=== PATIENT | female | born 1990 | race Caucasian/White ===

== ENCOUNTER 2020-08-14 10:50 | Emergency (ER) | payer MEDICAID, SELFPAY ==
[2020-08-14 10:51] VITALS: BP 157/111; PULSE 110; RESP 22; TEMP 36.4; O2SAT 98; BMI 30.2
--- NOTE | 2020-08-14 11:26 | ED.VISSUMM ---
- ER Visit Summary Date of Service: 08/14/20 Chief Complaint: Bartholin abscess History of Present Illness: The patient is a 29 F who presents with a Bartholin abscess that has been getting worse over the past 6 days. Patient states she has a history of these. Patient states she has been trying to get it to drain at home without any improvement. Patient describes her pain as sharp and burning. Patient states it is over the right labia. Patient states it is worse with sitting and with walking. Patient denies any fevers or chills. Patient denies any discharge or drainage. Patient denies any dysuria or hematuria. Physical Examination: Vital signs are stable. Patient is afebrile. Patient is in no acute distress. Oral mucosa is pink and moist. Neck is supple. Trachea is midline. There is no JVD noted. Heart was regular rate and rhythm. Lungs are clear and equal bilaterally. Abdomen is soft. Bowel sounds are normal. There is no tenderness. There is no rebound or guarding noted. Skin is warm dry. Cranial nerves II through XII are intact. There are no focal motor or sensory deficits noted. Extremities are intact. There is no calf tenderness or edema. Emergency Department Course and Treatment: Patient was given a dose of [place] and Keflex here. The right labia was anesthetized 1% lidocaine locally. A linear incision was made using a #11 blade scalpel. Copious amounts of purulent drainage was expressed. Patient tolerated the procedure well. Patient was instructed to use warm sitz baths. Patient was instructed to follow-up with her primary care physician in 5 to 7 days. Patient was given a prescription for Keflex. Patient understood and was agreeable with the plan. All questions were answered. Disposition: Discharge home Impression: 1. Bartholin abscess This note was generated with [employer] dictation software. It may contain incorrect words, spelling, and punctuation that were not noted in review of the chart prior to signing ED Disposition - Plan for ED Patient: Disposition: Home or Assisted Living Diagnosis: Abscess of right Bartholin's gland Instructions: ED Abscess Incision And Drainage Prescriptions: Cephalexin [Keflex] 500 mg PO Q6 #40 cap Transmission Status: Received by [id number] Referrals: Douglas Maria MD [STAFF PHYSICIAN] - 5-7 Days
[2020-08-14] MEDS: HYDROcodone Bitartrate/Apap 5/325 Tablet PO (11:36)
[2020-08-14] MEDS: Cephalexin 500 MG Capsule PO (11:37)
[2020-08-14] MEDS: Lidocaine 1% (20 ml mdv) 20 ML Vial INFILT (11:37)
[2020-08-14 13:40] VITALS: BP 119/90; PULSE 100; RESP 16
== END 2020-08-14 13:43 | disposition home or self-care (01) ==
PROVIDERS: Emergency Provider Emergency Medicine
DX: N75.1 Abscess of Bartholin's gland (principal); Z72.0 Tobacco use
CPT/HCPCS: 56420; 10060; 99283

== ENCOUNTER 2020-11-13 14:00 | Emergency (ER) | payer MEDICAID, SELFPAY ==
[2020-11-13 14:01] VITALS: BP 126/84; PULSE 145; RESP 18; TEMP 35.7; O2SAT 100; BMI 30.2
--- NOTE | 2020-11-13 14:13 | EDS_ITS ---
HPI History of Present Illness Chief Complaint: Abscess Detail of Chief Complaint: Bartholin cyst abscess Informant: patient Onset/Context/Timing Worsened by: Pressure and movement Narrative Narrative: Patient presents to the emergency department complaint of pain to the left labia. Patient has history of Bartholin cyst of the right side that has required drainage. Patient has never had an issue with the left side. Patient denies any fever or chills or sweats. Patient has otherwise no medical history. Prior similar symptoms: Yes PFSH PFSH Home Medications cephalexin 500 mg PO Q6 #40 cap 08/14/20 [Rx Last Taken Unknown] clindamycin HCl 300 mg PO 4X/DAY #80 capsule 11/13/20 [Rx Last Taken Unknown] Allergy/AdvReac Type Severity Reaction Status Date / Time BEES Allergy Anaphylaxis Uncoded 11/13/20 14:01 Surgical History (Updated 11/13/20 @ 14:28 by Maribell Sarah) History of partial hysterectomy Hx of tonsillectomy Social History Smoking Status: Current every day smoker ROS ROS ED Constitutional Constitutional ED: Reports systems reviewed and no addt'l complaints, except as documented; Denies body ache(s), change in weight or chills Eyes Eyes: Denies acute decrease in peripheral vision, change in vision, double vision or loss of vision ENT ENT ED: Reports none; Denies ear pain, lip swelling, loss taste/smell, neck pain, otalgia or sore throat Cardiovascular Cardiovascular: Reports none; Denies abdominal pain, chest pain with activity, leg edema, lightheadedness, palpitations, rapid heart rate or syncope Respiratory/Chest Respiratory/Chest: Reports none; Denies change in mental status, dry cough, dys pnea, hemoptysis, shortness of breath at rest or shortness of breath with exertion Gastrointestinal Gastrointestinal: Reports none; Denies abdominal pain, change in stool character, diarrhea, hematemesis, hematochezia, melena, rectal bleeding or vomiting Genitourinary Genitourinary ED: Reports none and other Details: Patient complaining of Bartholin cyst to left labia ; Denies abdominal discomfort, anuria, dysuria, genital pain or polyuria Musculoskeletal Musculoskeletal: Reports none; Denies arthralgias, back pain, difficulty walking, extremity pain, muscle weakness or myalgias Integumentary Reports none; Denies abscess or rash Neurologic Neurologic: Reports none; Denies abnormal gait, confusion, focal weakness, frequent falls, headache(s), loss of vision, numbness, paresthesias, radicular pain, vertigo or weakness Psychiatric Psychiatric: Reports systems reviewed and no addt'l complaints, except as documented and none; Denies behavioral changes, confusion, difficulty concentrating, hallucinations, suicidal ideation, tactile hallucinations or visual hallucinations Endocrine Endocrinology: Denies none, cold intolerance, excessive sweating, fatigue or heat intolerance Hematologic/Lymphatic Hematologic/Lymphatic: Reports none; Denies anemia, easy bleeding or easy bruising Allergic/Immunologic Allergic/Immunologic ED: Denies as per HPI, none, lip swelling, mouth swelling, throat swelling, tongue swelling or hives EXAM Physical Exam Const Vital Signs: 11/13/20 14:01 Temperature 96.2 F L Temperature Source Temporal Pulse Rate 145 H Respiratory Rate 18 Blood Pressure 126/84 H Blood Pressure Mean 98 Pulse Ox 100 Oxygen Delivery Method Room Air Positive well nourished and well developed General Appearance ED: well developed and NAD HEENT Reports TM's clear and moist mucous membranes normocephalic and atraumatic; Negative for trauma or tenderness Tympanic Membrane ED: Yes TM's clear Eyes PERRL and EOMs intact bilaterally General Eye ED: Negative for pale conjunctiva or scleral icterus Neck no lymphadenopathy, supple and no JVD General: Negative for tenderness Chest Wall inspection of chest normal and palpation of chest normal Chest: Negative for tenderness Resp normal respiratory effort and clear to auscultation bilaterally Effort and Inspection: Negative for respiratory distress or pain with movement Auscultation: Negative for rhonchi, wheezes or diminished lung sounds Cardio regular rate, regular rhythm, S1 normal heart sound, S2 normal heart sound and no murmurs Peripheral Pulses: pulses 2+ throughout GI normal to inspection, nondistended, normoactive bowel sounds, soft to palpation, non-tender, non-distended and no masses Bladder / Kidney Exam: other Patient does have a Bartholin cyst that is tender to the left labia. There are some induration and minimal fluctuance noted. There is erythema noted. Back/Spine no CVA tenderness and no thoracic nor lumbar tenderness Extremity normal to inspection General Extremety ED: Negative for edema General Extremity: Negative for edema Neuro oriented x3, CN's II-XII intact bilaterally, no sensory deficits noted and gait normal Sensorium / Orientation: awake, alert, oriented to person, oriented to place and oriented to time Motor Exam: strength 5/5 throughout and strength abnormal Psych mental status grossly normal Skin no rashes or lesions noted and no wounds Procedures Other Procedures Procedure(s): Incision and drainage of suspected Bartholin abscess-area sterilely draped and cleansed with [place]. Skin was anesthetized with 1% lidocaine total of 2 cc. Using an 11 blade a small 2 cm incision made along the suspected abscess and large amount of free-flowing purulent debris was expressed. After milking the area and expressing as much debris as we could the wound was irrigated and clean dressing applied. Patient taught procedure well. Discharge Plan Triage Chief Complaint: Abscess ED Provider: Ramon Peña Dx/Rx/DC Orders Clinical Impression: Bartholin cyst, Abscess Instructions: ED Abscess Incision And Drainage Prescriptions: New clindamycin HCl 150 MG capsule 300 mg PO 4X/DAY Qty: 80 RF: 0 No Action cephalexin 500 MG capsule 500 mg PO Q6 Qty: 40 RF: 0 Primary Care Provider: Care Physician,No Primary Referrals: Diana Escobar MD [STAFF PHYSICIAN] - 3-5 Days Care Physician,No Primary [Primary Care Provider] - Disposition Disposition: Home, self care
[2020-11-13] MEDS: Lidocaine 1% (20 ml mdv) 20 ML Vial 4 ML INFILT (14:16)
[2020-11-13 14:44] VITALS: PULSE 102; RESP 12
== END 2020-11-13 14:44 | disposition home or self-care (01) ==
LOC: ED 14:33
PROVIDERS: Emergency Provider Emergency Medicine
DX: N75.0 Cyst of Bartholin's gland (principal); F17.200 Nicotine dependence, unspecified, uncomplicated
CPT/HCPCS: 56420; 10060; 99282

== ENCOUNTER 2020-11-16 10:15 | Emergency (ER) | payer MEDICAID, SELFPAY ==
[2020-11-16] VITALS (7 sets, daily range): BP systolic 110–149; BP diastolic 76–97; PULSE 86–118; RESP 15–99; TEMP 36.6; O2SAT 20–100; BMI 30.2
--- NOTE | 2020-11-16 10:31 | EX.ED.DYSGE1 ---
HPI History of Present Illness Chief Complaint: Abscess Informant: patient Onset/Context/Timing Onset: Days Context: Sudden Onset Timing: Continuous Quality: Pain Location: Left labia Current Severity: Moderate Maximum Severity: Severe Worsened by: Movement Relieved by: Nothing Associated Symptoms Associated Symptoms: Swelling Narrative Narrative: Patient is a 30-year-old woman who was seen on Sunday. She states the abscess was drained. She denies fever, chills night sweats. She states that the abscess has reoccurred. It is swollen and very painful. She denies dysuria, frequency, urgency or hematuria. She denies vaginal discharge. She is on her menses. She did contact her [employer] who recommended she come to the emergency department. She denies history of diabetes. She has no symptoms of hyperglycemia. She has no true allergies to pain medicine. She had no complication with anesthetics. Prior similar symptoms: Yes Recent Illness/Hospitalization: Yes PFSH PFSH Home Medications cephalexin 500 mg PO Q6 #40 cap 08/14/20 [Rx Last Taken Unknown] clindamycin HCl 300 mg PO 4X/DAY #80 capsule 11/13/20 [Rx Last Taken Unknown] Allergy/AdvReac Type Severity Reaction Status Date / Time BEES Allergy Anaphylaxis Uncoded 11/16/20 10:18 Surgical History History of partial hysterectomy Hx of tonsillectomy Social History (Updated 11/16/20 @ 10:[address] Chato Newberry MD) household members: none current occupational exposures/hazards: No Smoking Status: Current every day smoker alcohol intake: current alcohol intake frequency: holidays/special occasions only substance use type: does not use ROS ROS ED Constitutional Constitutional ED: Denies chills, fever(s), subjective or sweats Eyes Eyes: Denies blurry vision or change in vision ENT ENT ED: Denies rhinorrhea or sore throat Cardiovascular Cardiovascular: Denies chest pain or palpitations Respiratory/Chest Respiratory/Chest: Denies cough, dyspnea or dyspnea on exertion Gastrointestinal Gastrointestinal: Denies abdominal pain, diarrhea, nausea or vomiting Genitourinary Genitourinary ED: Reports LMP (females 10-50) Details: Comment: (Now); Denies dysuria, hematuria or urinary frequency Musculoskeletal Musculoskeletal: Denies arthralgias, back pain, myalgias or neck pain Integumentary Reports abscess and rash Neurologic Neurologic: Denies headache(s) Endocrine Endocrinology: Denies polydipsia, polyphagia or polyuria EXAM Physical Exam Const Vital Signs: 11/16/20 10:16 11/16/20 10:27 11/16/20 11:29 Temperature 97.8 F Temperature Source Temporal Pulse Rate 86 105 H 110 H Pulse Rate [1 (Initial Baseline)] 118 H Pulse Rate [3] 111 H Pulse Rate [4] 114 H Respiratory Rate 15 20 H 20 H Respiratory Rate [1 (Initial Baseline)] 20 H Respiratory Rate [3] 24 H Respiratory Rate [4] 22 H Blood Pressure 149/97 H 125/93 H 115/83 H Blood Pressure [1 (Initial Baseline)] 110/96 H Blood Pressure [2] 122/76 H Blood Pressure [3] 122/78 H Blood Pressure [4] 115/83 H Blood Pressure Mean 114 Pulse Ox 100 99 99 Oxygen Delivery Method Room Air Room Air Nasal Cannula Oxygen Delivery Method [1 (Initial Baseline)] Nasal Cannula Oxygen Delivery Method [2] Nasal Cannula Oxygen Delivery Method [4] Nasal Cannula Oxygen Flow Rate (L/min) 2 Oxygen Flow Rate (L/min) [1 (Initial Baseline)] 2 11/16/20 11:34 11/16/20 11:39 11/16/20 11:45 Temperature Temperature Source Pulse Rate 107 H 112 H 99 Pulse Rate [1 (Initial Baseline)] Pulse Rate [3] Pulse Rate [4] Respiratory Rate 20 H 99 H 16 Respiratory Rate [1 (Initial Baseline)] Respiratory Rate [3] Respiratory Rate [4] Blood Pressure 112/80 135/86 H 116/81 H Blood Pressure [1 (Initial Baseline)] Blood Pressure [2] Blood Pressure [3] Blood Pressure [4] Blood Pressure Mean Pulse Ox 99 20 99 Oxygen Delivery Method Room Air Room Air Oxygen Delivery Method [1 (Initial Baseline)] Oxygen Delivery Method [2] Oxygen Delivery Method [4] Oxygen Flow Rate (L/min) Oxygen Flow Rate (L/min) [1 (Initial Baseline)] Positive well nourished, well developed and obese General Appearance ED: well developed and other Patient appears uncomfortable. Nutritional Appearance: obese HEENT HEENT Narrative: There is no asymmetry. Nares patent. There is no drainage. Eyes PERRL and EOMs intact bilaterally General Eye ED: Negative for pale conjunctiva or scleral icterus Neck no lymphadenopathy, supple and no JVD Chest Wall inspection of chest normal and palpation of chest normal Resp normal respiratory effort and clear to auscultation bilaterally Cardio regular rate, regular rhythm, S1 normal heart sound, S2 normal heart sound and no murmurs GI normal to inspection, nondistended, normoactive bowel sounds Narrative: Patient has a large left Bartholin abscess noted. There is erythema of the area. There is shotty left inguinal nodes noted. There is no lymphangitis. Back/Spine no CVA tenderness Lumbar Spine / Lower Back: Negative for lumbar spinal tenderness Extremity normal to inspection General Extremety ED: Negative for tenderness Neuro oriented x3, CN's II-XII intact bilaterally and no sensory deficits noted Sensorium / Orientation: alert Motor Exam: strength 5/5 throughout Psych mental status grossly normal Skin General Skin Exam: other Abscess left labia MDM MDM MDM Narrative Medical decision making narrative: Patient with a large Bartholin abscess. Patient states she is not had the eat in several days because of the pain. She is presently on cephalexin and clindamycin. Patient denies allergy to soy products or egg products. Patient denies history of complications with IV anesthetics. Since she arrived with her mother plan is procedural sedation using propofol and I&D of abscess. Patient was informed of need for incision and drainage of Bartholin abscess and placement of Word catheter. She was informed that this would best be done under IV anesthetic, propofol. Patient was explained risk benefits. Patient given opportunity ask questions. None were asked. Procedures Other Procedures Procedure(s): 1. Deep sedation using propofol 2. I&D of Bartholin abscess 3. Placement of [place] catheter Patient was informed of the risk benefits of using propofol. She has no contraindication. She had no prior complication with IV anesthetic. She was given opportunity ask questions and nod were asked. Patient was informed that she does have an abscess which required drainage. She was informed why a Word catheter was placed. She required a total of 200 mg of propofol. The abscess was drained from the vagina wall proximal to the introitus. There was significant brown thick odorous drainage. The [place] catheter was placed without difficulty. There was continued drainage. Patient tolerated procedure well with no complications. Start time 1118 End time 1127 Monitor reveals a sinus tachycardia at onset. There was no desaturation or hypotension. Monitor revealed a sinus tachycardia at completion of procedure. Discharge Plan Triage Chief Complaint: Abscess ED Provider: Chato Newberry Dx/Rx/DC Orders Clinical Impression: Abscess of left Bartholin's gland Instructions: ED Bartholin's Cyst (No Infection) Prescriptions: No Action cephalexin 500 MG capsule 500 mg PO Q6 Qty: 40 RF: 0 clindamycin HCl 150 MG capsule 300 mg PO 4X/DAY Qty: 80 RF: 0 Primary Care Provider: Care Physician,No Primary Referrals: Diana Escobar MD [STAFF PHYSICIAN] - 3-5 Days (Patient seen for Bartholin abscess with drainage and placement of Word catheter. She is presently on cephalexin and clindamycin.) Care Physician,No Primary [Primary Care Provider] - Activity Restrictions/Additional Instructions: The [place] catheter will need to remain in place for 4 to 6 weeks to form a tract to prevent future recurrence. Disposition Disposition: Home, self care
[2020-11-16] MEDS: Morphine 4 MG/ML Syringe IV (10:49)
[2020-11-16] MEDS: Ondansetron 4 MG/2 ML Vial IV (10:49)
--- NOTE | 2020-11-16 12:34 | CM.ED ---
NEAL Note Referral Source: Case Find Referral Reason: No PCP (Primary Care Doctor) NEAL reviewed ED tracker. Patient is listed as not having insurance. SW met with patient and her mother. Patient confirmed she lives in [place] and has no PCP. SW provided patient with list of PCP. Patient reports no other issues or needs. [place] JOHNSON
== END 2020-11-16 12:44 | disposition home or self-care (01) ==
PROVIDERS: Emergency Provider Emergency Medicine
DX: N75.1 Abscess of Bartholin's gland (principal); F17.200 Nicotine dependence, unspecified, uncomplicated; E66.9 Obesity, unspecified
CPT/HCPCS: 10060; 96374; 96375; 99152; 99284; J7030; J2405

== ENCOUNTER 2021-06-06 08:44 | Inpatient (IN) | payer MEDICAID, SELFPAY ==
[2021-06-06] VITALS (32 sets, daily range): BP systolic 59–125; BP diastolic 44–103; PULSE 61–113; RESP 14–35; TEMP 33.5–37.2; O2SAT 20–106; BMI 31.1
--- NOTE | 2021-06-06 09:12 | CT_ITS ---
STUDY: CT BRAIN WITHOUT CONTRAST REASON FOR EXAM: Female, 30 years old. Altered mental status RADIATION DOSAGE (If Supplied By Facility): CTDIvol = ( 44.99 ) mGy, DLP = ( 796.11 ) mGycm TECHNIQUE: Transaxial CT imaging of the brain was performed without administration of intravenous contrast material. Individualized dose optimization techniques were used for this CT. COMPARISON: No relevant priors. FINDINGS: Normal soft tissue structures. Normal calvarium. Normal size ventricles and extra-axial spaces for the patient''s age. Normal white matter tracts of the cerebral hemispheres. Normal basal ganglia and thalami. Normal brainstem. Normal cerebellum. There is no intracranial hemorrhage. There are no findings of an acute ischemic infarction. Normal visualized paranasal sinuses. CT/Brain/Head without Contrast IMPRESSION: Normal unenhanced CT scan of the brain. Electronically Signed: Lorne Foster MD (Brooks) at 12:45 EST , Service support ,
--- NOTE | 2021-06-06 09:12 | EKG12_ITS ---
Test Reason : INTOX Blood Pressure : / mmHG Vent. Rate : 107 BPM Atrial Rate : 107 BPM P-R Int : 104 ms QRS Dur : 090 ms QT Int : 182 ms P-R-T Axes : 084 006 186 degrees QTc Int : 242 ms Poor data quality, interpretation may be adversely affected Sinus tachycardia with short MI Inferior infarct , age undetermined Abnormal ECG Confirmed by CAMERON JENNINGS, EMILY ([id number]), scientific publications editor SABRINA MCCLELLAN ([id number]) on 06/09/2021 8:32:15 AM Referred By: ONEIDA Confirmed By:EMILY BARNES MD
--- NOTE | 2021-06-06 09:12 | RAD_ITS ---
STUDY: X-RAY CHEST REASON FOR EXAM: Female, 30 years old. PT FOUND BY MOTHER. NOT VERY RESPONSIVE. ETOH BOTTLES FGOUND ALL OVER ROOM. ACCU CHECK 112. MOTHER STATES DAUGHTER HAS HAD SINUS DRAINAGE AND SORE THROAT RECENTLY TECHNIQUE: AP COMPARISON: None. FINDINGS: Esophagogastric tube extends the left upper abdomen/stomach. Endotracheal tube terminates at the level of carlos. The lungs are clear and expanded. There is no demonstrated pleural abnormality. Normal size heart. Normal mediastinum and jared. Normal visualized pulmonary arteries. Normal visualized aortic arch and descending thoracic aorta. Normal visualized thoracic spine. Normal visualized ribs, clavicles, and shoulders. There is no demonstrated abnormality of the visualized soft tissue structures of the upper abdomen. RAD/Chest 1 View (Portable) IMPRESSION: Endotracheal tube terminates at the carlos. Recommend retracting 3.5 cm. Electronically Signed: Lorne Foster MD (Brooks) at 11:42 EST , Service support ,
--- NOTE | 2021-06-06 09:16 | EDS_ITS ---
HPI History of Present Illness Chief Complaint: General Illness Informant: parent Limited: stupor Onset/Context/Timing Onset: Days (2) Context: Gradual Onset Timing: Continuous Quality: Unresponsive Location: Generalized Current Severity: Severe Maximum Severity: Severe Narrative Narrative: Patient presents with being unresponsive. Mother states that the patient has not been feeling well over the last couple days. Mother states patient has been feeling weak and tired. Mother denies any fevers or chills. Mother states that the patient was feeling weak and having difficulty walking yesterday. Mother states that the patient did not want to come to the emergency department yesterday. Mother went to check on her again today and found her unresponsive. EMS noted there were several bottles of alcohol around her. Mother states that the patient is a hoarder but only drinks alcohol occasionally. Mother states patient was having some shortness of breath and sinus drainage over the last couple days. PFSH PFSH Medical History Alcohol abuse Home Medications NK 06/06/21 [History Last Taken Unknown] Allergy/AdvReac Type Severity Reaction Status Date / Time BEES Allergy Anaphylaxis Uncoded 11/16/20 10:18 Surgical History History of partial hysterectomy Hx of tonsillectomy Social History household members: none current occupational exposures/hazards: No Smoking Status: Current every day smoker tobacco type: cigarettes alcohol intake: current alcohol intake frequency: holidays/special occasions only substance use type: does not use ROS ROS ED Review of Systems ROS Unobtainable: due to mental status EXAM Physical Exam Const Vital Signs: 06/06/21 08:45 06/06/21 08:46 06/06/21 08:52 Temperature 96.5 F L 96.5 F L 97 F L Temperature Source Temporal Temporal Temporal Pulse Rate 111 H 111 H 111 H Respiratory Rate 20 H 20 H 22 H Respiratory Pattern Blood Pressure 125/103 H 125/103 H 125/96 H Blood Pressure Mean 110 110 105 Pulse Ox 100 100 99 Oxygen Delivery Method Room Air Room Air Room Air Fraction of Inspired Oxygen (FIO2) 06/06/21 09:55 06/06/21 10:30 06/06/21 11:04 Temperature 95.5 F L Temperature Source Temporal Pulse Rate 111 H 103 H Respiratory Rate 21 H 16 Respiratory Pattern Normal Blood Pressure 105/91 H Blood Pressure Mean 95 Pulse Ox 99 100 Oxygen Delivery Method Room Air Room Air Fraction of Inspired Oxygen (FIO2) 35 Positive unkempt General Appearance ED: unkempt HEENT Reports dry mucous membranes Mouth ED: Yes dry mucous membranes Mouth: dry mucous membranes Neck supple and no JVD Resp normal respiratory effort and clear to auscultation bilaterally Cardio regular rate and regular rhythm GI normal to inspection, nondistended, normoactive bowel sounds and non-tender Palpation: soft Extremity Extremity Narrative: There is some ecchymosis and mottling over the anterior aspects of the knees bilaterally. Pedal pulses are equal bilaterally. Neuro Sensorium / Orientation: stuporous Motor Exam: general weakness Psych Appearance: unkempt MDM MDM MDM Narrative Medical decision making narrative: EKG was obtained. On my interpretation, there is a sinus tachycardia with rate of 107. PA interval was 104. QRS and QTc intervals were normal. [place] was normal. There are no acute ST or T wave changes. Venous blood gas showed a pH of 6.771 with a bicarb of 3.3 and a base excess of less than -30. Patient was given 2 amps of sodium bicarbonate. Patient was started on a sodium bicarbonate drip. CBC shows a leukocytosis of 22.2, hemoglobin was 16.6, hematocrit 49.1, platelets were 567. Urinalysis shows leukocyte esterase of 100. There were 5-10 white blood cells and 2+ bacteria. There is 4+ yeast. Urinary ketones were 150. Comprehensive metabolic profile showed elevated glucose of 580. Potassium was 2.4. CO2 was 5. Anion gap was 28. BUN was 24 and creatinine was 1.6. Total CK was 30. Initial high-sensitivity troponin was 4. Serum alcohol level was normal. Urine tox screen was negative. Ammonia level was elevated at 54. Serum ketones were moderate. Because of the severe acidosis, I discussed with the mother the options of intubation. She is agreeable to proceed with intubation. Risks and benefits were discussed. Mother was given opportunity ask questions. She had no further questions. Patient was given etomidate and rocuronium. Patient was intubated with a 7.5 ET tube to 24 cm at the lip. Portable chest x-ray was obtained. There is 1 view. On my interpretation, there is no acute cardiopulmonary process. The endotracheal tube is at the carlos. The orogastric tube is in the stomach. The endotracheal tube will be withdrawn 2 cm. Case was discussed with Dr. Howard from ICU. He had no further recommendations. Case was discussed with Dr. Mace, hospitalist. He will admit the patient to ICU. Family understood and was agreeable with the plan. All questions were answered. Lab Data Attestation: I reviewed the patient's lab results. Labs: Laboratory Results - last 24 hr 06/06/21 06/06/21 06/06/21 09:10 09:10 09:10 WBC 22.2 H RBC 5.55 H Hgb 16.6 H Hct 49.1 H MCV 88.5 MCH 29.9 MCHC 33.8 RDW Std Deviation 57.5 H RDW Coeff of Bret 18.0 H Plt Count 567 H MPV 11.0 Immature Gran % (Auto) 0.800 Neut % (Auto) 88.2 H Lymph % (Auto) 3.8 L [place] % (Auto) 6.3 Eos % (Auto) 0.0 Baso % (Auto) 0.9 Absolute Neuts (auto) 19.6 H Absolute Lymphs (auto) 0.84 Nucleated RBC % 0.1 PT INR APTT Sodium 136 Potassium 2.4 L* Chloride 103 Carbon Dioxide 5.0 L* Anion Gap 28 H BUN 24 H Creatinine 1.60 H Estim Creat Clear Calc 38.44 Est GFR (MDRD) Af Amer 48 L Est GFR (MDRD) Non-Af 40 L BUN/Creatinine Ratio 15.0 Glucose 580 H* Lactic Acid Calcium 9.8 Total Bilirubin 0.40 AST 9 L ALT 14 Alkaline Phosphatase 195 H Ammonia Total Creatine Kinase 30 Troponin I High Sens 4 Total Protein 8.3 H Albumin 3.1 L Globulin 5.2 H Albumin/Globulin Ratio 0.6 L TSH 0.52 Urine Color Urine Clarity Urine pH Ur Specific [place] Urine Protein Urine Glucose (UA) Urine Ketones Urine Occult Blood Urine Nitrite Urine Bilirubin Urine Urobilinogen Ur Leukocyte Esterase Urine RBC Urine WBC Ur Squamous Epith Cells Urine Bacteria Urine Mucus Urine Yeast Urine Opiates Screen Urine Methadone Screen Ur Barbiturates Screen Ur Phencyclidine Scrn Ur Amphetamines Screen U Methamphetamin-MDMA U Benzodiazepines Scrn Urine Cocaine Screen U Cannabinoids Screen Ur Drug Screen Comment Ethyl Alcohol < 3.0 Acetone Level 06/06/21 06/06/21 06/06/21 09:10 09:35 09:35 WBC RBC Hgb Hct MCV MCH MCHC RDW Std Deviation RDW Coeff of Bret Plt Count MPV Immature Gran % (Auto) Neut % (Auto) Lymph % (Auto) [place] % (Auto) Eos % (Auto) Baso % (Auto) Absolute Neuts (auto) Absolute Lymphs (auto) Nucleated RBC % PT INR APTT Sodium Potassium Chloride Carbon Dioxide Anion Gap BUN Creatinine Estim Creat Clear Calc Est GFR (MDRD) Af Amer Est GFR (MDRD) Non-Af BUN/Creatinine Ratio Glucose Lactic Acid Calcium Total Bilirubin AST ALT Alkaline Phosphatase Ammonia Total Creatine Kinase Troponin I High Sens Total Protein Albumin Globulin Albumin/Globulin Ratio TSH Urine Color Yellow Urine Clarity Cloudy Urine pH 6.0 Ur Specific [place] 1.020 Urine Protein 100 H Urine Glucose (UA) 1000 H Urine Ketones 150 A* Urine Occult Blood 25 H Urine Nitrite Negative Urine Bilirubin Negative Urine Urobilinogen Normal Ur Leukocyte Esterase 100 H Urine RBC 0-5 SEEN Urine WBC 5-10 SEEN Ur Squamous Epith Cells 0-5 SEEN Urine Bacteria 2+ Urine Mucus 0 SEEN Urine Yeast 4+ Urine Opiates Screen NEGATIVE Urine Methadone Screen NEGATIVE Ur Barbiturates Screen NEGATIVE Ur Phencyclidine Scrn NEGATIVE Ur Amphetamines Screen NEGATIVE U Methamphetamin-MDMA NEGATIVE U Benzodiazepines Scrn NEGATIVE Urine Cocaine Screen NEGATIVE U Cannabinoids Screen NEGATIVE Ur Drug Screen Comment Ethyl Alcohol Acetone Level MODERATE H 06/06/21 06/06/21 06/06/21 10:10 10:41 10:41 WBC RBC Hgb Hct MCV MCH MCHC RDW Std Deviation RDW Coeff of Bret Plt Count MPV Immature Gran % (Auto) Neut % (Auto) Lymph % (Auto) [place] % (Auto) Eos % (Auto) Baso % (Auto) Absolute Neuts (auto) Absolute Lymphs (auto) Nucleated RBC % PT Cancelled INR Cancelled APTT Cancelled Sodium Potassium Chloride Carbon Dioxide Anion Gap BUN Creatinine Estim Creat Clear Calc Est GFR (MDRD) Af Amer Est GFR (MDRD) Non-Af BUN/Creatinine Ratio Glucose Lactic Acid Cancelled Calcium Total Bilirubin AST ALT Alkaline Phosphatase Ammonia 54.0 H Total Creatine Kinase Troponin I High Sens Total Protein Albumin Globulin Albumin/Globulin Ratio TSH Urine Color Urine Clarity Urine pH Ur Specific [place] Urine Protein Urine Glucose (UA) Urine Ketones Urine Occult Blood Urine Nitrite Urine Bilirubin Urine Urobilinogen Ur Leukocyte Esterase Urine RBC Urine WBC Ur Squamous Epith Cells Urine Bacteria Urine Mucus Urine Yeast Urine Opiates Screen Urine Methadone Screen Ur Barbiturates Screen Ur Phencyclidine Scrn Ur Amphetamines Screen U Methamphetamin-MDMA U Benzodiazepines Scrn Urine Cocaine Screen U Cannabinoids Screen Ur Drug Screen Comment Ethyl Alcohol Acetone Level ABG Data ABG results: ABG 06/06/21 10:14 Specimen Type BETHANY VBG pH 6.77 L* VBG pO2 48 H VBG Total CO2 < 5 L VBG O2 Sat (Calc) 47 L VBG Base Excess < -30 L POC Mix VBG pCO2 Pt Tmp 22.9 L O2 Delivery Device Room Air Crit Call To/Read Back Yes Radiography Chest X-Ray - ED: 1 View, Read by ED Physician, Read by Radiologist, No Acute Disease and - (Endotracheal tube is at the level of the carlos. Orogastric tube is into the stomach.) EKG Initial EKG: Attestation: I personally reviewed and interpreted this EKG as follows: Interpretation: Sinus Rhythm (107) and No Acute Injury Pattern Critical Care Time Critical Care Time: Yes Critical care time (excluding procedures): 30-74 minutes (41), Including time spent:, Discussing w/Patient &/or Family/Electronic Commerce Specialist, Discussing w/Consultants, Arranging Admission or Transfer and Performing Direct Patient Care at Bedside Discharge Plan Dx/Rx/DC Orders Clinical Impression: Diabetic ketoacidosis, Hypokalemia, Acute kidney injury, Hyperammonemia, Leukocytosis Disposition Disposition: Acute Care [facility]
[2021-06-06] MEDS: 0.9% Normal Saline 1,000 ML 999 ML IV ×3 (09:57→20:20)
[2021-06-06 09:58] LABS: Mucous, Urine 0 SEEN /hpf (<or=2+)
[2021-06-06 09:59] LABS: Absolute Lymphocyte Count 0.84 X10^3/uL (0.83-4.51); Absolute Neutrophil Count 19.6 X10^3/uL (2.0-7.7); Basophil# 0.19 X10^3/uL; Basophil% 0.9 % (0-1); Hematocrit 49.1 % (37-47); Hemoglobin 16.6 g/dL (12.0-15.0); Lymphocyte # 0.84 X10^3/ul (0.83-4.51); Lymphocyte % 3.8 % (19-41); Mean Corp Hgb Conc 33.8 g/dL (32-36); Mean Corpuscular Hgb 29.9 pg (27.0-32.0); Mean Corpuscular Volume 88.5 fL (81-99); Monocyte% 6.3 % (0-10); NRBC Flagged by Analyzer 0.1 % (0-5); Neutrophil # 19.59 X10^3/uL (2.7-7.7); Neutrophil % 88.2 % (47-70); Platelet Count 567 K/mm3 (150-450); RBC Distribution Width SD 57.5 fl (35.1-43.9); Red Blood Count 5.55 M/mm3 (4.2-5.4); White Blood Count 22.2 K/mm3 (4.4-11.0)
[2021-06-06 10:11] LABS: Alcohol, Blood (Medical)-Serum < 3.0 mg/dL
--- NOTE | 2021-06-06 10:20 | CPS ---
Critical values on VBG. Dr fernandez notified
[2021-06-06 10:25] LABS: Color, Urine Yellow (Yellow); Glucose, Dipstick 1000 mg/dl (Normal); Leukocyte Esterase-Dipstick 100 /ul (Negative); Nitrite-Dipstick Negative (Negative); Occult Blood-Urine 25 /ul (Negative); Protein-Dipstick 100 mg/dl (Negative); Urine Bilirubin Dipstick Negative (Negative); Urine Clarity Cloudy (Clear); Urine Urobilinogen Normal (Normal)
[2021-06-06 10:27] LABS: Ketone-Dipstick 150 mg/dl (Negative)
[2021-06-06 10:30] LABS: Bacteria 2+ /hpf (None Seen); Red Blood Cells-Urine 0-5 SEEN /hpf (0-5); Squamous Epithelial Cells - UA 0-5 SEEN /hpf (5-10); White Blood Cells 5-10 SEEN /hpf (0-5)
[2021-06-06 10:31] LABS: Yeast-Urine 4+ /hpf (None Seen)
[2021-06-06 10:41] LABS: ALB/GLOB Ratio 0.6 RATIO (0.9-2.4); AST(SGOT) 9 U/L (15-37); Alanine Aminotransfer ALT/SGPT 14 U/L (13-56); Albumin, Serum 3.1 g/dL (3.2-5.0); Alkaline Phosphatase 195 U/L (45-117); Anion Gap 28 (5-15); BUN 24 mg/dL (7-18); CPK Total, Creatine Kinase 30 U/L (26-192); Calcium,Total 9.8 mg/dL (8.5-10.1); Chloride 103 mmol/L (98-107); EST Glomerular Filtration Rate 40 mL/min (>60); Est Glom Filt Rate - Afr Amer 48 mL/min (>60); Estimated Creatinine Clearance 38.44 ml/min; Globulin 5.2 g/dL (2.2-4.2); Glucose 580 mg/dL (74-106); Potassium 2.4 mmol/L (3.5-5.1); Protein, Total 8.3 g/dL (6.4-8.2); Sodium Level 136 mmol/L (136-145); Thyroid Stim Hormone (TSH) 0.52 uIU/mL (0.358-3.74); Troponin-I HS 4 pg/mL (3.0-54.0)
[2021-06-06] MEDS: Rocuronium Bromide 50 MG/5 ML Vial 29 MG IV (10:59)
[2021-06-06] MEDS: Etomidate 20 MG/10 ML Vial IV (11:00)
[2021-06-06 11:09] LABS: Blood Gas Specimen Type VEN; O2 Delivery Device Room Air; VBG BASE EXCESS < -30 mmol/L (-1.0-3.5); VBG PO2 48 mmHg (25-40); VBG SO2 47 % (50-70); VBG TCO2 < 5 mmol/L (23-33); VBG pCO2 22.9 mmHg (41-51); VBG pH 6.77 (7.32-7.42)
--- NOTE | 2021-06-06 11:30 | HP.PCM.HOS_ITS ---
HPI - General General Date of Admission: 06/06/21 HPI Narrative BRETT RICO, is a 30 F who who was found unresponsive on the morning of her admission by her mother. The EMS squad was called. Patient was apparently found with bottles of alcohol around her. Per patient's mother patient had recently complained of sinus drainage and sore throat. Had been diagnosed with COVID-19 in March 2021. Patient is unvaccinated. In the emergency department patient was found to be in diabetic ketoacidosis with significant acidosis with pH of 6.7., Anion gap of 27 potassium of 2.2. Patient was started on aggressive IV fluid resuscitation insulin drip and bicarb drip. With patient not protecting her airway decision was made to intubate patient prior to being transferred to the intensive care unit [facility] Medical History Alcohol abuse Home Medications NK 06/06/21 [History Last Taken Unknown] Allergy/AdvReac Type Severity Reaction Status Date / Time BEES Allergy Anaphylaxis Uncoded 11/16/20 10:18 Family History Grandmother Diabetes Surgical History History of partial hysterectomy Hx of tonsillectomy Social History household members: none current occupational exposures/hazards: No Smoking Status: Current every day smoker tobacco type: cigarettes alcohol intake: current alcohol intake frequency: holidays/special occasions only substance use type: does not use ROS Review of Systems ROS Unobtainable: due to encephalopathy, due to endotracheal tube and due to mental status Vital Signs Vital Signs Vital Signs: 06/06/21 08:45 06/06/21 08:46 06/06/21 08:52 Temperature 96.5 F L 96.5 F L 97 F L Temperature Source Temporal Temporal Temporal Pulse Rate 111 H 111 H 111 H Respiratory Rate 20 H 20 H 22 H Blood Pressure 125/103 H 125/103 H 125/96 H Blood Pressure Mean 110 110 105 Pulse Ox 100 100 99 Oxygen Delivery Method Room Air Room Air Room Air 06/06/21 09:55 06/06/21 10:30 Temperature 95.5 F L Temperature Source Temporal Pulse Rate 111 H Respiratory Rate 21 H Blood Pressure 105/91 H Blood Pressure Mean 95 Pulse Ox 99 Oxygen Delivery Method Room Air Room Air Weight Weight: 74.843 kg Body Mass Index (BMI) 31.1 Physical Exam Narrative GENERAL: Patient on the vent HEENT: Atraumatic; EYES; Anicteric, Normal Conjunctiva NECK; supple, normal thyroid, RESPIRATORY: Diminished to auscultation CARDIOVASCULAR: Regular S1 S2, tachycardic GI: soft, normoactive bowel sounds, : No Renal angle tenderness; EXTREMITIES: No edema, no clubbing, MUSCULOSKELETAL: no muscle waisting NEURO: Unable to assess due to patient being on the vent SKIN: No Rash Results Lab / Micro Data Result Diagrams: 06/06/21 09:10 06/06/21 11:48 Labs: Laboratory Results - last 24 hr 06/06/21 09:10: WBC 22.2 H, RBC 5.55 H, Hgb 16.6 H, Hct 49.1 H, MCV 88.5, MCH 29.9, MCHC 33.8, RDW Std Deviation 57.5 H, RDW Coeff of Bret 18.0 H, Plt Count 567 H, MPV 11.0, Immature Gran % (Auto) 0.800, Neut % (Auto) 88.2 H, Lymph % (Auto) 3.8 L, [place] % (Auto) 6.3, Eos % (Auto) 0.0, Baso % (Auto) 0.9, Absolute Neuts (auto) 19.6 H, Absolute Lymphs (auto) 0.84, Nucleated RBC % 0.1 06/06/21 09:10: Sodium 136, Potassium 2.4 L*, Chloride 103, Carbon Dioxide 5.0 L*, Anion Gap 28 H, BUN 24 H, Creatinine 1.60 H, Estim Creat Clear Calc 38.44, Est GFR (MDRD) Af Amer 48 L, Est GFR (MDRD) Non-Af 40 L, BUN/Creatinine Ratio 15.0, Glucose 580 H*, Calcium 9.8, Total Bilirubin 0.40, AST 9 L, ALT 14, Alkaline Phosphatase 195 H, Total Creatine Kinase 30, Troponin I High Sens 4, Total Protein 8.3 H, Albumin 3.1 L, Globulin 5.2 H, Albumin/Globulin Ratio 0.6 L , TSH 0.52 06/06/21 09:10: Ethyl Alcohol < 3.0 06/06/21 09:10: Acetone Level MODERATE H 06/06/21 09:35: Urine Color Yellow, Urine Clarity Cloudy, Urine pH 6.0, Ur Specific [place] 1.020, Urine Protein 100 H, Urine Glucose (UA) 1000 H, Urine Ketones 150 A*, Urine Occult Blood 25 H, Urine Nitrite Negative, Urine Bilirubin Negative, Urine Urobilinogen Normal, Ur Leukocyte Esterase 100 H, Urine RBC 0-5 SEEN, Urine WBC 5-10 SEEN, Ur Squamous Epith Cells 0-5 SEEN, Urine Bacteria 2+, Urine Mucus 0 SEEN, Urine Yeast 4+ 06/06/21 09:35: Ur Drug Screen Comment 06/06/21 10:10: Ammonia 54.0 H 06/06/21 10:41: PT Cancelled, INR Cancelled, APTT Cancelled 06/06/21 10:41: Lactic Acid Cancelled Micro: Microbiology 06/06/21 09:25 Nasal Secretion SARS-CoV-2 Antigen (Rapid) - Final ABG Data ABG results: ABG 06/06/21 10:14 Specimen Type BETHANY VBG pH 6.77 L* VBG pO2 48 H VBG Total CO2 < 5 L VBG O2 Sat (Calc) 47 L VBG Base Excess < -30 L POC Mix VBG pCO2 Pt Tmp 22.9 L O2 Delivery Device Room Air Crit Call To/Read Back Yes Assessment & Plan Assessment/Plan (1) Diabetic ketoacidosis: (2) Hypokalemia: (3) Acute kidney injury: (4) Hyperammonemia: (5) Leukocytosis: PLAN: Patient is a 30-year-old lady brought in with altered mental status 1. Acute metabolic encephalopathy ?Secondary to DKA admitted to the intensive care unit for subsequent management Diabetic ketoacidosis ?New onset diabetes. Patient presented with significant acidosis with pH of 6.7 and bicarb of 6. Admitted to the intensive care unit where patient has been managed with aggressive IV fluid resuscitation, correction of electrolytes, administration of IV insulin and serial monitoring of patient progress with every 4 BMPs 3. Acute respiratory failure ?Due to patient's significant encephalopathy. Patient was intubated in the ED to protect her airway admitted to the intensive care unit. Subsequent vent management deferred to pulmonary/intensive care medicine 4. Leukocytosis ?No evidence of infection at this point do suspect reactive leukocytosis from above 5. Acute kidney injury ?Secondary to severe DKA on IV fluid with subsequent monitoring of electrolyte 6. Alcohol dependence ?Per patient's mom 7. Tobacco dependence ?Per patient's mom 8. Severe hypokalemia ?Secondary to DKA aggressive repletion initiated 9. DVT prophylaxis ?Lovenox Total CC time spent evaluating patient review of lab subsequent discussion with nursing and other consulting physicians on the case and subsequent review of patient's progress since adjustment in therapy; 75 minutes Advance planning; did discuss with the patient's mother regarding advanced directives as well as CODE STATUS. Did explain the various scenarios involved ( FULL CODE, DNR CCA, DNR CCA with no intubation, and DNR CC and what each meant) patient's mother requested for patient to remain full code. Time spent on discussion 18 minutes. Charges/Coding Procedures Hospitalists Procedures: 78759 Advncd Care Plan 30 Min Multi Select Codes Hospitalists' Procedures Procedures: 63884 Critial Care 1st Hr and 97895 Critial Care Addl 30 Min
[2021-06-06 11:32] LABS: Amphetamine Urine VISTA NEGATIVE (<1000 ng/mL); Barbiturate Urine VISTA NEGATIVE (< 200 ng/mL); Benzodiazepine Urine VISTA NEGATIVE (< 200 ng/mL); Cocaine Urine VISTA NEGATIVE (< 300 ng/mL); Ecstacy Urine VISTA NEGATIVE (< 500 ng/mL); Methadone Urine VISTA NEGATIVE (< 300 ng/mL); PCP Urine VISTA NEGATIVE (< 25 ng/mL); THC Urine VISTA NEGATIVE (< 50 ng/mL)
[2021-06-06] MEDS: Sodium Bicarbonate 8.4% 50 ML Syringe 100 MEQ IV (11:38)
[2021-06-06 11:41] LABS: International Normalized Ratio 1.3; Prothrombin Time (Protime)PT. 15.6 SECONDS (11.7-14.9)
[2021-06-06 11:42] LABS: Partial Thromboplast Time 39.6 Seconds (24.1-36.2)
[2021-06-06 11:52] LABS: Troponin-I HS 3 pg/mL (3.0-54.0)
[2021-06-06] MEDS: Potassium Chloride 10mEq/100mL 10 MEQ/100 ML IV.SOLN. 100 MEQ IV BOLUS ×10 (11:56→23:07)
[2021-06-06 12:03] LABS: VBG Bicarbonate 3 mmol/L (22-26)
[2021-06-06 12:08] LABS: Vista UDS pH Range 5
[2021-06-06 12:40] LABS: Anion Gap 27 (5-15); BUN 25 mg/dL (7-18); BUN/Creat Ratio 15.3 RATIO (10-20); Calcium,Total 9.2 mg/dL (8.5-10.1); Chloride 108 mmol/L (98-107); Creatinine, Serum 1.63 mg/dL (0.55-1.02); EST Glomerular Filtration Rate 39 mL/min (>60); Est Glom Filt Rate - Afr Amer 47 mL/min (>60); Estimated Creatinine Clearance 37.74 ml/min; Glucose 574 mg/dL (74-106); Potassium 2.2 mmol/L (3.5-5.1); Sodium Level 141 mmol/L (136-145)
[2021-06-06] MEDS: Lactated Ringers 1,000 ML 999 ML IV ×2 (13:00→14:08)
[2021-06-06 13:06] LABS: Allen Test Positive; Base Excess -24 mmol/L (-2 to +2); Bicarbonate 6.8 mmol/L (22-26); Blood Gas Specimen Type ART; FI02 21; Mode AC; O2 Delivery Device Adult Vent; PEEP 5; PO2 88 mmHG (75-100); RR 16; SITE R Radial; SO2 92 % (95-99); Total Carbon Dioxide 8 mmol/L; Vt 350; pCO2 24.5 mmHg (35-45); pH 7.05 (7.35-7.45)
[2021-06-06 13:15] LABS: Bedside Glucose > 500 mg/dL (70-110)
[2021-06-06] MEDS: Potassium Chloride Oral Soln 20 MEQ/15 ML UDC 40 MEQ PO ×2 (13:57→17:48)
[2021-06-06 13:59] LABS: Internal QC Validated? YES +Cl - CLEAR BKGD; Pregnancy, Urine Negative Negative
[2021-06-06 14:15] LABS: Bedside Glucose 474 mg/dL (70-110)
[2021-06-06 15:10] LABS: Bedside Glucose 450 mg/dL (70-110)
[2021-06-06] MEDS: 0.9% Normal Saline 1,000 ML 500 ML IV (16:14)
[2021-06-06 16:16] LABS: Bedside Glucose 410 mg/dL (70-110)
--- NOTE | 2021-06-06 16:30 | EX.PCM.CONCC ---
Assessment & Plan Assessment/Plan (1) Diabetic ketoacidosis: (2) Acute kidney injury: (3) Acute respiratory failure: PLAN: RECOMMENDATIONS: 1. Discontinue bicarbonate drip. No further bicarbonate. 2. Aggressive fluid resuscitation 3. Insulin per DKA protocol 4. Continue mechanical ventilation overnight 5. Initiate sedation if necessary IMPRESSIONS: 1. Diabetic ketoacidosis with coma Patient reportedly does not carry a diagnosis of DKA. Patient with significant acidosis on presentation. We will continue with DKA protocol. Patient should not be given bicarbonate. Aggressive correction of electrolytes have been ordered. Patient will need diabetic teaching. 2. Acute respiratory failure secondary to problem #1 Concerns for protecting airway led to intubation in the ER. Patient appears to be doing okay on minimal vent settings at this time. We will continue to address problem #1. Spontaneous breathing and awakening trials per protocol. Anticipate relatively brief intubation if patient responds appropriately. 3. Acute kidney injury/pseudohyponatremia/hypokalemia Clinical suspicion for prerenal etiology. Patient appeared to be significantly volume depleted on presentation. We will continue to monitor electrolytes and replete as necessary. Telemetry is in place. Unclear if patient has an element of refeeding risk given reported history of alcohol dependence. 4. Reported alcohol and tobacco dependence Complicates care, management, recovery and prognosis. Nicotine patch can be offered following extubation. Patient did have hyperammonemia of unclear etiology. Will recheck this if patient is not responding appropriately. TIME: 37 minutes critical care time spent addressing patient's new onset diabetes, DKA, coma, acute respiratory failure, acute kidney injury, review of all data and collaboration with care team. HPI Consult Data Date of Consult: 06/06/21 HPI Narrative HPI Narrative: BRETT RICO is a 30 F, with past medical history listed below, who presents to [facility] 06/06/2021 secondary to unresponsiveness. Patient reportedly had not been feeling well over the last 2 to 3 days. Patient reportedly had complained of feeling weak and tired, but denied any fevers, chills, nausea or vomiting. Mother had recommended that she come to the ER yesterday, but patient refused. Patient's mother went to check on her today and found her unresponsive. There was reportedly several bottles of alcohol in the area per EMS, but mother had reported that she is a hoarder and does not throw away her trash. Sheath believes that she drinks only moderately. Patient reportedly had had some sinus drainage. It is unclear if patient follows with a PCP at baseline. In the ER, patient was afebrile, but tachycardic at 111 bpm. Patient was also tachypneic as high as 22 breaths/min despite saturating 100% on room air. Patient was normotensive. ER staff noted dry mucous membranes and tachycardia. Laboratory work-up showed a white blood cell count of 22.2, hemoglobin of 16.6 and a platelet count of 567. Chemistry showed a potassium of 2.4, bicarb of 5, creatinine of 1.6 and a glucose of 580. Patient's alkaline phosphatase was elevated at 195, but other liver enzymes were unremarkable. Alcohol level was undetectable. Patient did have some bacteria in her urine along with ketones. Tox screen was negative, but ammonia was elevated at 54. A VBG showed a pH of 6.77. Given patient's mental status, patient was intubated for airway protection by the ER staff without complication. Patient was given 1 L of IV fluids, insulin drip, 20 mEq of potassium, initiated on a bicarb drip and admitted to the intensive care unit. Patient was initially evaluated in the intensive care unit at approximately noon. Bicarbonate drip was discontinued. Patient was given 2 L of lactated Ringer's and then started on a DKA protocol. Sedation was initiated. Patient was noted to have some random movements without purpose. Patient did have some mottling noted of the lower extremities with questionable bruising of the knees. No other signs of trauma was appreciated. Patient reportedly does not have a history of diabetes mellitus. Unable to obtain a review of systems secondary to patient's encephalopathy. [facility] Medical History Alcohol abuse Medical History unable to obtain Home Medications NK 06/06/21 [History Last Taken Unknown] Allergy/AdvReac Type Severity Reaction Status Date / Time BEES Allergy Anaphylaxis Uncoded 11/16/20 10:18 Family History Grandmother Diabetes Family History unable to obtain Surgical History History of partial hysterectomy Hx of tonsillectomy Surgical History unable to obtain Social History household members: none current occupational exposures/hazards: No Smoking Status: Current every day smoker tobacco type: cigarettes alcohol intake: current alcohol intake frequency: holidays/special occasions only substance use type: does not use ROS Review of Systems ROS Unobtainable: due to encephalopathy and due to endotracheal tube Physical Exam Const Constitutional Narrative: Appears older than stated age. Good vent synchrony. General Appearance: patient mechanically ventilated Orientation / Consciousness: obtunded HEENT normocephalic and head/scalp atraumatic HEENT Narrative: Dry mucous membranes Mouth: endotracheal tube in place and OG tube in place Eyes Eyes Narrative: Pupils are sluggish but reactive. No scleral icterus or injection noted Neck no JVD Lymph Lymphatic: no lymphadenopathy noted Chest inspection of chest normal Chest: symmetrical chest wall rise; Negative for crepitus Resp normal respiratory effort and no use of accessory muscles Auscultation: Negative for rales, rhonchi or wheezes Percussion: Negative for dullness Cardio regular rhythm, S1 normal heart sound, S2 normal heart sound, no murmurs, no rub, no gallops and no JVD Rate: tachycardic GI normal to inspection, nondistended, normoactive bowel sounds GI Narrative: Abdominal aorta palpable, but not enlarged Extremity no clubbing, cyanosis or edema Skin General Skin Exam: mottling Neuro Sensorium / Orientation: sedated on vent Psych Mood & Affect: flat affect Lab / Micro Data Result Diagrams: 06/06/21 09:10 06/06/21 11:48 Labs: Laboratory Results - last 24 hr 06/06/21 09:10: WBC 22.2 H, RBC 5.55 H, Hgb 16.6 H, Hct 49.1 H, MCV 88.5, MCH 29.9, MCHC 33.8, RDW Std Deviation 57.5 H, RDW Coeff of Bret 18.0 H, Plt Count 567 H, MPV 11.0, Immature Gran % (Auto) 0.800, Neut % (Auto) 88.2 H, Lymph % (Auto) 3.8 L, [place] % (Auto) 6.3, Eos % (Auto) 0.0, Baso % (Auto) 0.9, Absolute Neuts (auto) 19.6 H, Absolute Lymphs (auto) 0.84, Nucleated RBC % 0.1 06/06/21 09:10: Sodium 136, Potassium 2.4 L*, Chloride 103, Carbon Dioxide 5.0 L*, Anion Gap 28 H, BUN 24 H, Creatinine 1.60 H, Estim Creat Clear Calc 38.44, Est GFR (MDRD) Af Amer 48 L, Est GFR (MDRD) Non-Af 40 L, BUN/Creatinine Ratio 15.0, Glucose 580 H*, Calcium 9.8, Total Bilirubin 0.40, AST 9 L, ALT 14, Alkaline Phosphatase 195 H, Total Creatine Kinase 30, Troponin I High Sens 4, Total Protein 8.3 H, Albumin 3.1 L, Globulin 5.2 H, Albumin/Globulin Ratio 0.6 L, TSH 0.52 06/06/21 09:10: Ethyl Alcohol < 3.0 06/06/21 09:10: Acetone Level MODERATE H 06/06/21 09:35: Urine Color Yellow, Urine Clarity Cloudy, Urine pH 6.0, Ur Specific [place] 1.020, Urine Protein 100 H, Urine Glucose (UA) 1000 H, Urine Ketones 150 A*, Urine Occult Blood 25 H, Urine Nitrite Negative, Urine Bilirubin Negative, Urine Urobilinogen Normal, Ur Leukocyte Esterase 100 H, Urine RBC 0-5 SEEN, Urine WBC 5-10 SEEN, Ur Squamous Epith Cells 0-5 SEEN, Urine Bacteria 2+, Urine Mucus 0 SEEN, Urine Yeast 4+ 06/06/21 09:35: Urine Opiates Screen NEGATIVE, Urine Methadone Screen NEGATIVE, Ur Barbiturates Screen NEGATIVE, Ur Phencyclidine Scrn NEGATIVE, Ur Amphetamines Screen NEGATIVE, U Methamphetamin-MDMA NEGATIVE, U Benzodiazepines Scrn NEGATIVE, Urine Cocaine Screen NEGATIVE, U Cannabinoids Screen NEGATIVE, Ur Drug Screen Comment 06/06/21 10:10: Ammonia 54.0 H 06/06/21 10:41: PT Cancelled, INR Cancelled, APTT Cancelled 06/06/21 10:41: Lactic Acid Cancelled 06/06/21 11:15: Troponin I High Sens 3 06/06/21 11:15: Lactic Acid 1.0 06/06/21 11:15: PT 15.6 H, INR 1.3, APTT 39.6 H 06/06/21 11:48: Sodium 141, Potassium 2.2 L*, Chloride 108 H, Carbon Dioxide 6.0 L*, Anion Gap 27 H, BUN 25 H, Creatinine 1.63 H, Estim Creat Clear Calc 37.74, Est GFR (MDRD) Af Amer 47 L, Est GFR (MDRD) Non-Af 39 L, BUN/Creatinine Ratio 15.3, Glucose 574 H*, Calcium 9.2 06/06/21 12:56: POC Glucose > 500 H* 06/06/21 13:45: Urine Test Negative 06/06/21 14:03: POC Glucose 474 H* 06/06/21 15:03: POC Glucose 450 H 06/06/21 15:58: POC Glucose 410 H Micro: Microbiology 06/06/21 12:19 Sputum, Induced/Lukens Gram Stain - Final 06/06/21 09:25 Nasal Secretion SARS-CoV-2 Antigen (Rapid) - Final ABG Data ABG results: ABG 06/06/21 06/06/21 10:14 13:01 Specimen Type BETHANY ART Sample Site R Radial pH 7.05 L* Bicarbonate Actual 6.8 L Total CO2 8 Base Excess -24 L O2 Saturation 92 L O2 % 21 ABG pCO2 24.5 L ABG pO2 88 Mahendra Test Positive VBG pH 6.77 L* VBG pO2 48 H VBG HCO3 3 L VBG Total CO2 < 5 L VBG O2 Sat (Calc) 47 L VBG Base Excess < -30 L POC Mix VBG pCO2 Pt Tmp 22.9 L Respiration Rate 16 O2 Delivery Device Room Air Adult Vent Vent Mode AC Tidal Volume 350 POC PEEP 5 Crit Call To/Read Back Yes Yes Blood Gas Notified Whom dr howard Radiology Impression Brain CT 06/06/21 09:12 IMPRESSION: Normal unenhanced CT scan of the brain. Electronically Signed: Lorne Foster MD (Brooks) at 12:45 EST , Service support , Chest X-Ray 06/06/21 09:12 IMPRESSION: Endotracheal tube terminates at the carlos. Recommend retracting 3.5 cm. Electronically Signed: Lorne Foster MD (Brooks) at 11:42 EST , Service support , Charges/Coding Procedures Hospitalists Procedures: [id number] [facility] 1[facility] Hr
[2021-06-06 16:37] LABS: Anion Gap 21 (5-15); BUN 25 mg/dL (7-18); BUN/Creat Ratio 20.3 RATIO (10-20); Chloride 117 mmol/L (98-107); Creatinine, Serum 1.23 mg/dL (0.55-1.02); EST Glomerular Filtration Rate 54 mL/min (>60); Est Glom Filt Rate - Afr Amer 65 mL/min (>60); Estimated Creatinine Clearance 60.89 ml/min; Glucose 391 mg/dL (74-106); Potassium 2.3 mmol/L (3.5-5.1); Sodium Level 145 mmol/L (136-145)
[2021-06-06 16:49] LABS: M R Staph aureus DNA By PCR Negative (Negative); Probe Check PASS; Specimen Processing Control PASS
[2021-06-06 18:05] LABS: Bedside Glucose 304 mg/dL (70-110)
[2021-06-06] MEDS: 0.9% Normal Saline 1,000 ML 250 ML IV ×2 (18:06→18:16)
[2021-06-06 19:11] LABS: Bedside Glucose 289 mg/dL (70-110)
[2021-06-06] MEDS: Chlorhexidine 15 ML PO (20:36)
[2021-06-06 21:25] LABS: Anion Gap 14 (5-15); BUN 21 mg/dL (7-18); Calcium,Total 7.5 mg/dL (8.5-10.1); Chloride 124 mmol/L (98-107); Creatinine, Serum 1.05 mg/dL (0.55-1.02); EST Glomerular Filtration Rate 65 mL/min (>60); Est Glom Filt Rate - Afr Amer 78 mL/min (>60); Estimated Creatinine Clearance 71.33 ml/min; Glucose 246 mg/dL (74-106); Potassium 1.7 mmol/L (3.5-5.1); Sodium Level 149 mmol/L (136-145)
[2021-06-06 21:40] LABS: Bedside Glucose 289 mg/dL (70-110)
[2021-06-06 21:45] LABS: Bedside Glucose 231 mg/dL (70-110)
[2021-06-06 22:35] LABS: Bedside Glucose 242 mg/dL (70-110)
[2021-06-06 22:35] LABS: Hemoglobin A1c 11.6 % (3.8-5.6)
[2021-06-06 23:30] LABS: Bedside Glucose 226 mg/dL (70-110)
[2021-06-07] VITALS (40 sets, daily range): BP systolic 98–127; BP diastolic 70–89; PULSE 79–129; RESP 5–103; TEMP 36.8–37.7; O2SAT 98–100
[2021-06-07] MEDS: Potassium Chloride 10mEq/100mL 10 MEQ/100 ML IV.SOLN. 100 MEQ IV BOLUS ×10 (00:14→18:47)
[2021-06-07] MEDS: 0.9% Saline Lock 10 ML Syringe IV ×3 (00:23→22:55)
[2021-06-07 00:30] LABS: Bedside Glucose 299 mg/dL (70-110)
[2021-06-07 00:44] LABS: Anion Gap 11 (5-15); BUN 24 mg/dL (7-18); BUN/Creat Ratio 21.1 RATIO (10-20); Calcium,Total 7.7 mg/dL (8.5-10.1); Chloride 123 mmol/L (98-107); Creatinine, Serum 1.14 mg/dL (0.55-1.02); EST Glomerular Filtration Rate 59 mL/min (>60); Est Glom Filt Rate - Afr Amer 71 mL/min (>60); Estimated Creatinine Clearance 65.69 ml/min; Glucose 277 mg/dL (74-106); Potassium 2.4 mmol/L (3.5-5.1); Sodium Level 147 mmol/L (136-145)
[2021-06-07] MEDS: TITRATION PARAMETER CHANGE 1 EACH IV (01:00)
[2021-06-07 01:56] LABS: Bedside Glucose 249 mg/dL (70-110)
--- NOTE | 2021-06-07 02:05 | NURSING ---
PANDEMIC DOCUMENTATION Date: 06/06/21 Time: 3198
[2021-06-07 02:31] LABS: Bedside Glucose 248 mg/dL (70-110)
[2021-06-07 03:51] LABS: Bedside Glucose 238 mg/dL (70-110)
[2021-06-07 04:40] LABS: Bedside Glucose 250 mg/dL (70-110)
[2021-06-07 04:48] LABS: Absolute Neutrophil Count 11.9 X10^3/uL (2.0-7.7); Basophil# 0.02 X10^3/uL; Basophil% 0.1 % (0-1); Eosinophil# 0.01 X10^3/uL; Eosinophils% 0.1 % (0-5); Hematocrit 31.3 % (37-47); Hemoglobin 11.3 g/dL (12.0-15.0); Lymphocyte % 2.9 % (19-41); Mean Corp Hgb Conc 36.1 g/dL (32-36); Mean Corpuscular Hgb 30.1 pg (27.0-32.0); Mean Corpuscular Volume 83.5 fL (81-99); Mean Platelet Vol. 10.2 fl (6.2-12.0); Monocyte# 1.35 X10^3/uL; Monocyte% 9.8 % (0-10); NRBC Flagged by Analyzer 0 % (0-5); Neutrophil # 11.89 X10^3/uL (2.7-7.7); Neutrophil % 86.5 % (47-70); POSITIVE DIFFERENTIAL YES; Platelet Count 269 K/mm3 (150-450); RBC Distribution Width CV 17.6 % (11.6-14.6); RBC Distribution Width SD 53.5 fl (35.1-43.9); Red Blood Count 3.75 M/mm3 (4.2-5.4); White Blood Count 13.8 K/mm3 (4.4-11.0)
[2021-06-07 04:50] LABS: Differential Indicated SCAN CRITERIA MET
[2021-06-07 05:36] LABS: Bedside Glucose 208 mg/dL (70-110)
[2021-06-07 05:54] LABS: ALB/GLOB Ratio 0.6 RATIO (0.9-2.4); AST(SGOT) 29 U/L (15-37); Alanine Aminotransfer ALT/SGPT 12 U/L (13-56); Albumin, Serum 1.9 g/dL (3.2-5.0); Alkaline Phosphatase 110 U/L (45-117); Anion Gap 11 (5-15); BUN 26 mg/dL (7-18); BUN/Creat Ratio 19.1 RATIO (10-20); Calcium,Total 8.7 mg/dL (8.5-10.1); Chloride 122 mmol/L (98-107); Creatinine, Serum 1.36 mg/dL (0.55-1.02); EST Glomerular Filtration Rate 48 mL/min (>60); Est Glom Filt Rate - Afr Amer 58 mL/min (>60); Estimated Creatinine Clearance 55.07 ml/min; Globulin 3.2 g/dL (2.2-4.2); Glucose 263 mg/dL (74-106); Magnesium 1.9 mg/dL (1.6-2.6); Phosphorus 0.2 mg/dL (2.5-4.9); Potassium 2.3 mmol/L (3.5-5.1); Protein, Total 5.1 g/dL (6.4-8.2); Sodium Level 147 mmol/L (136-145)
[2021-06-07 06:46] LABS: Bedside Glucose 210 mg/dL (70-110)
[2021-06-07 06:46] LABS: Allen Test Positive; Base Excess -14 mmol/L (-2 to +2); Bicarbonate 12.2 mmol/L (22-26); Blood Gas Specimen Type ART; FI02 21; Mode CPAP/PS; O2 Delivery Device Adult Vent; PEEP 5; PO2 82 mmHG (75-100); PS 5; SITE L Radial; SO2 95 % (95-99); Total Carbon Dioxide 13 mmol/L; pCO2 24.8 mmHg (35-45)
[2021-06-07] MEDS: Potassium Chloride Oral Soln 20 MEQ/15 ML UDC 40 MEQ PO (07:14)
--- NOTE | 2021-06-07 07:28 | PN.HOSP_ITS ---
Subjective Subjective Patient was extubated this a.m. DKA resolved however still has significant electrolyte abnormalities including hypokalemia and hypernatremia Objective Data Objective Data Vital Signs: Vital Signs Temp Pulse Resp BP Pulse Ox 99.3 F H 107 H 13 122/75 H 100 06/07/21 07:00 06/07/21 07:00 06/07/21 07:00 06/07/21 07:00 06/07/21 07:00 Oxygen Delivery Method Mechanical Ventilator Weight: 63.6 kg Body Mass Index (BMI) 20.0 Intake & Output: Intake and Output for Last 24 Hours 06/05/21 06/06/21 06/07/21 23:59 23:59 23:59 Intake Total 8394.97 / 8414.37 1479.36 / 1479.36 Output Total 600 / 750 650 / 650 Balance 7794.97 / 7664.37 829.36 / 829.36 Lab / Micro Data Result Diagrams: 06/07/21 04:35 06/07/21 08:45 Labs: Laboratory Results - last 24 hr 06/06/21 09:10: WBC 22.2 H, RBC 5.55 H, Hgb 16.6 H, Hct 49.1 H, MCV 88.5, MCH 29.9, MCHC 33.8, RDW Std Deviation 57.5 H, RDW Coeff of Bret 18.0 H, Plt Count 567 H, MPV 11.0, Immature Gran % (Auto) 0.800, Neut % (Auto) 88.2 H, Lymph % (Auto) 3.8 L, [place] % (Auto) 6.3, Eos % (Auto) 0.0, Baso % (Auto) 0.9, Absolute Neuts (auto) 19.6 H, Absolute Lymphs (auto) 0.84, Nucleated RBC % 0.1 06/06/21 09:10: Sodium 136, Potassium 2.4 L*, Chloride 103, Carbon Dioxide 5.0 L*, Anion Gap 28 H, BUN 24 H, Creatinine 1.60 H, Estim Creat Clear Calc 38.44, Est GFR (MDRD) Af Amer 48 L, Est GFR (MDRD) Non-Af 40 L, BUN/Creatinine Ratio 15.0, Glucose 580 H*, Calcium 9.8, Total Bilirubin 0.40, AST 9 L, ALT 14, Alkaline Phosphatase 195 H, Total Creatine Kinase 30, Troponin I High Sens 4, Total Protein 8.3 H, Albumin 3.1 L, Globulin 5.2 H, Albumin/Globulin Ratio 0.6 L , TSH 0.52 06/06/21 09:10: Ethyl Alcohol < 3.0 06/06/21 09:10: Acetone Level MODERATE H 06/06/21 09:35: Urine Color Yellow, Urine Clarity Cloudy, Urine pH 6.0, Ur Specific [place] 1.020, Urine Protein 100 H, Urine Glucose (UA) 1000 H, Urine Ketones 150 A*, Urine Occult Blood 25 H, Urine Nitrite Negative, Urine Bilirubin Negative, Urine Urobilinogen Normal, Ur Leukocyte Esterase 100 H, Urine RBC 0-5 SEEN, Urine WBC 5-10 SEEN, Ur Squamous Epith Cells 0-5 SEEN, Urine Bacteria 2+, Urine Mucus 0 SEEN, Urine Yeast 4+ 06/06/21 09:35: Urine Opiates Screen NEGATIVE, Urine Methadone Screen NEGATIVE, Ur Barbiturates Screen NEGATIVE, Ur Phencyclidine Scrn NEGATIVE, Ur Amphetamines Screen NEGATIVE, U Methamphetamin-MDMA NEGATIVE, U Benzodiazepines Scrn NEGATIVE, Urine Cocaine Screen NEGATIVE, U Cannabinoids Screen NEGATIVE, Ur Drug Screen Comment 06/06/21 10:10: Ammonia 54.0 H 06/06/21 10:41: PT Cancelled, INR Cancelled, APTT Cancelled 06/06/21 10:41: Lactic Acid Cancelled 06/06/21 11:15: Troponin I High Sens 3 06/06/21 11:15: Lactic Acid 1.0 06/06/21 11:15: PT 15.6 H, INR 1.3, APTT 39.6 H 06/06/21 11:47: Hemoglobin A1c 11.6 H 06/06/21 11:48: Sodium 141, Potassium 2.2 L*, Chloride 108 H, Carbon Dioxide 6.0 L*, Anion Gap 27 H, BUN 25 H, Creatinine 1.63 H, Estim Creat Clear Calc 37.74, Est GFR (MDRD) Af Amer 47 L, Est GFR (MDRD) Non-Af 39 L, BUN/Creatinine Ratio 15.3, Glucose 574 H*, Calcium 9.2 06/06/21 12:56: POC Glucose > 500 H* 06/06/21 13:45: Urine Test Negative 06/06/21 13:45: MRSA (PCR) Negative 06/06/21 14:03: POC Glucose 474 H* 06/06/21 15:03: POC Glucose 450 H 06/06/21 15:58: POC Glucose 410 H 06/06/21 16:11: Sodium 145, Potassium 2.3 L*, Chloride 117 H, Carbon Dioxide 7.0 L*, Anion Gap 21 H, BUN 25 H, Creatinine 1.23 H, Estim Creat Clear Calc 60.89, Est GFR (MDRD) Af Amer 65, Est GFR (MDRD) Non-Af 54 L, BUN/Creatinine Ratio 20.3 H, Glucose 391 H, Calcium 9.0 06/06/21 18:00: POC Glucose 304 H 06/06/21 19:04: POC Glucose 289 H 06/06/21 20:25: Sodium 149 H, Potassium 1.7 L*, Chloride 124 H, Carbon Dioxide 11.0 L, Anion Gap 14, BUN 21 H, Creatinine 1.05 H, Estim Creat Clear Calc 71.33, Est GFR (MDRD) Af Amer 78, Est GFR (MDRD) Non-Af 65, BUN/Creatinine Ratio 20.0, Glucose 246 H, Calcium 7.5 L 06/06/21 20:31: POC Glucose 231 H 06/06/21 21:34: POC Glucose 289 H 06/06/21 22:24: POC Glucose 242 H 06/06/21 23:22: POC Glucose 226 H 06/07/21 00:03: POC Glucose 299 H 06/07/21 00:20: Sodium 147 H, Potassium 2.4 L*, Chloride 123 H, Carbon Dioxide 13.0 L, Anion Gap 11, BUN 24 H, Creatinine 1.14 H, Estim Creat Clear Calc 65.69, Est GFR (MDRD) Af Amer 71, Est GFR (MDRD) Non-Af 59 L, BUN/Creatinine Ratio 21.1 H, Glucose 277 H, Calcium 7.7 L 06/07/21 01:20: POC Glucose 249 H 06/07/21 02:22: POC Glucose 248 H 06/07/21 03:43: POC Glucose 238 H 06/07/21 04:34: POC Glucose 250 H 06/07/21 04:35: WBC 13.8 H, RBC 3.75 L, Hgb 11.3 L, Hct 31.3 L, MCV 83.5 D, MCH 30.1, MCHC 36.1 H D, RDW Std Deviation 53.5 H, RDW Coeff of Bret 17.6 H, Plt Count 269, MPV 10.2, Immature Gran % (Auto) 0.600, Neut % (Auto) 86.5 H, Lymph % (Auto) 2.9 L, [place] % (Auto) 9.8, Eos % (Auto) 0.1, Baso % (Auto) 0.1, Absolute Neuts (auto) 11.9 H, Absolute Lymphs (auto) 0.40 L, Nucleated RBC % 0 06/07/21 04:35: Sodium 147 H, Potassium 2.3 L*, Chloride 122 H, Carbon Dioxide 14.0 L, Anion Gap 11, BUN 26 H, Creatinine 1.36 H, Estim Creat Clear Calc 55.07, Est GFR (MDRD) Af Amer 58 L, Est GFR (MDRD) Non-Af 48 L, BUN/Creatinine Ratio 19.1, Glucose 263 H, Calcium 8.7, Phosphorus 0.2 L*, Magnesium 1.9, Total Bilirubin 0.30, AST 29, ALT 12 L, Alkaline Phosphatase 110, Total Protein 5.1 L, Albumin 1.9 L, Globulin 3.2, Albumin/Globulin Ratio 0.6 L 06/07/21 05:30: POC Glucose 208 H 06/07/21 06:36: POC Glucose 210 H Micro: Microbiology 06/06/21 12:19 Sputum, Induced/Lukens Gram Stain - Final 06/06/21 09:25 Nasal Secretion SARS-CoV-2 Antigen (Rapid) - Final ABG Data ABG results: ABG 06/06/21 06/06/21 06/07/21 10:14 13:01 06:37 Specimen Type BETHANY ART ART Sample Site R Radial L Radial pH 7.05 L* 7.30 L Bicarbonate Actual 6.8 L 12.2 L Total CO2 8 13 Base Excess -24 L -14 L O2 Saturation 92 L 95 O2 % 21 21 ABG pCO2 24.5 L 24.8 L ABG pO2 88 82 Mahendra Test Positive Positive VBG pH 6.77 L* VBG pO2 48 H VBG HCO3 3 L VBG Total CO2 < 5 L VBG O2 Sat (Calc) 47 L VBG Base Excess < -30 L POC Mix VBG pCO2 Pt Tmp 22.9 L Respiration Rate 16 O2 Delivery Device Room Air Adult Vent Adult Vent Vent Mode AC CPAP/PS Tidal Volume 350 POC PEEP 5 5 POC Pressure Suppt 5 Crit Call To/Read Back Yes Yes Blood Gas Notified Whom dr diggs Radiography Diagnostic Testing: Radiology Impression Brain CT 06/06/21 09:12 IMPRESSION: Normal unenhanced CT scan of the brain. Electronically Signed: Lorne Foster MD (Brooks) at 12:45 EST , Service support , Chest X-Ray 06/06/21 09:12 IMPRESSION: Endotracheal tube terminates at the carlos. Recommend retracting 3.5 cm. Electronically Signed: Lorne Foster MD (Brooks) at 11:42 EST , Service support , Physical Exam Narrative GENERAL: Somewhat lethargic following extubation HEENT: Atraumatic; EYES; Anicteric, Normal Conjunctiva NECK; supple, normal thyroid, RESPIRATORY: Diminished to auscultation CARDIOVASCULAR: Regular S1 S2, tachycardic GI: soft, normoactive bowel sounds, : No Renal angle tenderness; EXTREMITIES: No edema, no clubbing, MUSCULOSKELETAL: no muscle waisting NEURO: Grossly intact no lateralizing signs SKIN: No Rash Assessment & Plan Assessment/Plan (1) Diabetic ketoacidosis: (2) Hypokalemia: (3) Acute kidney injury: (4) Hyperammonemia: (5) Leukocytosis: PLAN: Patient is a 30-year-old lady brought in with altered mental status 1. Acute metabolic encephalopathy ?Secondary to DKA admitted to the intensive care unit for subsequent management 2. Diabetic ketoacidosis ?New onset diabetes. Patient presented with significant acidosis with pH of 6.7 and bicarb of 6. Admitted to the intensive care unit where patient has been managed with aggressive IV fluid resuscitation, correction of electrolytes, administration of IV insulin and serial monitoring of patient progress with every 4 BMPs -06/07/2021 DKA resolved 3. Acute respiratory failure ?Due to patient's significant encephalopathy. Patient was intubated in the ED to protect her airway admitted to the intensive care unit. Subsequent vent management deferred to pulmonary/intensive care medicine 4. Leukocytosis ?No evidence of infection at this point do suspect reactive leukocytosis from above 5. Acute kidney injury ?Secondary to severe DKA on IV fluid with subsequent monitoring of electrolyte 6. Alcohol dependence ?Counseled on cessation 7. Tobacco dependence - Counseled on cessation, offered nicotine patch for tobacco cravings 8. Severe hypokalemia ?Secondary to DKA aggressive repletion initiated -06/07/2021 patient still hypokalemic repletion underway 9. DVT prophylaxis ?Lovenox Charges/Coding Visit Charges Inpatient E&M: 06990 Subs Hosp L3
--- NOTE | 2021-06-07 08:16 | PN.CC_ITS ---
Assessment & Plan Assessment/Plan (1) Diabetic ketoacidosis: (2) Acute kidney injury: (3) Acute respiratory failure: PLAN: RECOMMENDATIONS: 1. Continue aggressive potassium replacement. Check magnesium 2. Aggressive fluid resuscitation 3. Insulin per DKA protocol 4. Wean oxygen as tolerated 5. Potential transfer later today from the ICU. Will sign off following transition from insulin gtt IMPRESSIONS: 1. Diabetic ketoacidosis with coma Patient reportedly does not carry a diagnosis of DKA. Patient with significant acidosis on presentation. We will continue with DKA protocol. Await improvement in bicarb. Aggressive correction of electrolytes have been ordered. Patient will need diabetic teaching. 2. Acute respiratory failure secondary to problem #1 Concerns for protecting airway led to intubation in the ER. Patient extubated without incident. Given intubation for airway protection, no need to monitor in ICU for 24 hours after extubation. 3. Acute kidney injury/pseudohyponatremia/hypokalemia Clinical suspicion for prerenal etiology. Patient appeared to be significantly volume depleted on presentation. We will continue to monitor electrolytes and replete as necessary. Telemetry is in place. Patient likely has an element of ATN. May start polyuric phase in 1-2 days. 4. Reported alcohol and tobacco dependence Complicates care, management, recovery and prognosis. Nicotine patch can be offered following extubation. Patient did have hyperammonemia of unclear etiology. Will recheck this if patient is not responding appropriately. TIME: 34 minutes critical care time spent addressing patient's new onset diabetes, DKA, coma, acute respiratory failure, acute kidney injury, review of all data and collaboration with care team. Subjective Subjective Patient did okay overnight. Patient was on levophed for a brief period, but it was taken off without incident. Patient passed SBT this morning and was extubated. Patient continues on insulin gtt and aggressive potassium replacement. Objective Data Objective Data Vital Signs: Vital Signs Temp Pulse Resp BP Pulse Ox 37.4 C H 107 H 13 122/75 H 100 06/07/21 07:00 06/07/21 07:00 06/07/21 07:00 06/07/21 07:00 06/07/21 07:00 Oxygen Delivery Method Mechanical Ventilator Weight: 63.6 kg Body Mass Index (BMI) 20.0 Intake & Output: Intake and Output for Last 24 Hours 06/05/21 06/06/21 06/07/21 23:59 23:59 23:59 Intake Total 8394.97 / 8414.37 1485.75 / 1485.75 Output Total 600 / 750 650 / 650 Balance 7794.97 / 7664.37 835.75 / 835.75 Lab / Micro Data Result Diagrams: 06/07/21 04:35 06/07/21 04:35 Labs: Laboratory Results - last 24 hr 06/06/21 09:10: WBC 22.2 H, RBC 5.55 H, Hgb 16.6 H, Hct 49.1 H, MCV 88.5, MCH 29.9, MCHC 33.8, RDW Std Deviation 57.5 H, RDW Coeff of Bret 18.0 H, Plt Count 567 H, MPV 11.0, Immature Gran % (Auto) 0.800, Neut % (Auto) 88.2 H, Lymph % (Auto) 3.8 L, Roberts % (Auto) 6.3, Eos % (Auto) 0.0, Baso % (Auto) 0.9, Absolute Neuts (auto) 19.6 H, Absolute Lymphs (auto) 0.84, Nucleated RBC % 0.1 06/06/21 09:10: Sodium 136, Potassium 2.4 L*, Chloride 103, Carbon Dioxide 5.0 L*, Anion Gap 28 H, BUN 24 H, Creatinine 1.60 H, Estim Creat Clear Calc 38.44, Est GFR (MDRD) Af Amer 48 L, Est GFR (MDRD) Non-Af 40 L, BUN/Creatinine Ratio 15.0, Glucose 580 H*, Calcium 9.8, Total Bilirubin 0.40, AST 9 L, ALT 14, Alkaline Phosphatase 195 H, Total Creatine Kinase 30, Troponin I High Sens 4, Total Protein 8.3 H, Albumin 3.1 L, Globulin 5.2 H, Albumin/Globulin Ratio 0.6 L , TSH 0.52 06/06/21 09:10: Ethyl Alcohol < 3.0 06/06/21 09:10: Acetone Level MODERATE H 06/06/21 09:35: Urine Color Yellow, Urine Clarity Cloudy, Urine pH 6.0, Ur Specific [place] 1.020, Urine Protein 100 H, Urine Glucose (UA) 1000 H, Urine Ketones 150 A*, Urine Occult Blood 25 H, Urine Nitrite Negative, Urine Bilirubin Negative, Urine Urobilinogen Normal, Ur Leukocyte Esterase 100 H, Urine RBC 0-5 SEEN, Urine WBC 5-10 SEEN, Ur Squamous Epith Cells 0-5 SEEN, Urine Bacteria 2+, Urine Mucus 0 SEEN, Urine Yeast 4+ 06/06/21 09:35: Urine Opiates Screen NEGATIVE, Urine Methadone Screen NEGATIVE, Ur Barbiturates Screen NEGATIVE, Ur Phencyclidine Scrn NEGATIVE, Ur Amphetamines Screen NEGATIVE, U Methamphetamin-MDMA NEGATIVE, U Benzodiazepines Scrn NEGATIV E, Urine Cocaine Screen NEGATIVE, U Cannabinoids Screen NEGATIVE, Ur Drug Screen Comment 06/06/21 10:10: Ammonia 54.0 H 06/06/21 10:41: PT Cancelled, INR Cancelled, APTT Cancelled 06/06/21 10:41: Lactic Acid Cancelled 06/06/21 11:15: Troponin I High Sens 3 06/06/21 11:15: Lactic Acid 1.0 06/06/21 11:15: PT 15.6 H, INR 1.3, APTT 39.6 H 06/06/21 11:47: Hemoglobin A1c 11.6 H 06/06/21 11:48: Sodium 141, Potassium 2.2 L*, Chloride 108 H, Carbon Dioxide 6.0 L*, Anion Gap 27 H, BUN 25 H, Creatinine 1.63 H, Estim Creat Clear Calc 37.74, Est GFR (MDRD) Af Amer 47 L, Est GFR (MDRD) Non-Af 39 L, BUN/Creatinine Ratio 15.3, Glucose 574 H*, Calcium 9.2 06/06/21 12:56: POC Glucose > 500 H* 06/06/21 13:45: Urine Test Negative 06/06/21 13:45: MRSA (PCR) Negative 06/06/21 14:03: POC Glucose 474 H* 06/06/21 15:03: POC Glucose 450 H 06/06/21 15:58: POC Glucose 410 H 06/06/21 16:11: Sodium 145, Potassium 2.3 L*, Chloride 117 H, Carbon Dioxide 7.0 L*, Anion Gap 21 H, BUN 25 H, Creatinine 1.23 H, Estim Creat Clear Calc 60.89, Est GFR (MDRD) Af Amer 65, Est GFR (MDRD) Non-Af 54 L, BUN/Creatinine Ratio 20.3 H, Glucose 391 H, Calcium 9.0 06/06/21 18:00: POC Glucose 304 H 06/06/21 19:04: POC Glucose 289 H 06/06/21 20:25: Sodium 149 H, Potassium 1.7 L*, Chloride 124 H, Carbon Dioxide 11.0 L, Anion Gap 14, BUN 21 H, Creatinine 1.05 H, Estim Creat Clear Calc 71.33, Est GFR (MDRD) Af Amer 78, Est GFR (MDRD) Non-Af 65, BUN/Creatinine Ratio 20.0, Glucose 246 H, Calcium 7.5 L 06/06/21 20:31: POC Glucose 231 H 06/06/21 21:34: POC Glucose 289 H 06/06/21 22:24: POC Glucose 242 H 06/06/21 23:22: POC Glucose 226 H 06/07/21 00:03: POC Glucose 299 H 06/07/21 00:20: Sodium 147 H, Potassium 2.4 L*, Chloride 123 H, Carbon Dioxide 13.0 L, Anion Gap 11, BUN 24 H, Creatinine 1.14 H, Estim Creat Clear Calc 65.69, Est GFR (MDRD) Af Amer 71, Est GFR (MDRD) Non-Af 59 L, BUN/Creatinine Ratio 21.1 H, Glucose 277 H, Calcium 7.7 L 06/07/21 01:20: POC Glucose 249 H 06/07/21 02:22: POC Glucose 248 H 06/07/21 03:43: POC Glucose 238 H 06/07/21 04:34: POC Glucose 250 H 06/07/21 04:35: WBC 13.8 H, RBC 3.75 L, Hgb 11.3 L, Hct 31.3 L, MCV 83.5 D, MCH 30.1, MCHC 36.1 H D, RDW Std Deviation 53.5 H, RDW Coeff of Bret 17.6 H, Plt Count 269, MPV 10.2, Immature Gran % (Auto) 0.600, Neut % (Auto) 86.5 H, Lymph % (Auto) 2.9 L, Roberts % (Auto) 9.8, Eos % (Auto) 0.1, Baso % (Auto) 0.1, Absolute Neuts (auto) 11.9 H, Absolute Lymphs (auto) 0.40 L, Nucleated RBC % 0 06/07/21 04:35: Sodium 147 H, Potassium 2.3 L*, Chloride 122 H, Carbon Dioxide 14.0 L, Anion Gap 11, BUN 26 H, Creatinine 1.36 H, Estim Creat Clear Calc 55.07, Est GFR (MDRD) Af Amer 58 L, Est GFR (MDRD) Non-Af 48 L, BUN/Creatinine Ratio 1 9.1, Glucose 263 H, Calcium 8.7, Phosphorus 0.2 L*, Magnesium 1.9, Total Bilirubin 0.30, AST 29, ALT 12 L, Alkaline Phosphatase 110, Total Protein 5.1 L, Albumin 1.9 L, Globulin 3.2, Albumin/Globulin Ratio 0.6 L 06/07/21 05:30: POC Glucose 208 H 06/07/21 06:36: POC Glucose 210 H Micro: Microbiology 06/06/21 12:19 Sputum, Induced/Lukens Gram Stain - Final 06/06/21 09:25 Nasal Secretion SARS-CoV-2 Antigen (Rapid) - Final ABG Data ABG results: ABG 06/06/21 06/06/21 06/07/21 10:14 13:01 06:37 Specimen Type BETHANY ART ART Sample Site R Radial L Radial pH 7.05 L* 7.30 L Bicarbonate Actual 6.8 L 12.2 L Total CO2 8 13 Base Excess -24 L -14 L O2 Saturation 92 L 95 O2 % 21 21 ABG pCO2 24.5 L 24.8 L ABG pO2 88 82 Mahendra Test Positive Positive VBG pH 6.77 L* VBG pO2 48 H VBG HCO3 3 L VBG Total CO2 < 5 L VBG O2 Sat (Calc) 47 L VBG Base Excess < -30 L POC Mix VBG pCO2 Pt Tmp 22.9 L Respiration Rate 16 O2 Delivery Device Room Air Adult Vent Adult Vent Vent Mode AC CPAP/PS Tidal Volume 350 POC PEEP 5 5 POC Pressure Suppt 5 Crit Call To/Read Back Yes Yes Blood Gas Notified Whom dr diggs Radiography Diagnostic Testing: Radiology Impression Brain CT 06/06/21 09:12 IMPRESSION: Normal unenhanced CT scan of the brain. Electronically Signed: Lorne Foster MD ([place]) at 12:45 EST , Service support , Chest X-Ray 06/06/21 09:12 IMPRESSION: Endotracheal tube terminates at the carlos. Recommend retracting 3.5 cm. Electronically Signed: Lorne Foster MD ([place]) at 11:42 EST , Service support , Physical Exam Const alert Constitutional Narrative: Appears older than stated age. Good vent synchrony. General Appearance: cooperative, comfortable and patient mechanically ventilated HEENT normocephalic and head/scalp atraumatic HEENT Narrative: Fair dentition Mouth: endotracheal tube in place and OG tube in place Neck no JVD Lymph Lymphatic: no lymphadenopathy noted Chest inspection of chest normal Chest: symmetrical chest wall rise; Negative for crepitus Resp normal respiratory effort and no use of accessory muscles Auscultation: Negative for rales, rhonchi or wheezes Percussion: Negative for dullness Cardio regular rhythm, S1 normal heart sound, S2 normal heart sound, no murmurs, no rub, no gallops and no JVD Rate: tachycardic GI normal to inspection, nondistended, normoactive bowel sounds GI Narrative: Abdominal aorta palpable, but not enlarged Extremity no clubbing, cyanosis or edema Skin General Skin Exam: mottling Neuro Sensorium / Orientation: sedated on vent Psych Mood & Affect: flat affect Charges/Coding Procedures Hospitalists Procedures: 21507 Critial Care 1st Hr
[2021-06-07 08:20] LABS: Magnesium 1.9 mg/dL (1.6-2.6)
[2021-06-07 08:55] LABS: Bedside Glucose 162 mg/dL (70-110)
[2021-06-07 08:55] LABS: Bedside Glucose 194 mg/dL (70-110)
[2021-06-07 09:13] LABS: Anion Gap 9 (5-15); BUN 26 mg/dL (7-18); Calcium,Total 9.6 mg/dL (8.5-10.1); Chloride 123 mmol/L (98-107); Creatinine, Serum 1.37 mg/dL (0.55-1.02); EST Glomerular Filtration Rate 48 mL/min (>60); Est Glom Filt Rate - Afr Amer 58 mL/min (>60); Estimated Creatinine Clearance 57.86 ml/min; Glucose 200 mg/dL (74-106); Potassium 2.7 mmol/L (3.5-5.1); Sodium Level 148 mmol/L (136-145)
[2021-06-07] MEDS: Enoxaparin 40 MG/0.4 ML Syringe SC (09:51)
--- NOTE | 2021-06-07 12:40 | CASEMGMT ---
Social Work SW participated in ICU rounds this morning. Pt has been extubated, but very sleepy. Pt's mother is at the bedside, SW spoke w/her. Pt did give permission by nodding was okay for SW to speak w/pt's mother, pt then closed her eyes, occasionally looked up during our conversation but did not participate. PCP: None, pt's mother is going to try to get her an appointment w/Dr. Flowers Specialists: None Insurance: [employer] [facility]acy: [facility] [place] L[place]K: Mother Genesis and Father Dilip Living arrangements/Level of function: Pt lives alone, fully independent with all ADLs. Pt works at [employer] and [employer] LW/POA: None DME/HHC/SNF: No history Substance Abuse: Pt's mother states pt drinks occasionally Plan: It is anticipated pt will be able to go home at discharge. SW spoke w/pt's mother at the bedside, pt not able to participate. Diabetes is a new diagnosis for pt, as per pt's mother. SW explained SW will speak w/pt when she is able to participate, and pt will have scripts for all needed meds when she is discharged. SW will continue to follow. VIDA Fatima
[2021-06-07 12:46] LABS: Bedside Glucose 173 mg/dL (70-110)
[2021-06-07 12:46] LABS: Bedside Glucose 140 mg/dL (70-110)
[2021-06-07 12:46] LABS: Bedside Glucose 171 mg/dL (70-110)
[2021-06-07 13:23] LABS: Anion Gap 11 (5-15); BUN 24 mg/dL (7-18); BUN/Creat Ratio 16.8 RATIO (10-20); Calcium,Total 9.3 mg/dL (8.5-10.1); Chloride 124 mmol/L (98-107); Creatinine, Serum 1.43 mg/dL (0.55-1.02); EST Glomerular Filtration Rate 45 mL/min (>60); Est Glom Filt Rate - Afr Amer 55 mL/min (>60); Estimated Creatinine Clearance 55.43 ml/min; Glucose 134 mg/dL (74-106); Potassium 2.6 mmol/L (3.5-5.1); Sodium Level 148 mmol/L (136-145)
[2021-06-07 15:01] LABS: Bedside Glucose 129 mg/dL (70-110)
[2021-06-07 15:01] LABS: Bedside Glucose 111 mg/dL (70-110)
[2021-06-07 15:01] LABS: Bedside Glucose 87 mg/dL (70-110)
[2021-06-07] MEDS: Dextrose 50%-Water 25 GM/50 ML DISP.SYRIN IV (16:31)
[2021-06-07 16:57] LABS: Anion Gap 7 (5-15); BUN 22 mg/dL (7-18); BUN/Creat Ratio 16.8 RATIO (10-20); Calcium,Total 9.7 mg/dL (8.5-10.1); Chloride 125 mmol/L (98-107); Creatinine, Serum 1.31 mg/dL (0.55-1.02); EST Glomerular Filtration Rate 50 mL/min (>60); Est Glom Filt Rate - Afr Amer 61 mL/min (>60); Estimated Creatinine Clearance 60.51 ml/min; Glucose 70 mg/dL (74-106); Sodium Level 147 mmol/L (136-145)
[2021-06-07 17:51] LABS: Bedside Glucose 83 mg/dL (70-110)
[2021-06-07 17:51] LABS: Bedside Glucose 78 mg/dL (70-110)
[2021-06-07 17:51] LABS: Bedside Glucose 53 mg/dL (70-110)
[2021-06-07 17:51] LABS: Bedside Glucose 174 mg/dL (70-110)
[2021-06-07 19:06] LABS: Bedside Glucose 223 mg/dL (70-110)
[2021-06-07 19:06] LABS: Bedside Glucose 184 mg/dL (70-110)
[2021-06-07 21:12] LABS: Anion Gap 9 (5-15); BUN 19 mg/dL (7-18); Calcium,Total 8.9 mg/dL (8.5-10.1); Chloride 124 mmol/L (98-107); Creatinine, Serum 1.36 mg/dL (0.55-1.02); EST Glomerular Filtration Rate 48 mL/min (>60); Est Glom Filt Rate - Afr Amer 58 mL/min (>60); Estimated Creatinine Clearance 58.28 ml/min; Glucose 327 mg/dL (74-106); Potassium 3.8 mmol/L (3.5-5.1); Sodium Level 146 mmol/L (136-145)
[2021-06-07 22:25] LABS: Bedside Glucose 311 mg/dL (70-110)
[2021-06-07 23:00] LABS: Bedside Glucose 233 mg/dL (70-110)
--- NOTE | 2021-06-07 23:29 | NURSING ---
In regards to 2039 glucometer, not addressed d/t multiple emergencies on the unit.
[2021-06-08] VITALS (23 sets, daily range): BP systolic 103–123; BP diastolic 74–88; PULSE 108–136; RESP 16–24; TEMP 37.6–38.1; O2SAT 98–100
[2021-06-08 00:16] LABS: Bedside Glucose 203 mg/dL (70-110)
[2021-06-08 00:45] LABS: Anion Gap 9 (5-15); BUN 17 mg/dL (7-18); BUN/Creat Ratio 13.2 RATIO (10-20); Calcium,Total 9.1 mg/dL (8.5-10.1); Chloride 125 mmol/L (98-107); Creatinine, Serum 1.29 mg/dL (0.55-1.02); EST Glomerular Filtration Rate 51 mL/min (>60); Est Glom Filt Rate - Afr Amer 62 mL/min (>60); Estimated Creatinine Clearance 61.45 ml/min; Glucose 218 mg/dL (74-106); Potassium 3.4 mmol/L (3.5-5.1); Sodium Level 147 mmol/L (136-145)
[2021-06-08] MEDS: 0.9% Saline Lock 10 ML Syringe IV (01:17)
[2021-06-08] MEDS: Acetaminophen 650 MG Suppository RC (01:17)
[2021-06-08 01:26] LABS: Bedside Glucose 234 mg/dL (70-110)
[2021-06-08 03:26] LABS: Bedside Glucose 239 mg/dL (70-110)
[2021-06-08 04:31] LABS: Bedside Glucose 198 mg/dL (70-110)
[2021-06-08 04:35] LABS: Absolute Lymphocyte Count 0.82 X10^3/uL (0.83-4.51); Absolute Neutrophil Count 13.6 X10^3/uL (2.0-7.7); Basophil# 0.04 X10^3/uL; Basophil% 0.3 % (0-1); Eosinophil# 0.01 X10^3/uL; Eosinophils% 0.1 % (0-5); Hematocrit 28.2 % (37-47); Hemoglobin 10.4 g/dL (12.0-15.0); Lymphocyte # 0.82 X10^3/ul (0.83-4.51); Lymphocyte % 5.2 % (19-41); Mean Corp Hgb Conc 36.9 g/dL (32-36); Mean Corpuscular Volume 81.3 fL (81-99); Mean Platelet Vol. 10.1 fl (6.2-12.0); Monocyte# 1.23 X10^3/uL; Monocyte% 7.7 % (0-10); NRBC Flagged by Analyzer 0 % (0-5); Neutrophil # 13.64 X10^3/uL (2.7-7.7); Neutrophil % 85.7 % (47-70); Platelet Count 242 K/mm3 (150-450); RBC Distribution Width CV 18.1 % (11.6-14.6); RBC Distribution Width SD 52.8 fl (35.1-43.9); Red Blood Count 3.47 M/mm3 (4.2-5.4); White Blood Count 15.9 K/mm3 (4.4-11.0)
[2021-06-08 04:57] LABS: ALB/GLOB Ratio 0.5 RATIO (0.9-2.4); AST(SGOT) 44 U/L (15-37); Alanine Aminotransfer ALT/SGPT 18 U/L (13-56); Albumin, Serum 1.8 g/dL (3.2-5.0); Alkaline Phosphatase 99 U/L (45-117); Anion Gap 8 (5-15); BUN 16 mg/dL (7-18); BUN/Creat Ratio 12.3 RATIO (10-20); Calcium,Total 8.9 mg/dL (8.5-10.1); Chloride 125 mmol/L (98-107); EST Glomerular Filtration Rate 51 mL/min (>60); Est Glom Filt Rate - Afr Amer 61 mL/min (>60); Estimated Creatinine Clearance 60.97 ml/min; Globulin 3.3 g/dL (2.2-4.2); Glucose 222 mg/dL (74-106); Potassium 2.8 mmol/L (3.5-5.1); Protein, Total 5.1 g/dL (6.4-8.2); Sodium Level 148 mmol/L (136-145)
[2021-06-08] MEDS: Potassium Chloride 10mEq/100mL 10 MEQ/100 ML IV.SOLN. 100 MEQ IV BOLUS ×12 (05:46→22:25)
[2021-06-08 05:50] LABS: Bedside Glucose 173 mg/dL (70-110)
[2021-06-08 06:35] LABS: Bedside Glucose 158 mg/dL (70-110)
--- NOTE | 2021-06-08 07:10 | PCM.PN.INT ---
Assessment & Plan Assessment/Plan (1) Diabetic ketoacidosis: (2) Acute kidney injury: (3) Acute respiratory failure: PLAN: RECOMMENDATIONS: 1. Speech therapy to reevaluate patient prior to advancing diet. 2. Once cleared from speech therapy and diet advanced, continuous insulin will be discontinued and basal insulin started. 3. Once able to be transitioned to basal insulin, discontinue IV fluids. 4. Continue aggressive electrolyte repletion. 5. Continue empiric antimicrobials. 6. RUBBER PRODUCTION MACHINE OPERATOR consultation, re: labial abscess IMPRESSIONS: 1. Diabetic ketoacidosis with coma Improved. Given that the patient was still too encephalopathic yesterday, she was unable to be cleared for a diet. Therefore, she has remained on a continuous insulin infusion, pending reevaluation by speech therapy and subsequent dietary advancement. Once her diet is able to be advanced, the continuous insulin will be discontinued and she will be placed on basal and sliding scale coverage. Additionally, fluids will be discontinued. 2. Acute respiratory failure secondary to #1 Resolved. The patient was initially intubated in the emergency department over concerns for airway protection in the setting of #1. She has done well from a respiratory perspective following extubation. Continue to encourage incentive spirometer use while in bed. 3. Acute kidney injury/hypokalemia Clinical suspicion for prerenal etiology. Continue to monitor urine output. No current indication for renal replacement therapy. Continue aggressive electrolyte repletion as indicated. 4. Labial abscess Consultation to be placed to RUBBER PRODUCTION MACHINE OPERATOR. 5. Reported alcohol and tobacco dependence Complicates care, management, recovery and prognosis. Nicotine replacement therapy can be offered to the patient while admitted to the hospital. This note was generated with [employer] dictation software. It may contain incorrect words, spelling, and punctuation that were not noted in checking the note before signing. Subjective Subjective The patient was seen and examined at the bedside this morning. Events from the last 24 hours have been reviewed. The patient did have some low-grade fevers noted overnight. She remains tachycardic, but is otherwise hemodynamically stable. She has done well from a respiratory perspective following extubation yesterday. She is currently maintaining appropriate oxygen saturations on room air. The patient remains on a continuous insulin infusion. Nursing staff did report several labial abscesses. The patient is currently documented to be overall net +10.8 L for the hospitalization. White count is elevated at 16,000. Sodium is elevated at 148 with a potassium of 2.8, chloride of 125 and bicarbonate of 15. Creatinine is stable at 1.3. Objective Data Objective Data The patient's most recent lab work, culture data and imaging studies have all been personally reviewed. Vital Signs: Vital Signs Temp Pulse Resp BP Pulse Ox 99.9 F H 121 H 17 121/76 H 100 06/08/21 06:00 06/08/21 06:00 06/08/21 06:00 06/08/21 06:00 06/08/21 06:00 Oxygen Delivery Method Room Air Weight: 64 kg Body Mass Index (BMI) 20.0 Intake & Output: Intake and Output for Last 24 Hours 06/06/21 06/07/21 06/08/21 23:59 23:59 23:59 Intake Total 8394.97 / 8414.37 5015.10 / 5015.10 1185.15 / 1185.15 Output Total 600 / 750 1675 / 1675 1450 / 1450 Balance 7794.97 / 7664.37 3340.10 / 3340.10 -264.85 / -264.85 Lab / Micro Data Attestation: I reviewed the patient's lab results. Result Diagrams: 06/08/21 04:25 06/08/21 08:30 Labs: Laboratory Results - last 24 hr 06/07/21 00:20: Magnesium 1.9 06/07/21 07:37: POC Glucose 162 H 06/07/21 08:34: POC Glucose 194 H 06/07/21 08:45: Sodium 148 H, Potassium 2.7 L*, Chloride 123 H, Carbon Dioxide 16.0 L, Anion Gap 9, BUN 26 H, Creatinine 1.37 H, Estim Creat Clear Calc 57.86, Est GFR (MDRD) Af Amer 58 L, Est GFR (MDRD) Non-Af 48 L, BUN/Creatinine Ratio 19.0, Glucose 200 H, Calcium 9.6 06/07/21 09:36: POC Glucose 171 H 06/07/21 10:36: POC Glucose 173 H 06/07/21 11:28: POC Glucose 140 H 06/07/21 12:42: POC Glucose 129 H 06/07/21 12:45: Sodium 148 H, Potassium 2.6 L*, Chloride 124 H, Carbon Dioxide 13.0 L, Anion Gap 11, BUN 24 H, Creatinine 1.43 H, Estim Creat Clear Calc 55.43, Est GFR (MDRD) Af Amer 55 L, Est GFR (MDRD) Non-Af 45 L, BUN/Creatinine Ratio 16.8, Glucose 134 H, Calcium 9.3 06/07/21 13:31: POC Glucose 111 H 06/07/21 14:37: POC Glucose 87 06/07/21 15:08: POC Glucose 83 06/07/21 15:29: POC Glucose 78 06/07/21 16:30: Sodium 147 H, Potassium 3.0 L, Chloride 125 H, Carbon Dioxide 15.0 L, Anion Gap 7, BUN 22 H, Creatinine 1.31 H, Estim Creat Clear Calc 60.51, Est GFR (MDRD) Af Amer 61, Est GFR (MDRD) Non-Af 50 L, BUN/Creatinine Ratio 16.8, Glucose 70 L, Calcium 9.7 06/07/21 16:30: POC Glucose 53 L 06/07/21 16:49: POC Glucose 174 H 06/07/21 17:48: POC Glucose 184 H 06/07/21 18:46: POC Glucose 223 H 06/07/21 20:40: Sodium 146 H, Potassium 3.8, Chloride 124 H, Carbon Dioxide 13.0 L, Anion Gap 9, BUN 19 H, Creatinine 1.36 H, Estim Creat Clear Calc 58.28, Est GFR (MDRD) Af Amer 58 L, Est GFR (MDRD) Non-Af 48 L, BUN/Creatinine Ratio 14.0, Glucose 327 H, Calcium 8.9 06/07/21 20:40: POC Glucose 311 H 06/07/21 22:52: POC Glucose 233 H 06/08/21 00:07: POC Glucose 203 H 06/08/21 00:10: Sodium 147 H, Potassium 3.4 L, Chloride 125 H, Carbon Dioxide 13.0 L, Anion Gap 9, BUN 17, Creatinine 1.29 H, Estim Creat Clear Calc 61.45, Est GFR (MDRD) Af Amer 62, Est GFR (MDRD) Non-Af 51 L, BUN/Creatinine Ratio 13.2, Glucose 218 H, Calcium 9.1 06/08/21 01:16: POC Glucose 234 H 06/08/21 03:20: POC Glucose 239 H 06/08/21 04:25: WBC 15.9 H, RBC 3.47 L, Hgb 10.4 L, Hct 28.2 L, MCV 81.3, MCH 30.0, MCHC 36.9 H, RDW Std Deviation 52.8 H, RDW Coeff of Bret 18.1 H, Plt Count 242, MPV 10.1, Immature Gran % (Auto) 1.000 H, Neut % (Auto) 85.7 H, Lymph % (Auto) 5.2 L, Green % (Auto) 7.7, Eos % (Auto) 0.1, Baso % (Auto) 0.3, Absolute Neuts (auto) 13.6 H, Absolute Lymphs (auto) 0.82 L, Nucleated RBC % 0 06/08/21 04:25: Sodium 148 H, Potassium 2.8 L, Chloride 125 H, Carbon Dioxide 15.0 L, Anion Gap 8, BUN 16, Creatinine 1.30 H, Estim Creat Clear Calc 60.97, Est GFR (MDRD) Af Amer 61, Est GFR (MDRD) Non-Af 51 L, BUN/Creatinine Ratio 12.3, Glucose 222 H, Calcium 8.9, Total Bilirubin 0.40, AST 44 H, ALT 18, Alkaline Phosphatase 99, Total Protein 5.1 L, Albumin 1.8 L, Globulin 3.3, Albumin/Globulin Ratio 0.5 L 06/08/21 04:26: POC Glucose 198 H 06/08/21 05:39: POC Glucose 173 H 06/08/21 06:29: POC Glucose 158 H Micro: Microbiology 06/06/21 12:19 Sputum, Induced/Lukens Gram Stain - Final 06/06/21 12:19 Sputum, Induced/Lukens Respiratory Culture - Preliminary Beta streptococcus 06/06/21 09:25 Nasal Secretion SARS-CoV-2 Antigen (Rapid) - Final 06/06/21 09:35 Urine, Catheterized Urine Culture - Preliminary Beta hemolytic organism Gram positive organism Physical Exam Const alert and no apparent distress General Appearance: cooperative HEENT normocephalic and head/scalp atraumatic Eyes PERRL, EOMs intact bilaterally and conjunctivae normal Neck supple General: trachea midline Chest inspection of chest normal Resp normal respiratory effort Auscultation: Negative for rales, rhonchi or wheezes Cardio S1 normal heart sound, S2 normal heart sound and no murmurs Rate: tachycardic GI normal to inspection, nondistended, normoactive bowel sounds Extremity no clubbing, cyanosis or edema Skin Wound Narrative: Labial abscesses Neuro CN's II-XII intact bilaterally, moves all extremities and no focal motor deficits Psych Mood & Affect: flat affect Charges/Coding Visit Charges Inpatient E&M: 02552 Subs Hosp L3
--- NOTE | 2021-06-08 07:23 | PCM.PN.HOSP ---
Subjective Subjective Patient seen much more awake. Did examine her labia abscess. Patient has been started on Rocephin and doxycycline the day prior. Patient scheduled to undergo speech and swallow eval prior to initiation of oral diet Objective Data Objective Data Vital Signs: Vital Signs Temp Pulse Resp BP Pulse Ox 99.9 F H 121 H 17 121/76 H 98 06/08/21 06:00 06/08/21 06:00 06/08/21 06:00 06/08/21 06:00 06/08/21 07:17 Oxygen Delivery Method Room Air Weight: 64 kg Body Mass Index (BMI) 20.0 Intake & Output: Intake and Output for Last 24 Hours 06/06/21 06/07/21 06/08/21 23:59 23:59 23:59 Intake Total 8394.97 / 8414.37 5015.10 / 5015.10 1185.15 / 1185.15 Output Total 600 / 750 1675 / 1675 1450 / 1450 Balance 7794.97 / 7664.37 3340.10 / 3340.10 -264.85 / -264.85 Lab / Micro Data Result Diagrams: 06/08/21 04:25 06/08/21 08:30 Labs: Laboratory Results - last 24 hr 06/07/21 00:20: Magnesium 1.9 06/07/21 07:37: POC Glucose 162 H 06/07/21 08:34: POC Glucose 194 H 06/07/21 08:45: Sodium 148 H, Potassium 2.7 L*, Chloride 123 H, Carbon Dioxide 16.0 L, Anion Gap 9, BUN 26 H, Creatinine 1.37 H, Estim Creat Clear Calc 57.86, Est GFR (MDRD) Af Amer 58 L, Est GFR (MDRD) Non-Af 48 L, BUN/Creatinine Ratio 19.0, Glucose 200 H, Calcium 9.6 06/07/21 09:36: POC Glucose 171 H 06/07/21 10:36: POC Glucose 173 H 06/07/21 11:28: POC Glucose 140 H 06/07/21 12:42: POC Glucose 129 H 06/07/21 12:45: Sodium 148 H, Potassium 2.6 L*, Chloride 124 H, Carbon Dioxide 13.0 L, Anion Gap 11, BUN 24 H, Creatinine 1.43 H, Estim Creat Clear Calc 55.43, Est GFR (MDRD) Af Amer 55 L, Est GFR (MDRD) Non-Af 45 L, BUN/Creatinine Ratio 16.8, Glucose 134 H, Calcium 9.3 06/07/21 13:31: POC Glucose 111 H 06/07/21 14:37: POC Glucose 87 06/07/21 15:08: POC Glucose 83 06/07/21 15:29: POC Glucose 78 06/07/21 16:30: Sodium 147 H, Potassium 3.0 L, Chloride 125 H, Carbon Dioxide 15.0 L, Anion Gap 7, BUN 22 H, Creatinine 1.31 H, Estim Creat Clear Calc 60.51, Est GFR (MDRD) Af Amer 61, Est GFR (MDRD) Non-Af 50 L, BUN/Creatinine Ratio 16.8, Glucose 70 L, Calcium 9.7 06/07/21 16:30: POC Glucose 53 L 06/07/21 16:49: POC Glucose 174 H 06/07/21 17:48: POC Glucose 184 H 06/07/21 18:46: POC Glucose 223 H 06/07/21 20:40: Sodium 146 H, Potassium 3.8, Chloride 124 H, Carbon Dioxide 13.0 L, Anion Gap 9, BUN 19 H, Creatinine 1.36 H, Estim Creat Clear Calc 58.28, Est GFR (MDRD) Af Amer 58 L, Est GFR (MDRD) Non-Af 48 L, BUN/Creatinine Ratio 14.0, Glucose 327 H, Calcium 8.9 06/07/21 20:40: POC Glucose 311 H 06/07/21 22:52: POC Glucose 233 H 06/08/21 00:07: POC Glucose 203 H 06/08/21 00:10: Sodium 147 H, Potassium 3.4 L, Chloride 125 H, Carbon Dioxide 13.0 L, Anion Gap 9, BUN 17, Creatinine 1.29 H, Estim Creat Clear Calc 61.45, Est GFR (MDRD) Af Amer 62, Est GFR (MDRD) Non-Af 51 L, BUN/Creatinine Ratio 13.2, Glucose 218 H, Calcium 9.1 06/08/21 01:16: POC Glucose 234 H 06/08/21 03:20: POC Glucose 239 H 06/08/21 04:25: WBC 15.9 H, RBC 3.47 L, Hgb 10.4 L, Hct 28.2 L, MCV 81.3, MCH 30.0, MCHC 36.9 H, RDW Std Deviation 52.8 H, RDW Coeff of Bret 18.1 H, Plt Count 242, MPV 10.1, Immature Gran % (Auto) 1.000 H, Neut % (Auto) 85.7 H, Lymph % (Auto) 5.2 L, [place] % (Auto) 7.7, Eos % (Auto) 0.1, Baso % (Auto) 0.3, Absolute Neuts (auto) 13.6 H, Absolute Lymphs (auto) 0.82 L, Nucleated RBC % 0 06/08/21 04:25: Sodium 148 H, Potassium 2.8 L, Chloride 125 H, Carbon Dioxide 15.0 L, Anion Gap 8, BUN 16, Creatinine 1.30 H, Estim Creat Clear Calc 60.97, Est GFR (MDRD) Af Amer 61, Est GFR (MDRD) Non-Af 51 L, BUN/Creatinine Ratio 12.3, Glucose 222 H, Calcium 8.9, Total Bilirubin 0.40, AST 44 H, ALT 18, Alkaline Phosphatase 99, Total Protein 5.1 L, Albumin 1.8 L, Globulin 3.3, Albumin/Globulin Ratio 0.5 L 06/08/21 04:26: POC Glucose 198 H 06/08/21 05:39: POC Glucose 173 H 06/08/21 06:29: POC Glucose 158 H Micro: Microbiology 06/06/21 12:19 Sputum, Induced/Lukens Gram Stain - Final 06/06/21 12:19 Sputum, Induced/Lukens Respiratory Culture - Preliminary Beta streptococcus 06/06/21 09:25 Nasal Secretion SARS-CoV-2 Antigen (Rapid) - Final 06/06/21 09:35 Urine, Catheterized Urine Culture - Preliminary Beta hemolytic organism Gram positive organism Physical Exam Narrative GENERAL: Awake HEENT: Atraumatic; EYES; Anicteric, Normal Conjunctiva NECK; supple, normal thyroid, RESPIRATORY: Diminished to auscultation CARDIOVASCULAR: Regular S1 S2, tachycardic GI: soft, normoactive bowel sounds, : Significant swelling involving the left labia EXTREMITIES: No edema, no clubbing, MUSCULOSKELETAL: no muscle waisting NEURO: Grossly intact no lateralizing signs SKIN: No Rash Assessment & Plan Assessment/Plan (1) Diabetic ketoacidosis: (2) Hypokalemia: (3) Acute kidney injury: (4) Hyperammonemia: (5) Leukocytosis: PLAN: Patient is a 30-year-old lady brought in with altered mental status 1. Acute metabolic encephalopathy ?Secondary to DKA admitted to the intensive care unit for subsequent management 2. Diabetic ketoacidosis ?New onset diabetes. Patient presented with significant acidosis with pH of 6.7 and bicarb of 6. Admitted to the intensive care unit where patient has been managed with aggressive IV fluid resuscitation, correction of electrolytes, administration of IV insulin and serial monitoring of patient progress with every 4 BMPs -06/07/2021 DKA resolved -06/08/2021. Plan is to initiate oral diet once patient passes her speech and swallow eval with initiation of long-acting insulin 3. Acute respiratory failure ?Due to patient's significant encephalopathy. Patient was intubated in the ED to protect her airway admitted to the intensive care unit. Subsequent vent management deferred to pulmonary/intensive care medicine -06/08/2021; patient was weaned off the vent the day prior 4. Left labial abscess ?06/08/2021 may explain for patient's leukocytosis on admission started on broad-spectrum antibiotic therapy and consult placed to WATCH TRAIN ASSEMBLER for possible I&D 5. Acute kidney injury ?Secondary to severe DKA on IV fluid with subsequent monitoring of electrolyte ?06/08/2021 patient kidney function remains impaired currently on IV fluids with serial monitoring of electrolytes 6. Alcohol dependence ?Counseled on cessation 7. Tobacco dependence - Counseled on cessation, offered nicotine patch for tobacco cravings 8. Severe hypokalemia ?Secondary to DKA aggressive repletion initiated -06/07/2021 patient still hypokalemic repletion underway -06/08/2021. Patient still remains hypokalemic despite aggressive resuscitation 9. DVT prophylaxis ?Lovenox Charges/Coding Visit Charges Inpatient E&M: 22248 Subs Hosp L3
[2021-06-08 09:08] LABS: Anion Gap 11 (5-15); BUN 16 mg/dL (7-18); BUN/Creat Ratio 12.1 RATIO (10-20); Calcium,Total 9.1 mg/dL (8.5-10.1); Chloride 123 mmol/L (98-107); Creatinine, Serum 1.32 mg/dL (0.55-1.02); EST Glomerular Filtration Rate 50 mL/min (>60); Est Glom Filt Rate - Afr Amer 60 mL/min (>60); Estimated Creatinine Clearance 60.05 ml/min; Glucose 112 mg/dL (74-106); Potassium 2.6 mmol/L (3.5-5.1); Sodium Level 151 mmol/L (136-145)
[2021-06-08] MEDS: Enoxaparin 40 MG/0.4 ML Syringe SC (09:51)
[2021-06-08 10:00] LABS: Bedside Glucose 110 mg/dL (70-110)
[2021-06-08 10:00] LABS: Bedside Glucose 117 mg/dL (70-110)
[2021-06-08 10:00] LABS: Bedside Glucose 86 mg/dL (70-110)
[2021-06-08 10:00] LABS: Bedside Glucose 88 mg/dL (70-110)
[2021-06-08] MEDS: Doxycycline 100 MG CAPSULE PO ×2 (13:34→22:36)
--- NOTE | 2021-06-08 13:39 | CASEMGMT ---
Social Work SW met w/pt in room. Pt's mother present but on the phone. SW explained to pt would like to speak w/pt, will ask pt's mother to leave. Pt okay w/pt's mother not leaving the room. Pt still drowsy, though able to have a brief conversation w/pt and answer some questions. SW inquired first about the new diagnosis of diabetes, pt's mother confirmed that pt has indeed been diagnosed w/diabetes. SW let pt know that the camelid fiber sorter will be in to provide education about this. SW then asked pt about alcohol consumption. Pt states she stopped drinking on her own two months ago. Pt has never been in any counseling for alcohol consumption. Pt declined any resources for support around her alcohol use history. SW also asked pt about mental health. Pt states she probably has anxiety, never formally diagnosed however. Pt has not been in counseling for this, and declines any information on mental health resources. SW let pt know that SW remains available for any resources or support. VIDA Fatima
[2021-06-08 13:43] LABS: Anion Gap 11 (5-15); BUN 14 mg/dL (7-18); BUN/Creat Ratio 9.7 RATIO (10-20); Calcium,Total 9.5 mg/dL (8.5-10.1); Chloride 122 mmol/L (98-107); Creatinine, Serum 1.45 mg/dL (0.55-1.02); EST Glomerular Filtration Rate 45 mL/min (>60); Est Glom Filt Rate - Afr Amer 54 mL/min (>60); Estimated Creatinine Clearance 54.67 ml/min; Glucose 166 mg/dL (74-106); Sodium Level 149 mmol/L (136-145)
[2021-06-08 13:51] LABS: Bedside Glucose 164 mg/dL (70-110)
[2021-06-08 13:51] LABS: Bedside Glucose 173 mg/dL (70-110)
[2021-06-08 13:51] LABS: Bedside Glucose 149 mg/dL (70-110)
[2021-06-08 17:00] LABS: Bedside Glucose 166 mg/dL (70-110)
[2021-06-08 17:00] LABS: Bedside Glucose 161 mg/dL (70-110)
[2021-06-08] MEDS: Insulin Lispro 100 UNIT/ML INSULN.PEN SC ×2 (17:05→22:40)
[2021-06-08 17:31] LABS: Bedside Glucose 127 mg/dL (70-110)
[2021-06-08 17:34] LABS: Anion Gap 9 (5-15); BUN 14 mg/dL (7-18); BUN/Creat Ratio 9.5 RATIO (10-20); Calcium,Total 9.3 mg/dL (8.5-10.1); Chloride 122 mmol/L (98-107); Creatinine, Serum 1.48 mg/dL (0.55-1.02); EST Glomerular Filtration Rate 44 mL/min (>60); Est Glom Filt Rate - Afr Amer 53 mL/min (>60); Estimated Creatinine Clearance 53.56 ml/min; Glucose 149 mg/dL (74-106); Sodium Level 148 mmol/L (136-145)
--- NOTE | 2021-06-08 20:40 | PCM.CONS.B ---
Consult Date of Consult: 06/08/21 HISTORY OF PRESENT ILLNESS: On 06/08/2021, Tamika Cruz, a 30 year old female 0 0 0 0 0, presented for: -- ICU Consult --Left vulvar Swelling --Patient found by mother in a comatose state. Subsequently found to have DKA. White count was elevated (now 15.9) and examination revealed a left area of vulvar swelling suggestive of a possible abscess. Patient was initially in a coma and is now awake and appropriately responsive. She is sexually active with a single partner at present after getting about a year and a half ago. She denies any history of STDs. She is known to have had a bicornate uterus and had surgery by director traffic and planning but this along with endometriosis has rendered her infertile to date. She denies any other surgeries other than for her endometriosis and bicornate uterus. She indicates that she does not know when the swelling started in her left vulvar area but that it feels quite a bit better today than yesterday since IV antibiotics have been started. -- Right vulva swelling and tenderness which began 3 days ago. It occurs all the time. It is located in the right vulva. Severity is moderate and improving. It is relieved by IV doxycycline and rocephin. Additional comment: in ICU for DKA then comatose, now recovering. ALLERGIES: No Known Allergies MEDICATIONS HISTORY: Current medications prescribed by our practice are: 1. ferrous sulfate 325 mg (65 mg iron) tablet, One pill by mouth three times a day REVIEW OF SYSTEMS: GENERAL - Denies fever, or chills SKIN - Denies skin changes EYES - Denies visual changes EARS - Denies difficulty hearing NOSE - Denies nasal congestion or bleeding MOUTH - Denies sore throat or difficulty swallowing although mouth is dry from being previously intubated NECK - Denies pain or swelling RESPIRATORY - Denies shortness of breath or wheezing CARDIOVASCULAR - Denies palpitations or chest pain GASTROINTESTINAL - Denies nausea, vomiting, diarrhea, constipation GENITOURINARY - Denies dysuria, frequency of urination, incontinence of urine MUSCULOSKELETAL - Denies joint or muscle pain NEUROLOGICAL - Denies localized numbness or weakness PSYCHIATRIC - Denies depression or anxiety ENDOCRINE - Denies heat or cold intolerance, weight loss or gain HEMATO-IMMUNOLOGIC - Denies excessive bleeding with cuts PAST HISTORY: Breast/Ovarian/Colon Cancers - Denies Infections - Chicken pox Illnesses - none Accidents - None History of Abnormal PAPS - Denies, has had at least 2 Pap smears in the last 5 years Hospitalizations - see surgery Subclinical hypothyroidism, endometriosis; SURGICAL HISTORY: 1. 11/19/2014 LAPAROSCOPIC FULGURATION OF ENDOMETRIOSIS Kellee Perez MD 2. [facility] 3. [place] Teeth Removal 4, Surgery by director traffic and planning for removal of portion of bicornate uterus PAST PREGNANCIES: Total Pregnancies - 0; Full Term Pregnancies - 0; Premature - 0; Abortions, Induced - 0; Abortions, Spontaneous - 0; Ectopics - 0; Multiple Births - 0; Living Children - 0 FAMILY HISTORY: Maternal Grandparent - Type 2 Diabetes; SOCIAL HISTORY: Alcohol Use - denies drinking Smoking - 4-5 cigs/day Diet - balanced Diet Lifestyle - Exercise - none Seat Belt Use - always Employer - unemployed Illicit Drug Use - denies use of street drugs Sexual Activity - Residence - rents an apartment Control - None-attempting PHYSICAL EXAM AF, VSS CONSTITUTIONAL - NAD, well nourished, and well developed SKIN - No rash, lesions, or ulcers ABDOMEN - Without hepatosplenomegaly, distention, masses, rebound, or guarding; normal bowel sounds; no hernias NEUROLOGICAL - Cranial nerves II-XII grossly intact PSYCHIATRIC - A and O to time, place, person, mood and affect DETAILED PELVIC EXAM External Genital Vagina - left vulvar swelling and redness over 7 cm x 3 cm area; erythematous; no fluid collection appreciated on exam Urethra/Urethral Meatus - non-tender Bladder - non-tender Vagina - vaginal guthrie are pink and moist without loss of rugae and no evidence of atrophy Cervix - without cervical motion tenderness and has normal size and features without evident lesions Uterus - 5-6 cm in size, mobile and nontender Adnexa - clear without masses or tenderness ASSESSMENT: 1. Vulva/vaginal Candidiasis 2. Abscess Of Vulva PLAN BY DIAGNOSIS: 1. Abscess Of Vulva and Vulva/vaginal Candidiasis Uncertain etiology of inflammation/infection but resolving with IV Doxycycline and Rocephin. For now, continuing IV antibiotics should help with resolution; recommend home on po doxycycline for 7-10 days. Will continue to monitor with you. No need for I and D at this time as swelling and pain should resolve with the antibiotics. Recommend antifungal cream.
[2021-06-08 23:01] LABS: Bedside Glucose 205 mg/dL (70-110)
[2021-06-09] VITALS (11 sets, daily range): BP systolic 100–124; BP diastolic 70–90; PULSE 85–107; RESP 14–18; TEMP 36.1–37.9; O2SAT 99–100
[2021-06-09 04:42] LABS: Absolute Lymphocyte Count 1.38 X10^3/uL (0.83-4.51); Absolute Neutrophil Count 7.5 X10^3/uL (2.0-7.7); Basophil# 0.03 X10^3/uL; Basophil% 0.3 % (0-1); Eosinophil# 0.03 X10^3/uL; Eosinophils% 0.3 % (0-5); Hematocrit 28.1 % (37-47); Hemoglobin 10.1 g/dL (12.0-15.0); Lymphocyte # 1.38 X10^3/ul (0.83-4.51); Lymphocyte % 13.8 % (19-41); Mean Corp Hgb Conc 35.9 g/dL (32-36); Mean Corpuscular Hgb 29.4 pg (27.0-32.0); Mean Corpuscular Volume 81.7 fL (81-99); Mean Platelet Vol. 10.8 fl (6.2-12.0); Monocyte# 0.93 X10^3/uL; Monocyte% 9.3 % (0-10); NRBC Flagged by Analyzer 0 % (0-5); Neutrophil # 7.53 X10^3/uL (2.7-7.7); Neutrophil % 75.5 % (47-70); Platelet Count 217 K/mm3 (150-450); RBC Distribution Width CV 18.9 % (11.6-14.6); RBC Distribution Width SD 56.5 fl (35.1-43.9); Red Blood Count 3.44 M/mm3 (4.2-5.4)
[2021-06-09 04:55] LABS: ALB/GLOB Ratio 0.5 RATIO (0.9-2.4); AST(SGOT) 29 U/L (15-37); Alanine Aminotransfer ALT/SGPT 21 U/L (13-56); Albumin, Serum 1.6 g/dL (3.2-5.0); Alkaline Phosphatase 94 U/L (45-117); Anion Gap 6 (5-15); BUN 13 mg/dL (7-18); Calcium,Total 8.6 mg/dL (8.5-10.1); Chloride 120 mmol/L (98-107); EST Glomerular Filtration Rate 51 mL/min (>60); Est Glom Filt Rate - Afr Amer 61 mL/min (>60); Estimated Creatinine Clearance 60.97 ml/min; Globulin 3.1 g/dL (2.2-4.2); Glucose 244 mg/dL (74-106); Potassium 2.8 mmol/L (3.5-5.1); Protein, Total 4.7 g/dL (6.4-8.2); Sodium Level 146 mmol/L (136-145)
--- NOTE | 2021-06-09 06:19 | PN.CC_ITS ---
Assessment & Plan Assessment/Plan (1) Diabetic ketoacidosis: (2) Acute kidney injury: (3) Acute respiratory failure: PLAN: RECOMMENDATIONS: 1. Continue Lantus and sliding scale insulin coverage. 2. Continue antimicrobials with home-going instructions per CHEMISTRY RESEARCH ASSISTANT recommendations. 3. Additional potassium repletion. 4. Encourage incentive spirometer use and mobilize patient as tolerated. 5. Will sign off from a critical care perspective. Please call with any additional questions. IMPRESSIONS: 1. Diabetic ketoacidosis with coma Resolved. Continue current supportive measures with basal insulin and sliding scale coverage. 2. Acute respiratory failure secondary to #1 Resolved. The patient was initially intubated in the emergency department over concerns for airway protection in the setting of #1. She has done well from a respiratory perspective following extubation. Continue to encourage incentive spirometer use while in bed. 3. Acute kidney injury/hypokalemia Clinical suspicion for prerenal etiology. Continue to monitor urine output. No current indication for renal replacement therapy. Continue aggressive electrolyte repletion as indicated. 4. Labial abscess No indication for I&D per CHEMISTRY RESEARCH ASSISTANT. Continue antimicrobials per recommendations. 5. Reported alcohol and tobacco dependence Complicates care, management, recovery and prognosis. Nicotine replacement therapy can be offered to the patient while admitted to the hospital. This note was generated with [employer] dictation software. It may contain incorrect words, spelling, and punctuation that were not noted in checking the note before signing. Subjective Subjective The patient was seen and examined at the bedside this morning. Events from the last 24 hours have been reviewed. The patient is afebrile and hemodynamically stable. She is maintaining appropriate oxygen saturations on room air. The patient was able to be transition from a continuous insulin infusion to Lantus and sliding scale coverage yesterday. She is currently documented to be overall net +10.9 L for the hospitalization. Potassium is again low this morning at 2.8. Creatinine is stable at 1.3. The patient was evaluated by CHEMISTRY RESEARCH ASSISTANT yesterday who did not feel that an I&D of her vulvar abscess was indicated. Objective Data Objective Data The patient's most recent lab work, culture data and imaging studies have all been personally reviewed. Vital Signs: Vital Signs Temp Pulse Resp BP Pulse Ox 100.3 F H 99 18 115/78 99 06/09/21 02:00 06/09/21 04:00 06/09/21 02:00 06/09/21 02:00 06/09/21 02:00 Oxygen Delivery Method Room Air Weight: 65.3 kg Body Mass Index (BMI) 20.0 Intake & Output: Intake and Output for Last 24 Hours 06/07/21 06/08/21 06/09/21 23:59 23:59 23:59 Intake Total 5015.10 / 5015.10 4280.17 / 4280.17 Output Total 1675 / 1675 3650 / 3650 800 / 800 Balance 3340.10 / 3340.10 630.17 / 630.17 -800 / -800 Lab / Micro Data Result Diagrams: 06/09/21 04:25 06/09/21 04:25 Labs: Laboratory Results - last 24 hr 06/08/21 06:29: POC Glucose 158 H 06/08/21 07:38: POC Glucose 117 H 06/08/21 08:29: POC Glucose 110 06/08/21 08:30: Sodium 151 H, Potassium 2.6 L*, Chloride 123 H, Carbon Dioxide 17.0 L, Anion Gap 11, BUN 16, Creatinine 1.32 H, Estim Creat Clear Calc 60.05, Est GFR (MDRD) Af Amer 60, Est GFR (MDRD) Non-Af 50 L, BUN/Creatinine Ratio 12.1, Glucose 112 H, Calcium 9.1 06/08/21 09:27: POC Glucose 88 06/08/21 09:57: POC Glucose 86 06/08/21 10:52: POC Glucose 149 H 06/08/21 11:58: POC Glucose 173 H 06/08/21 12:57: POC Glucose 164 H 06/08/21 13:00: Sodium 149 H, Potassium 3.0 L, Chloride 122 H, Carbon Dioxide 16.0 L, Anion Gap 11, BUN 14, Creatinine 1.45 H, Estim Creat Clear Calc 54.67, Est GFR (MDRD) Af Amer 54 L, Est GFR (MDRD) Non-Af 45 L, BUN/Creatinine Ratio 9.7 L, Glucose 166 H, Calcium 9.5 06/08/21 13:48: POC Glucose 166 H 06/08/21 14:58: POC Glucose 161 H 06/08/21 16:59: POC Glucose 127 H 06/08/21 17:00: Sodium 148 H, Potassium 3.0 L, Chloride 122 H, Carbon Dioxide 17.0 L, Anion Gap 9, BUN 14, Creatinine 1.48 H, Estim Creat Clear Calc 53.56, Est GFR (MDRD) Af Amer 53 L, Est GFR (MDRD) Non-Af 44 L, BUN/Creatinine Ratio 9.5 L, Glucose 149 H, Calcium 9.3 06/08/21 22:40: POC Glucose 205 H 06/09/21 04:25: WBC 10.0, RBC 3.44 L, Hgb 10.1 L, Hct 28.1 L, MCV 81.7, MCH 29.4, MCHC 35.9, RDW Std Deviation 56.5 H, RDW Coeff of Bret 18.9 H, Plt Count 217, MPV 10.8, Immature Gran % (Auto) 0.800, Neut % (Auto) 75.5 H, Lymph % (Auto) 13.8 L, [place] % (Auto) 9.3, Eos % (Auto) 0.3, Baso % (Auto) 0.3, Absolute Neuts (auto) 7.5, Absolute Lymphs (auto) 1.38, Nucleated RBC % 0 06/09/21 04:25: Sodium 146 H, Potassium 2.8 L, Chloride 120 H, Carbon Dioxide 20.0 L, Anion Gap 6, BUN 13, Creatinine 1.30 H, Estim Creat Clear Calc 60.97, Est GFR (MDRD) Af Amer 61, Est GFR (MDRD) Non-Af 51 L, BUN/Creatinine Ratio 10.0, Glucose 244 H, Calcium 8.6, Total Bilirubin 0.50, AST 29, ALT 21, Alkaline Phosphatase 94, Total Protein 4.7 L, Albumin 1.6 L, Globulin 3.1, Albumin/Globulin Ratio 0.5 L Micro: Microbiology 06/06/21 09:35 Urine, Catheterized Urine Culture - Preliminary Streptococcus group B Heide albicans 06/06/21 12:19 Sputum, Induced/Lukens Gram Stain - Final 06/06/21 12:19 Sputum, Induced/Lukens Respiratory Culture - Preliminary Streptococcus group B 06/06/21 10:10 Blood Culture (Wb) - Anticubital Right Blood Culture - Preliminary No growth in 48 hours. 06/06/21 09:40 Blood Culture (Wb) - Anticubital Left Blood Culture - Preliminary No growth in 48 hours. 06/06/21 09:25 Nasal Secretion SARS-CoV-2 Antigen (Rapid) - Final Physical Exam Const alert and no apparent distress General Appearance: cooperative HEENT normocephalic and head/scalp atraumatic Eyes PERRL, EOMs intact bilaterally and conjunctivae normal Neck supple General: trachea midline Chest inspection of chest normal Resp normal respiratory effort Auscultation: Negative for rales, rhonchi or wheezes Cardio S1 normal heart sound, S2 normal heart sound and no murmurs Rate: tachycardic GI normal to inspection, nondistended, normoactive bowel sounds Extremity no clubbing, cyanosis or edema Skin Wound Narrative: Labial abscesses Neuro CN's II-XII intact bilaterally, moves all extremities and no focal motor defic its Psych Mood & Affect: flat affect Charges/Coding Visit Charges Inpatient E&M: 90660 Subs Hosp L2
[2021-06-09] MEDS: Potassium Chloride 10mEq/100mL 10 MEQ/100 ML IV.SOLN. 100 MEQ IV BOLUS ×4 (06:46→11:52)
--- NOTE | 2021-06-09 07:15 | PN.HOSP_ITS ---
Subjective Subjective Patient seen much more awake compared to previous day. Sputum cultures came back positive for strep species. Patient potassium still remains low. Was also seen in consultation by FUEL RETROFITTING TECHNICIAN regarding her labial swelling Objective Data Objective Data Vital Signs: Vital Signs Temp Pulse Resp BP Pulse Ox 100.3 F H 99 18 115/78 99 06/09/21 02:00 06/09/21 04:00 06/09/21 02:00 06/09/21 02:00 06/09/21 02:00 Oxygen Delivery Method Room Air Weight: 65.3 kg Body Mass Index (BMI) 20.0 Intake & Output: Intake and Output for Last 24 Hours 06/07/21 06/08/21 06/09/21 23:59 23:59 23:59 Intake Total 5015.10 / 5015.10 4280.17 / 4280.17 260 / 260 Output Total 1675 / 1675 3650 / 3650 800 / 800 Balance 3340.10 / 3340.10 630.17 / 630.17 -540 / -540 Lab / Micro Data Result Diagrams: 06/09/21 04:25 06/09/21 04:25 Labs: Laboratory Results - last 24 hr 06/08/21 07:38: POC Glucose 117 H 06/08/21 08:29: POC Glucose 110 06/08/21 08:30: Sodium 151 H, Potassium 2.6 L*, Chloride 123 H, Carbon Dioxide 17.0 L, Anion Gap 11, BUN 16, Creatinine 1.32 H, Estim Creat Clear Calc 60.05, Est GFR (MDRD) Af Amer 60, Est GFR (MDRD) Non-Af 50 L, BUN/Creatinine Ratio 12.1, Glucose 112 H, Calcium 9.1 06/08/21 09:27: POC Glucose 88 06/08/21 09:57: POC Glucose 86 06/08/21 10:52: POC Glucose 149 H 06/08/21 11:58: POC Glucose 173 H 06/08/21 12:57: POC Glucose 164 H 06/08/21 13:00: Sodium 149 H, Potassium 3.0 L, Chloride 122 H, Carbon Dioxide 16.0 L, Anion Gap 11, BUN 14, Creatinine 1.45 H, Estim Creat Clear Calc 54.67, Est GFR (MDRD) Af Amer 54 L, Est GFR (MDRD) Non-Af 45 L, BUN/Creatinine Ratio 9.7 L, Glucose 166 H, Calcium 9.5 06/08/21 13:48: POC Glucose 166 H 06/08/21 14:58: POC Glucose 161 H 06/08/21 16:59: POC Glucose 127 H 06/08/21 17:00: Sodium 148 H, Potassium 3.0 L, Chloride 122 H, Carbon Dioxide 17.0 L, Anion Gap 9, BUN 14, Creatinine 1.48 H, Estim Creat Clear Calc 53.56, Est GFR (MDRD) Af Amer 53 L, Est GFR (MDRD) Non-Af 44 L, BUN/Creatinine Ratio 9.5 L, Glucose 149 H, Calcium 9.3 06/08/21 22:40: POC Glucose 205 H 06/09/21 04:25: WBC 10.0, RBC 3.44 L, Hgb 10.1 L, Hct 28.1 L, MCV 81.7, MCH 29.4, MCHC 35.9, RDW Std Deviation 56.5 H, RDW Coeff of Bret 18.9 H, Plt Count 217, MPV 10.8, Immature Gran % (Auto) 0.800, Neut % (Auto) 75.5 H, Lymph % (Auto) 13.8 L, [place] % (Auto) 9.3, Eos % (Auto) 0.3, Baso % (Auto) 0.3, Absolute Neuts (auto) 7.5, Absolute Lymphs (auto) 1.38, Nucleated RBC % 0 06/09/21 04:25: Sodium 146 H, Potassium 2.8 L, Chloride 120 H, Carbon Dioxide 20.0 L, Anion Gap 6, BUN 13, Creatinine 1.30 H, Estim Creat Clear Calc 60.97, Est GFR (MDRD) Af Amer 61, Est GFR (MDRD) Non-Af 51 L, BUN/Creatinine Ratio 10.0, Glucose 244 H, Calcium 8.6, Total Bilirubin 0.50, AST 29, ALT 21, Alkaline Phosphatase 94, Total Protein 4.7 L, Albumin 1.6 L, Globulin 3.1, Albumin/Globulin Ratio 0.5 L Micro: Microbiology 06/06/21 09:35 Urine, Catheterized Urine Culture - Preliminary Streptococcus group B Heide albicans 06/06/21 12:19 Sputum, Induced/Lukens Gram Stain - Final 06/06/21 12:19 Sputum, Induced/Lukens Respiratory Culture - Preliminary Streptococcus group B 06/06/21 10:10 Blood Culture (Wb) - Anticubital Right Blood Culture - Preliminary No growth in 48 hours. 06/06/21 09:40 Blood Culture (Wb) - Anticubital Left Blood Culture - Preliminary No growth in 48 hours. 06/06/21 09:25 Nasal Secretion SARS-CoV-2 Antigen (Rapid) - Final Physical Exam Narrative GENERAL: Awake HEENT: Atraumatic; EYES; Anicteric, Normal Conjunctiva NECK; supple, normal thyroid, RESPIRATORY: Diminished to auscultation CARDIOVASCULAR: Regular S1 S2, tachycardic GI: soft, normoactive bowel sounds, : Significant swelling involving the left labia EXTREMITIES: No edema, no clubbing, MUSCULOSKELETAL: no muscle waisting NEURO: Grossly intact no lateralizing signs SKIN: No Rash Assessment & Plan Assessment/Plan (1) Diabetic ketoacidosis: (2) Hypokalemia: (3) Acute kidney injury: (4) Hyperammonemia: (5) Leukocytosis: PLAN: Patient is a 30-year-old lady brought in with altered mental status 1. Acute metabolic encephalopathy ?Secondary to DKA admitted to the intensive care unit for subsequent management -06/09/2021; DKA resolved patient started on scheduled insulin in addition to Accu-Cheks before meals and at bedtime and correction factor sliding scale 2. Diabetic ketoacidosis ?New onset diabetes. Patient presented with significant acidosis with pH of 6.7 and bicarb of 6. Admitted to the intensive care unit where patient has been managed with aggressive IV fluid resuscitation, correction of electrolytes, admi nistration of IV insulin and serial monitoring of patient progress with every 4 BMPs -06/07/2021 DKA resolved -06/08/2021. Plan is to initiate oral diet once patient passes her speech and swallow eval with initiation of long-acting insulin - 06/09/2021; DKA resolved patient started on scheduled insulin in addition to Accu-Cheks before meals and at bedtime and correction factor sliding scale 3. Acute respiratory failure ?Due to patient's significant encephalopathy. Patient was intubated in the ED to protect her airway admitted to the intensive care unit. Subsequent vent management deferred to pulmonary/intensive care medicine -06/08/2021; patient was weaned off the vent the day prior -06/09/2021; sputum cultures came back positive for strep agalactiae. Patient is on Rocephin 4. Left labial abscess ?06/08/2021 may explain for patient's leukocytosis on admission started on broad-spectrum antibiotic therapy and consult placed to FUEL RETROFITTING TECHNICIAN for possible I&D 06/09/2021; patient responded to antibiotic therapy. Was seen in consultation by FUEL RETROFITTING TECHNICIAN note and recommendations reviewed 5. Acute kidney injury ?Secondary to severe DKA on IV fluid with subsequent monitoring of electrolyte ?06/08/2021 patient kidney function remains impaired currently on IV fluids with serial monitoring of electrolytes ?06/09/2021; patient creatinine still remains elevated at 1.30 6. Alcohol dependence ?Counseled on cessation 7. Tobacco dependence - Counseled on cessation, offered nicotine patch for tobacco cravings 8. Severe hypokalemia ?Secondary to DKA aggressive repletion initiated -06/07/2021 patient still hypokalemic repletion underway -06/08/2021. Patient still remains hypokalemic despite aggressive resuscitation ?06/09/2021; no change patient potassium level additional replacement given 9. DVT prophylaxis ?Lovenox Charges/Coding Visit Charges Inpatient E&M: 47143 Subs Hosp L3
[2021-06-09] MEDS: Insulin Lispro 100 UNIT/ML INSULN.PEN SC ×7 (08:12→22:26)
[2021-06-09 08:20] LABS: Bedside Glucose 248 mg/dL (70-110)
[2021-06-09] MEDS: Potassium Chloride Oral Tablet 20 MEQ 40 MEQ PO ×2 (09:30→16:42)
[2021-06-09] MEDS: Enoxaparin 40 MG/0.4 ML Syringe SC (09:31)
[2021-06-09] MEDS: Doxycycline 100 MG CAPSULE PO ×2 (09:31→22:26)
[2021-06-09] MEDS: Nystatin/Triamcin Cream Tube 1 APPLIC TOPICAL ×2 (09:31→22:27)
--- NOTE | 2021-06-09 11:14 | CASEMGMT ---
Addendum entered by Ever Molina 06/09/21 11:27: Pt's mother states she has not called Dr Flowers's office yet to inquire about an appt, but she plans to do so soon. KWASI RUIZ also provided them w/Dr KaiserIyfq-yqcdgelcephznss-[facility] card/contact information. Original Note: KWASI RUIZ NOTE: KWASI RUIZ to room to talk w/pt and her mother, who is at bedside. Mother states she just purchased a Reli-[employer] glucometer and testing supplies at [facility] a day or 2 prior to pt's admission to the hospital and knows how to use it. Pt and mother made aware gas worker and nursing staff will be doing Diabetic teaching and nursing will teach on insulin administration. Pt states she feels she will be comfortable w/using the glucometer and administering her own insulin, stating, I used to give it to my grandma. Pt and mother made aware of CCN for on-going diabetic teaching after discharge and pt is agreeable to referral. Order placed for referral and TC to Vaibhav to inform her of referral. Noted pt was assist of 2 w/use of walker yesterday w/ambulation. Per Tracey VILLALPANDO, pt was SBA today w/out use of walker, once she was out of bed. Pt and mother both do not feel pt will need a walker at discharge. They deny further discharge planning needs at this time. Instructed to ask for CM if anything further arises. Wilfrido VILLALPANDO CM
[2021-06-09] MEDS: Menthol/Lanolin/Calamine/Znox 113 GM Tube 1 APPLIC TOPICAL ×2 (12:06→22:25)
[2021-06-09 12:15] LABS: Bedside Glucose 201 mg/dL (70-110)
[2021-06-09 16:56] LABS: Bedside Glucose 269 mg/dL (70-110)
--- NOTE | 2021-06-09 17:01 | PN.OBGYN_ITS ---
Subjective Subjective Overall feels like vulva and swelling is improving. Asymptomatic at this time. Objective Data Objective Data Vital Signs: Vital Signs Temp Pulse Resp BP Pulse Ox 97 F L 98 14 104/70 100 06/09/21 14:41 06/09/21 15:10 06/09/21 14:41 06/09/21 14:41 06/09/21 14:41 Oxygen Delivery Method Room Air Weight: 143 lb 15.39 oz Body Mass Index (BMI) 20.0 Intake & Output: Intake and Output for Last 24 Hours 06/07/21 06/08/21 06/09/21 23:59 23:59 23:59 Intake Total 5015.10 / 5015.10 4280.17 / 4280.17 1050 / 1050 Output Total 1675 / 1675 3650 / 3650 1200 / 1200 Balance 3340.10 / 3340.10 630.17 / 630.17 -150 / -150 Lab / Micro Data Result Diagrams: 06/09/21 04:25 06/09/21 04:25 Labs: Laboratory Results - last 24 hr 06/08/21 16:59: POC Glucose 127 H 06/08/21 17:00: Sodium 148 H, Potassium 3.0 L, Chloride 122 H, Carbon Dioxide 17.0 L, Anion Gap 9, BUN 14, Creatinine 1.48 H, Estim Creat Clear Calc 53.56, Est GFR (MDRD) Af Amer 53 L, Est GFR (MDRD) Non-Af 44 L, BUN/Creatinine Ratio 9.5 L, Glucose 149 H, Calcium 9.3 06/08/21 22:40: POC Glucose 205 H 06/09/21 04:25: WBC 10.0, RBC 3.44 L, Hgb 10.1 L, Hct 28.1 L, MCV 81.7, MCH 29.4, MCHC 35.9, RDW Std Deviation 56.5 H, RDW Coeff of Bret 18.9 H, Plt Count 217, MPV 10.8, Immature Gran % (Auto) 0.800, Neut % (Auto) 75.5 H, Lymph % (Auto) 13.8 L, [place] % (Auto) 9.3, Eos % (Auto) 0.3, Baso % (Auto) 0.3, Absolute Neuts (auto) 7.5, Absolute Lymphs (auto) 1.38, Nucleated RBC % 0 06/09/21 04:25: Sodium 146 H, Potassium 2.8 L, Chloride 120 H, Carbon Dioxide 20.0 L, Anion Gap 6, BUN 13, Creatinine 1.30 H, Estim Creat Clear Calc 60.97, Est GFR (MDRD) Af Amer 61, Est GFR (MDRD) Non-Af 51 L, BUN/Creatinine Ratio 10.0, Glucose 244 H, Calcium 8.6, Total Bilirubin 0.50, AST 29, ALT 21, Alkaline Phosphatase 94, Total Protein 4.7 L, Albumin 1.6 L, Globulin 3.1, Al bumin/Globulin Ratio 0.5 L 06/09/21 08:11: POC Glucose 248 H 06/09/21 11:57: POC Glucose 201 H 06/09/21 16:40: POC Glucose 269 H Micro: Microbiology 06/06/21 12:19 Sputum, Induced/Lukens Gram Stain - Final 06/06/21 12:19 Sputum, Induced/Lukens Respiratory Culture - Final Streptococcus agalactiae (B) 06/06/21 09:35 Urine, Catheterized Urine Culture - Final Streptococcus agalactiae (B) Heide albicans 06/06/21 10:10 Blood Culture (Wb) - Anticubital Right Blood Culture - Preliminary No growth in 48 hours. 06/06/21 09:40 Blood Culture (Wb) - Anticubital Left Blood Culture - Preliminary No growth in 48 hours. 06/06/21 09:25 Nasal Secretion SARS-CoV-2 Antigen (Rapid) - Final Physical Exam Const alert, oriented x3, no apparent distress, average body habitus, healthy appearing and well nourished HEENT normocephalic and moist oral mucous membranes Head and Scalp: atraumatic Face and Sinus: normal facial exam Neck full ROM Resp normal respiratory effort, no retractions and no use of accessory muscles Psych mental status grossly normal, affect normal, speech normal and activity/motor behavior normal Assessment & Plan (1) Vulval edema: PLAN: Consultation placed for ORE DRESSING ENGINEER for vulvar swelling. Seen by Dr. Waller, noted to have erythema and mild swelling but no fluid collection. Patient seen, patient declined repeat pelvic exam at this time. Feels that she does not need it with improved swelling and symptoms improving of the vulva. Overall will refer to Dr. Women's assessment, for antibiotics inpatient and discharged home on doxycycline for 7 to 10 days. Outpatient follow-up in our office. Based on inability to evaluate patient based on her preference, will sign off but we are always available if needed
[2021-06-09 19:21] LABS: Anion Gap 7 (5-15); BUN 15 mg/dL (7-18); BUN/Creat Ratio 11.2 RATIO (10-20); Calcium,Total 8.6 mg/dL (8.5-10.1); Chloride 115 mmol/L (98-107); Creatinine, Serum 1.34 mg/dL (0.55-1.02); EST Glomerular Filtration Rate 49 mL/min (>60); Est Glom Filt Rate - Afr Amer 59 mL/min (>60); Estimated Creatinine Clearance 59.15 ml/min; Glucose 348 mg/dL (74-106); Potassium 3.6 mmol/L (3.5-5.1); Sodium Level 140 mmol/L (136-145)
--- NOTE | 2021-06-09 20:11 | NURSING ---
Called report to SUPERVISOR CONTACT [employer]. Pt will travel to floor with belongings, medications, IV infusing, and on school bus monitor.
--- NOTE | 2021-06-09 20:46 | NURSING ---
Admitted to room 108 from ICU. A&O x4. Pleasant affect. VSS. NSR on telemetry. Lungs CTA. Resp effort easy, PIV #22 to right forearm with NS infusing at 15ml/hr. PIV #22 to right hand saline lock. Skin to buttocks red with scattered open areas, worst area between her buttocks. Cream applied. Encouraged pt to not scratch or pick at areas. Denies pain. All current needs met. Call light and belongings in reach.
[2021-06-09 22:40] LABS: Bedside Glucose 343 mg/dL (70-110)
[2021-06-10] VITALS (8 sets, daily range): BP systolic 96–115; BP diastolic 68–86; PULSE 74–105; RESP 15–16; TEMP 36.6–37; O2SAT 99–100
[2021-06-10 06:53] LABS: Absolute Neutrophil Count 4.7 X10^3/uL (2.0-7.7); Basophil# 0.04 X10^3/uL; Basophil% 0.6 % (0-1); Eosinophil# 0.07 X10^3/uL; Hematocrit 25.9 % (37-47); Hemoglobin 9.2 g/dL (12.0-15.0); Lymphocyte % 22.2 % (19-41); Mean Corp Hgb Conc 35.5 g/dL (32-36); Mean Corpuscular Hgb 29.6 pg (27.0-32.0); Mean Corpuscular Volume 83.3 fL (81-99); Mean Platelet Vol. 10.7 fl (6.2-12.0); Monocyte# 0.76 X10^3/uL; Monocyte% 10.6 % (0-10); NRBC Flagged by Analyzer 0 % (0-5); Neutrophil % 65.2 % (47-70); Platelet Count 209 K/mm3 (150-450); RBC Distribution Width CV 19.7 % (11.6-14.6); RBC Distribution Width SD 59.6 fl (35.1-43.9); Red Blood Count 3.11 M/mm3 (4.2-5.4); White Blood Count 7.2 K/mm3 (4.4-11.0)
[2021-06-10 07:22] LABS: ALB/GLOB Ratio 0.5 RATIO (0.9-2.4); AST(SGOT) 15 U/L (15-37); Alanine Aminotransfer ALT/SGPT 18 U/L (13-56); Albumin, Serum 1.5 g/dL (3.2-5.0); Alkaline Phosphatase 92 U/L (45-117); Anion Gap 8 (5-15); BUN 13 mg/dL (7-18); BUN/Creat Ratio 12.7 RATIO (10-20); Calcium,Total 8.6 mg/dL (8.5-10.1); Chloride 115 mmol/L (98-107); Creatinine, Serum 1.02 mg/dL (0.55-1.02); EST Glomerular Filtration Rate 67 mL/min (>60); Est Glom Filt Rate - Afr Amer 81 mL/min (>60); Estimated Creatinine Clearance 77.71 ml/min; Globulin 3.1 g/dL (2.2-4.2); Glucose 294 mg/dL (74-106); Potassium 3.1 mmol/L (3.5-5.1); Protein, Total 4.6 g/dL (6.4-8.2); Sodium Level 144 mmol/L (136-145)
[2021-06-10 07:56] LABS: Bedside Glucose 304 mg/dL (70-110)
[2021-06-10] MEDS: Potassium Chloride Oral Tablet 20 MEQ 40 MEQ PO (08:06)
[2021-06-10] MEDS: Insulin Lispro 100 UNIT/ML INSULN.PEN SC ×4 (08:07→11:26)
[2021-06-10] MEDS: Potassium Chloride 10mEq/100mL 10 MEQ/100 ML IV.SOLN. 100 MEQ IV BOLUS ×4 (09:50→13:50)
[2021-06-10] MEDS: 0.9% Saline Lock 10 ML Syringe IV (09:50)
[2021-06-10] MEDS: Doxycycline 100 MG CAPSULE PO (10:45)
[2021-06-10] MEDS: Enoxaparin 40 MG/0.4 ML Syringe SC (10:47)
[2021-06-10] MEDS: Nystatin/Triamcin Cream Tube 1 APPLIC TOPICAL (10:48)
[2021-06-10] MEDS: Pantoprazole Sodium 40 MG Tablet PO (10:50)
[2021-06-10 11:31] LABS: Bedside Glucose 240 mg/dL (70-110)
--- NOTE | 2021-06-10 11:32 | PCM.DC.SUM ---
Providers Date of Admission: 06/06/21 Primary Care Physician: Maritza Primary Care Phys Consultations 06/06/21 11:48 Consult: Electrical Test Engineer / Pulmonary Medicine Routine Consulting Provider: Pulmonary Medicine brunilda Ware Reason for Consult: Vent management EMERGENT Consult: Yes MD Notified: Yes Date Notified: 06/06/21 Time Notified: 11:48 Method of Notification: BY ED 06/08/21 09:48 Consult: CRIMINALIST TECHNICIAN Routine Consulting Provider: Camilo Waller Reason for Consult: Labial Abscesses EMERGENT Consult: No MD Notified: Yes Date Notified: 06/08/21 Time Notified: 09:59 Method of Notification: Answering Service Reason For Visit: DKA Diagnosis Discharge Diagnosis (1) Vulval edema: Status: Acute Code(s): N90.89 - Other specified noninflammatory disorders of vulva and perineum Medications at Discharge Home Medications cefdinir 300 mg PO BID #10 cap 06/10/21 doxycycline monohydrate 100 mg PO BID #14 cap 06/10/21 insulin glargine [Basaglar KwikPen U-100 Insulin] 15 unit SUBCUT BID #15 ml 06/10/21 potassium chloride [Klor-Con M20] 40 meq PO BIDCM #28 tab 06/10/21 Hospital Course Summary of Care Provided Minutes Spent on Discharge: 45 Hospital Course: Patient is a 30-year-old lady brought in with altered mental status 1. Acute metabolic encephalopathy ?Secondary to DKA admitted to the intensive care unit for subsequent management -06/09/2021; DKA resolved patient started on scheduled insulin in addition to Accu-Cheks before meals and at bedtime and correction factor sliding scale 2. Diabetic ketoacidosis ?New onset diabetes. Patient presented with significant acidosis with pH of 6.7 and bicarb of 6. Admitted to the intensive care unit where patient has been managed with aggressive IV fluid resuscitation, correction of electrolytes, administration of IV insulin and serial monitoring of patient progress with every 4 BMPs -06/07/2021 DKA resolved -06/08/2021. Plan is to initiate oral diet once patient passes her speech and swallow eval with initiation of long-acting insulin - 06/09/2021; DKA resolved patient started on scheduled insulin in addition to Accu-Cheks before meals and at bedtime and correction factor sliding scale 3. Acute respiratory failure ?Due to patient's significant encephalopathy. Patient was intubated in the ED to protect her airway admitted to the intensive care unit. Subsequent vent management deferred to pulmonary/intensive care medicine -06/08/2021; patient was weaned off the vent the day prior -06/09/2021; sputum cultures came back positive for strep agalactiae. Patient is on Rocephin 4. Left labial abscess ?06/08/2021 may explain for patient's leukocytosis on admission started on broad-spectrum antibiotic therapy and consult placed to CRIMINALIST TECHNICIAN for possible I&D 06/09/2021; patient responded to antibiotic therapy. Was seen in consultation by CRIMINALIST TECHNICIAN note and recommendations reviewed 5. Acute kidney injury ?Secondary to severe DKA on IV fluid with subsequent monitoring of electrolyte ?06/08/2021 patient kidney function remains impaired currently on IV fluids with serial monitoring of electrolytes ?06/09/2021; patient creatinine still remains elevated at 1.30 -06/10/2021; Resolved 6. Alcohol dependence ?Counseled on cessation 7. Tobacco dependence - Counseled on cessation, offered nicotine patch for tobacco cravings 8. Severe hypokalemia ?Secondary to DKA aggressive repletion initiated -06/07/2021 patient still hypokalemic repletion underway -06/08/2021. Patient still remains hypokalemic despite aggressive resuscitation ?06/09/2021; no change patient potassium level additional replacement given 9. DVT prophylaxis ?Lovenox Physical Exam Narrative GENERAL: Awake HEENT: Atraumatic; EYES; Anicteric, Normal Conjunctiva NECK; supple, normal thyroid, RESPIRATORY: Diminished to auscultation CARDIOVASCULAR: Regular S1 S2, GI: soft, normoactive bowel sounds, MUSCULOSKELETAL: no muscle waisting NEURO: Grossly intact no lateralizing signs SKIN: No Rash Weight / BMI Weight Weight: 65.8 kg Body Mass Index (BMI) 20.0 ABG / Lab / Microbiology Data Result Diagrams: 06/10/21 06:25 06/10/21 06:25 Laboratory: Laboratory Results - last 24 hr 06/09/21 11:57: POC Glucose 201 H 06/09/21 16:40: POC Glucose 269 H 06/09/21 18:30: Sodium 140, Potassium 3.6, Chloride 115 H, Carbon Dioxide 18.0 L, Anion Gap 7, BUN 15, Creatinine 1.34 H, Estim Creat Clear Calc 59.15, Est GFR (MDRD) Af Amer 59 L, Est GFR (MDRD) Non-Af 49 L, BUN/Creatinine Ratio 11.2, Glucose 348 H, Calcium 8.6 06/09/21 22:23: POC Glucose 343 H 06/10/21 06:25: WBC 7.2, RBC 3.11 L, Hgb 9.2 L, Hct 25.9 L, MCV 83.3, MCH 29.6, MCHC 35.5, RDW Std Deviation 59.6 H, RDW Coeff of Bret 19.7 H, Plt Count 209, MPV 10.7, Immature Gran % (Auto) 0.400, Neut % (Auto) 65.2, Lymph % (Auto) 22.2, [place] % (Auto) 10.6 H, Eos % (Auto) 1.0, Baso % (Auto) 0.6, Absolute Neuts (auto) 4.7, Absolute Lymphs (auto) 1.60, Nucleated RBC % 0 06/10/21 06:25: Sodium 144, Potassium 3.1 L, Chloride 115 H, Carbon Dioxide 21.0, Anion Gap 8, BUN 13, Creatinine 1.02, Estim Creat Clear Calc 77.71, Est GFR (MDRD) Af Amer 81, Est GFR (MDRD) Non-Af 67, BUN/Creatinine Ratio 12.7, Glucose 294 H, Calcium 8.6, Total Bilirubin 0.30, AST 15, ALT 18, Alkaline Phosphatase 92, Total Protein 4.6 L, Albumin 1.5 L, Globulin 3.1, Albumin/Globulin Ratio 0.5 L 06/10/21 07:47: POC Glucose 304 H 06/10/21 11:25: POC Glucose 240 H Microbiology: Microbiology 06/06/21 12:19 Sputum, Induced/Lukens Gram Stain - Final 06/06/21 12:19 Sputum, Induced/Lukens Respiratory Culture - Final Streptococcus agalactiae (B) 06/06/21 09:35 Urine, Catheterized Urine Culture - Final Streptococcus agalactiae (B) Heide albicans 06/06/21 10:10 Blood Culture (Wb) - Anticubital Right Blood Culture - Preliminary No growth in 48 hours. 06/06/21 09:40 Blood Culture (Wb) - Anticubital Left Blood Culture - Preliminary No growth in 48 hours. 06/06/21 09:25 Nasal Secretion SARS-CoV-2 Antigen (Rapid) - Final D/C Instructions Discharge Diet: 1800 Calorie Control Diet Meaningful Use Info Meaningful Use Diagnoses (Choose all that apply): None applicable Discharge Plan Admission Admit Date/Time: 06/06/21 11:19 Attending Provider: Andrew Mace Primary Care Provider: Care Physician,No Primary Consulting Providers: Mike Howard ; Len Coyne ; Lary Lundberg POCKET SETTER ; Camilo Waller Discharge Orders/Prescriptions Prescriptions: New potassium chloride [Klor-Con M20] 20 mEq Tablet,Er Particles/Crystals 40 meq PO BIDCM Qty: 28 RF: 0 doxycycline monohydrate 100 mg Capsule 100 mg PO BID Qty: 14 RF: 0 cefdinir 300 mg capsule 300 mg PO BID Qty: 10 RF: 0 Basaglar KwikPen U-100 Insulin 100 unit/mL (3 mL) insulin pen 15 unit subcut BID Qty: 15 RF: 0 Referrals / Follow Up: Camilo Waller MD [STAFF PHYSICIAN] - Within 2 Weeks Meena Flowers DO [STAFF PHYSICIAN] - In 1 Week Care Physician,No Primary [Primary Care Provider] - In 1 Week Disposition Disposition (needs filled in before D/C Order can be placed): Home, Self Care Charges/Coding Visit Charges Inpatient E&M: 59812 Disch Hosp
--- NOTE | 2021-06-10 12:24 | CASEMGMT ---
This RN CM to room to discuss d/c plan with pt/mother. Pt/mother states no further concerns/needs with going home at this time. Mother states she already purchased glucometer/supplies and pt states no concerns with doing insulin injections. Pt/mother voice no further questions/concerns/needs. [place]en KWASI RUIZ
--- NOTE | 2021-06-10 13:25 | NURSING ---
Read and reviewed SN documentation
--- NOTE | 2021-07-06 14:01 | CCN.REFER ---
VOICEMAILS LEFT ON 06/21, 06/23, AND 07/05 TO PATIENT AND MOTHER LEWIS W/ NO RETURNED CALLS.
== END 2021-06-10 16:33 | disposition home or self-care (01) | DRG 420 ==
LOC: ED 09:23 → ICU 11:42 → PCU 06-09 20:26
PROVIDERS: Internal Medicine Critical Care Medicine; Admitting Provider Internal Medicine; Emergency Provider Emergency Medicine; Visit Provider Internal Medicine
DX: E11.11 Type 2 diabetes mellitus with ketoacidosis with coma (principal); J96.01 Acute respiratory failure with hypoxia; E72.20 Disorder of urea cycle metabolism, unspecified; N17.9 Acute kidney failure, unspecified; E87.0 Hyperosmolality and hypernatremia; B37.3 Candidiasis of vulva and vagina; F10.20 Alcohol dependence, uncomplicated; E87.6 Hypokalemia; J96.02 Acute respiratory failure with hypercapnia; Z79.4 Long term (current) use of insulin; F17.210 Nicotine dependence, cigarettes, uncomplicated; N76.4 Abscess of vulva; Q51.3 Bicornate uterus; N80.9 Endometriosis, unspecified
CPT/HCPCS: 31500; 36415; 36600; 51702; 70450; 71045; 80048; 80053; 80307; 81001; 81025; 82009; 82077; 82140; 82550; 82803; 82962; 83036; 83605; 83735; 84100; 84443; 84484; 85025; 85610; 85730; 87040; 87070; 87077; 87086; 87088; 87186; 87205; 87426; 87641; 92526; 92610; 93005; 94002; 94003; 94660; 94762; 97110; 97162; 97530; 97802; 97803; 99251; 99285; J7030; J7050; J7120; P9612; A4216; G0463; J0696; J3010

== ENCOUNTER 2021-08-30 19:35 | Inpatient (IN) | payer MEDICAID, SELFPAY ==
[2021-08-30] VITALS (9 sets, daily range): BP systolic 132–178; BP diastolic 78–118; PULSE 118–155; RESP 23–34; TEMP 36.2–37.2; O2SAT 100; BMI 24.0
[2021-08-30 20:16] LABS: Bedside Glucose 482 mg/dL (70-110)
--- NOTE | 2021-08-30 20:16 | EKG12_ITS ---
Test Reason : DYSRHYTHMIA Blood Pressure : / mmHG Vent. Rate : 128 BPM Atrial Rate : 128 BPM P-R Int : 150 ms QRS Dur : 080 ms QT Int : 302 ms P-R-T Axes : 077 026 070 degrees QTc Int : 440 ms Sinus tachycardia Low voltage QRS Confirmed by LILIBETH JENNINGS, BEHZAD ([id number]), editorial director SABRINA MCCLELLAN ([id number]) on 09/01/2021 8:18:38 AM Referred By: NIYA Confirmed By:BEHZAD MCELROY MD
[2021-08-30] MEDS: 0.9% Normal Saline 1,000 ML 999 ML IV ×2 (20:31→21:56)
[2021-08-30 20:38] LABS: Absolute Lymphocyte Count 1.83 X10^3/uL (0.83-4.51); Absolute Neutrophil Count 9.5 X10^3/uL (2.0-7.7); Basophil# 0.09 X10^3/uL; Basophil% 0.7 % (0-1); Hematocrit 48.8 % (37-47); Hemoglobin 15.6 g/dL (12.0-15.0); Lymphocyte # 1.83 X10^3/ul (0.83-4.51); Lymphocyte % 14.5 % (19-41); Mean Corpuscular Hgb 31.3 pg (27.0-32.0); Mean Corpuscular Volume 97.8 fL (81-99); Monocyte% 7.9 % (0-10); NRBC Flagged by Analyzer 0 % (0-5); Neutrophil # 9.53 X10^3/uL (2.7-7.7); Neutrophil % 75.5 % (47-70); Platelet Count 506 K/mm3 (150-450); Red Blood Count 4.99 M/mm3 (4.2-5.4); White Blood Count 12.6 K/mm3 (4.4-11.0)
[2021-08-30] MEDS: Sodium Bicarbonate 8.4% 50 ML Syringe 50 MEQ IV (20:41)
[2021-08-30 20:49] LABS: Internal QC Validated? YES +Cl - CLEAR BKGD; Pregnancy, Serum, hCG Quali. NEGATIVE Negative
[2021-08-30 21:06] LABS: Anion Gap 25 (5-15); BUN 9 mg/dL (7-18); BUN/Creat Ratio 7.2 RATIO (10-20); Calcium,Total 8.5 mg/dL (8.5-10.1); Chloride 101 mmol/L (98-107); Creatinine, Serum 1.25 mg/dL (0.55-1.02); EST Glomerular Filtration Rate 53 mL/min (>60); Est Glom Filt Rate - Afr Amer 64 mL/min (>60); Estimated Creatinine Clearance 49.21 ml/min; Glucose 485 mg/dL (74-106); Sodium Level 130 mmol/L (136-145)
[2021-08-30 21:10] LABS: Bacteria 0 SEEN /hpf (None Seen); Mucous, Urine 0 SEEN /hpf (<or=2+); Red Blood Cells-Urine 0 SEEN /hpf (0-5)
[2021-08-30 21:25] LABS: Bedside Glucose 442 mg/dL (70-110)
[2021-08-30 21:40] LABS: Blood Gas Specimen Type VEN; O2 Delivery Device Room Air; VBG BASE EXCESS -30 mmol/L (-1.0-3.5); VBG PO2 61 mmHg (25-40); VBG SO2 70 % (50-70); VBG TCO2 < 5 mmol/L (23-33); VBG pCO2 16.5 mmHg (41-51); VBG pH 6.89 (7.32-7.42)
[2021-08-30 21:46] LABS: Color, Urine Yellow (Yellow); Glucose, Dipstick 1000 mg/dl (Normal); Leukocyte Esterase-Dipstick Negative /ul (Negative); Nitrite-Dipstick Negative (Negative); Occult Blood-Urine 25 /ul (Negative); Protein-Dipstick 100 mg/dl (Negative); Urine Bilirubin Dipstick Negative (Negative); Urine Clarity Sl. Cloudy (Clear); Urine Urobilinogen Normal (Normal)
[2021-08-30 22:06] LABS: Bedside Glucose 406 mg/dL (70-110)
--- NOTE | 2021-08-30 22:13 | EX.ED.DYSGE1 ---
HPI History of Present Illness Chief Complaint: Hyperglycemia Detail of Chief Complaint: Hyperglycemia Informant: patient and family Onset/Context/Timing Onset: - (Uncertain uncertainUncertain uncertain) Quality: Apnea, tachycardia, dry mouth Location: Endocrine Current Severity: Moderate Maximum Severity: Moderate Worsened by: Noncompliance with insulin and diet Relieved by: Not applicable Associated Symptoms Associated Symptoms: Polydipsia, Narrative Narrative: Patient is a 30-year-old woman who was diagnosed with type 1 diabetes the end of 2020. Patient admits that she has not been compliant with insulin or diet. Patient complains of polydipsia, polyuria, thirst and dry mouth. She has not checked her blood sugar recently. She denies fever, chills night sweats. She does report blurred vision. She denies double vision or loss of vision. [place] ringing in ears decreased hearing. Denies rhinorrhea, congestion, postnasal drainage and sore throat. She denies cough or sputum production. She denies chest discomfort. She does report nausea with mild vomiting. She denies diarrhea. She denies dysuria, urgency or hematuria. She denies skin lesion or rash. She denies paresthesia, anesthesia or motor weakness. Prior similar symptoms: Yes Recent Illness/Hospitalization: No PFSH PFSH Medical History Alcohol abuse Diabetes Home Medications insulin glargine [Basaglar KwikPen U-100 Insulin] 15 unit SUBCUT BID #15 ml 06/10/21 [Rx Last Taken Unknown] potassium chloride [Klor-Con M20] 40 meq PO BIDCM #28 tab 06/10/21 [Rx Last Taken Unknown] Allergy/AdvReac Type Severity Reaction Status Date / Time BEES Allergy Anaphylaxis Uncoded 11/16/20 10:18 Family History Grandmother Diabetes Surgical History History of partial hysterectomy Hx of tonsillectomy Social History household members: none current occupational exposures/hazards: No Smoking Status: Current every day smoker tobacco type: cigarettes alcohol intake: current alcohol intake frequency: holidays/special occasions only substance use type: does not use ROS ROS ED Constitutional Constitutional ED: Denies chills, fever(s), subjective, sweats or weight loss Eyes Eyes: Reports blurry vision; Denies change in vision or diplopia ENT ENT ED: Denies ear pain, rhinorrhea or sore throat Cardiovascular Cardiovascular: Reports palpitations; Denies chest pain, orthopnea, paroxysmal nocturnal dyspnea or racing heartbeat Respiratory/Chest Respiratory/Chest: Reports dyspnea; Denies cough, dyspnea on exertion, orthopnea, paroxysmal nocturnal dyspnea or sputum Gastrointestinal Gastrointestinal: Reports abdominal pain, nausea and vomiting; Denies constipation or diarrhea Genitourinary Genitourinary ED: Denies dysuria, hematuria or urinary frequency Musculoskeletal Musculoskeletal: Denies arthralgias, back pain, myalgias or neck pain Integumentary Denies rash Neurologic Neurologic: Reports weakness; Denies headache(s) or paresthesias Endocrine Endocrinology: Reports polydipsia and polyuria; Denies cold intolerance, heat intolerance or polyphagia EXAM Physical Exam Const Vital Signs: 08/30/21 19:36 08/30/21 19:54 08/30/21 20:45 Temperature 97.1 F L Temperature Source Temporal Pulse Rate 155 H 133 H 120 H Respiratory Rate 34 H 23 H 28 H Blood Pressure 155/106 H 178/118 H 154/96 H Blood Pressure Mean 122 138 115 Pulse Ox 100 100 100 Oxygen Delivery Method Room Air Room Air Room Air 08/30/21 21:08 Temperature Temperature Source Pulse Rate 128 H Respiratory Rate 32 H Blood Pressure 150/102 H Blood Pressure Mean 118 Pulse Ox 100 Oxygen Delivery Method Room Air Positive well nourished and well developed General Appearance ED: well developed and other Patient appears ill. She is tachycardic, she tachypneic and has odor of ketones to her breath. ; Negative for cyanotic, diaphoretic, NAD or pallor HEENT Reports TM's clear and dry mucous membranes HEENT Narrative: Uvula midline. No erythema or exudate posterior pharynx. Conjunctive is pink. Sclerae anicteric. Negative for trauma or tenderness Tympanic Membrane ED: Yes TM's clear Mouth ED: Yes dry mucous membranes Mouth: dry mucous membranes Eyes PERRL and EOMs intact bilaterally General Eye ED: Negative for pale conjunctiva or scleral icterus Neck no lymphadenopathy, supple and no JVD Chest Wall inspection of chest normal and palpation of chest normal Resp No normal respiratory effort and clear to auscultation bilaterally Effort and Inspection: Negative for pain with movement Cardio regular rhythm, S1 normal heart sound, S2 normal heart sound and no murmurs Rate: tachycardic GI normal to inspection, nondistended, normoactive bowel sounds and non-distended Inspection: Negative for abdominal distention Auscultation: hypoactive bowel sounds Palpation: soft and tender other (Mild diffuse discomfort) Back/Spine no CVA tenderness Cervical Spine: Negative for cervical spine tenderness Thoracic Spine / Upper Back: Negative for thoracic spinal tenderness or paraspinal muscle tenderness Extremity Negative for normal to inspection General Extremety ED: Negative for tenderness Neuro oriented x3, CN's II-XII intact bilaterally and no sensory deficits noted Sensorium / Orientation: alert Motor Exam: strength 5/5 throughout Psych mental status grossly normal Skin no rashes or lesions noted, no wounds and No skin turgor normal General Skin Exam: Negative for jaundice or pallor MDM MDM MDM Narrative Medical decision making narrative: Clinical presentation consistent with DKA. DKA order set was initiated. Patient's VBG reveals a pH of 6.88. 269.5.vth015.6. bicarb 3.2 with a base excess of -29.9. Since patient has a pH less than 691 amp of bicarb was ordered. Patient has a normal potassium in the setting of metabolic acidosis and DKA. One half normal with 20 mg of potassium chloride was added at 250 cc/h. Patient was started on insulin drip after she received 2 L of fluids that she is profoundly dehydrated. Lab Data Attestation: I reviewed the patient's lab results. Lab results narrative: White count is elevated which is nonsignificant. There is slight increase in neutrophils with no been ketones positive. BG T4 182. CO2 is is 4 with an anion gap of 25. Blood sugar 185. Labs: Laboratory Results - last 24 hr 08/30/21 08/30/21 08/30/21 20:09 20:20 20:20 WBC 12.6 H RBC 4.99 Hgb 15.6 H Hct 48.8 H MCV 97.8 MCH 31.3 MCHC 32.0 RDW Std Deviation 51.0 H RDW Coeff of Bret 14.0 Plt Count 506 H MPV 10.0 Immature Gran % (Auto) 1.400 H Neut % (Auto) 75.5 H Lymph % (Auto) 14.5 L [place] % (Auto) 7.9 Eos % (Auto) 0.0 Baso % (Auto) 0.7 Absolute Neuts (auto) 9.5 H Absolute Lymphs (auto) 1.83 Nucleated RBC % 0 Sodium Potassium Chloride Carbon Dioxide Anion Gap BUN Creatinine Estim Creat Clear Calc Est GFR (MDRD) Af Amer Est GFR (MDRD) Non-Af BUN/Creatinine Ratio Glucose Calcium Serum , Qual Acetone Level MODERATE H POC Glucose 482 H* 08/30/21 08/30/21 08/30/21 20:20 20:20 21:18 WBC RBC Hgb Hct MCV MCH MCHC RDW Std Deviation RDW Coeff of Bret Plt Count MPV Immature Gran % (Auto) Neut % (Auto) Lymph % (Auto) [place] % (Auto) Eos % (Auto) Baso % (Auto) Absolute Neuts (auto) Absolute Lymphs (auto) Nucleated RBC % Sodium 130 L Potassium 5.0 Chloride 101 Carbon Dioxide 4.0 L* Anion Gap 25 H BUN 9 Creatinine 1.25 H Estim Creat Clear Calc 49.21 Est GFR (MDRD) Af Amer 64 Est GFR (MDRD) Non-Af 53 L BUN/Creatinine Ratio 7.2 L Glucose 485 H* Calcium 8.5 Serum , Qual NEGATIVE Acetone Level POC Glucose 442 H 08/30/21 21:55 WBC RBC Hgb Hct MCV MCH MCHC RDW Std Deviation RDW Coeff of Bret Plt Count MPV Immature Gran % (Auto) Neut % (Auto) Lymph % (Auto) [place] % (Auto) Eos % (Auto) Baso % (Auto) Absolute Neuts (auto) Absolute Lymphs (auto) Nucleated RBC % Sodium Potassium Chloride Carbon Dioxide Anion Gap BUN Creatinine Estim Creat Clear Calc Est GFR (MDRD) Af Amer Est GFR (MDRD) Non-Af BUN/Creatinine Ratio Glucose Calcium Serum , Qual Acetone Level POC Glucose 406 H ABG Data ABG results: ABG 08/30/21 20:28 Specimen Type BETHANY VBG pH 6.89 L* VBG pO2 61 H VBG Total CO2 < 5 L VBG O2 Sat (Calc) 70 VBG Base Excess -30 L POC Mix VBG pCO2 Pt Tmp 16.5 L* O2 Delivery Device Room Air Crit Call To/Read Back Yes Blood Gas Notified Whom Rohith Blood Gas Notified Time 20:29:48 EKG Initial EKG: Attestation: I personally reviewed and interpreted this EKG as follows: Interpretation: Sinus Tachycardia (Ventricular rate is 107. [place] interval is 140 ms. QRS duration 98 ms. QT duration 332 ms. [place] is normal.) Critical Care Time Critical Care Time: Yes Critical care time (excluding procedures): 30-74 minutes (33 minutes), Including time spent: (History, physical, documentation, review of prior records interpretation laboratory results initiation of therapy), Discussing w/Patient &/or Family/[employer]iler [employer]er, Discussing w/Consultants and Arranging Admission or Transfer Discharge Plan Triage Chief Complaint: Hyperglycemia ED Provider: Chato Newberry Dx/Rx/DC Orders Clinical Impression: Diabetic ketoacidosis associated with type 1 diabetes mellitus Prescriptions: No Action potassium chloride [Klor-Con M20] 20 mEq Tablet,Er Particles/Crystals 40 meq PO BIDCM Qty: 28 RF: 0 Basaglar KwikPen U-100 Insulin 100 unit/mL (3 mL) insulin pen 15 unit subcut BID Qty: 15 RF: 0 Primary Care Provider: Meena Flowers Referrals: Meena Flowers [Primary Care Provider] - Disposition Disposition: Acute Care Hospital [facility]
--- NOTE | 2021-08-30 22:29 | HP.PCM.HOS_ITS ---
[facility] - General General Date of Admission: 08/30/21 HPI Narrative BRETT BOBBY, is a 30 F with a significant history of tobacco abuse and diabetic mellitus who presents to the emergency department with a 2-day history of progressively worsening shortness of breath. Associated with her symptoms is palpitations and syncope. Reportedly she had a syncopal episode and fell landing on her tailbone. She denies polydipsia but she has been forcing herself to drink. She reports anorexia. [facility] Medical History Alcohol abuse Diabetes Home Medications insulin glargine [Basaglar KwikPen U-100 Insulin] 15 unit SUBCUT BID #15 ml 06/10/21 [Rx Last Taken Unknown] potassium chloride [Klor-Con M20] 40 meq PO BIDCM #28 tab 06/10/21 [Rx Last Taken Unknown] Allergy/AdvReac Type Severity Reaction Status Date / Time BEES Allergy Anaphylaxis Uncoded 11/16/20 10:18 Family History Grandmother Diabetes Surgical History History of partial hysterectomy Hx of tonsillectomy Social History household members: none current occupational exposures/hazards: No Smoking Status: Current every day smoker tobacco type: cigarettes alcohol intake: current alcohol intake frequency: holidays/special occasions only substance use type: does not use ROS ROS Narrative Constitutional: Denies fever, chills, anorexia and change in weight Eyes: Denies blurry vision, change in eye color, change in vision, discharge from eye(s), double vision, erythema, eye pain, loss of vision or other HEENT: Denies abnormal hearing, dysphagia, ear pain, epistaxis, headache(s), hearing loss, nasal congestion, nasal discharge, post nasal drip, sinus pressure, sore throat or other Cardiovascular: Reports palpitations. Denies chest pain. Respiratory/Chest: Reports shortness of breath. Denies wheezes. Gastrointestinal: Reports abdominal pain. Reports nausea and vomiting. Denies hematemesis or hematochezia. Genitourinary: Denies burning urination, difficulty urinating, dysuria, hematuria, urinary hesitancy, urinary incontinence, urinary urgency or other Musculoskeletal: Reports pain at the coccyx. Denies neck pain or other Neurologic: Denies abnormal gait, abnormal speech, confusion, disequilibrium, dizziness, focal weakness, headache(s), numbness, paresthesias, seizure-like activity, seizures, syncope, tingling, tremor(s) or other Psychiatric: Denies anxiety, depression, homicidal ideation, suicidal ideation or other Endocrinology: Denies change in body appearance, cold intolerance, excessive sweating, heat intolerance, polydipsia, polyuria or other Hematologic/Lymphatic: Denies anemia, easy bleeding, easy bruising, lymphadenopathy or other Integumentary: Denies rashes Allergic/Immunologic: Denies rhinitis, hives, eczema, asthma or other Vital Signs Vital Signs Vital Signs: 08/30/21 19:36 08/30/21 19:54 08/30/21 20:45 Temperature 97.1 F L Temperature Source Temporal Pulse Rate 155 H 133 H 120 H Respiratory Rate 34 H 23 H 28 H Blood Pressure 155/106 H 178/118 H 154/96 H Blood Pressure Mean 122 138 115 Pulse Ox 100 100 100 Oxygen Delivery Method Room Air Room Air Room Air 08/30/21 21:08 08/30/21 22:24 Temperature 98.9 F Temperature Source Temporal Pulse Rate 128 H 118 H Respiratory Rate 32 H 26 H Blood Pressure 150/102 H 144/78 H Blood Pressure Mean 118 100 Pulse Ox 100 100 Oxygen Delivery Method Room Air Room Air Weight Weight: 57.606 kg Body Mass Index (BMI) 24.0 Physical Exam Narrative Physical exam: General: Well-nourished, well-developed. Head: Normocephalic, atraumatic, no tenderness Eyes: PERRLA, EOMI ENT, no trauma, dry mucous membranes, no rhinorrhea Neck: Nontender, full range of motion, no spinal tenderness, deformities, step-o ff CVS: Tachycardia.. S1-S2 present. No murmur, gallop or rub. Respiratory : Tachypnea. Clear to auscultation bilaterally, chest wall nontender, no wheezing Abdomen: Soft, nontender, nondistended, normal bowel sounds, no masses : Declined genital urinary exams to check her coccyx and stated that she is in her period. Back: Nontender, no CVA tenderness, no midline spinal tenderness, deformities, step-offs Extremities: Nontender full range of motion, no trauma Skin: Normal color, no trauma, abrasions Neuro: Alert, oriented, cranial nerves II through XII grossly intact. Psychiatry: Normal mood. Normal affect. Not depressed. Not anxious. Results Lab / Micro Data Result Diagrams: 08/30/21 20:20 08/30/21 22:13 Labs: Laboratory Results - last 24 hr 08/30/21 20:09: POC Glucose 482 H* 08/30/21 20:20: WBC 12.6 H, RBC 4.99, Hgb 15.6 H, Hct 48.8 H, MCV 97.8, MCH 31.3, MCHC 32.0, RDW Std Deviation 51.0 H, RDW Coeff of Bret 14.0, Plt Count 506 H, MPV 10.0, Immature Gran % (Auto) 1.400 H, Neut % (Auto) 75.5 H, Lymph % (Auto) 14.5 L, [place] % (Auto) 7.9, Eos % (Auto) 0.0, Baso % (Auto) 0.7, Absolute Neuts (auto) 9.5 H, Absolute Lymphs (auto) 1.83, Nucleated RBC % 0 08/30/21 20:20: Acetone Level MODERATE H 08/30/21 20:20: Serum , Qual NEGATIVE 08/30/21 20:20: Sodium 130 L, Potassium 5.0, Chloride 101, Carbon Dioxide 4.0 L* , Anion Gap 25 H, BUN 9, Creatinine 1.25 H, Estim Creat Clear Calc 49.21, Est GFR (MDRD) Af Amer 64, Est GFR (MDRD) Non-Af 53 L, BUN/Creatinine Ratio 7.2 L, Glucose 485 H*, Calcium 8.5 08/30/21 21:18: POC Glucose 442 H 08/30/21 21:55: POC Glucose 406 H ABG Data ABG results: ABG 08/30/21 20:28 Specimen Type BETHANY VBG pH 6.89 L* VBG pO2 61 H VBG Total CO2 < 5 L VBG O2 Sat (Calc) 70 VBG Base Excess -30 L POC Mix VBG pCO2 Pt Tmp 16.5 L* O2 Delivery Device Room Air Crit Call To/Read Back Yes Blood Gas Notified Whom [facility]berry Blood Gas Notified Time 20:29:48 Assessment & Plan Assessment/Plan (1) DKA (diabetic ketoacidoses): QUALIFIERS: Diabetes mellitus type: other specified (including PAKO) Diabetes mellitus complication detail: without coma Qualified Code(s): E13.10 - Other specified diabetes mellitus with ketoacidosis without coma PLAN: DKA Diabetes unclear whether type I or type II The patient reports non-compliance with home insulin therapy citing incidents of hypoglycemia On presentation Serum glucose: 485 on presentation Serum acetone level: moderate. Elevated urine ketones Anion gap of 25 [id number]. Corrected sodium: 136 Bicarb of 4. VBG showed a pH of 6.89. Received an amp of sodium bicarbonate at the ED. Insulin drip started from emergency department; continue Completed IV bolus of normal saline and was started on half-normal saline with 20 of potassium at the emergency department; continued BMP every 4 hours to calculate anion gap. N.p.o. for now Review of record showed an A1c on 06/06/2021 was 11.6 Admitted to ICU Zofran IV prn ordered. Leukocytosis and thrombocytosis White counts on presentation was 12.6. Platelets on presentation was 506. Likely reactive. Trend. CKD stage IIIa Likely secondary to diabetic mellitus Stable. Tobacco abuse Counseled. Declined nicotine patch DVT prophylaxis Subcutaneous Lovenox ordered Charges/Coding Visit Charges Inpatient E&M: 32727 Init Hosp L3
[2021-08-30 22:34] LABS: Ketone-Dipstick 150 mg/dl (Negative)
[2021-08-30 22:35] LABS: Fine Granular Cast- Urine 5-10 SEEN /lpf (0-5); Squamous Epithelial Cells - UA 0-5 SEEN /hpf (5-10); Trichomonas 0-5 SEEN /hpf (None Seen); White Blood Cells 0-5 SEEN /hpf (0-5)
[2021-08-30 22:35] LABS: BUN 7 mg/dL (7-18); Creatinine, Serum 1.05 mg/dL (0.55-1.02); EST Glomerular Filtration Rate 65 mL/min (>60); Estimated Creatinine Clearance 58.58 ml/min; Glucose 432 mg/dL (74-106)
[2021-08-30 22:36] LABS: Anion Gap 21 (5-15); BUN/Creat Ratio 6.7 RATIO (10-20); Calcium,Total 7.3 mg/dL (8.5-10.1); Chloride 108 mmol/L (98-107); Est Glom Filt Rate - Afr Amer 78 mL/min (>60); Potassium 4.9 mmol/L (3.5-5.1); Sodium Level 133 mmol/L (136-145)
[2021-08-30] MEDS: Ondansetron 4 MG/2 ML Vial IV (23:56)
[2021-08-31] VITALS (16 sets, daily range): BP systolic 89–129; BP diastolic 65–90; PULSE 91–126; RESP 18–98; TEMP 36.3–36.9; O2SAT 22–100
[2021-08-31 02:12] LABS: Anion Gap 20 (5-15); BUN 6 mg/dL (7-18); BUN/Creat Ratio 6.8 RATIO (10-20); Calcium,Total 7.3 mg/dL (8.5-10.1); Chloride 111 mmol/L (98-107); Creatinine, Serum 0.88 mg/dL (0.55-1.02); EST Glomerular Filtration Rate 80 mL/min (>60); Est Glom Filt Rate - Afr Amer 96 mL/min (>60); Glucose 318 mg/dL (74-106); Potassium 4.4 mmol/L (3.5-5.1); Sodium Level 136 mmol/L (136-145)
[2021-08-31] MEDS: Sodium Bicarbonate 8.4% 50 ML Syringe 50 MEQ IV (02:17)
[2021-08-31] MEDS: 0.9% Saline Lock 10 ML Syringe IV (02:20)
[2021-08-31 02:23] LABS: Bedside Glucose 399 mg/dL (70-110)
[2021-08-31 02:23] LABS: Bedside Glucose 387 mg/dL (70-110)
[2021-08-31 03:36] LABS: Bedside Glucose 344 mg/dL (70-110)
[2021-08-31 03:36] LABS: Bedside Glucose 293 mg/dL (70-110)
[2021-08-31 06:56] LABS: Bedside Glucose 224 mg/dL (70-110)
[2021-08-31 06:56] LABS: Bedside Glucose 301 mg/dL (70-110)
[2021-08-31 06:56] LABS: Bedside Glucose 232 mg/dL (70-110)
[2021-08-31 07:01] LABS: Bedside Glucose 301 mg/dL (70-110)
[2021-08-31 07:04] LABS: Absolute Lymphocyte Count 1.47 X10^3/uL (0.83-4.51); Absolute Neutrophil Count 7.7 X10^3/uL (2.0-7.7); Basophil# 0.04 X10^3/uL; Basophil% 0.4 % (0-1); Eosinophil# 0.01 X10^3/uL; Eosinophils% 0.1 % (0-5); Hematocrit 33.4 % (37-47); Hemoglobin 10.9 g/dL (12.0-15.0); Lymphocyte # 1.47 X10^3/ul (0.83-4.51); Lymphocyte % 14.1 % (19-41); Mean Corp Hgb Conc 32.6 g/dL (32-36); Mean Corpuscular Hgb 30.7 pg (27.0-32.0); Mean Corpuscular Volume 94.1 fL (81-99); Mean Platelet Vol. 9.7 fl (6.2-12.0); Monocyte# 1.15 X10^3/uL; NRBC Flagged by Analyzer 0 % (0-5); Neutrophil # 7.72 X10^3/uL (2.7-7.7); Neutrophil % 73.9 % (47-70); Platelet Count 285 K/mm3 (150-450); RBC Distribution Width SD 48.2 fl (35.1-43.9); Red Blood Count 3.55 M/mm3 (4.2-5.4); White Blood Count 10.4 K/mm3 (4.4-11.0)
[2021-08-31 07:25] LABS: Anion Gap 11 (5-15); BUN 5 mg/dL (7-18); BUN/Creat Ratio 5.6 RATIO (10-20); Chloride 113 mmol/L (98-107); EST Glomerular Filtration Rate 78 mL/min (>60); Est Glom Filt Rate - Afr Amer 94 mL/min (>60); Estimated Creatinine Clearance 68.34 ml/min; Glucose 297 mg/dL (74-106); Potassium 3.5 mmol/L (3.5-5.1); Sodium Level 135 mmol/L (136-145)
[2021-08-31 07:44] LABS: VBG Bicarbonate 3 mmol/L (22-26)
[2021-08-31 08:51] LABS: Bedside Glucose 345 mg/dL (70-110)
[2021-08-31] MEDS: Enoxaparin 40 MG/0.4 ML Syringe SC (09:55)
[2021-08-31 09:56] LABS: Bedside Glucose 304 mg/dL (70-110)
[2021-08-31 09:56] LABS: Bedside Glucose 303 mg/dL (70-110)
--- NOTE | 2021-08-31 10:00 | CASEMGMT ---
KWASI RUIZ Face to Face with patient for initial transition planning/care coordination assessment. KWASI RUIZ introduced self and role at [facility]. Patient lying in bed, alert and oriented. Patient willing to participate in assessment and is able to answer all questions appropriately. Care providers, pharmacy, and demographics verified. Patient wishes to discharge home, denies need for home health at this time. Patient states she has no further needs or concerns at this time. CM to follow for discharge planning needs that may arise. PCP: Lionel Specialists: Patient requesting to follow with Dr. Job CM called and left message to make appt. [facility]erred [facility]acy: [facility] Insurance: [employer] Prescription Benefit: yes Living Will/HPOA: none LNOK: mother Living Arrangements: Patient lives alone in a 2 story home. Patient states she is independent and able to ambulate stairs. Transportation: self, mother DME/HHC: Patient states she has glucometer, testing supplies, insulin, and needles at home. Patient to follow up with diabetic clinic per [employer] tube bender. KWASI RUIZ inquired if patient had preferences for appts and patient stated no. Loli, [employer] tube bender, updated regarding no preferences for appts. Loli to schedule appt. Disposition Plan: Patient to discharge home with family support and follow-up plans in place. Sarah ORELLANA, RN, CM
[2021-08-31 10:09] LABS: Anion Gap 8 (5-15); BUN 5 mg/dL (7-18); BUN/Creat Ratio 5.4 RATIO (10-20); Calcium,Total 8.2 mg/dL (8.5-10.1); Chloride 114 mmol/L (98-107); Creatinine, Serum 0.93 mg/dL (0.55-1.02); EST Glomerular Filtration Rate 74 mL/min (>60); Est Glom Filt Rate - Afr Amer 90 mL/min (>60); Estimated Creatinine Clearance 66.14 ml/min; Glucose 326 mg/dL (74-106); Potassium 3.4 mmol/L (3.5-5.1); Sodium Level 136 mmol/L (136-145)
--- NOTE | 2021-08-31 10:24 | PN.HOSP_ITS ---
Subjective Subjective Patient seen and examined. She had no active complaints. She says she passed out whilst at her boyfriend's place. She denies any nausea, vomiting, fever or chills. Review of systems is otherwise negative. Her gap has closed x 2. Potassium is 3.4 nad bicarb is up to 14. Anion gap is down to 8. Objective Data Objective Data Vital Signs: Vital Signs Temp Pulse Resp BP Pulse Ox 97.4 F L 98 98 H 109/75 22 08/31/21 08:00 08/31/21 10:00 08/31/21 09:00 08/31/21 10:00 08/31/21 09:00 Oxygen Delivery Method Room Air Weight: 132 lb 7.965 oz Body Mass Index (BMI) 24.0 Intake & Output: Intake and Output for Last 24 Hours 08/29/21 08/30/21 08/31/21 23:59 23:59 23:59 Intake Total 1725.91 / 1725.91 2391.65 / 2391.65 Output Total 1500 / 1500 Balance 1725.91 / 1725.91 891.65 / 891.65 Lab / Micro Data Result Diagrams: 08/31/21 06:35 08/31/21 09:47 Labs: Laboratory Results - last 24 hr 08/30/21 20:09: POC Glucose 482 H* 08/30/21 20:20: WBC 12.6 H, RBC 4.99, Hgb 15.6 H, Hct 48.8 H, MCV 97.8, MCH 31.3, MCHC 32.0, RDW Std Deviation 51.0 H, RDW Coeff of Bret 14.0, Plt Count 506 H, MPV 10.0, Immature Gran % (Auto) 1.400 H, Neut % (Auto) 75.5 H, Lymph % (Auto) 14.5 L, [place] % (Auto) 7.9, Eos % (Auto) 0.0, Baso % (Auto) 0.7, Absolute Neuts (auto) 9.5 H, Absolute Lymphs (auto) 1.83, Nucleated RBC % 0 08/30/21 20:20: Acetone Level MODERATE H 08/30/21 20:20: Serum , Qual NEGATIVE 08/30/21 20:20: Sodium 130 L, Potassium 5.0, Chloride 101, Carbon Dioxide 4.0 L* , Anion Gap 25 H, BUN 9, Creatinine 1.25 H, Estim Creat Clear Calc 49.21, Est GFR (MDRD) Af Amer 64, Est GFR (MDRD) Non-Af 53 L, BUN/Creatinine Ratio 7.2 L, Glucose 485 H*, Calcium 8.5 08/30/21 20:52: Urine Color Yellow, Urine Clarity Sl. Cloudy, Urine pH 5.0, Ur Specific [place] 1.030, Urine Protein 100 H, Urine Glucose (UA) 1000 H, Urine Ketones 150 A*, Urine Occult Blood 25 H, Urine Nitrite Negative, Urine Bilirubin Negative, Urine Urobilinogen Normal, Ur Leukocyte Esterase Negative, Urine RBC 0 SEEN, Urine WBC 0-5 SEEN, Ur Squamous Epith Cells 0-5 SEEN, Urine Bacteria 0 SEEN, Fine Granular Casts 5-10 SEEN, Urine Mucus 0 SEEN, Urine Trichomonas 0-5 SEEN 08/30/21 21:18: POC Glucose 442 H 08/30/21 21:55: POC Glucose 406 H 08/30/21 22:13: Sodium 133 L, Potassium 4.9, Chloride 108 H, Carbon Dioxide 4.0 L*, Anion Gap 21 H, BUN 7, Creatinine 1.05 H, Estim Creat Clear Calc 58.58, Est GFR (MDRD) Af Amer 78, Est GFR (MDRD) Non-Af 65, BUN/Creatinine Ratio 6.7 L, Glucose 432 H, Calcium 7.3 L 08/30/21 23:42: POC Glucose 387 H 08/31/21 00:30: POC Glucose 399 H 08/31/21 01:31: POC Glucose 344 H 08/31/21 01:35: Sodium 136, Potassium 4.4, Chloride 111 H, Carbon Dioxide 5.0 L* , Anion Gap 20 H, BUN 6 L, Creatinine 0.88, Estim Creat Clear Calc 69.90, Est GFR (MDRD) Af Amer 96, Est GFR (MDRD) Non-Af 80, BUN/Creatinine Ratio 6.8 L, Glucose 318 H, Calcium 7.3 L 08/31/21 02:27: POC Glucose 293 H 08/31/21 03:36: POC Glucose 224 H 08/31/21 04:41: POC Glucose 232 H 08/31/21 05:27: POC Glucose 301 H 08/31/21 06:35: WBC 10.4, RBC 3.55 L, Hgb 10.9 L, Hct 33.4 L, MCV 94.1, MCH 30.7, MCHC 32.6, RDW Std Deviation 48.2 H, RDW Coeff of Bret 14.0, Plt Count 285, MPV 9.7, Immature Gran % (Auto) 0.500, Neut % (Auto) 73.9 H, Lymph % (Auto) 14.1 L, [place] % (Auto) 11.0 H, Eos % (Auto) 0.1, Baso % (Auto) 0.4, Absolute Neuts (auto) 7.7, Absolute Lymphs (auto) 1.47, Nucleated RBC % 0 08/31/21 06:35: Sodium 135 L, Potassium 3.5, Chloride 113 H, Carbon Dioxide 11.0 L, Anion Gap 11, BUN 5 L, Creatinine 0.90, Estim Creat Clear Calc 68.34, Est GFR (MDRD) Af Amer 94, Est GFR (MDRD) Non-Af 78, BUN/Creatinine Ratio 5.6 L, Glucose 297 H, Calcium 8.0 L 08/31/21 06:37: POC Glucose 301 H 08/31/21 07:39: POC Glucose 303 H 08/31/21 08:42: POC Glucose 345 H 08/31/21 09:47: Sodium 136, Potassium 3.4 L, Chloride 114 H, Carbon Dioxide 14.0 L, Anion Gap 8, BUN 5 L, Creatinine 0.93, Estim Creat Clear Calc 66.14, Est GFR (MDRD) Af Amer 90, Est GFR (MDRD) Non-Af 74, BUN/Creatinine Ratio 5.4 L, Glucose 326 H, Calcium 8.2 L 08/31/21 09:47: POC Glucose 304 H ABG Data ABG results: ABG 08/30/21 20:28 Specimen Type BETHANY VBG pH 6.89 L* VBG pO2 61 H VBG HCO3 3 L VBG Total CO2 < 5 L VBG O2 Sat (Calc) 70 VBG Base Excess -30 L POC Mix VBG pCO2 Pt Tmp 16.5 L* O2 Delivery Device Room Air Crit Call To/Read Back Yes Blood Gas Notified Whom [place] Blood Gas Notified Time 20:29:48 Physical Exam Const alert, oriented x3 and no apparent distress Exam Limitations: no limitations HEENT head/scalp atraumatic Head and Scalp: normocephalic Mouth: dry mucous membranes Eyes PERRL, EOMs intact bilaterally and conjunctivae normal Neck no lymphadenopathy and supple Resp normal respiratory effort, no retractions, no use of accessory muscles and clear to auscultation bilaterally Cardio regular rate, regular rhythm, S1 normal heart sound, S2 normal heart sound and no murmurs GI normal to inspection, nondistended, normoactive bowel sounds, soft to palpation, non-tender and non-distended Extremity normal to inspection, full ROM and no clubbing, cyanosis or edema Peripheral Pulses: Yes pulses 2+ throughout Skin no rashes or lesions noted Neuro oriented x3, CN's II-XII intact bilaterally and moves all extremities Sensorium / Orientation: awake and alert Psych affect normal Assessment & Plan Assessment/Plan (1) DKA (diabetic ketoacidoses): QUALIFIERS: Diabetes mellitus type: other specified (including PAKO) Diabetes mellitus complication detail: without coma Qualified Code(s): E13.10 - Other specified diabetes mellitus with ketoacidosis without coma (2) Hypokalemia: PLAN: #DKA in a recently diagnosed diabetic * unclear whether its type 1 or 2 diabetes * anion gap has closed x 2; bicarb is up to 14 and anion gap is down to 8. * says she doesnt take her insulin like she should because she has had hypoglycemia with her current regimen often * will transition to SQ insulin at her home dose of 15 units bid. * ISS. Accuchecks ACHS * will need follow up with [employer] consultant on outpatient basis * #CKD stage IIIa #Hypokalemia: K is 3,.4. Will replace and trend #Nicotine dependence: counseled to quit. Declined nicotine patch on admission #DVT prophylaxis: lovenox DVT prophylaxis: lovenox Charges/Coding Visit Charges Inpatient E&M: 74986 Subs Hosp L2
[2021-08-31] MEDS: Potassium Chloride Oral Tablet 20 MEQ 40 MEQ PO ×2 (11:15→20:16)
[2021-08-31 11:56] LABS: Bedside Glucose 308 mg/dL (70-110)
[2021-08-31 11:56] LABS: Bedside Glucose 289 mg/dL (70-110)
--- NOTE | 2021-08-31 13:36 | CASEMGMT ---
KWASI RUIZ received call back from Nayan at Dr. Shelley office. Nayan states that Dr. Kaiser will take referral and review. Once approved by Dr. Kaiser, Nayan will call patient to schedule appt. KWASI RUIZ faxed referral to Dr. Kaiser's office. JOSEPH will continue to follow this patient and plan for a safe discharge.
[2021-08-31 14:31] LABS: Bedside Glucose 474 mg/dL (70-110)
[2021-08-31] MEDS: Insulin Lispro 100 UNIT/ML INSULN.PEN SC ×2 (16:25→21:12)
[2021-08-31 19:06] LABS: Bedside Glucose 239 mg/dL (70-110)
[2021-08-31 20:31] LABS: Bedside Glucose 492 mg/dL (70-110)
[2021-08-31] MEDS: Insulin Lispro 100 UNIT/ML INSULN.PEN 15 UNIT SC (21:11)
[2021-09-01 02:05] LABS: Bedside Glucose 486 mg/dL (70-110)
[2021-09-01 02:28] VITALS: BP 96/78; PULSE 76; RESP 18; TEMP 36.6; O2SAT 99
[2021-09-01 02:36] LABS: Bedside Glucose 354 mg/dL (70-110)
[2021-09-01] MEDS: Insulin Lispro 100 UNIT/ML INSULN.PEN SC ×2 (06:09→12:02)
[2021-09-01 06:16] LABS: Bedside Glucose 339 mg/dL (70-110)
[2021-09-01 06:30] LABS: Absolute Lymphocyte Count 1.35 X10^3/uL (0.83-4.51); Absolute Neutrophil Count 2.1 X10^3/uL (2.0-7.7); Basophil# 0.02 X10^3/uL; Basophil% 0.5 % (0-1); Eosinophil# 0.04 X10^3/uL; Hematocrit 34.4 % (37-47); Hemoglobin 12.1 g/dL (12.0-15.0); Lymphocyte # 1.35 X10^3/ul (0.83-4.51); Lymphocyte % 33.2 % (19-41); Mean Corp Hgb Conc 35.2 g/dL (32-36); Mean Corpuscular Hgb 31.1 pg (27.0-32.0); Mean Corpuscular Volume 88.4 fL (81-99); Mean Platelet Vol. 9.9 fl (6.2-12.0); Monocyte# 0.51 X10^3/uL; Monocyte% 12.5 % (0-10); NRBC Flagged by Analyzer 0 % (0-5); Neutrophil # 2.14 X10^3/uL (2.7-7.7); Neutrophil % 52.6 % (47-70); Platelet Count 254 K/mm3 (150-450); RBC Distribution Width CV 14.2 % (11.6-14.6); RBC Distribution Width SD 45.8 fl (35.1-43.9); Red Blood Count 3.89 M/mm3 (4.2-5.4); White Blood Count 4.1 K/mm3 (4.4-11.0)
[2021-09-01 06:57] LABS: Anion Gap 7 (5-15); BUN 5 mg/dL (7-18); BUN/Creat Ratio 8.4 RATIO (10-20); Calcium,Total 8.7 mg/dL (8.5-10.1); Chloride 109 mmol/L (98-107); Creatinine, Serum 0.59 mg/dL (0.55-1.02); EST Glomerular Filtration Rate 125 mL/min (>60); Est Glom Filt Rate - Afr Amer 151 mL/min (>60); Estimated Creatinine Clearance 104.25 ml/min; Glucose 297 mg/dL (74-106); Potassium 3.1 mmol/L (3.5-5.1); Sodium Level 137 mmol/L (136-145)
[2021-09-01 07:17] VITALS: O2SAT 97
[2021-09-01 08:06] LABS: Hemoglobin A1c 8.9 % (3.8-5.6)
[2021-09-01 08:10] VITALS: BP 110/80; PULSE 87; RESP 16; TEMP 36.8; O2SAT 100
[2021-09-01] MEDS: Potassium Chloride Oral Tablet 20 MEQ 40 MEQ PO (08:24)
[2021-09-01 09:21] LABS: Bedside Glucose 92 mg/dL (70-110)
--- NOTE | 2021-09-01 11:10 | PCM.DC ---
Discharge Instructions Diet Discharge Diet: 1800 Calorie Control Diet Activity Discharge Activity: Return to Normal Activity Weight Bearing Status: Weight bearing as tolerated Dressing / Incision Call your doctor if you observe: Fever of 101 or Higher, Shortness of breath, Dizziness, Swelling in the ankles, Chest pain and Increased palpitations (irregular heartbeat) Follow Up Care Test Results: Test results from this visit will be discussed in further detail at your follow-up appointment, if applicable. Discharge Plan Admission Admit Date/Time: 08/30/21 22:21 Primary Reason for Your Visit: DKA Attending Provider: Maggie Reed Primary Care Provider: Meena Flowers Instructions Patient Instructions: Ketoacidosis Ch, Diabetes and Sensitive Topics Discharge Orders/Prescriptions Prescriptions: Continued potassium chloride [Klor-Con M20] 20 mEq Tablet,Er Particles/Crystals 40 meq PO BIDCM Qty: 28 RF: 0 Basaglar KwikPen U-100 Insulin 100 unit/mL (3 mL) insulin pen 15 unit subcut BID Qty: 15 RF: 0 insulin aspart U-100 100 unit/mL (3 mL) insulin pen SUBCUT RF: 0 Referrals / Follow Up: Kathryn Herbert [DIETITIAN] - 09/07/21 10:30 am ([facility] [address] [place], [place] [id number] Office is near central registration on first floor. ) Altaf Kaiser MD [STAFF PHYSICIAN] - Within 2 Weeks Meena Flowers [Primary Care Provider] - Within 2 Weeks Disposition Disposition (needs filled in before D/C Order can be placed): Home, Self Care
--- NOTE | 2021-09-01 11:11 | DS.PCM_ITS ---
Providers Date of Admission: 08/30/21 Primary Care Physician: Meena Flowers Reason For Visit: DKA Diagnosis Discharge Diagnosis (1) DKA (diabetic ketoacidoses): Status: Acute Code(s): E11.10 - Type 2 diabetes mellitus with ketoacidosis without coma Qualifiers: Diabetes mellitus complication detail: without coma Diabetes mellitus type: other specified (including PAKO) Qualified Code(s): E13.10 - Other specified diabetes mellitus with ketoacidosis without coma (2) Hypokalemia: Status: Acute Code(s): E87.6 - Hypokalemia Medications at Discharge Home Medications Basaglar KwikPen U-100 Insulin 15 unit SUBCUT BID #15 ml 06/10/21 potassium chloride [Klor-Con M20] 40 meq PO BIDCM #28 tab 06/10/21 insulin aspart U-100 SUBCUT 08/31/21 Hospital Course Operations None Procedures None Summary of Care Provided Minutes Spent on Discharge: 45 Hospital Course: Patient is a 1-year-old female with a past medical history of nicotine dependence and diabetes mellitus was admitted through the ED on 08/30/2021 with a 2-day history of progressively worsening shortness of breath with associated palpitations and syncope. She had associated weakness and tiredness. She was subsequently found unresponsive. On admission she was found to have markedly elevated blood sugar of 485 and anion gap was 25 with bicarb of 4. He was given an amp of sodium bicarb in the ED and started on insulin drip. She was hydrated with IV fluids. She was admitted to the ICU and managed for DKA in a known diabetic. Patient states she had not been taking her insulin like she showed because she had had some hypoglycemic episodes. DKA was therefore thought to be due to noncompliance. Patient's anion gap subsequently closed and she was transitioned to her home insulin dose of basaglar insulin 15 units bid. She remained stable and was discharged home on 09/01/2021. She is to follow up with her PCP and an appointment was also made for her with endo crinology to establish care. Patient seen and examined prior to discharge. She had no active complaints and felt well. Review of systems is otherwise negative. Labs and vitals reviewed. Home meds reviewed and reconciled. Physical Exam Const alert, oriented x3 and no apparent distress General Appearance: cooperative, comfortable and well kempt Exam Limitations: no limitations HEENT normocephalic, head/scalp atraumatic, hearing grossly normal bilaterally and mo ist oral mucous membranes Eyes PERRL, EOMs intact bilaterally and conjunctivae normal Neck no lymphadenopathy and supple Resp normal respiratory effort, no retractions, no use of accessory muscles and clear to auscultation bilaterally Cardio regular rate, regular rhythm, S1 normal heart sound, S2 normal heart sound and no murmurs GI normal to inspection, nondistended, normoactive bowel sounds, soft to palpation, non-tender and non-distended Extremity normal to inspection, full ROM and no clubbing, cyanosis or edema Skin no rashes or lesions noted Neuro oriented x3, CN's II-XII intact bilaterally and moves all extremities Sensorium / Orientation: awake and alert Psych affect normal Weight / BMI Weight Weight: 132 lb Body Mass Index (BMI) 24.0 ABG / Lab / Microbiology Data Result Diagrams: 09/01/21 06:05 09/01/21 06:05 Laboratory: Laboratory Results - last 24 hr 08/30/21 19:35: POC Glucose 474 H* 08/31/21 10:43: POC Glucose 289 H 08/31/21 11:48: POC Glucose 308 H 08/31/21 16:23: POC Glucose 239 H 08/31/21 20:24: POC Glucose 492 H* 08/31/21 22:20: POC Glucose 486 H* 09/01/21 02:32: POC Glucose 354 H 09/01/21 06:05: WBC 4.1 L, RBC 3.89 L, Hgb 12.1, Hct 34.4 L, MCV 88.4 D, MCH 31.1, MCHC 35.2 D, RDW Std Deviation 45.8 H, RDW Coeff of Bret 14.2, Plt Count 254, MPV 9.9, Immature Gran % (Auto) 0.200, Neut % (Auto) 52.6, Lymph % (Auto) 33.2, [place] % (Auto) 12.5 H, Eos % (Auto) 1.0, Baso % (Auto) 0.5, Absolute Neuts (auto) 2.1, Absolute Lymphs (auto) 1.35, Nucleated RBC % 0 09/01/21 06:05: Sodium 137, Potassium 3.1 L, Chloride 109 H, Carbon Dioxide 21.0, Anion Gap 7, BUN 5 L, Creatinine 0.59, Estim Creat Clear Calc 104.25, Est GFR (MDRD) Af Amer 151, Est GFR (MDRD) Non-Af 125, BUN/Creatinine Ratio 8.4 L, Glucose 297 H, Calcium 8.7 09/01/21 06:05: Hemoglobin A1c 8.9 H 09/01/21 06:08: POC Glucose 339 H 09/01/21 08:22: POC Glucose 92 D/C Instructions Discharge Diet: 1800 Calorie Control Diet Weight Bearing Status: Weight bearing as tolerated Call your doctor if you observe: Fever of 101 or Higher, Shortness of breath, Dizziness, Swelling in the ankles, Chest pain and Increased palpitations (irregular heartbeat) Meaningful Use Info Meaningful Use Diagnoses (Choose all that apply): None applicable Discharge Plan Admission Admit Date/Time: 08/30/21 22:21 Primary Reason for Your Visit: DKA Attending Provider: Maggie Reed Primary Care Provider: Meena Flowers Instructions Patient Instructions: Ketoacidosis Ch, Diabetes and Sensitive Topics Discharge Orders/Prescriptions Prescriptions: Continued potassium chloride [Klor-Con M20] 20 mEq Tablet,Er Particles/Crystals 40 meq PO BIDCM Qty: 28 RF: 0 Basaglar KwikPen U-100 Insulin 100 unit/mL (3 mL) insulin pen 15 unit subcut BID Qty: 15 RF: 0 insulin aspart U-100 100 unit/mL (3 mL) insulin pen SUBCUT RF: 0 Referrals / Follow Up: Kathryn Herbert [DIETITIAN] - 09/07/21 10:30 am ([facility] [address] [place] [address] Office is near central registration on first floor. ) Altaf Kaiser MD [STAFF PHYSICIAN] - Within 2 Weeks Meena Flowers [Primary Care Provider] - Within 2 Weeks Disposition Disposition (needs filled in before D/C Order can be placed): Home, Self Care Charges/Coding Visit Charges Inpatient E&M: 16088 Disch Hosp
[2021-09-01 12:00] VITALS: BP 113/81; PULSE 93; RESP 16; TEMP 36.8; O2SAT 100
[2021-09-01 12:31] LABS: Bedside Glucose 355 mg/dL (70-110)
== END 2021-09-01 12:40 | disposition home or self-care (01) | DRG 420 ==
LOC: ED 22:21 → ICU 22:32 → MS3 08-31 18:14
PROVIDERS: Admitting Provider Hospitalist; Emergency Provider Emergency Medicine; PCP Family Medicine; Visit Provider Student in an Organized Health Care Education/Training Program
DX: E13.10 Other specified diabetes mellitus with ketoacidosis without coma (principal); E87.6 Hypokalemia; Z79.4 Long term (current) use of insulin; E13.22 Other specified diabetes mellitus with diabetic chronic kidney disease; N18.31 Chronic kidney disease, stage 3a; F17.210 Nicotine dependence, cigarettes, uncomplicated; Z91.14 Patient's other noncompliance with medication regimen
CPT/HCPCS: 80048; 81001; 82009; 82803; 82962; 83036; 84703; 85025; 93005; 97802; 99285; J7030; J7040; A4216; J2405

== ENCOUNTER 2022-02-02 19:10 | Inpatient (IN) | payer MEDICAID, SELFPAY ==
[2022-02-02] VITALS (9 sets, daily range): BP systolic 111–148; BP diastolic 70–87; PULSE 111–141; RESP 20–29; TEMP 35.8–36.8; O2SAT 98–100; BMI 28.3; BMI 29.5
--- NOTE | 2022-02-02 19:22 | EKG12_ITS ---
Test Reason : DYSRHYTHMIA Blood Pressure : / mmHG Vent. Rate : 134 BPM Atrial Rate : 136 BPM P-R Int : 140 ms QRS Dur : 076 ms QT Int : 290 ms P-R-T Axes : 069 009 067 degrees QTc Int : 433 ms Sinus tachycardia Otherwise normal ECG Confirmed by ZAID JENNINGS, LAMONT ([id number]), fashion editor SABRINA MCCLELLAN ([id number]) on 02/06/2022 11:26:22 AM Referred By: WAYNE Confirmed By:ELVA MAR MD
--- NOTE | 2022-02-02 19:23 | EDS_ITS ---
HPI History of Present Illness Chief Complaint: Hyperglycemia Narrative Narrative: Patient with past medical history of diabetes, presents with nausea and vomiting, and elevated blood sugars. She states her blood sugars have been running above 300. She was last in DKA in August. She has been in DKA twice as an insulin dependent diabetic. She states that she has been taking her KwikPen as directed. She vomited once today, but then began having more vomiting here in the emergency department upon arrival. She denies any fevers or chills. No dysuria or hematuria. No recent illnesses. Her history and physical is mildly limited secondary to her active vomiting. No hematemesis. [facility] Medical History Alcohol abuse Diabetes Hypokalemia Home Medications insulin glargine 100 unit/mL (3 mL) subcutaneous pen (Basaglar KwikPen U-100 Insulin) 15 unit (0.15 mL) subcut BID #15 mL 06/10/21 [Rx Last Taken Unknown] insulin aspart U-100 100 unit/mL (3 mL) subcutaneous pen (Novolog Flexpen U-100 Insulin aspart) See Protocol subcut TID PRN Hyperglycemia 02/02/22 [History Last Taken Unknown] potassium chloride 20 mEq tablet,extended release(part/cryst) (Klor-Con M) 30 meq PO BIDCM 02/02/22 [History Last Taken Unknown] Allergy/AdvReac Type Severity Reaction Status Date / Time BEES Allergy Anaphylaxis Uncoded 02/02/22 19:13 Family History Grandmother Diabetes Surgical History History of partial hysterectomy Hx of tonsillectomy Social History household members: none current occupational exposures/hazards: No Smoking Status: Current every day smoker tobacco type: cigarettes alcohol intake: current alcohol intake frequency: holidays/special occasions only substance use type: does not use ROS ROS ED ROS Narrative Constitutional: No fever, no chills. Elevated blood sugars above 300. HEENT: No sore throat. No neck pain. No loss of vision. No rhinorrhea. Cardiovascular: No chest pain. No palpitations. No pedal edema. Respiratory: No cough, no shortness of breath. Abdominal: No abdominal pain. Positive nausea. Positive vomiting. Genitourinary: No dysuria. No hematuria. Musculoskeletal: No myalgias. No arthralgias. Neurologic: No headaches. No dizziness. No lightheadedness. Skin: No rash. No change in color. Psychiatric: No depression. No anxiety. EXAM Physical Exam Narrative Exam Narrative: Afebrile. Vital signs noted. HEENT: Normocephalic. Atraumatic. PERRL, EOMI. Neck soft and supple. No point tenderness or step off. Cardiovascular: Positive tachycardia.. No murmurs, rubs, or gallops appreciated. Respiratory: No tachypnea. Lungs clear to auscultation bilaterally. Gastrointestinal: Abdomen soft, nontender, with normoactive bowel sounds. No rebound or guarding. Neurological: Awake. Alert. Nonfocal, nonlateralizing. Skin: No rash. Normal color. No pallor. Musculoskeletal: No pedal edema. Full range of motion extremities. Const Vital Signs: 02/02/22 19:11 02/02/22 19:32 Temperature 97.6 F L Temperature Source Temporal Pulse Rate 141 H Respiratory Rate 20 H Respiratory Effort Short of Breath Respiratory Pattern Tachypnea Blood Pressure 148/85 H Blood Pressure Mean 106 Pulse Ox 100 Oxygen Delivery Method Room Air MDM MDM MDM Narrative Medical decision making narrative: Patient was bolused IV fluids. She was administered Zofran 4 mg intravenously while awaiting fingerstick glucose. EKG interpreted by myself demonstrates sinus tachycardia at [address] changes, no STEMI. No peaked T waves. This improved her nausea and vomiting. She has an elevated white count of 17.6 with hemoglobin normal at 14.9, hematocrit 48.0. Platelet count normal at 441. CMP is consistent with diabetic ketoacidosis with sodium of 129, potassium of 5.2, carbon dioxide of 7.0 with an anion gap of 27, and glucose elevated at 430. She has a normal creatinine of 1.07, if not slightly elevated. There are 150 ketones in her urine but no evidence of infection. There are many moderate acetone levels in her blood. Her venous blood gas does show a pH of 7.0. She was started on an insulin drip and will be bolused another liter of IV fluids. We discussion with the patient, she states that she could feel this coming on over the last few days. It usually happens whenever she is stressed out about things, and admittedly had conflict with her neighbor. At this point in time, patient was discussed with Dr. Galan who will admit her to the ICU. Lab Data Attestation: I reviewed the patient's lab results. Labs: Laboratory Results - last 24 hr 02/02/22 02/02/22 02/02/22 19:17 19:20 19:20 WBC 17.6 H RBC 5.04 Hgb 14.9 Hct 48.0 H MCV 95.2 MCH 29.6 MCHC 31.0 L RDW Std Deviation 49.6 H RDW Coeff of Bret 14.1 Plt Count 441 MPV 10.0 Immature Gran % (Auto) 1.100 H Neut % (Auto) 84.1 H Lymph % (Auto) 8.5 L [place] % (Auto) 5.7 Eos % (Auto) 0.0 Baso % (Auto) 0.6 Absolute Neuts (auto) 14.8 H Absolute Lymphs (auto) 1.50 Nucleated RBC % 0 Sodium 129 L Potassium 5.2 H Chloride 95 L Carbon Dioxide 7.0 L* Anion Gap 27 H BUN 12 Creatinine 1.07 H Estim Creat Clear Calc 56.96 Est GFR (MDRD) Af Amer 76 Est GFR (MDRD) Non-Af 63 BUN/Creatinine Ratio 11.2 Glucose 430 H Calcium 9.4 Total Bilirubin 0.60 AST 37 ALT 54 Alkaline Phosphatase 122 H Total Protein 8.9 H Albumin 4.2 Globulin 4.7 H Albumin/Globulin Ratio 0.9 Urine Color Yellow Urine Clarity Clear Urine pH 5.0 Ur Specific [place] 1.030 Urine Protein 100 H Urine Glucose (UA) 1000 H Urine Ketones 150 A* Urine Occult Blood 10 H Urine Nitrite Negative Urine Bilirubin Negative Urine Urobilinogen Normal Ur Leukocyte Esterase Negative Urine RBC 0-5 SEEN Urine WBC 0-5 SEEN Ur Squamous Epith Cells 0-5 SEEN Urine Bacteria 1+ Urine Mucus 0 SEEN Acetone Level 02/02/22 19:20 WBC RBC Hgb Hct MCV MCH MCHC RDW Std Deviation RDW Coeff of Bret Plt Count MPV Immature Gran % (Auto) Neut % (Auto) Lymph % (Auto) [place] % (Auto) Eos % (Auto) Baso % (Auto) Absolute Neuts (auto) Absolute Lymphs (auto) Nucleated RBC % Sodium Potassium Chloride Carbon Dioxide Anion Gap BUN Creatinine Estim Creat Clear Calc Est GFR (MDRD) Af Amer Est GFR (MDRD) Non-Af BUN/Creatinine Ratio Glucose Calcium Total Bilirubin AST ALT Alkaline Phosphatase Total Protein Albumin Globulin Albumin/Globulin Ratio Urine Color Urine Clarity Urine pH Ur Specific [place] Urine Protein Urine Glucose (UA) Urine Ketones Urine Occult Blood Urine Nitrite Urine Bilirubin Urine Urobilinogen Ur Leukocyte Esterase Urine RBC Urine WBC Ur Squamous Epith Cells Urine Bacteria Urine Mucus Acetone Level MODERATE H ABG Data ABG results: ABG 02/02/22 19:39 Specimen Type BETHANY VBG pH 7.01 L* VBG pO2 69 H VBG HCO3 5 L VBG Total CO2 5 L VBG O2 Sat (Calc) 83 H VBG Base Excess -26 L POC Mix VBG pCO2 Pt Tmp 18.7 L* O2 Delivery Device Room Air Crit Call To/Read Back Yes Blood Gas Notified Whom [place] Blood Gas Notified Time 19:40:39 Critical Care Time Critical care time (excluding procedures): 30-74 minutes (31), Including time spent:, Discussing w/Patient &/or Family/Biology Research Assistant, Discussing w/Consultants, Arranging Admission or Transfer and Performing Direct Patient Care at Bedside Discharge Plan Dx/Rx/DC Orders Clinical Impression: Diabetic ketoacidosis, Nausea and vomiting, Hyperkalemia Disposition Disposition: Acute Care [facility]
[2022-02-02] MEDS: 0.9% Normal Saline 1,000 ML 999 ML IV ×4 (19:26→22:25)
[2022-02-02] MEDS: Ondansetron 4 MG/2 ML Vial IV (19:26)
--- NOTE | 2022-02-02 19:30 | ED.RN ---
INITIAL BGT RESULT IS [id number].
[2022-02-02 19:39] LABS: Mucous, Urine 0 SEEN /hpf (<or=2+)
[2022-02-02 19:41] LABS: Absolute Neutrophil Count 14.8 X10^3/uL (2.0-7.7); Basophil% 0.6 % (0-1); Hemoglobin 14.9 g/dL (12.0-15.0); Lymphocyte % 8.5 % (19-41); Mean Corpuscular Hgb 29.6 pg (27.0-32.0); Mean Corpuscular Volume 95.2 fL (81-99); Monocyte# 1.01 X10^3/uL; Monocyte% 5.7 % (0-10); NRBC Flagged by Analyzer 0 % (0-5); Neutrophil # 14.84 X10^3/uL (2.7-7.7); Neutrophil % 84.1 % (47-70); Platelet Count 441 K/mm3 (150-450); RBC Distribution Width CV 14.1 % (11.6-14.6); RBC Distribution Width SD 49.6 fl (35.1-43.9); Red Blood Count 5.04 M/mm3 (4.2-5.4); White Blood Count 17.6 K/mm3 (4.4-11.0)
[2022-02-02 19:45] LABS: Blood Gas Specimen Type VEN; O2 Delivery Device Room Air; VBG BASE EXCESS -26 mmol/L (-1.0-3.5); VBG Bicarbonate 5 mmol/L (22-26); VBG PO2 69 mmHg (25-40); VBG SO2 83 % (50-70); VBG TCO2 5 mmol/L (23-33); VBG pCO2 18.7 mmHg (41-51); VBG pH 7.01 (7.32-7.42)
[2022-02-02 19:45] LABS: Color, Urine Yellow (Yellow); Glucose, Dipstick 1000 mg/dl (Normal); Leukocyte Esterase-Dipstick Negative /ul (Negative); Nitrite-Dipstick Negative (Negative); Occult Blood-Urine 10 /ul (Negative); Protein-Dipstick 100 mg/dl (Negative); Urine Bilirubin Dipstick Negative (Negative); Urine Clarity Clear (Clear); Urine Urobilinogen Normal (Normal)
[2022-02-02 20:05] LABS: Ketone-Dipstick 150 mg/dl (Negative)
[2022-02-02 20:06] LABS: Bacteria 1+ /hpf (None Seen); Red Blood Cells-Urine 0-5 SEEN /hpf (0-5); Squamous Epithelial Cells - UA 0-5 SEEN /hpf (5-10); White Blood Cells 0-5 SEEN /hpf (0-5)
[2022-02-02 20:09] LABS: ALB/GLOB Ratio 0.9 RATIO (0.9-2.4); AST(SGOT) 37 U/L (15-37); Alanine Aminotransfer ALT/SGPT 54 U/L (13-56); Albumin, Serum 4.2 g/dL (3.2-5.0); Alkaline Phosphatase 122 U/L (45-117); Anion Gap 27 (5-15); BUN 12 mg/dL (7-18); BUN/Creat Ratio 11.2 RATIO (10-20); Calcium,Total 9.4 mg/dL (8.5-10.1); Chloride 95 mmol/L (98-107); Creatinine, Serum 1.07 mg/dL (0.55-1.02); EST Glomerular Filtration Rate 63 mL/min (>60); Est Glom Filt Rate - Afr Amer 76 mL/min (>60); Estimated Creatinine Clearance 56.96 ml/min; Globulin 4.7 g/dL (2.2-4.2); Glucose 430 mg/dL (74-106); Potassium 5.2 mmol/L (3.5-5.1); Protein, Total 8.9 g/dL (6.4-8.2); Sodium Level 129 mmol/L (136-145)
--- NOTE | 2022-02-02 20:20 | PCM.HP.STD ---
HPI - General General Date of Admission: 02/02/22 Date of Service: 02/02/22 Chief Complaint: Elevated BS, N/V. HPI Narrative The patient is a 31 y/o F w/ PMHx: CKD stage IIIa, Diabetes mellitus type I, Tobacco use who presents to the [facility] ED on 02/02/22 with history of persistently elevated blood sugars above 300 with nausea, emesis, fatigue and malaise reporting that she is been taking her insulin as directed but despite this has ongoing hyperglycemia and current symptoms with no recent fevers or chills however given her ongoing symptoms noted to be similar to her prior DKA episodes prompted ED evaluation. Work-up in the ED included T97.6, heart rate 141, BP 148/85, respiratory rate 20, 100% on room air, CBC with WBC 17.6, hemoglobin 14.9, platelet 441 with left shift, VBG with pH 7.01, PO2 69, bicarb 5, CO2 5, 83% oxygenation, CMP with sodium 129, potassium 5.2, chloride 95, carbon oxide 7, anion gap 27, BUN/creatinine 12/1.07, glucose 430, alk phos 122 otherwise hepatic profile unremarkable, urinalysis with specific gravity elevation 1.030, protein 100, glucose 1000, ketones 150 with no obvious evidence of UTI, acetone level moderate. [facility] Medical History Diabetes mellitus type 1, uncontrolled, insulin dependent Hypokalemia Stage 3a chronic kidney disease (CKD) Tobacco use Home Medications insulin glargine 100 unit/mL (3 mL) subcutaneous pen (Basaglar KwikPen U-100 Insulin) 15 unit (0.15 mL) subcut BID #15 mL 06/10/21 [Rx Last Taken Unknown] insulin aspart U-100 100 unit/mL (3 mL) subcutaneous pen (Novolog Flexpen U-100 Insulin aspart) See Protocol subcut TID PRN Hyperglycemia 02/02/22 [History Last Taken Unknown] potassium chloride 20 mEq tablet,extended release(part/cryst) (Klor-Con M) 30 meq PO BIDCM 02/02/22 [History Last Taken Unknown] Allergy/AdvReac Type Severity Reaction Status Date / Time BEES Allergy Anaphylaxis Uncoded 02/02/22 19:13 Family History (Updated 02/02/22 @ 20:[address] Dian Galan MD) Grandmother Diabetes Hypertension Heart disease Grandfather Diabetes Colon cancer Surgical History History of partial hysterectomy Hx of tonsillectomy Social History (Updated 02/02/22 @ 20:[address] Dian Galan MD) household members: children current occupational exposures/hazards: No Smoking Status: Current every day smoker tobacco type: cigarettes Smoking packs per day: 0.5 Smoking cigarettes per day: 10.0 Years smoked: 15 Smoking pack-years: 7.50 alcohol intake: current alcohol intake frequency: holidays/special occasions only substance use type: does not use ROS ROS Narrative Admission Review of Systems: CONSTITUTIONAL: No weight loss, fever, chills, + weakness or fatigue. HEENT: + Fruity taste in her mouth. Eyes: No visual loss, blurred vision, double vision or yellow sclerae. Ears, Nose, Throat: No hearing loss, sneezing, congestion, runny nose or sore throat. SKIN: No rash or itching, lesions, wounds. CARDIOVASCULAR: No chest pain, chest pressure or chest discomfort, palpitations, edema, orthopnea, syncopal events. RESPIRATORY: No shortness of breath, cough or sputum, wheezing, hemoptysis. GASTROINTESTINAL: + anorexia, nausea, vomiting, abdominal cramping, No diarrhea, melena, BRBPR. GENITOURINARY: No dysuria, frequency, urgency or retention. NEUROLOGICAL: No headache, dizziness, syncope, paralysis, ataxia, numbness or tingling in the extremities, focal weakness, change in bowel or bladder control, seizure. MUSCULOSKELETAL: + muscle, back pain, joint pain or stiffness. HEMATOLOGIC: No anemia, bleeding or bruising. LYMPHATICS: No enlarged nodes. No history of splenectomy. PSYCHIATRIC: No history of depression or anxiety. ENDOCRINOLOGIC: + reports of sweating, cold or heat intolerance. + polyuria or polydipsia. ALLERGIES: No history of asthma, hives, eczema or rhinitis. Vital Signs Vital Signs Vital Signs: 02/02/22 19:11 02/02/22 19:32 Temperature 97.6 F L Temperature Source Temporal Pulse Rate 141 H Respiratory Rate 20 H Respiratory Effort Short of Breath Respiratory Pattern Tachypnea Blood Pressure 148/85 H Blood Pressure Mean 106 Pulse Ox 100 Oxygen Delivery Method Room Air Weight Weight: 150 lb Body Mass Index (BMI) 28.3 Physical Exam Narrative Physical Examination: General: Awake, alert, oriented x 3 and cooperative, seated upright in the ED bed, fatigued, diaphoretic, tachycardic Skin: Flushed color, normal turgor, no icterus, no cyanosis. HEENT: AT/NC, EOMI, PERRLA, dry MM, no carotid bruits or JVD noted. Lungs: Mildly diminished, greater bases, mild increased respiratory rate, no rales, ronchi or wheezing. Heart: Tachycardic with regular rhythm; no gallop, rub audible. Abdomen: Soft, mild generalized discomfort but no rebound or guarding, ND, hyperactive BS, no HSM. Extremities: No cyanosis, clubbing, or edema. Neurological: Patient awake, alert, oriented as noted,, cognitive function intact; pupils equally reactive to light and accommodation, cranial nerves II-XII grossly normal, moving all 4 extremities, no focal deficits, strength moderately globally decreased secondary to acute presentation. Psychiatric: Affect appears fatigued, no acute evidence of depressive or anxiety feelings. Results Lab / Micro Data Result Diagrams: 02/02/22 19:20 02/02/22 19:20 Labs: Laboratory Results - last 24 hr 02/02/22 19:17: Urine Color Yellow, Urine Clarity Clear, Urine pH 5.0, Ur Specific [place] 1.030, Urine Protein 100 H, Urine Glucose (UA) 1000 H, Urine Ketones 150 A*, Urine Occult Blood 10 H, Urine Nitrite Negative, Urine Bilirubin Negative, Urine Urobilinogen Normal, Ur Leukocyte Esterase Negative, Urine RBC 0-5 SEEN, Urine WBC 0-5 SEEN, Ur Squamous Epith Cells 0-5 SEEN, Urine Bacteria 1+, Urine Mucus 0 SEEN 02/02/22 19:20: WBC 17.6 H, RBC 5.04, Hgb 14.9, Hct 48.0 H, MCV 95.2, MCH 29.6, MCHC 31.0 L, RDW Std Deviation 49.6 H, RDW Coeff of Bret 14.1, Plt Count 441, MPV 10.0, Immature Gran % (Auto) 1.100 H, Neut % (Auto) 84.1 H, Lymph % (Auto) 8.5 L, [place] % (Auto) 5.7, Eos % (Auto) 0.0, Baso % (Auto) 0.6, Absolute Neuts (auto) 14.8 H, Absolute Lymphs (auto) 1.50, Nucleated RBC % 0 02/02/22 19:20: Sodium 129 L, Potassium 5.2 H, Chloride 95 L, Carbon Dioxide 7.0 L*, Anion Gap 27 H, BUN 12, Creatinine 1.07 H, Estim Creat Clear Calc 56.96, Est GFR (MDRD) Af Amer 76, Est GFR (MDRD) Non-Af 63, BUN/Creatinine Ratio 11.2, Glucose 430 H, Calcium 9.4, Total Bilirubin 0.60, AST 37, ALT 54, Alkaline Phosphatase 122 H, Total Protein 8.9 H, Albumin 4.2, Globulin 4.7 H, Albumin/Globulin Ratio 0.9 02/02/22 19:20: Acetone Level MODERATE H ABG Data ABG results: ABG 02/02/22 19:39 Specimen Type BETHANY VBG pH 7.01 L* VBG pO2 69 H VBG HCO3 5 L VBG Total CO2 5 L VBG O2 Sat (Calc) 83 H VBG Base Excess -26 L POC Mix VBG pCO2 Pt Tmp 18.7 L* O2 Delivery Device Room Air Crit Call To/Read Back Yes Blood Gas Notified Whom Reodica Blood Gas Notified Time 19:40:39 Assessment & Plan Assessment/Plan (1) Diabetic ketoacidosis: PLAN: Plan The patient is a 31 y/o F w/ PMHx: CKD stage IIIa, Diabetes mellitus type I, Tobacco use who presents to the [facility] ED on 02/02/22 with history of persistently elevated blood sugars above 300 with nausea, emesis, fatigue and malaise reporting that she is been taking her insulin as directed but despite this has ongoing hyperglycemia. #1. DKA w/ Diabetes mellitus type I with nausea, emesis related, potentially viral syndrome: Patient administered aggressive IV fluids in the ED and started on an insulin drip. Will admit to the ICU, continue on insulin drip, check serial K+, glucose w/ IVF changes pending these levels, serial chemistry, obtain mag, phos daily w/ repletion as needed, transition to home SC regimen when gap closed w/ overlap on drip, nutrition consultation. Encouraged diet and insulin regimen compliance. Bicarb administered with plan for repeat ABG. Hemoglobin A1c requested. #2. Chronic Kidney Disease Stage IIIa with mild renal insufficiency secondary to #1: Admission BUN/Cr 06/08.07, baseline renal function 0.8-0.9 however has fluctuated during acute presentations previously, repeat BMP in AM. #3. Tobacco Abuse: Encouraged cessation, inpatient consultation per RT, NR if desired. #4. DVT prophylaxis: SCDs, Lovenox. Charges/Coding Visit Charges Inpatient E&M: 00642 Init Hosp L3
[2022-02-02 21:36] LABS: Bedside Glucose 369 mg/dL (74-106)
--- NOTE | 2022-02-02 21:41 | NURSING ---
02/02/22@ 2128 ICU cardiac tele admit strip.
[2022-02-02] MEDS: 0.9% Saline Lock 10 ML Syringe IV (21:47)
[2022-02-02] MEDS: Sodium Bicarbonate 8.4% 50 ML Syringe 50 MEQ IV ×2 (21:48→23:46)
[2022-02-02 21:58] LABS: Anion Gap 25 (5-15); BUN 12 mg/dL (7-18); BUN/Creat Ratio 11.2 RATIO (10-20); Calcium,Total 9.3 mg/dL (8.5-10.1); Chloride 97 mmol/L (98-107); Creatinine, Serum 1.07 mg/dL (0.55-1.02); EST Glomerular Filtration Rate 63 mL/min (>60); Est Glom Filt Rate - Afr Amer 76 mL/min (>60); Estimated Creatinine Clearance 56.96 ml/min; Glucose 434 mg/dL (74-106); Magnesium 2.3 mg/dL (1.6-2.6); Phosphorus 5.4 mg/dL (2.5-4.9); Potassium 5.3 mmol/L (3.5-5.1); Sodium Level 129 mmol/L (136-145)
[2022-02-02 22:25] LABS: Bedside Glucose 307 mg/dL (74-106)
[2022-02-02 22:55] LABS: Allen Test Positive; Base Excess -23 mmol/L (-2 to +2); Bicarbonate 6.1 mmol/L (22-26); Blood Gas Specimen Type ART; PO2 48 mmHG (75-100); SITE L Radial; SO2 72 % (95-99); Total Carbon Dioxide 7 mmol/L; pCO2 18.4 mmHg (35-45); pH 7.13 (7.35-7.45)
[2022-02-02] MEDS: Famotidine 200 MG/20 ML MDV 20 MG in 0.9% Normal Saline (Pres. free 8 ML 300 MG IV (23:18)
[2022-02-02] MEDS: Dext 5%-0.45% NS 1,000 ML 150 ML IV (23:35)
[2022-02-02 23:40] LABS: Bedside Glucose 208 mg/dL (74-106)
[2022-02-03] VITALS (15 sets, daily range): BP systolic 95–133; BP diastolic 68–86; PULSE 88–112; RESP 16–26; TEMP 35.7–37; O2SAT 97–100
[2022-02-03 00:46] LABS: Anion Gap 20 (5-15); BUN 8 mg/dL (7-18); BUN/Creat Ratio 11.9 RATIO (10-20); Chloride 112 mmol/L (98-107); Creatinine, Serum 0.67 mg/dL (0.55-1.02); EST Glomerular Filtration Rate 108 mL/min (>60); Est Glom Filt Rate - Afr Amer 131 mL/min (>60); Estimated Creatinine Clearance 90.96 ml/min; Glucose 196 mg/dL (74-106); Potassium 4.4 mmol/L (3.5-5.1); Sodium Level 140 mmol/L (136-145)
[2022-02-03] MEDS: Acetaminophen 325 MG Tablet 650 MG PO (01:15)
[2022-02-03 01:16] LABS: Bedside Glucose 201 mg/dL (74-106)
[2022-02-03 01:31] LABS: Bedside Glucose 246 mg/dL (74-106)
[2022-02-03] MEDS: Sodium Bicarbonate 8.4% 50 ML Syringe 50 MEQ IV (02:10)
[2022-02-03 04:05] LABS: Absolute Lymphocyte Count 2.05 X10^3/uL (0.83-4.51); Absolute Neutrophil Count 6.1 X10^3/uL (2.0-7.7); Basophil# 0.05 X10^3/uL; Basophil% 0.6 % (0-1); Eosinophil# 0.01 X10^3/uL; Eosinophils% 0.1 % (0-5); Hemoglobin 11.8 g/dL (12.0-15.0); Lymphocyte # 2.05 X10^3/ul (0.83-4.51); Lymphocyte % 22.7 % (19-41); Mean Corp Hgb Conc 32.8 g/dL (32-36); Mean Corpuscular Hgb 30.8 pg (27.0-32.0); Mean Platelet Vol. 9.5 fl (6.2-12.0); Monocyte# 0.81 X10^3/uL; NRBC Flagged by Analyzer 0 % (0-5); Neutrophil # 6.08 X10^3/uL (2.7-7.7); Neutrophil % 67.2 % (47-70); Platelet Count 278 K/mm3 (150-450); RBC Distribution Width CV 14.2 % (11.6-14.6); RBC Distribution Width SD 49.1 fl (35.1-43.9); Red Blood Count 3.83 M/mm3 (4.2-5.4)
[2022-02-03 04:17] LABS: Anion Gap 13 (5-15); BUN 8 mg/dL (7-18); BUN/Creat Ratio 10.4 RATIO (10-20); Calcium,Total 7.1 mg/dL (8.5-10.1); Chloride 111 mmol/L (98-107); Creatinine, Serum 0.77 mg/dL (0.55-1.02); EST Glomerular Filtration Rate 92 mL/min (>60); Est Glom Filt Rate - Afr Amer 112 mL/min (>60); Estimated Creatinine Clearance 79.15 ml/min; Glucose 219 mg/dL (74-106); Potassium 4.1 mmol/L (3.5-5.1); Sodium Level 138 mmol/L (136-145)
[2022-02-03 04:31] LABS: Bedside Glucose 237 mg/dL (74-106)
[2022-02-03 04:31] LABS: Bedside Glucose 220 mg/dL (74-106)
[2022-02-03 04:31] LABS: Bedside Glucose 207 mg/dL (74-106)
--- NOTE | 2022-02-03 05:59 | CON.PCM.CC_ITS ---
Assessment & Plan Assessment/Plan (1) Diabetic ketoacidosis: PLAN: Plan RECOMMENDATIONS: 1. Continue supplemental IV fluid hydration. 2. Continue insulin infusion until anion gap has been closed x2. 3. Once anion gap is closed, resume basal and sliding scale insulin coverage. 4. Aggressive electrolyte repletion. 5. Encourage incentive spirometer use while in bed and mobilize patient as tolerated. IMPRESSIONS: 1. Diabetic ketoacidosis Unclear precipitating etiology. Plan to manage DKA per protocol with supplemental IV fluid hydration and continuous insulin infusion until anion gap has been closed x2. Following this, the patient can be transition to basal and sliding scale insulin coverage with dietary advancement. Continue aggressive electrolyte repletion as needed. Nutrition consultation for diabetic education will be provided. 2. Obesity/tobacco dependency Complicates care, management, recovery and prognosis. This note was generated with [employer] dictation software. It may contain incorrect words, spelling, and punctuation that were not noted in checking the note before signing. HPI Consult Data Date of Consult: 02/03/22 HPI Narrative Reason for Consultation: Diabetic ketoacidosis HPI Narrative: The patient is a 31-year-old female, with a history as outlined below, who presented to the emergency department on February 02 with nausea, vomiting and fatigue. The patient has a known history of insulin-dependent diabetes mellitus, which is currently managed by her primary care provider. She has noted over the last several days that her blood sugars have been out of control. On presentation to the emergency department, the patient was noted to be afebrile and was tachycardic and tachypneic. However, she was otherwise hemodynamically stable on room air. Laboratory evaluation revealed a white bl ood cell count of 17,000. Chemistry profile was notable for a sodium of 129, chloride of 97, bicarbonate of 7 and creatinine of 1.07. Moderate serum acetone was noted. The patient received supplemental IV fluid hydration and was placed on a continuous insulin infusion. She was subsequently admitted to the medical intensive care unit for management of diabetic ketoacidosis. [facility] Medical History Diabetes mellitus type 1, uncontrolled, insulin dependent Hypokalemia Stage 3a chronic kidney disease (CKD) Tobacco use Home Medications insulin glargine 100 unit/mL (3 mL) subcutaneous pen (Basaglar KwikPen U-100 Insulin) 15 unit (0.15 mL) subcut BID #15 mL 06/10/21 [Rx Last Taken Unknown] insulin aspart U-100 100 unit/mL (3 mL) subcutaneous pen (Novolog Flexpen U-100 Insulin aspart) See Protocol subcut TID PRN Hyperglycemia 02/02/22 [History Last Taken Unknown] potassium chloride 20 mEq tablet,extended release(part/cryst) (Klor-Con M) 30 meq PO BIDCM 02/02/22 [History Last Taken Unknown] Allergy/AdvReac Type Severity Reaction Status Date / Time bee venom protein (honey bee) Allergy Anaphylaxis Verified 02/03/22 07:17 Family History Grandmother Diabetes Hypertension Heart disease Grandfather Diabetes Colon cancer Surgical History History of partial hysterectomy Hx of tonsillectomy Social History household members: children current occupational exposures/hazards: No Smoking Status: Current every day smoker tobacco type: cigarettes Smoking packs per day: 0.5 Smoking cigarettes per day: 10.0 Years smoked: 15 Smoking pack- years: 7.50 alcohol intake: current alcohol intake frequency: holidays/special occasions only substance use type: does not use ROS Constitutional Constitutional: Reports fatigue; Denies chills or fever(s) Eyes Eyes: Denies blurry vision or change in vision ENT HEENT: Denies dizziness, dysphagia, epistaxis or headache(s) Cardiovascular Cardiovascular: Denies dizziness, dyspnea or edema Respiratory/Chest Respiratory/Chest: Denies cough or dyspnea Gastrointestinal Gastrointestinal: Reports nausea and vomiting; Denies abdominal pain Genitourinary Genitourinary: Reports polyuria; Denies difficulty urinating Musculoskeletal Musculoskeletal: Denies arthralgias, back pain or joint pain Integumentary Integumentary: Denies lesions, rash or skin ulcer Neurologic Neurologic: Denies abnormal gait or abnormal speech Psychiatric Psychiatric: Denies anxiety or depression Endocrine Endocrinology: Reports fatigue Hematologic/Lymphatic Hematologic/Lymphatic: Denies easy bleeding or easy bruising Physical Exam Const alert General Appearance: cooperative Nutritional Appearance: obese HEENT normocephalic and head/scalp atraumatic Eyes PERRL, EOMs intact bilaterally and conjunctivae normal Neck supple General: trachea midline Chest inspection of chest normal Resp normal respiratory effort Auscultation: Negative for rales, rhonchi or wheezes Cardio regular rate and regular rhythm GI normal to inspection, nondistended, normoactive bowel sounds Extremity no clubbing, cyanosis or edema Skin no rashes or lesions noted Neuro CN's II-XII intact bilaterally, moves all extremities and no focal motor deficits Psych cooperative and affect normal Lab / Micro Data Result Diagrams: 02/03/22 03:45 02/03/22 07:20 Labs: Laboratory Results - last 24 hr 02/02/22 19:17: Urine Color Yellow, Urine Clarity Clear, Urine pH 5.0, Ur Specific [place] 1.030, Urine Protein 100 H, Urine Glucose (UA) 1000 H, Urine Ketones 150 A*, Urine Occult Blood 10 H, Urine Nitrite Negative, Urine Bilirubin Negative, Urine Urobilinogen Normal, Ur Leukocyte Esterase Negative, Urine RBC 0-5 SEEN, Urine WBC 0-5 SEEN, Ur Squamous Epith Cells 0-5 SEEN, Urine Bacteria 1+, Urine Mucus 0 SEEN 02/02/22 19:20: WBC 17.6 H, RBC 5.04, Hgb 14.9, Hct 48.0 H, MCV 95.2, MCH 29.6, MCHC 31.0 L, RDW Std Deviation 49.6 H, RDW Coeff of Bret 14.1, Plt Count 441, MPV 10.0, Immature Gran % (Auto) 1.100 H, Neut % (Auto) 84.1 H, Lymph % (Auto) 8.5 L , [place] % (Auto) 5.7, Eos % (Auto) 0.0, Baso % (Auto) 0.6, Absolute Neuts (auto) 14.8 H, Absolute Lymphs (auto) 1.50, Nucleated RBC % 0 02/02/22 19:20: Sodium 129 L, Potassium 5.2 H, Chloride 95 L, Carbon Dioxide 7.0 L*, Anion Gap 27 H, BUN 12, Creatinine 1.07 H, Estim Creat Clear Calc 56.96, Est GFR (MDRD) Af Amer 76, Est GFR (MDRD) Non-Af 63, BUN/Creatinine Ratio 11.2, Glucose 430 H, Calcium 9.4, Total Bilirubin 0.60, AST 37, ALT 54, Alkaline Phosphatase 122 H, Total Protein 8.9 H, Albumin 4.2, Globulin 4.7 H, Albumin/Globulin Ratio 0.9 02/02/22 19:20: Acetone Level MODERATE H 02/02/22 19:20: Sodium 129 L, Potassium 5.3 H, Chloride 97 L, Carbon Dioxide 7.0 L*, Anion Gap 25 H, BUN 12, Creatinine 1.07 H, Estim Creat Clear Calc 56.96, Est GFR (MDRD) Af Amer 76, Est GFR (MDRD) Non-Af 63, BUN/Creatinine Ratio 11.2, Glucose 434 H, Calcium 9.3, Phosphorus 5.4 H, Magnesium 2.3 02/02/22 20:54: POC Glucose 369 H 02/02/22 22:01: POC Glucose 307 H 02/02/22 23:15: POC Glucose 208 H 02/03/22 00:00: Sodium 140, Potassium 4.4, Chloride 112 H, Carbon Dioxide 8.0 L* , Anion Gap 20 H, BUN 8, Creatinine 0.67, Estim Creat Clear Calc 90.96, Est GFR (MDRD) Af Amer 131, Est GFR (MDRD) Non-Af 108, BUN/Creatinine Ratio 11.9, Glucose 196 H, Calcium 7.0 L 02/03/22 00:25: POC Glucose 201 H 02/03/22 01:05: POC Glucose 246 H 02/03/22 02:05: POC Glucose 237 H 02/03/22 03:21: POC Glucose 220 H 02/03/22 03:45: Sodium 138, Potassium 4.1, Chloride 111 H, Carbon Dioxide 14.0 L , Anion Gap 13, BUN 8, Creatinine 0.77, Estim Creat Clear Calc 79.15, Est GFR (MDRD) Af Amer 112, Est GFR (MDRD) Non-Af 92, BUN/Creatinine Ratio 10.4, Glucose 219 H, Calcium 7.1 L 02/03/22 03:45: WBC 9.0, RBC 3.83 L, Hgb 11.8 L, Hct 36.0 L, MCV 94.0, MCH 30.8, MCHC 32.8 D, RDW Std Deviation 49.1 H, RDW Coeff of Bret 14.2, Plt Count 278, MPV 9.5, Immature Gran % (Auto) 0.400, Neut % (Auto) 67.2, Lymph % (Auto) 22.7, [place] % (Auto) 9.0, Eos % (Auto) 0.1, Baso % (Auto) 0.6, Absolute Neuts (auto) 6.1, Absolute Lymphs (auto) 2.05, Nucleated RBC % 0 02/03/22 04:04: POC Glucose 207 H ABG Data ABG results: ABG 02/02/22 02/02/22 19:39 22:51 Specimen Type BETHANY ART Sample Site L Radial pH 7.13 L* Bicarbonate Actual 6.1 L Total CO2 7 Base Excess -23 L O2 Saturation 72 L ABG pCO2 18.4 L* ABG pO2 48 L Mahendra Test Positive VBG pH 7.01 L* VBG pO2 69 H VBG HCO3 5 L VBG Total CO2 5 L VBG O2 Sat (Calc) 83 H VBG Base Excess -26 L POC Mix VBG pCO2 Pt Tmp 18.7 L* O2 Delivery Device Room Air Crit Call To/Read Back Yes Yes Blood Gas Notified Whom Reodica Blood Gas Notified Time 19:40:39 Charges/Coding Visit Charges Inpatient E&M: 40074 Init Hosp L3
[2022-02-03] MEDS: Dext 5%-0.45% NS 1,000 ML 150 ML IV (06:07)
[2022-02-03 06:25] LABS: Bedside Glucose 198 mg/dL (74-106)
[2022-02-03 07:10] LABS: Bedside Glucose 426 mg/dL (74-106)
[2022-02-03 07:19] LABS: Hemoglobin A1c 10.7 % (3.8-5.6)
[2022-02-03 08:05] LABS: Anion Gap 9 (5-15); BUN 8 mg/dL (7-18); Chloride 110 mmol/L (98-107); EST Glomerular Filtration Rate 88 mL/min (>60); Est Glom Filt Rate - Afr Amer 106 mL/min (>60); Estimated Creatinine Clearance 76.18 ml/min; Glucose 290 mg/dL (74-106); Potassium 3.7 mmol/L (3.5-5.1); Sodium Level 137 mmol/L (136-145)
[2022-02-03] MEDS: Insulin Glargine-YFGN 100 UNIT/ML Pen 20 UNIT SC (09:28)
[2022-02-03 09:50] LABS: Bedside Glucose 157 mg/dL (74-106)
--- NOTE | 2022-02-03 10:00 | CASEMGMT ---
KWASI RUIZ Face to Face with patient for initial transition planning/care coordination assessment. KWASI RUIZ introduced self and role at [facility]. Patient lying in bed, alert and oriented. Patient willing to participate in assessment and is able to answer all questions appropriately. Care providers, pharmacy, and demographics verified. Patient wishes to discharge home, denies need for home health at this time. Patient states he has no further needs or concerns at this time. CM to follow for discharge planning needs that may arise. PCP: Lionel Specialists: None, Patient never got established with Dr. Kaiser when referral was made previous admission. KWASI RUIZ advised patient that her PCP would need to make a new referral if she would like to be setup with pan washer hand Preferred Pharmacy: [facility] Insurance: [employer] Prescription Benefit: yes Living Will/HPOA: none LNOK: parents, 4 minor children Living Arrangements: Patient states she lives with her 4 children (pyo, 7yo, 6,yo, and 4yo) in a 2 story home. Patient's parents are currently caring for children. Patient states she is independent and able to ambulate stairs at home. Transportation: self, parents DME/HHC: Patient states she has glucometer with supplies and insulin with supplies at home. Patient denied previous HHC. Disposition Plan: Patient to discharge home with family support and follow-up plans in place. Sarah ORELLANA, RN, CM
[2022-02-03] MEDS: Insulin Lispro 100 UNIT/ML INSULN.PEN 10 UNIT SC (11:19)
[2022-02-03 11:31] LABS: Bedside Glucose 279 mg/dL (74-106)
[2022-02-03 13:47] LABS: Anion Gap 7 (5-15); BUN 12 mg/dL (7-18); BUN/Creat Ratio 12.9 RATIO (10-20); Calcium,Total 7.7 mg/dL (8.5-10.1); Chloride 107 mmol/L (98-107); Creatinine, Serum 0.93 mg/dL (0.55-1.02); EST Glomerular Filtration Rate 74 mL/min (>60); Est Glom Filt Rate - Afr Amer 90 mL/min (>60); Estimated Creatinine Clearance 65.53 ml/min; Glucose 350 mg/dL (74-106); Potassium 4.2 mmol/L (3.5-5.1); Sodium Level 135 mmol/L (136-145)
--- NOTE | 2022-02-03 14:47 | DCINST_ITS ---
Discharge Instructions Diet Discharge Diet: 1800 Calorie Control Diet Activity Discharge Activity: Return to Normal Activity Weight Bearing Status: Full weight bearing Follow Up Care Test Results: Test results from this visit will be discussed in further detail at your follow- up appointment, if applicable. Discharge Plan Admission Admit Date/Time: 02/02/22 20:13 Primary Reason for Your Visit: DKA Attending Provider: Michael Acosta Primary Care Provider: Meena Flowers Consulting Providers: Len Coyne ; Dian Galan Discharge Orders/Prescriptions Prescriptions: New insulin glargine-yfgn 100 unit/mL (3 mL) Insulin Pen 25 unit subcut BID Qty: 0 0RF insulin aspart U-100 [Novolog Flexpen U-100 Insulin] 100 unit/mL (3 mL) insulin pen 10 unit subcut TID Qty: 15 0RF Continued insulin aspart U-100 [Novolog Flexpen U-100 Insulin] 100 unit/mL (3 mL) insulin pen See Protocol SUBCUT TID PRN (Reason: Hyperglycemia) Protocol: 5. Sliding Scale Insulin High Dosing Condition: 150-209 mg/dl = 3 units Condition: 210-259 mg/dl = 6 units Condition: 260-324 mg/dl = 9 units Condition: 325-374 mg/dl = 12 units Condition: 375-409 mg/dl = 14 units Condition: 410-449 mg/dl = 16 units Condition: Greater than 449 call physician Protocol Text: - Use for Total Daily Dose of Insulin 81-120 units - Very insulin resistant or septic patients HIGH DOSING ALGORITHM Label Comments: INJECT SUBCUTANEOUSLY PER SLIDING SCALE, MAX 40 UNITS PER DAY potassium chloride [Klor-Con M20] 20 mEq tablet,ER particles/crystals 30 meq PO BIDCM Discontinued insulin glargine [Basaglar KwikPen U-100 Insulin] 100 unit/mL (3 mL) insulin pen 15 unit subcut BID Qty: 15 0RF Referrals / Follow Up: Meena Flowers [Primary Care Provider] - In 1 Week Disposition Disposition (needs filled in before D/C Order can be placed): Home, Self Care
--- NOTE | 2022-02-03 14:57 | DS.PCM_ITS ---
Providers Date of Admission: 02/02/22 Date of Discharge: 02/03/22 Primary Care Physician: Meena Flowers Consultations 02/02/22 21:06 Consult: Network Support / Pulmonary Medicine Routine Consulting Provider: Len Coyne Reason for Consult: DKA EMERGENT Consult: No MD Notified: Yes Date Notified: 02/02/22 Time Notified: 20:15 Method of Notification: Text Reason For Visit: DKA Diagnosis Discharge Diagnosis (1) Diabetic ketoacidosis: Status: Acute Code(s): E11.10 - Type 2 diabetes mellitus with ketoacidosis without coma Plan 1. Diabetic ketoacidosis secondary to uncontrolled type 1 diabetes #2 type 1 diabetes-uncontrolled #3 chronic kidney disease stage III AA secondary to type 1 diabetes Medications at Discharge Home Medications insulin aspart U-100 100 unit/mL (3 mL) subcutaneous pen (Novolog Flexpen U-100 Insulin aspart) See Protocol subcut TID PRN Hyperglycemia 02/02/22 potassium chloride 20 mEq tablet,extended release(part/cryst) (Klor-Con M) 30 meq PO BIDCM 02/02/22 insulin aspart U-100 100 unit/mL (3 mL) subcutaneous pen (Novolog Flexpen U-100 Insulin aspart) 10 unit (0.1 mL) subcut TID #15 mL 02/03/22 insulin glargine-yfgn 100 unit/mL (3 mL) subcutaneous pen 25 unit (0.25 mL) subcut BID #0 mL 02/03/22 Hospital Course Operations None Procedures None Summary of Care Provided Minutes Spent on Discharge: 32 Hospital Course: This 31-year-old white female was seen in the emergency room at [facility] with complaints of nausea and vomiting and elevated blood sugars at home. Patient has a history of type 1 diabetes, her last admission for diabetic ketoacidosis was August 2019. Work-up in the emergency room showed an elevated white blood cell count at 17.6, EKG showed a sinus tachycardia, CMP was drawn and the results were consistent with diabetic ketoacidosis with an anion gap of 27. Glucose was elevated at 430, venous blood gas was obtained and showed a pH of 7. Patient was started on an insulin drip, admitted to the ICU, and received vigorous fluid resuscitation. Patient's condition stabilized quickly, she was placed on a diet and placed back on basal insulin and short acting insulin with each meal. On 02/03/2022, patient was seen and examined: On examination she appeared in good health and spirits, she does not appear to be in any distress. Vital signs as documented. Skin warm and dry and without overt rashes. Neck without JVD, thyroid appears normal, trachea is midline, neck is supple. Lungs clear, normal air movement was noted. Heart exam notable for regular rhythm, normal sounds and absence of murmurs, rubs or gallops. Abdomen unremarkable and without evidence of organomegaly, masses, or abdominal aortic enlargement, bowel sounds are present in all 4 quadrants, no abdominal tenderness was noted. Extremities nonedematous, no cyanosis was noted, no clubbing was noted. Neuro: Cranial nerves II through XII are grossly intact, no focal motor deficits were noted, sensation to light touch and pinprick is intact, motor exam 5/5 throughout. Psych: Patient is alert and oriented x3, she does not appear anxious or depressed, she does not appear agitated. Patient appears to be stable for discharge home on 02/03/2022. Weight / BMI Weight Weight: 72.7 kg Body Mass Index (BMI) 29.5 ABG / Lab / Microbiology Data Result Diagrams: 02/03/22 03:45 02/03/22 13:10 Laboratory: Laboratory Results - last 24 hr 02/02/22 19:17: Urine Color Yellow, Urine Clarity Clear, Urine pH 5.0, Ur Specific [place] 1.030, Urine Protein 100 H, Urine Glucose (UA) 1000 H, Urine Ketones 150 A*, Urine Occult Blood 10 H, Urine Nitrite Negative, Urine Bilirubin Negative, Urine Urobilinogen Normal, Ur Leukocyte Esterase Negative, Urine RBC 0-5 SEEN, Urine WBC 0-5 SEEN, Ur Squamous Epith Cells 0-5 SEEN, Urine Bacteria 1+, Urine Mucus 0 SEEN 02/02/22 19:20: WBC 17.6 H, RBC 5.04, Hgb 14.9, Hct 48.0 H, MCV 95.2, MCH 29.6, MCHC 31.0 L, RDW Std Deviation 49.6 H, RDW Coeff of Bret 14.1, Plt Count 441, MPV 10.0, Immature Gran % (Auto) 1.100 H, Neut % (Auto) 84.1 H, Lymph % (Auto) 8.5 L , [place] % (Auto) 5.7, Eos % (Auto) 0.0, Baso % (Auto) 0.6, Absolute Neuts (auto) 14.8 H, Absolute Lymphs (auto) 1.50, Nucleated RBC % 0 02/02/22 19:20: Sodium 129 L, Potassium 5.2 H, Chloride 95 L, Carbon Dioxide 7.0 L*, Anion Gap 27 H, BUN 12, Creatinine 1.07 H, Estim Creat Clear Calc 56.96, Est GFR (MDRD) Af Amer 76, Est GFR (MDRD) Non-Af 63, BUN/Creatinine Ratio 11.2, Glucose 430 H, Calcium 9.4, Total Bilirubin 0.60, AST 37, ALT 54, Alkaline Phosphatase 122 H, Total Protein 8.9 H, Albumin 4.2, Globulin 4.7 H, Albumin/Globulin Ratio 0.9 02/02/22 19:20: Acetone Level MODERATE H 02/02/22 19:20: Sodium 129 L, Potassium 5.3 H, Chloride 97 L, Carbon Dioxide 7.0 L*, Anion Gap 25 H, BUN 12, Creatinine 1.07 H, Estim Creat Clear Calc 56.96, Est GFR (MDRD) Af Amer 76, Est GFR (MDRD) Non-Af 63, BUN/Creatinine Ratio 11.2, G lucose 434 H, Calcium 9.3, Phosphorus 5.4 H, Magnesium 2.3 02/02/22 19:23: POC Glucose 426 H 02/02/22 20:54: POC Glucose 369 H 02/02/22 22:01: POC Glucose 307 H 02/02/22 23:15: POC Glucose 208 H 02/03/22 00:00: Sodium 140, Potassium 4.4, Chloride 112 H, Carbon Dioxide 8.0 L* , Anion Gap 20 H, BUN 8, Creatinine 0.67, Estim Creat Clear Calc 90.96, Est GFR (MDRD) Af Amer 131, Est GFR (MDRD) Non-Af 108, BUN/Creatinine Ratio 11.9, Glucose 196 H, Calcium 7.0 L 02/03/22 00:25: POC Glucose 201 H 02/03/22 01:05: POC Glucose 246 H 02/03/22 02:05: POC Glucose 237 H 02/03/22 03:21: POC Glucose 220 H 02/03/22 03:45: Sodium 138, Potassium 4.1, Chloride 111 H, Carbon Dioxide 14.0 L , Anion Gap 13, BUN 8, Creatinine 0.77, Estim Creat Clear Calc 79.15, Est GFR (MDRD) Af Amer 112, Est GFR (MDRD) Non-Af 92, BUN/Creatinine Ratio 10.4, Glucose 219 H, Calcium 7.1 L 02/03/22 03:45: WBC 9.0, RBC 3.83 L, Hgb 11.8 L, Hct 36.0 L, MCV 94.0, MCH 30.8, MCHC 32.8 D, RDW Std Deviation 49.1 H, RDW Coeff of Bret 14.2, Plt Count 278, MPV 9.5, Immature Gran % (Auto) 0.400, Neut % (Auto) 67.2, Lymph % (Auto) 22.7, [place] % (Auto) 9.0, Eos % (Auto) 0.1, Baso % (Auto) 0.6, Absolute Neuts (auto) 6.1, Absolute Lymphs (auto) 2.05, Nucleated RBC % 0 02/03/22 03:45: Hemoglobin A1c 10.7 H 02/03/22 04:04: POC Glucose 207 H 02/03/22 06:03: POC Glucose 198 H 02/03/22 07:20: Sodium 137, Potassium 3.7, Chloride 110 H, Carbon Dioxide 18.0 L , Anion Gap 9, BUN 8, Creatinine 0.80, Estim Creat Clear Calc 76.18, Est GFR (MDRD) Af Amer 106, Est GFR (MDRD) Non-Af 88, BUN/Creatinine Ratio 10.0, Glucose 290 H, Calcium 7.0 L 02/03/22 09:27: POC Glucose 157 H 02/03/22 11:06: POC Glucose 279 H 02/03/22 13:10: Sodium 135 L, Potassium 4.2, Chloride 107, Carbon Dioxide 21.0, Anion Gap 7, BUN 12, Creatinine 0.93, Estim Creat Clear Calc 65.53, Est GFR (MDR D) Af Amer 90, Est GFR (MDRD) Non-Af 74, BUN/Creatinine Ratio 12.9, Glucose 350 H, Calcium 7.7 L ABG: ABG 02/02/22 02/02/22 19:39 22:51 Specimen Type BETHANY ART Sample Site L Radial pH 7.13 L* Bicarbonate Actual 6.1 L Total CO2 7 Base Excess -23 L O2 Saturation 72 L ABG pCO2 18.4 L* ABG pO2 48 L Mahendra Test Positive VBG pH 7.01 L* VBG pO2 69 H VBG HCO3 5 L VBG Total CO2 5 L VBG O2 Sat (Calc) 83 H VBG Base Excess -26 L POC Mix VBG pCO2 Pt Tmp 18.7 L* O2 Delivery Device Room Air Crit Call To/Read Back Yes Yes Blood Gas Notified Whom Lexie Blood Gas Notified Time 19:40:39 D/C Instructions Discharge Diet: 1800 Calorie Control Diet Weight Bearing Status: Full weight bearing Meaningful Use Info Meaningful Use Diagnoses (Choose all that apply): None applicable Discharge Plan Admission Admit Date/Time: 02/02/22 20:13 Primary Reason for Your Visit: DKA Attending Provider: Michael Acosta Primary Care Provider: Meena Flowers Consulting Providers: Len Coyne ; Dian Galan Discharge Orders/Prescriptions Prescriptions: New insulin glargine-yfgn 100 unit/mL (3 mL) Insulin Pen 25 unit subcut BID Qty: 0 0RF insulin aspart U-100 [Novolog Flexpen U-100 Insulin] 100 unit/mL (3 mL) insuli n pen 10 unit subcut TID Qty: 15 0RF Continued insulin aspart U-100 [Novolog Flexpen U-100 Insulin] 100 unit/mL (3 mL) insulin pen See Protocol SUBCUT TID PRN (Reason: Hyperglycemia) Protocol: 5. Sliding Scale Insulin High Dosing Condition: 150-209 mg/dl = 3 units Condition: 210-259 mg/dl = 6 units Condition: 260-324 mg/dl = 9 units Condition: 325-374 mg/dl = 12 units Condition: 375-409 mg/dl = 14 units Condition: 410-449 mg/dl = 16 units Condition: Greater than 449 call physician Protocol Text: - Use for Total Daily Dose of Insulin 81-120 units - Very insulin resistant or septic patients HIGH DOSING ALGORITHM Label Comments: INJECT SUBCUTANEOUSLY PER SLIDING SCALE, MAX 40 UNITS PER DAY potassium chloride [Klor-Con M20] 20 mEq tablet,ER particles/crystals 30 meq PO BIDCM Discontinued insulin glargine [Basaglar KwikPen U-100 Insulin] 100 unit/mL (3 mL) insulin pen 15 unit subcut BID Qty: 15 0RF Referrals / Follow Up: Meena Flowers [Primary Care Provider] - In 1 Week Disposition Disposition (needs filled in before D/C Order can be placed): Home, Self Care Charges/Coding Visit Charges Inpatient E&M: 30283 Disch Hosp
--- NOTE | 2022-02-03 18:05 | CPS ---
Attempted to get ABG, venous sample obtained on 02/02/22 at 22:51. Critical Ph and CO2 values, Dr. Galan notified.
== END 2022-02-03 15:32 | disposition home or self-care (01) | DRG 420 ==
LOC: ED 20:26 → ICU 20:29
PROVIDERS: Admitting Provider Family Medicine; Emergency Provider Emergency Medicine; PCP Family Medicine; Visit Provider Internal Medicine
DX: E10.10 Type 1 diabetes mellitus with ketoacidosis without coma (principal); E10.22 Type 1 diabetes mellitus with diabetic chronic kidney disease; N18.31 Chronic kidney disease, stage 3a; Z79.4 Long term (current) use of insulin; F17.210 Nicotine dependence, cigarettes, uncomplicated; E87.5 Hyperkalemia; E66.9 Obesity, unspecified; Z68.29 Body mass index [BMI] 29.0-29.9, adult; Z79.899 Other long term (current) drug therapy
CPT/HCPCS: 36600; 80048; 80053; 81001; 82009; 82803; 82962; 83036; 83735; 84100; 85025; 93005; 97802; 99251; 99285; J7030; A4216; G0463; J2405; J3490; J7799

== ENCOUNTER 2023-05-23 00:52 | Emergency (ER) | payer MEDICAID, SELFPAY ==
[2023-05-23 00:53] VITALS: BP 145/111; PULSE 128; RESP 16; TEMP 36.2; O2SAT 98; BMI 31.9
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
--- NOTE | 2023-05-23 01:06 | EKG12_ITS ---
Test Reason : DYSRHYTHMIA Blood Pressure : / mmHG Vent. Rate : 107 BPM Atrial Rate : 107 BPM P-R Int : 144 ms QRS Dur : 080 ms QT Int : 360 ms P-R-T Axes : 067 010 042 degrees QTc Int : 480 ms Sinus tachycardia Nonspecific T wave abnormality Abnormal ECG Confirmed by CAMERON JENNINGS, EMILY ([id number]), web editor SABRINA MCCLELLAN ([id number]) on 05/30/2023 10:44:57 AM Referred By: Confirmed By:EMILY BARNES MD
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
[2023-05-23 01:09] VITALS: O2SAT 100
[2023-05-23 01:21] LABS: Bedside Glucose 451 mg/dL (74-106)
[2023-05-23 01:51] LABS: Absolute Lymphocyte Count 1.42 X10^3/uL (0.83-4.51); Absolute Neutrophil Count 9.9 X10^3/uL (2.0-7.7); Basophil# 0.08 X10^3/uL; Basophil% 0.7 % (0-1); Eosinophil# 0.01 X10^3/uL; Eosinophils% 0.1 % (0-5); Hematocrit 47.3 % (37-47); Hemoglobin 15.5 g/dL (12.0-15.0); Lymphocyte # 1.42 X10^3/ul (0.83-4.51); Lymphocyte % 11.8 % (19-41); Mean Corp Hgb Conc 32.8 g/dL (32-36); Mean Corpuscular Hgb 31.8 pg (27.0-32.0); Mean Corpuscular Volume 96.9 fL (81-99); Mean Platelet Vol. 9.5 fl (6.2-12.0); Monocyte# 0.66 X10^3/uL; Monocyte% 5.5 % (0-10); NRBC Flagged by Analyzer 0 % (0-5); Neutrophil # 9.85 X10^3/uL (2.7-7.7); Neutrophil % 81.5 % (47-70); Platelet Count 317 K/mm3 (150-450); RBC Distribution Width CV 12.9 % (11.6-14.6); RBC Distribution Width SD 45.6 fl (35.1-43.9); Red Blood Count 4.88 M/mm3 (4.2-5.4); White Blood Count 12.1 K/mm3 (4.4-11.0)
[2023-05-23 02:02] LABS: Blood Gas Specimen Type VEN; O2 Delivery Device Room Air; SITE Not entered; VBG BASE EXCESS -7 mmol/L (-1.0-3.5); VBG Bicarbonate 19 mmol/L (22-26); VBG PO2 58 mmHg (25-40); VBG SO2 88 % (50-70); VBG TCO2 20 mmol/L (23-33); VBG pCO2 36.8 mmHg (41-51); VBG pH 7.33 (7.32-7.42)
[2023-05-23 02:26] LABS: Anion Gap 14 (5-15); BUN 8 mg/dL (7-18); BUN/Creat Ratio 9.1 RATIO (10-20); Calcium,Total 9.5 mg/dL (8.5-10.1); Chloride 103 mmol/L (98-107); Creatinine, Serum 0.88 mg/dL (0.55-1.02); EST Glomerular Filtration Rate 79 mL/min (>60); Est Glom Filt Rate - Afr Amer 95 mL/min (>60); Estimated Creatinine Clearance 68.61 ml/min; Glucose 432 mg/dL (74-106); Potassium 4.6 mmol/L (3.5-5.1); Sodium Level 137 mmol/L (136-145); Troponin-I HS (w/2H Reflex) 5 pg/mL (3.0-54.0)
[2023-05-23] MEDS: 0.9% Normal Saline (1000mL) 1,000 ML 999 ML IV (03:11)
[2023-05-23 03:27] VITALS: BP 139/88; PULSE 72; RESP 16; O2SAT 98
[2023-05-23 03:49] LABS: Reflex Troponin-HS? (from REC) Y
== END 2023-05-23 03:29 ==
PROVIDERS: Emergency Provider Emergency Medicine; PCP Family Medicine; Visit Provider Emergency Medicine
DX: F10.129 Alcohol abuse with intoxication, unspecified (principal); E10.22 Type 1 diabetes mellitus with diabetic chronic kidney disease; N18.31 Chronic kidney disease, stage 3a; S09.90XA Unspecified injury of head, initial encounter; S80.01XA Contusion of right knee, initial encounter; F17.210 Nicotine dependence, cigarettes, uncomplicated; V49.40XA Driver injured in collision with unspecified motor vehicles in traffic accident, initial encounter
CPT/HCPCS: 70450; 71045; 72125; 73560; 80048; 82009; 82077; 82803; 82962; 84484; 85025; 93005; 99285

== ENCOUNTER 2023-05-25 16:40 | Observation (INO) | payer MEDICAID, SELFPAY ==
[2023-05-25] VITALS (8 sets, daily range): BP systolic 107–145; BP diastolic 80–109; PULSE 82–114; RESP 14–25; TEMP 36.3–36.8; O2SAT 97–100; BMI 31.6; BMI 31.4
--- NOTE | 2023-05-25 17:25 | EKG12_ITS ---
Test Reason : HYERGLYCEMIA Blood Pressure : / mmHG Vent. Rate : 099 BPM Atrial Rate : 099 BPM P-R Int : 104 ms QRS Dur : 070 ms QT Int : 326 ms P-R-T Axes : 001 009 000 degrees QTc Int : 418 ms Sinus rhythm with sinus arrhythmia with short MT Otherwise normal ECG Confirmed by CAMERON JENNINGS, EMILY ([id number]), editor book SABRINA MCCLELLAN ([id number]) on 05/30/2023 12:29:15 PM Referred By: MIRNA Confirmed By:EMILY BARNES MD
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
--- NOTE | 2023-05-25 17:40 | RAD_ITS ---
INDICATION: sob EXAMINATION/TECHNIQUE: X-RAY - portable upright AP chest x-ray COMPARISON: 05/23/2023 FINDINGS: LINES/DEVICES: None. LUNGS: No consolidation, edema or effusion. No pneumothorax. MEDIASTINUM AND CARDIOVASCULAR STRUCTURES: Cardiac silhouette not enlarged. Central airways and mediastinal contour are unremarkable. BONES AND SOFT TISSUES: Unremarkable. RAD/Chest 1 View (Portable) IMPRESSION: No radiographic evidence of acute cardiopulmonary disease. Electronically Signed: Eder Jacobo MD at 18:22 EST ,
[2023-05-25] MEDS: 0.9% Normal Saline (1000mL) 1,000 ML 1000 ML IV (17:52)
[2023-05-25 18:01] LABS: Mucous, Urine 0 SEEN /hpf (<or=2+)
[2023-05-25 18:05] LABS: Absolute Lymphocyte Count 1.15 X10^3/uL (0.83-4.51); Absolute Neutrophil Count 7.3 X10^3/uL (2.0-7.7); Basophil# 0.11 X10^3/uL; Basophil% 1.2 % (0-1); Eosinophil# 0.01 X10^3/uL; Eosinophils% 0.1 % (0-5); Hematocrit 47.2 % (37-47); Hemoglobin 14.9 g/dL (12.0-15.0); Lymphocyte # 1.15 X10^3/ul (0.83-4.51); Lymphocyte % 12.4 % (19-41); Mean Corp Hgb Conc 31.6 g/dL (32-36); Mean Corpuscular Hgb 31.6 pg (27.0-32.0); Mean Corpuscular Volume 100.2 fL (81-99); Mean Platelet Vol. 9.8 fl (6.2-12.0); Monocyte# 0.66 X10^3/uL; Monocyte% 7.1 % (0-10); NRBC Flagged by Analyzer 0 % (0-5); Neutrophil # 7.29 X10^3/uL (2.7-7.7); Neutrophil % 78.8 % (47-70); Platelet Count 335 K/mm3 (150-450); RBC Distribution Width CV 12.6 % (11.6-14.6); RBC Distribution Width SD 46.5 fl (35.1-43.9); Red Blood Count 4.71 M/mm3 (4.2-5.4); White Blood Count 9.3 K/mm3 (4.4-11.0)
[2023-05-25 18:20] LABS: Color, Urine Yellow (Yellow); Glucose, Dipstick 1000 mg/dl (Normal); Leukocyte Esterase-Dipstick Negative /ul (Negative); Nitrite-Dipstick Negative (Negative); Occult Blood-Urine 10 /ul (Negative); Protein-Dipstick 30 mg/dl (Negative); Specific Gravity, Urine 1.025 (1.002-1.030); Urine Bilirubin Dipstick Negative (Negative); Urine Clarity Clear (Clear); Urine Urobilinogen Normal (Normal)
[2023-05-25 18:21] LABS: AST(SGOT) 64 U/L (15-37); Alanine Aminotransfer ALT/SGPT 75 U/L (13-56); Albumin, Serum 3.7 g/dL (3.2-5.0); Alkaline Phosphatase 116 U/L (45-117); Anion Gap 18 (5-15); BUN 3 mg/dL (7-18); BUN/Creat Ratio 3.9 RATIO (10-20); Bilirubin, Direct 0.28 mg/dL (0.00-0.30); Calcium,Total 9.2 mg/dL (8.5-10.1); Chloride 103 mmol/L (98-107); Creatinine, Serum 0.78 mg/dL (0.55-1.02); EST Glomerular Filtration Rate 91 mL/min (>60); Est Glom Filt Rate - Afr Amer 110 mL/min (>60); Estimated Creatinine Clearance 77.41 ml/min; Globulin 4.8 g/dL (2.2-4.2); Glucose 228 mg/dL (74-106); Potassium 4.1 mmol/L (3.5-5.1); Protein, Total 8.5 g/dL (6.4-8.2); Sodium Level 132 mmol/L (136-145)
[2023-05-25 18:24] LABS: Ketone-Dipstick 150 mg/dl (Negative)
[2023-05-25 18:25] LABS: Red Blood Cells-Urine 0-5 SEEN /hpf (0-5); Squamous Epithelial Cells - UA 0-5 SEEN /hpf (5-10); White Blood Cells 0-5 SEEN /hpf (0-5)
[2023-05-25 18:26] LABS: Bacteria RARE /hpf (None Seen)
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
[2023-05-25 20:46] LABS: Bedside Glucose 191 mg/dL (74-106)
[2023-05-25] MEDS: Dextrose 5%/0.9% NaCl 1,000 ML 150 ML IV (21:03)
[2023-05-25] MEDS: Insulin Lispro 100 UNIT in 0.9% Normal Saline (100mL Bag) 99 ML CONT INF (21:04)
[2023-05-25 21:08] LABS: Anion Gap 16 (5-15); BUN 3 mg/dL (7-18); BUN/Creat Ratio 5.1 RATIO (10-20); Chloride 110 mmol/L (98-107); Creatinine, Serum 0.59 mg/dL (0.55-1.02); EST Glomerular Filtration Rate 124 mL/min (>60); Est Glom Filt Rate - Afr Amer 150 mL/min (>60); Estimated Creatinine Clearance 102.34 ml/min; Glucose 175 mg/dL (74-106); Potassium 4.1 mmol/L (3.5-5.1); Sodium Level 136 mmol/L (136-145)
[2023-05-25] MEDS: KCl 20MEQ in D5NS 20 MEQ/1,000 ML IV.SOLN. 150 MEQ IV (22:26)
[2023-05-25 22:47] LABS: Bedside Glucose 200 mg/dL (74-106)
[2023-05-25 23:37] LABS: Bedside Glucose 166 mg/dL (74-106)
[2023-05-26] VITALS (14 sets, daily range): BP systolic 108–125; BP diastolic 75–96; PULSE 75–110; RESP 16–26; TEMP 36.7–36.9; O2SAT 98–99; BMI 31.5
[2023-05-26 00:36] LABS: Bedside Glucose 108 mg/dL (74-106)
--- NOTE | 2023-05-26 01:29 | NURSING ---
Insulin gtt placed on hold d/t personal CGM alarming, bedside glucose monitor reads 81, pt states that's too low for me, I don't want anymore insulin. Pt made aware that this RN would notify the MD on tonight, D5NS allowed to run at 150ml/hr for now to help pt w/sick feeling until further directed by MD.
[2023-05-26 01:34] LABS: Absolute Neutrophil Count 5.2 X10^3/uL (2.0-7.7); Basophil# 0.08 X10^3/uL; Eosinophil# 0.11 X10^3/uL; Eosinophils% 1.4 % (0-5); Hematocrit 39.5 % (37-47); Hemoglobin 12.7 g/dL (12.0-15.0); Lymphocyte % 19.4 % (19-41); Mean Corp Hgb Conc 32.2 g/dL (32-36); Mean Corpuscular Hgb 31.8 pg (27.0-32.0); Mean Corpuscular Volume 98.8 fL (81-99); Mean Platelet Vol. 9.8 fl (6.2-12.0); Monocyte# 0.82 X10^3/uL; Monocyte% 10.6 % (0-10); NRBC Flagged by Analyzer 0 % (0-5); Neutrophil % 67.2 % (47-70); Platelet Count 284 K/mm3 (150-450); RBC Distribution Width CV 12.5 % (11.6-14.6); RBC Distribution Width SD 45.2 fl (35.1-43.9); White Blood Count 7.7 K/mm3 (4.4-11.0)
[2023-05-26 01:46] LABS: Bedside Glucose 81 mg/dL (74-106)
[2023-05-26 01:48] LABS: Anion Gap 11 (5-15); BUN 3 mg/dL (7-18); BUN/Creat Ratio 5.1 RATIO (10-20); Calcium,Total 8.2 mg/dL (8.5-10.1); Chloride 114 mmol/L (98-107); Creatinine, Serum 0.59 mg/dL (0.55-1.02); EST Glomerular Filtration Rate 124 mL/min (>60); Est Glom Filt Rate - Afr Amer 150 mL/min (>60); Estimated Creatinine Clearance 102.34 ml/min; Glucose 96 mg/dL (74-106); Potassium 3.7 mmol/L (3.5-5.1); Sodium Level 139 mmol/L (136-145)
[2023-05-26 01:51] LABS: Phosphorus 1.6 mg/dL (2.5-4.9)
[2023-05-26 01:57] LABS: Hemoglobin A1c 8.3 % (3.8-5.6)
[2023-05-26 02:29] LABS: Bedside Glucose 52 mg/dL (74-106)
[2023-05-26 05:19] LABS: Bedside Glucose 112 mg/dL (74-106)
[2023-05-26 05:19] LABS: Bedside Glucose 160 mg/dL (74-106)
[2023-05-26 05:19] LABS: Bedside Glucose 186 mg/dL (74-106)
[2023-05-26] MEDS: 0.9% Saline Lock 10 ML Syringe IV (05:23)
[2023-05-26 05:41] LABS: Bedside Glucose 243 mg/dL (74-106)
[2023-05-26 05:42] LABS: Bedside Glucose 251 mg/dL (74-106)
[2023-05-26 06:08] LABS: Anion Gap 15 (5-15); BUN 3 mg/dL (7-18); BUN/Creat Ratio 5.6 RATIO (10-20); Calcium,Total 7.5 mg/dL (8.5-10.1); Chloride 112 mmol/L (98-107); Creatinine, Serum 0.54 mg/dL (0.55-1.02); EST Glomerular Filtration Rate 138 mL/min (>60); Est Glom Filt Rate - Afr Amer 167 mL/min (>60); Estimated Creatinine Clearance 111.82 ml/min; Glucose 260 mg/dL (74-106); Magnesium 1.7 mg/dL (1.6-2.6); Potassium 4.3 mmol/L (3.5-5.1); Sodium Level 138 mmol/L (136-145)
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
[2023-05-26 08:14] LABS: Bedside Glucose 308 mg/dL (74-106)
[2023-05-26] MEDS: KCl 20MEQ in D5NS 20 MEQ/1,000 ML IV.SOLN. 150 MEQ IV (09:01)
[2023-05-26 09:27] LABS: Bedside Glucose 283 mg/dL (74-106)
[2023-05-26 09:31] LABS: Anion Gap 11 (5-15); BUN 2 mg/dL (7-18); BUN/Creat Ratio 2.9 RATIO (10-20); Calcium,Total 8.2 mg/dL (8.5-10.1); Chloride 112 mmol/L (98-107); Creatinine, Serum 0.69 mg/dL (0.55-1.02); EST Glomerular Filtration Rate 104 mL/min (>60); Est Glom Filt Rate - Afr Amer 126 mL/min (>60); Estimated Creatinine Clearance 87.51 ml/min; Glucose 297 mg/dL (74-106); Potassium 4.1 mmol/L (3.5-5.1); Sodium Level 137 mmol/L (136-145)
[2023-05-26 10:34] LABS: Bedside Glucose 235 mg/dL (74-106)
[2023-05-26] MEDS: Insulin Glargine-YFGN 100 UNIT/ML Pen 24 UNIT SC (11:24)
[2023-05-26 11:28] LABS: Bedside Glucose 177 mg/dL (74-106)
[2023-05-26 12:23] LABS: Bedside Glucose 153 mg/dL (74-106)
--- NOTE | 2023-05-26 12:45 | CASEMGMT ---
Social Work SW met w/pt as pt does not have insurance. She states she had Medicaid and they just cut her off. SW gave her a Medicaid application w/the phone number, encouraged her to call and follow up. SW also gave pt information on [employer], [employer], [employer], [facility] assist, and prescription assist programs. Pt states she does have her diabetic supplies. No further social work needs at this time, SW remains available should any needs arise. VIDA Fatima
--- NOTE | 2023-05-26 13:10 | CASEMGMT ---
RN JOSEPH Face to Face with patient for initial transition planning/care coordination assessment. RN CM introduced self and role at [facility]. Patient lying in bed, alert and oriented. Patient willing to participate in assessment and is able to answer all questions appropriately. Care providers, pharmacy, and demographics verified. Patient wishes to discharge home, denies need for home health at this time. Patient states she has no further needs or concerns at this time. CM to follow for discharge planning needs that may arise. PCP: Lionel Specialists: none Preferred Pharmacy: [facility] Insurance: none, patient has information for Medicaid application Prescription Benefit: none Living Will/HPOA: none LNOK: parents Living Arrangements: Patient lives with parents in a 2 story home. Patient is independent and able to ambulate stairs. Transportation: parents DME/HHC: Patient has glucometer, insulin, and all supplies. No previous HHC or SNF Disposition Plan: Patient to discharge home with family support and follow-up plans in place. Sarah ORELLANA, RN, CM
--- NOTE | 2023-05-26 13:42 | PCM.DC.SUM ---
Providers Date of Admission: 05/25/23 Primary Care Physician: Dr. Meena Flowers DO Reason For Visit: DKA Diagnosis Discharge Diagnosis (1) DKA (diabetic ketoacidosis): Status: Acute Code(s): E11.10 - Type 2 diabetes mellitus with ketoacidosis without coma Qualifiers: Diabetes mellitus type: type 1 Diabetes mellitus complication detail: without coma Qualified Code(s): E10.10 - Type 1 diabetes mellitus with ketoacidosis without coma Plan: Serum glucose: On BMP on presentation was 228. Urine ketones: Elevated at 150. Urine glucose of 1000. Serum acetone level moderate. Anion gap of 18 on presentation Sodium 132, . Corrected sodium 134 Insulin drip started from emergency department at 0.1 kg/h. Will de-escalate to 0.05 kg/h because of risk of hypoglycemia. Completed IV bolus of normal saline and started on dextrose infusion. We will change IV fluids to D5 half-normal saline with 20 of potassium chloride running at 150 ml/hr BMP every 4 hours to calculate anion gap. N.p.o. for now Check A1c. As needed Zofran ordered. Resolved. Resume medications, advance diet, if tolerated--discharge home. Plan Tobacco abuse Counseled DVT prophylaxis Subcutaneous Lovenox ordered. CODE STATUS: Full code. Patient's make medical decision for herself and has no surrogate. Medications at Discharge Home Medications insulin aspart U-100 100 unit/mL (3 mL) subcutaneous pen (Novolog FlexPen U-100 Insulin aspart) See Protocol subcut TID PRN Hyperglycemia 02/02/22 insulin aspart U-100 100 unit/mL (3 mL) subcutaneous pen (Novolog FlexPen U-100 Insulin aspart) 15 unit subcut QHS HYPERGLYCEMIA 05/25/23 insulin glargine-yfgn 100 unit/mL (3 mL) subcutaneous pen 24 unit subcut BREAKFAST HYPERGLYCEMIA 05/25/23 potassium chloride 10 mEq tablet,extended release 20 meq PO BID HYPOKALEMIA 05/25/23 Weight / BMI Weight Weight: 75.7 kg Body Mass Index (BMI) 31.5 ABG / Lab / Microbiology Data 05/26/23 01:25 05/26/23 09:10 Laboratory: Laboratory Results - last 24 hr 05/25/23 01:25: Hemoglobin A1c 8.3 H 05/25/23 17:53: WBC 9.3, RBC 4.71, Hgb 14.9, Hct 47.2 H, MCV 100.2 H, MCH 31.6, MCHC 31.6 L, RDW Std Deviation 46.5 H, RDW Coeff of Bret 12.6, Plt Count 335, MPV 9.8, Immature Gran % (Auto) 0.400, Neut % (Auto) 78.8 H, Lymph % (Auto) 12.4 L, [place] % (Auto) 7.1, Eos % (Auto) 0.1, Baso % (Auto) 1.2 H, Absolute Neuts (auto) 7.3, Absolute Lymphs (auto) 1.15, Nucleated RBC % 0, Sodium 132 L, Potassium 4.1, Chloride 103, Carbon Dioxide 11.0 L, Anion Gap 18 H, BUN 3 L, Creatinine 0.78, Estim Creat Clear Calc 77.41, Est GFR (MDRD) Af Amer 110, Est GFR (MDRD) Non-Af 91, BUN/Creatinine Ratio 3.9 L, Glucose 228 H, Calcium 9.2, Total Bilirubin 0.70, Direct Bilirubin 0.28, AST 64 H, ALT 75 H, Alkaline Phosphatase 116, Total Protein 8.5 H, Albumin 3.7, Globulin 4.8 H, Acetone Level MODERATE H 05/25/23 18:00: Urine Color Yellow, Urine Clarity Clear, Urine pH 5.0, Ur Specific [place] 1.025, Urine Protein 30 H, Urine Glucose (UA) 1000 H, Urine Ketones 150 A*, Urine Occult Blood 10 H, Urine Nitrite Negative, Urine Bilirubin Negative, Urine Urobilinogen Normal, Ur Leukocyte Esterase Negative, Urine RBC 0-5 SEEN, Urine WBC 0-5 SEEN, Ur Squamous Epith Cells 0-5 SEEN, Urine Bacteria RARE, Urine Mucus 0 SEEN 05/25/23 20:18: POC Glucose 191 H 05/25/23 20:32: Sodium 136, Potassium 4.1, Chloride 110 H, Carbon Dioxide 10.0 L, Anion Gap 16 H, BUN 3 L, Creatinine 0.59, Estim Creat Clear Calc 102.34, Est GFR (MDRD) Af Amer 150, Est GFR (MDRD) Non-Af 124, BUN/Creatinine Ratio 5.1 L, Glucose 175 H, Calcium 8.0 L 05/25/23 22:19: POC Glucose 200 H 05/25/23 23:17: POC Glucose 166 H 05/26/23 00:14: POC Glucose 108 H 05/26/23 01:20: POC Glucose 81 05/26/23 01:25: WBC 7.7, RBC 4.00 L, Hgb 12.7, Hct 39.5, MCV 98.8, MCH 31.8, MCHC 32.2, RDW Std Deviation 45.2 H, RDW Coeff of Bret 12.5, Plt Count 284, MPV 9.8, Immature Gran % (Auto) 0.400, Neut % (Auto) 67.2, Lymph % (Auto) 19.4, [place] % (Auto) 10.6 H, Eos % (Auto) 1.4, Baso % (Auto) 1.0, Absolute Neuts (auto) 5.2, Absolute Lymphs (auto) 1.50, Nucleated RBC % 0, Sodium 139, Potassium 3.7, Chloride 114 H, Carbon Dioxide 14.0 L, Anion Gap 11, BUN 3 L, Creatinine 0.59, Estim Creat Clear Calc 102.34, Est GFR (MDRD) Af Amer 150, Est GFR (MDRD) Non-Af 124, BUN/Creatinine Ratio 5.1 L, Glucose 96, Calcium 8.2 L, Phosphorus 1.6 L 05/26/23 02:11: POC Glucose 52 L 05/26/23 02:37: POC Glucose 112 H 05/26/23 02:56: POC Glucose 160 H 05/26/23 03:24: POC Glucose 186 H 05/26/23 04:52: POC Glucose 251 H 05/26/23 05:20: Sodium 138, Potassium 4.3, Chloride 112 H, Carbon Dioxide 11.0 L, Anion Gap 15, BUN 3 L, Creatinine 0.54 L, Estim Creat Clear Calc 111.82, Est GFR (MDRD) Af Amer 167, Est GFR (MDRD) Non-Af 138, BUN/Creatinine Ratio 5.6 L, Glucose 260 H, Calcium 7.5 L, Magnesium 1.7, POC Glucose 243 H 05/26/23 07:48: POC Glucose 308 H 05/26/23 09:00: POC Glucose 283 H 05/26/23 09:10: Sodium 137, Potassium 4.1, Chloride 112 H, Carbon Dioxide 14.0 L, Anion Gap 11, BUN 2 L, Creatinine 0.69, Estim Creat Clear Calc 87.51, Est GFR (MDRD) Af Amer 126, Est GFR (MDRD) Non-Af 104, BUN/Creatinine Ratio 2.9 L, Glucose 297 H, Calcium 8.2 L 05/26/23 10:11: POC Glucose 235 H 05/26/23 11:06: POC Glucose 177 H 05/26/23 12:01: POC Glucose 153 H Radiography Diagnostic Testing: Radiology Impression Chest X-Ray 05/25/23 17:40 IMPRESSION: No radiographic evidence of acute cardiopulmonary disease. Electronically Signed: Eder Jacobo MD at 18:22 EST Reading Location ID and State: [facility] / [place] Tel , Service support , D/C Instructions Discharge Diet: 2000 Calorie Control Diet Meaningful Use Info Meaningful Use Diagnoses (Choose all that apply): None applicable Discharge Plan Admission Admit Date/Time: 05/25/23 19:16 Primary Reason for Your Visit: Ketoacidosis Attending Provider: Douglas Serrano Primary Care Provider: Meena Flowers Consulting Providers: David Miramontes Instructions Additional Instructions / Restrictions: You diabetic ketoacidosis. Continue with your insulin as as previously scheduled. Discharge Orders/Prescriptions Prescriptions: Continued insulin aspart U-100 [Novolog FlexPen U-100 Insulin] 100 unit/mL (3 mL) insulin pen See Protocol SUBCUT TID PRN (Reason: Hyperglycemia) Protocol: 5. Sliding Scale Insulin High Dosing Condition: 150-209 mg/dl = 3 units Condition: 210-259 mg/dl = 6 units Condition: 260-324 mg/dl = 9 units Condition: 325-374 mg/dl = 12 units Condition: 375-409 mg/dl = 14 units Condition: 410-449 mg/dl = 16 units Condition: Greater than 449 call physician Protocol Text: - Use for Total Daily Dose of Insulin 81-120 units - Very insulin resistant or septic patients HIGH DOSING ALGORITHM Patient Comments: INJECT SUBCUTANEOUSLY PER SLIDING SCALE, MAX 40 UNITS PER DAY potassium chloride 10 mEq tablet extended release 20 meq PO BID Patient Comments: TAKE 2 TABLETS BY MOUTH IN THE MORNING AND 2 IN THE EVENING insulin aspart U-100 [Novolog FlexPen U-100 Insulin] 100 unit/mL (3 mL) insulin pen 15 unit subcut QHS insulin glargine-yfgn 100 unit/mL (3 mL) Insulin Pen 24 unit subcut BREAKFAST Referrals / Follow Up: Meena Flowers DO [Primary Care Provider] - Within 2 Weeks Disposition Disposition (needs filled in before D/C Order can be placed): Home, Self Care Charges/Coding Visit Charges Inpatient E&M: 00372 Disch Hosp
== END 2023-05-26 14:34 | disposition home or self-care (01) | DRG 639 ==
LOC: ED 19:14 → ICU 05-26 06:59
PROVIDERS: Admitting Provider Hospitalist; Emergency Provider Emergency Medicine; PCP Family Medicine
DX: E10.10 Type 1 diabetes mellitus with ketoacidosis without coma (principal); F10.129 Alcohol abuse with intoxication, unspecified; E10.22 Type 1 diabetes mellitus with diabetic chronic kidney disease; Z79.4 Long term (current) use of insulin; N18.31 Chronic kidney disease, stage 3a; S09.90XA Unspecified injury of head, initial encounter; S80.01XA Contusion of right knee, initial encounter; F17.210 Nicotine dependence, cigarettes, uncomplicated; Y90.8 Blood alcohol level of 240 mg/100 ml or more; V49.40XA Driver injured in collision with unspecified motor vehicles in traffic accident, initial encounter
CPT/HCPCS: 70450; 71045; 72125; 73560; 80048; 80076; 80320; 81001; 82009; 82803; 82962; 83036; 83735; 84100; 84484; 85025; 93005; 96361; 96365; 96366; 96367; 97802; 99221; 99285; J7030; A4216; G0378; G0480

== ENCOUNTER 2023-06-05 12:34 | Emergency (ER) | payer MEDICAID, SELFPAY ==
[2023-06-05 12:35] VITALS: BP 139/96; PULSE 115; RESP 16; TEMP 36.4; O2SAT 100
[2023-06-05 12:53] VITALS: BMI 31.9
--- NOTE | 2023-06-05 13:03 | EDS_ITS ---
HPI <MARTINEZ Sánchez - Last Filed: 06/05/23 14:03> History of Present Illness Chief Complaint: Abscess Narrative Narrative: 32-year-old female has had a left labial abscess for the last 3 days. She states she has had one before on the right side a few years ago that required I&D. She denies fever or chills. No urinary symptoms or vaginal discharge. She is diabetic on insulin. Sugars today are around 240. PFSH <MARTINEZ Sánchez - Last Filed: 06/05/23 14:03> PFSH Medical History Diabetes mellitus type 1, uncontrolled, insulin dependent Hypokalemia Stage 3a chronic kidney disease (CKD) Tobacco use Home Medications insulin aspart U-100 100 unit/mL (3 mL) subcutaneous pen (Novolog FlexPen U-100 Insulin aspart) See Protocol subcut TID PRN Hyperglycemia 02/02/22 [History Last Taken Unknown] insulin aspart U-100 100 unit/mL (3 mL) subcutaneous pen (Novolog FlexPen U-100 Insulin aspart) 15 unit subcut QHS HYPERGLYCEMIA 05/25/23 [History Last Taken Unknown] insulin glargine-yfgn 100 unit/mL (3 mL) subcutaneous pen 24 unit subcut BREAKFAST HYPERGLYCEMIA 05/25/23 [History Last Taken Unknown] potassium chloride 10 mEq tablet,extended release 20 meq PO BID HYPOKALEMIA 05/25/23 [History Last Taken Unknown] Allergy/AdvReac Type Severity Reaction Status Date / Time bee venom protein (honey bee) Allergy Anaphylaxis Verified 06/05/23 12:37 Family History Grandmother Diabetes Hypertension Heart disease Grandfather Diabetes Colon cancer Surgical History History of partial hysterectomy Hx of tonsillectomy Social History household members: children current occupational exposures/hazards: No Smoking Status: Light Smoker (<10/day) alcohol intake: current alcohol intake frequency: holidays/special occasions only substance use type: does not use ROS <MARTINEZ Sánchez - Last Filed: 06/05/23 14:03> ROS ED ROS Narrative Constitutional: Negative for fever, chills, malaise. GI: Negative for abdominal pain, nausea, vomiting. : Negative for dysuria. Skin: Positive for abscess. EXAM <MARTINEZ Sánchez - Last Filed: 06/05/23 14:03> Physical Exam Narrative Exam Narrative: CONST: Patient sitting in no acute distress. EYES: Normal inspection. NECK: Normal inspection. RESP: No respiratory distress, CTAB. CVS: Regular rate and rhythm, no murmur, no gallop. : Left Bartholin's duct enlarged and fluctuant. Normal vaginal introitus, normal surrounding skin with no cellulitis. SKIN: Color normal, no rash, warm, dry, intact. EXTREMITIES: Normal appearance, no pedal edema. NEURO: Oriented x4. PSYCH: Normal affect. Const Vital Signs: 06/05/23 12:35 06/05/23 14:18 Temperature 97.5 F L 98.2 F Temperature Source Temporal Pulse Rate 115 H 72 Respiratory Rate 16 14 Blood Pressure 139/96 H Blood Pressure Mean 110 Pulse Ox 100 Oxygen Delivery Method Room Air <Dr. Douglas Alvarez, - Last Filed: 06/05/23 15:51> Physical Exam Const Vital Signs: 06/05/23 12:35 06/05/23 14:18 Temperature 97.5 F L 98.2 F Temperature Source Temporal Pulse Rate 115 H 72 Respiratory Rate 16 14 Blood Pressure 139/96 H Blood Pressure Mean 110 Pulse Ox 100 Oxygen Delivery Method Room Air MDM <MARTINEZ Sánchez - Last Filed: 06/05/23 14:03> [facility] Narrative Medical decision making narrative: History gathered from: Patient and mom Patient has a left Bartholin's duct abscess. She appears well and nontoxic. Heart rate 115 with otherwise normal vital signs but she does not look septic or toxic. I successfully performed I&D. No Word catheter was available but I recommended sitz bath's and follow-up with [employer]. There is no sign of cellulitis or foreign years gangrene and no indication for antibiotics. She was given return precautions and discharged in stable condition. Procedure note: I cleansed the left Bartholin area with iodine. It was anesthetized with 1% lidocaine. I used a 11 blade scalpel to make a 1 cm incision explored with curved hemostats. Moderate amount of bloody purulent material was expressed. No word catheter is available. Patient tolerated procedure well without complication. <Dr. Douglas Alvarez, DO - Last Filed: 06/05/23 15:51> [facility] Treatment and Re-Evaluation :: I have personally performed a face to face assessment of the patient and have reviewed the TARYN Note. I performed a substantive portion of the visit including all aspects of the following. My sheppard findings include: History: Patient presents with a Bartholin abscess that became worse today. Patient states she has had similar episodes in the past. Patient denies any discharge or drainage. Patient denies any fevers or chills. Patient states her pain is worse with sitting. Patient denies any dysuria or hematuria. Exam: Vital signs are stable. Patient is afebrile. Patient is in no acute distress. Oral mucosa is pink and moist. Neck is supple. Trachea is midline. There is no JVD. Heart was regular rate and rhythm. Lungs are clear and equal bilaterally. Abdomen is soft. Bowel sounds are normal. There is no tenderness. There is no rebound or guarding noted. Cranial nerves II through XII are intact. There are no focal motor or sensory deficits noted. Medical Decision Making: Patient was given a dose of Toradol here. Incision and drainage was performed by TARYN under my supervision. Patient tolerated procedure well. Patient was instructed to use warm compresses and sitz bath's. Patient was instructed to follow-up with her primary care physician in 5 to 7 days. Patient understood and was agreeable with the plan. All questions were answered. Discharge Plan Triage Chief Complaint: Abscess ED Midlevel Provider: Meena Lyon ED Provider: Douglas Alvarez Dx/Rx/DC Orders Clinical Impression: Abscess of left Bartholin's gland Instructions: Bartholin Cyst and Abscess Prescriptions: No Action insulin aspart U-100 [Novolog FlexPen U-100 Insulin] 100 unit/mL (3 mL) insulin pen See Protocol SUBCUT TID PRN (Reason: Hyperglycemia) Protocol: 5. Sliding Scale Insulin High Dosing Condition: 150-209 mg/dl = 3 units Condition: 210-259 mg/dl = 6 units Condition: 260-324 mg/dl = 9 units Condition: 325-374 mg/dl = 12 units Condition: 375-409 mg/dl = 14 units Condition: 410-449 mg/dl = 16 units Condition: Greater than 449 call physician Protocol Text: - Use for Total Daily Dose of Insulin 81-120 units - Very insulin resistant or septic patients HIGH DOSING ALGORITHM Patient Comments: INJECT SUBCUTANEOUSLY PER SLIDING SCALE, MAX 40 UNITS PER DAY potassium chloride 10 mEq tablet extended release 20 meq PO BID Patient Comments: TAKE 2 TABLETS BY MOUTH IN THE MORNING AND 2 IN THE EVENING insulin aspart U-100 [Novolog FlexPen U-100 Insulin] 100 unit/mL (3 mL) insulin pen 15 unit subcut QHS insulin glargine-yfgn 100 unit/mL (3 mL) Insulin Pen 24 unit subcut BREAKFAST Primary Care Provider: Meena Flowers Referrals: Meena Flowers DO [Primary Care Provider] - Activity Restrictions/Additional Instructions: Do sitz baths three times a day. Follow up with OBGYN Disposition Disposition: Home, Self Care Discharge Date/Time: 06/05/23 14:21
[2023-06-05] MEDS: Ketorolac 15 MG/ML Vial IM (13:48)
[2023-06-05 14:18] VITALS: PULSE 72; RESP 14; TEMP 36.8
== END 2023-06-05 14:21 | disposition home or self-care (01) ==
LOC: ED 13:36
PROVIDERS: Emergency Provider Emergency Medicine; PCP Family Medicine; Visit Provider Emergency Medicine
DX: N75.1 Abscess of Bartholin's gland (principal); E10.22 Type 1 diabetes mellitus with diabetic chronic kidney disease; Z79.4 Long term (current) use of insulin; N18.31 Chronic kidney disease, stage 3a; F17.200 Nicotine dependence, unspecified, uncomplicated
CPT/HCPCS: 12001; 96372; 99283

== ENCOUNTER 2023-09-24 12:26 | Emergency (ER) | payer MEDICAID, SELFPAY ==
[2023-09-24 12:26] VITALS: BP 169/89; PULSE 79; RESP 16; TEMP 35.7; O2SAT 100; BMI 29.9
--- NOTE | 2023-09-24 12:34 | EKG12_ITS ---
Test Reason : HYPERGYCEMIA Blood Pressure : / mmHG Vent. Rate : 075 BPM Atrial Rate : 075 BPM P-R Int : 132 ms QRS Dur : 076 ms QT Int : 388 ms P-R-T Axes : 015 -01 -02 degrees QTc Int : 433 ms Normal sinus rhythm with sinus arrhythmia Low voltage QRS Borderline ECG Confirmed by CAMERON JENNINGS, EMILY ([id number]), publishing editor JUANJO COVARRUBIAS ([id number]) on 09/25/2023 7:58:51 AM Referred By: Confirmed By:EMILY BARNES MD
--- NOTE | 2023-09-24 12:35 | EDS_ITS ---
HPI History of Present Illness Chief Complaint: Hyperglycemia Informant: patient Onset/Context/Timing Onset: Days Narrative Narrative: Patient presents secondary to concerns for DKA. She has a history of type 1 svitlana betes on insulin. She states she has had increased stress last several days and she was struggling to keep her blood sugars in the high 300s. Today her meter read high and her urine ketone strip was high. She does report some slight palpitations. She states she had been having urinary frequency but today is not urinating as much and it is cloudy. She has no dysuria. [facility] Medical History (Updated 09/24/23 @ 14:[address] Risa Gatica MD) Diabetes mellitus type 1, uncontrolled, insulin dependent Stage 3a chronic kidney disease (CKD) Tobacco abuse Home Medications insulin aspart U-100 100 unit/mL (3 mL) subcutaneous pen (Novolog FlexPen U-100 Insulin aspart) See Protocol subcut TID PRN Hyperglycemia 02/02/22 [History Last Taken Unknown] insulin aspart U-100 100 unit/mL (3 mL) subcutaneous pen (Novolog FlexPen U-100 Insulin aspart) 15 unit subcut QHS HYPERGLYCEMIA 05/25/23 [History Last Taken Unknown] insulin glargine-yfgn 100 unit/mL (3 mL) subcutaneous pen 24 unit subcut BREAKFAST HYPERGLYCEMIA 05/25/23 [History Last Taken Unknown] potassium chloride 10 mEq tablet,extended release 20 meq PO BID HYPOKALEMIA 05/25/23 [History Last Taken Unknown] sulfamethoxazole 800 mg-trimethoprim 160 mg tablet (Bactrim DS) 1 tab PO BID #6 tabs 09/24/23 [Rx Last Taken Unknown] Allergy/AdvReac Type Severity Reaction Status Date / Time bee venom protein (honey bee) Allergy Anaphylaxis Verified 09/24/23 12:28 Family History Grandmother Diabetes Hypertension Heart disease Grandfather Diabetes Colon cancer Surgical History History of partial hysterectomy Hx of tonsillectomy Social History household members: children current occupational exposures/hazards: No Smoking Status: Light Smoker (<10/day) alcohol intake: current alcohol intake frequency: holidays/special occasions only substance use type: does not use ROS ROS ED Constitutional Constitutional ED: Denies chills or fever(s) Eyes Eyes: Denies discharge from eye(s) ENT ENT ED: Denies discharge from eye(s), rhinorrhea or sore throat Cardiovascular Cardiovascular: Reports palpitations; Denies chest pain Respiratory/Chest Respiratory/Chest: Denies cough or dyspnea Gastrointestinal Gastrointestinal: Denies abdominal pain, nausea or vomiting Genitourinary Genitourinary ED: Denies dysuria Musculoskeletal Musculoskeletal: Denies back pain or extremity pain Integumentary Denies Abrasions or rash Neurologic Neurologic: Denies headache(s) or weakness Psychiatric Psychiatric: Denies anxiety or depression Allergic/Immunologic Allergic/Immunologic ED: Denies lip swelling or urticaria EXAM Physical Exam Const Vital Signs: 09/24/23 12:26 09/24/23 12:57 09/24/23 13:39 Temperature 96.2 F L Temperature Source Temporal Pulse Rate 79 71 Respiratory Rate 16 23 H Respiratory Effort Normal Non-Labored Respiratory Pattern Normal Blood Pressure 169/89 H 129/83 H Blood Pressure Mean 115 98 Pulse Ox 100 97 Oxygen Delivery Method Room Air 09/24/23 14:00 Temperature Temperature Source Pulse Rate 71 Respiratory Rate 16 Respiratory Effort Respiratory Pattern Blood Pressure 123/85 H Blood Pressure Mean 97 Pulse Ox 97 Oxygen Delivery Method Room Air Positive well nourished and well developed General Appearance ED: well developed HEENT Reports dry mucous membranes Mouth ED: Yes dry mucous membranes Mouth: dry mucous membranes Eyes EOMs intact bilaterally Chest Wall inspection of chest normal and palpation of chest normal Resp normal respiratory effort and clear to auscultation bilaterally Cardio regular rate and regular rhythm GI non-tender Auscultation: hypoactive bowel sounds Palpation: soft Extremity normal to inspection Neuro oriented x3 and no sensory deficits noted Motor Exam: strength 5/5 throughout Psych mental status grossly normal Skin no rashes or lesions noted MDM MDM MDM Narrative Medical decision making narrative: IV line established. Patient placed on cardiac cath technician. Patient given IV fluids. Labwork obtained to evaluate for leukocytosis, anemia, and electrolyte derangement. EKG obtained to evaluate for cardiac arrhythmia/ischemia. Urinalysis obtained to evaluate for infection/hematuria. History & Record Review Discussion w/independent historian: Patient Lab Data Attestation: I reviewed the patient's lab results. Labs: Laboratory Results - last 24 hr 09/24/23 09/24/23 12:45 12:55 WBC 9.1 RBC 4.55 Hgb 13.3 Hct 40.5 MCV 89.0 MCH 29.2 MCHC 32.8 RDW Std Deviation 43.1 RDW Coeff of Bret 13.2 Plt Count 369 MPV 9.8 Immature Gran % (Auto) 0.400 Neut % (Auto) 78.6 H Lymph % (Auto) 14.7 L [place] % (Auto) 5.7 Eos % (Auto) 0.0 Baso % (Auto) 0.6 Absolute Neuts (auto) 7.1 Absolute Lymphs (auto) 1.34 Nucleated RBC % 0 Sodium 132 L Potassium 3.9 Chloride 100 Carbon Dioxide 21.0 Anion Gap 11 BUN 10 Creatinine 0.68 Estim Creat Clear Calc 106.73 Est GFR (MDRD) Af Amer 127 Est GFR (MDRD) Non-Af 105 BUN/Creatinine Ratio 14.6 Glucose 280 H Calcium 9.3 Troponin I High Sens 3 Urine Color Yellow Urine Clarity Sl. Cloudy Urine pH 6.0 Ur Specific [place] 1.010 Urine Protein 30 H Urine Glucose (UA) 1000 H Urine Ketones 150 A* Urine Occult Blood 10 H Urine Nitrite Positive H Urine Bilirubin Negative Urine Urobilinogen Normal Ur Leukocyte Esterase 100 H Urine RBC 0-5 SEEN Urine WBC 10-25 SEEN Ur Squamous Epith Cells 0-5 SEEN Urine Bacteria 1+ Urine Mucus 0 SEEN Acetone Level NEGATIVE POC Glucose 265 H EKG Initial EKG: Attestation: I personally reviewed and interpreted this EKG as follows: Interpretation: Sinus Rhythm (Sinus at 75 with no acute ischemia.) Treatment and Re-Evaluation :: CBC was a white count of 9.1 with a hemoglobin of 13.3. 78% neutrophils noted. Chemistry studies reveal a sodium of 132 with a glucose of 280. Corrected sodium is 135. Potassium is normal at 3.9. Renal function is unremarkable. Anion gap is normal at 11 and bicarb is normal at 21. Serum acetone is negative. Urinalysis reveals 150 ketones with 1000 glucose. He has 1+ bacteria in his urine with 10-25 white cells. Positive nitrites are noted. On repeat evaluation patient resting comfortably. She has had a liter of IV fluid. Patient be treated with 3 days of Bactrim DS for her UTI. She will increase fluids and watch her blood sugars closely. She is comfortable with the plan. Discharge Plan Triage Chief Complaint: Hyperglycemia ED Provider: Risa Gatica Dx/Rx/DC Orders Clinical Impression: UTI (urinary tract infection), Hyperglycemia Instructions: ED Diabetic Hyperglycemia, ED Cystitis Female Adult Prescriptions: New sulfamethoxazole-trimethoprim [Bactrim DS] 800-160 mg tablet 1 tab PO BID Qty: 6 0RF No Action insulin aspart U-100 [Novolog FlexPen U-100 Insulin] 100 unit/mL (3 mL) insulin pen See Protocol SUBCUT TID PRN (Reason: Hyperglycemia) Protocol: 5. Sliding Scale Insulin High Dosing Condition: 150-209 mg/dl = 3 units Condition: 210-259 mg/dl = 6 units Condition: 260-324 mg/dl = 9 units Condition: 325-374 mg/dl = 12 units Condition: 375-409 mg/dl = 14 units Condition: 410-449 mg/dl = 16 units Condition: Greater than 449 call physician Protocol Text: - Use for Total Daily Dose of Insulin 81-120 units - Very insulin resistant or septic patients HIGH DOSING ALGORITHM Patient Comments: INJECT SUBCUTANEOUSLY PER SLIDING SCALE, MAX 40 UNITS PER DAY potassium chloride 10 mEq tablet extended release 20 meq PO BID Patient Comments: TAKE 2 TABLETS BY MOUTH IN THE MORNING AND 2 IN THE EVENING insulin aspart U-100 [Novolog FlexPen U-100 Insulin] 100 unit/mL (3 mL) insulin pen 15 unit subcut QHS insulin glargine-yfgn 100 unit/mL (3 mL) Insulin Pen 24 unit subcut BREAKFAST Primary Care Provider: Meena Flowers Referrals: Meena Flowers DO [Primary Care Provider] - 1 Week if not improving Disposition Disposition: Home, Self Care
[2023-09-24] MEDS: 0.9% Normal Saline (1000mL) 1,000 ML 999 ML IV (12:45)
[2023-09-24 13:01] LABS: Mucous, Urine 0 SEEN /hpf (<or=2+)
[2023-09-24 13:02] LABS: Absolute Lymphocyte Count 1.34 X10^3/uL (0.83-4.51); Absolute Neutrophil Count 7.1 X10^3/uL (2.0-7.7); Basophil# 0.05 X10^3/uL; Basophil% 0.6 % (0-1); Hematocrit 40.5 % (37-47); Hemoglobin 13.3 g/dL (12.0-15.0); Lymphocyte # 1.34 X10^3/ul (0.83-4.51); Lymphocyte % 14.7 % (19-41); Mean Corp Hgb Conc 32.8 g/dL (32-36); Mean Corpuscular Hgb 29.2 pg (27.0-32.0); Mean Platelet Vol. 9.8 fl (6.2-12.0); Monocyte# 0.52 X10^3/uL; Monocyte% 5.7 % (0-10); NRBC Flagged by Analyzer 0 % (0-5); Neutrophil # 7.14 X10^3/uL (2.7-7.7); Neutrophil % 78.6 % (47-70); Platelet Count 369 K/mm3 (150-450); RBC Distribution Width CV 13.2 % (11.6-14.6); RBC Distribution Width SD 43.1 fl (35.1-43.9); Red Blood Count 4.55 M/mm3 (4.2-5.4); White Blood Count 9.1 K/mm3 (4.4-11.0)
[2023-09-24 13:03] LABS: Bedside Glucose 265 mg/dL (74-106)
[2023-09-24 13:17] LABS: Anion Gap 11 (5-15); BUN 10 mg/dL (7-18); BUN/Creat Ratio 14.6 RATIO (10-20); Calcium,Total 9.3 mg/dL (8.5-10.1); Chloride 100 mmol/L (98-107); Creatinine, Serum 0.68 mg/dL (0.55-1.02); EST Glomerular Filtration Rate 105 mL/min (>60); Est Glom Filt Rate - Afr Amer 127 mL/min (>60); Estimated Creatinine Clearance 106.73 ml/min; Glucose 280 mg/dL (74-106); Potassium 3.9 mmol/L (3.5-5.1); Sodium Level 132 mmol/L (136-145); Troponin-I HS 3 pg/mL (3.0-54.0)
[2023-09-24 13:23] LABS: Color, Urine Yellow (Yellow); Glucose, Dipstick 1000 mg/dl (Normal); Leukocyte Esterase-Dipstick 100 /ul (Negative); Nitrite-Dipstick Positive (Negative); Occult Blood-Urine 10 /ul (Negative); Protein-Dipstick 30 mg/dl (Negative); Urine Bilirubin Dipstick Negative (Negative); Urine Clarity Sl. Cloudy (Clear); Urine Urobilinogen Normal (Normal)
[2023-09-24 13:30] LABS: Ketone-Dipstick 150 mg/dl (Negative)
[2023-09-24 13:31] LABS: Bacteria 1+ /hpf (None Seen); Red Blood Cells-Urine 0-5 SEEN /hpf (0-5); Squamous Epithelial Cells - UA 0-5 SEEN /hpf (5-10); White Blood Cells 10-25 SEEN /hpf (0-5)
[2023-09-24 13:39] VITALS: BP 129/83; PULSE 71; RESP 23; O2SAT 97
[2023-09-24 14:00] VITALS: BP 123/85; PULSE 71; RESP 16; O2SAT 97
[2023-09-24] MEDS: Smz/Tmp Ds Tablet 1 TABLET PO (14:24)
[2023-09-24 14:26] VITALS: BP 123/85; PULSE 79; RESP 16; TEMP 36.1; O2SAT 99
== END 2023-09-24 14:28 | disposition home or self-care (01) ==
PROVIDERS: Emergency Provider Emergency Medicine; PCP Family Medicine; Visit Provider Emergency Medicine
DX: N39.0 Urinary tract infection, site not specified (principal); E10.22 Type 1 diabetes mellitus with diabetic chronic kidney disease; E10.65 Type 1 diabetes mellitus with hyperglycemia; Z79.4 Long term (current) use of insulin; N18.31 Chronic kidney disease, stage 3a; F17.200 Nicotine dependence, unspecified, uncomplicated
CPT/HCPCS: 80048; 81001; 82009; 82962; 84484; 85025; 93005; 96360; 96361; 99284; A4216

== ENCOUNTER 2024-04-04 08:30 | Inpatient (IN) | payer MEDICAID, SELFPAY ==
[2024-04-04] VITALS (17 sets, daily range): BP systolic 106–141; BP diastolic 72–109; PULSE 77–134; RESP 16–28; TEMP 36.2–37.2; O2SAT 98–100; BMI 26.8; BMI 27.4
--- NOTE | 2024-04-04 08:40 | EKG12_ITS ---
Test Reason : COUGH Blood Pressure : / mmHG Vent. Rate : 112 BPM Atrial Rate : 112 BPM P-R Int : 134 ms QRS Dur : 072 ms QT Int : 300 ms P-R-T Axes : 072 012 040 degrees QTc Int : 409 ms Sinus tachycardia Low voltage QRS Borderline ECG Confirmed by EMILY BARNES MD ([id number]), book editor JUANJO COVARRUBIAS ([id number]) on 04/07/2024 7:30:04 AM Referred By: Confirmed By:EMILY BARNES MD
--- NOTE | 2024-04-04 08:42 | EX.ED.DYSGE1 ---
HPI History of Present Illness Chief Complaint: Nausea/Vomiting Informant: patient Narrative Narrative: Patient woke up this morning couple hours ago nausea, vomiting, dyspnea, malaise, feels like she is in DKA. No cough. No chest discomfort. No abdominal pain. Urinating a lot this morning and yesterday, has been taking her insulins as usual, including her short and long-acting insulins which she last took this morning before coming here. Yesterday her blood sugars were in the 200s. No recent illness before symptoms started this morning that she knows of. [facility] Medical History Tobacco abuse Stage 3a chronic kidney disease (CKD) Diabetes mellitus type 1, uncontrolled, insulin dependent Home Medications ?Medication ?Instructions ?Recorded ?Last Taken ?Type insulin aspart U-100 100 unit/mL See Protocol subcut TID PRN 02/02/22 Unknown History (3 mL) subcutaneous pen (Novolog Hyperglycemia FlexPen U-100 Insulin aspart) potassium chloride 10 mEq 20 meq PO BID HYPOKALEMIA 05/25/23 Unknown History tablet,extended release insulin glargine 100 unit/mL (3 24 unit subcut BID 04/04/24 Unknown History mL) subcutaneous pen (Lantus Solostar U-100 Insulin) Allergy/AdvReac Type Severity Reaction Status Date / Time bee venom protein (honey bee) Allergy Anaphylaxis Verified 04/04/24 08:31 Family History Grandmother Diabetes Hypertension Heart disease Grandfather Diabetes Colon cancer Surgical History History of partial hysterectomy Hx of tonsillectomy Social History household members: children current occupational exposures/hazards: No Smoking Status: Light Smoker (<10/day) alcohol intake: current alcohol intake frequency: holidays/special occasions only substance use type: does not use ROS ROS ED Constitutional Constitutional ED: Reports fatigue; Denies chills or fever(s) Eyes Eyes: Denies change in vision or diplopia ENT ENT ED: Denies rhinorrhea or sore throat Cardiovascular Cardiovascular: Denies chest pain or palpitations Respiratory/Chest Respiratory/Chest: Reports dyspnea; Denies cough Gastrointestinal Gastrointestinal: Reports nausea and vomiting; Denies abdominal pain, diarrhea or hematemesis Genitourinary Genitourinary ED: Reports urinary frequency; Denies dysuria or hematuria Musculoskeletal Musculoskeletal: Denies back pain or neck pain Integumentary Denies abscess or rash Neurologic Neurologic: Denies headache(s), paresthesias or weakness Psychiatric Psychiatric: Denies suicidal thoughts Endocrine Endocrinology: Reports polydipsia and polyuria EXAM Physical Exam Const Vital Signs: 04/04/24 08:31 04/04/24 08:31 04/04/24 08:52 Temperature 99 F Temperature Source Temporal Pulse Rate 134 H 128 H Respiratory Rate 22 H 20 H Respiratory Effort Short of Breath Respiratory Depth Respiratory Pattern Normal Blood Pressure 138/104 H 139/109 H Blood Pressure Mean 115 119 Pulse Ox 99 99 Oxygen Delivery Method Room Air Room Air 04/04/24 08:52 Temperature Temperature Source Pulse Rate Respiratory Rate Respiratory Effort Short of Breath Respiratory Depth Normal Respiratory Pattern Normal Blood Pressure Blood Pressure Mean Pulse Ox Oxygen Delivery Method Room Air Positive well nourished and well developed General Appearance ED: well developed and NAD HEENT Reports moist mucous membranes normocephalic and atraumatic Eyes PERRL and EOMs intact bilaterally Neck full ROM and supple Resp normal respiratory effort and clear to auscultation bilaterally Resp Narrative: Tachypnea, no distress Cardio regular rate, regular rhythm and no murmurs Rate: tachycardic GI non-tender and non-distended Auscultation: normoactive bowel sounds Palpation: soft Back/Spine no CVA tenderness General Back: other FROM Extremity normal to inspection General Extremety ED: Negative for edema, pulses abnormal or tenderness General Extremity: Negative for edema or pulses abnormal Neuro oriented x3, CN's II-XII intact bilaterally and no sensory deficits noted Sensorium / Orientation: awake and alert Motor Exam: strength 5/5 throughout Psych mental status grossly normal Skin no rashes or lesions noted and no wounds MDM MDM MDM Narrative Medical decision making narrative: Blood sugar is 420 on quick check prior to getting blood. IV fluids and Zofran ordered along with a DKA workup. The Zofran helped. Initially her venous pH returns at 6.99 along with positive ketones in the urine, positive serum acetone, all consistent with DKA. Her labs returned later showing potassium is high at 6.4, she does not have any significant dangerous EKG changes of this, and at this point reasonable to start insulin drip which is ordered along with the other usual DKA orders. Her bicarb is 7, some going to give her some sodium bicarb - after discussing w/ hospitalist, we will just change her NS to LR for now. Urine does not appear to be infected. 1 view chest x-ray on my interpretation shows no acute pneumonia. Lab Data Attestation: I reviewed the patient's lab results. Labs: Laboratory Results - last 24 hr 04/04/24 04/04/24 04/04/24 08:37 09:40 09:50 WBC 28.0 H RBC 5.40 Hgb 15.3 H Hct 50.3 H MCV 93.1 MCH 28.3 MCHC 30.4 L RDW Std Deviation 45.0 H RDW Coeff of Bret 13.2 Plt Count 518 H MPV 10.3 Neut % (Auto) Not Reportable Sodium 127 L Potassium 6.4 H* Chloride 95 L Carbon Dioxide 7.0 L* Anion Gap 25 H BUN 11 Creatinine 1.13 H Estim Creat Clear Calc 60.29 Est GFR (MDRD) Af Amer 71 Est GFR (MDRD) Non-Af 58 L BUN/Creatinine Ratio 9.7 L Glucose 452 H* Calcium 9.8 Total Bilirubin 0.60 AST 15 ALT 17 Alkaline Phosphatase 122 H Total Protein 9.9 H Albumin 4.4 Globulin 5.5 H Albumin/Globulin Ratio 0.8 L Urine Color Yellow Urine Clarity Sl. Cloudy Urine pH 5.0 Ur Specific [place] 1.030 Urine Protein 30 H Urine Glucose (UA) 1000 H Urine Ketones 150 A* Urine Occult Blood 25 H Urine Nitrite Negative Urine Bilirubin Negative Urine Urobilinogen Normal Ur Leukocyte Esterase Negative Urine RBC 0 SEEN Urine WBC 0 SEEN Ur Squamous Epith Cells 0-5 SEEN Urine Bacteria 0 SEEN Urine Mucus 0 SEEN Urine Test Negative Acetone Level MODERATE H POC Glucose 420 H ABG Data ABG results: ABG 04/04/24 09:44 Specimen Type BETHANY Sample Site Not entered VBG pH 6.99 L* VBG pO2 45 H VBG HCO3 6 L VBG Total CO2 7 L VBG O2 Sat (Calc) 57 VBG Base Excess -26 L POC Mix VBG pCO2 Pt Tmp 24.1 L O2 Delivery Device Room Air Crit Call To/Read Back Yes Blood Gas Notified Whom everardo Blood Gas Notified Time 09:46:03 Radiography Diagnostic Testing: Clinical Impression(s) from Imaging Studies Chest X-Ray 04/04/24 09:50 IMPRESSION: Normal x-ray examination of the chest. Electronically Signed: Danny Cardoza MD at 10:15 EDT , Rhythm Strip Rhythm Strip: Sinus Tach Rate: 115 Ectopy: None EKG Initial EKG: Attestation: I personally reviewed and interpreted this EKG as follows: Interpretation: No Acute Injury Pattern and Sinus Tachycardia (otherwise nml EKG. nml intervals) Management Discussion w/another healthcare provider: Hospitalist Critical Care Time Critical Care Time: Yes Critical care time (excluding procedures): 30-74 minutes (36 min), Including time spent:, Discussing w/Patient &/or Family/Purse Seining Hand, Discussing w/Consultants, Arranging Admission or Transfer and Performing Direct Patient Care at Bedside Discharge Plan Dx/Rx/DC Orders Clinical Impression: DKA (diabetic ketoacidosis) Disposition Disposition: Acute Care [facility]
[2024-04-04 08:56] LABS: Bedside Glucose 420 mg/dL (74-106)
[2024-04-04] MEDS: Ondansetron 4 MG/2 ML Vial IV (09:47)
[2024-04-04] MEDS: 0.9% Normal Saline (1000mL) 1,000 ML 999 ML IV ×2 (09:47→10:44)
[2024-04-04 09:48] LABS: Blood Gas Specimen Type VEN; O2 Delivery Device Room Air; SITE Not entered; VBG BASE EXCESS -26 mmol/L (-1.0-3.5); VBG Bicarbonate 6 mmol/L (22-26); VBG PO2 45 mmHg (25-40); VBG SO2 57 % (50-70); VBG TCO2 7 mmol/L (23-33); VBG pCO2 24.1 mmHg (41-51); VBG pH 6.99 (7.32-7.42)
[2024-04-04 09:49] LABS: Hematocrit 50.3 % (37-47); Hemoglobin 15.3 g/dL (12.0-15.0); Mean Corp Hgb Conc 30.4 g/dL (32-36); Mean Corpuscular Hgb 28.3 pg (27.0-32.0); Mean Corpuscular Volume 93.1 fL (81-99); Mean Platelet Vol. 10.3 fl (6.2-12.0); POSITIVE DIFFERENTIAL YES; POSITIVE MORPHOLOGY YES; Platelet Count 518 K/mm3 (150-450); RBC Distribution Width CV 13.2 % (11.6-14.6)
--- NOTE | 2024-04-04 09:50 | RAD_ITS ---
STUDY: X-RAY CHEST REASON FOR EXAM: Female, 33 years old. Sob TECHNIQUE: Single AP portable view of the chest. COMPARISON: Comparison is made with prior study May 25, 2023. FINDINGS: EKG electrodes are seen. The lungs are clear and expanded. There is no demonstrated pleural abnormality. Normal size heart. Normal mediastinum and jared. Normal visualized pulmonary arteries. Normal visualized aortic arch and descending thoracic aorta. Normal visualized thoracic spine. Normal visualized ribs, clavicles, and shoulders. There is no demonstrated abnormality of the visualized soft tissue structures of the upper abdomen. RAD/Chest 1 View (Portable) IMPRESSION: Normal x-ray examination of the chest. Electronically Signed: Danny Cardoza MD at 10:15 EDT ,
[2024-04-04 09:55] LABS: Bacteria 0 SEEN /hpf (None Seen); Mucous, Urine 0 SEEN /hpf (<or=2+); Red Blood Cells-Urine 0 SEEN /hpf (0-5); White Blood Cells 0 SEEN /hpf (0-5)
[2024-04-04 10:00] LABS: Color, Urine Yellow (Yellow); Glucose, Dipstick 1000 mg/dl (Normal); Leukocyte Esterase-Dipstick Negative /ul (Negative); Nitrite-Dipstick Negative (Negative); Occult Blood-Urine 25 /ul (Negative); Protein-Dipstick 30 mg/dl (Negative); Urine Bilirubin Dipstick Negative (Negative); Urine Clarity Sl. Cloudy (Clear); Urine Urobilinogen Normal (Normal)
[2024-04-04 10:01] LABS: Ketone-Dipstick 150 mg/dl (Negative)
[2024-04-04 10:05] LABS: Squamous Epithelial Cells - UA 0-5 SEEN /hpf (5-10)
[2024-04-04 10:06] LABS: Internal QC Validated? YES +Cl - CLEAR BKGD; Pregnancy, Urine Negative Negative; Record Kit Lot#,Urine Preg HCG0000772476
[2024-04-04 10:20] LABS: ALB/GLOB Ratio 0.8 RATIO (0.9-2.4); AST(SGOT) 15 U/L (15-37); Alanine Aminotransfer ALT/SGPT 17 U/L (13-56); Albumin, Serum 4.4 g/dL (3.2-5.0); Alkaline Phosphatase 122 U/L (45-117); Anion Gap 25 (5-15); BUN 11 mg/dL (7-18); BUN/Creat Ratio 9.7 RATIO (10-20); Calcium,Total 9.8 mg/dL (8.5-10.1); Chloride 95 mmol/L (98-107); Creatinine, Serum 1.13 mg/dL (0.55-1.02); EST Glomerular Filtration Rate 58 mL/min (>60); Est Glom Filt Rate - Afr Amer 71 mL/min (>60); Estimated Creatinine Clearance 60.29 ml/min; Globulin 5.5 g/dL (2.2-4.2); Glucose 452 mg/dL (74-106); Potassium 6.4 mmol/L (3.5-5.1); Protein, Total 9.9 g/dL (6.4-8.2); Sodium Level 127 mmol/L (136-145)
[2024-04-04 10:43] LABS: Differential Indicated MANUAL DIFF
[2024-04-04] MEDS: Insulin Lispro 100 UNIT in 0.9% Normal Saline (100mL Bag) 99 ML 6.4 UNIT CONT INF (10:43)
[2024-04-04 11:45] LABS: Lymphocyte 3 % (19-41); Metamyelocyte 1 % (0-1); Monocyte 3 % (0-10); Neutrophil-Band 5 % (0-5); Neutrophil-Segmented 88 % (47-70); Total Cells Counted 100 (MANUAL DIFF)
[2024-04-04 11:46] LABS: Platelet Morphology LARGE; Toxic Granulation RARE
[2024-04-04 11:48] LABS: Platelet Estimate MOD INC (ADEQ)
[2024-04-04 11:50] LABS: Polychromasia RARE
[2024-04-04 11:52] LABS: Absolute Lymphocyte Count 0.84 X10^3/uL (0.83-4.51)
[2024-04-04] MEDS: Lactated Ringers 1,000 ML 999 ML IV ×2 (11:59→13:20)
[2024-04-04 12:21] LABS: Bedside Glucose 484 mg/dL (74-106)
[2024-04-04 12:21] LABS: Bedside Glucose 339 mg/dL (74-106)
[2024-04-04 13:33] LABS: Bedside Glucose 271 mg/dL (74-106)
[2024-04-04] MEDS: Dext 5%-0.45% NS 1,000 ML 150 ML IV (14:36)
[2024-04-04 14:56] LABS: Bedside Glucose 231 mg/dL (74-106)
[2024-04-04 15:07] LABS: Anion Gap 16 (5-15); BUN 7 mg/dL (7-18); BUN/Creat Ratio 8.8 RATIO (10-20); Calcium,Total 8.4 mg/dL (8.5-10.1); Chloride 109 mmol/L (98-107); EST Glomerular Filtration Rate 87 mL/min (>60); Est Glom Filt Rate - Afr Amer 106 mL/min (>60); Estimated Creatinine Clearance 86.07 ml/min; Glucose 248 mg/dL (74-106); Potassium 4.8 mmol/L (3.5-5.1); Sodium Level 133 mmol/L (136-145)
--- NOTE | 2024-04-04 15:26 | CASEMGMT ---
RN CM Assessment Face to Face with patient for initial transition planning/care coordination assessment. RN CM introduced self and role at [facility], pt voices understanding. Pt is A&Ox4 and is resting comfortably in bed and is calm. Care providers, pharmacy, and demographics verified. Admitting dx: DKA PCP: Meena Flowers Specialists: Denies. Pt states that she is aware of Dr. Kaiser (Endo) and plans to set up an appt Preferred Pharmacy: [facility] Insurance: [employer] Prescription Benefit: Yes LNOK: Genesis Cruz (Mom) Living Arrangements: Pt lives with her mom, dad, grandmother, and the pt 4 children (Ages 12, 9, 8, & 7) in a 2 story home with 3 steps to enter ADLs/IADLs: Ind Transportation: Self, parents DME: Glucometer. Continuous Blood glucose monitor. Insulin and sufficient supplies. Denies needs HHC/SNF: Denies history or needs Pt?s goal: Home Plan: Home no needs. Pt denies the need for any diabetic supplies. Pt denies the need for CCN/pt Link. Pt denies further needs from this RN CM and states that she feels safe returning home with her family once she is medically ready. Steff Overton RN, CM
[2024-04-04] MEDS: Sodium Bicarbonate 50 MEQ in Dextrose 5%-Water (1000mL Bag) 1,000 ML 100 MEQ IV (15:38)
[2024-04-04 15:59] LABS: Bedside Glucose 240 mg/dL (74-106)
[2024-04-04] MEDS: Mag Hydrox/Al Hydrox/Simeth 30 ML UDC 15 ML PO (16:13)
[2024-04-04 16:35] LABS: Bedside Glucose 243 mg/dL (74-106)
[2024-04-04 17:28] LABS: Bedside Glucose 235 mg/dL (74-106)
--- NOTE | 2024-04-04 17:53 | PCM.HP.STD ---
HPI - General General Date of Admission: 04/04/24 HPI Narrative BRETT BOBBY, is a 33 F who presents to the hospital with nausea vomiting and signs of DKA. She says that she has been in DKA before and this is what it felt like. She states that everything started this morning, she did not notice feeling unwell yesterday, she has not missed any insulin dosages and does not describe any dysuria or any other signs of infection that could possibly precipitate DKA. She was found to be significantly acidotic with a serum bicarb of 7 and a gap of 25 on admission. She was started on insulin drip and given several liters of fluid and transferred to the ICU. We did discover that her glucose monitor was about 200 off our glucose monitor so hers would say 200 and ours was a 406 so it is possible that she has been underdosing her insulin at home and that is what has precipitated this episode of DKA. [facility] Medical History Tobacco abuse Stage 3a chronic kidney disease (CKD) Diabetes mellitus type 1, uncontrolled, insulin dependent Home Medications ?Medication ?Instructions ?Recorded ?Last Taken ?Type insulin aspart U-100 100 unit/mL See Protocol subcut TID PRN 02/02/22 Unknown History (3 mL) subcutaneous pen (Novolog Hyperglycemia FlexPen U-100 Insulin aspart) potassium chloride 10 mEq 20 meq PO BID HYPOKALEMIA 05/25/23 Unknown History tablet,extended release insulin glargine 100 unit/mL (3 24 unit subcut BID 04/04/24 Unknown History mL) subcutaneous pen (Lantus Solostar U-100 Insulin) Allergy/AdvReac Type Severity Reaction Status Date / Time bee venom protein (honey bee) Allergy Anaphylaxis Verified 04/04/24 08:31 Family History Grandmother Diabetes Hypertension Heart disease Grandfather Diabetes Colon cancer Surgical History History of partial hysterectomy Hx of tonsillectomy Social History household members: children current occupational exposures/hazards: No Smoking Status: Light Smoker (<10/day) alcohol intake: current alcohol intake frequency: holidays/special occasions only substance use type: does not use ROS Constitutional Constitutional: Reports fatigue; Denies chills, fever(s) or malaise Eyes Eyes: Denies blurry vision ENT HEENT: Denies headache(s) or nasal discharge Cardiovascular Cardiovascular: Denies chest pain, dyspnea on exertion or syncope Respiratory/Chest Respiratory/Chest: Denies cough, shortness of breath at rest or shortness of breath with exertion Gastrointestinal Gastrointestinal: Reports nausea and vomiting; Denies constipation or diarrhea Genitourinary Genitourinary: Denies dysuria Neurologic Neurologic: Denies focal weakness, numbness or tremor(s) Psychiatric Psychiatric: Denies anxiety or depression Vital Signs Vital Signs Vital Signs: 04/04/24 08:31 04/04/24 08:31 04/04/24 08:52 Temperature 99 F Temperature Source Temporal Pulse Rate 134 H 128 H Respiratory Rate 22 H 20 H Respiratory Effort Short of Breath Respiratory Depth Respiratory Pattern Normal Blood Pressure 138/104 H 139/109 H Blood Pressure Mean 115 119 Blood Pressure Source Blood Pressure Position Blood Pressure Location Pulse Ox 99 99 Oxygen Delivery Method Room Air Room Air 04/04/24 08:52 04/04/24 10:51 04/04/24 12:01 Temperature Temperature Source Pulse Rate 114 H 119 H Respiratory Rate 22 H 26 H Respiratory Effort Short of Breath Respiratory Depth Normal Respiratory Pattern Normal Blood Pressure 128/75 H 137/82 H Blood Pressure Mean 92 100 Blood Pressure Source Blood Pressure Position Blood Pressure Location Pulse Ox 100 100 Oxygen Delivery Method Room Air Room Air 04/04/24 12:01 04/04/24 12:30 04/04/24 12:45 Temperature 98.8 F Temperature Source Pulse Rate 119 H 121 H 115 H Respiratory Rate 26 H 24 H 22 H Respiratory Effort Respiratory Depth Respiratory Pattern Blood Pressure 137/82 H 141/97 H 129/88 H Blood Pressure Mean 100 111 101 Blood Pressure Source Monitor Monitor Blood Pressure Position Semi-Fowlers Semi-Fowlers Blood Pressure Location Left Arm Left Arm Pulse Ox 100 100 100 Oxygen Delivery Method Room Air Room Air 04/04/24 13:00 04/04/24 13:30 04/04/24 13:31 Temperature Temperature Source Pulse Rate 110 H 96 Respiratory Rate 24 H 24 H Respiratory Effort Normal Non-Labored Respiratory Depth Normal Respiratory Pattern Normal Blood Pressure 123/88 H 132/87 H Blood Pressure Mean 99 102 Blood Pressure Source Monitor Monitor Blood Pressure Position Semi-Fowlers Semi-Fowlers Blood Pressure Location Left Arm Left Arm Pulse Ox 100 100 Oxygen Delivery Method Room Air Room Air Room Air 04/04/24 14:00 04/04/24 15:00 04/04/24 16:00 Temperature 97.1 F L 98.4 F Temperature Source Temporal Temporal Pulse Rate 120 H 104 H 115 H Respiratory Rate 25 H 28 H 20 H Respiratory Effort Respiratory Depth Respiratory Pattern Blood Pressure 137/101 H 123/80 H 124/81 H Blood Pressure Mean 113 94 95 Blood Pressure Source Monitor Monitor Monitor Blood Pressure Position Supine Semi-Fowlers Semi-Fowlers Blood Pressure Location Left Arm Left Arm Left Arm Pulse Ox 100 100 99 Oxygen Delivery Method Room Air Room Air Room Air 04/04/24 16:00 04/04/24 17:00 Temperature Temperature Source Pulse Rate 105 H Respiratory Rate 24 H Respiratory Effort Normal Non-Labored Respiratory Depth Respiratory Pattern Blood Pressure 118/75 Blood Pressure Mean 89 Blood Pressure Source Monitor Blood Pressure Position Semi-Fowlers Blood Pressure Location Left Arm Pulse Ox 99 Oxygen Delivery Method Room Air Room Air Weight Weight: 145 lb 3 oz Body Mass Index (BMI) 27.4 Physical Exam Narrative General: Alert, Oriented x3, Cooperative, No apparent distress HEENT: Atraumatic, PERRLA, EOMI, Normocephalic Oral: Dry mucosa Neck: Supple, No JVD Lungs: Clear to auscultation, Normal air movement, No rhonchi, No wheeze, No rales Cardiovascular: Tachycardic, Regular Rhythm, Normal S1, Normal S2, No murmurs Abdomen: Soft, Non Tender, Non-Distended, No Hepato-splenomegaly Extremities: No edema, Capillary Refill Less than 3 Seconds Skin: No rashes, No breakdown Musculoskeletal: No Tenderness to Palpation of Joints or Extremities Neurological: No focal neurological deficits, Motor Exam 5/5 strength throughout, Sensory exam intact to light touch and pain Psych/Mental Status: Normal Affect, Appropriate Results Lab / Micro Data 04/04/24 09:40 04/04/24 14:34 Labs: Laboratory Results - last 24 hr 04/04/24 08:37: POC Glucose 420 H 04/04/24 09:40: WBC 28.0 H, RBC 5.40, Hgb 15.3 H, Hct 50.3 H, MCV 93.1, MCH 28.3, MCHC 30.4 L, RDW Std Deviation 45.0 H, RDW Coeff of Bret 13.2, Plt Count 518 H, MPV 10.3, Neut % (Auto) Not Reportable, Absolute Neuts (auto) 26.0 H, Absolute Lymphs (auto) 0.84, Total Counted 100, Neutrophils % (Manual) 88 H, Band Neutrophils % 5, Lymphocytes % (Manual) 3 L, Monocytes % (Manual) 3, Metamyelocytes % 1, Diff Path Review May foll, Toxic Granulation RARE, Platelet Estimate MOD INC, Plt Morphology Comment LARGE, Polychromasia RARE, Sodium 127 L, Potassium 6.4 H*, Chloride 95 L, Carbon Dioxide 7.0 L*, Anion Gap 25 H, BUN 11, Creatinine 1.13 H, Estim Creat Clear Calc 60.29, Est GFR (MDRD) Af Amer 71, Est GFR (MDRD) Non-Af 58 L, BUN/Creatinine Ratio 9.7 L, Glucose 452 H*, Calcium 9.8, Total Bilirubin 0.60, AST 15, ALT 17, Alkaline Phosphatase 122 H, Total Protein 9.9 H, Albumin 4.4, Globulin 5.5 H, Albumin/Globulin Ratio 0.8 L, Acetone Level MODERATE H 04/04/24 09:50: Urine Color Yellow, Urine Clarity Sl. Cloudy, Urine pH 5.0, Ur Specific [place] 1.030, Urine Protein 30 H, Urine Glucose (UA) 1000 H, Urine Ketones 150 A*, Urine Occult Blood 25 H, Urine Nitrite Negative, Urine Bilirubin Negative, Urine Urobilinogen Normal, Ur Leukocyte Esterase Negative, Urine RBC 0 SEEN, Urine WBC 0 SEEN, Ur Squamous Epith Cells 0-5 SEEN, Urine Bacteria 0 SEEN, Urine Mucus 0 SEEN, Urine Test Negative 04/04/24 10:42: POC Glucose 484 H* 04/04/24 11:56: POC Glucose 339 H 04/04/24 13:03: POC Glucose 271 H 04/04/24 14:09: POC Glucose 231 H 04/04/24 14:34: Sodium 133 L, Potassium 4.8, Chloride 109 H, Carbon Dioxide 8.0 L*, Anion Gap 16 H, BUN 7, Creatinine 0.80, Estim Creat Clear Calc 86.07, Est GFR (MDRD) Af Amer 106, Est GFR (MDRD) Non-Af 87, BUN/Creatinine Ratio 8.8 L, Glucose 248 H, Calcium 8.4 L 04/04/24 15:07: POC Glucose 240 H 04/04/24 16:11: POC Glucose 243 H 04/04/24 17:08: POC Glucose 235 H ABG Data ABG results: ABG 04/04/24 09:44 Specimen Type BETHANY Sample Site Not entered VBG pH 6.99 L* VBG pO2 45 H VBG HCO3 6 L VBG Total CO2 7 L VBG O2 Sat (Calc) 57 VBG Base Excess -26 L POC Mix VBG pCO2 Pt Tmp 24.1 L O2 Delivery Device Room Air Crit Call To/Read Back Yes Blood Gas Notified Whom everardo Blood Gas Notified Time 09:46:03 Rhythm Strip Rhythm Strip: Sinus Tach Rate: 115 Ectopy: None Imaging Radiology Impression Chest X-Ray 04/04/24 09:50 IMPRESSION: Normal x-ray examination of the chest. Electronically Signed: Danny Cardoza MD at 10:15 EDT , Assessment & Plan Assessment/Plan (1) DKA (diabetic ketoacidosis): PLAN: Plan 1. DKA in the setting of type 1 diabetes ? Continue with the DKA protocol, VBG pH this morning is 6.99 ? She is on a bicarb drip at 100 because of her acidosis ? Continue with n.p.o. ? Continue with the insulin drip ? Continue to monitor potassium and have RN replace per protocol ? We discussed her faulty monitor and the need to follow-up and verify that any new monitor she uses is more accurate ? No signs of infection at this time we will continue to monitor I do believe that her leukocytosis is reactive to her DKA DVT: Lovenox 75 minutes was spent on direct patient care, including documentation as well as chart review and collaboration with colleagues Charges/Coding Visit Charges Inpatient E&M: 79495 Init Hosp L3
[2024-04-04 18:34] LABS: Bedside Glucose 230 mg/dL (74-106)
[2024-04-04 19:04] LABS: Anion Gap 11 (5-15); BUN 6 mg/dL (7-18); BUN/Creat Ratio 7.3 RATIO (10-20); Calcium,Total 8.6 mg/dL (8.5-10.1); Chloride 109 mmol/L (98-107); Creatinine, Serum 0.83 mg/dL (0.55-1.02); EST Glomerular Filtration Rate 84 mL/min (>60); Est Glom Filt Rate - Afr Amer 101 mL/min (>60); Estimated Creatinine Clearance 82.96 ml/min; Glucose 237 mg/dL (74-106); Potassium 4.1 mmol/L (3.5-5.1); Sodium Level 132 mmol/L (136-145)
[2024-04-04 20:13] LABS: Bedside Glucose 194 mg/dL (74-106)
[2024-04-04 22:43] LABS: Bedside Glucose 162 mg/dL (74-106)
[2024-04-04 22:46] LABS: Anion Gap 8 (5-15); BUN 6 mg/dL (7-18); BUN/Creat Ratio 8.5 RATIO (10-20); Calcium,Total 8.5 mg/dL (8.5-10.1); Chloride 110 mmol/L (98-107); EST Glomerular Filtration Rate 101 mL/min (>60); Est Glom Filt Rate - Afr Amer 122 mL/min (>60); Estimated Creatinine Clearance 98.36 ml/min; Glucose 163 mg/dL (74-106); Potassium 3.6 mmol/L (3.5-5.1); Sodium Level 134 mmol/L (136-145)
[2024-04-04] MEDS: 0.9% Normal Saline (250mL Bag) 250 ML 15 ML IV (23:30)
[2024-04-04] MEDS: Potassium Chloride 10mEq/100mL 10 MEQ/100 ML IV.SOLN. 100 MEQ IV BOLUS (23:30)
[2024-04-05] VITALS (14 sets, daily range): BP systolic 105–124; BP diastolic 71–90; PULSE 66–109; RESP 12–26; TEMP 35.9–36.8; O2SAT 97–100; BMI 27.6
[2024-04-05] MEDS: Insulin Glargine-YFGN 100 UNIT/ML Pen 24 UNIT SC ×2 (00:14→09:07)
[2024-04-05 00:35] LABS: Bedside Glucose 97 mg/dL (74-106)
[2024-04-05] MEDS: Sodium Bicarbonate 50 MEQ in Dextrose 5%-Water (1000mL Bag) 1,000 ML 100 MEQ IV (01:38)
[2024-04-05] MEDS: Potassium Chloride Oral Tablet 20 MEQ 40 MEQ PO (01:38)
[2024-04-05 06:12] LABS: Absolute Lymphocyte Count 1.84 X10^3/uL (0.83-4.51); Absolute Neutrophil Count 11.1 X10^3/uL (2.0-7.7); Basophil# 0.06 X10^3/uL; Basophil% 0.4 % (0-1); Eosinophil# 0.08 X10^3/uL; Eosinophils% 0.6 % (0-5); Hematocrit 38.9 % (37-47); Hemoglobin 12.6 g/dL (12.0-15.0); Lymphocyte # 1.84 X10^3/ul (0.83-4.51); Mean Corp Hgb Conc 32.4 g/dL (32-36); Mean Corpuscular Hgb 28.5 pg (27.0-32.0); Mean Platelet Vol. 9.4 fl (6.2-12.0); Monocyte# 0.86 X10^3/uL; Monocyte% 6.1 % (0-10); NRBC Flagged by Analyzer 0 % (0-5); Neutrophil # 11.08 X10^3/uL (2.7-7.7); Platelet Count 379 K/mm3 (150-450); RBC Distribution Width CV 13.2 % (11.6-14.6); RBC Distribution Width SD 42.5 fl (35.1-43.9); Red Blood Count 4.42 M/mm3 (4.2-5.4)
[2024-04-05 06:24] LABS: Lymphocyte % 13.1 % (19-41); Neutrophil % 79.2 % (47-70)
[2024-04-05 06:26] LABS: Anion Gap 11 (5-15); BUN 5 mg/dL (7-18); BUN/Creat Ratio 8.4 RATIO (10-20); Calcium,Total 8.7 mg/dL (8.5-10.1); Chloride 109 mmol/L (98-107); EST Glomerular Filtration Rate 122 mL/min (>60); Est Glom Filt Rate - Afr Amer 147 mL/min (>60); Estimated Creatinine Clearance 115.29 ml/min; Glucose 200 mg/dL (74-106); Potassium 4.2 mmol/L (3.5-5.1); Sodium Level 135 mmol/L (136-145)
[2024-04-05] MEDS: Enoxaparin 40 MG/0.4 ML Syringe SC (09:08)
[2024-04-05] MEDS: Insulin Lispro 100 UNIT/ML INSULN.PEN SC ×2 (09:08→11:27)
[2024-04-05 09:13] LABS: Bedside Glucose 202 mg/dL (74-106)
[2024-04-05 11:26] LABS: Anion Gap 12 (5-15); BUN 7 mg/dL (7-18); BUN/Creat Ratio 10.1 RATIO (10-20); Calcium,Total 8.5 mg/dL (8.5-10.1); Chloride 106 mmol/L (98-107); Creatinine, Serum 0.69 mg/dL (0.55-1.02); EST Glomerular Filtration Rate 103 mL/min (>60); Est Glom Filt Rate - Afr Amer 125 mL/min (>60); Estimated Creatinine Clearance 100.26 ml/min; Glucose 341 mg/dL (74-106); Potassium 4.8 mmol/L (3.5-5.1); Sodium Level 132 mmol/L (136-145)
[2024-04-05 12:31] LABS: Bedside Glucose 324 mg/dL (74-106)
--- NOTE | 2024-04-05 13:33 | DCINST_ITS ---
Discharge Instructions Diet Discharge Diet: - (Resume previous home diet) Activity Discharge Activity: Return to Normal Activity Weight Bearing Status: Full weight bearing Follow Up Care Test Results: Test results from this visit will be discussed in further detail at your follow- up appointment, if applicable. Discharge Plan Admission Admit Date/Time: 04/04/24 11:03 Primary Reason for Your Visit: DKA Attending Provider: Michael Acosta Primary Care Provider: Meena Flowers Consulting Providers: Bryce Julien Discharge Orders/Prescriptions Prescriptions: New insulin glargine-yfgn 100 unit/mL (3 mL) Insulin Pen 30 unit subcut BID Qty: 0 0RF Continued insulin aspart U-100 [Novolog FlexPen U-100 Insulin] 100 unit/mL (3 mL) insulin pen See Protocol SUBCUT TID PRN (Reason: Hyperglycemia) Protocol: 6. Sliding Scale Insulin Custom Condition: mg/dl range Dose/Route: Number of Units Condition: 150-199 Dose/Route: 2 Condition: 200-250 Dose/Route: 4 Condition: 251-300 Dose/Route: 6 Condition: 301-349 Dose/Route: 8 Condition: 350-399 Dose/Route: 10 Condition: 400+ Dose/Route: 12 Protocol Text: Custom Sliding Scale potassium chloride 10 mEq tablet extended release 20 meq PO BID Discontinued insulin glargine [Lantus Solostar U-100 Insulin] 100 unit/mL (3 mL) insulin pen 24 unit subcut BID Referrals / Follow Up: Meena Flowers DO [Primary Care Provider] - Within 2 Weeks Disposition Disposition (needs filled in before D/C Order can be placed): Home, Self Care
--- NOTE | 2024-04-05 13:39 | DS.PCM_ITS ---
Providers Date of Admission: 04/04/24 Date of Discharge: 04/05/24 Primary Care Physician: Dr. Meena Flowers DO Reason For Visit: DKA Diagnosis Discharge Diagnosis (1) DKA (diabetic ketoacidosis): Status: Acute Code(s): E11.10 - Type 2 diabetes mellitus with ketoacidosis without coma Plan 1. Diabetic ketoacidosis secondary to uncontrolled type 1 diabetes #2 hyponatremia secondary to nausea and vomiting #3 hyperkalemia secondary to diabetic ketoacidosis #4 dehydration #5 type 1 diabetes Medications at Discharge Home Medications insulin aspart U-100 100 unit/mL (3 mL) subcutaneous pen (Novolog FlexPen U-100 Insulin aspart) See Protocol subcut TID PRN Hyperglycemia 02/02/22 potassium chloride 10 mEq tablet,extended release 20 meq PO BID HYPOKALEMIA 05/25/23 insulin glargine-yfgn 100 unit/mL (3 mL) subcutaneous pen 30 unit (0.3 mL) subcut BID #0 mL 04/05/24 Hospital Course Operations None Procedures None Summary of Care Provided Minutes Spent on Discharge: 31 Hospital Course: This 33-year-old white female was seen in the emergency room at [facility] with a chief complaint of nausea, vomiting, malaise, and possible diabetic ketoacidosis. Patient has been in diabetic ketoacidosis before. Workup in the emergency room revealed an elevated white blood cell count of 28,000, sodium was 127, potassium was 6.4, bicarb was 7, creatinine was slightly elevated at 1.13. Glucose was 452. It was noted that the patient's home monitor was inaccurate by approximately 200 points so her blood sugar had been elevated for quite some time in all probability. Patient was admitted to ICU, she was placed on insulin drip and given IV fluids as well as a bicarb drip. The following day, insulin drip was able to be stopped, the bicarb drip was also stopped and the patient was transitioned over to her home insulin dose. Bicarb remains slightly low but the patient was asymptomatic and I felt that the patient was stable for discharge. On 04/05/2024, patient was seen and examined: On examination she appeared in good health and spirits, she does not appear to be in any distress. Vital signs as documented. Skin warm and dry and without overt rashes. Neck without JVD, thyroid appears normal, trachea is midline, neck is supple. Lungs clear, normal air movement was noted. Heart exam notable for regular rhythm, normal sounds and absence of murmurs, rubs or gallops. Abdomen unremarkable and without evidence of organomegaly, masses, or abdominal aortic enlargement, bowel sounds are present in all 4 quadrants, no abdominal tenderness was noted. Extremities nonedematous, no cyanosis was noted, no clubbing was noted. Neuro: Cranial nerves II through XII are grossly intact, no focal motor deficits were noted, sensation to light touch and pinprick is intact, motor exam 5/5 throughout. Psych: Patient is alert and oriented x3, she does not appear anxious or depressed, she does not appear agitated. Patient was discharged home in stable condition on 04/05/2024, adjustments in her basal insulin was made, patient had a different monitoring device at home that she was able to use and her monitor device that was inaccurate was discarded. Weight / BMI Weight Weight: 66.5 kg Body Mass Index (BMI) 27.6 ABG / Lab / Microbiology Data 04/05/24 06:03 04/05/24 11:00 Laboratory: Laboratory Results - last 24 hr 04/04/24 14:09: POC Glucose 231 H 04/04/24 14:34: Sodium 133 L, Potassium 4.8, Chloride 109 H, Carbon Dioxide 8.0 L*, Anion Gap 16 H, BUN 7, Creatinine 0.80, Estim Creat Clear Calc 86.07, Est GFR (MDRD) Af Amer 106, Est GFR (MDRD) Non-Af 87, BUN/Creatinine Ratio 8.8 L, G lucose 248 H, Calcium 8.4 L 04/04/24 15:07: POC Glucose 240 H 04/04/24 16:11: POC Glucose 243 H 04/04/24 17:08: POC Glucose 235 H 04/04/24 18:17: POC Glucose 230 H 04/04/24 18:31: Sodium 132 L, Potassium 4.1, Chloride 109 H, Carbon Dioxide 13.0 L, Anion Gap 11, BUN 6 L, Creatinine 0.83, Estim Creat Clear Calc 82.96, Est GFR (MDRD) Af Amer 101, Est GFR (MDRD) Non-Af 84, BUN/Creatinine Ratio 7.3 L, G lucose 237 H, Calcium 8.6 04/04/24 19:53: POC Glucose 194 H 04/04/24 22:14: POC Glucose 162 H 04/04/24 22:30: Sodium 134 L, Potassium 3.6, Chloride 110 H, Carbon Dioxide 16.0 L, Anion Gap 8, BUN 6 L, Creatinine 0.70, Estim Creat Clear Calc 98.36, Est GFR (MDRD) Af Amer 122, Est GFR (MDRD) Non-Af 101, BUN/Creatinine Ratio 8.5 L, G lucose 163 H, Calcium 8.5 04/04/24 23:15: Acetone Level NEGATIVE 04/05/24 00:11: POC Glucose 97 04/05/24 06:03: WBC 14.0 H, RBC 4.42, Hgb 12.6, Hct 38.9, MCV 88.0 D, MCH 28.5, MCHC 32.4 D, RDW Std Deviation 42.5, RDW Coeff of Bret 13.2, Plt Count 379, MPV 9.4, Immature Gran % (Auto) 0.600, Neut % (Auto) 79.2 H, Lymph % (Auto) 13.1 L, Nash % (Auto) 6.1, Eos % (Auto) 0.6, Baso % (Auto) 0.4, Absolute Neuts (auto) 11.1 H, Absolute Lymphs (auto) 1.84, Nucleated RBC % 0, Sodium 135 L, Potassium 4.2, Chloride 109 H, Carbon Dioxide 15.0 L, Anion Gap 11, BUN 5 L, Creatinine 0.60, Estim Creat Clear Calc 115.29, Est GFR (MDRD) Af Amer 147, Est GFR (MDRD) Non-Af 122, BUN/Creatinine Ratio 8.4 L, Glucose 200 H, Calcium 8.7 04/05/24 08:54: POC Glucose 202 H 04/05/24 11:00: Sodium 132 L, Potassium 4.8, Chloride 106, Carbon Dioxide 14.0 L , Anion Gap 12, BUN 7, Creatinine 0.69, Estim Creat Clear Calc 100.26, Est GFR (MDRD) Af Amer 125, Est GFR (MDRD) Non-Af 103, BUN/Creatinine Ratio 10.1, G lucose 341 H, Calcium 8.5 04/05/24 11:26: POC Glucose 324 H D/C Instructions Discharge Diet: - (Resume previous home diet) Weight Bearing Status: Full weight bearing Meaningful Use Info Meaningful Use Meaningful Use Diagnoses (Choose all that apply): None applicable Ischemic Stroke Statin Dosing Therapy Reference: STATIN DOSE THERAPY REFERENCE: * Patients > 75 years receive moderate or high dose statin therapy. * Patients 75 years or YOUNGER should receive HIGH intensity statin dose unless contraindicated. You will be required to document reason for non-treatment if statin daily dose does not meet guidelines. HIGH DOSE STATIN THERAPY DAILY Atorvastatin > than or = to 40 mg Rosuvastatin > than or = to 20 mg Amlodipine + Atorvastatin > than or = to 2.5/40 mg Ezetimibe + Simvastatin 10/80 mg Simvastatin 80mg Discharge Plan Admission Admit Date/Time: 04/04/24 11:03 Primary Reason for Your Visit: DKA Attending Provider: Michael Acosta Primary Care Provider: Meena Flowers Consulting Providers: Bryce Julien Discharge Orders/Prescriptions Prescriptions: New insulin glargine-yfgn 100 unit/mL (3 mL) Insulin Pen 30 unit subcut BID Qty: 0 0RF Continued insulin aspart U-100 [Novolog FlexPen U-100 Insulin] 100 unit/mL (3 mL) insulin pen See Protocol SUBCUT TID PRN (Reason: Hyperglycemia) Protocol: 6. Sliding Scale Insulin Custom Condition: mg/dl range Dose/Route: Number of Units Condition: 150-199 Dose/Route: 2 Condition: 200-250 Dose/Route: 4 Condition: 251-300 Dose/Route: 6 Condition: 301-349 Dose/Route: 8 Condition: 350-399 Dose/Route: 10 Condition: 400+ Dose/Route: 12 Protocol Text: Custom Sliding Scale potassium chloride 10 mEq tablet extended release 20 meq PO BID Discontinued insulin glargine [Lantus Solostar U-100 Insulin] 100 unit/mL (3 mL) insulin pen 24 unit subcut BID Referrals / Follow Up: Meena Flowers DO [Primary Care Provider] - Within 2 Weeks Disposition Disposition (needs filled in before D/C Order can be placed): Home, Self Care Charges/Coding Visit Charges Inpatient E&M: 30988 Disch Hosp >30min
[2024-04-07 12:57] LABS: Pathologist Review Reviewed
== END 2024-04-05 14:15 | disposition home or self-care (01) | DRG 420 ==
LOC: ED 10:24 → ICU 11:13
PROVIDERS: Internal Medicine; Admitting Provider Family Medicine; Emergency Provider Emergency Medicine; PCP Family Medicine; Visit Provider Internal Medicine
DX: E10.10 Type 1 diabetes mellitus with ketoacidosis without coma (principal); E87.1 Hypo-osmolality and hyponatremia; E10.22 Type 1 diabetes mellitus with diabetic chronic kidney disease; N18.31 Chronic kidney disease, stage 3a; E87.5 Hyperkalemia; F17.200 Nicotine dependence, unspecified, uncomplicated; Z79.4 Long term (current) use of insulin
CPT/HCPCS: 36415; 71045; 80048; 80053; 81001; 81025; 82009; 82803; 82962; 85025; 93005; 99285; J7030; J7050; J7120; A4216; J2405; J7799

== ENCOUNTER 2024-09-26 09:27 | Inpatient (IN) | payer MEDICAID, SELFPAY ==
[2024-09-26] VITALS (13 sets, daily range): BP systolic 116–152; BP diastolic 70–91; PULSE 96–130; RESP 16–26; TEMP 35.6–36.7; O2SAT 98–100; BMI 28.5; BMI 28.6
--- NOTE | 2024-09-26 09:36 | EKG12_ITS ---
Test Reason : Blood Pressure : */* mmHG Vent. Rate : 112 BPM Atrial Rate : 112 BPM P-R Int : 136 ms QRS Dur : 74 ms QT Int : 292 ms P-R-T Axes : 66 9 -12 degrees QTcB Int : 398 ms Sinus tachycardia Low voltage QRS Nonspecific T wave abnormality Abnormal ECG When compared with ECG of 04-Apr-2024 08:54, Nonspecific T wave abnormality now evident in Inferior leads Nonspecific T wave abnormality, worse in Anterolateral leads Confirmed by CAMERON JENNINGS, EMILY ([id number]), managing editor SABRINA MCCLELLAN ([id number]) on 09/29/2024 9:48:24 AM Referred By: Confirmed By: EMILY BARNES MD
--- NOTE | 2024-09-26 09:38 | EX.ED.DYSGE1 ---
HPI History of Present Illness Chief Complaint: Hyperglycemia Informant: patient Narrative Narrative: 33-year-old type I diabetic who injects around insulin and woke up at about 3:30 AM vomiting then feeling short of breath and feels like she may be in DKA. Has not used insulin this morning since she has not been able to eat anything. She states she seemed to be fine last night when she went to bed and has been using her insulin like normal. She states several days ago she had a recurrent Bartholin cyst/abscess that she was able to get to drain on her own and now she states it is completely resolved, but she has had no other symptoms of an illness recently. She states her Bartholin cyst/abscess is not sore anymore and is back to normal and feels fine. PFSH PFS Medical History Tobacco abuse Stage 3a chronic kidney disease (CKD) Diabetes mellitus type 1, uncontrolled, insulin dependent Home Medications ?Medication ?Instructions ?Recorded ?Last Taken ?Type insulin aspart U-100 100 unit/mL See Protocol subcut TID PRN 02/02/22 Unknown History (3 mL) subcutaneous pen (Novolog Hyperglycemia FlexPen U-100 Insulin aspart) insulin glargine-yfgn 100 unit/mL 30 unit (0.3 mL) subcut BID 04/05/24 Unknown Rx (3 mL) subcutaneous pen diabete #0 mL Allergy/AdvReac Type Severity Reaction Status Date / Time bee venom protein (honey bee) Allergy Anaphylaxis Verified 09/26/24 10:07 Family History Grandmother Diabetes Hypertension Heart disease Grandfather Diabetes Colon cancer Surgical History Hx of tonsillectomy History of partial hysterectomy Social History household members: children current occupational exposures/hazards: No Smoking Status: Light Smoker (<10/day) alcohol intake: current alcohol intake frequency: holidays/special occasions only substance use type: does not use ROS ROS ED Constitutional Constitutional ED: Reports fatigue; Denies chills or fever(s) Eyes Eyes: Denies change in vision or diplopia ENT ENT ED: Denies rhinorrhea or sore throat Cardiovascular Cardiovascular: Reports racing heartbeat; Denies chest pain Respiratory/Chest Respiratory/Chest: Reports dyspnea; Denies cough Gastrointestinal Gastrointestinal: Reports nausea and vomiting; Denies abdominal pain or diarrhea Genitourinary Genitourinary ED: Denies dysuria or hematuria Musculoskeletal Musculoskeletal: Denies back pain or neck pain Integumentary Denies abscess or rash Neurologic Neurologic: Denies headache(s), paresthesias or weakness Psychiatric Psychiatric: Denies anxiety or suicidal thoughts EXAM Physical Exam Const Vital Signs: 09/26/24 09:28 09/26/24 09:29 09/26/24 10:07 Temperature 96.1 F L 98.0 F Temperature Source Temporal Oral Pulse Rate 130 H 121 H Respiratory Rate 20 H 16 Respiratory Effort Normal Respiratory Pattern Normal Blood Pressure 132/91 H 116/78 Blood Pressure Mean 104 90 Pulse Ox 98 98 Oxygen Delivery Method Room Air Room Air Positive well nourished and well developed General Appearance ED: well developed and NAD HEENT Reports moist mucous membranes normocephalic and atraumatic Eyes PERRL and EOMs intact bilaterally Neck full ROM and supple Resp normal respiratory effort and clear to auscultation bilaterally Resp Narrative: Tachypneic without distress Cardio regular rate, regular rhythm and no murmurs Rate: tachycardic GI non-tender and non-distended Auscultation: normoactive bowel sounds Palpation: soft Back/Spine no CVA tenderness General Back: other FROM Extremity normal to inspection General Extremety ED: Negative for edema, pulses abnormal or tenderness General Extremity: Negative for edema or pulses abnormal Neuro oriented x3, CN's II-XII intact bilaterally and no sensory deficits noted Sensorium / Orientation: awake and alert Motor Exam: strength 5/5 throughout Psych mental status grossly normal Skin no rashes or lesions noted and no wounds MDM MDM MDM Narrative Medical decision making narrative: Started with given the patient liter of IV fluids along with Zofran until we were able to see her potassium level. Her EKG shows sinus tachycardia, I do not see any obvious U waves, nor sign of an injury. Initial blood sugar 341. VBG shows a pH of 7.055, and a pCO2 of 19, all consistent with acute metabolic acidosis, which in his case likely is DKA. The next test is her urine which shows ketones but otherwise negative for infection, her 1 view chest x-ray is normal showing no pneumonia on my interpretation. I took a while for her chemistries trickled back for unknown reasons, but eventually will start her on an insulin drip and handed her over to hospitalist service for ICU admission. Lab Data Attestation: I reviewed the patient's lab results. Labs: Laboratory Results - last 24 hr 09/26/24 09/26/24 09/26/24 09:56 09:56 09:56 WBC 14.5 H RBC 4.81 Hgb 14.2 Hct 45.9 MCV 95.4 MCH 29.5 MCHC 30.9 L RDW Std Deviation 57.2 H RDW Coeff of Bret 16.1 H Plt Count 464 H MPV 9.5 Immature Gran % (Auto) 0.500 Neut % (Auto) 68.9 Lymph % (Auto) 13.3 L [place] % (Auto) 4.4 Eos % (Auto) 12.0 H Baso % (Auto) 0.9 Absolute Neuts (auto) 10.0 H Absolute Lymphs (auto) 1.92 Nucleated RBC % 0 Platelet Estimate SLT INC Sodium 134 Cancelled Potassium 4.7 Cancelled Chloride 94 L Carbon Dioxide Anion Gap BUN Creatinine Estim Creat Clear Calc Est GFR (MDRD) Non-Af BUN/Creatinine Ratio Glucose Calcium b-Hydroxybutyric mmol/L Urine Color Urine Clarity Urine pH Ur Specific [place] Urine Protein Urine Glucose (UA) Urine Ketones Urine Occult Blood Urine Nitrite Urine Bilirubin Urine Urobilinogen Ur Leukocyte Esterase Urine RBC Urine WBC Ur Squamous Epith Cells Urine Bacteria Fine Granular Casts Urine Mucus POC Glucose 09/26/24 09/26/24 09/26/24 09:56 09:56 09:56 WBC RBC Hgb Hct MCV MCH MCHC RDW Std Deviation RDW Coeff of Bret Plt Count MPV Immature Gran % (Auto) Neut % (Auto) Lymph % (Auto) [place] % (Auto) Eos % (Auto) Baso % (Auto) Absolute Neuts (auto) Absolute Lymphs (auto) Nucleated RBC % Platelet Estimate Sodium Potassium Chloride Cancelled Carbon Dioxide 5.7 L* Cancelled Anion Gap 35 H Cancelled BUN 10 Creatinine Estim Creat Clear Calc Est GFR (MDRD) Non-Af BUN/Creatinine Ratio Glucose Calcium b-Hydroxybutyric mmol/L Urine Color Urine Clarity Urine pH Ur Specific [place] Urine Protein Urine Glucose (UA) Urine Ketones Urine Occult Blood Urine Nitrite Urine Bilirubin Urine Urobilinogen Ur Leukocyte Esterase Urine RBC Urine WBC Ur Squamous Epith Cells Urine Bacteria Fine Granular Casts Urine Mucus POC Glucose 09/26/24 09/26/24 09/26/24 09:56 09:56 09:56 WBC RBC Hgb Hct MCV MCH MCHC RDW Std Deviation RDW Coeff of Bret Plt Count MPV Immature Gran % (Auto) Neut % (Auto) Lymph % (Auto) [place] % (Auto) Eos % (Auto) Baso % (Auto) Absolute Neuts (auto) Absolute Lymphs (auto) Nucleated RBC % Platelet Estimate Sodium Potassium Chloride Carbon Dioxide Anion Gap BUN Cancelled Creatinine 0.84 Cancelled Estim Creat Clear Calc 83.54 Cancelled Est GFR (MDRD) Non-Af 93 BUN/Creatinine Ratio Glucose Calcium b-Hydroxybutyric mmol/L Urine Color Urine Clarity Urine pH Ur Specific [place] Urine Protein Urine Glucose (UA) Urine Ketones Urine Occult Blood Urine Nitrite Urine Bilirubin Urine Urobilinogen Ur Leukocyte Esterase Urine RBC Urine WBC Ur Squamous Epith Cells Urine Bacteria Fine Granular Casts Urine Mucus POC Glucose 09/26/24 09/26/24 09/26/24 09:56 09:56 09:56 WBC RBC Hgb Hct MCV MCH MCHC RDW Std Deviation RDW Coeff of Bret Plt Count MPV Immature Gran % (Auto) Neut % (Auto) Lymph % (Auto) [place] % (Auto) Eos % (Auto) Baso % (Auto) Absolute Neuts (auto) Absolute Lymphs (auto) Nucleated RBC % Platelet Estimate Sodium Potassium Chloride Carbon Dioxide Anion Gap BUN Creatinine Estim Creat Clear Calc Est GFR (MDRD) Non-Af Cancelled BUN/Creatinine Ratio 12.0 Cancelled Glucose 339 H Cancelled Calcium 9.3 b-Hydroxybutyric mmol/L Urine Color Urine Clarity Urine pH Ur Specific [place] Urine Protein Urine Glucose (UA) Urine Ketones Urine Occult Blood Urine Nitrite Urine Bilirubin Urine Urobilinogen Ur Leukocyte Esterase Urine RBC Urine WBC Ur Squamous Epith Cells Urine Bacteria Fine Granular Casts Urine Mucus POC Glucose 09/26/24 09/26/24 09/26/24 09:56 09:57 10:15 WBC RBC Hgb Hct MCV MCH MCHC RDW Std Deviation RDW Coeff of Bret Plt Count MPV Immature Gran % (Auto) Neut % (Auto) Lymph % (Auto) [place] % (Auto) Eos % (Auto) Baso % (Auto) Absolute Neuts (auto) Absolute Lymphs (auto) Nucleated RBC % Platelet Estimate Sodium Potassium Chloride Carbon Dioxide Anion Gap BUN Creatinine Estim Creat Clear Calc Est GFR (MDRD) Non-Af BUN/Creatinine Ratio Glucose Calcium Cancelled b-Hydroxybutyric mmol/L 9.5 Urine Color Yellow Urine Clarity Clear Urine pH 5.0 Ur Specific [place] 1.030 Urine Protein 100 H Urine Glucose (UA) 1000 H Urine Ketones 150 A* Urine Occult Blood 150 H Urine Nitrite Negative Urine Bilirubin Negative Urine Urobilinogen Normal Ur Leukocyte Esterase Negative Urine RBC 0-5 SEEN Urine WBC 0 SEEN Ur Squamous Epith Cells 5-10 SEEN Urine Bacteria 1+ Fine Granular Casts 0-5 SEEN Urine Mucus 0 SEEN POC Glucose 341 H ABG Data ABG results: ABG 09/26/24 09:57 Specimen Type BETHANY Sample Site Not entered VBG pH 7.06 L* VBG pO2 157 H VBG HCO3 5 L VBG Total CO2 6 L VBG O2 Sat (Calc) 99 H VBG Base Excess -25 L POC Mix VBG pCO2 Pt Tmp 19.2 L O2 Delivery Device Room Air Crit Call To/Read Back Yes Blood Gas Notified Whom everardo Blood Gas Notified Time 09:59:55 Radiography Diagnostic Testing: Clinical Impression(s) from Imaging Studies Chest X-Ray 09/26/24 10:20 IMPRESSION: No visible acute cardiopulmonary findings Reading Location: [facility] Rhythm Strip Rhythm Strip: Sinus Tach Rate: 112 Ectopy: None EKG Initial EKG: Attestation: I personally reviewed and interpreted this EKG as follows: Interpretation: No Acute Injury Pattern, Sinus Tachycardia and Non-Specific ST Changes Management Discussion w/another healthcare provider: Hospitalist Critical Care Time Critical Care Time: Yes Critical care time (excluding procedures): 30-74 minutes (32 min), Including time spent:, Discussing w/Patient &/or Family/Valet Runner, Discussing w/Consultants, Arranging Admission or Transfer and Performing Direct Patient Care at Bedside Discharge Plan Dx/Rx/DC Orders Clinical Impression: DKA (diabetic ketoacidosis) Disposition Disposition: [facility] Discharge Date/Time: 09/26/24 12:19
[2024-09-26] MEDS: 0.9% Normal Saline (1000mL) 1,000 ML 999 ML IV (09:55)
[2024-09-26] MEDS: Ondansetron 4 MG/2 ML Vial IV (09:58)
[2024-09-26 10:03] LABS: Blood Gas Specimen Type VEN; O2 Delivery Device Room Air; SITE Not entered; VBG BASE EXCESS -25 mmol/L (-1.0-3.5); VBG Bicarbonate 5 mmol/L (22-26); VBG PO2 157 mmHg (25-40); VBG SO2 99 % (50-70); VBG TCO2 6 mmol/L (23-33); VBG pCO2 19.2 mmHg (41-51); VBG pH 7.06 (7.32-7.42)
[2024-09-26 10:04] LABS: Absolute Lymphocyte Count 1.92 X10^3/uL (0.83-4.51); Basophil# 0.13 X10^3/uL; Basophil% 0.9 % (0-1); Eosinophil# 1.73 X10^3/uL; Hematocrit 45.9 % (37-47); Hemoglobin 14.2 g/dL (12.0-15.0); Lymphocyte # 1.92 X10^3/ul (0.83-4.51); Lymphocyte % 13.3 % (19-41); Mean Corp Hgb Conc 30.9 g/dL (32-36); Mean Corpuscular Hgb 29.5 pg (27.0-32.0); Mean Corpuscular Volume 95.4 fL (81-99); Mean Platelet Vol. 9.5 fl (6.2-12.0); Monocyte# 0.63 X10^3/uL; Monocyte% 4.4 % (0-10); NRBC Flagged by Analyzer 0 % (0-5); Neutrophil # 9.98 X10^3/uL (2.7-7.7); Neutrophil % 68.9 % (47-70); POSITIVE MORPHOLOGY YES; Platelet Count 464 K/mm3 (150-450); RBC Distribution Width CV 16.1 % (11.6-14.6); RBC Distribution Width SD 57.2 fl (35.1-43.9); Red Blood Count 4.81 M/mm3 (4.2-5.4); White Blood Count 14.5 K/mm3 (4.4-11.0)
[2024-09-26 10:17] LABS: Bedside Glucose 341 mg/dL (74-106)
[2024-09-26 10:19] LABS: Mucous, Urine 0 SEEN /hpf (<or=2+); White Blood Cells 0 SEEN /hpf (0-5)
--- NOTE | 2024-09-26 10:20 | RAD_ITS ---
PROCEDURE: CHEST 1 VIEW (PORTABLE) (RADCXPA_P), 09/26/2024 REASON FOR EXAM: DYSPNEA TECHNIQUE: A single portable AP view of the chest was obtained. COMPARISON: 04/04/2024 FINDINGS: Heart: Unremarkable. Mediastinum: Unremarkable. Lungs/pleura: No focal consolidation. No sizeable pleural effusion or visible pneumothorax. Bones: Trace thoracic scoliosis. Lines and support devices: None. Other: None. RAD/Chest 1 View (Portable) IMPRESSION: No visible acute cardiopulmonary findings Reading Location: [id number]
[2024-09-26 10:24] LABS: Color, Urine Yellow (Yellow); Glucose, Dipstick 1000 mg/dl (Normal); Leukocyte Esterase-Dipstick Negative /ul (Negative); Nitrite-Dipstick Negative (Negative); Occult Blood-Urine 150 /ul (Negative); Protein-Dipstick 100 mg/dl (Negative); Urine Bilirubin Dipstick Negative (Negative); Urine Clarity Clear (Clear); Urine Urobilinogen Normal (Normal)
[2024-09-26 10:29] LABS: Ketone-Dipstick 150 mg/dl (Negative)
[2024-09-26 10:42] LABS: Squamous Epithelial Cells - UA 5-10 SEEN /hpf (5-10)
[2024-09-26 10:43] LABS: Bacteria 1+ /hpf (None Seen); Fine Granular Cast- Urine 0-5 SEEN /lpf (0-5); Red Blood Cells-Urine 0-5 SEEN /hpf (0-5)
--- NOTE | 2024-09-26 10:49 | PCM.HP.STD ---
HPI - General General Date of Admission: 09/26/24 Date of Service: 09/26/24 HPI Narrative BRETT BOBBY, is a 33 F with a PMH of type 1 diabetes mellitus who presents via the ED on 09/26/2024 with a complaint of elevated blood sugars. She woke up at ~ 3:30am on the day of admission with vomiting; she then fell short of breath and had not been able to keep anything down orally. She felt like she was in DKA. She denied any fever, chills, cough, chest pain, palpitations, dizziness or any urinary symptoms. She said she had a recurrent Bartholin cyst recently which drained spontaneously. She also denies any urinary symptoms. Vitals in the ED were BP of 116/78, VA of 121, RR of 16 and temp of 98F. She was saturating at 98% on room air. CBC was pending as well as CMP. VBG showed pH ob 7.06, pO2 of 157 and bicarb of 5. Urine tox showed glucosa of 1000mg/dl and negative nitrites. she had 1+ bactereia in her urine. POC glucose was 341. She is being admitted to be managed for DKA and probable UTI [facility] Medical History Tobacco abuse Stage 3a chronic kidney disease (CKD) Diabetes mellitus type 1, uncontrolled, insulin dependent Home Medications ?Medication ?Instructions ?Recorded ?Last Taken ?Type insulin aspart U-100 100 unit/mL See Protocol subcut TID PRN 02/02/22 Unknown History (3 mL) subcutaneous pen (Novolog Hyperglycemia FlexPen U-100 Insulin aspart) insulin glargine-yfgn 100 unit/mL 30 unit (0.3 mL) subcut BID 04/05/24 Unknown Rx (3 mL) subcutaneous pen diabete #0 mL Allergy/AdvReac Type Severity Reaction Status Date / Time bee venom protein (honey bee) Allergy Anaphylaxis Verified 09/26/24 10:07 Family History Grandmother Diabetes Hypertension Heart disease Grandfather Diabetes Colon cancer Surgical History Hx of tonsillectomy History of partial hysterectomy Social History household members: children current occupational exposures/hazards: No Smoking Status: Light Smoker (<10/day) alcohol intake: current alcohol intake frequency: holidays/special occasions only substance use type: does not use ROS Constitutional Constitutional: Reports anorexia, fatigue and malaise; Denies chills, fever(s) or weakness Eyes Eyes: Denies change in vision ENT HEENT: Denies dysphagia, headache(s), hearing loss or sore throat Cardiovascular Cardiovascular: Denies chest pain, edema, orthopnea, palpitations, paroxysmal nocturnal dyspnea or syncope Respiratory/Chest Respiratory/Chest: Denies cough, hemoptysis, shortness of breath at rest or shortness of breath with exertion Gastrointestinal Gastrointestinal: Denies constipation Genitourinary Genitourinary: Denies dysuria or nocturia Musculoskeletal Musculoskeletal: Denies back pain, joint pain or muscle weakness Neurologic Neurologic: Denies confusion, dizziness, focal weakness or headache(s) Psychiatric Psychiatric: Denies anxiety or depression Vital Signs Vital Signs Vital Signs: 09/26/24 09:28 09/26/24 09:29 09/26/24 10:07 Temperature 96.1 F L 98.0 F Temperature Source Temporal Oral Pulse Rate 130 H 121 H Respiratory Rate 20 H 16 Respiratory Effort Normal Respiratory Pattern Normal Blood Pressure 132/91 H 116/78 Blood Pressure Mean 104 90 Pulse Ox 98 98 Oxygen Delivery Method Room Air Room Air Weight Weight: 151 lb Body Mass Index (BMI) 28.5 Physical Exam Const alert, oriented x3 and no apparent distress General Appearance: cooperative HEENT normocephalic, head/scalp atraumatic and moist oral mucous membranes Mouth: dry mucous membranes Eyes PERRL and EOMs intact bilaterally Neck no lymphadenopathy and supple Lymph Lymphatic: no lymphadenopathy noted and no lymphedema noted Resp normal respiratory effort, normal air movement and clear to auscultation bilaterally Cardio regular rhythm, S1 normal heart sound, S2 normal heart sound and no murmurs Cardio Narrative: tachycardic GI normal to inspection, nondistended, normoactive bowel sounds, soft to palpation, non-tender and non-distended Extremity normal capillary refill, no clubbing, cyanosis or edema and no calf tenderness General Extremity: no tenderness to palpation of joints or extremities Skin General Skin Exam: no breakdown Neuro CN's II-XII intact bilaterally, no focal motor deficits and no sensory deficits noted Coordination / Balance: [id number] test normal Motor Exam: general weakness Psych thought process normal and cooperative Appearance: appropriate Results Lab / Micro Data 09/26/24 09:56 09/26/24 09:56 Labs: Laboratory Results - last 24 hr 09/26/24 09:56: Sodium Cancelled, Potassium Cancelled, Chloride Cancelled, Carbon Dioxide Cancelled, Anion Gap Cancelled, BUN Cancelled, Creatinine Cancelled, Estim Creat Clear Calc Cancelled, Est GFR (MDRD) Non-Af Cancelled, BUN/Creatinine Ratio Cancelled, Glucose Cancelled, Calcium Cancelled 09/26/24 09:57: POC Glucose 341 H 09/26/24 10:15: Urine Color Yellow, Urine Clarity Clear, Urine pH 5.0, Ur Specific [place] 1.030, Urine Protein 100 H, Urine Glucose (UA) 1000 H, Urine Ketones 150 A*, Urine Occult Blood 150 H, Urine Nitrite Negative, Urine Bilirubin Negative, Urine Urobilinogen Normal, Ur Leukocyte Esterase Negative, Urine RBC 0-5 SEEN, Urine WBC 0 SEEN, Ur Squamous Epith Cells 5-10 SEEN, Urine Bacteria 1+, Fine Granular Casts 0-5 SEEN, Urine Mucus 0 SEEN ABG Data ABG results: ABG 09/26/24 09:57 Specimen Type BETHANY Sample Site Not entered VBG pH 7.06 L* VBG pO2 157 H VBG HCO3 5 L VBG Total CO2 6 L VBG O2 Sat (Calc) 99 H VBG Base Excess -25 L POC Mix VBG pCO2 Pt Tmp 19.2 L O2 Delivery Device Room Air Crit Call To/Read Back Yes Blood Gas Notified Whom everardo Blood Gas Notified Time 09:59:55 Rhythm Strip Rhythm Strip: Sinus Tach Rate: 112 Ectopy: None Assessment & Plan Assessment/Plan (1) DKA (diabetic ketoacidosis): PLAN: Plan #Acute DKA admit to ICU admitted with a complaint of nausea and vomiting an feeling like she was going into DKA CBC and BMP pending VBG showed bicarb of 5 and pH of 7.06. start on insulin drip per DKA protocol BMP every 4 hourly. Consult critical care. Hold home dose of Lantus. hydrate aggressively with IVF also once blood sugar is <250 and anion gap has closed x 2, will place back on her home dose of Lantus and placed on a diet. Keep n.p.o. for now. #Recent Bartholin cyst: Abscess this is drained spontaneously. stable. #Probable UTI Urinalysis shows 1+ bacteria. In light of her DKA with no clear precipitant, we will go ahead and treat her for UTI with IV ceftriaxone. Urine cultures ordered. DVT prophylaxis: lovenox Charges/Coding Visit Charges Inpatient E&M: 99660 Init Hosp L3
[2024-09-26 10:50] LABS: BETA-HYDROXYBUTYRATE 9.5 mmol/L (0.0-0.3)
[2024-09-26 10:57] LABS: Anion Gap 35 (5-15); BUN 10 mg/dL (4-19); Calcium,Total 9.3 mg/dL (7.6-11.0); Carbon Dioxide 5.7 mmol/L (21.0-32.0); Chloride 94 mmol/L (98-108); Creatinine, Serum 0.84 mg/dL (0.70-1.20); EST Glomerular Filtration Rate 93 (>60); Estimated Creatinine Clearance 83.54 ml/min (50-250); Glucose 339 mg/dL (70-99); Potassium 4.7 mmol/L (3.3-5.1); Sodium Level 134 mmol/L (133-145)
[2024-09-26 11:02] LABS: Differential Indicated SCAN CRITERIA MET
[2024-09-26 11:04] LABS: Platelet Estimate SLT INC (ADEQ)
[2024-09-26] MEDS: 0.9% Normal Saline (1000mL) 1,000 ML 500 ML IV (12:06)
[2024-09-26] MEDS: Insulin Lispro 100 UNIT in 0.9% Normal Saline (100mL Bag) 99 ML 6.8 UNIT CONT INF (12:07)
[2024-09-26 12:38] LABS: Bedside Glucose 420 mg/dL (74-106)
[2024-09-26 13:38] LABS: Bedside Glucose 361 mg/dL (74-106)
--- NOTE | 2024-09-26 13:40 | CASEMGMT ---
KWASI RUIZ Assessment: Face to Face with pt for initial transition planning/care coordination assessment. KWASI RUIZ introduced self and role at [facility], pt voices understanding and consents to assessment. Pt is A&O x4 and answers all questions appropriately at this time. Pt lying in bed in no distress. Care providers, pharmacy, and demographics verified/updated. Admitting Dx: DKA PCP:Lionel Specialists:Denies Preferred Pharmacy:[facility] Insurance: [employer] Prescription Benefit: yes LNOK: Genesis Cruz, mother Living Arrangements: Pt lives with parents, 4 children and grandparent in a two story home with 3 steps to enter. Pt reports she is I in ADL/IADLs. Pt denies concerns at home. Transportation: Pt mother transports pt. DME:BGM, CGM with sufficient supplies as well as insulin with sufficient supply and needles HHC/SNF: Denies hx of Pt states no concerns with going home at time of dc. Pt states no further concerns/needs. CM to follow. Advised pt to ask CM if any further questions/concerns/needs arise, voices understanding. Pt Goal: Home Plan: Home Payam VILLALPANDO CM
[2024-09-26 14:25] LABS: Bedside Glucose 267 mg/dL (74-106)
[2024-09-26] MEDS: Dext 5%-0.45% NS 1,000 ML 150 ML IV ×2 (15:19→23:16)
--- NOTE | 2024-09-26 16:02 | PCMCONS.TICU ---
HPI Consult Data Date of Consult: 09/26/24 HPI Narrative HPI Narrative: BRETT BOBBY, is a 33yo DM2 with last A1C estimated to be 9 per patient on 24u BID long acting and 10u premeal insulin last in hospital for DKA in 2023. Here with DKA again. Denies change in use of insulin or dietary habits. Denies UTI, URI, GI symtptoms. NO recent steroid rx. No documented SLG2i rx. [facility] Medical History Tobacco abuse Stage 3a chronic kidney disease (CKD) Diabetes mellitus type 1, uncontrolled, insulin dependent Home Medications ?Medication ?Instructions ?Recorded ?Last Taken ?Type insulin aspart U-100 100 unit/mL See Protocol subcut TID PRN 02/02/22 Unknown History (3 mL) subcutaneous pen (Novolog Hyperglycemia FlexPen U-100 Insulin aspart) insulin glargine-yfgn 100 unit/mL 30 unit (0.3 mL) subcut BID 04/05/24 Unknown Rx (3 mL) subcutaneous pen diabete #0 mL Allergy/AdvReac Type Severity Reaction Status Date / Time bee venom protein (honey bee) Allergy Anaphylaxis Verified 09/26/24 10:07 Family History Grandmother Diabetes Hypertension Heart disease Grandfather Diabetes Colon cancer Surgical History Hx of tonsillectomy History of partial hysterectomy Social History household members: children current occupational exposures/hazards: No Smoking Status: Light Smoker (<10/day) alcohol intake: current alcohol intake frequency: holidays/special occasions only substance use type: does not use Objective Data Objective Data Vital Signs: Vital Signs Last response Temperature 36.7 C 09/26/24 12:19 Temperature Source Oral 09/26/24 12:00 Pulse Rate 124 H 09/26/24 12:50 Respiratory Rate 22 H 09/26/24 12:50 Respiratory Effort Normal 09/26/24 10:07 Respiratory Pattern Normal 09/26/24 10:07 Blood Pressure 152/90 H 09/26/24 12:50 Blood Pressure Mean 110 09/26/24 12:50 Blood Pressure Source Monitor 09/26/24 12:50 Blood Pressure Position Semi-Fowlers 09/26/24 12:50 Blood Pressure Location Right Arm 09/26/24 12:50 Pulse Ox 99 09/26/24 12:50 Oxygen Delivery Method Room Air 09/26/24 12:50 I&O: I&O Last 24 Hours 09/25/24 09/26/24 09/26/24 23:59 11:59 23:59 Intake Total Balance I&O: Total Stay 09/26/24 09:27 thru 09/26/24 15:05 Intake Total Balance Current Meds Ordered / Administered: Current meds ordered / Administered Generic Name Dose Route Start Last Admin Trade Name Freq PRN Reason Stop Dose Admin Acetaminophen 650 mg 09/26/24 12:38 Acetaminophen 325 Mg Tablet PO Q6H PRN PRN Pain 1-10 Or Fever >100.7 Enoxaparin Sodium 40 mg 09/27/24 10:00 Enoxaparin 40 Mg/0.4 Ml Syringe SC DAILY [facility] Dextrose 250 mls @ 999 mls/hr 09/26/24 12:38 Dextrose 10%-Water IV .Q16M PRN Hypoglycemic Protocol Protocol Insulin Human Lispro 100 unit/ 100 mls @ 6.849 mls/hr 09/26/24 12:38 Sodium Chloride CONT INF .[id number] JAC Protocol Dextrose/Sodium Chloride 1,000 mls @ 150 mls/hr 09/26/24 15:15 09/26/24 15:19 IV 150 mls/hr .Q6H40M JAC Administration Ceftriaxone Sodium 1 gm in 50 mls @ 100 mls/hr 09/26/24 15:55 Rocephin IV Q24 [facility] Insulin Glargine 24 unit 09/26/24 15:27 Insulin Glargine-Yfgn 100 Unit/Ml Pen SC DAILY [facility] Ondansetron HCl 4 mg 09/26/24 12:38 Ondansetron 4 Mg/2 Ml Vial IV Q8H PRN PRN NAUSEA/VOMITING Oxycodone HCl 2.5 - 5 mg 09/26/24 12:38 Oxycodone 5 Mg Tablet PO Q4H PRN PRN Pain Score 4-10 Sodium Chloride 10 - 40 ml 09/26/24 12:44 0.9% Saline Lock 10 Ml Syringe IV UD PRN SALINE FLUSH Physical Exam Const alert, oriented x3 and no apparent distress General Appearance: cooperative, well developed and ill appearing HEENT normocephalic and head/scalp atraumatic HEENT Narrative: dry membranes Eyes PERRL, EOMs intact bilaterally, conjunctivae normal and no scleral icterus Neck full ROM, no lymphadenopathy, supple and no JVD Chest inspection of chest normal Resp Resp Narrative: no kussmaul breathing Effort and Inspection: able to speak in complete sentences Auscultation: clear to auscultation bilaterally Cardio regular rate and regular rhythm GI normal to inspection, nondistended, normoactive bowel sounds, soft to palpation and non-tender Auscultation: normoactive bowel sounds no CVA tenderness Extremity no clubbing, cyanosis or edema Neuro oriented x3, CN's II-XII intact bilaterally, moves all extremities and no focal motor deficits Psych cooperative and affect normal Lab / Micro Data Attestation: I reviewed the patient's lab results. 09/26/24 09:56 09/26/24 09:56 Labs: Laboratory Results - last 24 hr 09/26/24 09:56: WBC 14.5 H, RBC 4.81, Hgb 14.2, Hct 45.9, MCV 95.4, MCH 29.5, MCHC 30.9 L, RDW Std Deviation 57.2 H, RDW Coeff of Bret 16.1 H, Plt Count 464 H, MPV 9.5, Immature Gran % (Auto) 0.500, Neut % (Auto) 68.9, Lymph % (Auto) 13.3 L, Gray % (Auto) 4.4, Eos % (Auto) 12.0 H, Baso % (Auto) 0.9, Absolute Neuts (auto) 10.0 H, Absolute Lymphs (auto) 1.92, Nucleated RBC % 0, Platelet Estimate SLT INC, Sodium 134 09/26/24 09:56: Sodium Cancelled, Potassium 4.7 09/26/24 09:56: Potassium Cancelled, Chloride 94 L 09/26/24 09:56: Chloride Cancelled, Carbon Dioxide 5.7 L* 09/26/24 09:56: Carbon Dioxide Cancelled, Anion Gap 35 H 09/26/24 09:56: Anion Gap Cancelled, BUN 10 09/26/24 09:56: BUN Cancelled, Creatinine 0.84 09/26/24 09:56: Creatinine Cancelled, Estim Creat Clear Calc 83.54 09/26/24 09:56: Estim Creat Clear Calc Cancelled, Est GFR (MDRD) Non-Af 93 09/26/24 09:56: Est GFR (MDRD) Non-Af Cancelled, BUN/Creatinine Ratio 12.0 09/26/24 09:56: BUN/Creatinine Ratio Cancelled, Glucose 339 H 09/26/24 09:56: Glucose Cancelled, Calcium 9.3 09/26/24 09:56: Calcium Cancelled, b-Hydroxybutyric mmol/L 9.5 09/26/24 09:57: POC Glucose 341 H 09/26/24 10:15: Urine Color Yellow, Urine Clarity Clear, Urine pH 5.0, Ur Specific [place] 1.030, Urine Protein 100 H, Urine Glucose (UA) 1000 H, Urine Ketones 150 A*, Urine Occult Blood 150 H, Urine Nitrite Negative, Urine Bilirubin Negative, Urine Urobilinogen Normal, Ur Leukocyte Esterase Negative, Urine RBC 0-5 SEEN, Urine WBC 0 SEEN, Ur Squamous Epith Cells 5-10 SEEN, Urine Bacteria 1+, Fine Granular Casts 0-5 SEEN, Urine Mucus 0 SEEN 09/26/24 12:18: POC Glucose 420 H 09/26/24 13:18: POC Glucose 361 H 09/26/24 13:31: Sodium Cancelled, Potassium Cancelled, Chloride Cancelled, Carbon Dioxide Cancelled, Anion Gap Cancelled, BUN Cancelled, Creatinine Cancelled, Estim Creat Clear Calc Cancelled, Est GFR (MDRD) Non-Af Cancelled, BUN/Creatinine Ratio Cancelled, Glucose Cancelled, Calcium Cancelled 09/26/24 14:06: POC Glucose 267 H ABG Data ABG results: ABG 09/26/24 09:57 Specimen Type BETHANY Sample Site Not entered VBG pH 7.06 L* VBG pO2 157 H VBG HCO3 5 L VBG Total CO2 6 L VBG O2 Sat (Calc) 99 H VBG Base Excess -25 L POC Mix VBG pCO2 Pt Tmp 19.2 L O2 Delivery Device Room Air Crit Call To/Read Back Yes Blood Gas Notified Whom everardo Blood Gas Notified Time 09:59:55 Rhythm Strip Rhythm Strip: Sinus Tach Rate: 112 Ectopy: None Imaging Radiology Impression Chest X-Ray 09/26/24 10:20 IMPRESSION: No visible acute cardiopulmonary findings Reading Location: [facility] Assessment and Plan . Assessment and plan: ICU Problem List: DKA Hyperglycemia and diabetes Anion gap metabolic acidosis Non adherence to medical therapy Plan: load 24u glargine now simultaneous to insulin drip titrate up D5 to 250cc/hr if fingerstick drops below 200 while on insulin drip q4h BMP elyte replacement blood cx and UA c reflex to Cx given WBC elevation and SIRS, but may be leukamoid in repsonse to hyperglycemia Dino Hernandez MD PCCM Access [facility] Critical Care Time: 60 min The entirety of this encounter was done via Telemedicine
[2024-09-26] MEDS: Ceftriaxone 1 GM/50 ML BAG IV (16:34)
[2024-09-26 16:58] LABS: Bedside Glucose 232 mg/dL (74-106)
[2024-09-26 16:59] LABS: Bedside Glucose 246 mg/dL (74-106)
[2024-09-26 17:16] LABS: Anion Gap 28 (5-15); BUN 11 mg/dL (4-19); BUN/Creat Ratio 11.9 RATIO (10-20); Calcium,Total 8.3 mg/dL (7.6-11.0); Chloride 101 mmol/L (98-108); Creatinine, Serum 0.95 mg/dL (0.70-1.20); EST Glomerular Filtration Rate 81 (>60); Estimated Creatinine Clearance 74.06 ml/min (50-250); Glucose 245 mg/dL (70-99); Potassium 5.2 mmol/L (3.3-5.1); Sodium Level 134 mmol/L (133-145)
[2024-09-26 17:38] LABS: Bedside Glucose 251 mg/dL (74-106)
[2024-09-26 18:20] LABS: Hemoglobin A1c 10.2 % (<=5.6)
[2024-09-26 18:38] LABS: Bedside Glucose 240 mg/dL (74-106)
[2024-09-26 19:20] LABS: Bedside Glucose 257 mg/dL (74-106)
[2024-09-26 20:50] LABS: Bedside Glucose 223 mg/dL (74-106)
[2024-09-26 21:10] LABS: Anion Gap 21 (5-15); BUN 9 mg/dL (4-19); BUN/Creat Ratio 10.7 RATIO (10-20); Calcium,Total 8.3 mg/dL (7.6-11.0); Chloride 103 mmol/L (98-108); Creatinine, Serum 0.85 mg/dL (0.70-1.20); EST Glomerular Filtration Rate 92 (>60); Estimated Creatinine Clearance 82.77 ml/min (50-250); Glucose 255 mg/dL (70-99); Potassium 4.6 mmol/L (3.3-5.1); Sodium Level 132 mmol/L (133-145)
[2024-09-26 21:34] LABS: Carbon Dioxide 7.6 mmol/L (21.0-32.0)
[2024-09-26 21:48] LABS: Bedside Glucose 235 mg/dL (74-106)
[2024-09-26 22:34] LABS: Bedside Glucose 227 mg/dL (74-106)
[2024-09-26 23:32] LABS: Bedside Glucose 201 mg/dL (74-106)
[2024-09-27] VITALS (24 sets, daily range): BP systolic 114–147; BP diastolic 61–99; PULSE 73–107; RESP 18–25; TEMP 36.6–37.2; O2SAT 99–100; BMI 29.3
[2024-09-27 00:39] LABS: Bedside Glucose 177 mg/dL (74-106)
[2024-09-27 01:06] LABS: BUN 9 mg/dL (4-19); BUN/Creat Ratio 10.7 RATIO (10-20); Calcium,Total 8.2 mg/dL (7.6-11.0); Carbon Dioxide 9.6 mmol/L (21.0-32.0); Chloride 105 mmol/L (98-108); Creatinine, Serum 0.83 mg/dL (0.70-1.20); EST Glomerular Filtration Rate 95 (>60); Estimated Creatinine Clearance 84.77 ml/min (50-250); Glucose 192 mg/dL (70-99); Potassium 4.2 mmol/L (3.3-5.1); Sodium Level 132 mmol/L (133-145)
[2024-09-27 01:35] LABS: Bedside Glucose 166 mg/dL (74-106)
[2024-09-27 02:35] LABS: Bedside Glucose 157 mg/dL (74-106)
[2024-09-27 04:36] LABS: Bedside Glucose 118 mg/dL (74-106)
[2024-09-27 05:31] LABS: Anion Gap 16 (5-15); BUN 10 mg/dL (4-19); BUN/Creat Ratio 13.1 RATIO (10-20); Calcium,Total 8.3 mg/dL (7.6-11.0); Carbon Dioxide 10.4 mmol/L (21.0-32.0); Chloride 107 mmol/L (98-108); Creatinine, Serum 0.73 mg/dL (0.70-1.20); EST Glomerular Filtration Rate 110 (>60); Estimated Creatinine Clearance 96.38 ml/min (50-250); Glucose 119 mg/dL (70-99); Potassium 3.7 mmol/L (3.3-5.1); Sodium Level 133 mmol/L (133-145)
[2024-09-27 06:13] LABS: Absolute Lymphocyte Count 1.97 X10^3/uL (0.83-4.51); Absolute Neutrophil Count 8.2 X10^3/uL (2.0-7.7); Basophil# 0.06 X10^3/uL; Basophil% 0.5 % (0-1); Eosinophil# 0.05 X10^3/uL; Eosinophils% 0.4 % (0-5); Hematocrit 41.4 % (37-47); Lymphocyte # 1.97 X10^3/ul (0.83-4.51); Lymphocyte % 17.3 % (19-41); Mean Corp Hgb Conc 31.4 g/dL (32-36); Mean Corpuscular Hgb 29.6 pg (27.0-32.0); Mean Corpuscular Volume 94.3 fL (81-99); Mean Platelet Vol. 9.3 fl (6.2-12.0); Monocyte% 9.7 % (0-10); NRBC Flagged by Analyzer 0 % (0-5); Neutrophil # 8.16 X10^3/uL (2.7-7.7); Neutrophil % 71.7 % (47-70); POSITIVE COUNT YES; RBC Distribution Width CV 16.1 % (11.6-14.6); RBC Distribution Width SD 55.9 fl (35.1-43.9); Red Blood Count 4.39 M/mm3 (4.2-5.4); White Blood Count 11.4 K/mm3 (4.4-11.0)
[2024-09-27 06:18] LABS: Differential Indicated SCAN CRITERIA MET
[2024-09-27] MEDS: Dext 5%-0.45% NS 1,000 ML 150 ML IV (06:29)
[2024-09-27] MEDS: 0.9% Saline Lock 10 ML Syringe IV ×3 (06:33→16:13)
[2024-09-27 07:17] LABS: Bedside Glucose 81 mg/dL (74-106)
[2024-09-27 07:18] LABS: Platelet Count 324 K/mm3 (150-450)
[2024-09-27 07:18] LABS: Bedside Glucose 79 mg/dL (74-106)
[2024-09-27 08:43] LABS: Bedside Glucose 172 mg/dL (74-106)
[2024-09-27] MEDS: Enoxaparin 40 MG/0.4 ML Syringe SC (10:11)
[2024-09-27] MEDS: Ceftriaxone 1 GM/50 ML BAG IV (10:12)
[2024-09-27] MEDS: Insulin Glargine-YFGN 100 UNIT/ML Pen 24 UNIT SC (10:16)
[2024-09-27 10:18] LABS: Bedside Glucose 267 mg/dL (74-106)
[2024-09-27 11:22] LABS: Bedside Glucose 306 mg/dL (74-106)
--- NOTE | 2024-09-27 11:43 | PN.HOSP_ITS ---
Subjective Subjective Feels much better than when she came into the hospital, and her numbers are improving though 9 AM labs are still pending Objective Data Objective Data Vital Signs: Vital Signs Temp Pulse Resp BP Pulse Ox O2 Del Method 98.9 F 101 H 20 H 121/61 H 100 Room Air 09/27/24 08:00 09/27/24 10:00 09/27/24 10:00 09/27/24 10:00 09/27/24 10:00 09/27/24 10:00 Oxygen Delivery Method Room Air Weight: 155 lb 6.814 oz Body Mass Index (BMI) 29.3 Intake & Output: Intake and Output for Last 24 Hours 09/26/24 09/27/24 09/28/24 03:59 03:59 03:59 Intake Total 3103.12 / 3103.12 1388.68 / 1388.68 Balance 3103.12 / 3103.12 1388.68 / 1388.68 Lab / Micro Data 09/27/24 05:55 09/27/24 04:18 Labs: Laboratory Results - last 24 hr 09/26/24 09:56: Hemoglobin A1c 10.2 09/26/24 12:18: POC Glucose 420 H 09/26/24 13:18: POC Glucose 361 H 09/26/24 13:31: Sodium Cancelled, Potassium Cancelled, Chloride Cancelled, Carbon Dioxide Cancelled, Anion Gap Cancelled, BUN Cancelled, Creatinine Cancelled, Estim Creat Clear Calc Cancelled, Est GFR (MDRD) Non-Af Cancelled, BUN/Creatinine Ratio Cancelled, Glucose Cancelled, Calcium Cancelled 09/26/24 14:06: POC Glucose 267 H 09/26/24 14:59: POC Glucose 232 H 09/26/24 15:52: Sodium 134, Potassium 5.2 H, Chloride 101, Carbon Dioxide 5.0 L* , Anion Gap 28 H, BUN 11, Creatinine 0.95, Estim Creat Clear Calc 74.06, Est GFR (MDRD) Non-Af 81, BUN/Creatinine Ratio 11.9, Glucose 245 H, Calcium 8.3 09/26/24 16:33: POC Glucose 246 H 09/26/24 17:17: POC Glucose 251 H 09/26/24 18:15: POC Glucose 240 H 09/26/24 19:01: POC Glucose 257 H 09/26/24 20:09: POC Glucose 223 H 09/26/24 20:30: Sodium 132 L, Potassium 4.6, Chloride 103, Carbon Dioxide 7.6 L* , Anion Gap 21 H, BUN 9, Creatinine 0.85, Estim Creat Clear Calc 82.77, Est GFR (MDRD) Non-Af 92, BUN/Creatinine Ratio 10.7, Glucose 255 H, Calcium 8.3 09/26/24 21:30: POC Glucose 235 H 09/26/24 22:14: POC Glucose 227 H 09/26/24 23:15: POC Glucose 201 H 09/27/24 00:16: POC Glucose 177 H 09/27/24 00:20: Sodium 132 L, Potassium 4.2, Chloride 105, Carbon Dioxide 9.6 L* , Anion Gap 18 H, BUN 9, Creatinine 0.83, Estim Creat Clear Calc 84.77, Est GFR (MDRD) Non-Af 95, BUN/Creatinine Ratio 10.7, Glucose 192 H, Calcium 8.2 09/27/24 01:14: POC Glucose 166 H 09/27/24 02:17: POC Glucose 157 H 09/27/24 04:09: POC Glucose 118 H 09/27/24 04:18: WBC Cancelled, Corrected WBC Cancelled, RBC Cancelled, Hgb Cancelled, Hct Cancelled, MCV Cancelled, MCH Cancelled, MCHC Cancelled, RDW Std Deviation Cancelled, RDW Coeff of Bret Cancelled, Plt Count Cancelled, MPV Cancelled, Immature Gran % (Auto) Cancelled, Neut % (Auto) Cancelled, Lymph % (Auto) Cancelled, [place] % (Auto) Cancelled, Eos % (Auto) Cancelled, Baso % (Auto) Cancelled, Absolute Neuts (auto) Cancelled, Absolute Lymphs (auto) Cancelled, Total Counted Cancelled, Neutrophils % (Manual) Cancelled, Band Neutrophils % Cancelled, Lymphocytes % (Manual) Cancelled, Monocytes % (Manual) Cancelled, Eosinophils % (Manual) Cancelled, Basophils % (Manual) Cancelled, Metamyelocytes % Cancelled, Myelocytes % Cancelled, Promyelocytes % Cancelled, Blast Cells % Cancelled, Plasma Cell % (Manual) Cancelled, Other Cells % Cancelled, Nucleated RBC % Cancelled, Nucleated RBCs/100 WBC Cancelled, Differential Comment Cancelled, Diff Path Review Cancelled, Hypersegmented Neuts Cancelled, Atypical Lymphocytes Cancelled, Reactive Lymphocytes Cancelled, Smudge Cells Cancelled, Toxic Granulation Cancelled, Toxic Vacuolation Cancelled, Dohle Bodies Cancelled, Myrtle Rods Cancelled, Platelet Estimate Cancelled, Plt Morphology Comment Cancelled, RBC Morphology Cancelled 09/27/24 04:18: RBC Morphology Cancelled, Polychromasia Cancelled, Hypochromasia Cancelled, Basophilic Stippling Cancelled, Anisocytosis Cancelled, Microcytosis Cancelled, Macrocytosis Cancelled, Spherocytes Cancelled, Sickle Cells Cancelled, Target Cells Cancelled, Tear Drop Cells Cancelled, Ovalocytes Cancelled, Stomatocytes Cancelled, Palomo-Aurelia Bodies Cancelled, [place] Cells Cancelled, Bite Cells Cancelled, Crenated Cell Cancelled, Acanthocytes (Spur) Cancelled, Rouleaux Cancelled, Schistocytes Cancelled, Sodium 133, Potassium 3.7, Chloride 107, Carbon Dioxide 10.4 L, Anion Gap 16 H, BUN 10, Creatinine 0.73, Estim Creat Clear Calc 96.38, Est GFR (MDRD) Non-Af 110, BUN/Creatinine Ratio 13.1, Glucose 119 H, Calcium 8.3 09/27/24 05:55: WBC 11.4 H, RBC 4.39, Hgb 13.0, Hct 41.4, MCV 94.3, MCH 29.6, M CHC 31.4 L, RDW Std Deviation 55.9 H, RDW Coeff of Bret 16.1 H, Plt Count 324, MPV 9.3, Immature Gran % (Auto) 0.400, Neut % (Auto) 71.7 H, Lymph % (Auto) 17.3 L, [place] % (Auto) 9.7, Eos % (Auto) 0.4, Baso % (Auto) 0.5, Absolute Neuts (auto) 8.2 H, Absolute Lymphs (auto) 1.97, Nucleated RBC % 0 09/27/24 06:22: POC Glucose 81 09/27/24 06:57: POC Glucose 79 09/27/24 08:25: POC Glucose 172 H 09/27/24 09:54: POC Glucose 267 H 09/27/24 11:02: POC Glucose 306 H Rhythm Strip Rhythm Strip: Sinus Tach Rate: 112 Ectopy: None Physical Exam Narrative General: Alert, Oriented x3, Cooperative, No apparent distress HEENT: Atraumatic, PERRLA, EOMI, Normocephalic Oral: Moist Mucosa Neck: Supple, No JVD Lungs: Diminished, Normal air movement, No rhonchi, No wheeze, No rales Cardiovascular: Tachycardic, Regular Rhythm, Normal S1, Normal S2, No murmurs Abdomen: Soft, Non Tender, Non-Distended, No Hepato-splenomegaly Extremities: No edema, Capillary Refill Less than 3 Seconds Skin: No rashes, No breakdown Musculoskeletal: No Tenderness to Palpation of Joints or Extremities Neurological: No focal neurological deficits, Motor Exam 5/5 strength throughout, Sensory exam intact to light touch and pain Psych/Mental Status: Normal Affect, Appropriate Assessment & Plan Assessment/Plan (1) DKA (diabetic ketoacidosis): PLAN: Plan 1. DKA ? Continue with DKA protocol ? Will monitor her bicarb, it was below 10 on admission if her 9 AM labs result with a still very low bicarb may need to add a bicarb drip ? Can advance diet once anion gap is closed x 2 ? She is not sure as to why she went into DKA on this admission, the last time in March it was because her monitor was malfunctioning ? She was started on antibiotics for a UTI, UA with no leukocyte esterase or nitrates, no urine WBCs but there was 1+ bacteria and she did have a recent Bartholin cyst that started to drain spontaneously DVT: [email or web address] Charges/Coding Visit Charges Inpatient E&M: 96423 Subs Hosp L2
[2024-09-27 12:29] LABS: Bedside Glucose 254 mg/dL (74-106)
[2024-09-27 12:54] LABS: Anion Gap 21 (5-15); BUN 9 mg/dL (4-19); BUN/Creat Ratio 12.8 RATIO (10-20); Calcium,Total 8.2 mg/dL (7.6-11.0); Carbon Dioxide 8.4 mmol/L (21.0-32.0); Chloride 103 mmol/L (98-108); Creatinine, Serum 0.74 mg/dL (0.70-1.20); EST Glomerular Filtration Rate 108 (>60); Estimated Creatinine Clearance 96.19 ml/min (50-250); Glucose 179 mg/dL (70-99); Potassium 4.2 mmol/L (3.3-5.1); Sodium Level 132 mmol/L (133-145)
[2024-09-27 12:54] LABS: Anion Gap 20 (5-15); BUN 8 mg/dL (4-19); BUN/Creat Ratio 9.8 RATIO (10-20); Calcium,Total 8.2 mg/dL (7.6-11.0); Chloride 102 mmol/L (98-108); Creatinine, Serum 0.81 mg/dL (0.70-1.20); EST Glomerular Filtration Rate 98 (>60); Estimated Creatinine Clearance 87.88 ml/min (50-250); Glucose 276 mg/dL (70-99); Potassium 3.7 mmol/L (3.3-5.1); Sodium Level 132 mmol/L (133-145)
[2024-09-27 13:07] LABS: Carbon Dioxide 9.8 mmol/L (21.0-32.0)
[2024-09-27 13:16] LABS: Anion Gap 18 (5-15)
[2024-09-27 13:30] LABS: Bedside Glucose 190 mg/dL (74-106)
[2024-09-27] MEDS: Dext 5%-0.45% NS 1,000 ML 250 ML IV ×3 (14:20→23:02)
[2024-09-27 14:21] LABS: Bedside Glucose 172 mg/dL (74-106)
[2024-09-27 15:31] LABS: Bedside Glucose 216 mg/dL (74-106)
[2024-09-27 16:31] LABS: Bedside Glucose 229 mg/dL (74-106)
[2024-09-27 16:37] LABS: Anion Gap 16 (5-15); BUN 7 mg/dL (4-19); Carbon Dioxide 12.3 mmol/L (21.0-32.0); Chloride 104 mmol/L (98-108); Creatinine, Serum 0.76 mg/dL (0.70-1.20); EST Glomerular Filtration Rate 106 (>60); Estimated Creatinine Clearance 93.66 ml/min (50-250); Glucose 245 mg/dL (70-99); Potassium 3.5 mmol/L (3.3-5.1); Sodium Level 132 mmol/L (133-145)
[2024-09-27] MEDS: Insulin Lispro 100 UNIT in 0.9% Normal Saline (100mL Bag) 99 ML CONT INF (17:25)
[2024-09-27 17:44] LABS: Bedside Glucose 207 mg/dL (74-106)
[2024-09-27 18:32] LABS: Bedside Glucose 171 mg/dL (74-106)
[2024-09-27 19:19] LABS: Bedside Glucose 111 mg/dL (74-106)
[2024-09-27 20:07] LABS: Bedside Glucose 140 mg/dL (74-106)
[2024-09-27 20:21] LABS: Anion Gap 11 (5-15); BUN 5 mg/dL (4-19); BUN/Creat Ratio 6.8 RATIO (10-20); Calcium,Total 7.8 mg/dL (7.6-11.0); Carbon Dioxide 15.2 mmol/L (21.0-32.0); Chloride 105 mmol/L (98-108); EST Glomerular Filtration Rate 99 (>60); Estimated Creatinine Clearance 88.97 ml/min (50-250); Glucose 127 mg/dL (70-99); Sodium Level 131 mmol/L (133-145)
--- NOTE | 2024-09-27 20:33 | NURSING ---
2000 Anion Gap 11, first of 2 closed Gap required for drip to be discontinued. Next BMP 0000. Support and education provided no additional needs or concerns verbalized or identified
[2024-09-27 21:18] LABS: Bedside Glucose 115 mg/dL (74-106)
[2024-09-27 22:21] LABS: Bedside Glucose 117 mg/dL (74-106)
[2024-09-28] VITALS (11 sets, daily range): BP systolic 115–150; BP diastolic 75–96; PULSE 63–107; RESP 14–26; TEMP 36.6–36.7; O2SAT 94–100; BMI 29.3
[2024-09-28 00:04] LABS: Bedside Glucose 123 mg/dL (74-106)
[2024-09-28 00:05] LABS: Potassium 6.1 mmol/L (3.3-5.1)
[2024-09-28 00:17] LABS: Bedside Glucose 106 mg/dL (74-106)
--- NOTE | 2024-09-28 00:30 | NURSING ---
Pt called out, feeling light headed and dizzy. concern her BG is too low Blood Glucose obtained 85: Pt requesting orange Juice. Insulin drip stopped. D5 1/2NS continues at 250ml/hr. Awaiting BMP results. Support and education provided no additional needs or concerns verbalized or identified.
[2024-09-28 00:45] LABS: Bedside Glucose 85 mg/dL (74-106)
[2024-09-28 00:52] LABS: Anion Gap 11 (5-15); BUN 4 mg/dL (4-19); Carbon Dioxide 15.8 mmol/L (21.0-32.0); Chloride 108 mmol/L (98-108); Creatinine, Serum 0.61 mg/dL (0.70-1.20); EST Glomerular Filtration Rate 120 (>60); Estimated Creatinine Clearance 116.69 ml/min (50-250); Glucose 114 mg/dL (70-99); Potassium 3.2 mmol/L (3.3-5.1); Sodium Level 135 mmol/L (133-145)
--- NOTE | 2024-09-28 01:05 | PCM.HOSP.N ---
Hospitalist Note Patient with AG closed x 2, episodes of symptomatic hypoglycemia now, will d/c drip, allow ADA diet, change to accu checks w/ ISS, restart longacting in AM since hypoglycemia present if appropriate.
[2024-09-28 05:49] LABS: Absolute Lymphocyte Count 1.97 X10^3/uL (0.83-4.51); Absolute Neutrophil Count 3.8 X10^3/uL (2.0-7.7); Basophil# 0.04 X10^3/uL; Basophil% 0.6 % (0-1); Eosinophil# 0.07 X10^3/uL; Eosinophils% 1.1 % (0-5); Hematocrit 35.9 % (37-47); Hemoglobin 11.8 g/dL (12.0-15.0); Lymphocyte # 1.97 X10^3/ul (0.83-4.51); Lymphocyte % 30.8 % (19-41); Mean Corp Hgb Conc 32.9 g/dL (32-36); Mean Corpuscular Hgb 29.2 pg (27.0-32.0); Mean Corpuscular Volume 88.9 fL (81-99); Mean Platelet Vol. 9.1 fl (6.2-12.0); Monocyte# 0.48 X10^3/uL; Monocyte% 7.5 % (0-10); NRBC Flagged by Analyzer 0 % (0-5); Neutrophil # 3.82 X10^3/uL (2.7-7.7); Neutrophil % 59.7 % (47-70); Platelet Count 312 K/mm3 (150-450); RBC Distribution Width CV 16.2 % (11.6-14.6); RBC Distribution Width SD 53.1 fl (35.1-43.9); Red Blood Count 4.04 M/mm3 (4.2-5.4); White Blood Count 6.4 K/mm3 (4.4-11.0)
[2024-09-28 06:23] LABS: Anion Gap 15 (5-15); BUN 4 mg/dL (4-19); BUN/Creat Ratio 5.5 RATIO (10-20); Carbon Dioxide 14.7 mmol/L (21.0-32.0); Chloride 104 mmol/L (98-108); Creatinine, Serum 0.65 mg/dL (0.70-1.20); EST Glomerular Filtration Rate 119 (>60); Estimated Creatinine Clearance 109.51 ml/min (50-250); Glucose 272 mg/dL (70-99); Potassium 3.6 mmol/L (3.3-5.1); Sodium Level 133 mmol/L (133-145)
[2024-09-28 08:10] LABS: Bedside Glucose 250 mg/dL (74-106)
[2024-09-28] MEDS: Insulin Lispro 100 UNIT/ML INSULN.PEN SC (08:32)
--- NOTE | 2024-09-28 09:00 | DCINST_ITS ---
Discharge Instructions Diet Discharge Diet: Carb Control Diet DC O2, CPAP, BIPAP needs Home O2 Discharge instructions: No Dressing / Incision Discharge Activity: Return to Normal Activity Dressing / Incision Call your doctor if you observe: Fever of 101 or Higher, Shortness of breath, Dizziness, Fainting spells, Swelling in the ankles, Chest pain and Increased palpitations (irregular heartbeat) Follow Up Care Test Results: Test results from this visit will be discussed in further detail at your follow- up appointment, if applicable. Discharge Plan Admission Admit Date/Time: 09/26/24 11:04 Attending Provider: Bryce Julien Primary Care Provider: Meena Flowers Consulting Providers: Maggie Reed Instructions Additional Instructions / Restrictions: Follow-up with your PCP in 3 to 5 days. Check your blood sugars 2-3 times daily over the next couple of days to make sure normalization of your readings. Discharge Orders/Prescriptions Prescriptions: Continued insulin aspart U-100 [Novolog FlexPen U-100 Insulin] 100 unit/mL (3 mL) insulin pen See Protocol SUBCUT TID PRN (Reason: Hyperglycemia) Protocol: 6. Sliding Scale Insulin Custom Condition: mg/dl range Dose/Route: Number of Units Condition: 150-199 Dose/Route: 2 Condition: 200-250 Dose/Route: 4 Condition: 251-300 Dose/Route: 6 Condition: 301-349 Dose/Route: 8 Condition: 350-399 Dose/Route: 10 Condition: 400+ Dose/Route: 12 Protocol Text: Custom Sliding Scale insulin glargine-yfgn 100 unit/mL (3 mL) Insulin Pen 30 unit subcut BID Qty: 0 0RF Referrals / Follow Up: Meena Flowers DO [Primary Care Provider] - Within 1 Week Disposition Disposition (needs filled in before D/C Order can be placed): Home, Self Care
[2024-09-28] MEDS: Enoxaparin 40 MG/0.4 ML Syringe SC (09:06)
[2024-09-28] MEDS: Ceftriaxone 1 GM/50 ML BAG IV (09:07)
[2024-09-28] MEDS: 0.9% Saline Lock 10 ML Syringe IV ×2 (09:07→10:00)
[2024-09-28] MEDS: Insulin Glargine-YFGN 100 UNIT/ML Pen 30 UNIT SC (09:21)
--- NOTE | 2024-09-28 13:10 | DS.PCM_ITS ---
Providers Date of Admission: 09/26/24 Primary Care Physician: Dr. Meena Flowers DO Reason For Visit: DKA Diagnosis Discharge Diagnosis (1) DKA (diabetic ketoacidosis): Status: Acute Code(s): E11.10 - Type 2 diabetes mellitus with ketoacidosis without coma Medications at Discharge Home Medications insulin aspart U-100 100 unit/mL (3 mL) subcutaneous pen (Novolog FlexPen U-100 Insulin aspart) See Protocol subcut TID PRN Hyperglycemia 02/02/22 insulin glargine-yfgn 100 unit/mL (3 mL) subcutaneous pen 30 unit (0.3 mL) subcut BID diabete #0 mL 04/05/24 Hospital Course Operations None Procedures None Summary of Care Provided Minutes Spent on Discharge: 35 Hospital Course: Per HPI: BRETT BOBBY, is a 33 F with a PMH of type 1 diabetes mellitus who presents via the ED on 09/26/2024 with a complaint of elevated blood sugars. She woke up at ~ 3:30am on the day of admission with vomiting; she then fell short of breath and had not been able to keep anything down orally. She felt like she was in DKA. She denied any fever, chills, cough, chest pain, palpitations, dizziness or any urinary symptoms. She said she had a recurrent Bartholin cyst recently which drained spontaneously. She also denies any urinary symptoms. Vitals in the ED were BP of 116/78, OH of 121, RR of 16 and temp of 98F. She was saturating at 98% on room air. CBC was pending as well as CMP. VBG showed pH ob 7.06, pO2 of 157 and bicarb of 5. Urine tox showed glucosa of 1000mg/dl and negative nitrites. she had 1+ bactereia in her urine. POC glucose was 341. She is being admitted to be managed for DKA and probable UTI. Hospital Course: 1. DKA?33-year-old female presented to the hospital with recurrent episode of DKA. She had been hospitalized in March for DKA secondary to a faulty blood sugar monitor and now she double checks some of her readings on fingerstick. She feels much better today and her lab work has improved. Her bicarb is still low however we have been having issues specifically with anion gap and bicarb evaluations in the hospital so given that clinically she is feeling much better and her sugars are controlled and she is tolerating a diet I discussed with her the possibility of discharge today and she expressed understanding of the risks and benefits of going home and would like to go home today. No changes were made to her insulin, she was given IV Rocephin for possible UTI, she completed 3 days of IV Rocephin though urine culture shows no growth. I did give her the option to stay 1 more day to make sure that labs continue to improve however given how well she was feeling she would prefer to go home. I do recommend she follow-up with her PCP in 3 to 5 days for outpatient monitoring and evaluation of her blood sugar and BMP. Physical Exam Narrative General: Alert, Oriented x3, Cooperative, No apparent distress HEENT: Atraumatic, PERRLA, EOMI, Normocephalic Oral: Moist Mucosa Neck: Supple, No JVD Lungs: Diminished, Normal air movement, No rhonchi, No wheeze, No rales Cardiovascular: Tachycardic, Regular Rhythm, Normal S1, Normal S2, No murmurs Abdomen: Soft, Non Tender, Non-Distended, No Hepato-splenomegaly Extremities: No edema, Capillary Refill Less than 3 Seconds Skin: No rashes, No breakdown Musculoskeletal: No Tenderness to Palpation of Joints or Extremities Neurological: No focal neurological deficits, Motor Exam 5/5 strength throughout, Sensory exam intact to light touch and pain Psych/Mental Status: Normal Affect, Appropriate Weight / BMI Weight Weight: 155 lb 6.814 oz Body Mass Index (BMI) 29.3 ABG / Lab / Microbiology Data 09/28/24 05:35 09/28/24 05:35 Laboratory: Laboratory Results - last 24 hr 09/27/24 00:20: Anion Gap 18 H 09/27/24 13:10: POC Glucose 190 H 09/27/24 14:00: POC Glucose 172 H 09/27/24 15:04: POC Glucose 216 H 09/27/24 16:10: Sodium 132 L, Potassium 3.5, Chloride 104, Carbon Dioxide 12.3 L , Anion Gap 16 H, BUN 7, Creatinine 0.76, Estim Creat Clear Calc 93.66, Est GFR (MDRD) Non-Af 106, BUN/Creatinine Ratio 9.0 L, Glucose 245 H, Calcium 8.0 09/27/24 16:11: POC Glucose 229 H 09/27/24 17:23: POC Glucose 207 H 09/27/24 18:09: POC Glucose 171 H 09/27/24 18:58: POC Glucose 111 H 09/27/24 19:44: POC Glucose 140 H 09/27/24 19:50: Sodium 131 L, Potassium 6.1 H*, Chloride 105, Carbon Dioxide 15.2 L, Anion Gap 11, BUN 5, Creatinine 0.80, Estim Creat Clear Calc 88.97, Est GFR (MDRD) Non-Af 99, BUN/Creatinine Ratio 6.8 L, Glucose 127 H, Calcium 7.8 09/27/24 20:59: POC Glucose 115 H 09/27/24 22:01: POC Glucose 117 H 09/27/24 22:58: POC Glucose 123 H 09/27/24 23:57: POC Glucose 106 09/28/24 00:00: Sodium 135, Potassium 3.2 L, Chloride 108, Carbon Dioxide 15.8 L , Anion Gap 11, BUN 4, Creatinine 0.61 L, Estim Creat Clear Calc 116.69, Est GFR (MDRD) Non-Af 120, BUN/Creatinine Ratio 7.0 L, Glucose 114 H, Calcium 8.0 09/28/24 00:27: POC Glucose 85 09/28/24 05:35: WBC 6.4, RBC 4.04 L, Hgb 11.8 L, Hct 35.9 L, MCV 88.9 D, MCH 29.2, MCHC 32.9, RDW Std Deviation 53.1 H, RDW Coeff of Bret 16.2 H, Plt Count 312, MPV 9.1, Immature Gran % (Auto) 0.300, Neut % (Auto) 59.7, Lymph % (Auto) 30.8, [place] % (Auto) 7.5, Eos % (Auto) 1.1, Baso % (Auto) 0.6, Absolute Neuts (auto) 3.8, Absolute Lymphs (auto) 1.97, Nucleated RBC % 0, Sodium 133, Potassium 3.6, Chloride 104, Carbon Dioxide 14.7 L, Anion Gap 15, BUN 4, C reatinine 0.65 L, Estim Creat Clear Calc 109.51, Est GFR (MDRD) Non-Af 119, B UN/Creatinine Ratio 5.5 L, Glucose 272 H, Calcium 8.0 09/28/24 07:49: POC Glucose 250 H Microbiology: Microbiology 09/27/24 10:15 Urine, Clean Catch Urine Culture - Preliminary Culture exhibits no growth. D/C Instructions Discharge Diet: Carb Control Diet Call your doctor if you observe: Fever of 101 or Higher, Shortness of breath, Dizziness, Fainting spells, Swelling in the ankles, Chest pain and Increased palpitations (irregular heartbeat) DC O2, CPAP, BIPAP Needs Home O2 Discharge instructions: No Meaningful Use Info Meaningful Use Meaningful Use Diagnoses (Choose all that apply): None applicable Ischemic Stroke Statin Dosing Therapy Reference: STATIN DOSE THERAPY REFERENCE: * Patients > 75 years receive moderate or high dose statin therapy. * Patients 75 years or YOUNGER should receive HIGH intensity statin dose unless contraindicated. You will be required to document reason for non-treatment if statin daily dose does not meet guidelines. HIGH DOSE STATIN THERAPY DAILY Atorvastatin > than or = to 40 mg Rosuvastatin > than or = to 20 mg Amlodipine + Atorvastatin > than or = to 2.5/40 mg Ezetimibe + Simvastatin 10/80 mg Simvastatin 80mg Discharge Plan Admission Admit Date/Time: 09/26/24 11:04 Attending Provider: Bryce Julien Primary Care Provider: Meena Flowers Consulting Providers: Maggie Reed Instructions Additional Instructions / Restrictions: Follow-up with your PCP in 3 to 5 days. Check your blood sugars 2-3 times daily over the next couple of days to make sure normalization of your readings. Discharge Orders/Prescriptions Prescriptions: Continued insulin aspart U-100 [Novolog FlexPen U-100 Insulin] 100 unit/mL (3 mL) insulin pen See Protocol SUBCUT TID PRN (Reason: Hyperglycemia) Protocol: 6. Sliding Scale Insulin Custom Condition: mg/dl range Dose/Route: Number of Units Condition: 150-199 Dose/Route: 2 Condition: 200-250 Dose/Route: 4 Condition: 251-300 Dose/Route: 6 Condition: 301-349 Dose/Route: 8 Condition: 350-399 Dose/Route: 10 Condition: 400+ Dose/Route: 12 Protocol Text: Custom Sliding Scale insulin glargine-yfgn 100 unit/mL (3 mL) Insulin Pen 30 unit subcut BID Qty: 0 0RF Referrals / Follow Up: Meena Flowers DO [Primary Care Provider] - Within 1 Week Disposition Disposition (needs filled in before D/C Order can be placed): Home, Self Care Charges/Coding Visit Charges Inpatient E&M: 91358 Disch Hosp >30min
== END 2024-09-28 10:45 | disposition home or self-care (01) | DRG 420 ==
LOC: ED 10:42 → ICU 11:33
PROVIDERS: Family Medicine; Admitting Provider Student in an Organized Health Care Education/Training Program; Emergency Provider Emergency Medicine; PCP Family Medicine; Visit Provider Family Medicine
DX: E10.10 Type 1 diabetes mellitus with ketoacidosis without coma (principal); E10.22 Type 1 diabetes mellitus with diabetic chronic kidney disease; N18.31 Chronic kidney disease, stage 3a; F17.200 Nicotine dependence, unspecified, uncomplicated; Z79.4 Long term (current) use of insulin; N39.0 Urinary tract infection, site not specified
CPT/HCPCS: 36415; 71045; 80048; 81001; 82010; 82803; 82962; 83036; 85025; 87086; 87088; 93005; 97802; 99285; 99406; A4216; J2405

== ENCOUNTER 2025-01-11 19:58 | Inpatient (IN) | payer MEDICAID, SELFPAY ==
[2025-01-11 19:59] VITALS: BP 134/96; PULSE 129; RESP 18; TEMP 36.7; O2SAT 98; BMI 28.1
--- NOTE | 2025-01-11 20:07 | EKG12_ITS ---
Test Reason : N/V Blood Pressure : */* mmHG Vent. Rate : 101 BPM Atrial Rate : 101 BPM P-R Int : 142 ms QRS Dur : 74 ms QT Int : 314 ms P-R-T Axes : 58 2 31 degrees QTcB Int : 407 ms Sinus tachycardia Nonspecific T wave abnormality Abnormal ECG Confirmed by CAMERON JENNINGS, EMILY ([id number]), purchasing expeditor JUANJO COVARRUBIAS ([id number]) on 01/13/2025 8:19:55 AM Referred By: Confirmed By: EMILY BARNES MD
--- NOTE | 2025-01-11 20:13 | EX.ED.DYSGE1 ---
HPI <MARTINEZ Sánchez - Last Filed: 01/11/25 21:47> History of Present Illness Chief Complaint: Nausea/Vomiting Narrative Narrative: 34-year-old female with type 1 diabetes presents with nausea, heart racing, and shortness of breath that started this morning. These are the typical symptoms she gets with DKA. She states her blood sugar this morning was good but before coming in it was 244. She takes Lantus 20 units twice a day and took it this morning. She did not eat so she did not take any NovoLog. She normally takes 10 units before each meal. She was admitted for DKA in September 2024. [facility] <MARTINEZ Sánchez - Last Filed: 01/11/25 21:47> [facility] Medical History (Updated 01/11/25 @ 22:[address] Andrew Cruz DO) Tobacco abuse Diabetes mellitus type 1, uncontrolled, insulin dependent Stage 3a chronic kidney disease (CKD) Home Medications ?Medication ?Instructions ?Recorded ?Last Taken ?Type insulin aspart U-100 100 unit/mL See Protocol subcut TID PRN 02/02/22 01/11/25 History (3 mL) subcutaneous pen (Novolog Hyperglycemia FlexPen U-100 Insulin aspart) insulin glargine-yfgn 100 unit/mL 24 unit subcut BID diabete 01/11/25 01/11/25 History (3 mL) subcutaneous pen potassium chloride 10 mEq 10 meq PO BID 01/11/25 01/11/25 History capsule,extended release Allergy/AdvReac Type Severity Reaction Status Date / Time bee venom protein (honey bee) Allergy Anaphylaxis Verified 01/11/25 19:59 Family History Grandmother Diabetes Hypertension Heart disease Grandfather Diabetes Colon cancer Surgical History Hx of tonsillectomy History of partial hysterectomy Social History household members: children current occupational exposures/hazards: No Smoking Status: Light Smoker (<10/day) alcohol intake: current alcohol intake frequency: holidays/special occasions only substance use type: does not use ROS <MARTINEZ Sánchez - Last Filed: 01/11/25 21:47> ROS ED ROS Narrative Constitutional: Negative for fever, chills, malaise. CVS: Positive for palpitations. No chest pain. Respiratory: Negative for cough. GI: Positive for nausea. No abdominal pain or vomiting. : Negative for dysuria. EXAM <MARTINEZ Sánchez - Last Filed: 01/11/25 21:47> Physical Exam Narrative Exam Narrative: CONST: Patient sitting in no acute distress. EYES: Normal inspection. NECK: Normal inspection. RESP: No respiratory distress, CTAB. CVS: Tachycardic with regular rhythm, no murmur, no gallop. ABD: Soft and nontender, no guarding or rebound, nondistended. SKIN: Color normal, no rash, warm, dry, intact. EXTREMITIES: Normal appearance, no pedal edema. NEURO: Alert and answering questions appropriately. PSYCH: Normal affect. Const Vital Signs: 01/11/25 19:59 01/11/25 20:33 01/11/25 22:00 Temperature 98.0 F Temperature Source Temporal Pulse Rate 129 H 96 118 H Respiratory Rate 18 Blood Pressure 134/96 H 120/69 143/82 H Blood Pressure Mean 108 86 102 Pulse Ox 98 Oxygen Delivery Method Room Air Room Air 01/11/25 22:07 Temperature 98 F Temperature Source Pulse Rate 112 H Respiratory Rate 22 H Blood Pressure 143/82 H Blood Pressure Mean 102 Pulse Ox 98 Oxygen Delivery Method <Dr. Chato Newberry MD - Last Filed: 01/11/25 22:31> Physical Exam Const Vital Signs: 01/11/25 19:59 01/11/25 20:33 01/11/25 22:00 Temperature 98.0 F Temperature Source Temporal Pulse Rate 129 H 96 118 H Respiratory Rate 18 Blood Pressure 134/96 H 120/69 143/82 H Blood Pressure Mean 108 86 102 Pulse Ox 98 Oxygen Delivery Method Room Air Room Air 01/11/25 22:07 Temperature 98 F Temperature Source Pulse Rate 112 H Respiratory Rate 22 H Blood Pressure 143/82 H Blood Pressure Mean 102 Pulse Ox 98 Oxygen Delivery Method MDM <MARTINEZ Sánchez - Last Filed: 01/11/25 21:47> MDM MDM Narrative Medical decision making narrative: Differential: Diabetic hyperglycemia versus DKA 34-year-old female with type 1 diabetes presents with concern she is in DKA due to nausea, palpitations, shortness of breath. She appears well and nontoxic. She is tachycardic at 129 with otherwise normal vital signs. Lungs are clear. Abdomen soft and nontender. She was ordered IV fluids and labs. Glucose 324. Bicarb is 12.3, anion gap 34. Ketones are positive. Sodium and potassium are normal. EKG is sinus tachycardia without hyperkalemic changes. I will order a venous blood gas, second liter of IV fluids, and an insulin drip. I paged the hospitalist for admission to the ICU for DKA. I have personally performed a face to face assessment of the patient and have reviewed the TARYN Note. I performed a substantive portion of the visit including all aspects of the following. My sheppard findings include: History is remarkable for vague central abdominal pain, nausea and vomiting, shortness of breath, slight increase in your patient and fruity taste to her breath. Patient denies dysuria hematuria. Patient denies diarrhea. Patient denies respiratory symptoms. She denies fever or chills. Exam is remarkable for tachycardia and elevated blood pressure. HEENT exam is remarkable for dry mucosa. Heart is regular without murmur, gallop or rub. Lungs are clear to auscultation. Abdomen is soft nontender. Bowel sounds are slightly diminished. She has no dermatologic lesions noted. Has a nonfocal neurologic exam. Medical Decision Making there is a fruity smell to the room. This may be due to DKA or her perfume. ED D DKA order set was initiated. She will receive a liter of normal saline wide open. Her heart rate did improve with IV fluids. Other additions or changes: [None] History & Record Review Discussion w/independent historian: Patient Additional record(s) reviewed:: Prior ED visit and Prior labs Lab Data Attestation: I reviewed the patient's lab results. Labs: Laboratory Results - last 24 hr 01/11/25 01/11/25 01/11/25 20:20 20:37 21:05 WBC 12.2 H RBC 4.45 Hgb 13.0 Hct 43.1 MCV 96.9 MCH 29.2 MCHC 30.2 L RDW Std Deviation 52.6 H RDW Coeff of Bret 14.6 Plt Count 365 MPV 10.2 Immature Gran % (Auto) 0.500 Neut % (Auto) 85.3 H Lymph % (Auto) 9.4 L [place] % (Auto) 4.1 Eos % (Auto) 0.0 Baso % (Auto) 0.7 Absolute Neuts (auto) 10.4 H Absolute Lymphs (auto) 1.14 Nucleated RBC % 0 Sodium 134 Potassium 5.1 Chloride 96 L Carbon Dioxide 4.3 L* Anion Gap 34 H BUN 7 Creatinine 0.85 Estim Creat Clear Calc 81.25 Est GFR (MDRD) Non-Af 91 BUN/Creatinine Ratio 8.1 L Glucose 324 H Calcium 9.7 b-Hydroxybutyric mmol/L 10.5 H POC Glucose 286 H ABG Data ABG results: ABG 01/11/25 22:17 Specimen Type BETHANY Sample Site Not entered VBG pH 7.02 L* VBG pO2 60 H VBG HCO3 6 L VBG Total CO2 6 L VBG O2 Sat (Calc) 77 H VBG Base Excess -25 L POC Mix VBG pCO2 Pt Tmp 22.4 L O2 Delivery Device Not entered Crit Call To/Read Back Yes Blood Gas Notified Whom Blood Gas Notified Time 22:19:19 EKG Initial EKG: Comments: Sinus tachycardia at 101 bpm Nonspecific T wave changes, no STEMI Prior EKG tracings: available for review Prior: Unchanged <Dr. Chato Newberry MD - Last Filed: 01/11/25 22:31> MDM MDM Narrative Medical decision making narrative: I have personally performed a face to face assessment of the patient and have reviewed the TARYN Note. I performed a substantive portion of the visit including all aspects of the following. My sheppard findings include: History is remarkable for vague central abdominal pain, nausea and vomiting, shortness of breath, slight increase in your patient and fruity taste to her breath. Patient denies dysuria hematuria. Patient denies diarrhea. Patient denies respiratory symptoms. She denies fever or chills. Exam is remarkable for tachycardia and elevated blood pressure. HEENT exam is remarkable for dry mucosa. Heart is regular without murmur, gallop or rub. Lungs are clear to auscultation. Abdomen is soft nontender. Bowel sounds are slightly diminished. She has no dermatologic lesions noted. Has a nonfocal neurologic exam. Medical Decision Making there is a fruity smell to the room. This may be due to DKA or her perfume. ED D DKA order set was initiated. She will receive a liter of normal saline wide open. Her heart rate did improve with IV fluids. Other additions or changes: [None] Lab Data Lab results narrative: Basic metabolic panel reveals a CO2 of 43 with an anion gap of 34. Blood sugar is 286 since patient's blood sugars less than 300 will review order set to determine if she needs to be placed on D5 normal saline as well as the insulin drip. Labs: Laboratory Results - last 24 hr 01/11/25 01/11/25 01/11/25 20:20 20:37 21:05 WBC 12.2 H RBC 4.45 Hgb 13.0 Hct 43.1 MCV 96.9 MCH 29.2 MCHC 30.2 L RDW Std Deviation 52.6 H RDW Coeff of Bret 14.6 Plt Count 365 MPV 10.2 Immature Gran % (Auto) 0.500 Neut % (Auto) 85.3 H Lymph % (Auto) 9.4 L [place] % (Auto) 4.1 Eos % (Auto) 0.0 Baso % (Auto) 0.7 Absolute Neuts (auto) 10.4 H Absolute Lymphs (auto) 1.14 Nucleated RBC % 0 Sodium 134 Potassium 5.1 Chloride 96 L Carbon Dioxide 4.3 L* Anion Gap 34 H BUN 7 Creatinine 0.85 Estim Creat Clear Calc 81.25 Est GFR (MDRD) Non-Af 91 BUN/Creatinine Ratio 8.1 L Glucose 324 H Calcium 9.7 b-Hydroxybutyric mmol/L 10.5 H POC Glucose 286 H ABG Data Attestation: I personally reviewed and interpreted this ABG as follows: Interpretation: VBG reveals a metabolic acidosis. pH is 7.02, pO2 60, bicarb 6, CO2 6, base excess -25. This is a venous blood gas. ABG results: ABG 01/11/25 22:17 Specimen Type BETHNAY Sample Site Not entered VBG pH 7.02 L* VBG pO2 60 H VBG HCO3 6 L VBG Total CO2 6 L VBG O2 Sat (Calc) 77 H VBG Base Excess -25 L POC Mix VBG pCO2 Pt Tmp 22.4 L O2 Delivery Device Not entered Crit Call To/Read Back Yes Blood Gas Notified Whom Blood Gas Notified Time 22:19:19 EKG Initial EKG: Attestation: I personally reviewed and interpreted this EKG as follows: Interpretation: Sinus Tachycardia (Rate is 101. There are some nonseptic ST-T wave changes noted. [place] interval is 142 ms. QRS duration 74 ms. QT is 314 ms. [place] is normal.) Management Discussion w/another healthcare provider: Hospitalist (Hospitalist was paged for admission to ICU on insulin drip for DKA) <Dr. Chato Newberry MD - Last Filed: 01/11/25 22:31> Critical Care Time Critical Care Time: Yes Critical care time (excluding procedures): 30-74 minutes (37), Including time spent: (History, physical, documentation, independent rotation laboratory results and treatment for DKA.), Discussing w/Patient &/or Family/Manager Cosmetics, Discussing w/Consultants and Arranging Admission or Transfer Discharge Plan Dx/Rx/DC Orders Clinical Impression: Diabetic keto-acidosis, Nausea & vomiting, Sinus tachycardia seen on cardiac rehabilitation specialist Disposition Disposition: Acute Care Hospital [facility]
[2025-01-11] MEDS: 0.9% Normal Saline (1000mL) 1,000 ML 999 ML IV ×2 (20:30→22:03)
--- OUTSIDE RECORDS SUMMARY | 2025-01-11 20:32 | XMS RPT_ITS | CCD ---
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 Dian Galan Admit Provider Dr. Dian Galan Attending Provider Dr. Dian Galan Other Provider Dr. Len Coyne Attending Provider Dr. Len Coyne Other Provider Dr. Michael Acosta Other Provider Dr. Meena Flowers Primary Care Provider [phone] Risa Gatica Emergency Provider [phone] David Miramontes Admit Provider Dr. David Miramontes Attending Provider Dr. David Miramontes Other Provider Dr. Douglas Serrano Attending Provider Dr. Douglas Serrano Other Provider Dr. Meena Flowers DO Primary Care Provider Everardo JENNINGS, Dr. Troncoso Emergency Provider Derek JENNINGS, Dr. Maggie Castro Admit Provider Derek JENNINGS, Dr. Maggie Castro Attending Provider Derek JENNINGS, Dr. Maggie Castro Other Provider [phone] Anaya JENNINGS, Dr. Bryce Henson Attending Provider Anaya JENNINGS, Dr. Bryce Henson Other Provider [phone] Adama JENNINGS, Dr. Dian Johns Attending Provider Bryce Julien Consulting Unavailable Tereletsanmol, Michael Attending Unavailable Bryce Julien F Admitting Unavailable Malys, Meena Primary Care Unavailable Tereletsky, Michael Consulting Unavailable Malys, Meena Primary Care Unavailable Koram, Maggie Gloria Admitting Unavailable Koram, Maggie Gloria Consulting Unavailable Koram, Maggie Gloria Attending Unavailable Malys, Meena Primary Care Unavailable Tereletsky, Michael Attending Unavailable Bryce Julien F Consulting Unavailable Bryce Julien F Admitting Unavailable KoBryce bean Attending Unavailable Malys, Meena Primary Care Unavailable Koram, Maggie Gloria Admitting Unavailable Koram, Maggie Gloria Consulting Unavailable Bryce Julien F Attending Unavailable Bryce Julien Consulting Unavailable Dian Galan Attending Unavailable Bryce Julien Attending Unavailable Allergies Allergy Classification Reported Allergen(s) Allergy Type Date of Onset Reaction(s) Facility (8 sources) bee venom protein (honey bee) Allergy to substance 02-03-2022 Anaphylaxis [facility] (1 source) bee venom protein (honey bee) Drug allergy (disorder) 09-26-2024 [facility] Repository Medications Current Medications Medication Drug Class(es) Dates Sig (Normalized) Sig (Original) Insulin Glargine-Yfgn (12 sources) Start: 05-25-2023 Insulin Glargine-Yfgn Active 24 UNIT SC WITH BREAKFAST May 25, 2023 1:00am Start: 05-25-2023 Insulin Glargi ne-Yfgn Active 24 UNIT SC WITH BREAKFAST May 25, 2023 12:00am Start: 02-03-2022 End: 05-25-2023 Insulin Glargine-Yfgn 100 un it/mL (3 mL) Insulin Pen Discontinued 25 U SC TWICE A DAY 0 February 03, 2022 12:00am May 25, 2023 9:22pm Start: 02-03-2022 End: 05-25-2023 Insulin Glargine-Yfgn Discon tinued 25 UNIT SC TWICE A DAY 0 February 03, 2022 12:00am May 25, 2023 9:22pm Start: 02-03-2022 End: 05-25-2023 Insulin Glargine-Yfgn Discon tinued 25 UNIT SC TWICE A DAY 0 February 02, 2022 11:00pm May 25, 2023 8:22pm Start: 02-03-2022 Insulin Glargi ne-Yfgn Active 25 UNIT SC TWICE A DAY 0 February 02, 2022 11:00pm Start: 02-03-2022 Insulin Glargi ne-Yfgn Active 25 UNIT SC TWICE A DAY 0 February 03, 2022 12:00am Insulin Glargine-Yfgn 100 unit/mL (3 mL) Insulin Pen (4 sources) Start: 04-05-2024 Insulin Glargi ne-Yfgn 100 unit/mL (3 mL) Insulin Pen Active 30 U SC TWICE A DAY 0 April 05, 2024 12:00am Start: 05-25-2023 End: 04-04-2024 Insulin Glargine-Yfgn 100 un it/mL (3 mL) Insulin Pen Discontinued 24 U SC WITH BREAKFAST May 25, 2023 1:00am April 04, 2024 10:36am Completed/Discontinued Medications Medication Drug Class(es) Dates Sig (Normalized) Sig (Original) 3 ml insulin aspart, human 100 unt/ml pen injector (20 sources) Insulin Analog Start: 05-25-2023 End: 04-04-2024 Insulin Aspart U-100 (Novolog Flexpen U-100 Insulin) 100 unit/mL (3 mL) insulin pen Discontinued 15 U SC AT BEDTIME May 25, 2023 1:00am April 04, 2024 10:35am Start: 02-03-2022 End: 05-25-2023 Insulin Aspart U-100 (Novolo g Flexpen U-100 Insulin) 100 unit/mL (3 mL) insulin pen Discontinued 10 U SC THREE TIMES A DAY 15 February 03, 2022 12:00am May 25, 2023 9:22pm Start: 02-02-2022 Insulin Aspart U-100 (Novolog Flexpen U-100 Insulin) 100 unit/mL (3 mL) insulin pen Active 0 sliding scale dose SC THREE TIMES A DAY as needed for Hyperglycemia February 02, 2022 12:00am Please contact the information source for Protocol details. Start: 02-02-2022 Insulin Aspart U-100 (Novolog Flexpen U-100 Insulin) 100 unit/mL (3 mL) insulin pen Active 0 sliding scale dose SC THREE TIMES A DAY February 02, 2022 12:00am 3 ml insulin glargine 100 unt/ml pen injector (10 sources) Insulin Analog Start: 04-04-2024 End: 04-05-2024 Insulin Glargine (Lantus Solostar U-100 Insulin) 100 unit/mL (3 mL) insulin pen Discontinued 24 U SC TWICE A DAY April 04, 2024 12:00am April 05, 2024 1:36pm Start: 06-10-2021 End: 02-03-2022 Insulin Glargine (Basaglar K wikpen U-100 Insulin) 100 unit/mL (3 mL) insulin pen Discontinued 15 U SC TWICE A DAY June 10, 2021 1:00am February 03, 2022 2:52pm potassium chloride 10 meq extended release oral tablet (16 sources) Start: 05-25-2023 End: 09-26-2024 take 2 tablets by mouth twice daily Potassium Chloride 10 mEq tablet extended release Discontinued 20 meq PO TWICE A DAY May 25, 2023 1:00am September 26, 2024 12:14pm Start: 05-25-2023 take 20 mEq by mouth twice daily Potassium Chloride Active 20 MEQ PO TWICE A DAY May 25, 2023 1:00am Start: 02-02-2022 Potassium Chlo ride (Klor-Con M20) 20 mEq tablet,ER particles/crystals Active 30 MEQ PO TWICE DAILY WITH MEALS February 02, 2022 6:39pm Start: 06-10-2021 End: 02-02-2022 Potassium Chloride (Klor-Con M20) 20 mEq Tablet,Er Particles/Crystals Discontinued 40 meq PO TWICE DAILY WITH MEALS June 10, 2021 1:00am February 02, 2022 7:39pm sulfamethoxazole 800 mg / trimethoprim 160 mg oral tablet (3 sources) Dihydrofolate Reductase Inhibitor Antibacterial, Sulfonamide Antimicrobial Start: 09-24-2023 End: 04-04-2024 Sulfamethoxazole-Trimethopri m (Bactrim Ds) 800-160 mg tablet Discontinued 1 {tbl} PO TWICE A DAY September 24, 2023 12:00am April 04, 2024 10:36am Problems Problem Classification Problem Date Documented Date Episodic/Chronic Acute and unspecified renal failure (8 sources) Injury of kidney; Translations: [Acute kidney failure, unspecified] 06-18-2021 Episodic Diabetes mellitus with complications (20 sources) Type 1 diabetes mellitus uncontrolled; Translations: [Uncontrolled insulin dependent type 1 diabetes mellitus] Onset: 09-30-2024 Chronic Diabetes mellitus without complication (3 sources) Hyperglycemia; Translations: [Hyperglycemia, unspecified] 09-24-2023 Episodic Diseases of white blood cells (8 sources) Leukocytosis; Translations: [Elevated white blood cell count, unspecified] 06-18-2021 Chronic Fluid and electrolyte disorders (9 sources) Hyperkalemia; Translations: [Hyperkalemia] Episodic Inflammatory diseases of female pelvic organs (20 sources) Abscess of left Bartholin's gland; Translations: [Abscess of Bartholin's gland] 11-16-2020 Episodic Nausea and vomiting (9 sources) Nausea and vomiting; Translations: [Nausea with vomiting, unspecified] Episodic Other female genital disorders (8 sources) Edema of vulva; Translations: [Other specified noninflammatory disorders of vulva and perineum] 06-18-2021 Episodic Other nutritional; endocrine; and metabolic disorders (8 sources) Hyperammonemia; Translations: [Disorder of urea cycle metabolism, unspecified] 06-18-2021 Chronic Residual codes; unclassified (5 sources) Tobacco user; Translations: [Tobacco use] 05-25-2023 Episodic Residual codes; unclassified (1 source) Tobacco use; Translations: [Tobacco use disorder] 05-26-2023 Episodic Respiratory failure; insufficiency; arrest (adult) (8 sources) Acute respiratory failure; Translations: [Acute respiratory failure, unspecified whether with hypoxia or hypercapnia] 06-18-2021 Episodic Sexually transmitted infections (not HIV or hepatitis) (8 sources) Gonococcal Bartholin's gland abscess; Translations: [Gonococcal infection of lower genitourinary tract with periurethral and accessory gland abscess] 11-16-2020 Episodic Skin and subcutaneous tissue infections (8 sources) Abscess; Translations: [Cutaneous abscess, unspecified] 11-14-2020 Episodic Urinary tract infections (3 sources) Urinary tract infectious disease; Translations: [Urinary tract infection, site not specified] 09-24-2023 Episodic Results Test Name Value Interpretation Reference Range Facility CBC W/Diff, Automatedon 03- Absolute Neut Normal 2.0-7.7 [facility] Comment on above: Result Comment: Canc elled via OM: Order cancelled - Patient discharged Performed By: #### [id number] #### [facility] [address] [place], [address] HCT Normal 37-47 [facility] Comment on above: Result Comment: Canc elled via OM: Order cancelled - Patient discharged Performed By: #### [id number] #### [facility] [address] [place], [address] HGB Normal 12.0-15.0 [facility] Comment on above: Result Comment: Canc elled via OM: Order cancelled - Patient discharged Performed By: #### [id number] #### [facility] [address] [place], [address] MCH Normal 27.0-32.0 [facility] Comment on above: Result Comment: Canc elled via OM: Order cancelled - Patient discharged Performed By: #### [id number] #### [facility] [address] [place], [address] MCHC Normal 32-36 [facility] Comment on above: Result Comment: Canc elled via OM: Order cancelled - Patient discharged Performed By: #### [id number] #### [facility] [address] [place], [address] MCV Normal 81-99 [facility] Comment on above: Result Comment: Canc elled via OM: Order cancelled - Patient discharged Performed By: #### [id number] #### [facility] [address] [place], [address] NEUT% Normal 47-70 [facility] Comment on above: Result Comment: Canc elled via OM: Order cancelled - Patient discharged Performed By: #### [id number] #### [facility] [address] [place], [address] PLT Normal 150-450 [facility] Comment on above: Result Comment: Canc elled via OM: Order cancelled - Patient discharged Performed By: #### [id number] #### [facility] [address] [place], [address] RBC Normal 4.2-5.4 [facility] Comment on above: Result Comment: Canc elled via OM: Order cancelled - Patient discharged Performed By: #### [id number] #### [facility] [address] [place], [address] RDW CV Normal 11.6-14.6 [facility] Comment on above: Result Comment: Canc elled via OM: Order cancelled - Patient discharged Performed By: #### [id number] #### [facility] [address] [place], [address] RDW SD Normal 35.1-43.9 [facility] Comment on above: Result Comment: Canc elled via OM: Order cancelled - Patient discharged Performed By: #### [id number] #### [facility] [address] [place], [address] WBC Normal 4.4-11.0 [facility] Comment on above: Result Comment: Canc elled via OM: Order cancelled - Patient discharged Performed By: #### [id number] #### [facility] [address] [place], [address] CBC W/Diff, Automatedon - Absolute Neut Normal 2.0-7.7 [facility] Comment on above: Result Comment: Canc elled via OM: Order cancelled - Patient discharged Performed By: #### [id number] #### [facility] [address] [place], [address] HCT Normal 37-47 [facility] Comment on above: Result Comment: Canc elled via OM: Order cancelled - Patient discharged Performed By: #### [id number] #### [facility] [address] [place], [address] HGB Normal 12.0-15.0 [facility] Comment on above: Result Comment: Canc elled via OM: Order cancelled - Patient discharged Performed By: #### [id number] #### [facility] [address] [place], [address] MCH Normal 27.0-32.0 [facility] Comment on above: Result Comment: Canc elled via OM: Order cancelled - Patient discharged Performed By: #### [id number] #### [facility] [address] [place], [address] MCHC Normal 32-36 [facility] Comment on above: Result Comment: Canc elled via OM: Order cancelled - Patient discharged Performed By: #### [id number] #### [facility] [address] [place], [address] MCV Normal 81-99 [facility] Comment on above: Result Comment: Canc elled via OM: Order cancelled - Patient discharged Performed By: #### [id number] #### [facility] [address] [place], [address] NEUT% Normal 47-70 [facility] Comment on above: Result Comment: Canc elled via OM: Order cancelled - Patient discharged Performed By: #### [id number] #### [facility] [address] [place], [address] PLT Normal 150-450 [facility] Comment on above: Result Comment: Canc elled via OM: Order cancelled - Patient discharged Performed By: #### L [id number] #### [facility] [address] [place], [address] RBC Normal 4.2-5.4 [facility] Comment on above: Result Comment: Canc elled via OM: Order cancelled - Patient discharged Performed By: #### L [id number] #### [facility] [address] [place], [address] RDW CV Normal 11.6-14.6 [facility] Comment on above: Result Comment: Canc elled via OM: Order cancelled - Patient discharged Performed By: #### L [id number] #### [facility] [address] [place], [address] RDW SD Normal 35.1-43.9 [facility] Comment on above: Result Comment: Canc elled via OM: Order cancelled - Patient discharged Performed By: #### L [id number] #### [facility] [address] [place], [address] WBC Normal 4.4-11.0 [facility] Comment on above: Result Comment: Canc elled via OM: Order cancelled - Patient discharged Performed By: #### L [id number] #### [facility] [address] [place], [address] CBC W/Diff, Automatedon 03-2 Absolute Neut Normal 2.0-7.7 [facility] Comment on above: Result Comment: Canc elled via OM: Order cancelled - Patient discharged Performed By: #### L [id number] #### [facility] [address] [place], [address] HCT Normal 37-47 [facility] Comment on above: Result Comment: Canc elled via OM: Order cancelled - Patient discharged Performed By: #### L [id number] #### [facility] [address] [place], [address] HGB Normal 12.0-15.0 [facility] Comment on above: Result Comment: Canc elled via OM: Order cancelled - Patient discharged Performed By: #### L [id number] #### [facility] [address] [place], [address] MCH Normal 27.0-32.0 [facility] Comment on above: Result Comment: Canc elled via OM: Order cancelled - Patient discharged Performed By: #### L [id number] #### [facility] [address] [place], [address] MCHC Normal 32-36 [facility] Comment on above: Result Comment: Canc elled via OM: Order cancelled - Patient discharged Performed By: #### L [id number] #### [facility] [address] [place], [address] MCV Normal 81-99 [facility] Comment on above: Result Comment: Canc elled via OM: Order cancelled - Patient discharged Performed By: #### L [id number] #### [facility] [address] [place], [address] NEUT% Normal 47-70 [facility] Comment on above: Result Comment: Canc elled via OM: Order cancelled - Patient discharged Performed By: #### L [id number] #### [facility] [address] [place], [address] PLT Normal 150-450 [facility] Comment on above: Result Comment: Canc elled via OM: Order cancelled - Patient discharged Performed By: #### L [id number] #### [facility] [address] [place], [address] RBC Normal 4.2-5.4 [facility] Comment on above: Result Comment: Canc elled via OM: Order cancelled - Patient discharged Performed By: #### L [id number] #### [facility] [address] [place], [address] RDW CV Normal 11.6-14.6 [facility] Comment on above: Result Comment: Canc elled via OM: Order cancelled - Patient discharged Performed By: #### L [id number] #### [facility] [address] [place], [address] RDW SD Normal 35.1-43.9 [facility] Comment on above: Result Comment: Canc elled via OM: Order cancelled - Patient discharged Performed By: #### L [id number] #### [facility] [address] [place], [address] WBC Normal 4.4-11.0 [facility] Comment on above: Result Comment: Canc elled via OM: Order cancelled - Patient discharged Performed By: #### L [id number] #### [facility] [address] [place], [address] CBC W/Diff, Automatedon 03-2 -2024 Absolute Neut Normal 2.0-7.7 [facility] Comment on above: Result Comment: Canc elled via OM: Order cancelled - Patient discharged Performed By: #### L [id number] #### [facility] [address] [place], [address] HCT Normal 37-47 [facility] Comment on above: Result Comment: Canc elled via OM: Order cancelled - Patient discharged Performed By: #### L [id number] #### [facility] [address] [place], [address] HGB Normal 12.0-15.0 [facility] Comment on above: Result Comment: Canc elled via OM: Order cancelled - Patient discharged Performed By: #### L [id number] #### [facility] [address] [place], [address] MCH Normal 27.0-32.0 [facility] Comment on above: Result Comment: Canc elled via OM: Order cancelled - Patient discharged Performed By: #### L [id number] #### [facility] [address] [place], [address] MCHC Normal 32-36 [facility] Comment on above: Result Comment: Canc elled via OM: Order cancelled - Patient discharged Performed By: #### L [id number] #### [facility] [address] [place], [address] MCV Normal 81-99 [facility] Comment on above: Result Comment: Canc elled via OM: Order cancelled - Patient discharged Performed By: #### L [id number] #### [facility] [address] [place], [address] NEUT% Normal 47-70 [facility] Comment on above: Result Comment: Canc elled via OM: Order cancelled - Patient discharged Performed By: #### L [id number] #### [facility] [address] [place], [address] PLT Normal 150-450 [facility] Comment on above: Result Comment: Canc elled via OM: Order cancelled - Patient discharged Performed By: #### L [id number] #### [facility] [address] [place], [address] RBC Normal 4.2-5.4 [facility] Comment on above: Result Comment: Canc elled via OM: Order cancelled - Patient discharged Performed By: #### L [id number] #### [facility] [address] [place], [address] RDW CV Normal 11.6-14.6 [facility] Comment on above: Result Comment: Canc elled via OM: Order cancelled - Patient discharged Performed By: #### L [id number] #### [facility] [address] [place], [address] RDW SD Normal 35.1-43.9 [facility] Comment on above: Result Comment: Canc elled via OM: Order cancelled - Patient discharged Performed By: #### L [id number] #### [facility] [address] [place], [address] WBC Normal 4.4-11.0 [facility] Comment on above: Result Comment: Canc elled via OM: Order cancelled - Patient discharged Performed By: #### L [id number] #### [facility] [address] [place], [address] CBC W/Diff, Automatedon 03-2 Absolute Neut Normal 2.0-7.7 [facility] Comment on above: Result Comment: Canc elled via OM: Order cancelled - Patient discharged Performed By: #### L 501.080 #### [facility] [address] [place], [address] HCT Normal 37-47 [facility] Comment on above: Result Comment: Canc elled via OM: Order cancelled - Patient discharged Performed By: #### L [id number] #### [facility] [address] [place], [address] HGB Normal 12.0-15.0 [facility] Comment on above: Result Comment: Canc elled via OM: Order cancelled - Patient discharged Performed By: #### L [id number] #### [facility] [address] [place], [address] MCH Normal 27.0-32.0 [facility] Comment on above: Result Comment: Canc elled via OM: Order cancelled - Patient discharged Performed By: #### L 501.080 #### [facility] [address] [place], [address] MCHC Normal 32-36 [facility] Comment on above: Result Comment: Canc elled via OM: Order cancelled - Patient discharged Performed By: #### L 501.080 #### [facility] [address] [place], [address] MCV Normal 81-99 [facility] Comment on above: Result Comment: Canc elled via OM: Order cancelled - Patient discharged Performed By: #### L 501.080 #### [facility] [address] [place], [address] NEUT% Normal 47-70 [facility] Comment on above: Result Comment: Canc elled via OM: Order cancelled - Patient discharged Performed By: #### L 501.080 #### [facility] [address] [place], [address] PLT Normal 150-450 [facility] Comment on above: Result Comment: Canc elled via OM: Order cancelled - Patient discharged Performed By: #### L 501.080 #### [facility] [address] [place], [address] RBC Normal 4.2-5.4 [facility] Comment on above: Result Comment: Canc elled via OM: Order cancelled - Patient discharged Performed By: #### L 501.080 #### [facility] [address] [place], [address] RDW CV Normal 11.6-14.6 [facility] Comment on above: Result Comment: Canc elled via OM: Order cancelled - Patient discharged Performed By: #### L 501.080 #### [facility] [address] [place], [address] RDW SD Normal 35.1-43.9 [facility] Comment on above: Result Comment: Canc elled via OM: Order cancelled - Patient discharged Performed By: #### L 501.080 #### [facility] [address] [place], [address] WBC Normal 4.4-11.0 [facility] Comment on above: Result Comment: Canc elled via OM: Order cancelled - Patient discharged Performed By: #### L [id number] #### [facility] [address] [place], [address] Urine Cultureon 09-30-2024 URC Below infection level. Mixed Gram Pos Gram Neg Org [place] Count 1000-10,000 MIXC Mixed contaminants. Submit a new specimen if indicated. Normal [facility] Comment on above: Performed By: #### L 501.080 #### [facility] [address] [place], [address] Basic Metabolic Profile (BMP )on 09-29-2024 BUN Normal 4-19 [facility] Comment on above: Result Comment: Canc elled via OM: Order cancelled - Patient discharged Performed By: #### L [id number] #### [facility] [address] [place], [address] BUN/CRE Normal 10-20 [facility] Comment on above: Result Comment: Canc elled via OM: Order cancelled - Patient discharged Performed By: #### L [id number] #### [facility] [address] [place], [address] Calcium Normal 7.6-11.0 [facility] Comment on above: Result Comment: Canc elled via OM: Order cancelled - Patient discharged Performed By: #### L [id number] #### [facility] [address] [place], [address] CL Normal 98-108 [facility] Comment on above: Result Comment: Canc elled via OM: Order cancelled - Patient discharged Performed By: #### L [id number] #### [facility] [address] [place], [address] CO2 Normal 21.0-32.0 [facility] Comment on above: Result Comment: Canc elled via OM: Order cancelled - Patient discharged Performed By: #### L [id number] #### [facility] [address] [place], [address] CREAT,SERUM Normal 0.70-1.20 [facility] Comment on above: Result Comment: Canc elled via OM: Order cancelled - Patient discharged Performed By: #### L [id number] #### [facility] [address] [place], [address] eGFR Normal >60 [facility] Comment on above: Result Comment: Canc elled via OM: Order cancelled - Patient discharged Performed By: #### L 500.2500 #### [facility] [address] [place], [address] GAP Normal 5-15 [facility] Comment on above: Result Comment: Canc elled via OM: Order cancelled - Patient discharged Performed By: #### L 500.2500 #### [facility] [address] [place], [address] GLU Normal 70-99 [facility] Comment on above: Result Comment: Canc elled via OM: Order cancelled - Patient discharged Performed By: #### L 500.2500 #### [facility] [address] [place], [address] Potassium Normal 3.3-5.1 [facility] Comment on above: Result Comment: Canc elled via OM: Order cancelled - Patient discharged Performed By: #### L 500.2500 #### [facility] [address] [place], [address] Basic Metabolic Profile (BMP) Normal 133-145 [facility] Comment on above: Result Comment: Canc elled via OM: Order cancelled - Patient discharged Performed By: #### L 500.2500 #### [facility] [address] [place], [address] CBC W/Diff, Automatedon 03-2 4-2025 Absolute Neut Normal 2.0-7.7 [facility] Comment on above: Result Comment: Canc elled via OM: Order cancelled - Patient discharged Performed By: #### L 501.080 #### [facility] [address] [place], [address] HCT Normal 37-47 [facility] Comment on above: Result Comment: Canc elled via OM: Order cancelled - Patient discharged Performed By: #### L 501.080 #### [facility] [address] [place], [address] HGB Normal 12.0-15.0 [facility] Comment on above: Result Comment: Canc elled via OM: Order cancelled - Patient discharged Performed By: #### L 501.080 #### [facility] [address] [place], [address] MCH Normal 27.0-32.0 [facility] Comment on above: Result Comment: Canc elled via OM: Order cancelled - Patient discharged Performed By: #### L 501.080 #### [facility] [address] [place], [address] MCHC Normal 32-36 [facility] Comment on above: Result Comment: Canc elled via OM: Order cancelled - Patient discharged Performed By: #### L 501.080 #### [facility] [address] [place], [address] MCV Normal 81-99 [facility] Comment on above: Result Comment: Canc elled via OM: Order cancelled - Patient discharged Performed By: #### L 501.080 #### [facility] [address] [place], [address] NEUT% Normal 47-70 [facility] Comment on above: Result Comment: Canc elled via OM: Order cancelled - Patient discharged Performed By: #### L 501.080 #### [facility] [address] [place], [address] PLT Normal 150-450 [facility] Comment on above: Result Comment: Canc elled via OM: Order cancelled - Patient discharged Performed By: #### L 501.080 #### [facility] [address] [place], [address] RBC Normal 4.2-5.4 [facility] Comment on above: Result Comment: Canc elled via OM: Order cancelled - Patient discharged Performed By: #### L 501.080 #### [facility] [address] [place], [address] RDW CV Normal 11.6-14.6 [facility] Comment on above: Result Comment: Canc elled via OM: Order cancelled - Patient discharged Performed By: #### L 501.080 #### [facility] [address] [place], [address] RDW SD Normal 35.1-43.9 [facility] Comment on above: Result Comment: Canc elled via OM: Order cancelled - Patient discharged Performed By: #### L 501.080 #### [facility] [address] [place], [address] WBC Normal 4.4-11.0 [facility] Comment on above: Result Comment: Canc elled via OM: Order cancelled - Patient discharged Performed By: #### L 501.080 #### [facility] [address] [place], [address] Absolute neutrophil countOrd ered By: Maggie Reed on 09-28-2024 Neutrophils (Bld) [#/Vol] 3.8 10*3/uL 2.0-7.7 [facility] Anion gap in Serum or Plasma Ordered By: Dian Galan on 09-28-2024 Anion gap [Moles/Vol] 15 mmol/L 5-15 [facility] BUN/creatinine ratioOrdered By: Dian Galan on 09-28-2024 Urea nitrogen/Creatinine [Mass ratio] 5.5 mg/mg Low 10-20 [facility] Basic Metabolic Profile (BMP )on 09-28-2024 BUN Normal 4-19 [facility] Comment on above: Result Comment: Canc elled via OM: MD Ordered Performed By: #### L 500.2500 #### [facility] [address] [place], [address] Performed By: #### L 501.080 #### [facility] [address] [place], [address] BUN/CRE Normal 10-20 [facility] Comment on above: Result Comment: Canc elled via OM: MD Ordered Performed By: #### L 500.2500 #### [facility] [address] [place], [address] Performed By: #### L 501.080 #### [facility] [address] [place], [address] Calcium Normal 7.6-11.0 [facility] Comment on above: Result Comment: Canc elled via OM: MD Ordered Performed By: #### L [id number] #### [facility] [address] [place], [address] Performed By: #### L 501.080 #### [facility] [address] [place], [address] CL Normal 98-108 [facility] Comment on above: Result Comment: Canc elled via OM: MD Ordered Performed By: #### L 500.2500 #### [facility] [address] [place], [address] Performed By: #### L 501.080 #### [facility] [address] [place], [address] CO2 Normal 21.0-32.0 [facility] Comment on above: Result Comment: Canc elled via OM: MD Ordered Performed By: #### L [id number] #### [facility] [address] [place], [address] Performed By: #### L 501.080 #### [facility] [address] [place], [address] CREAT,SERUM Normal 0.70-1.20 [facility] Comment on above: Result Comment: Canc elled via OM: MD Ordered Performed By: #### L 500.2500 #### [facility] [address] [place], [address] Performed By: #### L 501.080 #### [facility] [address] [place], [address] eGFR Normal >60 [facility] Comment on above: Result Comment: Canc elled via OM: MD Ordered Performed By: #### L [id number] #### [facility] [address] [place], [address] Performed By: #### L 501.080 #### [facility] [address] [place], [address] GAP Normal 5-15 [facility] Comment on above: Result Comment: Canc elled via OM: MD Ordered Performed By: #### L [id number] #### [facility] [address] [place], [address] Performed By: #### L 501.080 #### [facility] [address] [place], [address] GLU Normal 70-99 [facility] Comment on above: Result Comment: Canc elled via OM: MD Ordered Performed By: #### L [id number] #### [facility] [address] [place], [address] Performed By: #### L 501.080 #### [facility] [address] [place], [address] Potassium Normal 3.3-5.1 [facility] Comment on above: Result Comment: Can elled via OM: MD Ordered Performed By: #### L [id number] #### [facility] [address] [place], [address] Performed By: #### L 501.080 #### [facility] [address] [place], [address] Basic Metabolic Profile (BMP) Normal 133-145 [facility] Comment on above: Result Comment: Can elled via OM: MD Ordered Performed By: #### L [id number] #### [facility] [address] [place], [address] Performed By: #### L 501.080 #### [facility] [address] [place], [address] BUN/CRE 5.5 RATIO Low 10-20 [facility] Comment on above: Performed By: #### L [id number] #### [facility] [address] [place], [address] Calcium [Mass/Vol] 8.0 mg/dL Normal 7.6-11.0 [facility] Comment on above: Performed By: #### L [id number] #### [facility] [address] [place], [address] Chloride [Moles/Vol] 104 mmol/L Normal 98-108 [facility] Comment on above: Performed By: #### L [id number] #### [facility] [address] [place], [address] CO2 [Moles/Vol] 14.7 mmol/L Low 21.0-32.0 [facility] Comment on above: Performed By: #### L [id number] #### [facility] [address] [place], [address] Creatinine [Mass/Vol] 0.65 mg/dL Low 0.70-1.20 [facility] Comment on above: Performed By: #### L [id number] #### [facility] [address] [place], [address] ECRCL 109.51 ml/min Normal 50-250 [facility] Comment on above: Performed By: #### L [id number] #### [facility] [address] [place], [address] GAP 15 Normal 5-15 [facility] Comment on above: Performed By: #### L [id number] #### [facility] [address] [place], [address] GFR/1.73 sq M.predicted among non-blacks MDRD (S/P/Bld) [Vol rate/Area] 119 mL/min/{1.73_m2} Normal >60 [facility] Comment on above: Result Comment: mL/m in/1.73m2 CKD-EPI Creatinine Equation (2020) Performed By: #### L [id number] #### [facility] [address] [place], [address] Glucose [Mass/Vol] 272 mg/dL High 70-99 [facility] Comment on above: Performed By: #### L [id number] #### [facility] [address] [place], [address] Potassium [Moles/Vol] 3.6 mmol/L Normal 3.3-5.1 [facility] Comment on above: Performed By: #### [id number] #### [facility] [address] [place], [address] Sodium [Moles/Vol] 133 mmol/L Normal 133-145 [facility] Comment on above: Performed By: #### [id number] #### [facility] [address] [place], [address] Urea nitrogen [Mass/Vol] 4 mg/dL Normal 4-19 [facility] Comment on above: Performed By: #### L [id number] #### [facility] [address] [place], [address] BUN/CRE 7.0 RATIO Low 10-20 [facility] Comment on above: Performed By: #### L 501.080 #### [facility] [address] [place], [address] Calcium [Mass/Vol] 8.0 mg/dL Normal 7.6-11.0 [facility] Comment on above: Performed By: #### L 501.080 #### [facility] [address] [place], [address] Chloride [Moles/Vol] 108 mmol/L Normal 98-108 [facility] Comment on above: Performed By: #### L 501.080 #### [facility] [address] [place], [address] CO2 [Moles/Vol] 15.8 mmol/L Low 21.0-32.0 [facility] Comment on above: Performed By: #### L 501.080 #### [facility] [address] [place], [address] Creatinine [Mass/Vol] 0.61 mg/dL Low 0.70-1.20 [facility] Comment on above: Performed By: #### L 501.080 #### [facility] [address] [place], [address] ECRCL 116.69 ml/min Normal 50-250 [facility] Comment on above: Performed By: #### L 501.080 #### [facility] [address] [place], [address] GAP 11 Normal 5-15 [facility] Comment on above: Performed By: #### L 501.080 #### [facility] [address] [place], [address] GFR/1.73 sq M.predicted among non-blacks MDRD (S/P/Bld) [Vol rate/Area] 120 mL/min/{1.73_m2} Normal >60 [facility] Comment on above: Result Comment: mL/m in/1.73m2 CKD-EPI Creatinine Equation (2020) Performed By: #### L 501.080 #### [facility] [address] [place], [address] Glucose [Mass/Vol] 114 mg/dL High 70-99 [facility] Comment on above: Performed By: #### L 501.080 #### [facility] [address] [place], [address] Potassium [Moles/Vol] 3.2 mmol/L Low 3.3-5.1 [facility] Comment on above: Result Comment: Hemo lysis present, Results??could be affected. ?? Performed By: #### L 501.080 #### [facility] [address] [place], [address] Sodium [Moles/Vol] 135 mmol/L Normal 133-145 [facility] Comment on above: Performed By: #### L 501.080 #### [facility] [address] [place], [address] Urea nitrogen [Mass/Vol] 4 mg/dL Normal 4-19 [facility] Comment on above: Performed By: #### L 501.080 #### [facility] [address] [place], [address] Potassium [Moles/Vol] 6.1 mmol/L Invalid Interpretation Code 3.3-5.1 [facility] Comment on above: Result Comment: Hemo lysis present, Results??could be affected. ?? HEMOLYSIS PRESENT Hemolysis present, Results??could be affected. ?? HEMOLYSIS PRESENT RESULT TNP IN CIRQY AMENDED REPORT 09/28/24 0005 K previously reported as: Test not performed mmol/L Hemolysis present, Results??could be affected. ?? HEMOLYSIS PRESENT Performed By: #### L 501.080 #### [facility] [address] [place], [address] Basophil percentageOrdered B y: Maggie Reed on 09-28-2024 Basophils/100 WBC (Bld) 0.6 % 0-1 [facility] Bedside Glucoseon 09-28-2024 FINGERSTICK GLU 250 mg/dL High 74-106 [facility] Comment on above: Result Comment: KAZ GEMENT OF PATIENT CARE PER NURSING PROTOCOL Performed By: #### L 501.080 #### [facility] [address] [place], [address] FINGERSTICK GLU 85 mg/dL Normal 74-106 [facility] Comment on above: Result Comment: KAZ GEMENT OF PATIENT CARE PER NURSING PROTOCOL Performed By: #### L 400.0001 #### [facility] [address] [place], [address] FINGERSTICK GLU 106 mg/dL Normal 74-106 [facility] Comment on above: Result Comment: KAZ GEMENT OF PATIENT CARE PER NURSING PROTOCOL Performed By: #### L 501.080 #### [facility] [address] [place], [address] FINGERSTICK GLU 123 mg/dL High 74-106 [facility] Comment on above: Result Comment: KAZ GEMENT OF PATIENT CARE PER NURSING PROTOCOL Performed By: #### L 501.080 #### [facility] [address] [place], [address] CBC W/Diff, Automatedon 03-2 -2024 Absolute Lymph 1.97 X10 3/uL Normal 0.83-4.51 [facility] Comment on above: Performed By: #### L 501.080 #### [facility] [address] [place], [address] Absolute Neut 3.8 X10 3/uL Normal 2.0-7.7 [facility] Comment on above: Performed By: #### L 501.080 #### [facility] [address] [place], [address] Basophils/100 WBC (Bld) 0.6 % Normal 0-1 [facility] Comment on above: Performed By: #### L 501.080 #### [facility] [address] [place], [address] Eosinophils/100 WBC (Bld) 1.1 % Normal 0-5 [facility] Comment on above: Performed By: #### L 501.080 #### [facility] [address] [place], [address] Erythrocyte distribution width (RBC) [Ratio] 16.2 % High 11.6-14.6 [facility] Comment on above: Performed By: #### L 501.080 #### [facility] [address] [place], [address] Hematocrit (Bld) [Volume fraction] 35.9 % Low 37-47 [facility] Comment on above: Performed By: #### L 501.080 #### [facility] [address] [place], [address] Hemoglobin (Bld) [Mass/Vol] 11.8 g/dL Low 12.0-15.0 [facility] Comment on above: Performed By: #### L 501.080 #### [facility] [address] [place], [address] IG% 0.300 Normal 0.0-0.9 [facility] Comment on above: Result Comment: IG% - Immature Granulocytes (promyelocytes, myelocytes and metamyelocytes) > 1% indicates that a LEFT SHIFT is Present. Performed By: #### L 501.080 #### [facility] [address] [place], [address] Lymphocytes/100 WBC (Bld) 30.8 % Normal 19-41 [facility] Comment on above: Performed By: #### L 501.080 #### [facility] [address] [place], [address] MCH (RBC) [Entitic mass] 29.2 pg Normal 27.0-32.0 [facility] Comment on above: Performed By: #### L 501.080 #### [facility] [address] [place], [address] MCHC (RBC) [Mass/Vol] 32.9 g/dL Normal 32-36 [facility] Comment on above: Performed By: #### L 501.080 #### [facility] [address] [place], [address] MCV (RBC) [Entitic vol] 88.9 fL Normal 81-99 [facility] Comment on above: Performed By: #### L 501.080 #### [facility] [address] [place], [address] Monocytes/100 WBC (Bld) 7.5 % Normal 0-10 [facility] Comment on above: Performed By: #### L 501.080 #### [facility] [address] [place], [address] Neutrophils/100 WBC (Bld) 59.7 % Normal 47-70 [facility] Comment on above: Performed By: #### L 501.080 #### [facility] [address] [place], [address] Nucleated RBC (Bld) [#/Vol] 0 10*3/uL Normal 0-5 [facility] Comment on above: Performed By: #### L 501.080 #### [facility] [address] [place], [address] Platelet mean volume (Bld) [Entitic vol] 9.1 fL Normal 6.2-12.0 [facility] Comment on above: Performed By: #### L 501.080 #### [facility] [address] [place], [address] Platelets (Bld) [#/Vol] 312 10*3/uL Normal 150-450 [facility] Comment on above: Performed By: #### L 501.080 #### [facility] [address] [place], [address] RBC (Bld) [#/Vol] 4.04 10*6/uL Low 4.2-5.4 [facility] Comment on above: Performed By: #### L 501.080 #### [facility] [address] [place], [address] RDW SD 53.1 fl High 35.1-43.9 [facility] Comment on above: Performed By: #### L 501.080 #### [facility] [address] [place], [address] WBC (Bld) [#/Vol] 6.4 10*3/uL Normal 4.4-11.0 [facility] Comment on above: Performed By: #### L 501.080 #### [facility] [address] [place], [address] Carbon dioxide, total [Moles /volume] in Central venous bloodOrdered By: Dian Galan on 09-28-2024 CO2 [Moles/Vol] 14.7 mmol/L Low 21.0-32.0 [facility] Chloride assayOrdered By: Nia anam Galan on 09-28-2024 Chloride [Moles/Vol] 104 mmol/L 98-108 [facility] Discharge Instructionon 09-07 Discharge Instruction [facility] Medical Records Department [address] [place] [address] Instructions for Home/Discharge Instructions 09/28/24 0900 MR#: [id number] Acct: [id number] Name: BRETT BOBBY Rep #: [id number] : 1990 33 From: Bryce Julien MD PCP: Dr. Meena Flowers, DO Status:ADM IN Discharge Instructions Diet Discharge Diet: Carb Control Diet DC O2, CPAP, BIPAP needs Home O2 Discharge instructions: No Dressing / Incision Discharge Activity: Return to Normal Activity Dressing / Incision Call your doctor if you observe: Fever of 101 or Higher, Shortness of breath, Dizziness, Fainting spells, Swelling in the ankles, Chest pain and Increased palpitations (irregular heartbeat) Follow Up Care Test Results: Test results from this visit will be discussed in further detail at your follow-up appointment, if applicable. Discharge Plan Admission Admit Date/Time: 09/26/24 11:04 Attending Provider: Bryce Julien Primary Care Provider: Meena Flowers Consulting Providers: Maggie Reed Instructions Additional Instructions / Restrictions: Follow-up with your PCP in 3 to 5 days. Check your blood sugars 2-3 times daily over the next couple of days to make sure normalization of your readings. Discharge Orders/Prescriptions Prescriptions: Continued insulin aspart U-100 [Novolog FlexPen U-100 Insulin] 100 unit/mL (3 mL) insulin pen See Protocol SUBCUT TID PRN (Reason: Hyperglycemia) Protocol: 6. Sliding Scale Insulin Custom Condition: mg/dl range Dose/Route: Number of Units Condition: 150-199 Dose/Route: 2 Condition: 200-250 Dose/Route: 4 Condition: 251-300 Dose/Route: 6 Condition: 301-349 Dose/Route: 8 Condition: 350-399 Dose/Route: 10 Condition: 400+ Dose/Route: 12 Protocol Text: Custom Sliding Scale insulin glargine-yfgn 100 unit/mL (3 mL) Insulin Pen 30 unit subcut BID Qty: 0 0RF Referrals / Follow Up: Meena Flowers DO [Primary Care Provider] - Within 1 Week Disposition Disposition (needs filled in before D/C Order can be placed): Home, Self Care 09/28/24 09 Bryce Julien MD CC: Dr. Meean Flowers DO; Dr. Maggie Reed MD Signed Normal [facility] Eosinophil percentageOrdered By: Maggie Reed on 09-28-2024 Eosinophils/100 WBC (Bld) 1.1 % 0-5 [facility] Erythrocyte distribution wid th ratioOrdered By: Maggie Reed on 09-28-2024 Erythrocyte distribution width (RBC) [Ratio] 16.2 % High 11.6-14.6 [facility] Erythrocyte distribution wid th standard deviationOrdered By: Maggie Reed on 09-28-2024 Erythrocyte distribution width (RBC) [Entitic vol] 53.1 fL High 35.1-43.9 [facility] Estimation of creatinine patito aranceOrdered By: Dian Galan on 09-28-2024 Estimated Creatinine Clearance Calc 109.51 ml/min 50-250 [facility] GFR/1.73 sq M.predicted rey g non-blacks MDRD (S/P/Bld) [Vol rate/Area]Ordered By: Dian Galan on 09-28-2024 Estimated GFR (MDRD) Non-Af Amer 119 >60 [facility] Comment on above: mL/min/1.73m2 CKD-EP I Creatinine Equation (2020) Glucose measurement at bedsi deOrdered By: Bryce Julien on 09-28-2024 Bedside Glucose (Misc Panel) 250 mg/dL High 74-106 [facility] Comment on above: MANAGEMENT OF PATIEN T CARE PER NURSING PROTOCOL Hematocrit Auto (Bld) [Volum e fraction]Ordered By: Maggie Reed on 09-28-2024 Hematocrit (Bld) [Volume fraction] 35.9 % Low 37-47 [facility] Hemoglobin measurementOrdere d By: Maggie Reed on 09-28-2024 Hemoglobin (Bld) [Mass/Vol] 11.8 g/dL Low 12.0-15.0 [facility] Immature granulocytes/100 WB C Auto (Bld)Ordered By: Maggie Reed on 09-28-2024 Immature granulocytes/100 WBC (Bld) 0.300 % 0.0-0.9 [facility] Comment on above: IG% - Immature Granu locytes (promyelocytes, myelocytes and metamyelocytes) > 1% indicates that a LEFT SHIFT is Present. Lymphocytes Auto (Unsp spec) [#/Vol]Ordered By: Mgagie Reed on 09-28-2024 Lymphocytes (Bld) [#/Vol] 1.97 10*3/uL 0.83-4.51 [facility] Lymphocytes/100 WBC Auto (Un sp spec)Ordered By: Maggie Reed on 09-28-2024 Lymphocytes/100 WBC (Bld) 30.8 % 19-41 [facility] MCV (mean corpuscular volume ) determinationOrdered By: Maggie Reed on 09-28-2024 MCV (RBC) [Entitic vol] 88.9 fL 81-99 [facility] Comment on above: Delta: 94.3 on 09/27-0555 Mean corpuscular hemoglobin (MCH) determinationOrdered By: Maggie Rede on 09-28-2024 MCH (RBC) [Entitic mass] 29.2 pg 27.0-32.0 [facility] Mean corpuscular hemoglobin concentration (MCHC) determinationOrdered By: Maggie Reed on 09-28-2024 MCHC (RBC) [Mass/Vol] 32.9 g/dL 32-36 [facility] Mean platelet volume determi nationOrdered By: Maggie Reed on 09-28-2024 Platelet mean volume (Bld) [Entitic vol] 9.1 fL 6.2-12.0 [facility] Monocyte percentageOrdered B y: Maggie Reed on 09-28-2024 Monocytes/100 WBC (Bld) 7.5 % 0-10 [facility] Neutrophil percentageOrdered By: Maggie Reed on 09-28-2024 Neutrophils/100 WBC (Bld) 59.7 % 47-70 [facility] Nucleated red blood cell per centageOrdered By: Maggie Reed on 09-28-2024 Nucleated RBC/100 WBC (Bld) [Ratio] 0 % 0-5 [facility] Platelet countOrdered By: Na hunter Reed on 09-28-2024 Platelets (Bld) [#/Vol] 312 10*3/uL 150-450 [facility] Potassium (Unsp spec) [Mass/ Vol]Ordered By: Dian Galan on 09-28-2024 Potassium [Moles/Vol] 3.6 mmol/L 3.3-5.1 [facility] RBC Auto (Bld) [#/Vol]Ordere d By: Maggie Reed on 09-28-2024 RBC (Bld) [#/Vol] 4.04 10*6/uL Low 4.2-5.4 [facility] Serum creatinine measurement (mass/volume)Ordered By: Dian Galan on 09-28-2024 Creatinine [Mass/Vol] 0.65 mg/dL Low 0.70-1.20 [facility] Serum glucose measurement (m ass/volume)Ordered By: Dian Galan on 09-28-2024 Glucose [Mass/Vol] 272 mg/dL High 70-99 [facility] Serum or plasma calcium xin urement (mass/volume)Ordered By: Dian Galan on 09-28-2024 Calcium [Mass/Vol] 8.0 mg/dL 7.6-11.0 [facility] Serum or plasma urea nitroge n measurement (mass/volume)Ordered By: Dian Galan on 09-28-2024 Urea nitrogen [Mass/Vol] 4 mg/dL 4-19 [facility] Sodium levelOrdered By: Auteleonora Galan on 09-28-2024 Sodium [Moles/Vol] 133 mmol/L 133-145 [facility] White blood cell (WBC) count Ordered By: Maggie Reed on 09-28-2024 WBC (Bld) [#/Vol] 6.4 10*3/uL 4.4-11.0 [facility] Basic Metabolic Profile (BMP )on 09-27-2024 BUN/CRE 9.0 RATIO Low 10-20 [facility] Comment on above: Performed By: #### L 400.0001 #### [facility] [address] [place], [place] [address]john Kuhn [place], [place], [id number] Calcium [Mass/Vol] 8.0 mg/dL Normal 7.6-11.0 [facility] Comment on above: Performed By: #### L 400.0001 #### [facility] [address] [place], [address] Chloride [Moles/Vol] 104 mmol/L Normal 98-108 [facility] Comment on above: Performed By: #### L 400.0001 #### [facility] [address] [place], [address] CO2 [Moles/Vol] 12.3 mmol/L Low 21.0-32.0 [facility] Comment on above: Performed By: #### L 400.0001 #### [facility] [address] [place], [address] Creatinine [Mass/Vol] 0.76 mg/dL Normal 0.70-1.20 [facility] Comment on above: Performed By: #### L 400.0001 #### [facility] [address] [place], [address] ECRCL 93.66 ml/min Normal 50-250 [facility] Comment on above: Performed By: #### L 400.0001 #### [facility] [address] [place], [address] GAP 16 High 5-15 [facility] Comment on above: Performed By: #### L 400.0001 #### [facility] [address] [place], [address] GFR/1.73 sq M.predicted among non-blacks MDRD (S/P/Bld) [Vol rate/Area] 106 mL/min/{1.73_m2} Normal >60 [facility] Comment on above: Result Comment: mL/m in/1.73m2 CKD-EPI Creatinine Equation (2020) Performed By: #### L 400.0001 #### [facility] [address] [place], [address] Glucose [Mass/Vol] 245 mg/dL High 70-99 [facility] Comment on above: Performed By: #### L [id number] #### [facility] [address] [place], [address] Potassium [Moles/Vol] 3.5 mmol/L Normal 3.3-5.1 [facility] Comment on above: Performed By: #### L 400.0001 #### [facility] [address] [place], [address] Sodium [Moles/Vol] 132 mmol/L Low 133-145 [facility] Comment on above: Performed By: #### L 400.0001 #### [facility] [address] [place], [address] Urea nitrogen [Mass/Vol] 7 mg/dL Normal 4-19 [facility] Comment on above: Performed By: #### L 400.0001 #### [facility] [address] [place], [address] GAP 18 High 5-15 [facility] Comment on above: Order Comment: Call MD with results STAT Performed By: #### L 501.080 #### [facility] [address] [place], [address] CO2 [Moles/Vol] 9.8 mmol/L Invalid Interpretation Code 21.0-32.0 [facility] Comment on above: Order Comment: CLEAN CATCH Result Comment: Crit ical Result(s) Called at 09/27/2024-12:54 by Adriano Whatley??Results read back by same. Critical Result(s) Called at 09/27/2024-12:54 by Adriano Whatley??Results read back by same. Critical Result(s) Called at: by:??Results read back by same. AMENDED REPORT 09/27/24 1307 CO2 previously reported as: 9.8 *L mmol/L Critical Result(s) Called at 09/27/2024-12:54 by Adriano Whtaley??Results read back by same. Performed By: #### L 400.0001 #### [facility] [address] [place], [address] BUN/CRE 12.8 RATIO Normal 10-20 [facility] Comment on above: Order Comment: Call MD with results STAT Performed By: #### L 501.080 #### [facility] [address] [place], [address] Calcium [Mass/Vol] 8.2 mg/dL Normal 7.6-11.0 [facility] Comment on above: Order Comment: Call MD with results STAT Performed By: #### L 501.080 #### [facility] [address] [place], [address] Chloride [Moles/Vol] 103 mmol/L Normal 98-108 [facility] Comment on above: Order Comment: Call MD with results STAT Performed By: #### L 501.080 #### [facility] [address] [place], [address] CO2 [Moles/Vol] 8.4 mmol/L Invalid Interpretation Code 21.0-32.0 [facility] Comment on above: Order Comment: Call MD with results STAT Result Comment: Crit ical Result(s) Called at 09/27/2024-12:54 by Adriano Whatley??Results read back by same. Performed By: #### L 501.080 #### [facility] [address] [place], [address] Creatinine [Mass/Vol] 0.74 mg/dL Normal 0.70-1.20 [facility] Comment on above: Order Comment: Call MD with results STAT Performed By: #### L 501.080 #### [facility] [address] [place], [address] ECRCL 96.19 ml/min Normal 50-250 [facility] Comment on above: Order Comment: Call MD with results STAT Performed By: #### L 501.080 #### [facility] [address] [place], [address] GAP 21 High 5-15 [facility] Comment on above: Order Comment: Call MD with results STAT Performed By: #### L 501.080 #### [facility] [address] [place], [address] GFR/1.73 sq M.predicted among non-blacks MDRD (S/P/Bld) [Vol rate/Area] 108 mL/min/{1.73_m2} Normal >60 [facility] Comment on above: Order Comment: Call MD with results STAT Result Comment: mL/m in/1.73m2 CKD-EPI Creatinine Equation (2020) Performed By: #### L 501.080 #### [facility] [address] [place], [address] Glucose [Mass/Vol] 179 mg/dL High 70-99 [facility] Comment on above: Order Comment: Call MD with results STAT Performed By: #### L 501.080 #### [facility] [address] [place], [address] Potassium [Moles/Vol] 4.2 mmol/L Normal 3.3-5.1 [facility] Comment on above: Order Comment: Call MD with results STAT Performed By: #### L 501.080 #### [facility] [address] [place], [address] Sodium [Moles/Vol] 132 mmol/L Low 133-145 [facility] Comment on above: Order Comment: Call MD with results STAT Performed By: #### L 501.080 #### [facility] [address] [place], [address] Urea nitrogen [Mass/Vol] 9 mg/dL Normal 4-19 [facility] Comment on above: Order Comment: Call MD with results STAT Performed By: #### L 501.080 #### [facility] [address] [place], [address] BUN/CRE 13.1 RATIO Normal 10-20 [facility] Comment on above: Order Comment: CLEAN CATCH Performed By: #### L [id number] #### [facility] [address] [place], [address] Calcium [Mass/Vol] 8.3 mg/dL Normal 7.6-11.0 [facility] Comment on above: Order Comment: CLEAN CATCH Performed By: #### L [id number] #### [facility] [address] [place], [address] Chloride [Moles/Vol] 107 mmol/L Normal 98-108 [facility] Comment on above: Order Comment: CLEAN CATCH Performed By: #### L [id number] #### [facility] [address] [place], [address] CO2 [Moles/Vol] 10.4 mmol/L Low 21.0-32.0 [facility] Comment on above: Order Comment: CLEAN CATCH Performed By: #### L 400.0001 #### [facility] [address] [place], [address] Creatinine [Mass/Vol] 0.73 mg/dL Normal 0.70-1.20 [facility] Comment on above: Order Comment: CLEAN CATCH Performed By: #### L 400.0001 #### [facility] [address] [place], [address] ECRCL 96.38 ml/min Normal 50-250 [facility] Comment on above: Order Comment: CLEAN CATCH Performed By: #### L [id number] #### [facility] [address] [place], [address] GAP 16 High 5-15 [facility] Comment on above: Order Comment: CLEAN CATCH Performed By: #### L [id number] #### [facility] [address] [place], [address] GFR/1.73 sq M.predicted among non-blacks MDRD (S/P/Bld) [Vol rate/Area] 110 mL/min/{1.73_m2} Normal >60 [facility] Comment on above: Order Comment: CLEAN CATCH Result Comment: mL/m in/1.73m2 CKD-EPI Creatinine Equation (2020) Performed By: #### L [id number] #### [facility] [address] [place], [address] Glucose [Mass/Vol] 119 mg/dL High 70-99 [facility] Comment on above: Order Comment: CLEAN CATCH Performed By: #### L [id number] #### [facility] [address] [place], [address] Potassium [Moles/Vol] 3.7 mmol/L Normal 3.3-5.1 [facility] Comment on above: Order Comment: CLEAN CATCH Performed By: #### L [id number] #### [facility] [address] [place], [address] Sodium [Moles/Vol] 133 mmol/L Normal 133-145 [facility] Comment on above: Order Comment: CLEAN CATCH Performed By: #### L 400.0001 #### [facility] [address] [place], [address] Urea nitrogen [Mass/Vol] 10 mg/dL Normal 4-19 [facility] Comment on above: Order Comment: CLEAN CATCH Performed By: #### L [id number] #### [facility] [address] [place], [address] Bedside Glucoseon 09-27-2024 FINGERSTICK GLU 117 mg/dL High 74-106 [facility] Comment on above: Result Comment: KAZ GEMENT OF PATIENT CARE PER NURSING PROTOCOL Performed By: #### L [id number] #### [facility] [address] [place], [address] FINGERSTICK GLU 115 mg/dL High 74-106 [facility] Comment on above: Result Comment: KAZ GEMENT OF PATIENT CARE PER NURSING PROTOCOL Performed By: #### L 501.080 #### [facility] [address] [place], [address] FINGERSTICK GLU 140 mg/dL High 74-106 [facility] Comment on above: Result Comment: KAZ GEMENT OF PATIENT CARE PER NURSING PROTOCOL Performed By: #### L [id number] #### [facility] [address] [place], [address] FINGERSTICK GLU 111 mg/dL High -106 [facility] Comment on above: Result Comment: KAZ GEMENT OF PATIENT CARE PER NURSING PROTOCOL Performed By: #### L 501.080 #### [facility] [address] [place], [address] FINGERSTICK GLU 171 mg/dL High -106 [facility] Comment on above: Result Comment: KAZ GEMENT OF PATIENT CARE PER NURSING PROTOCOL Performed By: #### L 501.080 #### [facility] [address] [place], [address] FINGERSTICK GLU 207 mg/dL High 74-106 [facility] Comment on above: Result Comment: KAZ GEMENT OF PATIENT CARE PER NURSING PROTOCOL Performed By: #### L 501.080 #### [facility] [address] [place], [address] FINGERSTICK GLU 229 mg/dL High 74-106 [facility] Comment on above: Result Comment: KAZ GEMENT OF PATIENT CARE PER NURSING PROTOCOL Performed By: #### L 501.080 #### [facility] [address] [place], [address] FINGERSTICK GLU 216 mg/dL High 74-106 [facility] Comment on above: Result Comment: KAZ GEMENT OF PATIENT CARE PER NURSING PROTOCOL Performed By: #### L [id number] #### [facility] [address] [place], [address] FINGERSTICK GLU 172 mg/dL High [address] [place] [address] Comment on above: Result Comment: KAZ GEMENT OF PATIENT CARE PER NURSING PROTOCOL Performed By: #### L 501.080 #### [facility] [address] [place], [address] FINGERSTICK GLU 190 mg/dL High [address] [place] [address] Comment on above: Result Comment: KAZ GEMENT OF PATIENT CARE PER NURSING PROTOCOL Performed By: #### L 501.080 #### [facility] [address] [place], [address] FINGERSTICK GLU 254 mg/dL High -[address] [address] Comment on above: Result Comment: KAZ GEMENT OF PATIENT CARE PER NURSING PROTOCOL Performed By: #### L 501.080 #### [facility] [address] [place], [address] FINGERSTICK GLU 306 mg/dL High [address] [place] [address] Comment on above: Result Comment: KAZ GEMENT OF PATIENT CARE PER NURSING PROTOCOL Performed By: #### L [id number] #### [facility] [address] [place], [address] FINGERSTICK GLU 267 mg/dL High 74-[address] [address] Comment on above: Result Comment: KAZ GEMENT OF PATIENT CARE PER NURSING PROTOCOL Performed By: #### L 501.080 #### [facility] [address] [place], [address] FINGERSTICK GLU 172 mg/dL High [address] [place] [address] Comment on above: Result Comment: KAZ GEMENT OF PATIENT CARE PER NURSING PROTOCOL Performed By: #### L 100.0100 #### [facility] [address] [place], [address] FINGERSTICK GLU 79 mg/dL Normal 74-106 [facility] Comment on above: Result Comment: KAZ GEMENT OF PATIENT CARE PER NURSING PROTOCOL Performed By: #### L 501.080 #### [facility] [address] [place], [address] FINGERSTICK GLU 81 mg/dL Normal 74-106 [facility] Comment on above: Result Comment: KAZ GEMENT OF PATIENT CARE PER NURSING PROTOCOL Performed By: #### L 501.080 #### [facility] [address] [place], [address] FINGERSTICK GLU 118 mg/dL High 74-106 [facility] Comment on above: Result Comment: KAZ GEMENT OF PATIENT CARE PER NURSING PROTOCOL Performed By: #### L 400.0001 #### [facility] [address] [place], [address] FINGERSTICK GLU 157 mg/dL High 74-106 [facility] Comment on above: Result Comment: KAZ GEMENT OF PATIENT CARE PER NURSING PROTOCOL Performed By: #### L 100.0100 #### [facility] [address] [place], [address] FINGERSTICK GLU 166 mg/dL High 74-106 [facility] Comment on above: Result Comment: KAZ GEMENT OF PATIENT CARE PER NURSING PROTOCOL Performed By: #### L 501.080 #### [facility] [address] [place], [address] FINGERSTICK GLU 177 mg/dL High 74-106 [facility] Comment on above: Result Comment: KAZ GEMENT OF PATIENT CARE PER NURSING PROTOCOL Performed By: #### L 501.080 #### [facility] [address] [place], [address] CBC W/Diff, Automatedon 09-07 Platelets (Bld) [#/Vol] 324 10*3/uL Normal 150-450 [facility] Comment on above: Order Comment: EMMETT W. PREVIOUS SPECIMEN REJECTED DUE TOCLOTTED. 09/27/24526 Karthik R Nugent. Performed By: #### L 100.0100 #### [facility] [address] [place], [address] Absolute Neut Normal 2.0-7.7 [facility] Comment on above: Result Comment: This specimen has been REJECTED due to Laboratory criteria: Clotted. CARSON has been notified of need of recollection. 09/27/24523 Karthik R Nugent Performed By: #### L 100.0100 #### [facility] [address] [place], [address] HCT Normal 37-47 [facility] Comment on above: Result Comment: This specimen has been REJECTED due to Laboratory criteria: Clotted. CARSON has been notified of need of recollection. 09/27/24523 Karthik R Nugent Performed By: #### L 100.0100 #### [facility] [address] [place], [address] HGB Normal 12.0-15.0 [facility] Comment on above: Result Comment: This specimen has been REJECTED due to Laboratory criteria: Clotted. CARSON has been notified of need of recollection. 09/27/24523 Karthik R Nugent Performed By: #### L 100.0100 #### [facility] [address] [place], [address] MCH Normal 27.0-32.0 [facility] Comment on above: Result Comment: This specimen has been REJECTED due to Laboratory criteria: Clotted. CARSON has been notified of need of recollection. 09/27/24523 Karthik R Nugent Performed By: #### L 100.0100 #### [facility] [address] [place], [address] MCHC Normal 32-36 [facility] Comment on above: Result Comment: This specimen has been REJECTED due to Laboratory criteria: Clotted. CARSON has been notified of need of recollection. 09/27/24523 Karthik R Nugent Performed By: #### L 100.0100 #### [facility] [address] [place], [address] MCV Normal 81-99 [facility] Comment on above: Result Comment: This specimen has been REJECTED due to Laboratory criteria: Clotted. CARSON has been notified of need of recollection. 09/27/24523 Karthik R Nugent Performed By: #### L 100.0100 #### [facility] [address] [place], [address] NEUT% Normal 47-70 [facility] Comment on above: Result Comment: This specimen has been REJECTED due to Laboratory criteria: Clotted. CARSON has been notified of need of recollection. 09/27/24523 Karthik R Nugent Performed By: #### L 100.0100 #### [facility] [address] [place], [address] PLT Normal 150-450 [facility] Comment on above: Result Comment: This specimen has been REJECTED due to Laboratory criteria: Clotted. CARSON has been notified of need of recollection. 09/27/24523 Karthik R Nugent Performed By: #### L 100.0100 #### [facility] [address] [place], [address] RBC Normal 4.2-5.4 [facility] Comment on above: Result Comment: This specimen has been REJECTED due to Laboratory criteria: Clotted. CARSON has been notified of need of recollection. 09/27/24523 Karthik R Nugent Performed By: #### L 100.0100 #### [facility] [address] [place], [address] RDW CV Normal 11.6-14.6 [facility] Comment on above: Result Comment: This specimen has been REJECTED due to Laboratory criteria: Clotted. CARSON has been notified of need of recollection. 09/27/24523 Karthik R Nugent Performed By: #### L 100.0100 #### [facility] [address] [place], [address] RDW SD Normal 35.1-43.9 [facility] Comment on above: Result Comment: This specimen has been REJECTED due to Laboratory criteria: Clotted. CARSON has been notified of need of recollection. 09/27/24523 Karthik R Nugent Performed By: #### L 100.0100 #### [facility] [address] [place], [address] WBC Normal 4.4-11.0 [facility] Comment on above: Result Comment: This specimen has been REJECTED due to Laboratory criteria: Clotted. CARSON has been notified of need of recollection. 09/27/24523 Karthik R Nugent Performed By: #### L 100.0100 #### [facility] [address] [place], [address] 12 Lead EKGon 09-26-2024 12 Lead EKG [facility] [address] [place] [address] 12 Lead EKG 09/26/24 0952 MR#: [id number] Acct: [id number] Name: BRETT BOBYB Rep #: [id number] : 1990 33 From: Bob Henriquez MD Attending Dr: Dr. Bryce Julien MD Status : DIS IN Ordering Dr: Aba Murguia MD Date: 09/26/24 Location: ICU Sex: F C Admitted: 09/26/24 Test Reason : Blood Pressure : */* mmHG Vent. Rate : 112 BPM Atrial Rate : 112 BPM P-R Int : 136 ms QRS Dur : 74 ms QT Int : 292 ms P-R-T Axes : 66 9 -12 degrees QTcB Int : 398 ms Sinus tachycardia Low voltage QRS Nonspecific T wave abnormality Abnormal ECG When compared with ECG of 04-Apr-2024 08:54, Nonspecific T wave abnormality now evident in Inferior leads Nonspecific T wave abnormality, worse in Anterolateral leads Confirmed by CAMERON JENNINGS, BOB ([id number]), web content editor SABRINA MCCLELLAN ([id number]) on 09/29/2024 9:48:24 AM Referred By: Confirmed By: BOB HENRIQUEZ MD 09/29/2448 Date Bob Henriquez MD CC: Dr. Aba Murguia MD; Dr. Meena Flowers DO; Dr. Bryce Julien MD Signed Normal [facility] Absolute neutrophil countOrd ered By: Aba Murguia on 09-26-2024 Neutrophils (Bld) [#/Vol] 10.0 10*3/uL High 2.0-7.7 [facility] Anion gap in Serum or Plasma Ordered By: Aba Murguia on 09-26-2024 Anion gap [Moles/Vol] 35 mmol/L High 5-15 [facility] BUN/creatinine ratioOrdered By: Aba Murguia on 09-26-2024 Urea nitrogen/Creatinine [Mass ratio] 12.0 mg/mg 10-20 [facility] Base excess Calc (BldV) [Mol es/Vol]Ordered By: Aba Murguia on 09-26-2024 Venous Blood Base Excess -25 mmol/L Low -1.0-3.5 [facility] Basic Metabolic Profile (BMP )on 09-26-2024 CO2 [Moles/Vol] 7.6 mmol/L Invalid Interpretation Code 21.0-32.0 [facility] Comment on above: Order Comment: Call MD with results STAT Result Comment: Crit ical Result(s) Called CARSON at: 2109 by: EFRA.??Results read back by same. Critical Result(s) Called at: by:??Results read back by same. Critical Result(s) Called at: by:??Results read back by same. AMENDED REPORT 09/26/242133 CO2 previously reported as: 7.6 *L mmol/L Critical Result(s) Called CARSON at: 2109 by: EFRA.??Results read back by same. Performed By: #### L 501.080 #### [facility] [address] [place], [address] CO2 [Moles/Vol] 5.0 mmol/L Invalid Interpretation Code 21.0-32.0 [facility] Comment on above: Order Comment: Call with results STAT Result Comment: CRIT ICAL RESULTS CALLED TO MARTIN BY SHERLEY MANCILLA AT 1716. READ BACK BY SAME. AMENDED REPORT 09/26/241716 CO2 previously reported as: 5.0 *L mmol/L Critical Result(s) Called at: by:??Results read back by same. CRITICAL RESULTS CALLED TO MARTIN BY SHERLEY MANCILLA AT 1716. READ BACK BY SAME. Critical Result(s) Called at: by:??Results read back by same. Performed By: #### L 501.080 #### [facility] [address] [place], [address] BUN Normal 4-19 [facility] Comment on above: Order Comment: Call with results STAT Result Comment: This specimen has been REJECTED due to Laboratory criteria: Quanity Not Sufficient. MARTIN has been notified of need of recollection. 09/26/24 1440 Hanane Clapper Performed By: #### L 501.080 #### [facility] [address] [place], [address] BUN/CRE Normal 10-20 [facility] Comment on above: Order Comment: Call with results STAT Result Comment: This specimen has been REJECTED due to Laboratory criteria: Quanity Not Sufficient. MARTIN has been notified of need of recollection. 09/26/24 1440 Hanane Clapper Performed By: #### L 501.080 #### [facility] [address] [place], [address] Calcium Normal 7.6-11.0 [facility] Comment on above: Order Comment: Call MD with results STAT Result Comment: This specimen has been REJECTED due to Laboratory criteria: Quanity Not Sufficient. MARTIN has been notified of need of recollection. 09/26/24 1440 Hanane Clapper Performed By: #### L 501.080 #### [facility] [address] [place], [address] CL Normal 98-108 [facility] Comment on above: Order Comment: Call MD with results STAT Result Comment: This specimen has been REJECTED due to Laboratory criteria: Quanity Not Sufficient. MARTIN has been notified of need of recollection. 09/26/24 1440 Hanane Clapper Performed By: #### L 501.080 #### [facility] [address] [place], [address] CO2 Normal 21.0-32.0 [facility] Comment on above: Order Comment: Call MD with results STAT Result Comment: This specimen has been REJECTED due to Laboratory criteria: Quanity Not Sufficient. MARTIN has been notified of need of recollection. 09/26/24 1440 Hanane Clapper Performed By: #### L 501.080 #### [facility] [address] [place], [address] CREAT,SERUM Normal 0.70-1.20 [facility] Comment on above: Order Comment: Call with results STAT Result Comment: This specimen has been REJECTED due to Laboratory criteria: Quanity Not Sufficient. MARTIN has been notified of need of recollection. 09/26/24 1440 Hanane Clapper Performed By: #### L 501.080 #### [facility] [address] [place], [address] eGFR Normal >60 [facility] Comment on above: Order Comment: Call with results STAT Result Comment: This specimen has been REJECTED due to Laboratory criteria: Quanity Not Sufficient. MARTIN has been notified of need of recollection. 09/26/24 1440 Hanane Clapper Performed By: #### L 501.080 #### [facility] [address] [place], [address] GAP Normal 5-15 [facility] Comment on above: Order Comment: Call MD with results STAT Result Comment: This specimen has been REJECTED due to Laboratory criteria: Quanity Not Sufficient. MARTIN has been notified of need of recollection. 09/26/24 1440 Hanane Clapper Performed By: #### L 501.080 #### [facility] [address] [place], [address] GLU Normal 70-99 [facility] Comment on above: Order Comment: Call MD with results STAT Result Comment: This specimen has been REJECTED due to Laboratory criteria: Quanity Not Sufficient. MARTIN has been notified of need of recollection. 09/26/24 1440 Hanane Clapper Performed By: #### L 501.080 #### [facility] [address] [place], [address] Potassium Normal 3.3-5.1 [facility] Comment on above: Order Comment: Call MD with results STAT Result Comment: This specimen has been REJECTED due to Laboratory criteria: Quanity Not Sufficient. MARTIN has been notified of need of recollection. 09/26/24 1440 Hanane Clapper Performed By: #### L 501.080 #### [facility] [address] [place], [address] Basic Metabolic Profile (BMP) Normal 133-145 [facility] Comment on above: Order Comment: Call MD with results STAT Result Comment: This specimen has been REJECTED due to Laboratory criteria: Quanity Not Sufficient. MARTIN has been notified of need of recollection. 09/26/24 1440 Hanane Clapper Performed By: #### L 501.080 #### [facility] [address] [place], [address] BUN/CRE 12.0 RATIO Normal 10-20 [facility] Comment on above: Performed By: #### L 501.080 #### [facility] [address] [place], [address] Calcium [Mass/Vol] 9.3 mg/dL Normal 7.6-11.0 [facility] Comment on above: Performed By: #### L 501.080 #### [facility] [address] [place], [address] Chloride [Moles/Vol] 94 mmol/L Low 98-108 [facility] Comment on above: Performed By: #### L 501.080 #### [facility] [address] [place], [address] CO2 [Moles/Vol] 5.7 mmol/L Invalid Interpretation Code 21.0-32.0 [facility] Comment on above: Result Comment: Crit ical Result(s) Called at 1056 TO: AVANI by: KCLAPPER??Results read back by same. Performed By: #### L 501.080 #### [facility] [address] [place], [address] Creatinine [Mass/Vol] 0.84 mg/dL Normal 0.70-1.20 [facility] Comment on above: Performed By: #### L 501.080 #### [facility] [address] [place], [address] ECRCL 83.54 ml/min Normal 50-250 [facility] Comment on above: Performed By: #### L 501.080 #### [facility] [address] [place], [address] GAP 35 High 5-15 [facility] Comment on above: Performed By: #### L 501.080 #### [facility] [address] [place], [address] GFR/1.73 sq M.predicted among non-blacks MDRD (S/P/Bld) [Vol rate/Area] 93 mL/min/{1.73_m2} Normal >60 [facility] Comment on above: Result Comment: mL/m in/1.73m2 CKD-EPI Creatinine Equation (2020) Performed By: #### L 501.080 #### [facility] [address] [place], [address] Glucose [Mass/Vol] 339 mg/dL High 70-99 [facility] Comment on above: Performed By: #### L 501.080 #### [facility] [address] [place], [address] Potassium [Moles/Vol] 4.7 mmol/L Normal 3.3-5.1 [facility] Comment on above: Performed By: #### L 501.080 #### [facility] [address] [place], [address] Sodium [Moles/Vol] 134 mmol/L Normal 133-145 [facility] Comment on above: Performed By: #### L 501.080 #### [facility] [address] [place], [address] Urea nitrogen [Mass/Vol] 10 mg/dL Normal 4-19 [facility] Comment on above: Performed By: #### L 501.080 #### [facility] [address] [place], [address] BUN Normal 4-19 [facility] Comment on above: Result Comment: DIMAS CRONIN SAID THEY DID NOT NEED FAR SHE KNOWS. Performed By: #### L 501.080 #### [facility] [address] [place], [address] BUN/CRE Normal 10-20 [facility] Comment on above: Result Comment: DIMAS CRONIN SAID THEY DID NOT NEED FAR SHE KNOWS. Performed By: #### L 501.080 #### [facility] [address] [place], [address] Calcium Normal 7.6-11.0 [facility] Comment on above: Result Comment: DIMAS CRONIN SAID THEY DID NOT NEED FAR SHE KNOWS. Performed By: #### L 501.080 #### [facility] [address] [place], [address] CL Normal 98-108 [facility] Comment on above: Result Comment: DIMAS CRONIN SAID THEY DID NOT NEED FAR SHE KNOWS. Performed By: #### L 501.080 #### [facility] [address] [place], [address] CO2 Normal 21.0-32.0 [facility] Comment on above: Result Comment: DIMAS CRONIN SAID THEY DID NOT NEED FAR SHE KNOWS. Performed By: #### L 501.080 #### [facility] [address] [place], [address] CREAT,SERUM Normal 0.70-1.20 [facility] Comment on above: Result Comment: DIMAS CRONIN SAID THEY DID NOT NEED FAR SHE KNOWS. Performed By: #### L 501.080 #### [facility] [address] [place], [address] eGFR Normal >60 [facility] Comment on above: Result Comment: DIMAS CRONIN SAID THEY DID NOT NEED FAR SHE KNOWS. Performed By: #### L 501.080 #### [facility] [address] [place], [address] GAP Normal 5-15 [facility] Comment on above: Result Comment: DIMAS CRONIN SAID THEY DID NOT NEED FAR SHE KNOWS. Performed By: #### L 501.080 #### [facility] [address] [place], [address] GLU Normal 70-99 [facility] Comment on above: Result Comment: DIMAS CRONIN SAID THEY DID NOT NEED FAR SHE KNOWS. Performed By: #### L 501.080 #### [facility] [address] [place], [address] Potassium Normal 3.3-5.1 [facility] Comment on above: Result Comment: DIMAS CRONIN SAID THEY DID NOT NEED FAR SHE KNOWS. Performed By: #### L 501.080 #### [facility] [address] [place], [address] Basic Metabolic Profile (BMP) Normal 133-145 [facility] Comment on above: Result Comment: DIMAS CRONIN SAID THEY DID NOT NEED FAR SHE KNOWS. Performed By: #### L 501.080 #### [facility] [address] [place], [address] BUN Normal 4-19 [facility] Comment on above: Order Comment: REDRA W. PREVIOUS SPECIMEN REJECTED DUE TOQNS. 09/26/241441 Result Comment: ORDE R NOT NEEDED. ORDERS ALREADY PLACED FOR TIMED DRAWS Performed By: #### L 100.0100 #### [facility] [address] [place], [address] BUN/CRE Normal 10-20 [facility] Comment on above: Order Comment: REDRA W. PREVIOUS SPECIMEN REJECTED DUE TOQNS. 09/26/24 144 Result Comment: ORDE R NOT NEEDED. ORDERS ALREADY PLACED FOR TIMED DRAWS Performed By: #### L 100.0100 #### [facility] [address] [place], [address] Calcium Normal 7.6-11.0 [facility] Comment on above: Order Comment: REDRA W. PREVIOUS SPECIMEN REJECTED DUE TOQNS. 09/26/241441 Result Comment: ORDE R NOT NEEDED. ORDERS ALREADY PLACED FOR TIMED DRAWS Performed By: #### L 100.0100 #### [facility] [address] [place], [address] CL Normal 98-108 [facility] Comment on above: Order Comment: REDRA W. PREVIOUS SPECIMEN REJECTED DUE TOQNS. 09/26/241441 Result Comment: ORDE R NOT NEEDED. ORDERS ALREADY PLACED FOR TIMED DRAWS Performed By: #### L 100.0100 #### [facility] [address] [place], [address] CO2 Normal 21.0-32.0 [facility] Comment on above: Order Comment: REDRA W. PREVIOUS SPECIMEN REJECTED DUE TOQNS. 09/26/241441 Result Comment: ORDE R NOT NEEDED. ORDERS ALREADY PLACED FOR TIMED DRAWS Performed By: #### L 100.0100 #### [facility] [address] [place], [address] CREAT,SERUM Normal 0.70-1.20 [facility] Comment on above: Order Comment: REDRA W. PREVIOUS SPECIMEN REJECTED DUE TOQNS. 09/26/241441 Result Comment: ORDE R NOT NEEDED. ORDERS ALREADY PLACED FOR TIMED DRAWS Performed By: #### L 100.0100 #### [facility] [address] [place], [address] eGFR Normal >60 [facility] Comment on above: Order Comment: REDRA W. PREVIOUS SPECIMEN REJECTED DUE TOQNS. 09/26/241441 Result Comment: ORDE R NOT NEEDED. ORDERS ALREADY PLACED FOR TIMED DRAWS Performed By: #### L 100.0100 #### [facility] [address] [place], [address] GAP Normal 5-15 [facility] Comment on above: Order Comment: REDRA W. PREVIOUS SPECIMEN REJECTED DUE TOQNS. 09/26/241441 Result Comment: ORDE R NOT NEEDED. ORDERS ALREADY PLACED FOR TIMED DRAWS Performed By: #### L 100.0100 #### [facility] [address] [place], [address] GLU Normal 70-99 [facility] Comment on above: Order Comment: REDRA W. PREVIOUS SPECIMEN REJECTED DUE TOQNS. 09/26/24 1442 Result Comment: ORDE R NOT NEEDED. ORDERS ALREADY PLACED FOR TIMED DRAWS Performed By: #### L 100.0100 #### [facility] [address] [place], [address] Potassium Normal 3.3-5.1 [facility] Comment on above: Order Comment: REDRA W. PREVIOUS SPECIMEN REJECTED DUE TOQNS. 09/26/24 144 Result Comment: ORDE R NOT NEEDED. ORDERS ALREADY PLACED FOR TIMED DRAWS Performed By: #### L 100.0100 #### [facility] [address] [place], [address] Basic Metabolic Profile (BMP) Normal 133-145 [facility] Comment on above: Order Comment: REDRA W. PREVIOUS SPECIMEN REJECTED DUE TOQNS. 09/26/24 1442 Result Comment: ORDE R NOT NEEDED. ORDERS ALREADY PLACED FOR TIMED DRAWS Performed By: #### L 100.0100 #### [facility] [address] [place], [address] Basophil percentageOrdered B y: Aba Caione on 09-26-2024 Basophils/100 WBC (Bld) 0.9 % 0-1 [facility] Bedside Glucoseon 09-26-2024 [place] GLU 201 mg/dL High 74-106 [facility] Comment on above: Result Comment: KAZ GEMENT OF PATIENT CARE PER NURSING PROTOCOL Performed By: #### L 501.080 #### [facility] [address] [place], [address] [place] GLU 227 mg/dL High 74-106 [facility] Comment on above: Result Comment: KAZ GEMENT OF PATIENT CARE PER NURSING PROTOCOL Performed By: #### L 100.0100 #### [facility] [address] [place], [address] [place] GLU 235 mg/dL High 74-106 [facility] Comment on above: Result Comment: KAZ GEMENT OF PATIENT CARE PER NURSING PROTOCOL Performed By: #### L 501.080 #### [facility] [address] [place], [address] [place] GLU 223 mg/dL High 74-106 [facility] Comment on above: Result Comment: KAZ GEMENT OF PATIENT CARE PER NURSING PROTOCOL Performed By: #### L 100.0100 #### [facility] [address] [place], [address] [place] GLU 257 mg/dL High 74-106 [facility] Comment on above: Result Comment: KAZ GEMENT OF PATIENT CARE PER NURSING PROTOCOL Performed By: #### L 100.0100 #### [facility] [address] [place], [address] FING[place]ICK GLU 240 mg/dL High 74-106 [facility] Comment on above: Result Comment: KAZ GEMENT OF PATIENT CARE PER NURSING PROTOCOL Performed By: #### L 400.0001 #### [facility] [address] [place], [address] [place] GLU 251 mg/dL High 74-106 [facility] Comment on above: Result Comment: Dr Lima aguilera Followed MANAGEMENT OF PATIENT CARE PER NURSING PROTOCOL Performed By: #### L 501.080 #### [facility] [address] [place], [address] [place] GLU 246 mg/dL High 74-106 [facility] Comment on above: Result Comment: KAZ GEMENT OF PATIENT CARE PER NURSING PROTOCOL Performed By: #### L 501.080 #### [facility] [address] [place], [address] FING[place]ICK GLU 232 mg/dL High 74-106 [place] [facility] Comment on above: Result Comment: KAZ GEMENT OF PATIENT CARE PER NURSING PROTOCOL Performed By: #### L 501.080 #### [facility] [address] [place], [address] FING[place]ICK GLU 267 mg/dL High [address] [place] [address] Comment on above: Result Comment: KAZ GEMENT OF PATIENT CARE PER NURSING PROTOCOL Performed By: #### L 501.080 #### [facility] [address] [place], [address] [place] GLU 361 mg/dL High [address] [place] [address] Comment on above: Result Comment: KAZ GEMENT OF PATIENT CARE PER NURSING PROTOCOL Performed By: #### L 501.080 #### [facility] [address] [place], [address] [place] GLU 420 mg/dL High [address] [place] [address] Comment on above: Result Comment: KAZ GEMENT OF PATIENT CARE PER NURSING PROTOCOL Performed By: #### L 501.080 #### [facility] [address] [place], [address] [place] GLU 341 mg/dL [address] Comment on above: Result Comment: KAZ GEMENT OF PATIENT CARE PER NURSING PROTOCOL Performed By: #### L 501.080 #### [facility] [address] [place], [address] Bilirubin Test strip Ql (U)O rdered By: Aba Murguia on 09-26-2024 Bilirubin Ql (U) Negative Negative [facility] CBC W/Diff, Automatedon -2 PLT EST SLT INC Normal ADEQ [facility] Comment on above: Performed By: #### L 501.080 #### [facility] [address] [place], [address] CO2 (BldV) [Moles/Vol]Ordere d By: Aba Murguia on 09-26-2024 CO2 [Moles/Vol] 6 mmol/L Low 23-33 [facility] CO2 (BldV) [Partial pressure ]Ordered By: Aba Murguia on 09-26-2024 Bed Mix Venous Bld PCO2 at Pat Temp 19.2 mmHg Low 41-51 [facility] Carbon dioxide, total [Moles /volume] in Central venous bloodOrdered By: Aba Murguia on 09-26-2024 CO2 [Moles/Vol] 5.7 mmol/L Low 21.0-32.0 [facility] Comment on above: Critical Result(s) C alled at 1056 TO: AHAGGCLARALior by: KCLAPPER Results read back by same. Chest 1 View (Portable)on Chest 1 View (Portable) [facility] Services [address] [place] [address] Chest 1 View (Portable) MR#: [id number] Acct: [id number] Name: BRETT BOBBY Rep #: [id number] : 1990 F 33 From: Michael Honeycutt MD PCP: Dr. Meena Flowers DO Status: REG ER Study: Chest 1 View (Portable) Date of Exam: 09/26/24 Exam# [id number] Ordering Dr: Aba Murguia MD PROCEDURE: CHEST 1 VIEW (PORTABLE) (RADCXPA_P), 09/26/2024 REASON FOR EXAM: DYSPNEA TECHNIQUE: A single portable AP view of the chest was obtained. COMPARISON: 04/04/2024 FINDINGS: Heart: Unremarkable. Mediastinum: Unremarkable. Lungs/pleura: No focal consolidation. No sizeable pleural effusion or visible pneumothorax. Bones: Trace thoracic scoliosis. Lines and support devices: None. Other: None. RAD/Chest 1 View (Portable) IMPRESSION: No visible acute cardiopulmonary findings Reading Location: [facility] CC: Dr. Aba Murguia MD; Dr. Meena Flowers DO Watch Crystal Grinder: Signed Normal [facility] Chloride assayOrdered By: Sabas Murguia on 09-26-2024 Chloride [Moles/Vol] 94 mmol/L Low 98-108 [facility] Consultation - Intensiviston 09-26-2024 Consultation - Tsa Screener [facility] Medical Records Department [address] [place] [address] Consultation - Tsa Screener 09/26/24 1602 MR#: [id number] Acct: [id number] Name: BRETT BOBBY Rep #: [id number] : 1990 33 From: Dino Hernandez MD PCP: Dr. Meena Flowers, DO Status:ADM IN Location: ICU [id number] HPI Consult Data Date of Consult: 09/26/24 HPI Narrative HPI Narrative: BRETT BOBBY, is a 33yo DM2 with last A1C estimated to be 9 per patient on 24u BID long acting and 10u premeal insulin last in hospital for DKA in 2023. Here with DKA again. Denies change in use of insulin or dietary habits. Denies UTI, URI, GI symtptoms. NO recent steroid rx. No documented SLG2i rx. PFSH Medical History Tobacco abuse Stage 3a chronic kidney disease (CKD) Diabetes mellitus type 1, uncontrolled, insulin dependent Home Medications ???Medication ???Instructions ???Recorded ???Last Taken ???Type insulin aspart U-100 100 unit/mL See Protocol subcut TID PRN Unknown History (3 mL) subcutaneous pen (Novolog Hyperglycemia FlexPen U-100 Insulin aspart) insulin glargine-yfgn 100 unit/mL 30 unit (0.3 mL) subcut BID 04/05 Unknown Rx (3 mL) subcutaneous pen diabete #0 mL Allergy/AdvReac Type Severity Reaction Status Date / Time bee venom protein (honey bee) Allergy Anaphylaxis Verified 09/26/24 10:07 Family History Grandmother Diabetes Hypertension Heart disease Grandfather Diabetes Colon cancer Surgical History Hx of tonsillectomy History of partial hysterectomy Social History household members: children current occupational exposures/hazards: No Smoking Status: Light Smoker (<10/day) alcohol intake: current alcohol intake frequency: holidays/special occasions only substance use type: does not use Objective Data Objective Data Vital Signs: Vital Signs Last response 3 Temperature 36.7 C 09/26/24 12:19 Temperature Source Oral 09/26/24 12:00 Pulse Rate 124 H 09/26/24 12:50 Respiratory Rate 22 H 09/26/24 12:50 Respiratory Effort Normal 09/26/24 10:07 Respiratory Pattern Normal 09/26/24 10:07 Blood Pressure 152/90 H 09/26/24 12:50 Blood Pressure Mean 110 09/26/24 12:50 Blood Pressure Source Monitor 09/26/24 12:50 Blood Pressure Position Semi-Fowlers 09/26/24 12:50 Blood Pressure Location Right Arm 09/26/24 12:50 Pulse Ox 99 09/26/24 12:50 Oxygen Delivery Method Room Air 09/26/24 12:50 I O: I O Last 24 Hours 3 09/25/24 09/26/24 09/26/24 23:59 11:59 23:59 Intake Total / Balance / I O: Total Stay 3 09/26/24 09:27 thru 09/26/24 15:05 Intake Total Balance Current Meds Ordered / Administered: Current meds ordered / Administered 3 Generic Name Dose Route Start Last Admin Trade Name Freq PRN Reason Stop Dose Admin Acetaminophen 650 mg 09/26/24 12:38 Acetaminophen 325 Mg Tablet PO Q6H PRN PRN Pain 1-10 Or Fever >100.7 Enoxaparin Sodium 40 mg 09/27/24 10:00 Enoxaparin 40 Mg/0.4 Ml Syringe SC DAILY JAC Dextrose 250 mls @ 999 mls/hr 09/26/24 12:38 Dextrose 10%-Water IV .Q16M PRN Hypoglycemic Protocol Protocol Insulin Human Lispro 100 unit/ 100 mls @ 6.849 mls/hr 09/26/24 12:38 Sodium Chloride CONT INF .[id number] JAC Protocol Dextrose/Sodium Chloride 1,000 mls @ 150 mls/hr 09/26/24 15:15 09/26/24 15:19 IV 150 mls/hr .Q6H40M JAC Administration Ceftriaxone Sodium 1 gm in 50 mls @ 100 mls/hr 09/26/24 15:55 Rocephin IV Q24 JAC Insulin Glargine 24 unit 09/26/24 15:27 Insulin Glargine-Yfgn 100 Unit/Ml Pen SC DAILY JAC Ondansetron HCl 4 mg 09/26/24 12:38 Ondansetron 4 Mg/2 Ml Vial IV Q8H PRN PRN NAUSEA/VOMITING Oxycodone HCl 2.5 - 5 mg 09/26/24 12:38 Oxycodone 5 Mg Tablet PO Q4H PRN PRN Pain Score 4-10 Sodium Chloride 10 - 40 ml 09/26/24 12:44 0.9% Saline Lock 10 Ml Syringe IV UD PRN SALINE FLUSH Physical Exam Const alert, oriented x3 and no apparent distress General Appearance: cooperative, well developed and ill appearing HEENT normocephalic and head/scalp atraumatic HEENT Narrative: dry membranes Eyes PERRL, EOMs intact bilaterally, conjunctivae normal and no scleral icterus Neck full ROM, no lymphadenopathy, supple and no JVD Chest inspection of chest normal Resp Resp Narrative: no kussmaul breathing Effort and Inspection: able to speak in complete sentences Auscultation: clear to auscultation bilaterally Cardio regular rate and regular rhythm GI no (more content not included)... Normal [facility] Emergency Department Summary on 09-26-2024 Emergency Department Summary [facility] Medical Records Department [address] [place] [id number] Emergency Department Summary 09/26/24 MR#: [id number] Acct: [id number] Name: BRETT BOBBY Rep #: [id number] : 1990 33 From: Aba Murgiua MD PCP: Dr. Meena Flowers, DO Status:ADM IN Location: ICU [id number] HPI History of Present Illness Chief Complaint: Hyperglycemia Informant: patient Narrative Narrative: 33-year-old type I diabetic who injects around insulin and woke up at about 3:30 AM vomiting then feeling short of breath and feels like she may be in DKA. Has not used insulin this morning since she has not been able to eat anything. She states she seemed to be fine last night when she went to bed and has been using her insulin like normal. She states several days ago she had a recurrent Bartholin cyst/abscess that she was able to get to drain on her own and now she states it is completely resolved, but she has had no other symptoms of an illness recently. She states her Bartholin cyst/abscess is not sore anymore and is back to normal and feels fine. [facility] Medical History Tobacco abuse Stage 3a chronic kidney disease (CKD) Diabetes mellitus type 1, uncontrolled, insulin dependent Home Medications ???Medication ???Instructions ???Recorded ???Last Taken ???Type insulin aspart U-100 100 unit/mL See Protocol subcut TID PRN Unknown History (3 mL) subcutaneous pen (Novolog Hyperglycemia FlexPen U-100 Insulin aspart) insulin glargine-yfgn 100 unit/mL 30 unit (0.3 mL) subcut BID 04/05 Unknown Rx (3 mL) subcutaneous pen diabete #0 mL Allergy/AdvReac Type Severity Reaction Status Date / Time bee venom protein (honey bee) Allergy Anaphylaxis Verified 09/26/24 10:07 Family History Grandmother Diabetes Hypertension Heart disease Grandfather Diabetes Colon cancer Surgical History Hx of tonsillectomy History of partial hysterectomy Social History household members: children current occupational exposures/hazards: No Smoking Status: Light Smoker (<10/day) alcohol intake: current alcohol intake frequency: holidays/special occasions only substance use type: does not use ROS ROS ED Constitutional Constitutional ED: Reports fatigue; Denies chills or fever(s) Eyes Eyes: Denies change in vision or diplopia ENT ENT ED: Denies rhinorrhea or sore throat Cardiovascular Cardiovascular: Reports racing heartbeat; Denies chest pain Respiratory/Chest Respiratory/Chest: Reports dyspnea; Denies cough Gastrointestinal Gastrointestinal: Reports nausea and vomiting; Denies abdominal pain or diarrhea Genitourinary Genitourinary ED: Denies dysuria or hematuria Musculoskeletal Musculoskeletal: Denies back pain or neck pain Integumentary Denies abscess or rash Neurologic Neurologic: Denies headache(s), paresthesias or weakness Psychiatric Psychiatric: Denies anxiety or suicidal thoughts EXAM Physical Exam Const Vital Signs: 09/26/24 09:28 09/26/24 09:29 09/26/24 10:07 Temperature 96.1 F L 98.0 F Temperature Source Temporal Oral Pulse Rate 130 H 121 H Respiratory Rate 20 H 16 Respiratory Effort Normal Respiratory Pattern Normal Blood Pressure 132/91 H 116/78 Blood Pressure Mean 104 90 Pulse Ox 98 98 Oxygen Delivery Method Room Air Room Air Positive well nourished and well developed General Appearance ED: well developed and NAD HEENT Reports moist mucous membranes normocephalic and atraumatic Eyes PERRL and EOMs intact bilaterally Neck full ROM and supple Resp normal respiratory effort and clear to auscultation bilaterally Resp Narrative: Tachypneic without distress Cardio regular rate, regular rhythm and no murmurs Rate: tachycardic GI non-tender and non-distended Auscultation: normoactive bowel sounds Palpation: soft Back/Spine no CVA tenderness General Back: other FROM Extremity normal to inspection General Extremety ED: Negative for edema, pulses abnormal or tenderness General Extremity: Negative for edema or pulses abnormal Neuro oriented x3, CN's II-XII intact bilaterally and no sensory deficits noted Sensorium / Orientation: awake and alert Motor Exam: strength 5/5 throughout Psych mental status grossly normal Skin no rashes or lesions noted and no wounds MDM MDM MDM Narrative Medical decision making narrative: Started with given the patient liter of IV fluids along with Zofran until we were able to see her potassium level. Her EKG shows sinus tachycardia, I do not see any obvious U waves, nor sign of an injury. Init (more content not included)... Normal [facility] Eosinophil percentageOrdered By: Aba Murguia on 09-26-2024 Eosinophils/100 WBC (Bld) 12.0 % High 0-5 [facility] Epithelial cells.squamous LM Ql (Urine sed)Ordered By: Aba Murguia on 09-26-2024 Epithelial cells.squamous LM.HPF (Urine sed) [#/Area] 5 /[HPF] 5-10 [facility] Erythrocyte distribution wid th ratioOrdered By: Aba Murguia on 09-26-2024 Erythrocyte distribution width (RBC) [Ratio] 16.1 % High 11.6-14.6 [facility] Erythrocyte distribution wid th standard deviationOrdered By: Aba Murguia on 09-26-2024 Erythrocyte distribution width (RBC) [Entitic vol] 57.2 fL High 35.1-43.9 [facility] Estimation of creatinine patito aranceOrdered By: Aba Murguia on 09-26-2024 Estimated Creatinine Clearance Calc 83.54 ml/min 50-250 [facility] Fine Granular Casts LM.LPF ( Urine sed) [#/Area]Ordered By: Aba Murguia on 09-26-2024 Urine Fine Granular Casts 0-5 SEEN /lpf 0-5 [facility] GFR/1.73 sq M.predicted rey g non-blacks MDRD (S/P/Bld) [Vol rate/Area]Ordered By: Aba Murguia on 09-26-2024 Estimated GFR (MDRD) Non-Af Amer 93 >60 [facility] Comment on above: mL/min/1.73m2 CKD-EP I Creatinine Equation (2020) Glucose Ql (U)Ordered By: Sabas Murguia on 09-26-2024 Glucose (U) [Mass/Vol] 1000 mg/dL High Normal [facility]dered By: Aba Murguia on 09-26-2024 Bedside Glucose (Misc Panel) 341 mg/dL High 74-106 [facility] Comment on above: MANAGEMENT OF PATIEN T CARE PER NURSING PROTOCOL Hematocrit Auto (Bld) [Volum e fraction]Ordered By: Aba Murguia on 09-26-2024 Hematocrit (Bld) [Volume fraction] 45.9 % 37-47 [facility] Hemoglobin A1con 09-26-2024 HbA1c (Bld) [Mass fraction] 10.2 % Normal <=5.6 [facility] Comment on above: Performed By: #### L [id number] #### [facility] [address] [place], [place] [address]all sonia. [place], [place], [id number] Hemoglobin A1c percentageOrd ered By: Maggie Reed on 09-26-2024 HbA1c (Bld) [Mass fraction] 10.2 % >5.7 [facility] Hemoglobin measurementOrdere d By: Aba Murguia on 09-26-2024 Hemoglobin (Bld) [Mass/Vol] 14.2 g/dL 12.0-15.0 [facility] Immature granulocytes/100 WB C Auto (Bld)Ordered By: Aba Murguia on 09-26-2024 Immature granulocytes/100 WBC (Bld) 0.500 % 0.0-0.9 [facility] Comment on above: IG% - Immature Granu locytes (promyelocytes, myelocytes and metamyelocytes) > 1% indicates that a LEFT SHIFT is Present. Ketones Test strip Ql (U)Ord ered By: Aba Murguia on 09-26-2024 Ketones Ql (U) 150 mg/dl Abnormal Negative [facility] Comment on above: CRITICAL VALUE *HCRI TICAL VALUE CALLED TO CRISTIAN VILLALPANDO (ER)09/26/24 1029 Harjit Whitley.RESULTS READ BACK BY SAME. [id number] 09-26-2024 BETA-HYDROXYBUT 9.5 mmol/L Normal 0.0-0.3 [facility] Comment on above: Performed By: #### L [id number] #### [facility] [address] [place], [address] Lymphocytes Auto (Unsp spec) [#/Vol]Ordered By: Aba Murguia on 09-26-2024 Lymphocytes (Bld) [#/Vol] 1.92 10*3/uL 0.83-4.51 [facility] Lymphocytes/100 WBC Auto (Un sp spec)Ordered By: Aba Murguia on 09-26-2024 Lymphocytes/100 WBC (Bld) 13.3 % Low 19-41 [facility] MCV (mean corpuscular volume ) determinationOrdered By: Aba Murguia on 09-26-2024 MCV (RBC) [Entitic vol] 95.4 fL 81-99 [facility] Mean corpuscular hemoglobin (MCH) determinationOrdered By: Aba Murguia on 09-26-2024 MCH (RBC) [Entitic mass] 29.5 pg 27.0-32.0 [facility] Mean corpuscular hemoglobin concentration (MCHC) determinationOrdered By: Aba Murguia on 09-26-2024 MCHC (RBC) [Mass/Vol] 30.9 g/dL Low 32-36 [facility] Mean platelet volume determi nationOrdered By: Aba Murguia on 09-26-2024 Platelet mean volume (Bld) [Entitic vol] 9.5 fL 6.2-12.0 [facility] Microscopic analysis of urin e for red blood cells (RBC)Ordered By: Aba Murguia on 09-26-2024 Urine RBC 0-5 SEEN /hpf 0-5 [facility] Monocyte percentageOrdered B y: Aba Murguia on 09-26-2024 Monocytes/100 WBC (Bld) 4.4 % 0-10 [facility] Mucus LM Ql (Urine sed)Order ed By: Aba Murguia on 09-26-2024 Mucus Ql (Urine sed) 0 SEEN /hpf [facility] Neutrophil percentageOrdered By: Aba Murguia on 09-26-2024 Neutrophils/100 WBC (Bld) 68.9 % 47-70 [facility] Nitrite Test strip Ql (U)Ord ered By: Aba Murguia on 09-26-2024 Nitrite Ql (U) Negative Negative [facility] No Panel InformationOrdered By: Aba Murguia on 09-26-2024 Bld Gas Crit Called To/Read Back By Yes [facility] Blood Gas Notified Time 09:59:55 [facility] Blood Gas Notified Whom everardo [facility] Blood Gas Sample Site Not entered [facility] Blood Gas Specimen Type BETHANY [facility] Oxygen Delivery Device Room Air [facility] Beta-Hydroxybutyric Acid mmol/L 9.5 mmol/L 0.0-0.3 [facility] Nucleated red blood cell per centageOrdered By: Aba Murguia on 09-26-2024 Nucleated RBC/100 WBC (Bld) [Ratio] 0 % 0-5 [facility] Oxygen (BldV) [Partial press ure]Ordered By: Aba Murguia on 09-26-2024 Venous Blood Partial Pressure O2 157 mmHg High 25-40 [facility] Platelet countOrdered By: Sabas Murguia on 09-26-2024 Platelets (Bld) [#/Vol] 464 10*3/uL High 150-450 [facility] Platelets LM Ql (Bld)Ordered By: Aba Murguia on 09-26-2024 Platelet Estimate SLT INC ADEQ [facility] Potassium (Unsp spec) [Mass/ Vol]Ordered By: Aba Murguia on 09-26-2024 Potassium [Moles/Vol] 4.7 mmol/L 3.3-5.1 [facility] Protein Test strip Ql (U)Ord ered By: Aba Murguia on 09-26-2024 Protein Ql (U) 100 mg/dl High Negative [facility] RBC Auto (Bld) [#/Vol]Ordere d By: Aba Murguia on 09-26-2024 RBC (Bld) [#/Vol] 4.81 10*6/uL 4.2-5.4 [facility] Serum creatinine measurement (mass/volume)Ordered By: Aba Murguia on 09-26-2024 Creatinine [Mass/Vol] 0.84 mg/dL 0.70-1.20 [facility] Serum glucose measurement (m ass/volume)Ordered By: Aba Murguia on 09-26-2024 Glucose [Mass/Vol] 339 mg/dL High 70-99 [facility] Serum or plasma calcium xin urement (mass/volume)Ordered By: Aba Mruguia on 09-26-2024 Calcium [Mass/Vol] 9.3 mg/dL 7.6-11.0 [facility] Serum or plasma urea nitroge n measurement (mass/volume)Ordered By: Aba Murguia on 09-26-2024 Urea nitrogen [Mass/Vol] 10 mg/dL 4-19 [facility] Sodium levelOrdered By: Andrzej Murguia on 09-26-2024 Sodium [Moles/Vol] 134 mmol/L 133-145 [facility] Urinalysis, Completeon 09-26 BACTERIA 1+ /hpf Normal None Seen [facility] Comment on above: Order Comment: CLEAN CATCH Performed By: #### L [id number] #### [facility] [address] [place], [address] CAST,FINE GRAN 0-5 SEEN Normal 0-5 [facility] Comment on above: Order Comment: CLEAN CATCH Performed By: #### L [id number] #### [facility] [address] [place], [address] RBC 0-5 SEEN Normal 0-5 [facility] Comment on above: Order Comment: CLEAN CATCH Performed By: #### L [id number] #### [facility] [address] [place], [address] EPI,SQUAMOUS 5-10 SEEN Normal 5-10 [facility] Comment on above: Order Comment: CLEAN CATCH Performed By: #### L [id number] #### [facility] [address] [place], [address] Mucus Ql (Urine sed) 0 SEEN Normal [facility] Comment on above: Order Comment: CLEAN CATCH Performed By: #### L [id number] #### [facility] [address] [place], [address] WBC 0 SEEN Normal 0-5 [facility] Comment on above: Order Comment: CLEAN CATCH Performed By: #### L [id number] #### [facility] [address] [place], [address] Urine blood detectionOrdered By: Aba Murguia on 09-26-2024 Urine Occult Blood 150 /ul High Negative [facility] Urine clarityOrdered By: Selin Murguia on 09-26-2024 Clarity (U) Clear Clear [facility] Urine color determinationOrd ered By: Aba Murguia on 09-26-2024 Color (U) Yellow Yellow [facility] Urine leukocyte esterase det ection by dipstickOrdered By: Aba Murguia on 09-26-2024 Leukocyte esterase Test strip Ql (U) Negative Negative [facility] Urine pHOrdered By: Aba Murguia on 09-26-2024 pH (U) 5.0 [pH] 5.0 - 8.0 [facility] Urine sediment bacteria coun t by microscopy (number/high power field)Ordered By: Aba Murguia on 09-26-2024 Bacteria LM.HPF (Urine sed) [#/Area] 1 /[HPF] None Seen [facility] Urine specific gravity measu rementOrdered By: Aba Everardo on 09-26-2024 Specific gravity (U) [Rel density] 1.030 1.002-1.030 [facility] Urobilinogen Ql (U)Ordered B y: Aba Everardo on 09-26-2024 Urine Urobilinogen Normal mg/dl Normal [facility] Venous Blood Gason Blood Gas Type BETHANY Normal [facility] Comment on above: Performed By: #### L 501.080 #### [facility] [address] [place], [address] CO2 [Moles/Vol] 6 mmol/L Low 23-33 [facility] Comment on above: Performed By: #### L [id number] #### [facility] [address] [place], [address] HCO3 (Bld) [Moles/Vol] 5 mmol/L Low 22-26 [facility] Comment on above: Performed By: #### L [id number] #### [facility] [address] [place], [address] O2 Delivery Dev Room Air [facility] Comment on above: Performed By: #### L [id number] #### [facility] [address] [place], [address] Read Back By Yes [facility] Comment on above: Performed By: #### L [id number] #### [facility] [address] [place], [address] Results To [facility] Comment on above: Performed By: #### L [id number] #### [facility] [address] [place], [address] SITE Not entered Normal [facility] Comment on above: Performed By: #### L [id number] #### [facility] [address] [place], [id number] Time Given 09:59:55 Normal [facility] Comment on above: Performed By: #### L [id number] #### [facility] [address] [place], [place], [id number] VBG BE -25 mmol/L Low -1.0-3.5 [facility] Comment on above: Performed By: #### L [id number] #### [facility] [address] [place], [place], [id number] VBG pCO2 19.2 mmHg Low 41-51 [facility] Comment on above: Performed By: #### L [id number] #### [facility] [address] [place], [address] VBG pH 7.06 Invalid Interpretation Code 7.32-7.42 [facility] Comment on above: Performed By: #### L [id number] #### [facility] [address] [place], [address] VBG PO2 157 mmHg High 25-40 [facility] Comment on above: Performed By: #### L [id number] #### [facility] [address] [place], [address] VBG SO2 99 High 50-70 [facility] Comment on above: Performed By: #### L [id number] #### [facility] [address] [place], [place], [address] Venous blood bicarbonate reji surementOrdered By: Aba Murguia on 09-26-2024 HCO3 (Bld) [Moles/Vol] 5 mmol/L Low 22-26 [facility] Venous blood oxygen saturati on measurementOrdered By: Aba Murguia on 09-26-2024 Oxygen saturation in Blood 99 % High 50-70 [facility] White blood cell (WBC) count Ordered By: Aba Murguia on 09-26-2024 WBC (Bld) [#/Vol] 14.5 10*3/uL High 4.4-11.0 [facility] White blood cell countOrdere d By: Aba Murguia on 09-26-2024 Urine WBC 0 SEEN /hpf 0-5 [facility] pH (BldV)Ordered By: Aba Murgiua on 09-26-2024 Venous Blood pH 7.06 Low 7.32-7.42 [facility] CBC W/Diff, Automatedon 03-11 PATH REV Reviewed Normal [facility] Comment on above: Result Comment: Neut rophilic leukocytosis. Clinical correlation necessary. Rob Petit M.D. 04/07/24 AMENDED REPORT 04/07/24 1257 PATH REV previously reported as: November mey Performed By: #### L 500.2500 #### [facility] [address] [place], [address] Basic Metabolic Profile (BMP )on 04-05-2024 BUN Normal 7-18 [facility] Comment on above: Order Comment: Call MD with results STAT Result Comment: Dimas elled via OM: Ordered Performed By: #### L 501.080 #### [facility] [address] [place], [address] BUN/CRE Normal 10-20 [facility] Comment on above: Order Comment: Call MD with results STAT Result Comment: Caneric elled via OM: MD Ordered Performed By: #### L [id number] #### [facility] [address] [place], [address] CA,Total Normal 8.5-10.1 [facility] Comment on above: Order Comment: Call MD with results STAT Result Comment: Dimas elled via OM: Ordered Performed By: #### L [id number] #### [facility] [address] [place], [address] CL Normal 98-107 [facility] Comment on above: Order Comment: Call MD with results STAT Result Comment: Canc elled via OM: MD Ordered Performed By: #### L [id number] #### [facility] [address] [place], [address] CO2 Normal 21.0-32.0 [facility] Comment on above: Order Comment: Call MD with results STAT Result Comment: Canc elled via OM: MD Ordered Performed By: #### L [id number] #### [facility] [address] [place], [address] CREAT,SERUM Normal 0.55-1.02 [facility] Comment on above: Order Comment: Call MD with results STAT Result Comment: Canc elled via OM: MD Ordered Performed By: #### L [id number] #### [facility] [address] [place], [address] EST GFR Normal >60 [facility] Comment on above: Order Comment: Call MD with results STAT Result Comment: Canc elled via OM: MD Ordered Performed By: #### L [id number] #### [facility] [address] [place], [address] EST GFR - AA Normal >60 [facility] Comment on above: Order Comment: Call MD with results STAT Result Comment: Canc elled via OM: MD Ordered Performed By: #### L [id number] #### [facility] [address] [place], [address] GAP Normal 5-15 [facility] Comment on above: Order Comment: Call MD with results STAT Result Comment: Canc elled via OM: MD Ordered Performed By: #### L [id number] #### [facility] [address] [place], [address] GLU Normal 74-106 [facility] Comment on above: Order Comment: Call MD with results STAT Result Comment: Canc elled via OM: MD Ordered Performed By: #### L [id number] #### [facility] [address] [place], [address] Potassium Normal 3.5-5.1 [facility] Comment on above: Order Comment: Call MD with results STAT Result Comment: Canc elled via OM: MD Ordered Performed By: #### L [id number] #### [facility] [address] [place], [address] Basic Metabolic Profile (BMP) Normal 136-145 [facility] Comment on above: Order Comment: Call MD with results STAT Result Comment: Canc elled via OM: MD Ordered Performed By: #### L [id number] #### [facility] [address] [place], [address] BUN/CRE 10.1 RATIO Normal 10-20 [facility] Comment on above: Performed By: #### L [id number] #### [facility] [address] [place], [address] CA,Total 8.5 mg/dL Normal 8.5-10.1 [facility] Comment on above: Performed By: #### L [id number] #### [facility] [address] [place], [address] Chloride [Moles/Vol] 106 mmol/L Normal 98-107 [facility] Comment on above: Performed By: #### L [id number] #### [facility] [address] [place], [address] CO2 [Moles/Vol] 14.0 mmol/L Low 21.0-32.0 [facility] Comment on above: Performed By: #### L [id number] #### [facility] [address] [place], [address] Creatinine [Mass/Vol] 0.69 mg/dL Normal 0.55-1.02 [facility] Comment on above: Result Comment: The validity of the calculated GFR GFRAA in patients over 70 years has not been determined. Clinical correlation is essential. Performed By: #### L [id number] #### [facility] [address] [place], [address] ECRCL 100.26 ml/min Normal [facility] Comment on above: Performed By: #### L 501.080 #### [facility] [address] [place], [address] EST GFR - AA 125 mL/min Normal >60 [facility] Comment on above: Result Comment: Afri can [place] GFR Calc Performed By: #### L [id number] #### [facility] [address] [place], [address] GAP 12 Normal 5-15 [facility] Comment on above: Performed By: #### L [id number] #### [facility] [address] [place], [address] GFR/1.73 sq M.predicted among non-blacks MDRD (S/P/Bld) [Vol rate/Area] 103 mL/min/{1.73_m2} Normal >60 [facility] Comment on above: Result Comment: Non- GFR Calc Performed By: #### L [id number] #### [facility] [address] [place], [address] Glucose [Mass/Vol] 341 mg/dL High 74-106 [facility] Comment on above: Result Comment: Gluc ose result greater than or equal to 200 mg/dL suggests DIABETES MELLITUS per A.D.A. criteria. Performed By: #### L [id number] #### [facility] [address] [place], [address] Potassium [Moles/Vol] 4.8 mmol/L Normal 3.5-5.1 [facility] Comment on above: Performed By: #### L [id number] #### [facility] [address] [place], [address] Sodium [Moles/Vol] 132 mmol/L Low 136-145 [facility] Comment on above: Performed By: #### L [id number] #### [facility] [address] [place], [address] Urea nitrogen [Mass/Vol] 7 mg/dL Normal 7-18 [facility] Comment on above: Performed By: #### L 501.080 #### [facility] [address] [place], [address] BUN Normal 7-18 [facility] Comment on above: Order Comment: Call MD with results STAT Result Comment: Dimas chavezed via OM: MD Ordered Performed By: #### L [id number] #### [facility] [address] [place], [address] BUN/CRE Normal 10-20 [facility] Comment on above: Order Comment: Call MD with results STAT Result Comment: Dimas roblero via OM: MD Ordered Performed By: #### L [id number] #### [facility] [address] [place], [address] CA,Total Normal 8.5-10.1 [facility] Comment on above: Order Comment: Call with results STAT Result Comment: Dimas roblero via OM: MD Ordered Performed By: #### L [id number] #### [facility] [address] [place], [address] CL Normal 98-107 [facility] Comment on above: Order Comment: Call with results STAT Result Comment: Dimas roblero via OM: Ordered Performed By: #### L [id number] #### [facility] [address] [place], [address] CO2 Normal 21.0-32.0 [facility] Comment on above: Order Comment: Call MD with results STAT Result Comment: Canc elled via OM: MD Ordered Performed By: #### L [id number] #### [facility] [address] [place], [address] CREAT,SERUM Normal 0.55-1.02 [facility] Comment on above: Order Comment: Call MD with results STAT Result Comment: Canc elled via OM: MD Ordered Performed By: #### L [id number] #### [facility] [address] [place], [address] EST GFR Normal >60 [facility] Comment on above: Order Comment: Call MD with results STAT Result Comment: Canc elled via OM: MD Ordered Performed By: #### L [id number] #### [facility] [address] [place], [address] EST GFR - AA Normal >60 [facility] Comment on above: Order Comment: Call MD with results STAT Result Comment: Canc elled via OM: MD Ordered Performed By: #### L [id number] #### [facility] [address] [place], [address] GAP Normal 5-15 [facility] Comment on above: Order Comment: Call MD with results STAT Result Comment: Canc elled via OM: MD Ordered Performed By: #### L [id number] #### [facility] [address] [place], [address] GLU Normal 74-106 [facility] Comment on above: Order Comment: Call MD with results STAT Result Comment: Canc elled via OM: MD Ordered Performed By: #### L [id number] #### [facility] [address] [place], [address] Potassium Normal 3.5-5.1 [facility] Comment on above: Order Comment: Call MD with results STAT Result Comment: Canc elled via OM: MD Ordered Performed By: #### L [id number] #### [facility] [address] [place], [address] Basic Metabolic Profile (BMP) Normal 136-145 [facility] Comment on above: Order Comment: Call MD with results STAT Result Comment: Dimas roblero via OM: MD Ordered Performed By: #### L [id number] #### [facility] [address] [place], [address] BUN/CRE 8.4 RATIO Low 10-20 [facility] Comment on above: Performed By: #### L [id number] #### [facility] [address] [place], [address] CA,Total 8.7 mg/dL Normal 8.5-10.1 [facility] Comment on above: Performed By: #### L [id number] #### [facility] [address] [place], [address] Chloride [Moles/Vol] 109 mmol/L High 98-107 [facility] Comment on above: Performed By: #### L [id number] #### [facility] [address] [place], [address] CO2 [Moles/Vol] 15.0 mmol/L Low 21.0-32.0 [facility] Comment on above: Performed By: #### L 501.080 #### [facility] [address] [place], [address] Creatinine [Mass/Vol] 0.60 mg/dL Normal 0.55-1.02 [facility] Comment on above: Result Comment: The validity of the calculated GFR GFRAA in patients over 70 years has not been determined. Clinical correlation is essential. Performed By: #### L 501.080 #### [facility] [address] [place], [address] ECRCL 115.29 ml/min Normal [facility] Comment on above: Performed By: #### L 501.080 #### [facility] [address] [place], [address] EST GFR - AA 147 mL/min Normal >60 [facility] Comment on above: Result Comment: Afri can [place] GFR Calc Performed By: #### L 501.080 #### [facility] [address] [place], [address] GAP 11 Normal 5-15 [facility] Comment on above: Performed By: #### L 501.080 #### [facility] [address] [place], [address] GFR/1.73 sq M.predicted among non-blacks MDRD (S/P/Bld) [Vol rate/Area] 122 mL/min/{1.73_m2} Normal >60 [facility] Comment on above: Result Comment: Non- GFR Calc Performed By: #### L 501.080 #### [facility] [address] [place], [address] Glucose [Mass/Vol] 200 mg/dL High 74-106 [facility] Comment on above: Result Comment: Gluc ose result greater than or equal to 200 mg/dL suggests DIABETES MELLITUS per A.D.A. criteria. Performed By: #### L [id number] #### [facility] [address] [place], [address] Potassium [Moles/Vol] 4.2 mmol/L Normal 3.5-5.1 [facility] Comment on above: Performed By: #### L [id number] #### [facility] [address] [place], [address] Sodium [Moles/Vol] 135 mmol/L Low 136-145 [facility] Comment on above: Performed By: #### L 501.080 #### [facility] [address] [place], [address] Urea nitrogen [Mass/Vol] 5 mg/dL Low 7-18 [facility] Comment on above: Performed By: #### L 501.080 #### [facility] [address] [place], [address] BUN Normal 7-18 [facility] Comment on above: Order Comment: Call MD with results STAT Result Comment: Canc elled via OM: MD Ordered Performed By: #### L [id number] #### [facility] [address] [place], [address] BUN/CRE Normal 10-20 [facility] Comment on above: Order Comment: Call MD with results STAT Result Comment: Caneric elled via OM: MD Ordered Performed By: #### L [id number] #### [facility] [address] [place], [address] CA,Total Normal 8.5-10.1 [facility] Comment on above: Order Comment: Call MD with results STAT Result Comment: Caneric elled via OM: MD Ordered Performed By: #### L [id number] #### [facility] [address] [place], [address] CL Normal 98-107 [facility] Comment on above: Order Comment: Call MD with results STAT Result Comment: Dimas elled via OM: MD Ordered Performed By: #### L 100.0100 #### [facility] [address] [place], [address] CO2 Normal 21.0-32.0 [facility] Comment on above: Order Comment: Call MD with results STAT Result Comment: Dimas elled via OM: MD Ordered Performed By: #### L 100.0100 #### [facility] [address] [place], [address] CREAT,SERUM Normal 0.55-1.02 [facility] Comment on above: Order Comment: Call MD with results STAT Result Comment: Canc elled via OM: MD Ordered Performed By: #### L 100.0100 #### [facility] [address] [place], [address] EST GFR Normal >60 [facility] Comment on above: Order Comment: Call MD with results STAT Result Comment: Canc elled via OM: MD Ordered Performed By: #### L 100.0100 #### [facility] [address] [place], [address] EST GFR - AA Normal >60 [facility] Comment on above: Order Comment: Call MD with results STAT Result Comment: Canc elled via OM: MD Ordered Performed By: #### L 100.0100 #### [facility] [address] [place], [address] GAP Normal 5-15 [facility] Comment on above: Order Comment: Call MD with results STAT Result Comment: Canc elled via OM: MD Ordered Performed By: #### L 100.0100 #### [facility] [address] [place], [address] GLU Normal 74-106 [facility] Comment on above: Order Comment: Call MD with results STAT Result Comment: Canc elled via OM: MD Ordered Performed By: #### L 100.0100 #### [facility] [address] [place], [address] Potassium Normal 3.5-5.1 [facility] Comment on above: Order Comment: Call MD with results STAT Result Comment: Canc elled via OM: MD Ordered Performed By: #### L 100.0100 #### [facility] [address] [place], [address] Basic Metabolic Profile (BMP) Normal 136-145 [facility] Comment on above: Order Comment: Call MD with results STAT Result Comment: Canc elled via OM: MD Ordered Performed By: #### L 100.0100 #### [facility] [address] [place], [address] BUN Normal 7-18 [facility] Comment on above: Order Comment: Call MD with results STAT Result Comment: CANC ELLATION ORDER Performed By: #### L 501.080 #### [facility] [address] [place], [address] BUN/CRE Normal 10-20 [facility] Comment on above: Order Comment: Call MD with results STAT Result Comment: CANC ELLATION ORDER Performed By: #### L 501.080 #### [facility] [address] [place], [address] CA,Total Normal 8.5-10.1 [facility] Comment on above: Order Comment: Call MD with results STAT Result Comment: CANC ELLATION ORDER Performed By: #### L 501.080 #### [facility] [address] [place], [address] CL Normal 98-107 [facility] Comment on above: Order Comment: Call MD with results STAT Result Comment: CANC ELLATION ORDER Performed By: #### L 501.080 #### [facility] [address] [place], [address] CO2 Normal 21.0-32.0 [facility] Comment on above: Order Comment: Call MD with results STAT Result Comment: CANC ELLATION ORDER Performed By: #### L 501.080 #### [facility] [address] [place], [address] CREAT,SERUM Normal 0.55-1.02 [facility] Comment on above: Order Comment: Call MD with results STAT Result Comment: CANC ELLATION ORDER Performed By: #### L 501.080 #### [facility] [address] [place], [address] EST GFR Normal >60 [facility] Comment on above: Order Comment: Call MD with results STAT Result Comment: CANC ELLATION ORDER Performed By: #### L 501.080 #### [facility] [address] [place], [address] EST GFR - AA Normal >60 [facility] Comment on above: Order Comment: Call MD with results STAT Result Comment: CANC ELLATION ORDER Performed By: #### L 501.080 #### [facility] [address] [place], [address] GAP Normal 5-15 [facility] Comment on above: Order Comment: Call MD with results STAT Result Comment: CANC ELLATION ORDER Performed By: #### L 501.080 #### [facility] [address] [place], [address] GLU Normal 74-106 [facility] Comment on above: Order Comment: Call MD with results STAT Result Comment: CANC ELLATION ORDER Performed By: #### L 501.080 #### [facility] [address] [place], [address] Potassium Normal 3.5-5.1 [facility] Comment on above: Order Comment: Call MD with results STAT Result Comment: CANC ELLATION ORDER Performed By: #### L 501.080 #### [facility] [address] [place], [address] Basic Metabolic Profile (BMP) Normal 136-145 [facility] Comment on above: Order Comment: Call MD with results STAT Result Comment: CANC ELLATION ORDER Performed By: #### L 501.080 #### [facility] [address] [place], [address] Bedside Glucoseon 04-05-2024 FINGERSTICK GLU 324 mg/dL High 74-106 [facility] Comment on above: Result Comment: KAZ YUN OF PATIENT CARE PER NURSING PROTOCOL Performed By: #### L 501.080 #### [facility] [address] [place], [address] FINGERSTICK GLU 202 mg/dL High 74-106 [facility] Comment on above: Result Comment: KAZ GEMENT OF PATIENT CARE PER NURSING PROTOCOL Performed By: #### L 501.080 #### [facility] [address] [place], [address] FINGERSTICK GLU 97 mg/dL Normal 74-106 [facility] Comment on above: Result Comment: KAZ GEMENT OF PATIENT CARE PER NURSING PROTOCOL Performed By: #### L 501.080 #### [facility] [address] [place], [address] CBC W/Diff, Automatedon 03-10 Lymphocytes/100 WBC (Bld) 13.1 % Low 19-41 [facility] Comment on above: Performed By: #### L 501.080 #### [facility] [address] [place], [address] Neutrophils/100 WBC (Bld) 79.2 % High 47-70 [facility] Comment on above: Performed By: #### L 501.080 #### [facility] [address] [place], [address] Discharge Instructionon 03-10 Discharge Instruction [facility] Medical Records Department [address] [place] [address] Instructions for Home/Discharge Instructions 04/05/24 1333 MR#: [id number] Acct: [id number] Name: BRETT BOBBY Rep #: [id number] : 1990 33 From: Michael Acosta DO PCP: Dr. Meena Flowers DO Status:ADM IN Discharge Instructions Diet Discharge Diet: - (Resume previous home diet) Activity Discharge Activity: Return to Normal Activity Weight Bearing Status: Full weight bearing Follow Up Care Test Results: Test results from this visit will be discussed in further detail at your follow-up appointment, if applicable. Discharge Plan Admission Admit Date/Time: 04/04/24 11:03 Primary Reason for Your Visit: DKA Attending Provider: Michael Acosta Primary Care Provider: Meena Flowers Consulting Providers: Bryce Julien Discharge Orders/Prescriptions Prescriptions: New insulin glargine-yfgn 100 unit/mL (3 mL) Insulin Pen 30 unit subcut BID Qty: 0 0RF Continued insulin aspart U-100 [Novolog FlexPen U-100 Insulin] 100 unit/mL (3 mL) insulin pen See Protocol SUBCUT TID PRN (Reason: Hyperglycemia) Protocol: 6. Sliding Scale Insulin Custom Condition: mg/dl range Dose/Route: Number of Units Condition: 150-199 Dose/Route: 2 Condition: 200-250 Dose/Route: 4 Condition: 251-300 Dose/Route: 6 Condition: 301-349 Dose/Route: 8 Condition: 350-399 Dose/Route: 10 Condition: 400+ Dose/Route: 12 Protocol Text: Custom Sliding Scale potassium chloride 10 mEq tablet extended release 20 meq PO BID Discontinued insulin glargine [Lantus Solostar U-100 Insulin] 100 unit/mL (3 mL) insulin pen 24 unit subcut BID Referrals / Follow Up: Meena Flowers DO [Primary Care Provider] - Within 2 Weeks Disposition Disposition (needs filled in before D/C Order can be placed): Home, Self Care 04/05/24 1339 Michael Acosta DO CC: Dr. Meena Flowers DO; Dr. Bryce Julien MD Signed Normal [facility] 12 Lead EKGon 04-04-2024 12 Lead EKG [facility] [address] [place] [address] 12 Lead EKG 04/04/24 0854 MR#: [id number] Acct: [id number] Name: BRETT BOBBY Rep #: [id number] : 1990 33 From: Bob Henriquez MD Attending Dr: Dr. Michael Acosta DO Status: D IS IN Ordering Dr: Aba Murguia MD Date: 04/04/24 Location: ICU Sex: F C Admitted: 04/04/24 Test Reason : COUGH Blood Pressure : / mmHG Vent. Rate : 112 BPM Atrial Rate : 112 BPM P-R Int : 134 ms QRS Dur : 072 ms QT Int : 300 ms P-R-T Axes : 072 012 040 degrees QTc Int : 409 ms Sinus tachycardia Low voltage QRS Borderline ECG Confirmed by CAMERON JENNINGS, BOB ([id number]), web content editor JUANJO COVARRUBIAS ([id number]) on 04/07/2024 7:30:04 AM Referred By: Confirmed By:BOB HENRIQUEZ MD 04/07/2430 Date Bob Henriquez MD CC: Dr. Aba Murguia MD; Dr. Meena Flowers DO; Dr. Michael Acosta DO Signed Normal [facility] Acetone Serumon 04-04-2024 ACETONE SERUM Negative Normal NEG [facility] Comment on above: Performed By: #### L 501.080 #### [facility] [address] [place], [address] ACETONE SERUM MODERATE Abnormal NEG [facility] Comment on above: Performed By: #### L 500.2500 #### [facility] [address] [place], [address] Basic Metabolic Profile (BMP )on 04-04-2024 BUN/CRE 8.5 RATIO Low 10-20 [facility] Comment on above: Order Comment: Call with results STAT Performed By: #### L 501.080 #### [facility] [address] [place], [address] CA,Total 8.5 mg/dL Normal 8.5-10.1 [facility] Comment on above: Order Comment: Call with results STAT Performed By: #### L 501.080 #### [facility] [address] [place], [address] Chloride [Moles/Vol] 110 mmol/L High 98-107 [facility] Comment on above: Order Comment: Call with results STAT Performed By: #### L 501.080 #### [facility] [address] [place], [address] CO2 [Moles/Vol] 16.0 mmol/L Low 21.0-32.0 [facility] Comment on above: Order Comment: Call MD with results STAT Performed By: #### L 501.080 #### [facility] [address] [place], [address] Creatinine [Mass/Vol] 0.70 mg/dL Normal 0.55-1.02 [facility] Comment on above: Order Comment: Call MD with results STAT Result Comment: The validity of the calculated GFR GFRAA in patients over 70 years has not been determined. Clinical correlation is essential. Performed By: #### L 501.080 #### [facility] [address] [place], [address] ECRCL 98.36 ml/min Normal [facility] Comment on above: Order Comment: Call MD with results STAT Performed By: #### L 501.080 #### [facility] [address] [place], [address] EST GFR - AA 122 mL/min Normal >60 [facility] Comment on above: Order Comment: Call MD with results STAT Result Comment: Afri can [place] GFR Calc Performed By: #### L 501.080 #### [facility] [address] [place], [address] GAP 8 Normal 5-15 [facility] Comment on above: Order Comment: Call MD with results STAT Performed By: #### L 501.080 #### [facility] [address] [place], [address] GFR/1.73 sq M.predicted among non-blacks MDRD (S/P/Bld) [Vol rate/Area] 101 mL/min/{1.73_m2} Normal >60 [facility] Comment on above: Order Comment: Call MD with results STAT Result Comment: Non- GFR Calc Performed By: #### L 501.080 #### [facility] [address] [place], [address] Glucose [Mass/Vol] 163 mg/dL High 74-106 [facility] Comment on above: Order Comment: Call MD with results STAT Result Comment: Fast ing Glucose result greater than or equal to 126 mg/dL suggests DIABETES MELLITUS per A.D.A. criteria. Performed By: #### L 501.080 #### [facility] [address] [place], [address] Potassium [Moles/Vol] 3.6 mmol/L Normal 3.5-5.1 [facility] Comment on above: Order Comment: Call MD with results STAT Performed By: #### L 501.080 #### [facility] [address] [place], [address] Sodium [Moles/Vol] 134 mmol/L Low 136-145 [facility] Comment on above: Order Comment: Call MD with results STAT Performed By: #### L 501.080 #### [facility] [address] [place], [address] Urea nitrogen [Mass/Vol] 6 mg/dL Low 7-18 [facility] Comment on above: Order Comment: Call MD with results STAT Performed By: #### L 501.080 #### [facility] [address] [place], [address] BUN/CRE 7.3 RATIO Low 10-20 [facility] Comment on above: Order Comment: Call MD with results STAT Performed By: #### L 501.080 #### [facility] [address] [place], [address] CA,Total 8.6 mg/dL Normal 8.5-10.1 [facility] Comment on above: Order Comment: Call MD with results STAT Performed By: #### L 501.080 #### [facility] [address] [place], [address] Chloride [Moles/Vol] 109 mmol/L High 98-107 [facility] Comment on above: Order Comment: Call MD with results STAT Performed By: #### L 501.080 #### [facility] [address] [place], [address] CO2 [Moles/Vol] 13.0 mmol/L Low 21.0-32.0 [facility] Comment on above: Order Comment: Call MD with results STAT Performed By: #### L 501.080 #### [facility] [address] [place], [address] Creatinine [Mass/Vol] 0.83 mg/dL Normal 0.55-1.02 [facility] Comment on above: Order Comment: Call MD with results STAT Result Comment: The validity of the calculated GFR GFRAA in patients over 70 years has not been determined. Clinical correlation is essential. Performed By: #### L 501.080 #### [facility] [address] [place], [address] ECRCL 82.96 ml/min Normal [facility] Comment on above: Order Comment: Call MD with results STAT Performed By: #### L 501.080 #### [facility] [address] [place], [address] EST GFR - AA 101 mL/min Normal >60 [facility] Comment on above: Order Comment: Call MD with results STAT Result Comment: Afri can [place] GFR Calc Performed By: #### L 501.080 #### [facility] [address] [place], [address] GAP 11 Normal 5-15 [facility] Comment on above: Order Comment: Call MD with results STAT Performed By: #### L 501.080 #### [facility] [address] [place], [address] GFR/1.73 sq M.predicted among non-blacks MDRD (S/P/Bld) [Vol rate/Area] 84 mL/min/{1.73_m2} Normal >60 [facility] Comment on above: Order Comment: Call MD with results STAT Result Comment: Non- GFR Calc Performed By: #### L 501.080 #### [facility] [address] [place], [address] Glucose [Mass/Vol] 237 mg/dL High 74-106 [facility] Comment on above: Order Comment: Call MD with results STAT Result Comment: Gluc ose result greater than or equal to 200 mg/dL suggests DIABETES MELLITUS per A.D.A. criteria. Performed By: #### L 501.080 #### [facility] [address] [place], [address] Potassium [Moles/Vol] 4.1 mmol/L Normal 3.5-5.1 [facility] Comment on above: Order Comment: Call MD with results STAT Performed By: #### L 501.080 #### [facility] [address] [place], [address] Sodium [Moles/Vol] 132 mmol/L Low 136-145 [facility] Comment on above: Order Comment: Call MD with results STAT Performed By: #### L 501.080 #### [facility] [address] [place], [address] Urea nitrogen [Mass/Vol] 6 mg/dL Low 7-18 [facility] Comment on above: Order Comment: Call MD with results STAT Performed By: #### L 501.080 #### [facility] [address] [place], [address] BUN/CRE 8.8 RATIO Low 10-20 [facility] Comment on above: Performed By: #### L [id number] #### [facility] [address] [place], [address] CA,Total 8.4 mg/dL Low 8.5-10.1 [facility] Comment on above: Performed By: #### L [id number] #### [facility] [address] [place], [address] Chloride [Moles/Vol] 109 mmol/L High 98-107 [facility] Comment on above: Performed By: #### L [id number] #### [facility] [address] [place], [address] CO2 [Moles/Vol] 8.0 mmol/L Invalid Interpretation Code 21.0-32.0 [facility] Comment on above: Result Comment: Crit ical Result(s) Called at: 15:05:58 04/04/2024 by: Emily Cortez to Renee Sosa. Results read back by same. Performed By: #### L 501.9985 #### [facility] [address] [place], [address] Creatinine [Mass/Vol] 0.80 mg/dL Normal 0.55-1.02 [facility] Comment on above: Result Comment: The validity of the calculated GFR GFRAA in patients over 70 years has not been determined. Clinical correlation is essential. Performed By: #### L 501.9985 #### [facility] [address] [place], [address] ECRCL 86.07 ml/min Normal [facility] Comment on above: Performed By: #### L 501.9985 #### [facility] [address] [place], [address] EST GFR - AA 106 mL/min Normal >60 [facility] Comment on above: Result Comment: Afri can [place] GFR Calc Performed By: #### L 501.9985 #### [facility] [address] [place], [address] GAP 16 High 5-15 [facility] Comment on above: Performed By: #### L [id number] #### [facility] [address] [place], [address] GFR/1.73 sq M.predicted among non-blacks MDRD (S/P/Bld) [Vol rate/Area] 87 mL/min/{1.73_m2} Normal >60 [facility] Comment on above: Result Comment: Non- GFR Calc Performed By: #### L [id number] #### [facility] [address] [place], [address] Glucose [Mass/Vol] 248 mg/dL High 74-106 [facility] Comment on above: Result Comment: Gluc ose result greater than or equal to 200 mg/dL suggests DIABETES MELLITUS per A.D.A. criteria. Performed By: #### L 501.9985 #### [facility] [address] [place], [address] Potassium [Moles/Vol] 4.8 mmol/L Normal 3.5-5.1 [facility] Comment on above: Performed By: #### L 501.9985 #### [facility] [address] [place], [address] Sodium [Moles/Vol] 133 mmol/L Low 136-145 [facility] Comment on above: Performed By: #### L 501.9985 #### [facility] [address] [place], [address] Urea nitrogen [Mass/Vol] 7 mg/dL Normal 7-18 [facility] Comment on above: Performed By: #### L 501.9985 #### [facility] [address] [place], [address] BUN Normal 7-18 [facility] Comment on above: Order Comment: Call MD with results STAT Result Comment: Dimas roblero via OM: Ordered Performed By: #### L 501.080 #### [facility] [address] [place], [address] BUN/CRE Normal 10-20 [facility] Comment on above: Order Comment: Call MD with results STAT Result Comment: Canc elled via OM: MD Ordered Performed By: #### L 501.080 #### [facility] [address] [place], [address] CA,Total Normal 8.5-10.1 [facility] Comment on above: Order Comment: Call MD with results STAT Result Comment: Canc elled via OM: MD Ordered Performed By: #### L 501.080 #### [facility] [address] [place], [address] CL Normal 98-107 [facility] Comment on above: Order Comment: Call with results STAT Result Comment: Canc elled via OM: MD Ordered Performed By: #### L 501.080 #### [facility] [address] [place], [address] CO2 Normal 21.0-32.0 [facility] Comment on above: Order Comment: Call MD with results STAT Result Comment: Canc elled via OM: MD Ordered Performed By: #### L 501.080 #### [facility] [address] [place], [address] CREAT,SERUM Normal 0.55-1.02 [facility] Comment on above: Order Comment: Call with results STAT Result Comment: Canc elled via OM: MD Ordered Performed By: #### L 501.080 #### [facility] [address] [place], [address] EST GFR Normal >60 [facility] Comment on above: Order Comment: Call with results STAT Result Comment: Canc elled via OM: MD Ordered Performed By: #### L 501.080 #### [facility] [address] [place], [address] EST GFR - AA Normal >60 [facility] Comment on above: Order Comment: Call with results STAT Result Comment: Canc elled via OM: MD Ordered Performed By: #### L 501.080 #### [facility] [address] [place], [address] GAP Normal 5-15 [facility] Comment on above: Order Comment: Call MD with results STAT Result Comment: Canc elled via OM: MD Ordered Performed By: #### L 501.080 #### [facility] [address] [place], [address] GLU Normal 74-106 [facility] Comment on above: Order Comment: Call MD with results STAT Result Comment: Canc elled via OM: MD Ordered Performed By: #### L 501.080 #### [facility] [address] [place], [address] Potassium Normal 3.5-5.1 [facility] Comment on above: Order Comment: Call MD with results STAT Result Comment: Canc elled via OM: MD Ordered Performed By: #### L 501.080 #### [facility] [address] [place], [address] Basic Metabolic Profile (BMP) Normal 136-145 [facility] Comment on above: Order Comment: Call MD with results STAT Result Comment: Canc elled via OM: MD Ordered Performed By: #### L 501.080 #### [facility] [address] [place], [address] Bedside Glucoseon 04-04-2024 FINGERSTICK GLU 162 mg/dL High 74-106 [facility] Comment on above: Result Comment: KAZ GEMENT OF PATIENT CARE PER NURSING PROTOCOL Performed By: #### L 501.080 #### [facility] [address] [place], [address] FINGERSTICK GLU 194 mg/dL High 74-106 [facility] Comment on above: Result Comment: KAZ GEMENT OF PATIENT CARE PER NURSING PROTOCOL Performed By: #### L 501.080 #### [facility] [address] [place], [address] FINGERSTICK GLU 230 mg/dL High 74-106 [facility] Comment on above: Result Comment: KAZ GEMENT OF PATIENT CARE PER NURSING PROTOCOL Performed By: #### L 100.0100 #### [facility] [address] [place], [address] FINGERSTICK GLU 235 mg/dL High 74-106 [facility] Comment on above: Result Comment: KAZ GEMENT OF PATIENT CARE PER NURSING PROTOCOL Performed By: #### L 501.080 #### [facility] [address] [place], [address] FINGERSTICK GLU 243 mg/dL High -106 [facility] Comment on above: Result Comment: KAZ GEMENT OF PATIENT CARE PER NURSING PROTOCOL Performed By: #### L 501.080 #### [facility] [address] [place], [address] FINGERSTICK GLU 240 mg/dL High 74-106 [facility] Comment on above: Result Comment: KAZ GEMENT OF PATIENT CARE PER NURSING PROTOCOL Performed By: #### L [id number] #### [facility] [address] [place], [address] FINGERSTICK GLU 231 mg/dL High 74-106 [facility] Comment on above: Result Comment: KAZ GEMENT OF PATIENT CARE PER NURSING PROTOCOL Performed By: #### L [id number] #### [facility] [address] [place], [address] FINGERSTICK GLU 271 mg/dL High 74-106 [facility] Comment on above: Result Comment: KAZ GEMENT OF PATIENT CARE PER NURSING PROTOCOL Performed By: #### L 500.2500 #### [facility] [address] [place], [address] FINGERSTICK GLU 339 mg/dL High 74-106 [facility] Comment on above: Result Comment: KAZ GEMENT OF PATIENT CARE PER NURSING PROTOCOL Performed By: #### L 500.2500 #### [facility] [address] [place], [address] FINGERSTICK GLU 484 mg/dL Invalid Interpretation Code 74-106 [facility] Comment on above: Result Comment: Dr Lima aguilera Followed MANAGEMENT OF PATIENT CARE PER NURSING PROTOCOL Performed By: #### L 500.2500 #### [facility] [address] [place], [address] FINGERSTICK GLU 420 mg/dL High 74-106 [facility] Comment on above: Result Comment: KAZ GEMENT OF PATIENT CARE PER NURSING PROTOCOL Performed By: #### L 501.9985 #### [facility] [address] [place], [address] Chest 1 View (Portable)on Chest 1 View (Portable) [facility] Imaging Services [address] [place] [address] Chest 1 View (Portable) MR#: [id number] Acct: [id number] Name: BRETT BOBBY Rep #: [id number] : 1990 F 33 From: Danny diaz MD PCP: Dr. Meena Flowers, DO Status: REG ER Study: Chest 1 View (Portable) Date of Exam: 04/04/24 Exam# [id number] Ordering Dr: Aba Murguia MD [id number] STUDY: X-RAY CHEST REASON FOR EXAM: Female, 33 years old. Sob TECHNIQUE: Single AP portable view of the chest. COMPARISON: Comparison is made with prior study May 25, 2023. FINDINGS: EKG electrodes are seen. The lungs are clear and expanded. There is no demonstrated pleural abnormality. Normal size heart. Normal mediastinum and jared. Normal visualized pulmonary arteries. Normal visualized aortic arch and descending thoracic aorta. Normal visualized thoracic spine. Normal visualized ribs, clavicles, and shoulders. There is no demonstrated abnormality of the visualized soft tissue structures of the upper abdomen. RAD/Chest 1 View (Portable) IMPRESSION: Normal x-ray examination of the chest. Electronically Signed: Danny Cardoza MD at 10:15 EDT , CC: Dr. Aba Murguia MD; Dr. Meena Flowres DO Watch Crystal Grinder: Signed Normal [facility] Comprehensive Metabolic Prof ilon 04-04-2024 Albumin [Mass/Vol] 4.4 g/dL Normal 3.2-5.0 [facility] Comment on above: Performed By: #### L 500.2500 #### [facility] [address] [place], [address] Albumin/Globulin [Mass ratio] 0.8 {ratio} Low 0.9-2.4 [facility] Comment on above: Performed By: #### L 500.2500 #### [facility] [address] [place], [address] ALK P 122 U/L High 45-117 [facility] Comment on above: Performed By: #### L 500.2500 #### [facility] [address] [place], [address] ALT [Catalytic activity/Vol] 17 U/L Normal 13-56 [facility] Comment on above: Performed By: #### L 500.2500 #### [facility] [address] [place], [address] AST [Catalytic activity/Vol] 15 U/L Normal 15-37 [facility] Comment on above: Performed By: #### L 500.2500 #### [facility] [address] [place], [address] Bilirubin [Mass/Vol] 0.60 mg/dL Normal 0.20-1.00 [facility] Comment on above: Result Comment: For patients on eltrombopag therapy, use of Dimension [place] TBIL is not recommended. Performed By: #### L 500.2500 #### [facility] [address] [place], [address] BUN/CRE 9.7 RATIO Low 10-20 [facility] Comment on above: Performed By: #### L 500.2500 #### [facility] [address] [place], [address] CA,Total 9.8 mg/dL Normal 8.5-10.1 [facility] Comment on above: Performed By: #### L [id number] #### [facility] [address] [place], [address] Chloride [Moles/Vol] 95 mmol/L Low 98-107 [facility] Comment on above: Performed By: #### L 500.2500 #### [facility] [address] [place], [address] CO2 [Moles/Vol] 7.0 mmol/L Invalid Interpretation Code 21.0-32.0 [facility] Comment on above: Result Comment: Crit ical Result(s) Called at: 10:19:24 04/04/2024 by: Emily Cortez to Porsche Blackburn. Results read back by same. Performed By: #### L 500.2500 #### [facility] [address] [place], [address] Creatinine [Mass/Vol] 1.13 mg/dL High 0.55-1.02 [facility] Comment on above: Result Comment: The validity of the calculated GFR GFRAA in patients over 70 years has not been determined. Clinical correlation is essential. Performed By: #### L 500.2500 #### [facility] [address] [place], [address] ECRCL 60.29 ml/min Normal [facility] Comment on above: Performed By: #### L 500.2500 #### [facility] [address] [place], [address] EST GFR - AA 71 mL/min Normal >60 [facility] Comment on above: Result Comment: Afri can [place] GFR Calc Performed By: #### L 500.2500 #### [facility] [address] [place], [address] GAP 25 High 5-15 [facility] Comment on above: Performed By: #### L 500.2500 #### [facility] [address] [place], [address] GFR/1.73 sq M.predicted among non-blacks MDRD (S/P/Bld) [Vol rate/Area] 58 mL/min/{1.73_m2} Low >60 [facility] Comment on above: Result Comment: Non- GFR Calc Performed By: #### L 500.2500 #### [facility] [address] [place], [address] Globulin (S) [Mass/Vol] 5.5 g/dL High 2.2-4.2 [facility] Comment on above: Performed By: #### L 500.2500 #### [facility] [address] [place], [address] Glucose [Mass/Vol] 452 mg/dL Invalid Interpretation Code 74-106 [facility] Comment on above: Result Comment: Crit ical Result(s) Called at: 10:19:24 04/04/2024 by: Emily Cortez to Porsche Blackburn. Results read back by same. Glucose result greater than or equal to 200 mg/dL suggests DIABETES MELLITUS per A.D.A. criteria. Performed By: #### L [id number] #### [facility] [address] [place], [address] Potassium [Moles/Vol] 6.4 mmol/L Invalid Interpretation Code 3.5-5.1 [facility] Comment on above: Result Comment: Paul ical Result(s) Called at: 10:19:24 04/04/2024 by: Emily Cortez to Porsche Blackburn. Results read back by same. Performed By: #### L 500.2500 #### [facility] [address] [place], [address] Sodium [Moles/Vol] 127 mmol/L Low 136-145 [facility] Comment on above: Performed By: #### L 500.2500 #### [facility] [address] [place], [address] T PROT 9.9 g/dL High 6.4-8.2 [facility] Comment on above: Performed By: #### L 500.2500 #### [facility] [address] [place], [address] Urea nitrogen [Mass/Vol] 11 mg/dL Normal 7-18 [facility] Comment on above: Performed By: #### L 500.2500 #### [facility] [address] [place], [address] Emergency Department Summary on 04-04-2024 Emergency Department Summary [facility] Medical Records Department [address] [place] [address] Emergency Department Summary 04/04/24 MR#: [id number] Acct: [id number] Name: BRETT BOBBY Rep #: [id number] : 1990 33 From: Aba Murguia MD PCP: Dr. Meena Flowers, DO Status:REG ER Location: ED HPI History of Present Illness Chief Complaint: Nausea/Vomiting Informant: patient Narrative Narrative: Patient woke up this morning couple hours ago nausea, vomiting, dyspnea, malaise, feels like she is in DKA. No cough. No chest discomfort. No abdominal pain. Urinating a lot this morning and yesterday, has been taking her insulins as usual, including her short and long-acting insulins which she last took this morning before coming here. Yesterday her blood sugars were in the 200s. No recent illness before symptoms started this morning that she knows of. [facility] Medical History Tobacco abuse Stage 3a chronic kidney disease (CKD) Diabetes mellitus type 1, uncontrolled, insulin dependent Home Medications ???Medication ???Instructions ???Recorded ???Last Taken ???Type insulin aspart U-100 100 unit/mL See Protocol subcut TID PRN 02/02/22 Unknown History (3 mL) subcutaneous pen (Novolog Hyperglycemia FlexPen U-100 Insulin aspart) potassium chloride 10 mEq 20 meq PO BID HYPOKALEMIA 05/25/23 Unknown History tablet,extended release insulin glargine 100 unit/mL (3 24 unit subcut BID 04/04/24 Unknown History mL) subcutaneous pen (Lantus Solostar U-100 Insulin) Allergy/AdvReac Type Severity Reaction Status Date / Time bee venom protein (honey bee) Allergy Anaphylaxis Verified 04/04/24 08:31 Family History Grandmother Diabetes Hypertension Heart disease Grandfather Diabetes Colon cancer Surgical History History of partial hysterectomy Hx of tonsillectomy Social History household members: children current occupational exposures/hazards: No Smoking Status: Light Smoker (<10/day) alcohol intake: current alcohol intake frequency: holidays/special occasions only substance use type: does not use ROS ROS ED Constitutional Constitutional ED: Reports fatigue; Denies chills or fever(s) Eyes Eyes: Denies change in vision or diplopia ENT ENT ED: Denies rhinorrhea or sore throat Cardiovascular Cardiovascular: Denies chest pain or palpitations Respiratory/Chest Respiratory/Chest: Reports dyspnea; Denies cough Gastrointestinal Gastrointestinal: Reports nausea and vomiting; Denies abdominal pain, diarrhea or hematemesis Genitourinary Genitourinary ED: Reports urinary frequency; Denies dysuria or hematuria Musculoskeletal Musculoskeletal: Denies back pain or neck pain Integumentary Denies abscess or rash Neurologic Neurologic: Denies headache(s), paresthesias or weakness Psychiatric Psychiatric: Denies suicidal thoughts Endocrine Endocrinology: Reports polydipsia and polyuria EXAM Physical Exam Const Vital Signs: 04/04/24 08:31 04/04/24 08:31 04/04/24 08:52 Temperature 99 F Temperature Source Temporal Pulse Rate 134 H 128 H Respiratory Rate 22 H 20 H Respiratory Effort Short of Breath Respiratory Depth Respiratory Pattern Normal Blood Pressure 138/104 H 139/109 H Blood Pressure Mean 115 119 Pulse Ox 99 99 Oxygen Delivery Method Room Air Room Air 04/04/24 08:52 Temperature Temperature Source Pulse Rate Respiratory Rate Respiratory Effort Short of Breath Respiratory Depth Normal Respiratory Pattern Normal Blood Pressure Blood Pressure Mean Pulse Ox Oxygen Delivery Method Room Air Positive well nourished and well developed General Appearance ED: well developed and NAD HEENT Reports moist mucous membranes normocephalic and atraumatic Eyes PERRL and EOMs intact bilaterally Neck full ROM and supple Resp normal respiratory effort and clear to auscultation bilaterally Resp Narrative: Tachypnea, no distress Cardio regular rate, regular rhythm and no murmurs Rate: tachycardic GI non-tender and non-distended Auscultation: normoactive bowel sounds Palpation: soft Back/Spine no CVA tenderness General Back: other FROM Extremity normal to inspection General Extremety ED: Negative for edema, pulses abnormal or tenderness General Extremity: Negative for edema or pulses abnormal Neuro oriented x3, CN's II-XII intact bilaterally and no sensory deficits noted Sensorium / Orientation: awake and alert Motor Exam: strength 5/5 throughout Psych mental status grossly normal Skin no rashes or lesions (more content not included)... Normal [facility] H AND P Exam - Hospitaliston 04-04-2024 H&P Exam - Hospitalist [facility] Medical Records Department [address] [place] [address] H P Exam - Hospitalist 04/04/24 1753 MR#: [id number] Acct: [id number] Name: BRETT BOBBY Rep #: [id number] : 1990 33 From: Bryce Julien MD PCP: Dr. Meena Flowers, DO Status:ADM IN Location: ICU [id number] HPI - General General Date of Admission: 04/04/24 HPI Narrative BRETT BOBBY, is a 33 F who presents to the hospital with nausea vomiting and signs of DKA. She says that she has been in DKA before and this is what it felt like. She states that everything started this morning, she did not notice feeling unwell yesterday, she has not missed any insulin dosages and does not describe any dysuria or any other signs of infection that could possibly precipitate DKA. She was found to be significantly acidotic with a serum bicarb of 7 and a gap of 25 on admission. She was started on insulin drip and given several liters of fluid and transferred to the ICU. We did discover that her glucose monitor was about 200 off our glucose monitor so hers would say 200 and ours was a 406 so it is possible that she has been underdosing her insulin at home and that is what has precipitated this episode of DKA. [facility] Medical History Tobacco abuse Stage 3a chronic kidney disease (CKD) Diabetes mellitus type 1, uncontrolled, insulin dependent Home Medications ???Medication ???Instructions ???Recorded ???Last Taken ???Type insulin aspart U-100 100 unit/mL See Protocol subcut TID PRN 02/02/22 Unknown History (3 mL) subcutaneous pen (Novolog Hyperglycemia FlexPen U-100 Insulin aspart) potassium chloride 10 mEq 20 meq PO BID HYPOKALEMIA 05/25/23 Unknown History tablet,extended release insulin glargine 100 unit/mL (3 24 unit subcut BID 04/04/24 Unknown History mL) subcutaneous pen (Lantus Solostar U-100 Insulin) Allergy/AdvReac Type Severity Reaction Status Date / Time bee venom protein (honey bee) Allergy Anaphylaxis Verified 04/04/24 08:31 Family History Grandmother Diabetes Hypertension Heart disease Grandfather Diabetes Colon cancer Surgical History History of partial hysterectomy Hx of tonsillectomy Social History household members: children current occupational exposures/hazards: No Smoking Status: Light Smoker (<10/day) alcohol intake: current alcohol intake frequency: holidays/special occasions only substance use type: does not use ROS Constitutional Constitutional: Reports fatigue; Denies chills, fever(s) or malaise Eyes Eyes: Denies blurry vision ENT HEENT: Denies headache(s) or nasal discharge Cardiovascular Cardiovascular: Denies chest pain, dyspnea on exertion or syncope Respiratory/Chest Respiratory/Chest: Denies cough, shortness of breath at rest or shortness of breath with exertion Gastrointestinal Gastrointestinal: Reports nausea and vomiting; Denies constipation or diarrhea Genitourinary Genitourinary: Denies dysuria Neurologic Neurologic: Denies focal weakness, numbness or tremor(s) Psychiatric Psychiatric: Denies anxiety or depression Vital Signs Vital Signs Vital Signs: 04/04/24 08:31 04/04/24 08:31 04/04/24 08:52 Temperature 99 F Temperature Source Temporal Pulse Rate 134 H 128 H Respiratory Rate 22 H 20 H Respiratory Effort Short of Breath Respiratory Depth Respiratory Pattern Normal Blood Pressure 138/104 H 139/109 H Blood Pressure Mean 115 119 Blood Pressure Source Blood Pressure Position Blood Pressure Location Pulse Ox 99 99 Oxygen Delivery Method Room Air Room Air 04/04/24 08:52 04/04/24 10:51 04/04/24 12:01 Temperature Temperature Source Pulse Rate 114 H 119 H Respiratory Rate 22 H 26 H Respiratory Effort Short of Breath Respiratory Depth Normal Respiratory Pattern Normal Blood Pressure 128/75 H 137/82 H Blood Pressure Mean 92 100 Blood Pressure Source Blood Pressure Position Blood Pressure Location Pulse Ox 100 100 Oxygen Delivery Method Room Air Room Air 04/04/24 12:01 04/04/24 12:30 04/04/24 12:45 Temperature 98.8 F Temperature Source Pulse Rate 119 H 121 H 115 H Respiratory Rate 26 H 24 H 22 H Respiratory Effort Respiratory Depth Respiratory Pattern Blood Pressure 137/82 H 141/97 H 129/88 H Blood Pressure Mean 100 111 101 Blood Pressure Source Monitor Monitor Blood Pressure Position Semi-Fowlers Semi-Fowlers Blood Pressure Location Left Arm Left Arm Pulse Ox 100 100 100 Oxygen Delivery Method Room Air Room Air 03/10 (more content not included)... Normal [facility] ,Urineon 04-04-2024 Beta HCG ( test) Ql (U) Negative Normal [facility] Comment on above: Order Comment: CLEAN CATCH Result Comment: Very dilute urine specimens, as indicated by a low specific gravity, may not contain asset protection representative levels of hCG. If is still suspected, a first morning urine specimen should be collected 48 hours later and tested. Performed By: #### L 501.9985 #### [facility] [address] [place], [address] Urinalysis, Completeon 04-04 EPI,SQUAMOUS 0-5 SEEN Normal 5-10 [facility] Comment on above: Order Comment: CLEAN CATCH Performed By: #### L 501.9985 #### [facility] [address] [place], [address] BACTERIA 0 SEEN Normal None Seen [facility] Comment on above: Order Comment: CLEAN CATCH Performed By: #### L 501.9985 #### [facility] [address] [place], [address] Mucus Ql (Urine sed) 0 SEEN Normal [facility] Comment on above: Order Comment: CLEAN CATCH Performed By: #### L 501.9985 #### [facility] [address] [place], [address] RBC 0 SEEN Normal 0-5 [facility] Comment on above: Order Comment: CLEAN CATCH Performed By: #### L 501.9985 #### [facility] [address] [place], [address] WBC 0 SEEN Normal 0-5 [facility] Comment on above: Order Comment: CLEAN CATCH Performed By: #### L 501.9985 #### [facility] [address] [place], [address] Venous Blood Gason 4 Blood Gas Type BETHANY Normal [facility] Comment on above: Performed By: #### L 500.2500 #### [facility] [address] [place], [address] CO2 [Moles/Vol] 7 mmol/L Low 23-33 [facility] Comment on above: Performed By: #### L 500.2500 #### [facility] [address] [place], [address] HCO3 (Bld) [Moles/Vol] 6 mmol/L Low 22-26 [facility] Comment on above: Performed By: #### L 500.2500 #### [facility] [address] [place], [address] O2 Delivery Dev Room Air [facility] Comment on above: Performed By: #### L 500.2500 #### [facility] [address] [place], [address] Read Back By Yes [facility] Comment on above: Performed By: #### L 500.2500 #### [facility] [address] [place], [address] Results To everardo [facility] Comment on above: Performed By: #### L 500.2500 #### [facility] [address] [place], [address] SITE Not entered [facility] Comment on above: Performed By: #### L 500.2500 #### [facility] [address] [place], [address] Time Given 09:46:03 [facility] Comment on above: Performed By: #### L 500.2500 #### [facility] [address] [place], [address] VBG BE -26 mmol/L Low -1.0-3.5 [facility] Comment on above: Performed By: #### L 500.2500 #### [facility] [address] [place], [address] VBG pCO2 24.1 mmHg Low 41-51 [facility] Comment on above: Performed By: #### L 500.2500 #### [facility] [address] [place], [address] VBG pH 6.99 Invalid Interpretation Code 7.32-7.42 [facility] Comment on above: Performed By: #### L 500.2500 #### [facility] [address] [place], [place], [address] VBG PO2 45 mmHg High 25-40 [facility] Comment on above: Performed By: #### L 500.2500 #### [facility] [address] [place], [place], [address] VBG SO2 57 Normal 50-70 [facility] Comment on above: Performed By: #### L 500.2500 #### [facility] [address] [place], [place], [address] Absolute lymphocyte countOrd ered By: Risa Gatica on 09-24-2023 Lymphocytes Auto (Unsp spec) [#/Vol] 1.34 10*3/uL 0.83-4.51 [facility] Automated lymphocyte count a s percentage of total leukocytesOrdered By: Risa Gatica on 09-24-2023 Lymphocytes/100 WBC Auto (Unsp spec) 14.7 % 19-41 [facility] Basophil percentageOrdered B y: Risa Gatica on 09-24-2023 Basophil percentage 10-25 SEEN /hpf 0-5 [facility] Basophils/100 WBC (Bld) 0.6 % 0-1 [facility] Chloride [Moles/Vol] 100 mmol/L 98-107 [facility] Eosinophils/100 WBC (Bld) 0.0 % 0-5 [facility] Glucose [Mass/Vol] 280 mg/dL 74-106 [facility] Comment on above: Glucose result great er than or equal to 200 mg/dLsuggests DIABETES MELLITUS per A.D.A. criteria. Hemoglobin (Bld) [Mass/Vol] 13.3 g/dL 12.0-15.0 [facility] Monocytes/100 WBC (Bld) 5.7 % 0-10 [facility] Neutrophils (Bld) [#/Vol] 7.1 10*3/uL 2.0-7.7 [facility] Neutrophils/100 WBC (Bld) 78.6 % 47-70 [facility] Potassium [Moles/Vol] 3.9 mmol/L 3.5-5.1 [facility] Sodium [Moles/Vol] 132 mmol/L 136-145 [facility] WBC (Bld) [#/Vol] 9.1 10*3/uL 4.4-11.0 [facility] Bilirubin Test strip Ql (U)O rdered By: Risa Gatica on 09-24-2023 Bilirubin Ql (U) Negative Negative [facility] Determination of erythrocyte mean corpuscular volume (MCV)Ordered By: Risa Gatica on 09-24-2023 MCV (RBC) [Entitic vol] 89.0 fL 81-99 [facility] Erythrocyte distribution wid th ratioOrdered By: Risa Gatica on 09-24-2023 Erythrocyte distribution width (RBC) [Ratio] 13.2 % 11.6-14.6 [facility] Erythrocyte distribution wid th standard deviationOrdered By: Risa Gatica on 09-24-2023 Erythrocyte distribution width (RBC) [Entitic vol] 43.1 fL 35.1-43.9 [facility] Hematocrit Auto (Bld) [Volum e fraction]Ordered By: Risa Gatica on 09-24-2023 Hematocrit (Bld) [Volume fraction] 40.5 % 37-47 [facility] Immature granulocytes/100 WB C Auto (Bld)Ordered By: Risa Gatica on 09-24-2023 Immature granulocytes/100 WBC (Bld) 0.400 % 0.0-0.9 [facility] Comment on above: IG% - Immature Granu locytes (promyelocytes, myelocytes and metamyelocytes) > 1% indicates that a LEFT SHIFT is Present. Ketones Test strip Ql (U)Ord ered By: Risa Gatica on 09-24-2023 Ketones Ql (U) 150 mg/dl Negative [facility] Comment on above: CRITICAL VALUE *HCRI TICAL VALUE VERIFIED. CALLED TO MIRELLA VILLALPANDO (ER)09/24/23 1330 Harjit Whitley.RESULTS READ BACK BY SAME. Laboratory - Chemistry and C hemistry - challengeOrdered By: Risa Gatica on 09-24-2023 CO2 [Moles/Vol] 21.0 mmol/L 21.0-32.0 [facility] Urea nitrogen/Creatinine [Mass ratio] 14.6 mg/mg 10-20 [facility] - Hematology and Cell countsOrdered By: Risa Gatica on 09-24-2023 MCH (RBC) [Entitic mass] 29.2 pg 27.0-32.0 [facility] MCHC (RBC) [Mass/Vol] 32.8 g/dL 32-36 [facility] Nucleated RBC/100 WBC (Bld) [Ratio] 0 % 0-5 [facility] Platelet mean volume (Bld) [Entitic vol] 9.8 fL 6.2-12.0 [facility] Platelets (Bld) [#/Vol] 369 10*3/uL 150-450 [facility] Mucus LM Ql (Urine sed)Order ed By: Risa Gatica on 09-24-2023 Mucus Ql (Urine sed) 0 SEEN /hpf [facility] Nitrite Test strip Ql (U)Ord ered By: Risa Gatica on 09-24-2023 Nitrite Ql (U) Positive Negative [facility] No Panel InformationOrdered By: Risa Gatica on 09-24-2023 Urine RBC 0-5 SEEN /hpf 0-5 [facility] Estimated Creatinine Clearance Calc 106.73 ml/min [facility] Estimated GFR (MDRD) Amer 127 mL/min >60 [facility] Comment on above: GFR Calc Estimated GFR (MDRD) Non-Af Amer 105 mL/min >60 [facility] Comment on above: Non- GFR Calc Troponin I High Sensitivity 3 pg/mL 3.0-54.0 [facility] Comment on above: Please Note: [place] t Units and Gender Specific Reference Ranges. For more information see Policy Stat Procedure [place] High Sensitivity Troponin (TNIH) and attachments. Protein Test strip Ql (U)Ord ered By: Risa Gatica on 09-24-2023 Protein Ql (U) 30 mg/dl Negative [facility] RBC Auto (Bld) [#/Vol]Ordere d By: Risa Gatica on 09-24-2023 RBC (Bld) [#/Vol] 4.55 10*6/uL 4.2-5.4 [facility] Serum or plasma acetone xin urement (mass/volume)Ordered By: Risa Gatica on 09-24-2023 Acetone [Mass/Vol] Negative NEG [facility] Serum or plasma calcium xin urement (mass/volume)Ordered By: Risa Gatica on 09-24-2023 Calcium [Mass/Vol] 9.3 mg/dL 8.5-10.1 [facility] Serum or plasma creatinine m easurement (mass/volume)Ordered By: Risa Gatica on 09-24-2023 Creatinine [Mass/Vol] 0.68 mg/dL 0.55-1.02 [facility] Comment on above: The validity of the calculated GFR & GFRAA in patients over 70 years has not been determined. Clinical correlation is essential. Serum or plasma urea nitroge n measurement (mass/volume)Ordered By: Risa Gatica on 09-24-2023 Urea nitrogen [Mass/Vol] 10 mg/dL 7-18 [facility] [place] epithelial cells de tection in urine sediment by light microscopyOrdered By: Risa Gatica on 09-24-2023 Epithelial cells.squamous LM Ql (Urine sed) 0-5 SEEN /hpf 5-10 [facility] Thin prep Papanicolaou smear with manual screeningOrdered By: Risa Gatica on 09-24-2023 Thin prep Papanicolaou smear with manual screening 265 mg/dL 74-106 [facility] Comment on above: MANAGEMENT OF PATIEN T CARE PER NURSING PROTOCOL Thin prep Papanicolaou smear with manual screening 11 5-15 [facility] Urine blood detectionOrdered By: Risa Gatica on 09-24-2023 RBC Ql (U) 10 /ul Negative [facility] Urine clarityOrdered By: Giselle Gatica on 09-24-2023 Clarity (U) Sl. Cloudy Clear [facility] Urine color determinationOrd ered By: Risa Gatica on 09-24-2023 Color (U) Yellow Yellow [facility] Urine glucose detectionOrder ed By: Risa Gatica on 09-24-2023 Glucose Ql (U) 1000 mg/dl Normal [facility] Urine leukocyte esterase det ection by dipstickOrdered By: Risa Gatica on 09-24-2023 Leukocyte esterase Test strip Ql (U) 100 /ul Negative [facility] Urine pHOrdered By: Risa Gatica on 09-24-2023 pH (U) 6.0 [pH] 5.0 - 8.0 [facility] Urine sediment bacteria coun t by microscopy (number/high power field)Ordered By: Risa Gatica on 09-24-2023 Bacteria LM.HPF (Urine sed) [#/Area] 1 /[HPF] None Seen [facility] Urine specific gravity measu rementOrdered By: Risa Gatica on 09-24-2023 Specific gravity (U) [Rel density] 1.010 1.002-1.030 [facility] Urine urobilinogen measureme ntOrdered By: Risa Gatica on 09-24-2023 Urobilinogen Ql (U) Normal mg/dl Normal [facility] Absolute lymphocyte countOrd ered By: David Miramontes on 05-26-2023 Lymphocytes Auto (Unsp spec) [#/Vol] 1.50 10*3/uL 0.83-4.51 [facility] Basophil percentageOrdered B y: David Miramontes on 05-26-2023 Chloride [Moles/Vol] 112 mmol/L 98-107 [facility] Glucose [Mass/Vol] 297 mg/dL 74-106 [facility] Comment on above: Glucose result great er than or equal to 200 mg/dLsuggests DIABETES MELLITUS per A.D.A. criteria. Potassium [Moles/Vol] 4.1 mmol/L 3.5-5.1 [facility] Sodium [Moles/Vol] 137 mmol/L 136-145 [facility] Basophil percentage 1.6 mg/dL 2.5-4.9 [facility] Basophils/100 WBC (Bld) 1.0 % 0-1 [facility] Eosinophils/100 WBC (Bld) 1.4 % 0-5 [facility] Neutrophils (Bld) [#/Vol] 5.2 10*3/uL 2.0-7.7 [facility] Neutrophils/100 WBC (Bld) 67.2 % 47-70 [facility] WBC (Bld) [#/Vol] 7.7 10*3/uL 4.4-11.0 [facility] Blood erythrocytes count (nu mber/volume)Ordered By: David Miramontes on 05-26-2023 RBC (Bld) [#/Vol] 4.00 10*6/uL 4.2-5.4 [facility] Blood hemoglobin measurement (mass/volume)Ordered By: David Miramontes on 05-26-2023 Hemoglobin (Bld) [Mass/Vol] 12.7 g/dL 12.0-15.0 [facility] Blood lymphocytes/100 leukoc ytesOrdered By: David Miramontes on 05-26-2023 Lymphocytes/100 WBC (Bld) 19.4 % 19-41 [facility] Blood monocytes/100 leukocyt esOrdered By: David Miramontes on 05-26-2023 Monocytes/100 WBC (Bld) 10.6 % 0-10 [facility] Blood platelet mean volumeOr dered By: David Miramontes on 05-26-2023 Platelet mean volume (Bld) [Entitic vol] 9.8 fL 6.2-12.0 [facility] Determination of erythrocyte mean corpuscular volume (MCV)Ordered By: David Miramontes on 05-26-2023 MCV (RBC) [Entitic vol] 98.8 fL 81-99 [facility] Glucose Glucometer (dC) [M ass/Vol]Ordered By: Douglas Serrano on 05-26-2023 Glucose [Mass/Vol] 153 mg/dL 74-106 [facility] Comment on above: MANAGEMENT OF PATIEN T CARE PER NURSING PROTOCOL Hematocrit Auto (Bld) [Volum e fraction]Ordered By: David Miramontes on 05-26-2023 Hematocrit (Bld) [Volume fraction] 39.5 % 37-47 [facility] Laboratory - Chemistry and C hemistry - challengeOrdered By: David Miramontes on 05-26-2023 CO2 [Moles/Vol] 14.0 mmol/L 21.0-32.0 [facility] Urea nitrogen/Creatinine [Mass ratio] 2.9 mg/mg 10-20 [facility] Magnesium [Mass/Vol] 1.7 mg/dL 1.6-2.6 [facility] Laboratory - Hematology and Cell countsOrdered By: David Miramontes on 05-26-2023 Erythrocyte distribution width (RBC) [Entitic vol] 45.2 fL 35.1-43.9 [facility] Erythrocyte distribution width (RBC) [Ratio] 12.5 % 11.6-14.6 [facility] Immature granulocytes/100 WBC (Bld) 0.400 % 0.0-0.9 [facility] Comment on above: IG% - Immature Granu locytes (promyelocytes, myelocytes and metamyelocytes) > 1% indicates that a LEFT SHIFT is Present. MCH (RBC) [Entitic mass] 31.8 pg 27.0-32.0 [facility] Nucleated RBC/100 WBC (Bld) [Ratio] 0 % 0-5 [facility] MCHC Auto (RBC) [Mass/Vol]Or dered By: David Miramonets on 05-26-2023 MCHC (RBC) [Mass/Vol] 32.2 g/dL 32-36 [facility] No Panel InformationOrdered By: David Miramontes on 05-26-2023 Estimated Creatinine Clearance Calc 87.51 ml/min [facility] Estimated GFR (MDRD) Amer 126 mL/min >60 [facility] Comment on above: GFR Calc Estimated GFR (MDRD) Non-Af Amer 104 mL/min >60 [facility] Comment on above: Non- GFR Calc Platelets bldOrdered By: Tom Miramontes on 05-26-2023 Platelets (Bld) [#/Vol] 284 10*3/uL 150-450 [facility] Serum or plasma calcium xin urement (mass/volume)Ordered By: David Miramontes on 05-26-2023 Calcium [Mass/Vol] 8.2 mg/dL 8.5-10.1 [facility] Serum or plasma creatinine m easurement (mass/volume)Ordered By: David Miramontes on 05-26-2023 Creatinine [Mass/Vol] 0.69 mg/dL 0.55-1.02 [facility] Comment on above: The validity of the calculated GFR & GFRAA in patients over 70 years has not been determined. Clinical correlation is essential. Serum or plasma urea nitroge n measurement (mass/volume)Ordered By: David Miramontes on 05-26-2023 Urea nitrogen [Mass/Vol] 2 mg/dL - [facility] Thin prep Papanicolaou smear with manual screeningOrdered By: David Miramontes on 05-26-2023 Thin prep Papanicolaou smear with manual screening 11 11-20 [facility] Absolute lymphocyte countOrd ered By: Risa Gatica on 05-25-2023 Lymphocytes Auto (Unsp spec) [#/Vol] 1.15 10*3/uL 0.83-4.51 [facility] Basophil percentageOrdered B y: Risa Gatica on 05-25-2023 Chloride [Moles/Vol] 110 mmol/L 98-107 [facility] Glucose [Mass/Vol] 175 mg/dL 74-106 [facility] Comment on above: Fasting Glucose resu lt greater than or equal to 126 mg/dL suggests DIABETES MELLITUS per A.D.A. criteria. Potassium [Moles/Vol] 4.1 mmol/L 3.5-5.1 [facility] Sodium [Moles/Vol] 136 mmol/L 136-145 [facility] Basophil percentage 0-5 SEEN /hpf 0-5 [facility] Basophils/100 WBC (Bld) 1.2 % 0-1 [facility] Bilirubin [Mass/Vol] 0.70 mg/dL 0.20-1.00 [facility] Comment on above: For patients on eltr ombopag therapy, use of Dimension [place] TBIL is not recommended. Eosinophils/100 WBC (Bld) 0.1 % 0-5 [facility] Neutrophils (Bld) [#/Vol] 7.3 10*3/uL 2.0-7.7 [facility] Neutrophils/100 WBC (Bld) 78.8 % 47-70 [facility] Protein [Mass/Vol] 8.5 g/dL 6.4-8.2 [facility] WBC (Bld) [#/Vol] 9.3 10*3/uL 4.4-11.0 [facility] Bilirubin Test strip Ql (U)O rdered By: Risa Gatica on 05-25-2023 Bilirubin Ql (U) Negative Negative [facility] Blood erythrocytes count (nu mber/volume)Ordered By: Risa Gatica on 05-25-2023 RBC (Bld) [#/Vol] 4.71 10*6/uL 4.2-5.4 [facility] Blood hemoglobin measurement (mass/volume)Ordered By: Risa Gatica on 05-25-2023 Hemoglobin (Bld) [Mass/Vol] 14.9 g/dL 12.0-15.0 [facility] Blood lymphocytes/100 leukoc ytesOrdered By: Risa Gatica on 05-25-2023 Lymphocytes/100 WBC (Bld) 12.4 % 19-41 [facility] Blood monocytes/100 leukocyt esOrdered By: Risa Gatica on 05-25-2023 Monocytes/100 WBC (Bld) 7.1 % 0-10 [facility] Blood platelet mean volumeOr dered By: Risa Gatica on 05-25-2023 Platelet mean volume (Bld) [Entitic vol] 9.8 fL 6.2-12.0 [facility] Determination of erythrocyte mean corpuscular volume (MCV)Ordered By: Risa Gatica on 05-25-2023 MCV (RBC) [Entitic vol] 100.2 fL 81-99 [facility] Direct bilirubinOrdered By: Risa Gatica on 05-25-2023 Bilirubin.direct [Mass/Vol] 0.28 mg/dL 0.00-0.30 [facility] Glucose Glucometer (dC) [M ass/Vol]Ordered By: David Miramontes on 05-25-2023 Glucose [Mass/Vol] 191 mg/dL 74-106 [facility] Comment on above: MANAGEMENT OF PATIEN T CARE PER NURSING PROTOCOL Hematocrit Auto (Bld) [Volum e fraction]Ordered By: Risa Gatica on 05-25-2023 Hematocrit (Bld) [Volume fraction] 47.2 % 37-47 [facility] Ketones Test strip Ql (U)Ord ered By: Risa Gatica on 05-25-2023 Ketones Ql (U) 150 mg/dl Negative [facility] Comment on above: CRITICAL VALUE *HCRI TICAL VALUE VERIFIED. CALLED TO [id number] Angely Paiz.RESULTS READ BACK BY SAME . Laboratory - Chemistry and C hemistry - challengeOrdered By: Risa Gatica on 05-25-2023 CO2 [Moles/Vol] 10.0 mmol/L 21.0-32.0 [facility] Urea nitrogen/Creatinine [Mass ratio] 5.1 mg/mg 10-20 [facility] ALP [Catalytic activity/Vol] 116 U/L 45-117 [facility] ALT [Catalytic activity/Vol] 75 U/L 13-56 [facility] Globulin (S) [Mass/Vol] 4.8 g/dL 2.2-4.2 [facility] Laboratory - Hematology and Cell countsOrdered By: Risa Gatica on 05-25-2023 Erythrocyte distribution width (RBC) [Entitic vol] 46.5 fL 35.1-43.9 [facility] Erythrocyte distribution width (RBC) [Ratio] 12.6 % 11.6-14.6 [facility] Immature granulocytes/100 WBC (Bld) 0.400 % 0.0-0.9 [facility] Comment on above: IG% - Immature Granu locytes (promyelocytes, myelocytes and metamyelocytes) > 1% indicates that a LEFT SHIFT is Present. MCH (RBC) [Entitic mass] 31.6 pg 27.0-32.0 [facility] Nucleated RBC/100 WBC (Bld) [Ratio] 0 % 0-5 [facility] MCHC Auto (RBC) [Mass/Vol]Or dered By: Risa Gatica on 05-25-2023 MCHC (RBC) [Mass/Vol] 31.6 g/dL 32-36 [facility] Mucus LM Ql (Urine sed)Order ed By: Risa Gatica on 05-25-2023 Mucus Ql (Urine sed) 0 SEEN /hpf [facility] Nitrite Test strip Ql (U)Ord ered By: Risa Gatica on 05-25-2023 Nitrite Ql (U) Negative Negative [facility] No Panel InformationOrdered By: Risa Gatica on 05-25-2023 Estimated Creatinine Clearance Calc 102.34 ml/min [facility] Estimated GFR (MDRD) Amer 150 mL/min >60 [facility] Comment on above: GFR Calc Estimated GFR (MDRD) Non-Af Amer 124 mL/min >60 [facility] Comment on above: Non- GFR Calc Platelets bldOrdered By: Giselle Gatica on 05-25-2023 Platelets (Bld) [#/Vol] 335 10*3/uL 150-450 [facility] Protein Test strip Ql (U)Ord ered By: Risa Gatica on 05-25-2023 Protein Ql (U) 30 mg/dl Negative [facility] Serum or plasma acetone xin urement (mass/volume)Ordered By: Risa Gatica on 05-25-2023 Acetone [Mass/Vol] MODERATE NEG [facility] Serum or plasma albumin xin urement (mass/volume)Ordered By: Risa Gatica on 05-25-2023 Albumin [Mass/Vol] 3.7 g/dL 3.2-5.0 [facility] Serum or plasma calcium xin urement (mass/volume)Ordered By: Risa Gatica on 05-25-2023 Calcium [Mass/Vol] 8.0 mg/dL 8.5-10.1 [facility] Serum or plasma creatinine m easurement (mass/volume)Ordered By: Risa Gatica on 05-25-2023 Creatinine [Mass/Vol] 0.59 mg/dL 0.55-1.02 [facility] Comment on above: The validity of the calculated GFR & GFRAA in patients over 70 years has not been determined. Clinical correlation is essential. Serum or plasma urea nitroge n measurement (mass/volume)Ordered By: Risa Gatica on 05-25-2023 Urea nitrogen [Mass/Vol] 3 mg/dL 7-18 [facility] Squamous epithelial cells de tection in urine sediment by light microscopyOrdered By: Risa Gatica on 05-25-2023 Epithelial cells.squamous LM Ql (Urine sed) 0-5 SEEN /hpf 5-10 [facility] Thin prep Papanicolaou smear with manual screeningOrdered By: Risa Gatica on 05-25-2023 Thin prep Papanicolaou smear with manual screening 16 5-15 [facility] Thin prep Papanicolaou smear with manual screening 64 U/L 15-37 [facility] Urine blood detectionOrdered By: Risa Gatica on 05-25-2023 RBC Ql (U) 10 /ul Negative [facility] RBC Ql (U) 0-5 SEEN /hpf 0-5 [facility] Urine clarityOrdered By: Giselle Gatica on 05-25-2023 Clarity (U) Clear Clear [facility] Urine color determinationOrd ered By: Risa Gatica on 05-25-2023 Color (U) Yellow Yellow [facility] Urine glucose detectionOrder ed By: Risa Gatica on 05-25-2023 Glucose Ql (U) 1000 mg/dl Normal [facility] Urine leukocyte esterase det ection by dipstickOrdered By: Risa Gatica on 05-25-2023 Leukocyte esterase Test strip Ql (U) Negative Negative [facility] Urine pHOrdered By: Risa Gatica on 05-25-2023 pH (U) 5.0 [pH] 5.0 - 8.0 [facility] Urine sediment bacteria coun t by microscopy (number/high power field)Ordered By: Risa Gatica on 05-25-2023 Bacteria LM.HPF (Urine sed) [#/Area] RARE /hpf None Seen [facility] Urine specific gravity measu rementOrdered By: Risa Gatica on 05-25-2023 Specific gravity (U) [Rel density] 1.025 1.002-1.030 [facility] Urobilinogen Auto test strip Ql (U)Ordered By: Risa Gatica on 05-25-2023 Urobilinogen Ql (U) Normal mg/dl Normal [facility] Whole blood hemoglobin A1c/t otal hemoglobin ratio (mass fraction)Ordered By: David Miramontes on 05-25-2023 HbA1c (Bld) [Mass fraction] 8.3 % 3.8-5.6 [facility] Comment on above: Normal < 5.7 % Predi abetic 5.7 - 6.4 % Diabetic >or= 6.5 % Please note range changes. Absolute lymphocyte countOrd ered By: Efrem Lock on 05-23-2023 Lymphocytes Auto (Unsp spec) [#/Vol] 1.42 10*3/uL 0.83-4.51 [facility] Basophil percentageOrdered B y: Efrem Lock on 05-23-2023 Basophils/100 WBC (Bld) 0.7 % 0-1 [facility] Chloride [Moles/Vol] 103 mmol/L 98-107 [facility] Eosinophils/100 WBC (Bld) 0.1 % 0-5 [facility] Glucose [Mass/Vol] 432 mg/dL 74-106 [facility] Comment on above: Glucose result great er than or equal to 200 mg/dLsuggests DIABETES MELLITUS per A.D.A. criteria. Neutrophils (Bld) [#/Vol] 9.9 10*3/uL 2.0-7.7 [facility] Neutrophils/100 WBC (Bld) 81.5 % 47-70 [facility] Potassium [Moles/Vol] 4.6 mmol/L 3.5-5.1 [facility] Comment on above: Moderate Hemolysis, Result may be falsely increased. Sodium [Moles/Vol] 137 mmol/L 136-145 [facility] WBC (Bld) [#/Vol] 12.1 10*3/uL 4.4-11.0 [facility] Blood erythrocytes count (nu mber/volume)Ordered By: Efrem Lock on 05-23-2023 RBC (Bld) [#/Vol] 4.88 10*6/uL 4.2-5.4 [facility] Blood hemoglobin measurement (mass/volume)Ordered By: Efrem Lock on 05-23-2023 Hemoglobin (Bld) [Mass/Vol] 15.5 g/dL 12.0-15.0 [facility] Blood lymphocytes/100 leukoc ytesOrdered By: Efrem Lock on 05-23-2023 Lymphocytes/100 WBC (Bld) 11.8 % 19-41 [facility] Blood monocytes/100 leukocyt esOrdered By: Efrem Lock on 05-23-2023 Monocytes/100 WBC (Bld) 5.5 % 0-10 [facility] Blood platelet mean volumeOr dered By: Efrem Lock on 05-23-2023 Platelet mean volume (Bld) [Entitic vol] 9.5 fL 6.2-12.0 [facility] Determination of erythrocyte mean corpuscular volume (MCV)Ordered By: Efrem Lock on 05-23-2023 MCV (RBC) [Entitic vol] 96.9 fL 81-99 [facility] Glucose Glucometer (BldC) [M ass/Vol]Ordered By: Efrem Lock on 05-23-2023 Glucose [Mass/Vol] 451 mg/dL 74-106 [facility] Comment on above: Dr Amanda CramerMA NAGEMENT OF PATIENT CARE PER NURSING PROTOCOL HCO3 (BldA) [Moles/Vol]Order ed By: Efrem Lock on 05-23-2023 HCO3 (Bld) [Moles/Vol] 19 mmol/L 22-26 [facility] Hematocrit Auto (Bld) [Volum e fraction]Ordered By: Efrem Lock on 05-23-2023 Hematocrit (Bld) [Volume fraction] 47.3 % 37-47 [facility] Laboratory - Chemistry and C hemistry - challengeOrdered By: Efrem Lock on 05-23-2023 CO2 [Moles/Vol] 20 mmol/L 23-33 [facility] CO2 [Moles/Vol] 20.0 mmol/L 21.0-32.0 [facility] Urea nitrogen/Creatinine [Mass ratio] 9.1 mg/mg 10-20 [facility] Laboratory - Hematology and Cell countsOrdered By: Efrem Lock on 05-23-2023 Erythrocyte distribution width (RBC) [Entitic vol] 45.6 fL 35.1-43.9 [facility] Erythrocyte distribution width (RBC) [Ratio] 12.9 % 11.6-14.6 [facility] Immature granulocytes/100 WBC (Bld) 0.400 % 0.0-0.9 [facility] Comment on above: IG% - Immature Granu locytes (promyelocytes, myelocytes and metamyelocytes) > 1% indicates that a LEFT SHIFT is Present. MCH (RBC) [Entitic mass] 31.8 pg 27.0-32.0 [facility] Nucleated RBC/100 WBC (Bld) [Ratio] 0 % 0-5 [facility] MCHC Auto (RBC) [Mass/Vol]Or dered By: Efrem Lock on 05-23-2023 MCHC (RBC) [Mass/Vol] 32.8 g/dL 32-36 [facility] No Panel InformationOrdered By: Efrem Lock on 05-23-2023 Bed Mix Venous Bld PCO2 at [facility] Temp 36.8 mmHg 41-51 [facility] Blood Gas Sample Site Not entered [facility] Blood Gas Specimen Type BETHANY [facility] Oxygen Delivery Device Room Air [facility] Venous Blood Base Excess -7 mmol/L -1.0-3.5 [facility] Estimated Creatinine Clearance Calc 68.61 ml/min [facility] Estimated GFR (MDRD) Amer 95 mL/min >60 [facility] Comment on above: GFR Calc Estimated GFR (MDRD) Non-Af Amer 79 mL/min >60 [facility] Comment on above: Non- GFR Calc Ethyl Alcohol Level 376.0 mg/dL [facility] Comment on above: Critical Result(s) C alled at: 02:34:01 05/23/2023 by: CHRISTINE Dominguez SMOKE JUMPER. Results read back by same.The serum:whole blood ethanol ratio is approximately 1.14and varies slightly with hematocrit. Medical Alcohol reference interval and critical value innon-tolerant individuals; 50 - 100 Impairment 100 Intoxication 100 - 250 Severe Poisoning 250 - 400 Deep/possible fatal coma Troponin I High Sensitivity 5 pg/mL 3.0-54.0 [facility] Comment on above: Please Note: [place] t Units and Gender Specific Reference Ranges. For more information see Policy Stat Procedure [place] High Sensitivity Troponin (TNIH) and attachments. PO2 venousOrdered By: Efrem Lock on 05-23-2023 Oxygen (BldV) [Partial pressure] 58 mm[Hg] 25-40 [facility] Platelets bldOrdered By: David Lock on 05-23-2023 Platelets (Bld) [#/Vol] 317 10*3/uL 150-450 [facility] Serum or plasma acetone xin urement (mass/volume)Ordered By: Efrem Lock on 05-23-2023 Acetone [Mass/Vol] SMALL NEG [facility] Serum or plasma calcium xin urement (mass/volume)Ordered By: Efrem Lock on 05-23-2023 Calcium [Mass/Vol] 9.5 mg/dL 8.5-10.1 [facility] Serum or plasma creatinine m easurement (mass/volume)Ordered By: Efrem Lock on 05-23-2023 Creatinine [Mass/Vol] 0.88 mg/dL 0.55-1.02 [facility] Comment on above: The validity of the calculated GFR & GFRAA in patients over 70 years has not been determined. Clinical correlation is essential. Serum or plasma urea nitroge n measurement (mass/volume)Ordered By: Efrem Lock on 05-23-2023 Urea nitrogen [Mass/Vol] 8 mg/dL 7-18 [facility] Thin prep Papanicolaou smear with manual screeningOrdered By: Efrem Lock on 05-23-2023 Thin prep Papanicolaou smear with manual screening 14 5-15 [facility] Vital signsOrdered By: Alphonso Lock on 05-23-2023 Oxygen saturation in Blood 88 % 50-70 [facility] pH measurementOrdered By: Fifi Lock on 05-23-2023 pH (Unsp spec) 7.33 [pH] 7.32-7.42 [facility] Absolute lymphocyte counton 02-03-2022 Lymphocytes Auto (Unsp spec) [#/Vol] 2.05 10*3/uL 0.83-4.51 [facility] Work Phone: Basophil percentageon 2021 Chloride [Moles/Vol] 107 mmol/L 98-107 [facility] Work Phone: Glucose [Mass/Vol] 350 mg/dL 74-106 [facility] Work Phone: Comment on above: Glucose result great er than or equal to 200 mg/dLsuggests DIABETES MELLITUS per A.D.A. criteria. Potassium [Moles/Vol] 4.2 mmol/L 3.5-5.1 [facility] Work Phone: Sodium [Moles/Vol] 135 mmol/L 136-145 [facility] Work Phone: [phone] Basophils/100 WBC (Bld) 0.6 % 0-1 [facility] Work Phone: [phone] Eosinophils/100 WBC (Bld) 0.1 % 0-5 [facility] Work Phone: [phone] Neutrophils (Bld) [#/Vol] 6.1 10*3/uL 2.0-7.7 [facility] Work Phone: [phone] Neutrophils/100 WBC (Bld) 67.2 % 47-70 [facility] Work Phone: [phone] WBC (Bld) [#/Vol] 9.0 10*3/uL 4.4-11.0 [facility] Work Phone: [phone] Blood erythrocytes count (nu mber/volume)on 02-03-2022 RBC (Bld) [#/Vol] 3.83 10*6/uL 4.2-5.4 [facility] Work Phone: [phone] Blood hemoglobin measurement (mass/volume)on 02-03-2022 Hemoglobin (Bld) [Mass/Vol] 11.8 g/dL 12.0-15.0 [facility] Work Phone: [phone] Blood lymphocytes/100 leukoc yteson 02-03-2022 Lymphocytes/100 WBC (Bld) 22.7 % 19-41 [facility] Work Phone: Blood monocytes/100 leukocyt eson 02-03-2022 Monocytes/100 WBC (Bld) 9.0 % 0-10 [facility] Work Phone: Blood platelet mean volumeon 02-03-2022 Platelet mean volume (Bld) [Entitic vol] 9.5 fL 6.2-12.0 [facility] Work Phone: Determination of erythrocyte mean corpuscular volume (MCV)on 02-03-2022 MCV (RBC) [Entitic vol] 94.0 fL 81-99 [facility] Work Phone: Glucose Glucometer (BldC) [M ass/Vol]on 02-03-2022 Glucose [Mass/Vol] 279 mg/dL 74-106 [facility] Work Phone: Comment on above: MANAGEMENT OF PATIEN T CARE PER NURSING PROTOCOL Hematocrit Auto (Bld) [Volum e fraction]on 02-03-2022 Hematocrit (Bld) [Volume fraction] 36.0 % 37-47 [facility] Work Phone: Laboratory - Chemistry and C hemistry - challengeon 02-03-2022 CO2 [Moles/Vol] 21.0 mmol/L 21.0-32.0 [facility] Work Phone: Urea nitrogen/Creatinine [Mass ratio] 12.9 mg/mg 10-20 [facility] Work Phone: Laboratory - Hematology and Cell countson 02-03-2022 Erythrocyte distribution width (RBC) [Entitic vol] 49.1 fL 35.1-43.9 [facility] Work Phone: [phone] Erythrocyte distribution width (RBC) [Ratio] 14.2 % 11.6-14.6 [facility] Work Phone: [phone] Immature granulocytes/100 WBC (Bld) 0.400 % 0.0-0.9 [facility] Work Phone: [phone] Comment on above: IG% - Immature Granu locytes (promyelocytes, myelocytes and metamyelocytes) > 1% indicates that a LEFT SHIFT is Present. MCH (RBC) [Entitic mass] 30.8 pg 27.0-32.0 [facility] Work Phone: Nucleated RBC/100 WBC (Bld) [Ratio] 0 % 0-5 [facility] Work Phone: MCHC Auto (RBC) [Mass/Vol]on 02-03-2022 MCHC (RBC) [Mass/Vol] 32.8 g/dL 32-36 [facility] Work Phone: Comment on above: Delta: 31.0 on 02/02-0 No Panel Informationon 02-03 Estimated Creatinine Clearance Calc 65.53 ml/min [facility] Work Phone: Estimated GFR (MDRD) Amer 90 mL/min >60 [facility] Work Phone: Comment on above: GFR Calc Estimated GFR (MDRD) Non-Af Amer 74 mL/min >60 [facility] Work Phone: Comment on above: Non- GFR Calc Platelets bldon 02-03-2022 Platelets (Bld) [#/Vol] 278 10*3/uL 150-450 [facility] Work Phone: Serum or plasma calcium xin urement (mass/volume)on 02-03-2022 Calcium [Mass/Vol] 7.7 mg/dL 8.5-10.1 [facility] Work Phone: Serum or plasma creatinine m easurement (mass/volume)on 02-03-2022 Creatinine [Mass/Vol] 0.93 mg/dL 0.55-1.02 [facility] Work Phone: Comment on above: The validity of the calculated GFR & GFRAA in patients over 70 years has not been determined. Clinical correlation is essential. Serum or plasma urea nitroge n measurement (mass/volume)on 02-03-2022 Urea nitrogen [Mass/Vol] 12 mg/dL 7-18 [facility] Work Phone: Thin prep Papanicolaou smear with manual screeningon 02-03-2022 Thin prep Papanicolaou smear with manual screening 7 5-15 [facility] Work Phone: Whole blood hemoglobin A1c/t otal hemoglobin ratio (mass fraction)on 02-03-2022 HbA1c (Bld) [Mass fraction] 10.7 % 3.8-5.6 [facility] Work Phone: Comment on above: Normal < 5.7 % Predi abetic 5.7 - 6.4 % Diabetic >or= 6.5 % Please note range changes. Assessment of wrist artery p atency prior to arterial punctureon 02-02-2022 Arterial patency Wrist artery --pre arterial puncture Positive [facility] Work Phone: Base excesson 02-02-2022 Base excess Calc (BldV) [Moles/Vol] -23 mmol/L -2-2 [facility] Work Phone: Basophil percentageon 2021 Basophil percentage 6.1 mmol/L [facility] Work Phone: Basophils/100 WBC (Bld) 72 % 95-99 [facility] Work Phone: Basophil percentage 5.4 mg/dL 2.5-4.9 [facility] Work Phone: [phone] Bilirubin [Mass/Vol] 0.60 mg/dL 0.20-1.00 [facility] Work Phone: Comment on above: For patients on eltr ombopag therapy, use of Dimension [place] TBIL is not recommended. Protein [Mass/Vol] 8.9 g/dL 6.4-8.2 [facility] Work Phone: Basophil percentage 0-5 SEEN /hpf 0-5 [facility] Work Phone: Bilirubin Test strip Ql (U)o n 02-02-2022 Bilirubin Ql (U) Negative Negative [facility] Work Phone: CO2 (BldA) [Partial pressure ]on 02-02-2022 CO2 (Bld) [Partial pressure] 18.4 mm[Hg] 35-45 [facility] Work Phone: HCO3 (BldA) [Moles/Vol]on HCO3 (Bld) [Moles/Vol] 5 mmol/L [facility] Work Phone: Ketones Test strip Ql (U)on 02-02-2022 Ketones Ql (U) 150 mg/dl Negative [facility] Work Phone: Comment on above: CRITICAL VALUE *HCRI TICAL VALUE VERIFIED. CALLED TO DENZEL COUGHLIN02/02/222003 Adriano Galan.RESULTS READ BACK BY SAME . Laboratory - Chemistry and C hemistry - challengeon 02-02-2022 CO2 [Moles/Vol] 5 mmol/L 23-33 [facility] Work Phone: [phone] ALP [Catalytic activity/Vol] 122 U/L 45-117 [facility] Work Phone: [phone] ALT [Catalytic activity/Vol] 54 U/L 13-56 [facility] Work Phone: [phone] Globulin (S) [Mass/Vol] 4.7 g/dL 2.2-4.2 [facility] Work Phone: [phone] Magnesium [Mass/Vol] 2.3 mg/dL 1.6-2.6 [facility] Work Phone: [phone] Mucus LM Ql (Urine sed)on Mucus Ql (Urine sed) 0 SEEN /hpf [facility] Work Phone: [phone] Nitrite Test strip Ql (U)on 02-02-2022 Nitrite Ql (U) Negative Negative [facility] Work Phone: [phone] No Panel Informationon 02-02 Bld Gas Crit Called To/Read Back By Yes [facility] Work Phone: [phone] Blood Gas Sample Site L Radial [facility] Work Phone: [phone] Blood Gas Specimen Type ART [facility] Work Phone: [phone] Blood Gas Total CO2 7 mmol/L [facility] Work Phone: [phone] Bed Mix Venous Bld PCO2 at Pat Temp 18.7 mmHg 41-51 [facility] Work Phone: [phone] Blood Gas Notified Time 19:40:39 [facility] Work Phone: [phone] Blood Gas Notified Whom Reodica [facility] Work Phone: [phone] Oxygen Delivery Device Room Air [facility] Work Phone: [phone] Venous Blood Base Excess -26 mmol/L -1.0-3.5 [facility] Work Phone: Oxygen (BldA) [Partial press ure]on 02-02-2022 Oxygen (Bld) [Partial pressure] 48 mmHG 75-100 [facility] Work Phone: PO2 venouson 02-02-2022 Oxygen (BldV) [Partial pressure] 69 mm[Hg] 25-40 [facility] Work Phone: Protein Test strip Ql (U)on 02-02-2022 Protein Ql (U) 100 mg/dl Negative [facility] Work Phone: Serum or plasma acetone xin urement (mass/volume)on 02-02-2022 Acetone [Mass/Vol] MODERATE NEG [facility] Work Phone: Serum or plasma albumin xin urement (mass/volume)on 02-02-2022 Albumin [Mass/Vol] 4.2 g/dL 3.2-5.0 [facility] Work Phone: Serum or plasma albumin/glob ulin mass ratioon 02-02-2022 Albumin/Globulin [Mass ratio] 0.9 {ratio} 0.9-2.4 [facility] Work Phone: Squamous epithelial cells de tection in urine sediment by light microscopyon 02-02-2022 Epithelial cells.squamous LM Ql (Urine sed) 0-5 SEEN /hpf 5-10 [facility] Work Phone: Thin prep Papanicolaou smear with manual screeningon 02-02-2022 Thin prep Papanicolaou smear with manual screening 37 U/L 15-37 [facility] Work Phone: Urine blood detectionon 01-07 RBC Ql (U) 10 /ul Negative [facility] Work Phone: RBC Ql (U) 0-5 SEEN /hpf 0-5 [facility] Work Phone: Urine clarityon 02-02-2022 Clarity (U) Clear Clear [facility] Work Phone: Urine color determinationon 02-02-2022 Color (U) Yellow Yellow [facility] Work Phone: Urine glucose detectionon Glucose Ql (U) 1000 mg/dl Normal [facility] Work Phone: Urine leukocyte esterase det ection by dipstickon 02-02-2022 Leukocyte esterase Test strip Ql (U) Negative Negative [facility] Work Phone: Urine pHon 02-02-2022 pH (U) 5.0 [pH] 5.0 - 8.0 [facility] Work Phone: Urine sediment bacteria coun t by microscopy (number/high power field)on 02-02-2022 Bacteria LM.HPF (Urine sed) [#/Area] 1 /[HPF] None Seen [facility] Work Phone: Urine specific gravity measu rementon 02-02-2022 Specific gravity (U) [Rel density] 1.030 1.002-1.030 [facility] Work Phone: Urobilinogen Auto test strip Ql (U)on 02-02-2022 Urobilinogen Ql (U) Normal mg/dl Normal [facility] Work Phone: Vital signson 02-02-2022 Oxygen saturation in Blood 83 % 50-70 [facility] Work Phone: pH measurementon 02-02-2022 pH (Unsp spec) 7.13 [pH] 7.35-7.45 [facility] Work Phone: pH (Unsp spec) 7.01 [pH] 7.32-7.42 [facility] Work Phone: Vital Signs Date Time Vital Sign Value Performing Clinician Dallini stephanie 09-28-2024 10:00-0400 Diastolic blood pressure 96 mm[Hg] Dr. Meena Flowers DO Work Phone: [facility] 09-28-2024 10:00-0400 Heart rate 98 /min Dr. Meena Flowers DO Work Phone: [facility] 09-28-2024 10:00-0400 Respiratory rate 18 /min Dr. Meena Flowers DO Work Phone: [facility] 09-28-2024 10:00-0400 SaO2% (BldA) [Mass fraction] 100 % Dr. Meena Flowers DO Work Phone: [facility] 09-28-2024 10:00-0400 Systolic blood pressure 150 mm[Hg] Dr. Meena Flowers DO Work Phone: [facility] 09-28-2024 08:00-0400 Body temperature 97.8 [degF] Dr. Meena Flowers DO Work Phone: [facility] 09-28-2024 05:44-0400 Body mass index (BMI) [Ratio] 29.3 kg/m2 Dr. Meena Flowers DO Work Phone: [facility] 09-28-2024 05:44-0400 Body weight 70.[address] Meena Flowers DO Work Phone: [facility] 09-26-2024 13:32-0400 Body height 154.[address] Meena Flowers DO Work Phone: [facility] 09-26-2024 12:19-0400 Body temperature 98.1 [degF] Dr. Meena Flowers DO Work Phone: [facility] 09-26-2024 12:19-0400 Diastolic blood pressure 78 mm[Hg] Dr. Meena Flowers DO Work Phone: [facility] 09-26-2024 12:19-0400 Heart rate 122 /min Dr. Meena Flowers DO Work Phone: [facility] 09-26-2024 12:19-0400 Respiratory rate 23 /min Dr. Meena Flowers DO Work Phone: [facility] 09-26-2024 12:19-0400 SaO2% (BldA) [Mass fraction] 98 % Dr. Meena Flowers DO Work Phone: [facility] 09-26-2024 12:19-0400 Systolic blood pressure 131 mm[Hg] Dr. Meena Flowers DO Work Phone: [facility] 09-26-2024 09:28-0400 Body height 154.[address] Meena Flowers DO Work Phone: [facility] 09-26-2024 09:28-0400 Body mass index (BMI) [Ratio] 28.5 kg/m2 Dr. Meena Flowers DO Work Phone: [facility] 09-26-2024 09:28-0400 Body weight 68.[address] Meena Flowers DO Work Phone: [facility] 09-24-2023 14:26-0400 Body temperature 97 [degF] [facility] 09-24-2023 14:26-0400 Diastolic blood pressure 85 mm[Hg] [facility] 09-24-2023 14:26-0400 Heart rate 79 /min [facility] 09-24-2023 14:26-0400 Respiratory rate 16 /min [facility] 09-24-2023 14:26-0400 SaO2% (BldA) [Mass fraction] 99 % [facility] 09-24-2023 14:26-0400 Systolic blood pressure 123 mm[Hg] [facility] 09-24-2023 12:26-0400 Body height 154.94 cm [facility] 09-24-2023 12:26-0400 Body mass index (BMI) [Ratio] 29.9 kg/m2 [facility] 09-24-2023 12:26-0400 Body weight 71.93 kg [facility] 06-05-2023 14:18-0500 Body temperature 98.2 [degF] Dr. Meena Flowers Work Phone: [facility] 06-05-2023 14:18-0500 Heart rate 72 /min Dr. Meena Flowers Work Phone: [facility] 06-05-2023 14:18-0500 Respiratory rate 14 /min Dr. Meena Flowers Work Phone: [facility] 06-05-2023 12:53-0500 Body mass index (BMI) [Ratio] 31.9 kg/m2 Dr. Meena Flowers Work Phone: [facility] 06-05-2023 12:53-0500 Body weight 76.[address] Meena Flowers Work Phone: [facility] 06-05-2023 12:35-0500 Body height 154.[address] Meena Flowers Work Phone: [facility] 06-05-2023 12:35-0500 Diastolic blood pressure 96 mm[Hg] Dr. Meena Flowers Work Phone: [facility] 06-05-2023 12:35-0500 SaO2% (BldA) [Mass fraction] 100 % Dr. Meena Flowers Work Phone: [facility] 06-05-2023 12:35-0500 Systolic blood pressure 139 mm[Hg] Dr. Meena Flowers Work Phone: [facility] 05-26-2023 12:00-0500 Body temperature 98 [degF] Dr. Meena Flowers Work Phone: [facility] 05-26-2023 12:00-0500 Diastolic blood pressure 96 mm[Hg] Dr. Meena Flowers Work Phone: [facility] 05-26-2023 12:00-0500 Heart rate 110 /min Dr. Meena Flowers Work Phone: [facility] 05-26-2023 12:00-0500 Respiratory rate 20 /min Dr. Meena Flowers Work Phone: [facility] 05-26-2023 12:00-0500 SaO2% (BldA) [Mass fraction] 98 % Dr. Meena Flowers Work Phone: [facility] 05-26-2023 12:00-0500 Systolic blood pressure 125 mm[Hg] Dr. Meena Flowers Work Phone: [facility] 05-26-2023 09:35-0500 Body height 154.[address] Meena Flowers Work Phone: [facility] 05-26-2023 09:35-0500 Body weight 75.[address] Meena Flowers Work Phone: [facility] 05-26-2023 05:20-0500 Body mass index (BMI) [Ratio] 31.5 kg/m2 Dr. Meena Flowers Work Phone: [facility] 05-25-2023 20:23-0500 Diastolic blood pressure 81 mm[Hg] [facility] 05-25-2023 20:23-0500 Heart rate 92 /min [facility] 05-25-2023 20:23-0500 Respiratory rate 14 /min [facility] 05-25-2023 20:23-0500 SaO2% (BldA) [Mass fraction] 98 % [facility] 05-25-2023 20:23-0500 Systolic blood pressure 124 mm[Hg] [facility] 05-25-2023 16:43-0500 Body height 154.94 cm [facility] 05-25-2023 16:43-0500 Body mass index (BMI) [Ratio] 31.6 kg/m2 [facility] 05-25-2023 16:43-0500 Body temperature 97.3 [degF] [facility] 05-25-2023 16:43-0500 Body weight 75.97 kg [facility] 05-23-2023 03:27-0500 Diastolic blood pressure 88 mm[Hg] [facility] 05-23-2023 03:27-0500 Heart rate 72 /min [facility] 05-23-2023 03:27-0500 Respiratory rate 16 /min [facility] 05-23-2023 03:27-0500 SaO2% (BldA) [Mass fraction] 98 % [facility] 05-23-2023 03:27-0500 Systolic blood pressure 139 mm[Hg] [facility] 05-23-2023 00:53-0500 Body height 154.94 cm [facility] 05-23-2023 00:53-0500 Body mass index (BMI) [Ratio] 31.9 kg/m2 [facility] 05-23-2023 00:53-0500 Body temperature 97.1 [degF] [facility] 05-23-2023 00:53-0500 Body weight 76.7 kg [facility] 02-03-2022 15:32-0400 Body temperature 96.3 [degF] [facility] Work Phone: 02-03-2022 15:32-0400 Diastolic blood pressure 77 mm[Hg] [facility] Work Phone: 02-03-2022 15:32-0400 Heart rate 95 /min [facility] Work Phone: 02-03-2022 15:32-0400 Respiratory rate 17 /min [facility] Work Phone: 02-03-2022 15:32-0400 SaO2% (BldA) [Mass fraction] 99 % [facility] Work Phone: 02-03-2022 15:32-0400 Systolic blood pressure 115 mm[Hg] [facility] Work Phone: 02-03-2022 09:13-0400 Body height 154.[address] [facility] Work Phone: 02-03-2022 09:13-0400 Body weight 72.[address] [facility] Work Phone: 02-02-2022 21:05-0400 Body mass index (BMI) [Ratio] 29.5 kg/m2 [facility] Work Phone: Encounters Encounter Date Encounter Type Care Provider Facility Start: 09-28-2024 Non-patient / Non-visit Dr. Dian Galan MD -[facility] Work Phone: Start: 09-27-2024 Non-patient / Non-visit Dr. Reny Julien MD -[facility] Work Phone: Start: 09-26-2024 ambulatory Meenairina Flowers Facility:[facility] Start: 09-26-2024 End: 09-28-2024 Evaluation and management of inpatient Dr. Maggie Reed MD -Intensive Care Unit Work Phone: Start: 04-04-2024 ambulatory Bryce Julien Fac ility:[facility] Start: 04-04-2024 End: 04-05-2024 Evaluation and management of inpatient Meenairina Flowers Facility:[facility] Start: 09-24-2023 End: 09-24-2023 Emergency department patient visit [facility] Work Phone: Start: 06-05-2023 End: 06-05-2023 Emergency department patient visit Dr. Meean Flowers Work Phone: [facility] Work Phone: Start: 05-26-2023 Non-patient / Non-visit Dr. Letitia Flowers Work Phone: [facility] Work Phone: Start: 05-25-2023 Non-patient / Non-visit Dr. Letitia Flowers Work Phone: [facility] Work Phone: Start: 05-25-2023 End: 05-26-2023 Evaluation and management of inpatient [facility] Work Phone: Start: 05-23-2023 Registered Referred [facility] Work Phone: Start: 05-23-2023 End: 05-23-2023 Emergency department patient visit [facility] Work Phone: Start: 02-03-2022 [facility] Start: 02-02-2022 Non-patient / [facility] Start: 02-02-2022 End: 02-03-2022 Evaluation and management of inpatient [facility]Int[facility] Procedures Date Procedure Procedure Detail Performing Clinician Start: 09-26-2024 Plain chest X-ray Dr. Andreas Flowers DO Work Phone: Start: 05-25-2023 Plain chest X-ray Start: 05-23-2023 CT cervical spine wi thout contrast Start: 05-23-2023 CT of head without contrast Start: 05-23-2023 Plain chest X-ray Start: 05-23-2023 Radiologic examinati on of knee Plan of Treatment Date Care Activity Detail Author Start: 09-29-2024 [facility] Start: 09-28-2024 Patient discharge [facility] Start: 09-28-2024 End: 09-29-2024 [facility] Start: 09-28-2024 Care regimes management [facility] Start: 09-28-2024 Notification of physician [facility] Start: 09-28-2024 End: 09-28-2024 [facility] Start: 09-28-2024 Care regimes management [facility] Start: 09-28-2024 Notification of physician [facility] Start: 09-27-2024 Urine culture Urine Culture [facility] Start: 09-27-2024 [facility] Start: 09-27-2024 End: 09-27-2024 [facility] Start: 09-26-2024 [facility] Start: 09-26-2024 Assessment of risk o f venous thromboembolism [facility] Start: 09-26-2024 Continuous pulse oximetry [facility] Start: 09-26-2024 End: 09-26-2024 Following clinical pathway protocol [facility] Start: 09-26-2024 Insertion of cathete r into peripheral vein [facility] Start: 09-26-2024 Lab findings surveillance [facility] Start: 09-26-2024 Measuring intake and output [facility] Start: 09-26-2024 Notification of physician [facility] Start: 09-26-2024 Patient education [facility] Start: 09-26-2024 Patient referral to dietitian [facility] Start: 09-26-2024 Providing care accor ding to standard [facility] Start: 09-26-2024 Referral to occupati onal therapist [facility] Start: 09-26-2024 Referral to service [facility] Start: 09-26-2024 Vital signs measurements [facility] Start: 09-26-2024 [facility] Start: 09-26-2024 Hospital admission, emergency, from emergency room, medical nature [facility] Start: 09-26-2024 Verification routine [facility] Start: 09-26-2024 Admission procedure [facility] Start: 09-26-2024 End: 09-27-2024 [facility] Start: 09-24-2023 Blood chemistry [facility] Start: 09-24-2023 [facility] Start: 06-05-2023 [facility] Start: 06-05-2023 Simple repair scalp/neck/ax/genit/trunk 2.5cm/< RPR S/N/AX/GEN/TRNK 2.5CM/< [facility] Start: 05-26-2023 Blood chemistry [facility] Start: 05-26-2023 Blood chemistry [facility] Start: 05-26-2023 Patient discharge [facility] Start: 05-26-2023 Blood chemistry [facility] Start: 05-26-2023 Care regimes management [facility] Start: 05-26-2023 Notification of physician [facility] Start: 05-26-2023 [facility] Start: 05-26-2023 Blood chemistry [facility] Start: 05-26-2023 [facility] Start: 05-26-2023 Blood chemistry [facility] Start: 05-26-2023 [facility] Start: 05-26-2023 Blood chemistry [facility] Start: 05-25-2023 Assessment of risk o f venous thromboembolism [facility] Start: 05-25-2023 Continuous pulse oximetry [facility] Start: 05-25-2023 End: 05-25-2023 Following clinical pathway protocol [facility] Start: 05-25-2023 Insertion of cathete r into peripheral vein [facility] Start: 05-25-2023 Lab findings surveillance [facility] Start: 05-25-2023 Measuring intake and output [facility] Start: 05-25-2023 Notification of physician [facility] Start: 05-25-2023 Oxygen therapy [facility] Start: 05-25-2023 Patient education [facility] Start: 05-25-2023 Patient referral to dietitian [facility] Start: 05-25-2023 Providing care accor ding to standard [facility] Start: 05-25-2023 Vital signs measurements [facility] Start: 05-25-2023 [facility] Start: 05-25-2023 Blood chemistry [facility] Start: 05-25-2023 Verification routine [facility] Start: 05-25-2023 Admission procedure [facility] Start: 05-23-2023 [facility] Start: 05-23-2023 Blood chemistry [facility] Start: 05-23-2023 End: 05-23-2023 [facility] Start: 02-03-2022 Patient discharge [facility] Work Phone: Start: 02-02-2022 Application of inter mittent pneumatic compression device [facility] Work Phone: Start: 02-02-2022 Assessment of risk o f venous thromboembolism [facility] Work Phone: Start: 02-02-2022 Consultation [facility] Work Phone: Start: 02-02-2022 Continuous pulse oximetry [facility] Work Phone: Start: 02-02-2022 End: 02-02-2022 Following clinical pathway protocol [facility] Work Phone: Start: 02-02-2022 Incentive spirometry [facility] Work Phone: Start: 02-02-2022 Inhalation therapy procedure [facility] Work Phone: Start: 02-02-2022 Insertion of cathete r into peripheral vein [facility] Work Phone: Start: 02-02-2022 Introduction of urin mar catheter [facility] Work Phone: Start: 02-02-2022 Lab findings surveillance [facility] Work Phone: Start: 02-02-2022 Measuring intake and output [facility] Work Phone: Start: 02-02-2022 Notification of physician [facility] Work Phone: Start: 02-02-2022 Oxygen therapy [facility] Work Phone: Start: 02-02-2022 Patient education [facility] Work Phone: Start: 02-02-2022 Patient referral to dietitian [facility] Work Phone: Start: 02-02-2022 Providing care accor ding to standard [facility] Work Phone: Start: 02-02-2022 Provision of activit y privileges [facility] Work Phone: Start: 02-02-2022 Referral to service [facility] Work Phone: Start: 02-02-2022 Tobacco use cessatio n education [facility] Work Phone: Start: 02-02-2022 Vital signs measurements [facility] Work Phone: Start: 02-02-2022 [facility] Work Phone: Start: 02-02-2022 Admission procedure [facility] Work Phone: Start: 02-02-2022 Patient referral to dietitian [facility] Work Phone: Anion gap measurement [facility] Anion gap measurement [facility] Anion gap measurement [facility] An[facility] gap measurement [facility] Anion gap measurement [facility] Anion gap measurement [facility] Anion gap measurement [facility] Anion gap measurement [facility] BUN/Creatinine [facility] BUN/Creatinine [facility] BUN/Creatinine [facility] Calcium [Mass/volume ] in Serum or Plasma [facility] Calcium [Mass/volume ] in Serum or Plasma [facility] Calcium [Mass/volume ] in Serum or Plasma [facility] Calcium [Mass/volume ] in Serum or Plasma [facility] Calcium [Mass/volume ] in Serum or Plasma [facility] Calcium [Mass/volume ] in Serum or Plasma [facility] Calcium [Mass/volume ] in Serum or Plasma [facility] Calcium [Mass/volume ] in Serum or Plasma [facility] Carbon dioxide, tota l [Moles/volume] in Serum or Plasma [facility] Carbon dioxide, tota l [Moles/volume] in Serum or Plasma [facility] Carbon dioxide, tota l [Moles/volume] in Serum or Plasma [facility] Carbon dioxide, tota l [Moles/volume] in Serum or Plasma [facility] Carbon dioxide, tota l [Moles/volume] in Serum or Plasma [facility] Carbon dioxide, tota l [Moles/volume] in Serum or Plasma [facility] Carbon dioxide, tota l [Moles/volume] in Serum or Plasma [facility] Carbon dioxide, tota l [Moles/volume] in Serum or Plasma [facility] Chloride [Moles/volu me] in Serum or Plasma [facility] Chloride [Moles/volu me] in Serum or Plasma [facility] Chloride [Moles/volu me] in Serum or Plasma [facility] Chloride [Moles/volu me] in Serum or Plasma [facility] Chloride [Moles/volu me] in Serum or Plasma [facility] Chloride [Moles/volu me] in Serum or Plasma [facility] Chloride [Moles/volu me] in Serum or Plasma [facility] Chloride [Moles/volu me] in Serum or Plasma [facility] Creatinine [Moles/vo lume] in Serum or Plasma [facility] Creatinine [Moles/vo lume] in Serum or Plasma [facility] Creatinine [Moles/vo lume] in Serum or Plasma [facility] Creatinine [Moles/vo lume] in Serum or Plasma [facility] Creatinine [Moles/vo lume] in Serum or Plasma [facility] Creatinine [Moles/vo lume] in Serum or Plasma [facility] Creatinine [Moles/vo lume] in Serum or Plasma [facility] Creatinine [Moles/vo lume] in Serum or Plasma [facility] Glucose [Mass/volume ] in Serum or Plasma [facility] Glucose [Mass/volume ] in Serum or Plasma [facility] Glucose [Mass/volume ] in Serum or Plasma [facility] Glucose [Mass/volume ] in Serum or Plasma [facility] Glucose [Mass/volume ] in Serum or Plasma [facility] Glucose [Mass/volume ] in Serum or Plasma [facility] Glucose [Mass/volume ] in Serum or Plasma [facility] Glucose [Mass/volume ] in Serum or Plasma [facility] Hematocrit [Volume F raction] of Blood [facility] Hemoglobin [Mass/vol ume] in Blood [facility] Hemoglobin A1c/Hemoglobin.total in Blood [facility] Leukocytes [#/volume ] in Blood [facility] Magnesium [Mass/volu me] in Serum or Plasma [facility] Mean corpuscular hem oglobin concentration determination [facility] Mean corpuscular hem oglobin determination [facility] Measurement of renal function [facility] Measurement of renal function [facility] Measurement of renal function [facility] Measurement of renal function [facility] Measurement of renal function [facility] Measurement of renal function [facility] Measurement of renal function [facility] Measurement of renal function [facility] Neutrophil count [facility] Neutrophil percent differential count [facility] Patient Education [facility] Work Phone: Patient referral [facility] Work Phone: Platelets [#/volume] in Blood [facility] Potassium [Moles/vol ume] in Serum or Plasma [facility] Potassium [Moles/vol ume] in Serum or Plasma [facility] Potassium [Moles/vol ume] in Serum or Plasma [facility] Potassium [Moles/vol ume] in Serum or Plasma [facility] Potassium [Moles/vol ume] in Serum or Plasma [facility] Potassium [Moles/vol ume] in Serum or Plasma [facility] Potassium [Moles/vol ume] in Serum or Plasma [facility] Potassium [Moles/vol ume] in Serum or Plasma [facility] Red blood cell count [facility] Red cell distributio n width determination [facility] Sodium [Moles/volume ] in Serum or Plasma [facility] Sodium [Moles/volume ] in Serum or Plasma [facility] Sodium [Moles/volume ] in Serum or Plasma [facility] Sodium [Moles/volume ] in Serum or Plasma [facility] Sodium [Moles/volume ] in Serum or Plasma [facility] Sodium [Moles/volume ] in Serum or Plasma [facility] Sodium [Moles/volume ] in Serum or Plasma [facility] Sodium [Moles/volume ] in Serum or Plasma [facility] Urea nitrogen [Mass/ volume] in Serum or Plasma [facility] Urea nitrogen [Mass/ volume] in Serum or Plasma [facility] Urea nitrogen [Mass/ volume] in Serum or Plasma [facility] Urea nitrogen [Mass/ volume] in Serum or Plasma [facility] Urea nitrogen [Mass/ volume] in Serum or Plasma [facility] Urea nitrogen [Mass/ volume] in Serum or Plasma [facility] Urea nitrogen [Mass/ volume] in Serum or Plasma [facility] Urea nitrogen [Mass/ volume] in Serum or Plasma [facility] Payers Date Payer Category Payer Self-pay [id number] 2014 Unknown [id number] Private Health Insurance [id number] Unknown [id number] [id number] Unknown [id number] [id number] Unknown [id number] [id number] Unknown [id number] 2.16.8 [id number] Unknown [id number] 2.16.8 [id number] Unknown [id number] 2.16.8 [id number] Unknown [id number] [id number] [id number] Social History Date Type Detail Facility [facility] Work Phone: Start: 02-02-2022 End: 09-24-2023 Tobacco smoking status PRIS Unknown if ever smoked [facility] Start: 11-16-2020 Cigarettes [facility] Start: 1990 Sex Assigned At Female [facility] Start: 09-26-2024 End: 09-28-2024 Tobacco smoking status [facility] Current Light tobacco smoker [facility] Start: 09-26-2024 End: 09-28-2024 Sex Female (finding) [facility] NEGATED: Highlighted row [facility] NEGATED: Highlighted row Not [facility] Goals Date Patient Goal Desired Activity /State Functional Status Date Assessment Result Facility 09-28-2024 Functional status Bathroom Privilege [facility] Work Phone: 05-26-2023 Functional status Ambulates [facility] Work Phone: 02-03-2022 Functional status Dangle Feet;Chair [facility] Work Phone: Mental Status Date Assessment Result Facility 09-28-2024 Cognitive function Voice/Name [facility] Work Phone: 09-26-2024 Cognitive function Level Of Cons ciousness Awake;Alert;Appropriate;Follow s Commands [facility] Work Phone: 09-24-2023 Cognitive function Level Of Cons ciousness Awake;Alert;Appropriate;Follow s Commands [facility] Work Phone: 05-25-2023 Cognitive function Level Of Cons ciousness Awake;Alert;Appropriate;Follow s Commands [facility] Work Phone: 02-03-2022 Cognitive function Appropriate [facility] Work Phone: Clinical Notes 05-26-2023 to 09-28-2024 Note Date & Type Note Facility 09-28-2024 Note [facility] Medical Records Department [address] [place] [address] Discharge Summary 09/28/24 1310 MR#: [id number] Acct: [id number] Name: BRETT BOBBY Rep #: [id number] : 1990 33 From: Bryce Julien MD PCP: Dr. Meena Flowers DO Status:DIS IN Location: ICU [id number] Providers Date of Admission: 09/26/24 Primary Care Physician: Dr. Meena Flowers DO Reason For Visit: DKA Diagnosis Discharge Diagnosis (1) DKA (diabetic ketoacidosis): Status: Acute Code(s): E11.10 - Type 2 diabetes mellitus with ketoacidosis without coma Medications at Discharge Home Medications insulin aspart U-100 100 unit/mL (3 mL) subcutaneous pen (Novolog FlexPen U-100 Insulin aspart) See Protocol subcut TID PRN Hyperglycemia 02/02/22 insulin glargine-yfgn 100 unit/mL (3 mL) subcutaneous pen 30 unit (0.3 mL) subcut BID diabete #0 mL 04/05/24 Hospital Course Operations None Procedures None Summary of Care Provided Minutes Spent on Discharge: 35 Hospital Course: Per HPI: BRETT BOBBY, is a 33 F with a PMH of type 1 diabetes mellitus who presents via the ED on 09/26/2024 with a complaint of elevated blood sugars. She woke up at 3:30am on the day of admission with vomiting; she then fell short of breath and had not been able to keep anything down orally. She felt like she was in DKA. She denied any fever, chills, cough, chest pain, palpitations, dizziness or any urinary symptoms. She said she had a recurrent Bartholin cyst recently which drained spontaneously. She also denies any urinary symptoms. Vitals in the ED were BP of 116/78, WA of 121, RR of 16 and temp of 98F. She was saturating at 98% on room air. CBC was pending as well as CMP. VBG showed pH ob 7.06, pO2 of 157 and bicarb of 5. Urine tox showed glucosa of 1000mg/dl and negative nitrites. she had 1+ bactereia in her urine. POC glucose was 341. She is being admitted to be managed for DKA and probable UTI. Hospital Course: 1. DKA???33-year-old female presented to the hospital with recurrent episode of DKA. She had been hospitalized in March for DKA secondary to a faulty blood sugar monitor and now she double checks some of her readings on fingerstick. She feels much better today and her lab work has improved. Her bicarb is still low however we have been having issues specifically with anion gap and bicarb evaluations in the hospital so given that clinically she is feeling much better and her sugars are controlled and she is tolerating a diet I discussed with her the possibility of discharge today and she expressed understanding of the risks and benefits of going home and would like to go home today. No changes were made to her insulin, she was given IV Rocephin for possible UTI, she completed 3 days of IV Rocephin though urine culture shows no growth. I did give her the option to stay 1 more day to make sure that labs continue to improve however given how well she was feeling she would prefer to go home. I do recommend she follow-up with her PCP in 3 to 5 days for outpatient monitoring and evaluation of her blood sugar and BMP. Physical Exam Narrative General: Alert, Oriented x3, Cooperative, No apparent distress HEENT: Atraumatic, PERRLA, EOMI, Normocephalic Oral: Moist Mucosa Neck: Supple, No JVD Lungs: Diminished, Normal air movement, No rhonchi, No wheeze, No rales Cardiovascular: Tachycardic, Regular Rhythm, Normal S1, Normal S2, No murmurs Abdomen: Soft, Non Tender, Non-Distended, No Hepato-splenomegaly Extremities: No edema, Capillary Refill Less than 3 Seconds Skin: No rashes, No breakdown Musculoskeletal: No Tenderness to Palpation of Joints or Extremities Neurological: No focal neurological deficits, Motor Exam 5/5 strength throughout, Sensory exam intact to light touch and pain Psych/Mental Status: Normal Affect, Appropriate Weight / BMI Weight Weight: 155 lb 6.814 oz Body Mass Index (BMI) 29.3 ABG / Lab / Microbiology Data 09/28/24 05:35 09/28/24 05:35 Laboratory: Laboratory Results - last 24 hr 09/27/24 00:20: Anion Gap 18 H 09/27/24 13:10: POC Glucose 190 H 09/27/24 14:00: POC Glucose 172 H 09/27/24 15:04: POC Glucose 216 H 09/27/24 16:10: Sodium 132 L, Potassium 3.5, Chloride 104, Carbon Dioxide 12.3 L, Anion Gap 16 H, BUN 7, Creatinine 0.76, Estim Creat Clear Calc 93.66, Est GFR (MDRD) Non-Af 106, BUN/Creatinine Ratio 9.0 L, Glucose 245 H, Calcium 8.0 09/27/24 16:11: POC Glucose 229 H 09/27/24 17:23: POC Glucose 207 H 09/27/24 18:09: POC Glucose 171 H 09/27/24 18:58: POC Glucose 111 H 09/27/24 19:44: POC Glucose 140 H 09/27/24 19:50: Sodium 131 L, Potassium 6.1 H*, Chloride 105, Carbon Dioxide 15.2 L, Anion Gap 11, BUN 5, Creatinine 0.80, Estim Creat Clear Calc 88.97, Est GFR (MDRD) Non-Af 99, BUN/Creatinine Ratio 6.8 L, Glucose 127 H, Calcium 7.8 09/07 (more content not included)... [facility] 09-28-2024 Discharge summary Note Date/Time September 28, 2024 9:19am [facility] Medical Records Department [address] [place] [address] Instructions for Home/Discharge Instructions 09/28/24 0900 MR#: [id number] Acct: [id number] Name: BRETT BOBBY Rep #:[id number] : 1990 33 From: Bryce vega MD PCP: Dr. Meena Flowers DO Status:ADM IN Discharge Instructions Diet Discharge Diet: Carb Control Diet DC O2, CPAP, BIPAP needs Home O2 Discharge instructions: No Dressing / Incision Discharge Activity: Return to Normal Activity Dressing / Incision Call your doctor if you observe: Fever of 101 or Higher, Shortness of breath, Dizziness, Fainting spells, Swelling in the ankles, Chest pain and Increased palpitations (irregular heartbeat) Follow Up Care Test Results: Test results from this visit will be discussed in further detail at your follow-up appointment, if applicable. Discharge Plan Admission Admit Date/Time: 09/26/24 11:04 Attending Provider: Bryce Julien Primary Care Provider: Meena Flowers Consulting Providers: Maggie Reed Instructions Additional Instructions / Restrictions: Follow-up with your PCP in 3 to 5 days. Check your blood sugars 2-3 times dailyover the next couple of days to make sure normalization of your readings. Discharge Orders/Prescriptions Prescriptions: Continued insulin aspart U-100 [Novolog FlexPen U-100 Insulin] 100 unit/mL (3 mL) insulin pen See Protocol SUBCUT TID PRN (Reason: Hyperglycemia) Protocol: 6. Sliding Scale Insulin Custom Condition: mg/dl range Dose/Route: Number of Units Condition: 150-199 Dose/Route: 2 Condition: 200-250 Dose/Route: 4 Condition: 251-300 Dose/Route: 6 Condition: 301-349 Dose/Route: 8 Condition: 350-399 Dose/Route: 10 Condition: 400+ Dose/Route: 12 Protocol Text: Custom Sliding Scale insulin glargine-yfgn 100 unit/mL (3 mL) Insulin Pen 30 unit subcut BID Qty: 0 0RF Referrals / Follow Up: Meena Flowers DO [Primary Care Provider] - Within 1 Week Disposition Disposition (needs filled in before D/C Order can be placed): Home, Self Care 09/28/24 0919<Electronically signed by Bryce Julien MD>Bryce Julien MD CC: Dr. Meena Flowers DO; Dr. Maggie Reed MD ~ Signed [facility] Work Phone: 1(226) 348-180603-23-2025 Discharge summary [facility] Medical Records Department [address] [place] [address] Instructions for Home/Discharge Instructions 09/28/24 0900 MR#: [id number] Acct: [id number] Name: BRETT BOBBY Rep #:[id number] : 1990 33 From: Bryce vega MD PCP: Dr. Meena Flowers DO Status:ADM IN Discharge Instructions Diet Discharge Diet: Carb Control Diet DC O2, CPAP, BIPAP needs Home O2 Discharge instructions: No Dressing / Incision Discharge Activity: Return to Normal Activity Dressing / Incision Call your doctor if you observe: Fever of 101 or Higher, Shortness of breath, Dizziness, Fainting spells, Swelling in the ankles, Chest pain and Increased palpitations (irregular heartbeat) Follow Up Care Test Results: Test results from this visit will be discussed in further detail at your follow- up appointment, if applicable. Discharge Plan Admission Admit Date/Time: 09/26/24 11:04 Attending Provider: Bryce Julien Primary Care Provider: Meena Flowers Consulting Providers: Maggie Reed Instructions Additional Instructions / Restrictions: Follow-up with your PCP in 3 to 5 days. Check your blood sugars 2-3 times dailyover the next coupleof days to make sure normalization of your readings. Discharge Orders/Prescriptions Prescriptions: Continued insulin aspart U-100 [Novolog FlexPen U-100 Insulin] 100 unit/mL (3 mL) insulin pen See Protocol SUBCUT TID PRN (Reason: Hyperglycemia) Protocol: 6. Sliding Scale Insulin Custom Condition: mg/dl range Dose/Route: Number of Units Condition: 150-199 Dose/Route: 2 Condition: 200-250 Dose/Route: 4 Condition: 251-300 Dose/Route: 6 Condition: 301-349 Dose/Route: 8 Condition: 350-399 Dose/Route: 10 Condition: 400+ Dose/Route: 12 Protocol Text: Custom Sliding Scale insulin glargine-yfgn 100 unit/mL (3 mL) Insulin Pen 30 unit subcut BID Qty: 0 0RF Referrals / Follow Up: Meena Flowers DO [Primary Care Provider] - Within 1 Week Disposition Disposition (needs filled in before D/C Order can be placed): Home, Self Care 09/28/24 0919Bryce Julien MD CC: Dr. Meena Flowers DO; Dr. Maggie Reed MD ~ Signed [facility]03-23-2025 Progress note Author [facility] Note Date/Time September 28, 2024 1:0 6am [facility] Medical Records Department [address] [place] [address] Progress Note - Hospitalist 09/28/24104 MR#: [id number] Acct: [id number] Name: BRETT BOBBY Rep #:[id number] : 1990 33 From: Dian Galan MD PCP: Dr. Meena Flowers, DO Status:ADM IN Location: ICU CVICU20 2-1 Hospitalist Note Patient with AG closed x 2, episodes of symptomatic hypoglycemia now, will d/c drip, allow ADA diet, change to accu checks w/ ISS, restart longacting in AM since hypoglycemia present if appropriate. 09/28/24105 <Electronically signed by Dian Galan MD> Cosigner Signature (if applicable): CC: ~ Signed [facility] Work Phone: 1(794) 347-459303-23-2025 Progress note [facility] Medical Records Department [address] [place] [address] Progress Note - Hospitalist 09/28/24104 MR#: [id number] Acct: [id number] Name: BRETT BOBBY Rep #:[id number] : 1990 33 From: Dian Galan MD PCP: Dr. Meena Flowers, DO Status:ADM IN Location: ICU CVICU20 2-1 Hospitalist Note Patient with AG closed x 2, episodes of symptomatic hypoglycemia now, will d/c drip, allow ADA diet, change to accu checks w/ ISS, restart longacting in AM since hypoglycemia present if appropriate. 09/28/24105 Cosigner Signature (if applicable): CC: ~ Signed [facility]03-22-2025 Progress note Author Bryce Julien [facility] Note Date/Time September 27, 2024 11: 47am [facility] Medical Records Department [address] [place] [address] Progress Note - Hospitalist 09/27/24 1143 MR#: [id number] Acct: [id number] Name: BRETT BOBBY Rep #:[id number] : 1990 33 From: Bryce vega MD PCP: Dr. Meena Flowers, DO Status:ADM IN Location: ICU CVICU20 2-1 Subjective Subjective Feels much better than when she came into the hospital, and her numbers are improving though 9 AM labs are still pending Objective Data Objective Data Vital Signs: Vital Signs Temp Pulse Resp BP Pulse Ox O2 Del Method 98.9 F 101 H 20 H 121/61 H 100 Room Air 09/27/24 08:00 09/27/24 10:00 09/27/24 10:00 09/27/24 10:00 09/27/24 10:00 09/27/24 10:00 Oxygen Delivery Method Room Air Weight: 155 lb 6.814 oz Body Mass Index (BMI) 29.3 Intake & Output: Intake and Output for Last 24 Hours 09/26/24 09/27/24 09/28/24 03:59 03:59 03:59 Intake Total 3103.12 / 3103.12 1388.68 / 1388.68 Balance 3103.12 / 3103.12 1388.68 / 1388.68 Lab / Micro Data 09/27/24 05:55 09/27/24 04:18 Labs: Laboratory Results - last 24 hr 09/26/24 09:56: Hemoglobin A1c 10.2 09/26/24 12:18: POC Glucose 420 H 09/26/24 13:18: POC Glucose 361 H 09/26/24 13:31: Sodium Cancelled, Potassium Cancelled, Chloride Cancelled, Carbon Dioxide Cancelled, Anion Gap Cancelled, BUN Cancelled, Creatinine Cancelled, Estim Creat Clear Calc Cancelled, Est GFR (MDRD) Non-Af Cancelled, BUN/Creatinine Ratio Cancelled, Glucose Cancelled, Calcium Cancelled 09/26/24 14:06: POC Glucose 267 H 09/26/24 14:59: POC Glucose 232 H 09/26/24 15:52: Sodium 134, Potassium 5.2 H, Chloride 101, Carbon Dioxide 5.0 L*, Anion Gap 28 H, BUN 11, Creatinine 0.95, Estim Creat Clear Calc 74.06, Est GFR(MDRD) Non-Af 81, BUN/Creatinine Ratio 11.9, Glucose 245 H, Calcium 8.3 09/26/24 16:33: POC Glucose 246 H 09/26/24 17:17: POC Glucose 251 H 09/26/24 18:15: POC Glucose 240 H 09/26/24 19:01: POC Glucose 257 H 09/26/24 20:09: POC Glucose 223 H 09/26/24 20:30: Sodium 132 L, Potassium 4.6, Chloride 103, Carbon Dioxide 7.6 L*, Anion Gap 21 H, BUN 9, Creatinine 0.85, Estim Creat Clear Calc 82.77, Est GFR (MDRD) Non-Af 92, BUN/Creatinine Ratio 10.7, Glucose 255 H, Calcium 8.3 09/26/24 21:30: POC Glucose 235 H 09/26/24 22:14: POC Glucose 227 H 09/26/24 23:15: POC Glucose 201 H 09/27/24 00:16: POC Glucose 177 H 09/27/24 00:20: Sodium 132 L, Potassium 4.2, Chloride 105, Carbon Dioxide 9.6 L*, Anion Gap 18 H, BUN 9, Creatinine 0.83, Estim Creat Clear Calc 84.77, Est GFR (MDRD) Non-Af 95, BUN/Creatinine Ratio 10.7, Glucose 192 H, Calcium 8.2 09/27/24 01:14: POC Glucose 166 H 09/27/24 02:17: POC Glucose 157 H 09/27/24 04:09: POC Glucose 118 H 09/27/24 04:18: WBC Cancelled, Corrected WBC Cancelled, RBC Cancelled, Hgb Cancelled, Hct Cancelled, MCV Cancelled, MCH Cancelled, MCHC Cancelled, RDW Std Deviation Cancelled, RDW Coeff of Bret Cancelled, Plt Count Cancelled, MPV Cancelled, Immature Gran % (Auto) Cancelled, Neut % (Auto) Cancelled, Lymph % (Auto) Cancelled, [place] % (Auto) Cancelled, Eos % (Auto) Cancelled, Baso % (Auto)Cancelled, Absolute Neuts (auto) Cancelled, Absolute Lymphs (auto) Cancelled, Total Counted Cancelled, Neutrophils % (Manual) Cancelled, Band Neutrophils % Cancelled, Lymphocytes % (Manual) Cancelled, Monocytes % (Manual) Cancelled, Eosinophils % (Manual) Cancelled, Basophils % (Manual) Cancelled, Metamyelocytes% Cancelled, Myelocytes % Cancelled, Promyelocytes % Cancelled, Blast Cells % Cancelled, Plasma Cell % (Manual) Cancelled, Other Cells % Cancelled, Nucleated RBC % Cancelled, Nucleated RBCs/100 WBC Cancelled, Differential Comment Cancelled, Diff Path Review Cancelled, Hypersegmented Neuts Cancelled, Atypical Lymphocytes Cancelled, Reactive Lymphocytes Cancelled, Smudge Cells Cancelled, Toxic Granulation Cancelled, Toxic Vacuolation Cancelled, Dohle Bodies Cancelled, Myrtle Rods Cancelled, Platelet Estimate Cancelled, Plt Morphology Comment Cancelled, RBC Morphology Cancelled 09/27/24 04:18: RBC Morphology Cancelled, Polychromasia Cancelled, HypochromasiaCancelled, Basophilic Stippling Cancelled, Anisocytosis Cancelled, Microcytosis Cancelled, Macrocytosis Cancelled, Spherocytes Cancelled, Sickle Cells Cancelled, Target Cells Cancelled, Tear Drop Cells Cancelled, Ovalocytes Cancelled, Stomatocytes Cancelled, [place] Bodies Cancelled, Rdaha Cells Cancelled, Bite Cells Cancelled, Crenated Cell Cancelled, Acanthocytes (Spur) Cancelled, Rouleaux Cancelled, Schistocytes Cancelled, Sodium 133, Potassium 3.7, Chloride 107, Carbon Dioxide 10.4 L, Anion Gap 16 H, BUN 10, Creatinine 0.73, Estim Creat Clear Calc 96.38, Est GFR (MDRD) Non-Af 110, BUN/Creatinine Ratio 13.1, Glucose 119 H, Calcium 8.3 09/27/24 05:55: WBC 11.4 H, RBC 4.39, Hgb 13.0, Hct 41.4, MCV 94.3, MCH 29.6, MCHC 31.4 L, RDW Std Deviation 55.9 H, RDW Coeff of Bret 16.1 H, Plt Count 324, MPV 9.3, Immature Gran % (Auto) 0.400, Neut % (Auto) 71.7 H, Lymph % (Auto) 17.3L, Cidra % (Auto) 9.7, Eos % (Auto) 0.4, Baso % (Auto) 0.5, Absolute Neuts (auto)8.2 H, Absolute Lymphs (auto) 1.97, Nucleated RBC % 0 09/27/24 06:22: POC Glucose 81 09/27/24 06:57: POC Glucose 79 09/27/24 08:25: POC Glucose 172 H 09/27/24 09:54: POC Glucose 267 H 09/27/24 11:02: POC Glucose 306 H Rhythm Strip Rhythm Strip: Sinus Tach Rate: 112 Ectopy: None Physical Exam Narrative General: Alert, Oriented x3, Cooperative, No apparent distress HEENT: Atraumatic, PERRLA, EOMI, Normocephalic Oral: Moist Mucosa Neck: Supple, No JVD Lungs: Diminished, Normal air movement, No rhonchi, No wheeze, No rales Cardiovascular: Tachycardic, Regular Rhythm, Normal S1, Normal S2, No murmurs Abdomen: Soft, Non Tender, Non-Distended, No Hepato-splenomegaly Extremities: No edema, Capillary Refill Less than 3 Seconds Skin: No rashes, No breakdown Musculoskeletal: No Tenderness to Palpation of Joints or Extremities Neurological: No focal neurological deficits, Motor Exam 5/5 strength throughout, Sensory exam intact to light touch and pain Psych/Mental Status: Normal Affect, Appropriate Assessment & Plan Assessment/Plan (1) DKA (diabetic ketoacidosis): PLAN: Plan 1. DKA ? Continue with DKA protocol ? Will monitor her bicarb, it was below 10 on admission if her 9 AM labs result with a still very low bicarb may need to add a bicarb drip ? Can advance diet once anion gap is closed x 2 ? She is not sure as to why she went into DKA on this admission, the last time in March it was because her monitor was malfunctioning ? She was started on antibiotics for a UTI, UA with no leukocyte esterase or nitrates, no urine WBCs but there was 1+ bacteria and she did have a recent Bartholin cyst that started to drain spontaneously DVT: lovenox Charges/Coding Visit Charges Inpatient E&M: 69826 Subs Hosp L2 09/27/24 1149 <Electronically signed by Bryce Julien MD> Cosigner Signature (if applicable): CC: ~ Signed [facility] Work Phone: 1(924) 378-664103-22-2025 Progress note [facility] Medical Records Department [address] [place] [address] Progress Note - Hospitalist 09/27/24 1143 MR#: [id number] Acct: [id number] Name: BRETT BOBBY Rep #:[id number] : 1990 33 From: Bryce vega MD PCP: Dr. Meena Flowers, DO Status:ADM IN Location: ICU CVICU20 2-1 Subjective Subjective Feels much better than when she came into the hospital, and her numbers are improving though 9 AM labs are still pending Objective Data Objective Data Vital Signs: Vital Signs Temp Pulse Resp BP Pulse Ox O2 Del Method 98.9 F 101 H 20 H 121/61 H 100 Room Air 09/27/24 08:00 09/27/24 10:00 09/27/24 10:00 09/27/24 10:00 09/27/24 10:00 09/27/24 10:00 Oxygen Delivery Method Room Air Weight: 155 lb 6.814 oz Body Mass Index (BMI) 29.3 Intake & Output: Intake and Output for Last 24 Hours 09/26/24 09/27/24 09/28/24 03:59 03:59 03:59 Intake Total 3103.12 / 3103.12 1388.68 / 1388.68 Balance 3103.12 / 3103.12 1388.68 / 1388.68 Lab / Micro Data 09/27/24 05:55 09/27/24 04:18 Labs: Laboratory Results - last 24 hr 09/26/24 09:56: Hemoglobin A1c 10.2 09/26/24 12:18: POC Glucose 420 H 09/26/24 13:18: POC Glucose 361 H 09/26/24 13:31: Sodium Cancelled, Potassium Cancelled, Chloride Cancelled, Carbon Dioxide Cancelled, Anion Gap Cancelled, BUN Cancelled, Creatinine Cancelled, Estim Creat Clear Calc Cancelled, Est GFR (MDRD) Non-Af Cancelled, BUN/Creatinine Ratio Cancelled, Glucose Cancelled, Calcium Cancelled 09/26/24 14:06: POC Glucose 267 H 09/26/24 14:59: POC Glucose 232 H 09/26/24 15:52: Sodium 134, Potassium 5.2 H, Chloride 101, Carbon Dioxide 5.0 L*, Anion Gap 28 H, BUN 11, Creatinine 0.95, Estim Creat Clear Calc 74.06, Est GFR(MDRD) Non-Af 81, BUN/Creatinine Ratio 11.9, Glucose 245 H, Calcium 8.3 09/26/24 16:33: POC Glucose 246 H 09/26/24 17:17: POC Glucose 251 H 09/26/24 18:15: POC Glucose 240 H 09/26/24 19:01: POC Glucose 257 H 09/26/24 20:09: POC Glucose 223 H 09/26/24 20:30: Sodium 132 L, Potassium 4.6, Chloride 103, Carbon Dioxide 7.6 L*, Anion Gap 21 H, BUN 9, Creatinine 0.85, Estim Creat Clear Calc 82.77, Est GFR (MDRD) Non-Af 92, BUN/Creatinine Ratio 10.7, Glucose 255 H, Calcium 8.3 09/26/24 21:30: POC Glucose 235 H 09/26/24 22:14: POC Glucose 227 H 09/26/24 23:15: POC Glucose 201 H 09/27/24 00:16: POC Glucose 177 H 09/27/24 00:20: Sodium 132 L, Potassium 4.2, Chloride 105, Carbon Dioxide 9.6 L*, Anion Gap 18 H, BUN 9, Creatinine 0.83, Estim Creat Clear Calc 84.77, Est GFR (MDRD) Non-Af 95, BUN/Creatinine Ratio 10.7, Glucose 192 H, Calcium 8.2 09/27/24 01:14: POC Glucose 166 H 09/27/24 02:17: POC Glucose 157 H 09/27/24 04:09: POC Glucose 118 H 09/27/24 04:18: WBC Cancelled, Corrected WBC Cancelled, RBC Cancelled, Hgb Cancelled, Hct Cancelled, MCV Cancelled, MCH Cancelled, MCHC Cancelled, RDW Std Deviation Cancelled, RDW Coeff of Bret Cancelled, Plt Count Cancelled, MPV Cancelled, Immature Gran % (Auto) Cancelled, Neut % (Auto) Cancelled, Lymph % (Auto) Cancelled, Cidra % (Auto) Cancelled, Eos % (Auto) Cancelled, Baso % (Auto)Cancelled, Absolute Neuts (auto) Cancelled, Absolute Lymphs (auto) Cancelled, Total Counted Cancelled, Neutrophils % (Manual) Cancelled, Band Neutrophils % Cancelled, Lymphocytes % (Manual) Cancelled, Monocytes %(Manual) Cancelled, Eosinophils % (Manual) Cancelled, Basophils % (Manual) Cancelled, Metamyelocytes% Cancelled, Myelocytes % Cancelled, Promyelocytes % Cancelled, Blast Cells % Cancelled, Plasma Cell % (Manual) Cancelled, Other Cells % Cancelled, Nucleated RBC % Cancelled, Nucleated RBCs/100 WBC Cancelled, Differential Comment Cancelled, Diff Path Review Cancelled, Hypersegmented Neuts Cancelled, Atypical Lymphocytes Cancelled, Reactive Lymphocytes Cancelled, Smudge Cells Cancelled, Toxic Granulation Cancelled, Toxic Vacuolation Cancelled, Dohle Bodies Cancelled, Myrtle Rods Cancelled, Platelet Estimate Cancelled, Plt Morphology Comment Cancelled, RBC Morphology Cancelled 09/27/24 04:18: RBC Morphology Cancelled, Polychromasia Cancelled, HypochromasiaCancelled, Basophilic Stippling Cancelled, Anisocytosis Cancelled, Microcytosis Cancelled, Macrocytosis Cancelled, Spherocytes Cancelled, Sickle Cells Cancelled, Target Cells Cancelled, Tear Drop Cells Cancelled, Ovalocytes Cancelled, Stomatocytes Cancelled, [place] Bodies Cancelled, Radha Cells Cancelled, Bite Cells Cancelled, Crenated Cell Cancelled, Acanthocytes (Spur) Cancelled, Rouleaux Cancelled, Schistocytes Cancelled, Sodium 133, Potassium 3.7, Chloride 107, Carbon Dioxide 10.4 L, Anion Gap 16 H, BUN 10, Creatinine 0.73, Estim Creat Clear Calc 96.38, Est GFR (MDRD) Non-Af 110, BUN/Creatinine Ratio 13.1, Glucose 119 H, Calcium 8.3 09/27/24 05:55: WBC 11.4 H, RBC 4.39, Hgb 13.0, Hct 41.4, MCV 94.3, MCH 29.6, MCHC 31.4 L, RDW Std Deviation 55.9 H, RDW Coeff of Bret 16.1 H, Plt Count 324, MPV 9.3, Immature Gran % (Auto) 0.400, Neut % (Auto) 71.7 H, Lymph % (Auto) 17.3L, Cidra % (Auto) 9.7, Eos % (Auto) 0.4, Baso % (Auto) 0.5, Absolute Neuts (auto)8.2 H, Absolute Lymphs (auto) 1.97, Nucleated RBC % 0 09/27/24 06:22: POC Glucose 81 09/27/24 06:57: POC Glucose 79 09/27/24 08:25: POC Glucose 172 H 09/27/24 09:54: POC Glucose 267 H 09/27/24 11:02: POC Glucose 306 H Rhythm Strip Rhythm Strip: Sinus Tach Rate: 112 Ectopy: None Physical Exam Narrative General: Alert, Oriented x3, Cooperative, No apparent distress HEENT: Atraumatic, PERRLA, EOMI, Normocephalic Oral: Moist Mucosa Neck: Supple, No JVD Lungs: Diminished, Normal air movement, No rhonchi, No wheeze, No rales Cardiovascular: Tachycardic, Regular Rhythm, Normal S1, Normal S2, No murmurs Abdomen: Soft, Non Tender, Non-Distended, No Hepato-splenomegaly Extremities: No edema, Capillary Refill Less than 3 Seconds Skin: No rashes, No breakdown Musculoskeletal: No Tenderness to Palpation of Joints or Extremities Neurological: No focal neurological deficits, Motor Exam 5/5 strength throughout, Sensory exam intact to light touch and pain Psych/Mental Status: Normal Affect, Appropriate Assessment & Plan Assessment/Plan (1) DKA (diabetic ketoacidosis): PLAN: Plan 1. DKA ? Continue with DKA protocol ? Will monitor her bicarb, it was below 10 on admission if her 9 AM labs result with a still very low bicarb may need to add a bicarb drip ? Can advance diet once anion gap is closed x 2 ? She is not sure as to why she went into DKA on this admission, the last time in March it was because her monitor was malfunctioning ? She was started on antibiotics for a UTI, UA with no leukocyte esterase or nitrates, no urine WBCs but there was 1+ bacteria and she did have a recent Bartholin cyst that started to drain spontaneously DVT: lovenox Charges/Coding Visit Charges Inpatient E&M: 74778 Subs Hosp L2 09/27/24 1147 Cosigner Signature (if applicable): CC: ~ Signed [facility]03-21-2025 Discharge summary Author Aba Murguia [facility] Note Date/Time September 26, 2024 4:3 4pm [facility] Medical Records Department [address] [place] [address] Emergency Department Summary 09/26/24 MR#: [id number] Acct: [id number] Name: BRETT BOBBY Rep #:[id number] : 1990 33 From: Aba Murguia MD PCP: Dr. Meena Flowers, DO Status:ADM IN Location: ICU CVICU20 2-1 HPI History of Present Illness Chief Complaint: Hyperglycemia Informant: patient Narrative Narrative: 33-year-old type I diabetic who injects around insulin and woke up at about 3:30AM vomiting then feeling short of breath and feels like she may be in DKA. Has not used insulin this morning since she has not been able to eat anything. She states she seemed to be fine last night when she went to bed and has been using her insulin like normal. She states several days ago she had a recurrent Bartholin cyst/abscess that she was able to get to drain on her own and now she states it is completely resolved, but she has had no other symptoms of an illness recently. She states her Bartholin cyst/abscess is not sore anymore andis back to normal and feels fine. [facility] Medical History Tobacco abuse Stage 3a chronic kidney disease (CKD) Diabetes mellitus type 1, uncontrolled, insulin dependent Home Medications ?Medication ?Instructions ?Recorded ?Last Taken ?Type insulin aspart U-100 100 unit/mL See Protocol subcut T ID PRN 02/02/22 Unknown History (3 mL) subcutaneous pen (Novolog Hyperglycemia FlexPen U-100 Insulin aspart) insulin glargine-yfgn 100 unit/mL 30 unit (0.3 mL) sub cut BID 04/05/24 Unknown Rx (3 mL) subcutaneous pen diabete #0 mL Allergy/AdvReac Type Severity Reaction Status Date / Time bee venom protein (honey bee) Allergy Anaphylaxis Verified 09/26/24 10:07 Family History Grandmother Diabetes Hypertension Heart disease Grandfather Diabetes Colon cancer Surgical History Hx of tonsillectomy History of partial hysterectomy Social History household members: children current occupational exposures/hazards: No Smoking Status: Light Smoker (<10/day) alcohol intake: current alcohol intake frequency: holidays/special occasions only substance use type: does not use ROS ROS ED Constitutional Constitutional ED: Reports fatigue; Denies chills or fever(s) Eyes Eyes: Denies change in vision or diplopia ENT ENT ED: Denies rhinorrhea or sore throat Cardiovascular Cardiovascular: Reports racing heartbeat; Denies chest pain Respiratory/Chest Respiratory/Chest: Reports dyspnea; Denies cough Gastrointestinal Gastrointestinal: Reports nausea and vomiting; Denies abdominal pain or diarrhea Genitourinary Genitourinary ED: Denies dysuria or hematuria Musculoskeletal Musculoskeletal: Denies back pain or neck pain Integumentary Denies abscess or rash Neurologic Neurologic: Denies headache(s), paresthesias or weakness Psychiatric Psychiatric: Denies anxiety or suicidal thoughts EXAM Physical Exam Const Vital Signs: 09/26/24 09:28 09/26/24 09:29 09/26/24 10:07 Temperature 96.1 F L 98.0 F Temperature Source Temporal Oral Pulse Rate 130 H 121 H Respiratory Rate 20 H 16 Respiratory Effort Normal Respiratory Pattern Normal Blood Pressure 132/91 H 116/78 Blood Pressure Mean 104 90 Pulse Ox 98 98 Oxygen Delivery Method Room Air Room Air Positive well nourished and well developed General Appearance ED: well developed and NAD HEENT Reports moist mucous membranes normocephalic and atraumatic Eyes PERRL and EOMs intact bilaterally Neck full ROM and supple Resp normal respiratory effort and clear to auscultation bilaterally Resp Narrative: Tachypneic without distress Cardio regular rate, regular rhythm and no murmurs Rate: tachycardic GI non-tender and non-distended Auscultation: normoactive bowel sounds Palpation: soft Back/Spine no CVA tenderness General Back: other FROM Extremity normal to inspection General Extremety ED: Negative for edema, pulses abnormal or tenderness General Extremity: Negative for edema or pulses abnormal Neuro oriented x3, CN's II-XII intact bilaterally and no sensory deficits noted Sensorium / Orientation: awake and alert Motor Exam: strength 5/5 throughout Psych mental status grossly normal Skin no rashes or lesions noted and no wounds MDM MDM MDM Narrative Medical decision making narrative: Started with given the patient liter of IV fluids along with Zofran until we were able to see her potassium level. Her EKG shows sinus tachycardia, I do notsee any obvious U waves, nor sign of an injury. Initial blood sugar 341. VBG shows a pH of 7.055, and a pCO2 of 19, all consistent with acute metabolic acidosis, which in his case likely is DKA. The next test is her urine which shows ketones but otherwise negative for infection, her 1 view chest x-ray is normal showing no pneumonia on my interpretation. I took a while for her chemistries trickled back for unknown reasons, but eventually will start her on an insulin drip and handed her over to hospitalist service for ICU admission. Lab Data Attestation: I reviewed the patient's lab results. Labs: Laboratory Results - last 24 hr 09/26/24 09/26/24 09/26/24 09:56 09:56 09:56 WBC 14.5 H RBC 4.81 Hgb 14.2 Hct 45.9 MCV 95.4 MCH 29.5 MCHC 30.9 L RDW Std Deviation 57.2 H RDW Coeff of Bret 16.1 H Plt Count 464 H MPV 9.5 Immature Gran % (Auto) 0.500 Neut % (Auto) 68.9 Lymph % (Auto) 13.3 L Cidra % (Auto) 4.4 Eos % (Auto) 12.0 H Baso % (Auto) 0.9 Absolute Neuts (auto) 10.0 H Absolute Lymphs (auto) 1.92 Nucleated RBC % 0 Platelet Estimate SLT INC Sodium 134 Cancelled Potassium 4.7 Cancelled Chloride 94 L Carbon Dioxide Anion Gap BUN Creatinine Estim Creat Clear Calc Est GFR (MDRD) Non-Af BUN/Creatinine Ratio Glucose Calcium b-Hydroxybutyric mmol/L Urine Color Urine Clarity Urine pH Ur Specific Conway Urine Protein Urine Glucose (UA) Urine Ketones Urine Occult Blood Urine Nitrite Urine Bilirubin Urine Urobilinogen Ur Leukocyte Esterase Urine RBC Urine WBC Ur Squamous Epith Cells Urine Bacteria Fine Granular Casts Urine Mucus POC Glucose 09/26/24 09/26/24 09/26/24 09:56 09:56 09:56 WBC RBC Hgb Hct MCV MCH MCHC RDW Std Deviation RDW Coeff of Bret Plt Count MPV Immature Gran % (Auto) Neut % (Auto) Lymph % (Auto) Cidra % (Auto) Eos % (Auto) Baso % (Auto) Absolute Neuts (auto) Absolute Lymphs (auto) Nucleated RBC % Platelet Estimate Sodium Potassium Chloride Cancelled Carbon Dioxide 5.7 L* Cancelled Anion Gap 35 H Cancelled BUN 10 Creatinine Estim Creat Clear Calc Est GFR (MDRD) Non-Af BUN/Creatinine Ratio Glucose Calcium b-Hydroxybutyric mmol/L Urine Color Urine Clarity Urine pH Ur Specific Conway Urine Protein Urine Glucose (UA) Urine Ketones Urine Occult Blood Urine Nitrite Urine Bilirubin Urine Urobilinogen Ur Leukocyte Esterase Urine RBC Urine WBC Ur Squamous Epith Cells Urine Bacteria Fine Granular Casts Urine Mucus POC Glucose 09/26/24 09/26/24 09/26/24 09:56 09:56 09:56 WBC RBC Hgb Hct MCV MCH MCHC RDW Std Deviation RDW Coeff of Bret Plt Count MPV Immature Gran % (Auto) Neut % (Auto) Lymph % (Auto) Cidra % (Auto) Eos % (Auto) Baso % (Auto) Absolute Neuts (auto) Absolute Lymphs (auto) Nucleated RBC % Platelet Estimate Sodium Potassium Chloride Carbon Dioxide Anion Gap BUN Cancelled Creatinine 0.84 Cancelled Estim Creat Clear Calc 83.54 Cancelled Est GFR (MDRD) Non-Af 93 BUN/Creatinine Ratio Glucose Calcium b-Hydroxybutyric mmol/L Urine Color Urine Clarity Urine pH Ur Specific Conway Urine Protein Urine Glucose (UA) Urine Ketones Urine Occult Blood Urine Nitrite Urine Bilirubin Urine Urobilinogen Ur Leukocyte Esterase Urine RBC Urine WBC Ur Squamous Epith Cells Urine Bacteria Fine Granular Casts Urine Mucus POC Glucose 09/26/24 09/26/24 09/26/24 09:56 09:56 09:56 WBC RBC Hgb Hct MCV MCH MCHC RDW Std Deviation RDW Coeff of Bret Plt Count MPV Immature Gran % (Auto) Neut % (Auto) Lymph % (Auto) Cidra % (Auto) Eos % (Auto) Baso % (Auto) Absolute Neuts (auto) Absolute Lymphs (auto) Nucleated RBC % Platelet Estimate Sodium Potassium Chloride Carbon Dioxide Anion Gap BUN Creatinine Estim Creat Clear Calc Est GFR (MDRD) Non-Af Cancelled BUN/Creatinine Ratio 12.0 Cancelled Glucose 339 H Cancelled Calcium 9.3 b-Hydroxybutyric mmol/L Urine Color Urine Clarity Urine pH Ur Specific Conway Urine Protein Urine Glucose (UA) Urine Ketones Urine Occult Blood Urine Nitrite Urine Bilirubin Urine Urobilinogen Ur Leukocyte Esterase Urine RBC Urine WBC Ur Squamous Epith Cells Urine Bacteria Fine Granular Casts Urine Mucus POC Glucose 09/26/24 09/26/24 09/26/24 09:56 09:57 10:15 WBC RBC Hgb Hct MCV MCH MCHC RDW Std Deviation RDW Coeff of Bret Plt Count MPV Immature Gran % (Auto) Neut % (Auto) Lymph % (Auto) Cidra % (Auto) Eos % (Auto) Baso % (Auto) Absolute Neuts (auto) Absolute Lymphs (auto) Nucleated RBC % Platelet Estimate Sodium Potassium Chloride Carbon Dioxide Anion Gap BUN Creatinine Estim Creat Clear Calc Est GFR (MDRD) Non-Af BUN/Creatinine Ratio Glucose Calcium Cancelled b-Hydroxybutyric mmol/L 9.5 Urine Color Yellow Urine Clarity Clear Urine pH 5.0 Ur Specific Conway 1.030 Urine Protein 100 H Urine Glucose (UA) 1000 H Urine Ketones 150 A* Urine Occult Blood 150 H Urine Nitrite Negative Urine Bilirubin Negative Urine Urobilinogen Normal Ur Leukocyte Esterase Negative Urine RBC 0-5 SEEN Urine WBC 0 SEEN Ur Squamous Epith Cells 5-10 SEEN Urine Bacteria 1+ Fine Granular Casts 0-5 SEEN Urine Mucus 0 SEEN POC Glucose 341 H ABG Data ABG results: ABG 09/26/24 09:57 Specimen Type BETHANY Sample Site Not entered VBG pH 7.06 L* VBG pO2 157 H VBG HCO3 5 L VBG Total CO2 6 L VBG O2 Sat (Calc) 99 H VBG Base Excess -25 L POC Mix VBG pCO2 Pt Tmp 19.2 L O2 Delivery Device Room Air Crit Call To/Read Back Yes Blood Gas Notified Whom everardo Blood Gas Notified Time 09:59:55 Radiography Diagnostic Testing: Clinical Impression(s) from Imaging Studies Chest X-Ray 09/26/24 10:20 IMPRESSION: No visible acute cardiopulmonary findings Reading Location: [id number] Rhythm Strip Rhythm Strip: Sinus Tach Rate: 112 Ectopy: None EKG Initial EKG: Attestation: I personally reviewed and interpreted this EKG as follows: Interpretation: No Acute Injury Pattern, Sinus Tachycardia and Non-Specific ST Changes Management Discussion w/another healthcare provider: Hospitalist Critical Care Time Critical Care Time: Yes Critical care time (excluding procedures): 30-74 minutes (32 min), Including time spent:, Discussing w/Patient &/or Family/Behavioral Health Counselor, Discussing w/Consultants, Arranging Admission or Transfer and Performing Direct Patient Care at Bedside Discharge Plan Dx/Rx/DC Orders Clinical Impression: DKA (diabetic ketoacidosis) Disposition Disposition: Acute Care Hospital [facility] Discharge Date/Time: 09/26/24 12:19 What to do if you have Problems For any increased pain, shortness of breath, bleeding, nausea or vomiting, chestpain, or any unexpected problems, contact your Primary Care Provider. Call [facility] ([phone]) or report to the closest Emergency Room. Call 911 if necessary. 09/26/24 1634 <Electronically signed by Aba Murguia MD> Cosigner Signature (if applicable): CC: Dr. Meena Flowers, DO ~ Signed [facility] Work Phone: [phone] 905-573403-21-2025 Consult note Author Dino Hernandez [facility] Note Date/Time September 26, 2024 4:0 8pm [facility] Medical Records Department [address] [place] [address] Consultation - Tsa Screener 09/26/24 1602 MR#: [id number] Acct: [id number] Name: BRETT BOBBY Rep #:[id number] : 1990 33 From: Dino Hernandez MD PCP: Dr. Meena Flowers, Status:ADM IN Location: ICU CVICU20 2-1 HPI Consult Data Date of Consult: 09/26/24 HPI Narrative HPI Narrative: BRETT BOBBY, is a 33yo DM2 with last A1C estimated to be 9 per patient on 24u BID long acting and 10u premeal insulin last in hospital for DKA in 2023. Here with DKA again. Denies change in use of insulin or dietary habits. Denies UTI, URI, GI symtptoms. NO recent steroid rx. No documented SLG2i rx. [facility] Medical History Tobacco abuse Stage 3a chronic kidney disease (CKD) Diabetes mellitus type 1, uncontrolled, insulin dependent Home Medications ?Medication ?Instructions ?Recorded ?Last Taken ?Type insulin aspart U-100 100 unit/mL See Protocol subcut T ID PRN 02/02/22 Unknown History (3 mL) subcutaneous pen (Novolog Hyperglycemia FlexPen U-100 Insulin aspart) insulin glargine-yfgn 100 unit/mL 30 unit (0.3 mL) sub cut BID 04/05/24 Unknown Rx (3 mL) subcutaneous pen diabete #0 mL Allergy/AdvReac Type Severity Reaction Status Date / Time bee venom protein (honey bee) Allergy Anaphylaxis Verified 09/26/24 10:07 Family History Grandmother Diabetes Hypertension Heart disease Grandfather Diabetes Colon cancer Surgical History Hx of tonsillectomy History of partial hysterectomy Social History household members: children current occupational exposures/hazards: No Smoking Status: Light Smoker (<10/day) alcohol intake: current alcohol intake frequency: holidays/special occasions only substance use type: does not use Objective Data Objective Data Vital Signs: Vital Signs Last response 3 Temperature 36.7 C 09/26/24 12:19 Temperature Source Oral 09/26/24 12:00 Pulse Rate 124 H 09/26/24 12:50 Respiratory Rate 22 H 09/26/24 12:50 Respiratory Effort Normal 09/26/24 10:07 Respiratory Pattern Normal 09/26/24 10:07 Blood Pressure 152/90 H 09/26/24 12:50 Blood Pressure Mean 110 09/26/24 12:50 Blood Pressure Source Monitor 09/26/24 12:50 Blood Pressure Position Semi-Fowlers 09/26/24 12:50 Blood Pressure Location Right Arm 09/26/24 12:50 Pulse Ox 99 09/26/24 12:50 Oxygen Delivery Method Room Air 09/26/24 12:50 I&O: I&O Last 24 Hours 3 09/25/24 09/26/24 09/26/24 23:59 11:59 23:59 Intake Total Balance I&O: Total Stay 3 09/26/24 09:27 thru 09/26/24 15:05 Intake Total Balance Current Meds Ordered / Administered: Current meds ordered / Administered 3 Generic Name Dose Route Start Last Admin Trade Name Donald PRN Reason Stop Dose Admin Acetaminophen 650 mg 09/26/24 12:38 Acetaminophen 325 Mg Tablet PO Q6H PRN PRN Pain 1-10 Or Fever >100.7 Enoxaparin Sodium 40 mg 09/27/24 10:00 Enoxaparin 40 Mg/0.4 Ml Syringe SC DAILY [facility] Dextrose 250 mls @ 999 mls/hr 09/26/24 12:38 Dextrose 10%-Water IV .Q16M PRN Hypoglycemic Protocol Protocol Insulin Human Lispro 100 unit/ 100 mls @ 6.849 mls/hr 09/26/24 12:38 Sodium Chloride CONT INF .[id number] [facility] Protocol Dextrose/Sodium Chloride 1,000 mls @ 150 mls/hr 09/26/24 15:15 09/26/24 15:19 IV 150 mls/hr .Q6H40M [facility] Administration Ceftriaxone Sodium 1 gm in 50 mls @ 100 mls/hr 09/26/24 15:55 Rocephin IV Q24 [facility] Insulin Glargine 24 unit 09/26/24 15:27 Insulin Glargine-Yfgn 100 Unit/Ml Pen SC DAILY [facility] Ondansetron HCl 4 mg 09/26/24 12:38 Ondansetron 4 Mg/2 Ml Vial IV Q8H PRN PRN NAUSEA/VOMITING Oxycodone HCl 2.5 - 5 mg 09/26/24 12:38 Oxycodone 5 Mg Tablet PO Q4H PRN PRN Pain Score 4-10 Sodium Chloride 10 - 40 ml 09/26/24 12:44 0.9% Saline Lock 10 Ml Syringe IV UD PRN SALINE FLUSH Physical Exam Const alert, oriented x3 and no apparent distress General Appearance: cooperative, well developed and ill appearing HEENT normocephalic and head/scalp atraumatic HEENT Narrative: dry membranes Eyes PERRL, EOMs intact bilaterally, conjunctivae normal and no scleral icterus Neck full ROM, no lymphadenopathy, supple and no JVD Chest inspection of chest normal Resp Resp Narrative: no kussmaul breathing Effort and Inspection: able to speak in complete sentences Auscultation: clear to auscultation bilaterally Cardio regular rate and regular rhythm GI normal to inspection, nondistended, normoactive bowel sounds, soft to palpation and non-tender Auscultation: normoactive bowel sounds no CVA tenderness Extremity no clubbing, cyanosis or edema Neuro oriented x3, CN's II-XII intact bilaterally, moves all extremities and no focal motor deficits Psych cooperative and affect normal Lab / Micro Data Attestation: I reviewed the patient's lab results. 09/26/24 09:56 09/26/24 09:56 Labs: Laboratory Results - last 24 hr 09/26/24 09:56: WBC 14.5 H, RBC 4.81, Hgb 14.2, Hct 45.9, MCV 95.4, MCH 29.5, MCHC 30.9 L, RDW Std Deviation 57.2 H, RDW Coeff of Bret 16.1 H, Plt Count 464 H, MPV 9.5, Immature Gran % (Auto) 0.500, Neut % (Auto) 68.9, Lymph % (Auto) 13.3 L, Cidra % (Auto) 4.4, Eos % (Auto) 12.0 H, Baso % (Auto) 0.9, Absolute Neuts (auto) 10.0 H, Absolute Lymphs (auto) 1.92, Nucleated RBC % 0, Platelet EstimateSLT INC, Sodium 134 09/26/24 09:56: Sodium Cancelled, Potassium 4.7 09/26/24 09:56: Potassium Cancelled, Chloride 94 L 09/26/24 09:56: Chloride Cancelled, Carbon Dioxide 5.7 L* 09/26/24 09:56: Carbon Dioxide Cancelled, Anion Gap 35 H 09/26/24 09:56: Anion Gap Cancelled, BUN 10 09/26/24 09:56: BUN Cancelled, Creatinine 0.84 09/26/24 09:56: Creatinine Cancelled, Estim Creat Clear Calc 83.54 09/26/24 09:56: Estim Creat Clear Calc Cancelled, Est GFR (MDRD) Non-Af 93 09/26/24 09:56: Est GFR (MDRD) Non-Af Cancelled, BUN/Creatinine Ratio 12.0 09/26/24 09:56: BUN/Creatinine Ratio Cancelled, Glucose 339 H 09/26/24 09:56: Glucose Cancelled, Calcium 9.3 09/26/24 09:56: Calcium Cancelled, b-Hydroxybutyric mmol/L 9.5 09/26/24 09:57: POC Glucose 341 H 09/26/24 10:15: Urine Color Yellow, Urine Clarity Clear, Urine pH 5.0, Ur Specific Conway 1.030, Urine Protein 100 H, Urine Glucose (UA) 1000 H, Urine Ketones 150 A*, Urine Occult Blood 150 H, Urine Nitrite Negative, Urine Bilirubin Negative, Urine Urobilinogen Normal, Ur Leukocyte Esterase Negative, Urine RBC 0-5 SEEN, Urine WBC 0 SEEN, Ur Squamous Epith Cells 5-10 SEEN, Urine Bacteria 1+, Fine Granular Casts 0-5 SEEN, Urine Mucus 0 SEEN 09/26/24 12:18: POC Glucose 420 H 09/26/24 13:18: POC Glucose 361 H 09/26/24 13:31: Sodium Cancelled, Potassium Cancelled, Chloride Cancelled, Carbon Dioxide Cancelled, Anion Gap Cancelled, BUN Cancelled, Creatinine Cancelled, Estim Creat Clear Calc Cancelled, Est GFR (MDRD) Non-Af Cancelled, BUN/Creatinine Ratio Cancelled, Glucose Cancelled, Calcium Cancelled 09/26/24 14:06: POC Glucose 267 H ABG Data ABG results: ABG 09/26/24 09:57 Specimen Type BETHANY Sample Site Not entered VBG pH 7.06 L* VBG pO2 157 H VBG HCO3 5 L VBG Total CO2 6 L VBG O2 Sat (Calc) 99 H VBG Base Excess -25 L POC Mix VBG pCO2 Pt Tmp 19.2 L O2 Delivery Device Room Air Crit Call To/Read Back Yes Blood Gas Notified Whom everardo Blood Gas Notified Time 09:59:55 Rhythm Strip Rhythm Strip: Sinus Tach Rate: 112 Ectopy: None Imaging Radiology Impression Chest X-Ray 09/26/24 10:20 IMPRESSION: No visible acute cardiopulmonary findings Reading Location: [facility] Assessment and Plan . Assessment and plan: ICU Problem List: DKA Hyperglycemia and diabetes Anion gap metabolic acidosis Non adherence to medical therapy Plan: load 24u glargine now simultaneous to insulin drip titrate up D5 to 250cc/hr if fingerstick drops below 200 while on insulin drip q4h BMP elyte replacement blood cx and UA c reflex to Cx given WBC elevation and SIRS, but may be leukamoid in repsonse to hyperglycemia Dino Hernandez MD [facility] Critical Care Time: 60 min The entirety of this encounter was done via Telemedicine 09/26/24 6533 <Electronically signed by Dino Hernandez MD> Cosigner Signature (if applicable): CC: Dr. Meena Flowers DO~ Signed [facility] Work Phone: 1(483) 157-195703-21-2025 History and physical note Author [facility] Note Date/Time September 26, 2024 3:5 7pm [facility] Medical Records Department [address] [place] [id number] History & Physical Exam 09/26/24 1049 MR#: [id number] Acct: [id number] Name: BRETT BOBBY Rep #:[id number] : 1990 33 From: Maggie Reed MD PCP: Dr. Meena Flowers DO Status:ADM IN Location: ICU CVICU20 2-1 HPI - General General Date of Admission: 09/26/24 Date of Service: 09/26/24 HPI Narrative BRETT BOBBY, is a 33 F with a PMH of type 1 diabetes mellitus who presents viathe ED on 09/26/2024 with a complaint of elevated blood sugars. She woke up at ~ 3:30am on the day of admission with vomiting; she then fell short of breath and had not been able to keep anything down orally. She felt like she was in DKA. She denied any fever, chills, cough, chest pain, palpitations, dizziness or any urinary symptoms. She said she had a recurrent Bartholin cyst recently which drained spontaneously. She also denies any urinary symptoms. Vitals in the ED were BP of 116/78, WA of 121, RR of 16 and temp of 98F. She wassaturating at 98% on room air. CBC was pending as well as CMP. VBG showed pH ob 7.06, pO2 of 157 and bicarb of 5. Urine tox showed glucosa of 1000mg/dl and negative nitrites. she had 1+ bactereia in her urine. POC glucose was 341. She is being admitted to be managed for DKA and probable UTI [facility] Medical History Tobacco abuse Stage 3a chronic kidney disease (CKD) Diabetes mellitus type 1, uncontrolled, insulin dependent Home Medications ?Medication ?Instructions ?Recorded ?Last Taken ?Type insulin aspart U-100 100 unit/mL See Protocol subcut T ID PRN 02/02/22 Unknown History (3 mL) subcutaneous pen (Novolog Hyperglycemia FlexPen U-100 Insulin aspart) insulin glargine-yfgn 100 unit/mL 30 unit (0.3 mL) sub cut BID 04/05/24 Unknown Rx (3 mL) subcutaneous pen diabete #0 mL Allergy/AdvReac Type Severity Reaction Status Date / Time bee venom protein (honey bee) Allergy Anaphylaxis Verified 09/26/24 10:07 Family History Grandmother Diabetes Hypertension Heart disease Grandfather Diabetes Colon cancer Surgical History Hx of tonsillectomy History of partial hysterectomy Social History household members: children current occupational exposures/hazards: No Smoking Status: Light Smoker (<10/day) alcohol intake: current alcohol intake frequency: holidays/special occasions only substance use type: does not use ROS Constitutional Constitutional: Reports anorexia, fatigue and malaise; Denies chills, fever(s) or weakness Eyes Eyes: Denies change in vision ENT HEENT: Denies dysphagia, headache(s), hearing loss or sore throat Cardiovascular Cardiovascular: Denies chest pain, edema, orthopnea, palpitations, paroxysmal nocturnal dyspnea or syncope Respiratory/Chest Respiratory/Chest: Denies cough, hemoptysis, shortness of breath at rest or shortness of breath with exertion Gastrointestinal Gastrointestinal: Denies constipation Genitourinary Genitourinary: Denies dysuria or nocturia Musculoskeletal Musculoskeletal: Denies back pain, joint pain or muscle weakness Neurologic Neurologic: Denies confusion, dizziness, focal weakness or headache(s) Psychiatric Psychiatric: Denies anxiety or depression Vital Signs Vital Signs Vital Signs: 09/26/24 09:28 09/26/24 09:29 09/26/24 10:07 Temperature 96.1 F L 98.0 F Temperature Source Temporal Oral Pulse Rate 130 H 121 H Respiratory Rate 20 H 16 Respiratory Effort Normal Respiratory Pattern Normal Blood Pressure 132/91 H 116/78 Blood Pressure Mean 104 90 Pulse Ox 98 98 Oxygen Delivery Method Room Air Room Air Weight Weight: 151 lb Body Mass Index (BMI) 28.5 Physical Exam Const alert, oriented x3 and no apparent distress General Appearance: cooperative HEENT normocephalic, head/scalp atraumatic and moist oral mucous membranes Mouth: dry mucous membranes Eyes PERRL and EOMs intact bilaterally Neck no lymphadenopathy and supple Lymph Lymphatic: no lymphadenopathy noted and no lymphedema noted Resp normal respiratory effort, normal air movement and clear to auscultation bilaterally Cardio regular rhythm, S1 normal heart sound, S2 normal heart sound and no murmurs Cardio Narrative: tachycardic GI normal to inspection, nondistended, normoactive bowel sounds, soft to palpation,non-tender and non-distended Extremity normal capillary refill, no clubbing, cyanosis or edema and no calf tenderness General Extremity: no tenderness to palpation of joints or extremities Skin General Skin Exam: no breakdown Neuro CN's II-XII intact bilaterally, no focal motor deficits and no sensory deficits noted Coordination / Balance: tlplai-[id number] test normal Motor Exam: general weakness Psych thought process normal and cooperative Appearance: appropriate Results Lab / Micro Data 09/26/24 09:56 09/26/24 09:56 Labs: Laboratory Results - last 24 hr 09/26/24 09:56: Sodium Cancelled, Potassium Cancelled, Chloride Cancelled, Carbon Dioxide Cancelled, Anion Gap Cancelled, BUN Cancelled, Creatinine Cancelled, Estim Creat Clear Calc Cancelled, Est GFR (MDRD) Non-Af Cancelled, BUN/Creatinine Ratio Cancelled, Glucose Cancelled, Calcium Cancelled 09/26/24 09:57: POC Glucose 341 H 09/26/24 10:15: Urine Color Yellow, Urine Clarity Clear, Urine pH 5.0, Ur Specific Conway 1.030, Urine Protein 100 H, Urine Glucose (UA) 1000 H, Urine Ketones 150 A*, Urine Occult Blood 150 H, Urine Nitrite Negative, Urine Bilirubin Negative, Urine Urobilinogen Normal, Ur Leukocyte Esterase Negative, Urine RBC 0-5 SEEN, Urine WBC 0 SEEN, Ur Squamous Epith Cells 5-10 SEEN, Urine Bacteria 1+, Fine Granular Casts 0-5 SEEN, Urine Mucus 0 SEEN ABG Data ABG results: ABG 09/26/24 09:57 Specimen Type BETHANY Sample Site Not entered VBG pH 7.06 L* VBG pO2 157 H VBG HCO3 5 L VBG Total CO2 6 L VBG O2 Sat (Calc) 99 H VBG Base Excess -25 L POC Mix VBG pCO2 Pt Tmp 19.2 L O2 Delivery Device Room Air Crit Call To/Read Back Yes Blood Gas Notified Whom everardo Blood Gas Notified Time 09:59:55 Rhythm Strip Rhythm Strip: Sinus Tach Rate: 112 Ectopy: None Assessment & Plan Assessment/Plan (1) DKA (diabetic ketoacidosis): PLAN: Plan #Acute DKA * admit to ICU * admitted with a complaint of nausea and vomiting an feeling like she was going into DKA * CBC and BMP pending * VBG showed bicarb of 5 and pH of 7.06. * start on insulin drip per DKA protocol * BMP every 4 hourly. Consult critical care. * Hold home dose of Lantus. * hydrate aggressively with IVF also * once blood sugar is <250 and anion gap has closed x 2, will place back on her home dose of Lantus and placed on a diet. * Keep n.p.o. for now. * #Recent Bartholin cyst: * Abscess this is drained spontaneously. * stable. #Probable UTI * Urinalysis shows 1+ bacteria. In light of her DKA with no clear precipitant, we will go ahead and treat her for UTI with IV ceftriaxone. Urine cultures ordered. * DVT prophylaxis: lovenox Charges/Coding Visit Charges Inpatient E&M: 68132 Init Hosp L3 09/26/24 6810 <Electronically signed by Maggie Reed MD> Cosigner Signature (if applicable): CC: Dr. Meena Flowers DO; Dr. Maggie Reed MD~ Signed [facility] Work Phone: 1(729) 863-512103-21-2025 Discharge summary [facility] Medical Records Department [address] [place] [address] Emergency Department Summary 09/26/24 MR#: [id number] Acct: [id number] Name: BRETT BOBBY Rep #:[id number] : 1990 33 From: Aba Murguia MD PCP: Dr. Meena Flowers, DO Status:ADM IN Location: ICU CVICU20 2-1 HPI History of Present Illness Chief Complaint: Hyperglycemia Informant: patient Narrative Narrative: 33-year-old type I diabetic who injects around insulin and woke up at about 3:30AM vomiting then feeling short of breath and feels like she may be in DKA. Has not used insulin this morning since she has not been able to eat anything. She states she seemed to be fine last night when she went to bed and has been using her insulin like normal. She states several days ago she had a recurrent Bartholin cyst/abscess that she was able to get to drain on her own and now she states it is completely resolved, but she has had no other symptoms of an illness recently. She states her Bartholin cyst/abscess is not sore anymore andis back to normal and feels fine. [facility] Medical History Tobacco abuse Stage 3a chronic kidney disease (CKD) Diabetes mellitus type 1, uncontrolled, insulin dependent Home Medications ?Medication ?Instructions ?Recorded ?Last Taken ?Type insulin aspart U-100 100 unit/mL See Protocol subcut T ID PRN 02/02/22 Unknown History (3 mL) subcutaneous pen (Novolog Hyperglycemia FlexPen U-100 Insulin aspart) insulin glargine-yfgn 100 unit/mL 30 unit (0.3 mL) sub cut BID 04/05/24 Unknown Rx (3 mL) subcutaneous pen diabete #0 mL Allergy/AdvReac Type Severity Reaction Status Date / Time bee venom protein (honey bee) Allergy Anaphylaxis Verified 09/26/24 10:07 Family History Grandmother Diabetes Hypertension Heart disease Grandfather Diabetes Colon cancer Surgical History Hx of tonsillectomy History of partial hysterectomy Social History household members: children current occupational exposures/hazards: No Smoking Status: Light Smoker (<10/day) alcohol intake: current alcohol intake frequency: holidays/special occasions only substance use type: does not use ROS ROS ED Constitutional Constitutional ED: Reports fatigue; Denies chills or fever(s) Eyes Eyes: Denies change in vision or diplopia ENT ENT ED: Denies rhinorrhea or sore throat Cardiovascular Cardiovascular: Reports racing heartbeat; Denies chest pain Respiratory/Chest Respiratory/Chest: Reports dyspnea; Denies cough Gastrointestinal Gastrointestinal: Reports nausea and vomiting; Denies abdominal pain or diarrhea Genitourinary Genitourinary ED: Denies dysuria or hematuria Musculoskeletal Musculoskeletal: Denies back pain or neck pain Integumentary Denies abscess or rash Neurologic Neurologic: Denies headache(s), paresthesias or weakness Psychiatric Psychiatric: Denies anxiety or suicidal thoughts EXAM Physical Exam Const Vital Signs: 09/26/24 09:28 09/26/24 09:29 09/26/24 10:07 Temperature 96.1 F L 98.0 F Temperature Source Temporal Oral Pulse Rate 130 H 121 H Respiratory Rate 20 H 16 Respiratory Effort Normal Respiratory Pattern Normal Blood Pressure 132/91 H 116/78 Blood Pressure Mean 104 90 Pulse Ox 98 98 Oxygen Delivery Method Room Air Room Air Positive well nourished and well developed General Appearance ED: well developed and NAD HEENT Reports moist mucous membranes normocephalic and atraumatic Eyes PERRL and EOMs intact bilaterally Neck full ROM and supple Resp normal respiratory effort and clear to auscultation bilaterally Resp Narrative: Tachypneic without distress Cardio regular rate, regular rhythm and no murmurs Rate: tachycardic GI non-tender and non-distended Auscultation: normoactive bowel sounds Palpation: soft Back/Spine no CVA tenderness General Back: other FROM Extremity normal to inspection General Extremety ED: Negative for edema, pulses abnormal or tenderness General Extremity: Negative for edema or pulses abnormal Neuro oriented x3, CN's II-XII intact bilaterally and no sensory deficits noted Sensorium / Orientation: awake and alert Motor Exam: strength 5/5 throughout Psych mental status grossly normal Skin no rashes or lesions noted and no wounds MDM MDM MDM Narrative Medical decision making narrative: Started with given the patient liter of IV fluids along with Zofran until we were able to see her potassium level. Her EKG shows sinus tachycardia, I do notsee any obvious U waves, nor sign of an injury. Initial blood sugar 341. VBG shows a pH of 7.055, and a pCO2 of 19, all consistent with acute metabolic acidosis, which in his case likely is DKA. The next test is her urine which shows ketones but otherwise negative for infection, her 1 view chest x-ray is normal showing no pneumonia on my interpretation. I took a while for her chemistries trickled back for unknown reasons, but eventually will start her on an insulin drip and handed her over to hospitalist service for ICU admission. Lab Data Attestation: I reviewed the patient's lab results. Labs: Laboratory Results - last 24 hr 09/26/24 09/26/24 09/26/24 09:56 09:56 09:56 WBC 14.5 H RBC 4.81 Hgb 14.2 Hct 45.9 MCV 95.4 MCH 29.5 MCHC 30.9 L RDW Std Deviation 57.2 H RDW Coeff of Bret 16.1 H Plt Count 464 H MPV 9.5 Immature Gran % (Auto) 0.500 Neut % (Auto) 68.9 Lymph % (Auto) 13.3 L Cidra % (Auto) 4.4 Eos % (Auto) 12.0 H Baso % (Auto) 0.9 Absolute Neuts (auto) 10.0 H Absolute Lymphs (auto) 1.92 Nucleated RBC % 0 Platelet Estimate SLT INC Sodium 134 Cancelled Potassium 4.7 Cancelled Chloride 94 L Carbon Dioxide Anion Gap BUN Creatinine Estim Creat Clear Calc Est GFR (MDRD) Non-Af BUN/Creatinine Ratio Glucose Calcium b-Hydroxybutyric mmol/L Urine Color Urine Clarity Urine pH Ur Specific Conway Urine Protein Urine Glucose (UA) Urine Ketones Urine Occult Blood Urine Nitrite Urine Bilirubin Urine Urobilinogen Ur Leukocyte Esterase Urine RBC Urine WBC Ur Squamous Epith Cells Urine Bacteria Fine Granular Casts Urine Mucus POC Glucose 09/26/24 09/26/24 09/26/24 09:56 09:56 09:56 WBC RBC Hgb Hct MCV MCH MCHC RDW Std Deviation RDW Coeff of Bret Plt Count MPV Immature Gran % (Auto) Neut % (Auto) Lymph % (Auto) Cidra % (Auto) Eos % (Auto) Baso % (Auto) Absolute Neuts (auto) Absolute Lymphs (auto) Nucleated RBC % Platelet Estimate Sodium Potassium Chloride Cancelled Carbon Dioxide 5.7 L* Cancelled Anion Gap 35 H Cancelled BUN 10 Creatinine Estim Creat Clear Calc Est GFR (MDRD) Non-Af BUN/Creatinine Ratio Glucose Calcium b-Hydroxybutyric mmol/L Urine Color Urine Clarity Urine pH Ur Specific Conway Urine Protein Urine Glucose (UA) Urine Ketones Urine Occult Blood Urine Nitrite Urine Bilirubin Urine Urobilinogen Ur Leukocyte Esterase Urine RBC Urine WBC Ur Squamous Epith Cells Urine Bacteria Fine Granular Casts Urine Mucus POC Glucose 09/26/24 09/26/24 09/26/24 09:56 09:56 09:56 WBC RBC Hgb Hct MCV MCH MCHC RDW Std Deviation RDW Coeff of Bret Plt Count MPV Immature Gran % (Auto) Neut % (Auto) Lymph % (Auto) Cidra % (Auto) Eos % (Auto) Baso % (Auto) Absolute Neuts (auto) Absolute Lymphs (auto) Nucleated RBC % Platelet Estimate Sodium Potassium Chloride Carbon Dioxide Anion Gap BUN Cancelled Creatinine 0.84 Cancelled Estim Creat Clear Calc 83.54 Cancelled Est GFR (MDRD) Non-Af 93 BUN/Creatinine Ratio Glucose Calcium b-Hydroxybutyric mmol/L Urine Color Urine Clarity Urine pH Ur Specific Conway Urine Protein Urine Glucose (UA) Urine Ketones Urine Occult Blood Urine Nitrite Urine Bilirubin Urine Urobilinogen Ur Leukocyte Esterase Urine RBC Urine WBC Ur Squamous Epith Cells Urine Bacteria Fine Granular Casts Urine Mucus POC Glucose 09/26/24 09/26/24 09/26/24 09:56 09:56 09:56 WBC RBC Hgb Hct MCV MCH MCHC RDW Std Deviation RDW Coeff of Bret Plt Count MPV Immature Gran % (Auto) Neut % (Auto) Lymph % (Auto) Cidra % (Auto) Eos % (Auto) Baso % (Auto) Absolute Neuts (auto) Absolute Lymphs (auto) Nucleated RBC % Platelet Estimate Sodium Potassium Chloride Carbon Dioxide Anion Gap BUN Creatinine Estim Creat Clear Calc Est GFR (MDRD) Non-Af Cancelled BUN/Creatinine Ratio 12.0 Cancelled Glucose 339 H Cancelled Calcium 9.3 b-Hydroxybutyric mmol/L Urine Color Urine Clarity Urine pH Ur Specific Conway Urine Protein Urine Glucose (UA) Urine Ketones Urine Occult Blood Urine Nitrite Urine Bilirubin Urine Urobilinogen Ur Leukocyte Esterase Urine RBC Urine WBC Ur Squamous Epith Cells Urine Bacteria Fine Granular Casts Urine Mucus POC Glucose 09/26/24 09/26/24 09/26/24 09:56 09:57 10:15 WBC RBC Hgb Hct MCV MCH MCHC RDW Std Deviation RDW Coeff of Bret Plt Count MPV Immature Gran % (Auto) Neut % (Auto) Lymph % (Auto) Cidra % (Auto) Eos % (Auto) Baso % (Auto) Absolute Neuts (auto) Absolute Lymphs (auto) Nucleated RBC % Platelet Estimate Sodium Potassium Chloride Carbon Dioxide Anion Gap BUN Creatinine Estim Creat Clear Calc Est GFR (MDRD) Non-Af BUN/Creatinine Ratio Glucose Calcium Cancelled b-Hydroxybutyric mmol/L 9.5 Urine Color Yellow Urine Clarity Clear Urine pH 5.0 Ur Specific Conway 1.030 Urine Protein 100 H Urine Glucose (UA) 1000 H Urine Ketones 150 A* Urine Occult Blood 150 H Urine Nitrite Negative Urine Bilirubin Negative Urine Urobilinogen Normal Ur Leukocyte Esterase Negative Urine RBC 0-5 SEEN Urine WBC 0 SEEN Ur Squamous Epith Cells 5-10 SEEN Urine Bacteria 1+ Fine Granular Casts 0-5 SEEN Urine Mucus 0 SEEN POC Glucose 341 H ABG Data ABG results: ABG 09/26/24 09:57 Specimen Type BETHANY Sample Site Not entered VBG pH 7.06 L* VBG pO2 157 H VBG HCO3 5 L VBG Total CO2 6 L VBG O2 Sat (Calc) 99 H VBG Base Excess -25 L POC Mix VBG pCO2 Pt Tmp 19.2 L O2 Delivery Device Room Air Crit Call To/Read Back Yes Blood Gas Notified Whom everardo Blood Gas Notified Time 09:59:55 Radiography Diagnostic Testing: Clinical Impression(s) from Imaging Studies Chest X-Ray 09/26/24 10:20 IMPRESSION: No visible acute cardiopulmonary findings Reading Location: [facility] Rhythm Strip Rhythm Strip: Sinus Tach Rate: 112 Ectopy: None EKG Initial EKG: Attestation: I personally reviewed and interpreted this EKG as follows: Interpretation: No Acute Injury Pattern, Sinus Tachycardia and Non-Specific ST Changes Management Discussion w/another healthcare provider: Hospitalist Critical Care Time Critical Care Time: Yes Critical care time (excluding procedures): 30-74 minutes (32 min), Including time spent:, Discussing w/Patient &/or Family/Behavioral Health Counselor, Discussing w/Consultants, Arranging Admission or Transfer and Performing Direct Patient Care at Bedside Discharge Plan Dx/Rx/DC Orders Clinical Impression: DKA (diabetic ketoacidosis) Disposition Disposition: Acute Care Hospital [facility] Discharge Date/Time: 09/26/24 12:19 What to do if you have Problems For any increased pain, shortness of breath, bleeding, nausea or vomiting, chestpain, or any unexpected problems, contact your Primary Care Provider. Call [facility] ([phone]) or report tothe closest Emergency Room. Call 911 if necessary. 09/26/24 1634 Cosigner Signature (if applicable): CC: Dr. Meena Flowers, DO ~ Signed [facility]03-21-2025 Consult note [facility] Medical Records Department [address] [place] [address] Consultation - Tsa Screener 09/26/24 1602 MR#: [id number] Acct: [id number] Name: BRETT BOBBY Rep #:[id number] : 1990 33 From: Dino Hernandez MD PCP: Dr. Meena Flowers, Status:ADM IN Location: ICU CVICU20 2-1 HPI Consult Data Date of Consult: 09/26/24 HPI Narrative HPI Narrative: BRETT BOBBY, is a 33yo DM2 with last A1C estimated to be 9 per patient on 24u BID long acting and10u premeal insulin last in hospital for DKA in 2023. Here with DKA again. Denies changein use of insulin or dietary habits. Denies UTI, URI, GI symtptoms. NO recent steroid rx. No documented SLG2i rx. [facility] Medical History Tobacco abuse Stage 3a chronic kidney disease (CKD) Diabetes mellitus type 1, uncontrolled, insulin dependent Home Medications ?Medication ?Instructions ?Recorded ?Last Taken ?Type insulin aspart U-100 100 unit/mL See Protocol subcut T ID PRN 02/02/22 Unknown History (3 mL) subcutaneous pen (Novolog Hyperglycemia FlexPen U-100 Insulin aspart) insulin glargine-yfgn 100 unit/mL 30 unit (0.3 mL) sub cut BID 04/05/24 Unknown Rx (3 mL) subcutaneous pen diabete #0 mL Allergy/AdvReac Type Severity Reaction Status Date / Time bee venom protein (honey bee) Allergy Anaphylaxis Verified 09/26/24 10:07 Family History Grandmother Diabetes Hypertension Heart disease Grandfather Diabetes Colon cancer Surgical History Hx of tonsillectomy History of partial hysterectomy Social History household members: children current occupational exposures/hazards: No Smoking Status: Light Smoker (<10/day) alcohol intake: current alcohol intake frequency: holidays/special occasions only substance use type: does not use Objective Data Objective Data Vital Signs: Vital Signs Last response 3 Temperature 36.7 C 09/26/24 12:19 Temperature Source Oral 09/26/24 12:00 Pulse Rate 124 H 09/26/24 12:50 Respiratory Rate 22 H 09/26/24 12:50 Respiratory Effort Normal 09/26/24 10:07 Respiratory Pattern Normal 09/26/24 10:07 Blood Pressure 152/90 H 09/26/24 12:50 Blood Pressure Mean 110 09/26/24 12:50 Blood Pressure Source Monitor 09/26/24 12:50 Blood Pressure Position Semi-Fowlers 09/26/24 12:50 Blood Pressure Location Right Arm 09/26/24 12:50 Pulse Ox 99 09/26/24 12:50 Oxygen Delivery Method Room Air 09/26/24 12:50 I&O: I&O Last 24 Hours 3 09/25/24 09/26/24 09/26/24 23:59 11:59 23:59 Intake Total Balance I&O: Total Stay 3 09/26/24 09:27 thru 09/26/24 15:05 Intake Total 2012.35 Balance 2012.35 Current Meds Ordered / Administered: Current meds ordered / Administered 3 Generic Name Dose Route Start Last Admin Trade Name Donald PRN Reason Stop Dose Admin Acetaminophen 650 mg 09/26/24 12:38 Acetaminophen 325 Mg Tablet PO Q6H PRN PRN Pain 1-10 Or Fever >100.7 Enoxaparin Sodium 40 mg 09/27/24 10:00 Enoxaparin 40 Mg/0.4 Ml Syringe SC DAILY JAC Dextrose 250 mls @ 999 mls/hr 09/26/24 12:38 Dextrose 10%-Water IV .Q16M PRN Hypoglycemic Protocol Protocol Insulin Human Lispro 100 unit/ 100 mls @ 6.849 mls/hr 09/26/24 12:38 Sodium Chloride CONT INF .[id number] JAC Protocol Dextrose/Sodium Chloride 1,000 mls @ 150 mls/hr 09/26/24 15:15 09/26/24 15:19 IV 150 mls/hr .Q6H40M JAC Administration Ceftriaxone Sodium 1 gm in 50 mls @ 100 mls/hr 09/26/24 15:55 Rocephin IV Q24 [facility] Insulin Glargine 24 unit 09/26/24 15:27 Insulin Glargine-Yfgn 100 Unit/Ml Pen SC DAILY JAC Ondansetron HCl 4 mg 09/26/24 12:38 Ondansetron 4 Mg/2 Ml Vial IV Q8H PRN PRN NAUSEA/VOMITING Oxycodone HCl 2.5 - 5 mg 09/26/24 12:38 Oxycodone 5 Mg Tablet PO Q4H PRN PRN Pain Score 4-10 Sodium Chloride 10 - 40 ml 09/26/24 12:44 0.9% Saline Lock 10 Ml Syringe IV UD PRN SALINE FLUSH Physical Exam Const alert, oriented x3 and no apparent distress General Appearance: cooperative, well developed and ill appearing HEENT normocephalic and head/scalp atraumatic HEENT Narrative: dry membranes Eyes PERRL, EOMs intact bilaterally, conjunctivae normal and no scleral icterus Neck full ROM, no lymphadenopathy, supple and no JVD Chest inspection of chest normal Resp Resp Narrative: no kussmaul breathing Effort and Inspection: able to speak in complete sentences Auscultation: clear to auscultation bilaterally Cardio regular rate and regular rhythm GI normal to inspection, nondistended, normoactive bowel sounds, soft to palpation and non-tender Auscultation: normoactive bowel sounds no CVA tenderness Extremity no clubbing, cyanosis or edema Neuro oriented x3, CN's II-XII intact bilaterally, moves all extremities and no focal motor deficits Psych cooperative and affect normal Lab / Micro Data Attestation: I reviewed the patient's lab results. 09/26/24 09:56 09/26/24 09:56 Labs: Laboratory Results - last 24 hr 09/26/24 09:56: WBC 14.5 H, RBC 4.81, Hgb 14.2, Hct 45.9, MCV 95.4, MCH 29.5, MCHC 30.9 L, RDW Std Deviation 57.2 H, RDW Coeff of Bret 16.1 H, Plt Count 464 H, MPV 9.5, Immature Gran % (Auto) 0.500, Neut % (Auto) 68.9, Lymph % (Auto) 13.3 L, Cidra % (Auto) 4.4, Eos % (Auto) 12.0 H, Baso % (Auto) 0.9,Absolute Neuts (auto) 10.0 H, Absolute Lymphs (auto) 1.92, Nucleated RBC % 0, Platelet [employer]SLT INC, Sodium 134 09/26/24 09:56: Sodium Cancelled, Potassium 4.7 09/26/24 09:56: Potassium Cancelled, Chloride 94 L 09/26/24 09:56: Chloride Cancelled, Carbon Dioxide 5.7 L* 09/26/24 09:56: Carbon Dioxide Cancelled, Anion Gap 35 H 09/26/24 09:56: Anion Gap Cancelled, BUN 10 09/26/24 09:56: BUN Cancelled, Creatinine 0.84 09/26/24 09:56: Creatinine Cancelled, Estim Creat Clear Calc 83.54 09/26/24 09:56: Estim Creat Clear Calc Cancelled, Est GFR (MDRD) Non-Af 93 09/26/24 09:56: Est GFR (MDRD) Non-Af Cancelled, BUN/Creatinine Ratio 12.0 09/26/24 09:56: BUN/Creatinine Ratio Cancelled, Glucose 339 H 09/26/24 09:56: Glucose Cancelled, Calcium 9.3 09/26/24 09:56: Calcium Cancelled, b-Hydroxybutyric mmol/L 9.5 09/26/24 09:57: POC Glucose 341 H 09/26/24 10:15: Urine Color Yellow, Urine Clarity Clear, Urine pH 5.0, Ur Specific Conway 1.030, Urine Protein 100 H, Urine Glucose (UA) 1000 H, Urine Ketones 150 A*, Urine Occult Blood 150 H, UrineNitrite Negative, Urine Bilirubin Negative, Urine Urobilinogen Normal, Ur Leukocyte Esterase Negative, Urine RBC 0-5 SEEN, Urine WBC 0 SEEN, Ur Squamous Epith Cells 5-10 SEEN, Urine Bacteria 1+, FineGranular Casts 0-5 SEEN, Urine Mucus 0 SEEN 09/26/24 12:18: POC Glucose 420 H 09/26/24 13:18: POC Glucose 361 H 09/26/24 13:31: Sodium Cancelled, Potassium Cancelled, Chloride Cancelled, Carbon Dioxide Cancelled, Anion Gap Cancelled, BUN Cancelled, Creatinine Cancelled, Estim Creat Clear Calc Cancelled, Est GFR (MDRD) Non-Af Cancelled, BUN/Creatinine Ratio Cancelled, Glucose Cancelled, Calcium Cancelled 09/26/24 14:06: POC Glucose 267 H ABG Data ABG results: ABG 09/26/24 09:57 Specimen Type BETHANY Sample Site Not entered VBG pH 7.06 L* VBG pO2 157 H VBG HCO3 5 L VBG Total CO2 6 L VBG O2 Sat (Calc) 99 H VBG Base Excess -25 L POC Mix VBG pCO2 Pt Tmp 19.2 L O2 Delivery Device Room Air Crit Call To/Read Back Yes Blood Gas Notified Whom everardo Blood Gas Notified Time 09:59:55 Rhythm Strip Rhythm Strip: Sinus Tach Rate: 112 Ectopy: None Imaging Radiology Impression Chest X-Ray 09/26/24 10:20 IMPRESSION: No visible acute cardiopulmonary findings Reading Location: [id number] Assessment and Plan . Assessment and plan: ICU Problem List: DKA Hyperglycemia and diabetes Anion gap metabolic acidosis Non adherence to medical therapy Plan: load 24u glargine now simultaneous to insulin drip titrate up D5 to 250cc/hr if fingerstick drops below 200 while on insulin drip q4h BMP elyte replacement blood cx and UA c reflex to Cx given WBC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 Living Will No May 25, 2 023 5:41pm Power of Manager Document Control No May 25, 2023 5:41pm Advance Directive Response Recorded Date/ Time Advance Directives No November 19 5 5:00pm Living Will No May 25, 2 023 9:32pm Power of Manager Document Control No May 25, 2023 9:32pm Advance Directive Response Recorded Date/ Time Advance Directives No November 19 5 5:00pm Living Will No June 05, 2 023 12:53pm Power of Manager Document Control No June 05, 2023 12:53pm Advance Directive Response Recorded Date/ Time Advance Directives No November 19 5 6:00pm Living Will No September 24, 2023 12:57pm Power of Manager Document Control No September 23 12:57pm Advance Directive Response Recorded Date/ Time Living Will No September 26, 2024 10:07am Do you have a Healthcare Power of Manager Document Control? No September 26, 2024 10:07am Advance Directives No November 19 5 6:00pm Advance Directive Response Recorded Date/ Time Living Will No September 26, 2024 12:20pm Do you have a Healthcare Power of Manager Document Control? No September 26, 2024 12:20pm Advance Directives No November 19 6:00pm Summary Purpose Additional Source Comments Care Teams (unrecognized sec tion and content) Team Status: Active Member Role Status Dates Dr. Meena Flowers DO Primary Care Provider Active Team Status: Inactive Member Role Status Dates Dr. Meena Flowers DO Primary Care Provider Active Start: September 26, 2024 End: September 28, 2024 Dr. Aba Murguia MD Emergency Provider Active Start: September 26, 2024 End: September 28, 2024 Dr. Maggie Reed MD Admit Provider Active St art: September 26, 2024 End: September 28, 2024 Dr. Maggie Reed MD Other Provider Active St art: September 26, 2024 End: September 28, 2024 Dr. Bryce Julien MD Attending Provider Active Start: September 26, 2024 End: September 28, 2024 Team Status: Active Member Role Status Dates Dr. Meena Flowers DO Primary Care Provider Active Start: September 27, 2024 Dr. Aba Murguia MD Emergency Provider Active Start: September 27, 2024 Dr. Maggie Reed MD Admit Provider Active St art: September 27, 2024 Dr. Maggie Reed MD Other Provider Active St art: September 27, 2024 Dr. Bryce Julien MD Attending Provider Active Start: September 27, 2024 Dr. Bryce Julien MD Other Provider Active Start: September 27, 2024 Team Status: Active Member Role Status Dates Dr. Meena Flowers DO Primary Care Provider Active Start: September 28, 2024 Dr. Aba Murguia MD Emergency Provider Active Start: September 28, 2024 Dr. Maggie Reed MD Admit Provider Active St art: September 28, 2024 Dr. Maggie Reed MD Other Provider Active St art: September 28, 2024 Dr. Bryce Julien MD Other Provider Active Start: September 28, 2024 Dr. Dian Galan MD Attending Provider Active Start: September 28, 2024 Team Status: Active Member Role Status Dates No Primary Care Physician Family Provider Active Dr. Meena Flowers DO Primary Care Provider Active Team Status: Inactive Member Role Status Dates Dr. Efrem Lock DO Emergency Provider Active Dr. Meena Flowers DO Primary Care Provider Active Team Status: Active Member Role Status Dates Dr. Meena Flowers DO Primary Care Provider Active Ed Physician Provider Attending Provider Active Team Status: Active Member Role Status Dates Dr. Meena Flowers DO Primary Care Provider Active Dr. Risa Gatica MD Emergency Provider Active Dr. David Miramontes MD Admit Provider, Attending Pro vider Active Team Status: Active Member Role Status Dates Dr. Meena Flowers DO Primary Care Provider Active Dr. Risa Gatica MD Emergency Provider Active Dr. David Miramontes MD Admit Provider, Attending Provider, Other Provider Active Team Status: Active Member Role Status Dates Dr. Meena Flowers DO Primary Care Provider Active Dr. Risa Gatica MD Emergency Provider Active Dr. David Miramontes MD Admit Provider, Other Provide r Active Dr. Douglas Serrano DO Attending Provider, Other Provid er Active Team Status: Inactive Member Role Status Dates Dr. Meena Flowers DO Primary Care Provider Active Dr. Risa Gatica MD Emergency Provider Active Dr. David Miramontes MD Admit Provider, Other Provide r Active Dr. Douglas Serrano DO Attending Provider Active Team Status: Inactive Member Role Status Dates Dr. Efrem Lock DO Attending Provider, Emergency P rovider Active Dr. Meena Flowers DO Primary Care Provider Active Team Status: Inactive Member Role Status Dates Dr. Meena Flowers DO Primary Care Provider Active Dr. Douglas Alvarez DO Emergency Provider Active Team Status: Inactive Member Role Status Dates Dr. Meena Flowers DO Primary Care Provider Active Dr. Douglas Alvarez DO Attending Provider, Emergency P rovider Active Team Status: Inactive Member Role Status Dates Dr. Meena Flowers DO Primary Care Provider Active Dr. Risa Gatica MD Emergency Provider Active Team Status: Active Member Role Status Dates Dr. Meena Flowers DO Primary Care Provider Active Start: September 26, 2024 Dr. Aba Murguia MD Emergency Provider Active Start: September 26, 2024 Dr. Maggie Reed MD Admit Provider Active St art: September 26, 2024 Dr. Maggie Reed MD Attending Provider Active Start: September 26, 2024 Goals (unrecognized section and content) Goals may be documented in a n alternate sectionGoals may be documented in an alternate sectionGoals may be documented in an alternate sectionGoals may be documented in an alternate section INFORMATION SOURCE (unrecogn ized section and content) DATE CREATED AUTHOR 10/08/2024 [facility] FOR RECORDS PERTAINING TO PATIENTS WHO ARE OR HAVE BEEN ENROLLED IN A CHEMICAL DEPENDENCY/SUBSTANCEABUSE PROGRAM, SOME INFORMATION MAY BE OMITTED. This clinical summary was aggregated from multiple sources. Caution should be exercised in using it in the provision of clinical care. This summary normalizes information from multiple sources, and as a consequence, information in this document may materially change the coding, format and clinical context of patient data. In addition, data may be omitted in some cases. CLINICAL DECISIONS SHOULD BE BASED ON THE PRIMARY CLINICAL RECORDS. [facility] [employer] [facility]. provides no warranty or guarantee of the accuracy or completeness of information in this document.
[2025-01-11 20:33] VITALS: BP 120/69; PULSE 96
[2025-01-11 21:28] LABS: Anion Gap 34 (5-15); BUN 7 mg/dL (4-19); BUN/Creat Ratio 8.1 RATIO (10-20); Calcium,Total 9.7 mg/dL (7.6-11.0); Carbon Dioxide 4.3 mmol/L (21.0-32.0); Chloride 96 mmol/L (98-108); Estimated Creatinine Clearance 81.25 ml/min (50-250); Glucose 324 mg/dL (70-99); Potassium 5.1 mmol/L (3.3-5.1)
[2025-01-11 21:40] LABS: BETA-HYDROXYBUTYRATE 10.5 mmol/L (0.0-0.3)
[2025-01-11 21:46] LABS: Mucous, Urine 0 SEEN /hpf (<or=2+); Red Blood Cells-Urine 0 SEEN /hpf (0-5)
[2025-01-11 21:48] LABS: Hematocrit 43.1 % (37-47); Hemoglobin 13.0 g/dL (12.0-15.0); Immature Granulocytes Count 0.060 X10^3/uL (0.0-0.0); Mean Corp Hgb Conc 30.2 g/dL (32-36); Mean Corpuscular Volume 96.9 fL (81-99); Mean Platelet Vol. 10.2 fl (6.2-12.0); NRBC Flagged by Analyzer 0 % (0-5); Platelet Count 365 K/mm3 (150-450); RBC Distribution Width CV 14.6 % (11.6-14.6); RBC Distribution Width SD 52.6 fl (35.1-43.9); Red Blood Count 4.45 M/mm3 (4.2-5.4); White Blood Count 12.2 K/mm3 (4.4-11.0)
--- NOTE | 2025-01-11 21:58 | PCM.HP.STD ---
[facility] - General General Date of Admission: 01/11/25 Date of Service: 01/11/25 Chief Complaint: Nausea and Vomiting with Hyperglycemia. HPI Narrative BRETT CRUZ, is a 34 F with a past medical history of being overweight; with BMI of 28.2 this admission, tobacco abuse, CKD; stage IIIa and DM-1; uncontrolled with Hyperglycemia on insulin glargine 30U sq BID plus insulin aspart 10U TID AC with recent admission here from September 26, 2024 to September 28, 2024 for treatment of DKA who re-presents to [facility] ER complaining of nausea and vomiting with hyperglycemia. Ms. Cruz reports her symptoms began this morning with nausea and heart racing with SOB. She states her symptoms are consistent with her previous bouts of DKA with patient admitting to recent severe increase in life stress after the of her grandmother which she suspects has triggered her DKA. Her blood glucose was reportedly 244 mg/dL before coming in and she states she has been taking her insulin glargine as prescribed but she did not take insulin lispro. She denies associated vomiting, abdominal pain, fever, chills, chest pain, SOB, cough, dysuria, hematuria, headache or rash. In the ER she was noted to have evidence of DKA with Hyperglycemia of 324 mg/dL, elevated beta-hydroxybutyrate of 10.5 mmol/L and an anion gap of 34 in addition to Leukocytosis of 12.2K present on admission suspected to be due to acute stress response with no obvious evidence of infection. She was then admitted to the ICU for ongoing care for a stay that is expected to extend beyond 2 midnights. [facility] Medical History (Updated 01/12/25 @ 02:[address] Andrew Cruz, ) Tobacco abuse Diabetes mellitus type 1, uncontrolled, insulin dependent Stage 3a chronic kidney disease (CKD) Home Medications ?Medication ?Instructions ?Recorded ?Last Taken ?Type insulin aspart U-100 100 unit/mL See Protocol subcut TID PRN 02/02/22 01/11/25 History (3 mL) subcutaneous pen (Novolog Hyperglycemia FlexPen U-100 Insulin aspart) insulin glargine-yfgn 100 unit/mL 24 unit subcut BID diabete 01/11/25 01/11/25 History (3 mL) subcutaneous pen potassium chloride 10 mEq 10 meq PO BID 01/11/25 01/11/25 History capsule,extended release Allergy/AdvReac Type Severity Reaction Status Date / Time bee venom protein (honey bee) Allergy Anaphylaxis Verified 01/11/25 19:59 Family History Grandmother Diabetes Hypertension Heart disease Grandfather Diabetes Colon cancer Surgical History Hx of tonsillectomy History of partial hysterectomy Social History household members: children current occupational exposures/hazards: No Smoking Status: Light Smoker (<10/day) alcohol intake: current alcohol intake frequency: holidays/special occasions only substance use type: does not use ROS ROS Narrative Review of Systems: Constitutional: Patient denies fever or chills. Eyes: Patient denies changes in vision or discharge from eyes. ENT: Patient denies runny nose, sore throat or ear pain. Resp: Patient admits to SOB but she denies cough. CV: Patient admits to palpitations but she denies chest pain or LE edema. GI: Patient admits to nausea but she denies vomiting or abdominal pain as per HPI. : Patient denies dysuria or hematuria. MSK: Patient denies arthralgia or myalgias. Skin: Patient denies rash, abscess, wounds or jaundice. Psych: Patient denies symptoms of uncontrolled depression or anxiety. Neuro: Patient denies headache, paresthesias or focal neurologic deficits. Allergy: Patient denies lip swelling, tongue swelling or urticaria. Hematology: Patient denies easy bleeding or easy bruisability. Endocrinology: Patient admits to polyuria and polydipsia but she denies polyphagia or heat/cold intolerance. 14 point ROS otherwise negative except for positives noted above in HPI. Vital Signs Vital Signs Vital Signs: 01/11/25 19:59 01/11/25 20:33 Temperature 98.0 F Temperature Source Temporal Pulse Rate 129 H 96 Respiratory Rate 18 Blood Pressure 134/96 H 120/69 Blood Pressure Mean 108 86 Pulse Ox 98 Oxygen Delivery Method Room Air Room Air Weight Weight: 149 lb Body Mass Index (BMI) 28.1 Results Medical Records Data Attestation: I reviewed the patient's medical records Lab / Micro Data Attestation: I reviewed the patient's lab results. 01/11/25 21:05 01/11/25 23:00 Labs: Laboratory Results - last 24 hr 01/11/25 20:20: Sodium 134, Potassium 5.1, Chloride 96 L, Carbon Dioxide 4.3 L*, Anion Gap 34 H, BUN 7, Creatinine 0.85, Estim Creat Clear Calc 81.25, Est GFR (MDRD) Non-Af 91, BUN/Creatinine Ratio 8.1 L, Glucose 324 H, Calcium 9.7, b-Hydroxybutyric mmol/L 10.5 H 01/11/25 20:37: POC Glucose 286 H 01/11/25 21:05: WBC 12.2 H, RBC 4.45, Hgb 13.0, Hct 43.1, MCV 96.9, MCH 29.2, MCHC 30.2 L, RDW Std Deviation 52.6 H, RDW Coeff of Bret 14.6, Plt Count 365, MPV 10.2, Immature Gran % (Auto) 0.500, Neut % (Auto) 85.3 H, Lymph % (Auto) 9.4 L, [place] % (Auto) 4.1, Eos % (Auto) 0.0, Baso % (Auto) 0.7, Absolute Neuts (auto) 10.4 H, Absolute Lymphs (auto) 1.14, Nucleated RBC % 0 Imaging [facility] Imaging Services [address], [place] [address] Chest 1 View (Portable) MR#: [id number] Acct: [id number] Name: BRETT CRUZ Rep #: [id number] : 1990 F 34 From: Keith Huff DO PCP: Dr. Meena Flowers DO Status: ADM IN Study: Chest 1 View (Portable) Date of Exam: 01/11/25 Exam# [id number] Ordering Dr: Andrew Cruz DO PROCEDURE: CHEST 1 VIEW (PORTABLE) 01/11/2025 REASON FOR EXAM: Leukocytosis with diabetic ketoacidosis TECHNIQUE: Frontal view of the chest. COMPARISON: Chest radiograph September 26, 2024 FINDINGS: Hardware: EKG lead wires. Heart: Normal size. Lungs: Clear. Bones: No aggressive bone process. Other: RAD/Chest 1 View (Portable) IMPRESSION: No acute process detected. No significant change from prior exam. Reading [facility] CC: Dr. Andrew Cruz, DO; Dr. Meena Flowers DO ~ Process Design Engineer: Signed Assessment & Plan Assessment/Plan (1) Diabetic keto-acidosis: QUALIFIERS: Diabetes mellitus complication detail: without coma Diabetes mellitus type: type 1 Qualified Code(s): E10.10 - Type 1 diabetes mellitus with ketoacidosis without coma (2) Nausea: (3) Shortness of breath: (4) Stress: (5) Palpitations: (6) Diabetes mellitus type 1, uncontrolled, insulin dependent: (7) Overweight (BMI 25.0-29.9): (8) Tobacco abuse: (9) Leukocytosis: QUALIFIERS: Leukocytosis type: unspecified Qualified Code(s): D72.829 - Elevated white blood cell count, unspecified PLAN: Plan 1. DKA with Hyperglycemia of 324 mg/dL, elevated beta-hydroxybutyrate of 10.5 mmol/L and an anion gap of 34 present on admission - Admit to ICU for treatment under the DKA protocol. Check BMP every 4 hours. Replace electrolytes per ICU protocol. Check ABG to establish baseline. Give acetaminophen as needed for [id number] (level 1-5/10) pain or fever. Give morphine IV as needed for severe (level 6-10/10) pain. 2. Nausea, SOB and Palpitations due to #1 - CXR read as nonacute. Give ondansetron IV prn nausea and vomiting. 3. Severely increased life-stress after the recent of her grandmother precipitating #1 & #2 - Give prn low-dose benzodiazepines for breakthrough symptoms. 4. DM-1; uncontrolled with Hyperglycemia on insulin glargine 30U sq BID plus insulin aspart 10U TID AC with recent admission here from September 26, 2024 to September 28, 2024 for treatment of DKA complicating #1 - #3 - Noted with patient to be restarted on her previous home regimen once her DKA resolves. 5. Overweight; with BMI of 28.2 this admission adding to the burden of disease outlined from #1 - #4 - Weight loss will be recommended. Check TSH. 6. Tobacco Abuse adding to the burden of disease outlined from #1 - #5 - Tobacco Cessation will be strongly encouraged with Nicotine patch offered to control cravings. 7. Leukocytosis of 12.2K present on admission suspected to be due to acute stress response attributable to #1 - Check CBC daily to follow trend with negative UA, CXR and no overt signs of infection at this time. 8. CKD; stage IIIa - Stable with serum creatinine of 0.85 mg/dL and eGFR of 91 mL/min this admission. 9. DVT/GI prophylaxis - Enoxaparin 40 mg sq daily plus SCD's. Pantoprazole 40 mg IV daily. Total time: Approximately (but not less than) 75 minutes. Charges/Coding Visit Charges Inpatient E&M: 14878 Init Hosp L3
[2025-01-11 22:00] VITALS: BP 143/82; PULSE 118
[2025-01-11] MEDS: Insulin Lispro 100 UNIT in 0.9% Normal Saline (100mL Bag) 99 ML 6.8 UNIT CONT INF (22:01)
[2025-01-11 22:06] LABS: Color, Urine Yellow (Yellow); Glucose, Dipstick 1000 mg/dl (Normal); Leukocyte Esterase-Dipstick Negative /ul (Negative); Nitrite-Dipstick Negative (Negative); Occult Blood-Urine 250 /ul (Negative); Protein-Dipstick 30 mg/dl (Negative); Specific Gravity, Urine 1.030 (1.002-1.030); Urine Bilirubin Dipstick Negative (Negative)
[2025-01-11 22:07] VITALS: BP 143/82; PULSE 112; RESP 22; TEMP 36.6; O2SAT 98
--- OUTSIDE RECORDS SUMMARY | 2025-01-11 22:16 | XMS RPT_ITS | CCD ---
Author Organization [facility] Care Team Providers Care Program Management Intern Name Role Phone Meena Flowers Primary Care Provider MD Doug Montes Emergency Provider Dr. Dian Galan Admit Provider Dr. Dian Galan Attending Provider Dr. Dian Galan Other Provider Dr. Len Coyne Attending Provider Dr. Len Coyne Other Provider Dr. Michael Acosta Other Provider Dr. Meena Flowers Primary Care Provider [phone] Risa Gatica Emergency Provider [phone] [...] JENNINGS, Dr. Maggie Castro Other Provider [phone] Anaya JENNINGS, Dr. Bryce Henson Attending Provider Anaya JENNINGS, Dr. Bryce Henson Other Provider Adama JENNINGS, Dr. Dian Johns Attending Provider [...] (honey bee) Allergy to substance 02-03-2022 Anaphylaxis [facility] (1 source) bee venom protein (honey bee) Drug allergy (disorder) 09-26-2024 [facility] Repository Medications Current Medications Medication Drug [...] W/Diff, Automatedon 03- Absolute Neut Normal 2.0-7.7 [facility] Comment on above: Result Comment: Canc elled via OM: Order cancelled - Patient discharged Performed By: #### L 501.9985 #### [facility] [address] [place], [address] HCT Normal 37-47 [facility] Comment on above: Result Comment: Canc elled via OM: Order cancelled - Patient discharged Performed By: #### L 501.9985 #### [facility] [address] [place], [address] HGB Normal 12.0-15.0 [facility] Comment on above: Result Comment: Canc elled via OM: Order cancelled - Patient discharged Performed By: #### L 501.9985 #### [facility] [address] [place], [address] MCH Normal 27.0-32.0 [facility] Comment on above: Result Comment: Canc elled via OM: Order cancelled - Patient discharged Performed By: #### L 501.9985 #### [facility] [address] [place], [address] MCHC Normal 32-36 [facility] Comment on above: Result Comment: Canc elled via OM: Order cancelled - Patient discharged Performed By: #### L 501.9985 #### [facility] [address] [place], [address] MCV Normal 81-99 [facility] Comment on above: Result Comment: Canc elled via OM: Order cancelled - Patient discharged Performed By: #### L 501.9985 #### [facility] [address] [place], [address] NEUT% Normal 47-70 [facility] Comment on above: Result Comment: Canc elled via OM: Order cancelled - Patient discharged Performed By: #### L 501.9985 #### [facility] [address] [place], [address] PLT Normal 150-450 [facility] Comment on above: Result Comment: Canc elled via OM: Order cancelled - Patient discharged Performed By: #### L 501.9985 #### [facility] [address] [place], [address] RBC Normal 4.2-5.4 [facility] Comment on above: Result Comment: Canc elled via OM: Order cancelled - Patient discharged Performed By: #### L 501.9985 #### [facility] [address] [place], [address] RDW CV Normal 11.6-14.6 [facility] Comment on above: Result Comment: Canc elled via OM: Order cancelled - Patient discharged Performed By: #### L 501.9985 #### [facility] [address] [place], [address] RDW SD Normal 35.1-43.9 [facility] Comment on above: Result Comment: Canc elled via OM: Order cancelled - Patient discharged Performed By: #### L 501.9985 #### [facility] [address] [place], [address] WBC Normal 4.4-11.0 [facility] Comment on above: Result Comment: Canc elled via OM: Order cancelled - Patient discharged Performed By: #### L 501.9985 #### [facility] [address] [place], [address] CBC W/Diff, Automatedon - Absolute Neut Normal 2.0-7.7 [facility] Comment on above: Result Comment: Canc elled via OM: Order cancelled - Patient discharged Performed By: #### L 501.9985 #### [facility] [address] [place], [address] HCT Normal 37-47 [facility] Comment on above: Result Comment: Canc elled via OM: Order cancelled - Patient discharged Performed By: #### L 501.9985 #### [facility] [address] [place], [address] HGB Normal 12.0-15.0 [facility] Comment on above: Result Comment: Canc elled via OM: Order cancelled - Patient discharged Performed By: #### L 501.9985 #### [facility] [address] [place], [address] MCH Normal 27.0-32.0 [facility] Comment on above: Result Comment: Canc elled via OM: Order cancelled - Patient discharged Performed By: #### L 501.9985 #### [facility] [address] [place], [address] MCHC Normal 32-36 [facility] Comment on above: Result Comment: Canc elled via OM: Order cancelled - Patient discharged Performed By: #### L 501.9985 #### [facility] [address] [place], [address] MCV Normal 81-99 [facility] Comment on above: Result Comment: Canc elled via OM: Order cancelled - Patient discharged Performed By: #### L 501.9985 #### [facility] [address] [place], [address] NEUT% Normal 47-70 [facility] Comment on above: Result Comment: Canc elled via OM: Order cancelled - Patient discharged Performed By: #### L 501.9985 #### [facility] [address] [place], [address] PLT Normal 150-450 [facility] Comment on above: Result Comment: Canc elled via OM: Order cancelled - Patient discharged Performed By: #### L 501.9985 #### [facility] [address] [place], [address] RBC Normal 4.2-5.4 [facility] Comment on above: Result Comment: Canc elled via OM: Order cancelled - Patient discharged Performed By: #### L 501.9985 #### [facility] [address] [place], [address] RDW CV Normal 11.6-14.6 [facility] Comment on above: Result Comment: Canc elled via OM: Order cancelled - Patient discharged Performed By: #### L 501.9985 #### [facility] [address] [place], [address] RDW SD Normal 35.1-43.9 [facility] Comment on above: Result Comment: Canc elled via OM: Order cancelled - Patient discharged Performed By: #### L 501.9985 #### [facility] [address] [place], [address] WBC Normal 4.4-11.0 [facility] Comment on above: Result Comment: Canc elled via OM: Order cancelled - Patient discharged Performed By: #### L 501.9985 #### [facility] [address] [place], [address] CBC W/Diff, Automatedon 03-2 Absolute Neut Normal 2.0-7.7 [facility] Comment on above: Result Comment: Canc elled via OM: Order cancelled - Patient discharged Performed By: #### L 100.0100 #### [facility] [address] [place], [address] HCT Normal 37-47 [facility] Comment on above: Result Comment: Canc elled via OM: Order cancelled - Patient discharged Performed By: #### L 100.0100 #### [facility] [address] [place], [address] HGB Normal 12.0-15.0 [facility] Comment on above: Result Comment: Canc elled via OM: Order cancelled - Patient discharged Performed By: #### L 100.0100 #### [facility] [address] [place], [address] MCH Normal 27.0-32.0 [facility] Comment on above: Result Comment: Canc elled via OM: Order cancelled - Patient discharged Performed By: #### L 100.0100 #### [facility] [address] [place], [address] MCHC Normal 32-36 [facility] Comment on above: Result Comment: Canc elled via OM: Order cancelled - Patient discharged Performed By: #### L 100.0100 #### [facility] [address] [place], [address] MCV Normal 81-99 [facility] Comment on above: Result Comment: Canc elled via OM: Order cancelled - Patient discharged Performed By: #### L 100.0100 #### [facility] [address] [place], [address] NEUT% Normal 47-70 [facility] Comment on above: Result Comment: Canc elled via OM: Order cancelled - Patient discharged Performed By: #### L 100.0100 #### [facility] [address] [place], [address] PLT Normal 150-450 [facility] Comment on above: Result Comment: Canc elled via OM: Order cancelled - Patient discharged Performed By: #### L 100.0100 #### [facility] [address] [place], [address] RBC Normal 4.2-5.4 [facility] Comment on above: Result Comment: Canc elled via OM: Order cancelled - Patient discharged Performed By: #### L 100.0100 #### [facility] [address] [place], [address] RDW CV Normal 11.6-14.6 [facility] Comment on above: Result Comment: Canc elled via OM: Order cancelled - Patient discharged Performed By: #### L 100.0100 #### [facility] [address] [place], [address] RDW SD Normal 35.1-43.9 [facility] Comment on above: Result Comment: Canc elled via OM: Order cancelled - Patient discharged Performed By: #### L 100.0100 #### [facility] [address] [place], [address] WBC Normal 4.4-11.0 [facility] Comment on above: Result Comment: Canc elled via OM: Order cancelled - Patient discharged Performed By: #### L 100.0100 #### [facility] [address] [place], [address] CBC W/Diff, Automatedon 03-2 -2024 Absolute Neut Normal 2.0-7.7 [facility] Comment on above: Result Comment: Canc elled via OM: Order cancelled - Patient discharged Performed By: #### L 500.2500 #### [facility] [address] [place], [address] HCT Normal 37-47 [facility] Comment on above: Result Comment: Canc elled via OM: Order cancelled - Patient discharged Performed By: #### L 500.2500 #### [facility] [address] [place], [address] HGB Normal 12.0-15.0 [facility] Comment on above: Result Comment: Canc elled via OM: Order cancelled - Patient discharged Performed By: #### L 500.2500 #### [facility] [address] [place], [address] MCH Normal 27.0-32.0 [facility] Comment on above: Result Comment: Canc elled via OM: Order cancelled - Patient discharged Performed By: #### L 500.2500 #### [facility] [address] [place], [address] MCHC Normal 32-36 [facility] Comment on above: Result Comment: Canc elled via OM: Order cancelled - Patient discharged Performed By: #### L 500.2500 #### [facility] [address] [place], [address] MCV Normal 81-99 [facility] Comment on above: Result Comment: Canc elled via OM: Order cancelled - Patient discharged Performed By: #### L 500.2500 #### [facility] [address] [place], [address] NEUT% Normal 47-70 [facility] Comment on above: Result Comment: Canc elled via OM: Order cancelled - Patient discharged Performed By: #### L 500.2500 #### [facility] [address] [place], [address] PLT Normal 150-450 [facility] Comment on above: Result Comment: Canc elled via OM: Order cancelled - Patient discharged Performed By: #### L 500.2500 #### [facility] [address] [place], [address] RBC Normal 4.2-5.4 [facility] Comment on above: Result Comment: Canc elled via OM: Order cancelled - Patient discharged Performed By: #### L 500.2500 #### [facility] [address] [place], [address] RDW CV Normal 11.6-14.6 [facility] Comment on above: Result Comment: Canc elled via OM: Order cancelled - Patient discharged Performed By: #### L 500.2500 #### [facility] [address] [place], [address] RDW SD Normal 35.1-43.9 [facility] Comment on above: Result Comment: Canc elled via OM: Order cancelled - Patient discharged Performed By: #### L 500.2500 #### [facility] [address] [place], [address] WBC Normal 4.4-11.0 [facility] Comment on above: Result Comment: Canc elled via OM: Order cancelled - Patient discharged Performed By: #### L 500.2500 #### [facility] [address] [place], [address] CBC W/Diff, Automatedon 03-2 Absolute Neut Normal 2.0-7.7 [facility] Comment on above: Result Comment: Canc elled via OM: Order cancelled - Patient discharged Performed By: #### L 501.080 #### [facility] [address] [place], [address] HCT Normal 37-47 [facility] Comment on above: Result Comment: Canc elled via OM: Order cancelled - Patient discharged Performed By: #### L 501.080 #### [facility] [address] [place], [address] HGB Normal 12.0-15.0 [facility] Comment on above: Result Comment: Canc elled via OM: Order cancelled - Patient discharged Performed By: #### L 501.080 #### [facility] [address] [place], [address] MCH Normal 27.0-32.0 [facility] Comment on above: Result Comment: Canc elled via OM: Order cancelled - Patient discharged Performed By: #### L 501.080 #### [facility] [address] [place], [address] MCHC Normal 32-36 [facility] Comment on above: Result Comment: Canc elled via OM: Order cancelled - Patient discharged Performed By: #### L 501.080 #### [facility] [address] [place], [address] MCV Normal 81-99 [facility] Comment on above: Result Comment: Canc elled via OM: Order cancelled - Patient discharged Performed By: #### L 501.080 #### [facility] [address] [place], [address] NEUT% Normal 47-70 [facility] Comment on above: Result Comment: Canc elled via OM: Order cancelled - Patient discharged Performed By: #### L 501.080 #### [facility] [address] [place], [address] PLT Normal 150-450 [facility] Comment on above: Result Comment: Canc elled via OM: Order cancelled - Patient discharged Performed By: #### L 501.080 #### [facility] [address] [place], [address] RBC Normal 4.2-5.4 [facility] Comment on above: Result Comment: Canc elled via OM: Order cancelled - Patient discharged Performed By: #### L 501.080 #### [facility] [address] [place], [address] RDW CV Normal 11.6-14.6 [facility] Comment on above: Result Comment: Canc elled via OM: Order cancelled - Patient discharged Performed By: #### L 501.080 #### [facility] [address] [place], [address] RDW SD Normal 35.1-43.9 [facility] Comment on above: Result Comment: Canc elled via OM: Order cancelled - Patient discharged Performed By: #### L 501.080 #### [facility] [address] [place], [address] WBC Normal 4.4-11.0 [facility] Comment on above: Result Comment: Canc elled via OM: Order cancelled - Patient discharged Performed By: #### L 501.080 #### [facility] [address] [place], [address] Urine Cultureon 09-30-2024 URC Below infection level. Mixed Gram Pos Gram Neg Org Raymond Count 1000-10,000 MIXC Mixed contaminants. Submit a new specimen if indicated. Normal [facility] Comment on above: Performed By: #### L 501.080 #### [facility] [address] [place], [address] Basic Metabolic Profile (BMP )on 09-29-2024 BUN Normal 4-19 [facility] Comment on above: Result Comment: Canc elled via OM: Order cancelled - Patient discharged Performed By: #### L 500.2500 #### [facility] [address] [place], [address] BUN/CRE Normal 10-20 [facility] Comment on above: Result Comment: Canc elled via OM: Order cancelled - Patient discharged Performed By: #### L 500.2500 #### [facility] [address] [place], [address] Calcium Normal 7.6-11.0 [facility] Comment on above: Result Comment: Canc elled via OM: Order cancelled - Patient discharged Performed By: #### L 500.2500 #### [facility] [address] [place], [address] CL Normal 98-108 [facility] Comment on above: Result Comment: Canc elled via OM: Order cancelled - Patient discharged Performed By: #### L 500.2500 #### [facility] [address] [place], [address] CO2 Normal 21.0-32.0 [facility] Comment on above: Result Comment: Canc elled via OM: Order cancelled - Patient discharged Performed By: #### L 500.2500 #### [facility] [address] [place], [address] CREAT,SERUM Normal 0.70-1.20 [facility] Comment on above: Result Comment: Canc elled via OM: Order cancelled - Patient discharged Performed By: #### L 500.2500 #### [facility] [address] [place], [address] eGFR Normal >60 [facility] Comment on above: Result Comment: Canc elled via OM: Order cancelled - Patient discharged Performed By: #### L 500.2500 #### [facility] [address] [place], [address] GAP Normal 5-15 [facility] Comment on above: Result Comment: Canc elled via OM: Order cancelled - Patient discharged Performed By: #### L 500.2500 #### [facility] [address] [place], [address] GLU Normal 70-99 [facility] Comment on above: Result Comment: Canc elled via OM: Order cancelled - Patient discharged Performed By: #### L 500.2500 #### [facility] [address] [place], [address] Potassium Normal 3.3-5.1 [facility] Comment on above: Result Comment: Canc elled via OM: Order cancelled - Patient discharged Performed By: #### L 500.2500 #### [facility] [address] [place], [address] Basic Metabolic Profile (BMP) Normal 133-145 [facility] Comment on above: Result Comment: Canc elled via OM: Order cancelled - Patient discharged Performed By: #### L 500.2500 #### [facility] [address] [place], [address] CBC W/Diff, Automatedon 03-2 4-2025 Absolute Neut Normal 2.0-7.7 [facility] Comment on above: Result Comment: Canc elled via OM: Order cancelled - Patient discharged Performed By: #### L 501.080 #### [facility] [address] [place], [address] HCT Normal 37-47 [facility] Comment on above: Result Comment: Canc elled via OM: Order cancelled - Patient discharged Performed By: #### L 501.080 #### [facility] [address] [place], [address] HGB Normal 12.0-15.0 [facility] Comment on above: Result Comment: Canc elled via OM: Order cancelled - Patient discharged Performed By: #### L 501.080 #### [facility] [address] [place], [address] MCH Normal 27.0-32.0 [facility] Comment on above: Result Comment: Canc elled via OM: Order cancelled - Patient discharged Performed By: #### L 501.080 #### [facility] [address] [place], [address] MCHC Normal 32-36 [facility] Comment on above: Result Comment: Canc elled via OM: Order cancelled - Patient discharged Performed By: #### L 501.080 #### [facility] [address] [place], [address] MCV Normal 81-99 [facility] Comment on above: Result Comment: Canc elled via OM: Order cancelled - Patient discharged Performed By: #### L 501.080 #### [facility] [address] [place], [address] NEUT% Normal 47-70 [facility] Comment on above: Result Comment: Canc elled via OM: Order cancelled - Patient discharged Performed By: #### L 501.080 #### [facility] [address] [place], [address] PLT Normal 150-450 [facility] Comment on above: Result Comment: Canc elled via OM: Order cancelled - Patient discharged Performed By: #### L 501.080 #### [facility] [address] [place], [address] RBC Normal 4.2-5.4 [facility] Comment on above: Result Comment: Canc elled via OM: Order cancelled - Patient discharged Performed By: #### L 501.080 #### [facility] [address] [place], [address] RDW CV Normal 11.6-14.6 [facility] Comment on above: Result Comment: Canc elled via OM: Order cancelled - Patient discharged Performed By: #### L 501.080 #### [facility] [address] [place], [address] RDW SD Normal 35.1-43.9 [facility] Comment on above: Result Comment: Canc elled via OM: Order cancelled - Patient discharged Performed By: #### L 501.080 #### [facility] [address] [place], [address] WBC Normal 4.4-11.0 [facility] Comment on above: Result Comment: Canc elled via OM: Order cancelled - Patient discharged Performed By: #### L 501.080 #### [facility] [address] [place], [address] Absolute neutrophil countOrd ered By: Maggie Reed on 09-28-2024 Neutrophils (Bld) [#/Vol] 3.8 10*3/uL 2.0-7.7 [facility] Anion gap in Serum or Plasma Ordered By: Dian Galan on 09-28-2024 Anion gap [Moles/Vol] 15 mmol/L 5-15 [facility] BUN/creatinine ratioOrdered By: Dian Galan on 09-28-2024 Urea nitrogen/Creatinine [Mass ratio] 5.5 mg/mg Low 10-20 [facility] Basic Metabolic Profile (BMP )on 09-28-2024 BUN Normal 4-19 [facility] Comment on above: Result Comment: Canc elled via OM: MD Ordered Performed By: #### L 500.2500 #### [facility] [address] [place], [address] Performed By: #### L 501.080 #### [facility] [address] [place], [address] BUN/CRE Normal 10-20 [facility] Comment on above: Result Comment: Canc elled via OM: MD Ordered Performed By: #### L 500.2500 #### [facility] Laboratory [address] [place], [address] Performed By: #### L 501.080 #### [facility] Laboratory [address] [place], [address] Calcium Normal 7.6-11.0 [facility] Comment on above: Result Comment: Canc elled via OM: MD Ordered Performed By: #### L 500.2500 #### [facility] [address] [place], [address] Performed By: #### L 501.080 #### [facility] [address] [place], [address] CL Normal 98-108 [facility] Comment on above: Result Comment: Canc elled via OM: MD Ordered Performed By: #### L 500.2500 #### [facility] [address] [place], [address] Performed By: #### L 501.080 #### [facility] [address] [place], [address] CO2 Normal 21.0-32.0 [facility] Comment on above: Result Comment: Canc elled via OM: MD Ordered Performed By: #### L 500.2500 #### [facility] [address] [place], [address] Performed By: #### L 501.080 #### [facility] [address] [place], [address] CREAT,SERUM Normal 0.70-1.20 [facility] Comment on above: Result Comment: Canc elled via OM: MD Ordered Performed By: #### L 500.2500 #### [facility] [address] [place], [address] Performed By: #### L 501.080 #### [facility] [address] [place], [address] eGFR Normal >60 [facility] Comment on above: Result Comment: Canc elled via OM: MD Ordered Performed By: #### L 500.2500 #### [facility] [address] [place], [address] Performed By: #### L 501.080 #### [facility] [address] [place], [address] GAP Normal 5-15 [facility] Comment on above: Result Comment: Canc elled via OM: MD Ordered Performed By: #### L 500.2500 #### [facility] [address] [place], [address] Performed By: #### L 501.080 #### [facility] [address] [place], [address] GLU Normal 70-99 [facility] Comment on above: Result Comment: Canc elled via OM: MD Ordered Performed By: #### L 500.2500 #### [facility] [address] [place], [address] Performed By: #### L 501.080 #### [facility] [address] [place], [address] Potassium Normal 3.3-5.1 [facility] Comment on above: Result Comment: Can elled via OM: MD Ordered Performed By: #### L 500.2500 #### [facility] [address] [place], [address] Performed By: #### L 501.080 #### [facility] [address] [place], [address] Basic Metabolic Profile (BMP) Normal 133-145 [facility] Comment on above: Result Comment: Can elled via OM: MD Ordered Performed By: #### L 500.2500 #### [facility] [address] [place], [address] Performed By: #### L 501.080 #### [facility] [address] [place], [address] BUN/CRE 5.5 RATIO Low 10-20 [facility] Comment on above: Performed By: #### L [id number] #### [facility] [address] [place], [address] Calcium [Mass/Vol] 8.0 mg/dL Normal 7.6-11.[address] [facility] Comment on above: Performed By: #### L [id number] #### [facility] [address] [place], [address] Chloride [Moles/Vol] 104 mmol/L Normal 98-108 [facility] Comment on above: Performed By: #### L [id number] #### [facility] [address] [place], [address] CO2 [Moles/Vol] 14.7 mmol/L Low 21.0-32.0 [facility] Comment on above: Performed By: #### L [id number] #### [facility] [address] [place], [address] Creatinine [Mass/Vol] 0.65 mg/dL Low 0.70-1.20 [facility] Comment on above: Performed By: #### L [id number] #### [facility] [address] [place], [address] ECRCL 109.51 ml/min Normal 50-250 [facility] Comment on above: Performed By: #### L [id number] #### [facility] [address] [place], [address] GAP 15 Normal 5-15 [facility] Comment on above: Performed By: #### L [id number] #### [facility] [address] [place], [address] GFR/1.73 sq M.predicted among non-blacks MDRD (S/P/Bld) [Vol rate/Area] 119 mL/min/{1.73_m2} Normal >60 [facility] Comment on above: Result Comment: mL/m in/1.73m2 CKD-EPI Creatinine Equation (2020) Performed By: #### L [id number] #### [facility] [address] [place], [address] Glucose [Mass/Vol] 272 mg/dL High 70-[address] [facility] Comment on above: Performed By: #### L [id number] #### [facility] [address] [place], [address] Potassium [Moles/Vol] 3.6 mmol/L Normal 3.3-5.1 [facility] Comment on above: Performed By: #### L [id number] #### [facility] [address] [place], [address] Sodium [Moles/Vol] 133 mmol/L Normal 133-[address] [facility] Comment on above: Performed By: #### L [id number] #### [facility] [address] [place], [address] Urea nitrogen [Mass/Vol] 4 mg/dL Normal 4-19 [facility] Comment on above: Performed By: #### L [id number] #### [facility] [address] [place], [address] BUN/CRE 7.0 RATIO Low 10-20 [facility] Comment on above: Performed By: #### L 501.080 #### [facility] [address] [place], [address] Calcium [Mass/Vol] 8.0 mg/dL Normal 7.6-11.[address] [facility] Comment on above: Performed By: #### L 501.080 #### [facility] [address] [place], [address] Chloride [Moles/Vol] 108 mmol/L Normal 98-108 [facility] Comment on above: Performed By: #### L 501.080 #### [facility] [address] [place], [address] CO2 [Moles/Vol] 15.8 mmol/L Low 21.0-32.0 [facility] Comment on above: Performed By: #### L 501.080 #### [facility] [address] [place], [address] Creatinine [Mass/Vol] 0.61 mg/dL Low 0.70-1.20 [facility] Comment on above: Performed By: #### L 501.080 #### [facility] [address] [place], [address] ECRCL 116.69 ml/min Normal 50-250 [facility] Comment on above: Performed By: #### L 501.080 #### [facility] [address] [place], [address] GAP 11 Normal 5-15 [facility] Comment on above: Performed By: #### L 501.080 #### [facility] [address] [place], [address] GFR/1.73 sq M.predicted among non-blacks MDRD (S/P/Bld) [Vol rate/Area] 120 mL/min/{1.73_m2} Normal >60 [facility] Comment on above: Result Comment: mL/m in/1.73m2 CKD-EPI Creatinine Equation (2020) Performed By: #### L 501.080 #### [facility] [address] [place], [address] Glucose [Mass/Vol] 114 mg/dL High 70-[address] [facility] Comment on above: Performed By: #### L 501.080 #### [facility] [address] [place], [address] Potassium [Moles/Vol] 3.2 mmol/L Low 3.3-5.1 [facility] Comment on above: Result Comment: Hemo lysis present, Results??could be affected. ?? Performed By: #### L 501.080 #### [facility] [address] [place], [address] Sodium [Moles/Vol] 135 mmol/L Normal 133-[address] [facility] Comment on above: Performed By: #### L 501.080 #### [facility] [address] [place], [address] Urea nitrogen [Mass/Vol] 4 mg/dL Normal 4-19 [facility] Comment on above: Performed By: #### L 501.080 #### [facility] [address] [place], [address] Potassium [Moles/Vol] 6.1 mmol/L Invalid Interpretation Code 3.3-5.1 [facility] Comment on above: Result Comment: Hemo lysis present, Results??could be affected. ?? HEMOLYSIS PRESENT Hemolysis present, Results??could be affected. ?? HEMOLYSIS PRESENT RESULT TNP IN [employer] AMENDED REPORT 09/28/24 0005 K previously reported as: Test not performed mmol/L Hemolysis present, Results??could be affected. ?? HEMOLYSIS PRESENT Performed By: #### L 501.080 #### [facility] [address] [place], [address] Basophil percentageOrdered B y: Maggie Reed on 09-28-2024 Basophils/100 WBC (Bld) 0.6 % 0-1 [facility] Bedside Glucoseon 09-28-2024 FINGERSTICK GLU 250 mg/dL High 74-106 [facility] Comment on above: Result Comment: KAZ GEMENT OF PATIENT CARE PER NURSING PROTOCOL Performed By: #### L 501.080 #### [facility] [address] [place], [address] FINGERSTICK GLU 85 mg/dL Normal 74-106 [facility] Comment on above: Result Comment: KAZ GEMENT OF PATIENT CARE PER NURSING PROTOCOL Performed By: #### L 400.0001 #### [facility] [address] [place], [address] FINGERSTICK GLU 106 mg/dL Normal 74-106 [facility] Comment on above: Result Comment: KAZ GEMENT OF PATIENT CARE PER NURSING PROTOCOL Performed By: #### L 501.080 #### [facility] [address] [place], [address] FINGERSTICK GLU 123 mg/dL High 74-106 [facility] Comment on above: Result Comment: KAZ GEMENT OF PATIENT CARE PER NURSING PROTOCOL Performed By: #### L 501.080 #### [facility] [address] [place], [address] CBC W/Diff, Automatedon 03-2 -2024 Absolute Lymph 1.97 X10 3/uL Normal 0.83-4.51 [facility] Comment on above: Performed By: #### L 501.080 #### [facility] [address] [place], [address] Absolute Neut 3.8 X10 3/uL Normal 2.0-7.7 [facility] Comment on above: Performed By: #### L 501.080 #### [facility] [address] [place], [address] Basophils/100 WBC (Bld) 0.6 % Normal 0-1 [facility] Comment on above: Performed By: #### L 501.080 #### [facility] [address] [place], [address] Eosinophils/100 WBC (Bld) 1.1 % Normal 0-5 [facility] Comment on above: Performed By: #### L 501.080 #### [facility] [address] [place], [address] Erythrocyte distribution width (RBC) [Ratio] 16.2 % High 11.6-14.6 [facility] Comment on above: Performed By: #### L 501.080 #### [facility] [address] [place], [address] Hematocrit (Bld) [Volume fraction] 35.9 % Low 37-47 [facility] Comment on above: Performed By: #### L 501.080 #### [facility] [address] [place], [address] Hemoglobin (Bld) [Mass/Vol] 11.8 g/dL Low 12.0-15.0 [facility] Comment on above: Performed By: #### L 501.080 #### [facility] [address] [place], [address] IG% 0.300 Normal 0.0-0.9 [facility] Comment on above: Result Comment: IG% - Immature Granulocytes (promyelocytes, myelocytes and metamyelocytes) > 1% indicates that a LEFT SHIFT is Present. Performed By: #### L 501.080 #### [facility] [address] [place], [address] Lymphocytes/100 WBC (Bld) 30.8 % Normal 19-41 [facility] Comment on above: Performed By: #### L 501.080 #### [facility] [address] [place], [address] MCH (RBC) [Entitic mass] 29.2 pg Normal 27.0-32.0 [facility] Comment on above: Performed By: #### L 501.080 #### [facility] [address] [place], [address] MCHC (RBC) [Mass/Vol] 32.9 g/dL Normal 32-36 [facility] Comment on above: Performed By: #### L 501.080 #### [facility] [address] [place], [address] MCV (RBC) [Entitic vol] 88.9 fL Normal 81-99 [facility] Comment on above: Performed By: #### L 501.080 #### [facility] [address] [place], [address] Monocytes/100 WBC (Bld) 7.5 % Normal 0-10 [facility] Comment on above: Performed By: #### L 501.080 #### [facility] [address] [place], [address] Neutrophils/100 WBC (Bld) 59.7 % Normal 47-70 [facility] Comment on above: Performed By: #### L 501.080 #### [facility] [address] [place], [address] Nucleated RBC (Bld) [#/Vol] 0 10*3/uL Normal 0-5 [facility] Comment on above: Performed By: #### L 501.080 #### [facility] Laboratory [address] [place], [address] Platelet mean volume (Bld) [Entitic vol] 9.1 fL Normal 6.2-12.0 [facility] Comment on above: Performed By: #### L 501.080 #### [facility] Laboratory [address] [place], [address] Platelets (Bld) [#/Vol] 312 10*3/uL Normal 150-450 [facility] Comment on above: Performed By: #### L 501.080 #### [facility] [address] [place], [address] RBC (Bld) [#/Vol] 4.04 10*6/uL Low 4.2-5.4 [facility] Comment on above: Performed By: #### L 501.080 #### [facility] [address] [place], [address] RDW SD 53.1 fl High 35.1-43.9 [facility] Comment on above: Performed By: #### L 501.080 #### [facility] [address] [place], [address] WBC (Bld) [#/Vol] 6.4 10*3/uL Normal 4.4-11.[address] [facility] Comment on above: Performed By: #### L 501.080 #### [facility] [address] [place], [address] Carbon dioxide, total [Moles /volume] in Central venous bloodOrdered By: Dian Galan on 09-28-2024 CO2 [Moles/Vol] 14.7 mmol/L Low 21.0-32.0 [facility] Chloride assayOrdered By: Nia anam Galan on 09-28-2024 Chloride [Moles/Vol] 104 mmol/L 98-108 [facility] Discharge Instructionon 09-07 Discharge Instruction [facility] Medical Records Department [address] [place] [address] Instructions for Home/Discharge Instructions 09/28/24 0900 MR#: [id number] Acct: [id number] Name: BRETT BOBBY Rep #: [id number] : 1990 33 From: Bryce Julien MD [...] 09/28/24 09 Bryce Julien MD CC: Dr. Meena Flowers DO; Dr. Maggie Reed MD Signed Normal [facility] Eosinophil percentageOrdered By: Maggie Reed on 09-28-2024 Eosinophils/100 WBC (Bld) 1.1 % 0-5 [facility] Erythrocyte distribution wid th ratioOrdered By: Maggie Reed on 09-28-2024 Erythrocyte distribution width (RBC) [Ratio] 16.2 % High 11.6-14.6 [facility] Erythrocyte distribution wid th standard deviationOrdered By: Maggie Reed on 09-28-2024 Erythrocyte distribution width (RBC) [Entitic vol] 53.1 fL High 35.1-43.9 [facility] Estimation of creatinine patito aranceOrdered By: Dian Galan on 09-28-2024 Estimated Creatinine Clearance Calc 109.51 ml/min 50-250 [facility] GFR/1.73 sq M.predicted rey g non-blacks MDRD (S/P/Bld) [Vol rate/Area]Ordered By: Dian Galan on 09-28-2024 Estimated GFR (MDRD) Non-Af Amer 119 >60 [facility] Comment on above: mL/min/1.73m2 CKD-EP I Creatinine Equation (2020) Glucose measurement at bedsi deOrdered By: Bryce Julien on 09-28-2024 Bedside Glucose (Misc Panel) 250 mg/dL High 74-106 [facility] Comment on above: MANAGEMENT OF PATIEN T CARE PER NURSING PROTOCOL Hematocrit Auto (Bld) [Volum e fraction]Ordered By: Maggie Reed on 09-28-2024 Hematocrit (Bld) [Volume fraction] 35.9 % Low 37-47 [facility] Hemoglobin measurementOrdere d By: Maggie Reed on 09-28-2024 Hemoglobin (Bld) [Mass/Vol] 11.8 g/dL Low 12.0-15.0 [facility] Immature granulocytes/100 WB C Auto (Bld)Ordered By: Maggie Reed on 09-28-2024 Immature granulocytes/100 WBC (Bld) 0.300 % 0.0-0.9 [facility] Comment on above: IG% - Immature Granu locytes (promyelocytes, myelocytes and metamyelocytes) > 1% indicates that a LEFT SHIFT is Present. Lymphocytes Auto (Unsp spec) [#/Vol]Ordered By: Maggie Reed on 09-28-2024 Lymphocytes (Bld) [#/Vol] 1.97 10*3/uL 0.83-4.51 [facility] Lymphocytes/100 WBC Auto (Un sp spec)Ordered By: Maggie Reed on 09-28-2024 Lymphocytes/100 WBC (Bld) 30.8 % 19-41 [facility] MCV (mean corpuscular volume ) determinationOrdered By: Maggie Reed on 09-28-2024 MCV (RBC) [Entitic vol] 88.9 fL 81-99 [facility] Comment on above: Delta: 94.3 on 09/27-0555 Mean corpuscular hemoglobin (MCH) determinationOrdered By: Maggie Reed on 09-28-2024 MCH (RBC) [Entitic mass] 29.2 pg 27.0-32.0 [facility] Mean corpuscular hemoglobin concentration (MCHC) determinationOrdered By: Maggie Reed on 09-28-2024 MCHC (RBC) [Mass/Vol] 32.9 g/dL 32-36 [facility] Mean platelet volume determi nationOrdered By: Maggie Reed on 09-28-2024 Platelet mean volume (Bld) [Entitic vol] 9.1 fL 6.2-12.0 [facility] Monocyte percentageOrdered B y: Maggie Reed on 09-28-2024 Monocytes/100 WBC (Bld) 7.5 % 0-10 [facility] Neutrophil percentageOrdered By: Maggie Reed on 09-28-2024 Neutrophils/100 WBC (Bld) 59.7 % 47-70 [facility] Nucleated red blood cell per centageOrdered By: Maggie Reed on 09-28-2024 Nucleated RBC/100 WBC (Bld) [Ratio] 0 % 0-5 [facility] Platelet countOrdered By: Na hunter Reed on 09-28-2024 Platelets (Bld) [#/Vol] 312 10*3/uL 150-450 [facility] Potassium (Unsp spec) [Mass/ Vol]Ordered By: Dian Galan on 09-28-2024 Potassium [Moles/Vol] 3.6 mmol/L 3.3-5.1 [facility] RBC Auto (Bld) [#/Vol]Ordere d By: Maggie Reed on 09-28-2024 RBC (Bld) [#/Vol] 4.04 10*6/uL Low 4.2-5.4 [facility] Serum creatinine measurement (mass/volume)Ordered By: Dian Galan on 09-28-2024 Creatinine [Mass/Vol] 0.65 mg/dL Low 0.70-1.20 [facility] Serum glucose measurement (m ass/volume)Ordered By: Dain Galan on 09-28-2024 Glucose [Mass/Vol] 272 mg/dL High 70-[address] [facility] Serum or plasma calcium xin urement (mass/volume)Ordered By: Dian Galan on 09-28-2024 Calcium [Mass/Vol] 8.0 mg/dL 7.6-11.[address] [facility] Serum or plasma urea nitroge n measurement (mass/volume)Ordered By: Dian Galan on 09-28-2024 Urea nitrogen [Mass/Vol] 4 mg/dL 4-19 [facility] Sodium levelOrdered By: Auteleonora Galan on 09-28-2024 Sodium [Moles/Vol] 133 mmol/L 133-[address] [facility] White blood cell (WBC) count Ordered By: Maggie Reed on 09-28-2024 WBC (Bld) [#/Vol] 6.4 10*3/uL 4.4-11.[address] [facility] Basic Metabolic Profile (BMP )on 09-27-2024 BUN/CRE 9.0 RATIO Low 10-20 [facility] Comment on above: Performed By: #### L 400.0001 #### [facility] [address] [place], [place] [address] [place], [place], [id number] Calcium [Mass/Vol] 8.0 mg/dL Normal 7.6-11.[address] [facility] Comment on above: Performed By: #### L 400.0001 #### [facility] [address] [place], [address] Chloride [Moles/Vol] 104 mmol/L Normal 98-108 [facility] Comment on above: Performed By: #### L 400.0001 #### [facility] [address] [place], [address] CO2 [Moles/Vol] 12.3 mmol/L Low 21.0-32.0 [facility] Comment on above: Performed By: #### L 400.0001 #### [facility] [address] [place], [address] Creatinine [Mass/Vol] 0.76 mg/dL Normal 0.70-1.20 [facility] Comment on above: Performed By: #### L 400.0001 #### [facility] [address] [place], [address] ECRCL 93.66 ml/min Normal 50-250 [facility] Comment on above: Performed By: #### L 400.0001 #### [facility] [address] [place], [address] GAP 16 High 5-15 [facility] Comment on above: Performed By: #### L 400.0001 #### [facility] [address] [place], [address] GFR/1.73 sq M.predicted among non-blacks MDRD (S/P/Bld) [Vol rate/Area] 106 mL/min/{1.73_m2} Normal >60 [facility] Comment on above: Result Comment: mL/m in/1.73m2 CKD-EPI Creatinine Equation (2020) Performed By: #### L 400.0001 #### [facility] [address] [place], [address] Glucose [Mass/Vol] 245 mg/dL High 70-[address] [facility] Comment on above: Performed By: #### L 400.0001 #### [facility] [address] [place], [address] Potassium [Moles/Vol] 3.5 mmol/L Normal 3.3-5.1 [facility] Comment on above: Performed By: #### L 400.0001 #### [facility] [address] [place], [address] Sodium [Moles/Vol] 132 mmol/L Low 133-[address] [facility] Comment on above: Performed By: #### L 400.0001 #### [facility] [address] [place], [address] Urea nitrogen [Mass/Vol] 7 mg/dL Normal 4-19 [facility] Comment on above: Performed By: #### L 400.0001 #### [facility] [address] [place], [address] GAP 18 High 5-15 [facility] Comment on above: Order Comment: Call MD with results STAT Performed By: #### L 501.080 #### [facility] [address] [place], [address] CO2 [Moles/Vol] 9.8 mmol/L Invalid Interpretation Code 21.0-32.0 [facility] Comment on above: Order Comment: CLEAN [...] same. Performed By: #### L 400.0001 #### [facility] [address] [place], [address] BUN/CRE 12.8 RATIO Normal 10-20 [facility] Comment on above: Order Comment: Call MD with results STAT Performed By: #### L 501.080 #### [facility] [address] [place], [address] Calcium [Mass/Vol] 8.2 mg/dL Normal 7.6-11.[address] [facility] Comment on above: Order Comment: Call MD with results STAT Performed By: #### L 501.080 #### [facility] [address] [place], [address] Chloride [Moles/Vol] 103 mmol/L Normal 98-108 [facility] Comment on above: Order Comment: Call MD with results STAT Performed By: #### L 501.080 #### [facility] [address] [place], [address] CO2 [Moles/Vol] 8.4 mmol/L Invalid Interpretation Code 21.0-32.0 [facility] Comment on above: Order Comment: Call MD with results STAT Result Comment: Crit ical Result(s) Called at 09/27/2024-12:54 by Adriano Whatley??Results read back by same. Performed By: #### L 501.080 #### [facility] [address] [place], [address] Creatinine [Mass/Vol] 0.74 mg/dL Normal 0.70-1.20 [facility] Comment on above: Order Comment: Call MD with results STAT Performed By: #### L 501.080 #### [facility] [address] [place], [address] ECRCL 96.19 ml/min Normal 50-250 [facility] Comment on above: Order Comment: Call MD with results STAT Performed By: #### L 501.080 #### [facility] [address] [place], [address] GAP 21 High 5-15 [facility] Comment on above: Order Comment: Call MD with results STAT Performed By: #### L 501.080 #### [facility] [address] [place], [address] GFR/1.73 sq M.predicted among non-blacks MDRD (S/P/Bld) [Vol rate/Area] 108 mL/min/{1.73_m2} Normal >60 [facility] Comment on above: Order Comment: Call MD with results STAT Result Comment: mL/m in/1.73m2 CKD-EPI Creatinine Equation (2020) Performed By: #### L 501.080 #### [facility] [address] [place], [address] Glucose [Mass/Vol] 179 mg/dL High 70-[address] [facility] Comment on above: Order Comment: Call MD with results STAT Performed By: #### L 501.080 #### [facility] [address] [place], [address] Potassium [Moles/Vol] 4.2 mmol/L Normal 3.3-5.1 [facility] Comment on above: Order Comment: Call MD with results STAT Performed By: #### L 501.080 #### [facility] [address] [place], [address] Sodium [Moles/Vol] 132 mmol/L Low 133-[address] [facility] Comment on above: Order Comment: Call MD with results STAT Performed By: #### L 501.080 #### [facility] [address] [place], [address] Urea nitrogen [Mass/Vol] 9 mg/dL Normal 4-19 [facility] Comment on above: Order Comment: Call MD with results STAT Performed By: #### L 501.080 #### [facility] [address] [place], [address] BUN/CRE 13.1 RATIO Normal 10-20 [facility] Comment on above: Order Comment: CLEAN CATCH Performed By: #### L 400.0001 #### [facility] [address] [place], [address] Calcium [Mass/Vol] 8.3 mg/dL Normal 7.6-11.[address] [facility] Comment on above: Order Comment: CLEAN CATCH Performed By: #### L 400.0001 #### [facility] [address] [place], [address] Chloride [Moles/Vol] 107 mmol/L Normal 98-108 [facility] Comment on above: Order Comment: CLEAN CATCH Performed By: #### L 400.0001 #### [facility] [address] [place], [address] CO2 [Moles/Vol] 10.4 mmol/L Low 21.0-32.0 [facility] Comment on above: Order Comment: CLEAN CATCH Performed By: #### L 400.0001 #### [facility] [address] [place], [address] Creatinine [Mass/Vol] 0.73 mg/dL Normal 0.70-1.20 [facility] Comment on above: Order Comment: CLEAN CATCH Performed By: #### L 400.0001 #### [facility] [address] [place], [address] ECRCL 96.38 ml/min Normal 50-250 [facility] Comment on above: Order Comment: CLEAN CATCH Performed By: #### L 400.0001 #### [facility] [address] [place], [address] GAP 16 High 5-15 [facility] Comment on above: Order Comment: CLEAN CATCH Performed By: #### L 400.0001 #### [facility] [address] [place], [address] GFR/1.73 sq M.predicted among non-blacks MDRD (S/P/Bld) [Vol rate/Area] 110 mL/min/{1.73_m2} Normal >60 [facility] Comment on above: Order Comment: CLEAN CATCH Result Comment: mL/m in/1.73m2 CKD-EPI Creatinine Equation (2020) Performed By: #### L 400.0001 #### [facility] [address] [place], [address] Glucose [Mass/Vol] 119 mg/dL High 70-[address] [facility] Comment on above: Order Comment: CLEAN CATCH Performed By: #### L 400.0001 #### [facility] [address] [place], [address] Potassium [Moles/Vol] 3.7 mmol/L Normal 3.3-5.1 [facility] Comment on above: Order Comment: CLEAN CATCH Performed By: #### L 400.0001 #### [facility] [address] [place], [address] Sodium [Moles/Vol] 133 mmol/L Normal 133-[address] [facility] Comment on above: Order Comment: CLEAN CATCH Performed By: #### L 400.0001 #### [facility] [address] [place], [address] Urea nitrogen [Mass/Vol] 10 mg/dL Normal 4-19 [facility] Comment on above: Order Comment: CLEAN CATCH Performed By: #### L 400.0001 #### [facility] [address] [place], [address] Bedside Glucoseon 09-27-2024 FINGERSTICK GLU 117 mg/dL High 74-106 [facility] Comment on above: Result Comment: KAZ GEMENT OF PATIENT CARE PER NURSING PROTOCOL Performed By: #### L 400.0001 #### [facility] [address] [place], [address] FINGERSTICK GLU 115 mg/dL High 74-106 [facility] Comment on above: Result Comment: KAZ GEMENT OF PATIENT CARE PER NURSING PROTOCOL Performed By: #### L 501.080 #### [facility] [address] [place], [address] FINGERSTICK GLU 140 mg/dL High 74-106 [facility] Comment on above: Result Comment: KAZ GEMENT OF PATIENT CARE PER NURSING PROTOCOL Performed By: #### L 400.0001 #### [facility] [address] [place], [address] FINGERSTICK GLU 111 mg/dL High -106 [facility] Comment on above: Result Comment: KAZ GEMENT OF PATIENT CARE PER NURSING PROTOCOL Performed By: #### L 501.080 #### [facility] [address] [place], [address] FINGERSTICK GLU 171 mg/dL High -106 [facility] Comment on above: Result Comment: KAZ GEMENT OF PATIENT CARE PER NURSING PROTOCOL Performed By: #### L 501.080 #### [facility] [address] [place], [address] FINGERSTICK GLU 207 mg/dL High 74-106 [facility] Comment on above: Result Comment: KAZ GEMENT OF PATIENT CARE PER NURSING PROTOCOL Performed By: #### L 501.080 #### [facility] [address] [place], [address] FINGERSTICK GLU 229 mg/dL High 74-106 [facility] Comment on above: Result Comment: KAZ GEMENT OF PATIENT CARE PER NURSING PROTOCOL Performed By: #### L 501.080 #### [facility] [address] [place], [address] FINGERSTICK GLU 216 mg/dL High 74-106 [facility] Comment on above: Result Comment: KAZ GEMENT OF PATIENT CARE PER NURSING PROTOCOL Performed By: #### L 400.0001 #### [facility] [address] [place], [address] FINGERSTICK GLU 172 mg/dL High [address] [place] [address] Comment on above: Result Comment: KAZ GEMENT OF PATIENT CARE PER NURSING PROTOCOL Performed By: #### L 501.080 #### [facility] [address] [place], [address] FINGERSTICK GLU 190 mg/dL High [address] [place] [address] Comment on above: Result Comment: KAZ GEMENT OF PATIENT CARE PER NURSING PROTOCOL Performed By: #### L 501.080 #### [facility] [address] [place], [address] FINGERSTICK GLU 254 mg/dL High -[address] [place] [address] Comment on above: Result Comment: KAZ GEMENT OF PATIENT CARE PER NURSING PROTOCOL Performed By: #### L 501.080 #### [facility] [address] [place], [address] FINGERSTICK GLU 306 mg/dL High [address] [place] [address] Comment on above: Result Comment: KAZ GEMENT OF PATIENT CARE PER NURSING PROTOCOL Performed By: #### L 400.0001 #### [facility] [address] [place], [address] FINGERSTICK GLU 267 mg/dL High 74-[address] [place] [address] Comment on above: Result Comment: KAZ GEMENT OF PATIENT CARE PER NURSING PROTOCOL Performed By: #### L 501.080 #### [facility] [address] [place], [address] FINGERSTICK GLU 172 mg/dL High [address] [place] [address] Comment on above: Result Comment: KAZ GEMENT OF PATIENT CARE PER NURSING PROTOCOL Performed By: #### L 100.0100 #### [facility] [address] [place], [address] FINGERSTICK GLU 79 mg/dL Normal 74-106 [facility] Comment on above: Result Comment: KAZ GEMENT OF PATIENT CARE PER NURSING PROTOCOL Performed By: #### L 501.080 #### [facility] [address] [place], [address] FINGERSTICK GLU 81 mg/dL Normal 74-106 [facility] Comment on above: Result Comment: KAZ GEMENT OF PATIENT CARE PER NURSING PROTOCOL Performed By: #### L 501.080 #### [facility] [address] [place], [address] FINGERSTICK GLU 118 mg/dL High 74-106 [facility] Comment on above: Result Comment: KAZ GEMENT OF PATIENT CARE PER NURSING PROTOCOL Performed By: #### L 400.0001 #### [facility] [address] [place], [address] FINGERSTICK GLU 157 mg/dL High 74-106 [facility] Comment on above: Result Comment: KAZ GEMENT OF PATIENT CARE PER NURSING PROTOCOL Performed By: #### L 100.0100 #### [facility] [address] [place], [address] FINGERSTICK GLU 166 mg/dL High 74-106 [facility] Comment on above: Result Comment: KAZ GEMENT OF PATIENT CARE PER NURSING PROTOCOL Performed By: #### L 501.080 #### [facility] [address] [place], [address] FINGERSTICK GLU 177 mg/dL High 74-106 [facility] Comment on above: Result Comment: KAZ GEMENT OF PATIENT CARE PER NURSING PROTOCOL Performed By: #### L 501.080 #### [facility] [address] [place], [address] CBC W/Diff, Automatedon 09-07 Platelets (Bld) [#/Vol] 324 10*3/uL Normal 150-450 [facility] Comment on above: Order Comment: EMMETT W. PREVIOUS SPECIMEN REJECTED DUE TOCLOTTED. 09/27/24526 Karthik R Nugent. Performed By: #### L 100.0100 #### [facility] [address] [place], [address] Absolute Neut Normal 2.0-7.7 [facility] Comment on above: Result Comment: This specimen has been REJECTED due to Laboratory criteria: Clotted. CARSON has been notified of need of recollection. 09/27/24523 Karthik R Ungent Performed By: #### L 100.0100 #### [facility] [address] [place], [address] HCT Normal 37-47 [facility] Comment on above: Result Comment: This specimen has been REJECTED due to Laboratory criteria: Clotted. CARSON has been notified of need of recollection. 09/27/24523 Karthik R Nugent Performed By: #### L 100.0100 #### [facility] [address] [place], [address] HGB Normal 12.0-15.0 [facility] Comment on above: Result Comment: This specimen has been REJECTED due to Laboratory criteria: Clotted. CARSON has been notified of need of recollection. 09/27/24523 Karthik R Nugent Performed By: #### L 100.0100 #### [facility] [address] [place], [address] MCH Normal 27.0-32.0 [facility] Comment on above: Result Comment: This specimen has been REJECTED due to Laboratory criteria: Clotted. CARSON has been notified of need of recollection. 09/27/24523 Karthik R Nugent Performed By: #### L 100.0100 #### [facility] [address] [place], [address] MCHC Normal 32-36 [facility] Comment on above: Result Comment: This specimen has been REJECTED due to Laboratory criteria: Clotted. CARSON has been notified of need of recollection. 09/27/24523 Karthik R Nugent Performed By: #### L 100.0100 #### [facility] [address] [place], [address] MCV Normal 81-99 [facility] Comment on above: Result Comment: This specimen has been REJECTED due to Laboratory criteria: Clotted. CARSON has been notified of need of recollection. 09/27/24523 Karthik R Nugent Performed By: #### L 100.0100 #### [facility] [address] [place], [address] NEUT% Normal 47-70 [facility] Comment on above: Result Comment: This specimen has been REJECTED due to Laboratory criteria: Clotted. CARSON has been notified of need of recollection. 09/27/24523 Karthik R Nugent Performed By: #### L 100.0100 #### [facility] [address] [place], [address] PLT Normal 150-450 [facility] Comment on above: Result Comment: This specimen has been REJECTED due to Laboratory criteria: Clotted. CARSON has been notified of need of recollection. 09/27/24523 Karthik R Nugent Performed By: #### L 100.0100 #### [facility] [address] [place], [address] RBC Normal 4.2-5.4 [facility] Comment on above: Result Comment: This specimen has been REJECTED due to Laboratory criteria: Clotted. CARSON has been notified of need of recollection. 09/27/24523 Karthik R Nugent Performed By: #### L 100.0100 #### [facility] [address] [place], [address] RDW CV Normal 11.6-14.6 [facility] Comment on above: Result Comment: This specimen has been REJECTED due to Laboratory criteria: Clotted. CARSON has been notified of need of recollection. 09/27/24523 Karthik R Nugent Performed By: #### L 100.0100 #### [facility] [address] [place], [address] RDW SD Normal 35.1-43.9 [facility] Comment on above: Result Comment: This specimen has been REJECTED due to Laboratory criteria: Clotted. CARSON has been notified of need of recollection. 09/27/24523 Karthik R Nugent Performed By: #### L 100.0100 #### [facility] [address] [place], [address] WBC Normal 4.4-11.0 [facility] Comment on above: Result Comment: This specimen has been REJECTED due to Laboratory criteria: Clotted. CARSON has been notified of need of recollection. 09/27/24523 Karthik R Nugent Performed By: #### L 100.0100 #### [facility] [address] [place], [address] 12 Lead EKGon 09-26-2024 12 Lead EKG [facility] [address] [place] [address] 12 Lead EKG 09/26/24 0952 MR#: [id number] Acct: [id number] Name: BRETT BOBBY Rep #: [id number] : 1990 33 From: Bob Henriquez MD [...] leads Confirmed by CAMERON JENNINGS, BOB ([id number]), multimedia editor SABRINA MCCLELLAN ([id number]) on 09/29/2024 9:48:24 AM Referred By: Confirmed By: BOB HENRIQUEZ MD 09/29/2448 Date Bob Henriquez MD CC: Dr. Aba Murguia MD; Dr. Meena Flowers DO; Dr. Bryce Julien MD Signed Normal [facility] Absolute neutrophil countOrd ered By: Aba Murguia on 09-26-2024 Neutrophils (Bld) [#/Vol] 10.0 10*3/uL High 2.0-7.7 [facility] Anion gap in Serum or Plasma Ordered By: Aba Murguia on 09-26-2024 Anion gap [Moles/Vol] 35 mmol/L High 5-15 [facility] BUN/creatinine ratioOrdered By: Aba Murguia on 09-26-2024 Urea nitrogen/Creatinine [Mass ratio] 12.0 mg/mg 10-20 [facility] Base excess Calc (BldV) [Mol es/Vol]Ordered By: Aba Murguia on 09-26-2024 Venous Blood Base Excess -25 mmol/L Low -1.0-3.5 [facility] Basic Metabolic Profile (BMP )on 09-26-2024 CO2 [Moles/Vol] 7.6 mmol/L Invalid Interpretation Code 21.0-32.0 [facility] Comment on above: Order Comment: Call [...] same. Performed By: #### L 501.080 #### [facility] [address] [place], [address] CO2 [Moles/Vol] 5.0 mmol/L Invalid Interpretation Code 21.0-32.0 [facility] Comment on above: Order Comment: Call [...] same. Performed By: #### L 501.080 #### [facility] [address] [place], [address] BUN Normal 4-19 [facility] Comment on above: Order Comment: Call with results STAT Result Comment: This specimen has been REJECTED due to Laboratory criteria: Quanity Not Sufficient. MARTIN has been notified of need of recollection. 09/26/24 1440 Hanane Clapper Performed By: #### L 501.080 #### [facility] [address] [place], [address] BUN/CRE Normal 10-20 [facility] Comment on above: Order Comment: Call with results STAT Result Comment: This specimen has been REJECTED due to Laboratory criteria: Quanity Not Sufficient. MARTIN has been notified of need of recollection. 09/26/24 1440 Hanane Clapper Performed By: #### L 501.080 #### [facility] [address] [place], [address] Calcium Normal 7.6-11.0 [facility] Comment on above: Order Comment: Call MD with results STAT Result Comment: This specimen has been REJECTED due to Laboratory criteria: Quanity Not Sufficient. MARTIN has been notified of need of recollection. 09/26/24 1440 Hanane Clapper Performed By: #### L 501.080 #### [facility] [address] [place], [address] CL Normal 98-108 [facility] Comment on above: Order Comment: Call MD with results STAT Result Comment: This specimen has been REJECTED due to Laboratory criteria: Quanity Not Sufficient. MARTIN has been notified of need of recollection. 09/26/24 1440 Hanane Clapper Performed By: #### L 501.080 #### [facility] [address] [place], [address] CO2 Normal 21.0-32.0 [facility] Comment on above: Order Comment: Call MD with results STAT Result Comment: This specimen has been REJECTED due to Laboratory criteria: Quanity Not Sufficient. MARTIN has been notified of need of recollection. 09/26/24 1440 Hanane Clapper Performed By: #### L 501.080 #### [facility] [address] [place], [address] CREAT,SERUM Normal 0.70-1.20 [facility] Comment on above: Order Comment: Call with results STAT Result Comment: This specimen has been REJECTED due to Laboratory criteria: Quanity Not Sufficient. MARTIN has been notified of need of recollection. 09/26/24 1440 Hanane Clapper Performed By: #### L 501.080 #### [facility] [address] [place], [address] eGFR Normal >60 [facility] Comment on above: Order Comment: Call with results STAT Result Comment: This specimen has been REJECTED due to Laboratory criteria: Quanity Not Sufficient. MARTIN has been notified of need of recollection. 09/26/24 1440 Hanane Clapper Performed By: #### L 501.080 #### [facility] [address] [place], [address] GAP Normal 5-15 [facility] Comment on above: Order Comment: Call MD with results STAT Result Comment: This specimen has been REJECTED due to Laboratory criteria: Quanity Not Sufficient. MARTIN has been notified of need of recollection. 09/26/24 1440 Hanaen Clapper Performed By: #### L 501.080 #### [facility] [address] [place], [address] GLU Normal 70-99 [facility] Comment on above: Order Comment: Call MD with results STAT Result Comment: This specimen has been REJECTED due to Laboratory criteria: Quanity Not Sufficient. MARTIN has been notified of need of recollection. 09/26/24 1440 Hanane Clapper Performed By: #### L 501.080 #### [facility] [address] [place], [address] Potassium Normal 3.3-5.1 [facility] Comment on above: Order Comment: Call MD with results STAT Result Comment: This specimen has been REJECTED due to Laboratory criteria: Quanity Not Sufficient. MARTIN has been notified of need of recollection. 09/26/24 1440 Hanane Clapper Performed By: #### L 501.080 #### [facility] [address] [place], [address] Basic Metabolic Profile (BMP) Normal 133-145 [facility] Comment on above: Order Comment: Call MD with results STAT Result Comment: This specimen has been REJECTED due to Laboratory criteria: Quanity Not Sufficient. MARTIN has been notified of need of recollection. 09/26/24 1440 Hanane Clapper Performed By: #### L 501.080 #### [facility] [address] [place], [address] BUN/CRE 12.0 RATIO Normal 10-20 [facility] Comment on above: Performed By: #### L 501.080 #### [facility] [address] [place], [address] Calcium [Mass/Vol] 9.3 mg/dL Normal 7.6-11.[address] [facility] Comment on above: Performed By: #### L 501.080 #### [facility] [address] [place], [address] Chloride [Moles/Vol] 94 mmol/L Low 98-108 [facility] Comment on above: Performed By: #### L 501.080 #### [facility] [address] [place], [address] CO2 [Moles/Vol] 5.7 mmol/L Invalid Interpretation Code 21.0-32.0 [facility] Comment on above: Result Comment: Crit ical Result(s) Called at 1056 TO: AVANI by: KCLAPPER??Results read back by same. Performed By: #### L 501.080 #### [facility] [address] [place], [address] Creatinine [Mass/Vol] 0.84 mg/dL Normal 0.70-1.20 [facility] Comment on above: Performed By: #### L 501.080 #### [facility] [address] [place], [address] ECRCL 83.54 ml/min Normal 50-250 [facility] Comment on above: Performed By: #### L 501.080 #### [facility] [address] [place], [address] GAP 35 High 5-15 [facility] Comment on above: Performed By: #### L 501.080 #### [facility] [address] [place], [address] GFR/1.73 sq M.predicted among non-blacks MDRD (S/P/Bld) [Vol rate/Area] 93 mL/min/{1.73_m2} Normal >60 [facility] Comment on above: Result Comment: mL/m in/1.73m2 CKD-EPI Creatinine Equation (2020) Performed By: #### L 501.080 #### [facility] [address] [place], [address] Glucose [Mass/Vol] 339 mg/dL High 70-[address] [facility] Comment on above: Performed By: #### L 501.080 #### [facility] [address] [place], [address] Potassium [Moles/Vol] 4.7 mmol/L Normal 3.3-5.1 [facility] Comment on above: Performed By: #### L 501.080 #### [facility] [address] [place], [address] Sodium [Moles/Vol] 134 mmol/L Normal 133-[address] [facility] Comment on above: Performed By: #### L 501.080 #### [facility] [address] [place], [address] Urea nitrogen [Mass/Vol] 10 mg/dL Normal 4-19 [facility] [facility] Comment on above: Performed By: #### L 501.080 #### [facility] [address] [place], [address] BUN Normal 4-19 [facility] Comment on above: Result Comment: DIMAS CRONIN SAID THEY DID NOT NEED FAR SHE KNOWS. Performed By: #### L 501.080 #### [facility] [address] [place], [address] BUN/CRE Normal 10-20 [facility] Comment on above: Result Comment: DIMAS CRONIN SAID THEY DID NOT NEED FAR SHE KNOWS. Performed By: #### L 501.080 #### [facility] [address] [place], [address] Calcium Normal 7.6-11.0 [facility] Comment on above: Result Comment: DIMAS CRONIN SAID THEY DID NOT NEED FAR SHE KNOWS. Performed By: #### L 501.080 #### [facility] [address] [place], [address] CL Normal 98-108 [facility] Comment on above: Result Comment: DIMAS CRONIN SAID THEY DID NOT NEED FAR SHE KNOWS. Performed By: #### L 501.080 #### [facility] [address] [place], [address] CO2 Normal 21.0-32.0 [facility] Comment on above: Result Comment: DIMAS CRONIN SAID THEY DID NOT NEED FAR SHE KNOWS. Performed By: #### L 501.080 #### [facility] [address] [place], [address] CREAT,SERUM Normal 0.70-1.20 [facility] Comment on above: Result Comment: DIMAS CRONIN SAID THEY DID NOT NEED FAR SHE KNOWS. Performed By: #### L 501.080 #### [facility] [address] [place], [address] eGFR Normal >60 [facility] Comment on above: Result Comment: DIMAS CRONIN SAID THEY DID NOT NEED FAR SHE KNOWS. Performed By: #### L 501.080 #### [facility] [address] [place], [address] GAP Normal 5-15 [facility] Comment on above: Result Comment: DIMAS CRONIN SAID THEY DID NOT NEED FAR SHE KNOWS. Performed By: #### L 501.080 #### [facility] [address] [place], [address] GLU Normal 70-99 [facility] Comment on above: Result Comment: DIMAS CRONIN SAID THEY DID NOT NEED FAR SHE KNOWS. Performed By: #### L 501.080 #### [facility] [address] [place], [address] Potassium Normal 3.3-5.1 [facility] Comment on above: Result Comment: DIMAS CRONIN SAID THEY DID NOT NEED FAR SHE KNOWS. Performed By: #### L 501.080 #### [facility] [address] [place], [address] Basic Metabolic Profile (BMP) Normal 133-145 [facility] Comment on above: Result Comment: DIMAS CRONIN SAID THEY DID NOT NEED FAR SHE KNOWS. Performed By: #### L 501.080 #### [facility] [address] [place], [address] BUN Normal 4-19 [facility] Comment on above: Order Comment: REDRA W. PREVIOUS SPECIMEN REJECTED DUE TOQNS. 09/26/241441 Result Comment: ORDE R NOT NEEDED. ORDERS ALREADY PLACED FOR TIMED DRAWS Performed By: #### L 100.0100 #### [facility] [address] [place], [address] BUN/CRE Normal 10-20 [facility] Comment on above: Order Comment: REDRA W. PREVIOUS SPECIMEN REJECTED DUE TOQNS. 09/26/24 144 Result Comment: ORDE R NOT NEEDED. ORDERS ALREADY PLACED FOR TIMED DRAWS Performed By: #### L 100.0100 #### [facility] [address] [place], [address] Calcium Normal 7.6-11.0 [facility] Comment on above: Order Comment: REDRA W. PREVIOUS SPECIMEN REJECTED DUE TOQNS. 09/26/241441 Result Comment: ORDE R NOT NEEDED. ORDERS ALREADY PLACED FOR TIMED DRAWS Performed By: #### L 100.0100 #### [facility] [address] [place], [address] CL Normal 98-108 [facility] Comment on above: Order Comment: REDRA W. PREVIOUS SPECIMEN REJECTED DUE TOQNS. 09/26/241441 Result Comment: ORDE R NOT NEEDED. ORDERS ALREADY PLACED FOR TIMED DRAWS Performed By: #### L 100.0100 #### [facility] [address] [place], [address] CO2 Normal 21.0-32.0 [facility] Comment on above: Order Comment: REDRA W. PREVIOUS SPECIMEN REJECTED DUE TOQNS. 09/26/241441 Result Comment: ORDE R NOT NEEDED. ORDERS ALREADY PLACED FOR TIMED DRAWS Performed By: #### L 100.0100 #### [facility] [address] [place], [address] CREAT,SERUM Normal 0.70-1.20 [facility] Comment on above: Order Comment: REDRA W. PREVIOUS SPECIMEN REJECTED DUE TOQNS. 09/26/241441 Result Comment: ORDE R NOT NEEDED. ORDERS ALREADY PLACED FOR TIMED DRAWS Performed By: #### L 100.0100 #### [facility] [address] [place], [address] eGFR Normal >60 [facility] Comment on above: Order Comment: REDRA W. PREVIOUS SPECIMEN REJECTED DUE TOQNS. 09/26/241441 Result Comment: ORDE R NOT NEEDED. ORDERS ALREADY PLACED FOR TIMED DRAWS Performed By: #### L 100.0100 #### [facility] [address] [place], [address] GAP Normal 5-15 [facility] Comment on above: Order Comment: REDRA W. PREVIOUS SPECIMEN REJECTED DUE TOQNS. 09/26/241441 Result Comment: ORDE R NOT NEEDED. ORDERS ALREADY PLACED FOR TIMED DRAWS Performed By: #### L 100.0100 #### [facility] [address] [place], [address] GLU Normal 70-99 [facility] Comment on above: Order Comment: REDRA W. PREVIOUS SPECIMEN REJECTED DUE TOQNS. 09/26/24 1442 Result Comment: ORDE R NOT NEEDED. ORDERS ALREADY PLACED FOR TIMED DRAWS Performed By: #### L 100.0100 #### [facility] [address] [place], [address] Potassium Normal 3.3-5.1 [facility] Comment on above: Order Comment: REDRA W. PREVIOUS SPECIMEN REJECTED DUE TOQNS. 09/26/24 144 Result Comment: ORDE R NOT NEEDED. ORDERS ALREADY PLACED FOR TIMED DRAWS Performed By: #### L 100.0100 #### [facility] [address] [place], [address] Basic Metabolic Profile (BMP) Normal 133-145 [facility] Comment on above: Order Comment: REDRA W. PREVIOUS SPECIMEN REJECTED DUE TOQNS. 09/26/24 1442 Result Comment: ORDE R NOT NEEDED. ORDERS ALREADY PLACED FOR TIMED DRAWS Performed By: #### L 100.0100 #### [facility] [address] [place], [address] Basophil percentageOrdered B y: Aba Caione on 09-26-2024 Basophils/100 WBC (Bld) 0.9 % 0-1 [facility] Bedside Glucoseon 09-26-2024 FINGERSTICK GLU 201 mg/dL High 74-106 [facility] Comment on above: Result Comment: KAZ GEMENT OF PATIENT CARE PER NURSING PROTOCOL Performed By: #### L 501.080 #### [facility] [address] [place], [address] FINGERSTICK GLU 227 mg/dL High 74-106 [facility] Comment on above: Result Comment: KAZ GEMENT OF PATIENT CARE PER NURSING PROTOCOL Performed By: #### L 100.0100 #### [facility] [address] [place], [address] FINGERSTICK GLU 235 mg/dL High 74-106 [facility] Comment on above: Result Comment: KAZ GEMENT OF PATIENT CARE PER NURSING PROTOCOL Performed By: #### L 501.080 #### [facility] [address] [place], [address] FINGERSTICK GLU 223 mg/dL High 74-106 [facility] Comment on above: Result Comment: KAZ GEMENT OF PATIENT CARE PER NURSING PROTOCOL Performed By: #### L 100.0100 #### [facility] [address] [place], [address] FINGERSTICK GLU 257 mg/dL High 74-106 [facility] Comment on above: Result Comment: KAZ GEMENT OF PATIENT CARE PER NURSING PROTOCOL Performed By: #### L 100.0100 #### [facility] [address] [place], [address] FINGERSTICK GLU 240 mg/dL High 74-106 [facility] Comment on above: Result Comment: KAZ GEMENT OF PATIENT CARE PER NURSING PROTOCOL Performed By: #### L 400.0001 #### [facility] [address] [place], [address] FINGERSTICK GLU 251 mg/dL High 74-106 [facility] Comment on above: Result Comment: Dr Lima aguilera Followed MANAGEMENT OF PATIENT CARE PER NURSING PROTOCOL Performed By: #### L 501.080 #### [facility] [address] [place], [address] FINGERSTICK GLU 246 mg/dL High 74-106 [facility] Comment on above: Result Comment: KAZ GEMENT OF PATIENT CARE PER NURSING PROTOCOL Performed By: #### L 501.080 #### [facility] [address] [place], [address] FINGERSTICK GLU 232 mg/dL High 74-106 [facility] [facility] Comment on above: Result Comment: KAZ GEMENT OF PATIENT CARE PER NURSING PROTOCOL Performed By: #### L 501.080 #### [facility] [address] [place], [address] FINGERSTICK GLU 267 mg/dL High [address] [place] [address] Comment on above: Result Comment: KAZ GEMENT OF PATIENT CARE PER NURSING PROTOCOL Performed By: #### L 501.080 #### [facility] [address] [place], [address] FINGERSTICK GLU 361 mg/dL High [address] [place] [address] Comment on above: Result Comment: KAZ GEMENT OF PATIENT CARE PER NURSING PROTOCOL Performed By: #### L 501.080 #### [facility] [address] [place], [address] FINGERSTICK GLU 420 mg/dL High [address] [place] [address] Comment on above: Result Comment: KAZ GEMENT OF PATIENT CARE PER NURSING PROTOCOL Performed By: #### L 501.080 #### [facility] [address] [place], [address] FINGERSTICK GLU 341 mg/dL [address] Comment on above: Result Comment: KAZ GEMENT OF PATIENT CARE PER NURSING PROTOCOL Performed By: #### L 501.080 #### [facility] [address] [place], [address] Bilirubin Test strip Ql (U)O rdered By: Aba Murguia on 09-26-2024 Bilirubin Ql (U) Negative Negative [facility] CBC W/Diff, Automatedon -2 PLT EST SLT INC Normal ADEQ [facility] Comment on above: Performed By: #### L 501.080 #### [facility] [address] [place], [address] CO2 (BldV) [Moles/Vol]Ordere d By: Aba Murguia on 09-26-2024 CO2 [Moles/Vol] 6 mmol/L Low 23-33 [facility] CO2 (BldV) [Partial pressure ]Ordered By: Aba Murguia on 09-26-2024 Bed Mix Venous Bld PCO2 at Pat Temp 19.2 mmHg Low 41-51 [facility] Carbon dioxide, total [Moles /volume] in Central venous bloodOrdered By: Aba Murguia on 09-26-2024 CO2 [Moles/Vol] 5.7 mmol/L Low 21.0-32.0 [facility] Comment on above: Critical Result(s) C alled at 1056 TO: AHAGGCLARALior by: KCLAPPER Results read back by same. Chest 1 View (Portable)on Chest 1 View (Portable) [facility] Imaging Services [address] [place] [address] Chest 1 View (Portable) MR#: [id number] Acct: [id number] Name: BRETT BOBBY Rep #: [id number] : 1990 F 33 From: Michael Honeycutt MD PCP: Dr. Meena Flowers DO Status: REG ER Study: Chest 1 View (Portable) Date of Exam: 09/26/24 Exam# [id number] Ordering Dr: Aba Murguia MD PROCEDURE: CHEST [...] No visible acute cardiopulmonary findings Reading Location: [facility] CC: Dr. Aba Murguia MD; Dr. Meena Flowers DO Vehicle Return Associate: Signed Normal [facility] Chloride assayOrdered By: Sabas Murguia on 09-26-2024 Chloride [Moles/Vol] 94 mmol/L Low 98-108 [facility] Consultation - Intensiviston 09-26-2024 Consultation - Cold Type Composing Machine Operator [facility] Medical Records Department [address] [place] [address] Consultation - Cold Type Composing Machine Operator 09/26/24 1602 MR#: [id number] Acct: [id number] Name: BRETT BOBBY Rep #: [id number] : 1990 33 From: Dino Hernandez MD PCP: Dr. Meena Flowers, DO Status:ADM IN Location: ICU [id number] HPI Consult Data Date of Consult: 09/26/24 [...] mls/hr 09/26/24 12:38 Sodium Chloride CONT INF .[id number] JAC Protocol Dextrose/Sodium Chloride 1,000 mls @ [...] GI no (more content not included)... Normal [facility] Emergency Department Summary on 09-26-2024 Emergency Department Summary [facility] Medical Records Department [address] [place] [id number] Emergency Department Summary 09/26/24 MR#: [id number] Acct: [id number] Name: BRETT BOBBY Rep #: [id number] : 1990 33 From: Aba Murguia MD PCP: Dr. Meena Flowers, DO Status:ADM IN Location: ICU [id number] HPI History of Present Illness Chief Complaint: [...] is back to normal and feels fine. [facility] Medical History Tobacco abuse Stage 3a chronic [...] injury. Init (more content not included)... Normal [facility] Eosinophil percentageOrdered By: Aba Murguia on 09-26-2024 Eosinophils/100 WBC (Bld) 12.0 % High 0-5 [facility] Epithelial cells.squamous LM Ql (Urine sed)Ordered By: Aba Murguia on 09-26-2024 Epithelial cells.squamous LM.HPF (Urine sed) [#/Area] 5 /[HPF] 5-10 [facility] Erythrocyte distribution wid th ratioOrdered By: Aba Murguia on 09-26-2024 Erythrocyte distribution width (RBC) [Ratio] 16.1 % High 11.6-14.6 [facility] Erythrocyte distribution wid th standard deviationOrdered By: Aba Murguia on 09-26-2024 Erythrocyte distribution width (RBC) [Entitic vol] 57.2 fL High 35.1-43.9 [facility] Estimation of creatinine patito aranceOrdered By: Aba Murguia on 09-26-2024 Estimated Creatinine Clearance Calc 83.54 ml/min 50-250 [facility] Fine Granular Casts LM.LPF ( Urine sed) [#/Area]Ordered By: Aba Murguia on 09-26-2024 Urine Fine Granular Casts 0-5 SEEN /lpf 0-5 [facility] GFR/1.73 sq M.predicted rey g non-blacks MDRD (S/P/Bld) [Vol rate/Area]Ordered By: Aba Murguia on 09-26-2024 Estimated GFR (MDRD) Non-Af Amer 93 >60 [facility] Comment on above: mL/min/1.73m2 CKD-EP I Creatinine Equation (2020) Glucose Ql (U)Ordered By: Sabas Murguia on 09-26-2024 Glucose (U) [Mass/Vol] 1000 mg/dL High Normal [facility] deOrdered By: Aba Murguia on 09-26-2024 Bedside Glucose (Misc Panel) 341 mg/dL High 74-106 [facility] Comment on above: MANAGEMENT OF PATIEN T CARE PER NURSING PROTOCOL Hematocrit Auto (Bld) [Volum e fraction]Ordered By: Aba Murguia on 09-26-2024 Hematocrit (Bld) [Volume fraction] 45.9 % 37-47 [facility] Hemoglobin A1con 09-26-2024 HbA1c (Bld) [Mass fraction] 10.2 % Normal <=5.6 [facility] Comment on above: Performed By: #### L 501.9985 #### [facility] [address] [place], [place] [address]all [address]. [place], [place], [id number] Hemoglobin A1c percentageOrd ered By: Maggie Reed on 09-26-2024 HbA1c (Bld) [Mass fraction] 10.2 % >5.7 [facility] Hemoglobin measurementOrdere d By: Aba Murguia on 09-26-2024 Hemoglobin (Bld) [Mass/Vol] 14.2 g/dL 12.0-15.0 [facility] Immature granulocytes/100 WB C Auto (Bld)Ordered By: Aba Murguia on 09-26-2024 Immature granulocytes/100 WBC (Bld) 0.500 % 0.0-0.9 [facility] Comment on above: IG% - Immature Granu locytes (promyelocytes, myelocytes and metamyelocytes) > 1% indicates that a LEFT SHIFT is Present. Ketones Test strip Ql (U)Ord ered By: Aba Murguia on 09-26-2024 Ketones Ql (U) 150 mg/dl Abnormal Negative [facility] Comment on above: CRITICAL VALUE *HCRI TICAL VALUE CALLED TO CRISTIAN VILLALPANDO (ER)09/26/24 1029 Harjit Whitley.RESULTS READ BACK BY SAME. [id number] 09-26-2024 BETA-HYDROXYBUT 9.5 mmol/L Normal 0.0-0.3 [facility] Comment on above: Performed By: #### L 501.080 #### [facility] [address] [place], [address] Lymphocytes Auto (Unsp spec) [#/Vol]Ordered By: Aba Murguia on 09-26-2024 Lymphocytes (Bld) [#/Vol] 1.92 10*3/uL 0.83-4.51 [facility] Lymphocytes/100 WBC Auto (Un sp spec)Ordered By: Aba Murguia on 09-26-2024 Lymphocytes/100 WBC (Bld) 13.3 % Low 19-41 [facility] MCV (mean corpuscular volume ) determinationOrdered By: Aba Murguia on 09-26-2024 MCV (RBC) [Entitic vol] 95.4 fL 81-99 [facility] Mean corpuscular hemoglobin (MCH) determinationOrdered By: Aba Murguia on 09-26-2024 MCH (RBC) [Entitic mass] 29.5 pg 27.0-32.0 [facility] Mean corpuscular hemoglobin concentration (MCHC) determinationOrdered By: Aba Murguia on 09-26-2024 MCHC (RBC) [Mass/Vol] 30.9 g/dL Low 32-36 [facility] Mean platelet volume determi nationOrdered By: Aba Murguia on 09-26-2024 Platelet mean volume (Bld) [Entitic vol] 9.5 fL 6.2-12.0 [facility] Microscopic analysis of urin e for red blood cells (RBC)Ordered By: Aba Murguia on 09-26-2024 Urine RBC 0-5 SEEN /hpf 0-5 [facility] Monocyte percentageOrdered B y: Aba Murguia on 09-26-2024 Monocytes/100 WBC (Bld) 4.4 % 0-10 [facility] Mucus LM Ql (Urine sed)Order ed By: Aba Murguia on 09-26-2024 Mucus Ql (Urine sed) 0 SEEN /hpf [facility] Neutrophil percentageOrdered By: Aba Murguia on 09-26-2024 Neutrophils/100 WBC (Bld) 68.9 % 47-70 [facility] Nitrite Test strip Ql (U)Ord ered By: Aba Murguia on 09-26-2024 Nitrite Ql (U) Negative Negative [facility] No Panel InformationOrdered By: Aba Murguia on 09-26-2024 Bld Gas Crit Called To/Read Back By Yes [facility] Blood Gas Notified Time 09:59:55 [facility] Blood Gas Notified Whom everardo [facility] Blood Gas Sample Site Not entered [facility] Blood Gas Specimen Type BETHANY [facility] Oxygen Delivery Device Room Air [facility] Beta-Hydroxybutyric Acid mmol/L 9.5 mmol/L 0.0-0.3 [facility] Nucleated red blood cell per centageOrdered By: Aba Murguia on 09-26-2024 Nucleated RBC/100 WBC (Bld) [Ratio] 0 % 0-5 [facility] Oxygen (BldV) [Partial press ure]Ordered By: Aba Murguia on 09-26-2024 Venous Blood Partial Pressure O2 157 mmHg High 25-40 [facility] Platelet countOrdered By: Sabas Murguia on 09-26-2024 Platelets (Bld) [#/Vol] 464 10*3/uL High 150-450 [facility] Platelets LM Ql (Bld)Ordered By: Aba Murguia on 09-26-2024 Platelet Estimate SLT INC ADEQ [facility] Potassium (Unsp spec) [Mass/ Vol]Ordered By: Aba Murguia on 09-26-2024 Potassium [Moles/Vol] 4.7 mmol/L 3.3-5.1 [facility] Protein Test strip Ql (U)Ord ered By: Aba Murguia on 09-26-2024 Protein Ql (U) 100 mg/dl High Negative [facility] RBC Auto (Bld) [#/Vol]Ordere d By: Aba Murguia on 09-26-2024 RBC (Bld) [#/Vol] 4.81 10*6/uL 4.2-5.4 [facility] Serum creatinine measurement (mass/volume)Ordered By: Aba Murguia on 09-26-2024 Creatinine [Mass/Vol] 0.84 mg/dL 0.70-1.20 [facility] Serum glucose measurement (m ass/volume)Ordered By: Aba Murguia on 09-26-2024 Glucose [Mass/Vol] 339 mg/dL High 70-[address] [facility] Serum or plasma calcium xin urement (mass/volume)Ordered By: Aba Murguia on 09-26-2024 Calcium [Mass/Vol] 9.3 mg/dL 7.6-11.[address] [facility] Serum or plasma urea nitroge n measurement (mass/volume)Ordered By: Aba Murguia on 09-26-2024 Urea nitrogen [Mass/Vol] 10 mg/dL 4-19 [facility] Sodium levelOrdered By: Andrzej Murguia on 09-26-2024 Sodium [Moles/Vol] 134 mmol/L 133-[address] [facility] Urinalysis, Completeon 09-26 BACTERIA 1+ /hpf Normal None Seen [facility] Comment on above: Order Comment: CLEAN CATCH Performed By: #### L 400.0001 #### [facility] [address] [place], [address] CAST,FINE GRAN 0-5 SEEN Normal 0-5 [facility] Comment on above: Order Comment: CLEAN CATCH Performed By: #### L 400.0001 #### [facility] [address] [place], [address] RBC 0-5 SEEN Normal 0-5 [facility] Comment on above: Order Comment: CLEAN CATCH Performed By: #### L 400.0001 #### [facility] [address] [place], [address] EPI,SQUAMOUS 5-10 SEEN Normal 5-10 [facility] Comment on above: Order Comment: CLEAN CATCH Performed By: #### L 400.0001 #### [facility] [address] [place], [address] Mucus Ql (Urine sed) 0 SEEN Normal [facility] Comment on above: Order Comment: CLEAN CATCH Performed By: #### L 400.0001 #### [facility] [address] [place], [address] WBC 0 SEEN Normal 0-5 [facility] Comment on above: Order Comment: CLEAN CATCH Performed By: #### L 400.0001 #### [facility] [address] [place], [address] Urine blood detectionOrdered By: Aba Murguia on 09-26-2024 Urine Occult Blood 150 /ul High Negative [facility] Urine clarityOrdered By: Selin Murguia on 09-26-2024 Clarity (U) Clear Clear [facility] Urine color determinationOrd ered By: Aba Murguia on 09-26-2024 Color (U) Yellow Yellow [facility] Urine leukocyte esterase det ection by dipstickOrdered By: Aba Murguia on 09-26-2024 Leukocyte esterase Test strip Ql (U) Negative Negative [facility] Urine pHOrdered By: Aba Murguia on 09-26-2024 pH (U) 5.0 [pH] 5.0 - 8.0 [facility] Urine sediment bacteria coun t by microscopy (number/high power field)Ordered By: Aba Murguia on 09-26-2024 Bacteria LM.HPF (Urine sed) [#/Area] 1 /[HPF] None Seen [facility] Urine specific gravity measu rementOrdered By: Aba Everardo on 09-26-2024 Specific gravity (U) [Rel density] 1.030 1.002-1.030 [facility] Urobilinogen Ql (U)Ordered B y: Aba Everardo on 09-26-2024 Urine Urobilinogen Normal mg/dl Normal [facility] Venous Blood Gason Blood Gas Type BETHANY Normal [facility] Comment on above: Performed By: #### L 501.080 #### [facility] [address] [place], [address] CO2 [Moles/Vol] 6 mmol/L Low 23-33 [facility] Comment on above: Performed By: #### L 501.080 #### [facility] [address] [place], [address] HCO3 (Bld) [Moles/Vol] 5 mmol/L Low 22-26 [facility] Comment on above: Performed By: #### L 501.080 #### [facility] [address] [place], [address] O2 Delivery Dev Room Air [facility] Comment on above: Performed By: #### L 501.080 #### [facility] [address] [place], [address] Read Back By Yes [facility] Comment on above: Performed By: #### L 501.080 #### [facility] [address] [place], [address] Results To [facility] Comment on above: Performed By: #### L 501.080 #### [facility] [address] [place], [address] SITE Not entered Normal [facility] Comment on above: Performed By: #### L 501.080 #### [facility] [address] [place], [id number] Time Given 09:59:55 Normal [facility] Comment on above: Performed By: #### L 501.080 #### [facility] [address] [place], [place], [id number] VBG BE -25 mmol/L Low -1.0-3.5 [facility] Comment on above: Performed By: #### L 501.080 #### [facility] [address] [place], [place], [id number] VBG pCO2 19.2 mmHg Low 41-51 [facility] Comment on above: Performed By: #### L 501.080 #### [facility] [address] [place], [address] VBG pH 7.06 Invalid Interpretation Code 7.32-7.42 [facility] Comment on above: Performed By: #### L 501.080 #### [facility] [address] [place], [address] VBG PO2 157 mmHg High 25-40 [facility] Comment on above: Performed By: #### L 501.080 #### [facility] [address] [place], [address] VBG SO2 99 High 50-70 [facility] Comment on above: Performed By: #### L 501.080 #### [facility] [address] [place], [place], [id number] Venous blood bicarbonate reji surementOrdered By: Aba Murguia on 09-26-2024 HCO3 (Bld) [Moles/Vol] 5 mmol/L Low 22-26 [facility] Venous blood oxygen saturati on measurementOrdered By: Aba Murguia on 09-26-2024 Oxygen saturation in Blood 99 % High 50-70 [facility] White blood cell (WBC) count Ordered By: Aba Murguia on 09-26-2024 WBC (Bld) [#/Vol] 14.5 10*3/uL High 4.4-11.0 [facility] White blood cell countOrdere d By: Aba Murguia on 09-26-2024 Urine WBC 0 SEEN /hpf 0-5 [facility] pH (BldV)Ordered By: Aba Murguia on 09-26-2024 Venous Blood pH 7.06 Low 7.32-7.42 [facility] CBC W/Diff, Automatedon 03-11 PATH REV Reviewed Normal [facility] Comment on above: Result Comment: Neut rophilic leukocytosis. Clinical correlation necessary. Rob Petit M.D. 04/07/24 AMENDED REPORT 04/07/24 1257 PATH REV previously reported as: November mey Performed By: #### L 500.2500 #### [facility] [address] [place], [address] Basic Metabolic Profile (BMP )on 04-05-2024 BUN Normal 7-18 [facility] Comment on above: Order Comment: Call MD with results STAT Result Comment: Dimas elled via OM: Ordered Performed By: #### L 501.080 #### [facility] [address] [place], [address] BUN/CRE Normal 10-20 [facility] Comment on above: Order Comment: Call MD with results STAT Result Comment: Caneric elled via OM: MD Ordered Performed By: #### L 501.080 #### [facility] [address] [place], [address] CA,Total Normal 8.5-10.1 [facility] Comment on above: Order Comment: Call MD with results STAT Result Comment: Dimas elled via OM: Ordered Performed By: #### L 501.080 #### [facility] [address] [place], [address] CL Normal 98-107 [facility] Comment on above: Order Comment: Call MD with results STAT Result Comment: Canc elled via OM: MD Ordered Performed By: #### L 501.080 #### [facility] [address] [place], [address] CO2 Normal 21.0-32.0 [facility] Comment on above: Order Comment: Call MD with results STAT Result Comment: Canc elled via OM: MD Ordered Performed By: #### L 501.080 #### [facility] [address] [place], [address] CREAT,SERUM Normal 0.55-1.02 [facility] Comment on above: Order Comment: Call MD with results STAT Result Comment: Canc elled via OM: MD Ordered Performed By: #### L 501.080 #### [facility] [address] [place], [address] EST GFR Normal >60 [facility] Comment on above: Order Comment: Call MD with results STAT Result Comment: Canc elled via OM: MD Ordered Performed By: #### L 501.080 #### [facility] [address] [place], [address] EST GFR - AA Normal >60 [facility] Comment on above: Order Comment: Call MD with results STAT Result Comment: Canc elled via OM: MD Ordered Performed By: #### L 501.080 #### [facility] [address] [place], [address] GAP Normal 5-15 [facility] Comment on above: Order Comment: Call MD with results STAT Result Comment: Canc elled via OM: MD Ordered Performed By: #### L 501.080 #### [facility] [address] [place], [address] GLU Normal 74-106 [facility] Comment on above: Order Comment: Call MD with results STAT Result Comment: Canc elled via OM: MD Ordered Performed By: #### L 501.080 #### [facility] [address] [place], [address] Potassium Normal 3.5-5.1 [facility] Comment on above: Order Comment: Call MD with results STAT Result Comment: Canc elled via OM: MD Ordered Performed By: #### L 501.080 #### [facility] [address] [place], [address] Basic Metabolic Profile (BMP) Normal 136-145 [facility] Comment on above: Order Comment: Call MD with results STAT Result Comment: Canc elled via OM: MD Ordered Performed By: #### L 501.080 #### [facility] [address] [place], [address] BUN/CRE 10.1 RATIO Normal 10-20 [facility] Comment on above: Performed By: #### L 501.080 #### [facility] [address] [place], [address] CA,Total 8.5 mg/dL Normal 8.5-10.1 [facility] Comment on above: Performed By: #### L 501.080 #### [facility] [address] [place], [address] Chloride [Moles/Vol] 106 mmol/L Normal 98-107 [facility] Comment on above: Performed By: #### L 501.080 #### [facility] [address] [place], [address] CO2 [Moles/Vol] 14.0 mmol/L Low 21.0-32.0 [facility] Comment on above: Performed By: #### L 501.080 #### [facility] [address] [place], [address] Creatinine [Mass/Vol] 0.69 mg/dL Normal 0.55-1.02 [facility] Comment on above: Result Comment: The validity of the calculated GFR GFRAA in patients over 70 years has not been determined. Clinical correlation is essential. Performed By: #### L 501.080 #### [facility] [address] [place], [address] ECRCL 100.26 ml/min Normal [facility] Comment on above: Performed By: #### L 501.080 #### [facility] [address] [place], [address] EST GFR - AA 125 mL/min Normal >60 [facility] Comment on above: Result Comment: Afri can Beninese GFR Calc Performed By: #### L 501.080 #### [facility] [address] [place], [address] GAP 12 Normal 5-15 [facility] Comment on above: Performed By: #### L 501.080 #### [facility] [address] [place], [address] GFR/1.73 sq M.predicted among non-blacks MDRD (S/P/Bld) [Vol rate/Area] 103 mL/min/{1.73_m2} Normal >60 [facility] Comment on above: Result Comment: Non- GFR Calc Performed By: #### L 501.080 #### [facility] [address] [place], [address] Glucose [Mass/Vol] 341 mg/dL High 74-[address] [facility] Comment on above: Result Comment: Gluc ose result greater than or equal to 200 mg/dL suggests DIABETES MELLITUS per A.D.A. criteria. Performed By: #### L 501.080 #### [facility] [address] [place], [address] Potassium [Moles/Vol] 4.8 mmol/L Normal 3.5-5.1 [facility] Comment on above: Performed By: #### L 501.080 #### [facility] [address] [place], [address] Sodium [Moles/Vol] 132 mmol/L Low 136-[address] [facility] Comment on above: Performed By: #### L 501.080 #### [facility] [address] [place], [address] Urea nitrogen [Mass/Vol] 7 mg/dL Normal 7-18 [facility] Comment on above: Performed By: #### L 501.080 #### [facility] [address] [place], [address] BUN Normal 7-18 [facility] Comment on above: Order Comment: Call MD with results STAT Result Comment: Dimas chavezed via OM: MD Ordered Performed By: #### L 501.080 #### [facility] [address] [place], [address] BUN/CRE Normal 10-20 [facility] Comment on above: Order Comment: Call MD with results STAT Result Comment: Dimas roblero via OM: MD Ordered Performed By: #### L 501.080 #### [facility] [address] [place], [address] CA,Total Normal 8.5-10.1 [facility] Comment on above: Order Comment: Call with results STAT Result Comment: Dimas roblero via OM: MD Ordered Performed By: #### L 501.080 #### [facility] [address] [place], [address] CL Normal 98-107 [facility] Comment on above: Order Comment: Call with results STAT Result Comment: Dimas roblero via OM: Ordered Performed By: #### L 501.080 #### [facility] [address] [place], [address] CO2 Normal 21.0-32.0 [facility] Comment on above: Order Comment: Call MD with results STAT Result Comment: Canc elled via OM: MD Ordered Performed By: #### L 501.080 #### [facility] [address] [place], [address] CREAT,SERUM Normal 0.55-1.02 [facility] Comment on above: Order Comment: Call MD with results STAT Result Comment: Canc elled via OM: MD Ordered Performed By: #### L 501.080 #### [facility] [address] [place], [address] EST GFR Normal >60 [facility] Comment on above: Order Comment: Call MD with results STAT Result Comment: Canc elled via OM: MD Ordered Performed By: #### L 501.080 #### [facility] [address] [place], [address] EST GFR - AA Normal >60 [facility] Comment on above: Order Comment: Call MD with results STAT Result Comment: Canc elled via OM: MD Ordered Performed By: #### L 501.080 #### [facility] [address] [place], [address] GAP Normal 5-15 [facility] Comment on above: Order Comment: Call MD with results STAT Result Comment: Canc elled via OM: MD Ordered Performed By: #### L 501.080 #### [facility] [address] [place], [address] GLU Normal 74-106 [facility] Comment on above: Order Comment: Call MD with results STAT Result Comment: Canc elled via OM: MD Ordered Performed By: #### L 501.080 #### [facility] [address] [place], [address] Potassium Normal 3.5-5.1 [facility] Comment on above: Order Comment: Call MD with results STAT Result Comment: Canc elled via OM: MD Ordered Performed By: #### L 501.080 #### [facility] [address] [place], [address] Basic Metabolic Profile (BMP) Normal 136-145 [facility] Comment on above: Order Comment: Call MD with results STAT Result Comment: Dimas roblero via OM: MD Ordered Performed By: #### L 501.080 #### [facility] [address] [place], [address] BUN/CRE 8.4 RATIO Low 10-20 [facility] Comment on above: Performed By: #### L 501.080 #### [facility] [address] [place], [address] CA,Total 8.7 mg/dL Normal 8.5-10.1 [facility] Comment on above: Performed By: #### L 501.080 #### [facility] [address] [place], [address] Chloride [Moles/Vol] 109 mmol/L High 98-107 [facility] Comment on above: Performed By: #### L 501.080 #### [facility] [address] [place], [address] CO2 [Moles/Vol] 15.0 mmol/L Low 21.0-32.0 [facility] Comment on above: Performed By: #### L 501.080 #### [facility] [address] [place], [address] Creatinine [Mass/Vol] 0.60 mg/dL Normal 0.55-1.02 [facility] Comment on above: Result Comment: The validity of the calculated GFR GFRAA in patients over 70 years has not been determined. Clinical correlation is essential. Performed By: #### L 501.080 #### [facility] [address] [place], [address] ECRCL 115.29 ml/min Normal [facility] Comment on above: Performed By: #### L 501.080 #### [facility] [address] [place], [address] EST GFR - AA 147 mL/min Normal >60 [facility] Comment on above: Result Comment: Afri can Beninese GFR Calc Performed By: #### L 501.080 #### [facility] [address] [place], [address] GAP 11 Normal 5-15 [facility] Comment on above: Performed By: #### L 501.080 #### [facility] [address] [place], [address] GFR/1.73 sq M.predicted among non-blacks MDRD (S/P/Bld) [Vol rate/Area] 122 mL/min/{1.73_m2} Normal >60 [facility] Comment on above: Result Comment: Non- GFR Calc Performed By: #### L 501.080 #### [facility] [address] [place], [address] Glucose [Mass/Vol] 200 mg/dL High 74-[address] [facility] Comment on above: Result Comment: Gluc ose result greater than or equal to 200 mg/dL suggests DIABETES MELLITUS per A.D.A. criteria. Performed By: #### L 501.080 #### [facility] [address] [place], [address] Potassium [Moles/Vol] 4.2 mmol/L Normal 3.5-5.1 [facility] Comment on above: Performed By: #### L 501.080 #### [facility] [address] [place], [address] Sodium [Moles/Vol] 135 mmol/L Low 136-[address] [facility] Comment on above: Performed By: #### L 501.080 #### [facility] [address] [place], [address] Urea nitrogen [Mass/Vol] 5 mg/dL Low 7-18 [facility] Comment on above: Performed By: #### L 501.080 #### [facility] [address] [place], [address] BUN Normal 7-18 [facility] Comment on above: Order Comment: Call MD with results STAT Result Comment: Canc elled via OM: MD Ordered Performed By: #### L 100.0100 #### [facility] [address] [place], [address] BUN/CRE Normal 10-20 [facility] Comment on above: Order Comment: Call MD with results STAT Result Comment: Caneric elled via OM: MD Ordered Performed By: #### L 100.0100 #### [facility] [address] [place], [address] CA,Total Normal 8.5-10.1 [facility] Comment on above: Order Comment: Call MD with results STAT Result Comment: Caneric elled via OM: MD Ordered Performed By: #### L 100.0100 #### [facility] [address] [place], [address] CL Normal 98-107 [facility] Comment on above: Order Comment: Call MD with results STAT Result Comment: Dimas elled via OM: MD Ordered Performed By: #### L 100.0100 #### [facility] [address] [place], [address] CO2 Normal 21.0-32.0 [facility] Comment on above: Order Comment: Call MD with results STAT Result Comment: Dimas elled via OM: MD Ordered Performed By: #### L 100.0100 #### [facility] [address] [place], [address] CREAT,SERUM Normal 0.55-1.02 [facility] Comment on above: Order Comment: Call MD with results STAT Result Comment: Canc elled via OM: MD Ordered Performed By: #### L 100.0100 #### [facility] [address] [place], [address] EST GFR Normal >60 [facility] Comment on above: Order Comment: Call MD with results STAT Result Comment: Canc elled via OM: MD Ordered Performed By: #### L 100.0100 #### [facility] [address] [place], [address] EST GFR - AA Normal >60 [facility] Comment on above: Order Comment: Call MD with results STAT Result Comment: Canc elled via OM: MD Ordered Performed By: #### L 100.0100 #### [facility] [address] [place], [address] GAP Normal 5-15 [facility] Comment on above: Order Comment: Call MD with results STAT Result Comment: Canc elled via OM: MD Ordered Performed By: #### L 100.0100 #### [facility] [address] [place], [address] GLU Normal 74-106 [facility] Comment on above: Order Comment: Call MD with results STAT Result Comment: Canc elled via OM: MD Ordered Performed By: #### L 100.0100 #### [facility] [address] [place], [address] Potassium Normal 3.5-5.1 [facility] Comment on above: Order Comment: Call MD with results STAT Result Comment: Canc elled via OM: MD Ordered Performed By: #### L 100.0100 #### [facility] [address] [place], [address] Basic Metabolic Profile (BMP) Normal 136-145 [facility] Comment on above: Order Comment: Call MD with results STAT Result Comment: Canc elled via OM: MD Ordered Performed By: #### L 100.0100 #### [facility] [address] [place], [address] BUN Normal 7-18 [facility] Comment on above: Order Comment: Call MD with results STAT Result Comment: CANC ELLATION ORDER Performed By: #### L 501.080 #### [facility] [address] [place], [address] BUN/CRE Normal 10-20 [facility] Comment on above: Order Comment: Call MD with results STAT Result Comment: CANC ELLATION ORDER Performed By: #### L 501.080 #### [facility] [address] [place], [address] CA,Total Normal 8.5-10.1 [facility] Comment on above: Order Comment: Call MD with results STAT Result Comment: CANC ELLATION ORDER Performed By: #### L 501.080 #### [facility] [address] [place], [address] CL Normal 98-107 [facility] Comment on above: Order Comment: Call MD with results STAT Result Comment: CANC ELLATION ORDER Performed By: #### L 501.080 #### [facility] [address] [place], [address] CO2 Normal 21.0-32.0 [facility] Comment on above: Order Comment: Call MD with results STAT Result Comment: CANC ELLATION ORDER Performed By: #### L 501.080 #### [facility] [address] [place], [address] CREAT,SERUM Normal 0.55-1.02 [facility] Comment on above: Order Comment: Call MD with results STAT Result Comment: CANC ELLATION ORDER Performed By: #### L 501.080 #### [facility] [address] [place], [address] EST GFR Normal >60 [facility] Comment on above: Order Comment: Call MD with results STAT Result Comment: CANC ELLATION ORDER Performed By: #### L 501.080 #### [facility] [address] [place], [address] EST GFR - AA Normal >60 [facility] Comment on above: Order Comment: Call MD with results STAT Result Comment: CANC ELLATION ORDER Performed By: #### L 501.080 #### [facility] [address] [place], [address] GAP Normal 5-15 [facility] Comment on above: Order Comment: Call MD with results STAT Result Comment: CANC ELLATION ORDER Performed By: #### L 501.080 #### [facility] [address] [place], [address] GLU Normal 74-106 [facility] Comment on above: Order Comment: Call MD with results STAT Result Comment: CANC ELLATION ORDER Performed By: #### L 501.080 #### [facility] [address] [place], [address] Potassium Normal 3.5-5.1 [facility] Comment on above: Order Comment: Call MD with results STAT Result Comment: CANC ELLATION ORDER Performed By: #### L 501.080 #### [facility] [address] [place], [address] Basic Metabolic Profile (BMP) Normal 136-145 [facility] Comment on above: Order Comment: Call MD with results STAT Result Comment: CANC ELLATION ORDER Performed By: #### L 501.080 #### [facility] [address] [place], [address] Bedside Glucoseon 04-05-2024 FINGERSTICK GLU 324 mg/dL High 74-106 [facility] Comment on above: Result Comment: KAZ YUN OF PATIENT CARE PER NURSING PROTOCOL Performed By: #### L 501.080 #### [facility] [address] [place], [address] FINGERSTICK GLU 202 mg/dL High 74-106 [facility] Comment on above: Result Comment: KAZ GEMENT OF PATIENT CARE PER NURSING PROTOCOL Performed By: #### L 501.080 #### [facility] [address] [place], [address] FINGERSTICK GLU 97 mg/dL Normal 74-106 [facility] Comment on above: Result Comment: KAZ GEMENT OF PATIENT CARE PER NURSING PROTOCOL Performed By: #### L 501.080 #### [facility] [address] [place], [address] CBC W/Diff, Automatedon 03-10 Lymphocytes/100 WBC (Bld) 13.1 % Low 19-41 [facility] Comment on above: Performed By: #### L 501.080 #### [facility] [address] [place], [address] Neutrophils/100 WBC (Bld) 79.2 % High 47-70 [facility] Comment on above: Performed By: #### L 501.080 #### [facility] [address] [place], [address] Discharge Instructionon 03-10 Discharge Instruction [facility] Medical Records Department [address] [place] [address] Instructions for Home/Discharge Instructions 04/05/24 1333 MR#: [id number] Acct: [id number] Name: BRETT BOBBY Rep #: [id number] : 1990 33 From: Michael Acosta DO [...] DO; Dr. Bryce Julien MD Signed Normal [facility] 12 Lead EKGon 04-04-2024 12 Lead EKG [facility] [address] [place] [address] 12 Lead EKG 04/04/24 0854 MR#: [id number] Acct: [id number] Name: BRETT BOBBY Rep #: [id number] : 1990 33 From: Bob Henriquez MD [...] Borderline ECG Confirmed by CAMERON JENNINGS, BOB ([id number]), multimedia editor JUANJO COVARRUBIAS ([id number]) on 04/07/2024 7:30:04 AM Referred By: Confirmed By:BOB HENRIQUEZ MD 04/07/2430 Date Bob Henriquez MD CC: Dr. Aba Murguia MD; Dr. Meena Flowers DO; Dr. Michael Acosta DO Signed Normal [facility] Acetone Serumon 04-04-2024 ACETONE SERUM Negative Normal [facility]G [facility] [facility] Comment on above: Performed By: #### L 501.080 #### [facility] [address] [place], [address] ACETONE SERUM MODERATE Abnormal NEG [facility] Comment on above: Performed By: #### L 500.2500 #### [facility] [address] [place], [address] Basic Metabolic Profile (BMP )on 04-04-2024 BUN/CRE 8.5 RATIO Low 10-20 [facility] Comment on above: Order Comment: Call with results STAT Performed By: #### L 501.080 #### [facility] [address] [place], [address] CA,Total 8.5 mg/dL Normal 8.5-10.1 [facility] Comment on above: Order Comment: Call with results STAT Performed By: #### L 501.080 #### [facility] [address] [place], [address] Chloride [Moles/Vol] 110 mmol/L High 98-107 [facility] Comment on above: Order Comment: Call with results STAT Performed By: #### L 501.080 #### [facility] [address] [place], [address] CO2 [Moles/Vol] 16.0 mmol/L Low 21.0-32.0 [facility] Comment on above: Order Comment: Call MD with results STAT Performed By: #### L 501.080 #### [facility] [address] [place], [address] Creatinine [Mass/Vol] 0.70 mg/dL Normal 0.55-1.02 [facility] Comment on above: Order Comment: Call MD with results STAT Result Comment: The validity of the calculated GFR GFRAA in patients over 70 years has not been determined. Clinical correlation is essential. Performed By: #### L 501.080 #### [facility] [address] [place], [address] ECRCL 98.36 ml/min Normal [facility] Comment on above: Order Comment: Call MD with results STAT Performed By: #### L 501.080 #### [facility] [address] [place], [address] EST GFR - AA 122 mL/min Normal >60 [facility] Comment on above: Order Comment: Call MD with results STAT Result Comment: Afri can Beninese GFR Calc Performed By: #### L 501.080 #### [facility] [address] [place], [address] GAP 8 Normal 5-15 [facility] Comment on above: Order Comment: Call MD with results STAT Performed By: #### L 501.080 #### [facility] [address] [place], [address] GFR/1.73 sq M.predicted among non-blacks MDRD (S/P/Bld) [Vol rate/Area] 101 mL/min/{1.73_m2} Normal >60 [facility] Comment on above: Order Comment: Call MD with results STAT Result Comment: Non- GFR Calc Performed By: #### L 501.080 #### [facility] [address] [place], [address] Glucose [Mass/Vol] 163 mg/dL High 74-[address] [facility] Comment on above: Order Comment: Call MD with results STAT Result Comment: Fast ing Glucose result greater than or equal to 126 mg/dL suggests DIABETES MELLITUS per A.D.A. criteria. Performed By: #### L 501.080 #### [facility] [address] [place], [address] Potassium [Moles/Vol] 3.6 mmol/L Normal 3.5-5.1 [facility] Comment on above: Order Comment: Call MD with results STAT Performed By: #### L 501.080 #### [facility] [address] [place], [address] Sodium [Moles/Vol] 134 mmol/L Low 136-[address] [facility] Comment on above: Order Comment: Call MD with results STAT Performed By: #### L 501.080 #### [facility] [address] [place], [address] Urea nitrogen [Mass/Vol] 6 mg/dL Low 7-18 [facility] Comment on above: Order Comment: Call MD with results STAT Performed By: #### L 501.080 #### [facility] [address] [place], [address] BUN/CRE 7.3 RATIO Low 10-20 [facility] Comment on above: Order Comment: Call MD with results STAT Performed By: #### L 501.080 #### [facility] [address] [place], [address] CA,Total 8.6 mg/dL Normal 8.5-10.1 [facility] Comment on above: Order Comment: Call MD with results STAT Performed By: #### L 501.080 #### [facility] [address] [place], [address] Chloride [Moles/Vol] 109 mmol/L High 98-107 [facility] Comment on above: Order Comment: Call MD with results STAT Performed By: #### L 501.080 #### [facility] [address] [place], [address] CO2 [Moles/Vol] 13.0 mmol/L Low 21.0-32.0 [facility] Comment on above: Order Comment: Call MD with results STAT Performed By: #### L 501.080 #### [facility] [address] [place], [address] Creatinine [Mass/Vol] 0.83 mg/dL Normal 0.55-1.02 [facility] Comment on above: Order Comment: Call MD with results STAT Result Comment: The validity of the calculated GFR GFRAA in patients over 70 years has not been determined. Clinical correlation is essential. Performed By: #### L 501.080 #### [facility] [address] [place], [address] ECRCL 82.96 ml/min Normal [facility] Comment on above: Order Comment: Call MD with results STAT Performed By: #### L 501.080 #### [facility] [address] [place], [address] EST GFR - AA 101 mL/min Normal >60 [facility] Comment on above: Order Comment: Call MD with results STAT Result Comment: Afri can Beninese GFR Calc Performed By: #### L 501.080 #### [facility] [address] [place], [address] GAP 11 Normal 5-15 [facility] Comment on above: Order Comment: Call MD with results STAT Performed By: #### L 501.080 #### [facility] [address] [place], [address] GFR/1.73 sq M.predicted among non-blacks MDRD (S/P/Bld) [Vol rate/Area] 84 mL/min/{1.73_m2} Normal >60 [facility] Comment on above: Order Comment: Call MD with results STAT Result Comment: Non- GFR Calc Performed By: #### L 501.080 #### [facility] [address] [place], [address] Glucose [Mass/Vol] 237 mg/dL High 74-[address] [facility] Comment on above: Order Comment: Call MD with results STAT Result Comment: Gluc ose result greater than or equal to 200 mg/dL suggests DIABETES MELLITUS per A.D.A. criteria. Performed By: #### L 501.080 #### [facility] [address] [place], [address] Potassium [Moles/Vol] 4.1 mmol/L Normal 3.5-5.1 [facility] Comment on above: Order Comment: Call MD with results STAT Performed By: #### L 501.080 #### [facility] [address] [place], [address] Sodium [Moles/Vol] 132 mmol/L Low 136-[address] [facility] Comment on above: Order Comment: Call MD with results STAT Performed By: #### L 501.080 #### [facility] [address] [place], [address] Urea nitrogen [Mass/Vol] 6 mg/dL Low 7-18 [facility] Comment on above: Order Comment: Call MD with results STAT Performed By: #### L 501.080 #### [facility] [address] [place], [address] BUN/CRE 8.8 RATIO Low 10-20 [facility] Comment on above: Performed By: #### L 501.9985 #### [facility] [address] [place], [address] CA,Total 8.4 mg/dL Low 8.5-10.1 [facility] Comment on above: Performed By: #### L 501.9985 #### [facility] [address] [place], [address] Chloride [Moles/Vol] 109 mmol/L High 98-107 [facility] Comment on above: Performed By: #### L 501.9985 #### [facility] [address] [place], [address] CO2 [Moles/Vol] 8.0 mmol/L Invalid Interpretation Code 21.0-32.0 [facility] Comment on above: Result Comment: Crit ical Result(s) Called at: 15:05:58 04/04/2024 by: Emily Cortez to Renee Sosa. Results read back by same. Performed By: #### L 501.9985 #### [facility] [address] [place], [address] Creatinine [Mass/Vol] 0.80 mg/dL Normal 0.55-1.02 [facility] Comment on above: Result Comment: The validity of the calculated GFR GFRAA in patients over 70 years has not been determined. Clinical correlation is essential. Performed By: #### L 501.9985 #### [facility] [address] [place], [address] ECRCL 86.07 ml/min Normal [facility] Comment on above: Performed By: #### L 501.9985 #### [facility] [address] [place], [address] EST GFR - AA 106 mL/min Normal >60 [facility] Comment on above: Result Comment: Afri can Beninese GFR Calc Performed By: #### L 501.9985 #### [facility] [address] [place], [address] GAP 16 High 5-15 [facility] Comment on above: Performed By: #### L 501.9985 #### [facility] [address] [place], [address] GFR/1.73 sq M.predicted among non-blacks MDRD (S/P/Bld) [Vol rate/Area] 87 mL/min/{1.73_m2} Normal >60 [facility] Comment on above: Result Comment: Non- GFR Calc Performed By: #### L 501.9985 #### [facility] [address] [place], [address] Glucose [Mass/Vol] 248 mg/dL High 74-[address] [facility] Comment on above: Result Comment: Gluc ose result greater than or equal to 200 mg/dL suggests DIABETES MELLITUS per A.D.A. criteria. Performed By: #### L 501.9985 #### [facility] [address] [place], [address] Potassium [Moles/Vol] 4.8 mmol/L Normal 3.5-5.1 [facility] Comment on above: Performed By: #### L 501.9985 #### [facility] [address] [place], [address] Sodium [Moles/Vol] 133 mmol/L Low 136-[address] [facility] Comment on above: Performed By: #### L 501.9985 #### [facility] [address] [place], [address] Urea nitrogen [Mass/Vol] 7 mg/dL Normal 7-18 [facility] Comment on above: Performed By: #### L 501.9985 #### [facility] [address] [place], [address] BUN Normal 7-18 [facility] Comment on above: Order Comment: Call MD with results STAT Result Comment: Dimas roblero via OM: Ordered Performed By: #### L 501.080 #### [facility] [address] [place], [address] BUN/CRE Normal 10-20 [facility] Comment on above: Order Comment: Call MD with results STAT Result Comment: Canc elled via OM: MD Ordered Performed By: #### L 501.080 #### [facility] [address] [place], [address] CA,Total Normal 8.5-10.1 [facility] Comment on above: Order Comment: Call MD with results STAT Result Comment: Canc elled via OM: MD Ordered Performed By: #### L 501.080 #### [facility] [address] [place], [address] CL Normal 98-107 [facility] Comment on above: Order Comment: Call with results STAT Result Comment: Canc elled via OM: MD Ordered Performed By: #### L 501.080 #### [facility] [address] [place], [address] CO2 Normal 21.0-32.0 [facility] Comment on above: Order Comment: Call MD with results STAT Result Comment: Canc elled via OM: MD Ordered Performed By: #### L 501.080 #### [facility] [address] [place], [address] CREAT,SERUM Normal 0.55-1.02 [facility] Comment on above: Order Comment: Call with results STAT Result Comment: Canc elled via OM: MD Ordered Performed By: #### L 501.080 #### [facility] [address] [place], [address] EST GFR Normal >60 [facility] Comment on above: Order Comment: Call with results STAT Result Comment: Canc elled via OM: MD Ordered Performed By: #### L 501.080 #### [facility] [address] [place], [address] EST GFR - AA Normal >60 [facility] Comment on above: Order Comment: Call with results STAT Result Comment: Canc elled via OM: MD Ordered Performed By: #### L 501.080 #### [facility] [address] [place], [address] GAP Normal 5-15 [facility] Comment on above: Order Comment: Call MD with results STAT Result Comment: Canc elled via OM: MD Ordered Performed By: #### L 501.080 #### [facility] [address] [place], [address] GLU Normal 74-106 [facility] Comment on above: Order Comment: Call MD with results STAT Result Comment: Canc elled via OM: MD Ordered Performed By: #### L 501.080 #### [facility] [address] [place], [address] Potassium Normal 3.5-5.1 [facility] Comment on above: Order Comment: Call MD with results STAT Result Comment: Canc elled via OM: MD Ordered Performed By: #### L 501.080 #### [facility] [address] [place], [address] Basic Metabolic Profile (BMP) Normal 136-145 [facility] Comment on above: Order Comment: Call MD with results STAT Result Comment: Canc elled via OM: MD Ordered Performed By: #### L 501.080 #### [facility] [address] [place], [address] Bedside Glucoseon 04-04-2024 FINGERSTICK GLU 162 mg/dL High 74-106 [facility] Comment on above: Result Comment: KAZ GEMENT OF PATIENT CARE PER NURSING PROTOCOL Performed By: #### L 501.080 #### [facility] [address] [place], [address] FINGERSTICK GLU 194 mg/dL High 74-106 [facility] Comment on above: Result Comment: KAZ GEMENT OF PATIENT CARE PER NURSING PROTOCOL Performed By: #### L 501.080 #### [facility] [address] [place], [address] FINGERSTICK GLU 230 mg/dL High 74-106 [facility] Comment on above: Result Comment: KAZ GEMENT OF PATIENT CARE PER NURSING PROTOCOL Performed By: #### L 100.0100 #### [facility] [address] [place], [address] FINGERSTICK GLU 235 mg/dL High 74-106 [facility] Comment on above: Result Comment: KAZ GEMENT OF PATIENT CARE PER NURSING PROTOCOL Performed By: #### L 501.080 #### [facility] [address] [place], [address] FINGERSTICK GLU 243 mg/dL High -106 [facility] Comment on above: Result Comment: KAZ GEMENT OF PATIENT CARE PER NURSING PROTOCOL Performed By: #### L 501.080 #### [facility] [address] [place], [address] FINGERSTICK GLU 240 mg/dL High 74-106 [facility] Comment on above: Result Comment: KAZ GEMENT OF PATIENT CARE PER NURSING PROTOCOL Performed By: #### L 501.9985 #### [facility] [address] [place], [address] FINGERSTICK GLU 231 mg/dL High 74-106 [facility] Comment on above: Result Comment: KAZ GEMENT OF PATIENT CARE PER NURSING PROTOCOL Performed By: #### L 501.9985 #### [facility] [address] [place], [address] FINGERSTICK GLU 271 mg/dL High 74-106 [facility] Comment on above: Result Comment: KAZ GEMENT OF PATIENT CARE PER NURSING PROTOCOL Performed By: #### L 500.2500 #### [facility] [address] [place], [address] FINGERSTICK GLU 339 mg/dL High 74-106 [facility] Comment on above: Result Comment: KAZ GEMENT OF PATIENT CARE PER NURSING PROTOCOL Performed By: #### L 500.2500 #### [facility] [address] [place], [address] FINGERSTICK GLU 484 mg/dL Invalid Interpretation Code 74-106 [facility] Comment on above: Result Comment: Dr Lima aguilera Followed MANAGEMENT OF PATIENT CARE PER NURSING PROTOCOL Performed By: #### L 500.2500 #### [facility] [address] [place], [address] FINGERSTICK GLU 420 mg/dL High 74-106 [facility] Comment on above: Result Comment: KAZ GEMENT OF PATIENT CARE PER NURSING PROTOCOL Performed By: #### L 501.9985 #### [facility] [address] [place], [address] Chest 1 View (Portable)on Chest 1 View (Portable) [facility] Services [address] [place] [address] Chest 1 View (Portable) MR#: [id number] Acct: [id number] Name: BRETT BOBBY Rep #: [id number] : 1990 F 33 From: Danny diaz MD PCP: Dr. Meena Flowers, DO Status: REG ER Study: Chest 1 View (Portable) Date of Exam: 04/04/24 Exam# [id number] Ordering Dr: Aba Murguia MD [id number] STUDY: X-RAY CHEST REASON FOR EXAM: Female, [...] Aba Murguia MD; Dr. Meena Flowers DO Vehicle Return Associate: Signed Normal [facility] Comprehensive Metabolic Prof ilon 04-04-2024 Albumin [Mass/Vol] 4.4 g/dL Normal 3.2-5.[address] [facility] Comment on above: Performed By: #### L 500.2500 #### [facility] [address] [place], [address] Albumin/Globulin [Mass ratio] 0.8 {ratio} Low 0.9-2.4 [facility] Comment on above: Performed By: #### L 500.2500 #### [facility] [address] [place], [address] ALK P 122 U/L High 45-117 [facility] Comment on above: Performed By: #### L 500.2500 #### [facility] [address] [place], [address] ALT [Catalytic activity/Vol] 17 U/L Normal 13-56 [facility] Comment on above: Performed By: #### L 500.2500 #### [facility] [address] [place], [address] AST [Catalytic activity/Vol] 15 U/L Normal 15-37 [facility] Comment on above: Performed By: #### L 500.2500 #### [facility] [address] [place], [address] Bilirubin [Mass/Vol] 0.60 mg/dL Normal 0.20-1.00 [facility] Comment on above: Result Comment: For patients on eltrombopag therapy, use of Dimension [place] TBIL is not recommended. Performed By: #### L 500.2500 #### [facility] [address] [place], [address] BUN/CRE 9.7 RATIO Low 10-20 [facility] Comment on above: Performed By: #### L 500.2500 #### [facility] [address] [place], [address] CA,Total 9.8 mg/dL Normal 8.5-10.1 [facility] Comment on above: Performed By: #### L 500.2500 #### [facility] [address] [place], [address] Chloride [Moles/Vol] 95 mmol/L Low 98-107 [facility] Comment on above: Performed By: #### L 500.2500 #### [facility] [address] [place], [address] CO2 [Moles/Vol] 7.0 mmol/L Invalid Interpretation Code 21.0-32.0 [facility] Comment on above: Result Comment: Crit ical Result(s) Called at: 10:19:24 04/04/2024 by: Emily Cortez to Porsche Blackburn. Results read back by same. Performed By: #### L 500.2500 #### [facility] [address] [place], [address] Creatinine [Mass/Vol] 1.13 mg/dL High 0.55-1.02 [facility] Comment on above: Result Comment: The validity of the calculated GFR GFRAA in patients over 70 years has not been determined. Clinical correlation is essential. Performed By: #### L 500.2500 #### [facility] [address] [place], [address] ECRCL 60.29 ml/min Normal [facility] Comment on above: Performed By: #### L 500.2500 #### [facility] [address] [place], [address] EST GFR - AA 71 mL/min Normal >60 [facility] Comment on above: Result Comment: Afri can Beninese GFR Calc Performed By: #### L 500.2500 #### [facility] [address] [place], [address] GAP 25 High 5-15 [facility] Comment on above: Performed By: #### L 500.2500 #### [facility] [address] [place], [address] GFR/1.73 sq M.predicted among non-blacks MDRD (S/P/Bld) [Vol rate/Area] 58 mL/min/{1.73_m2} Low >60 [facility] Comment on above: Result Comment: Non- GFR Calc Performed By: #### L 500.2500 #### [facility] [address] [place], [address] Globulin (S) [Mass/Vol] 5.5 g/dL High 2.2-4.2 [facility] Comment on above: Performed By: #### L 500.2500 #### [facility] [address] [place], [address] Glucose [Mass/Vol] 452 mg/dL Invalid Interpretation Code 74-106 [facility] Comment on above: Result Comment: Crit ical Result(s) Called at: 10:19:24 04/04/2024 by: Emily Cortez to Porsche Blackburn. Results read back by same. Glucose result greater than or equal to 200 mg/dL suggests DIABETES MELLITUS per A.D.A. criteria. Performed By: #### L 500.2500 #### [facility] [address] [place], [address] Potassium [Moles/Vol] 6.4 mmol/L Invalid Interpretation Code 3.5-5.1 [facility] Comment on above: Result Comment: Paul ical Result(s) Called at: 10:19:24 04/04/2024 by: Emily Cortez to Porsche Blackburn. Results read back by same. Performed By: #### L 500.2500 #### [facility] [address] [place], [address] Sodium [Moles/Vol] 127 mmol/L Low 136-[address] [facility] Comment on above: Performed By: #### L 500.2500 #### [facility] [address] [place], [address] T PROT 9.9 g/dL High 6.4-8.2 [facility] Comment on above: Performed By: #### L 500.2500 #### [facility] [address] [place], [address] Urea nitrogen [Mass/Vol] 11 mg/dL Normal 7-18 [facility] Comment on above: Performed By: #### L 500.2500 #### [facility] [address] [place], [address] Emergency Department Summary on 04-04-2024 Emergency Department Summary [facility] Medical Records Department [address] [place] [address] Emergency Department Summary 04/04/24 MR#: [id number] Acct: [id number] Name: BRETT BOBBY Rep #: [id number] : 1990 33 From: Aba Murguia MD [...] or lesions (more content not included)... Normal [facility] H AND P Exam - Hospitaliston 04-04-2024 H&P Exam - Hospitalist [facility] Medical Records Department [address] [place] [address] H P Exam - Hospitalist 04/04/24 1753 MR#: [id number] Acct: [id number] Name: BRETT BOBBY Rep #: [id number] : 1990 33 From: Bryce Julien MD PCP: Dr. Meena Flowers, DO Status:ADM IN Location: ICU [id number] HPI - General General Date of Admission: 04/04/24 HPI Narrative BRETT BBOBY, is a 33 F who presents to [...] what has precipitated this episode of DKA. [facility] Medical History Tobacco abuse Stage 3a chronic [...] Air 03/10 (more content not included)... Normal [facility] ,Urineon 04-04-2024 Beta HCG ( test) Ql (U) Negative Normal [facility] Comment on above: Order Comment: CLEAN CATCH Result Comment: Very dilute urine specimens, as indicated by a low specific gravity, may not contain insurance healthcare representative levels of hCG. If is still suspected, a first morning urine specimen should be collected 48 hours later and tested. Performed By: #### L [id number] #### [facility] [address] [place], [address] Urinalysis, Completeon 04-04 EPI,SQUAMOUS 0-5 SEEN Normal 5-10 [facility] Comment on above: Order Comment: CLEAN CATCH Performed By: #### L [id number] #### [facility] [address] [place], [address] BACTERIA 0 SEEN Normal None Seen [facility] Comment on above: Order Comment: CLEAN CATCH Performed By: #### L [id number] #### [facility] [address] [place], [address] Mucus Ql (Urine sed) 0 SEEN Normal [facility] Comment on above: Order Comment: CLEAN CATCH Performed By: #### L [id number] #### [facility] [address] [place], [address] RBC 0 SEEN Normal 0-5 [facility] Comment on above: Order Comment: CLEAN CATCH Performed By: #### L [id number] #### [facility] [address] [place], [address] WBC 0 SEEN Normal 0-5 [facility] Comment on above: Order Comment: CLEAN CATCH Performed By: #### L [id number] #### [facility] [address] [place], [address] Venous Blood Gason 4 Blood Gas Type BETHANY Normal [facility] Comment on above: Performed By: #### L [id number] #### [facility] [address] [place], [address] CO2 [Moles/Vol] 7 mmol/L Low 23-33 [facility] Comment on above: Performed By: #### L [id number] #### [facility] [address] [place], [address] HCO3 (Bld) [Moles/Vol] 6 mmol/L Low 22-26 [facility] Comment on above: Performed By: #### L [id number] #### [facility] [address] [place], [address] O2 Delivery Dev Room Air [facility] Comment on above: Performed By: #### L [id number] #### [facility] [address] [place], [address] Read Back By Yes [facility] Comment on above: Performed By: #### L [id number] #### [facility] [address] [place], [address] Results To everardo [facility] Comment on above: Performed By: #### L [id number] #### [facility] [address] [place], [address] SITE Not entered [facility] Comment on above: Performed By: #### L [id number] #### [facility] [address] [place], [address] Time Given 09:46:03 [facility] Comment on above: Performed By: #### L [id number] #### [facility] [address] [place], [address] VBG BE -26 mmol/L Low -1.0-3.5 [facility] Comment on above: Performed By: #### L [id number] #### [facility] [address] [place], [address] VBG pCO2 24.1 mmHg Low 41-51 [facility] Comment on above: Performed By: #### L [id number] #### [facility] [address] [place], [address] VBG pH 6.99 Invalid Interpretation Code 7.32-7.42 [facility] Comment on above: Performed By: #### L [id number] #### [facility] [address] [place], [place], [id number] VBG PO2 45 mmHg High 25-40 [facility] Comment on above: Performed By: #### L [id number] #### [facility] [address] [place], [place], [id number] VBG SO2 57 Normal 50-70 [facility] Comment on above: Performed By: #### L [id number] #### [facility] [address] [place], [place], [id number] Absolute lymphocyte countOrd ered By: Risa Gatica on 09-24-2023 Lymphocytes Auto (Unsp spec) [#/Vol] 1.34 10*3/uL 0.83-4.51 [facility] Automated lymphocyte count a s percentage of total leukocytesOrdered By: Risa Gatica on 09-24-2023 Lymphocytes/100 WBC Auto (Unsp spec) 14.7 % 19-41 [facility] Basophil percentageOrdered B y: Risa Gatica on 09-24-2023 Basophil percentage 10-25 SEEN /hpf 0-5 [facility] Basophils/100 WBC (Bld) 0.6 % 0-1 [facility] Chloride [Moles/Vol] 100 mmol/L 98-107 [facility] Eosinophils/100 WBC (Bld) 0.0 % 0-5 [facility] Glucose [Mass/Vol] 280 mg/dL 74-[address] [facility] Comment on above: Glucose result great er than or equal to 200 mg/dLsuggests DIABETES MELLITUS per A.D.A. criteria. Hemoglobin (Bld) [Mass/Vol] 13.3 g/dL 12.0-15.0 [facility] Monocytes/100 WBC (Bld) 5.7 % 0-10 [facility] Neutrophils (Bld) [#/Vol] 7.1 10*3/uL 2.0-7.7 [facility] Neutrophils/100 WBC (Bld) 78.6 % 47-70 [facility] Potassium [Moles/Vol] 3.9 mmol/L 3.5-5.1 [facility] Sodium [Moles/Vol] 132 mmol/L 136-[address] [facility] WBC (Bld) [#/Vol] 9.1 10*3/uL 4.4-11.[address] [facility] Bilirubin Test strip Ql (U)O rdered By: Risa Gatica on 09-24-2023 Bilirubin Ql (U) Negative Negative [facility] Determination of erythrocyte mean corpuscular volume (MCV)Ordered By: Risa Gatica on 09-24-2023 MCV (RBC) [Entitic vol] 89.0 fL 81-99 [facility] Erythrocyte distribution wid th ratioOrdered By: Risa Gatica on 09-24-2023 Erythrocyte distribution width (RBC) [Ratio] 13.2 % 11.6-14.6 [facility] Erythrocyte distribution wid th standard deviationOrdered By: Risa Gatica on 09-24-2023 Erythrocyte distribution width (RBC) [Entitic vol] 43.1 fL 35.1-43.9 [facility] Hematocrit Auto (Bld) [Volum e fraction]Ordered By: Risa Gatica on 09-24-2023 Hematocrit (Bld) [Volume fraction] 40.5 % 37-47 [facility] Immature granulocytes/100 WB C Auto (Bld)Ordered By: Risa Gatica on 09-24-2023 Immature granulocytes/100 WBC (Bld) 0.400 % 0.0-0.9 [facility] Comment on above: IG% - Immature Granu locytes (promyelocytes, myelocytes and metamyelocytes) > 1% indicates that a LEFT SHIFT is Present. Ketones Test strip Ql (U)Ord ered By: Risa Gatica on 09-24-2023 Ketones Ql (U) 150 mg/dl Negative [facility] Comment on above: CRITICAL VALUE *HCRI TICAL VALUE VERIFIED. CALLED TO MIRELLA VILLALPANDO (ER)09/24/23 1330 Harjit Whitley.RESULTS READ BACK BY SAME. Laboratory - Chemistry and C hemistry - challengeOrdered By: Risa Gatica on 09-24-2023 CO2 [Moles/Vol] 21.0 mmol/L 21.0-32.0 [facility] Urea nitrogen/Creatinine [Mass ratio] 14.6 mg/mg 10-20 [facility] - Hematology and Cell countsOrdered By: Risa Gatica on 09-24-2023 MCH (RBC) [Entitic mass] 29.2 pg 27.0-32.0 [facility] MCHC (RBC) [Mass/Vol] 32.8 g/dL 32-36 [facility] Nucleated RBC/100 WBC (Bld) [Ratio] 0 % 0-5 [facility] Platelet mean volume (Bld) [Entitic vol] 9.8 fL 6.2-12.0 [facility] Platelets (Bld) [#/Vol] 369 10*3/uL 150-450 [facility] Mucus LM Ql (Urine sed)Order ed By: Risa Gatica on 09-24-2023 Mucus Ql (Urine sed) 0 SEEN /hpf [facility] Nitrite Test strip Ql (U)Ord ered By: Risa Gatica on 09-24-2023 Nitrite Ql (U) Positive Negative [facility] No Panel InformationOrdered By: Risa Gatica on 09-24-2023 Urine RBC 0-5 SEEN /hpf 0-5 [facility] Estimated Creatinine Clearance Calc 106.73 ml/min [facility] Estimated GFR (MDRD) Amer 127 mL/min >60 [facility] Comment on above: GFR Calc Estimated GFR (MDRD) Non-Af Amer 105 mL/min >60 [facility] Comment on above: Non- GFR Calc Troponin I High Sensitivity 3 pg/mL 3.0-54.0 [facility] Comment on above: Please Note: New [place] t Units and Gender Specific Reference Ranges. For more information see Policy Stat Procedure [place] High Sensitivity Troponin (TNIH) and attachments. Protein Test strip Ql (U)Ord ered By: Risa Gatica on 09-24-2023 Protein Ql (U) 30 mg/dl Negative [facility] RBC Auto (Bld) [#/Vol]Ordere d By: Risa Gatica on 09-24-2023 RBC (Bld) [#/Vol] 4.55 10*6/uL 4.2-5.4 [facility] Serum or plasma acetone xin urement (mass/volume)Ordered By: Risa Gatica on 09-24-2023 Acetone [Mass/Vol] Negative NEG [facility] Serum or plasma calcium xin urement (mass/volume)Ordered By: Risa Gatica on 09-24-2023 Calcium [Mass/Vol] 9.3 mg/dL 8.5-10.[address] [facility] Serum or plasma creatinine m easurement (mass/volume)Ordered By: Risa Gatica on 09-24-2023 Creatinine [Mass/Vol] 0.68 mg/dL 0.55-1.02 [facility] Comment on above: The validity of the calculated GFR & GFRAA in patients over 70 years has not been determined. Clinical correlation is essential. Serum or plasma urea nitroge n measurement (mass/volume)Ordered By: Risa Gatiac on 09-24-2023 Urea nitrogen [Mass/Vol] 10 mg/dL 7-18 [facility] Squamous epithelial cells de tection in urine sediment by light microscopyOrdered By: Risa Gatica on 09-24-2023 Epithelial cells.squamous LM Ql (Urine sed) 0-5 SEEN /hpf 5-10 [facility] Thin prep Papanicolaou smear with manual screeningOrdered By: Risa Gatica on 09-24-2023 Thin prep Papanicolaou smear with manual screening 265 mg/dL 74-106 [facility] Comment on above: MANAGEMENT OF PATIEN T CARE PER NURSING PROTOCOL Thin prep Papanicolaou smear with manual screening 11 5-15 [facility] Urine blood detectionOrdered By: Risa Gatica on 09-24-2023 RBC Ql (U) 10 /ul Negative [facility] Urine clarityOrdered By: Giselle Gatica on 09-24-2023 Clarity (U) Sl. Cloudy Clear [facility] Urine color determinationOrd ered By: Risa Gatica on 09-24-2023 Color (U) Yellow Yellow [facility] Urine glucose detectionOrder ed By: Risa Gatica on 09-24-2023 Glucose Ql (U) 1000 mg/dl Normal [facility] Urine leukocyte esterase det ection by dipstickOrdered By: Risa Gatica on 09-24-2023 Leukocyte esterase Test strip Ql (U) 100 /ul Negative [facility] Urine pHOrdered By: Risa Gatica on 09-24-2023 pH (U) 6.0 [pH] 5.0 - 8.0 [facility] Urine sediment bacteria coun t by microscopy (number/high power field)Ordered By: Risa Gatica on 09-24-2023 Bacteria LM.HPF (Urine sed) [#/Area] 1 /[HPF] None Seen [facility] Urine specific gravity measu rementOrdered By: Risa Gatica on 09-24-2023 Specific gravity (U) [Rel density] 1.010 1.002-1.030 [facility] Urine urobilinogen measureme ntOrdered By: Risa Gatica on 09-24-2023 Urobilinogen Ql (U) Normal mg/dl Normal [facility] Absolute lymphocyte countOrd ered By: David Miramontes on 05-26-2023 Lymphocytes Auto (Unsp spec) [#/Vol] 1.50 10*3/uL 0.83-4.51 [facility] Basophil percentageOrdered B y: David Miramontes on 05-26-2023 Chloride [Moles/Vol] 112 mmol/L 98-107 [facility] Glucose [Mass/Vol] 297 mg/dL 74-[address] [facility] Comment on above: Glucose result great er than or equal to 200 mg/dLsuggests DIABETES MELLITUS per A.D.A. criteria. Potassium [Moles/Vol] 4.1 mmol/L 3.5-5.1 [facility] Sodium [Moles/Vol] 137 mmol/L 136-[address] [facility] Basophil percentage 1.6 mg/dL 2.5-4.9 [facility] Basophils/100 WBC (Bld) 1.0 % 0-1 [facility] Eosinophils/100 WBC (Bld) 1.4 % 0-5 [facility] Neutrophils (Bld) [#/Vol] 5.2 10*3/uL 2.0-7.7 [facility] Neutrophils/100 WBC (Bld) 67.2 % 47-70 [facility] WBC (Bld) [#/Vol] 7.7 10*3/uL 4.4-11.[address] [facility] Blood erythrocytes count (nu mber/volume)Ordered By: David Miramontes on 05-26-2023 RBC (Bld) [#/Vol] 4.00 10*6/uL 4.2-5.4 [facility] Blood hemoglobin measurement (mass/volume)Ordered By: David Miramontes on 05-26-2023 Hemoglobin (Bld) [Mass/Vol] 12.7 g/dL 12.0-15.0 [facility] Blood lymphocytes/100 leukoc ytesOrdered By: David Miramontes on 05-26-2023 Lymphocytes/100 WBC (Bld) 19.4 % 19-41 [facility] Blood monocytes/100 leukocyt esOrdered By: David Miramontes on 05-26-2023 Monocytes/100 WBC (Bld) 10.6 % 0-10 [facility] Blood platelet mean volumeOr dered By: David Miramontes on 05-26-2023 Platelet mean volume (Bld) [Entitic vol] 9.8 fL 6.2-12.0 [facility] Determination of erythrocyte mean corpuscular volume (MCV)Ordered By: David Miramontes on 05-26-2023 MCV (RBC) [Entitic vol] 98.8 fL 81-99 [facility] Glucose Glucometer (dC) [M ass/Vol]Ordered By: Douglas Serrano on 05-26-2023 Glucose [Mass/Vol] 153 mg/dL 74-[address] [facility] Comment on above: MANAGEMENT OF PATIEN T CARE PER NURSING PROTOCOL Hematocrit Auto (Bld) [Volum e fraction]Ordered By: David Miramontes on 05-26-2023 Hematocrit (Bld) [Volume fraction] 39.5 % 37-47 [facility] - Chemistry and C hemistry - challengeOrdered By: David Miramontes on 05-26-2023 CO2 [Moles/Vol] 14.0 mmol/L 21.0-32.0 [facility] Urea nitrogen/Creatinine [Mass ratio] 2.9 mg/mg 10-20 [facility] Magnesium [Mass/Vol] 1.7 mg/dL 1.6-2.6 [facility] - Hematology and Cell countsOrdered By: David Miramontes on 05-26-2023 Erythrocyte distribution width (RBC) [Entitic vol] 45.2 fL 35.1-43.9 [facility] Erythrocyte distribution width (RBC) [Ratio] 12.5 % 11.6-14.6 [facility] Immature granulocytes/100 WBC (Bld) 0.400 % 0.0-0.9 [facility] Comment on above: IG% - Immature Granu locytes (promyelocytes, myelocytes and metamyelocytes) > 1% indicates that a LEFT SHIFT is Present. MCH (RBC) [Entitic mass] 31.8 pg 27.0-32.0 [facility] Nucleated RBC/100 WBC (Bld) [Ratio] 0 % 0-5 [facility] MCHC Auto (RBC) [Mass/Vol]Or dered By: David Miramontes on 05-26-2023 MCHC (RBC) [Mass/Vol] 32.2 g/dL 32-36 [facility] No Panel InformationOrdered By: David Miramontes on 05-26-2023 Estimated Creatinine Clearance Calc 87.51 ml/min [facility] Estimated GFR (MDRD) Amer 126 mL/min >60 [facility] Comment on above: GFR Calc Estimated GFR (MDRD) Non-Af Amer 104 mL/min >60 [facility] Comment on above: Non- GFR Calc Platelets bldOrdered By: Tom Miramontes on 05-26-2023 Platelets (Bld) [#/Vol] 284 10*3/uL 150-450 [facility] Serum or plasma calcium xin urement (mass/volume)Ordered By: David Miramontes on 05-26-2023 Calcium [Mass/Vol] 8.2 mg/dL 8.5-10.[address] [facility] Serum or plasma creatinine m easurement (mass/volume)Ordered By: David Miramontes on 05-26-2023 Creatinine [Mass/Vol] 0.69 mg/dL 0.55-1.02 [facility] Comment on above: The validity of the calculated GFR & GFRAA in patients over 70 years has not been determined. Clinical correlation is essential. Serum or plasma urea nitroge n measurement (mass/volume)Ordered By: David Miramontes on 05-26-2023 Urea nitrogen [Mass/Vol] 2 mg/dL - [facility] Thin prep Papanicolaou smear with manual screeningOrdered By: David Miramontes on 05-26-2023 Thin prep Papanicolaou smear with manual screening 11 11-20 [facility] Absolute lymphocyte countOrd ered By: Risa Gatica on 05-25-2023 Lymphocytes Auto (Unsp spec) [#/Vol] 1.15 10*3/uL 0.83-4.51 [facility] Basophil percentageOrdered B y: Risa Gatica on 05-25-2023 Chloride [Moles/Vol] 110 mmol/L 98-107 [facility] Glucose [Mass/Vol] 175 mg/dL 74-[address] [facility] Comment on above: Fasting Glucose resu lt greater than or equal to 126 mg/dL suggests DIABETES MELLITUS per A.D.A. criteria. Potassium [Moles/Vol] 4.1 mmol/L 3.5-5.1 [facility] Sodium [Moles/Vol] 136 mmol/L 136-[address] [facility] Basophil percentage 0-5 SEEN /hpf 0-5 [facility] Basophils/100 WBC (Bld) 1.2 % 0-1 [facility] Bilirubin [Mass/Vol] 0.70 mg/dL 0.20-1.00 [facility] Comment on above: For patients on eltr ombopag therapy, use of Dimension [place] TBIL is not recommended. Eosinophils/100 WBC (Bld) 0.1 % 0-5 [facility] Neutrophils (Bld) [#/Vol] 7.3 10*3/uL 2.0-7.7 [facility] Neutrophils/100 WBC (Bld) 78.8 % 47-70 [facility] Protein [Mass/Vol] 8.5 g/dL 6.4-8.[address] [facility] WBC (Bld) [#/Vol] 9.3 10*3/uL 4.4-11.[address] [facility] Bilirubin Test strip Ql (U)O rdered By: Risa Gatica on 05-25-2023 Bilirubin Ql (U) Negative Negative [facility] Blood erythrocytes count (nu mber/volume)Ordered By: Risa Gatica on 05-25-2023 RBC (Bld) [#/Vol] 4.71 10*6/uL 4.2-5.4 [facility] Blood hemoglobin measurement (mass/volume)Ordered By: Risa Gatica on 05-25-2023 Hemoglobin (Bld) [Mass/Vol] 14.9 g/dL 12.0-15.0 [facility] Blood lymphocytes/100 leukoc ytesOrdered By: Risa Gatica on 05-25-2023 Lymphocytes/100 WBC (Bld) 12.4 % 19-41 [facility] Blood monocytes/100 leukocyt esOrdered By: Risa Gatica on 05-25-2023 Monocytes/100 WBC (Bld) 7.1 % 0-10 [facility] Blood platelet mean volumeOr dered By: Risa Gatica on 05-25-2023 Platelet mean volume (Bld) [Entitic vol] 9.8 fL 6.2-12.0 [facility] Determination of erythrocyte mean corpuscular volume (MCV)Ordered By: Risa Gatica on 05-25-2023 MCV (RBC) [Entitic vol] 100.2 fL 81-99 [facility] Direct bilirubinOrdered By: Rias Gatica on 05-25-2023 Bilirubin.direct [Mass/Vol] 0.28 mg/dL 0.00-0.30 [facility] Glucose Glucometer (dC) [M ass/Vol]Ordered By: David Miramontes on 05-25-2023 Glucose [Mass/Vol] 191 mg/dL 74-[address] [facility] Comment on above: MANAGEMENT OF PATIEN T CARE PER NURSING PROTOCOL Hematocrit Auto (Bld) [Volum e fraction]Ordered By: Risa Gatica on 05-25-2023 Hematocrit (Bld) [Volume fraction] 47.2 % 37-47 [facility] Ketones Test strip Ql (U)Ord ered By: Risa Gatica on 05-25-2023 Ketones Ql (U) 150 mg/dl Negative [facility] Comment on above: CRITICAL VALUE *HCRI TICAL VALUE VERIFIED. CALLED TO [id number] Angely Paiz.RESULTS READ BACK BY SAME . Laboratory - Chemistry and C hemistry - challengeOrdered By: Risa Gatica on 05-25-2023 CO2 [Moles/Vol] 10.0 mmol/L 21.0-32.0 [facility] Urea nitrogen/Creatinine [Mass ratio] 5.1 mg/mg 10-20 [facility] ALP [Catalytic activity/Vol] 116 U/L 45-117 [facility] ALT [Catalytic activity/Vol] 75 U/L 13-56 [facility] Globulin (S) [Mass/Vol] 4.8 g/dL 2.2-4.2 [facility] - Hematology and Cell countsOrdered By: Risa Gatica on 05-25-2023 Erythrocyte distribution width (RBC) [Entitic vol] 46.5 fL 35.1-43.9 [facility] Erythrocyte distribution width (RBC) [Ratio] 12.6 % 11.6-14.6 [facility] Immature granulocytes/100 WBC (Bld) 0.400 % 0.0-0.9 [facility] Comment on above: IG% - Immature Granu locytes (promyelocytes, myelocytes and metamyelocytes) > 1% indicates that a LEFT SHIFT is Present. MCH (RBC) [Entitic mass] 31.6 pg 27.0-32.0 [facility] Nucleated RBC/100 WBC (Bld) [Ratio] 0 % 0-5 [facility] MCHC Auto (RBC) [Mass/Vol]Or dered By: Risa Gatica on 05-25-2023 MCHC (RBC) [Mass/Vol] 31.6 g/dL 32-36 [facility] Mucus LM Ql (Urine sed)Order ed By: Risa Gatica on 05-25-2023 Mucus Ql (Urine sed) 0 SEEN /hpf [facility] Nitrite Test strip Ql (U)Ord ered By: Risa Gatica on 05-25-2023 Nitrite Ql (U) Negative Negative [facility] No Panel InformationOrdered By: Risa Gatica on 05-25-2023 Estimated Creatinine Clearance Calc 102.34 ml/min [facility] Estimated GFR (MDRD) Amer 150 mL/min >60 [facility] Comment on above: GFR Calc Estimated GFR (MDRD) Non-Af Amer 124 mL/min >60 [facility] Comment on above: Non- GFR Calc Platelets bldOrdered By: Giselle Gatica on 05-25-2023 Platelets (Bld) [#/Vol] 335 10*3/uL 150-450 [facility] Protein Test strip Ql (U)Ord ered By: Risa Gatica on 05-25-2023 Protein Ql (U) 30 mg/dl Negative [facility] Serum or plasma acetone xin urement (mass/volume)Ordered By: Risa Gatica on 05-25-2023 Acetone [Mass/Vol] MODERATE NEG [facility] Serum or plasma albumin xin urement (mass/volume)Ordered By: Risa Gatica on 05-25-2023 Albumin [Mass/Vol] 3.7 g/dL 3.2-5.[address] [facility] Serum or plasma calcium xin urement (mass/volume)Ordered By: Risa Gatica on 05-25-2023 Calcium [Mass/Vol] 8.0 mg/dL 8.5-10.[address] [facility] Serum or plasma creatinine m easurement (mass/volume)Ordered By: Risa Gatica on 05-25-2023 Creatinine [Mass/Vol] 0.59 mg/dL 0.55-1.02 [facility] Comment on above: The validity of the calculated GFR & GFRAA in patients over 70 years has not been determined. Clinical correlation is essential. Serum or plasma urea nitroge n measurement (mass/volume)Ordered By: Risa Gatica on 05-25-2023 Urea nitrogen [Mass/Vol] 3 mg/dL 7-18 [facility] Squamous epithelial cells de tection in urine sediment by light microscopyOrdered By: Risa Gatica on 05-25-2023 Epithelial cells.squamous LM Ql (Urine sed) 0-5 SEEN /hpf 5-10 [facility] Thin prep Papanicolaou smear with manual screeningOrdered By: Risa Gatica on 05-25-2023 Thin prep Papanicolaou smear with manual screening 16 5-15 [facility] Thin prep Papanicolaou smear with manual screening 64 U/L 15-37 [facility] Urine blood detectionOrdered By: Risa Gatica on 05-25-2023 RBC Ql (U) 10 /ul Negative [facility] RBC Ql (U) 0-5 SEEN /hpf 0-5 [facility] Urine clarityOrdered By: Giselle Gatica on 05-25-2023 Clarity (U) Clear Clear [facility] Urine color determinationOrd ered By: Risa Gatica on 05-25-2023 Color (U) Yellow Yellow [facility] Urine glucose detectionOrder ed By: Risa Gatica on 05-25-2023 Glucose Ql (U) 1000 mg/dl Normal [facility] Urine leukocyte esterase det ection by dipstickOrdered By: Risa Gatica on 05-25-2023 Leukocyte esterase Test strip Ql (U) Negative Negative [facility] Urine pHOrdered By: Risa Gatica on 05-25-2023 pH (U) 5.0 [pH] 5.0 - 8.0 [facility] Urine sediment bacteria coun t by microscopy (number/high power field)Ordered By: Risa Gatica on 05-25-2023 Bacteria LM.HPF (Urine sed) [#/Area] RARE /hpf None Seen [facility] Urine specific gravity measu rementOrdered By: Risa Gatica on 05-25-2023 Specific gravity (U) [Rel density] 1.025 1.002-1.030 [facility] Urobilinogen Auto test strip Ql (U)Ordered By: Risa Gatica on 05-25-2023 Urobilinogen Ql (U) Normal mg/dl Normal [facility] Whole blood hemoglobin A1c/t otal hemoglobin ratio (mass fraction)Ordered By: David Miramontes on 05-25-2023 HbA1c (Bld) [Mass fraction] 8.3 % 3.8-5.6 [facility] Comment on above: Normal < 5.7 % Predi abetic 5.7 - 6.4 % Diabetic >or= 6.5 % Please note range changes. Absolute lymphocyte countOrd ered By: Efrem Lock on 05-23-2023 Lymphocytes Auto (Unsp spec) [#/Vol] 1.42 10*3/uL 0.83-4.51 [facility] Basophil percentageOrdered B y: Efrem Lock on 05-23-2023 Basophils/100 WBC (Bld) 0.7 % 0-1 [facility] Chloride [Moles/Vol] 103 mmol/L 98-107 [facility] Eosinophils/100 WBC (Bld) 0.1 % 0-5 [facility] Glucose [Mass/Vol] 432 mg/dL 74-[address] [facility] Comment on above: Glucose result great er than or equal to 200 mg/dLsuggests DIABETES MELLITUS per A.D.A. criteria. Neutrophils (Bld) [#/Vol] 9.9 10*3/uL 2.0-7.7 [facility] Neutrophils/100 WBC (Bld) 81.5 % 47-70 [facility] Potassium [Moles/Vol] 4.6 mmol/L 3.5-5.1 [facility] Comment on above: Moderate Hemolysis, Result may be falsely increased. Sodium [Moles/Vol] 137 mmol/L 136-[address] [facility] WBC (Bld) [#/Vol] 12.1 10*3/uL 4.4-11.0 [facility] Blood erythrocytes count (nu mber/volume)Ordered By: Efrem Lock on 05-23-2023 RBC (Bld) [#/Vol] 4.88 10*6/uL 4.2-5.4 [facility] Blood hemoglobin measurement (mass/volume)Ordered By: Efrem Lock on 05-23-2023 Hemoglobin (Bld) [Mass/Vol] 15.5 g/dL 12.0-15.0 [facility] Blood lymphocytes/100 leukoc ytesOrdered By: Efrem Lock on 05-23-2023 Lymphocytes/100 WBC (Bld) 11.8 % 19-41 [facility] Blood monocytes/100 leukocyt esOrdered By: Efrem Lock on 05-23-2023 Monocytes/100 WBC (Bld) 5.5 % 0-10 [facility] Blood platelet mean volumeOr dered By: Efrem Lock on 05-23-2023 Platelet mean volume (Bld) [Entitic vol] 9.5 fL 6.2-12.0 [facility] Determination of erythrocyte mean corpuscular volume (MCV)Ordered By: Efrem Lock on 05-23-2023 MCV (RBC) [Entitic vol] 96.9 fL 81-99 [facility] Glucose Glucometer (BldC) [M ass/Vol]Ordered By: Efrem Lock on 05-23-2023 Glucose [Mass/Vol] 451 mg/dL 74-[address] [facility] Comment on above: Dr Amanda CramerMA NAGEMENT OF PATIENT CARE PER NURSING PROTOCOL HCO3 (BldA) [Moles/Vol]Order ed By: Efrem Lock on 05-23-2023 HCO3 (Bld) [Moles/Vol] 19 mmol/L 22-26 [facility] Hematocrit Auto (Bld) [Volum e fraction]Ordered By: Efrem Lock on 05-23-2023 Hematocrit (Bld) [Volume fraction] 47.3 % 37-47 [facility] Laboratory - Chemistry and C hemistry - challengeOrdered By: Efrem Lock on 05-23-2023 CO2 [Moles/Vol] 20 mmol/L 23-33 [facility] CO2 [Moles/Vol] 20.0 mmol/L 21.0-32.0 [facility] Urea nitrogen/Creatinine [Mass ratio] 9.1 mg/mg 10-20 [facility] Laboratory - Hematology and Cell countsOrdered By: Efrem Lock on 05-23-2023 Erythrocyte distribution width (RBC) [Entitic vol] 45.6 fL 35.1-43.9 [facility] Erythrocyte distribution width (RBC) [Ratio] 12.9 % 11.6-14.6 [facility] Immature granulocytes/100 WBC (Bld) 0.400 % 0.0-0.9 [facility] Comment on above: IG% - Immature Granu locytes (promyelocytes, myelocytes and metamyelocytes) > 1% indicates that a LEFT SHIFT is Present. MCH (RBC) [Entitic mass] 31.8 pg 27.0-32.0 [facility] Nucleated RBC/100 WBC (Bld) [Ratio] 0 % 0-5 [facility] MCHC Auto (RBC) [Mass/Vol]Or dered By: Efrem Lock on 05-23-2023 MCHC (RBC) [Mass/Vol] 32.8 g/dL 32-36 [facility] No Panel InformationOrdered By: Efrem Lock on 05-23-2023 Bed Mix Venous Bld PCO2 at [facility] Temp 36.8 mmHg 41-51 [facility] Blood Gas Sample Site Not entered [facility] Blood Gas Specimen Type BETHANY [facility] Oxygen Delivery Device Room Air [facility] Venous Blood Base Excess -7 mmol/L -1.0-3.5 [facility] Estimated Creatinine Clearance Calc 68.61 ml/min [facility] Estimated GFR (MDRD) Amer 95 mL/min >60 [facility] Comment on above: GFR Calc Estimated GFR (MDRD) Non-Af Amer 79 mL/min >60 [facility] Comment on above: Non- GFR Calc Ethyl Alcohol Level 376.0 mg/dL [facility] Comment on above: Critical Result(s) C alled at: 02:34:01 05/23/2023 by: CHRISTINE Dominguez [employer]. Results read back by same.The serum:whole blood ethanol ratio is approximately 1.14and varies slightly with hematocrit. Medical Alcohol reference interval and critical value innon-tolerant individuals; 50 - 100 Impairment 100 Intoxication 100 - 250 Severe Poisoning 250 - 400 Deep/possible fatal coma Troponin I High Sensitivity 5 pg/mL 3.0-54.0 [facility] Comment on above: Please Note: New [place] t Units and Gender Specific Reference Ranges. For more information see Policy Stat Procedure [place] High Sensitivity Troponin (TNIH) and attachments. PO2 venousOrdered By: Efrem Lock on 05-23-2023 Oxygen (BldV) [Partial pressure] 58 mm[Hg] 25-40 [facility] Platelets bldOrdered By: David Lock on 05-23-2023 Platelets (Bld) [#/Vol] 317 10*3/uL 150-450 [facility] Serum or plasma acetone xin urement (mass/volume)Ordered By: Efrem Lock on 05-23-2023 Acetone [Mass/Vol] SMALL NEG [facility] Serum or plasma calcium xin urement (mass/volume)Ordered By: Efrem Lock on 05-23-2023 Calcium [Mass/Vol] 9.5 mg/dL 8.5-10.[address] [facility] Serum or plasma creatinine m easurement (mass/volume)Ordered By: Efrem Lock on 05-23-2023 Creatinine [Mass/Vol] 0.88 mg/dL 0.55-1.02 [facility] Comment on above: The validity of the calculated GFR & GFRAA in patients over 70 years has not been determined. Clinical correlation is essential. Serum or plasma urea nitroge n measurement (mass/volume)Ordered By: Efrem Lock on 05-23-2023 Urea nitrogen [Mass/Vol] 8 mg/dL 7-18 [facility] Thin prep Papanicolaou smear with manual screeningOrdered By: Efrem Lock on 05-23-2023 Thin prep Papanicolaou smear with manual screening 14 5-15 [facility] Vital signsOrdered By: Alphonso Lock on 05-23-2023 Oxygen saturation in Blood 88 % 50-70 [facility] pH measurementOrdered By: Fifi Lock on 05-23-2023 pH (Unsp spec) 7.33 [pH] 7.32-7.42 [facility] Absolute lymphocyte counton 02-03-2022 Lymphocytes Auto (Unsp spec) [#/Vol] 2.05 10*3/uL 0.83-4.51 [facility] Work Phone: Basophil percentageon 2021 Chloride [Moles/Vol] 107 mmol/L 98-107 [facility] Work Phone: Glucose [Mass/Vol] 350 mg/dL 74-[address] [facility] Work Phone: Comment on above: Glucose result great er than or equal to 200 mg/dLsuggests DIABETES MELLITUS per A.D.A. criteria. Potassium [Moles/Vol] 4.2 mmol/L 3.5-5.1 [facility]: Sodium [Moles/Vol] 135 mmol/L 136-[address] [facility] Work Phone: [phone] Basophils/100 WBC (Bld) 0.6 % 0-1 [facility] Work Phone: [phone] Eosinophils/100 WBC (Bld) 0.1 % 0-5 [facility] Work Phone: [phone] Neutrophils (Bld) [#/Vol] 6.1 10*3/uL 2.0-7.7 [facility] Work Phone: [phone] Neutrophils/100 WBC (Bld) 67.2 % 47-70 [facility] Work Phone: [phone] WBC (Bld) [#/Vol] 9.0 10*3/uL 4.4-11.[address] [facility] Work Phone: [phone] Blood erythrocytes count (nu mber/volume)on 02-03-2022 RBC (Bld) [#/Vol] 3.83 10*6/uL 4.2-5.4 [facility] Work Phone: [phone] Blood hemoglobin measurement (mass/volume)on 02-03-2022 Hemoglobin (Bld) [Mass/Vol] 11.8 g/dL 12.0-15.0 [facility] Work Phone: [phone] Blood lymphocytes/100 leukoc yteson 02-03-2022 Lymphocytes/100 WBC (Bld) 22.7 % 19-41 [facility] Work Phone: Blood monocytes/100 leukocyt eson 02-03-2022 Monocytes/100 WBC (Bld) 9.0 % 0-10 [facility] Work Phone: Blood platelet mean volumeon 02-03-2022 Platelet mean volume (Bld) [Entitic vol] 9.5 fL 6.2-12.0 [facility] Work Phone: Determination of erythrocyte mean corpuscular volume (MCV)on 02-03-2022 MCV (RBC) [Entitic vol] 94.0 fL 81-99 [facility] Work Phone: Glucose Glucometer (BldC) [M ass/Vol]on 02-03-2022 Glucose [Mass/Vol] 279 mg/dL 74-[address] [facility] Work Phone: Comment on above: MANAGEMENT OF PATIEN T CARE PER NURSING PROTOCOL Hematocrit Auto (Bld) [Volum e fraction]on 02-03-2022 Hematocrit (Bld) [Volume fraction] 36.0 % 37-47 [facility] Work Phone: Laboratory - Chemistry and C hemistry - challengeon 02-03-2022 CO2 [Moles/Vol] 21.0 mmol/L 21.0-32.0 [facility] Work Phone: Urea nitrogen/Creatinine [Mass ratio] 12.9 mg/mg 10-20 [facility] Work Phone: Laboratory - Hematology and Cell countson 02-03-2022 Erythrocyte distribution width (RBC) [Entitic vol] 49.1 fL 35.1-43.9 [facility] Work Phone: [phone] Erythrocyte distribution width (RBC) [Ratio] 14.2 % 11.6-14.6 [facility] Work Phone: [phone] Immature granulocytes/100 WBC (Bld) 0.400 % 0.0-0.9 [facility] Work Phone: [phone] Comment on above: IG% - Immature Granu locytes (promyelocytes, myelocytes and metamyelocytes) > 1% indicates that a LEFT SHIFT is Present. MCH (RBC) [Entitic mass] 30.8 pg 27.0-32.0 [facility] Work Phone: Nucleated RBC/100 WBC (Bld) [Ratio] 0 % 0-5 [facility] Work Phone: MCHC Auto (RBC) [Mass/Vol]on 02-03-2022 MCHC (RBC) [Mass/Vol] 32.8 g/dL 32-36 [facility] Work Phone: Comment on above: Delta: 31.0 on 02/02-0 No Panel Informationon 02-03 Estimated Creatinine Clearance Calc 65.53 ml/min [facility] Work Phone: Estimated GFR (MDRD) Amer 90 mL/min >60 [facility] Work Phone: Comment on above: GFR Calc Estimated GFR (MDRD) Non-Af Amer 74 mL/min >60 [facility] Work Phone: Comment on above: Non- GFR Calc Platelets bldon 02-03-2022 Platelets (Bld) [#/Vol] 278 10*3/uL 150-450 [facility] Work Phone: Serum or plasma calcium xin urement (mass/volume)on 02-03-2022 Calcium [Mass/Vol] 7.7 mg/dL 8.5-10.[address] [facility] Work Phone: Serum or plasma creatinine m easurement (mass/volume)on 02-03-2022 Creatinine [Mass/Vol] 0.93 mg/dL 0.55-1.02 [facility] Work Phone: Comment on above: The validity of the calculated GFR & GFRAA in patients over 70 years has not been determined. Clinical correlation is essential. Serum or plasma urea nitroge n measurement (mass/volume)on 02-03-2022 Urea nitrogen [Mass/Vol] 12 mg/dL 7-18 [facility] Work Phone: Thin prep Papanicolaou smear with manual screeningon 02-03-2022 Thin prep Papanicolaou smear with manual screening 7 5-15 [facility] Work Phone: Whole blood hemoglobin A1c/t otal hemoglobin ratio (mass fraction)on 02-03-2022 HbA1c (Bld) [Mass fraction] 10.7 % 3.8-5.6 [facility] Work Phone: Comment on above: Normal < 5.7 % Predi abetic 5.7 - 6.4 % Diabetic >or= 6.5 % Please note range changes. Assessment of wrist artery p atency prior to arterial punctureon 02-02-2022 Arterial patency Wrist artery --pre arterial puncture Positive [facility] Work Phone: Base excesson 02-02-2022 Base excess Calc (BldV) [Moles/Vol] -23 mmol/L -2-2 [facility] Work Phone: Basophil percentageon 2021 Basophil percentage 6.1 mmol/L [facility] Work Phone: Basophils/100 WBC (Bld) 72 % 95-99 [facility] Work Phone: Basophil percentage 5.4 mg/dL 2.5-4.9 [facility] Work Phone: [phone] Bilirubin [Mass/Vol] 0.60 mg/dL 0.20-1.00 [facility] Work Phone: Comment on above: For patients on eltr ombopag therapy, use of Dimension [place] TBIL is not recommended. Protein [Mass/Vol] 8.9 g/dL 6.4-8.[address] [facility] Work Phone: Basophil percentage 0-5 SEEN /hpf 0-5 [facility] Work Phone: Bilirubin Test strip Ql (U)o n 02-02-2022 Bilirubin Ql (U) Negative Negative [facility] Work Phone: CO2 (BldA) [Partial pressure ]on 02-02-2022 CO2 (Bld) [Partial pressure] 18.4 mm[Hg] 35-45 [facility] Work Phone: HCO3 (BldA) [Moles/Vol]on HCO3 (Bld) [Moles/Vol] 5 mmol/L [facility] Work Phone: Ketones Test strip Ql (U)on 02-02-2022 Ketones Ql (U) 150 mg/dl Negative [facility] Work Phone: Comment on above: CRITICAL VALUE *HCRI TICAL VALUE VERIFIED. CALLED TO DENZEL COUGHLIN02/02/222003 Adriano Galan.RESULTS READ BACK BY SAME . Laboratory - Chemistry and C hemistry - challengeon 02-02-2022 CO2 [Moles/Vol] 5 mmol/L 23-33 [facility] Work Phone: [phone] ALP [Catalytic activity/Vol] 122 U/L 45-117 [facility] Work Phone: [phone] ALT [Catalytic activity/Vol] 54 U/L 13-56 [facility] Work Phone: [phone] Globulin (S) [Mass/Vol] 4.7 g/dL 2.2-4.2 [facility] Work Phone: [phone] Magnesium [Mass/Vol] 2.3 mg/dL 1.6-2.6 [facility] Work Phone: [phone] Mucus LM Ql (Urine sed)on Mucus Ql (Urine sed) 0 SEEN /hpf [facility] Work Phone: [phone] Nitrite Test strip Ql (U)on 02-02-2022 Nitrite Ql (U) Negative Negative [facility] Work Phone: [phone] No Panel Informationon 02-02 Bld Gas Crit Called To/Read Back By Yes [facility] Work Phone: [phone] Blood Gas Sample Site L Radial [facility] Work Phone: [phone] Blood Gas Specimen Type ART [facility] Work Phone: [phone] Blood Gas Total CO2 7 mmol/L [facility] Work Phone: [phone] Bed Mix Venous Bld PCO2 at Pat Temp 18.7 mmHg 41-51 [facility] Work Phone: [phone] Blood Gas Notified Time 19:40:39 [facility] Work Phone: [phone] Blood Gas Notified Whom Reodica [facility] Work Phone: [phone] Oxygen Delivery Device Room Air [facility] Work Phone: [phone] Venous Blood Base Excess -26 mmol/L -1.0-3.5 [facility] Work Phone: Oxygen (BldA) [Partial press ure]on 02-02-2022 Oxygen (Bld) [Partial pressure] 48 mmHG 75-100 [facility] Work Phone: PO2 venouson 02-02-2022 Oxygen (BldV) [Partial pressure] 69 mm[Hg] 25-40 [facility] Work Phone: Protein Test strip Ql (U)on 02-02-2022 Protein Ql (U) 100 mg/dl Negative [facility] Work Phone: Serum or plasma acetone xin urement (mass/volume)on 02-02-2022 Acetone [Mass/Vol] MODERATE NEG [facility] Work Phone: Serum or plasma albumin xin urement (mass/volume)on 02-02-2022 Albumin [Mass/Vol] 4.2 g/dL 3.2-5.[address] [facility] Work Phone: Serum or plasma albumin/glob ulin mass ratioon 02-02-2022 Albumin/Globulin [Mass ratio] 0.9 {ratio} 0.9-2.4 [facility] Work Phone: Squamous epithelial cells de tection in urine sediment by light microscopyon 02-02-2022 Epithelial cells.squamous LM Ql (Urine sed) 0-5 SEEN /hpf 5-10 [facility] Work Phone: Thin prep Papanicolaou smear with manual screeningon 02-02-2022 Thin prep Papanicolaou smear with manual screening 37 U/L 15-37 [facility] Work Phone: Urine blood detectionon 01-07 RBC Ql (U) 10 /ul Negative [facility] Work Phone: RBC Ql (U) 0-5 SEEN /hpf 0-5 [facility] Work Phone: Urine clarityon 02-02-2022 Clarity (U) Clear Clear [facility] Work Phone: Urine color determinationon 02-02-2022 Color (U) Yellow Yellow [facility] Work Phone: Urine glucose detectionon Glucose Ql (U) 1000 mg/dl Normal [facility] Work Phone: Urine leukocyte esterase det ection by dipstickon 02-02-2022 Leukocyte esterase Test strip Ql (U) Negative Negative [facility] Work Phone: Urine pHon 02-02-2022 pH (U) 5.0 [pH] 5.0 - 8.0 [facility] Work Phone: Urine sediment bacteria coun t by microscopy (number/high power field)on 02-02-2022 Bacteria LM.HPF (Urine sed) [#/Area] 1 /[HPF] None Seen [facility] Work Phone: Urine specific gravity measu rementon 02-02-2022 Specific gravity (U) [Rel density] 1.030 1.002-1.030 [facility] Work Phone: Urobilinogen Auto test strip Ql (U)on 02-02-2022 Urobilinogen Ql (U) Normal mg/dl Normal [facility] Work Phone: Vital signson 02-02-2022 Oxygen saturation in Blood 83 % 50-70 [facility] Work Phone: pH measurementon 02-02-2022 pH (Unsp spec) 7.13 [pH] 7.35-7.45 [facility] Work Phone: pH (Unsp spec) 7.01 [pH] 7.32-7.42 [facility] Work Phone: Vital Signs Date Time Vital Sign Value Performing Clinician Dallini stephanie 09-28-2024 10:00-0400 Diastolic blood pressure 96 mm[Hg] Dr. Meena Flowers DO Work Phone: [facility] 09-28-2024 10:00-0400 Heart rate 98 /min Dr. Meena Flowers DO Work Phone: [facility] 09-28-2024 10:00-0400 Respiratory rate 18 /min Dr. Meena Flowers DO Work Phone: [facility] 09-28-2024 10:00-0400 SaO2% (BldA) [Mass fraction] 100 % Dr. Meena Flowers DO Work Phone: [facility] 09-28-2024 10:00-0400 Systolic blood pressure 150 mm[Hg] Dr. Meena Flowers DO Work Phone: [facility] 09-28-2024 08:00-0400 Body temperature 97.8 [degF] Dr. Meena Flowers DO Work Phone: [facility] 09-28-2024 05:44-0400 Body mass index (BMI) [Ratio] 29.3 kg/m2 Dr. Meena Flowers DO Work Phone: [facility] 09-28-2024 05:44-0400 Body weight 70.[address] Meena Flowers DO Work Phone: [facility] 09-26-2024 13:32-0400 Body height 154.[address] Meena Flowers DO Work Phone: [facility] 09-26-2024 12:19-0400 Body temperature 98.1 [degF] Dr. Meena Flowers DO Work Phone: [facility] 09-26-2024 12:19-0400 Diastolic blood pressure 78 mm[Hg] Dr. Meena Flowers DO Work Phone: [facility] 09-26-2024 12:19-0400 Heart rate 122 /min Dr. Meena Flowers DO Work Phone: [facility] 09-26-2024 12:19-0400 Respiratory rate 23 /min Dr. Meena Flowers DO Work Phone: [facility] 09-26-2024 12:19-0400 SaO2% (BldA) [Mass fraction] 98 % Dr. Meena Flowers DO Work Phone: [facility] 09-26-2024 12:19-0400 Systolic blood pressure 131 mm[Hg] Dr. Meena Flowers DO Work Phone: [facility] 09-26-2024 09:28-0400 Body height 154.[address] Meena Flowers DO Work Phone: [facility] 09-26-2024 09:28-0400 Body mass index (BMI) [Ratio] 28.5 kg/m2 Dr. Meena Flowers DO Work Phone: [facility] 09-26-2024 09:28-0400 Body weight 68.[address] Meena Flowers DO Work Phone: [facility] 09-24-2023 14:26-0400 Body temperature 97 [degF] [facility] 09-24-2023 14:26-0400 Diastolic blood pressure 85 mm[Hg] [facility] 09-24-2023 14:26-0400 Heart rate 79 /min [facility] 09-24-2023 14:26-0400 Respiratory rate 16 /min [facility] 09-24-2023 14:26-0400 SaO2% (BldA) [Mass fraction] 99 % [facility] 09-24-2023 14:26-0400 Systolic blood pressure 123 mm[Hg] [facility] 09-24-2023 12:26-0400 Body height 154.94 cm [facility] 09-24-2023 12:26-0400 Body mass index (BMI) [Ratio] 29.9 kg/m2 [facility] 09-24-2023 12:26-0400 Body weight 71.93 kg [facility] 06-05-2023 14:18-0500 Body temperature 98.2 [degF] Dr. Meena Flowers Work Phone: [facility] 06-05-2023 14:18-0500 Heart rate 72 /min Dr. Meena Flowers Work Phone: [facility] 06-05-2023 14:18-0500 Respiratory rate 14 /min Dr. Meena Flowers Work Phone: [facility] 06-05-2023 12:53-0500 Body mass index (BMI) [Ratio] 31.9 kg/m2 Dr. Meena Flowers Work Phone: [facility] 06-05-2023 12:53-0500 Body weight 76.[address] Meena Flowers Work Phone: [facility] 06-05-2023 12:35-0500 Body height 154.[address] Meena Flowers Work Phone: [facility] 06-05-2023 12:35-0500 Diastolic blood pressure 96 mm[Hg] Dr. Meena Flowers Work Phone: [facility] 06-05-2023 12:35-0500 SaO2% (BldA) [Mass fraction] 100 % Dr. Meena Flowers Work Phone: [facility] 06-05-2023 12:35-0500 Systolic blood pressure 139 mm[Hg] Dr. Meena Flowers Work Phone: [facility] 05-26-2023 12:00-0500 Body temperature 98 [degF] Dr. Meena Flowers Work Phone: [facility] 05-26-2023 12:00-0500 Diastolic blood pressure 96 mm[Hg] Dr. Meena Flowers Work Phone: [facility] 05-26-2023 12:00-0500 Heart rate 110 /min Dr. Meena Flowers Work Phone: [facility] 05-26-2023 12:00-0500 Respiratory rate 20 /min Dr. Meena Flowers Work Phone: [facility] 05-26-2023 12:00-0500 SaO2% (BldA) [Mass fraction] 98 % Dr. Meena Flowers Work Phone: [facility] 05-26-2023 12:00-0500 Systolic blood pressure 125 mm[Hg] Dr. Meena Folwers Work Phone: [facility] 05-26-2023 09:35-0500 Body height 154.[address] Meena Flowers Work Phone: [facility] 05-26-2023 09:35-0500 Body weight 75.[address] Meena Flowers Work Phone: [facility] 05-26-2023 05:20-0500 Body mass index (BMI) [Ratio] 31.5 kg/m2 Dr. Meena Flowers Work Phone: [facility] 05-25-2023 20:23-0500 Diastolic blood pressure 81 mm[Hg] [facility] 05-25-2023 20:23-0500 Heart rate 92 /min [facility] 05-25-2023 20:23-0500 Respiratory rate 14 /min [facility] 05-25-2023 20:23-0500 SaO2% (BldA) [Mass fraction] 98 % [facility] 05-25-2023 20:23-0500 Systolic blood pressure 124 mm[Hg] [facility] 05-25-2023 16:43-0500 Body height 154.94 cm [facility] 05-25-2023 16:43-0500 Body mass index (BMI) [Ratio] 31.6 kg/m2 [facility] 05-25-2023 16:43-0500 Body temperature 97.3 [degF] [facility] 05-25-2023 16:43-0500 Body weight 75.97 kg [facility] 05-23-2023 03:27-0500 Diastolic blood pressure 88 mm[Hg] [facility] 05-23-2023 03:27-0500 Heart rate 72 /min [facility] 05-23-2023 03:27-0500 Respiratory rate 16 /min [facility] 05-23-2023 03:27-0500 SaO2% (BldA) [Mass fraction] 98 % [facility] 05-23-2023 03:27-0500 Systolic blood pressure 139 mm[Hg] [facility] 05-23-2023 00:53-0500 Body height 154.94 cm [facility] 05-23-2023 00:53-0500 Body mass index (BMI) [Ratio] 31.9 kg/m2 [facility] 05-23-2023 00:53-0500 Body temperature 97.1 [degF] [facility] 05-23-2023 00:53-0500 Body weight 76.7 kg [facility] 02-03-2022 15:32-0400 Body temperature 96.3 [degF] [facility] Work Phone: 02-03-2022 15:32-0400 Diastolic blood pressure 77 mm[Hg] [facility] Work Phone: 02-03-2022 15:32-0400 Heart rate 95 /min [facility] Work Phone: 02-03-2022 15:32-0400 Respiratory rate 17 /min [facility] Work Phone: 02-03-2022 15:32-0400 SaO2% (BldA) [Mass fraction] 99 % [facility] Work Phone: 02-03-2022 15:32-0400 Systolic blood pressure 115 mm[Hg] [facility] Work Phone: 02-03-2022 09:13-0400 Body height 154.94 cm [facility] Work Phone: 02-03-2022 09:13-0400 Body weight 72.7 kg [facility] Work Phone: 02-02-2022 21:05-0400 Body mass index (BMI) [Ratio] 29.5 kg/m2 [facility] Work Phone: Encounters Encounter Date Encounter Type Care Provider Facility Start: 09-28-2024 Non-patient / Non-visit Dr. Dian Galan MD [facility] Work Phone: Start: 09-27-2024 Non-patient / Non-visit Dr. Reny Julien MD -[facility] Work Phone: Start: 09-26-2024 ambulatory Meenairina Flowers Facility:[facility] Start: 09-26-2024 End: 09-28-2024 Evaluation and management of inpatient Dr. Maggie Reed MD -Intensive Care Unit Work Phone: Start: 04-04-2024 ambulatory Bryce Julien Fac ility:[facility] Start: 04-04-2024 End: 04-05-2024 Evaluation and management of inpatient Meenairina Flowers Facility:[facility] Start: 09-24-2023 End: 09-24-2023 Emergency department patient visit [facility] Work Phone: Start: 06-05-2023 End: 06-05-2023 Emergency department patient visit Dr. Meena Flowers Work Phone: [facility] Work Phone: Start: 05-26-2023 Non-patient / Non-visit Dr. Letitia Flowers Work Phone: [facility] Work Phone: Start: 05-25-2023 Non-patient / Non-visit Dr. Letitia Flowers Work Phone: [facility] Work Phone: Start: 05-25-2023 End: 05-26-2023 Evaluation and management of inpatient [facility]Intensive Care Unit Work Phone: Start: 05-23-2023 Registered Referred [facility] Work Phone: Start: 05-23-2023 End: 05-23-2023 Emergency department patient visit [facility] Work Phone: Start: 02-03-2022 [facility] Start: 02-02-2022 Non-patient [facility] Start: 02-02-2022 End: 02-03-2022 Evaluation and management of inpatient [facility] Procedures Date Procedure Procedure Detail Performing Clinician Start: 09-26-2024 Plain chest X-ray Dr. Andreas Flowers DO Work Phone: Start: 05-25-2023 Plain chest X-ray Start: 05-23-2023 CT cervical spine wi thout contrast Start: 05-23-2023 CT of head without contrast Start: 05-23-2023 Plain chest X-ray Start: 05-23-2023 Radiologic examinati on of knee Plan of Treatment Date Care Activity Detail Author Start: 09-29-2024 [facility] Start: 09-28-2024 Patient discharge [facility] Start: 09-28-2024 End: 09-29-2024 [facility] Start: 09-28-2024 Care regimes management [facility] Start: 09-28-2024 Notification of physician [facility] Start: 09-28-2024 End: 09-28-2024 [facility] Start: 09-28-2024 Care regimes management [facility] Start: 09-28-2024 Notification of physician [facility] Start: 09-27-2024 Urine culture Urine Culture [facility] Start: 09-27-2024 [facility] Start: 09-27-2024 End: 09-27-2024 [facility] Start: 09-26-2024 [facility] Start: 09-26-2024 Assessment of risk o f venous thromboembolism [facility] Start: 09-26-2024 Continuous pulse oximetry [facility] Start: 09-26-2024 End: 09-26-2024 Following clinical pathway protocol [facility] Start: 09-26-2024 Insertion of cathete r into peripheral vein [facility] Start: 09-26-2024 Lab findings surveillance [facility] Start: 09-26-2024 Measuring intake and output [facility] Start: 09-26-2024 Notification of physician [facility] Start: 09-26-2024 Patient education [facility] Start: 09-26-2024 Patient referral to dietitian [facility] Start: 09-26-2024 Providing care accor ding to standard [facility] Start: 09-26-2024 Referral to occupati onal therapist [facility] Start: 09-26-2024 Referral to service [facility] Start: 09-26-2024 Vital signs measurements [facility] Start: 09-26-2024 [facility] Start: 09-26-2024 Hospital admission, emergency, from emergency room, medical nature [facility] Start: 09-26-2024 Verification routine [facility] Start: 09-26-2024 Admission procedure [facility] Start: 09-26-2024 End: 09-27-2024 [facility] Start: 09-24-2023 Blood chemistry [facility] Start: 09-24-2023 [facility] Start: 06-05-2023 [facility] Start: 06-05-2023 Simple repair scalp/neck/ax/genit/trunk 2.5cm/< RPR S/N/AX/GEN/TRNK 2.5CM/< [facility] Start: 05-26-2023 Blood chemistry [facility] Start: 05-26-2023 Blood chemistry [facility] Start: 05-26-2023 Patient discharge [facility] Start: 05-26-2023 Blood chemistry [facility] Start: 05-26-2023 Care regimes management [facility] Start: 05-26-2023 Notification of physician [facility] Start: 05-26-2023 [facility] Start: 05-26-2023 Blood chemistry [facility] Start: 05-26-2023 [facility] Start: 05-26-2023 Blood chemistry [facility] Start: 05-26-2023 [facility] Start: 05-26-2023 Blood chemistry [facility] Start: 05-25-2023 Assessment of risk o f venous thromboembolism [facility] Start: 05-25-2023 Continuous pulse oximetry [facility] Start: 05-25-2023 End: 05-25-2023 Following clinical pathway protocol [facility] Start: 05-25-2023 Insertion of cathete r into peripheral vein [facility] Start: 05-25-2023 Lab findings surveillance [facility] Start: 05-25-2023 Measuring intake and output [facility] Start: 05-25-2023 Notification of physician [facility] Start: 05-25-2023 Oxygen therapy [facility] Start: 05-25-2023 Patient education [facility] Start: 05-25-2023 Patient referral to dietitian [facility] Start: 05-25-2023 Providing care accor ding to standard [facility] Start: 05-25-2023 Vital signs measurements [facility] Start: 05-25-2023 [facility] Start: 05-25-2023 Blood chemistry [facility] Start: 05-25-2023 Verification routine [facility] Start: 05-25-2023 Admission procedure [facility] Start: 05-23-2023 [facility] Start: 05-23-2023 Blood chemistry [facility] Start: 05-23-2023 End: 05-23-2023 [facility] Start: 02-03-2022 Patient discharge [facility] Work Phone: Start: 02-02-2022 Application of inter mittent pneumatic compression device [facility] Work Phone: Start: 02-02-2022 Assessment of risk o f venous thromboembolism [facility] Work Phone: Start: 02-02-2022 Consultation [facility] Work Phone: Start: 02-02-2022 Continuous pulse oximetry [facility] Work Phone: Start: 02-02-2022 End: 02-02-2022 Following clinical pathway protocol [facility] Work Phone: Start: 02-02-2022 Incentive spirometry [facility] Work Phone: Start: 02-02-2022 Inhalation therapy procedure [facility] Work Phone: Start: 02-02-2022 Insertion of cathete r into peripheral vein [facility] Work Phone: Start: 02-02-2022 Introduction of urin mar catheter [facility] Work Phone: Start: 02-02-2022 Lab findings surveillance [facility] Work Phone: Start: 02-02-2022 Measuring intake and output [facility] Work Phone: Start: 02-02-2022 Notification of physician [facility] Work Phone: Start: 02-02-2022 Oxygen therapy [facility] Work Phone: Start: 02-02-2022 Patient education [facility] Work Phone: Start: 02-02-2022 Patient referral to dietitian [facility] Work Phone: Start: 02-02-2022 Providing care accor ding to standard [facility] Work Phone: Start: 02-02-2022 Provision of activit y privileges [facility] Work Phone: Start: 02-02-2022 Referral to service [facility] Work Phone: Start: 02-02-2022 Tobacco use cessatio n education [facility] Work Phone: Start: 02-02-2022 Vital signs measurements [facility] Work Phone: Start: 02-02-2022 [facility] Work Phone: Start: 02-02-2022 Admission procedure [facility] Work Phone: Start: 02-02-2022 Patient referral to dietitian [facility] Work Phone: Anion gap measurement [facility] Anion gap measurement [facility] Anion gap measurement [facility] Anion gap measurement [facility] Anion gap measurement [facility] Anion gap measurement [facility] Anion gap measurement [facility] Anion gap measurement [facility] Calcium [Mass/volume ] in Serum or Plasma [facility] Calcium [Mass/volume ] in Serum or Plasma [facility] Calcium [Mass/volume ] in Serum or Plasma [facility] Calcium [Mass/volume ] in Serum or Plasma [facility] Calcium [Mass/volume ] in Serum or Plasma [facility] Calcium [Mass/volume ] in Serum or Plasma [facility] Calcium [Mass/volume ] in Serum or Plasma [facility] Calcium [Mass/volume ] in Serum or Plasma [facility] Carbon dioxide, tota l [Moles/volume] in Serum or Plasma [facility] Carbon dioxide, tota l [Moles/volume] in Serum or Plasma [facility] Carbon dioxide, tota l [Moles/volume] in Serum or Plasma [facility] Carbon dioxide, tota l [Moles/volume] in Serum or Plasma [facility] Carbon dioxide, tota l [Moles/volume] in Serum or Plasma [facility] Carbon dioxide, tota l [Moles/volume] in Serum or Plasma [facility] Carbon dioxide, tota l [Moles/volume] in Serum or Plasma [facility] Carbon dioxide, tota l [Moles/volume] in Serum or Plasma [facility] Chloride [Moles/volu me] in Serum or Plasma [facility] Chloride [Moles/volu me] in Serum or Plasma [facility] Chloride [Moles/volu me] in Serum or Plasma [facility] Chloride [Moles/volu me] in Serum or Plasma [facility] Chloride [Moles/volu me] in Serum or Plasma [facility] Chloride [Moles/volu me] in Serum or Plasma [facility] Chloride [Moles/volu me] in Serum or Plasma [facility] Chloride [Moles/volu me] in Serum or Plasma [facility] Creatinine [Moles/vo lume] in Serum or Plasma [facility] Creatinine [Moles/vo lume] in Serum or Plasma [facility] Creatinine [Moles/vo lume] in Serum or Plasma [facility] Creatinine [Moles/vo lume] in Serum or Plasma [facility] Creatinine [Moles/vo lume] in Serum or Plasma [facility] Creatinine [Moles/vo lume] in Serum or Plasma [facility] Creatinine [Moles/vo lume] in Serum or Plasma [facility] Creatinine [Moles/vo lume] in Serum or Plasma [facility] Glucose [Mass/volume ] in Serum or Plasma [facility] Glucose [Mass/volume ] in Serum or Plasma [facility] Glucose [Mass/volume ] in Serum or Plasma [facility] Glucose [Mass/volume ] in Serum or Plasma [facility] Glucose [Mass/volume ] in Serum or Plasma [facility] Glucose [Mass/volume ] in Serum or Plasma [facility] Glucose [Mass/volume ] in Serum or Plasma [facility] Glucose [Mass/volume ] in Serum or Plasma [facility] Hematocrit [Volume F raction] of Blood [facility] Hemoglobin [Mass/vol ume] in Blood [facility] Hemoglobin A1c/Hemoglobin.total in Blood [facility] Leukocytes [#/volume ] in Blood [facility] Magnesium [Mass/volu me] in Serum or Plasma [facility] Mean corpuscular hem oglobin concentration determination [facility] Mean corpuscular hem oglobin determination [facility] Measurement of renal function [facility] Measurement of renal function [facility] Measurement of renal function [facility] Measurement of renal function [facility] Measurement of renal function [facility] Measurement of renal function [facility] Measurement of renal function [facility] Measurement of renal function [facility] Neutrophil count [facility] Neutrophil percent differential count [facility] Patient Education [facility] Work Phone: Patient referral [facility] Work Phone: Platelets [#/volume] in Blood [facility] Potassium [Moles/vol ume] in Serum or Plasma [facility] Potassium [Moles/vol ume] in Serum or Plasma [facility] Potassium [Moles/vol ume] in Serum or Plasma [facility] Potassium [Moles/vol ume] in Serum or Plasma [facility] Potassium [Moles/vol ume] in Serum or Plasma [facility] Potassium [Moles/vol ume] in Serum or Plasma [facility] Potassium [Moles/vol ume] in Serum or Plasma [facility] Potassium [Moles/vol ume] in Serum or Plasma [facility] Red blood cell count [facility] Red cell distributio n width determination [facility] Sodium [Moles/volume ] in Serum or Plasma [facility] Sodium [Moles/volume ] in Serum or Plasma [facility] Sodium [Moles/volume ] in Serum or Plasma [facility] Sodium [Moles/volume ] in Serum or Plasma [facility] Sodium [Moles/volume ] in Serum or Plasma [facility] Sodium [Moles/volume ] in Serum or Plasma [facility] Sodium [Moles/volume ] in Serum or Plasma [facility] Sodium [Moles/volume ] in Serum or Plasma [facility] Urea nitrogen [Mass/ volume] in Serum or Plasma [facility] Urea nitrogen [Mass/ volume] in Serum or Plasma [facility] Urea nitrogen [Mass/ volume] in Serum or Plasma [facility] Urea nitrogen [Mass/ volume] in Serum or Plasma [facility] Urea nitrogen [Mass/ volume] in Serum or Plasma [facility] Urea nitrogen [Mass/ volume] in Serum or Plasma [facility] Urea nitrogen [Mass/ volume] in Serum or Plasma [facility] Urea nitrogen [Mass/ volume] in Serum or Plasma [facility] Payers Date Payer Category Payer Self-pay [id number] 2014 Unknown [id number] Private Health Insurance [id number] Unknown [id number] [id number] Unknown [id number] [id number] Unknown [id number] 2.16.8 [id number] Unknown [id number] 2.16.8 [id number] Unknown [id number] 2.16.8 [id number] Unknown [id number] [id number] [id number] Unknown [id number] 2.16.8 [id number] Social History Date Type Detail Facility [facility] Work Phone: Start: 02-02-2022 End: 09-24-2023 Tobacco smoking status AKIS Unknown if ever smoked [facility] Start: 11-16-2020 Cigarettes [facility] Start: 1990 Sex Assigned At Female [facility] Start: 09-26-2024 End: 09-28-2024 Tobacco smoking status [facility] Current Light tobacco smoker [facility] Start: 09-26-2024 End: 09-28-2024 Sex Female (finding) [facility] NEGATED: Highlighted row [facility] NEGATED: Highlighted row Not [facility] Goals Date Patient Goal Desired Activity /State Functional Status Date Assessment Result Facility 09-28-2024 Functional status Bathroom Privilege [facility] Work Phone: 05-26-2023 Functional status Ambulates [facility] Work Phone: 02-03-2022 Functional status Dangle Feet;Chair [facility] Work Phone: Mental Status Date Assessment Result Facility 09-28-2024 Cognitive function Voice/Name [facility] Work Phone: 09-26-2024 Cognitive function Level Of Cons ciousness Awake;Alert;Appropriate;Follow s Commands [facility] Work Phone: 09-24-2023 Cognitive function Level Of Cons ciousness Awake;Alert;Appropriate;Follow s Commands [facility] Work Phone: 05-25-2023 Cognitive function Level Of Cons ciousness Awake;Alert;Appropriate;Follow s Commands [facility] Work Phone: 02-03-2022 Cognitive function Appropriate [facility] Work Phone: Clinical Notes 05-26-2023 to 09-28-2024 Note Date & Type Note Facility 09-28-2024 Note [facility] Medical Records Department [address] [place] [address] Discharge Summary 09/28/24 1310 MR#: [id number] Acct: [id number] Name: BRETT BOBBY Rep #: [id number] : 1990 33 From: Bryce Julien MD PCP: Dr. Meena Flowers DO Status:DIS IN Location: ICU [id number] Providers Date of Admission: 09/26/24 Primary Care [...] in the ED were BP of 116/78, WI of 121, RR of 16 and temp [...] Calcium 7.8 09/07 (more content not included)... [facility] 09-28-2024 Discharge summary Note Date/Time September 28, 2024 9:19am [facility] Medical Records Department [address] [place] [address] Instructions for Home/Discharge Instructions 09/28/24 0900 MR#: [id number] Acct: [id number] Name: BRETT BOBBY Rep #:[id number] : 1990 33 From: Bryce vega MD [...] DO; Dr. Maggie Reed MD ~ Signed [facility] Work Phone: 1(590) 755-455803-23-2025 Discharge summary [facility] Medical Records Department [address] [place] [address] Instructions for Home/Discharge Instructions 09/28/24 0900 MR#: [id number] Acct: [id number] Name: BRETT BOBBY Rep #:[id number] : 1990 33 From: Bryce vega MD [...] DO; Dr. Maggie Reed MD ~ Signed [facility]03-23-2025 Progress note Author [facility] Note Date/Time September 28, 2024 1:0 6am [facility] Medical Records Department [address] [place] [address] Progress Note - Hospitalist 09/28/24104 MR#: [id number] Acct: [id number] Name: BRETT BOBBY Rep #:[id number] : 1990 33 From: Dian Galan MD [...] Cosigner Signature (if applicable): CC: ~ Signed [facility] Work Phone: 1(617) 214-634403-23-2025 Progress note [facility] Medical Records Department [address] [place] [address] Progress Note - Hospitalist 09/28/24104 MR#: [id number] Acct: [id number] Name: BRETT BOBBY Rep #:[id number] : 1990 33 From: Dian Galan MD PCP: Dr. Meena Flowers, DO Status:ADM IN Location: ICU CVICU20 2-1 Hospitalist Note Patient with AG closed x 2, episodes of symptomatic hypoglycemia now, will d/c drip, allow ADA diet, change to accu checks w/ ISS, restart longacting in AM since hypoglycemia present if appropriate. 09/28/24105 Cosigner Signature (if applicable): CC: ~ Signed [facility]03-22-2025 Progress note Author Bryce Julien [facility] Note Date/Time September 27, 2024 11: 47am [facility] Medical Records Department [address] [place] [address] Progress Note - Hospitalist 09/27/24 1143 MR#: [id number] Acct: [id number] Name: BRETT BOBBY Rep #:[id number] : 1990 33 From: Bryce vega MD [...] % (Auto) Cancelled, Lymph % (Auto) Cancelled, [place] % (Auto) Cancelled, Eos % (Auto) Cancelled, [...] Drop Cells Cancelled, Ovalocytes Cancelled, Stomatocytes Cancelled, Palomo-Biehle Bodies Cancelled, Radha Cells Cancelled, Bite Cells [...] (Auto) 71.7 H, Lymph % (Auto) 17.3L, [place] % (Auto) 9.7, Eos % (Auto) 0.4, [...] DVT: lovenox Charges/Coding Visit Charges Inpatient E&M: 62394 Subs Hosp L2 09/27/24 1142 <Electronically signed by Bryce Julien MD> Cosigner Signature (if applicable): CC: ~ Signed [facility] Work Phone: 1(339) 249-202103-22-2025 Progress note [facility] Medical Records Department [address] [place] [address] Progress Note - Hospitalist 09/27/24 1143 MR#: [id number] Acct: [id number] Name: BRETT BOBBY Rep #:[id number] : 1990 33 From: Bryce vega MD [...] % (Auto) Cancelled, Lymph % (Auto) Cancelled, [place] % (Auto) Cancelled, Eos % (Auto) Cancelled, [...] Drop Cells Cancelled, Ovalocytes Cancelled, Stomatocytes Cancelled, Palomo-Biehle Bodies Cancelled, Radha Cells Cancelled, Bite Cells [...] (Auto) 71.7 H, Lymph % (Auto) 17.3L, [place] % (Auto) 9.7, Eos % (Auto) 0.4, [...] DVT: lovenox Charges/Coding Visit Charges Inpatient E&M: 36643 Subs Hosp L2 09/27/24 1147 Cosigner Signature (if applicable): CC: ~ Signed [facility]03-21-2025 Discharge summary Author Aba Murguia [facility] Note Date/Time September 26, 2024 4:3 4pm [facility] Medical Records Department [address] [place] [address] Emergency Department Summary 09/26/24 MR#: [id number] Acct: [id number] Name: BRETT BOBBY Rep #:[id number] : 1990 33 From: Aba Murguia MD [...] (Auto) 68.9 Lymph % (Auto) 13.3 L [place] % (Auto) 4.4 Eos % (Auto) 12.0 [...] Color Urine Clarity Urine pH Ur Specific Dearing Urine Protein Urine Glucose (UA) Urine Ketones [...] (Auto) Neut % (Auto) Lymph % (Auto) [place] % (Auto) Eos % (Auto) Baso % (Auto) Absolute Neuts (auto) Absolute Lymphs (auto) Nucleated RBC % Platelet Estimate Sodium Potassium Chloride Cancelled Carbon Dioxide 5.7 L* Cancelled Anion Gap 35 H Cancelled BUN 10 Creatinine Estim Creat Clear Calc Est GFR (MDRD) Non-Af BUN/Creatinine Ratio Glucose Calcium b-Hydroxybutyric mmol/L Urine Color Urine Clarity Urine pH Ur Specific Dearing Urine Protein Urine Glucose (UA) Urine Ketones [...] (Auto) Neut % (Auto) Lymph % (Auto) [place] % (Auto) Eos % (Auto) Baso % (Auto) Absolute Neuts (auto) Absolute Lymphs (auto) Nucleated RBC % Platelet Estimate Sodium Potassium Chloride Carbon Dioxide Anion Gap BUN Cancelled Creatinine 0.84 Cancelled Estim Creat Clear Calc 83.54 Cancelled Est GFR (MDRD) Non-Af 93 BUN/Creatinine Ratio Glucose Calcium b-Hydroxybutyric mmol/L Urine Color Urine Clarity Urine pH Ur Specific Dearing Urine Protein Urine Glucose (UA) Urine Ketones [...] (Auto) Neut % (Auto) Lymph % (Auto) [place] % (Auto) Eos % (Auto) Baso % (Auto) Absolute Neuts (auto) Absolute Lymphs (auto) Nucleated RBC % Platelet Estimate Sodium Potassium Chloride Carbon Dioxide Anion Gap BUN Creatinine Estim Creat Clear Calc Est GFR (MDRD) Non-Af Cancelled BUN/Creatinine Ratio 12.0 Cancelled Glucose 339 H Cancelled Calcium 9.3 b-Hydroxybutyric mmol/L Urine Color Urine Clarity Urine pH Ur Specific Dearing Urine Protein Urine Glucose (UA) Urine Ketones [...] (Auto) Neut % (Auto) Lymph % (Auto) [place] % (Auto) Eos % (Auto) Baso % (Auto) Absolute Neuts (auto) Absolute Lymphs (auto) Nucleated RBC % Platelet Estimate Sodium Potassium Chloride Carbon Dioxide Anion Gap BUN Creatinine Estim Creat Clear Calc Est GFR (MDRD) Non-Af BUN/Creatinine Ratio Glucose Calcium Cancelled b-Hydroxybutyric mmol/L 9.5 Urine Color Yellow Urine Clarity Clear Urine pH 5.0 Ur Specific Dearing 1.030 Urine Protein 100 H Urine Glucose [...] No visible acute cardiopulmonary findings Reading Location: [id number] Rhythm Strip Rhythm Strip: Sinus Tach Rate: 112 Ectopy: None EKG Initial EKG: Attestation: I personally reviewed and interpreted this EKG as follows: Interpretation: No Acute Injury Pattern, Sinus Tachycardia and Non-Specific ST Changes Management Discussion w/another healthcare provider: Hospitalist Critical Care Time Critical Care Time: Yes Critical care time (excluding procedures): 30-74 minutes (32 min), Including time spent:, Discussing w/Patient &/or Family/Can Dragger, Discussing w/Consultants, Arranging Admission or Transfer and Performing Direct Patient Care at Bedside Discharge Plan Dx/Rx/DC Orders Clinical Impression: DKA (diabetic ketoacidosis) Disposition Disposition: Acute Care Hospital [facility] Discharge Date/Time: 09/26/24 12:19 What to do if you have Problems For any increased pain, shortness of breath, bleeding, nausea or vomiting, chestpain, or any unexpected problems, contact your Primary Care Provider. Call [facility] ([phone]) or report to the closest Emergency Room. Call 911 if necessary. 09/26/24 1634 <Electronically signed by Aba Murguia MD> Cosigner Signature (if applicable): CC: Dr. Meena Flowers, DO ~ Signed [facility] Work Phone: 1(401) 516-239603-21-2025 Consult note Author Dino Hernandez [facility] Note Date/Time September 26, 2024 4:0 8pm [facility] Medical Records Department [address] [place] [address] Consultation - Cold Type Composing Machine Operator 09/26/24 1602 MR#: [id number] Acct: [id number] Name: BRETT BOBBY Rep #:[id number] : 1990 33 From: Dino Hernandez MD [...] recent steroid rx. No documented SLG2i rx. [facility] Medical History Tobacco abuse Stage 3a chronic [...] Enoxaparin 40 Mg/0.4 Ml Syringe SC DAILY [facility] Dextrose 250 mls @ 999 mls/hr 09/26/24 12:38 Dextrose 10%-Water IV .Q16M PRN Hypoglycemic Protocol Protocol Insulin Human Lispro 100 unit/ 100 mls @ 6.849 mls/hr 09/26/24 12:38 Sodium Chloride CONT INF .[id number] [facility] Protocol Dextrose/Sodium Chloride 1,000 mls @ 150 mls/hr 09/26/24 15:15 09/26/24 15:19 IV 150 mls/hr .Q6H40M [facility] Administration Ceftriaxone Sodium 1 gm in 50 mls @ 100 mls/hr 09/26/24 15:55 Rocephin IV Q24 [facility] Insulin Glargine 24 unit 09/26/24 15:27 Insulin Glargine-Yfgn 100 Unit/Ml Pen SC DAILY [facility] Ondansetron HCl 4 mg 09/26/24 12:38 [...] (Auto) 68.9, Lymph % (Auto) 13.3 L, [place] % (Auto) 4.4, Eos % (Auto) 12.0 [...] Clarity Clear, Urine pH 5.0, Ur Specific Dearing 1.030, Urine Protein 100 H, Urine Glucose [...] No visible acute cardiopulmonary findings Reading Location: [facility] Assessment and Plan . Assessment and plan: [...] be leukamoid in repsonse to hyperglycemia Dino Hernadnez MD [facility] Tele[facility] Critical Care Time: 60 min The entirety of this encounter was done via Telemedicine 09/26/24 2677 <Electronically signed by Dino Hernandez MD> Cosigner Signature (if applicable): CC: Dr. Meena Flowers DO~ Signed [facility] Work Phone: 1(308) 342-654803-21-2025 History and physical note [facility] Note Date/Time September 26, 2024 3:5 7pm [facility] Medical Records Department [address] [address] History & Physical Exam 09/26/24 1049 MR#: [id number] Acct: [id number] Name: BRETT BOBBY Rep #:[id number] : 1990 33 From: Maggie Reed MD [...] in the ED were BP of 116/78, WI of 121, RR of 16 and temp [...] be managed for DKA and probable UTI [facility] Medical History Tobacco abuse Stage 3a chronic [...] no sensory deficits noted Coordination / Balance: [id number] test normal Motor Exam: general weakness Psych [...] Clarity Clear, Urine pH 5.0, Ur Specific Dearing 1.030, Urine Protein 100 H, Urine Glucose [...] prophylaxis: lovenox Charges/Coding Visit Charges Inpatient E&M: 91266 Init Hosp L3 09/26/24 2063 <Electronically signed by Maggie Reed MD> Cosigner Signature (if applicable): CC: Dr. Meena Flowers DO; Dr. Maggie Reed MD~ Signed [facility] Work Phone: 1(888) 488-831803-21-2025 Discharge summary [facility] Medical Records Department [address] [place] [address] Emergency Department Summary 09/26/24 MR#: [id number] Acct: [id number] Name: BRETT BOBBY Rep #:[id number] : 1990 33 From: Aba Murguia MD [...] (Auto) 68.9 Lymph % (Auto) 13.3 L [place] % (Auto) 4.4 Eos % (Auto) 12.0 [...] Color Urine Clarity Urine pH Ur Specific Dearing Urine Protein Urine Glucose (UA) Urine Ketones [...] (Auto) Neut % (Auto) Lymph % (Auto) [place] % (Auto) Eos % (Auto) Baso % (Auto) Absolute Neuts (auto) Absolute Lymphs (auto) Nucleated RBC % Platelet Estimate Sodium Potassium Chloride Cancelled Carbon Dioxide 5.7 L* Cancelled Anion Gap 35 H Cancelled BUN 10 Creatinine Estim Creat Clear Calc Est GFR (MDRD) Non-Af BUN/Creatinine Ratio Glucose Calcium b-Hydroxybutyric mmol/L Urine Color Urine Clarity Urine pH Ur Specific Dearing Urine Protein Urine Glucose (UA) Urine Ketones [...] (Auto) Neut % (Auto) Lymph % (Auto) [place] % (Auto) Eos % (Auto) Baso % (Auto) Absolute Neuts (auto) Absolute Lymphs (auto) Nucleated RBC % Platelet Estimate Sodium Potassium Chloride Carbon Dioxide Anion Gap BUN Cancelled Creatinine 0.84 Cancelled Estim Creat Clear Calc 83.54 Cancelled Est GFR (MDRD) Non-Af 93 BUN/Creatinine Ratio Glucose Calcium b-Hydroxybutyric mmol/L Urine Color Urine Clarity Urine pH Ur Specific Dearing Urine Protein Urine Glucose (UA) Urine Ketones [...] (Auto) Neut % (Auto) Lymph % (Auto) [place] % (Auto) Eos % (Auto) Baso % (Auto) Absolute Neuts (auto) Absolute Lymphs (auto) Nucleated RBC % Platelet Estimate Sodium Potassium Chloride Carbon Dioxide Anion Gap BUN Creatinine Estim Creat Clear Calc Est GFR (MDRD) Non-Af Cancelled BUN/Creatinine Ratio 12.0 Cancelled Glucose 339 H Cancelled Calcium 9.3 b-Hydroxybutyric mmol/L Urine Color Urine Clarity Urine pH Ur Specific Dearing Urine Protein Urine Glucose (UA) Urine Ketones [...] (Auto) Neut % (Auto) Lymph % (Auto) [place] % (Auto) Eos % (Auto) Baso % (Auto) Absolute Neuts (auto) Absolute Lymphs (auto) Nucleated RBC % Platelet Estimate Sodium Potassium Chloride Carbon Dioxide Anion Gap BUN Creatinine Estim Creat Clear Calc Est GFR (MDRD) Non-Af BUN/Creatinine Ratio Glucose Calcium Cancelled b-Hydroxybutyric mmol/L 9.5 Urine Color Yellow Urine Clarity Clear Urine pH 5.0 Ur Specific Dearing 1.030 Urine Protein 100 H Urine Glucose [...] No visible acute cardiopulmonary findings Reading Location: [facility] Rhythm Strip Rhythm Strip: Sinus Tach Rate: 112 Ectopy: None EKG Initial EKG: Attestation: I personally reviewed and interpreted this EKG as follows: Interpretation: No Acute Injury Pattern, Sinus Tachycardia and Non-Specific ST Changes Management Discussion w/another healthcare provider: Hospitalist Critical Care Time Critical Care Time: Yes Critical care time (excluding procedures): 30-74 minutes (32 min), Including time spent:, Discussing w/Patient &/or Family/Can Dragger, Discussing w/Consultants, Arranging Admission or Transfer and Performing Direct Patient Care at Bedside Discharge Plan Dx/Rx/DC Orders Clinical Impression: DKA (diabetic ketoacidosis) Disposition Disposition: Acute Care Hospital [facility] Discharge Date/Time: 09/26/24 12:19 What to do if you have Problems For any increased pain, shortness of breath, bleeding, nausea or vomiting, chestpain, or any unexpected problems, contact your Primary Care Provider. Call [facility] ([phone]) or report tothe closest Emergency Room. Call 911 if necessary. 09/26/24 1634 Cosigner Signature (if applicable): CC: Dr. Meena Flowers, DO ~ Signed [facility]03-21-2025 Consult note [facility] Medical Records Department [address] [place] [address] Consultation - Cold Type Composing Machine Operator 09/26/24 1602 MR#: [id number] Acct: [id number] Name: BRETT BOBBY Rep #:[id number] : 1990 33 From: Dino Hernandez MD [...] recent steroid rx. No documented SLG2i rx. [facility] Medical History Tobacco abuse Stage 3a chronic [...] mls/hr 09/26/24 12:38 Sodium Chloride CONT INF .[id number] [facility] Protocol Dextrose/Sodium Chloride 1,000 mls @ 150 mls/hr 09/26/24 15:15 09/26/24 15:19 IV 150 mls/hr .Q6H40M [facility] Administration Ceftriaxone Sodium 1 gm in 50 mls @ 100 mls/hr 09/26/24 15:55 Rocephin IV Q24 [facility] Insulin Glargine 24 unit 09/26/24 15:27 [...] (Auto) 68.9, Lymph % (Auto) 13.3 L, [place] % (Auto) 4.4, Eos % (Auto) 12.0 [...] Clarity Clear, Urine pH 5.0, Ur Specific Dearing 1.030, Urine Protein 100 H, Urine Glucose [...] No visible acute cardiopulmonary findings Reading Location: [id number] Assessment and Plan . Assessment and plan: [...] applicable): CC: Dr. Meena Flowers, DO~ Signed [facility]03-21-2025 History and physical note [facility] Medical Records Department [address] [place] [address] History & Physical Exam 09/26/24 1049 MR#: [id number] Acct: [id number] Name: BRETT BOBBY Rep #:[id number] : 1990 33 From: Maggie Reed MD [...] in the ED were BP of 116/78, WI of 121, RR of 16 and temp [...] be managed for DKA and probable UTI [facility] Medical History Tobacco abuse Stage 3a chronic [...] no sensory deficits noted Coordination / Balance: jczgzj-bk-fvco test normal Motor Exam: general weakness Psych [...] Clarity Clear, Urine pH 5.0, Ur Specific Dearing 1.030, Urine Protein 100 H, Urine Glucose [...] prophylaxis: lovenox Charges/Coding Visit Charges Inpatient E&M: 06721 Init Hosp L3 09/26/24 1557 Cosigner Signature (if applicable): CC: Dr. Meena Flowers DO; Dr. Maggie Reed MD~ Signed [facility]03-21-2025 Evaluation note* Diagnosis Onset Date Resolution Status Admit Date DKA (diabetic ketoacidosis) acute September 26, 2024 11:04am [facility] Work Phone: 1(214) 367-829603-21-2025 Radiology Diagnostic study note [facility] Imaging Services [address] [place], [place] [id number] Chest 1 View (Portable) MR#: [id number] Acct: [id number] Name: BRETT BOBBY Rep #: [id number] : 1990 F 33 From: Simin Honeycutt MD PCP: Dr. Meena Flowers DO Status: REG ER Study:Chest 1 View (Portable) Date of Exam: 09/26/24 Exam# [id number] Ordering Dr: Steff Murguia MD PROCEDURE: CHEST [...] No visible acute cardiopulmonary findings Reading Location: [id number] CC: Dr. Aba Murguia MD; Dr. Meena Flowers DO ~ Vehicle Return Associate: Signed [facility]03-21-2025 [facility] Medical Records Department [address] [place] [address] History Physical Exam 09/26/24 1049 MR#: [id number] Acct: [id number] Name: BRETT BOBBY Rep #: [id number] : 1990 33 From: Maggie Reed MD PCP: Dr. Meena Flowers DO Status:ADM IN Location: ICU [id number] HPI - General General Date of Admission: [...] in the ED were BP of 116/78, WI of 121, RR of 16 and temp [...] be managed for DKA and probable UTI [facility] Medical History Tobacco abuse Stage 3a chronic [...] Skin Exam: no br (more content not included)...[facility]09-28-2024 [facility] Medical Records Department [address] [place] [address] Discharge Summary 04/05/24 1339 MR#: [id number] Acct: [id number] Name: BRETT BOBBY Rep #: [id number] : 1990 33 From: Michael Acosta DO PCP: Dr. Meena Flowers DO Status:DIS IN Location: ICU [id number] Providers Date of Admission: 04/04/24 Date of [...] was seen in the emergency room at [facility] with a chief complaint of nausea, [...] Glucose 97 04/05/24 06 (more content not included)...[facility]11-18-2023 Progress note Author Douglas Serrano [facility] May 26, 2023 12:43pm Note Date/Time May 26, 2023 7:07am [facility] Medical Records Department [address] [place] [address] Progress Note - Hospitalist 05/26/2304 MR#: [id number] Acct: [id number] Name: BRETT BOBBY Rep #:[id number] : 1990 32 From: Douglas Serrano DO [...] 78.8 H, Lymph % (Auto) 12.4 L, [place] % (Auto) 7.1, Eos % (Auto) 0.1, [...] Clarity Clear, Urine pH 5.0, Ur Specific Dearing 1.025, Urine Protein 30 H, Urine Glucose [...] % (Auto) 67.2, Lymph % (Auto) 19.4, [place]% (Auto) 10.6 H, Eos % (Auto) 1.4, [...] no surrogate. Charges/Coding Visit Charges Inpatient E&M: 37522 Subs Hosp L2 05/26/23 1243 <Electronically signed by Douglas Serrano DO> Cosigner Signature (if applicable): CC: ~ Signed [facility] Work Phone: 1(440) 260-694611-18-2023 Discharge summary Author Risa Gatica [facility] May 25, 2023 11:39pm Note Date/Time May 25, 2023 5:29pm [facility] Medical Records Department [address] [place] [address] Emergency Department Summary 05/25/23 MR#: [id number] Acct: [id number] Name: BRETT BOBBY Rep #:[id number] : 1990 32 From: Risa Gatica MD [...] Medical decision making narrative: Patient placed on monitor worker. EKG obtained to evaluate for cardiac arrhythmia/ischemia. [...] 78.8 H Lymph % (Auto) 12.4 L [place] % (Auto) 7.1 Eos % (Auto) 0.1 [...] Clarity Clear Urine pH 5.0 Ur Specific Dearing 1.025 Urine Protein 30 H Urine Glucose [...] 18:22 EST Reading Location ID and State: [facility] [place] Tel , Service support , EKG Initial [...] (30 minutes), Includingtime spent:, Discussing w/Patient &/or Family/Can Dragger, Discussing w/Consultants and Arranging Admission or Transfer Discharge Plan Dx/Rx/DC Orders Clinical Impression: DKA (diabetic ketoacidosis) Disposition Disposition: Acute Care Hospital [facility] Discharge Date/Time: 05/25/23 21:36 What to do if you have Problems For any increased pain, shortness of breath, bleeding, nausea or vomiting, chestpain, or any unexpected problems, contact your Primary Care Provider. Call [facility] ([phone]) or report to the closest Emergency Room. Call 911 if necessary. 05/25/23 8532 <Electronically signed by Risa Gatica MD> Cosigner Signature (if applicable): CC: Dr. Meena Flowers DO ~ Signed [facility] Work Phone: 1(411) 450-810611-18-2023 History and physical note Author David Miramontes [facility] May 25, 2023 10:55pm Note Date/Time May 25, 2023 7:38pm [facility] Medical Records Department [address] [facility] [place] [address] H&P Exam - Hospitalist 05/25/231936 MR#: [id number] Acct: [id number] Name: BRETT BOBBY Rep #:[id number] : 1990 32 From: David Miramontes MD [...] 78.8 H, Lymph % (Auto) 12.4 L, [place] % (Auto) 7.1, Eos % (Auto) 0.1, [...] Clarity Clear, Urine pH 5.0, Ur Specific Dearing 1.025, Urine Protein 30 H, Urine Glucose [...] no surrogate. Charges/Coding Visit Charges Inpatient E&M: 82189 Init Hosp L3 05/25/23 8660 <Electronically signed by David Miramontes MD> Cosigner Signature (if applicable): CC: Dr. David Miramontes MD; Dr. Meena Flowers DO~ Signed [facility] Work Phone: Discharge summary Author Douglas Serrano [facility] May 26, 2023 1:45pm Note Date/Time May 26, 2023 1:44pm [facility] Medical Records Department [address] [place] [address] Discharge Summary 05/26/23 1342 MR#: [id number] Acct: [id number] Name: BRETT BOBBY Rep #:[id number] : 1990 32 From: Douglas Serrano DO [...] 78.8 H, Lymph % (Auto) 12.4 L, [place] % (Auto) 7.1, Eos % (Auto) 0.1, [...] Clarity Clear, Urine pH 5.0, Ur Specific Dearing 1.025, Urine Protein 30 H, Urine Glucose [...] % (Auto) 67.2, Lymph % (Auto) 19.4, [place]% (Auto) 10.6 H, Eos % (Auto) 1.4, [...] 18:22 EST Reading Location ID and State: [address] [place] [address] Tel , Service support , D/C Instructions [...] Self Care Charges/Coding Visit Charges Inpatient E&M: 69477 Disch Hosp 05/26/23 1345 <Electronically signed by Douglas Serrano DO> Cosigner Signature (if applicable): CC: Dr. Douglas Serrano, DO; Dr. Meena Flowers, DO~ Signed [facility] Work Phone: evaluation note* Diagnosis Onset Date Resolution Status Diabetic ketoacidosis acute Hyperkalemia acute Nausea and vomiting acute [facility] Work Phone: Evaluation noteNo assessment information available [facility] Work Phone: evaluation note* Diagnosis Onset Date Resolution Status DKA (diabetic ketoacidosis) acute [facility] Work Phone: evaluation note* Diagnosis Onset Date Resolution Status DKA (diabetic ketoacidosis) acute Tobacco abuse acute [facility] Work Phone: evaluation note* Diagnosis Onset Date Resolution Status DKA (diabetic ketoacidosis) resolved [facility] Work Phone: evaluation note* Diagnosis Onset Date Resolution Status Admit Date DKA (diabetic ketoacidosis) acute September 26, 2024 11:04am [facility] Work Phone: [facility] Work Phone: Hospital Discharge instructions Additional Instructions Do sitz baths three times a day. [facility] Work Phone: Reason for referral (narrative)No reason for referral information availableTrihealth [facility] Work Phone: Chief Complaint and Reason [...] No February 02, 2022 9:05pm Power of Laundry Machine Mechanic No February 02 9:05pm Advance Directive Response Recorded Date/ Time Advance Directives No November 19 5 5:00pm Living Will No May 23, 023 12:55am Power of Laundry Machine Mechanic No May 23, 2023 12:55am Advance Directive Response Recorded Date/ Time Advance Directives No November 19 5 5:00pm Living Will No May 25, 2 023 5:41pm Power of Laundry Machine Mechanic No May 25, 2023 5:41pm Advance Directive Response Recorded Date/ Time Advance Directives No November 19 5 5:00pm Living Will No May 25, 2 023 9:32pm Power of Laundry Machine Mechanic No May 25, 2023 9:32pm Advance Directive Response Recorded Date/ Time Advance Directives No November 19 5 5:00pm Living Will No June 05, 2 023 12:53pm Power of Laundry Machine Mechanic No June 05, 2023 12:53pm Advance Directive Response Recorded Date/ Time Advance Directives No November 19 5 6:00pm Living Will No September 24, 2023 12:57pm Power of Laundry Machine Mechanic No September 23 12:57pm Advance Directive Response Recorded Date/ Time Living Will No September 26, 2024 10:07am Do you have a Healthcare Power of Laundry Machine Mechanic? No September 26, 2024 10:07am Advance Directives No November 19 5 6:00pm Advance Directive Response Recorded Date/ Time Living Will No September 26, 2024 12:20pm Do you have a Healthcare Power of Laundry Machine Mechanic? No September 26, 2024 12:20pm Advance Directives [...] section and content) DATE CREATED AUTHOR 10/08/2024 [facility] FOR RECORDS PERTAINING TO PATIENTS WHO [...] BE BASED ON THE PRIMARY CLINICAL RECORDS. [facility]. provides no warranty or guarantee of the accuracy or completeness of information in this document.
[2025-01-11 22:21] LABS: SITE Not entered; Time Given 22:19:19; VBG BASE EXCESS -25 mmol/L (-1.0-3.5); VBG PO2 60 mmHg (25-40); VBG SO2 77 % (50-70); VBG TCO2 6 mmol/L (23-33)
--- OUTSIDE RECORDS SUMMARY | 2025-01-11 22:30 | XMS RPT_ITS | CCD ---
Author Organization [facility] Care Team Providers Care Wire Tester Name Role Phone Meena Flowers Primary Care Provider MD Doug Montes Emergency Provider Dr. Dian Galan Admit Provider Dr. Dian Galan Attending Provider Dr. Dian Galan Other Provider Dr. Len Coyne Attending Provider Dr. Len Coyne Other Provider Dr. Michael Acosta Other Provider Dr. Meena Flowers Primary Care Provider [phone] Risa Gatica Emergency Provider [phone] [...] JENNINGS, Dr. Maggie Castro Other Provider [phone] Anaya JENNINGS, Dr. 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, [address] HCT Normal 37-47 [facility] Comment on above: Result Comment: Canc elled via OM: Order cancelled - Patient discharged Performed By: #### L 501.9985 #### [facility] [address] [place], [address] HGB Normal 12.0-15.0 [facility] Comment on above: Result Comment: Canc elled via OM: Order cancelled - Patient discharged Performed By: #### L 501.9985 #### [facility] [address] [place], [address] MCH Normal 27.0-32.0 [facility] Comment on above: Result Comment: Canc elled via OM: Order cancelled - Patient discharged Performed By: #### L 501.9985 #### [facility] [address] [place], [address] MCHC Normal 32-36 [facility] Comment on above: Result Comment: Canc elled via OM: Order cancelled - Patient discharged Performed By: #### L 501.9985 #### [facility] [address] [place], [address] MCV Normal 81-99 [facility] Comment on above: Result Comment: Canc elled via OM: Order cancelled - Patient discharged Performed By: #### L 501.9985 #### [facility] [address] [place], [address] NEUT% Normal 47-70 [facility] Comment on above: Result Comment: Canc elled via OM: Order cancelled - Patient discharged Performed By: #### L 501.9985 #### [facility] [address] [place], [address] PLT Normal 150-450 [facility] Comment on above: Result Comment: Canc elled via OM: Order cancelled - Patient discharged Performed By: #### L 501.9985 #### [facility] [address] [place], [address] RBC Normal 4.2-5.4 [facility] Comment on above: Result Comment: Canc elled via OM: Order cancelled - Patient discharged Performed By: #### L 501.9985 #### [facility] [address] [place], [address] RDW CV Normal 11.6-14.6 [facility] Comment on above: Result Comment: Canc elled via OM: Order cancelled - Patient discharged Performed By: #### L 501.9985 #### [facility] [address] [place], [address] RDW SD Normal 35.1-43.9 [facility] Comment on above: Result Comment: Canc elled via OM: Order cancelled - Patient discharged Performed By: #### L 501.9985 #### [facility] [address] [place], [address] WBC Normal 4.4-11.0 [facility] Comment on above: Result Comment: Canc elled via OM: Order cancelled - Patient discharged Performed By: #### L 501.9985 #### [facility] [address] [place], [address] CBC W/Diff, Automatedon - Absolute Neut Normal 2.0-7.7 [facility] Comment on above: Result Comment: Canc elled via OM: Order cancelled - Patient discharged Performed By: #### L 501.9985 #### [facility] [address] [place], [address] HCT Normal 37-47 [facility] Comment on above: Result Comment: Canc elled via OM: Order cancelled - Patient discharged Performed By: #### L 501.9985 #### [facility] [address] [place], [address] HGB Normal 12.0-15.0 [facility] Comment on above: Result Comment: Canc elled via OM: Order cancelled - Patient discharged Performed By: #### L 501.9985 #### [facility] [address] [place], [address] MCH Normal 27.0-32.0 [facility] Comment on above: Result Comment: Canc elled via OM: Order cancelled - Patient discharged Performed By: #### L 501.9985 #### [facility] [address] [place], [address] MCHC Normal 32-36 [facility] Comment on above: Result Comment: Canc elled via OM: Order cancelled - Patient discharged Performed By: #### L 501.9985 #### [facility] [address] [place], [address] MCV Normal 81-99 [facility] Comment on above: Result Comment: Canc elled via OM: Order cancelled - Patient discharged Performed By: #### L 501.9985 #### [facility] [address] [place], [address] NEUT% Normal 47-70 [facility] Comment on above: Result Comment: Canc elled via OM: Order cancelled - Patient discharged Performed By: #### L 501.9985 #### [facility] [address] [place], [address] PLT Normal 150-450 [facility] Comment on above: Result Comment: Canc elled via OM: Order cancelled - Patient discharged Performed By: #### L 501.9985 #### [facility] [address] [place], [address] RBC Normal 4.2-5.4 [facility] Comment on above: Result Comment: Canc elled via OM: Order cancelled - Patient discharged Performed By: #### L 501.9985 #### [facility] [address] [place], [address] RDW CV Normal 11.6-14.6 [facility] Comment on above: Result Comment: Canc elled via OM: Order cancelled - Patient discharged Performed By: #### L 501.9985 #### [facility] [address] [place], [address] RDW SD Normal 35.1-43.9 [facility] Comment on above: Result Comment: Canc elled via OM: Order cancelled - Patient discharged Performed By: #### L 501.9985 #### [facility] [address] [place], [address] WBC Normal 4.4-11.0 [facility] Comment on above: Result Comment: Canc elled via OM: Order cancelled - Patient discharged Performed By: #### L 501.9985 #### [facility] [address] [place], [address] CBC W/Diff, Automatedon 03-2 Absolute Neut Normal 2.0-7.7 [facility] Comment on above: Result Comment: Canc elled via OM: Order cancelled - Patient discharged Performed By: #### L 100.0100 #### [facility] [address] [place], [address] HCT Normal 37-47 [facility] Comment on above: Result Comment: Canc elled via OM: Order cancelled - Patient discharged Performed By: #### L 100.0100 #### [facility] [address] [place], [address] HGB Normal 12.0-15.0 [facility] Comment on above: Result Comment: Canc elled via OM: Order cancelled - Patient discharged Performed By: #### L 100.0100 #### [facility] [address] [place], [address] MCH Normal 27.0-32.0 [facility] Comment on above: Result Comment: Canc elled via OM: Order cancelled - Patient discharged Performed By: #### L 100.0100 #### [facility] [address] [place], [address] MCHC Normal 32-36 [facility] Comment on above: Result Comment: Canc elled via OM: Order cancelled - Patient discharged Performed By: #### L 100.0100 #### [facility] [address] [place], [address] MCV Normal 81-99 [facility] Comment on above: Result Comment: Canc elled via OM: Order cancelled - Patient discharged Performed By: #### L 100.0100 #### [facility] [address] [place], [address] NEUT% Normal 47-70 [facility] Comment on above: Result Comment: Canc elled via OM: Order cancelled - Patient discharged Performed By: #### L 100.0100 #### [facility] [address] [place], [address] PLT Normal 150-450 [facility] Comment on above: Result Comment: Canc elled via OM: Order cancelled - Patient discharged Performed By: #### L 100.0100 #### [facility] [address] [place], [address] RBC Normal 4.2-5.4 [facility] Comment on above: Result Comment: Canc elled via OM: Order cancelled - Patient discharged Performed By: #### L 100.0100 #### [facility] [address] [place], [address] RDW CV Normal 11.6-14.6 [facility] Comment on above: Result Comment: Canc elled via OM: Order cancelled - Patient discharged Performed By: #### L 100.0100 #### [facility] [address] [place], [address] RDW SD Normal 35.1-43.9 [facility] Comment on above: Result Comment: Canc elled via OM: Order cancelled - Patient discharged Performed By: #### L 100.0100 #### [facility] [address] [place], [address] WBC Normal 4.4-11.0 [facility] Comment on above: Result Comment: Canc elled via OM: Order cancelled - Patient discharged Performed By: #### L 100.0100 #### [facility] [address] [place], [address] CBC W/Diff, Automatedon 03-2 -2024 Absolute Neut Normal 2.0-7.7 [facility] Comment on above: Result Comment: Canc elled via OM: Order cancelled - Patient discharged Performed By: #### L 500.2500 #### [facility] [address] [place], [address] HCT Normal 37-47 [facility] Comment on above: Result Comment: Canc elled via OM: Order cancelled - Patient discharged Performed By: #### L 500.2500 #### [facility] [address] [place], [address] HGB Normal 12.0-15.0 [facility] Comment on above: Result Comment: Canc elled via OM: Order cancelled - Patient discharged Performed By: #### L 500.2500 #### [facility] [address] [place], [address] MCH Normal 27.0-32.0 [facility] Comment on above: Result Comment: Canc elled via OM: Order cancelled - Patient discharged Performed By: #### L 500.2500 #### [facility] [address] [place], [address] MCHC Normal 32-36 [facility] Comment on above: Result Comment: Canc elled via OM: Order cancelled - Patient discharged Performed By: #### L 500.2500 #### [facility] [address] [place], [address] MCV Normal 81-99 [facility] Comment on above: Result Comment: Canc elled via OM: Order cancelled - Patient discharged Performed By: #### L 500.2500 #### [facility] [address] [place], [address] NEUT% Normal 47-70 [facility] Comment on above: Result Comment: Canc elled via OM: Order cancelled - Patient discharged Performed By: #### L 500.2500 #### [facility] [address] [place], [address] PLT Normal 150-450 [facility] Comment on above: Result Comment: Canc elled via OM: Order cancelled - Patient discharged Performed By: #### L 500.2500 #### [facility] [address] [place], [address] RBC Normal 4.2-5.4 [facility] Comment on above: Result Comment: Canc elled via OM: Order cancelled - Patient discharged Performed By: #### L 500.2500 #### [facility] [address] [place], [address] RDW CV Normal 11.6-14.6 [facility] Comment on above: Result Comment: Canc elled via OM: Order cancelled - Patient discharged Performed By: #### L 500.2500 #### [facility] [address] [place], [address] RDW SD Normal 35.1-43.9 [facility] Comment on above: Result Comment: Canc elled via OM: Order cancelled - Patient discharged Performed By: #### L 500.2500 #### [facility] [address] [place], [address] WBC Normal 4.4-11.0 [facility] Comment on above: Result Comment: Canc elled via OM: Order cancelled - Patient discharged Performed By: #### L 500.2500 #### [facility] [address] [place], [address] CBC W/Diff, Automatedon 03-2 Absolute Neut Normal 2.0-7.7 [facility] Comment on above: Result Comment: Canc elled via OM: Order cancelled - Patient discharged Performed By: #### L 501.080 #### [facility] [address] [place], [address] HCT Normal 37-47 [facility] Comment on above: Result Comment: Canc elled via OM: Order cancelled - Patient discharged Performed By: #### L 501.080 #### [facility] [address] [place], [address] HGB Normal 12.0-15.0 [facility] Comment on above: Result Comment: Canc elled via OM: Order cancelled - Patient discharged Performed By: #### L 501.080 #### [facility] [address] [place], [address] MCH Normal 27.0-32.0 [facility] Comment on above: Result Comment: Canc elled via OM: Order cancelled - Patient discharged Performed By: #### L 501.080 #### [facility] [address] [place], [address] MCHC Normal 32-36 [facility] Comment on above: Result Comment: Canc elled via OM: Order cancelled - Patient discharged Performed By: #### L 501.080 #### [facility] [address] [place], [address] MCV Normal 81-99 [facility] Comment on above: Result Comment: Canc elled via OM: Order cancelled - Patient discharged Performed By: #### L 501.080 #### [facility] [address] [place], [address] NEUT% Normal 47-70 [facility] Comment on above: Result Comment: Canc elled via OM: Order cancelled - Patient discharged Performed By: #### L 501.080 #### [facility] [address] [place], [address] PLT Normal 150-450 [facility] Comment on above: Result Comment: Canc elled via OM: Order cancelled - Patient discharged Performed By: #### L 501.080 #### [facility] [address] [place], [address] RBC Normal 4.2-5.4 [facility] Comment on above: Result Comment: Canc elled via OM: Order cancelled - Patient discharged Performed By: #### L 501.080 #### [facility] [address] [place], [address] RDW CV Normal 11.6-14.6 [facility] Comment on above: Result Comment: Canc elled via OM: Order cancelled - Patient discharged Performed By: #### L 501.080 #### [facility] [address] [place], [address] RDW SD Normal 35.1-43.9 [facility] Comment on above: Result Comment: Canc elled via OM: Order cancelled - Patient discharged Performed By: #### L 501.080 #### [facility] [address] [place], [address] WBC Normal 4.4-11.0 [facility] Comment on above: Result Comment: Canc elled via OM: Order cancelled - Patient discharged Performed By: #### L 501.080 #### [facility] [address] [place], [address] Urine Cultureon 09-30-2024 URC Below infection level. Mixed Gram Pos Gram Neg Org Scobey Count 1000-10,000 MIXC Mixed contaminants. Submit a new specimen if indicated. Normal [facility] Comment on above: Performed By: #### L 501.080 #### [facility] [address] [place], [address] Basic Metabolic Profile (BMP )on 09-29-2024 BUN Normal 4-19 [facility] Comment on above: Result Comment: Canc elled via OM: Order cancelled - Patient discharged Performed By: #### L 500.2500 #### [facility] [address] [place], [address] BUN/CRE Normal 10-20 [facility] Comment on above: Result Comment: Canc elled via OM: Order cancelled - Patient discharged Performed By: #### L 500.2500 #### [facility] [address] [place], [address] Calcium Normal 7.6-11.0 [facility] Comment on above: Result Comment: Canc elled via OM: Order cancelled - Patient discharged Performed By: #### L 500.2500 #### [facility] [address] [place], [address] CL Normal 98-108 [facility] Comment on above: Result Comment: Canc elled via OM: Order cancelled - Patient discharged Performed By: #### L 500.2500 #### [facility] [address] [place], [address] CO2 Normal 21.0-32.0 [facility] Comment on above: Result Comment: Canc elled via OM: Order cancelled - Patient discharged Performed By: #### L 500.2500 #### [facility] [address] [place], [address] CREAT,SERUM Normal 0.70-1.20 [facility] Comment on above: Result Comment: Canc elled via OM: Order cancelled - Patient discharged Performed By: #### L 500.2500 #### [facility] [address] [place], [address] eGFR Normal >60 [facility] Comment on above: Result Comment: Canc elled via OM: Order cancelled - Patient discharged Performed By: #### L 500.2500 #### [facility] [address] [place], [address] GAP Normal 5-15 [facility] Comment on above: Result Comment: Canc elled via OM: Order cancelled - Patient discharged Performed By: #### L 500.2500 #### [facility] [address] [place], [address] GLU Normal 70-99 [facility] Comment on above: Result Comment: Canc elled via OM: Order cancelled - Patient discharged Performed By: #### L 500.2500 #### [facility] [address] [place], [address] Potassium Normal 3.3-5.1 [facility] Comment on above: Result Comment: Canc elled via OM: Order cancelled - Patient discharged Performed By: #### L 500.2500 #### [facility] [address] [place], [address] Basic Metabolic Profile (BMP) Normal 133-145 [facility] Comment on above: Result Comment: Canc elled via OM: Order cancelled - Patient discharged Performed By: #### L 500.2500 #### [facility] [address] [place], [address] CBC W/Diff, Automatedon 03-2 4-2025 Absolute Neut Normal 2.0-7.7 [facility] Comment on above: Result Comment: Canc elled via OM: Order cancelled - Patient discharged Performed By: #### L 501.080 #### [facility] [address] [place], [address] HCT Normal 37-47 [facility] Comment on above: Result Comment: Canc elled via OM: Order cancelled - Patient discharged Performed By: #### L 501.080 #### [facility] [address] [place], [address] HGB Normal 12.0-15.0 [facility] Comment on above: Result Comment: Canc elled via OM: Order cancelled - Patient discharged Performed By: #### L 501.080 #### [facility] [address] [place], [address] MCH Normal 27.0-32.0 [facility] Comment on above: Result Comment: Canc elled via OM: Order cancelled - Patient discharged Performed By: #### L 501.080 #### [facility] [address] [place], [address] MCHC Normal 32-36 [facility] Comment on above: Result Comment: Canc elled via OM: Order cancelled - Patient discharged Performed By: #### L 501.080 #### [facility] [address] [place], [address] MCV Normal 81-99 [facility] Comment on above: Result Comment: Canc elled via OM: Order cancelled - Patient discharged Performed By: #### L 501.080 #### [facility] [address] [place], [address] NEUT% Normal 47-70 [facility] Comment on above: Result Comment: Canc elled via OM: Order cancelled - Patient discharged Performed By: #### L 501.080 #### [facility] [address] [place], [address] PLT Normal 150-450 [facility] Comment on above: Result Comment: Canc elled via OM: Order cancelled - Patient discharged Performed By: #### L 501.080 #### [facility] [address] [place], [address] RBC Normal 4.2-5.4 [facility] Comment on above: Result Comment: Canc elled via OM: Order cancelled - Patient discharged Performed By: #### L 501.080 #### [facility] [address] [place], [address] RDW CV Normal 11.6-14.6 [facility] Comment on above: Result Comment: Canc elled via OM: Order cancelled - Patient discharged Performed By: #### L 501.080 #### [facility] [address] [place], [address] RDW SD Normal 35.1-43.9 [facility] Comment on above: Result Comment: Canc elled via OM: Order cancelled - Patient discharged Performed By: #### L 501.080 #### [facility] [address] [place], [address] WBC Normal 4.4-11.0 [facility] Comment on above: Result Comment: Canc elled via OM: Order cancelled - Patient discharged Performed By: #### L 501.080 #### [facility] [address] [place], [address] Absolute neutrophil countOrd ered By: Maggie Reed on 09-28-2024 Neutrophils (Bld) [#/Vol] 3.8 10*3/uL 2.0-7.7 [facility] Anion gap in Serum or Plasma Ordered By: Dian Galan on 09-28-2024 Anion gap [Moles/Vol] 15 mmol/L 5-15 [facility] BUN/creatinine ratioOrdered By: Dian Galan on 09-28-2024 Urea nitrogen/Creatinine [Mass ratio] 5.5 mg/mg Low 10-20 [facility] Basic Metabolic Profile (BMP )on 09-28-2024 BUN Normal 4-19 [facility] Comment on above: Result Comment: Canc elled via OM: MD Ordered Performed By: #### L 500.2500 #### [facility] [address] [place], [address] Performed By: #### L 501.080 #### [facility] [address] [place], [address] BUN/CRE Normal 10-20 [facility] Comment on above: Result Comment: Canc elled via OM: MD Ordered Performed By: #### L 500.2500 #### [facility] [address] [place], [address] Performed By: #### L 501.080 #### [facility] [address] [place], [address] Calcium Normal 7.6-11.0 [facility] Comment on above: Result Comment: Canc elled via OM: MD Ordered Performed By: #### L 500.2500 #### [facility] [address] [place], [address] Performed By: #### L 501.080 #### [facility] [address] [place], [address] CL Normal 98-108 [facility] Comment on above: Result Comment: Canc elled via OM: MD Ordered Performed By: #### L 500.2500 #### [facility] [address] [place], [address] Performed By: #### L 501.080 #### [facility] [address] [place], [address] CO2 Normal 21.0-32.0 [facility] Comment on above: Result Comment: Canc elled via OM: MD Ordered Performed By: #### L 500.2500 #### [facility] [address] [place], [address] Performed By: #### L 501.080 #### [facility] [address] [place], [address] CREAT,SERUM Normal 0.70-1.20 [facility] Comment on above: Result Comment: Canc elled via OM: MD Ordered Performed By: #### L 500.2500 #### [facility] [address] [place], [address] Performed By: #### L 501.080 #### [facility] [address] [place], [address] eGFR Normal >60 [facility] Comment on above: Result Comment: Canc elled via OM: MD Ordered Performed By: #### L 500.2500 #### [facility] [address] [place], [address] Performed By: #### L 501.080 #### [facility] [address] [place], [address] GAP Normal 5-15 [facility] Comment on above: Result Comment: Canc elled via OM: MD Ordered Performed By: #### L 500.2500 #### [facility] [address] [place], [address] Performed By: #### L 501.080 #### [facility] [address] [place], [address] GLU Normal 70-99 [facility] Comment on above: Result Comment: Canc elled via OM: MD Ordered Performed By: #### L 500.2500 #### [facility] [address] [place], [address] Performed By: #### L 501.080 #### [facility] [address] [place], [address] Potassium Normal 3.3-5.1 [facility] Comment on above: Result Comment: Can elled via OM: MD Ordered Performed By: #### L 500.2500 #### [facility] [address] [place], [address] Performed By: #### L 501.080 #### [facility] [address] [place], [address] Basic Metabolic Profile (BMP) Normal 133-145 [facility] Comment on above: Result Comment: Can elled via OM: MD Ordered Performed By: #### L 500.2500 #### [facility] [address] [place], [address] Performed By: #### L 501.080 #### [facility] [address] [place], [address] BUN/CRE 5.5 RATIO Low 10-20 [facility] Comment on above: Performed By: #### L 501.9985 #### [facility] [address] [place], [address] Calcium [Mass/Vol] 8.0 mg/dL Normal 7.6-11.0 [facility] Comment on above: Performed By: #### L 501.9985 #### [facility] [address] [place], [address] Chloride [Moles/Vol] 104 mmol/L Normal 98-108 [facility] Comment on above: Performed By: #### L 501.9985 #### [facility] [address] [place], [address] CO2 [Moles/Vol] 14.7 mmol/L Low 21.0-32.0 [facility] Comment on above: Performed By: #### L 501.9985 #### [facility] [address] [place], [address] Creatinine [Mass/Vol] 0.65 mg/dL Low 0.70-1.20 [facility] [facility] Comment on above: Performed By: #### L 501.9985 #### [facility] [address] [place], [address] ECRCL 109.51 ml/min Normal 50-250 [facility] Comment on above: Performed By: #### L [id number] #### [facility] [address] [place], [address] GAP 15 Normal 5-15 [facility] Comment on above: Performed By: #### L [id number] #### [facility] [address] [place], [address] GFR/1.73 sq M.predicted among non-blacks MDRD (S/P/Bld) [Vol rate/Area] 119 mL/min/{1.73_m2} Normal >60 [facility] Comment on above: Result Comment: mL/m in/1.73m2 CKD-EPI Creatinine Equation (2020) Performed By: #### L [id number] #### [facility] [address] [place], [address] Glucose [Mass/Vol] 272 mg/dL High 70-99 [facility] Comment on above: Performed By: #### L [id number] #### [facility] [address] [place], [address] Potassium [Moles/Vol] 3.6 mmol/L Normal 3.3-5.1 [facility] Comment on above: Performed By: #### L 501.9985 #### [facility] [address] [place], [address] Sodium [Moles/Vol] 133 mmol/L Normal 133-145 [facility] Comment on above: Performed By: #### L [id number] #### [facility] [address] [place], [address] Urea nitrogen [Mass/Vol] 4 mg/dL Normal 4-19 [facility] Comment on above: Performed By: #### L [id number] #### [facility] [address] [place], [address] BUN/CRE 7.0 RATIO Low 10-20 [facility] Comment on above: Performed By: #### L 501.080 #### [facility] [address] [place], [address] Calcium [Mass/Vol] 8.0 mg/dL Normal 7.6-11.0 [facility] Comment on above: Performed By: #### L 501.080 #### [facility] [address] [place], [address] Chloride [Moles/Vol] 108 mmol/L Normal 98-108 [facility] Comment on above: Performed By: #### L 501.080 #### [facility] [address] [place], [address] CO2 [Moles/Vol] 15.8 mmol/L Low 21.0-32.0 [facility] Comment on above: Performed By: #### L 501.080 #### [facility] [address] [place], [address] Creatinine [Mass/Vol] 0.61 mg/dL Low 0.70-1.20 [facility] Comment on above: Performed By: #### L 501.080 #### [facility] [address] [place], [address] ECRCL 116.69 ml/min Normal 50-250 [facility] Comment on above: Performed By: #### L 501.080 #### [facility] [address] [place], [address] GAP 11 Normal 5-15 [facility] Comment on above: Performed By: #### L 501.080 #### [facility] [address] [place], [address] GFR/1.73 sq M.predicted among non-blacks MDRD (S/P/Bld) [Vol rate/Area] 120 mL/min/{1.73_m2} Normal >60 [facility] Comment on above: Result Comment: mL/m in/1.73m2 CKD-EPI Creatinine Equation (2020) Performed By: #### L 501.080 #### [facility] [address] [place], [address] Glucose [Mass/Vol] 114 mg/dL High 70-99 [facility] Comment on above: Performed By: #### L 501.080 #### [facility] [address] [place], [address] Potassium [Moles/Vol] 3.2 mmol/L Low 3.3-5.1 [facility] Comment on above: Result Comment: Hemo lysis present, Results??could be affected. ?? Performed By: #### L 501.080 #### [facility] [address] [place], [address] Sodium [Moles/Vol] 135 mmol/L Normal 133-145 [facility] Comment on above: Performed By: #### L 501.080 #### [facility] [address] [place], [address] Urea nitrogen [Mass/Vol] 4 mg/dL Normal 4-19 [facility] Comment on above: Performed By: #### L 501.080 #### [facility] [address] [place], [address] Potassium [Moles/Vol] 6.1 mmol/L Invalid Interpretation Code 3.3-5.1 [facility] Comment on above: Result Comment: Hemo lysis present, Results??could be affected. ?? HEMOLYSIS PRESENT Hemolysis present, Results??could be affected. ?? HEMOLYSIS PRESENT RESULT TNP IN [facility] AMENDED REPORT 09/28/24 0005 K previously reported as: Test not performed mmol/L Hemolysis present, Results??could be affected. ?? HEMOLYSIS PRESENT Performed By: #### L 501.080 #### [facility] [address] [place], [address] Basophil percentageOrdered B y: Maggie Reed on 09-28-2024 Basophils/100 WBC (Bld) 0.6 % 0-1 [facility] Bedside Glucoseon 09-28-2024 FINGERSTICK GLU 250 mg/dL High 74-106 [facility] Comment on above: Result Comment: KAZ GEMENT OF PATIENT CARE PER NURSING PROTOCOL Performed By: #### L 501.080 #### [facility] [address] [place], [address] FINGERSTICK GLU 85 mg/dL Normal 74-106 [facility] Comment on above: Result Comment: KAZ GEMENT OF PATIENT CARE PER NURSING PROTOCOL Performed By: #### L [id number] #### [facility] [address] [place], [address] FINGERSTICK GLU 106 mg/dL Normal 74-106 [facility] Comment on above: Result Comment: KAZ GEMENT OF PATIENT CARE PER NURSING PROTOCOL Performed By: #### L 501.080 #### [facility] [address] [place], [address] FINGERSTICK GLU 123 mg/dL High 74-106 [facility] Comment on above: Result Comment: KAZ GEMENT OF PATIENT CARE PER NURSING PROTOCOL Performed By: #### L 501.080 #### [facility] [address] [place], [address] CBC W/Diff, Automatedon 03-2 -2024 Absolute Lymph 1.97 X10 3/uL Normal 0.83-4.51 [facility] Comment on above: Performed By: #### L 501.080 #### [facility] [address] [place], [address] Absolute Neut 3.8 X10 3/uL Normal 2.0-7.7 [facility] Comment on above: Performed By: #### L 501.080 #### [facility] [address] [place], [address] Basophils/100 WBC (Bld) 0.6 % Normal 0-1 [facility] Comment on above: Performed By: #### L 501.080 #### [facility] [address] [place], [address] Eosinophils/100 WBC (Bld) 1.1 % Normal 0-5 [facility] Comment on above: Performed By: #### L 501.080 #### [facility] [address] [place], [address] Erythrocyte distribution width (RBC) [Ratio] 16.2 % High 11.6-14.6 [facility] Comment on above: Performed By: #### L 501.080 #### [facility] [address] [place], [address] Hematocrit (Bld) [Volume fraction] 35.9 % Low 37-47 [facility] Comment on above: Performed By: #### L 501.080 #### [facility] [address] [place], [address] Hemoglobin (Bld) [Mass/Vol] 11.8 g/dL Low 12.0-15.0 [facility] Comment on above: Performed By: #### L 501.080 #### [facility] [address] [place], [address] IG% 0.300 Normal 0.0-0.9 [facility] Comment on above: Result Comment: IG% - Immature Granulocytes (promyelocytes, myelocytes and metamyelocytes) > 1% indicates that a LEFT SHIFT is Present. Performed By: #### L 501.080 #### [facility] [address] [place], [address] Lymphocytes/100 WBC (Bld) 30.8 % Normal 19-41 [facility] Comment on above: Performed By: #### L 501.080 #### [facility] [address] [place], [address] MCH (RBC) [Entitic mass] 29.2 pg Normal 27.0-32.0 [facility] Comment on above: Performed By: #### L 501.080 #### [facility] [address] [place], [address] MCHC (RBC) [Mass/Vol] 32.9 g/dL Normal 32-36 [facility] Comment on above: Performed By: #### L 501.080 #### [facility] [address] [place], [address] MCV (RBC) [Entitic vol] 88.9 fL Normal 81-99 [facility] Comment on above: Performed By: #### L 501.080 #### [facility] [address] [place], [address] Monocytes/100 WBC (Bld) 7.5 % Normal 0-10 [facility] Comment on above: Performed By: #### L 501.080 #### [facility] [address] [place], [address] Neutrophils/100 WBC (Bld) 59.7 % Normal 47-70 [facility] Comment on above: Performed By: #### L 501.080 #### [facility] [address] [place], [address] Nucleated RBC (Bld) [#/Vol] 0 10*3/uL Normal 0-5 [facility] Comment on above: Performed By: #### L 501.080 #### [facility] [address] [place], [address] Platelet mean volume (Bld) [Entitic vol] 9.1 fL Normal 6.2-12.0 [facility] Comment on above: Performed By: #### L 501.080 #### [facility] [address] [place], [address] Platelets (Bld) [#/Vol] 312 10*3/uL Normal 150-450 [facility] Comment on above: Performed By: #### L 501.080 #### [facility] [address] [place], [address] RBC (Bld) [#/Vol] 4.04 10*6/uL Low 4.2-5.4 [facility] Comment on above: Performed By: #### L 501.080 #### [facility] [address] [place], [address] RDW SD 53.1 fl High 35.1-43.9 [facility] Comment on above: Performed By: #### L 501.080 #### [facility] [address] [place], [address] WBC (Bld) [#/Vol] 6.4 10*3/uL Normal 4.4-11.0 [facility] Comment on above: Performed By: #### L 501.080 #### [facility] [address] [place], [address] Carbon dioxide, total [Moles /volume] in Central venous bloodOrdered By: Dian Galan on 09-28-2024 CO2 [Moles/Vol] 14.7 mmol/L Low 21.0-32.0 [facility] Chloride assayOrdered By: Nia anam Galan on 09-28-2024 Chloride [Moles/Vol] 104 mmol/L 98-108 [facility] Discharge Instructionon 09-07 Discharge Instruction [facility] Medical Records Department [address] [place] [address] Instructions for Home/Discharge Instructions 09/28/24 0900 MR#: [id number] Acct: [id number] Name: BRETT BOBBY Rep #: [id number] : 1990 33 From: Bryce Julien MD [...] DO; Dr. Maggie Reed MD Signed Normal [facility] Eosinophil percentageOrdered By: Maggie Reed on 09-28-2024 Eosinophils/100 WBC (Bld) 1.1 % 0-5 [facility] Erythrocyte distribution wid th ratioOrdered By: Maggie Reed on 09-28-2024 Erythrocyte distribution width (RBC) [Ratio] 16.2 % High 11.6-14.6 [facility] Erythrocyte distribution wid th standard deviationOrdered By: Maggie Reed on 09-28-2024 Erythrocyte distribution width (RBC) [Entitic vol] 53.1 fL High 35.1-43.9 [facility] Estimation of creatinine patito aranceOrdered By: Dian Galan on 09-28-2024 Estimated Creatinine Clearance Calc 109.51 ml/min 50-250 [facility] GFR/1.73 sq M.predicted rey g non-blacks MDRD (S/P/Bld) [Vol rate/Area]Ordered By: Dian Galan on 09-28-2024 Estimated GFR (MDRD) Non-Af Amer 119 >60 [facility] Comment on above: mL/min/1.73m2 CKD-EP I Creatinine Equation (2020) Glucose measurement at bedsi deOrdered By: Bryce Julien on 09-28-2024 Bedside Glucose (Misc Panel) 250 mg/dL High 74-106 [facility] Comment on above: MANAGEMENT OF PATIEN T CARE PER NURSING PROTOCOL Hematocrit Auto (Bld) [Volum e fraction]Ordered By: Maggie Reed on 09-28-2024 Hematocrit (Bld) [Volume fraction] 35.9 % Low 37-47 [facility] Hemoglobin measurementOrdere d By: Maggie Reed on 09-28-2024 Hemoglobin (Bld) [Mass/Vol] 11.8 g/dL Low 12.0-15.0 [facility] Immature granulocytes/100 WB C Auto (Bld)Ordered By: Maggie Reed on 09-28-2024 Immature granulocytes/100 WBC (Bld) 0.300 % 0.0-0.9 [facility] Comment on above: IG% - Immature Granu locytes (promyelocytes, myelocytes and metamyelocytes) > 1% indicates that a LEFT SHIFT is Present. Lymphocytes Auto (Unsp spec) [#/Vol]Ordered By: Maggie Reed on 09-28-2024 Lymphocytes (Bld) [#/Vol] 1.97 10*3/uL 0.83-4.51 [facility] Lymphocytes/100 WBC Auto (Un sp spec)Ordered By: Maggie Reed on 09-28-2024 Lymphocytes/100 WBC (Bld) 30.8 % 19-41 [facility] MCV (mean corpuscular volume ) determinationOrdered By: Maggie Reed on 09-28-2024 MCV (RBC) [Entitic vol] 88.9 fL 81-99 [facility] Comment on above: Delta: 94.3 on 09/27-0555 Mean corpuscular hemoglobin (MCH) determinationOrdered By: Maggie Reed on 09-28-2024 MCH (RBC) [Entitic mass] 29.2 pg 27.0-32.0 [facility] Mean corpuscular hemoglobin concentration (MCHC) determinationOrdered By: Maggie Reed on 09-28-2024 MCHC (RBC) [Mass/Vol] 32.9 g/dL 32-36 [facility] Mean platelet volume determi nationOrdered By: Maggie Reed on 09-28-2024 Platelet mean volume (Bld) [Entitic vol] 9.1 fL 6.2-12.0 [facility] Monocyte percentageOrdered B y: Maggie Reed on 09-28-2024 Monocytes/100 WBC (Bld) 7.5 % 0-10 [facility] Neutrophil percentageOrdered By: Maggie Reed on 09-28-2024 Neutrophils/100 WBC (Bld) 59.7 % 47-70 [facility] Nucleated red blood cell per centageOrdered By: Maggie Reed on 09-28-2024 Nucleated RBC/100 WBC (Bld) [Ratio] 0 % 0-5 [facility] Platelet countOrdered By: Na hunter Reed on 09-28-2024 Platelets (Bld) [#/Vol] 312 10*3/uL 150-450 [facility] Potassium (Unsp spec) [Mass/ Vol]Ordered By: Dian Galan on 09-28-2024 Potassium [Moles/Vol] 3.6 mmol/L 3.3-5.1 [facility] RBC Auto (Bld) [#/Vol]Ordere d By: Maggie Reed on 09-28-2024 RBC (Bld) [#/Vol] 4.04 10*6/uL Low 4.2-5.4 [facility] Serum creatinine measurement (mass/volume)Ordered By: Dian Galan on 09-28-2024 Creatinine [Mass/Vol] 0.65 mg/dL Low 0.70-1.20 [facility] Serum glucose measurement (m ass/volume)Ordered By: Dian Galan on 09-28-2024 Glucose [Mass/Vol] 272 mg/dL High 70-99 [facility] Serum or plasma calcium xin urement (mass/volume)Ordered By: Dian Galan on 09-28-2024 Calcium [Mass/Vol] 8.0 mg/dL 7.6-11.0 [facility] Serum or plasma urea nitroge n measurement (mass/volume)Ordered By: Dian Galan on 09-28-2024 Urea nitrogen [Mass/Vol] 4 mg/dL 4-19 [facility] Sodium levelOrdered By: Auteleonora Galan on 09-28-2024 Sodium [Moles/Vol] 133 mmol/L 133-145 [facility] White blood cell (WBC) count Ordered By: Maggie Reed on 09-28-2024 WBC (Bld) [#/Vol] 6.4 10*3/uL 4.4-11.0 [facility] Basic Metabolic Profile (BMP )on 09-27-2024 BUN/CRE 9.0 RATIO Low 10-20 [facility] Comment on above: Performed By: #### L 400.0001 #### [facility] [address] [place], [place] [address]john [place] [place], [place], [id number] Calcium [Mass/Vol] 8.0 mg/dL Normal 7.6-11.0 [facility] Comment on above: Performed By: #### L [id number] #### [facility] [address] [place], [address] Chloride [Moles/Vol] 104 mmol/L Normal 98-108 [facility] Comment on above: Performed By: #### L [id number] #### [facility] [address] [place], [address] CO2 [Moles/Vol] 12.3 mmol/L Low 21.0-32.0 [facility] Comment on above: Performed By: #### L 400.0001 #### [facility] [address] [place], [address] Creatinine [Mass/Vol] 0.76 mg/dL Normal 0.70-1.20 [facility] Comment on above: Performed By: #### L 400.0001 #### [facility] [address] [place], [address] ECRCL 93.66 ml/min Normal 50-250 [facility] Comment on above: Performed By: #### L 400.0001 #### [facility] [address] [place], [address] GAP 16 High 5-15 [facility] Comment on above: Performed By: #### L 400.0001 #### [facility] [address] [place], [address] GFR/1.73 sq M.predicted among non-blacks MDRD (S/P/Bld) [Vol rate/Area] 106 mL/min/{1.73_m2} Normal >60 [facility] Comment on above: Result Comment: mL/m in/1.73m2 CKD-EPI Creatinine Equation (2020) Performed By: #### L 400.0001 #### [facility] [address] [place], [address] Glucose [Mass/Vol] 245 mg/dL High 70-99 [facility] Comment on above: Performed By: #### L 400.0001 #### [facility] [address] [place], [address] Potassium [Moles/Vol] 3.5 mmol/L Normal 3.3-5.1 [facility] Comment on above: Performed By: #### L 400.0001 #### [facility] [address] [place], [address] Sodium [Moles/Vol] 132 mmol/L Low 133-145 [facility] Comment on above: Performed By: #### L 400.0001 #### [facility] [address] [place], [address] Urea nitrogen [Mass/Vol] 7 mg/dL Normal 4-19 [facility] Comment on above: Performed By: #### L 400.0001 #### [facility] [address] [place], [address] GAP 18 High 5-15 [facility] Comment on above: Order Comment: Call MD with results STAT Performed By: #### L 501.080 #### [facility] [address] [place], [address] CO2 [Moles/Vol] 9.8 mmol/L Invalid Interpretation Code 21.0-32.0 [facility] Comment on above: Order Comment: CLEAN CATCH [...] same. Performed By: #### L [id number] #### [facility] [address] [place], [address] BUN/CRE 12.8 RATIO Normal 10-20 [facility] Comment on above: Order Comment: Call MD with results STAT Performed By: #### L 501.080 #### [facility] [address] [place], [address] Calcium [Mass/Vol] 8.2 mg/dL Normal 7.6-11.0 [facility] Comment on above: Order Comment: Call MD with results STAT Performed By: #### L 501.080 #### [facility] [address] [place], [address] Chloride [Moles/Vol] 103 mmol/L Normal 98-108 [facility] Comment on above: Order Comment: Call MD with results STAT Performed By: #### L 501.080 #### [facility] [address] [place], [address] CO2 [Moles/Vol] 8.4 mmol/L Invalid Interpretation Code 21.0-32.0 [facility] Comment on above: Order Comment: Call MD with results STAT Result Comment: Crit ical Result(s) Called at 09/27/2024-12:54 by Adriano Whatley??Results read back by same. Performed By: #### L 501.080 #### [facility] [address] [place], [address] Creatinine [Mass/Vol] 0.74 mg/dL Normal 0.70-1.20 [facility] Comment on above: Order Comment: Call MD with results STAT Performed By: #### L 501.080 #### [facility] [address] [place], [address] ECRCL 96.19 ml/min Normal 50-250 [facility] Comment on above: Order Comment: Call MD with results STAT Performed By: #### L 501.080 #### [facility] [address] [place], [address] GAP 21 High 5-15 [facility] Comment on above: Order Comment: Call MD with results STAT Performed By: #### L 501.080 #### [facility] [address] [place], [address] GFR/1.73 sq M.predicted among non-blacks MDRD (S/P/Bld) [Vol rate/Area] 108 mL/min/{1.73_m2} Normal >60 [facility] Comment on above: Order Comment: Call MD with results STAT Result Comment: mL/m in/1.73m2 CKD-EPI Creatinine Equation (2020) Performed By: #### L 501.080 #### [facility] [address] [place], [address] Glucose [Mass/Vol] 179 mg/dL High 70-99 [facility] Comment on above: Order Comment: Call MD with results STAT Performed By: #### L 501.080 #### [facility] [address] [place], [address] Potassium [Moles/Vol] 4.2 mmol/L Normal 3.3-5.1 [facility] Comment on above: Order Comment: Call MD with results STAT Performed By: #### L [id number] #### [facility] [address] [place], [address] Sodium [Moles/Vol] 132 mmol/L Low 133-145 [facility] Comment on above: Order Comment: Call MD with results STAT Performed By: #### L 501.080 #### [facility] [address] [place], [address] Urea nitrogen [Mass/Vol] 9 mg/dL Normal 4-19 [facility] Comment on above: Order Comment: Call MD with results STAT Performed By: #### L 501.080 #### [facility] [address] [place], [address] BUN/CRE 13.1 RATIO Normal 10-20 [facility] Comment on above: Order Comment: CLEAN CATCH Performed By: #### L [id number] #### [facility] [address] [place], [address] Calcium [Mass/Vol] 8.3 mg/dL Normal 7.6-11.0 [facility] Comment on above: Order Comment: CLEAN CATCH Performed By: #### L 400.0001 #### [facility] [address] [place], [address] Chloride [Moles/Vol] 107 mmol/L Normal 98-108 [facility] Comment on above: Order Comment: CLEAN CATCH Performed By: #### L [id number] #### [facility] [address] [place], [address] CO2 [Moles/Vol] 10.4 mmol/L Low 21.0-32.0 [facility] Comment on above: Order Comment: CLEAN CATCH Performed By: #### L 400.0001 #### [facility] [address] [place], [address] Creatinine [Mass/Vol] 0.73 mg/dL Normal 0.70-1.20 [facility] Comment on above: Order Comment: CLEAN CATCH Performed By: #### L [id number] #### [facility] [address] [place], [address] ECRCL 96.38 ml/min Normal 50-250 [facility] Comment on above: Order Comment: CLEAN CATCH Performed By: #### L 400.0001 #### [facility] [address] [place], [address] GAP 16 High 5-15 [facility] Comment on above: Order Comment: CLEAN CATCH Performed By: #### L [id number] #### [facility] [address] [place], [address] GFR/1.73 sq M.predicted among non-blacks MDRD (S/P/Bld) [Vol rate/Area] 110 mL/min/{1.73_m2} Normal >60 [facility] Comment on above: Order Comment: CLEAN CATCH Result Comment: mL/m in/1.73m2 CKD-EPI Creatinine Equation (2020) Performed By: #### L [id number] #### [facility] [address] [place], [address] Glucose [Mass/Vol] 119 mg/dL High 70-99 [facility] Comment on above: Order Comment: CLEAN CATCH Performed By: #### L [id number] #### [facility] [address] [place], [address] Potassium [Moles/Vol] 3.7 mmol/L Normal 3.3-5.1 [facility] Comment on above: Order Comment: CLEAN CATCH Performed By: #### L [id number] #### [facility] [address] [place], [address] Sodium [Moles/Vol] 133 mmol/L Normal 133-145 [facility] Comment on above: Order Comment: CLEAN CATCH Performed By: #### L [id number] #### [facility] [address] [place], [address] Urea nitrogen [Mass/Vol] 10 mg/dL Normal 4-19 [facility] Comment on above: Order Comment: CLEAN CATCH Performed By: #### L [id number] #### [facility] [address] [place], [address] Bedside Glucoseon 09-27-2024 FINGERSTICK GLU 117 mg/dL High 74-106 [facility] Comment on above: Result Comment: KAZ GEMENT OF PATIENT CARE PER NURSING PROTOCOL Performed By: #### L [id number] #### [facility] [address] [place], [address] FINGERSTICK GLU 115 mg/dL High 74-106 [facility] Comment on above: Result Comment: KAZ GEMENT OF PATIENT CARE PER NURSING PROTOCOL Performed By: #### L 501.080 #### [facility] [address] [place], [address] FINGERSTICK GLU 140 mg/dL High 74-106 [facility] Comment on above: Result Comment: KAZ GEMENT OF PATIENT CARE PER NURSING PROTOCOL Performed By: #### L [id number] #### [facility] [address] [place], [address] FINGERSTICK GLU 111 mg/dL High -106 [facility] Comment on above: Result Comment: KAZ GEMENT OF PATIENT CARE PER NURSING PROTOCOL Performed By: #### L [id number] #### [facility] [address] [place], [address] FINGERSTICK GLU 171 mg/dL High -106 [facility] Comment on above: Result Comment: KAZ GEMENT OF PATIENT CARE PER NURSING PROTOCOL Performed By: #### L [id number] #### [facility] [address] [place], [address] FINGERSTICK GLU 207 mg/dL High 74-106 [facility] Comment on above: Result Comment: KAZ GEMENT OF PATIENT CARE PER NURSING PROTOCOL Performed By: #### L [id number] #### [facility] [address] [place], [address] FINGERSTICK GLU 229 mg/dL High 74-106 [facility] Comment on above: Result Comment: KAZ GEMENT OF PATIENT CARE PER NURSING PROTOCOL Performed By: #### L [id number] #### [facility] [address] [place], [address] FINGERSTICK GLU 216 mg/dL High 74-106 [facility] Comment on above: Result Comment: KAZ GEMENT OF PATIENT CARE PER NURSING PROTOCOL Performed By: #### L [id number] #### [facility] [address] [place], [address] FINGERSTICK GLU 172 mg/dL High [address] [place] [address] Comment on above: Result Comment: KAZ GEMENT OF PATIENT CARE PER NURSING PROTOCOL Performed By: #### L [id number] #### [facility] [address] [place], [address] FINGERSTICK GLU 190 mg/dL High [address] [place] [address] Comment on above: Result Comment: KAZ GEMENT OF PATIENT CARE PER NURSING PROTOCOL Performed By: #### L 501.080 #### [facility] [address] [place], [address] FINGERSTICK GLU 254 mg/dL High -[address] [place] [address] Comment on above: Result Comment: KAZ GEMENT OF PATIENT CARE PER NURSING PROTOCOL Performed By: #### L 501.080 #### [facility] [address] [place], [address] FINGERSTICK GLU 306 mg/dL High [address] [place] [address] Comment on above: Result Comment: KAZ GEMENT OF PATIENT CARE PER NURSING PROTOCOL Performed By: #### L 400.0001 #### [facility] [address] [place], [address] FINGERSTICK GLU 267 mg/dL High 74-[address] [place] [address] Comment on above: Result Comment: KAZ GEMENT OF PATIENT CARE PER NURSING PROTOCOL Performed By: #### L 501.080 #### [facility] [address] [place], [address] FINGERSTICK GLU 172 mg/dL High [address] [place] [address] Comment on above: Result Comment: KAZ GEMENT OF PATIENT CARE PER NURSING PROTOCOL Performed By: #### L 100.0100 #### [facility] [address] [place], [address] FINGERSTICK GLU 79 mg/dL Normal 74-106 [facility] Comment on above: Result Comment: KAZ GEMENT OF PATIENT CARE PER NURSING PROTOCOL Performed By: #### L 501.080 #### [facility] [address] [place], [address] FINGERSTICK GLU 81 mg/dL Normal 74-106 [facility] Comment on above: Result Comment: KAZ GEMENT OF PATIENT CARE PER NURSING PROTOCOL Performed By: #### L 501.080 #### [facility] [address] [place], [address] FINGERSTICK GLU 118 mg/dL High 74-106 [facility] Comment on above: Result Comment: KAZ GEMENT OF PATIENT CARE PER NURSING PROTOCOL Performed By: #### L 400.0001 #### [facility] [address] [place], [address] FINGERSTICK GLU 157 mg/dL High 74-106 [facility] Comment on above: Result Comment: KAZ GEMENT OF PATIENT CARE PER NURSING PROTOCOL Performed By: #### L 100.0100 #### [facility] [address] [place], [address] FINGERSTICK GLU 166 mg/dL High 74-106 [facility] Comment on above: Result Comment: KAZ GEMENT OF PATIENT CARE PER NURSING PROTOCOL Performed By: #### L 501.080 #### [facility] [address] [place], [address] FINGERSTICK GLU 177 mg/dL High 74-106 [facility] Comment on above: Result Comment: KAZ GEMENT OF PATIENT CARE PER NURSING PROTOCOL Performed By: #### L 501.080 #### [facility] [address] [place], [address] CBC W/Diff, Automatedon 09-07 Platelets (Bld) [#/Vol] 324 10*3/uL Normal 150-450 [facility] Comment on above: Order Comment: EMMETT W. PREVIOUS SPECIMEN REJECTED DUE TOCLOTTED. 09/27/24526 Karthik R Nugent. Performed By: #### L 100.0100 #### [facility] [address] [place], [address] Absolute Neut Normal 2.0-7.7 [facility] Comment on above: Result Comment: This specimen has been REJECTED due to Laboratory criteria: Clotted. CARSON has been notified of need of recollection. 09/27/24523 Karthik R Nugent Performed By: #### L 100.0100 #### [facility] [address] [place], [address] HCT Normal 37-47 [facility] Comment on above: Result Comment: This specimen has been REJECTED due to Laboratory criteria: Clotted. CARSON has been notified of need of recollection. 09/27/24523 Karthik R Nugent Performed By: #### L 100.0100 #### [facility] [address] [place], [address] HGB Normal 12.0-15.0 [facility] Comment on above: Result Comment: This specimen has been REJECTED due to Laboratory criteria: Clotted. CARSON has been notified of need of recollection. 09/27/24523 Karthik R Nugent Performed By: #### L 100.0100 #### [facility] [address] [place], [address] MCH Normal 27.0-32.0 [facility] Comment on above: Result Comment: This specimen has been REJECTED due to Laboratory criteria: Clotted. CARSON has been notified of need of recollection. 09/27/24523 Karthik R Nugent Performed By: #### L 100.0100 #### [facility] [address] [place], [address] MCHC Normal 32-36 [facility] Comment on above: Result Comment: This specimen has been REJECTED due to Laboratory criteria: Clotted. CARSON has been notified of need of recollection. 09/27/24523 Karthik R Nugent Performed By: #### L 100.0100 #### [facility] [address] [place], [address] MCV Normal 81-99 [facility] Comment on above: Result Comment: This specimen has been REJECTED due to Laboratory criteria: Clotted. CARSON has been notified of need of recollection. 09/27/24523 Karthik R Nugent Performed By: #### L 100.0100 #### [facility] [address] [place], [address] NEUT% Normal 47-70 [facility] Comment on above: Result Comment: This specimen has been REJECTED due to Laboratory criteria: Clotted. CARSON has been notified of need of recollection. 09/27/24523 Karthik R Nugent Performed By: #### L 100.0100 #### [facility] [address] [place], [address] PLT Normal 150-450 [facility] Comment on above: Result Comment: This specimen has been REJECTED due to Laboratory criteria: Clotted. CARSON has been notified of need of recollection. 09/27/24523 Karthik R Nugent Performed By: #### L 100.0100 #### [facility] [address] [place], [address] RBC Normal 4.2-5.4 [facility] Comment on above: Result Comment: This specimen has been REJECTED due to Laboratory criteria: Clotted. CARSON has been notified of need of recollection. 09/27/24523 Karthik R Nugent Performed By: #### L 100.0100 #### [facility] [address] [place], [address] RDW CV Normal 11.6-14.6 [facility] Comment on above: Result Comment: This specimen has been REJECTED due to Laboratory criteria: Clotted. CARSON has been notified of need of recollection. 09/27/24523 Karthik R Nugent Performed By: #### L 100.0100 #### [facility] [address] [place], [address] RDW SD Normal 35.1-43.9 [facility] Comment on above: Result Comment: This specimen has been REJECTED due to Laboratory criteria: Clotted. CARSON has been notified of need of recollection. 09/27/24523 Karthik R Nugent Performed By: #### L 100.0100 #### [facility] [address] [place], [address] WBC Normal 4.4-11.0 [facility] Comment on above: Result Comment: This specimen has been REJECTED due to Laboratory criteria: Clotted. CARSON has been notified of need of recollection. 09/27/24523 Karthik R Nugent Performed By: #### L 100.0100 #### [facility] [address] [place], [address] 12 Lead EKGon 09-26-2024 12 Lead EKG [facility] [address] [place] [address] 12 Lead EKG 09/26/24 0952 MR#: [id number] Acct: [id number] Name: BRETT BOBBY Rep #: [id number] : 1990 33 From: Bob Henriquez MD [...] leads Confirmed by CAMERON JENNINGS, BOB ([id number]), newspaper or periodical editor SABRINA MCCLELLAN ([id number]) on 09/29/2024 9:48:24 AM Referred By: Confirmed By: BOB HENRIQUEZ MD 09/29/2448 Date Bob Henriquez MD CC: Dr. Aba Murguia MD; Dr. Meena Flowers DO; Dr. Bryce Julien MD Signed Normal [facility] Absolute neutrophil countOrd ered By: Aba Murguia on 09-26-2024 Neutrophils (Bld) [#/Vol] 10.0 10*3/uL High 2.0-7.7 [facility] Anion gap in Serum or Plasma Ordered By: Aba Murguia on 09-26-2024 Anion gap [Moles/Vol] 35 mmol/L High 5-15 [facility] BUN/creatinine ratioOrdered By: Aba Murguia on 09-26-2024 Urea nitrogen/Creatinine [Mass ratio] 12.0 mg/mg 10-20 [facility] Base excess Calc (BldV) [Mol es/Vol]Ordered By: Aba Murguia on 09-26-2024 Venous Blood Base Excess -25 mmol/L Low -1.0-3.5 [facility] Basic Metabolic Profile (BMP )on 09-26-2024 CO2 [Moles/Vol] 7.6 mmol/L Invalid Interpretation Code 21.0-32.0 [facility] Comment on above: Order Comment: Call MD [...] same. Performed By: #### L 501.080 #### [facility] [address] [place], [address] CO2 [Moles/Vol] 5.0 mmol/L Invalid Interpretation Code 21.0-32.0 [facility] Comment on above: Order Comment: Call with [...] same. Performed By: #### L 501.080 #### [facility] [address] [place], [address] BUN Normal 4-19 [facility] Comment on above: Order Comment: Call with results STAT Result Comment: This specimen has been REJECTED due to Laboratory criteria: Quanity Not Sufficient. MARTIN has been notified of need of recollection. 09/26/24 1440 Hanane Clapper Performed By: #### L 501.080 #### [facility] [address] [place], [address] BUN/CRE Normal 10-20 [facility] Comment on above: Order Comment: Call with results STAT Result Comment: This specimen has been REJECTED due to Laboratory criteria: Quanity Not Sufficient. MARTIN has been notified of need of recollection. 09/26/24 1440 Hanane Clapper Performed By: #### L 501.080 #### [facility] [address] [place], [address] Calcium Normal 7.6-11.0 [facility] Comment on above: Order Comment: Call MD with results STAT Result Comment: This specimen has been REJECTED due to Laboratory criteria: Quanity Not Sufficient. MARTIN has been notified of need of recollection. 09/26/24 1440 Hanane Clapper Performed By: #### L 501.080 #### [facility] [address] [place], [address] CL Normal 98-108 [facility] Comment on above: Order Comment: Call MD with results STAT Result Comment: This specimen has been REJECTED due to Laboratory criteria: Quanity Not Sufficient. MARTIN has been notified of need of recollection. 09/26/24 1440 Hanane Clapper Performed By: #### L 501.080 #### [facility] [address] [place], [address] CO2 Normal 21.0-32.0 [facility] Comment on above: Order Comment: Call MD with results STAT Result Comment: This specimen has been REJECTED due to Laboratory criteria: Quanity Not Sufficient. MARTIN has been notified of need of recollection. 09/26/24 1440 Hanane Clapper Performed By: #### L 501.080 #### [facility] [address] [place], [address] CREAT,SERUM Normal 0.70-1.20 [facility] Comment on above: Order Comment: Call with results STAT Result Comment: This specimen has been REJECTED due to Laboratory criteria: Quanity Not Sufficient. MARTIN has been notified of need of recollection. 09/26/24 1440 Hanane Clapper Performed By: #### L 501.080 #### [facility] [address] [place], [address] eGFR Normal >60 [facility] Comment on above: Order Comment: Call with results STAT Result Comment: This specimen has been REJECTED due to Laboratory criteria: Quanity Not Sufficient. MARTIN has been notified of need of recollection. 09/26/24 1440 Hanane Clapper Performed By: #### L 501.080 #### [facility] [address] [place], [address] GAP Normal 5-15 [facility] Comment on above: Order Comment: Call MD with results STAT Result Comment: This specimen has been REJECTED due to Laboratory criteria: Quanity Not Sufficient. MARTIN has been notified of need of recollection. 09/26/24 1440 Hanane Clapper Performed By: #### L 501.080 #### [facility] [address] [place], [address] GLU Normal 70-99 [facility] Comment on above: Order Comment: Call MD with results STAT Result Comment: This specimen has been REJECTED due to Laboratory criteria: Quanity Not Sufficient. MARTIN has been notified of need of recollection. 09/26/24 1440 Hanane Clapper Performed By: #### L 501.080 #### [facility] [address] [place], [address] Potassium Normal 3.3-5.1 [facility] Comment on above: Order Comment: Call MD with results STAT Result Comment: This specimen has been REJECTED due to Laboratory criteria: Quanity Not Sufficient. MARTIN has been notified of need of recollection. 09/26/24 1440 Hanane Clapper Performed By: #### L 501.080 #### [facility] [address] [place], [address] Basic Metabolic Profile (BMP) Normal 133-145 [facility] Comment on above: Order Comment: Call MD with results STAT Result Comment: This specimen has been REJECTED due to Laboratory criteria: Quanity Not Sufficient. MARTIN has been notified of need of recollection. 09/26/24 1440 Hanane Clapper Performed By: #### L 501.080 #### [facility] [address] [place], [address] BUN/CRE 12.0 RATIO Normal 10-20 [facility] Comment on above: Performed By: #### L 501.080 #### [facility] [address] [place], [address] Calcium [Mass/Vol] 9.3 mg/dL Normal 7.6-11.0 [facility] Comment on above: Performed By: #### L 501.080 #### [facility] [address] [place], [address] Chloride [Moles/Vol] 94 mmol/L Low 98-108 [facility] Comment on above: Performed By: #### L 501.080 #### [facility] [address] [place], [address] CO2 [Moles/Vol] 5.7 mmol/L Invalid Interpretation Code 21.0-32.0 [facility] Comment on above: Result Comment: Crit ical Result(s) Called at 1056 TO: AVANI by: KCLAPPER??Results read back by same. Performed By: #### L 501.080 #### [facility] [address] [place], [address] Creatinine [Mass/Vol] 0.84 mg/dL Normal 0.70-1.20 [facility] Comment on above: Performed By: #### L 501.080 #### [facility] [address] [place], [address] ECRCL 83.54 ml/min Normal 50-250 [facility] Comment on above: Performed By: #### L 501.080 #### [facility] [address] [place], [address] GAP 35 High 5-15 [facility] Comment on above: Performed By: #### L 501.080 #### [facility] [address] [place], [address] GFR/1.73 sq M.predicted among non-blacks MDRD (S/P/Bld) [Vol rate/Area] 93 mL/min/{1.73_m2} Normal >60 [facility] Comment on above: Result Comment: mL/m in/1.73m2 CKD-EPI Creatinine Equation (2020) Performed By: #### L 501.080 #### [facility] [address] [place], [address] Glucose [Mass/Vol] 339 mg/dL High 70-99 [facility] Comment on above: Performed By: #### L 501.080 #### [facility] [address] [place], [address] Potassium [Moles/Vol] 4.7 mmol/L Normal 3.3-5.1 [facility] Comment on above: Performed By: #### L 501.080 #### [facility] [address] [place], [address] Sodium [Moles/Vol] 134 mmol/L Normal 133-145 [facility] Comment on above: Performed By: #### L 501.080 #### [facility] [address] [place], [address] Urea nitrogen [Mass/Vol] 10 mg/dL Normal 4-19 [facility] Comment on above: Performed By: #### L 501.080 #### [facility] [address] [place], [address] BUN Normal 4-19 [facility] Comment on above: Result Comment: DIMAS CRONIN SAID THEY DID NOT NEED FAR SHE KNOWS. Performed By: #### L 501.080 #### [facility] [address] [place], [address] BUN/CRE Normal 10-20 [facility] Comment on above: Result Comment: DIMAS CRONIN SAID THEY DID NOT NEED FAR SHE KNOWS. Performed By: #### L 501.080 #### [facility] [address] [place], [address] Calcium Normal 7.6-11.0 [facility] Comment on above: Result Comment: DIMAS CRONIN SAID THEY DID NOT NEED FAR SHE KNOWS. Performed By: #### L 501.080 #### [facility] [address] [place], [address] CL Normal 98-108 [facility] Comment on above: Result Comment: DIMAS CRONIN SAID THEY DID NOT NEED FAR SHE KNOWS. Performed By: #### L 501.080 #### [facility] [address] [place], [address] CO2 Normal 21.0-32.0 [facility] Comment on above: Result Comment: DIMAS CRONIN SAID THEY DID NOT NEED FAR SHE KNOWS. Performed By: #### L 501.080 #### [facility] [address] [place], [address] CREAT,SERUM Normal 0.70-1.20 [facility] Comment on above: Result Comment: DIMAS CRONIN SAID THEY DID NOT NEED FAR SHE KNOWS. Performed By: #### L 501.080 #### [facility] [address] [place], [address] eGFR Normal >60 [facility] Comment on above: Result Comment: DIMAS CRONIN SAID THEY DID NOT NEED FAR SHE KNOWS. Performed By: #### L 501.080 #### [facility] [address] [place], [address] GAP Normal 5-15 [facility] Comment on above: Result Comment: DIMAS CRONIN SAID THEY DID NOT NEED FAR SHE KNOWS. Performed By: #### L 501.080 #### [facility] [address] [place], [address] GLU Normal 70-99 [facility] Comment on above: Result Comment: DIMAS CRONIN SAID THEY DID NOT NEED FAR SHE KNOWS. Performed By: #### L 501.080 #### [facility] [address] [place], [address] Potassium Normal 3.3-5.1 [facility] Comment on above: Result Comment: DIMAS CRONIN SAID THEY DID NOT NEED FAR SHE KNOWS. Performed By: #### L 501.080 #### [facility] [address] [place], [address] Basic Metabolic Profile (BMP) Normal 133-145 [facility] Comment on above: Result Comment: DIMAS CRONIN SAID THEY DID NOT NEED FAR SHE KNOWS. Performed By: #### L 501.080 #### [facility] [address] [place], [address] BUN Normal 4-19 [facility] Comment on above: Order Comment: REDRA W. PREVIOUS SPECIMEN REJECTED DUE TOQNS. 09/26/241441 Result Comment: ORDE R NOT NEEDED. ORDERS ALREADY PLACED FOR TIMED DRAWS Performed By: #### L 100.0100 #### [facility] [address] [place], [address] BUN/CRE Normal 10-20 [facility] Comment on above: Order Comment: REDRA W. PREVIOUS SPECIMEN REJECTED DUE TOQNS. 09/26/24 144 Result Comment: ORDE R NOT NEEDED. ORDERS ALREADY PLACED FOR TIMED DRAWS Performed By: #### L 100.0100 #### [facility] [address] [place], [address] Calcium Normal 7.6-11.0 [facility] Comment on above: Order Comment: REDRA W. PREVIOUS SPECIMEN REJECTED DUE TOQNS. 09/26/241441 Result Comment: ORDE R NOT NEEDED. ORDERS ALREADY PLACED FOR TIMED DRAWS Performed By: #### L 100.0100 #### [facility] [address] [place], [address] CL Normal 98-108 [facility] Comment on above: Order Comment: REDRA W. PREVIOUS SPECIMEN REJECTED DUE TOQNS. 09/26/241441 Result Comment: ORDE R NOT NEEDED. ORDERS ALREADY PLACED FOR TIMED DRAWS Performed By: #### L 100.0100 #### [facility] [address] [place], [address] CO2 Normal 21.0-32.0 [facility] Comment on above: Order Comment: REDRA W. PREVIOUS SPECIMEN REJECTED DUE TOQNS. 09/26/241441 Result Comment: ORDE R NOT NEEDED. ORDERS ALREADY PLACED FOR TIMED DRAWS Performed By: #### L 100.0100 #### [facility] [address] [place], [address] CREAT,SERUM Normal 0.70-1.20 [facility] Comment on above: Order Comment: REDRA W. PREVIOUS SPECIMEN REJECTED DUE TOQNS. 09/26/241441 Result Comment: ORDE R NOT NEEDED. ORDERS ALREADY PLACED FOR TIMED DRAWS Performed By: #### L 100.0100 #### [facility] [address] [place], [address] eGFR Normal >60 [facility] Comment on above: Order Comment: REDRA W. PREVIOUS SPECIMEN REJECTED DUE TOQNS. 09/26/241441 Result Comment: ORDE R NOT NEEDED. ORDERS ALREADY PLACED FOR TIMED DRAWS Performed By: #### L 100.0100 #### [facility] [address] [place], [address] GAP Normal 5-15 [facility] Comment on above: Order Comment: REDRA W. PREVIOUS SPECIMEN REJECTED DUE TOQNS. 09/26/241441 Result Comment: ORDE R NOT NEEDED. ORDERS ALREADY PLACED FOR TIMED DRAWS Performed By: #### L 100.0100 #### [facility] [address] [place], [address] GLU Normal 70-99 [facility] Comment on above: Order Comment: REDRA W. PREVIOUS SPECIMEN REJECTED DUE TOQNS. 09/26/24 1442 Result Comment: ORDE R NOT NEEDED. ORDERS ALREADY PLACED FOR TIMED DRAWS Performed By: #### L 100.0100 #### [facility] [address] [place], [address] Potassium Normal 3.3-5.1 [facility] Comment on above: Order Comment: REDRA W. PREVIOUS SPECIMEN REJECTED DUE TOQNS. 09/26/24 144 Result Comment: ORDE R NOT NEEDED. ORDERS ALREADY PLACED FOR TIMED DRAWS Performed By: #### L 100.0100 #### [facility] [address] [place], [address] Basic Metabolic Profile (BMP) Normal 133-145 [facility] Comment on above: Order Comment: REDRA W. PREVIOUS SPECIMEN REJECTED DUE TOQNS. 09/26/24 1442 Result Comment: ORDE R NOT NEEDED. ORDERS ALREADY PLACED FOR TIMED DRAWS Performed By: #### L 100.0100 #### [facility] [address] [place], [address] Basophil percentageOrdered B y: Aba Caione on 09-26-2024 Basophils/100 WBC (Bld) 0.9 % 0-1 [facility] Bedside Glucoseon 09-26-2024 FINGERSTICK GLU 201 mg/dL High 74-106 [facility] Comment on above: Result Comment: KAZ GEMENT OF PATIENT CARE PER NURSING PROTOCOL Performed By: #### L 501.080 #### [facility] [address] [place], [address] FINGERSTICK GLU 227 mg/dL High 74-106 [facility] Comment on above: Result Comment: KAZ GEMENT OF PATIENT CARE PER NURSING PROTOCOL Performed By: #### L 100.0100 #### [facility] [address] [place], [address] FINGERSTICK GLU 235 mg/dL High 74-106 [facility] Comment on above: Result Comment: KAZ GEMENT OF PATIENT CARE PER NURSING PROTOCOL Performed By: #### L 501.080 #### [facility] [address] [place], [address] FINGERSTICK GLU 223 mg/dL High 74-106 [facility] Comment on above: Result Comment: KAZ GEMENT OF PATIENT CARE PER NURSING PROTOCOL Performed By: #### L 100.0100 #### [facility] [address] [place], [address] FINGERSTICK GLU 257 mg/dL High 74-106 [facility] Comment on above: Result Comment: KAZ GEMENT OF PATIENT CARE PER NURSING PROTOCOL Performed By: #### L 100.0100 #### [facility] [address] [place], [address] FINGERSTICK GLU 240 mg/dL High 74-106 [facility] Comment on above: Result Comment: KAZ GEMENT OF PATIENT CARE PER NURSING PROTOCOL Performed By: #### L 400.0001 #### [facility] [address] [place], [address] FINGERSTICK GLU 251 mg/dL High 74-106 [facility] Comment on above: Result Comment: Dr Lima aguilera Followed MANAGEMENT OF PATIENT CARE PER NURSING PROTOCOL Performed By: #### L 501.080 #### [facility] [address] [place], [address] FINGERSTICK GLU 246 mg/dL High 74-106 [facility] Comment on above: Result Comment: KAZ GEMENT OF PATIENT CARE PER NURSING PROTOCOL Performed By: #### L 501.080 #### [facility] [address] [place], [address] FINGERSTICK GLU 232 mg/dL High 74-106 [place] [facility] Comment on above: Result Comment: KAZ GEMENT OF PATIENT CARE PER NURSING PROTOCOL Performed By: #### L 501.080 #### [facility] [address] [place], [address] FINGERSTICK GLU 267 mg/dL High [address] [place] [address] Comment on above: Result Comment: KAZ GEMENT OF PATIENT CARE PER NURSING PROTOCOL Performed By: #### L 501.080 #### [facility] [address] [place], [address] FINGERSTICK GLU 361 mg/dL High [address] [place] [address] Comment on above: Result Comment: KAZ GEMENT OF PATIENT CARE PER NURSING PROTOCOL Performed By: #### L 501.080 #### [facility] [address] [place], [address] FINGERSTICK GLU 420 mg/dL High [address] [place] [address] Comment on above: Result Comment: KAZ GEMENT OF PATIENT CARE PER NURSING PROTOCOL Performed By: #### L 501.080 #### [facility] [address] [place], [address] FINGERSTICK GLU 341 mg/dL [address] Comment on above: Result Comment: KAZ GEMENT OF PATIENT CARE PER NURSING PROTOCOL Performed By: #### L 501.080 #### [facility] [address] [place], [address] Bilirubin Test strip Ql (U)O rdered By: Aba Murguia on 09-26-2024 Bilirubin Ql (U) Negative Negative [facility] CBC W/Diff, Automatedon -2 PLT EST SLT INC Normal ADEQ [facility] Comment on above: Performed By: #### L 501.080 #### [facility] [address] [place], [address] CO2 (BldV) [Moles/Vol]Ordere d By: Aba Murguia on 09-26-2024 CO2 [Moles/Vol] 6 mmol/L Low 23-33 [facility] CO2 (BldV) [Partial pressure ]Ordered By: Aba Murguia on 09-26-2024 Bed Mix Venous Bld PCO2 at Pat Temp 19.2 mmHg Low 41-51 [facility] Carbon dioxide, total [Moles /volume] in Central venous bloodOrdered By: Aba Murguia on 09-26-2024 CO2 [Moles/Vol] 5.7 mmol/L Low 21.0-32.0 [facility] Comment on above: Critical Result(s) C alled at 1056 TO: AHAGGCLARALior by: KCLAPPER Results read back by same. Chest 1 View (Portable)on Chest 1 View (Portable) [facility] Imaging Services [address] [place] [address] Chest 1 View (Portable) MR#: [id number] Acct: [id number] Name: BRETT BOBBY Rep #: [id number] : 1990 F 33 From: Michael Honeycutt MD PCP: Dr. Meena Flowers DO Status: REG ER Study: Chest 1 View (Portable) Date of Exam: 09/26/24 Exam# [id number] Ordering Dr: Aba Murguia MD PROCEDURE: CHEST [...] No visible acute cardiopulmonary findings Reading Location: [facility] CC: Dr. Aba Murguia MD; Dr. Meena Flowers DO Wheel Presser: Signed Normal [facility] Chloride assayOrdered By: Sabas Murguia on 09-26-2024 Chloride [Moles/Vol] 94 mmol/L Low 98-108 [facility] Consultation - Intensiviston 09-26-2024 Consultation - Perinatology Physician [facility] Medical Records Department [address] [place] [address] Consultation - Perinatology Physician 09/26/24 1602 MR#: [id number] Acct: [id number] Name: BRETT BOBBY Rep #: [id number] : 1990 33 From: Dino Hernandez MD PCP: Dr. Meena Flowers, DO Status:ADM IN Location: ICU [id number] HPI Consult Data Date of Consult: 09/26/24 [...] mls/hr 09/26/24 12:38 Sodium Chloride CONT INF .[id number] JAC Protocol Dextrose/Sodium Chloride 1,000 mls @ [...] GI no (more content not included)... Normal [facility] Emergency Department Summary on 09-26-2024 Emergency Department Summary [facility] Medical Records Department [address] [place] [address] Emergency Department Summary 09/26/24 MR#: [id number] Acct: [id number] Name: BRETT BOBBY Rep #: [id number] : 1990 33 From: Aba Murguia MD PCP: Dr. Meena Flowers, DO Status:ADM IN Location: ICU [id number] HPI History of Present Illness Chief Complaint: [...] is back to normal and feels fine. [facility] Medical History Tobacco abuse Stage 3a chronic [...] injury. Init (more content not included)... Normal [facility] Eosinophil percentageOrdered By: Aba Murguia on 09-26-2024 Eosinophils/100 WBC (Bld) 12.0 % High 0-5 [facility] Epithelial cells.squamous LM Ql (Urine sed)Ordered By: Aba Murguia on 09-26-2024 Epithelial cells.squamous LM.HPF (Urine sed) [#/Area] 5 /[HPF] 5-10 [facility] Erythrocyte distribution wid th ratioOrdered By: Aba Murguia on 09-26-2024 Erythrocyte distribution width (RBC) [Ratio] 16.1 % High 11.6-14.6 [facility] Erythrocyte distribution wid th standard deviationOrdered By: Aba Murguia on 09-26-2024 Erythrocyte distribution width (RBC) [Entitic vol] 57.2 fL High 35.1-43.9 [facility] Estimation of creatinine patito aranceOrdered By: Aba Murguia on 09-26-2024 Estimated Creatinine Clearance Calc 83.54 ml/min 50-250 [facility] Fine Granular Casts LM.LPF ( Urine sed) [#/Area]Ordered By: Aba Murguia on 09-26-2024 Urine Fine Granular Casts 0-5 SEEN /lpf 0-5 [facility] GFR/1.73 sq M.predicted rey g non-blacks MDRD (S/P/Bld) [Vol rate/Area]Ordered By: Aba Murguia on 09-26-2024 Estimated GFR (MDRD) Non-Af Amer 93 >60 [facility] Comment on above: mL/min/1.73m2 CKD-EP I Creatinine Equation (2020) Glucose Ql (U)Ordered By: Sabas Murguia on 09-26-2024 Glucose (U) [Mass/Vol] 1000 mg/dL High Normal [facility] By: Aba Murguia on 09-26-2024 Bedside Glucose (Misc Panel) 341 mg/dL High 74-106 [facility] Comment on above: MANAGEMENT OF PATIEN T CARE PER NURSING PROTOCOL Hematocrit Auto (Bld) [Volum e fraction]Ordered By: Aba Murguia on 09-26-2024 Hematocrit (Bld) [Volume fraction] 45.9 % 37-47 [facility] Hemoglobin A1con 09-26-2024 HbA1c (Bld) [Mass fraction] 10.2 % Normal <=5.6 [facility] Comment on above: Performed By: #### L 501.9985 #### [facility] [address] [place], [place] [address]all [address]. [place], [place], [id number] Hemoglobin A1c percentageOrd ered By: Maggie Reed on 09-26-2024 HbA1c (Bld) [Mass fraction] 10.2 % >5.7 [facility] Hemoglobin measurementOrdere d By: Aba Murguia on 09-26-2024 Hemoglobin (Bld) [Mass/Vol] 14.2 g/dL 12.0-15.0 [facility] Immature granulocytes/100 WB C Auto (Bld)Ordered By: Aba Murguia on 09-26-2024 Immature granulocytes/100 WBC (Bld) 0.500 % 0.0-0.9 [facility] Comment on above: IG% - Immature Granu locytes (promyelocytes, myelocytes and metamyelocytes) > 1% indicates that a LEFT SHIFT is Present. Ketones Test strip Ql (U)Ord ered By: Aba Murguia on 09-26-2024 Ketones Ql (U) 150 mg/dl Abnormal Negative [facility] Comment on above: CRITICAL VALUE *HCRI TICAL VALUE CALLED TO CRISTIAN VILLALPANDO (ER)09/26/24 1029 Harjit Whitley.RESULTS READ BACK BY SAME. [id number] 09-26-2024 BETA-HYDROXYBUT 9.5 mmol/L Normal 0.0-0.3 [facility] Comment on above: Performed By: #### L 501.080 #### [facility] [address] [place], [address] Lymphocytes Auto (Unsp spec) [#/Vol]Ordered By: Aba Murguia on 09-26-2024 Lymphocytes (Bld) [#/Vol] 1.92 10*3/uL 0.83-4.51 [facility] Lymphocytes/100 WBC Auto (Un sp spec)Ordered By: Aba Murguia on 09-26-2024 Lymphocytes/100 WBC (Bld) 13.3 % Low 19-41 [facility] MCV (mean corpuscular volume ) determinationOrdered By: Aba Murguia on 09-26-2024 MCV (RBC) [Entitic vol] 95.4 fL 81-99 [facility] Mean corpuscular hemoglobin (MCH) determinationOrdered By: Aba Murguia on 09-26-2024 MCH (RBC) [Entitic mass] 29.5 pg 27.0-32.0 [facility] Mean corpuscular hemoglobin concentration (MCHC) determinationOrdered By: Aba Murguia on 09-26-2024 MCHC (RBC) [Mass/Vol] 30.9 g/dL Low 32-36 [facility] Mean platelet volume determi nationOrdered By: Aba Murguia on 09-26-2024 Platelet mean volume (Bld) [Entitic vol] 9.5 fL 6.2-12.0 [facility] Microscopic analysis of urin e for red blood cells (RBC)Ordered By: Aba Murguia on 09-26-2024 Urine RBC 0-5 SEEN /hpf 0-5 [facility] Monocyte percentageOrdered B y: Aba Murguia on 09-26-2024 Monocytes/100 WBC (Bld) 4.4 % 0-10 [facility] Mucus LM Ql (Urine sed)Order ed By: Aba Murguia on 09-26-2024 Mucus Ql (Urine sed) 0 SEEN /hpf [facility] Neutrophil percentageOrdered By: Aba Murguia on 09-26-2024 Neutrophils/100 WBC (Bld) 68.9 % 47-70 [facility] Nitrite Test strip Ql (U)Ord ered By: Aba Murguia on 09-26-2024 Nitrite Ql (U) Negative Negative [facility] No Panel InformationOrdered By: Aba Murguia on 09-26-2024 Bld Gas Crit Called To/Read Back By Yes [facility] Blood Gas Notified Time 09:59:55 [facility] Blood Gas Notified Whom everardo [facility] Blood Gas Sample Site Not entered [facility] Blood Gas Specimen Type BETHANY [facility] Oxygen Delivery Device Room Air [facility] Beta-Hydroxybutyric Acid mmol/L 9.5 mmol/L 0.0-0.3 [facility] Nucleated red blood cell per centageOrdered By: Aba Murguia on 09-26-2024 Nucleated RBC/100 WBC (Bld) [Ratio] 0 % 0-5 [facility] Oxygen (BldV) [Partial press ure]Ordered By: Aba Murguia on 09-26-2024 Venous Blood Partial Pressure O2 157 mmHg High 25-40 [facility] Platelet countOrdered By: Sabas Murguia on 09-26-2024 Platelets (Bld) [#/Vol] 464 10*3/uL High 150-450 [facility] Platelets LM Ql (Bld)Ordered By: Aba Murguia on 09-26-2024 Platelet Estimate SLT INC ADEQ [facility] Potassium (Unsp spec) [Mass/ Vol]Ordered By: Aba Murguia on 09-26-2024 Potassium [Moles/Vol] 4.7 mmol/L 3.3-5.1 [facility] Protein Test strip Ql (U)Ord ered By: Aba Murguia on 09-26-2024 Protein Ql (U) 100 mg/dl High Negative [facility] RBC Auto (Bld) [#/Vol]Ordere d By: Aba Murguia on 09-26-2024 RBC (Bld) [#/Vol] 4.81 10*6/uL 4.2-5.4 [facility] Serum creatinine measurement (mass/volume)Ordered By: Aba Murguia on 09-26-2024 Creatinine [Mass/Vol] 0.84 mg/dL 0.70-1.20 [facility] Serum glucose measurement (m ass/volume)Ordered By: Aba Murguia on 09-26-2024 Glucose [Mass/Vol] 339 mg/dL High 70-99 [facility] Serum or plasma calcium xin urement (mass/volume)Ordered By: Aba Murguia on 09-26-2024 Calcium [Mass/Vol] 9.3 mg/dL 7.6-11.0 [facility] Serum or plasma urea nitroge n measurement (mass/volume)Ordered By: Aba Murguia on 09-26-2024 Urea nitrogen [Mass/Vol] 10 mg/dL 4-19 [facility] Sodium levelOrdered By: Andrzej Murguia on 09-26-2024 Sodium [Moles/Vol] 134 mmol/L 133-145 [facility] Urinalysis, Completeon 09-26 BACTERIA 1+ /hpf Normal None Seen [facility] Comment on above: Order Comment: CLEAN CATCH Performed By: #### L 400.0001 #### [facility] [address] [place], [address] CAST,FINE GRAN 0-5 SEEN Normal 0-5 [facility] Comment on above: Order Comment: CLEAN CATCH Performed By: #### L 400.0001 #### [facility] [address] [place], [address] RBC 0-5 SEEN Normal 0-5 [facility] Comment on above: Order Comment: CLEAN CATCH Performed By: #### L 400.0001 #### [facility] [address] [place], [address] EPI,SQUAMOUS 5-10 SEEN Normal 5-10 [facility] Comment on above: Order Comment: CLEAN CATCH Performed By: #### L 400.0001 #### [facility] [address] [place], [address] Mucus Ql (Urine sed) 0 SEEN Normal [facility] Comment on above: Order Comment: CLEAN CATCH Performed By: #### L [id number] #### [facility] [address] [place], [address] WBC 0 SEEN Normal 0-5 [facility] Comment on above: Order Comment: CLEAN CATCH Performed By: #### L 400.0001 #### [facility] [address] [place], [address] Urine blood detectionOrdered By: Aba Murguia on 09-26-2024 Urine Occult Blood 150 /ul High Negative [facility] Urine clarityOrdered By: Selin Murguia on 09-26-2024 Clarity (U) Clear Clear [facility] Urine color determinationOrd ered By: Aba Murguia on 09-26-2024 Color (U) Yellow Yellow [facility] Urine leukocyte esterase det ection by dipstickOrdered By: Aba Murguia on 09-26-2024 Leukocyte esterase Test strip Ql (U) Negative Negative [facility] Urine pHOrdered By: Aba Murguia on 09-26-2024 pH (U) 5.0 [pH] 5.0 - 8.0 [facility] Urine sediment bacteria coun t by microscopy (number/high power field)Ordered By: Aba Murguia on 09-26-2024 Bacteria LM.HPF (Urine sed) [#/Area] 1 /[HPF] None Seen [facility] Urine specific gravity measu rementOrdered By: Aba Everardo on 09-26-2024 Specific gravity (U) [Rel density] 1.030 1.002-1.030 [facility] Urobilinogen Ql (U)Ordered B y: Aba Everardo on 09-26-2024 Urine Urobilinogen Normal mg/dl Normal [facility] Venous Blood Gason Blood Gas Type BETHANY Normal [facility] Comment on above: Performed By: #### L 501.080 #### [facility] [address] [place], [address] CO2 [Moles/Vol] 6 mmol/L Low 23-33 [facility] Comment on above: Performed By: #### L 501.080 #### [facility] [address] [place], [address] HCO3 (Bld) [Moles/Vol] 5 mmol/L Low 22-26 [facility] Comment on above: Performed By: #### L 501.080 #### [facility] [address] [place], [address] O2 Delivery Dev Room Air [facility] Comment on above: Performed By: #### L 501.080 #### [facility] [address] [place], [address] Read Back By Yes [facility] Comment on above: Performed By: #### L 501.080 #### [facility] [address] [place], [address] Results To [facility] Comment on above: Performed By: #### L 501.080 #### [facility] [address] [place], [address] SITE Not entered Normal [facility] Comment on above: Performed By: #### L 501.080 #### [facility] [address] [place], [id number] Time Given 09:59:55 Normal [facility] Comment on above: Performed By: #### L 501.080 #### [facility] [address] [place], [place], [id number] VBG BE -25 mmol/L Low -1.0-3.5 [facility] Comment on above: Performed By: #### L 501.080 #### [facility] [address] [place], [place], [id number] VBG pCO2 19.2 mmHg Low 41-51 [facility] Comment on above: Performed By: #### L 501.080 #### [facility] [address] [place], [address] VBG pH 7.06 Invalid Interpretation Code 7.32-7.42 [facility] Comment on above: Performed By: #### L 501.080 #### [facility] [address] [place], [address] VBG PO2 157 mmHg High 25-40 [facility] Comment on above: Performed By: #### L 501.080 #### [facility] [address] [place], [address] VBG SO2 99 High 50-70 [facility] Comment on above: Performed By: #### L 501.080 #### [facility] [address] [place], [place], [id number] Venous blood bicarbonate reji surementOrdered By: Aba Murguia on 09-26-2024 HCO3 (Bld) [Moles/Vol] 5 mmol/L Low 22-26 [facility] Venous blood oxygen saturati on measurementOrdered By: Aba Murguia on 09-26-2024 Oxygen saturation in Blood 99 % High 50-70 [facility] White blood cell (WBC) count Ordered By: Aba Murguia on 09-26-2024 WBC (Bld) [#/Vol] 14.5 10*3/uL High 4.4-11.0 [facility] White blood cell countOrdere d By: Aba Murguia on 09-26-2024 Urine WBC 0 SEEN /hpf 0-5 [facility] pH (BldV)Ordered By: Aba Murguia on 09-26-2024 Venous Blood pH 7.06 Low 7.32-7.42 [facility] CBC W/Diff, Automatedon 03-11 PATH REV Reviewed Normal [facility] Comment on above: Result Comment: Neut rophilic leukocytosis. Clinical correlation necessary. Rob Petit M.D. 04/07/24 AMENDED REPORT 04/07/24 1257 PATH REV previously reported as: November mey Performed By: #### L 500.2500 #### [facility] [address] [place], [address] Basic Metabolic Profile (BMP )on 04-05-2024 BUN Normal 7-18 [facility] Comment on above: Order Comment: Call MD with results STAT Result Comment: Dimas elled via OM: Ordered Performed By: #### L 501.080 #### [facility] [address] [place], [address] BUN/CRE Normal 10-20 [facility] Comment on above: Order Comment: Call MD with results STAT Result Comment: Caneric elled via OM: MD Ordered Performed By: #### L 501.080 #### [facility] [address] [place], [address] CA,Total Normal 8.5-10.1 [facility] Comment on above: Order Comment: Call MD with results STAT Result Comment: Dimas elled via OM: Ordered Performed By: #### L 501.080 #### [facility] [address] [place], [address] CL Normal 98-107 [facility] Comment on above: Order Comment: Call MD with results STAT Result Comment: Canc elled via OM: MD Ordered Performed By: #### L 501.080 #### [facility] [address] [place], [address] CO2 Normal 21.0-32.0 [facility] Comment on above: Order Comment: Call MD with results STAT Result Comment: Canc elled via OM: MD Ordered Performed By: #### L 501.080 #### [facility] [address] [place], [address] CREAT,SERUM Normal 0.55-1.02 [facility] Comment on above: Order Comment: Call MD with results STAT Result Comment: Canc elled via OM: MD Ordered Performed By: #### L 501.080 #### [facility] [address] [place], [address] EST GFR Normal >60 [facility] Comment on above: Order Comment: Call MD with results STAT Result Comment: Canc elled via OM: MD Ordered Performed By: #### L 501.080 #### [facility] [address] [place], [address] EST GFR - AA Normal >60 [facility] Comment on above: Order Comment: Call MD with results STAT Result Comment: Canc elled via OM: MD Ordered Performed By: #### L 501.080 #### [facility] [address] [place], [address] GAP Normal 5-15 [facility] Comment on above: Order Comment: Call MD with results STAT Result Comment: Canc elled via OM: MD Ordered Performed By: #### L 501.080 #### [facility] [address] [place], [address] GLU Normal 74-106 [facility] Comment on above: Order Comment: Call MD with results STAT Result Comment: Canc elled via OM: MD Ordered Performed By: #### L 501.080 #### [facility] [address] [place], [address] Potassium Normal 3.5-5.1 [facility] Comment on above: Order Comment: Call MD with results STAT Result Comment: Canc elled via OM: MD Ordered Performed By: #### L 501.080 #### [facility] [address] [place], [address] Basic Metabolic Profile (BMP) Normal 136-145 [facility] Comment on above: Order Comment: Call MD with results STAT Result Comment: Canc elled via OM: MD Ordered Performed By: #### L 501.080 #### [facility] [address] [place], [address] BUN/CRE 10.1 RATIO Normal 10-20 [facility] Comment on above: Performed By: #### L 501.080 #### [facility] [address] [place], [address] CA,Total 8.5 mg/dL Normal 8.5-10.1 [facility] Comment on above: Performed By: #### L 501.080 #### [facility] [address] [place], [address] Chloride [Moles/Vol] 106 mmol/L Normal 98-107 [facility] Comment on above: Performed By: #### L 501.080 #### [facility] [address] [place], [address] CO2 [Moles/Vol] 14.0 mmol/L Low 21.0-32.0 [facility] Comment on above: Performed By: #### L 501.080 #### [facility] [address] [place], [address] Creatinine [Mass/Vol] 0.69 mg/dL Normal 0.55-1.02 [facility] Comment on above: Result Comment: The validity of the calculated GFR GFRAA in patients over 70 years has not been determined. Clinical correlation is essential. Performed By: #### L 501.080 #### [facility] [address] [place], [address] ECRCL 100.26 ml/min Normal [facility] Comment on above: Performed By: #### L 501.080 #### [facility] [address] [place], [address] EST GFR - AA 125 mL/min Normal >60 [facility] Comment on above: Result Comment: Afri can Venezuelan GFR Calc Performed By: #### L 501.080 #### [facility] [address] [place], [address] GAP 12 Normal 5-15 [facility] Comment on above: Performed By: #### L 501.080 #### [facility] [address] [place], [address] GFR/1.73 sq M.predicted among non-blacks MDRD (S/P/Bld) [Vol rate/Area] 103 mL/min/{1.73_m2} Normal >60 [facility] Comment on above: Result Comment: Non- GFR Calc Performed By: #### L 501.080 #### [facility] [address] [place], [address] Glucose [Mass/Vol] 341 mg/dL High 74-106 [facility] Comment on above: Result Comment: Gluc ose result greater than or equal to 200 mg/dL suggests DIABETES MELLITUS per A.D.A. criteria. Performed By: #### L 501.080 #### [facility] [address] [place], [address] Potassium [Moles/Vol] 4.8 mmol/L Normal 3.5-5.1 [facility] Comment on above: Performed By: #### L 501.080 #### [facility] [address] [place], [address] Sodium [Moles/Vol] 132 mmol/L Low 136-145 [facility] Comment on above: Performed By: #### L 501.080 #### [facility] [address] [place], [address] Urea nitrogen [Mass/Vol] 7 mg/dL Normal 7-18 [facility] Comment on above: Performed By: #### L 501.080 #### [facility] [address] [place], [address] BUN Normal 7-18 [facility] Comment on above: Order Comment: Call MD with results STAT Result Comment: Dimas chavezed via OM: MD Ordered Performed By: #### L 501.080 #### [facility] [address] [place], [address] BUN/CRE Normal 10-20 [facility] Comment on above: Order Comment: Call MD with results STAT Result Comment: Dimas roblero via OM: MD Ordered Performed By: #### L 501.080 #### [facility] [address] [place], [address] CA,Total Normal 8.5-10.1 [facility] Comment on above: Order Comment: Call with results STAT Result Comment: Dimas roblero via OM: MD Ordered Performed By: #### L 501.080 #### [facility] [address] [place], [address] CL Normal 98-107 [facility] Comment on above: Order Comment: Call with results STAT Result Comment: Dimas roblero via OM: Ordered Performed By: #### L 501.080 #### [facility] [address] [place], [address] CO2 Normal 21.0-32.0 [facility] Comment on above: Order Comment: Call MD with results STAT Result Comment: Canc elled via OM: MD Ordered Performed By: #### L 501.080 #### [facility] [address] [place], [address] CREAT,SERUM Normal 0.55-1.02 [facility] Comment on above: Order Comment: Call MD with results STAT Result Comment: Canc elled via OM: MD Ordered Performed By: #### L 501.080 #### [facility] [address] [place], [address] EST GFR Normal >60 [facility] Comment on above: Order Comment: Call MD with results STAT Result Comment: Canc elled via OM: MD Ordered Performed By: #### L 501.080 #### [facility] [address] [place], [address] EST GFR - AA Normal >60 [facility] Comment on above: Order Comment: Call MD with results STAT Result Comment: Canc elled via OM: MD Ordered Performed By: #### L 501.080 #### [facility] [address] [place], [address] GAP Normal 5-15 [facility] Comment on above: Order Comment: Call MD with results STAT Result Comment: Canc elled via OM: MD Ordered Performed By: #### L 501.080 #### [facility] [address] [place], [address] GLU Normal 74-106 [facility] Comment on above: Order Comment: Call MD with results STAT Result Comment: Canc elled via OM: MD Ordered Performed By: #### L 501.080 #### [facility] [address] [place], [address] Potassium Normal 3.5-5.1 [facility] Comment on above: Order Comment: Call MD with results STAT Result Comment: Canc elled via OM: MD Ordered Performed By: #### L 501.080 #### [facility] [address] [place], [address] Basic Metabolic Profile (BMP) Normal 136-145 [facility] Comment on above: Order Comment: Call MD with results STAT Result Comment: Dimas roblero via OM: MD Ordered Performed By: #### L 501.080 #### [facility] [address] [place], [address] BUN/CRE 8.4 RATIO Low 10-20 [facility] Comment on above: Performed By: #### L 501.080 #### [facility] [address] [place], [address] CA,Total 8.7 mg/dL Normal 8.5-10.1 [facility] Comment on above: Performed By: #### L 501.080 #### [facility] [address] [place], [address] Chloride [Moles/Vol] 109 mmol/L High 98-107 [facility] Comment on above: Performed By: #### L 501.080 #### [facility] [address] [place], [address] CO2 [Moles/Vol] 15.0 mmol/L Low 21.0-32.0 [facility] Comment on above: Performed By: #### L 501.080 #### [facility] [address] [place], [address] Creatinine [Mass/Vol] 0.60 mg/dL Normal 0.55-1.02 [facility] Comment on above: Result Comment: The validity of the calculated GFR GFRAA in patients over 70 years has not been determined. Clinical correlation is essential. Performed By: #### L 501.080 #### [facility] [address] [place], [address] ECRCL 115.29 ml/min Normal [facility] Comment on above: Performed By: #### L 501.080 #### [facility] [address] [place], [address] EST GFR - AA 147 mL/min Normal >60 [facility] Comment on above: Result Comment: Afri can Venezuelan GFR Calc Performed By: #### L 501.080 #### [facility] [address] [place], [address] GAP 11 Normal 5-15 [facility] Comment on above: Performed By: #### L 501.080 #### [facility] [address] [place], [address] GFR/1.73 sq M.predicted among non-blacks MDRD (S/P/Bld) [Vol rate/Area] 122 mL/min/{1.73_m2} Normal >60 [facility] Comment on above: Result Comment: Non- GFR Calc Performed By: #### L 501.080 #### [facility] [address] [place], [address] Glucose [Mass/Vol] 200 mg/dL High 74-106 [facility] Comment on above: Result Comment: Gluc ose result greater than or equal to 200 mg/dL suggests DIABETES MELLITUS per A.D.A. criteria. Performed By: #### L 501.080 #### [facility] [address] [place], [address] Potassium [Moles/Vol] 4.2 mmol/L Normal 3.5-5.1 [facility] Comment on above: Performed By: #### L 501.080 #### [facility] [address] [place], [address] Sodium [Moles/Vol] 135 mmol/L Low 136-145 [facility] Comment on above: Performed By: #### L 501.080 #### [facility] [address] [place], [address] Urea nitrogen [Mass/Vol] 5 mg/dL Low 7-18 [facility] Comment on above: Performed By: #### L 501.080 #### [facility] [address] [place], [address] BUN Normal 7-18 [facility] Comment on above: Order Comment: Call MD with results STAT Result Comment: Canc elled via OM: MD Ordered Performed By: #### L 100.0100 #### [facility] [address] [place], [address] BUN/CRE Normal 10-20 [facility] Comment on above: Order Comment: Call MD with results STAT Result Comment: Caneric elled via OM: MD Ordered Performed By: #### L 100.0100 #### [facility] [address] [place], [address] CA,Total Normal 8.5-10.1 [facility] Comment on above: Order Comment: Call MD with results STAT Result Comment: Caneric elled via OM: MD Ordered Performed By: #### L 100.0100 #### [facility] [address] [place], [address] CL Normal 98-107 [facility] Comment on above: Order Comment: Call MD with results STAT Result Comment: Dimas elled via OM: MD Ordered Performed By: #### L 100.0100 #### [facility] [address] [place], [address] CO2 Normal 21.0-32.0 [facility] Comment on above: Order Comment: Call MD with results STAT Result Comment: Dimas elled via OM: MD Ordered Performed By: #### L 100.0100 #### [facility] [address] [place], [address] CREAT,SERUM Normal 0.55-1.02 [facility] Comment on above: Order Comment: Call MD with results STAT Result Comment: Canc elled via OM: MD Ordered Performed By: #### L 100.0100 #### [facility] [address] [place], [address] EST GFR Normal >60 [facility] Comment on above: Order Comment: Call MD with results STAT Result Comment: Canc elled via OM: MD Ordered Performed By: #### L 100.0100 #### [facility] [address] [place], [address] EST GFR - AA Normal >60 [facility] Comment on above: Order Comment: Call MD with results STAT Result Comment: Canc elled via OM: MD Ordered Performed By: #### L 100.0100 #### [facility] [address] [place], [address] GAP Normal 5-15 [facility] Comment on above: Order Comment: Call MD with results STAT Result Comment: Canc elled via OM: MD Ordered Performed By: #### L 100.0100 #### [facility] [address] [place], [address] GLU Normal 74-106 [facility] Comment on above: Order Comment: Call MD with results STAT Result Comment: Canc elled via OM: MD Ordered Performed By: #### L 100.0100 #### [facility] [address] [place], [address] Potassium Normal 3.5-5.1 [facility] Comment on above: Order Comment: Call MD with results STAT Result Comment: Canc elled via OM: MD Ordered Performed By: #### L 100.0100 #### [facility] [address] [place], [address] Basic Metabolic Profile (BMP) Normal 136-145 [facility] Comment on above: Order Comment: Call MD with results STAT Result Comment: Canc elled via OM: MD Ordered Performed By: #### L 100.0100 #### [facility] [address] [place], [address] BUN Normal 7-18 [facility] Comment on above: Order Comment: Call MD with results STAT Result Comment: CANC ELLATION ORDER Performed By: #### L 501.080 #### [facility] [address] [place], [address] BUN/CRE Normal 10-20 [facility] Comment on above: Order Comment: Call MD with results STAT Result Comment: CANC ELLATION ORDER Performed By: #### L 501.080 #### [facility] [address] [place], [address] CA,Total Normal 8.5-10.1 [facility] Comment on above: Order Comment: Call MD with results STAT Result Comment: CANC ELLATION ORDER Performed By: #### L 501.080 #### [facility] [address] [place], [address] CL Normal 98-107 [facility] Comment on above: Order Comment: Call MD with results STAT Result Comment: CANC ELLATION ORDER Performed By: #### L 501.080 #### [facility] [address] [place], [address] CO2 Normal 21.0-32.0 [facility] Comment on above: Order Comment: Call MD with results STAT Result Comment: CANC ELLATION ORDER Performed By: #### L 501.080 #### [facility] [address] [place], [address] CREAT,SERUM Normal 0.55-1.02 [facility] Comment on above: Order Comment: Call MD with results STAT Result Comment: CANC ELLATION ORDER Performed By: #### L 501.080 #### [facility] [address] [place], [address] EST GFR Normal >60 [facility] Comment on above: Order Comment: Call MD with results STAT Result Comment: CANC ELLATION ORDER Performed By: #### L 501.080 #### [facility] [address] [place], [address] EST GFR - AA Normal >60 [facility] Comment on above: Order Comment: Call MD with results STAT Result Comment: CANC ELLATION ORDER Performed By: #### L 501.080 #### [facility] [address] [place], [address] GAP Normal 5-15 [facility] Comment on above: Order Comment: Call MD with results STAT Result Comment: CANC ELLATION ORDER Performed By: #### L 501.080 #### [facility] [address] [place], [address] GLU Normal 74-106 [facility] Comment on above: Order Comment: Call MD with results STAT Result Comment: CANC ELLATION ORDER Performed By: #### L 501.080 #### [facility] [address] [place], [address] Potassium Normal 3.5-5.1 [facility] Comment on above: Order Comment: Call MD with results STAT Result Comment: CANC ELLATION ORDER Performed By: #### L 501.080 #### [facility] [address] [place], [address] Basic Metabolic Profile (BMP) Normal 136-145 [facility] Comment on above: Order Comment: Call MD with results STAT Result Comment: CANC ELLATION ORDER Performed By: #### L 501.080 #### [facility] [address] [place], [address] Bedside Glucoseon 04-05-2024 FINGERSTICK GLU 324 mg/dL High 74-106 [facility] Comment on above: Result Comment: KAZ YUN OF PATIENT CARE PER NURSING PROTOCOL Performed By: #### L 501.080 #### [facility] [address] [place], [address] FINGERSTICK GLU 202 mg/dL High 74-106 [facility] Comment on above: Result Comment: KAZ GEMENT OF PATIENT CARE PER NURSING PROTOCOL Performed By: #### L 501.080 #### [facility] [address] [place], [address] FINGERSTICK GLU 97 mg/dL Normal 74-106 [facility] Comment on above: Result Comment: KAZ GEMENT OF PATIENT CARE PER NURSING PROTOCOL Performed By: #### L 501.080 #### [facility] [address] [place], [address] CBC W/Diff, Automatedon 03-10 Lymphocytes/100 WBC (Bld) 13.1 % Low 19-41 [facility] Comment on above: Performed By: #### L 501.080 #### [facility] [address] [place], [address] Neutrophils/100 WBC (Bld) 79.2 % High 47-70 [facility] Comment on above: Performed By: #### L 501.080 #### [facility] [address] [place], [address] Discharge Instructionon 03-10 Discharge Instruction [facility] Medical Records Department [address] [place] [address] Instructions for Home/Discharge Instructions 04/05/24 1333 MR#: [id number] Acct: [id number] Name: BRETT BOBBY Rep #: [id number] : 1990 33 From: Michael Acosta DO [...] DO; Dr. Bryce Julien MD Signed Normal [facility] 12 Lead EKGon 04-04-2024 12 Lead EKG [facility] Cardiovascular Services [address] [place] [address] 12 Lead EKG 04/04/24 0854 MR#: [id number] Acct: [id number] Name: BRETT BOBBY Rep #: [id number] : 1990 33 From: Bob Henriquez MD [...] Borderline ECG Confirmed by CAMERON JENNINGS, BOB ([id number]), newspaper or periodical editor JUANJO COVARRUBIAS ([id number]) on 04/07/2024 7:30:04 AM Referred By: Confirmed By:BOB HENRIQUEZ MD 04/07/2430 Date Bob Henriquez MD CC: Dr. Aba Murguia MD; Dr. Meena Flowers DO; Dr. Michael Acosta DO Signed Normal [facility] Acetone Serumon 04-04-2024 ACETONE SERUM Negative Normal NEG [facility] Comment on above: Performed By: #### L 501.080 #### [facility] [address] [place], [address] ACETONE SERUM MODERATE Abnormal NEG [facility] Comment on above: Performed By: #### L 500.2500 #### [facility] [address] [place], [address] Basic Metabolic Profile (BMP )on 04-04-2024 BUN/CRE 8.5 RATIO Low 10-20 [facility] Comment on above: Order Comment: Call with results STAT Performed By: #### L 501.080 #### [facility] [address] [place], [address] CA,Total 8.5 mg/dL Normal 8.5-10.1 [facility] Comment on above: Order Comment: Call with results STAT Performed By: #### L 501.080 #### [facility] [address] [place], [address] Chloride [Moles/Vol] 110 mmol/L High 98-107 [facility] Comment on above: Order Comment: Call with results STAT Performed By: #### L 501.080 #### [facility] [address] [place], [address] CO2 [Moles/Vol] 16.0 mmol/L Low 21.0-32.0 [facility] Comment on above: Order Comment: Call MD with results STAT Performed By: #### L 501.080 #### [facility] [address] [place], [address] Creatinine [Mass/Vol] 0.70 mg/dL Normal 0.55-1.02 [facility] Comment on above: Order Comment: Call MD with results STAT Result Comment: The validity of the calculated GFR GFRAA in patients over 70 years has not been determined. Clinical correlation is essential. Performed By: #### L 501.080 #### [facility] [address] [place], [address] ECRCL 98.36 ml/min Normal [facility] Comment on above: Order Comment: Call MD with results STAT Performed By: #### L 501.080 #### [facility] [address] [place], [address] EST GFR - AA 122 mL/min Normal >60 [facility] Comment on above: Order Comment: Call MD with results STAT Result Comment: Afri can Venezuelan GFR Calc Performed By: #### L 501.080 #### [facility] [address] [place], [address] GAP 8 Normal 5-15 [facility] Comment on above: Order Comment: Call MD with results STAT Performed By: #### L 501.080 #### [facility] [address] [place], [address] GFR/1.73 sq M.predicted among non-blacks MDRD (S/P/Bld) [Vol rate/Area] 101 mL/min/{1.73_m2} Normal >60 [facility] Comment on above: Order Comment: Call MD with results STAT Result Comment: Non- GFR Calc Performed By: #### L 501.080 #### [facility] [address] [place], [address] Glucose [Mass/Vol] 163 mg/dL High 74-106 [facility] Comment on above: Order Comment: Call MD with results STAT Result Comment: Fast ing Glucose result greater than or equal to 126 mg/dL suggests DIABETES MELLITUS per A.D.A. criteria. Performed By: #### L 501.080 #### [facility] [address] [place], [address] Potassium [Moles/Vol] 3.6 mmol/L Normal 3.5-5.1 [facility] Comment on above: Order Comment: Call MD with results STAT Performed By: #### L 501.080 #### [facility] [address] [place], [address] Sodium [Moles/Vol] 134 mmol/L Low 136-145 [facility] Comment on above: Order Comment: Call MD with results STAT Performed By: #### L 501.080 #### [facility] [address] [place], [address] Urea nitrogen [Mass/Vol] 6 mg/dL Low 7-18 [facility] Comment on above: Order Comment: Call MD with results STAT Performed By: #### L 501.080 #### [facility] [address] [place], [address] BUN/CRE 7.3 RATIO Low 10-20 [facility] Comment on above: Order Comment: Call MD with results STAT Performed By: #### L 501.080 #### [facility] [address] [place], [address] CA,Total 8.6 mg/dL Normal 8.5-10.1 [facility] Comment on above: Order Comment: Call MD with results STAT Performed By: #### L 501.080 #### [facility] [address] [place], [address] Chloride [Moles/Vol] 109 mmol/L High 98-107 [facility] Comment on above: Order Comment: Call MD with results STAT Performed By: #### L 501.080 #### [facility] [address] [place], [address] CO2 [Moles/Vol] 13.0 mmol/L Low 21.0-32.0 [facility] Comment on above: Order Comment: Call MD with results STAT Performed By: #### L 501.080 #### [facility] [address] [place], [address] Creatinine [Mass/Vol] 0.83 mg/dL Normal 0.55-1.02 [facility] Comment on above: Order Comment: Call MD with results STAT Result Comment: The validity of the calculated GFR GFRAA in patients over 70 years has not been determined. Clinical correlation is essential. Performed By: #### L 501.080 #### [facility] [address] [place], [address] ECRCL 82.96 ml/min Normal [facility] Comment on above: Order Comment: Call MD with results STAT Performed By: #### L 501.080 #### [facility] [address] [place], [address] EST GFR - AA 101 mL/min Normal >60 [facility] Comment on above: Order Comment: Call MD with results STAT Result Comment: Afri can Venezuelan GFR Calc Performed By: #### L 501.080 #### [facility] [address] [place], [address] GAP 11 Normal 5-15 [facility] Comment on above: Order Comment: Call MD with results STAT Performed By: #### L 501.080 #### [facility] [address] [place], [address] GFR/1.73 sq M.predicted among non-blacks MDRD (S/P/Bld) [Vol rate/Area] 84 mL/min/{1.73_m2} Normal >60 [facility] Comment on above: Order Comment: Call MD with results STAT Result Comment: Non- GFR Calc Performed By: #### L 501.080 #### [facility] [address] [place], [address] Glucose [Mass/Vol] 237 mg/dL High 74-106 [facility] Comment on above: Order Comment: Call MD with results STAT Result Comment: Gluc ose result greater than or equal to 200 mg/dL suggests DIABETES MELLITUS per A.D.A. criteria. Performed By: #### L 501.080 #### [facility] [address] [place], [address] Potassium [Moles/Vol] 4.1 mmol/L Normal 3.5-5.1 [facility] Comment on above: Order Comment: Call MD with results STAT Performed By: #### L 501.080 #### [facility] [address] [place], [address] Sodium [Moles/Vol] 132 mmol/L Low 136-145 [facility] Comment on above: Order Comment: Call MD with results STAT Performed By: #### L 501.080 #### [facility] [address] [place], [address] Urea nitrogen [Mass/Vol] 6 mg/dL Low 7-18 [facility] Comment on above: Order Comment: Call MD with results STAT Performed By: #### L 501.080 #### [facility] [address] [place], [address] BUN/CRE 8.8 RATIO Low 10-20 [facility] Comment on above: Performed By: #### L 501.9985 #### [facility] [address] [place], [address] CA,Total 8.4 mg/dL Low 8.5-10.1 [facility] Comment on above: Performed By: #### L 501.9985 #### [facility] [address] [place], [address] Chloride [Moles/Vol] 109 mmol/L High 98-107 [facility] Comment on above: Performed By: #### L 501.9985 #### [facility] [address] [place], [address] CO2 [Moles/Vol] 8.0 mmol/L Invalid Interpretation Code 21.0-32.0 [facility] Comment on above: Result Comment: Crit ical Result(s) Called at: 15:05:58 04/04/2024 by: Emily Cortez to Renee Sosa. Results read back by same. Performed By: #### L 501.9985 #### [facility] [address] [place], [address] Creatinine [Mass/Vol] 0.80 mg/dL Normal 0.55-1.02 [facility] Comment on above: Result Comment: The validity of the calculated GFR GFRAA in patients over 70 years has not been determined. Clinical correlation is essential. Performed By: #### L 501.9985 #### [facility] [address] [place], [address] ECRCL 86.07 ml/min Normal [facility] Comment on above: Performed By: #### L 501.9985 #### [facility] [address] [place], [address] EST GFR - AA 106 mL/min Normal >60 [facility] Comment on above: Result Comment: Afri can [place]an GFR Calc Performed By: #### L 501.9985 #### [facility] [address] [place], [address] GAP 16 High 5-15 [facility] Comment on above: Performed By: #### L 501.9985 #### [facility] [address] [place], [address] GFR/1.73 sq M.predicted among non-blacks MDRD (S/P/Bld) [Vol rate/Area] 87 mL/min/{1.73_m2} Normal >60 [facility] Comment on above: Result Comment: Non- GFR Calc Performed By: #### L 501.9985 #### [facility] [address] [place], [address] Glucose [Mass/Vol] 248 mg/dL High 74-106 [facility] Comment on above: Result Comment: Gluc ose result greater than or equal to 200 mg/dL suggests DIABETES MELLITUS per A.D.A. criteria. Performed By: #### L 501.9985 #### [facility] [address] [place], [address] Potassium [Moles/Vol] 4.8 mmol/L Normal 3.5-5.1 [facility] Comment on above: Performed By: #### L 501.9985 #### [facility] [address] [place], [address] Sodium [Moles/Vol] 133 mmol/L Low 136-145 [facility] Comment on above: Performed By: #### L 501.9985 #### [facility] [address] [place], [address] Urea nitrogen [Mass/Vol] 7 mg/dL Normal 7-18 [facility] Comment on above: Performed By: #### L 501.9985 #### [facility] [address] [place], [address] BUN Normal 7-18 [facility] Comment on above: Order Comment: Call MD with results STAT Result Comment: Dimas roblero via OM: Ordered Performed By: #### L 501.080 #### [facility] [address] [place], [address] BUN/CRE Normal 10-20 [facility] Comment on above: Order Comment: Call MD with results STAT Result Comment: Canc elled via OM: MD Ordered Performed By: #### L 501.080 #### [facility] [address] [place], [address] CA,Total Normal 8.5-10.1 [facility] Comment on above: Order Comment: Call MD with results STAT Result Comment: Canc elled via OM: MD Ordered Performed By: #### L 501.080 #### [facility] [address] [place], [address] CL Normal 98-107 [facility] Comment on above: Order Comment: Call with results STAT Result Comment: Canc elled via OM: MD Ordered Performed By: #### L 501.080 #### [facility] [address] [place], [address] CO2 Normal 21.0-32.0 [facility] Comment on above: Order Comment: Call MD with results STAT Result Comment: Canc elled via OM: MD Ordered Performed By: #### L 501.080 #### [facility] [address] [place], [address] CREAT,SERUM Normal 0.55-1.02 [facility] Comment on above: Order Comment: Call with results STAT Result Comment: Canc elled via OM: MD Ordered Performed By: #### L 501.080 #### [facility] [address] [place], [address] EST GFR Normal >60 [facility] Comment on above: Order Comment: Call with results STAT Result Comment: Canc elled via OM: MD Ordered Performed By: #### L 501.080 #### [facility] [address] [place], [address] EST GFR - AA Normal >60 [facility] Comment on above: Order Comment: Call with results STAT Result Comment: Canc elled via OM: MD Ordered Performed By: #### L 501.080 #### [facility] [address] [place], [address] GAP Normal 5-15 [facility] Comment on above: Order Comment: Call MD with results STAT Result Comment: Canc elled via OM: MD Ordered Performed By: #### L 501.080 #### [facility] [address] [place], [address] GLU Normal 74-106 [facility] Comment on above: Order Comment: Call MD with results STAT Result Comment: Canc elled via OM: MD Ordered Performed By: #### L 501.080 #### [facility] [address] [place], [address] Potassium Normal 3.5-5.1 [facility] Comment on above: Order Comment: Call MD with results STAT Result Comment: Canc elled via OM: MD Ordered Performed By: #### L 501.080 #### [facility] [address] [place], [address] Basic Metabolic Profile (BMP) Normal 136-145 [facility] Comment on above: Order Comment: Call MD with results STAT Result Comment: Canc elled via OM: MD Ordered Performed By: #### L 501.080 #### [facility] [address] [place], [address] Bedside Glucoseon 04-04-2024 FINGERSTICK GLU 162 mg/dL High 74-106 [facility] Comment on above: Result Comment: KAZ GEMENT OF PATIENT CARE PER NURSING PROTOCOL Performed By: #### L 501.080 #### [facility] [address] [place], [address] FINGERSTICK GLU 194 mg/dL High 74-106 [facility] Comment on above: Result Comment: KAZ GEMENT OF PATIENT CARE PER NURSING PROTOCOL Performed By: #### L 501.080 #### [facility] [address] [place], [address] FINGERSTICK GLU 230 mg/dL High 74-106 [facility] Comment on above: Result Comment: KAZ GEMENT OF PATIENT CARE PER NURSING PROTOCOL Performed By: #### L 100.0100 #### [facility] [address] [place], [address] FINGERSTICK GLU 235 mg/dL High 74-106 [facility] Comment on above: Result Comment: KAZ GEMENT OF PATIENT CARE PER NURSING PROTOCOL Performed By: #### L 501.080 #### [facility] [address] [place], [address] FINGERSTICK GLU 243 mg/dL High -106 [facility] Comment on above: Result Comment: KAZ GEMENT OF PATIENT CARE PER NURSING PROTOCOL Performed By: #### L 501.080 #### [facility] [address] [place], [address] FINGERSTICK GLU 240 mg/dL High 74-106 [facility] Comment on above: Result Comment: KAZ GEMENT OF PATIENT CARE PER NURSING PROTOCOL Performed By: #### L 501.9985 #### [facility] [address] [place], [address] FINGERSTICK GLU 231 mg/dL High 74-106 [facility] Comment on above: Result Comment: KAZ GEMENT OF PATIENT CARE PER NURSING PROTOCOL Performed By: #### L 501.9985 #### [facility] [address] [place], [address] FINGERSTICK GLU 271 mg/dL High 74-106 [facility] Comment on above: Result Comment: KAZ GEMENT OF PATIENT CARE PER NURSING PROTOCOL Performed By: #### L 500.2500 #### [facility] [address] [place], [address] FINGERSTICK GLU 339 mg/dL High 74-106 [facility] Comment on above: Result Comment: KAZ GEMENT OF PATIENT CARE PER NURSING PROTOCOL Performed By: #### L 500.2500 #### [facility] [address] [place], [address] FINGERSTICK GLU 484 mg/dL Invalid Interpretation Code 74-106 [facility] Comment on above: Result Comment: Dr Lima aguilera Followed MANAGEMENT OF PATIENT CARE PER NURSING PROTOCOL Performed By: #### L 500.2500 #### [facility] [address] [place], [address] FINGERSTICK GLU 420 mg/dL High 74-106 [facility] Comment on above: Result Comment: KAZ GEMENT OF PATIENT CARE PER NURSING PROTOCOL Performed By: #### L 501.9985 #### [facility] [address] [place], [address] Chest 1 View (Portable)on Chest 1 View (Portable) [facility] Imaging Services [address] [place] [address] Chest 1 View (Portable) MR#: [id number] Acct: [id number] Name: BRETT BOBBY Rep #: [id number] : 1990 F 33 From: Danny diaz MD PCP: Dr. Meena Flowers, DO Status: REG ER Study: Chest 1 View (Portable) Date of Exam: 04/04/24 Exam# [id number] Ordering Dr: Aba Murguia MD [id number] STUDY: X-RAY CHEST REASON FOR EXAM: Female, [...] Aba Murguia MD; Dr. Meena Flowers DO Wheel Presser: Signed Normal [facility] Comprehensive Metabolic Prof ilon 04-04-2024 Albumin [Mass/Vol] 4.4 g/dL Normal 3.2-5.0 [facility] Comment on above: Performed By: #### L 500.2500 #### [facility] [address] [place], [address] Albumin/Globulin [Mass ratio] 0.8 {ratio} Low 0.9-2.4 [facility] Health Comment on above: Performed By: #### L 500.2500 #### [facility] [address] [place], [address] ALK P 122 U/L High 45-117 [facility] Comment on above: Performed By: #### L 500.2500 #### [facility] [address] [place], [address] ALT [Catalytic activity/Vol] 17 U/L Normal 13-56 [facility] Comment on above: Performed By: #### L [id number] #### [facility] [address] [place], [address] AST [Catalytic activity/Vol] 15 U/L Normal 15-37 [facility] Comment on above: Performed By: #### L 500.2500 #### [facility] [address] [place], [address] Bilirubin [Mass/Vol] 0.60 mg/dL Normal 0.20-1.00 [facility] Comment on above: Result Comment: For patients on eltrombopag therapy, use of Dimension [place] TBIL is not recommended. Performed By: #### L 500.2500 #### [facility] [address] [place], [address] BUN/CRE 9.7 RATIO Low 10-20 [facility] Comment on above: Performed By: #### L 500.2500 #### [facility] [address] [place], [address] CA,Total 9.8 mg/dL Normal 8.5-10.1 [facility] Comment on above: Performed By: #### L 500.2500 #### [facility] [address] [place], [address] Chloride [Moles/Vol] 95 mmol/L Low 98-107 [facility] Comment on above: Performed By: #### L 500.2500 #### [facility] [address] [place], [address] CO2 [Moles/Vol] 7.0 mmol/L Invalid Interpretation Code 21.0-32.0 [facility] Comment on above: Result Comment: Crit ical Result(s) Called at: 10:19:24 04/04/2024 by: Emily Cortez to [employer] Blackburn. Results read back by same. Performed By: #### L 500.2500 #### [facility] [address] [place], [address] Creatinine [Mass/Vol] 1.13 mg/dL High 0.55-1.02 [facility] Comment on above: Result Comment: The validity of the calculated GFR GFRAA in patients over 70 years has not been determined. Clinical correlation is essential. Performed By: #### L 500.2500 #### [facility] [address] [place], [address] ECRCL 60.29 ml/min Normal [facility] Comment on above: Performed By: #### L 500.2500 #### [facility] [address] [place], [address] EST GFR - AA 71 mL/min Normal >60 [facility] Comment on above: Result Comment: Afri can [place] GFR Calc Performed By: #### L 500.2500 #### [facility] [address] [place], [address] GAP 25 High 5-15 [facility] Comment on above: Performed By: #### L 500.2500 #### [facility] [address] [place], [address] GFR/1.73 sq M.predicted among non-blacks MDRD (S/P/Bld) [Vol rate/Area] 58 mL/min/{1.73_m2} Low >60 [facility] Comment on above: Result Comment: Non- GFR Calc Performed By: #### L 500.2500 #### [facility] [address] [place], [address] Globulin (S) [Mass/Vol] 5.5 g/dL High 2.2-4.2 [facility] Comment on above: Performed By: #### L 500.2500 #### [facility] [address] [place], [address] Glucose [Mass/Vol] 452 mg/dL Invalid Interpretation Code 74-106 [facility] Comment on above: Result Comment: Crit ical Result(s) Called at: 10:19:24 04/04/2024 by: Emily Cortez to [employer] Blackburn. Results read back by same. Glucose result greater than or equal to 200 mg/dL suggests DIABETES MELLITUS per A.D.A. criteria. Performed By: #### L 500.2500 #### [facility] [address] [place], [address] Potassium [Moles/Vol] 6.4 mmol/L Invalid Interpretation Code 3.5-5.1 [facility] Comment on above: Result Comment: Paul ical Result(s) Called at: 10:19:24 04/04/2024 by: Emily Cortez to [employer] Blackburn. Results read back by same. Performed By: #### L 500.2500 #### [facility] [address] [place], [address] Sodium [Moles/Vol] 127 mmol/L Low 136-145 [facility] Comment on above: Performed By: #### L 500.2500 #### [facility] [address] [place], [address] T PROT 9.9 g/dL High 6.4-8.2 [facility] Comment on above: Performed By: #### L 500.2500 #### [facility] [address] [place], [address] Urea nitrogen [Mass/Vol] 11 mg/dL Normal 7-18 [facility] Comment on above: Performed By: #### L 500.2500 #### [facility] [address] [place], [address] Emergency Department Summary on 04-04-2024 Emergency Department Summary [facility] Medical Records Department [address] [place] [address] Emergency Department Summary 04/04/24 MR#: [id number] Acct: [id number] Name: BRETT BOBBY Rep #: [id number] : 1990 33 From: Aba Murguia MD [...] started this morning that she knows of. [facility] Medical History Tobacco abuse Stage 3a chronic [...] or lesions (more content not included)... Normal [facility] H AND P Exam - Hospitaliston 04-04-2024 H&P Exam - Hospitalist [facility] Medical Records Department [address] [place] [address] H P Exam - Hospitalist 04/04/24 1753 MR#: [id number] Acct: [id number] Name: BRETT BOBBY Rep #: [id number] : 1990 33 From: Bryce Julien MD PCP: Dr. Meena Flowers, DO Status:ADM IN Location: ICU [id number] HPI - General General Date of Admission: [...] precipitated this episode of DKA. [facility] Medical History Tobacco abuse Stage 3a chronic [...] Air 03/10 (more content not included)... Normal [facility] ,Urineon 04-04-2024 Beta HCG ( test) Ql (U) Negative Normal [facility] Comment on above: Order Comment: CLEAN CATCH Result Comment: Very dilute urine specimens, as indicated by a low specific gravity, may not contain entry level account representative levels of hCG. If is still suspected, a first morning urine specimen should be collected 48 hours later and tested. Performed By: #### L 501.9985 #### [facility] [address] [place], [address] Urinalysis, Completeon 04-04 EPI,SQUAMOUS 0-5 SEEN Normal 5-10 [facility] Comment on above: Order Comment: CLEAN CATCH Performed By: #### L 501.9985 #### [facility] [address] [place], [address] BACTERIA 0 SEEN Normal None Seen [facility] Comment on above: Order Comment: CLEAN CATCH Performed By: #### L 501.9985 #### [facility] [address] [place], [address] Mucus Ql (Urine sed) 0 SEEN Normal [facility] Comment on above: Order Comment: CLEAN CATCH Performed By: #### L 501.9985 #### [facility] [address] [place], [address] RBC 0 SEEN Normal 0-5 [facility] Comment on above: Order Comment: CLEAN CATCH Performed By: #### L 501.9985 #### [facility] [address] [place], [address] WBC 0 SEEN Normal 0-5 [facility] Comment on above: Order Comment: CLEAN CATCH Performed By: #### L 501.9985 #### [facility] [address] [place], [address] Venous Blood Gason 4 Blood Gas Type BETHANY Normal [facility] Comment on above: Performed By: #### L 500.2500 #### [facility] [address] [place], [address] CO2 [Moles/Vol] 7 mmol/L Low 23-33 [facility] Comment on above: Performed By: #### L 500.2500 #### [facility] [address] [place], [address] HCO3 (Bld) [Moles/Vol] 6 mmol/L Low 22-26 [facility] Comment on above: Performed By: #### L 500.2500 #### [facility] [address] [place], [address] O2 Delivery Dev Room Air [facility] Comment on above: Performed By: #### L 500.2500 #### [facility] [address] [place], [address] Read Back By Yes [facility] Comment on above: Performed By: #### L 500.2500 #### [facility] [address] [place], [address] Results To everardo [facility] Comment on above: Performed By: #### L 500.2500 #### [facility] [address] [place], [address] SITE Not entered [facility] Comment on above: Performed By: #### L 500.2500 #### [facility] [address] [place], [address] Time Given 09:46:03 [facility] Comment on above: Performed By: #### L 500.2500 #### [facility] [address] [place], [address] VBG BE -26 mmol/L Low -1.0-3.5 [facility] Comment on above: Performed By: #### L 500.2500 #### [facility] [address] [place], [address] VBG pCO2 24.1 mmHg Low 41-51 [facility] Comment on above: Performed By: #### L 500.2500 #### [facility] [address] [place], [address] VBG pH 6.99 Invalid Interpretation Code 7.32-7.42 [facility] Comment on above: Performed By: #### L 500.2500 #### [facility] [address] [place], [place], [id number] VBG PO2 45 mmHg High 25-40 [facility] Comment on above: Performed By: #### L 500.2500 #### [facility] [address] [place], [place], [address] VBG SO2 57 Normal 50-70 [facility] Comment on above: Performed By: #### L 500.2500 #### [facility] [address] [place], [place], [address] Absolute lymphocyte countOrd ered By: Risa Gatica on 09-24-2023 Lymphocytes Auto (Unsp spec) [#/Vol] 1.34 10*3/uL 0.83-4.51 [facility] Automated lymphocyte count a s percentage of total leukocytesOrdered By: Risa Gatica on 09-24-2023 Lymphocytes/100 WBC Auto (Unsp spec) 14.7 % 19-41 [facility] Basophil percentageOrdered B y: Risa Gatica on 09-24-2023 Basophil percentage 10-25 SEEN /hpf 0-5 [facility] Basophils/100 WBC (Bld) 0.6 % 0-1 [facility] Chloride [Moles/Vol] 100 mmol/L 98-107 [facility] Eosinophils/100 WBC (Bld) 0.0 % 0-5 [facility] Glucose [Mass/Vol] 280 mg/dL 74-106 [facility] Comment on above: Glucose result great er than or equal to 200 mg/dLsuggests DIABETES MELLITUS per A.D.A. criteria. Hemoglobin (Bld) [Mass/Vol] 13.3 g/dL 12.0-15.0 [facility] Monocytes/100 WBC (Bld) 5.7 % 0-10 [facility] Neutrophils (Bld) [#/Vol] 7.1 10*3/uL 2.0-7.7 [facility] Neutrophils/100 WBC (Bld) 78.6 % 47-70 [facility] Potassium [Moles/Vol] 3.9 mmol/L 3.5-5.1 [facility] Sodium [Moles/Vol] 132 mmol/L 136-145 [facility] WBC (Bld) [#/Vol] 9.1 10*3/uL 4.4-11.0 [facility] Bilirubin Test strip Ql (U)O rdered By: Risa Gatica on 09-24-2023 Bilirubin Ql (U) Negative Negative [facility] Determination of erythrocyte mean corpuscular volume (MCV)Ordered By: Risa Gatica on 09-24-2023 MCV (RBC) [Entitic vol] 89.0 fL 81-99 [facility] Erythrocyte distribution wid th ratioOrdered By: Risa Gatica on 09-24-2023 Erythrocyte distribution width (RBC) [Ratio] 13.2 % 11.6-14.6 [facility] Erythrocyte distribution wid th standard deviationOrdered By: Risa Gatica on 09-24-2023 Erythrocyte distribution width (RBC) [Entitic vol] 43.1 fL 35.1-43.9 [facility] Hematocrit Auto (Bld) [Volum e fraction]Ordered By: Risa Gatica on 09-24-2023 Hematocrit (Bld) [Volume fraction] 40.5 % 37-47 [facility] Immature granulocytes/100 WB C Auto (Bld)Ordered By: Risa Gatica on 09-24-2023 Immature granulocytes/100 WBC (Bld) 0.400 % 0.0-0.9 [facility] Comment on above: IG% - Immature Granu locytes (promyelocytes, myelocytes and metamyelocytes) > 1% indicates that a LEFT SHIFT is Present. Ketones Test strip Ql (U)Ord ered By: Risa Gatica on 09-24-2023 Ketones Ql (U) 150 mg/dl Negative [facility] Comment on above: CRITICAL VALUE *HCRI TICAL VALUE VERIFIED. CALLED TO MIRELLA VILLALPANDO (ER)09/24/23 1330 Harjit Whitley.RESULTS READ BACK BY SAME. Laboratory - Chemistry and C hemistry - challengeOrdered By: Risa Gatica on 09-24-2023 CO2 [Moles/Vol] 21.0 mmol/L 21.0-32.0 [facility] Urea nitrogen/Creatinine [Mass ratio] 14.6 mg/mg 10-20 [facility] - Hematology and Cell countsOrdered By: Risa Gatica on 09-24-2023 MCH (RBC) [Entitic mass] 29.2 pg 27.0-32.0 [facility] MCHC (RBC) [Mass/Vol] 32.8 g/dL 32-36 [facility] Nucleated RBC/100 WBC (Bld) [Ratio] 0 % 0-5 [facility] Platelet mean volume (Bld) [Entitic vol] 9.8 fL 6.2-12.0 [facility] Platelets (Bld) [#/Vol] 369 10*3/uL 150-450 [facility] Mucus LM Ql (Urine sed)Order ed By: Risa Gatica on 09-24-2023 Mucus Ql (Urine sed) 0 SEEN /hpf [facility] Nitrite Test strip Ql (U)Ord ered By: Risa Gatica on 09-24-2023 Nitrite Ql (U) Positive Negative [facility] No Panel InformationOrdered By: Risa Gatica on 09-24-2023 Urine RBC 0-5 SEEN /hpf 0-5 [facility] Estimated Creatinine Clearance Calc 106.73 ml/min [facility] Estimated GFR (MDRD) Amer 127 mL/min >60 [facility] Comment on above: GFR Calc Estimated GFR (MDRD) Non-Af Amer 105 mL/min >60 [facility] Comment on above: Non- GFR Calc Troponin I High Sensitivity 3 pg/mL 3.0-54.0 [facility] Comment on above: Please Note: [place] t Units and Gender Specific Reference Ranges. For more information see Policy Stat Procedure [place] High Sensitivity Troponin (TNIH) and attachments. Protein Test strip Ql (U)Ord ered By: Risa aGtica on 09-24-2023 Protein Ql (U) 30 mg/dl Negative [facility] RBC Auto (Bld) [#/Vol]Ordere d By: Risa Gatica on 09-24-2023 RBC (Bld) [#/Vol] 4.55 10*6/uL 4.2-5.4 [facility] Serum or plasma acetone xin urement (mass/volume)Ordered By: Risa Gaitca on 09-24-2023 Acetone [Mass/Vol] Negative NEG [facility] Serum or plasma calcium xin urement (mass/volume)Ordered By: Risa Gatica on 09-24-2023 Calcium [Mass/Vol] 9.3 mg/dL 8.5-10.1 [facility] Serum or plasma creatinine m easurement (mass/volume)Ordered By: Risa Gatica on 09-24-2023 Creatinine [Mass/Vol] 0.68 mg/dL 0.55-1.02 [facility] Comment on above: The validity of the calculated GFR & GFRAA in patients over 70 years has not been determined. Clinical correlation is essential. Serum or plasma urea nitroge n measurement (mass/volume)Ordered By: Risa Gatica on 09-24-2023 Urea nitrogen [Mass/Vol] 10 mg/dL 7-18 [facility] Squamous epithelial cells de tection in urine sediment by light microscopyOrdered By: Risa aGtica on 09-24-2023 Epithelial cells.squamous LM Ql (Urine sed) 0-5 SEEN /hpf 5-10 [facility] Thin prep Papanicolaou smear with manual screeningOrdered By: Risa Gatica on 09-24-2023 Thin prep Papanicolaou smear with manual screening 265 mg/dL 74-106 [facility] Comment on above: MANAGEMENT OF PATIEN T CARE PER NURSING PROTOCOL Thin prep Papanicolaou smear with manual screening 11 5-15 [facility] Urine blood detectionOrdered By: Risa Gatica on 09-24-2023 RBC Ql (U) 10 /ul Negative [facility] Urine clarityOrdered By: Giselle Gatica on 09-24-2023 Clarity (U) Sl. Cloudy Clear [facility] Urine color determinationOrd ered By: Risa Gatica on 09-24-2023 Color (U) Yellow Yellow [facility] Urine glucose detectionOrder ed By: Risa Gatica on 09-24-2023 Glucose Ql (U) 1000 mg/dl Normal [facility] Urine leukocyte esterase det ection by dipstickOrdered By: Risa Gatica on 09-24-2023 Leukocyte esterase Test strip Ql (U) 100 /ul Negative [facility] Urine pHOrdered By: Risa Gatica on 09-24-2023 pH (U) 6.0 [pH] 5.0 - 8.0 [facility] Urine sediment bacteria coun t by microscopy (number/high power field)Ordered By: Risa Gatica on 09-24-2023 Bacteria LM.HPF (Urine sed) [#/Area] 1 /[HPF] None Seen [facility] Urine specific gravity measu rementOrdered By: Risa Gatica on 09-24-2023 Specific gravity (U) [Rel density] 1.010 1.002-1.030 [facility] Urine urobilinogen measureme ntOrdered By: Risa Gatica on 09-24-2023 Urobilinogen Ql (U) Normal mg/dl Normal [facility] Absolute lymphocyte countOrd ered By: David Miramontes on 05-26-2023 Lymphocytes Auto (Unsp spec) [#/Vol] 1.50 10*3/uL 0.83-4.51 [facility] Basophil percentageOrdered B y: David Miramontes on 05-26-2023 Chloride [Moles/Vol] 112 mmol/L 98-107 [facility] Glucose [Mass/Vol] 297 mg/dL 74-106 [facility] Comment on above: Glucose result great er than or equal to 200 mg/dLsuggests DIABETES MELLITUS per A.D.A. criteria. Potassium [Moles/Vol] 4.1 mmol/L 3.5-5.1 [facility] Sodium [Moles/Vol] 137 mmol/L 136-145 [facility] Basophil percentage 1.6 mg/dL 2.5-4.9 [facility] Basophils/100 WBC (Bld) 1.0 % 0-1 [facility] Eosinophils/100 WBC (Bld) 1.4 % 0-5 [facility] Neutrophils (Bld) [#/Vol] 5.2 10*3/uL 2.0-7.7 [facility] Neutrophils/100 WBC (Bld) 67.2 % 47-70 [facility] WBC (Bld) [#/Vol] 7.7 10*3/uL 4.4-11.0 [facility] Blood erythrocytes count (nu mber/volume)Ordered By: David Miramontes on 05-26-2023 RBC (Bld) [#/Vol] 4.00 10*6/uL 4.2-5.4 [facility] Blood hemoglobin measurement (mass/volume)Ordered By: David Miramontes on 05-26-2023 Hemoglobin (Bld) [Mass/Vol] 12.7 g/dL 12.0-15.0 [facility] Blood lymphocytes/100 leukoc ytesOrdered By: David Miramontes on 05-26-2023 Lymphocytes/100 WBC (Bld) 19.4 % 19-41 [facility] Blood monocytes/100 leukocyt esOrdered By: David Miramontes on 05-26-2023 Monocytes/100 WBC (Bld) 10.6 % 0-10 [facility] Blood platelet mean volumeOr dered By: David Miramontes on 05-26-2023 Platelet mean volume (Bld) [Entitic vol] 9.8 fL 6.2-12.0 [facility] Determination of erythrocyte mean corpuscular volume (MCV)Ordered By: David Miramontes on 05-26-2023 MCV (RBC) [Entitic vol] 98.8 fL 81-99 [facility] Glucose Glucometer (dC) [M ass/Vol]Ordered By: Douglas Serrano on 05-26-2023 Glucose [Mass/Vol] 153 mg/dL 74-106 [facility] Comment on above: MANAGEMENT OF PATIEN T CARE PER NURSING PROTOCOL Hematocrit Auto (Bld) [Volum e fraction]Ordered By: David Miramontes on 05-26-2023 Hematocrit (Bld) [Volume fraction] 39.5 % 37-47 [facility] - Chemistry and C hemistry - challengeOrdered By: David Miramontes on 05-26-2023 CO2 [Moles/Vol] 14.0 mmol/L 21.0-32.0 [facility] Urea nitrogen/Creatinine [Mass ratio] 2.9 mg/mg 10-20 [facility] Magnesium [Mass/Vol] 1.7 mg/dL 1.6-2.6 [facility] - Hematology and Cell countsOrdered By: David Miramontes on 05-26-2023 Erythrocyte distribution width (RBC) [Entitic vol] 45.2 fL 35.1-43.9 [facility] Erythrocyte distribution width (RBC) [Ratio] 12.5 % 11.6-14.6 [facility] Immature granulocytes/100 WBC (Bld) 0.400 % 0.0-0.9 [facility] Comment on above: IG% - Immature Granu locytes (promyelocytes, myelocytes and metamyelocytes) > 1% indicates that a LEFT SHIFT is Present. MCH (RBC) [Entitic mass] 31.8 pg 27.0-32.0 [facility] Nucleated RBC/100 WBC (Bld) [Ratio] 0 % 0-5 [facility] MCHC Auto (RBC) [Mass/Vol]Or dered By: David Miramontes on 05-26-2023 MCHC (RBC) [Mass/Vol] 32.2 g/dL 32-36 [facility] No Panel InformationOrdered By: David Miramontes on 05-26-2023 Estimated Creatinine Clearance Calc 87.51 ml/min [facility] Estimated GFR (MDRD) Amer 126 mL/min >60 [facility] Comment on above: GFR Calc Estimated GFR (MDRD) Non-Af Amer 104 mL/min >60 [facility] Comment on above: Non- GFR Calc Platelets bldOrdered By: Tom Miramontes on 05-26-2023 Platelets (Bld) [#/Vol] 284 10*3/uL 150-450 [facility] Serum or plasma calcium xin urement (mass/volume)Ordered By: David Miramontes on 05-26-2023 Calcium [Mass/Vol] 8.2 mg/dL 8.5-10.1 [facility] Serum or plasma creatinine m easurement (mass/volume)Ordered By: David Miramontes on 05-26-2023 Creatinine [Mass/Vol] 0.69 mg/dL 0.55-1.02 [facility] Comment on above: The validity of the calculated GFR & GFRAA in patients over 70 years has not been determined. Clinical correlation is essential. Serum or plasma urea nitroge n measurement (mass/volume)Ordered By: David Miramontes on 05-26-2023 Urea nitrogen [Mass/Vol] 2 mg/dL - [facility] Thin prep Papanicolaou smear with manual screeningOrdered By: David Miramontes on 05-26-2023 Thin prep Papanicolaou smear with manual screening 11 11-20 [facility] Absolute lymphocyte countOrd ered By: Risa Gatica on 05-25-2023 Lymphocytes Auto (Unsp spec) [#/Vol] 1.15 10*3/uL 0.83-4.51 [facility] Basophil percentageOrdered B y: Risa Gatica on 05-25-2023 Chloride [Moles/Vol] 110 mmol/L 98-107 [facility] Glucose [Mass/Vol] 175 mg/dL 74-106 [facility] Comment on above: Fasting Glucose resu lt greater than or equal to 126 mg/dL suggests DIABETES MELLITUS per A.D.A. criteria. Potassium [Moles/Vol] 4.1 mmol/L 3.5-5.1 [facility] Sodium [Moles/Vol] 136 mmol/L 136-145 [facility] Basophil percentage 0-5 SEEN /hpf 0-5 [facility] Basophils/100 WBC (Bld) 1.2 % 0-1 [facility] Bilirubin [Mass/Vol] 0.70 mg/dL 0.20-1.00 [facility] Comment on above: For patients on eltr ombopag therapy, use of Dimension [place] TBIL is not recommended. Eosinophils/100 WBC (Bld) 0.1 % 0-5 [facility] Neutrophils (Bld) [#/Vol] 7.3 10*3/uL 2.0-7.7 [facility] Neutrophils/100 WBC (Bld) 78.8 % 47-70 [facility] Protein [Mass/Vol] 8.5 g/dL 6.4-8.2 [facility] WBC (Bld) [#/Vol] 9.3 10*3/uL 4.4-11.0 [facility] Bilirubin Test strip Ql (U)O rdered By: Risa Gatica on 05-25-2023 Bilirubin Ql (U) Negative Negative [facility] Blood erythrocytes count (nu mber/volume)Ordered By: Risa Gatica on 05-25-2023 RBC (Bld) [#/Vol] 4.71 10*6/uL 4.2-5.4 [facility] Blood hemoglobin measurement (mass/volume)Ordered By: Risa Gatica on 05-25-2023 Hemoglobin (Bld) [Mass/Vol] 14.9 g/dL 12.0-15.0 [facility] Blood lymphocytes/100 leukoc ytesOrdered By: Risa Gatica on 05-25-2023 Lymphocytes/100 WBC (Bld) 12.4 % 19-41 [facility] Blood monocytes/100 leukocyt esOrdered By: Risa Gatica on 05-25-2023 Monocytes/100 WBC (Bld) 7.1 % 0-10 [facility] Blood platelet mean volumeOr dered By: Risa Gatica on 05-25-2023 Platelet mean volume (Bld) [Entitic vol] 9.8 fL 6.2-12.0 [facility] Determination of erythrocyte mean corpuscular volume (MCV)Ordered By: Risa Gatica on 05-25-2023 MCV (RBC) [Entitic vol] 100.2 fL 81-99 [facility] Direct bilirubinOrdered By: Risa Gatica on 05-25-2023 Bilirubin.direct [Mass/Vol] 0.28 mg/dL 0.00-0.30 [facility] Glucose Glucometer (dC) [M ass/Vol]Ordered By: David Miramontes on 05-25-2023 Glucose [Mass/Vol] 191 mg/dL 74-106 [facility] Comment on above: MANAGEMENT OF PATIEN T CARE PER NURSING PROTOCOL Hematocrit Auto (Bld) [Volum e fraction]Ordered By: Risa Gatica on 05-25-2023 Hematocrit (Bld) [Volume fraction] 47.2 % 37-47 [facility] Ketones Test strip Ql (U)Ord ered By: Risa Gatica on 05-25-2023 Ketones Ql (U) 150 mg/dl Negative [facility] Comment on above: CRITICAL VALUE *HCRI TICAL VALUE VERIFIED. CALLED TO [id number] Angely Paiz.RESULTS READ BACK BY SAME . Laboratory - Chemistry and C hemistry - challengeOrdered By: Risa Gatica on 05-25-2023 CO2 [Moles/Vol] 10.0 mmol/L 21.0-32.0 [facility] Urea nitrogen/Creatinine [Mass ratio] 5.1 mg/mg 10-20 [facility] ALP [Catalytic activity/Vol] 116 U/L 45-117 [facility] ALT [Catalytic activity/Vol] 75 U/L 13-56 [facility] Globulin (S) [Mass/Vol] 4.8 g/dL 2.2-4.2 [facility] - Hematology and Cell countsOrdered By: Risa Gatica on 05-25-2023 Erythrocyte distribution width (RBC) [Entitic vol] 46.5 fL 35.1-43.9 [facility] Erythrocyte distribution width (RBC) [Ratio] 12.6 % 11.6-14.6 [facility] Immature granulocytes/100 WBC (Bld) 0.400 % 0.0-0.9 [facility] Comment on above: IG% - Immature Granu locytes (promyelocytes, myelocytes and metamyelocytes) > 1% indicates that a LEFT SHIFT is Present. MCH (RBC) [Entitic mass] 31.6 pg 27.0-32.0 [facility] Nucleated RBC/100 WBC (Bld) [Ratio] 0 % 0-5 [facility] MCHC Auto (RBC) [Mass/Vol]Or dered By: Risa Gatica on 05-25-2023 MCHC (RBC) [Mass/Vol] 31.6 g/dL 32-36 [facility] Mucus LM Ql (Urine sed)Order ed By: Risa Gatica on 05-25-2023 Mucus Ql (Urine sed) 0 SEEN /hpf [facility] Nitrite Test strip Ql (U)Ord ered By: Risa Gatica on 05-25-2023 Nitrite Ql (U) Negative Negative [facility] No Panel InformationOrdered By: Risa Gatica on 05-25-2023 Estimated Creatinine Clearance Calc 102.34 ml/min [facility] Estimated GFR (MDRD) Amer 150 mL/min >60 [facility] Comment on above: GFR Calc Estimated GFR (MDRD) Non-Af Amer 124 mL/min >60 [facility] Comment on above: Non- GFR Calc Platelets bldOrdered By: Giselle Gatica on 05-25-2023 Platelets (Bld) [#/Vol] 335 10*3/uL 150-450 [facility] Protein Test strip Ql (U)Ord ered By: Risa Gatica on 05-25-2023 Protein Ql (U) 30 mg/dl Negative [facility] Serum or plasma acetone xin urement (mass/volume)Ordered By: Risa Gatica on 05-25-2023 Acetone [Mass/Vol] MODERATE NEG [facility] Serum or plasma albumin xin urement (mass/volume)Ordered By: Risa Gatica on 05-25-2023 Albumin [Mass/Vol] 3.7 g/dL 3.2-5.0 [facility] Serum or plasma calcium xin urement (mass/volume)Ordered By: Risa Gatica on 05-25-2023 Calcium [Mass/Vol] 8.0 mg/dL 8.5-10.1 [facility] Serum or plasma creatinine m easurement (mass/volume)Ordered By: Risa Gatica on 05-25-2023 Creatinine [Mass/Vol] 0.59 mg/dL 0.55-1.02 [facility] Comment on above: The validity of the calculated GFR & GFRAA in patients over 70 years has not been determined. Clinical correlation is essential. Serum or plasma urea nitroge n measurement (mass/volume)Ordered By: Risa Gatica on 05-25-2023 Urea nitrogen [Mass/Vol] 3 mg/dL 7-18 [facility] Squamous epithelial cells de tection in urine sediment by light microscopyOrdered By: Risa Gatica on 05-25-2023 Epithelial cells.squamous LM Ql (Urine sed) 0-5 SEEN /hpf 5-10 [facility] Thin prep Papanicolaou smear with manual screeningOrdered By: Risa Gatica on 05-25-2023 Thin prep Papanicolaou smear with manual screening 16 5-15 [facility] Thin prep Papanicolaou smear with manual screening 64 U/L 15-37 [facility] Urine blood detectionOrdered By: Risa Gatica on 05-25-2023 RBC Ql (U) 10 /ul Negative [facility] RBC Ql (U) 0-5 SEEN /hpf 0-5 [facility] Urine clarityOrdered By: Giselle Gatica on 05-25-2023 Clarity (U) Clear Clear [facility] Urine color determinationOrd ered By: Risa Gatica on 05-25-2023 Color (U) Yellow Yellow [facility] Urine glucose detectionOrder ed By: Risa Gatica on 05-25-2023 Glucose Ql (U) 1000 mg/dl Normal [facility] Urine leukocyte esterase det ection by dipstickOrdered By: Risa Gatica on 05-25-2023 Leukocyte esterase Test strip Ql (U) Negative Negative [facility] Urine pHOrdered By: Risa Gatica on 05-25-2023 pH (U) 5.0 [pH] 5.0 - 8.0 [facility] Urine sediment bacteria coun t by microscopy (number/high power field)Ordered By: Risa Gatica on 05-25-2023 Bacteria LM.HPF (Urine sed) [#/Area] RARE /hpf None Seen [facility] Urine specific gravity measu rementOrdered By: Risa Gatica on 05-25-2023 Specific gravity (U) [Rel density] 1.025 1.002-1.030 [facility] Urobilinogen Auto test strip Ql (U)Ordered By: Risa Gatica on 05-25-2023 Urobilinogen Ql (U) Normal mg/dl Normal [facility] Whole blood hemoglobin A1c/t otal hemoglobin ratio (mass fraction)Ordered By: David Miramontes on 05-25-2023 HbA1c (Bld) [Mass fraction] 8.3 % 3.8-5.6 [facility] Comment on above: Normal < 5.7 % Predi abetic 5.7 - 6.4 % Diabetic >or= 6.5 % Please note range changes. Absolute lymphocyte countOrd ered By: Efrem Lock on 05-23-2023 Lymphocytes Auto (Unsp spec) [#/Vol] 1.42 10*3/uL 0.83-4.51 [facility] Basophil percentageOrdered B y: Efrem Lock on 05-23-2023 Basophils/100 WBC (Bld) 0.7 % 0-1 [facility] Chloride [Moles/Vol] 103 mmol/L 98-107 [facility] Eosinophils/100 WBC (Bld) 0.1 % 0-5 [facility] Glucose [Mass/Vol] 432 mg/dL 74-106 [facility] Comment on above: Glucose result great er than or equal to 200 mg/dLsuggests DIABETES MELLITUS per A.D.A. criteria. Neutrophils (Bld) [#/Vol] 9.9 10*3/uL 2.0-7.7 [facility] Neutrophils/100 WBC (Bld) 81.5 % 47-70 [facility] Potassium [Moles/Vol] 4.6 mmol/L 3.5-5.1 [facility] Comment on above: Moderate Hemolysis, Result may be falsely increased. Sodium [Moles/Vol] 137 mmol/L 136-145 [facility] WBC (Bld) [#/Vol] 12.1 10*3/uL 4.4-11.0 [facility] Blood erythrocytes count (nu mber/volume)Ordered By: Efrem Lock on 05-23-2023 RBC (Bld) [#/Vol] 4.88 10*6/uL 4.2-5.4 [facility] Blood hemoglobin measurement (mass/volume)Ordered By: Efrem Lock on 05-23-2023 Hemoglobin (Bld) [Mass/Vol] 15.5 g/dL 12.0-15.0 [facility] Blood lymphocytes/100 leukoc ytesOrdered By: Efrem Lock on 05-23-2023 Lymphocytes/100 WBC (Bld) 11.8 % 19-41 [facility] Blood monocytes/100 leukocyt esOrdered By: Efrem Lock on 05-23-2023 Monocytes/100 WBC (Bld) 5.5 % 0-10 [facility] Blood platelet mean volumeOr dered By: Efrem Lock on 05-23-2023 Platelet mean volume (Bld) [Entitic vol] 9.5 fL 6.2-12.0 [facility] Determination of erythrocyte mean corpuscular volume (MCV)Ordered By: Efrem Lock on 05-23-2023 MCV (RBC) [Entitic vol] 96.9 fL 81-99 [facility] Glucose Glucometer (BldC) [M ass/Vol]Ordered By: Efrem Lock on 05-23-2023 Glucose [Mass/Vol] 451 mg/dL 74-106 [facility] Comment on above: Dr Amanda CramerMA NAGEMENT OF PATIENT CARE PER NURSING PROTOCOL HCO3 (BldA) [Moles/Vol]Order ed By: Efrem Lock on 05-23-2023 HCO3 (Bld) [Moles/Vol] 19 mmol/L 22-26 [facility] Hematocrit Auto (Bld) [Volum e fraction]Ordered By: Efrem Lock on 05-23-2023 Hematocrit (Bld) [Volume fraction] 47.3 % 37-47 [facility] Laboratory - Chemistry and C hemistry - challengeOrdered By: Efrem Lock on 05-23-2023 CO2 [Moles/Vol] 20 mmol/L 23-33 [facility] CO2 [Moles/Vol] 20.0 mmol/L 21.0-32.0 [facility] Urea nitrogen/Creatinine [Mass ratio] 9.1 mg/mg 10-20 [facility] Laboratory - Hematology and Cell countsOrdered By: Efrem Lock on 05-23-2023 Erythrocyte distribution width (RBC) [Entitic vol] 45.6 fL 35.1-43.9 [facility] Erythrocyte distribution width (RBC) [Ratio] 12.9 % 11.6-14.6 [facility] Immature granulocytes/100 WBC (Bld) 0.400 % 0.0-0.9 [facility] Comment on above: IG% - Immature Granu locytes (promyelocytes, myelocytes and metamyelocytes) > 1% indicates that a LEFT SHIFT is Present. MCH (RBC) [Entitic mass] 31.8 pg 27.0-32.0 [facility] Nucleated RBC/100 WBC (Bld) [Ratio] 0 % 0-5 [facility] MCHC Auto (RBC) [Mass/Vol]Or dered By: Efrem Lock on 05-23-2023 MCHC (RBC) [Mass/Vol] 32.8 g/dL 32-36 [facility] No Panel InformationOrdered By: Efrem Lock on 05-23-2023 Bed Mix Venous Bld PCO2 at [facility] Temp 36.8 mmHg 41-51 [facility] Blood Gas Sample Site Not entered [facility] Blood Gas Specimen Type BETHANY [facility] Oxygen Delivery Device Room Air [facility] Venous Blood Base Excess -7 mmol/L -1.0-3.5 [facility] Estimated Creatinine Clearance Calc 68.61 ml/min [facility] Estimated GFR (MDRD) Amer 95 mL/min >60 [facility] Comment on above: GFR Calc Estimated GFR (MDRD) Non-Af Amer 79 mL/min >60 [facility] Comment on above: Non- GFR Calc Ethyl Alcohol Level 376.0 mg/dL [facility] Comment on above: Critical Result(s) C alled at: 02:34:01 05/23/2023 by: CHRISTINE Dominguez [employer]ODUCTION MACHINE OPERATOR. Results read back by same.The serum:whole blood ethanol ratio is approximately 1.14and varies slightly with hematocrit. Medical Alcohol reference interval and critical value innon-tolerant individuals; 50 - 100 Impairment 100 Intoxication 100 - 250 Severe Poisoning 250 - 400 Deep/possible fatal coma Troponin I High Sensitivity 5 pg/mL 3.0-54.0 [facility] Comment on above: Please Note: [place] t Units and Gender Specific Reference Ranges. For more information see Policy Stat Procedure [place] High Sensitivity Troponin (TNIH) and attachments. PO2 venousOrdered By: Efrem Lock on 05-23-2023 Oxygen (BldV) [Partial pressure] 58 mm[Hg] 25-40 [facility] Platelets bldOrdered By: David Lock on 05-23-2023 Platelets (Bld) [#/Vol] 317 10*3/uL 150-450 [facility] Serum or plasma acetone xin urement (mass/volume)Ordered By: Efrem Lock on 05-23-2023 Acetone [Mass/Vol] SMALL NEG [facility] Serum or plasma calcium xin urement (mass/volume)Ordered By: Efrem Lock on 05-23-2023 Calcium [Mass/Vol] 9.5 mg/dL 8.5-10.1 [facility] Serum or plasma creatinine m easurement (mass/volume)Ordered By: Efrem Lock on 05-23-2023 Creatinine [Mass/Vol] 0.88 mg/dL 0.55-1.02 [facility] Comment on above: The validity of the calculated GFR & GFRAA in patients over 70 years has not been determined. Clinical correlation is essential. Serum or plasma urea nitroge n measurement (mass/volume)Ordered By: Efrem Lock on 05-23-2023 Urea nitrogen [Mass/Vol] 8 mg/dL 7-18 [facility] Thin prep Papanicolaou smear with manual screeningOrdered By: Efrem Lock on 05-23-2023 Thin prep Papanicolaou smear with manual screening 14 5-15 [facility] Vital signsOrdered By: Alphonso Lock on 05-23-2023 Oxygen saturation in Blood 88 % 50-70 [facility] pH measurementOrdered By: Fifi Lock on 05-23-2023 pH (Unsp spec) 7.33 [pH] 7.32-7.42 [facility] Absolute lymphocyte counton 02-03-2022 Lymphocytes Auto (Unsp spec) [#/Vol] 2.05 10*3/uL 0.83-4.51 [facility] Work Phone: Basophil percentageon 2021 Chloride [Moles/Vol] 107 mmol/L 98-107 [facility] Work Phone: Glucose [Mass/Vol] 350 mg/dL 74-106 [facility] Work Phone: Comment on above: Glucose result great er than or equal to 200 mg/dLsuggests DIABETES MELLITUS per A.D.A. criteria. Potassium [Moles/Vol] 4.2 mmol/L 3.5-5.1 [facility] Work Phone: Sodium [Moles/Vol] 135 mmol/L 136-145 [facility] Work Phone: [phone] Basophils/100 WBC (Bld) 0.6 % 0-1 [facility] Work Phone: [phone] Eosinophils/100 WBC (Bld) 0.1 % 0-5 [facility] Work Phone: [phone] Neutrophils (Bld) [#/Vol] 6.1 10*3/uL 2.0-7.7 [facility] Work Phone: [phone] Neutrophils/100 WBC (Bld) 67.2 % 47-70 [facility] Work Phone: [phone] WBC (Bld) [#/Vol] 9.0 10*3/uL 4.4-11.0 [facility] Work Phone: [phone] Blood erythrocytes count (nu mber/volume)on 02-03-2022 RBC (Bld) [#/Vol] 3.83 10*6/uL 4.2-5.4 [facility] Work Phone: [phone] Blood hemoglobin measurement (mass/volume)on 02-03-2022 Hemoglobin (Bld) [Mass/Vol] 11.8 g/dL 12.0-15.0 [facility] Work Phone: [phone] Blood lymphocytes/100 leukoc yteson 02-03-2022 Lymphocytes/100 WBC (Bld) 22.7 % 19-41 [facility] Work Phone: Blood monocytes/100 leukocyt eson 02-03-2022 Monocytes/100 WBC (Bld) 9.0 % 0-10 [facility] Work Phone: Blood platelet mean volumeon 02-03-2022 Platelet mean volume (Bld) [Entitic vol] 9.5 fL 6.2-12.0 [facility] Work Phone: Determination of erythrocyte mean corpuscular volume (MCV)on 02-03-2022 MCV (RBC) [Entitic vol] 94.0 fL 81-99 [facility] Work Phone: Glucose Glucometer (BldC) [M ass/Vol]on 02-03-2022 Glucose [Mass/Vol] 279 mg/dL 74-106 [facility] Work Phone: Comment on above: MANAGEMENT OF PATIEN T CARE PER NURSING PROTOCOL Hematocrit Auto (Bld) [Volum e fraction]on 02-03-2022 Hematocrit (Bld) [Volume fraction] 36.0 % 37-47 [facility] Work Phone: Laboratory - Chemistry and C hemistry - challengeon 02-03-2022 CO2 [Moles/Vol] 21.0 mmol/L 21.0-32.0 [facility] Work Phone: Urea nitrogen/Creatinine [Mass ratio] 12.9 mg/mg 10-20 [facility] Work Phone: Laboratory - Hematology and Cell countson 02-03-2022 Erythrocyte distribution width (RBC) [Entitic vol] 49.1 fL 35.1-43.9 [facility] Work Phone: [phone] Erythrocyte distribution width (RBC) [Ratio] 14.2 % 11.6-14.6 [facility] Work Phone: [phone] Immature granulocytes/100 WBC (Bld) 0.400 % 0.0-0.9 [facility] Work Phone: [phone] Comment on above: IG% - Immature Granu locytes (promyelocytes, myelocytes and metamyelocytes) > 1% indicates that a LEFT SHIFT is Present. MCH (RBC) [Entitic mass] 30.8 pg 27.0-32.0 [facility] Work Phone: Nucleated RBC/100 WBC (Bld) [Ratio] 0 % 0-5 [facility] Work Phone: MCHC Auto (RBC) [Mass/Vol]on 02-03-2022 MCHC (RBC) [Mass/Vol] 32.8 g/dL 32-36 [facility] Work Phone: Comment on above: Delta: 31.0 on 02/02-0 No Panel Informationon 02-03 Estimated Creatinine Clearance Calc 65.53 ml/min [facility] Work Phone: Estimated GFR (MDRD) Amer 90 mL/min >60 [facility] Work Phone: Comment on above: GFR Calc Estimated GFR (MDRD) Non-Af Amer 74 mL/min >60 [facility] Work Phone: Comment on above: Non- GFR Calc Platelets bldon 02-03-2022 Platelets (Bld) [#/Vol] 278 10*3/uL 150-450 [facility] Work Phone: Serum or plasma calcium xin urement (mass/volume)on 02-03-2022 Calcium [Mass/Vol] 7.7 mg/dL 8.5-10.1 [facility] Work Phone: Serum or plasma creatinine m easurement (mass/volume)on 02-03-2022 Creatinine [Mass/Vol] 0.93 mg/dL 0.55-1.02 [facility] Work Phone: Comment on above: The validity of the calculated GFR & GFRAA in patients over 70 years has not been determined. Clinical correlation is essential. Serum or plasma urea nitroge n measurement (mass/volume)on 02-03-2022 Urea nitrogen [Mass/Vol] 12 mg/dL 7-18 [facility] Work Phone: Thin prep Papanicolaou smear with manual screeningon 02-03-2022 Thin prep Papanicolaou smear with manual screening 7 5-15 [facility] Work Phone: Whole blood hemoglobin A1c/t otal hemoglobin ratio (mass fraction)on 02-03-2022 HbA1c (Bld) [Mass fraction] 10.7 % 3.8-5.6 [facility] Work Phone: Comment on above: Normal < 5.7 % Predi abetic 5.7 - 6.4 % Diabetic >or= 6.5 % Please note range changes. Assessment of wrist artery p atency prior to arterial punctureon 02-02-2022 Arterial patency Wrist artery --pre arterial puncture Positive [facility] Work Phone: Base excesson 02-02-2022 Base excess Calc (BldV) [Moles/Vol] -23 mmol/L -2-2 [facility] Work Phone: Basophil percentageon 2021 Basophil percentage 6.1 mmol/L [facility] Work Phone: Basophils/100 WBC (Bld) 72 % 95-99 [facility] Work Phone: Basophil percentage 5.4 mg/dL 2.5-4.9 [facility] Work Phone: [phone] Bilirubin [Mass/Vol] 0.60 mg/dL 0.20-1.00 [facility] Work Phone: Comment on above: For patients on eltr ombopag therapy, use of Dimension [place] TBIL is not recommended. Protein [Mass/Vol] 8.9 g/dL 6.4-8.2 [facility] Work Phone: Basophil percentage 0-5 SEEN /hpf 0-5 [facility] Work Phone: Bilirubin Test strip Ql (U)o n 02-02-2022 Bilirubin Ql (U) Negative Negative [facility] Work Phone: CO2 (BldA) [Partial pressure ]on 02-02-2022 CO2 (Bld) [Partial pressure] 18.4 mm[Hg] 35-45 [facility] Work Phone: HCO3 (BldA) [Moles/Vol]on HCO3 (Bld) [Moles/Vol] 5 mmol/L [facility] Work Phone: Ketones Test strip Ql (U)on 02-02-2022 Ketones Ql (U) 150 mg/dl Negative [facility] Work Phone: Comment on above: CRITICAL VALUE *HCRI TICAL VALUE VERIFIED. CALLED TO DENZEL COUGHLIN02/02/222003 Adriano Galan.RESULTS READ BACK BY SAME . Laboratory - Chemistry and C hemistry - challengeon 02-02-2022 CO2 [Moles/Vol] 5 mmol/L 23-33 [facility] Work Phone: [phone] ALP [Catalytic activity/Vol] 122 U/L 45-117 [facility] Work Phone: [phone] ALT [Catalytic activity/Vol] 54 U/L 13-56 [facility] Work Phone: [phone] Globulin (S) [Mass/Vol] 4.7 g/dL 2.2-4.2 [facility] Work Phone: [phone] Magnesium [Mass/Vol] 2.3 mg/dL 1.6-2.6 [facility] Work Phone: [phone] Mucus LM Ql (Urine sed)on Mucus Ql (Urine sed) 0 SEEN /hpf [facility] Work Phone: [phone] Nitrite Test strip Ql (U)on 02-02-2022 Nitrite Ql (U) Negative Negative [facility] Work Phone: [phone] No Panel Informationon 02-02 Bld Gas Crit Called To/Read Back By Yes [facility] Work Phone: [phone] Blood Gas Sample Site L Radial [facility] Work Phone: [phone] Blood Gas Specimen Type ART [facility] Work Phone: [phone] Blood Gas Total CO2 7 mmol/L [facility] Work Phone: [phone] Bed Mix Venous Bld PCO2 at Pat Temp 18.7 mmHg 41-51 [facility] Work Phone: [phone] Blood Gas Notified Time 19:40:39 [facility] Work Phone: [phone] Blood Gas Notified Whom Reodica [facility] Work Phone: [phone] Oxygen Delivery Device Room Air [facility] Work Phone: [phone] Venous Blood Base Excess -26 mmol/L -1.0-3.5 [facility] Work Phone: Oxygen (BldA) [Partial press ure]on 02-02-2022 Oxygen (Bld) [Partial pressure] 48 mmHG 75-100 [facility] Work Phone: PO2 venouson 02-02-2022 Oxygen (BldV) [Partial pressure] 69 mm[Hg] 25-40 [facility] Work Phone: Protein Test strip Ql (U)on 02-02-2022 Protein Ql (U) 100 mg/dl Negative [facility] Work Phone: Serum or plasma acetone xin urement (mass/volume)on 02-02-2022 Acetone [Mass/Vol] MODERATE NEG [facility] Work Phone: Serum or plasma albumin xin urement (mass/volume)on 02-02-2022 Albumin [Mass/Vol] 4.2 g/dL 3.2-5.0 [facility] Work Phone: Serum or plasma albumin/glob ulin mass ratioon 02-02-2022 Albumin/Globulin [Mass ratio] 0.9 {ratio} 0.9-2.4 [facility] Work Phone: Squamous epithelial cells de tection in urine sediment by light microscopyon 02-02-2022 Epithelial cells.squamous LM Ql (Urine sed) 0-5 SEEN /hpf 5-10 [facility] Work Phone: Thin prep Papanicolaou smear with manual screeningon 02-02-2022 Thin prep Papanicolaou smear with manual screening 37 U/L 15-37 [facility] Work Phone: Urine blood detectionon 01-07 RBC Ql (U) 10 /ul Negative [facility] Work Phone: RBC Ql (U) 0-5 SEEN /hpf 0-5 [facility] Work Phone: Urine clarityon 02-02-2022 Clarity (U) Clear Clear [facility] Work Phone: Urine color determinationon 02-02-2022 Color (U) Yellow Yellow [facility] Work Phone: Urine glucose detectionon Glucose Ql (U) 1000 mg/dl Normal [facility] Work Phone: Urine leukocyte esterase det ection by dipstickon 02-02-2022 Leukocyte esterase Test strip Ql (U) Negative Negative [facility] Work Phone: Urine pHon 02-02-2022 pH (U) 5.0 [pH] 5.0 - 8.0 [facility] Work Phone: Urine sediment bacteria coun t by microscopy (number/high power field)on 02-02-2022 Bacteria LM.HPF (Urine sed) [#/Area] 1 /[HPF] None Seen [facility] Work Phone: Urine specific gravity measu rementon 02-02-2022 Specific gravity (U) [Rel density] 1.030 1.002-1.030 [facility] Work Phone: Urobilinogen Auto test strip Ql (U)on 02-02-2022 Urobilinogen Ql (U) Normal mg/dl Normal [facility] Work Phone: Vital signson 02-02-2022 Oxygen saturation in Blood 83 % 50-70 [facility] Work Phone: pH measurementon 02-02-2022 pH (Unsp spec) 7.13 [pH] 7.35-7.45 [facility] Work Phone: pH (Unsp spec) 7.01 [pH] 7.32-7.42 [facility] Work Phone: Vital Signs Date Time Vital Sign Value Performing Clinician Dallini stephanie 09-28-2024 10:00-0400 Diastolic blood pressure 96 mm[Hg] Dr. Meena Flowers DO Work Phone: [facility] 09-28-2024 10:00-0400 Heart rate 98 /min Dr. Meena Flowers DO Work Phone: [facility] 09-28-2024 10:00-0400 Respiratory rate 18 /min Dr. Meena Flowers DO Work Phone: [facility] 09-28-2024 10:00-0400 SaO2% (BldA) [Mass fraction] 100 % Dr. Meena Flowers DO Work Phone: [facility] 09-28-2024 10:00-0400 Systolic blood pressure 150 mm[Hg] Dr. Meena Flowers DO Work Phone: [facility] 09-28-2024 08:00-0400 Body temperature 97.8 [degF] Dr. Meena Flowers DO Work Phone: [facility] 09-28-2024 05:44-0400 Body mass index (BMI) [Ratio] 29.3 kg/m2 Dr. Meena Flowers DO Work Phone: [facility] 09-28-2024 05:44-0400 Body weight 70.[address] Meena Flowers DO Work Phone: [facility] 09-26-2024 13:32-0400 Body height 154.[address] Meena Flowers DO Work Phone: [facility] 09-26-2024 12:19-0400 Body temperature 98.1 [degF] Dr. Meena Flowers DO Work Phone: [facility] 09-26-2024 12:19-0400 Diastolic blood pressure 78 mm[Hg] Dr. Meena Flowers DO Work Phone: [facility] 09-26-2024 12:19-0400 Heart rate 122 /min Dr. Meena Flowers DO Work Phone: [facility] 09-26-2024 12:19-0400 Respiratory rate 23 /min Dr. Meena Flowers DO Work Phone: [facility] 09-26-2024 12:19-0400 SaO2% (BldA) [Mass fraction] 98 % Dr. Meena Flowers DO Work Phone: [facility] 09-26-2024 12:19-0400 Systolic blood pressure 131 mm[Hg] Dr. Meena Folwers DO Work Phone: [facility] 09-26-2024 09:28-0400 Body height 154.[address] Meena Flowers DO Work Phone: [facility] 09-26-2024 09:28-0400 Body mass index (BMI) [Ratio] 28.5 kg/m2 Dr. Meena Flowers DO Work Phone: [facility] 09-26-2024 09:28-0400 Body weight 68.[address] Meena Flowers DO Work Phone: [facility] 09-24-2023 14:26-0400 Body temperature 97 [degF] [facility] 09-24-2023 14:26-0400 Diastolic blood pressure 85 mm[Hg] [facility] 09-24-2023 14:26-0400 Heart rate 79 /min [facility] 09-24-2023 14:26-0400 Respiratory rate 16 /min [facility] 09-24-2023 14:26-0400 SaO2% (BldA) [Mass fraction] 99 % [facility] 09-24-2023 14:26-0400 Systolic blood pressure 123 mm[Hg] [facility] 09-24-2023 12:26-0400 Body height 154.94 cm [facility] 09-24-2023 12:26-0400 Body mass index (BMI) [Ratio] 29.9 kg/m2 [facility] 09-24-2023 12:26-0400 Body weight 71.93 kg [facility] 06-05-2023 14:18-0500 Body temperature 98.2 [degF] Dr. Meena Flowers Work Phone: [facility] 06-05-2023 14:18-0500 Heart rate 72 /min Dr. Meena Flowers Work Phone: [facility] 06-05-2023 14:18-0500 Respiratory rate 14 /min Dr. Meena Flowers Work Phone: [facility] 06-05-2023 12:53-0500 Body mass index (BMI) [Ratio] 31.9 kg/m2 Dr. Meena Flowers Work Phone: [facility] 06-05-2023 12:53-0500 Body weight 76.[address] Meena Flowers Work Phone: [facility] 06-05-2023 12:35-0500 Body height 154.[address] Meena Flowers Work Phone: [facility] 06-05-2023 12:35-0500 Diastolic blood pressure 96 mm[Hg] Dr. Meena Flowers Work Phone: [facility] 06-05-2023 12:35-0500 SaO2% (BldA) [Mass fraction] 100 % Dr. Meena Flowers Work Phone: [facility] 06-05-2023 12:35-0500 Systolic blood pressure 139 mm[Hg] Dr. Meena Flowers Work Phone: [facility] 05-26-2023 12:00-0500 Body temperature 98 [degF] Dr. Meena Flowers Work Phone: [facility] 05-26-2023 12:00-0500 Diastolic blood pressure 96 mm[Hg] Dr. Meena Flowers Work Phone: [facility] 05-26-2023 12:00-0500 Heart rate 110 /min Dr. Meena Flowers Work Phone: [facility] 05-26-2023 12:00-0500 Respiratory rate 20 /min Dr. Meena Flowers Work Phone: [facility] 05-26-2023 12:00-0500 SaO2% (BldA) [Mass fraction] 98 % Dr. Meena Flowers Work Phone: [facility] 05-26-2023 12:00-0500 Systolic blood pressure 125 mm[Hg] Dr. Meena Flowers Work Phone: [facility] 05-26-2023 09:35-0500 Body height 154.[address] Meena Flowers Work Phone: [facility] 05-26-2023 09:35-0500 Body weight 75.[address] Meena Flowers Work Phone: [facility] 05-26-2023 05:20-0500 Body mass index (BMI) [Ratio] 31.5 kg/m2 Dr. Meena Flowers Work Phone: [facility] 05-25-2023 20:23-0500 Diastolic blood pressure 81 mm[Hg] [facility] 05-25-2023 20:23-0500 Heart rate 92 /min [facility] 05-25-2023 20:23-0500 Respiratory rate 14 /min [facility] 05-25-2023 20:23-0500 SaO2% (BldA) [Mass fraction] 98 % [facility] 05-25-2023 20:23-0500 Systolic blood pressure 124 mm[Hg] [facility] 05-25-2023 16:43-0500 Body height 154.94 cm [facility] 05-25-2023 16:43-0500 Body mass index (BMI) [Ratio] 31.6 kg/m2 [facility] 05-25-2023 16:43-0500 Body temperature 97.3 [degF] [facility] 05-25-2023 16:43-0500 Body weight 75.97 kg [facility] 05-23-2023 03:27-0500 Diastolic blood pressure 88 mm[Hg] [facility] 05-23-2023 03:27-0500 Heart rate 72 /min [facility] 05-23-2023 03:27-0500 Respiratory rate 16 /min [facility] 05-23-2023 03:27-0500 SaO2% (BldA) [Mass fraction] 98 % [facility] 05-23-2023 03:27-0500 Systolic blood pressure 139 mm[Hg] [facility] 05-23-2023 00:53-0500 Body height 154.94 cm [facility] 05-23-2023 00:53-0500 Body mass index (BMI) [Ratio] 31.9 kg/m2 [facility] 05-23-2023 00:53-0500 Body temperature 97.1 [degF] [facility] 05-23-2023 00:53-0500 Body weight 76.7 kg [facility] 02-03-2022 15:32-0400 Body temperature 96.3 [degF] [facility] Work Phone: 02-03-2022 15:32-0400 Diastolic blood pressure 77 mm[Hg] [facility] Work Phone: 02-03-2022 15:32-0400 Heart rate 95 /min [facility] Work Phone: 02-03-2022 15:32-0400 Respiratory rate 17 /min [facility] Work Phone: 02-03-2022 15:32-0400 SaO2% (BldA) [Mass fraction] 99 % [facility] Work Phone: 02-03-2022 15:32-0400 Systolic blood pressure 115 mm[Hg] [facility] Work Phone: 02-03-2022 09:13-0400 Body height 154.94 cm [facility] Work Phone: 02-03-2022 09:13-0400 Body weight 72.7 kg [facility] Work Phone: 02-02-2022 21:05-0400 Body mass index (BMI) [Ratio] 29.5 kg/m2 [facility] Work Phone: Encounters Encounter Date Encounter Type Care Provider Facility Start: 09-28-2024 Non-patient / Non-visit Dr. Dian Galan MD -[facility] Work Phone: Start: 09-27-2024 Non-patient / Non-visit Dr. Reny Julien MD -[facility] Work Phone: Start: 09-26-2024 ambulatory Meenairina Flowers Facility:[facility] Start: 09-26-2024 End: 09-28-2024 Evaluation and management of inpatient Dr. Maggie Reed MD -Intensive Care Unit Work Phone: Start: 04-04-2024 ambulatory Bryce Julien Fac ility:[facility] Start: 04-04-2024 End: 04-05-2024 Evaluation and management of inpatient Meenairina Flowers Facility:[facility] Start: 09-24-2023 End: 09-24-2023 Emergency department patient visit [facility] Work Phone: Start: 06-05-2023 End: 06-05-2023 Emergency department patient visit Dr. Meena Flowers Work Phone: [facility] Work Phone: Start: 05-26-2023 Non-patient / Non-visit Dr. Letitia Flowers Work Phone: [facility] Work Phone: Start: 05-25-2023 Non-patient / Non-visit Dr. Letitia Flowers Work Phone: [facility] Work Phone: Start: 05-25-2023 End: 05-26-2023 Evaluation and management of inpatient [facility] Work Phone: Start: 05-23-2023 Registered Referred [facility] Work Phone: Start: 05-23-2023 End: 05-23-2023 Emergency department patient visit [facility] Work Phone: Start: 02-03-2022 [facility] Start: 02-02-2022 Non-patient / [facility] Start: 02-02-2022 End: 02-03-2022 Evaluation and management of inpatient [facility]Int[facility] Care [facility] Procedures Date Procedure Procedure Detail Performing Clinician Start: 09-26-2024 Plain chest X-ray Dr. Andreas Flowers DO Work Phone: Start: 05-25-2023 Plain chest X-ray Start: 05-23-2023 CT cervical spine wi thout contrast Start: 05-23-2023 CT of head without contrast Start: 05-23-2023 Plain chest X-ray Start: 05-23-2023 Radiologic examinati on of knee Plan of Treatment Date Care Activity Detail Author Start: 09-29-2024 [facility] Start: 09-28-2024 Patient discharge [facility] Start: 09-28-2024 End: 09-29-2024 [facility] Start: 09-28-2024 Care regimes management [facility] Start: 09-28-2024 Notification of physician [facility] Start: 09-28-2024 End: 09-28-2024 [facility] Start: 09-28-2024 Care regimes management [facility] Start: 09-28-2024 Notification of physician [facility] Start: 09-27-2024 Urine culture Urine Culture [facility] Start: 09-27-2024 [facility] Start: 09-27-2024 End: 09-27-2024 [facility] Start: 09-26-2024 [facility] Start: 09-26-2024 Assessment of risk o f venous thromboembolism [facility] Start: 09-26-2024 Continuous pulse oximetry [facility] Start: 09-26-2024 End: 09-26-2024 Following clinical pathway protocol [facility] Start: 09-26-2024 Insertion of cathete r into peripheral vein [facility] Start: 09-26-2024 Lab findings surveillance [facility] Start: 09-26-2024 Measuring intake and output [facility] Start: 09-26-2024 Notification of physician [facility] Start: 09-26-2024 Patient education [facility] Start: 09-26-2024 Patient referral to dietitian [facility] Start: 09-26-2024 Providing care accor ding to standard [facility] Start: 09-26-2024 Referral to occupati onal therapist [facility] Start: 09-26-2024 Referral [facility] service [facility] Start: 09-26-2024 Vital signs measurements [facility] Start: 09-26-2024 [facility] Start: 09-26-2024 Hospital admission, emergency, from emergency room, medical nature [facility] Start: 09-26-2024 Verification routine [facility] Start: 09-26-2024 Admission procedure [facility] Start: 09-26-2024 End: 09-27-2024 [facility] Start: 09-24-2023 Blood chemistry [facility] Start: 09-24-2023 [facility] Start: 06-05-2023 [facility] Start: 06-05-2023 Simple repair scalp/neck/ax/genit/trunk 2.5cm/< RPR S/N/AX/GEN/TRNK 2.5CM/< [facility] Start: 05-26-2023 Blood chemistry [facility] Start: 05-26-2023 Blood chemistry [facility] Start: 05-26-2023 Patient discharge [facility] Start: 05-26-2023 Blood chemistry [facility] Start: 05-26-2023 Care regimes management [facility] Start: 05-26-2023 Notification of physician [facility] Start: 05-26-2023 [facility] Start: 05-26-2023 Blood chemistry [facility] Start: 05-26-2023 [facility] Start: 05-26-2023 Blood chemistry [facility] Start: 05-26-2023 [facility] Start: 05-26-2023 Blood chemistry [facility] Start: 05-25-2023 Assessment of risk o f venous thromboembolism [facility] Start: 05-25-2023 Continuous pulse oximetry [facility] Start: 05-25-2023 End: 05-25-2023 Following clinical pathway protocol [facility] Start: 05-25-2023 Insertion of cathete r into peripheral vein [facility] Start: 05-25-2023 Lab findings surveillance [facility] Start: 05-25-2023 Measuring intake and output [facility] Start: 05-25-2023 Notification of physician [facility] Start: 05-25-2023 Oxygen therapy [facility] Start: 05-25-2023 Patient education [facility] Start: 05-25-2023 Patient referral to dietitian [facility] Start: 05-25-2023 Providing care accor ding to standard [facility] Start: 05-25-2023 Vital signs measurements [facility] Start: 05-25-2023 [facility] Start: 05-25-2023 Blood chemistry [facility] Start: 05-25-2023 Verification routine [facility] Start: 05-25-2023 Admission procedure [facility] Start: 05-23-2023 [facility] Start: 05-23-2023 Blood chemistry [facility] Start: 05-23-2023 End: 05-23-2023 [facility] Start: 02-03-2022 Patient discharge [facility] Work Phone: Start: 02-02-2022 Application of inter mittent pneumatic compression device [facility] Work Phone: Start: 02-02-2022 Assessment of risk o f venous thromboembolism [facility] Work Phone: Start: 02-02-2022 Consultation [facility] Work Phone: Start: 02-02-2022 Continuous pulse oximetry [facility] Work Phone: Start: 02-02-2022 End: 02-02-2022 Following clinical pathway protocol [facility] Work Phone: Start: 02-02-2022 Incentive spirometry [facility] Work Phone: Start: 02-02-2022 Inhalation therapy procedure [facility] Work Phone: Start: 02-02-2022 Insertion of cathete r into peripheral vein [facility] Work Phone: Start: 02-02-2022 Introduction of urin mar catheter [facility] Work Phone: Start: 02-02-2022 Lab findings surveillance [facility] Work Phone: Start: 02-02-2022 Measuring intake and output [facility] Work Phone: Start: 02-02-2022 Notification of physician [facility] Work Phone: Start: 02-02-2022 Oxygen therapy [facility] Work Phone: Start: 02-02-2022 Patient education [facility] Work Phone: Start: 02-02-2022 Patient referral to dietitian [facility] Work Phone: Start: 02-02-2022 Providing care accor ding to standard [facility] Work Phone: Start: 02-02-2022 Provision of activit y privileges [facility] Work Phone: Start: 02-02-2022 Referral to service [facility] Work Phone: Start: 02-02-2022 Tobacco use cessatio n education [facility] Work Phone: Start: 02-02-2022 Vital signs measurements [facility] Work Phone: Start: 02-02-2022 [facility] Work Phone: Start: 02-02-2022 Admission procedure [facility] Work Phone: Start: 02-02-2022 Patient referral to dietitian [facility] Work Phone: Anion gap measurement [facility] Anion gap measurement [facility] Anion gap measurement [facility] Anion gap measurement [facility] An[facility] gap measurement [facility] Anion gap measurement [facility] Anion gap measurement [facility] Anion gap measurement [facility] B[facility]/Creatinine [facility] BUN/Creatinine ratio [facility] Calcium [Mass/volume ] in Serum or Plasma [facility] Calcium [Mass/volume ] in Serum or Plasma [facility] Calcium [Mass/volume ] in Serum or Plasma [facility] Calcium [Mass/volume ] in Serum or Plasma [facility] Calcium [Mass/volume ] in Serum or Plasma [facility] Calcium [Mass/volume ] in Serum or Plasma [facility] Calcium [Mass/volume ] in Serum or Plasma [facility] Calcium [Mass/volume ] in Serum or Plasma [facility] Carbon dioxide, tota l [Moles/volume] in Serum or Plasma [facility] Carbon dioxide, tota l [Moles/volume] in Serum or Plasma [facility] Carbon dioxide, tota l [Moles/volume] in Serum or Plasma [facility] Carbon dioxide, tota l [Moles/volume] in Serum or Plasma [facility] Carbon dioxide, tota l [Moles/volume] in Serum or Plasma [facility] Carbon dioxide, tota l [Moles/volume] in Serum or Plasma [facility] Carbon dioxide, tota l [Moles/volume] in Serum or Plasma [facility] Carbon dioxide, tota l [Moles/volume] in Serum or Plasma [facility] Chloride [Moles/volu me] in Serum or Plasma [facility] Chloride [Moles/volu me] in Serum or Plasma [facility] Chloride [Moles/volu me] in Serum or Plasma [facility] Chloride [Moles/volu me] in Serum or Plasma [facility] Chloride [Moles/volu me] in Serum or Plasma [facility] Chloride [Moles/volu me] in Serum or Plasma [facility] Chloride [Moles/volu me] in Serum or Plasma [facility] Chloride [Moles/volu me] in Serum or Plasma [facility] Creatinine [Moles/vo lume] in Serum or Plasma [facility] Creatinine [Moles/vo lume] in Serum or Plasma [facility] Creatinine [Moles/vo lume] in Serum or Plasma [facility] Creatinine [Moles/vo lume] in Serum or Plasma [facility] Creatinine [Moles/vo lume] in Serum or Plasma [facility] Creatinine [Moles/vo lume] in Serum or Plasma [facility] Creatinine [Moles/vo lume] in Serum or Plasma [facility] Creatinine [Moles/vo lume] in Serum or Plasma [facility] Glucose [Mass/volume ] in Serum or Plasma [facility] Glucose [Mass/volume ] in Serum or Plasma [facility] Glucose [Mass/volume ] in Serum or Plasma [facility] Glucose [Mass/volume ] in Serum or Plasma [facility] Glucose [Mass/volume ] in Serum or Plasma [facility] Glucose [Mass/volume ] in Serum or Plasma [facility] Glucose [Mass/volume ] in Serum or Plasma [facility] Glucose [Mass/volume ] in Serum or Plasma [facility] Hematocrit [Volume F raction] of Blood [facility] Hemoglobin [Mass/vol ume] in Blood [facility] Hemoglobin A1c/Hemoglobin.total in Blood [facility] Leukocytes [#/volume ] in Blood [facility] Magnesium [Mass/volu me] in Serum or Plasma [facility] Mean corpuscular hem oglobin concentration determination [facility] Mean corpuscular hem oglobin determination [facility] Measurement of renal function [facility] Measurement of renal function [facility] Measurement of renal function [facility] Measurement of renal function [facility] Measurement of renal function [facility] Measurement of renal function [facility] Measurement of renal function [facility] Measurement of renal function [facility] Neutrophil count [facility] Neutrophil percent differential count [facility] Patient Education [facility] Work Phone: Patient referral [facility] Work Phone: Platelets [#/volume] in Blood [facility] Potassium [Moles/vol ume] in Serum or Plasma [facility] Potassium [Moles/vol ume] in Serum or Plasma [facility] Potassium [Moles/vol ume] in Serum or Plasma [facility] Potassium [Moles/vol ume] in Serum or Plasma [facility] Potassium [Moles/vol ume] in Serum or Plasma [facility] Potassium [Moles/vol ume] in Serum or Plasma [facility] Potassium [Moles/vol ume] in Serum or Plasma [facility] Potassium [Moles/vol ume] in Serum or Plasma [facility] Red blood cell count [facility] Red cell distributio n width determination [facility] Sodium [Moles/volume ] in Serum or Plasma [facility] Sodium [Moles/volume ] in Serum or Plasma [facility] Sodium [Moles/volume ] in Serum or Plasma [facility] Sodium [Moles/volume ] in Serum or Plasma [facility] Sodium [Moles/volume ] in Serum or Plasma [facility] Sodium [Moles/volume ] in Serum or Plasma [facility] Sodium [Moles/volume ] in Serum or Plasma [facility] Sodium [Moles/volume ] in Serum or Plasma [facility] Urea nitrogen [Mass/ volume] in Serum or Plasma [facility] Urea nitrogen [Mass/ volume] in Serum or Plasma [facility] Urea nitrogen [Mass/ volume] in Serum or Plasma [facility] Urea nitrogen [Mass/ volume] in Serum or Plasma [facility] Urea nitrogen [Mass/ volume] in Serum or Plasma [facility] Urea nitrogen [Mass/ volume] in Serum or Plasma [facility] Urea nitrogen [Mass/ volume] in Serum or Plasma [facility] Urea nitrogen [Mass/ volume] in Serum or Plasma [facility] Payers Date Payer Category Payer Self-pay [id number] 2014 Unknown [id number] Private Health Insurance [id number] Unknown [id number] [id number] Unknown [id number] [id number] Unknown [id number] Unknown [id number] [id number] [id number] Unknown [id number] [id number] [id number] Unknown [id number] [id number] [id number] Unknown [id number] Social History Date Type Detail Facility [facility] Work Phone: Start: 02-02-2022 End: 09-24-2023 Tobacco smoking status [facility] Unknown if ever smoked [facility] Start: 11-16-2020 Cigarettes [facility] Start: 1990 Sex Assigned At Female [facility] Start: 09-26-2024 End: 09-28-2024 Tobacco smoking status [facility] Current Light tobacco smoker [facility] Start: 09-26-2024 End: 09-28-2024 Sex Female (finding) [facility] NEGATED: Highlighted row [facility] NEGATED: Highlighted row Not [facility] Goals Date Patient Goal Desired Activity /State Functional Status Date Assessment Result Facility 09-28-2024 Functional status Bathroom Privilege [facility] Work Phone: 05-26-2023 Functional status Ambulates [facility] Work Phone: 02-03-2022 Functional status Dangle Feet;Chair [facility] Work Phone: Mental Status Date Assessment Result Facility 09-28-2024 Cognitive function Voice/Name [facility] Work Phone: 09-26-2024 Cognitive function Level Of Cons ciousness Awake;Alert;Appropriate;Follow s Commands [facility] Work Phone: 09-24-2023 Cognitive function Level Of Cons ciousness Awake;Alert;Appropriate;Follow s Commands [facility] Work Phone: 05-25-2023 Cognitive function Level Of Cons ciousness Awake;Alert;Appropriate;Follow s Commands [facility] Work Phone: 02-03-2022 Cognitive function Appropriate [facility] Work Phone: Clinical Notes 05-26-2023 to 09-28-2024 Note Date & Type Note Facility 09-28-2024 Note [facility] Medical Records Department [address] [place] [address] Discharge Summary 09/28/24 1310 MR#: [id number] Acct: [id number] Name: BRETT BOBBY Rep #: [id number] : 1990 33 From: Bryce Julien MD PCP: Dr. Meena Flowers DO Status:DIS IN Location: ICU [id number] Providers Date of Admission: 09/26/24 Primary Care [...] in the ED were BP of 116/78, HI of 121, RR of 16 and temp [...] Calcium 7.8 09/07 (more content not included)... [facility] 09-28-2024 Discharge summary Note Date/Time September 28, 2024 9:19am [facility] Medical Records Department [address] [place] [address] Instructions for Home/Discharge Instructions 09/28/24 0900 MR#: [id number] Acct: [id number] Name: BRETT BOBBY Rep #:[id number] : 1990 33 From: Bryce vega MD [...] Julien MD>Bryce Julien MD CC: Dr. Meena Flowesr DO; Dr. Maggie Reed MD ~ Signed [facility] Work Phone: 1(560) 694-508503-23-2025 Discharge summary [facility] Medical Records Department [address] [place] [address] Instructions for Home/Discharge Instructions 09/28/24 0900 MR#: [id number] Acct: [id number] Name: BRETT BOBBY Rep #:[id number] : 1990 33 From: Bryce vega MD [...] DO; Dr. Maggie Reed MD ~ Signed [facility]03-23-2025 Progress note Author [facility] Note Date/Time September 28, 2024 1:0 6am [facility] Medical Records Department [address] [place] [address] Progress Note - Hospitalist 09/28/24104 MR#: [id number] Acct: [id number] Name: BRETT BOBBY Rep #:[id number] : 1990 33 From: Dian Galan MD [...] Cosigner Signature (if applicable): CC: ~ Signed [facility] Work Phone: 1(831) 519-109903-23-2025 Progress note [facility] Medical Records Department [address] [place] [address] Progress Note - Hospitalist 09/28/24104 MR#: [id number] Acct: [id number] Name: BRETT BOBBY Rep #:[id number] : 1990 33 From: Dian Galan MD PCP: Dr. Meena Flowers, DO Status:ADM IN Location: ICU [id number] 2-1 Hospitalist Note Patient with AG closed x 2, episodes of symptomatic hypoglycemia now, will d/c drip, allow ADA diet, change to accu checks w/ ISS, restart longacting in AM since hypoglycemia present if appropriate. 09/28/24105 Cosigner Signature (if applicable): CC: ~ Signed [facility]03-22-2025 Progress note Author Bryce Julien [facility] Note Date/Time September 27, 2024 11: 47am [facility] Medical Records Department [address] [place] [address] Progress Note - Hospitalist 09/27/24 1143 MR#: [id number] Acct: [id number] Name: BRETT BOBBY Rep #:[id number] : 1990 33 From: Bryce vega MD [...] % (Auto) Cancelled, Lymph % (Auto) Cancelled, [place] % (Auto) Cancelled, Eos % (Auto) Cancelled, [...] Drop Cells Cancelled, Ovalocytes Cancelled, Stomatocytes Cancelled, [place] Bodies Cancelled, Radha Cells Cancelled, Bite Cells [...] (Auto) 71.7 H, Lymph % (Auto) 17.3L, [place] % (Auto) 9.7, Eos % (Auto) 0.4, [...] DVT: lovenox Charges/Coding Visit Charges Inpatient E&M: 72296 Subs Hosp L2 09/27/24 1140 <Electronically signed by Bryce Julien MD> Cosigner Signature (if applicable): CC: ~ Signed [facility] Work Phone: 1(482) 744-298603-22-2025 Progress note [facility] Medical Records Department [address] [place] [address] Progress Note - Hospitalist 09/27/24 1143 MR#: [id number] Acct: [id number] Name: BRETT BOBBY Rep #:[id number] : 1990 33 From: Bryce vega MD [...] % (Auto) Cancelled, Lymph % (Auto) Cancelled, [place] % (Auto) Cancelled, Eos % (Auto) Cancelled, [...] Drop Cells Cancelled, Ovalocytes Cancelled, Stomatocytes Cancelled, [place] Bodies Cancelled, Radha Cells Cancelled, Bite Cells [...] (Auto) 71.7 H, Lymph % (Auto) 17.3L, [place] % (Auto) 9.7, Eos % (Auto) 0.4, [...] DVT: lovenox Charges/Coding Visit Charges Inpatient E&M: 02931 Subs Hosp L2 09/27/24 1147 Cosigner Signature (if applicable): CC: ~ Signed [facility]03-21-2025 Discharge summary Author Aba Murguia [facility] Note Date/Time September 26, 2024 4:3 4pm [facility] Medical Records Department [address] [place] [address] Emergency Department Summary 09/26/24 MR#: [id number] Acct: [id number] Name: BRETT BOBBY Rep #:[id number] : 1990 33 From: Aba Murguia MD [...] andis back to normal and feels fine. [facility] Medical History Tobacco abuse Stage 3a chronic [...] (Auto) 68.9 Lymph % (Auto) 13.3 L [place] % (Auto) 4.4 Eos % (Auto) 12.0 [...] Color Urine Clarity Urine pH Ur Specific [place] Urine Protein Urine Glucose (UA) Urine Ketones [...] (Auto) Neut % (Auto) Lymph % (Auto) [place] % (Auto) Eos % (Auto) Baso % (Auto) Absolute Neuts (auto) Absolute Lymphs (auto) Nucleated RBC % Platelet Estimate Sodium Potassium Chloride Cancelled Carbon Dioxide 5.7 L* Cancelled Anion Gap 35 H Cancelled BUN 10 Creatinine Estim Creat Clear Calc Est GFR (MDRD) Non-Af BUN/Creatinine Ratio Glucose Calcium b-Hydroxybutyric mmol/L Urine Color Urine Clarity Urine pH Ur Specific [place] Urine Protein Urine Glucose (UA) Urine Ketones [...] (Auto) Neut % (Auto) Lymph % (Auto) [place] % (Auto) Eos % (Auto) Baso % (Auto) Absolute Neuts (auto) Absolute Lymphs (auto) Nucleated RBC % Platelet Estimate Sodium Potassium Chloride Carbon Dioxide Anion Gap BUN Cancelled Creatinine 0.84 Cancelled Estim Creat Clear Calc 83.54 Cancelled Est GFR (MDRD) Non-Af 93 BUN/Creatinine Ratio Glucose Calcium b-Hydroxybutyric mmol/L Urine Color Urine Clarity Urine pH Ur Specific [place] Urine Protein Urine Glucose (UA) Urine Ketones [...] (Auto) Neut % (Auto) Lymph % (Auto) [place] % (Auto) Eos % (Auto) Baso % (Auto) Absolute Neuts (auto) Absolute Lymphs (auto) Nucleated RBC % Platelet Estimate Sodium Potassium Chloride Carbon Dioxide Anion Gap BUN Creatinine Estim Creat Clear Calc Est GFR (MDRD) Non-Af Cancelled BUN/Creatinine Ratio 12.0 Cancelled Glucose 339 H Cancelled Calcium 9.3 b-Hydroxybutyric mmol/L Urine Color Urine Clarity Urine pH Ur Specific [place] Urine Protein Urine Glucose (UA) Urine Ketones [...] (Auto) Neut % (Auto) Lymph % (Auto) [place] % (Auto) Eos % (Auto) Baso % (Auto) Absolute Neuts (auto) Absolute Lymphs (auto) Nucleated RBC % Platelet Estimate Sodium Potassium Chloride Carbon Dioxide Anion Gap BUN Creatinine Estim Creat Clear Calc Est GFR (MDRD) Non-Af BUN/Creatinine Ratio Glucose Calcium Cancelled b-Hydroxybutyric mmol/L 9.5 Urine Color Yellow Urine Clarity Clear Urine pH 5.0 Ur Specific [place] 1.030 Urine Protein 100 H Urine Glucose [...] No visible acute cardiopulmonary findings Reading Location: [id number] Rhythm Strip Rhythm Strip: Sinus Tach Rate: 112 Ectopy: None EKG Initial EKG: Attestation: I personally reviewed and interpreted this EKG as follows: Interpretation: No Acute Injury Pattern, Sinus Tachycardia and Non-Specific ST Changes Management Discussion w/another healthcare provider: Hospitalist Critical Care Time Critical Care Time: Yes Critical care time (excluding procedures): 30-74 minutes (32 min), Including time spent:, Discussing w/Patient &/or Family/Superintendent Transmission, Discussing w/Consultants, Arranging Admission or Transfer and Performing Direct Patient Care at Bedside Discharge Plan Dx/Rx/DC Orders Clinical Impression: DKA (diabetic ketoacidosis) Disposition Disposition: Acute Care Hospital [facility] Discharge Date/Time: 09/26/24 12:19 What to do if you have Problems For any increased pain, shortness of breath, bleeding, nausea or vomiting, chestpain, or any unexpected problems, contact your Primary Care Provider. Call [facility] ([phone]) or report to the closest Emergency Room. Call 911 if necessary. 09/26/24 1634 <Electronically signed by Aba Murguia MD> Cosigner Signature (if applicable): CC: Dr. Meena Flowers, DO ~ Signed [facility] Work Phone: 1(156) 838-793303-21-2025 Consult note Author Dino Hernandez [facility] Note Date/Time September 26, 2024 4:0 8pm [facility] Medical Records Department [address] [place] [address] Consultation - Perinatology Physician 09/26/24 1602 MR#: [id number] Acct: [id number] Name: BRETT BOBBY Rep #:[id number] : 1990 33 From: Dino Hernandez MD [...] rx. No documented SLG2i rx. [facility] Medical History Tobacco abuse Stage 3a chronic [...] Enoxaparin 40 Mg/0.4 Ml Syringe SC DAILY [facility] Dextrose 250 mls @ 999 mls/hr 09/26/24 12:38 Dextrose 10%-Water IV .Q16M PRN Hypoglycemic Protocol Protocol Insulin Human Lispro 100 unit/ 100 mls @ 6.849 mls/hr 09/26/24 12:38 Sodium Chloride CONT INF .[id number] [facility] Protocol Dextrose/Sodium Chloride 1,000 mls @ 150 mls/hr 09/26/24 15:15 09/26/24 15:19 IV 150 mls/hr .Q6H40M [facility] Administration Ceftriaxone Sodium 1 gm in 50 mls @ 100 mls/hr 09/26/24 15:55 Rocephin IV Q24 [facility] Insulin Glargine 24 unit 09/26/24 15:27 Insulin Glargine-Yfgn 100 Unit/Ml Pen SC DAILY [facility] Ondansetron HCl 4 mg 09/26/24 12:38 Ondansetron [...] (Auto) 68.9, Lymph % (Auto) 13.3 L, [place] % (Auto) 4.4, Eos % (Auto) 12.0 [...] Clarity Clear, Urine pH 5.0, Ur Specific [place] 1.030, Urine Protein 100 H, Urine Glucose [...] No visible acute cardiopulmonary findings Reading Location: [facility] Assessment and Plan . Assessment and [...] this encounter was done via Telemedicine 09/26/24 8459 <Electronically signed by Dino Hernandez MD> Cosigner Signature (if applicable): CC: Dr. Meena Flowers DO~ Signed [facility] Work Phone: 1(336) 263-774003-21-2025 History and physical note [facility] Note Date/Time September 26, 2024 3:5 7pm [facility] Medical Records Department [address] [place] [address] History & Physical Exam 09/26/24 1049 MR#: [id number] Acct: [id number] Name: BRETT BOBBY Rep #:[id number] : 1990 33 From: Maggie Reed MD [...] in the ED were BP of 116/78, HI of 121, RR of 16 and temp [...] for DKA and probable UTI [facility] Medical History Tobacco abuse Stage 3a chronic [...] no sensory deficits noted Coordination / Balance: rsoxnj-wa-gwif test normal Motor Exam: general weakness Psych [...] Clarity Clear, Urine pH 5.0, Ur Specific [place] 1.030, Urine Protein 100 H, Urine Glucose [...] prophylaxis: lovenox Charges/Coding Visit Charges Inpatient E&M: 39646 Init Hosp L3 09/26/24 6173 <Electronically signed by Maggie Reed MD> Cosigner Signature (if applicable): CC: Dr. Meena Flowers DO; Dr. Maggie Reed MD~ Signed [facility] Work Phone: 1(115) 566-994103-21-2025 Discharge summary [facility] Medical Records Department [address] [place] [address] Emergency Department Summary 09/26/24 MR#: [id number] Acct: [id number] Name: BRETT BOBBY Rep #:[id number] : 1990 33 From: Aba Murguia MD [...] andis back to normal and feels fine. [facility] Medical History Tobacco abuse Stage 3a chronic [...] (Auto) 68.9 Lymph % (Auto) 13.3 L [place] % (Auto) 4.4 Eos % (Auto) 12.0 [...] Color Urine Clarity Urine pH Ur Specific [place] Urine Protein Urine Glucose (UA) Urine Ketones [...] (Auto) Neut % (Auto) Lymph % (Auto) [place] % (Auto) Eos % (Auto) Baso % (Auto) Absolute Neuts (auto) Absolute Lymphs (auto) Nucleated RBC % Platelet Estimate Sodium Potassium Chloride Cancelled Carbon Dioxide 5.7 L* Cancelled Anion Gap 35 H Cancelled BUN 10 Creatinine Estim Creat Clear Calc Est GFR (MDRD) Non-Af BUN/Creatinine Ratio Glucose Calcium b-Hydroxybutyric mmol/L Urine Color Urine Clarity Urine pH Ur Specific [place] Urine Protein Urine Glucose (UA) Urine Ketones [...] (Auto) Neut % (Auto) Lymph % (Auto) [place] % (Auto) Eos % (Auto) Baso % (Auto) Absolute Neuts (auto) Absolute Lymphs (auto) Nucleated RBC % Platelet Estimate Sodium Potassium Chloride Carbon Dioxide Anion Gap BUN Cancelled Creatinine 0.84 Cancelled Estim Creat Clear Calc 83.54 Cancelled Est GFR (MDRD) Non-Af 93 BUN/Creatinine Ratio Glucose Calcium b-Hydroxybutyric mmol/L Urine Color Urine Clarity Urine pH Ur Specific [place] Urine Protein Urine Glucose (UA) Urine Ketones [...] (Auto) Neut % (Auto) Lymph % (Auto) [place] % (Auto) Eos % (Auto) Baso % (Auto) Absolute Neuts (auto) Absolute Lymphs (auto) Nucleated RBC % Platelet Estimate Sodium Potassium Chloride Carbon Dioxide Anion Gap BUN Creatinine Estim Creat Clear Calc Est GFR (MDRD) Non-Af Cancelled BUN/Creatinine Ratio 12.0 Cancelled Glucose 339 H Cancelled Calcium 9.3 b-Hydroxybutyric mmol/L Urine Color Urine Clarity Urine pH Ur Specific [place] Urine Protein Urine Glucose (UA) Urine Ketones [...] (Auto) Neut % (Auto) Lymph % (Auto) [place] % (Auto) Eos % (Auto) Baso % (Auto) Absolute Neuts (auto) Absolute Lymphs (auto) Nucleated RBC % Platelet Estimate Sodium Potassium Chloride Carbon Dioxide Anion Gap BUN Creatinine Estim Creat Clear Calc Est GFR (MDRD) Non-Af BUN/Creatinine Ratio Glucose Calcium Cancelled b-Hydroxybutyric mmol/L 9.5 Urine Color Yellow Urine Clarity Clear Urine pH 5.0 Ur Specific [place] 1.030 Urine Protein 100 H Urine Glucose [...] No visible acute cardiopulmonary findings Reading Location: [facility] Rhythm Strip Rhythm Strip: Sinus Tach Rate: 112 Ectopy: None EKG Initial EKG: Attestation: I personally reviewed and interpreted this EKG as follows: Interpretation: No Acute Injury Pattern, Sinus Tachycardia and Non-Specific ST Changes Management Discussion w/another healthcare provider: Hospitalist Critical Care Time Critical Care Time: Yes Critical care time (excluding procedures): 30-74 minutes (32 min), Including time spent:, Discussing w/Patient &/or Family/Superintendent Transmission, Discussing w/Consultants, Arranging Admission or Transfer and Performing Direct Patient Care at Bedside Discharge Plan Dx/Rx/DC Orders Clinical Impression: DKA (diabetic ketoacidosis) Disposition Disposition: Acute Care Hospital [facility] Discharge Date/Time: 09/26/24 12:19 What to do if you have Problems For any increased pain, shortness of breath, bleeding, nausea or vomiting, chestpain, or any unexpected problems, contact your Primary Care Provider. Call [facility] ([phone]) or report tothe closest Emergency Room. Call 911 if necessary. 09/26/24 1634 Cosigner Signature (if applicable): CC: Dr. Meena Flowers, DO ~ Signed [facility]03-21-2025 Consult note [facility] Medical Records Department [address] [place] [address] Consultation - Perinatology Physician 09/26/24 1602 MR#: [id number] Acct: [id number] Name: BRETT BOBBY Rep #:[id number] : 1990 33 From: Dino Hernandez MD [...] rx. No documented SLG2i rx. [facility] Medical History Tobacco abuse Stage 3a chronic [...] mls/hr 09/26/24 12:38 Sodium Chloride CONT INF .[id number] [facility] Protocol Dextrose/Sodium Chloride 1,000 mls @ 150 mls/hr 09/26/24 15:15 09/26/24 15:19 IV 150 mls/hr .Q6H40M [facility] Administration Ceftriaxone Sodium 1 gm in 50 mls @ 100 mls/hr 09/26/24 15:55 Rocephin IV Q24 [facility] Insulin Glargine 24 unit 09/26/24 15:27 Insulin [...] (Auto) 68.9, Lymph % (Auto) 13.3 L, [place] % (Auto) 4.4, Eos % (Auto) 12.0 [...] Clarity Clear, Urine pH 5.0, Ur Specific [place] 1.030, Urine Protein 100 H, Urine Glucose [...] No visible acute cardiopulmonary findings Reading Location: [id number] Assessment and Plan . Assessment and plan: [...] applicable): CC: Dr. Meena Flowers, DO~ Signed [facility]03-21-2025 History and physical note [facility] Medical Records Department [address] [place] [address] History & Physical Exam 09/26/24 1049 MR#: [id number] Acct: [id number] Name: BRETT BOBBY Rep #:[id number] : 1990 33 From: Maggie Reed MD [...] in the ED were BP of 116/78, HI of 121, RR of 16 and temp [...] for DKA and probable UTI [facility] Medical History Tobacco abuse Stage 3a chronic [...] no sensory deficits noted Coordination / Balance: wefbfv-he-wjjd test normal Motor Exam: general weakness Psych [...] Clarity Clear, Urine pH 5.0, Ur Specific [place] 1.030, Urine Protein 100 H, Urine Glucose [...] prophylaxis: lovenox Charges/Coding Visit Charges Inpatient E&M: 48600 Init Hosp L3 09/26/24 1557 Cosigner Signature (if applicable): CC: Dr. Meena Flowers DO; Dr. Maggie Reed MD~ Signed [facility]03-21-2025 Evaluation note* Diagnosis Onset Date Resolution Status Admit Date DKA (diabetic ketoacidosis) acute September 26, 2024 11:04am [facility] Work Phone: 1(494) 128-304803-21-2025 Radiology Diagnostic study note [facility] Imaging Services [address] [place], [place] [id number] Chest 1 View (Portable) MR#: [id number] Acct: [id number] Name: BRETT BOBBY Rep #: [id number] : 1990 F 33 From: Simin Honeycutt MD PCP: Dr. Meena Flowers DO Status: REG ER Study:Chest 1 View (Portable) Date of Exam: 09/26/24 Exam# [id number] Ordering Dr: Steff Murguia MD PROCEDURE: CHEST [...] No visible acute cardiopulmonary findings Reading Location: [id number] CC: Dr. Aba Murguia MD; Dr. Meena Flowers DO ~ Wheel Presser: Signed [facility]03-21-2025 [facility] Medical Records Department [address] [place] [address] History Physical Exam 09/26/24 1049 MR#: [id number] Acct: [id number] Name: BRETT BOBBY Rep #: [id number] : 1990 33 From: Maggie Reed MD PCP: Dr. Meena Flowers DO Status:ADM IN Location: ICU [id number] HPI - General General Date of Admission: [...] in the ED were BP of 116/78, HI of 121, RR of 16 and temp [...] for DKA and probable UTI [facility] Medical History Tobacco abuse Stage 3a chronic [...] Skin Exam: no br (more content not included)...[facility]09-28-2024 [facility] Medical Records Department [address] [place] [address] Discharge Summary 04/05/24 1339 MR#: [id number] Acct: [id number] Name: BRETT BOBBY Rep #: [id number] : 1990 33 From: Michael Acosta DO PCP: Dr. Meena Flowers DO Status:DIS IN Location: ICU [id number] Providers Date of Admission: 04/04/24 Date of [...] was seen in the emergency room at [facility] with a chief complaint of nausea, vomiting, [...] Glucose 97 04/05/24 06 (more content not included)...[facility]11-18-2023 Progress note Author Douglas Serrano [facility] May 26, 2023 12:43pm Note Date/Time May 26, 2023 7:07am [facility] Medical Records Department [address] [place] [address] Progress Note - Hospitalist 05/26/2304 MR#: [id number] Acct: [id number] Name: BRETT BOBBY Rep #:[id number] : 1990 32 From: Douglas Serrano DO [...] 78.8 H, Lymph % (Auto) 12.4 L, [place] % (Auto) 7.1, Eos % (Auto) 0.1, [...] Clarity Clear, Urine pH 5.0, Ur Specific [place] 1.025, Urine Protein 30 H, Urine Glucose [...] % (Auto) 67.2, Lymph % (Auto) 19.4, [place]% (Auto) 10.6 H, Eos % (Auto) 1.4, [...] no surrogate. Charges/Coding Visit Charges Inpatient E&M: 14907 Subs Hosp L2 05/26/23 1243 <Electronically signed by Douglas Serrano DO> Cosigner Signature (if applicable): CC: ~ Signed [facility] Work Phone: 1(339) 291-718111-18-2023 Discharge summary Author Risa Gatica [facility] May 25, 2023 11:39pm Note Date/Time May 25, 2023 5:29pm [facility] Medical Records Department [address] [place] [address] Emergency Department Summary 05/25/23 MR#: [id number] Acct: [id number] Name: BRETT BOBBY Rep #:[id number] : 1990 32 From: Risa Gatica MD [...] Medical decision making narrative: Patient placed on cardiac rehabilitation specialist. EKG obtained to evaluate for cardiac arrhythmia/ischemia. [...] 78.8 H Lymph % (Auto) 12.4 L [place] % (Auto) 7.1 Eos % (Auto) 0.1 [...] Clarity Clear Urine pH 5.0 Ur Specific [place] 1.025 Urine Protein 30 H Urine Glucose [...] 18:22 EST Reading Location ID and State: [facility] / [place] Tel , Service support , EKG Initial [...] (30 minutes), Includingtime spent:, Discussing w/Patient &/or Family/Superintendent Transmission, Discussing w/Consultants and Arranging Admission or Transfer Discharge Plan Dx/Rx/DC Orders Clinical Impression: DKA (diabetic ketoacidosis) Disposition Disposition: Acute Care Hospital [facility] Discharge Date/Time: 05/25/23 21:36 What to do if you have Problems For any increased pain, shortness of breath, bleeding, nausea or vomiting, chestpain, or any unexpected problems, contact your Primary Care Provider. Call [facility] ([phone]) or report to the closest Emergency Room. Call 911 if necessary. 05/25/23 0466 <Electronically signed by Risa Gatica MD> Cosigner Signature (if applicable): CC: Dr. Meena Flowers DO ~ Signed [facility] Work Phone: 1([phone]) 213-129411-18-2023 History and physical note Author David Miramontes [facility] May 25, 2023 10:55pm Note Date/Time May 25, 2023 7:38pm [facility] Medical Records Department [address] [facility] [place] [address] H&P Exam - Hospitalist 05/25/231936 MR#: [id number] Acct: [id number] Name: BRETT BOBBY Rep #:[id number] : 1990 32 From: David Miramontes MD [...] 78.8 H, Lymph % (Auto) 12.4 L, [place] % (Auto) 7.1, Eos % (Auto) 0.1, [...] Clarity Clear, Urine pH 5.0, Ur Specific [place] 1.025, Urine Protein 30 H, Urine Glucose [...] no surrogate. Charges/Coding Visit Charges Inpatient E&M: 47230 Init Hosp L3 05/25/23 4479 <Electronically signed by David Miramontes MD> Cosigner Signature (if applicable): CC: Dr. David Miramontes MD; Dr. Meena Flowers DO~ Signed [facility] Work Phone: Discharge summary Author Douglas Serrano [facility] May 26, 2023 1:45pm Note Date/Time May 26, 2023 1:44pm [facility] Medical Records Department [address] [place] [address] Discharge Summary 05/26/23 1342 MR#: [id number] Acct: [id number] Name: BRETT BOBBY Rep #:[id number] : 1990 32 From: Douglas Serrano DO [...] 78.8 H, Lymph % (Auto) 12.4 L, [place] % (Auto) 7.1, Eos % (Auto) 0.1, [...] Clarity Clear, Urine pH 5.0, Ur Specific [place] 1.025, Urine Protein 30 H, Urine Glucose [...] % (Auto) 67.2, Lymph % (Auto) 19.4, [place]% (Auto) 10.6 H, Eos % (Auto) 1.4, [...] 18:22 EST Reading Location ID and State: [address] [place] [address] Tel , Service support , D/C Instructions [...] Self Care Charges/Coding Visit Charges Inpatient E&M: 73718 Disch Hosp 05/26/23 1345 <Electronically signed by Douglas Serrano DO> Cosigner Signature (if applicable): CC: Dr. Douglas Serrano, DO; Dr. Meena Flowers, DO~ Signed [facility] Work Phone: evaluation note* Diagnosis Onset Date Resolution Status Diabetic ketoacidosis acute Hyperkalemia acute Nausea and vomiting acute [facility] Work Phone: Evaluation noteNo assessment information available [facility] Work Phone: evaluation note* Diagnosis Onset Date Resolution Status DKA (diabetic ketoacidosis) acute [facility] Work Phone: evaluation note* Diagnosis Onset Date Resolution Status DKA (diabetic ketoacidosis) acute Tobacco abuse acute [facility] Work Phone: evaluation note* Diagnosis Onset Date Resolution Status DKA (diabetic ketoacidosis) resolved [facility] Work Phone: evaluation note* Diagnosis Onset Date Resolution Status Admit Date DKA (diabetic ketoacidosis) acute September 26, 2024 11:04am [facility] Phone[facility] instructions Additional Instructions Do sitz baths three times a day. [facility] Work Phone: Reason for referral (narrative)No reason for referral information availablePremier Health Work Phone: Chief Complaint and Reason for [...] No February 02, 2022 9:05pm Power of Lead Network Architect No February 02 9:05pm Advance Directive Response Recorded Date/ Time Advance Directives No November 19 5 5:00pm Living Will No May 23, 023 12:55am Power of Lead Network Architect No May 23, 2023 12:55am Advance Directive Response Recorded Date/ Time Advance Directives No November 19 5 5:00pm Living Will No May 25, 2 023 5:41pm Power of Lead Network Architect No May 25, 2023 5:41pm Advance Directive Response Recorded Date/ Time Advance Directives No November 19 5 5:00pm Living Will No May 25, 2 023 9:32pm Power of Lead Network Architect No May 25, 2023 9:32pm Advance Directive Response Recorded Date/ Time Advance Directives No November 19 5 5:00pm Living Will No June 05, 2 023 12:53pm Power of Lead Network Architect No June 05, 2023 12:53pm Advance Directive Response Recorded Date/ Time Advance Directives No November 19 5 6:00pm Living Will No September 24, 2023 12:57pm Power of Lead Network Architect No September 23 12:57pm Advance Directive Response Recorded Date/ Time Living Will No September 26, 2024 10:07am Do you have a Healthcare Power of Lead Network Architect? No September 26, 2024 10:07am Advance Directives No November 19 5 6:00pm Advance Directive Response Recorded Date/ Time Living Will No September 26, 2024 12:20pm Do you have a Healthcare Power of Lead Network Architect? No September 26, 2024 12:20pm Advance Directives [...] section and content) DATE CREATED AUTHOR 10/08/2024 [facility] FOR RECORDS PERTAINING TO PATIENTS WHO [...] BE BASED ON THE PRIMARY CLINICAL RECORDS. [facility]. provides no warranty or guarantee of the accuracy or completeness of information in this document.
--- NOTE | 2025-01-11 22:38 | RAD_ITS ---
PROCEDURE: CHEST 1 VIEW (PORTABLE) 01/11/2025 REASON FOR EXAM: Leukocytosis with diabetic ketoacidosis TECHNIQUE: Frontal view of the chest. COMPARISON: Chest radiograph September 26, 2024 FINDINGS: Hardware: EKG lead wires. Heart: Normal size. Lungs: Clear. Bones: No aggressive bone process. Other: RAD/Chest 1 View (Portable) IMPRESSION: No acute process detected. No significant change from prior exam. Reading [facility]
[2025-01-11 22:42] LABS: Ketone-Dipstick 150 mg/dl (Negative); Squamous Epithelial Cells - UA 0-5 SEEN /hpf (5-10)
[2025-01-11 23:32] LABS: Magnesium 1.7 mg/dL (1.5-2.2)
[2025-01-11 23:39] LABS: Anion Gap 29 (5-15); BUN 7 mg/dL (4-19); BUN/Creat Ratio 8.9 RATIO (10-20); Calcium,Total 8.4 mg/dL (7.6-11.0); Carbon Dioxide 4.2 mmol/L (21.0-32.0); Chloride 102 mmol/L (98-108); Estimated Creatinine Clearance 86.33 ml/min (50-250); Glucose 291 mg/dL (70-99); Potassium 5.0 mmol/L (3.3-5.1)
[2025-01-11 23:44] LABS: Internal QC Validated? YES +Cl - CLEAR BKGD; Pregnancy, Urine Negative Negative; Record Kit Lot#,Urine Preg 0000947241
[2025-01-12] VITALS (26 sets, daily range): BP systolic 106–131; BP diastolic 74–100; PULSE 77–122; RESP 16–26; TEMP 35.9–36.6; O2SAT 100; BMI 28.9
--- NOTE | 2025-01-12 00:03 | ED.RN ---
Report called to Delia in ICU.
[2025-01-12 00:25] LABS: Osmolality, Serum 310 mOsm/KG (275-295)
[2025-01-12 01:19] LABS: Allen Test Positive; Base Excess -24 mmol/L (-2 to +2); FI02 21.0; PO2 135 mmHG (75-100); SITE L Radial; SO2 98 % (95-99); Time Given 01:16:47
[2025-01-12] MEDS: 0.9% Normal Saline (1000mL) 1,000 ML 999 ML IV (02:06)
[2025-01-12] MEDS: Pantoprazole Sodium 40 MG in 0.9% Normal Saline (100mL MB+) 100 ML 330 MG IV ×2 (02:08→11:10)
[2025-01-12] MEDS: Dext 5%-0.45% NS 1,000 ML 150 ML IV ×3 (02:50→18:50)
[2025-01-12] MEDS: 0.9% Normal Saline (1000mL) 1,000 ML 500 ML IV (02:52)
--- NOTE | 2025-01-12 03:52 | NURSING ---
Lab called w/ abnormal calcium level, will redraw.
[2025-01-12 03:59] LABS: BETA-HYDROXYBUTYRATE 5.2 mmol/L (0.0-0.3)
[2025-01-12 06:08] LABS: Anion Gap 20 (5-15); BUN 5 mg/dL (4-19); BUN/Creat Ratio 7.4 RATIO (10-20); Calcium,Total 7.5 mg/dL (7.6-11.0); Carbon Dioxide 6.5 mmol/L (21.0-32.0); Chloride 109 mmol/L (98-108); Estimated Creatinine Clearance 98.54 ml/min (50-250); Glucose 146 mg/dL (70-99); Potassium 4.2 mmol/L (3.3-5.1)
--- NOTE | 2025-01-12 07:12 | PN.HOSP_ITS ---
Reason for Visit Reason for Visit: Diagnoses Elevated white blood cell count, unspecified (01/11/25) Type 1 diabetes mellitus with ketoacidosis without coma (01/11/25) Type 2 diabetes mellitus with ketoacidosis without coma (01/11/25) Overweight (01/11/25) Reaction to severe stress, unspecified (01/11/25) Palpitations (01/11/25) Shortness of breath (01/11/25) Nausea (01/11/25) Tobacco use (01/11/25) Subjective Subjective Patient with no acute events overnight per self and per nursing report. Patient continued on insulin drip with gap elevation continued however she notes feeling significantly improved since initial ED arrival with no nausea, emesis, abdominal pain or dyspnea. She does feel like she is returning more to her normal baseline. Discussed plan to continue insulin drip until anion gap closed x 2 and bicarb more appropriate to which she is amenable. Discussed plan also for nutrition consult and stressed importance of lifestyle and diet alteration. Patient denies fevers, chills, chest pain. Objective Data Objective Data Vital Signs: Vital Signs Temp Pulse Resp BP Pulse Ox O2 Del Method 97.6 F L 100 16 106/78 100 Room Air 01/12/25 06:00 01/12/25 06:00 01/12/25 06:00 01/12/25 06:00 01/12/25 06:00 01/12/25 06:00 Oxygen Delivery Method Room Air Weight: 153 lb 0.013 oz Body Mass Index (BMI) 28.9 Intake & Output: Intake and Output for Last 24 Hours 01/10/25 01/11/25 01/12/25 23:59 23:59 23:59 Intake Total 1012.69 / 1012.69 3127.11 / 3127.11 Balance 1012.69 / 1012.69 3127.11 / 3127.11 Lab / Micro Data 01/11/25 21:05 01/12/25 09:30 Labs: Laboratory Results - last 24 hr 01/11/25 20:20: Sodium 134, Potassium 5.1, Chloride 96 L, Carbon Dioxide 4.3 L*, Anion Gap 34 H, BUN 7, Creatinine 0.85, Estim Creat Clear Calc 81.25, Est GFR (MDRD) Non-Af 91, BUN/Creatinine Ratio 8.1 L, Glucose 324 H, Calcium 9.7, b- Hydroxybutyric mmol/L 10.5 H 01/11/25 20:37: POC Glucose 286 H 01/11/25 21:05: WBC 12.2 H, RBC 4.45, Hgb 13.0, Hct 43.1, MCV 96.9, MCH 29.2, M CHC 30.2 L, RDW Std Deviation 52.6 H, RDW Coeff of Bret 14.6, Plt Count 365, MPV 10.2, Immature Gran % (Auto) 0.500, Neut % (Auto) 85.3 H, Lymph % (Auto) 9.4 L, [place] % (Auto) 4.1, Eos % (Auto) 0.0, Baso % (Auto) 0.7, Absolute Neuts (auto) 10.4 H, Absolute Lymphs (auto) 1.14, Nucleated RBC % 0, Urine Color Yellow, Urine Clarity Clear, Urine pH 6.0, Ur Specific Phil [place] 1.030, Urine Protein 30 H , Urine Glucose (UA) 1000 H, Urine Ketones 150 A*, Urine Occult Blood 250 H, Urine Nitrite Negative, Urine Bilirubin Negative, Urine Urobilinogen Normal, Ur Leukocyte Esterase Negative, Urine RBC 0 SEEN, Urine WBC 0 SEEN, Ur Squamous Epith Cells 0-5 SEEN, Urine Bacteria 2+, Urine Mucus 0 SEEN, Urine Test Negative 01/11/25 21:10: Hemoglobin A1c 10.1 H 01/11/25 22:00: POC Glucose 323 H 01/11/25 22:57: POC Glucose 280 H 01/11/25 23:00: Sodium 135, Potassium 5.0, Chloride 102, Carbon Dioxide 4.2 L*, Anion Gap 29 H, BUN 7, Creatinine 0.80, Estim Creat Clear Calc 86.33, Est GFR (MDRD) Non-Af 98, BUN/Creatinine Ratio 8.9 L, Glucose 291 H, Calcium 8.4, Magnesium 1.7 01/11/25 23:45: Serum Osmolality 310 H 01/12/25 01:30: POC Glucose 180 H 01/12/25 02:30: Sodium Cancelled, Potassium Cancelled, Chloride Cancelled, Carbon Dioxide Cancelled, Anion Gap Cancelled, BUN Cancelled, Creatinine Cancelled, Estim Creat Clear Calc Cancelled, Est GFR (MDRD) Non-Af Cancelled, BUN/Creatinine Ratio Cancelled, Glucose Cancelled, Calcium Cancelled, b- Hydroxybutyric mmol/L 5.2 H, TSH Cancelled 01/12/25 02:41: POC Glucose 158 H 01/12/25 04:12: POC Glucose 190 H 01/12/25 04:46: Sodium 136, Potassium 4.2, Chloride 109 H, Carbon Dioxide 6.5 L* , Anion Gap 20 H, BUN 5, Creatinine 0.71, Estim Creat Clear Calc 98.54, Est GFR (MDRD) Non-Af 114, BUN/Creatinine Ratio 7.4 L, Glucose 146 H, Calcium 7.5 L, TSH 2.950 01/12/25 05:51: POC Glucose 130 H 01/12/25 06:41: POC Glucose 117 H ABG Data ABG results: ABG 01/11/25 01/12/25 22:17 01:14 Specimen Type BETHANY ART Sample Site Not entered L Radial pH 7.15 L* Bicarbonate Actual 4.6 L Total CO2 5 Base Excess -24 L O2 Saturation 98 O2 % 21.0 ABG pCO2 13.3 L* ABG pO2 135 H Mahendra Test Positive VBG pH 7.02 L* VBG pO2 60 H VBG HCO3 6 L VBG Total CO2 6 L VBG O2 Sat (Calc) 77 H VBG Base Excess -25 L POC Mix VBG pCO2 Pt Tmp 22.4 L O2 Delivery Device Not entered Room Air Vent Mode Not entered Crit Call To/Read Back Yes Yes Blood Gas Notified Whom dr.gallo dr.de Cormier Blood Gas Notified Time 22:19:19 01:16:47 Radiography Diagnostic Testing: Radiology Impression Chest X-Ray 01/11/25 22:38 IMPRESSION: No acute process detected. No significant change from prior exam. Reading Location: ON LICENSE OF [facility] Physical Exam Narrative Physical Examination: General: Awake, alert, oriented x 3 and cooperative, laying in the ICU bed, fatigued but notes she is feeling improved. Skin: Normal color, normal turgor, no icterus, no cyanosis except occasional stage ecchymoses, abrasion. HEENT: AT/NC, EOMI, PERRLA, mildly dry MM. Lungs: CTA bilaterally, moderate effort, mild decrease BL bases, no rales, ronchi or wheezing. Heart: Improved, regular rate and rhythm; no gallop, rub audible. Abdomen: Soft, NTTP, ND, mildly hyperactive BS. Extremities: No cyanosis, clubbing, or edema. Neurological: Patient awake, alert, oriented as noted, cognitive function intact; pupils equally reactive to light and accommodation, cranial nerves grossly normal, moving all 4 extremities, no focal deficits, strength improving, mildly globally creased. Psychiatric: Affect appears fatigued otherwise normal, no acute evidence of depressive or anxiety feelings. Assessment & Plan Assessment/Plan (1) Diabetic keto-acidosis: QUALIFIERS: Diabetes mellitus type: type 1 Diabetes mellitus complication detail: without coma Qualified Code(s): E10.10 - Type 1 diabetes mellitus with ketoacidosis without coma PLAN: Plan The patient is a 34 y/o F w/ PMHx: Overweight, Tobacco use, IDDM, CKD stage IIIa per chart review who presents to the [facility] ED on 01/11/25 with history of nausea, emesis and elevated blood sugars starting morning on day of presentation with palpitations, racing heart in addition to dyspnea prompting ED evaluation to be cautious. #1. DKA w/ Diabetes mellitus type I: Patient admitted to the ICU, maintained on insulin drip, serial BMP assessments for IV fluid change needs and electrolyte repletion, will continue to trend in addition to mag and Phos with supplementation as needed, once anion gap closed x 2 and bicarb appropriate will plan transition to home SC regimen when gap closed w/ overlap on drip. Nutrition consulted for education and teaching. Encouraged diet and insulin regimen compliance. Hemoglobin A1c 10.1% not markedly improved from her most recent noted 09/30/24 hemoglobin A1c 10.2%. From records concern for noncompliance. #2. Chronic Kidney Disease Stage IIIa per chart reporting; however, GFR seems to vacillate and currently greater than 100 thus uncertain if this is a true diagnosis: Admission BUN/Cr 5/0.71, GFR 114, repeat level 01/12/25 BUN/creatinine 5/0.71 on repeat given serial BMP, baseline renal function 0.6-0.8 primarily, will continue to trend given #1. #3. Tobacco Abuse: Encouraged cessation, inpatient consultation per RT, NR if desired. #4. Overweight: Weight loss and lifestyle changes encouraged. #5. GERD: Currently maintained on IV PPI, may transition off to oral option if necessary once transition to a diet. #6. DVT prophylaxis: Lovenox. Charges/Coding Visit Charges Inpatient E&M: 70474 Subs Hosp L3
[2025-01-12] MEDS: Sodium Bicarbonate 8.4% 50 ML Syringe 50 MEQ IV (09:22)
[2025-01-12] MEDS: 0.9% Saline Lock 10 ML Syringe IV (09:24)
[2025-01-12 10:24] LABS: Anion Gap 13 (5-15); BUN 5 mg/dL (4-19); BUN/Creat Ratio 6.9 RATIO (10-20); Calcium,Total 8.0 mg/dL (7.6-11.0); Carbon Dioxide 11.8 mmol/L (21.0-32.0); Chloride 111 mmol/L (98-108); Estimated Creatinine Clearance 98.54 ml/min (50-250); Glucose 95 mg/dL (70-99); Potassium 4.1 mmol/L (3.3-5.1)
--- NOTE | 2025-01-12 12:46 | CASEMGMT ---
KWASI RUIZ Assessment Face to Face with patient for initial transition planning/care coordination assessment. KWASI RUIZ introduced self and role at [facility], pt voices understanding. Pt is A&Ox4 and is resting comfortably in bed and is calm. Care providers, pharmacy, and demographics verified. Admitting dx: ISABEL ODONNELL Strata: 3 PCP: Meena Flowers Specialists: Denies current. Pt states that she has tried getting established with Dr Kaiser in the past. Pt states that Roland Rivera reported to the pt at that time that the pt requires a physician's referral. Pt states that she still has the contact information for Roland Rivera. CM to follow. Preferred Pharmacy: [facility] Insurance: [employer] Prescription Benefit: Yes LNOK: Genesis (Mother) Living Arrangements: Pt lives with her parents and 4 children (Ages 12, 10, 9, & 7) in a 2 story home with 3 steps to enter. Pt reports that her Grandma recently passed. Emotional support provided. Pt denies wanting to speak with social work. ADLs/IADLs: Indep Transportation: Self but does not currently have a license. Pt's mother drives. Denies concerns DME: CBGM and regular BGM with sufficient supplies including pen needles, test strips, lancets, and EtOH swabs. Denies concerns or needs. Pt has been seen by the hydroelectric mechanic already. Denies further concerns. HHC/SNF: Denies hx or needs Tobacco: Pt states that she smokes a little less than 1/2 pack of cigarettes per day. Denies wanting cessation resources Pt?s goal: Home Plan: Home with pt's family once medically ready and to follow up with endocrinology. Pt states that she feels safe with this plan and denies further questions or concerns. Steff Overton RN, CM
[2025-01-12 13:30] LABS: Anion Gap 18 (5-15); BUN 5 mg/dL (4-19); BUN/Creat Ratio 6.8 RATIO (10-20); Calcium,Total 7.9 mg/dL (7.6-11.0); Carbon Dioxide 11.5 mmol/L (21.0-32.0); Chloride 105 mmol/L (98-108); Estimated Creatinine Clearance 95.84 ml/min (50-250); Glucose 206 mg/dL (70-99); Potassium 4.4 mmol/L (3.3-5.1)
[2025-01-12 17:14] LABS: Anion Gap 15 (5-15); BUN 5 mg/dL (4-19); BUN/Creat Ratio 7.3 RATIO (10-20); Calcium,Total 7.6 mg/dL (7.6-11.0); Carbon Dioxide 11.8 mmol/L (21.0-32.0); Chloride 107 mmol/L (98-108); Estimated Creatinine Clearance 107.63 ml/min (50-250); Glucose 206 mg/dL (70-99); Potassium 3.6 mmol/L (3.3-5.1)
[2025-01-12 20:53] LABS: Anion Gap 16 (5-15); BUN 4 mg/dL (4-19); BUN/Creat Ratio 6.5 RATIO (10-20); Calcium,Total 7.5 mg/dL (7.6-11.0); Carbon Dioxide 12.3 mmol/L (21.0-32.0); Chloride 105 mmol/L (98-108); Estimated Creatinine Clearance 111.05 ml/min (50-250); Glucose 183 mg/dL (70-99); Potassium 3.9 mmol/L (3.3-5.1)
[2025-01-13] VITALS (12 sets, daily range): BP systolic 105–129; BP diastolic 67–93; PULSE 57–76; RESP 15–23; TEMP 35.9–36.6; O2SAT 98–100; BMI 28.9
[2025-01-13 00:43] LABS: Anion Gap 13 (5-15); BUN 3 mg/dL (4-19); BUN/Creat Ratio 6.6 RATIO (10-20); Calcium,Total 7.9 mg/dL (7.6-11.0); Carbon Dioxide 14.5 mmol/L (21.0-32.0); Chloride 107 mmol/L (98-108); Estimated Creatinine Clearance 139.92 ml/min (50-250); Glucose 136 mg/dL (70-99); Potassium 3.0 mmol/L (3.3-5.1)
[2025-01-13] MEDS: Dext 5%-0.45% NS 1,000 ML 150 ML IV ×2 (01:31→08:18)
[2025-01-13 04:37] LABS: Hematocrit 35.2 % (37-47); Hemoglobin 11.5 g/dL (12.0-15.0); Immature Granulocytes Count 0.010 X10^3/uL (0.0-0.0); Mean Corp Hgb Conc 32.7 g/dL (32-36); Mean Corpuscular Volume 89.3 fL (81-99); Mean Platelet Vol. 9.5 fl (6.2-12.0); NRBC Flagged by Analyzer 0 % (0-5); Platelet Count 264 K/mm3 (150-450); RBC Distribution Width CV 14.6 % (11.6-14.6); RBC Distribution Width SD 47.9 fl (35.1-43.9); Red Blood Count 3.94 M/mm3 (4.2-5.4); White Blood Count 6.4 K/mm3 (4.4-11.0)
[2025-01-13 05:21] LABS: AST(SGOT) 25 U/L (<=31); Alanine Aminotransfer ALT/SGPT 24 U/L (<=34); Albumin, Serum 3.4 g/dL (3.5-5.0); Alkaline Phosphatase 44 U/L (35-104); Anion Gap 13 (5-15); BUN 3 mg/dL (4-19); BUN/Creat Ratio 5.3 RATIO (10-20); Calcium,Total 8.0 mg/dL (7.6-11.0); Carbon Dioxide 14.8 mmol/L (21.0-32.0); Chloride 108 mmol/L (98-108); Estimated Creatinine Clearance 137.18 ml/min (50-250); Globulin 2.0 g/dL (2.2-4.2); Glucose 97 mg/dL (70-99); Potassium 3.1 mmol/L (3.3-5.1)
[2025-01-13 05:40] LABS: Magnesium 1.5 mg/dL (1.5-2.2)
[2025-01-13 06:25] LABS: BETA-HYDROXYBUTYRATE 2.5 mmol/L (0.0-0.3)
--- NOTE | 2025-01-13 06:53 | PCM.PN.HOSP ---
Reason for Visit Reason for Visit: Diagnoses Elevated white blood cell count, unspecified (01/11/25) Type 1 diabetes mellitus with ketoacidosis without coma (01/11/25) Type 2 diabetes mellitus with ketoacidosis without coma (01/11/25) Overweight (01/11/25) Reaction to severe stress, unspecified (01/11/25) Palpitations (01/11/25) Shortness of breath (01/11/25) Nausea (01/11/25) Tobacco use (01/11/25) Subjective Subjective Patient with no acute events overnight per self and per nursing report. This morning patient fortunately has close the gap x 2 and carbon oxide level has elevated appropriately. Patient notes she is very eager for diet and initially very disappointed at potential not being discharged to home but given lengthy time of insulin drip need discussed importance of making sure that blood sugars are appropriate, electrolytes corrected and the patient does not return into DKA to which she is amenable. Patient denies fevers, chills, nausea, emesis, abdominal pain, chest pain or dyspnea. Objective Data Objective Data Vital Signs: Vital Signs Temp Pulse Resp BP Pulse Ox O2 Del Method 96.7 F L 57 L 18 105/67 99 Room Air 01/13/25 01:00 01/13/25 06:00 01/13/25 06:00 01/13/25 06:00 01/13/25 06:00 01/13/25 06:00 Oxygen Delivery Method Room Air Weight: 153 lb 3.54 oz Body Mass Index (BMI) 28.9 Intake & Output: Intake and Output for Last 24 Hours 01/11/25 01/12/25 01/13/25 23:59 23:59 23:59 Intake Total 1012.69 / 1012.69 5513.29 / 5516.19 1016.1 / 1016.1 Output Total 1700 / 1700 Balance 1012.69 / 1012.69 3813.29 / 3816.19 1016.1 / 1016.1 Lab / Micro Data 01/13/25 04:28 01/13/25 08:07 Labs: Laboratory Results - last 24 hr 01/12/25 05:51: POC Glucose 130 H 01/12/25 06:41: POC Glucose 117 H 01/12/25 08:16: POC Glucose 121 H 01/12/25 09:19: POC Glucose 102 01/12/25 09:30: Sodium 135, Potassium 4.1, Chloride 111 H, Carbon Dioxide 11.8 L, Anion Gap 13, BUN 5, Creatinine 0.71, Estim Creat Clear Calc 98.54, Est GFR (MDRD) Non-Af 113, BUN/Creatinine Ratio 6.9 L, Glucose 95, Calcium 8.0 01/12/25 10:08: POC Glucose 76 01/12/25 10:34: POC Glucose 56 L 01/12/25 11:02: POC Glucose 187 H 01/12/25 12:08: POC Glucose 179 H 01/12/25 12:25: Sodium 134, Potassium 4.4, Chloride 105, Carbon Dioxide 11.5 L, Anion Gap 18 H, BUN 5, Creatinine 0.73, Estim Creat Clear Calc 95.84, Est GFR (MDRD) Non-Af 110, BUN/Creatinine Ratio 6.8 L, Glucose 206 H, Calcium 7.9 01/12/25 13:09: POC Glucose 190 H 01/12/25 14:06: POC Glucose 208 H 01/12/25 15:05: POC Glucose 212 H 01/12/25 16:14: POC Glucose 202 H 01/12/25 16:20: Sodium 133, Potassium 3.6, Chloride 107, Carbon Dioxide 11.8 L, Anion Gap 15, BUN 5, Creatinine 0.65 L, Estim Creat Clear Calc 107.63, Est GFR (MDRD) Non-Af 118, BUN/Creatinine Ratio 7.3 L, Glucose 206 H, Calcium 7.6 01/12/25 17:13: POC Glucose 152 H 01/12/25 17:59: POC Glucose 155 H 01/12/25 18:53: POC Glucose 150 H 01/12/25 20:02: POC Glucose 176 H 01/12/25 20:13: Sodium 133, Potassium 3.9, Chloride 105, Carbon Dioxide 12.3 L, Anion Gap 16 H, BUN 4, Creatinine 0.63 L, Estim Creat Clear Calc 111.05, Est GFR (MDRD) Non-Af 119, BUN/Creatinine Ratio 6.5 L, Glucose 183 H, Calcium 7.5 L 01/12/25 21:00: POC Glucose 175 H 01/12/25 22:03: POC Glucose 181 H 01/12/25 23:02: POC Glucose 150 H 01/13/25 00:05: POC Glucose 148 H 01/13/25 00:10: Sodium 135, Potassium 3.0 L, Chloride 107, Carbon Dioxide 14.5 L, Anion Gap 13, BUN 3 L, Creatinine 0.50 L, Estim Creat Clear Calc 139.92, Est GFR (MDRD) Non-Af 125, BUN/Creatinine Ratio 6.6 L, Glucose 136 H, Calcium 7.9 01/13/25 01:00: POC Glucose 113 H 01/13/25 02:08: POC Glucose 105 01/13/25 03:01: POC Glucose 93 01/13/25 04:13: POC Glucose 97 01/13/25 04:28: WBC 6.4, RBC 3.94 L, Hgb 11.5 L, Hct 35.2 L, MCV 89.3 D, MCH 29.2, MCHC 32.7 D, RDW Std Deviation 47.9 H, RDW Coeff of Bret 14.6, Plt Count 264, MPV 9.5, Immature Gran % (Auto) 0.200, Neut % (Auto) 51.4, Lymph % (Auto) 36.5, Carbon % (Auto) 9.7, Eos % (Auto) 1.4, Baso % (Auto) 0.8, Absolute Neuts (auto) 3.3, Absolute Lymphs (auto) 2.34, Nucleated RBC % 0, Sodium 136, Potassium 3.1 L, Chloride 108, Carbon Dioxide 14.8 L, Anion Gap 13, BUN 3 L, Creatinine 0.51 L, Estim Creat Clear Calc 137.18, Est GFR (MDRD) Non-Af 125, BUN/Creatinine Ratio 5.3 L, Glucose 97, Calcium 8.0, Phosphorus 1.0 L*, Magnesium 1.5, Total Bilirubin 0.46, AST 25, ALT 24, Alkaline Phosphatase 44, Total Protein 5.3 L, Albumin 3.4 L, Globulin 2.0 L, Albumin/Globulin Ratio 1.7, b-Hydroxybutyric mmol/L 2.5 H 01/13/25 05:05: POC Glucose 112 H 01/13/25 06:05: POC Glucose 142 H Physical Exam Narrative Physical Examination: General: Awake, alert, oriented x 3 and cooperative, laying in the ICU bed, denies any acute complaints, eager for diet. Skin: Normal color, normal turgor, no icterus, no cyanosis except occasional stage ecchymoses, abrasion. HEENT: AT/NC, EOMI, PERRLA, MMM. Lungs: CTA bilaterally, moderate effort, mild decrease BL bases, no rales, ronchi or wheezing. Heart: Improved, regular rate and rhythm; no gallop, rub audible. Abdomen: Soft, NTTP, ND, mildly hyperactive BS. Extremities: No cyanosis, clubbing, or edema. Neurological: Patient awake, alert, oriented as noted, cognitive function intact; pupils equally reactive to light and accommodation, cranial nerves grossly normal, moving all 4 extremities, no focal deficits, strength continues to improve, near baseline. Psychiatric: Affect appears mildly fatigued otherwise normal, no acute evidence of depressive or anxiety feelings. Assessment & Plan Assessment/Plan (1) Diabetic keto-acidosis: QUALIFIERS: Diabetes mellitus complication detail: without coma Diabetes mellitus type: type 1 Qualified Code(s): E10.10 - Type 1 diabetes mellitus with ketoacidosis without coma PLAN: Plan The patient is a 34 y/o F w/ PMHx: Overweight, Tobacco use, IDDM, CKD stage IIIa per chart review who presents to the [facility] ED on 01/11/25 with history of nausea, emesis and elevated blood sugars starting morning on day of presentation with palpitations, racing heart in addition to dyspnea prompting ED evaluation to be cautious. #1. DKA w/ Diabetes mellitus type I: Patient admitted to the ICU initially, maintained on insulin drip initially with serial BMP assessments for IV fluid change needs and electrolyte repletion. Magnesium and phosphorus levels monitored and repleted as needed. 01/13/2025 early a.m. additional bicarb amp x 2 administered. 01/13/25 weight AM anion gap closed x 2 and bicarb improved thus patient transitioned to home SC regimen w/ overlap on drip with diet initiation and transition to Accu-Cheks with insulin sliding scale and home scheduled sliding scale regimen additionally. Nutrition consulted for education and teaching. Encouraged diet and insulin regimen compliance. Hemoglobin A1c 10.1%, not markedly improved from her most recent noted 09/30/24 hemoglobin A1c 10.2%. Given clinical improvement we will plan transition from ICU status to MS status 01/13/2025. #2. Hypokalemia, hypophosphatemia, hypomagnesemia: Admission K+ 3.1, supplementation given per electrolyte protocol, repeat level in AM. Phosphorus 1.0, IV supplementation ordered per electrolyte protocol. Magnesium 1.5, IV supplementation ordered per electrolyte protocol. Will plan repeat magnesium, phosphorus 01/13/2025 afternoon to assure improved. #3. Chronic Kidney Disease Stage IIIa per chart reporting; however, GFR seems to vacillate and currently greater than 100 thus uncertain if this is a true diagnosis: Admission BUN/Cr 5/0.71, GFR 114, repeat level 01/12/25 BUN/creatinine 5/0.71 on repeat given serial BMP, baseline renal function 0.6-0.8 primarily, 01/13/2025 BUN/creatinine 3/0.51, GFR 125, continue to trend. #4. Normocytic anemia: Admission hemoglobin 13, MCV 96.9, baseline has vacillated anywhere from 11-13 range, 01/13/2025 normal 9.5, MCV 89.3. #5. Tobacco Abuse: Encouraged cessation, inpatient consultation per RT, NR if desired. #6. Overweight: Weight loss and lifestyle changes encouraged. #7. GERD: Currently maintained on IV PPI, may transition off to oral option if necessary once transition to a diet. #8. DVT prophylaxis: Lovenox. Charges/Coding Visit Charges Inpatient E&M: 65829 Subs Hosp L3
[2025-01-13] MEDS: Sodium Bicarbonate 8.4% 50 ML Syringe 50 MEQ IV ×2 (07:08)
[2025-01-13] MEDS: Insulin Lispro 100 UNIT in 0.9% Normal Saline (100mL Bag) 99 ML CONT INF (07:32)
[2025-01-13] MEDS: Magnesium Sulfate 2 GM in Dextrose 5%-Water (100mL Bag) 100 ML IV (08:19)
[2025-01-13] MEDS: Potassium Chloride 10mEq/100mL 10 MEQ/100 ML IV.SOLN. 100 MEQ IV BOLUS ×2 (08:19→09:26)
[2025-01-13] MEDS: Sodium Phosphate/Na Biphos 15 MMOL in 0.9% Normal Saline (250mL Bag) 250 ML 125 MMOL IV (08:28)
[2025-01-13 09:29] LABS: Anion Gap 11 (5-15); BUN 2 mg/dL (4-19); BUN/Creat Ratio 5.1 RATIO (10-20); Calcium,Total 7.8 mg/dL (7.6-11.0); Carbon Dioxide 20.1 mmol/L (21.0-32.0); Chloride 106 mmol/L (98-108); Estimated Creatinine Clearance 142.88 ml/min (50-250); Glucose 118 mg/dL (70-99); Potassium 3.5 mmol/L (3.3-5.1)
--- NOTE | 2025-01-13 14:03 | DS.PCM_ITS ---
Providers Date of Admission: 01/11/25 Date of Discharge: 01/13/25 Primary Care Physician: Dr. Meena Flowers DO Reason For Visit: DKA Diagnosis Discharge Diagnosis (1) Diabetic keto-acidosis: Status: Acute Code(s): E11.10 - Type 2 diabetes mellitus with ketoacidosis without coma Qualifiers: Diabetes mellitus type: type 1 Diabetes mellitus complication detail: w ithout coma Qualified Code(s): E10.10 - Type 1 diabetes mellitus with ketoacidosis without coma Plan: DISCHARGE DIAGNOSES: #1. DKA w/ Diabetes mellitus type I, uncontrolled, concern noncompliance #2. Hypokalemia, hypophosphatemia, hypomagnesemia #3. ? Chronic Kidney Disease Stage IIIa per chart reporting; however, GFR seems to vacillate and currently greater than 100 thus uncertain if this is a true diagnosis #4. Normocytic anemia, chronic #5. Tobacco Abuse #6. Overweight #7. GERD Medications at Discharge Home Medications insulin aspart U-100 100 unit/mL (3 mL) subcutaneous pen (Novolog FlexPen U-100 Insulin aspart) See Protocol subcut TID PRN Hyperglycemia 02/02/22 insulin glargine-yfgn 100 unit/mL (3 mL) subcutaneous pen 24 unit subcut BID diabete 01/11/25 potassium chloride 10 mEq capsule,extended release 10 meq PO BID 01/11/25 nicotine 14 mg/24 hr daily transdermal patch 14 mg transdermal DAILY 14 days #14 ea 01/13/25 Hospital Course Operations None Procedures EKG and - (ICU admission with insulin drip usage.) Summary of Care Provided Minutes Spent on Discharge: 35 Hospital Course: The patient is a 34 y/o F w/ PMHx: Overweight, Tobacco use, IDDM, ? CKD stage IIIa per chart review who presented to the [facility] ED on 01/11/25 with history of nausea, emesis and elevated blood sugars starting morning on day of presentation with palpitations, racing heart in addition to dyspnea prompting ED evaluation to be cautious. Patient admitted to the ICU initially, maintained on insulin drip initially with serial BMP assessments for IV fluid change needs and electrolyte repletion. Magnesium, potassium and phosphorus levels monitored and repleted as needed. 01/13/2025 early a.m. additional bicarb amp x 2 administered. 01/13/25 weight AM anion gap closed x 2 and bicarb improved thus patient transitioned to home SC regimen w/ overlap on drip with diet initiation and transition to Accu-Cheks with insulin sliding scale and home scheduled sliding scale regimen additionally. Nutrition consulted for education and teaching. Encouraged diet and insulin regimen compliance. Hemoglobin A1c 10.1%, not markedly improved from her most recent noted 09/30/24 hemoglobin A1c 10.2%. Given clinical improvement we will plan transition from ICU status to MS status 01/13/2025. Patient with significant electrolyte disturbances as noted with potassium, phosphorus and magnesium all of which were supplemented with recommended follow-up repeat lab testing with PCP outpatient. During admission noted chart history of possible CKD stage III however renal function during admission with GFR greater than 100 thus unclear if true diagnosis with recommended follow-up repeat renal function assessment outpatient and close monitoring for any renal function changes/chronic disease with early referral to nephrology recommended. Encouraged tobacco cessation with prescription for nicotine patch sent at discharge. At discharge recommended early follow-up with primary care physician in addition to referral for endocrinology. Weight / BMI Weight Weight: 153 lb 3.54 oz Body Mass Index (BMI) 28.9 ABG / Lab / Microbiology Data 01/13/25 04:28 01/13/25 08:07 Laboratory: Laboratory Results - last 24 hr 01/12/25 14:06: POC Glucose 208 H 01/12/25 15:05: POC Glucose 212 H 01/12/25 16:14: POC Glucose 202 H 01/12/25 16:20: Sodium 133, Potassium 3.6, Chloride 107, Carbon Dioxide 11.8 L, Anion Gap 15, BUN 5, Creatinine 0.65 L, Estim Creat Clear Calc 107.63, Est GFR (MDRD) Non-Af 118, BUN/Creatinine Ratio 7.3 L, Glucose 206 H, Calcium 7.6 01/12/25 17:13: POC Glucose 152 H 01/12/25 17:59: POC Glucose 155 H 01/12/25 18:53: POC Glucose 150 H 01/12/25 20:02: POC Glucose 176 H 01/12/25 20:13: Sodium 133, Potassium 3.9, Chloride 105, Carbon Dioxide 12.3 L, Anion Gap 16 H, BUN 4, Creatinine 0.63 L, Estim Creat Clear Calc 111.05, Est GFR (MDRD) Non-Af 119, BUN/Creatinine Ratio 6.5 L, Glucose 183 H, Calcium 7.5 L 01/12/25 21:00: POC Glucose 175 H 01/12/25 22:03: POC Glucose 181 H 01/12/25 23:02: POC Glucose 150 H 01/13/25 00:05: POC Glucose 148 H 01/13/25 00:10: Sodium 135, Potassium 3.0 L, Chloride 107, Carbon Dioxide 14.5 L , Anion Gap 13, BUN 3 L, Creatinine 0.50 L, Estim Creat Clear Calc 139.92, Est GFR (MDRD) Non-Af 125, BUN/Creatinine Ratio 6.6 L, Glucose 136 H, Calcium 7.9 01/13/25 01:00: POC Glucose 113 H 01/13/25 02:08: POC Glucose 105 01/13/25 03:01: POC Glucose 93 01/13/25 04:13: POC Glucose 97 01/13/25 04:28: WBC 6.4, RBC 3.94 L, Hgb 11.5 L, Hct 35.2 L, MCV 89.3 D, MCH 29.2, MCHC 32.7 D, RDW Std Deviation 47.9 H, RDW Coeff of Bret 14.6, Plt Count 264, MPV 9.5, Immature Gran % (Auto) 0.200, Neut % (Auto) 51.4, Lymph % (Auto) 36.5, [place] % (Auto) 9.7, Eos % (Auto) 1.4, Baso % (Auto) 0.8, Absolute Neuts (auto) 3.3, Absolute Lymphs (auto) 2.34, Nucleated RBC % 0, Sodium 136, P otassium 3.1 L, Chloride 108, Carbon Dioxide 14.8 L, Anion Gap 13, BUN 3 L, C reatinine 0.51 L, Estim Creat Clear Calc 137.18, Est GFR (MDRD) Non-Af 125, B UN/Creatinine Ratio 5.3 L, Glucose 97, Calcium 8.0, Phosphorus 1.0 L*, Magnesium 1.5, Total Bilirubin 0.46, AST 25, ALT 24, Alkaline Phosphatase 44, Total Protein 5.3 L, Albumin 3.4 L, Globulin 2.0 L, Albumin/Globulin Ratio 1.7, b- Hydroxybutyric mmol/L 2.5 H 01/13/25 05:05: POC Glucose 112 H 01/13/25 06:05: POC Glucose 142 H 01/13/25 07:06: POC Glucose 138 H 01/13/25 08:06: POC Glucose 119 H 01/13/25 08:07: Sodium 138, Potassium 3.5, Chloride 106, Carbon Dioxide 20.1 L, Anion Gap 11, BUN 2 L, Creatinine 0.49 L, Estim Creat Clear Calc 142.88, Est GFR (MDRD) Non-Af 126, BUN/Creatinine Ratio 5.1 L, Glucose 118 H, Calcium 7.8 D/C Instructions Discharge Diet: 1800 Calorie Control Diet May resume sexual activity in: No Restrictions Weight Bearing Status: Weight bearing as tolerated Call your doctor if you observe: - (Recurrent elevated blood sugars (uncontrolled), recurrent DKA type symptoms (shortness of breath, stomach discomfort, increased thirst/urination)) DC O2, CPAP, BIPAP Needs Home O2 Discharge instructions: No Meaningful Use Info Meaningful Use Meaningful Use Diagnoses (Choose all that apply): None applicable Ischemic Stroke Statin Dosing Therapy Reference: STATIN DOSE THERAPY REFERENCE: * Patients > 75 years receive moderate or high dose statin therapy. * Patients 75 years or YOUNGER should receive HIGH intensity statin dose unless contraindicated. You will be required to document reason for non-treatment if statin daily dose does not meet guidelines. HIGH DOSE STATIN THERAPY DAILY Atorvastatin > than or = to 40 mg Rosuvastatin > than or = to 20 mg Amlodipine + Atorvastatin > than or = to 2.5/40 mg Ezetimibe + Simvastatin 10/80 mg Simvastatin 80mg Discharge Plan Admission Admit Date/Time: 01/11/25 22:21 Primary Reason for Your Visit: DKA w/ Diabetes mellitus type I, Low mag/phos/k Attending Provider: Dian Galan Primary Care Provider: Meena Flowers Consulting Providers: Andrew Cruz Instructions Patient Instructions: Ketoacidosis Ch, Diabetes: Meal Planning, Diabetes- Know Your Goal Numbers Additional Instructions / Restrictions: ADDITIONAL DIAGNOSES/INSTRUCTIONS: #1. DKA w/ Diabetes mellitus type I: --Maintained on insulin drip initially with serial BMP assessments for IV fluid change needs and electrolyte repletion. --Magnesium, potassium, phosphorus levels monitored and repleted as needed. Please have repeat levels obtained outpatient upon follow-up with your primary care physician to assure appropriate. --01/13/2025 early a.m. additional bicarb amp x 2 administered. --01/13/25 weight AM anion gap closed x 2 and bicarb improved thus patient transitioned to home SC regimen w/ overlap on drip with diet initiation and transition to Accu-Cheks with insulin sliding scale and home scheduled sliding scale regimen additionally. --Nutrition consulted for education and teaching with encouraged diet and insulin regimen compliance. --Hemoglobin A1c 10.1%, not markedly improved from her most recent noted 09/30/24 hemoglobin A1c 10.2%. --Please follow-up with your Primary care physician and also establish with Dr. Kaiser Endocrinology. #2. Chronic Kidney Disease Stage IIIa per chart reporting; however, GFR seems to vacillate and currently greater than 100 thus uncertain if this is a true diagnosis: --Admission BUN/Cr 5/0.71, GFR 114, repeat level 01/12/25 BUN/creatinine 5/0.71 on repeat given serial BMP, baseline renal function 0.6-0.8 primarily. --01/13/2025 BUN/creatinine 3/0.51, GFR 125, continue to monitor level outpatient and assure that if onset of chronic disease early referral to nephrology is made. Discharge Orders/Prescriptions Prescriptions: New nicotine 14 mg/24 hr Patch 24 Hour 14 mg transdermal DAILY 14 Days Qty: 14 0RF Rx Instructions: Please transition to 7 mg patch following w/ PCP. Continued insulin aspart U-100 [Novolog FlexPen U-100 Insulin] 100 unit/mL (3 mL) insulin pen See Protocol SUBCUT TID PRN (Reason: Hyperglycemia) Protocol: 6. Sliding Scale Insulin Custom Condition: mg/dl range Dose/Route: Number of Units Condition: 150-199 Dose/Route: 2 Condition: 200-250 Dose/Route: 4 Condition: 251-300 Dose/Route: 6 Condition: 301-349 Dose/Route: 8 Condition: 350-399 Dose/Route: 10 Condition: 400+ Dose/Route: 12 Protocol Text: Custom Sliding Scale insulin glargine-yfgn 100 unit/mL (3 mL) Insulin Pen 24 unit subcut BID potassium chloride 10 mEq capsule, extended release 10 meq PO BID Referrals / Follow Up: Meena Flowers DO [Primary Care Provider] - (Please follow-up with PCP within 3-5 days to review admission.) Altaf Kaiser MD [Med Staff - Courtesy Staff] - (Please contact office to establish. Please take first open visit, ideally within 1-4 weeks.) Disposition Disposition (needs filled in before D/C Order can be placed): Home, Self Care Charges/Coding Visit Charges Inpatient E&M: 98336 Disch Hosp >30min
--- NOTE | 2025-01-13 14:07 | CASEMGMT ---
Pt has an order for DC placed. Dr Galan places a referral for the pt to follow up with Endocrinology. pathology secretary/transcriptionist notified and is calling to set the pt up with a f/u appt with Endocrinology. No further needs identified.
[2025-01-13 15:54] LABS: Magnesium 1.8 mg/dL (1.5-2.2)
[2025-01-13] MEDS: Potassium Chloride Oral Tablet 10 MEQ PO (16:39)
[2025-01-13] MEDS: Na Biphos/Potassium Phosphate PACKET 1 PACKET PO (16:39)
== END 2025-01-13 16:57 | disposition home or self-care (01) | DRG 420 ==
LOC: ED 21:41 → ICU 22:28
PROVIDERS: Hospitalist; Physician Assistant; Admitting Provider Internal Medicine; Emergency Provider Emergency Medicine; PCP Family Medicine; Visit Provider Family Medicine
DX: E10.10 Type 1 diabetes mellitus with ketoacidosis without coma (principal); E83.39 Other disorders of phosphorus metabolism; E10.22 Type 1 diabetes mellitus with diabetic chronic kidney disease; D64.9 Anemia, unspecified; E83.42 Hypomagnesemia; E66.3 Overweight; N18.31 Chronic kidney disease, stage 3a; E87.6 Hypokalemia; F17.200 Nicotine dependence, unspecified, uncomplicated; Z79.4 Long term (current) use of insulin; K21.9 Gastro-esophageal reflux disease without esophagitis; Z68.28 Body mass index [BMI] 28.0-28.9, adult; Z63.4 Disappearance and death of family member
CPT/HCPCS: 36415; 36600; 71045; 80048; 80053; 81001; 81025; 82010; 82803; 82962; 83036; 83735; 83930; 84100; 84443; 85025; 93005; 97802; 99284; A4216; J2405

== ENCOUNTER 2025-02-13 05:38 | Inpatient (IN) | payer MEDICAID, SELFPAY ==
[2025-02-13] VITALS (29 sets, daily range): BP systolic 101–149; BP diastolic 64–101; PULSE 90–143; RESP 18–28; TEMP 36.6–37.1; O2SAT 98–100; BMI 28.2; BMI 28.9
--- NOTE | 2025-02-13 05:41 | EKG12_ITS ---
Test Reason : DYSRHYTHMIA Blood Pressure : */* mmHG Vent. Rate : 128 BPM Atrial Rate : 128 BPM P-R Int : 132 ms QRS Dur : 72 ms QT Int : 294 ms P-R-T Axes : 62 14 -28 degrees QTcB Int : 429 ms Sinus tachycardia Low voltage QRS Cannot rule out Inferior infarct , age undetermined Abnormal ECG Confirmed by CAMERON JENNINGS, EMILY ([id number]), commercial production editor JUANJO COVARRUBIAS ([id number]) on 02/16/2025 1:03:15 PM Referred By: Confirmed By: EMILY BARNES MD
--- NOTE | 2025-02-13 05:48 | EX.ED.DYSGE1 ---
HPI History of Present Illness Chief Complaint: Hyperglycemia Narrative Narrative: Patient is a 34-year-old female with past medical history of tobacco use, prior kidney disease, type 1 diabetes who presents to the emergency department with concern for going into DKA she states. Patient states that around 1:00 AM she woke up and noted that she started vomiting having nausea cannot drink water she immediately vomits this up. States that this is her symptoms that she usually experiences as she is going into DKA. Patient denies any sick contacts. Patient denies any recent travels denies any history blood clots. [facility] Medical History Overweight (BMI 25.0-29.9) Tobacco abuse Diabetes mellitus type 1, uncontrolled, insulin dependent Stage 3a chronic kidney disease (CKD) Home Medications ?Medication ?Instructions ?Recorded ?Last Taken ?Type insulin aspart U-100 100 unit/mL See Protocol subcut TID PRN 02/02/22 01/11/25 History (3 mL) subcutaneous pen (Novolog Hyperglycemia FlexPen U-100 Insulin aspart) insulin glargine-yfgn 100 unit/mL 24 unit subcut BID diabete 01/11/25 01/11/25 History (3 mL) subcutaneous pen potassium chloride 10 mEq 10 meq PO BID 01/11/25 01/11/25 History capsule,extended release Allergy/AdvReac Type Severity Reaction Status Date / Time bee venom protein (honey bee) Allergy Anaphylaxis Verified 02/13/25 05:39 Family History Grandmother Diabetes Hypertension Heart disease Grandfather Diabetes Colon cancer Surgical History Hx of tonsillectomy History of partial hysterectomy Social History household members: children current occupational exposures/hazards: No Smoking Status: Light Smoker (<10/day) alcohol intake: current alcohol intake frequency: holidays/special occasions only substance use type: does not use ROS ROS ED ROS Narrative Constitutional: Denies any fevers or chills Eyes: Denies change in vision double vision blurry vision Cardiovascular: Denies chest pain complains of palpitations Respiratory: Denies coughing Abdomen: Complains of nausea and vomiting denies any abdominal pain : Denies any urinary symptoms Neurological: Denies any numbness, weakness, tingling Musculoskeletal: Denies back pain Skin: Denies any rashes or lesions EXAM Physical Exam Narrative Exam Narrative: General: Patient lying in bed resting comfortably did not appear to be in acute distress Head: Atraumatic, normocephalic Eyes: PERRL bilaterally, EOMI bilaterally, no conjunctival injection noted Neck: Soft, supple, trachea midline Cardiovascular: Patient tachycardic with a regular rhythm no murmurs gallops or rubs noted Respiratory: Clear to auscultation bilaterally Abdomen: Soft, nondistended, no tenderness palpation Extremities: +5/5 strength noted in the bilateral upper and lower extremities, radial pulses +2/4 in the bilateral upper extremities Neurological: Patient is following commands knew that she was at [facility] the year is 2024 Skin: Warm, dry, intact no rashes or lesions noted Const Vital Signs: 02/13/25 05:40 02/13/25 05:42 02/13/25 05:43 Temperature 97.9 F Temperature Source Oral Pulse Rate 142 H 143 H Respiratory Rate 24 H 23 H Respiratory Effort Respiratory Pattern Blood Pressure 149/101 H Blood Pressure Mean 117 Pulse Ox 100 100 100 Oxygen Delivery Method Room Air Room Air 02/13/25 05:45 02/13/25 05:45 02/13/25 05:46 Temperature Temperature Source Pulse Rate 141 H Respiratory Rate 21 H Respiratory Effort Normal Respiratory Pattern Normal Blood Pressure 133/95 H 133/95 H Blood Pressure Mean 107 107 Pulse Ox 100 Oxygen Delivery Method 02/13/25 06:00 02/13/25 06:15 02/13/25 06:30 Temperature Temperature Source Pulse Rate 125 H 120 H 120 H Respiratory Rate 27 H 28 H 23 H Respiratory Effort Respiratory Pattern Blood Pressure 109/77 113/73 Blood Pressure Mean 88 85 Pulse Ox 99 Oxygen Delivery Method 02/13/25 06:45 02/13/25 07:00 Temperature Temperature Source Pulse Rate 116 H 120 H Respiratory Rate 27 H 20 H Respiratory Effort Respiratory Pattern Blood Pressure 110/64 115/71 Blood Pressure Mean 78 85 Pulse Ox 99 99 Oxygen Delivery Method Room Air MDM MDM MDM Narrative Medical decision making narrative: Patient is a 34-year-old female who presents to the emergency department with a chief complaint of concern for going into DKA on the differential diagnose includes but not limited to hypoglycemia, UTI, pneumonia, diabetic ketoacidosis. Once the workup is obtained reviewed she will be reevaluated. Patient ordered 30 cc/kg bolus at 5:45 AM. Patient's CBC reviewed showed a white blood count of 15,000, hemoglobin 13.7, platelet count of 404. Patient's blood gas venous was reviewed showed pH 7.26 with a bicarb of 12. Patient's sodium was 135, potassium 4.1,, dioxide low at 7.6, anion gap of 34. Patient creatinine normal at 0.75. Patient glucose was elevated at 309 lactic acid elevated 5.2. Patient AST and ALT are 26 and 26 respectively. test is negative, urinalysis pending as well as beta hydroxybutyrate. Patient's chest x-ray reviewed by myself and by radiology showed no acute cardiopulmonary processes. Urinalysis pending. Patient will be given subcutaneous insulin 10 units as well as placed on insulin drip will discuss case with hospitalist for admission for DKA. Spoke with hospitilist Dr. Acosta who will accept the patient for admission. Patient was updated and is agreeable with this plan all questions and concerns were answered at bedside. Lab Data Labs: Laboratory Results - last 24 hr 02/13/25 02/13/25 05:43 05:50 WBC 15.7 H RBC 4.62 Hgb 13.7 Hct 43.1 MCV 93.3 MCH 29.7 MCHC 31.8 L RDW Std Deviation 52.7 H RDW Coeff of Bret 15.2 H Plt Count 404 MPV 9.8 Immature Gran % (Auto) 0.500 Neut % (Auto) 69.2 Lymph % (Auto) 23.3 [place] % (Auto) 5.7 Eos % (Auto) 0.4 Baso % (Auto) 0.9 Absolute Neuts (auto) 10.9 H Absolute Lymphs (auto) 3.67 Nucleated RBC % 0 PT 13.2 INR 1.0 APTT 27.0 Sodium 135 Potassium 4.1 Chloride 94 L Carbon Dioxide 7.6 L* Anion Gap 34 H BUN 9 Creatinine 0.75 Estim Creat Clear Calc 92.16 Est GFR (MDRD) Non-Af 106 BUN/Creatinine Ratio 11.8 Glucose 309 H Lactic Acid 5.2 H* Calcium 9.7 Total Bilirubin 0.26 AST 26 ALT 26 Alkaline Phosphatase 76 Total Protein 7.7 Albumin 4.6 Globulin 3.0 Albumin/Globulin Ratio 1.5 Serum , Qual NEGATIVE POC Glucose 304 H ABG Data ABG results: ABG 02/13/25 06:01 Specimen Type BETHANY Sample Site Not entered VBG pH 7.26 L VBG pO2 50 H VBG HCO3 12 L VBG Total CO2 12 L VBG O2 Sat (Calc) 80 H VBG Base Excess -16 L POC Mix VBG pCO2 Pt Tmp 25.7 L O2 Delivery Device Room Air Radiography Diagnostic Testing: Clinical Impression(s) from Imaging Studies Chest X-Ray 02/13/25 06:00 IMPRESSION: No acute cardiopulmonary abnormalities. Reading Location: [facility] Discharge Plan Triage Chief Complaint: Hyperglycemia ED Provider: Zoran Gastelum Dx/Rx/DC Orders Clinical Impression: DKA (diabetic ketoacidosis), Acidosis, lactic, Tachycardia Prescriptions: No Action insulin aspart U-100 [Novolog FlexPen U-100 Insulin] 100 unit/mL (3 mL) insulin pen See Protocol SUBCUT TID PRN (Reason: Hyperglycemia) Protocol: 6. Sliding Scale Insulin Custom Condition: mg/dl range Dose/Route: Number of Units Condition: 150-199 Dose/Route: 2 Condition: 200-250 Dose/Route: 4 Condition: 251-300 Dose/Route: 6 Condition: 301-349 Dose/Route: 8 Condition: 350-399 Dose/Route: 10 Condition: 400+ Dose/Route: 12 Protocol Text: Custom Sliding Scale insulin glargine-yfgn 100 unit/mL (3 mL) Insulin Pen 24 unit subcut BID potassium chloride 10 mEq capsule, extended release 10 meq PO BID Primary Care Provider: Meena Flowers Referrals: Meena Flowers DO [Primary Care Provider] - Print Language: Maltese Disposition Disposition: Acute Care Hospital [facility]
[2025-02-13] MEDS: 0.9% Normal Saline (1000mL) 1,000 ML 999 ML IV ×5 (05:56→11:52)
--- NOTE | 2025-02-13 06:00 | RAD_ITS ---
PROCEDURE: CHEST PA AND LATERAL 02/13/2025 REASON FOR EXAM: HYPERGLYCEMIA TECHNIQUE: CHEST PA AND LATERAL COMPARISON: Chest x-ray 01/11/2025. FINDINGS: Hardware: Monitor electrodes overlie the chest. Heart: No cardiomegaly. Mediastinum: Unremarkable. Lungs: Clear. RAD/Chest PA and Lateral IMPRESSION: No acute cardiopulmonary abnormalities. Reading Location: [id number]
[2025-02-13 06:02] LABS: Hematocrit 43.1 % (37-47); Hemoglobin 13.7 g/dL (12.0-15.0); Immature Granulocytes Count 0.080 X10^3/uL (0.0-0.0); Mean Corp Hgb Conc 31.8 g/dL (32-36); Mean Corpuscular Volume 93.3 fL (81-99); Mean Platelet Vol. 9.8 fl (6.2-12.0); NRBC Flagged by Analyzer 0 % (0-5); Platelet Count 404 K/mm3 (150-450); RBC Distribution Width CV 15.2 % (11.6-14.6); RBC Distribution Width SD 52.7 fl (35.1-43.9); Red Blood Count 4.62 M/mm3 (4.2-5.4); White Blood Count 15.7 K/mm3 (4.4-11.0)
[2025-02-13 06:04] LABS: SITE Not entered; VBG BASE EXCESS -16 mmol/L (-1.0-3.5); VBG PO2 50 mmHg (25-40); VBG SO2 80 % (50-70); VBG TCO2 12 mmol/L (23-33)
[2025-02-13 06:11] LABS: Prothrombin Time (Protime)PT. 13.2 SECONDS (11.7-14.9)
[2025-02-13 06:12] LABS: Partial Thromboplast Time 27.0 Seconds (24.1-36.2)
--- OUTSIDE RECORDS SUMMARY | 2025-02-13 06:18 | XMS RPT_ITS | CCD ---
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 Dian Galan Admit Provider Dr. Dian Galan Attending Provider Dr. Dian Galan Other Provider Dr. Len Coyne Attending Provider Dr. Len Coyne Other Provider Dr. Michael Acosta Other Provider Dr. Meena Flowers Primary Care Provider [phone] Risa Gatica Emergency Provider [phone] [...] JENNINGS, Dr. Maggie Castro Other Provider [phone] Anaya JENNINGS, Dr. Bryce Henson Attending Provider Anaya JENNINGS, Dr. Bryce Henson Other Provider [phone] Adama JENNINGS, Dr. Dian Johns Attending Provider Rohith JENNINGS, Dr. Reis Emergency Provider de Casa DO, Dr. Morales Admit Provider Unavail able de Casa DO, Dr. Morales Attending Provider Unav ailable de Casa , Dr. Morales Other Provider Unavail able Adama JENNINGS, Dr. Dian Johns Other Provider Andrew Cruz Consulting Unavailable Dian Galan Attending Unavailable Lionel, Meena Primary Care Unavailable Andrew Cruz Admitting Unavailable Dian Galan Consulting Unavailable LobitotsoniBryce quiroga Admitting Unavailable KotsonisBryce F Attending Unavailable LobitotsBryce vega Consulting Unavailable Malys, Meena Primary Care Unavailable Michael Acosta Attending Unavailable Michael Acosta Consulting Unavailable Koram, Maggie Gloria Admitting Unavailable Koram, Maggie Gloria Attending Unavailable Malys, Meena Primary Care Unavailable Koram, Maggie Gloria Consulting Unavailable Koram, Maggie Gloria Admitting Unavailable KotsBryce vega Attending Unavailable Tanneram, Maggie Gloria Consulting Unavailable Lionel, Meena Primary Care Unavailable Andrew Cruz Consulting Unavailable Andrew Cruz Admitting Unavailable Dian Galan Attending Unavailable Malys, Meena Primary Care Unavailable Kotsonis, Bryce Henson Admitting Unavailable Kotsonis, Bryce F Consulting Unavailable Malys, Meena Primary Care Unavailable Michael Acosta Attending Unavailable LobitotsBryce vega Attending Unavailable Kotsonis, Bryce F Consulting Unavailable Malys, Meena Primary Care Unavailable Malys, Meena Referring Unavailable Altaf Kaiser Attending Unavailable Dian Galan Attending Unavailable Andrew Cruz Attending Unavailable Allergies Allergy Classification Reported Allergen(s) Allergy Type Date of Onset Reaction(s) Facility (10 sources) bee venom protein (honey bee) Allergy to substance 02-03-2022 Anaphylaxis [facility] (1 source) bee venom protein (honey bee) Drug allergy (disorder) 01-11-2025 [facility] Repository Medications Current Medications Medication Drug Class(es) Dates Sig (Normalized) Sig (Original) Insulin Glargine-Yfgn (14 sources) Start: 05-25-2023 Insulin Glargine-Yfgn Active 24 UNIT SC WITH BREAKFAST May 25, 2023 1:00am Start: 05-25-2023 Insulin Glargi ne-Yfgn Active 24 UNIT SC WITH BREAKFAST May 25, 2023 12:00am Start: 02-03-2022 End: 05-25-2023 Insulin Glargine-Yfgn 100 un it/mL (3 mL) Insulin Pen Discontinued 25 U SC TWICE A DAY 0 0 February 03, 2022 12:00am May 25, 2023 9:22pm Start: 02-03-2022 End: 05-25-2023 Insulin Glargine-Yfgn 100 [...] Glargine-Yfgn 100 unit/mL (3 mL) Insulin Pen (10 sources) Start: 01-11-2025 Insulin Glargi ne-Yfgn 100 unit/mL (3 mL) Insulin Pen Active 24 U SC TWICE A DAY January 11, 2025 12:00am diabete Start: 04-05-2024 End: 01-11-2025 Insulin Glargine-Yfgn 100 un it/mL (3 mL) Insulin Pen Discontinued 30 U SC TWICE A DAY 0 0 April 05, 2024 12:00am January 11, 2025 10:05pm diabete Start: 04-05-2024 Insulin Glargi ne-Yfgn 100 unit/mL (3 mL) Insulin Pen Active 30 U SC TWICE A DAY 0 April 05, 2024 12:00am Start: 05-25-2023 End: 04-04-2024 Insulin Glargine-Yfgn 100 un it/mL (3 mL) Insulin Pen Discontinued 24 U SC WITH BREAKFAST May 25, 2023 1:00am April 04, 2024 10:36am HYPERGLYCEMIA Start: 05-25-2023 End: 04-04-2024 Insulin Glargine-Yfgn 100 un it/mL (3 mL) Insulin Pen Discontinued 24 U SC WITH BREAKFAST May 25, 2023 1:00am April 04, 2024 10:36am 24 hr nicotine 0.583 mg/hr transdermal system (1 source) Cholinergic Nicotinic Agonist Start: 01-13-2025 apply 1 dose transdermal route every twenty-four hours Nicotine 14 mg/24 hr Patch 24 Hour Active 14 mg TD DAILY 14 14 0 January 13, 2025 12:00am Please transition to 7 mg patch following w/ PCP. potassium chloride 10 meq extended release oral capsule (20 sources) Start: 01-11-2025 take 1 capsule by mouth twice daily Potassium Chloride 10 mEq capsule, extended release Active 10 meq PO TWICE A DAY January 11, 2025 12:00am On Hold: Resume on 01/16/25. Hold potassium supplementation until neutraphos supplementation completed. Start: 05-25-2023 End: 09-26-2024 take 2 tablets by mouth twice daily Potassium Chloride 10 mEq tablet extended release Discontinued 20 meq PO TWICE A DAY May 25, 2023 1:00am September 26, 2024 12:14pm HYPOKALEMIA Start: 05-25-2023 take 20 mEq by mouth [...] 40 meq PO TWICE DAILY WITH MEALS 28 0 June 10, 2021 1:00am February 02, 2022 7:39pm Potassium, Sodium Phosphates 280-160-250 mg Powder In Packet (1 source) Start: 01-13-2025 Potassium, Sod ium Phosphates 280-160-250 mg Powder In Packet Active 1 NMA PO 4 TIMES DAILY 8 2 0 January 13, 2025 12:00am Completed/Discontinued Medications Medication Drug Class(es) Dates Sig (Normalized) Sig (Original) 3 ml insulin aspart, human 100 unt/ml pen injector (20 sources) Insulin Analog Start: 05-25-2023 End: 04-04-2024 Insulin Aspart U-100 (Novolog Flexpen U-100 Insulin) 100 unit/mL (3 mL) insulin pen Discontinued 15 U SC AT BEDTIME May 25, 2023 1:00am April 04, 2024 10:35am HYPERGLYCEMIA Start: 02-03-2022 End: 05-25-2023 Insulin Aspart U-100 (Novolo g Flexpen U-100 Insulin) 100 unit/mL (3 mL) insulin pen Discontinued 10 U SC THREE TIMES A DAY 15 0 February 03, 2022 12:00am May 25, [...] ml insulin glargine 100 unt/ml pen injector (14 sources) Insulin Analog Start: 04-04-2024 End: 04-05-2024 Insulin Glargine (Lantus Solostar U-100 Insulin) 100 unit/mL (3 mL) insulin pen Discontinued 24 U SC TWICE A DAY April 04, 2024 12:00am April 05, 2024 1:36pm Start: 06-10-2021 End: 02-03-2022 Insulin Glargine (Basaglar K wikpen U-100 Insulin) 100 unit/mL (3 mL) insulin pen Discontinued 15 U SC TWICE A DAY 15 0 June 10, 2021 1:00am February 03, 2022 2:52pm sulfamethoxazole 800 mg / trimethoprim 160 mg oral tablet (5 sources) Dihydrofolate Reductase Inhibitor Antibacterial, Sulfonamide Antimicrobial Start: 09-24-2023 End: 04-04-2024 Sulfamethoxazole-Trimethopri m (Bactrim Ds) 800-160 mg tablet Discontinued 1 {tbl} PO TWICE A DAY 6 0 September 24, 2023 12:00am April 04, 2024 10:36am Problems Problem Classification Problem Date Documented Date Episodic/Chronic Acute and unspecified renal failure (10 sources) Injury of kidney; Translations: [Acute kidney failure, unspecified] 06-18-2021 Episodic Adjustment disorders (3 sources) Stress; Translations: [Reaction to severe stress, unspecified] Onset: 01-19-2025 01-12-2025 Chronic Cardiac dysrhythmias (9 sources) Palpitations; Translations: [Palpitations] Onset: 01-19-2025 01-11-2025 Episodic Diabetes mellitus with complications (20 sources) Type 1 diabetes mellitus uncontrolled; Translations: [Uncontrolled insulin dependent type 1 diabetes mellitus] Onset: 01-19-2025 Chronic Diabetes mellitus without complication (5 sources) Hyperglycemia; Translations: [Hyperglycemia, unspecified] 09-24-2023 Episodic Diseases of white blood cells (15 sources) Leukocytosis; Translations: [Elevated white blood cell count, unspecified] Onset: 01-19-2025 06-18-2021 Chronic Fluid and electrolyte disorders (11 sources) Hyperkalemia; Translations: [Hyperkalemia] Episodic Inflammatory diseases of female pelvic organs (20 sources) Abscess of left Bartholin's gland; Translations: [Abscess of Bartholin's gland] 11-16-2020 Episodic Nausea and vomiting (20 sources) Nausea and vomiting; Translations: [Nausea with vomiting, unspecified] Onset: 01-19-2025 Episodic Other female genital disorders (10 sources) Edema of vulva; Translations: [Other specified noninflammatory disorders of vulva and perineum] 06-18-2021 Episodic Other lower respiratory disease (4 sources) Dyspnea; Translations: [Shortness of breath] 01-11-2025 Episodic Other lower respiratory disease (1 source) Shortness of breath; Translations: [Shortness of breath] Onset: 01-19-2025 Episodic Other nutritional; endocrine; and metabolic disorders (10 sources) Hyperammonemia; Translations: [Disorder of urea cycle metabolism, unspecified] 06-18-2021 Chronic Other nutritional; endocrine; and metabolic disorders (4 sources) Body mass index 25-29 - overweight; Translations: [Overweight] 01-11-2025 Episodic Other nutritional; endocrine; and metabolic disorders (1 source) Overweight; Translations: [Overweight] Onset: 01-19-2025 Episodic Residual codes; unclassified (9 sources) Tobacco user; Translations: [Tobacco use] 05-25-2023 Episodic Residual codes; unclassified (2 sources) Tobacco use; Translations: [Tobacco use disorder] Onset: 01-19-2025 05-26-2023 Episodic Respiratory failure; insufficiency; arrest (adult) (10 sources) Acute respiratory failure; Translations: [Acute respiratory failure, unspecified whether with hypoxia or hypercapnia] 06-18-2021 Episodic Sexually transmitted infections (not HIV or hepatitis) (10 sources) Gonococcal Bartholin's gland abscess; Translations: [Gonococcal infection of lower genitourinary tract with periurethral and accessory gland abscess] 11-16-2020 Episodic Skin and subcutaneous tissue infections (10 sources) Abscess; Translations: [Cutaneous abscess, unspecified] 11-14-2020 Episodic Unclassified (1 source) Please follow-up with PCP within 3-5 days to review admission. Unclassified (1 source) Please contact office to establish. Please take first open visit, ideally within 1-4 weeks. Urinary tract infections (5 sources) Urinary tract infectious disease; Translations: [Urinary tract infection, site not specified] 09-24-2023 Episodic Results Test Name Value Interpretation Reference Range Facility CBC W/Diff, Automatedon 07 Absolute Neut Normal 2.0-7.7 [facility] Comment on above: Result Comment: Canc elled via OM: Order cancelled - Patient discharged Performed By: #### L 100.0100 ####[facility] [address] [place], [address] HCT Normal 37-47 [facility] Comment on above: Result Comment: Canc elled via OM: Order cancelled - Patient discharged Performed By: #### L 100.0100 ####[facility] [address] [place], [address] HGB Normal 12.0-15.0 [facility] Comment on above: Result Comment: Canc elled via OM: Order cancelled - Patient discharged Performed By: #### L 100.0100 ####[facility] [address] [place], [address] MCH Normal 27.0-32.0 [facility] Comment on above: Result Comment: Canc elled via OM: Order cancelled - Patient discharged Performed By: #### L 100.0100 ####[facility] [address] [place], [address] MCHC Normal 32-36 [facility] Comment on above: Result Comment: Canc elled via OM: Order cancelled - Patient discharged Performed By: #### L 100.0100 ####[facility] [address] [place], [address] MCV Normal 81-99 [facility] Comment on above: Result Comment: Canc elled via OM: Order cancelled - Patient discharged Performed By: #### L 100.0100 ####[facility] [address] [place], [address] NEUT% Normal 47-70 [facility] Comment on above: Result Comment: Canc elled via OM: Order cancelled - Patient discharged Performed By: #### L 100.0100 ####[facility] [address] [place], [address] PLT Normal 150-450 [facility] Comment on above: Result Comment: Canc elled via OM: Order cancelled - Patient discharged Performed By: #### L 100.0100 ####[facility] [address] [place], [address] RBC Normal 4.2-5.4 [facility] Comment on above: Result Comment: Canc elled via OM: Order cancelled - Patient discharged Performed By: #### L 100.0100 ####[facility] [address] [place], [address] RDW CV Normal 11.6-14.6 [facility] Comment on above: Result Comment: Canc elled via OM: Order cancelled - Patient discharged Performed By: #### L 100.0100 ####[facility] [address] [place], [address] RDW SD Normal 35.1-43.9 [facility] Comment on above: Result Comment: Canc elled via OM: Order cancelled - Patient discharged Performed By: #### L 100.0100 ####[facility] [address] [place], [address] WBC Normal 4.4-11.0 [facility] Comment on above: Result Comment: Canc elled via OM: Order cancelled - Patient discharged Performed By: #### L 100.0100 ####[facility] [address] [place], [address] CBC W/Diff, Automatedon 07-0 9-2024 Absolute Neut Normal 2.0-7.7 [facility] Comment on above: Result Comment: Canc elled via OM: Order cancelled - Patient discharged Performed By: #### L 100.0100 ####[facility] [address] [place], [address] HCT Normal 37-47 [facility] Comment on above: Result Comment: Canc elled via OM: Order cancelled - Patient discharged Performed By: #### L 100.0100 ####[facility] [address] [place], [address] HGB Normal 12.0-15.0 [facility] Comment on above: Result Comment: Canc elled via OM: Order cancelled - Patient discharged Performed By: #### L 100.0100 ####[facility] [address] [place], [address] MCH Normal 27.0-32.0 [facility] Comment on above: Result Comment: Canc elled via OM: Order cancelled - Patient discharged Performed By: #### L 100.0100 ####[facility] [address] [place], [address] MCHC Normal 32-36 [facility] Comment on above: Result Comment: Canc elled via OM: Order cancelled - Patient discharged Performed By: #### L 100.0100 ####[facility] [address] [place], [address] MCV Normal 81-99 [facility] Comment on above: Result Comment: Canc elled via OM: Order cancelled - Patient discharged Performed By: #### L 100.0100 ####[facility] [address] [place], [address] NEUT% Normal 47-70 [facility] Comment on above: Result Comment: Canc elled via OM: Order cancelled - Patient discharged Performed By: #### L 100.0100 ####[facility] [address] [place], [address] PLT Normal 150-450 [facility] Comment on above: Result Comment: Canc elled via OM: Order cancelled - Patient discharged Performed By: #### L 100.0100 ####[facility] [address] [place], [address] RBC Normal 4.2-5.4 [facility] Comment on above: Result Comment: Canc elled via OM: Order cancelled - Patient discharged Performed By: #### L 100.0100 ####[facility] [address] [place], [address] RDW CV Normal 11.6-14.6 [facility] Comment on above: Result Comment: Canc elled via OM: Order cancelled - Patient discharged Performed By: #### L 100.0100 ####[facility] [address] [place], [address] RDW SD Normal 35.1-43.9 [facility] Comment on above: Result Comment: Canc elled via OM: Order cancelled - Patient discharged Performed By: #### L 100.0100 ####[facility] [address] [place], [address] WBC Normal 4.4-11.0 [facility] Comment on above: Result Comment: Canc elled via OM: Order cancelled - Patient discharged Performed By: #### L 100.0100 ####[facility] [address] [place], [address] Absolute lymphocyte countOrd ered By: Dian Galan on 01-13-2025 Lymphocytes Auto (Unsp spec) [#/Vol] 2.34 10*3/uL 0.83-4.51 [facility] Absolute neutrophil countOrd ered By: Dian Adama on 01-13-2025 Neutrophils (Bld) [#/Vol] 3.3 10*3/uL 2.0-7.7 [facility] Anion gap in Serum or Plasma Ordered By: Dian Adama on 01-13-2025 Anion gap [Moles/Vol] 11 mmol/L 5-15 [facility] Automated lymphocyte count a s percentage of total leukocytesOrdered By: Dian Adama on 01-13-2025 Lymphocytes/100 WBC Auto (Unsp spec) 36.5 % 19-41 [facility] BUN/creatinine ratioOrdered By: Dian Adama on 01-13-2025 Urea nitrogen/Creatinine [Mass ratio] 5.1 mg/mg Low 10-20 [facility] Basic Metabolic Profile (BMP )on 01-13-2025 BUN Normal 4-19 [facility] Comment on above: Result Comment: Canc elled via OM: Order cancelled - Patient discharged Performed By: #### L 500.2500 ####[facility] [address] [place], [address] Result Comment: PT D ISCHARGED Result Comment: DUPL ICATE SEE C33 BUN/CRE Normal 10-20 [facility] Comment on above: Result Comment: Canc elled via OM: Order cancelled - Patient discharged Performed By: #### L 500.2500 ####[facility] [address] [facility] [address] Result Comment: PT D ISCHARGED Result Comment: DUPL ICATE SEE C33 Calcium Normal 7.6-11.0 [facility] Comment on above: Result Comment: Canc elled via OM: Order cancelled - Patient discharged Performed By: #### L 500.2500 ####[facility] [address] [facility] [address] Result Comment: PT D ISCHARGED Result Comment: DUPL ICATE SEE C33 CL Normal 98-108 [facility] Comment on above: Result Comment: Canc elled via OM: Order cancelled - Patient discharged Performed By: #### L 500.2500 ####[facility] [address] [place], [address] Result Comment: PT D ISCHARGED Result Comment: DUPL ICATE SEE C33 CO2 Normal 21.0-32.0 [facility] Comment on above: Result Comment: Canc elled via OM: Order cancelled - Patient discharged Performed By: #### L 500.2500 ####[facility] [address] [facility] [address] Result Comment: PT D ISCHARGED Result Comment: DUPL ICATE SEE C33 CREAT,SERUM Normal 0.70-1.20 [facility] Comment on above: Result Comment: Canc elled via OM: Order cancelled - Patient discharged Performed By: #### L 500.2500 ####[facility] [address] [place], [address] Result Comment: PT D ISCHARGED Result Comment: DUPL ICATE SEE C33 eGFR Normal >60 [facility] Comment on above: Result Comment: Canc elled via OM: Order cancelled - Patient discharged Performed By: #### L 500.2500 ####[facility] [address] [place], [address] Result Comment: PT D ISCHARGED Result Comment: DUPL ICATE SEE C33 GAP Normal 5-15 [facility] Comment on above: Result Comment: Canc elled via OM: Order cancelled - Patient discharged Performed By: #### L 500.2500 ####[facility] [address] [place], [address] Result Comment: PT D ISCHARGED Result Comment: DUPL ICATE SEE C33 GLU Normal 70-99 [facility] Comment on above: Result Comment: Canc elled via OM: Order cancelled - Patient discharged Performed By: #### L 500.2500 ####[facility] [address] [place], [address] Result Comment: PT D ISCHARGED Result Comment: DUPL ICATE SEE C33 Potassium Normal 3.3-5.1 [facility] Comment on above: Result Comment: Canc elled via OM: Order cancelled - Patient discharged Performed By: #### L 500.2500 ####[facility] [address] [place], [address] Result Comment: PT D ISCHARGED Result Comment: DUPL ICATE SEE C33 Basic Metabolic Profile (BMP) Normal 133-145 [facility] Comment on above: Result Comment: Canc elled via OM: Order cancelled - Patient discharged Performed By: #### L 500.2500 ####[facility] [address] [place], [address] Result Comment: PT D ISCHARGED Result Comment: DUPL ICATE SEE C33 BUN/CRE 5.1 RATIO Low 10-20 [facility] Comment on above: Performed By: #### L 500.2500 ####[facility] [address] [place], [address] Calcium [Mass/Vol] 7.8 mg/dL Normal 7.6-11.0 [facility] Comment on above: Performed By: #### L 500.2500 ####[facility] [address] [place], [address] Chloride [Moles/Vol] 106 mmol/L Normal 98-108 [facility] Comment on above: Performed By: #### L 500.2500 ####[facility] [address] [place], [address] CO2 [Moles/Vol] 20.1 mmol/L Low 21.0-32.0 [facility] Comment on above: Performed By: #### L 500.2500 ####[facility] [address] [place], [address] Creatinine [Mass/Vol] 0.49 mg/dL Low 0.70-1.20 [facility] Comment on above: Performed By: #### L 500.2500 ####[facility] [address] [place], [address] ECRCL 142.88 ml/min Normal 50-250 [facility] Comment on above: Performed By: #### L 500.2500 ####[facility] [address] [place], [address] GAP 11 Normal 5-15 [facility] Comment on above: Performed By: #### L 500.2500 ####[facility] [address] [place], [address] GFR/1.73 sq M.predicted among non-blacks MDRD (S/P/Bld) [Vol rate/Area] 126 mL/min/{1.73_m2} Normal >60 [facility] Comment on above: Result Comment: mL/m in/1.73m2 CKD-EPI Creatinine Equation (2020) Performed By: #### L 500.2500 ####[facility] [address] [place], [address] Glucose [Mass/Vol] 118 mg/dL High 70-99 [facility] Comment on above: Performed By: #### L 500.2500 ####[facility] [address] [place], [address] Potassium [Moles/Vol] 3.5 mmol/L Normal 3.3-5.1 [facility] Comment on above: Result Comment: Hemo lysis present, Results??could be affected.?? Performed By: #### L 500.2500 ####[facility] [address] [place], [address] Sodium [Moles/Vol] 138 mmol/L Normal 133-145 [facility] Comment on above: Performed By: #### L 500.2500 ####[facility] [address] [place], [address] Urea nitrogen [Mass/Vol] 2 mg/dL Low 4-19 [facility] Comment on above: Performed By: #### L 500.2500 ####[facility] [address] [place], [address] BUN/CRE 6.6 RATIO Low 10-20 [facility] Comment on above: Order Comment: Call MD with results STAT Performed By: #### L 500.2500 ####[facility] [address] [place], [address] Calcium [Mass/Vol] 7.9 mg/dL Normal 7.6-11.0 [facility] Comment on above: Order Comment: Call MD with results STAT Performed By: #### L 500.2500 ####[facility] [address] [place], [address] Chloride [Moles/Vol] 107 mmol/L Normal 98-108 [facility] Comment on above: Order Comment: Call MD with results STAT Performed By: #### L 500.2500 ####[facility] [address] [place], [address] CO2 [Moles/Vol] 14.5 mmol/L Low 21.0-32.0 [facility] Comment on above: Order Comment: Call MD with results STAT Performed By: #### L 500.2500 ####[facility] [address] [place], [address] Creatinine [Mass/Vol] 0.50 mg/dL Low 0.70-1.20 [facility] Comment on above: Order Comment: Call MD with results STAT Performed By: #### L 500.2500 ####[facility] [address] [place], [address] ECRCL 139.92 ml/min Normal 50-250 [facility] Comment on above: Order Comment: Call MD with results STAT Performed By: #### L 500.2500 ####[facility] [address] [place], [address] GAP 13 Normal 5-15 [facility] Comment on above: Order Comment: Call MD with results STAT Performed By: #### L 500.2500 ####[facility] [address] [place], [address] GFR/1.73 sq M.predicted among non-blacks MDRD (S/P/Bld) [Vol rate/Area] 125 mL/min/{1.73_m2} Normal >60 [facility] Comment on above: Order Comment: Call MD with results STAT Result Comment: mL/m in/1.73m2 CKD-EPI Creatinine Equation (2020) Performed By: #### L 500.2500 ####[facility] [address] [place], [address] Glucose [Mass/Vol] 136 mg/dL High 70-99 [facility] Comment on above: Order Comment: Call MD with results STAT Performed By: #### L 500.2500 ####[facility] [address] [place], [address] Potassium [Moles/Vol] 3.0 mmol/L Low 3.3-5.1 [facility] Comment on above: Order Comment: Call MD with results STAT Performed By: #### L 500.2500 ####[facility] [address] [place], [address] Sodium [Moles/Vol] 135 mmol/L Normal 133-145 [facility] Comment on above: Order Comment: Call MD with results STAT Performed By: #### L 500.2500 ####[facility] [facility] [address] [place], [address] Urea nitrogen [Mass/Vol] 3 mg/dL Low 4-19 [facility] Comment on above: Order Comment: Call MD with results STAT Performed By: #### L 500.2500 ####[facility] [address] [place], [address] Basophil percentageOrdered B y: Dian White on 01-13-2025 Basophils/100 WBC (Bld) 0.8 % 0-1 [facility] Bedside Glucoseon 01-13-2025 FINGERSTICK GLU 138 mg/dL High 74-106 [facility] Comment on above: Result Comment: KAZ GEMENT OF PATIENT CARE PER NURSING PROTOCOL Performed By: #### L 501.080 ####[facility] [address] [place], [address] FINGERSTICK GLU 119 mg/dL High 74-106 [facility] Comment on above: Result Comment: KAZ GEMENT OF PATIENT CARE PER NURSING PROTOCOL Performed By: #### L 501.080 ####[facility] [address] [place], [address] FINGERSTICK GLU 142 mg/dL High 74-106 [facility] Comment on above: Result Comment: KAZ GEMENT OF PATIENT CARE PER NURSING PROTOCOL Performed By: #### L 501.080 ####[facility] [address] [place], [address] FINGERSTICK GLU 112 mg/dL High 74-106 [facility] Comment on above: Result Comment: KAZ GEMENT OF PATIENT CARE PER NURSING PROTOCOL Performed By: #### L 501.080 ####[facility] [address] [place], [address] FINGERSTICK GLU 97 mg/dL Normal 74-106 [facility] Comment on above: Result Comment: KAZ GEMENT OF PATIENT CARE PER NURSING PROTOCOL Performed By: #### L 501.080 ####[facility] [address] [place], [address] FINGERSTICK GLU 93 mg/dL Normal 74-106 [facility] Comment on above: Result Comment: KAZ GEMENT OF PATIENT CARE PER NURSING PROTOCOL Performed By: #### L 501.080 ####[facility] [address] [place], [address] FINGERSTICK GLU 105 mg/dL Normal 74-106 [facility] Comment on above: Result Comment: KAZ GEMENT OF PATIENT CARE PER NURSING PROTOCOL Performed By: #### L 501.080 ####[facility] [address] [place], [address] FINGERSTICK GLU 113 mg/dL High 74-106 [facility] Comment on above: Result Comment: KAZ GEMENT OF PATIENT CARE PER NURSING PROTOCOL Performed By: #### L 501.080 ####[facility] [address] [place], [address] FINGERSTICK GLU 148 mg/dL High 74-106 [facility] Comment on above: Result Comment: KAZ GEMENT OF PATIENT CARE PER NURSING PROTOCOL Performed By: #### L 501.080 ####[facility] [address] [place], [address] Beta-Hydroxbytyrateon 2024 BETA-HYDROXYBUT 2.5 mmol/L High 0.0-0.3 [facility] Comment on above: Performed By: #### L 501.6901 ####[facility] [address] [place], [address] Beta-hydroxybutyrateOrdered By: Tanner Jackson on 01-13-2025 Beta hydroxybutyrate [Mass/Vol] 2.5 mmol/L High 0.0-0.3 [facility] Bilirubin, totalOrdered By: Dian Galan on 01-13-2025 Bilirubin [Mass/Vol] 0.46 mg/dL 0.00-1.30 [facility] CBC W/Diff, Automatedon Absolute Lymph 2.34 X10 3/uL Normal 0.83-4.51 [facility] Comment on above: Performed By: #### L 100.0100, L501.2300, L501.5200, L500.4050 ####[facility] [address] [place], [address] Absolute Neut 3.3 X10 3/uL Normal 2.0-7.7 [facility] Comment on above: Performed By: #### L 100.0100, L501.2300, L501.5200, L500.4050 ####[facility] [address] [place], [address] Basophils/100 WBC (Bld) 0.8 % Normal 0-1 [facility] Comment on above: Performed By: #### L 100.0100, L501.2300, L501.5200, L500.4050 ####[facility] [address] [place], [address] Eosinophils/100 WBC (Bld) 1.4 % Normal 0-5 [facility] Comment on above: Performed By: #### L 100.0100, L501.2300, L501.5200, L500.4050 ####[facility] [address] [place], [address] Erythrocyte distribution width (RBC) [Ratio] 14.6 % Normal 11.6-14.6 [facility] Comment on above: Performed By: #### L 100.0100, L501.2300, L501.5200, L500.4050 ####[facility] [address] [place], [address] Hematocrit (Bld) [Volume fraction] 35.2 % Low 37-47 [facility] Comment on above: Performed By: #### L 100.0100, L501.2300, L501.5200, L500.4050 ####[facility] [address] [place], [address] Hemoglobin (Bld) [Mass/Vol] 11.5 g/dL Low 12.0-15.0 [facility] Comment on above: Performed By: #### L 100.0100, L501.2300, L501.5200, L500.4050 ####[facility] [address] [place], [address] IG% 0.200 Normal 0.0-0.9 [facility] Comment on above: Result Comment: IG% - Immature Granulocytes (promyelocytes, myelocytes andmetamyelocytes) > 1% indicates that a LEFT SHIFT is Present. Performed By: #### L 100.0100, L501.2300, L501.5200, L500.4050 ####[facility] [address] [place], [address] Lymphocytes/100 WBC (Bld) 36.5 % Normal 19-41 [facility] Comment on above: Performed By: #### L 100.0100, L501.2300, L501.5200, L500.4050 ####[facility] [address] [place], [address] MCH (RBC) [Entitic mass] 29.2 pg Normal 27.0-32.0 [facility] Comment on above: Performed By: #### L 100.0100, L501.2300, L501.5200, L500.4050 ####[facility] [address] [place], [address] MCHC (RBC) [Mass/Vol] 32.7 g/dL Normal 32-36 [facility] Comment on above: Performed By: #### L 100.0100, L501.2300, L501.5200, L500.4050 ####[facility] [address] [place], [address] MCV (RBC) [Entitic vol] 89.3 fL Normal 81-99 [facility] Comment on above: Performed By: #### L 100.0100, L501.2300, L501.5200, L500.4050 ####[facility] [address] [place], [address] Monocytes/100 WBC (Bld) 9.7 % Normal 0-10 [facility] Comment on above: Performed By: #### L 100.0100, L501.2300, L501.5200, L500.4050 ####[facility] [address] [place], [address] Neutrophils/100 WBC (Bld) 51.4 % Normal 47-70 [facility] Comment on above: Performed By: #### L 100.0100, L501.2300, L501.5200, L500.4050 ####[facility] [address] [place], [address] Nucleated RBC (Bld) [#/Vol] 0 10*3/uL Normal 0-5 [facility] Comment on above: Performed By: #### L 100.0100, L501.2300, L501.5200, L500.4050 ####[facility] [address] [place], [address] Platelet mean volume (Bld) [Entitic vol] 9.5 fL Normal 6.2-12.0 [facility] Comment on above: Performed By: #### L 100.0100, L501.2300, L501.5200, L500.4050 ####[facility] [address] [place], [address] Platelets (Bld) [#/Vol] 264 10*3/uL Normal 150-450 [facility] Comment on above: Performed By: #### L 100.0100, L501.2300, L501.5200, L500.4050 ####[facility] [address] [place], [address] RBC (Bld) [#/Vol] 3.94 10*6/uL Low 4.2-5.4 [facility] Comment on above: Performed By: #### L 100.0100, L501.2300, L501.5200, L500.4050 ####[facility] [address] [place], [address] RDW SD 47.9 fl High 35.1-43.9 [facility] Comment on above: Performed By: #### L 100.0100, L501.2300, L501.5200, L500.4050 ####[facility] [address] [place], [address] WBC (Bld) [#/Vol] 6.4 10*3/uL Normal 4.4-11.0 [facility] Comment on above: Performed By: #### L 100.0100, L501.2300, L501.5200, L500.4050 ####[facility] [address] [place], [address] Carbon dioxide, total [Moles /volume] in Central venous bloodOrdered By: Dian Galan on 01-13-2025 CO2 [Moles/Vol] 20.1 mmol/L Low 21.0-32.0 [facility] Chloride assayOrdered By: Nia anam Galan on 01-13-2025 Chloride [Moles/Vol] 106 mmol/L 98-108 [facility] Comprehensive Metabolic Prof ilon 01-13-2025 Albumin [Mass/Vol] 3.4 g/dL Low 3.5-5.0 [facility] Comment on above: Order Comment: Comme nts: May add to ED labsComments: may add to ED labs Performed By: #### L 100.0100, L501.2300, L501.5200, L500.4050 ####[facility] [address] [place], [address] Albumin/Globulin [Mass ratio] 1.7 {ratio} Normal 0.9-2.4 [facility] Comment on above: Order Comment: Comme nts: May add to ED labsComments: may add to ED labs Performed By: #### L 100.0100, L501.2300, L501.5200, L500.4050 ####[facility] [address] [place], [address] ALK PHOS 44 U/L Normal 35-104 [facility] Comment on above: Order Comment: Comme nts: May add to ED labsComments: may add to ED labs Performed By: #### L 100.0100, L501.2300, L501.5200, L500.4050 ####[facility] [address] [place], [address] ALT [Catalytic activity/Vol] 24 U/L Normal <=34 [facility] Comment on above: Order Comment: Comme nts: May add to ED labsComments: may add to ED labs Performed By: #### L 100.0100, L501.2300, L501.5200, L500.4050 ####[facility] [address] [place], [address] AST [Catalytic activity/Vol] 25 U/L Normal <=31 [facility] Comment on above: Order Comment: Comme nts: May add to ED labsComments: may add to ED labs Performed By: #### L 100.0100, L501.2300, L501.5200, L500.4050 ####[facility] [address] [place], [address] Bilirubin [Mass/Vol] 0.46 mg/dL Normal 0.00-1.30 [facility] Comment on above: Order Comment: Comme nts: May add to ED labsComments: may add to ED labs Performed By: #### L 100.0100, L501.2300, L501.5200, L500.4050 ####[facility] [address] [place], [address] BUN/CRE 5.3 RATIO Low 10-20 [facility] Comment on above: Order Comment: Comme nts: May add to ED labsComments: may add to ED labs Performed By: #### L 100.0100, L501.2300, L501.5200, L500.4050 ####[facility] [address] [place], [address] Calcium [Mass/Vol] 8.0 mg/dL Normal 7.6-11.0 [facility] Comment on above: Order Comment: Comme nts: May add to ED labsComments: may add to ED labs Performed By: #### L 100.0100, L501.2300, L501.5200, L500.4050 ####[facility] [address] [place], [address] Chloride [Moles/Vol] 108 mmol/L Normal 98-108 [facility] Comment on above: Order Comment: Comme nts: May add to ED labsComments: may add to ED labs Performed By: #### L 100.0100, L501.2300, L501.5200, L500.4050 ####[facility] [address] [place], [address] CO2 [Moles/Vol] 14.8 mmol/L Low 21.0-32.0 [facility] Comment on above: Order Comment: Comme nts: May add to ED labsComments: may add to ED labs Performed By: #### L 100.0100, L501.2300, L501.5200, L500.4050 ####[facility] [address] [place], [address] Creatinine [Mass/Vol] 0.51 mg/dL Low 0.70-1.20 [facility] Comment on above: Order Comment: Comme nts: May add to ED labsComments: may add to ED labs Performed By: #### L 100.0100, L501.2300, L501.5200, L500.4050 ####[facility] [address] [place], [address] ECRCL 137.18 ml/min Normal 50-250 [facility] Comment on above: Order Comment: Comme nts: May add to ED labsComments: may add to ED labs Performed By: #### L 100.0100, L501.2300, L501.5200, L500.4050 ####[facility] [address] [place], [address] GAP 13 Normal 5-15 [facility] Comment on above: Order Comment: Comme nts: May add to ED labsComments: may add to ED labs Performed By: #### L 100.0100, L501.2300, L501.5200, L500.4050 ####[facility] [address] [place], [address] GFR/1.73 sq M.predicted among non-blacks MDRD (S/P/Bld) [Vol rate/Area] 125 mL/min/{1.73_m2} Normal >60 [facility] Comment on above: Order Comment: Comme nts: May add to ED labsComments: may add to ED labs Result Comment: mL/m in/1.73m2 CKD-EPI Creatinine Equation (2020) Performed By: #### L 100.0100, L501.2300, L501.5200, L500.4050 ####[facility] [address] [place], [address] Globulin (S) [Mass/Vol] 2.0 g/dL Low 2.2-4.2 [facility] Comment on above: Order Comment: Comme nts: May add to ED labsComments: may add to ED labs Performed By: #### L 100.0100, L501.2300, L501.5200, L500.4050 ####[facility] [address] [place], [address] Glucose [Mass/Vol] 97 mg/dL Normal 70-99 [facility] Comment on above: Order Comment: Comme nts: May add to ED labsComments: may add to ED labs Performed By: #### L 100.0100, L501.2300, L501.5200, L500.4050 ####[facility] [address] [place], [address] Potassium [Moles/Vol] 3.1 mmol/L Low 3.3-5.1 [facility] Comment on above: Order Comment: Comme nts: May add to ED labsComments: may add to ED labs Performed By: #### L 100.0100, L501.2300, L501.5200, L500.4050 ####[facility] [address] [place], [address] Sodium [Moles/Vol] 136 mmol/L Normal 133-145 [facility] Comment on above: Order Comment: Comme nts: May add to ED labsComments: may add to ED labs Performed By: #### L 100.0100, L501.2300, L501.5200, L500.4050 ####[facility] [address] [place], [address] T PROT 5.3 g/dL Low 5.9-8.4 [facility] Comment on above: Order Comment: Comme nts: May add to ED labsComments: may add to ED labs Performed By: #### L 100.0100, L501.2300, L501.5200, L500.4050 ####[facility] [address] [place], [address] Urea nitrogen [Mass/Vol] 3 mg/dL Low 4-19 [facility] Comment on above: Order Comment: Comme nts: May add to ED labsComments: may add to ED labs Performed By: #### L 100.0100, L501.2300, L501.5200, L500.4050 ####[facility] [address] [place], [address] Discharge Instructionon 07-0 Discharge Instruction Normal [facility] Electrocardiogram reportOrde red By: Bob Henriquez on 01-13-2025 EKG study [facility] [address] [place] [address] 12 Lead EKG 01/11/252025 MR#: [id number] Acct: [id number] Name: BRETT CRUZ Rep #:[id number] : 1990 34 From: Bob Henriquez MD Attending Dr: Dr. Dian Galan MD Status: ADM IN Ordering Dr: Chato Newberry MD Date: 01/11 Location: ICU Sex: F C Admitted: 01/11/25 Test Reason : N/V Blood Pressure : */* mmHG Vent. Rate : 101 BPM Atrial Rate : 101 BPM P-R Int : 142 ms QRS Dur : 74 ms QT Int : 314 ms P-R-T Axes : 58 2 31 degrees QTcB Int : 407 ms Sinus tachycardia Nonspecific T wave abnormality Abnormal ECG Confirmed by BOB HENRIQUEZ MD ([id number]), assistant film editor JUANJO COVARRUBIAS ([id number]) on 01/13/2025 8:19:55 AM Referred By: JUAN M Confirmed By: BOB HENRIQUEZ MD 01/13/25818 Date _ Bob Herniquez MD CC: Dr. Dian Galan MD; Dr. Meena Flowers DO; Dr. Chato Newberry MD ~ Signed [facility] Other Phone: Eosinophil percentageOrdered By: Dian Galan on 01-13-2025 Eosinophils/100 WBC (Bld) 1.4 % 0-5 [facility] Erythrocyte distribution wid th ratioOrdered By: [facility] Adama on 01-13-2025 Erythrocyte distribution width (RBC) [Ratio] 14.6 % 11.6-14.6 [facility] Erythrocyte distribution wid th standard deviationOrdered By: Dian Galan on 01-13-2025 Erythrocyte distribution width (RBC) [Ratio] 47.9 fl High 35.1-43.9 [facility] Glomerular filtration rate ( GFR) estimation/1.73 sq m using serum, plasma, or whole bOrdered By: Dian Galan on 01-13-2025 GFR/1.73 sq M.predicted among non-blacks MDRD (S/P/Bld) [Vol rate/Area] 126 mL/min/{1.73_m2} >60 [facility] Comment on above: mL/min/1.73m2 CKD-EP I Creatinine Equation (2020) [facility] deOrdered By: Dian Galan on 01-13-2025 Glucose [Mass/Vol] 119 mg/dL High 74-106 [facility] Comment on above: MANAGEMENT OF PATIEN T CARE PER NURSING PROTOCOL Hematocrit Auto (Bld) [Volum e fraction]Ordered By: Dian Galan on 01-13-2025 Hematocrit (Bld) [Volume fraction] 35.2 % Low 37-47 [facility] Hemoglobin measurementOrdere d By: Dian Galan on 01-13-2025 Hemoglobin (Bld) [Mass/Vol] 11.5 g/dL Low 12.0-15.0 [facility] Immature granulocytes/100 WB C Auto (Bld)Ordered By: Dian Galan on 01-13-2025 Immature granulocytes/100 WBC (Bld) 0.200 % 0.0-0.9 [facility] Comment on above: IG% - Immature Granu locytes (promyelocytes, myelocytes and metamyelocytes) > 1% indicates that a LEFT SHIFT is Present. Laboratory - Chemistry and C hemistry - challengeOrdered By: Dian Galan on 01-13-2025 AST [Catalytic activity/Vol] 25 U/L <32 [facility] MCV (mean corpuscular volume ) determinationOrdered By: Dian Galan on 01-13-2025 MCV (RBC) [Entitic vol] 89.3 fL 81-99 [facility] Comment on above: Delta: 96.9 on 01/11 Magnesiumon 01-13-2025 Magnesium [Mass/Vol] 1.8 mg/dL Normal 1.5-2.2 [facility] Comment on above: Performed By: #### L 501.2300, L501.5200 ####[facility] [address] [place], [address] Magnesium [Mass/Vol] 1.5 mg/dL Normal 1.5-2.2 [facility] Comment on above: Order Comment: Comme nts: May add to ED labsComments: may add to ED labs Performed By: #### L 100.0100, L501.2300, L501.5200, L500.4050 ####[facility] [address] [place], [address] Magnesium measurement (mass/ volume)Ordered By: Dian Galan on 01-13-2025 Magnesium (Unsp spec) [Mass/Vol] 1.8 mg/dL 1.5-2.2 [facility] Mean corpuscular hemoglobin (MCH) determinationOrdered By: Dian Galan on 01-13-2025 MCH (RBC) [Entitic mass] 29.2 pg 27.0-32.0 [facility] Mean corpuscular hemoglobin concentration (MCHC) determinationOrdered By: Dian Galan on 01-13-2025 MCHC (RBC) [Mass/Vol] 32.7 g/dL 32-36 [facility] Comment on above: Delta: 30.2 on 01/11 Mean platelet volume determi nationOrdered By: Dian Galan on 01-13-2025 Platelet mean volume (Bld) [Entitic vol] 9.5 fL 6.2-12.0 [facility] Monocyte percentageOrdered B y: Dian Galan on 01-13-2025 Monocytes/100 WBC (Bld) 9.7 % 0-10 [facility] Neutrophil percentageOrdered By: Dian White on 01-13-2025 Neutrophils/100 WBC (Bld) 51.4 % 47-70 [facility] Nucleated red blood cell per centageOrdered By: [facility] Adama on 01-13-2025 Nucleated RBC/100 WBC (Bld) [Ratio] 0 % 0-5 [facility] Phosphoruson 01-13-2025 Phosphate [Mass/Vol] 2.0 mg/dL Low 2.7-4.5 [facility] Comment on above: Performed By: #### L 501.2300, L501.5200 ####[facility] [address] [place], [address] Phosphate [Mass/Vol] 1.0 mg/dL Invalid Interpretation Code 2.7-4.5 [facility] Comment on above: Order Comment: Comme nts: May add to ED labsComments: may add to ED labs Result Comment: Crit ical Result(s) Called at:0539 by: DAI GORDON TO RNCAURAND.??Results read back by same. Performed By: #### L 100.0100, L501.2300, L501.5200, L500.4050 ####[facility] [address] [place], [address] Platelet countOrdered By: Nia mendieta Adama on 01-13-2025 Platelets (Bld) [#/Vol] 264 10*3/uL 150-450 [facility] Potassium measurement (mass/ volume)Ordered By: Dian Adama on 01-13-2025 Potassium (Unsp spec) [Mass/Vol] 3.5 mmol/L 3.3-5.1 [facility] Comment on above: Hemolysis present, R esults could be affected. RBC Auto (Bld) [#/Vol]Ordere d By: Dian Galan on 01-13-2025 RBC (Bld) [#/Vol] 3.94 10*6/uL Low 4.2-5.4 [facility] Serum creatinine measurement (mass/volume)Ordered By: Dian Galan on 01-13-2025 Creatinine [Mass/Vol] 0.49 mg/dL Low 0.70-1.20 [facility] Serum globulin measurementOr dered By: Dian Galan on 01-13-2025 Globulin (S) [Mass/Vol] 2.0 g/dL Low 2.2-4.2 [facility] Serum glucose measurement (m ass/volume)Ordered By: Dian Galan on 01-13-2025 Glucose [Mass/Vol] 118 mg/dL High 70-99 [facility] Serum or plasma alanine mcrae otransferase (ALT) measurementOrdered By: Dian Galan on 01-13-2025 ALT [Catalytic activity/Vol] 24 U/L <35 [facility] Serum or plasma albumin xin urement (mass/volume)Ordered By: Dian Galan on 01-13-2025 Albumin [Mass/Vol] 3.4 g/dL Low 3.5-5.0 [facility] Serum or plasma albumin/glob ulin mass ratioOrdered By: Dian Galan on 01-13-2025 Albumin/Globulin [Mass ratio] 1.7 {ratio} 0.9-2.4 [facility] Serum or plasma alkaline charline sphatase measurementOrdered By: Dian Galan on 01-13-2025 ALP [Catalytic activity/Vol] 44 U/L 35-104 [facility] Serum or plasma calcium xin urement (mass/volume)Ordered By: Dian Galan on 01-13-2025 Calcium [Mass/Vol] 7.8 mg/dL 7.6-11.0 [facility] Serum or plasma urea nitroge n measurement (mass/volume)Ordered By: Dian aGlan on 01-13-2025 Urea nitrogen [Mass/Vol] 2 mg/dL Low 4-19 [facility] Sodium levelOrdered By: Dariuszu mn Adama on 01-13-2025 Sodium [Moles/Vol] 138 mmol/L 133-145 [facility] Total proteinOrdered By: Dariusz umn Adama on 01-13-2025 Protein [Mass/Vol] 5.3 g/dL Low 5.9-8.4 [facility] White blood cell (WBC) count Ordered By: Dian Galan on 01-13-2025 WBC (Bld) [#/Vol] 6.4 10*3/uL 4.4-11.0 [facility] Assessment of wrist artery p atency prior to arterial punctureOrdered By: Andrew Cormier on 01-12-2025 Arterial patency Wrist artery --pre arterial puncture Positive [facility] Basic Metabolic Profile (BMP )on 01-12-2025 BUN/CRE 6.5 RATIO Low 10-20 [facility] Comment on above: Order Comment: Call MD with results STAT Performed By: #### L 500.2500 ####[facility] [address] [place], [address] Calcium [Mass/Vol] 7.5 mg/dL Low 7.6-11.0 [facility] Comment on above: Order Comment: Call MD with results STAT Performed By: #### L 500.2500 ####[facility] [address] [place], [address] Chloride [Moles/Vol] 105 mmol/L Normal 98-108 [facility] Comment on above: Order Comment: Call MD with results STAT Performed By: #### L 500.2500 ####[facility] [address] [place], [address] CO2 [Moles/Vol] 12.3 mmol/L Low 21.0-32.0 [facility] Comment on above: Order Comment: Call MD with results STAT Performed By: #### L 500.2500 ####[facility] [address] [place], [address] Creatinine [Mass/Vol] 0.63 mg/dL Low 0.70-1.20 [facility] Comment on above: Order Comment: Call MD with results STAT Performed By: #### L 500.2500 ####[facility] [address] [place], [address] ECRCL 111.05 ml/min Normal 50-250 [facility] Comment on above: Order Comment: Call MD with results STAT Performed By: #### L 500.2500 ####[facility] [address] [place], [address] GAP 16 High 5-15 [facility] Comment on above: Order Comment: Call MD with results STAT Performed By: #### L 500.2500 ####[facility] [address] [place], [address] GFR/1.73 sq M.predicted among non-blacks MDRD (S/P/Bld) [Vol rate/Area] 119 mL/min/{1.73_m2} Normal >60 [facility] Comment on above: Order Comment: Call MD with results STAT Result Comment: mL/m in/1.73m2 CKD-EPI Creatinine Equation (2020) Performed By: #### L 500.2500 ####[facility] [address] [place], [address] Glucose [Mass/Vol] 183 mg/dL High 70-99 [facility] Comment on above: Order Comment: Call MD with results STAT Performed By: #### L 500.2500 ####[facility] [address] [place], [address] Potassium [Moles/Vol] 3.9 mmol/L Normal 3.3-5.1 [facility] Comment on above: Order Comment: Call MD with results STAT Result Comment: Hemo lysis present, Results??could be affected.?? Performed By: #### L 500.2500 ####[facility] [address] [place], [address] Sodium [Moles/Vol] 133 mmol/L Normal 133-145 [facility] Comment on above: Order Comment: Call MD with results STAT Performed By: #### L 500.2500 ####[facility] [address] [place], [address] Urea nitrogen [Mass/Vol] 4 mg/dL Normal 4-19 [facility] Comment on above: Order Comment: Call MD with results STAT Performed By: #### L 500.2500 ####[facility] [address] [place], [address] BUN/CRE 7.3 RATIO Low 10-20 [facility] Comment on above: Order Comment: Call MD with results STAT Performed By: #### L 500.2500 ####[facility] [address] [place], [place], [address] Calcium [Mass/Vol] 7.6 mg/dL Normal 7.6-11.0 [facility] Comment on above: Order Comment: Call MD with results STAT Performed By: #### L 500.2500 ####[facility] [address] [place], [address] Chloride [Moles/Vol] 107 mmol/L Normal 98-108 [facility] Comment on above: Order Comment: Call MD with results STAT Performed By: #### L 500.2500 ####[facility] [address] [place], [address] CO2 [Moles/Vol] 11.8 mmol/L Low 21.0-32.0 [facility] Comment on above: Order Comment: Call MD with results STAT Performed By: #### L 500.2500 ####[facility] [address] [place], [address] Creatinine [Mass/Vol] 0.65 mg/dL Low 0.70-1.20 [facility] Comment on above: Order Comment: Call MD with results STAT Performed By: #### L 500.2500 ####[facility] [address] [place], [address] ECRCL 107.63 ml/min Normal 50-250 [facility] Comment on above: Order Comment: Call MD with results STAT Performed By: #### L 500.2500 ####[facility] [address] [place], [address] GAP 15 Normal 5-15 [facility] Comment on above: Order Comment: Call MD with results STAT Performed By: #### L 500.2500 ####[facility] [address] [place], [address] GFR/1.73 sq M.predicted among non-blacks MDRD (S/P/Bld) [Vol rate/Area] 118 mL/min/{1.73_m2} Normal >60 [facility] Comment on above: Order Comment: Call MD with results STAT Result Comment: mL/m in/1.73m2 CKD-EPI Creatinine Equation (2020) Performed By: #### L 500.2500 ####[facility] [address] [place], [address] Glucose [Mass/Vol] 206 mg/dL High 70-99 [facility] Comment on above: Order Comment: Call MD with results STAT Performed By: #### L 500.2500 ####[facility] [address] [place], [address] Potassium [Moles/Vol] 3.6 mmol/L Normal 3.3-5.1 [facility] Comment on above: Order Comment: Call MD with results STAT Result Comment: Hemo lysis present, Results??could be affected.?? Performed By: #### L 500.2500 ####[facility] [address] [place], [address] Sodium [Moles/Vol] 133 mmol/L Normal 133-145 [facility] Comment on above: Order Comment: Call MD with results STAT Performed By: #### L 500.2500 ####[facility] [address] [place], [address] Urea nitrogen [Mass/Vol] 5 mg/dL Normal 4-19 [facility] Comment on above: Order Comment: Call MD with results STAT Performed By: #### L 500.2500 ####[facility] [address] [place], [address] BUN/CRE 6.8 RATIO Low 10-20 [facility] Comment on above: Order Comment: Call MD with results STAT Performed By: #### L 500.2500 ####[facility] [address] [place], [address] Calcium [Mass/Vol] 7.9 mg/dL Normal 7.6-11.0 [facility] Comment on above: Order Comment: Call MD with results STAT Performed By: #### L 500.2500 ####[facility] [address] [place], [address] Chloride [Moles/Vol] 105 mmol/L Normal 98-108 [facility] Comment on above: Order Comment: Call MD with results STAT Performed By: #### L 500.2500 ####[facility] [address] [place], [address] CO2 [Moles/Vol] 11.5 mmol/L Low 21.0-32.0 [facility] Comment on above: Order Comment: Call MD with results STAT Performed By: #### L 500.2500 ####[facility] [address] [place], [address] Creatinine [Mass/Vol] 0.73 mg/dL Normal 0.70-1.20 [facility] Comment on above: Order Comment: Call MD with results STAT Performed By: #### L 500.2500 ####[facility] [address] [place], [address] ECRCL 95.84 ml/min Normal 50-250 [facility] Comment on above: Order Comment: Call MD with results STAT Performed By: #### L 500.2500 ####[facility] [address] [place], [address] GAP 18 High 5-15 [facility] Comment on above: Order Comment: Call MD with results STAT Performed By: #### L 500.2500 ####[facility] [address] [place], [address] GFR/1.73 sq M.predicted among non-blacks MDRD (S/P/Bld) [Vol rate/Area] 110 mL/min/{1.73_m2} Normal >60 [facility] Comment on above: Order Comment: Call MD with results STAT Result Comment: mL/m in/1.73m2 CKD-EPI Creatinine Equation (2020) Performed By: #### L 500.2500 ####[facility] [address] [place], [address] Glucose [Mass/Vol] 206 mg/dL High 70-99 [facility] Comment on above: Order Comment: Call MD with results STAT Performed By: #### L 500.2500 ####[facility] [address] [place], [address] Potassium [Moles/Vol] 4.4 mmol/L Normal 3.3-5.1 [facility] Comment on above: Order Comment: Call MD with results STAT Result Comment: Hemo lysis present, Results??could be affected.?? Performed By: #### L 500.2500 ####[facility] [address] [place], [address] Sodium [Moles/Vol] 134 mmol/L Normal 133-145 [facility] Comment on above: Order Comment: Call MD with results STAT Performed By: #### L 500.2500 ####[facility] [address] [place], [address] Urea nitrogen [Mass/Vol] 5 mg/dL Normal 4-19 [facility] Comment on above: Order Comment: Call MD with results STAT Performed By: #### L 500.2500 ####[facility] [address] [place], [address] BUN/CRE 6.9 RATIO Low 10-20 [facility] Comment on above: Order Comment: Call MD with results STAT Performed By: #### L 500.2500 ####[facility] [address] [place], [address] Calcium [Mass/Vol] 8.0 mg/dL Normal 7.6-11.0 [facility] Comment on above: Order Comment: Call MD with results STAT Performed By: #### L 500.2500 ####[facility] [address] [place], [address] Chloride [Moles/Vol] 111 mmol/L High 98-108 [facility] Comment on above: Order Comment: Call MD with results STAT Performed By: #### L 500.2500 ####[facility] [address] [place], [address] CO2 [Moles/Vol] 11.8 mmol/L Low 21.0-32.0 [facility] Comment on above: Order Comment: Call MD with results STAT Performed By: #### L 500.2500 ####[facility] [address] [place], [address] Creatinine [Mass/Vol] 0.71 mg/dL Normal 0.70-1.20 [facility] Comment on above: Order Comment: Call MD with results STAT Performed By: #### L 500.2500 ####[facility] [address] [place], [address] ECRCL 98.54 ml/min Normal 50-250 [facility] Comment on above: Order Comment: Call MD with results STAT Performed By: #### L 500.2500 ####[facility] [address] [place], [address] GAP 13 Normal 5-15 [facility] Comment on above: Order Comment: Call MD with results STAT Performed By: #### L 500.2500 ####[facility] [address] [place], [address] GFR/1.73 sq M.predicted among non-blacks MDRD (S/P/Bld) [Vol rate/Area] 113 mL/min/{1.73_m2} Normal >60 [facility] Comment on above: Order Comment: Call MD with results STAT Result Comment: mL/m in/1.73m2 CKD-EPI Creatinine Equation (2020) Performed By: #### L 500.2500 ####[facility] [address] [place], [address] Glucose [Mass/Vol] 95 mg/dL Normal 70-99 [facility] Comment on above: Order Comment: Call MD with results STAT Performed By: #### L 500.2500 ####[facility] [address] [place], [address] Potassium [Moles/Vol] 4.1 mmol/L Normal 3.3-5.1 [facility] Comment on above: Order Comment: Call MD with results STAT Result Comment: Hemo lysis present, Results??could be affected.?? Performed By: #### L 500.2500 ####[facility] [address] [place], [address] Sodium [Moles/Vol] 135 mmol/L Normal 133-145 [facility] Comment on above: Order Comment: Call MD with results STAT Performed By: #### L 500.2500 ####[facility] [address] [place], [address] Urea nitrogen [Mass/Vol] 5 mg/dL Normal 4-19 [facility] Comment on above: Order Comment: Call MD with results STAT Performed By: #### L 500.2500 ####[facility] [address] [place], [address] BUN/CRE 7.4 RATIO Low 10-20 [facility] Comment on above: Order Comment: CLAIRE Cutler PREVIOUS SPECIMEN REJECTED DUE TOQUESTIONABLE RESULTS. 01/12/25 0354 Karthik Nugent. Performed By: #### L 501.9520, L500.2500 ####[facility] [address] [place], [address] Calcium [Mass/Vol] 7.5 mg/dL Low 7.6-11.0 [facility] Comment on above: Order Comment: REDRA W. PREVIOUS SPECIMEN REJECTED DUE TOQUESTIONABLE RESULTS. 01/12/25353 Karthik R Nugent. Performed By: #### L 501.9520, L500.2500 ####[facility] [address] [place], [address] Chloride [Moles/Vol] 109 mmol/L High 98-108 [facility] Comment on above: Order Comment: REDRA W. PREVIOUS SPECIMEN REJECTED DUE TOQUESTIONABLE RESULTS. 01/12/25353 Karthik R Nugent. Performed By: #### L 501.9520, L500.2500 ####[facility] [address] [place], [address] CO2 [Moles/Vol] 6.5 mmol/L Invalid Interpretation Code 21.0-32.0 [facility] Comment on above: Order Comment: REDRA W. PREVIOUS SPECIMEN REJECTED DUE TOQUESTIONABLE RESULTS. 01/12/25353 Karthik R Nugent. Result Comment: Crit ical Result(s) Called at 0608: by: DERIC SALGADO??Results read back by same. Performed By: #### L 501.9520, L500.2500 ####[facility] [address] [place], [address] Creatinine [Mass/Vol] 0.71 mg/dL Normal 0.70-1.20 [facility] Comment on above: Order Comment: REDRA W. PREVIOUS SPECIMEN REJECTED DUE TOQUESTIONABLE RESULTS. 01/12/25353 Karthik R Nugent. Performed By: #### L 501.9520, L500.2500 ####[facility] [address] [place], [address] ECRCL 98.54 ml/min Normal 50-250 [facility] Comment on above: Order Comment: REDRA W. PREVIOUS SPECIMEN REJECTED DUE TOQUESTIONABLE RESULTS. 01/12/25353 Karthik R Nugent. Performed By: #### L 501.9520, L500.2500 ####[facility] [address] [place], [address] GAP 20 High 5-15 [facility] Comment on above: Order Comment: REDRA W. PREVIOUS SPECIMEN REJECTED DUE TOQUESTIONABLE RESULTS. 01/12/25353 Karthik R Nugent. Performed By: #### L 501.9520, L500.2500 ####[facility] [address] [place], [address] GFR/1.73 sq M.predicted among non-blacks MDRD (S/P/Bld) [Vol rate/Area] 114 mL/min/{1.73_m2} Normal >60 [facility] Comment on above: Order Comment: REDRA W. PREVIOUS SPECIMEN REJECTED DUE TOQUESTIONABLE RESULTS. 01/12/25353 Karthik R Nugent. Result Comment: mL/m in/1.73m2 CKD-EPI Creatinine Equation (2020) Performed By: #### L 501.9520, L500.2500 ####[facility] [address] [place], [address] Glucose [Mass/Vol] 146 mg/dL High 70-99 [facility] Comment on above: Order Comment: REDRA W. PREVIOUS SPECIMEN REJECTED DUE TOQUESTIONABLE RESULTS. 01/12/25353 Karthik R Nugent. Performed By: #### L 501.9520, L500.2500 ####[facility] [address] [place], [address] Potassium [Moles/Vol] 4.2 mmol/L Normal 3.3-5.1 [facility] Comment on above: Order Comment: REDRA W. PREVIOUS SPECIMEN REJECTED DUE TOQUESTIONABLE RESULTS. 01/12/25353 Karthik R Nugent. Performed By: #### L 501.9520, L500.2500 ####[facility] [address] [place], [address] Sodium [Moles/Vol] 136 mmol/L Normal 133-145 [facility] Comment on above: Order Comment: REDRA W. PREVIOUS SPECIMEN REJECTED DUE TOQUESTIONABLE RESULTS. 01/12/25353 Karthik R Nugent. Performed By: #### L 501.9520, L500.2500 ####[facility] [address] [place], [address] Urea nitrogen [Mass/Vol] 5 mg/dL Normal 4-19 [facility] Comment on above: Order Comment: REDRA W. PREVIOUS SPECIMEN REJECTED DUE TOQUESTIONABLE RESULTS. 01/12/25353 Karthik R Nugent. Performed By: #### L 501.9520, L500.2500 ####[facility] [address] [place], [address] BUN Normal 4-19 [facility] Comment on above: Order Comment: Call MD with results STAT Result Comment: NOT NEEDED. LABS DRAWN SINCE Performed By: #### L 500.2500 ####[facility] [address] [place], [address] BUN/CRE Normal 10-20 [facility] Comment on above: Order Comment: Call MD with results STAT Result Comment: NOT NEEDED. LABS DRAWN SINCE Performed By: #### L 500.2500 ####[facility] [address] [place], [address] Calcium Normal 7.6-11.0 [facility] Comment on above: Order Comment: Call MD with results STAT Result Comment: NOT NEEDED. LABS DRAWN SINCE Performed By: #### L 500.2500 ####[facility] [address] [place], [address] CL Normal 98-108 [facility] Comment on above: Order Comment: Call MD with results STAT Result Comment: NOT NEEDED. LABS DRAWN SINCE Performed By: #### L 500.2500 ####[facility] [address] [place], [address] CO2 Normal 21.0-32.0 [facility] Comment on above: Order Comment: Call MD with results STAT Result Comment: NOT NEEDED. LABS DRAWN SINCE Performed By: #### L 500.2500 ####[facility] [address] [place], [address] CREAT,SERUM Normal 0.70-1.20 [facility] Comment on above: Order Comment: Call MD with results STAT Result Comment: NOT NEEDED. LABS DRAWN SINCE Performed By: #### L 500.2500 ####[facility] [address] [place], [address] eGFR Normal >60 [facility] Comment on above: Order Comment: Call MD with results STAT Result Comment: NOT NEEDED. LABS DRAWN SINCE Performed By: #### L 500.2500 ####[facility] [address] [place], [address] GAP Normal 5-15 [facility] Comment on above: Order Comment: Call MD with results STAT Result Comment: NOT NEEDED. LABS DRAWN SINCE Performed By: #### L 500.2500 ####[facility] [address] [place], [address] GLU Normal 70-99 [facility] Comment on above: Order Comment: Call MD with results STAT Result Comment: NOT NEEDED. LABS DRAWN SINCE Performed By: #### L 500.2500 ####[facility] [address] [place], [address] Potassium Normal 3.3-5.1 [facility] Comment on above: Order Comment: Call MD with results STAT Result Comment: NOT NEEDED. LABS DRAWN SINCE Performed By: #### L 500.2500 ####[facility] [address] [place], [address] Basic Metabolic Profile (BMP) Normal 133-145 [facility] Comment on above: Order Comment: Call MD with results STAT Result Comment: NOT NEEDED. LABS DRAWN SINCE Performed By: #### L 500.2500 ####[facility] [address] [place], [address] BUN Normal 4-19 [facility] Comment on above: Order Comment: Call MD with results STAT Result Comment: This specimen has been REJECTED due to Laboratory criteria:QUESTIONABLE RESULTS.[email or web address] has been notified of need of recollection.01/12/25352 Karthik R Nugent Performed By: #### L 501.9520, L500.2500, L501.9985 ####[facility] [address] [place], [address] BUN/CRE Normal 10-20 [facility] Comment on above: Order Comment: Call MD with results STAT Result Comment: This specimen has been REJECTED due to Laboratory criteria:QUESTIONABLE RESULTS.[email or web address] has been notified of need of recollection.01/12/25352 Karthik R Nugent Performed By: #### L 501.9520, L500.2500, L501.9985 ####[facility] [address] [place], [address] Calcium Normal 7.6-11.0 [facility] Comment on above: Order Comment: Call MD with results STAT Result Comment: This specimen has been REJECTED due to Laboratory criteria:QUESTIONABLE RESULTS.[email or web address] has been notified of need of recollection.01/12/25352 Karthik R Nugent Performed By: #### L 501.9520, L500.2500, L501.9985 ####[facility] [address] [place], [address] CL Normal 98-108 [facility] Comment on above: Order Comment: Call MD with results STAT Result Comment: This specimen has been REJECTED due to Laboratory criteria:QUESTIONABLE RESULTS.[email or web address] has been notified of need of recollection.01/12/25352 Karthik R Nugent Performed By: #### L 501.9520, L500.2500, L501.9985 ####[facility] [address] [place], [address] CO2 Normal 21.0-32.0 [facility] Comment on above: Order Comment: Call MD with results STAT Result Comment: This specimen has been REJECTED due to Laboratory criteria:QUESTIONABLE RESULTS.[email or web address] has been notified of need of recollection.01/12/25352 Karthik R Nugent Performed By: #### L 501.9520, L500.2500, L501.9985 ####[facility] [address] [place], [address] CREAT,SERUM Normal 0.70-1.20 [facility] Comment on above: Order Comment: Call MD with results STAT Result Comment: This specimen has been REJECTED due to Laboratory criteria:QUESTIONABLE RESULTS.[email or web address] has been notified of need of recollection.01/12/25352 Karthik R Nugent Performed By: #### L 501.9520, L500.2500, L501.9985 ####[facility] [address] [place], [address] eGFR Normal >60 [facility] Comment on above: Order Comment: Call MD with results STAT Result Comment: This specimen has been REJECTED due to Laboratory criteria:QUESTIONABLE RESULTS.[email or web address] has been notified of need of recollection.01/12/25352 Karthik R Nugent Performed By: #### L 501.9520, L500.2500, L501.9985 ####[facility] [address] [place], [address] GAP Normal 5-15 [facility] Comment on above: Order Comment: Call MD with results STAT Result Comment: This specimen has been REJECTED due to Laboratory criteria:QUESTIONABLE RESULTS.[email or web address] has been notified of need of recollection.01/12/25352 Karthik R Nugent Performed By: #### L 501.9520, L500.2500, L501.9985 ####[facility] [address] [place], [address] GLU Normal 70-99 [facility] Comment on above: Order Comment: Call MD with results STAT Result Comment: This specimen has been REJECTED due to Laboratory criteria:QUESTIONABLE RESULTS.[email or web address] has been notified of need of recollection.01/12/25352 Karthik R Nugent Performed By: #### L 501.9520, L500.2500, L501.9985 ####[facility] [address] [place], [address] Potassium Normal 3.3-5.1 [facility] Comment on above: Order Comment: Call MD with results STAT Result Comment: This specimen has been REJECTED due to Laboratory criteria:QUESTIONABLE RESULTS.[email or web address] has been notified of need of recollection.01/12/25352 Karthik R Nugent Performed By: #### L 501.9520, L500.2500, L501.9985 ####[facility] [address] [place], [address] Basic Metabolic Profile (BMP) Normal 133-145 [facility] Comment on above: Order Comment: Call MD with results STAT Result Comment: This specimen has been REJECTED due to Laboratory criteria:QUESTIONABLE RESULTS.[email or web address] has been notified of need of recollection.01/12/25352 Karthik R Nugent Performed By: #### L 501.9520, L500.2500, L501.9985 ####[facility] [address] [place], [address] Bedside Glucoseon 01-12-2025 FINGERSTICK GLU 150 mg/dL High 74-106 [facility] Comment on above: Result Comment: KAZ GEMENT OF PATIENT CARE PER NURSING PROTOCOL Performed By: #### L 501.080 ####[facility] [address] [place], [address] FINGERSTICK GLU 181 mg/dL High 74-106 [facility] Comment on above: Result Comment: KAZ GEMENT OF PATIENT CARE PER NURSING PROTOCOL Performed By: #### L 501.080 ####[facility] [address] [place], [address] FINGERSTICK GLU 175 mg/dL High 74-106 [facility] Comment on above: Result Comment: KAZ GEMENT OF PATIENT CARE PER NURSING PROTOCOL Performed By: #### L 501.080 ####[facility] [address] [place], [address] FINGERSTICK GLU 176 mg/dL High 74-106 [facility] Comment on above: Result Comment: KAZ GEMENT OF PATIENT CARE PER NURSING PROTOCOL Performed By: #### L 501.080 ####[facility] [address] [place], [address] FINGERSTICK GLU 150 mg/dL High 74-106 [facility] Comment on above: Result Comment: KAZ GEMENT OF PATIENT CARE PER NURSING PROTOCOL Performed By: #### L 501.080 ####[facility] [address] [place], [address] FINGERSTICK GLU 155 mg/dL High -106 [facility] Comment on above: Result Comment: KAZ GEMENT OF PATIENT CARE PER NURSING PROTOCOL Performed By: #### L 501.080 ####[facility] [address] [place], [address] FINGERSTICK GLU 152 mg/dL High 74-106 [facility] Comment on above: Result Comment: KAZ GEMENT OF PATIENT CARE PER NURSING PROTOCOL Performed By: #### L 501.080 ####[facility] [address] [place], [address] FINGERSTICK GLU 202 mg/dL High -106 [facility] Comment on above: Result Comment: KAZ GEMENT OF PATIENT CARE PER NURSING PROTOCOL Performed By: #### L 501.080 ####[facility] [address] [place], [address] FINGERSTICK GLU 212 mg/dL High 74-106 [facility] Comment on above: Result Comment: KAZ GEMENT OF PATIENT CARE PER NURSING PROTOCOL Performed By: #### L 501.080 ####[facility] [address] [place], [address] FINGERSTICK GLU 208 mg/dL High 74-106 [facility] Comment on above: Result Comment: KAZ GEMENT OF PATIENT CARE PER NURSING PROTOCOL Performed By: #### L 501.080 ####[facility] [address] [place], [address] FINGERSTICK GLU 190 mg/dL High 74-106 [facility] Comment on above: Result Comment: KAZ GEMENT OF PATIENT CARE PER NURSING PROTOCOL Performed By: #### L 501.080 ####[facility] [address] [place], [address] FINGERSTICK GLU 179 mg/dL High 74-106 [facility] Comment on above: Result Comment: KAZ GEMENT OF PATIENT CARE PER NURSING PROTOCOL Performed By: #### L 501.080 ####[facility] [address] [place], [address] FINGERSTICK GLU 187 mg/dL High 74-106 [facility] Comment on above: Result Comment: KAZ GEMENT OF PATIENT CARE PER NURSING PROTOCOL Performed By: #### L 501.080 ####[facility] [address] [place], [address] FINGERSTICK GLU 56 mg/dL Low 74-106 [facility] Comment on above: Result Comment: KAZ GEMENT OF PATIENT CARE PER NURSING PROTOCOL Performed By: #### L 501.080 ####[facility] [address] [place], [address] FINGERSTICK GLU 76 mg/dL Normal 74-106 [facility] Comment on above: Result Comment: KAZ GEMENT OF PATIENT CARE PER NURSING PROTOCOL Performed By: #### L 501.080 ####[facility] [address] [place], [address] FINGERSTICK GLU 102 mg/dL Normal 74-106 [facility] Comment on above: Result Comment: KAZ GEMENT OF PATIENT CARE PER NURSING PROTOCOL Performed By: #### L 501.080 ####[facility] [address] [place], [address] FINGERSTICK GLU 121 mg/dL High 74-106 [facility] Comment on above: Result Comment: KAZ GEMENT OF PATIENT CARE PER NURSING PROTOCOL Performed By: #### L 501.080 ####[facility] [address] [place], [address] FINGERSTICK GLU 117 mg/dL High 74-106 [facility] Comment on above: Result Comment: KAZ GEMENT OF PATIENT CARE PER NURSING PROTOCOL Performed By: #### L 501.080 ####[facility] [address] [place], [address] FINGERSTICK GLU 130 mg/dL High 74-106 [facility] Comment on above: Result Comment: KAZ GEMENT OF PATIENT CARE PER NURSING PROTOCOL Performed By: #### L 501.080 ####[facility] [address] [place], [address] FINGERSTICK GLU 190 mg/dL High 74-106 [facility] Comment on above: Result Comment: KAZ GEMENT OF PATIENT CARE PER NURSING PROTOCOL Performed By: #### L 501.080 ####[facility] [address] [place], [address] FINGERSTICK GLU 158 mg/dL High 74-106 [facility] Comment on above: Result Comment: KAZ GEMENT OF PATIENT CARE PER NURSING PROTOCOL Performed By: #### L 501.080 ####[facility] [address] [place], [address] FINGERSTICK GLU 180 mg/dL High 74-106 [facility] Comment on above: Result Comment: KAZ GEMENT OF PATIENT CARE PER NURSING PROTOCOL Performed By: #### L 501.080 ####[facility] [address] [place], [address] Beta-Hydroxbytyrateon 2024 BETA-HYDROXYBUT 5.2 mmol/L High 0.0-0.3 [facility] Comment on above: Performed By: #### L 501.6901 ####[facility] [address] [place], [address] Blood Gases by CPSon 025 REBECA TEST Positive Normal [facility] Comment on above: Performed By: #### L 9000.0800 ####[facility] [address] [place], [address] Base excess Calc (Bld) [Moles/Vol] -24 mmol/L Low -2 to +2 [facility] Comment on above: Performed By: #### L 9000.0800 ####[facility] [address] [place], [address] Blood Gas Type ART Normal [facility] Comment on above: Performed By: #### L 9000.0800 ####[facility] [address] [place], [address] CO2 [Moles/Vol] 5 mmol/L Normal [facility] Comment on above: Performed By: #### L 9000.0800 ####[facility] [address] [place], [address] FI02 21.0 Normal [facility] Comment on above: Performed By: #### L 9000.0800 ####[facility] [address] [place], [address] HCO3 (Bld) [Moles/Vol] 4.6 mmol/L Low 22-26 [facility] Comment on above: Performed By: #### L 9000.0800 ####[facility] [address] [place], [address] Mode Not entered [facility] Comment on above: Performed By: #### L 9000.0800 ####[facility] [address] [place], [address] O2 Delivery Dev Room Air [facility] Comment on above: Performed By: #### L 9000.0800 ####[facility] [address] [place], [address] pCO2 13.3 mmHg Invalid Interpretation Code 35-45 [facility] Comment on above: Performed By: #### L 9000.0800 ####[facility] [address] [place], [address] pH (Bld) 7.15 [pH] Invalid Interpretation Code 7.35-7.45 [facility] Comment on above: Performed By: #### L 9000.0800 ####[facility] [address] [place], [address] PO2 135 mmHG High 75-100 [facility] Comment on above: Performed By: #### L 9000.0800 ####[facility] [address] [place], [address] Read Back By Yes [facility] Comment on above: Performed By: #### L 9000.0800 ####[facility] [address] [place], [address]de Cormier [facility] Comment on above: Performed By: #### L 9000.0800 ####[facility] [address] [place], [address] SITE L Radial [facility] Comment on above: Performed By: #### L 9000.0800 ####[facility] [address] [place], [address] SO2 98 Normal 95-99 [facility] Comment on above: Performed By: #### L 9000.0800 ####[facility] [address] [place], [address] Time Given 01:16:47 Normal [facility] Comment on above: Performed By: #### L 9000.0800 ####[facility] [address] [place], [address] Blood base excess determinat ionOrdered By: Andrew Cormier on 01-12-2025 Base excess Calc (BldV) [Moles/Vol] -24 mmol/L Low -2-2 [facility] Blood bicarbonate measuremen tOrdered By: Andrew Cormier on 01-12-2025 HCO3 (Bld) [Moles/Vol] 4.6 mmol/L Low 22-26 [facility] Hemoglobin A1con 01-12-2025 HbA1c (Bld) [Mass fraction] 10.1 % High <=5.6 [facility] Comment on above: Result Comment: Norm al < 5.7 % Prediabetic 5.7 - 6.4 % Diabetic >or= 6.5 % Please note range changes. Performed By: #### L 501.9520, L500.2500, L501.9902 ####[facility] [address] [place], [address] Measurement, pHOrdered By: Marleny Cormier on 01-12-2025 pH (Unsp spec) 7.15 [pH] Low 7.35-7.45 [facility] No Panel InformationOrdered By: Andrew Cormier on 01-12-2025 Bld Gas Crit Called To/Read Back By Yes [facility] Blood Gas Notified Time 01:16:47 [facility] Blood Gas Notified Whom dr.de Cormier [facility] Blood Gas Sample Site L Radial [facility] Blood Gas Specimen Type ART [facility] Blood Gas Vent Mode Not entered [facility] Oxygen Delivery Device Room Air [facility] Osmolality, Serumon 01-13-20 25 OSMOLALITY,SER 310 mOsm/KG High 275-295 [facility] Comment on above: Order Comment: Comme nts: Add to ER Lab draw Performed By: #### L 501.7300, L501.5200, L500.2500 ####[facility] [address] [place], [address] TSH DL <= 0.005 mIU/L QnOrde red By: Andrew Cormier on 01-12-2025 TSH Qn 2.950 uIU/mL 0.300-4.200 [facility] Thyroid Stim Hormone (TSH)on 01-12-2025 TSH 2.950 uIU/mL Normal 0.300-4.200 [facility] Comment on above: Order Comment: CLAIRE Cutler PREVIOUS SPECIMEN REJECTED DUE TOQUESTIONABLE RESULTS. 01/12/25353 Karthik Nugent. Performed By: #### L 501.9520, L500.2500 ####[facility] [address] [place], [address] TSH 1.790 uIU/mL Normal 0.300-4.200 [facility] Comment on above: Order Comment: This specimen has been REJECTED due to Laboratory criteria:QUESTIONABLE RESULTS.TMILLER2 has been notified of need of recollection.01/12/25352 Karthik Nugent Result Comment: This specimen has been REJECTED due to Laboratory criteria:QUESTIONABLE RESULTS.TMILLER2 has been notified of need of recollection.01/12/25352 Karthik Nugent Performed By: #### L 501.9520, L500.2500, L501.9985 ####[facility] [address] [place], [address] Total carbon dioxide measure mentOrdered By: Andrew Cormier on 01-12-2025 CO2 [Moles/Vol] 5 mmol/L [facility] 12 Lead EKGon 01-11-2025 12 Lead EKG Normal [facility] Absolute lymphocyte countOrd ered By: Chato Newberry on 01-11-2025 Lymphocytes Auto (Unsp spec) [#/Vol] 1.14 10*3/uL 0.83-4.51 [facility] Absolute neutrophil countOrd ered By: Chatolima Newberry on 01-11-2025 Neutrophils (Bld) [#/Vol] 10.4 10*3/uL High 2.0-7.7 [facility] Anion gap in Serum or Plasma Ordered By: Chato Newberry on 01-11-2025 Anion gap [Moles/Vol] 29 mmol/L High 5-15 [facility] Automated lymphocyte count a s percentage of total leukocytesOrdered By: Chato Newberry on 01-11-2025 Lymphocytes/100 WBC Auto (Unsp spec) 9.4 % Low 19-41 [facility] BUN/creatinine ratioOrdered By: Chatolima Newberry on 01-11-2025 Urea nitrogen/Creatinine [Mass ratio] 8.9 mg/mg Low 10-20 [facility] Basic Metabolic Profile (BMP )on 01-11-2025 BUN/CRE 8.9 RATIO Low 10-20 [facility] Comment on above: Performed By: #### L 501.7300, L501.5200, L500.2500 ####[facility] [address] [place], [address] ECRCL 86.33 ml/min Normal 50-250 [facility] Comment on above: Performed By: #### L 501.7300, L501.5200, L500.2500 ####[facility] [address] [place], [address] GAP 29 High 5-15 [facility] Comment on above: Performed By: #### L 501.7300, L501.5200, L500.2500 ####[facility] [address] [place], [address] Potassium [Moles/Vol] 5.0 mmol/L Normal 3.3-5.1 [facility] Comment on above: Result Comment: Hemo lysis present, Results??could be affected.?? Performed By: #### L 501.7300, L501.5200, L500.2500 ####[facility] [address] [place], [address] BUN Normal 4-19 [facility] Comment on above: Result Comment: DUPL ICATE Performed By: #### L 500.2500 ####[facility] [address] [place], [address] BUN/CRE Normal 10-20 [facility] Comment on above: Result Comment: DUPL ICATE Performed By: #### L 500.2500 ####[facility] [address] [place], [address] Calcium Normal 7.6-11.0 [facility] Comment on above: Result Comment: DUPL ICATE Performed By: #### L 500.2500 ####[facility] [address] [place], [address] CL Normal 98-108 [facility] Comment on above: Result Comment: DUPL ICATE Performed By: #### L 500.2500 ####[facility] [address] [place], [address] CO2 Normal 21.0-32.0 [facility] Comment on above: Result Comment: DUPL ICATE Performed By: #### L 500.2500 ####[facility] [address] [place], [address] CREAT,SERUM Normal 0.70-1.20 [facility] Comment on above: Result Comment: DUPL ICATE Performed By: #### L 500.2500 ####[facility] [address] [place], [address] eGFR Normal >60 [facility] Comment on above: Result Comment: DUPL ICATE Performed By: #### L 500.2500 ####[facility] [address] [place], [address] GAP Normal 5-15 [facility] Comment on above: Result Comment: DUPL ICATE Performed By: #### L 500.2500 ####[facility] [address] [place], [address] GLU Normal 70-99 [facility] Comment on above: Result Comment: DUPL ICATE Performed By: #### L 500.2500 ####[facility] [address] [place], [address] Potassium Normal 3.3-5.1 [facility] Comment on above: Result Comment: DUPL ICATE Performed By: #### L 500.2500 ####[facility] [address] [place], [address] Basic Metabolic Profile (BMP) Normal 133-145 [facility] Comment on above: Result Comment: DUPL ICATE Performed By: #### L 500.2500 ####[facility] [address] [place], [address] BUN/CRE 8.1 RATIO Low 10-20 [facility] Comment on above: Performed By: #### L 500.2500 ####[facility] [address] [place], [address] Calcium [Mass/Vol] 9.7 mg/dL Normal 7.6-11.0 [facility] Comment on above: Performed By: #### L 500.2500 ####[facility] [address] [place], [address] Chloride [Moles/Vol] 96 mmol/L Low 98-108 [facility] Comment on above: Performed By: #### L 500.2500 ####[facility] [address] [place], [address] CO2 [Moles/Vol] 4.3 mmol/L Invalid Interpretation Code 21.0-32.0 [facility] Comment on above: Result Comment: Crit ical Result(s) Called at: 2127 by:??TEODORO FITZPATRICK Results read back by same. Performed By: #### L 500.2500 ####[facility] [address] [place], [address] Creatinine [Mass/Vol] 0.85 mg/dL Normal 0.70-1.20 [facility] Comment on above: Performed By: #### L 500.2500 ####[facility] [address] [place], [address] ECRCL 81.25 ml/min Normal 50-250 [facility] Comment on above: Performed By: #### L 500.2500 ####[facility] [address] [place], [address] GAP 34 High 5-15 [facility] Comment on above: Performed By: #### L 500.2500 ####[facility] [address] [place], [address] GFR/1.73 sq M.predicted among non-blacks MDRD (S/P/Bld) [Vol rate/Area] 91 mL/min/{1.73_m2} Normal >60 [facility] Comment on above: Result Comment: mL/m in/1.73m2 CKD-EPI Creatinine Equation (2020) Performed By: #### L 500.2500 ####[facility] [address] [place], [address] Glucose [Mass/Vol] 324 mg/dL High 70-99 [facility] Comment on above: Performed By: #### L 500.2500 ####[facility] [address] [place], [address] Potassium [Moles/Vol] 5.1 mmol/L Normal 3.3-5.1 [facility] Comment on above: Result Comment: Hemo lysis present, Results??could be affected.?? Performed By: #### L 500.2500 ####[facility] [address] [place], [address] Sodium [Moles/Vol] 134 mmol/L Normal 133-145 [facility] Comment on above: Performed By: #### L 500.2500 ####[facility] [address] [place], [address] BUN Normal 4-19 [facility] Comment on above: Result Comment: Canc elled via OM: MD Ordered Performed By: #### L 500.2500, L100.0100 ####[facility] [address] [place], [address] BUN/CRE Normal 10-20 [facility] Comment on above: Result Comment: Canc elled via OM: MD Ordered Performed By: #### L 500.2500, L100.0100 ####[facility] [address] [place], [address] Calcium Normal 7.6-11.0 [facility] Comment on above: Result Comment: Canc elled via OM: MD Ordered Performed By: #### L 500.2500, L100.0100 ####[facility] [address] [place], [address] CL Normal 98-108 [facility] Comment on above: Result Comment: Canc elled via OM: MD Ordered Performed By: #### L 500.2500, L100.0100 ####[facility] [address] [place], [address] CO2 Normal 21.0-32.0 [facility] Comment on above: Result Comment: Canc elled via OM: MD Ordered Performed By: #### L 500.2500, L100.0100 ####[facility] [address] [place], [address] CREAT,SERUM Normal 0.70-1.20 [facility] Comment on above: Result Comment: Canc elled via OM: MD Ordered Performed By: #### L 500.2500, L100.0100 ####[facility] [address] [place], [address] eGFR Normal >60 [facility] Comment on above: Result Comment: Canc elled via OM: MD Ordered Performed By: #### L 500.2500, L100.0100 ####[facility] [address] [place], [address] GAP Normal 5-15 [facility] Comment on above: Result Comment: Canc elled via OM: MD Ordered Performed By: #### L 500.2500, L100.0100 ####[facility] [address] [place], [address] GLU Normal 70-99 [facility] Comment on above: Result Comment: Canc elled via OM: MD Ordered Performed By: #### L 500.2500, L100.0100 ####[facility] [address] [place], [address] Potassium Normal 3.3-5.1 [facility] Comment on above: Result Comment: Canc elled via OM: MD Ordered Performed By: #### L 500.2500, L100.0100 ####[facility] [address] [place], [address] Basic Metabolic Profile (BMP) Normal 133-145 [facility] Comment on above: Result Comment: Canc elled via OM: MD Ordered Performed By: #### L 500.2500, L100.0100 ####[facility] [address] [place], [address] Basophil percentageOrdered B y: Chato Newberry on 01-11-2025 Basophils/100 WBC (Bld) 0.7 % 0-1 [facility] Bedside Glucoseon 01-11-2025 FINGERSTICK GLU 280 mg/dL High 74-106 [facility] Comment on above: Result Comment: KAZ YUN OF PATIENT CARE PER NURSING PROTOCOL Performed By: #### L 501.080 ####[facility] [address] [place], [address] FINGERSTICK GLU 323 mg/dL High 74-106 [facility] Comment on above: Result Comment: KAZ GEMENT OF PATIENT CARE PER NURSING PROTOCOL Performed By: #### L 501.080 ####[facility] [address] [place], [address] FINGERSTICK GLU 286 mg/dL High 74-106 [facility] Comment on above: Result Comment: KAZ GEMENT OF PATIENT CARE PER NURSING PROTOCOL Performed By: #### L 501.080 ####[facility] [address] [place], [address] Beta-Hydroxbytyrateon 2024 BETA-HYDROXYBUT 10.5 mmol/L High 0.0-0.3 [facility] Comment on above: Performed By: #### L 501.6901 ####[facility] [address] [place], [address] Beta-hydroxybutyrateOrdered By: Meena Lyon on 01-11-2025 Beta hydroxybutyrate [Mass/Vol] 10.5 mmol/L High 0.0-0.3 [facility] Bilirubin Test strip Ql (U)O rdered By: Chato Newberry on 01-11-2025 Bilirubin Ql (U) Negative Negative [facility] CBC W/Diff, Automatedon 07-0 Absolute Lymph 1.14 X10 3/uL Normal 0.83-4.51 [facility] Comment on above: Performed By: #### L 500.2500, L100.0100 ####[facility] [address] [place], [address] Absolute Neut 10.4 X10 3/uL High 2.0-7.7 [facility] Comment on above: Performed By: #### L 500.2500, L100.0100 ####[facility] [address] [place], [address] Basophils/100 WBC (Bld) 0.7 % Normal 0-1 [facility] Comment on above: Performed By: #### L 500.2500, L100.0100 ####[facility] [address] [place], [address] Eosinophils/100 WBC (Bld) 0.0 % Normal 0-5 [facility] Comment on above: Performed By: #### L 500.2500, L100.0100 ####[facility] [address] [place], [address] Erythrocyte distribution width (RBC) [Ratio] 14.6 % Normal 11.6-14.6 [facility] Comment on above: Performed By: #### L 500.2500, L100.0100 ####[facility] [address] [place], [address] Hematocrit (Bld) [Volume fraction] 43.1 % Normal 37-47 [facility] Comment on above: Performed By: #### L 500.2500, L100.0100 ####[facility] [address] [place], [address] Hemoglobin (Bld) [Mass/Vol] 13.0 g/dL Normal 12.0-15.0 [facility] Comment on above: Performed By: #### L 500.2500, L100.0100 ####[facility] [address] [place], [address] IG% 0.500 Normal 0.0-0.9 [facility] Comment on above: Result Comment: IG% - Immature Granulocytes (promyelocytes, myelocytes andmetamyelocytes) > 1% indicates that a LEFT SHIFT is Present. Performed By: #### L 500.2500, L100.0100 ####[facility] [address] [place], [address] Lymphocytes/100 WBC (Bld) 9.4 % Low 19-41 [facility] Comment on above: Performed By: #### L 500.2500, L100.0100 ####[facility] [address] [place], [address] MCH (RBC) [Entitic mass] 29.2 pg Normal 27.0-32.0 [facility] Comment on above: Performed By: #### L 500.2500, L100.0100 ####[facility] [address] [place], [address] MCHC (RBC) [Mass/Vol] 30.2 g/dL Low 32-36 [facility] Comment on above: Performed By: #### L 500.2500, L100.0100 ####[facility] [address] [place], [address] MCV (RBC) [Entitic vol] 96.9 fL Normal 81-99 [facility] Comment on above: Performed By: #### L 500.2500, L100.0100 ####[facility] [address] [place], [address] Monocytes/100 WBC (Bld) 4.1 % Normal 0-10 [facility] Comment on above: Performed By: #### L 500.2500, L100.0100 ####[facility] [address] [place], [address] Neutrophils/100 WBC (Bld) 85.3 % High 47-70 [facility] Comment on above: Performed By: #### L 500.2500, L100.0100 ####[facility] [address] [place], [address] Nucleated RBC (Bld) [#/Vol] 0 10*3/uL Normal 0-5 [facility] Comment on above: Performed By: #### L 500.2500, L100.0100 ####[facility] [address] [place], [address] Platelet mean volume (Bld) [Entitic vol] 10.2 fL Normal 6.2-12.0 [facility] Comment on above: Performed By: #### L 500.2500, L100.0100 ####[facility] [address] [place], [address] Platelets (Bld) [#/Vol] 365 10*3/uL Normal 150-450 [facility] Comment on above: Performed By: #### L 500.2500, L100.0100 ####[facility] [address] [place], [address] RBC (Bld) [#/Vol] 4.45 10*6/uL Normal 4.2-5.4 [facility] Comment on above: Performed By: #### L 500.2500, L100.0100 ####[facility] [address] [place], [address] RDW SD 52.6 fl High 35.1-43.9 [facility] Comment on above: Performed By: #### L 500.2500, L100.0100 ####[facility] [address] [place], [address] WBC (Bld) [#/Vol] 12.2 10*3/uL High 4.4-11.0 [facility] Comment on above: Performed By: #### L 500.2500, L100.0100 ####[facility] [address] [place], [address] CO2 (BldV) [Moles/Vol]Ordere d By: Andrew Cormier on 01-11-2025 CO2 [Moles/Vol] 6 mmol/L Low 23-33 [facility] Carbon dioxide, total [Moles /volume] in Central venous bloodOrdered By: Chato Newberry on 01-11-2025 CO2 [Moles/Vol] 4.2 mmol/L Invalid Interpretation Code 21.0-32.0 [facility] Comment on above: Critical Result(s) C alled at 2339: by: DERIC TO LSPARR Results read back by same. Result Comment: Crit ical Result(s) Called at 2339: by: DERIC TAYLOR??Results read back by same. Performed By: #### L 501.7300, L501.5200, L500.2500 ####[facility] [address] [place], [address] Chest 1 View (Portable)on Chest 1 View (Portable) Normal [facility] Chloride assayOrdered By: Juan M Rohith on 01-11-2025 Chloride [Moles/Vol] 102 mmol/L Normal 98-108 [facility] Comment on above: Performed By: #### L 501.7300, L501.5200, L500.2500 ####[facility] [address] [facility] [address] [place], [place], [address] Emergency Department Summary on 01-11-2025 Emergency Department Summary Normal [facility] Eosinophil percentageOrdered By: Chatolima Newberry on 01-11-2025 Eosinophils/100 WBC (Bld) 0.0 % 0-5 [facility] Erythrocyte distribution wid th ratioOrdered By: [facility] Erythrocyte distribution width (RBC) [Ratio] 14.6 % 11.6-14.6 [facility] Erythrocyte distribution wid th standard deviationOrdered By: [facility] on 01-11-2025 Erythrocyte distribution width (RBC) [Ratio] 52.6 fl High 35.1-43.9 [facility] Glomerular filtration rate ( GFR) estimation/1.73 sq m using serum, plasma, or whole bOrdered By: Chato Newberry on 01-11-2025 GFR/1.73 sq M.predicted among non-blacks MDRD (S/P/Bld) [Vol rate/Area] 98 mL/min/{1.73_m2} Normal >60 [facility] Comment on above: mL/min/1.73m2 CKD-EP I Creatinine Equation (2020) Result Comment: mL/m in/1.73m2 CKD-EPI Creatinine Equation (2020) Performed By: #### L 501.7300, L501.5200, L500.2500 ####[facility] [address] [place], [address] Glucose measurement at bedsi deOrdered By: Andrew Cormier on 01-11-2025 Glucose [Mass/Vol] 280 mg/dL High 74-106 [facility] Comment on above: MANAGEMENT OF PATIEN T CARE PER NURSING PROTOCOL H AND P Exam - [facility] 01-11-2025 H&P Exam - Hospitalist Normal [facility] Hematocrit Auto (Bld) [Volum e fraction]Ordered By: Chato Newberry on 01-11-2025 Hematocrit (Bld) [Volume fraction] 43.1 % 37-47 [facility] Hemoglobin A1c percentageOrd ered By: Andrew Cormier on 01-11-2025 HbA1c (Bld) [Mass fraction] 10.1 % High <5.7 [facility] Comment on above: Normal < 5.7 % Predi abetic 5.7 - 6.4 % Diabetic >or= 6.5 % Please note range changes. Hemoglobin measurementOrdere d By: Chato Newberry on 01-11-2025 Hemoglobin (Bld) [Mass/Vol] 13.0 g/dL 12.0-15.0 [facility] Immature granulocytes/100 WB C Auto (Bld)Ordered By: Chato Newberry on 01-11-2025 Immature granulocytes/100 WBC (Bld) 0.500 % 0.0-0.9 [facility] Comment on above: IG% - Immature Granu locytes (promyelocytes, myelocytes and metamyelocytes) > 1% indicates that a LEFT SHIFT is Present. Ketones Test strip Ql (U)Ord ered By: Chato Newberry on 01-11-2025 Ketones Ql (U) 150 mg/dl Abnormal Negative [facility] Comment on above: CRITICAL VALUE *HCRI TICAL VALUE CALLED TO [id number] 224 Karthik Nugent.RESULTS READ BACK BY SAME. MCV (mean corpuscular volume ) determinationOrdered By: Chato Newberry on 01-11-2025 MCV (RBC) [Entitic vol] 96.9 fL 81-99 [facility] Magnesiumon 01-11-2025 Magnesium [Mass/Vol] 1.7 mg/dL Normal 1.5-2.2 [facility] Comment on above: Performed By: #### L 501.7300, L501.5200, L500.2500 ####[facility] [address] [place], [address] Magnesium measurement (mass/ volume)Ordered By: Andrew Cormier on 01-11-2025 Magnesium (Unsp spec) [Mass/Vol] 1.7 mg/dL 1.5-2.2 [facility] Mean corpuscular hemoglobin (MCH) determinationOrdered By: Chatolima Newberry on 01-11-2025 MCH (RBC) [Entitic mass] 29.2 pg 27.0-32.0 [facility] Mean corpuscular hemoglobin concentration (MCHC) determinationOrdered By: Chatolima Newberry on 01-11-2025 MCHC (RBC) [Mass/Vol] 30.2 g/dL Low 32-36 [facility] Mean platelet volume determi nationOrdered By: Chato Newberry on 01-11-2025 Platelet mean volume (Bld) [Entitic vol] 10.2 fL 6.2-12.0 [facility] Microscopic analysis of urin e for red blood cells (RBC)Ordered By: Chato Newberry on 01-11-2025 Microscopic analysis of urine for red blood cells (RBC) 0 SEEN /hpf 0-5 [facility] Monocyte percentageOrdered B y: Chato Newberry on 01-11-2025 Monocytes/100 WBC (Bld) 4.1 % 0-10 [facility] Mucus LM Ql (Urine sed)Order ed By: Chato Newberry on 01-11-2025 Mucus Ql (Urine sed) 0 SEEN /hpf [facility] Neutrophil percentageOrdered By: Chatolima Newberry on 01-11-2025 Neutrophils/100 WBC (Bld) 85.3 % High 47-70 [facility] Nitrite Test strip Ql (U)Ord ered By: Chato Newberry on 01-11-2025 Nitrite Ql (U) Negative Negative [facility] No Panel InformationOrdered By: Andrew Cormier on 01-11-2025 Bld Gas Crit Called To/Read Back By Yes [facility] Blood Gas Notified Time 22:19:19 [facility] Blood Gas Notified Whom W [facility] Blood Gas Sample Site Not entered [facility] Blood Gas Specimen Type BETHANY [facility] Oxygen Delivery Device Not entered [facility] Nucleated red blood cell per centageOrdered By: Chato Newberry on 01-11-2025 Nucleated RBC/100 WBC (Bld) [Ratio] 0 % 0-5 [facility] Platelet countOrdered By: Juan M Newberry on 01-11-2025 Platelets (Bld) [#/Vol] 365 10*3/uL 150-450 [facility] Potassium measurement (mass/ volume)Ordered By: Chato Newberry on 01-11-2025 Potassium (Unsp spec) [Mass/Vol] 5.0 mmol/L 3.3-5.1 [facility] Comment on above: Hemolysis present, R esults could be affected. ,Urineon 01-11-2025 Beta HCG ( test) Ql (U) Negative Normal [facility] Comment on above: Result Comment: Very dilute urine specimens, as indicated by a low specificgravity, may not contain hvac sales representative levels of hCG.If is still suspected, a first morning urinespecimen should be collected 48 hours later and tested. Performed By: #### L 400.7600 ####[facility] [address] [place], [place], [address] Protein Test strip Ql (U)Ord ered By: Chato Newberry on 01-11-2025 Protein Ql (U) 30 mg/dl High Negative [facility] RBC Auto (Bld) [#/Vol]Ordere d By: Chato Newberry on 01-11-2025 RBC (Bld) [#/Vol] 4.45 10*6/uL 4.2-5.4 [facility] Serum creatinine measurement (mass/volume)Ordered By: Chtao Newberry on 01-11-2025 Creatinine [Mass/Vol] 0.80 mg/dL Normal 0.70-1.20 [facility] Comment on above: Performed By: #### L 501.7300, L501.5200, L500.2500 ####[facility] [address] [place], [address] Serum glucose measurement (m ass/volume)Ordered By: Chato Newberry on 01-11-2025 Glucose [Mass/Vol] 291 mg/dL High 70-99 [facility] Comment on above: Performed By: #### L 501.7300, L501.5200, L500.2500 ####[facility] [address] [place], [address] Serum or plasma calcium xin urement (mass/volume)Ordered By: Chato Newberry on 01-11-2025 Calcium [Mass/Vol] 8.4 mg/dL Normal 7.6-11.0 [facility] Comment on above: Performed By: #### L 501.7300, L501.5200, L500.2500 ####[facility] [address] [place], [address] Serum or plasma urea nitroge n measurement (mass/volume)Ordered By: Chato Newberry on 01-11-2025 Urea nitrogen [Mass/Vol] 7 mg/dL Normal 4-19 [facility] Comment on above: Performed By: #### L 501.7300, L501.5200, L500.2500 ####[facility] [address] [place], [address] Performed By: #### L 500.2500 ####[facility] [address] [place], [address] Sodium levelOrdered By: Chato Newberry on 01-11-2025 Sodium [Moles/Vol] 135 mmol/L Normal 133-145 [facility] Comment on above: Performed By: #### L 501.7300, L501.5200, L500.2500 ####[facility] [address] [place], [address] Squamous epithelial cells de tection in urine sediment by light microscopyOrdered By: Chato Newberry on 01-11-2025 Epithelial cells.squamous LM Ql (Urine sed) 0-5 SEEN /hpf 5-10 [facility] Urinalysis, Completeon 01-11 BACTERIA 2+ /hpf Normal None Seen [facility] Comment on above: Order Comment: CLEAN CATCH Performed By: #### L 400.0001 ####[facility] [address] [place], [address] EPI,SQUAMOUS 0-5 SEEN Normal 5-10 [facility] Comment on above: Order Comment: CLEAN CATCH Performed By: #### L 400.0001 ####[facility] [address] [place], [address] Mucus Ql (Urine sed) 0 SEEN Normal [facility] Comment on above: Order Comment: CLEAN CATCH Performed By: #### L 400.0001 ####[facility] [address] [place], [address] RBC 0 SEEN Normal 0-5 [facility] Comment on above: Order Comment: CLEAN CATCH Performed By: #### L 400.0001 ####[facility] [address] [place], [address] WBC 0 SEEN Normal 0-5 [facility] Comment on above: Order Comment: CLEAN CATCH Performed By: #### L 400.0001 ####[facility] [address] [place], [address] Urine clarityOrdered By: Chato Newberry on 01-11-2025 Clarity (U) Clear Clear [facility] Urine color determinationOrd ered By: Chato Newberry on 01-11-2025 Color (U) Yellow Yellow [facility] Urine glucose detectionOrder ed By: Chato Newberry on 01-11-2025 Glucose Ql (U) 1000 mg/dl High Normal [facility] Urine leukocyte esterase det ection by dipstickOrdered By: Chato Newberry on 01-11-2025 Leukocyte esterase Test strip Ql (U) Negative Negative [facility] Urine pHOrdered By: Chato nugent on 01-11-2025 pH (U) 6.0 [pH] 5.0 - 8.0 [facility] Urine testOrdered By: Andrew Cormier on 01-11-2025 HCG ( test) Ql (U) Negative [facility] Comment on above: Very dilute urine sp ecimens, as indicated by a low specificgravity, may not contain hvac sales representative levels of hCG. If is still suspected, a first morning urinespecimen should be collected 48 hours later and tested. Urine sediment bacteria coun t by microscopy (number/high power field)Ordered By: Chato Newberry on 01-11-2025 Bacteria LM.HPF (Urine sed) [#/Area] 2 /[HPF] None Seen [facility] Urine specific gravity measu rementOrdered By: Chato Newberry on 01-11-2025 Specific gravity (U) [Rel density] 1.030 1.002-1.030 [facility] Urine urobilinogen measureme ntOrdered By: Chato Newberry on 01-11-2025 Urobilinogen Ql (U) Normal mg/dl Normal [facility] Venous Blood Gason 5 Blood Gas Type BETHANY Normal [facility] Comment on above: Performed By: #### L 9000.0810 ####[facility] [address] [place], [address] CO2 [Moles/Vol] 6 mmol/L Low 23-33 [facility] Comment on above: Performed By: #### L 9000.0810 ####[facility] [address] [place], [address] HCO3 (Bld) [Moles/Vol] 6 mmol/L Low 22-26 [facility] Comment on above: Performed By: #### L 9000.0810 ####[facility] [address] [place], [address] O2 Delivery Dev Not entered Normal [facility] Comment on above: Performed By: #### L 9000.0810 ####[facility] [address] [place], [address] Read Back By Yes [facility] Comment on above: Performed By: #### L 9000.0810 ####[facility] [address] [place], [address] Results To [facility] Comment on above: Performed By: #### L 9000.0810 ####[facility] [address] [place], [address] SITE Not entered [facility] Comment on above: Performed By: #### L 9000.0810 ####[facility] [address] [place], [address] Time Given 22:19:19 [facility] Comment on above: Performed By: #### L 9000.0810 ####[facility] [address] [place], [address] VBG BE -25 mmol/L Low -1.0-3.5 [facility] Comment on above: Performed By: #### L 9000.0810 ####[facility] [address] [place], [address] VBG pCO2 22.4 mmHg Low 41-51 [facility] Comment on above: Performed By: #### L 9000.0810 ####[facility] [address] [place], [address] VBG pH 7.02 Invalid Interpretation Code 7.32-7.42 [facility] Comment on above: Performed By: #### L 9000.0810 ####[facility] [address] [place], [address] VBG PO2 60 mmHg High 25-40 [facility] Comment on above: Performed By: #### L 9000.0810 ####[facility] [address] [place], [address] VBG SO2 77 High 50-70 [facility] Comment on above: Performed By: #### L 9000.0810 ####[facility] [address] [place], [place], [address] Venous blood base excess reji surementOrdered By: Andrew Cormier on 01-11-2025 Base excess Calc (BldV) [Moles/Vol] -25 mmol/L Low -1.0-3.5 [facility] Venous blood bicarbonate reji surementOrdered By: Andrew Cormier on 01-11-2025 HCO3 (Bld) [Moles/Vol] 6 mmol/L Low 22-26 [facility] Venous blood oxygen saturati on measurementOrdered By: Andrew Cormier on 01-11-2025 Oxygen saturation in Blood 77 % High 50-70 [facility] Venous blood pH measurementO rdered By: Andrew Cormier on 01-11-2025 pH (BldV) 7.02 [pH] Low 7.32-7.42 [facility] Venous blood partial pressur e of carbon dioxide measurementOrdered By: Andrew Cormier on 01-11-2025 CO2 (BldV) [Partial pressure] 22.4 mm[Hg] Low 41-51 [facility] Venous blood partial pressur e of oxygen measurementOrdered By: Andrew Cormier on 01-11-2025 Oxygen (BldV) [Partial pressure] 60 mm[Hg] High 25-40 [facility] White blood cell (WBC) count Ordered By: Chato Newberry on 01-11-2025 WBC (Bld) [#/Vol] 12.2 10*3/uL High 4.4-11.0 [facility] White blood cell countOrdere d By: Chato Newberry on 01-11-2025 White blood cell count 0 SEEN /hpf 0-5 [facility] CBC W/Diff, Automatedon - Absolute Neut Normal 2.0-7.7 [facility] Comment on above: Result Comment: Canc elled via OM: Order cancelled - Patient discharged Performed By: #### L 100.0100 ####[facility] [address] [place], [address] HCT Normal 37-47 [facility] Comment on above: Result Comment: Canc elled via OM: Order cancelled - Patient discharged Performed By: #### L 100.0100 ####[facility] [address] [place], [address] HGB Normal 12.0-15.0 [facility] Comment on above: Result Comment: Canc elled via OM: Order cancelled - Patient discharged Performed By: #### L 100.0100 ####[facility] [address] [place], [address] MCH Normal 27.0-32.0 [facility] Comment on above: Result Comment: Canc elled via OM: Order cancelled - Patient discharged Performed By: #### L 100.0100 ####[facility] [address] [place], [address] MCHC Normal 32-36 [facility] Comment on above: Result Comment: Canc elled via OM: Order cancelled - Patient discharged Performed By: #### L 100.0100 ####[facility] [address] [place], [address] MCV Normal 81-99 [facility] Comment on above: Result Comment: Canc elled via OM: Order cancelled - Patient discharged Performed By: #### L 100.0100 ####[facility] [address] [place], [address] NEUT% Normal 47-70 [facility] Comment on above: Result Comment: Canc elled via OM: Order cancelled - Patient discharged Performed By: #### L 100.0100 ####[facility] [address] [place], [address] PLT Normal 150-450 [facility] Comment on above: Result Comment: Canc elled via OM: Order cancelled - Patient discharged Performed By: #### L 100.0100 ####[facility] [address] [place], [address] RBC Normal 4.2-5.4 [facility] Comment on above: Result Comment: Canc elled via OM: Order cancelled - Patient discharged Performed By: #### L 100.0100 ####[facility] [address] [place], [address] RDW CV Normal 11.6-14.6 [facility] Comment on above: Result Comment: Canc elled via OM: Order cancelled - Patient discharged Performed By: #### L 100.0100 ####[facility] [address] [place], [address] RDW SD Normal 35.1-43.9 [facility] Comment on above: Result Comment: Canc elled via OM: Order cancelled - Patient discharged Performed By: #### L 100.0100 ####[facility] [address] [place], [address] WBC Normal 4.4-11.0 [facility] Comment on above: Result Comment: Canc elled via OM: Order cancelled - Patient discharged Performed By: #### L 100.0100 ####[facility] [address] [place], [address] CBC W/Diff, Automatedon 03-2 Absolute Neut Normal 2.0-7.7 [facility] Comment on above: Result Comment: Canc elled via OM: Order cancelled - Patient discharged Performed By: #### L 100.0100 ####[facility] [address] [place], [address] HCT Normal 37-47 [facility] Comment on above: Result Comment: Canc elled via OM: Order cancelled - Patient discharged Performed By: #### L 100.0100 ####[facility] [address] [place], [address] HGB Normal 12.0-15.0 [facility] Comment on above: Result Comment: Canc elled via OM: Order cancelled - Patient discharged Performed By: #### L 100.0100 ####[facility] [address] [place], [address] MCH Normal 27.0-32.0 [facility] Comment on above: Result Comment: Canc elled via OM: Order cancelled - Patient discharged Performed By: #### L 100.0100 ####[facility] [address] [place], [address] MCHC Normal 32-36 [facility] Comment on above: Result Comment: Canc elled via OM: Order cancelled - Patient discharged Performed By: #### L 100.0100 ####[facility] [address] [place], [address] MCV Normal 81-99 [facility] Comment on above: Result Comment: Canc elled via OM: Order cancelled - Patient discharged Performed By: #### L 100.0100 ####[facility] [address] [place], [address] NEUT% Normal 47-70 [facility] Comment on above: Result Comment: Canc elled via OM: Order cancelled - Patient discharged Performed By: #### L 100.0100 ####[facility] [address] [place], [address] PLT Normal 150-450 [facility] Comment on above: Result Comment: Canc elled via OM: Order cancelled - Patient discharged Performed By: #### L 100.0100 ####[facility] [address] [place], [address] RBC Normal 4.2-5.4 [facility] Comment on above: Result Comment: Canc elled via OM: Order cancelled - Patient discharged Performed By: #### L 100.0100 ####[facility] [address] [place], [address] RDW CV Normal 11.6-14.6 [facility] Comment on above: Result Comment: Canc elled via OM: Order cancelled - Patient discharged Performed By: #### L 100.0100 ####[facility] [address] [place], [address] RDW SD Normal 35.1-43.9 [facility] Comment on above: Result Comment: Canc elled via OM: Order cancelled - Patient discharged Performed By: #### L 100.0100 ####[facility] [address] [place], [address] WBC Normal 4.4-11.0 [facility] Comment on above: Result Comment: Canc elled via OM: Order cancelled - Patient discharged Performed By: #### L 100.0100 ####[facility] [address] [place], [address] CBC W/Diff, Automatedon - Absolute Neut Normal 2.0-7.7 [facility] Comment on above: Result Comment: Canc elled via OM: Order cancelled - Patient discharged Performed By: #### L 100.0100 ####[facility] [address] [place], [address] HCT Normal 37-47 [facility] Comment on above: Result Comment: Canc elled via OM: Order cancelled - Patient discharged Performed By: #### L 100.0100 ####[facility] [address] [place], [address] HGB Normal 12.0-15.0 [facility] Comment on above: Result Comment: Canc elled via OM: Order cancelled - Patient discharged Performed By: #### L 100.0100 ####[facility] [address] [place], [address] MCH Normal 27.0-32.0 [facility] Comment on above: Result Comment: Canc elled via OM: Order cancelled - Patient discharged Performed By: #### L 100.0100 ####[facility] [address] [place], [address] MCHC Normal 32-36 [facility] Comment on above: Result Comment: Canc elled via OM: Order cancelled - Patient discharged Performed By: #### L 100.0100 ####[facility] [address] [place], [address] MCV Normal 81-99 [facility] Comment on above: Result Comment: Canc elled via OM: Order cancelled - Patient discharged Performed By: #### L 100.0100 ####[facility] [address] [place], [address] NEUT% Normal 47-70 [facility] Comment on above: Result Comment: Canc elled via OM: Order cancelled - Patient discharged Performed By: #### L 100.0100 ####[facility] [address] [place], [address] PLT Normal 150-450 [facility] Comment on above: Result Comment: Canc elled via OM: Order cancelled - Patient discharged Performed By: #### L 100.0100 ####[facility] [address] [place], [address] RBC Normal 4.2-5.4 [facility] Comment on above: Result Comment: Canc elled via OM: Order cancelled - Patient discharged Performed By: #### L 100.0100 ####[facility] [address] [place], [address] RDW CV Normal 11.6-14.6 [facility] Comment on above: Result Comment: Canc elled via OM: Order cancelled - Patient discharged Performed By: #### L 100.0100 ####[facility] [address] [place], [address] RDW SD Normal 35.1-43.9 [facility] Comment on above: Result Comment: Canc elled via OM: Order cancelled - Patient discharged Performed By: #### L 100.0100 ####[facility] [address] [place], [address] WBC Normal 4.4-11.0 [facility] Comment on above: Result Comment: Canc elled via OM: Order cancelled - Patient discharged Performed By: #### L 100.0100 ####[facility] [address] [place], [address] CBC W/Diff, Automatedon - Absolute Neut Normal 2.0-7.7 [facility] Comment on above: Result Comment: Canc elled via OM: Order cancelled - Patient discharged Performed By: #### L 100.0100 ####[facility] [address] [place], [address] HCT Normal 37-47 [facility] Comment on above: Result Comment: Canc elled via OM: Order cancelled - Patient discharged Performed By: #### L 100.0100 ####[facility] [address] [place], [address] HGB Normal 12.0-15.0 [facility] Comment on above: Result Comment: Canc elled via OM: Order cancelled - Patient discharged Performed By: #### L 100.0100 ####[facility] [address] [place], [address] MCH Normal 27.0-32.0 [facility] Comment on above: Result Comment: Canc elled via OM: Order cancelled - Patient discharged Performed By: #### L 100.0100 ####[facility] [address] [place], [address] MCHC Normal 32-36 [facility] Comment on above: Result Comment: Canc elled via OM: Order cancelled - Patient discharged Performed By: #### L 100.0100 ####[facility] [address] [place], [address] MCV Normal 81-99 [facility] Comment on above: Result Comment: Canc elled via OM: Order cancelled - Patient discharged Performed By: #### L 100.0100 ####[facility] [address] [place], [address] NEUT% Normal 47-70 [facility] Comment on above: Result Comment: Canc elled via OM: Order cancelled - Patient discharged Performed By: #### L 100.0100 ####[facility] [address] [place], [address] PLT Normal 150-450 [facility] Comment on above: Result Comment: Canc elled via OM: Order cancelled - Patient discharged Performed By: #### L 100.0100 ####[facility] [address] [place], [address] RBC Normal 4.2-5.4 [facility] Comment on above: Result Comment: Canc elled via OM: Order cancelled - Patient discharged Performed By: #### L 100.0100 ####[facility] [address] [place], [address] RDW CV Normal 11.6-14.6 [facility] Comment on above: Result Comment: Canc elled via OM: Order cancelled - Patient discharged Performed By: #### L 100.0100 ####[facility] [address] [place], [address] RDW SD Normal 35.1-43.9 [facility] Comment on above: Result Comment: Canc elled via OM: Order cancelled - Patient discharged Performed By: #### L 100.0100 ####[facility] [address] [place], [address] WBC Normal 4.4-11.0 [facility] Comment on above: Result Comment: Canc elled via OM: Order cancelled - Patient discharged Performed By: #### L 100.0100 ####[facility] [address] [place], [address] CBC W/Diff, Automatedon 03-2 Absolute Neut Normal 2.0-7.7 [facility] Comment on above: Result Comment: Canc elled via OM: Order cancelled - Patient discharged Performed By: #### L 100.0100 ####[facility] [address] [place], [address] HCT Normal 37-47 [facility] Comment on above: Result Comment: Canc elled via OM: Order cancelled - Patient discharged Performed By: #### L 100.0100 ####[facility] [address] [place], [address] HGB Normal 12.0-15.0 [facility] Comment on above: Result Comment: Canc elled via OM: Order cancelled - Patient discharged Performed By: #### L 100.0100 ####[facility] [address] [place], [address] MCH Normal 27.0-32.0 [facility] Comment on above: Result Comment: Canc elled via OM: Order cancelled - Patient discharged Performed By: #### L 100.0100 ####[facility] [address] [place], [address] MCHC Normal 32-36 [facility] Comment on above: Result Comment: Canc elled via OM: Order cancelled - Patient discharged Performed By: #### L 100.0100 ####[facility] [address] [place], [address] MCV Normal 81-99 [facility] Comment on above: Result Comment: Canc elled via OM: Order cancelled - Patient discharged Performed By: #### L 100.0100 ####[facility] [address] [place], [address] NEUT% Normal 47-70 [facility] Comment on above: Result Comment: Canc elled via OM: Order cancelled - Patient discharged Performed By: #### L 100.0100 ####[facility] [address] [place], [address] PLT Normal 150-450 [facility] Comment on above: Result Comment: Canc elled via OM: Order cancelled - Patient discharged Performed By: #### L 100.0100 ####[facility] [address] [place], [address] RBC Normal 4.2-5.4 [facility] Comment on above: Result Comment: Canc elled via OM: Order cancelled - Patient discharged Performed By: #### L 100.0100 ####[facility] [address] [place], [address] RDW CV Normal 11.6-14.6 [facility] Comment on above: Result Comment: Canc elled via OM: Order cancelled - Patient discharged Performed By: #### L 100.0100 ####[facility] [address] [place], [address] RDW SD Normal 35.1-43.9 [facility] Comment on above: Result Comment: Canc elled via OM: Order cancelled - Patient discharged Performed By: #### L 100.0100 ####[facility] [address] [place], [address] WBC Normal 4.4-11.0 [facility] Comment on above: Result Comment: Canc elled via OM: Order cancelled - Patient discharged Performed By: #### L 100.0100 ####[facility] [address] [place], [address] Urine Cultureon 09-30-2024 URC Below infection level. Mixed Gram Pos Gram Neg Org [place] Count 1000-10,000 MIXC Mixed contaminants. Submit a new specimen if indicated. Normal [facility] Comment on above: Performed By: #### M 100.2200 ####[facility] [address] [place], [address] Basic Metabolic Profile (BMP )on 09-29-2024 BUN Normal 4-19 [facility] Comment on above: Result Comment: Canc elled via OM: Order cancelled - Patient discharged Performed By: #### L 500.2500 ####[facility] [address] [place] [address] BUN/CRE Normal 10-20 [facility] Comment on above: Result Comment: Canc elled via OM: Order cancelled - Patient discharged Performed By: #### L 500.2500 ####[facility] [address] [place] [address] Calcium Normal 7.6-11.0 [facility] Comment on above: Result Comment: Canc elled via OM: Order cancelled - Patient discharged Performed By: #### L 500.2500 ####[facility] [address] [facility] [address] CL Normal 98-108 [facility] Comment on above: Result Comment: Canc elled via OM: Order cancelled - Patient discharged Performed By: #### L 500.2500 ####[facility] [address] [facility] [address] CO2 Normal 21.0-32.0 [facility] Comment on above: Result Comment: Canc elled via OM: Order cancelled - Patient discharged Performed By: #### L 500.2500 ####[facility] [address] [facility] [address] CREAT,SERUM Normal 0.70-1.20 [facility] Comment on above: Result Comment: Canc elled via OM: Order cancelled - Patient discharged Performed By: #### L 500.2500 ####[facility] [address] [place], [address] eGFR Normal >60 [facility] Comment on above: Result Comment: Canc elled via OM: Order cancelled - Patient discharged Performed By: #### L 500.2500 ####[facility] [address] [place], [address] GAP Normal 5-15 [facility] Comment on above: Result Comment: Canc elled via OM: Order cancelled - Patient discharged Performed By: #### L 500.2500 ####[facility] [address] [place], [address] GLU Normal 70-99 [facility] Comment on above: Result Comment: Canc elled via OM: Order cancelled - Patient discharged Performed By: #### L 500.2500 ####[facility] [address] [place], [address] Potassium Normal 3.3-5.1 [facility] Comment on above: Result Comment: Canc elled via OM: Order cancelled - Patient discharged Performed By: #### L 500.2500 ####[facility] [address] [place], [address] Basic Metabolic Profile (BMP) Normal 133-145 [facility] Comment on above: Result Comment: Canc elled via OM: Order cancelled - Patient discharged Performed By: #### L 500.2500 ####[facility] [address] [place], [address] CBC W/Diff, Automatedon 03-2 Absolute Neut Normal 2.0-7.7 [facility] Comment on above: Result Comment: Canc elled via OM: Order cancelled - Patient discharged Performed By: #### L 100.0100 ####[facility] [address] [place], [address] HCT Normal 37-47 [facility] Comment on above: Result Comment: Canc elled via OM: Order cancelled - Patient discharged Performed By: #### L 100.0100 ####[facility] [address] [place], [address] HGB Normal 12.0-15.0 [facility] Comment on above: Result Comment: Canc elled via OM: Order cancelled - Patient discharged Performed By: #### L 100.0100 ####[facility] [address] [place], [address] MCH Normal 27.0-32.0 [facility] Comment on above: Result Comment: Canc elled via OM: Order cancelled - Patient discharged Performed By: #### L 100.0100 ####[facility] [address] [place], [address] MCHC Normal 32-36 [facility] Comment on above: Result Comment: Canc elled via OM: Order cancelled - Patient discharged Performed By: #### L 100.0100 ####[facility] [address] [place], [address] MCV Normal 81-99 [facility] Comment on above: Result Comment: Canc elled via OM: Order cancelled - Patient discharged Performed By: #### L 100.0100 ####[facility] [address] [place], [address] NEUT% Normal 47-70 [facility] Comment on above: Result Comment: Canc elled via OM: Order cancelled - Patient discharged Performed By: #### L 100.0100 ####[facility] [address] [place], [address] PLT Normal 150-450 [facility] Comment on above: Result Comment: Canc elled via OM: Order cancelled - Patient discharged Performed By: #### L 100.0100 ####[facility] [address] [place], [address] RBC Normal 4.2-5.4 [facility] Comment on above: Result Comment: Canc elled via OM: Order cancelled - Patient discharged Performed By: #### L 100.0100 ####[facility] [address] [place], [address] RDW CV Normal 11.6-14.6 [facility] Comment on above: Result Comment: Canc elled via OM: Order cancelled - Patient discharged Performed By: #### L 100.0100 ####[facility] [address] [place], [address] RDW SD Normal 35.1-43.9 [facility] Comment on above: Result Comment: Canc elled via OM: Order cancelled - Patient discharged Performed By: #### L 100.0100 ####[facility] [address] [place], [address] WBC Normal 4.4-11.0 [facility] Comment on above: Result Comment: Canc elled via OM: Order cancelled - Patient discharged Performed By: #### L 100.0100 ####[facility] [address] [place], [address] Absolute lymphocyte countOrd ered By: Maggie Reed on 09-28-2024 Lymphocytes Auto (Unsp spec) [#/Vol] 1.97 10*3/uL 0.83-4.51 [facility] Absolute neutrophil countOrd ered By: Maggie Reed on 09-28-2024 Neutrophils (Bld) [#/Vol] 3.8 10*3/uL 2.0-7.7 [facility] Anion gap in Serum or Plasma Ordered By: Dian Galan on 09-28-2024 Anion gap [Moles/Vol] 15 mmol/L 5-15 [facility] Automated lymphocyte count a s percentage of total leukocytesOrdered By: Maggie Reed on 09-28-2024 Lymphocytes/100 WBC Auto (Unsp spec) 30.8 % 19-41 [facility] BUN/creatinine ratioOrdered By: Dian Glaan on 09-28-2024 Urea nitrogen/Creatinine [Mass ratio] 5.5 mg/mg Low 10-20 [facility] Basic Metabolic Profile (BMP )on 09-28-2024 BUN Normal 4-19 [facility] Comment on above: Result Comment: Canc elled via OM: MD Ordered Performed By: #### L 500.2500 ####[facility] [address] [place], [address] BUN/CRE Normal 10-20 [facility] Comment on above: Result Comment: Canc elled via OM: MD Ordered Performed By: #### L 500.2500 ####[facility] [address] [place], [address] Calcium Normal 7.6-11.0 [facility] Comment on above: Result Comment: Canc elled via OM: MD Ordered Performed By: #### L 500.2500 ####[facility] [address] [place], [address] CL Normal 98-108 [facility] Comment on above: Result Comment: Canc elled via OM: MD Ordered Performed By: #### L 500.2500 ####[facility] [address] [place], [address] CO2 Normal 21.0-32.0 [facility] Comment on above: Result Comment: Canc elled via OM: MD Ordered Performed By: #### L 500.2500 ####[facility] [address] [place], [address] CREAT,SERUM Normal 0.70-1.20 [facility] Comment on above: Result Comment: Canc elled via OM: MD Ordered Performed By: #### L 500.2500 ####[facility] [address] [place], [address] eGFR Normal >60 [facility] Comment on above: Result Comment: Canc elled via OM: MD Ordered Performed By: #### L 500.2500 ####[facility] [address] [place], [address] GAP Normal 5-15 [facility] Comment on above: Result Comment: Canc elled via OM: MD Ordered Performed By: #### L 500.2500 ####[facility] [address] [place], [address] GLU Normal 70-99 [facility] Comment on above: Result Comment: Canc elled via OM: MD Ordered Performed By: #### L 500.2500 ####[facility] [address] [place], [address] Potassium Normal 3.3-5.1 [facility] Comment on above: Result Comment: Canc elled via OM: MD Ordered Performed By: #### L 500.2500 ####[facility] [address] [place], [address] Basic Metabolic Profile (BMP) Normal 133-145 [facility] Comment on above: Result Comment: Canc elled via OM: MD Ordered Performed By: #### L 500.2500 ####[facility] [address] [place], [address] BUN/CRE 5.5 RATIO Low 10-20 [facility] Comment on above: Performed By: #### L 500.2500 ####[facility] [address] [place], [address] Calcium [Mass/Vol] 8.0 mg/dL Normal 7.6-11.0 [facility] Comment on above: Performed By: #### L 500.2500 ####[facility] [address] [place], [address] Chloride [Moles/Vol] 104 mmol/L Normal 98-108 [facility] Comment on above: Performed By: #### L 500.2500 ####[facility] [address] [place], [address] CO2 [Moles/Vol] 14.7 mmol/L Low 21.0-32.0 [facility] Comment on above: Performed By: #### L 500.2500 ####[facility] [address] [place], [address] Creatinine [Mass/Vol] 0.65 mg/dL Low 0.70-1.20 [facility] Comment on above: Performed By: #### L 500.2500 ####[facility] [address] [place], [address] ECRCL 109.51 ml/min Normal 50-250 [facility] Comment on above: Performed By: #### L 500.2500 ####[facility] [address] [place], [address] GAP 15 Normal 5-15 [facility] Comment on above: Performed By: #### L 500.2500 ####[facility] [address] [place], [address] GFR/1.73 sq M.predicted among non-blacks MDRD (S/P/Bld) [Vol rate/Area] 119 mL/min/{1.73_m2} Normal >60 [facility] Comment on above: Result Comment: mL/m in/1.73m2 CKD-EPI Creatinine Equation (2020) Performed By: #### L 500.2500 ####[facility] [address] [place], [address] Glucose [Mass/Vol] 272 mg/dL High 70-99 [facility] Comment on above: Performed By: #### L 500.2500 ####[facility] [address] [place], [address] Potassium [Moles/Vol] 3.6 mmol/L Normal 3.3-5.1 [facility] Comment on above: Performed By: #### L 500.2500 ####[facility] [address] [place], [address] Sodium [Moles/Vol] 133 mmol/L Normal 133-145 [facility] Comment on above: Performed By: #### L 500.2500 ####[facility] [address] [place], [address] Urea nitrogen [Mass/Vol] 4 mg/dL Normal 4-19 [facility] Comment on above: Performed By: #### L 500.2500 ####[facility] [address] [place], [address] BUN/CRE 7.0 RATIO Low 10-20 [facility] Comment on above: Performed By: #### L 500.2500 ####[facility] [address] [place], [address] Calcium [Mass/Vol] 8.0 mg/dL Normal 7.6-11.0 [facility] Comment on above: Performed By: #### L 500.2500 ####[facility] [address] [place], [address] Chloride [Moles/Vol] 108 mmol/L Normal 98-108 [facility] Comment on above: Performed By: #### L 500.2500 ####[facility] [address] [place], [address] CO2 [Moles/Vol] 15.8 mmol/L Low 21.0-32.0 [facility] Comment on above: Performed By: #### L 500.2500 ####[facility] [address] [place], [address] Creatinine [Mass/Vol] 0.61 mg/dL Low 0.70-1.20 [facility] Comment on above: Performed By: #### L 500.2500 ####[facility] [address] [place], [address] ECRCL 116.69 ml/min Normal 50-250 [facility] Comment on above: Performed By: #### L 500.2500 ####[facility] [address] [place], [address] GAP 11 Normal 5-15 [facility] Comment on above: Performed By: #### L 500.2500 ####[facility] [address] [place], [address] GFR/1.73 sq M.predicted among non-blacks MDRD (S/P/Bld) [Vol rate/Area] 120 mL/min/{1.73_m2} Normal >60 [facility] Comment on above: Result Comment: mL/m in/1.73m2 CKD-EPI Creatinine Equation (2020) Performed By: #### L 500.2500 ####[facility] [address] [place], [address] Glucose [Mass/Vol] 114 mg/dL High 70-99 [facility] Comment on above: Performed By: #### L 500.2500 ####[facility] [address] [place], [address] Potassium [Moles/Vol] 3.2 mmol/L Low 3.3-5.1 [facility] Comment on above: Result Comment: Hemo lysis present, Results??could be affected.?? Performed By: #### L 500.2500 ####[facility] [address] [place], [address] Sodium [Moles/Vol] 135 mmol/L Normal 133-145 [facility] Comment on above: Performed By: #### L 500.2500 ####[facility] [address] [place], [address] Urea nitrogen [Mass/Vol] 4 mg/dL Normal 4-19 [facility] Comment on above: Performed By: #### L 500.2500 ####[facility] [address] [place], [address] Potassium [Moles/Vol] 6.1 mmol/L Invalid Interpretation Code 3.3-5.1 [facility] Comment on above: Result Comment: Hemo lysis present, Results??could be affected.??HEMOLYSIS PRESENTHemolysis present, Results??could be affected.??HEMOLYSIS PRESENTRESULT TNP IN MEDITECH AMENDED REPORT 09/28/24 0005 K previously reported as: Test not performed mmol/LHemolysis present, Results??could be affected.??HEMOLYSIS PRESENT Performed By: #### L 500.2500 ####[facility] [address] [place], [address] Basophil percentageOrdered B y: Maggie Reed on 09-28-2024 Basophils/100 WBC (Bld) 0.6 % 0-1 [facility] Bedside Glucoseon 09-28-2024 FINGERSTICK GLU 250 mg/dL High 74-106 [facility] Comment on above: Result Comment: KAZ GEMENT OF PATIENT CARE PER NURSING PROTOCOL Performed By: #### L 501.080 ####[facility] [address] [place], [address] FINGERSTICK GLU 85 mg/dL Normal 74-106 [facility] Comment on above: Result Comment: KAZ GEMENT OF PATIENT CARE PER NURSING PROTOCOL Performed By: #### L 501.080 ####[facility] [address] [place], [address] FINGERSTICK GLU 106 mg/dL Normal 74-106 [facility] Comment on above: Result Comment: KAZ GEMENT OF PATIENT CARE PER NURSING PROTOCOL Performed By: #### L 501.080 ####[facility] [address] [place], [address] FINGERSTICK GLU 123 mg/dL High 74-106 [facility] Comment on above: Result Comment: KAZ GEMENT OF PATIENT CARE PER NURSING PROTOCOL Performed By: #### L 501.080 ####[facility] [address] [place], [address] CBC W/Diff, Automatedon 03-2 -2024 Absolute Lymph 1.97 X10 3/uL Normal 0.83-4.51 [facility] Comment on above: Performed By: #### L 100.0100 ####[facility] [address] [place], [address] Absolute Neut 3.8 X10 3/uL Normal 2.0-7.7 [facility] Comment on above: Performed By: #### L 100.0100 ####[facility] [address] [place], [address] Basophils/100 WBC (Bld) 0.6 % Normal 0-1 [facility] Comment on above: Performed By: #### L 100.0100 ####[facility] [address] [place], [address] Eosinophils/100 WBC (Bld) 1.1 % Normal 0-5 [facility] Comment on above: Performed By: #### L 100.0100 ####[facility] [address] [place], [address] Erythrocyte distribution width (RBC) [Ratio] 16.2 % High 11.6-14.6 [facility] Comment on above: Performed By: #### L 100.0100 ####[facility] [address] [place], [address] Hematocrit (Bld) [Volume fraction] 35.9 % Low 37-47 [facility] Comment on above: Performed By: #### L 100.0100 ####[facility] [address] [place], [address] Hemoglobin (Bld) [Mass/Vol] 11.8 g/dL Low 12.0-15.0 [facility] Comment on above: Performed By: #### L 100.0100 ####[facility] [address] [place], [address] IG% 0.300 Normal 0.0-0.9 [facility] Comment on above: Result Comment: IG% - Immature Granulocytes (promyelocytes, myelocytes andmetamyelocytes) > 1% indicates that a LEFT SHIFT is Present. Performed By: #### L 100.0100 ####[facility] [address] [place], [address] Lymphocytes/100 WBC (Bld) 30.8 % Normal 19-41 [facility] Comment on above: Performed By: #### L 100.0100 ####[facility] [address] [place], [address] MCH (RBC) [Entitic mass] 29.2 pg Normal 27.0-32.0 [facility] Comment on above: Performed By: #### L 100.0100 ####[facility] [address] [place], [address] MCHC (RBC) [Mass/Vol] 32.9 g/dL Normal 32-36 [facility] Comment on above: Performed By: #### L 100.0100 ####[facility] [address] [place], [address] MCV (RBC) [Entitic vol] 88.9 fL Normal 81-99 [facility] Comment on above: Performed By: #### L 100.0100 ####[facility] [address] [place], [address] Monocytes/100 WBC (Bld) 7.5 % Normal 0-10 [facility] Comment on above: Performed By: #### L 100.0100 ####[facility] [address] [place], [address] Neutrophils/100 WBC (Bld) 59.7 % Normal 47-70 [facility] Comment on above: Performed By: #### L 100.0100 ####[facility] [address] [place], [address] Nucleated RBC (Bld) [#/Vol] 0 10*3/uL Normal 0-5 [facility] Comment on above: Performed By: #### L 100.0100 ####[facility] [address] [place], [address] Platelet mean volume (Bld) [Entitic vol] 9.1 fL Normal 6.2-12.0 [facility] Comment on above: Performed By: #### L 100.0100 ####[facility] [address] [place], [address] Platelets (Bld) [#/Vol] 312 10*3/uL Normal 150-450 [facility] Comment on above: Performed By: #### L 100.0100 ####[facility] [address] [place], [address] RBC (Bld) [#/Vol] 4.04 10*6/uL Low 4.2-5.4 [facility] Comment on above: Performed By: #### L 100.0100 ####[facility] [address] [place], [address] RDW SD 53.1 fl High 35.1-43.9 [facility] Comment on above: Performed By: #### L 100.0100 ####[facility] [address] [place], [address] WBC (Bld) [#/Vol] 6.4 10*3/uL Normal 4.4-11.0 [facility] Comment on above: Performed By: #### L 100.0100 ####[facility] [address] [place], [address] Carbon dioxide, total [Moles /volume] in Central venous bloodOrdered By: Dian Galan on 09-28-2024 CO2 [Moles/Vol] 14.7 mmol/L Low 21.0-32.0 [facility] Chloride assayOrdered By: Nia anam Adama on 09-28-2024 Chloride [Moles/Vol] 104 mmol/L 98-108 [facility] Discharge Instructionon 09-07 Discharge Instruction Normal [facility] Eosinophil percentageOrdered By: Maggie Reed on 09-28-2024 Eosinophils/100 WBC (Bld) 1.1 % 0-5 [facility] Erythrocyte distribution wid th ratioOrdered By: Maggie Reed on 09-28-2024 Erythrocyte distribution width (RBC) [Ratio] 16.2 % High 11.6-14.6 [facility] Erythrocyte distribution wid th standard deviationOrdered By: Maggie Reed on 09-28-2024 Erythrocyte distribution width (RBC) [Entitic vol] 53.1 fL High 35.1-43.9 [facility] Erythrocyte distribution width (RBC) [Ratio] 53.1 fl High 35.1-43.9 [facility] Estimation of creatinine patito aranceOrdered By: Dian Galan on 09-28-2024 Estimated Creatinine Clearance Calc 109.51 ml/min 50-250 [facility] GFR/1.73 sq M.predicted rey g non-blacks MDRD (S/P/Bld) [Vol rate/Area]Ordered By: Dian Galan on 09-28-2024 Estimated GFR (MDRD) Non-Af Amer 119 >60 [facility] Comment on above: mL/min/1.73m2 CKD-EP I Creatinine Equation (2020) Glomerular filtration rate ( GFR) estimation/1.73 sq m using serum, plasma, or whole bOrdered By: Dian Galan on 09-28-2024 GFR/1.73 sq M.predicted among non-blacks MDRD (S/P/Bld) [Vol rate/Area] 119 mL/min/{1.73_m2} >60 [facility] Comment on above: mL/min/1.73m2 CKD-EP I Creatinine Equation (2020) Glucose measurement at bedsi deOrdered By: Bryce Julien on 09-28-2024 Bedside Glucose (Misc Panel) 250 mg/dL High 74-106 [facility] Comment on above: MANAGEMENT OF PATIEN T CARE PER NURSING PROTOCOL Glucose [Mass/Vol] 250 mg/dL High 74-106 [facility] Comment on above: MANAGEMENT OF PATIEN T CARE PER NURSING PROTOCOL Hematocrit Auto (Bld) [Volum e fraction]Ordered By: Maggie Reed on 09-28-2024 Hematocrit (Bld) [Volume fraction] 35.9 % Low 37-47 [facility] Hemoglobin measurementOrdere d By: Maggie Reed on 09-28-2024 Hemoglobin (Bld) [Mass/Vol] 11.8 g/dL Low 12.0-15.0 [facility] Immature granulocytes/100 WB C Auto (Bld)Ordered By: Maggie Reed on 09-28-2024 Immature granulocytes/100 WBC (Bld) 0.300 % 0.0-0.9 [facility] Comment on above: IG% - Immature Granu locytes (promyelocytes, myelocytes and metamyelocytes) > 1% indicates that a LEFT SHIFT is Present. Lymphocytes Auto (Unsp spec) [#/Vol]Ordered By: Maggie Reed on 09-28-2024 Lymphocytes (Bld) [#/Vol] 1.97 10*3/uL 0.83-4.51 [facility] Lymphocytes/100 WBC Auto (Un sp spec)Ordered By: Maggie Reed on 09-28-2024 Lymphocytes/100 WBC (Bld) 30.8 % 19-41 [facility] MCV (mean corpuscular volume ) determinationOrdered By: Maggie Reed on 09-28-2024 MCV (RBC) [Entitic vol] 88.9 fL 81-99 [facility] Comment on above: Delta: 94.3 on 09/27-0555 Mean corpuscular hemoglobin (MCH) determinationOrdered By: Maggie Reed on 09-28-2024 MCH (RBC) [Entitic mass] 29.2 pg 27.0-32.0 [facility] Mean corpuscular hemoglobin concentration (MCHC) determinationOrdered By: Maggie Reed on 09-28-2024 MCHC (RBC) [Mass/Vol] 32.9 g/dL 32-36 [facility] Mean platelet volume determi nationOrdered By: Maggie Reed on 09-28-2024 Platelet mean volume (Bld) [Entitic vol] 9.1 fL 6.2-12.0 [facility] Monocyte percentageOrdered B y: Maggie Reed on 09-28-2024 Monocytes/100 WBC (Bld) 7.5 % 0-10 [facility] Neutrophil percentageOrdered By: Maggie Derek on 09-28-2024 Neutrophils/100 WBC (Bld) 59.7 % 47-70 [facility] Nucleated red blood cell per centageOrdered By: Maggieirina Reed on 09-28-2024 Nucleated RBC/100 WBC (Bld) [Ratio] 0 % 0-5 [facility] Platelet countOrdered By: Marium Reed on 09-28-2024 Platelets (Bld) [#/Vol] 312 10*3/uL 150-450 [facility] Potassium (Unsp spec) [Mass/ Vol]Ordered By: Dian Galan on 09-28-2024 Potassium [Moles/Vol] 3.6 mmol/L 3.3-5.1 [facility] Potassium measurement (mass/ volume)Ordered By: Dian Galan on 09-28-2024 Potassium (Unsp spec) [Mass/Vol] 3.6 mmol/L 3.3-5.1 [facility] RBC Auto (Bld) [#/Vol]Ordere d By: Maggie Derek on 09-28-2024 RBC (Bld) [#/Vol] 4.04 10*6/uL Low 4.2-5.4 [facility] Serum creatinine measurement (mass/volume)Ordered By: Dian Galan on 09-28-2024 Creatinine [Mass/Vol] 0.65 mg/dL Low 0.70-1.20 [facility] Serum glucose measurement (m ass/volume)Ordered By: Dian Galan on 09-28-2024 Glucose [Mass/Vol] 272 mg/dL High 70-99 [facility] Serum or plasma calcium xin urement (mass/volume)Ordered By: Dian Galan on 09-28-2024 Calcium [Mass/Vol] 8.0 mg/dL 7.6-11.0 [facility] Serum or plasma urea nitroge n measurement (mass/volume)Ordered By: Dian Galan on 09-28-2024 Urea nitrogen [Mass/Vol] 4 mg/dL 4-19 [facility] Sodium levelOrdered By: Argelia agustin Galan on 09-28-2024 Sodium [Moles/Vol] 133 mmol/L 133-145 [facility] White blood cell (WBC) count Ordered By: Maggie Reed on 09-28-2024 WBC (Bld) [#/Vol] 6.4 10*3/uL 4.4-11.0 [facility] Basic Metabolic Profile (BMP )on 09-27-2024 BUN/CRE 9.0 RATIO Low 10-20 [facility] Comment on above: Performed By: #### L 500.2500 ####[facility] [address] [place], [address] Calcium [Mass/Vol] 8.0 mg/dL Normal 7.6-11.0 [facility] Comment on above: Performed By: #### L 500.2500 ####[facility] [address] [place], [address] Chloride [Moles/Vol] 104 mmol/L Normal 98-108 [facility] Comment on above: Performed By: #### L 500.2500 ####[facility] [address] [place], [address] CO2 [Moles/Vol] 12.3 mmol/L Low 21.0-32.0 [facility] Comment on above: Performed By: #### L 500.2500 ####[facility] [address] [place], [address] Creatinine [Mass/Vol] 0.76 mg/dL Normal 0.70-1.20 [facility] Comment on above: Performed By: #### L 500.2500 ####[facility] [address] [place], [address] ECRCL 93.66 ml/min Normal 50-250 [facility] Comment on above: Performed By: #### L 500.2500 ####[facility] [address] [place], [address] GAP 16 High 5-15 [facility] Comment on above: Performed By: #### L 500.2500 ####[facility] [address] [place], [address] GFR/1.73 sq M.predicted among non-blacks MDRD (S/P/Bld) [Vol rate/Area] 106 mL/min/{1.73_m2} Normal >60 [facility] Comment on above: Result Comment: mL/m in/1.73m2 CKD-EPI Creatinine Equation (2020) Performed By: #### L 500.2500 ####[facility] [address] [place], [address] Glucose [Mass/Vol] 245 mg/dL High 70-99 [facility] Comment on above: Performed By: #### L 500.2500 ####[facility] [address] [place], [address] Potassium [Moles/Vol] 3.5 mmol/L Normal 3.3-5.1 [facility] Comment on above: Performed By: #### L 500.2500 ####[facility] [address] [place], [address] Sodium [Moles/Vol] 132 mmol/L Low 133-145 [facility] Comment on above: Performed By: #### L 500.2500 ####[facility] [address] [place], [address] Urea nitrogen [Mass/Vol] 7 mg/dL Normal 4-19 [facility] Comment on above: Performed By: #### L 500.2500 ####[facility] [address] [place], [address] GAP 18 High 5-15 [facility] Comment on above: Order Comment: Call MD with results STAT Performed By: #### L 500.2500 ####[facility] [address] [place], [address] CO2 [Moles/Vol] 9.8 mmol/L Invalid Interpretation Code 21.0-32.0 [facility] Comment on above: Order Comment: Call MD with results STAT Result Comment: Crit ical Result(s) Called at 09/27/2024-:54 by Adriano Whatley??Results read back by same.Critical Result(s) Called at 09/27/2024:54 by Adriano Whatley??Results read back by same.Critical Result(s) Called at: by:??[facility] AMENDED REPORT 09/27/24 1307 CO2 previously reported as: 9.8 *L mmol/LCritical Result(s) Called at 09/27/2024:54 by Adriano Whatley??Results read back by same. Performed By: #### L 500.2500 ####[facility] [address] [place], [address] BUN/CRE 12.8 RATIO Normal 10-20 [facility] Comment on above: Order Comment: Call MD with results STAT Performed By: #### L 500.2500 ####[facility] [address] [place], [address] Calcium [Mass/Vol] 8.2 mg/dL Normal 7.6-11.0 [facility] Comment on above: Order Comment: Call MD with results STAT Performed By: #### L 500.2500 ####[facility] [address] [place], [address] Chloride [Moles/Vol] 103 mmol/L Normal 98-108 [facility] Comment on above: Order Comment: Call MD with results STAT Performed By: #### L 500.2500 ####[facility] [address] [place], [address] CO2 [Moles/Vol] 8.4 mmol/L Invalid Interpretation Code 21.0-32.0 [facility] Comment on above: Order Comment: Call MD with results STAT Result Comment: Crit ical Result(s) Called at 09/27/2024-12:54 by Adriano Whatley??Results read back by same. Performed By: #### L 500.2500 ####[facility] [address] [place], [address] Creatinine [Mass/Vol] 0.74 mg/dL Normal 0.70-1.20 [facility] Comment on above: Order Comment: Call MD with results STAT Performed By: #### L 500.2500 ####[facility] [address] [place], [address] ECRCL 96.19 ml/min Normal 50-250 [facility] Comment on above: Order Comment: Call MD with results STAT Performed By: #### L 500.2500 ####[facility] [address] [place], [address] GAP 21 High 5-15 [facility] Comment on above: Order Comment: Call MD with results STAT Performed By: #### L 500.2500 ####[facility] [address] [place], [address] GFR/1.73 sq M.predicted among non-blacks MDRD (S/P/Bld) [Vol rate/Area] 108 mL/min/{1.73_m2} Normal >60 [facility] Comment on above: Order Comment: Call MD with results STAT Result Comment: mL/m in/1.73m2 CKD-EPI Creatinine Equation (2020) Performed By: #### L 500.2500 ####[facility] [address] [place], [address] Glucose [Mass/Vol] 179 mg/dL High 70-99 [facility] Comment on above: Order Comment: Call MD with results STAT Performed By: #### L 500.2500 ####[facility] [address] [place], [address] Potassium [Moles/Vol] 4.2 mmol/L Normal 3.3-5.1 [facility] Comment on above: Order Comment: Call MD with results STAT Performed By: #### L 500.2500 ####[facility] [address] [place], [address] Sodium [Moles/Vol] 132 mmol/L Low 133-145 [facility] Comment on above: Order Comment: Call MD with results STAT Performed By: #### L 500.2500 ####[facility] [address] [place], [address] Urea nitrogen [Mass/Vol] 9 mg/dL Normal 4-19 [facility] Comment on above: Order Comment: Call MD with results STAT Performed By: #### L 500.2500 ####[facility] [address] [place], [address] BUN/CRE 13.1 RATIO Normal 10-20 [facility] Comment on above: Order Comment: Call MD with results STAT Performed By: #### L 500.2500 ####[facility] [address] [place], [address] Calcium [Mass/Vol] 8.3 mg/dL Normal 7.6-11.0 [facility] Comment on above: Order Comment: Call MD with results STAT Performed By: #### L 500.2500 ####[facility] [address] [place], [address] Chloride [Moles/Vol] 107 mmol/L Normal 98-108 [facility] Comment on above: Order Comment: Call MD with results STAT Performed By: #### L 500.2500 ####[facility] [address] [place], [address] CO2 [Moles/Vol] 10.4 mmol/L Low 21.0-32.0 [facility] Comment on above: Order Comment: Call MD with results STAT Performed By: #### L 500.2500 ####[facility] [address] [place], [address] Creatinine [Mass/Vol] 0.73 mg/dL Normal 0.70-1.20 [facility] Comment on above: Order Comment: Call MD with results STAT Performed By: #### L 500.2500 ####[facility] [address] [place], [address] ECRCL 96.38 ml/min Normal 50-250 [facility] Comment on above: Order Comment: Call MD with results STAT Performed By: #### L 500.2500 ####[facility] [address] [place], [address] GAP 16 High 5-15 [facility] Comment on above: Order Comment: Call MD with results STAT Performed By: #### L 500.2500 ####[facility] [address] [place], [address] GFR/1.73 sq M.predicted among non-blacks MDRD (S/P/Bld) [Vol rate/Area] 110 mL/min/{1.73_m2} Normal >60 [facility] Comment on above: Order Comment: Call MD with results STAT Result Comment: mL/m in/1.73m2 CKD-EPI Creatinine Equation (2020) Performed By: #### L 500.2500 ####[facility] [address] [place], [address] Glucose [Mass/Vol] 119 mg/dL High 70-99 [facility] Comment on above: Order Comment: Call MD with results STAT Performed By: #### L 500.2500 ####[facility] [address] [place], [address] Potassium [Moles/Vol] 3.7 mmol/L Normal 3.3-5.1 [facility] Comment on above: Order Comment: Call MD with results STAT Performed By: #### L 500.2500 ####[facility] [address] [place], [address] Sodium [Moles/Vol] 133 mmol/L Normal 133-145 [facility] Comment on above: Order Comment: Call MD with results STAT Performed By: #### L 500.2500 ####[facility] [address] [place], [address] Urea nitrogen [Mass/Vol] 10 mg/dL Normal 4-19 [facility] Comment on above: Order Comment: Call MD with results STAT Performed By: #### L 500.2500 ####[facility] [address] [place], [address] Bedside Glucoseon 09-27-2024 FINGERSTICK GLU 117 mg/dL High -106 [facility] Comment on above: Result Comment: KAZ GEMENT OF PATIENT CARE PER NURSING PROTOCOL Performed By: #### L 501.080 ####[facility] [address] [place], [address] FINGERSTICK GLU 115 mg/dL High 74-106 [facility] Comment on above: Result Comment: KAZ GEMENT OF PATIENT CARE PER NURSING PROTOCOL Performed By: #### L 501.080 ####[facility] [address] [place], [address] FINGERSTICK GLU 140 mg/dL High -106 [facility] Comment on above: Result Comment: KAZ GEMENT OF PATIENT CARE PER NURSING PROTOCOL Performed By: #### L 501.080 ####[facility] [address] [place], [address] FINGERSTICK GLU 111 mg/dL High 74-106 [facility] Comment on above: Result Comment: KAZ GEMENT OF PATIENT CARE PER NURSING PROTOCOL Performed By: #### L 501.080 ####[facility] [address] [place], [address] FINGERSTICK GLU 171 mg/dL High -106 [facility] Comment on above: Result Comment: KAZ GEMENT OF PATIENT CARE PER NURSING PROTOCOL Performed By: #### L 501.080 ####[facility] [address] [place], [address] FINGERSTICK GLU 207 mg/dL High -106 [facility] Comment on above: Result Comment: KAZ GEMENT OF PATIENT CARE PER NURSING PROTOCOL Performed By: #### L 501.080 ####[facility] [address] [place], [address] FINGERSTICK GLU 229 mg/dL High 74-106 [facility] Comment on above: Result Comment: KAZ GEMENT OF PATIENT CARE PER NURSING PROTOCOL Performed By: #### L 501.080 ####[facility] [address] [place], [address] FINGERSTICK GLU 216 mg/dL High [address] [place] [address] Comment on above: Result Comment: KAZ GEMENT OF PATIENT CARE PER NURSING PROTOCOL Performed By: #### L 501.080 ####[facility] [address] [place], [address] FINGERSTICK GLU 172 mg/dL High [facility]106 [facility] Comment on above: Result Comment: KAZ GEMENT OF PATIENT CARE PER NURSING PROTOCOL Performed By: #### L 501.080 ####[facility] [address] [place], [address] FINGERSTICK GLU 190 mg/dL High -106 [facility] Comment on above: Result Comment: KAZ GEMENT OF PATIENT CARE PER NURSING PROTOCOL Performed By: #### L 501.080 ####[facility] [address] [place], [address] FINGERSTICK GLU 254 mg/dL High [facility]106 [facility] Comment on above: Result Comment: KAZ GEMENT OF PATIENT CARE PER NURSING PROTOCOL Performed By: #### L 501.080 ####[facility] [address] [place], [address] FINGERSTICK GLU 306 mg/dL High 74-106 [facility] Comment on above: Result Comment: KAZ GEMENT OF PATIENT CARE PER NURSING PROTOCOL Performed By: #### L 501.080 ####[facility] [address] [place], [address] FINGERSTICK GLU 267 mg/dL High 74-106 [facility] Comment on above: Result Comment: KAZ GEMENT OF PATIENT CARE PER NURSING PROTOCOL Performed By: #### L 501.080 ####[facility] [address] [place], [address] FINGERSTICK GLU 172 mg/dL High 74-106 [facility] Comment on above: Result Comment: KAZ GEMENT OF PATIENT CARE PER NURSING PROTOCOL Performed By: #### L 501.080 ####[facility] [address] [place], [address] FINGERSTICK GLU 79 mg/dL Normal 74-106 [facility] Comment on above: Result Comment: KAZ GEMENT OF PATIENT CARE PER NURSING PROTOCOL Performed By: #### L 501.080 ####[facility] [address] [place], [address] FINGERSTICK GLU 81 mg/dL Normal 74-106 [facility] Comment on above: Result Comment: KAZ GEMENT OF PATIENT CARE PER NURSING PROTOCOL Performed By: #### L 501.080 ####[facility] [address] [place], [address] FINGERSTICK GLU 118 mg/dL High 74-106 [facility] Comment on above: Result Comment: KAZ GEMENT OF PATIENT CARE PER NURSING PROTOCOL Performed By: #### L 501.080 ####[facility] [address] [place], [address] FINGERSTICK GLU 157 mg/dL High 74-106 [facility] Comment on above: Result Comment: KAZ GEMENT OF PATIENT CARE PER NURSING PROTOCOL Performed By: #### L 501.080 ####[facility] [address] [place], [address] FINGERSTICK GLU 166 mg/dL High 74-106 [facility] Comment on above: Result Comment: KAZ GEMENT OF PATIENT CARE PER NURSING PROTOCOL Performed By: #### L 501.080 ####[facility] [address] [place], [address] FINGERSTICK GLU 177 mg/dL High 74-106 [facility] Comment on above: Result Comment: KAZ GEMENT OF PATIENT CARE PER NURSING PROTOCOL Performed By: #### L 501.080 ####[facility] [address] [place], [address] CBC W/Diff, Automatedon 09-07 Platelets (Bld) [#/Vol] 324 10*3/uL Normal 150-450 [facility] Comment on above: Order Comment: REDRA W. PREVIOUS SPECIMEN REJECTED DUE TOCLOTTED. 09/27/24526 Karthik R Nugent. Performed By: #### L 100.0100 ####[facility] [address] [place], [address] Absolute Neut Normal 2.0-7.7 [facility] Comment on above: Result Comment: This specimen has been REJECTED due to Laboratory criteria:Clotted.CARSON has been notified of need of recollection.09/27/24523 Karthik R Nugent Performed By: #### L 100.0100 ####[facility] [address] [place], [address] HCT Normal 37-47 [facility] Comment on above: Result Comment: This specimen has been REJECTED due to Laboratory criteria:Clotted.CARSON has been notified of need of recollection.09/27/24523 Karthik R Nugent Performed By: #### L 100.0100 ####[facility] [address] [place], [address] HGB Normal 12.0-15.0 [facility] Comment on above: Result Comment: This specimen has been REJECTED due to Laboratory criteria:Clotted.CARSON has been notified of need of recollection.09/27/24523 Karthik R Nugent Performed By: #### L 100.0100 ####[facility] [address] [place], [address] MCH Normal 27.0-32.0 [facility] Comment on above: Result Comment: This specimen has been REJECTED due to Laboratory criteria:Clotted.CARSON has been notified of need of recollection.09/27/24523 Karthik R Nugent Performed By: #### L 100.0100 ####[facility] [address] [place], [address] MCHC Normal 32-36 [facility] Comment on above: Result Comment: This specimen has been REJECTED due to Laboratory criteria:Clotted.CARSON has been notified of need of recollection.09/27/24523 Karthik R Nugent Performed By: #### L 100.0100 ####[facility] [address] [facility] [address] MCV Normal 81-99 [facility] Comment on above: Result Comment: This specimen has been REJECTED due to Laboratory criteria:Clotted.CARSON has been notified of need of recollection.09/27/24523 Karthik R Nugent Performed By: #### L 100.0100 ####[facility] [address] [facility] [address] NEUT% Normal 47-70 [facility] Comment on above: Result Comment: This specimen has been REJECTED due to Laboratory criteria:Clotted.CARSON has been notified of need of recollection.09/27/24523 Karthik R Nugent Performed By: #### L 100.0100 ####[facility] [address] [place], [address] PLT Normal 150-450 [facility] Comment on above: Result Comment: This specimen has been REJECTED due to Laboratory criteria:Clotted.CARSON has been notified of need of recollection.09/27/24523 Karthik R Nugent Performed By: #### L 100.0100 ####[facility] [address] [place], [address] RBC Normal 4.2-5.4 [facility] Comment on above: Result Comment: This specimen has been REJECTED due to Laboratory criteria:Clotted.CARSON has been notified of need of recollection.09/27/24523 Karthik R Nugent Performed By: #### L 100.0100 ####[facility] [address] [place], [address] RDW CV Normal 11.6-14.6 [facility] Comment on above: Result Comment: This specimen has been REJECTED due to Laboratory criteria:Clotted.CARSON has been notified of need of recollection.09/27/24523 Karthik R Nugent Performed By: #### L 100.0100 ####[facility] [address] [place], [address] RDW SD Normal 35.1-43.9 [facility] Comment on above: Result Comment: This specimen has been REJECTED due to Laboratory criteria:Clotted.CARSON has been notified of need of recollection.09/27/24523 Karthik R Nugent Performed By: #### L 100.0100 ####[facility] [address] [place], [address] WBC Normal 4.4-11.0 [facility] Comment on above: Result Comment: This specimen has been REJECTED due to Laboratory criteria:Clotted.CARSON has been notified of need of recollection.09/27/24523 Karthik R Nugent Performed By: #### L 100.0100 ####[facility] [address] [place], [address] Urine cultureOrdered By: Nu Reed on 09-27-2024 Bacteria identified Cx Nom (U) Mixed Gram Pos & Gram Neg Org Abnormal [facility] 12 Lead EKGon 09-26-2024 12 Lead EKG Normal [facility] Absolute neutrophil countOrd ered By: Aba Murguia on 09-26-2024 Neutrophils (Bld) [#/Vol] 10.0 10*3/uL High 2.0-7.7 [facility] Anion gap in Serum or Plasma Ordered By: Aba Murguia on 09-26-2024 Anion gap [Moles/Vol] 35 mmol/L High 5-15 [facility] BUN/creatinine ratioOrdered By: Aba Murguia on 09-26-2024 Urea nitrogen/Creatinine [Mass ratio] 12.0 mg/mg 10-20 [facility] Base excess Calc (BldV) [Mol es/Vol]Ordered By: Aba Murguia on 09-26-2024 Venous Blood Base Excess -25 mmol/L Low -1.0-3.5 [facility] Basic Metabolic Profile (BMP )on 09-26-2024 CO2 [Moles/Vol] 7.6 mmol/L Invalid Interpretation Code 21.0-32.0 [facility] Comment on above: Order Comment: Call with results STAT Result Comment: Crit ical Result(s) Called CARSON at: 2108 by:EFRA.??Results read back by same.Critical Result(s) Called at: by:??Results read back bysame.Critical Result(s) Called at: by:??Results read back bysame. AMENDED REPORT 09/26/242133 CO2 previously reported as: 7.6 *L mmol/LCritical Result(s) Called CARSON at: 2109 by:EFRA.??Results read back by same. Performed By: #### L 500.2500 ####[facility] [address] [place], [place], [address] CO2 [Moles/Vol] 5.0 mmol/L Invalid Interpretation Code 21.0-32.0 [facility] Comment on above: Order Comment: Call with results STAT Result Comment: CRIT ICAL RESULTS CALLED TO MARTIN BY SHERLEY MANCILLA [id number]. READ BACK BY SAME. AMENDED REPORT 09/26/24 1717 CO2 previously reported as: 5.0 *L mmol/LCritical Result(s) Called at: by:??Results read back bysame.CRITICAL RESULTS CALLED TO MARTIN BY SHERLEY MANCILLA [id number]. READ BACK BY SAME.Critical Result(s) Called at: by:??Results read back bysame. Performed By: #### L 500.2500 ####[facility] [address] [place], [address] BUN Normal 4-19 [facility] Comment on above: Order Comment: Call MD with results STAT Result Comment: This specimen has been REJECTED due to Laboratory criteria:Quanity Not Sufficient.MARTIN has been notified of need of recollection.09/26/24 1440 Hanane Clapper Performed By: #### L 500.2500 ####[facility] [address] [place], [address] BUN/CRE Normal 10-20 [facility] Comment on above: Order Comment: Call MD with results STAT Result Comment: This specimen has been REJECTED due to Laboratory criteria:Quanity Not Sufficient.MARTIN has been notified of need of recollection.09/26/24 1440 Hanane Clapper Performed By: #### L 500.2500 ####[facility] [address] [place], [address] Calcium Normal 7.6-11.0 [facility] Comment on above: Order Comment: Call MD with results STAT Result Comment: This specimen has been REJECTED due to Laboratory criteria:Quanity Not Sufficient.MARTIN has been notified of need of recollection.09/26/24 1440 Hanane Clapper Performed By: #### L 500.2500 ####[facility] [address] [place], [address] CL Normal 98-108 [facility] Comment on above: Order Comment: Call MD with results STAT Result Comment: This specimen has been REJECTED due to Laboratory criteria:Quanity Not Sufficient.MARTIN has been notified of need of recollection.09/26/24 1440 Hanane Clapper Performed By: #### L 500.2500 ####[facility] [address] [place], [address] CO2 Normal 21.0-32.0 [facility] Comment on above: Order Comment: Call MD with results STAT Result Comment: This specimen has been REJECTED due to Laboratory criteria:Quanity Not Sufficient.MARTIN has been notified of need of recollection.09/26/24 1440 Hanane Clapper Performed By: #### L 500.2500 ####[facility] [address] [place], [address] CREAT,SERUM Normal 0.70-1.20 [facility] Comment on above: Order Comment: Call MD with results STAT Result Comment: This specimen has been REJECTED due to Laboratory criteria:Quanity Not Sufficient.MARTIN has been notified of need of recollection.09/26/24 1440 Hanane Clapper Performed By: #### L 500.2500 ####[facility] [address] [place], [address] eGFR Normal >60 [facility] Comment on above: Order Comment: Call MD with results STAT Result Comment: This specimen has been REJECTED due to Laboratory criteria:Quanity Not Sufficient.MARTIN has been notified of need of recollection.09/26/24 1440 Hanane Clapper Performed By: #### L 500.2500 ####[facility] [address] [place], [address] GAP Normal 5-15 [facility] Comment on above: Order Comment: Call MD with results STAT Result Comment: This specimen has been REJECTED due to Laboratory criteria:Quanity Not Sufficient.MARTIN has been notified of need of recollection.09/26/24 1440 Hanane Clapper Performed By: #### L 500.2500 ####[facility] [address] [place], [address] GLU Normal 70-99 [facility] Comment on above: Order Comment: Call MD with results STAT Result Comment: This specimen has been REJECTED due to Laboratory criteria:Quanity Not Sufficient.MARTIN has been notified of need of recollection.09/26/24 1440 Hanane Clapper Performed By: #### L 500.2500 ####[facility] [address] [place], [address] Potassium Normal 3.3-5.1 [facility] Comment on above: Order Comment: Call MD with results STAT Result Comment: This specimen has been REJECTED due to Laboratory criteria:Quanity Not Sufficient.MARTIN has been notified of need of recollection.09/26/24 1440 Hanane Clapper Performed By: #### L 500.2500 ####[facility] [address] [place], [address] Basic Metabolic Profile (BMP) Normal 133-145 [facility] Comment on above: Order Comment: Call MD with results STAT Result Comment: This specimen has been REJECTED due to Laboratory criteria:Quanity Not Sufficient.MARTIN has been notified of need of recollection.09/26/24 1440 Hanane Clapper Performed By: #### L 500.2500 ####[facility] [address] [place], [address] BUN/CRE 12.0 RATIO Normal 10-20 [facility] Comment on above: Performed By: #### L 100.0100, L501.6901, L500.2500 ####[facility] [address] [place], [address] Calcium [Mass/Vol] 9.3 mg/dL Normal 7.6-11.0 [facility] Comment on above: Performed By: #### L 100.0100, L501.6901, L500.2500 ####[facility] [address] [place], [address] Chloride [Moles/Vol] 94 mmol/L Low 98-108 [facility] Comment on above: Performed By: #### L 100.0100, L501.6901, L500.2500 ####[facility] [address] [place], [address] CO2 [Moles/Vol] 5.7 mmol/L Invalid Interpretation Code 21.0-32.0 [facility] Comment on above: Result Comment: Crit ical Result(s) Called at 1056 TO: [facility] by:KCLAPPER??Results read back by same. Performed By: #### L 100.0100, L501.6901, L500.2500 ####[facility] [address] [place], [address] Creatinine [Mass/Vol] 0.84 mg/dL Normal 0.70-1.20 [facility] Comment on above: Performed By: #### L 100.0100, L501.6901, L500.2500 ####[facility] [address] [place], [address] ECRCL 83.54 ml/min Normal 50-250 [facility] Comment on above: Performed By: #### L 100.0100, L501.6901, L500.2500 ####[facility] [address] [place], [address] GAP 35 High 5-15 [facility] Comment on above: Performed By: #### L 100.0100, L501.6901, L500.2500 ####[facility] [address] [place], [address] GFR/1.73 sq M.predicted among non-blacks MDRD (S/P/Bld) [Vol rate/Area] 93 mL/min/{1.73_m2} Normal >60 [facility] Comment on above: Result Comment: mL/m in/1.73m2 CKD-EPI Creatinine Equation (2020) Performed By: #### L 100.0100, L501.6901, L500.2500 ####[facility] [address] [place], [address] Glucose [Mass/Vol] 339 mg/dL High 70-99 [facility] Comment on above: Performed By: #### L 100.0100, L501.6901, L500.2500 ####[facility] [address] [place], [address] Potassium [Moles/Vol] 4.7 mmol/L Normal 3.3-5.1 [facility] Comment on above: Performed By: #### L 100.0100, L501.6901, L500.2500 ####[facility] [address] [place], [address] Sodium [Moles/Vol] 134 mmol/L Normal 133-145 [facility] Comment on above: Performed By: #### L 100.0100, L501.6901, L500.2500 ####[facility] [address] [place], [address] Urea nitrogen [Mass/Vol] 10 mg/dL Normal 4-19 [facility] Comment on above: Performed By: #### L 100.0100, L501.6901, L500.2500 ####[facility] [address] [place], [address] BUN Normal 4-19 [facility] Comment on above: Result Comment: DIMAS CRONIN SAID THEY DID NOT NEED FAR SHEKNOWS. Performed By: #### L 500.2500 ####[facility] [facility] [address] [place], [address] BUN/CRE Normal 10-20 [facility] Comment on above: Result Comment: DIMAS CRONIN SAID THEY DID NOT NEED FAR SHEKNOWS. Performed By: #### L 500.2500 ####[facility] [address] [place], [address] Calcium Normal 7.6-11.0 [facility] Comment on above: Result Comment: DIMAS CRONIN SAID THEY DID NOT NEED FAR SHEKNOWS. Performed By: #### L 500.2500 ####[facility] [address] [place], [address] CL Normal 98-108 [facility] Comment on above: Result Comment: DIMAS CRONIN SAID THEY DID NOT NEED FAR SHEKNOWS. Performed By: #### L 500.2500 ####[facility] [address] [place], [address] CO2 Normal 21.0-32.0 [facility] Comment on above: Result Comment: DIMAS CRONIN SAID THEY DID NOT NEED FAR SHEKNOWS. Performed By: #### L 500.2500 ####[facility] [address] [place], [address] CREAT,SERUM Normal 0.70-1.20 [facility] Comment on above: Result Comment: DIMAS CRONIN SAID THEY DID NOT NEED FAR SHEKNOWS. Performed By: #### L 500.2500 ####[facility] [address] [place], [address] eGFR Normal >60 [facility] Comment on above: Result Comment: DIMAS CRONIN SAID THEY DID NOT NEED FAR SHEKNOWS. Performed By: #### L 500.2500 ####[facility] [address] [place], [address] GAP Normal 5-15 [facility] Comment on above: Result Comment: DIMAS CRONIN SAID THEY DID NOT NEED FAR SHEKNOWS. Performed By: #### L 500.2500 ####[facility] [address] [place], [address] GLU Normal 70-99 [facility] Comment on above: Result Comment: DIMAS CRONIN SAID THEY DID NOT NEED FAR SHEKNOWS. Performed By: #### L 500.2500 ####[facility] [address] [place], [address] Potassium Normal 3.3-5.1 [facility] Comment on above: Result Comment: DIMAS CRONIN SAID THEY DID NOT NEED FAR SHEKNOWS. Performed By: #### L 500.2500 ####[facility] [address] [place], [address] Basic Metabolic Profile (BMP) Normal 133-145 [facility] Comment on above: Result Comment: DIMAS CRONIN SAID THEY DID NOT NEED FAR SHEKNOWS. Performed By: #### L 500.2500 ####[facility] [address] [place], [address] BUN Normal 4-19 [facility] Comment on above: Order Comment: REDRA W. PREVIOUS SPECIMEN REJECTED DUE TOQNS. 09/26/241441 Result Comment: ORDE R NOT NEEDED. ORDERS ALREADY PLACED FOR TIMED DRAWS Performed By: #### L 500.2500 ####[facility] [address] [place], [address] BUN/CRE Normal 10-20 [facility] Comment on above: Order Comment: REDRA W. PREVIOUS SPECIMEN REJECTED DUE TOQNS. 09/26/241441 Result Comment: ORDE R NOT NEEDED. ORDERS ALREADY PLACED FOR TIMED DRAWS Performed By: #### L 500.2500 ####[facility] [address] [place], [address] Calcium Normal 7.6-11.0 [facility] Comment on above: Order Comment: REDRA W. PREVIOUS SPECIMEN REJECTED DUE TOQNS. 09/26/241441 Result Comment: ORDE R NOT NEEDED. ORDERS ALREADY PLACED FOR TIMED DRAWS Performed By: #### L 500.2500 ####[facility] [address] [place], [address] CL Normal 98-108 [facility] Comment on above: Order Comment: REDRA W. PREVIOUS SPECIMEN REJECTED DUE TOQNS. 09/26/241441 Result Comment: ORDE R NOT NEEDED. ORDERS ALREADY PLACED FOR TIMED DRAWS Performed By: #### L 500.2500 ####[facility] [address] [place], [address] CO2 Normal 21.0-32.0 [facility] Comment on above: Order Comment: REDRA W. PREVIOUS SPECIMEN REJECTED DUE TOQNS. 09/26/241441 Result Comment: ORDE R NOT NEEDED. ORDERS ALREADY PLACED FOR TIMED DRAWS Performed By: #### L 500.2500 ####[facility] [address] [place], [address] CREAT,SERUM Normal 0.70-1.20 [facility] Comment on above: Order Comment: REDRA W. PREVIOUS SPECIMEN REJECTED DUE TOQNS. 09/26/241441 Result Comment: ORDE R NOT NEEDED. ORDERS ALREADY PLACED FOR TIMED DRAWS Performed By: #### L 500.2500 ####[facility] [address] [place], [address] eGFR Normal >60 [facility] Comment on above: Order Comment: REDRA W. PREVIOUS SPECIMEN REJECTED DUE TOQNS. 09/26/241441 Result Comment: ORDE R NOT NEEDED. ORDERS ALREADY PLACED FOR TIMED DRAWS Performed By: #### L 500.2500 ####[facility] [address] [place], [address] GAP Normal 5-15 [facility] Comment on above: Order Comment: REDRA W. PREVIOUS SPECIMEN REJECTED DUE TOQNS. 09/26/241441 Result Comment: ORDE R NOT NEEDED. ORDERS ALREADY PLACED FOR TIMED DRAWS Performed By: #### L 500.2500 ####[facility] [address] [place], [address] GLU Normal 70-99 [facility] Comment on above: Order Comment: REDRA W. PREVIOUS SPECIMEN REJECTED DUE TOQNS. 09/26/24 144 Result Comment: ORDE R NOT NEEDED. ORDERS ALREADY PLACED FOR TIMED DRAWS Performed By: #### L 500.2500 ####[facility] [address] [place], [address] Potassium Normal 3.3-5.1 [facility] Comment on above: Order Comment: REDRA W. PREVIOUS SPECIMEN REJECTED DUE TOQNS. 09/26/24 1442 Result Comment: ORDE R NOT NEEDED. ORDERS ALREADY PLACED FOR TIMED DRAWS Performed By: #### L 500.2500 ####[facility] [address] [place], [address] Basic Metabolic Profile (BMP) Normal 133-145 [facility] Comment on above: Order Comment: REDRA W. PREVIOUS SPECIMEN REJECTED DUE TOQNS. 09/26/24 1442 Result Comment: ORDE R NOT NEEDED. ORDERS ALREADY PLACED FOR TIMED DRAWS Performed By: #### L 500.2500 ####[facility] [address] [place], [address] Basophil percentageOrdered B y: Aba Murguia on 09-26-2024 Basophils/100 WBC (Bld) 0.9 % 0-1 [facility] Bedside Glucoseon 09-26-2024 FINGERSTICK GLU 201 mg/dL High 74-106 [facility] Comment on above: Result Comment: KAZ GEMENT OF PATIENT CARE PER NURSING PROTOCOL Performed By: #### L 501.080 ####[facility] [address] [place], [address] FINGERSTICK GLU 227 mg/dL High 74-106 [facility] Comment on above: Result Comment: KAZ GEMENT OF PATIENT CARE PER NURSING PROTOCOL Performed By: #### L 501.080 ####[facility] [address] [place], [address] FINGERSTICK GLU 235 mg/dL High 74-106 [facility] Comment on above: Result Comment: KAZ GEMENT OF PATIENT CARE PER NURSING PROTOCOL Performed By: #### L 501.080 ####[facility] [address] [place], [address] FINGERSTICK GLU 223 mg/dL High 74-106 [facility] Comment on above: Result Comment: KAZ GEMENT OF PATIENT CARE PER NURSING PROTOCOL Performed By: #### L 501.080 ####[facility] [address] [place], [address] FINGERSTICK GLU 257 mg/dL High [address] [place] [address] Comment on above: Result Comment: KAZ GEMENT OF PATIENT CARE PER NURSING PROTOCOL Performed By: #### L 501.080 ####[facility] [address] [place], [address] FINGERSTICK GLU 240 mg/dL High -[address] [place] [address] Comment on above: Result Comment: KAZ GEMENT OF PATIENT CARE PER NURSING PROTOCOL Performed By: #### L 501.080 ####[facility] [address] [place], [address] FINGERSTICK GLU 251 mg/dL High -[address] [place] [address] Comment on above: Result Comment: Dr Lima aguilera FollowedMANAGEMENT OF PATIENT CARE PER NURSING PROTOCOL Performed By: #### L 501.080 ####[facility] [address] [place], [address] FINGERSTICK GLU 246 mg/dL High [facility]106 [facility] Comment on above: Result Comment: KAZ GEMENT OF PATIENT CARE PER NURSING PROTOCOL Performed By: #### L 501.080 ####[facility] [address] [place], [address] FINGERSTICK GLU 232 mg/dL High 74-106 [facility] Comment on above: Result Comment: KAZ GEMENT OF PATIENT CARE PER NURSING PROTOCOL Performed By: #### L 501.080 ####[facility] [address] [place], [address] FINGERSTICK GLU 267 mg/dL High 74-106 [facility] Comment on above: Result Comment: KAZ GEMENT OF PATIENT CARE PER NURSING PROTOCOL Performed By: #### L 501.080 ####[facility] [address] [place], [address] FINGERSTICK GLU 361 mg/dL High 74-106 [facility] Comment on above: Result Comment: KAZ GEMENT OF PATIENT CARE PER NURSING PROTOCOL Performed By: #### L 501.080 ####[facility] [address] [place], [address] FINGERSTICK GLU 420 mg/dL High [address] [place] [address] Comment on above: Result Comment: KAZ GEMENT OF PATIENT CARE PER NURSING PROTOCOL Performed By: #### L 501.080 ####[facility] [address] [place], [address] FINGERSTICK GLU 341 mg/dL High [address] [place] [address] Comment on above: Result Comment: KAZ GEMENT OF PATIENT CARE PER NURSING PROTOCOL Performed By: #### L 501.080 ####[facility] [address] [place], [address] Bilirubin Test strip Ql (U)O rdered By: Aba Murguia on 09-26-2024 Bilirubin Ql (U) Negative Negative [facility] CBC W/Diff, Automatedon 03-2 PLT EST SLT INC Normal ADEQ [facility] Comment on above: Performed By: #### L 100.0100, L501.6901, L500.2500 ####[facility] [address] [place], [address] CO2 (BldV) [Moles/Vol]Ordere d By: Aba Murguia on 09-26-2024 CO2 [Moles/Vol] 6 mmol/L Low 23-33 [facility] CO2 (BldV) [Partial pressure ]Ordered By: Aba Murguia on 09-26-2024 Bed Mix Venous Bld PCO2 at Pat Temp 19.2 mmHg Low 41-51 [facility] Carbon dioxide, total [Moles /volume] in Central venous bloodOrdered By: Aba Murguia on 09-26-2024 CO2 [Moles/Vol] 5.7 mmol/L Low 21.0-32.0 [facility] Comment on above: Critical Result(s) C alled at 1056 TO: AVANI by: KCLAPPER Results read back by same. Chest 1 View (Portable)on Chest 1 View (Portable) Normal [facility] Chloride assayOrdered By: Sabas Murguia on 09-26-2024 Chloride [Moles/Vol] 94 mmol/L Low 98-108 [facility] Consultation - Intensiviston 09-26-2024 Consultation - Special Procedure Technologist Normal [facility] Emergency Department Summary on 09-26-2024 Emergency Department Summary Normal [facility] Eosinophil percentageOrdered By: Aba Murguia on 09-26-2024 Eosinophils/100 WBC (Bld) 12.0 % High 0-5 [facility] Epithelial cells.squamous LM Ql (Urine sed)Ordered By: Aba Murguia on 09-26-2024 Epithelial cells.squamous LM.HPF (Urine sed) [#/Area] 5 /[HPF] 5-10 [facility] Erythrocyte distribution wid th ratioOrdered By: Aba Murguia on 09-26-2024 Erythrocyte distribution width (RBC) [Ratio] 16.1 % High 11.6-14.6 [facility] Erythrocyte distribution wid th standard deviationOrdered By: Aba Murguia on 09-26-2024 Erythrocyte distribution width (RBC) [Entitic vol] 57.2 fL High 35.1-43.9 [facility] Estimation of creatinine patito aranceOrdered By: Aba Murguia on 09-26-2024 Estimated Creatinine Clearance Calc 83.54 ml/min 50-250 [facility] Fine Granular Casts LM.LPF ( Urine sed) [#/Area]Ordered By: Aba Murguia on 09-26-2024 Urine Fine Granular Casts 0-5 SEEN /lpf 0-5 [facility] GFR/1.73 sq M.predicted rey g non-blacks MDRD (S/P/Bld) [Vol rate/Area]Ordered By: Aba Murguia on 09-26-2024 Estimated GFR (MDRD) Non-Af Amer 93 >60 [facility] Comment on above: mL/min/1.73m2 CKD-EP I Creatinine Equation (2020) Glucose Ql (U)Ordered By: Sabas Murguia on 09-26-2024 Glucose (U) [Mass/Vol] 1000 mg/dL High Normal [facility] Glucose measurement at [facility] deOrdered By: Aba Murguia on 09-26-2024 Bedside Glucose (Misc Panel) 341 mg/dL High 74-106 [facility] Comment on above: MANAGEMENT OF PATIEN T CARE PER NURSING PROTOCOL Hematocrit Auto (Bld) [Volum e fraction]Ordered By: Aba Murguia on 09-26-2024 Hematocrit (Bld) [Volume fraction] 45.9 % 37-47 [facility] Hemoglobin A1con 09-26-2024 HbA1c (Bld) [Mass fraction] 10.2 % Normal <=5.6 [facility] Comment on above: Performed By: #### L 501.9985 ####[facility] [address] [place], [address] Hemoglobin A1c percentageOrd ered By: Maggie Reed on 09-26-2024 HbA1c (Bld) [Mass fraction] 10.2 % >5.7 [facility] Hemoglobin measurementOrdere d By: Aba Murguia on 09-26-2024 Hemoglobin (Bld) [Mass/Vol] 14.2 g/dL 12.0-15.0 [facility] Immature granulocytes/100 WB C Auto (Bld)Ordered By: Aba Murguia on 09-26-2024 Immature granulocytes/100 WBC (Bld) 0.500 % 0.0-0.9 [facility] Comment on above: IG% - Immature Granu locytes (promyelocytes, myelocytes and metamyelocytes) > 1% indicates that a LEFT SHIFT is Present. Ketones Test strip Ql (U)Ord ered By: Aba Murguia on 09-26-2024 Ketones Ql (U) 150 mg/dl Abnormal Negative [facility] Comment on above: CRITICAL VALUE *HCRI TICAL VALUE CALLED TO CRISTIAN VILLALPANDO (ER)09/26/24 1029 Harjit Whitley.RESULTS READ BACK BY SAME. L501.6901on 09-26-2024 BETA-HYDROXYBUT 9.5 mmol/L Normal 0.0-0.3 [facility] Comment on above: Performed By: #### L 100.0100, L501.6901, L500.2500 ####[facility] [address] [place], [place], [address] Lymphocytes Auto (Unsp spec) [#/Vol]Ordered By: Aba Murguia on 09-26-2024 Lymphocytes (Bld) [#/Vol] 1.92 10*3/uL 0.83-4.51 [facility] Lymphocytes/100 WBC Auto (Un sp spec)Ordered By: Aba Murguia on 09-26-2024 Lymphocytes/100 WBC (Bld) 13.3 % Low 19-41 [facility] MCV (mean corpuscular volume ) determinationOrdered By: Aba Murguia on 09-26-2024 MCV (RBC) [Entitic vol] 95.4 fL 81-99 [facility] Mean corpuscular hemoglobin (MCH) determinationOrdered By: Aba Murguia on 09-26-2024 MCH (RBC) [Entitic mass] 29.5 pg 27.0-32.0 [facility] Mean corpuscular hemoglobin concentration (MCHC) determinationOrdered By: Aba Murguia on 09-26-2024 MCHC (RBC) [Mass/Vol] 30.9 g/dL Low 32-36 [facility] Mean platelet volume determi nationOrdered By: Aba Murguia on 09-26-2024 Platelet mean volume (Bld) [Entitic vol] 9.5 fL 6.2-12.0 [facility] Microscopic analysis of urin e for red blood cells (RBC)Ordered By: Aba Murguia on 09-26-2024 Microscopic analysis of urine for red blood cells (RBC) 0-5 SEEN /hpf 0-5 [facility] Urine RBC 0-5 SEEN /hpf 0-5 [facility] Monocyte percentageOrdered B y: Aba Murguia on 09-26-2024 Monocytes/100 WBC (Bld) 4.4 % 0-10 [facility] Mucus LM Ql (Urine sed)Order ed By: Aba Murguia on 09-26-2024 Mucus Ql (Urine sed) 0 SEEN /hpf [facility] Neutrophil percentageOrdered By: Aba Murguia on 09-26-2024 Neutrophils/100 WBC (Bld) 68.9 % 47-70 [facility] Nitrite Test strip Ql (U)Ord ered By: Aba Murguia on 09-26-2024 Nitrite Ql (U) Negative Negative [facility] No Panel InformationOrdered By: Aba Murguia on 09-26-2024 Bld Gas Crit Called To/Read Back By Yes [facility] Blood Gas Notified Time 09:59:55 [facility] Blood Gas Notified Whom everardo [facility] Blood Gas Sample Site Not entered [facility] Blood Gas Specimen Type BETHANY [facility] Oxygen Delivery Device Room Air [facility] Beta-Hydroxybutyric Acid mmol/L 9.5 mmol/L 0.0-0.3 [facility] Nucleated red blood cell per centageOrdered By: Aba Murguia on 09-26-2024 Nucleated RBC/100 WBC (Bld) [Ratio] 0 % 0-5 [facility] Oxygen (BldV) [Partial press ure]Ordered By: Aba Murguia on 09-26-2024 Venous Blood Partial Pressure O2 157 mmHg High 25-40 [facility] Platelet countOrdered By: Sbaas Murguia on 09-26-2024 Platelets (Bld) [#/Vol] 464 10*3/uL High 150-450 [facility] Platelet estimateOrdered By: Aba Murguia on 09-26-2024 Platelets LM Ql (Bld) SLT INC ADEQ [facility] Platelets LM Ql (Bld)Ordered By: Aba Murguia on 09-26-2024 Platelet Estimate SLT INC [facility] Potassium (Unsp spec) [Mass/ Vol]Ordered By: Aba Murguia on 09-26-2024 Potassium [Moles/Vol] 4.7 mmol/L 3.3-5.1 [facility] Protein Test strip Ql (U)Ord ered By: Aba Murguia on 09-26-2024 Protein Ql (U) 100 mg/dl High Negative [facility] RBC Auto (Bld) [#/Vol]Ordere d By: Aba Murguia on 09-26-2024 RBC (Bld) [#/Vol] 4.81 10*6/uL 4.2-5.4 [facility] Serum creatinine measurement (mass/volume)Ordered By: Aab Murguia on 09-26-2024 Creatinine [Mass/Vol] 0.84 mg/dL 0.70-1.20 [facility] Serum glucose measurement (m ass/volume)Ordered By: Aba Murguia on 09-26-2024 Glucose [Mass/Vol] 339 mg/dL High 70-99 [facility] Serum or plasma calcium xin urement (mass/volume)Ordered By: Aba Murguia on 09-26-2024 Calcium [Mass/Vol] 9.3 mg/dL 7.6-11.0 [facility] Serum or plasma urea nitroge n measurement (mass/volume)Ordered By: Aba Murguia on 09-26-2024 Urea nitrogen [Mass/Vol] 10 mg/dL 4-19 [facility] Sodium levelOrdered By: Andrzej Murguia on 09-26-2024 Sodium [Moles/Vol] 134 mmol/L 133-145 [facility] Squamous epithelial cells de tection in urine sediment by light microscopyOrdered By: Aba Murguia on 09-26-2024 Epithelial cells.squamous LM Ql (Urine sed) 5-10 SEEN /hpf 5-10 [facility] Urinalysis, Completeon 09-26 BACTERIA 1+ /hpf Normal None Seen [facility] Comment on above: Order Comment: CLEAN CATCH Performed By: #### L 400.0001 ####[facility] [address] [place], [address] CAST,FINE GRAN 0-5 SEEN Normal 0-5 [facility] Comment on above: Order Comment: CLEAN CATCH Performed By: #### L 400.0001 ####[facility] [address] [place], [address] RBC 0-5 SEEN Normal 0-5 [facility] Comment on above: Order Comment: CLEAN CATCH Performed By: #### L 400.0001 ####[facility] [address] [place], [address] EPI,SQUAMOUS 5-10 SEEN Normal 5-10 [facility] Comment on above: Order Comment: CLEAN CATCH Performed By: #### L 400.0001 ####[facility] [address] [place], [address] Mucus Ql (Urine sed) 0 SEEN Normal [facility] Comment on above: Order Comment: CLEAN CATCH Performed By: #### L 400.0001 ####[facility] [address] [place], [address] WBC 0 SEEN Normal 0-5 [facility] Comment on above: Order Comment: CLEAN CATCH Performed By: #### L 400.0001 ####[facility] [address] [place], [address] Urine blood detectionOrdered By: Aba Murguia on 09-26-2024 Urine Occult Blood 150 /ul High Negative [facility] Urine clarityOrdered By: Selin Murguia on 09-26-2024 Clarity (U) Clear Clear [facility] Urine color determinationOrd ered By: Aba Murguia on 09-26-2024 Color (U) Yellow Yellow [facility] Urine glucose detectionOrder ed By: Aba Murguia on 09-26-2024 Glucose Ql (U) 1000 mg/dl High Normal [facility] Urine leukocyte esterase det ection by dipstickOrdered By: Aba Murguia on 09-26-2024 Leukocyte esterase Test strip Ql (U) Negative Negative [facility] Urine pHOrdered By: Aba Murguia on 09-26-2024 pH (U) 5.0 [pH] 5.0 - 8.0 [facility] Urine sediment bacteria coun t by microscopy (number/high power field)Ordered By: Aba Murguia on 09-26-2024 Bacteria LM.HPF (Urine sed) [#/Area] 1 /[HPF] None Seen [facility] Urine sediment fine granular cast count by microscopy (number/low power field)Ordered By: Aba Murguia on 09-26-2024 Fine Granular Casts LM.LPF (Urine sed) [#/Area] 0-5 SEEN /lpf 0-5 [facility] Urine specific gravity measu rementOrdered By: Aba Murguia on 09-26-2024 Specific gravity (U) [Rel density] 1.030 1.002-1.030 [facility] Urine urobilinogen measureme ntOrdered By: Aba Murguia on 09-26-2024 Urobilinogen Ql (U) Normal mg/dl Normal [facility] Urobilinogen Ql (U)Ordered B y: Aba Murguia on 09-26-2024 Urine Urobilinogen Normal mg/dl Normal [facility] Venous Blood Gason Blood Gas Type BETHANY [facility] Comment on above: Performed By: #### L 9000.0810 ####[facility] [address] [place], [address] CO2 [Moles/Vol] 6 mmol/L Low 23-33 [facility] Comment on above: Performed By: #### L 9000.0810 ####[facility] [address] [place], [address] HCO3 (Bld) [Moles/Vol] 5 mmol/L Low 22-26 [facility] Comment on above: Performed By: #### L 9000.0810 ####[facility] [address] [place], [address] O2 Delivery Dev Room Air [facility] Comment on above: Performed By: #### L 9000.0810 ####[facility] [address] [place], [address] Read Back By Yes [facility] Comment on above: Performed By: #### L 9000.0810 ####[facility] [address] [place], [address] Results To everardo Normal [facility] Comment on above: Performed By: #### L 9000.0810 ####[facility] [address] [place], [address] SITE Not entered Normal [facility] Comment on above: Performed By: #### L 9000.0810 ####[facility] [address] [place], [address] Time Given 09:59:55 Normal [facility] Comment on above: Performed By: #### L 9000.0810 ####[facility] [address] [place], [address] VBG BE -25 mmol/L Low -1.0-3.5 [facility] Comment on above: Performed By: #### L 9000.0810 ####[facility] [address] [place], [address] VBG pCO2 19.2 mmHg Low 41-51 [facility] Comment on above: Performed By: #### L 9000.0810 ####[facility] [address] [place], [address] VBG pH 7.06 Invalid Interpretation Code 7.32-7.42 [facility] Comment on above: Performed By: #### L 9000.0810 ####[facility] [address] [place], [address] VBG PO2 157 mmHg High 25-40 [facility] Comment on above: Performed By: #### L 9000.0810 ####[facility] [address] [place], [address] VBG SO2 99 High 50-70 [facility] Comment on above: Performed By: #### L 9000.0810 ####[facility] [address] [place], [address] Venous blood base excess reji surementOrdered By: Aba Murguia on 09-26-2024 Base excess Calc (BldV) [Moles/Vol] -25 mmol/L Low -1.0-3.5 [facility] Venous blood bicarbonate reji surementOrdered By: Aba Murguia on 09-26-2024 HCO3 (Bld) [Moles/Vol] 5 mmol/L Low 22-26 [facility] Venous blood oxygen saturati on measurementOrdered By: Aba Murguia on 09-26-2024 Oxygen saturation in Blood 99 % High 50-70 [facility] Venous blood pH measurementO rdered By: Aba Murguia on 09-26-2024 pH (BldV) 7.06 [pH] Low 7.32-7.42 [facility] Venous blood partial pressur e of carbon dioxide measurementOrdered By: Aba Murguia on 09-26-2024 CO2 (BldV) [Partial pressure] 19.2 mm[Hg] Low 41-51 [facility] Venous blood partial pressur e of oxygen measurementOrdered By: Aba Murguia on 09-26-2024 Oxygen (BldV) [Partial pressure] 157 mm[Hg] High 25-40 [facility] White blood cell (WBC) count Ordered By: Aba Murguia on 09-26-2024 WBC (Bld) [#/Vol] 14.5 10*3/uL High 4.4-11.0 [facility] White blood cell countOrdere d By: Aba Murguia on 09-26-2024 Urine WBC 0 SEEN /hpf 0-5 [facility] White blood cell count 0 SEEN /hpf 0-5 [facility] pH (BldV)Ordered By: Aba Murguia on 09-26-2024 Venous Blood pH 7.06 Low 7.32-7.42 [facility] CBC W/Diff, Automatedon 03-11 PATH REV Reviewed Normal [facility] Comment on above: Result Comment: Neut rophilic leukocytosis.Clinical correlation necessary.Rob Petit M.D. 04/07/24 AMENDED REPORT 04/07/24 1257 PATH REV previously reported as: November mey Performed By: #### L 501.6900, L500.4050, L100.0100 ####[facility] [address] [place], [address] Basic Metabolic Profile (BMP )on 04-05-2024 BUN Normal 7-18 [facility] Comment on above: Order Comment: Call MD with results STAT Result Comment: Canc elled via OM: MD Ordered Performed By: #### L 500.2500 ####[facility] [address] [place], [address] BUN/CRE Normal 10-20 [facility] Comment on above: Order Comment: Call MD with results STAT Result Comment: Canc elled via OM: MD Ordered Performed By: #### L 500.2500 ####[facility] [address] [place], [address] CA,Total Normal 8.5-10.1 [facility] Comment on above: Order Comment: Call MD with results STAT Result Comment: Canc elled via OM: MD Ordered Performed By: #### L 500.2500 ####[facility] [address] [place], [address] CL Normal 98-107 [facility] Comment on above: Order Comment: Call MD with results STAT Result Comment: Canc elled via OM: MD Ordered Performed By: #### L 500.2500 ####[facility] [address] [place], [address] CO2 Normal 21.0-32.0 [facility] Comment on above: Order Comment: Call MD with results STAT Result Comment: Canc elled via OM: MD Ordered Performed By: #### L 500.2500 ####[facility] [address] [place], [address] CREAT,SERUM Normal 0.55-1.02 [facility] Comment on above: Order Comment: Call MD with results STAT Result Comment: Canc elled via OM: MD Ordered Performed By: #### L 500.2500 ####[facility] [address] [place], [address] EST GFR Normal >60 [facility] Comment on above: Order Comment: Call MD with results STAT Result Comment: Canc elled via OM: MD Ordered Performed By: #### L 500.2500 ####[facility] [address] [place], [address] EST GFR - AA Normal >60 [facility] Comment on above: Order Comment: Call MD with results STAT Result Comment: Canc elled via OM: MD Ordered Performed By: #### L 500.2500 ####[facility] [address] [place], [address] GAP Normal 5-15 [facility] Comment on above: Order Comment: Call MD with results STAT Result Comment: Canc elled via OM: MD Ordered Performed By: #### L 500.2500 ####[facility] [address] [place], [address] GLU Normal 74-106 [facility] Comment on above: Order Comment: Call MD with results STAT Result Comment: Canc elled via OM: MD Ordered Performed By: #### L 500.2500 ####[facility] [address] [place], [address] Potassium Normal 3.5-5.1 [facility] Comment on above: Order Comment: Call MD with results STAT Result Comment: Canc elled via OM: MD Ordered Performed By: #### L 500.2500 ####[facility] [address] [place], [address] Basic Metabolic Profile (BMP) Normal 136-145 [facility] Comment on above: Order Comment: Call MD with results STAT Result Comment: Canc elled via OM: MD Ordered Performed By: #### L 500.2500 ####[facility] [address] [place], [address] BUN/CRE 10.1 RATIO Normal 10-20 [facility] Comment on above: Performed By: #### L 500.2500 ####[facility] [address] [place], [address] CA,Total 8.5 mg/dL Normal 8.5-10.1 [facility] Comment on above: Performed By: #### L 500.2500 ####[facility] [address] [place], [address] Chloride [Moles/Vol] 106 mmol/L Normal 98-107 [facility] Comment on above: Performed By: #### L 500.2500 ####[facility] [address] [place], [address] CO2 [Moles/Vol] 14.0 mmol/L Low 21.0-32.0 [facility] Comment on above: Performed By: #### L 500.2500 ####[facility] [address] [place], [address] Creatinine [Mass/Vol] 0.69 mg/dL Normal 0.55-1.02 [facility] Comment on above: Result Comment: The validity of the calculated GFR GFRAA in patients over70 years has not been determined. Clinical correlation isessential. Performed By: #### L 500.2500 ####[facility] [address] [place], [address] ECRCL 100.26 ml/min Normal [facility] Comment on above: Performed By: #### L 500.2500 ####[facility] [address] [place], [address] EST GFR - AA 125 mL/min Normal >60 [facility] Comment on above: Result Comment: Afri can Cambodian GFR Calc Performed By: #### L 500.2500 ####[facility] [address] [place], [address] GAP 12 Normal 5-15 [facility] Comment on above: Performed By: #### L 500.2500 ####[facility] [address] [place], [address] GFR/1.73 sq M.predicted among non-blacks MDRD (S/P/Bld) [Vol rate/Area] 103 mL/min/{1.73_m2} Normal >60 [facility] Comment on above: Result Comment: Non- GFR Calc Performed By: #### L 500.2500 ####[facility] [address] [place], [address] Glucose [Mass/Vol] 341 mg/dL High 74-106 [facility] Comment on above: Result Comment: Gluc ose result greater than or equal to 200 mg/dLsuggests DIABETES MELLITUS per A.D.A. criteria. Performed By: #### L 500.2500 ####[facility] [address] [place], [address] Potassium [Moles/Vol] 4.8 mmol/L Normal 3.5-5.1 [facility] Comment on above: Performed By: #### L 500.2500 ####[facility] [address] [place], [address] Sodium [Moles/Vol] 132 mmol/L Low 136-145 [facility] Comment on above: Performed By: #### L 500.2500 ####[facility] [address] [place], [address] Urea nitrogen [Mass/Vol] 7 mg/dL Normal 7-18 [facility] Comment on above: Performed By: #### L 500.2500 ####[facility] [address] [place], [address] BUN Normal 7-18 [facility] Comment on above: Order Comment: Call MD with results STAT Result Comment: Dimas roblero via OM: Ordered Performed By: #### L 500.2500 ####[facility] [address] [place], [address] BUN/CRE Normal 10-20 [facility] Comment on above: Order Comment: Call MD with results STAT Result Comment: Canc elled via OM: MD Ordered Performed By: #### L 500.2500 ####[facility] [address] [place], [address] CA,Total Normal 8.5-10.1 [facility] Comment on above: Order Comment: Call MD with results STAT Result Comment: Canc elled via OM: MD Ordered Performed By: #### L 500.2500 ####[facility] [address] [place], [address] CL Normal 98-107 [facility] Comment on above: Order Comment: Call MD with results STAT Result Comment: Canc elled via OM: MD Ordered Performed By: #### L 500.2500 ####[facility] [address] [place], [address] CO2 Normal 21.0-32.0 [facility] Comment on above: Order Comment: Call MD with results STAT Result Comment: Canc elled via OM: MD Ordered Performed By: #### L 500.2500 ####[facility] [address] [place], [address] CREAT,SERUM Normal 0.55-1.02 [facility] Comment on above: Order Comment: Call MD with results STAT Result Comment: Canc elled via OM: MD Ordered Performed By: #### L 500.2500 ####[facility] [address] [place], [address] EST GFR Normal >60 [facility] Comment on above: Order Comment: Call MD with results STAT Result Comment: Canc elled via OM: MD Ordered Performed By: #### L 500.2500 ####[facility] [address] [place], [address] EST GFR - AA Normal >60 [facility] Comment on above: Order Comment: Call MD with results STAT Result Comment: Canc elled via OM: MD Ordered Performed By: #### L 500.2500 ####[facility] [address] [place], [address] GAP Normal 5-15 [facility] Comment on above: Order Comment: Call MD with results STAT Result Comment: Canc elled via OM: MD Ordered Performed By: #### L 500.2500 ####[facility] [address] [place], [address] GLU Normal 74-106 [facility] Comment on above: Order Comment: Call MD with results STAT Result Comment: Canc elled via OM: MD Ordered Performed By: #### L 500.2500 ####[facility] [address] [place], [address] Potassium Normal 3.5-5.1 [facility] Comment on above: Order Comment: Call MD with results STAT Result Comment: Canc elled via OM: MD Ordered Performed By: #### L 500.2500 ####[facility] [address] [place], [address] Basic Metabolic Profile (BMP) Normal 136-145 [facility] Comment on above: Order Comment: Call MD with results STAT Result Comment: Canc elled via OM: MD Ordered Performed By: #### L 500.2500 ####[facility] [address] [place], [address] BUN/CRE 8.4 RATIO Low 10-20 [facility] Comment on above: Performed By: #### L 500.2500 ####[facility] [address] [place], [address] CA,Total 8.7 mg/dL Normal 8.5-10.1 [facility] Comment on above: Performed By: #### L 500.2500 ####[facility] [address] [place], [address] Chloride [Moles/Vol] 109 mmol/L High 98-107 [facility] Comment on above: Performed By: #### L 500.2500 ####[facility] [address] [place], [address] CO2 [Moles/Vol] 15.0 mmol/L Low 21.0-32.0 [facility] Comment on above: Performed By: #### L 500.2500 ####[facility] [address] [place], [address] Creatinine [Mass/Vol] 0.60 mg/dL Normal 0.55-1.02 [facility] Comment on above: Result Comment: The validity of the calculated GFR GFRAA in patients over70 years has not been determined. Clinical correlation isessential. Performed By: #### L 500.2500 ####[facility] [address] [place], [address] ECRCL 115.29 ml/min Normal [facility] Comment on above: Performed By: #### L 500.2500 ####[facility] [address] [place], [address] EST GFR - AA 147 mL/min Normal >60 [facility] Comment on above: Result Comment: Afri can Cambodian GFR Calc Performed By: #### L 500.2500 ####[facility] [address] [place], [address] GAP 11 Normal 5-15 [facility] Comment on above: Performed By: #### L 500.2500 ####[facility] [address] [place], [address] GFR/1.73 sq M.predicted among non-blacks MDRD (S/P/Bld) [Vol rate/Area] 122 mL/min/{1.73_m2} Normal >60 [facility] Comment on above: Result Comment: Non- GFR Calc Performed By: #### L 500.2500 ####[facility] [address] [place], [address] Glucose [Mass/Vol] 200 mg/dL High 74-106 [facility] Comment on above: Result Comment: Gluc ose result greater than or equal to 200 mg/dLsuggests DIABETES MELLITUS per A.D.A. criteria. Performed By: #### L 500.2500 ####[facility] [address] [place], [address] Potassium [Moles/Vol] 4.2 mmol/L Normal 3.5-5.1 [facility] Comment on above: Performed By: #### L 500.2500 ####[facility] [address] [place], [address] Sodium [Moles/Vol] 135 mmol/L Low 136-145 [facility] Comment on above: Performed By: #### L 500.2500 ####[facility] [address] [place], [address] Urea nitrogen [Mass/Vol] 5 mg/dL Low 7-18 [facility] Comment on above: Performed By: #### L 500.2500 ####[facility] [address] [place], [address] BUN Normal 7-18 [facility] Comment on above: Order Comment: Call with results STAT Result Comment: Dimas roblero via OM: MD Ordered Performed By: #### L 500.2500 ####[facility] [address] [place], [address] BUN/CRE Normal 10-20 [facility] Comment on above: Order Comment: Call with results STAT Result Comment: Dimas roblero via OM: Ordered Performed By: #### L 500.2500 ####[facility] [address] [place], [address] CA,Total Normal 8.5-10.1 [facility] Comment on above: Order Comment: Call MD with results STAT Result Comment: Canc elled via OM: MD Ordered Performed By: #### L 500.2500 ####[facility] [address] [place], [address] CL Normal 98-107 [facility] Comment on above: Order Comment: Call MD with results STAT Result Comment: Canc elled via OM: MD Ordered Performed By: #### L 500.2500 ####[facility] [address] [place], [address] CO2 Normal 21.0-32.0 [facility] Comment on above: Order Comment: Call MD with results STAT Result Comment: Canc elled via OM: MD Ordered Performed By: #### L 500.2500 ####[facility] [address] [place], [address] CREAT,SERUM Normal 0.55-1.02 [facility] Comment on above: Order Comment: Call MD with results STAT Result Comment: Canc elled via OM: MD Ordered Performed By: #### L 500.2500 ####[facility] [address] [place], [address] EST GFR Normal >60 [facility] Comment on above: Order Comment: Call MD with results STAT Result Comment: Canc elled via OM: MD Ordered Performed By: #### L 500.2500 ####[facility] [address] [place], [address] EST GFR - AA Normal >60 [facility] Comment on above: Order Comment: Call MD with results STAT Result Comment: Canc elled via OM: MD Ordered Performed By: #### L 500.2500 ####[facility] [address] [place], [address] GAP Normal 5-15 [facility] Comment on above: Order Comment: Call MD with results STAT Result Comment: Canc elled via OM: MD Ordered Performed By: #### L 500.2500 ####[facility] [address] [place], [address] GLU Normal 74-106 [facility] Comment on above: Order Comment: Call MD with results STAT Result Comment: Canc elled via OM: MD Ordered Performed By: #### L 500.2500 ####[facility] [address] [place], [address] Potassium Normal 3.5-5.1 [facility] Comment on above: Order Comment: Call MD with results STAT Result Comment: Canc elled via OM: MD Ordered Performed By: #### L 500.2500 ####[facility] [address] [place], [address] Basic Metabolic Profile (BMP) Normal 136-145 [facility] Comment on above: Order Comment: Call MD with results STAT Result Comment: Canc elled via OM: MD Ordered Performed By: #### L 500.2500 ####[facility] [address] [place], [address] BUN Normal 7-18 [facility] Comment on above: Order Comment: Call MD with results STAT Result Comment: CANC ELLATION ORDER Performed By: #### L 500.2500 ####[facility] [address] [place], [address] BUN/CRE Normal 10-20 [facility] Comment on above: Order Comment: Call MD with results STAT Result Comment: CANC ELLATION ORDER Performed By: #### L 500.2500 ####[facility] [address] [place], [address] CA,Total Normal 8.5-10.1 [facility] Comment on above: Order Comment: Call MD with results STAT Result Comment: CANC ELLATION ORDER Performed By: #### L 500.2500 ####[facility] [address] [place], [address] CL Normal 98-107 [facility] Comment on above: Order Comment: Call MD with results STAT Result Comment: CANC ELLATION ORDER Performed By: #### L 500.2500 ####[facility] [address] [place], [address] CO2 Normal 21.0-32.0 [facility] Comment on above: Order Comment: Call MD with results STAT Result Comment: CANC ELLATION ORDER Performed By: #### L 500.2500 ####[facility] [address] [place], [address] CREAT,SERUM Normal 0.55-1.02 [facility] Comment on above: Order Comment: Call MD with results STAT Result Comment: CANC ELLATION ORDER Performed By: #### L 500.2500 ####[facility] [address] [place], [address] EST GFR Normal >60 [facility] Comment on above: Order Comment: Call MD with results STAT Result Comment: CANC ELLATION ORDER Performed By: #### L 500.2500 ####[facility] [address] [place], [address] EST GFR - AA Normal >60 [facility] Comment on above: Order Comment: Call MD with results STAT Result Comment: CANC ELLATION ORDER Performed By: #### L 500.2500 ####[facility] [address] [place], [address] GAP Normal 5-15 [facility] Comment on above: Order Comment: Call MD with results STAT Result Comment: CANC ELLATION ORDER Performed By: #### L 500.2500 ####[facility] [address] [place], [address] GLU Normal 74-106 [facility] Comment on above: Order Comment: Call MD with results STAT Result Comment: CANC ELLATION ORDER Performed By: #### L 500.2500 ####[facility] [address] [place], [address] Potassium Normal 3.5-5.1 [facility] Comment on above: Order Comment: Call MD with results STAT Result Comment: CANC ELLATION ORDER Performed By: #### L 500.2500 ####[facility] [address] [place], [address] Basic Metabolic Profile (BMP) Normal 136-145 [facility] Comment on above: Order Comment: Call MD with results STAT Result Comment: CANC ELLATION ORDER Performed By: #### L 500.2500 ####[facility] [address] [place], [address] Bedside Glucoseon 04-05-2023 FINGERSTICK GLU 324 mg/dL High 74-106 [facility] Comment on above: Result Comment: KAZ GEMENT OF PATIENT CARE PER NURSING PROTOCOL Performed By: #### L 501.080 ####[facility] [address] [place], [address] FINGERSTICK GLU 202 mg/dL High 74-106 [facility] Comment on above: Result Comment: KAZ GEMENT OF PATIENT CARE PER NURSING PROTOCOL Performed By: #### L 501.080 ####[facility] [address] [place], [address] FINGERSTICK GLU 97 mg/dL Normal 74-106 [facility] Comment on above: Result Comment: KAZ GEMENT OF PATIENT CARE PER NURSING PROTOCOL Performed By: #### L 501.080 ####[facility] [address] [place], [address] CBC W/Diff, Automatedon - Lymphocytes/100 WBC (Bld) 13.1 % Low 19-41 [facility] Comment on above: Performed By: #### L 100.0100 ####[facility] [address] [place], [address] Neutrophils/100 WBC (Bld) 79.2 % High 47-70 [facility] Comment on above: Performed By: #### L 100.0100 ####[facility] [address] [place], [address] Discharge Instructionon 03-10 Discharge Instruction Normal [facility] 12 Lead EKGon 04-04-2024 12 Lead EKG Normal [facility] Acetone Serumon 04-04-2024 ACETONE SERUM Negative Normal NEG [facility] Comment on above: Performed By: #### L 501.6900 ####[facility] [address] [place], [address] ACETONE SERUM MODERATE Abnormal NEG [facility] Comment on above: Performed By: #### L 501.6900, L500.4050, L100.0100 ####[facility] [address] [place], [address] Basic Metabolic Profile (BMP )on 04-04-2024 BUN/CRE 8.5 RATIO Low 10-20 [facility] Comment on above: Order Comment: Call MD with results STAT Performed By: #### L 500.2500 ####[facility] [address] [place], [address] CA,Total 8.5 mg/dL Normal 8.5-10.1 [facility] Comment on above: Order Comment: Call MD with results STAT Performed By: #### L 500.2500 ####[facility] [address] [place], [address] Chloride [Moles/Vol] 110 mmol/L High 98-107 [facility] Comment on above: Order Comment: Call MD with results STAT Performed By: #### L 500.2500 ####[facility] [address] [place], [address] CO2 [Moles/Vol] 16.0 mmol/L Low 21.0-32.0 [facility] Comment on above: Order Comment: Call MD with results STAT Performed By: #### L 500.2500 ####[facility] [address] [place], [address] Creatinine [Mass/Vol] 0.70 mg/dL Normal 0.55-1.02 [facility] Comment on above: Order Comment: Call MD with results STAT Result Comment: The validity of the calculated GFR GFRAA in patients over70 years has not been determined. Clinical correlation isessential. Performed By: #### L 500.2500 ####[facility] [address] [place], [address] ECRCL 98.36 ml/min Normal [facility] Comment on above: Order Comment: Call MD with results STAT Performed By: #### L 500.2500 ####[facility] [address] [place], [address] EST GFR - AA 122 mL/min Normal >60 [facility] Comment on above: Order Comment: Call MD with results STAT Result Comment: Afri can Cambodian GFR Calc Performed By: #### L 500.2500 ####[facility] [address] [place], [address] GAP 8 Normal 5-15 [facility] Comment on above: Order Comment: Call MD with results STAT Performed By: #### L 500.2500 ####[facility] [address] [place], [address] GFR/1.73 sq M.predicted among non-blacks MDRD (S/P/Bld) [Vol rate/Area] 101 mL/min/{1.73_m2} Normal >60 [facility] Comment on above: Order Comment: Call MD with results STAT Result Comment: Non- GFR Calc Performed By: #### L 500.2500 ####[facility] [address] [place], [address] Glucose [Mass/Vol] 163 mg/dL High 74-106 [facility] Comment on above: Order Comment: Call MD with results STAT Result Comment: Fast ing Glucose result greater than or equal to 126 mg/dLsuggests DIABETES MELLITUS per A.D.A. criteria. Performed By: #### L 500.2500 ####[facility] [address] [place], [address] Potassium [Moles/Vol] 3.6 mmol/L Normal 3.5-5.1 [facility] Comment on above: Order Comment: Call MD with results STAT Performed By: #### L 500.2500 ####[facility] [address] [place], [address] Sodium [Moles/Vol] 134 mmol/L Low 136-145 [facility] Comment on above: Order Comment: Call MD with results STAT Performed By: #### L 500.2500 ####[facility] [address] [place], [address] Urea nitrogen [Mass/Vol] 6 mg/dL Low 7-18 [facility] Comment on above: Order Comment: Call MD with results STAT Performed By: #### L 500.2500 ####[facility] [address] [place], [address] BUN/CRE 7.3 RATIO Low 10-20 [facility] Comment on above: Order Comment: Call MD with results STAT Performed By: #### L 500.2500 ####[facility] [address] [place], [address] CA,Total 8.6 mg/dL Normal 8.5-10.1 [facility] Comment on above: Order Comment: Call MD with results STAT Performed By: #### L 500.2500 ####[facility] [address] [place], [address] Chloride [Moles/Vol] 109 mmol/L High 98-107 [facility] Comment on above: Order Comment: Call MD with results STAT Performed By: #### L 500.2500 ####[facility] [address] [place], [address] CO2 [Moles/Vol] 13.0 mmol/L Low 21.0-32.0 [facility] Comment on above: Order Comment: Call MD with results STAT Performed By: #### L 500.2500 ####[facility] [address] [place], [address] Creatinine [Mass/Vol] 0.83 mg/dL Normal 0.55-1.02 [facility] Comment on above: Order Comment: Call MD with results STAT Result Comment: The validity of the calculated GFR GFRAA in patients over70 years has not been determined. Clinical correlation isessential. Performed By: #### L 500.2500 ####[facility] [address] [place], [address] ECRCL 82.96 ml/min Normal [facility] Comment on above: Order Comment: Call MD with results STAT Performed By: #### L 500.2500 ####[facility] [address] [place], [address] EST GFR - AA 101 mL/min Normal >60 [facility] Comment on above: Order Comment: Call MD with results STAT Result Comment: Afri can Cambodian GFR Calc Performed By: #### L 500.2500 ####[facility] [address] [place], [address] GAP 11 Normal 5-15 [facility] Comment on above: Order Comment: Call MD with results STAT Performed By: #### L 500.2500 ####[facility] [address] [place], [address] GFR/1.73 sq M.predicted among non-blacks MDRD (S/P/Bld) [Vol rate/Area] 84 mL/min/{1.73_m2} Normal >60 [facility] Comment on above: Order Comment: Call MD with results STAT Result Comment: Non- GFR Calc Performed By: #### L 500.2500 ####[facility] [address] [place], [address] Glucose [Mass/Vol] 237 mg/dL High 74-106 [facility] Comment on above: Order Comment: Call MD with results STAT Result Comment: Gluc ose result greater than or equal to 200 mg/dLsuggests DIABETES MELLITUS per A.D.A. criteria. Performed By: #### L 500.2500 ####[facility] [address] [place], [address] Potassium [Moles/Vol] 4.1 mmol/L Normal 3.5-5.1 [facility] Comment on above: Order Comment: Call MD with results STAT Performed By: #### L 500.2500 ####[facility] [address] [place], [address] Sodium [Moles/Vol] 132 mmol/L Low 136-145 [facility] Comment on above: Order Comment: Call MD with results STAT Performed By: #### L 500.2500 ####[facility] [address] [place], [address] Urea nitrogen [Mass/Vol] 6 mg/dL Low 7-18 [facility] Comment on above: Order Comment: Call MD with results STAT Performed By: #### L 500.2500 ####[facility] [address] [place], [address] BUN/CRE 8.8 RATIO Low 10-20 [facility] Comment on above: Performed By: #### L 500.2500 ####[facility] [address] [place], [address] CA,Total 8.4 mg/dL Low 8.5-10.1 [facility] Comment on above: Performed By: #### L 500.2500 ####[facility] [address] [place], [address] Chloride [Moles/Vol] 109 mmol/L High 98-107 [facility] Comment on above: Performed By: #### L 500.2500 ####[facility] [address] [place], [address] CO2 [Moles/Vol] 8.0 mmol/L Invalid Interpretation Code 21.0-32.0 [facility] Comment on above: Result Comment: Crit ical Result(s) Called at: 15:05:58 04/04/2024 by: Temo to Teodoro Sosa. Results read back by same. Performed By: #### L 500.2500 ####[facility] [address] [place], [address] Creatinine [Mass/Vol] 0.80 mg/dL Normal 0.55-1.02 [facility] Comment on above: Result Comment: The validity of the calculated GFR GFRAA in patients over70 years has not been determined. Clinical correlation isessential. Performed By: #### L 500.2500 ####[facility] [address] [place], [address] ECRCL 86.07 ml/min Normal [facility] Comment on above: Performed By: #### L 500.2500 ####[facility] [address] [place], [address] EST GFR - AA 106 mL/min Normal >60 [facility] Comment on above: Result Comment: Afri can Cambodian GFR Calc Performed By: #### L 500.2500 ####[facility] [address] [place], [address] GAP 16 High 5-15 [facility] Comment on above: Performed By: #### L 500.2500 ####[facility] [address] [place], [address] GFR/1.73 sq M.predicted among non-blacks MDRD (S/P/Bld) [Vol rate/Area] 87 mL/min/{1.73_m2} Normal >60 [facility] Comment on above: Result Comment: Non- GFR Calc Performed By: #### L 500.2500 ####[facility] [address] [place], [address] Glucose [Mass/Vol] 248 mg/dL High 74-106 [facility] Comment on above: Result Comment: Gluc ose result greater than or equal to 200 mg/dLsuggests DIABETES MELLITUS per A.D.A. criteria. Performed By: #### L 500.2500 ####[facility] [address] [place], [address] Potassium [Moles/Vol] 4.8 mmol/L Normal 3.5-5.1 [facility] Comment on above: Performed By: #### L 500.2500 ####[facility] [address] [place], [address] Sodium [Moles/Vol] 133 mmol/L Low 136-145 [facility] Comment on above: Performed By: #### L 500.2500 ####[facility] [address] [place], [address] Urea nitrogen [Mass/Vol] 7 mg/dL Normal 7-18 [facility] Comment on above: Performed By: #### L 500.2500 ####[facility] [address] [place], [address] BUN Normal 7-18 [facility] Comment on above: Order Comment: Call with results STAT Result Comment: Dimas rolbero via OM: Ordered Performed By: #### L 500.2500 ####[facility] [address] [place], [address] BUN/CRE Normal 10-20 [facility] Comment on above: Order Comment: Call with results STAT Result Comment: Dimas roblero via OM: Ordered Performed By: #### L 500.2500 ####[facility] [address] [place], [address] CA,Total Normal 8.5-10.1 [facility] Comment on above: Order Comment: Call MD with results STAT Result Comment: Canc elled via OM: MD Ordered Performed By: #### L 500.2500 ####[facility] [address] [place], [address] CL Normal 98-107 [facility] Comment on above: Order Comment: Call MD with results STAT Result Comment: Canc elled via OM: MD Ordered Performed By: #### L 500.2500 ####[facility] [address] [place], [address] CO2 Normal 21.0-32.0 [facility] Comment on above: Order Comment: Call MD with results STAT Result Comment: Canc elled via OM: MD Ordered Performed By: #### L 500.2500 ####[facility] [address] [place], [address] CREAT,SERUM Normal 0.55-1.02 [facility] Comment on above: Order Comment: Call MD with results STAT Result Comment: Canc elled via OM: MD Ordered Performed By: #### L 500.2500 ####[facility] [address] [place], [address] EST GFR Normal >60 [facility] Comment on above: Order Comment: Call MD with results STAT Result Comment: Canc elled via OM: MD Ordered Performed By: #### L 500.2500 ####[facility] [address] [place], [address] EST GFR - AA Normal >60 [facility] Comment on above: Order Comment: Call MD with results STAT Result Comment: Canc elled via OM: MD Ordered Performed By: #### L 500.2500 ####[facility] [address] [place], [address] GAP Normal 5-15 [facility] Comment on above: Order Comment: Call MD with results STAT Result Comment: Canc elled via OM: MD Ordered Performed By: #### L 500.2500 ####[facility] [address] [place], [address] GLU Normal 74-106 [facility] Comment on above: Order Comment: Call MD with results STAT Result Comment: Canc elled via OM: MD Ordered Performed By: #### L 500.2500 ####[facility] [address] [place], [address] Potassium Normal 3.5-5.1 [facility] Comment on above: Order Comment: Call MD with results STAT Result Comment: Canc elled via OM: MD Ordered Performed By: #### L 500.2500 ####[facility] [address] [place], [address] Basic Metabolic Profile (BMP) Normal 136-145 [facility] Comment on above: Order Comment: Call MD with results STAT Result Comment: Canc elled via OM: MD Ordered Performed By: #### L 500.2500 ####[facility] [address] [place], [address] Bedside Glucoseon 04-04-2024 FINGERSTICK GLU 162 mg/dL High 74-106 [facility] Comment on above: Result Comment: KAZ GEMENT OF PATIENT CARE PER NURSING PROTOCOL Performed By: #### L 501.080 ####[facility] [address] [place], [address] FINGERSTICK GLU 194 mg/dL High 74-106 [facility] Comment on above: Result Comment: KAZ GEMENT OF PATIENT CARE PER NURSING PROTOCOL Performed By: #### L 501.080 ####[facility] [address] [place], [address] FINGERSTICK GLU 230 mg/dL High 74-106 [facility] Comment on above: Result Comment: KAZ GEMENT OF PATIENT CARE PER NURSING PROTOCOL Performed By: #### L 501.080 ####[facility] [address] [place], [address] FINGERSTICK GLU 235 mg/dL High 74-106 [facility] Comment on above: Result Comment: KAZ GEMENT OF PATIENT CARE PER NURSING PROTOCOL Performed By: #### L 501.080 ####[facility] [address] [place], [address] FINGERSTICK GLU 243 mg/dL High [address] [place] [address] Comment on above: Result Comment: KAZ GEMENT OF PATIENT CARE PER NURSING PROTOCOL Performed By: #### L 501.080 ####[facility] [address] [place], [address] FINGERSTICK GLU 240 mg/dL High [address] [place] [address] Comment on above: Result Comment: KAZ GEMENT OF PATIENT CARE PER NURSING PROTOCOL Performed By: #### L 501.080 ####[facility] [address] [place], [address] FINGERSTICK GLU 231 mg/dL High [address] [place] [address] Comment on above: Result Comment: KAZ GEMENT OF PATIENT CARE PER NURSING PROTOCOL Performed By: #### L 501.080 ####[facility] [address] [place], [address] FINGERSTICK GLU 271 mg/dL High [address] [place] [address] Comment on above: Result Comment: KAZ GEMENT OF PATIENT CARE PER NURSING PROTOCOL Performed By: #### L 501.080 ####[facility] [address] [place], [address] FINGERSTICK GLU 339 mg/dL High [address] [place] [address] Comment on above: Result Comment: KAZ GEMENT OF PATIENT CARE PER NURSING PROTOCOL Performed By: #### L 501.080 ####[facility] [address] [place], [address] FINGERSTICK GLU 484 mg/dL Invalid Interpretation Code [address] [place] [address] Comment on above: Result Comment: Dr Lima aguilera FollowedMANAGEMENT OF PATIENT CARE PER NURSING PROTOCOL Performed By: #### L 501.080 ####[facility] [address] [place], [address] FINGERSTICK GLU 420 mg/dL High 74-106 [facility] Comment on above: Result Comment: KAZ YUN OF PATIENT CARE PER NURSING PROTOCOL Performed By: #### L 501.080 ####[facility] [address] [place], [address] Chest 1 View (Portable)on Chest 1 View (Portable) Normal [facility] Comprehensive Metabolic Prof ilon 04-04-2024 Albumin [Mass/Vol] 4.4 g/dL Normal 3.2-5.0 [facility] Comment on above: Performed By: #### L 501.6900, L500.4050, L100.0100 ####[facility] [address] [place], [address] Albumin/Globulin [Mass ratio] 0.8 {ratio} Low 0.9-2.4 [facility] Comment on above: Performed By: #### L 501.6900, L500.4050, L100.0100 ####[facility] [address] [place], [address] ALK P 122 U/L High 45-117 [facility] Comment on above: Performed By: #### L 501.6900, L500.4050, L100.0100 ####[facility] [address] [place], [address] ALT [Catalytic activity/Vol] 17 U/L Normal 13-56 [facility] Comment on above: Performed By: #### L 501.6900, L500.4050, L100.0100 ####[facility] [address] [place], [address] AST [Catalytic activity/Vol] 15 U/L Normal 15-37 [facility] Comment on above: Performed By: #### L 501.6900, L500.4050, L100.0100 ####[facility] [address] [place], [address] Bilirubin [Mass/Vol] 0.60 mg/dL Normal 0.20-1.00 [facility] Comment on above: Result Comment: For patients on eltrombopag therapy, use of Dimension Saline TBIL is not recommended. Performed By: #### L 501.6900, L500.4050, L100.0100 ####[facility] [address] [place], [address] BUN/CRE 9.7 RATIO Low 10-20 [facility] Comment on above: Performed By: #### L 501.6900, L500.4050, L100.0100 ####[facility] [address] [place], [address] CA,Total 9.8 mg/dL Normal 8.5-10.1 [facility] Comment on above: Performed By: #### L 501.6900, L500.4050, L100.0100 ####[facility] [address] [place], [address] Chloride [Moles/Vol] 95 mmol/L Low 98-107 [facility] Comment on above: Performed By: #### L 501.6900, L500.4050, L100.0100 ####[facility] [address] [place], [address] CO2 [Moles/Vol] 7.0 mmol/L Invalid Interpretation Code 21.0-32.0 [facility] Comment on above: Result Comment: Crit ical Result(s) Called at: 10:19:24 04/04/2024 by: Temo Blackburn. Results read back by same. Performed By: #### L 501.6900, L500.4050, L100.0100 ####[facility] [address] [place], [address] Creatinine [Mass/Vol] 1.13 mg/dL High 0.55-1.02 [facility] Comment on above: Result Comment: The validity of the calculated GFR GFRAA in patients over70 years has not been determined. Clinical correlation isessential. Performed By: #### L 501.6900, L500.4050, L100.0100 ####[facility] [address] [place], [address] ECRCL 60.29 ml/min Normal [facility] Comment on above: Performed By: #### L 501.6900, L500.4050, L100.0100 ####[facility] [address] [place], [address] EST GFR - AA 71 mL/min Normal >60 [facility] Comment on above: Result Comment: Afri can Cambodian GFR Calc Performed By: #### L 501.6900, L500.4050, L100.0100 ####[facility] [address] [place], [address] GAP 25 High 5-15 [facility] Comment on above: Performed By: #### L 501.6900, L500.4050, L100.0100 ####[facility] [address] [place], [address] GFR/1.73 sq M.predicted among non-blacks MDRD (S/P/Bld) [Vol rate/Area] 58 mL/min/{1.73_m2} Low >60 [facility] Comment on above: Result Comment: Non- GFR Calc Performed By: #### L 501.6900, L500.4050, L100.0100 ####[facility] [address] [place], [address] Globulin (S) [Mass/Vol] 5.5 g/dL High 2.2-4.2 [facility] Comment on above: Performed By: #### L 501.6900, L500.4050, L100.0100 ####[facility] [address] [place], [address] Glucose [Mass/Vol] 452 mg/dL Invalid Interpretation Code 74-106 [facility] Comment on above: Result Comment: Crit ical Result(s) Called at: 10:19:04/04/2024 by: Temo Blackburn. Results read back by same.Glucose result greater than or equal to 200 mg/dLsuggests DIABETES MELLITUS per A.D.A. criteria. Performed By: #### L 501.6900, L500.4050, L100.0100 ####[facility] [address] [place], [address] Potassium [Moles/Vol] 6.4 mmol/L Invalid Interpretation Code 3.5-5.1 [facility] Comment on above: Result Comment: Crit ical Result(s) Called at: 10:19:04/04/2024 by: Temo Blackburn. Results read back by same. Performed By: #### L 501.6900, L500.4050, L100.0100 ####[facility] [address] [place], [address] Sodium [Moles/Vol] 127 mmol/L Low 136-145 [facility] Comment on above: Performed By: #### L 501.6900, L500.4050, L100.0100 ####[facility] [address] [place], [address] T PROT 9.9 g/dL High 6.4-8.2 [facility] Comment on above: Performed By: #### L 501.6900, L500.4050, L100.0100 ####[facility] [address] [place], [address] Urea nitrogen [Mass/Vol] 11 mg/dL Normal 7-18 [facility] Comment on above: Performed By: #### L 501.6900, L500.4050, L100.0100 ####[facility] [address] [place], [address] Emergency Department Summary on 04-04-2024 Emergency Department Summary Normal [facility] H AND P Exam - Hospitaliston 04-04-2024 H&P Exam - Hospitalist Normal [facility] ,Urineon 04-04-2024 Beta HCG ( test) Ql (U) Negative Normal [facility] Comment on above: Order Comment: CLEAN CATCH Result Comment: Very dilute urine specimens, as indicated by a low specificgravity, may not contain hvac sales representative levels of hCG.If is still suspected, a first morning urinespecimen should be collected 48 hours later and tested. Performed By: #### L 400.7600, L400.0001 ####[facility] [address] [place], [address] Urinalysis, Completeon 04-04 EPI,SQUAMOUS 0-5 SEEN Normal 5-10 [facility] Comment on above: Order Comment: CLEAN CATCH Performed By: #### L 400.7600, L400.0001 ####[facility] [address] [place], [address] BACTERIA 0 SEEN Normal None Seen [facility] Comment on above: Order Comment: CLEAN CATCH Performed By: #### L 400.7600, L400.0001 ####[facility] [address] [place], [address] Mucus Ql (Urine sed) 0 SEEN Normal [facility] Comment on above: Order Comment: CLEAN CATCH Performed By: #### L 400.7600, L400.0001 ####[facility] [address] [place], [address] RBC 0 SEEN Normal 0-5 [facility] Comment on above: Order Comment: CLEAN CATCH Performed By: #### L 400.7600, L400.0001 ####[facility] [address] [place], [address] WBC 0 SEEN Normal 0-5 [facility] Comment on above: Order Comment: CLEAN CATCH Performed By: #### L 400.7600, L400.0001 ####[facility] [address] [place], [address] Venous Blood Gason 4 Blood Gas Type BETHANY Normal [facility] Comment on above: Performed By: #### L 9000.0810 ####[facility] [address] [place], [address] CO2 [Moles/Vol] 7 mmol/L Low 23-33 [facility] Comment on above: Performed By: #### L 9000.0810 ####[facility] [address] [place], [address] HCO3 (Bld) [Moles/Vol] 6 mmol/L Low 22-26 [facility] Comment on above: Performed By: #### L 9000.0810 ####[facility] [address] [place], [address] O2 Delivery Dev Room Air [facility] Comment on above: Performed By: #### L 9000.0810 ####[facility] [address] [place], [address] Read Back By Yes [facility] Comment on above: Performed By: #### L 9000.0810 ####[facility] [address] [place], [address] Results To everardo [facility] Comment on above: Performed By: #### L 9000.0810 ####[facility] [address] [place], [address] SITE Not entered [facility] Comment on above: Performed By: #### L 0.0810 ####[facility] [address] [place], [address] Time Given 09:46:03 Normal [facility] Comment on above: Performed By: #### L 9000.0810 ####[facility] [address] [place], [address] VBG BE -26 mmol/L Low -1.0-3.5 [facility] Comment on above: Performed By: #### L 9000.0810 ####[facility] [address] [place], [address] VBG pCO2 24.1 mmHg Low 41-51 [facility] Comment on above: Performed By: #### L 9000.0810 ####[facility] [address] [place], [address] VBG pH 6.99 Invalid Interpretation Code 7.32-7.42 [facility] Comment on above: Performed By: #### L 9000.0810 ####[facility] [address] [place], [address] VBG PO2 45 mmHg High 25-40 [facility] Comment on above: Performed By: #### L 9000.0810 ####[facility] [address] [place], [address] VBG SO2 57 Normal 50-70 [facility] Comment on above: Performed By: #### L 9000.0810 ####[facility] [address] [place], [address] Absolute lymphocyte countOrd ered By: Risa Gatica on 09-24-2023 Lymphocytes Auto (Unsp spec) [#/Vol] 1.34 10*3/uL 0.83-4.51 [facility] Automated lymphocyte count a s percentage of total leukocytesOrdered By: Risa Gatica on 09-24-2023 Lymphocytes/100 WBC Auto (Unsp spec) 14.7 % 19-41 [facility] Basophil percentageOrdered B y: Risa Gatica on 09-24-2023 Basophil percentage 10-25 SEEN /hpf 0-5 [facility] Basophils/100 WBC (Bld) 0.6 % 0-1 [facility] Chloride [Moles/Vol] 100 mmol/L 98-107 [facility] Eosinophils/100 WBC (Bld) 0.0 % 0-5 [facility] Glucose [Mass/Vol] 280 mg/dL 74-106 [facility] Comment on above: Glucose result great er than or equal to 200 mg/dLsuggests DIABETES MELLITUS per A.D.A. criteria. Hemoglobin (Bld) [Mass/Vol] 13.3 g/dL 12.0-15.0 [facility] Monocytes/100 WBC (Bld) 5.7 % 0-10 [facility] Neutrophils (Bld) [#/Vol] 7.1 10*3/uL 2.0-7.7 [facility] Neutrophils/100 WBC (Bld) 78.6 % 47-70 [facility] Potassium [Moles/Vol] 3.9 mmol/L 3.5-5.1 [facility] Sodium [Moles/Vol] 132 mmol/L 136-145 [facility] WBC (Bld) [#/Vol] 9.1 10*3/uL 4.4-11.0 [facility] Bilirubin Test strip Ql (U)O rdered By: Risa Gatica on 09-24-2023 Bilirubin Ql (U) Negative Negative [facility] Determination of erythrocyte mean corpuscular volume (MCV)Ordered By: Risa Gatica on 09-24-2023 MCV (RBC) [Entitic vol] 89.0 fL 81-99 [facility] Erythrocyte distribution wid th ratioOrdered By: Risa Gatica on 09-24-2023 Erythrocyte distribution width (RBC) [Ratio] 13.2 % 11.6-14.6 [facility] Erythrocyte distribution wid th standard deviationOrdered By: Risa Gatica on 09-24-2023 Erythrocyte distribution width (RBC) [Entitic vol] 43.1 fL 35.1-43.9 [facility] Hematocrit Auto (Bld) [Volum e fraction]Ordered By: Risa Gatica on 09-24-2023 Hematocrit (Bld) [Volume fraction] 40.5 % 37-47 [facility] Immature granulocytes/100 WB C Auto (Bld)Ordered By: Risa Gatica on 09-24-2023 Immature granulocytes/100 WBC (Bld) 0.400 % 0.0-0.9 [facility] Comment on above: IG% - Immature Granu locytes (promyelocytes, myelocytes and metamyelocytes) > 1% indicates that a LEFT SHIFT is Present. Ketones Test strip Ql (U)Ord ered By: Risa Gatica on 09-24-2023 Ketones Ql (U) 150 mg/dl Negative [facility] Comment on above: CRITICAL VALUE *HCRI TICAL VALUE VERIFIED. CALLED TO MIRELLA VILLALPANDO (ER)09/24/23 1330 Harjit Whitley.RESULTS READ BACK BY SAME. Laboratory - Chemistry and C hemistry - challengeOrdered By: Risa Gatica on 09-24-2023 CO2 [Moles/Vol] 21.0 mmol/L 21.0-32.0 [facility] Urea nitrogen/Creatinine [Mass ratio] 14.6 mg/mg 10-20 [facility] Laboratory - Hematology and Cell countsOrdered By: iRsa Gatica on 09-24-2023 MCH (RBC) [Entitic mass] 29.2 pg 27.0-32.0 [facility] MCHC (RBC) [Mass/Vol] 32.8 g/dL 32-36 [facility] Nucleated RBC/100 WBC (Bld) [Ratio] 0 % 0-5 [facility] Platelet mean volume (Bld) [Entitic vol] 9.8 fL 6.2-12.0 [facility] Platelets (Bld) [#/Vol] 369 10*3/uL 150-450 [facility] Mucus LM Ql (Urine sed)Order ed By: Risa Gatica on 09-24-2023 Mucus Ql (Urine sed) 0 SEEN /hpf [facility] Nitrite Test strip Ql (U)Ord ered By: Risa Gatica on 09-24-2023 Nitrite Ql (U) Positive Negative [facility] No Panel InformationOrdered By: Risa Gatica on 09-24-2023 Urine RBC 0-5 SEEN /hpf 0-5 [facility] Estimated Creatinine Clearance Calc 106.73 ml/min [facility] Estimated GFR (MDRD) Amer 127 mL/min >60 [facility] Comment on above: GFR Calc Estimated GFR (MDRD) Non-Af Amer 105 mL/min >60 [facility] Comment on above: Non- GFR Calc Troponin I High Sensitivity 3 pg/mL 3.0-54.0 [facility] Comment on above: Please Note: [place] t Units and Gender Specific Reference Ranges. For more information see Policy Stat Procedure Saline High Sensitivity Troponin (TNIH) and attachments. Protein Test strip Ql (U)Ord ered By: Risa Gatica on 09-24-2023 Protein Ql (U) 30 mg/dl Negative [facility] RBC Auto (Bld) [#/Vol]Ordere d By: Risa Gatica on 09-24-2023 RBC (Bld) [#/Vol] 4.55 10*6/uL 4.2-5.4 [facility] Serum or plasma acetone xin urement (mass/volume)Ordered By: Risa Gatica on 09-24-2023 Acetone [Mass/Vol] Negative NEG [facility] Serum or plasma calcium xin urement (mass/volume)Ordered By: Risa Gatica on 09-24-2023 Calcium [Mass/Vol] 9.3 mg/dL 8.5-10.1 [facility] Serum or plasma creatinine m easurement (mass/volume)Ordered By: Risa Gatica on 09-24-2023 Creatinine [Mass/Vol] 0.68 mg/dL 0.55-1.02 [facility] Comment on above: The validity of the calculated GFR & GFRAA in patients over 70 years has not been determined. Clinical correlation is essential. Serum or plasma urea nitroge n measurement (mass/volume)Ordered By: Risa Gatica on 09-24-2023 Urea nitrogen [Mass/Vol] 10 mg/dL 01-23 [facility] Squamous epithelial cells de tection in urine sediment by light microscopyOrdered By: Risa Gatica on 09-24-2023 Epithelial cells.squamous LM Ql (Urine sed) 0-5 SEEN /hpf 5-10 [facility] Thin prep Papanicolaou smear with manual screeningOrdered By: Risa Gatica on 09-24-2023 Thin prep Papanicolaou smear with manual screening 265 mg/dL 74-106 [facility] Comment on above: MANAGEMENT OF PATIEN T CARE PER NURSING PROTOCOL Thin prep Papanicolaou smear with manual screening 11 5-15 [facility] Urine blood detectionOrdered By: Risa Gatica on 09-24-2023 RBC Ql (U) 10 /ul Negative [facility] Urine clarityOrdered By: Giselle Gatica on 09-24-2023 Clarity (U) Sl. Cloudy Clear [facility] Urine color determinationOrd ered By: Risa Gatica on 09-24-2023 Color (U) Yellow Yellow [facility] Urine glucose detectionOrder ed By: Risa Gatica on 09-24-2023 Glucose Ql (U) 1000 mg/dl Normal [facility] Urine leukocyte esterase det ection by dipstickOrdered By: Risa Gatica on 09-24-2023 Leukocyte esterase Test strip Ql (U) 100 /ul Negative [facility] Urine pHOrdered By: Risa Gatica on 09-24-2023 pH (U) 6.0 [pH] 5.0 - 8.0 [facility] Urine sediment bacteria coun t by microscopy (number/high power field)Ordered By: Risa Gatica on 09-24-2023 Bacteria LM.HPF (Urine sed) [#/Area] 1 /[HPF] None Seen [facility] Urine specific gravity measu rementOrdered By: Risa Gatica on 09-24-2023 Specific gravity (U) [Rel density] 1.010 1.002-1.030 [facility] Urine urobilinogen measureme ntOrdered By: Risa Gatica on 09-24-2023 Urobilinogen Ql (U) Normal mg/dl Normal [facility] Absolute lymphocyte countOrd ered By: David Miramontes on 05-26-2023 Lymphocytes Auto (Unsp spec) [#/Vol] 1.50 10*3/uL 0.83-4.51 [facility] Basophil percentageOrdered B y: David Miramontes on 05-26-2023 Chloride [Moles/Vol] 112 mmol/L 98-107 [facility] Glucose [Mass/Vol] 297 mg/dL 74-106 [facility] Comment on above: Glucose result great er than or equal to 200 mg/dLsuggests DIABETES MELLITUS per A.D.A. criteria. Potassium [Moles/Vol] 4.1 mmol/L 3.5-5.1 [facility] Sodium [Moles/Vol] 137 mmol/L 136-145 [facility] Basophil percentage 1.6 mg/dL 2.5-4.9 [facility] Basophils/100 WBC (Bld) 1.0 % 0-1 [facility] Eosinophils/100 WBC (Bld) 1.4 % 0-5 [facility] Neutrophils (Bld) [#/Vol] 5.2 10*3/uL 2.0-7.7 [facility] Neutrophils/100 WBC (Bld) 67.2 % 47-70 [facility] WBC (Bld) [#/Vol] 7.7 10*3/uL 4.4-11.0 [facility] Blood erythrocytes count (nu mber/volume)Ordered By: David Miramontes on 05-26-2023 RBC (Bld) [#/Vol] 4.00 10*6/uL 4.2-5.4 [facility] Blood hemoglobin measurement (mass/volume)Ordered By: David Miramontes on 05-26-2023 Hemoglobin (Bld) [Mass/Vol] 12.7 g/dL 12.0-15.0 [facility] Blood lymphocytes/100 leukoc ytesOrdered By: David Miramontes on 05-26-2023 Lymphocytes/100 WBC (Bld) 19.4 % 19-41 [facility] Blood monocytes/100 leukocyt esOrdered By: David Miramontes on 05-26-2023 Monocytes/100 WBC (Bld) 10.6 % 0-10 [facility] Blood platelet mean volumeOr dered By: David Miramontes on 05-26-2023 Platelet mean volume (Bld) [Entitic vol] 9.8 fL 6.2-12.0 [facility] Determination of erythrocyte mean corpuscular volume (MCV)Ordered By: David Miramontes on 05-26-2023 MCV (RBC) [Entitic vol] 98.8 fL 81-99 [facility] Glucose Glucometer (BldC) [M ass/Vol]Ordered By: Douglas Serrano on 05-26-2023 Glucose [Mass/Vol] 153 mg/dL 74-106 [facility] Comment on above: MANAGEMENT OF PATIEN T CARE PER NURSING PROTOCOL Hematocrit Auto (Bld) [Volum e fraction]Ordered By: David Miramontes on 05-26-2023 Hematocrit (Bld) [Volume fraction] 39.5 % 37-47 [facility] Laboratory - Chemistry and C hemistry - challengeOrdered By: David Miramontes on 05-26-2023 CO2 [Moles/Vol] 14.0 mmol/L 21.0-32.0 [facility] Urea nitrogen/Creatinine [Mass ratio] 2.9 mg/mg 10-20 [facility] Magnesium [Mass/Vol] 1.7 mg/dL 1.6-2.6 [facility] Laboratory - Hematology and Cell countsOrdered By: Munden Kulwinder on 05-26-2023 Erythrocyte distribution width (RBC) [Entitic vol] 45.2 fL 35.1-43.9 [facility] Erythrocyte distribution width (RBC) [Ratio] 12.5 % 11.6-14.6 [facility] Immature granulocytes/100 WBC (Bld) 0.400 % 0.0-0.9 [facility] Comment on above: IG% - Immature Granu locytes (promyelocytes, myelocytes and metamyelocytes) > 1% indicates that a LEFT SHIFT is Present. MCH (RBC) [Entitic mass] 31.8 pg 27.0-32.0 [facility] Nucleated RBC/100 WBC (Bld) [Ratio] 0 % 0-5 [facility] MCHC Auto (RBC) [Mass/Vol]Or dered By: David Miramontes on 05-26-2023 MCHC (RBC) [Mass/Vol] 32.2 g/dL 32-36 [facility] No Panel InformationOrdered By: David Miramontes on 05-26-2023 Estimated Creatinine Clearance Calc 87.51 ml/min [facility] Estimated GFR (MDRD) Amer 126 mL/min >60 [facility] Comment on above: GFR Calc Estimated GFR (MDRD) Non-Af Amer 104 mL/min >60 [facility] Comment on above: Non- GFR Calc Platelets bldOrdered By: Tom Miramontes on 05-26-2023 Platelets (Bld) [#/Vol] 284 10*3/uL 150-450 [facility] Serum or plasma calcium xin urement (mass/volume)Ordered By: David Miramontes on 05-26-2023 Calcium [Mass/Vol] 8.2 mg/dL 8.5-10.1 [facility] Serum or plasma creatinine m easurement (mass/volume)Ordered By: David Miramontes on 05-26-2023 Creatinine [Mass/Vol] 0.69 mg/dL 0.55-1.02 [facility] Comment on above: The validity of the calculated GFR & GFRAA in patients over 70 years has not been determined. Clinical correlation is essential. Serum or plasma urea nitroge n measurement (mass/volume)Ordered By: David Miramontes on 05-26-2023 Urea nitrogen [Mass/Vol] 2 mg/dL - [facility] Thin prep Papanicolaou smear with manual screeningOrdered By: David Miramontes on 05-26-2023 Thin prep Papanicolaou smear with manual screening 11-20 [facility] Absolute lymphocyte countOrd ered By: Risa Gatica on 05-25-2023 Lymphocytes Auto (Unsp spec) [#/Vol] 1.15 10*3/uL 0.83-4.51 [facility] Basophil percentageOrdered B y: Risa Gatica on 05-25-2023 Chloride [Moles/Vol] 110 mmol/L 98-107 [facility] Glucose [Mass/Vol] 175 mg/dL 74-106 [facility] Comment on above: Fasting Glucose resu lt greater than or equal to 126 mg/dL suggests DIABETES MELLITUS per A.D.A. criteria. Potassium [Moles/Vol] 4.1 mmol/L 3.5-5.1 [facility] Sodium [Moles/Vol] 136 mmol/L 136-145 [facility] Basophil percentage 0-5 SEEN /hpf 0-5 [facility] Basophils/100 WBC (Bld) 1.2 % 0-1 [facility] Bilirubin [Mass/Vol] 0.70 mg/dL 0.20-1.00 [facility] Comment on above: For patients on eltr ombopag therapy, use of Dimension Saline TBIL is not recommended. Eosinophils/100 WBC (Bld) 0.1 % 0-5 [facility] Neutrophils (Bld) [#/Vol] 7.3 10*3/uL 2.0-7.7 [facility] Neutrophils/100 WBC (Bld) 78.8 % 47-70 [facility] Protein [Mass/Vol] 8.5 g/dL 6.4-8.2 [facility] WBC (Bld) [#/Vol] 9.3 10*3/uL 4.4-11.0 [facility] Bilirubin Test strip Ql (U)O rdered By: Risa Gatica on 05-25-2023 Bilirubin Ql (U) Negative Negative [facility] Blood erythrocytes count (nu mber/volume)Ordered By: Risa Gatica on 05-25-2023 RBC (Bld) [#/Vol] 4.71 10*6/uL 4.2-5.4 [facility] Blood hemoglobin measurement (mass/volume)Ordered By: Risa Gatica on 05-25-2023 Hemoglobin (Bld) [Mass/Vol] 14.9 g/dL 12.0-15.0 [facility] Blood lymphocytes/100 leukoc ytesOrdered By: Risa Gatica on 05-25-2023 Lymphocytes/100 WBC (Bld) 12.4 % 19-41 [facility] Blood monocytes/100 leukocyt esOrdered By: Risa Gatica on 05-25-2023 Monocytes/100 WBC (Bld) 7.1 % 0-10 [facility] Blood platelet mean volumeOr dered By: Risa Gatica on 05-25-2023 Platelet mean volume (Bld) [Entitic vol] 9.8 fL 6.2-12.0 [facility] Determination of erythrocyte mean corpuscular volume (MCV)Ordered By: Risa Gatica on 05-25-2023 MCV (RBC) [Entitic vol] 100.2 fL 81-99 [facility] Direct bilirubinOrdered By: Risa Gatica on 05-25-2023 Bilirubin.direct [Mass/Vol] 0.28 mg/dL 0.00-0.30 [facility] Glucose Glucometer (BldC) [M ass/Vol]Ordered By: David Miramontes on 05-25-2023 Glucose [Mass/Vol] 191 mg/dL 74-106 [facility] Comment on above: MANAGEMENT OF PATIEN T CARE PER NURSING PROTOCOL Hematocrit Auto (Bld) [Volum e fraction]Ordered By: Risa Gatica on 05-25-2023 Hematocrit (Bld) [Volume fraction] 47.2 % 37-47 [facility] Ketones Test strip Ql (U)Ord ered By: Risa Gatica on 05-25-2023 Ketones Ql (U) 150 mg/dl Negative [facility] Comment on above: CRITICAL VALUE *HCRI TICAL VALUE VERIFIED. CALLED TO [id number] Angely Paiz.RESULTS READ BACK BY SAME . Laboratory - Chemistry and C hemistry - challengeOrdered By: Risa Gatica on 05-25-2023 CO2 [Moles/Vol] 10.0 mmol/L 21.0-32.0 [facility] Urea nitrogen/Creatinine [Mass ratio] 5.1 mg/mg 10-20 [facility] ALP [Catalytic activity/Vol] 116 U/L 45-117 [facility] ALT [Catalytic activity/Vol] 75 U/L 13-56 [facility] Globulin (S) [Mass/Vol] 4.8 g/dL 2.2-4.2 [facility] Laboratory - Hematology and Cell countsOrdered By: Risa Gatica on 05-25-2023 Erythrocyte distribution width (RBC) [Entitic vol] 46.5 fL 35.1-43.9 [facility] Erythrocyte distribution width (RBC) [Ratio] 12.6 % 11.6-14.6 [facility] Immature granulocytes/100 WBC (Bld) 0.400 % 0.0-0.9 [facility] Comment on above: IG% - Immature Granu locytes (promyelocytes, myelocytes and metamyelocytes) > 1% indicates that a LEFT SHIFT is Present. MCH (RBC) [Entitic mass] 31.6 pg 27.0-32.0 [facility] Nucleated RBC/100 WBC (Bld) [Ratio] 0 % 0-5 [facility] MCHC Auto (RBC) [Mass/Vol]Or dered By: Risa Gatica on 05-25-2023 MCHC (RBC) [Mass/Vol] 31.6 g/dL 32-36 [facility] Mucus LM Ql (Urine sed)Order ed By: Risa Gatica on 05-25-2023 Mucus Ql (Urine sed) 0 SEEN /hpf [facility] Nitrite Test strip Ql (U)Ord ered By: Risa Gatica on 05-25-2023 Nitrite Ql (U) Negative Negative [facility] No Panel InformationOrdered By: Risa Gatica on 05-25-2023 Estimated Creatinine Clearance Calc 102.34 ml/min [facility] Estimated GFR (MDRD) Amer 150 mL/min >60 [facility] Comment on above: GFR Calc Estimated GFR (MDRD) Non-Af Amer 124 mL/min >60 [facility] Comment on above: Non- GFR Calc Platelets bldOrdered By: Giselle Gatica on 05-25-2023 Platelets (Bld) [#/Vol] 335 10*3/uL 150-450 [facility] Protein Test strip Ql (U)Ord ered By: Risa Gatica on 05-25-2023 Protein Ql (U) 30 mg/dl Negative [facility] Serum or plasma acetone xin urement (mass/volume)Ordered By: Risa Gatica on 05-25-2023 Acetone [Mass/Vol] MODERATE NEG [facility] Serum or plasma albumin xin urement (mass/volume)Ordered By: Risa Gatica on 05-25-2023 Albumin [Mass/Vol] 3.7 g/dL 3.2-5.0 [facility] Serum or plasma calcium xin urement (mass/volume)Ordered By: Risa Gatica on 05-25-2023 Calcium [Mass/Vol] 8.0 mg/dL 8.5-10.1 [facility] Serum or plasma creatinine m easurement (mass/volume)Ordered By: Risa Gatica on 05-25-2023 Creatinine [Mass/Vol] 0.59 mg/dL 0.55-1.02 [facility] Comment on above: The validity of the calculated GFR & GFRAA in patients over 70 years has not been determined. Clinical correlation is essential. Serum or plasma urea nitroge n measurement (mass/volume)Ordered By: Risa Gatica on 05-25-2023 Urea nitrogen [Mass/Vol] 3 mg/dL 7-18 [facility] Squamous epithelial cells de tection in urine sediment by light microscopyOrdered By: Risa Gatica on 05-25-2023 Epithelial cells.squamous LM Ql (Urine sed) 0-5 SEEN /hpf 5-10 [facility] Thin prep Papanicolaou smear with manual screeningOrdered By: Risa Gatica on 05-25-2023 Thin prep Papanicolaou smear with manual screening 16 5-15 [facility] Thin prep Papanicolaou smear with manual screening 64 U/L 15-37 [facility] Urine blood detectionOrdered By: Risa Gatica on 05-25-2023 RBC Ql (U) 10 /ul Negative [facility] RBC Ql (U) 0-5 SEEN /hpf 0-5 [facility] Urine clarityOrdered By: Giselle Gatica on 05-25-2023 Clarity (U) Clear Clear [facility] Urine color determinationOrd ered By: Risa Gatica on 05-25-2023 Color (U) Yellow Yellow [facility] Urine glucose detectionOrder ed By: Risa Gatica on 05-25-2023 Glucose Ql (U) 1000 mg/dl Normal [facility] Urine leukocyte esterase det ection by dipstickOrdered By: Risa Gatica on 05-25-2023 Leukocyte esterase Test strip Ql (U) Negative Negative [facility] Urine pHOrdered By: Risa Gatica on 05-25-2023 pH (U) 5.0 [pH] 5.0 - 8.0 [facility] Urine sediment bacteria coun t by microscopy (number/high power field)Ordered By: Risa Gatica on 05-25-2023 Bacteria LM.HPF (Urine sed) [#/Area] RARE /hpf None Seen [facility] Urine specific gravity measu rementOrdered By: Risa Gatica on 05-25-2023 Specific gravity (U) [Rel density] 1.025 1.002-1.030 [facility] Urobilinogen Auto test strip Ql (U)Ordered By: Risa Gatica on 05-25-2023 Urobilinogen Ql (U) Normal mg/dl Normal [facility] Whole blood hemoglobin A1c/t otal hemoglobin ratio (mass fraction)Ordered By: David Miramontes on 05-25-2023 HbA1c (Bld) [Mass fraction] 8.3 % 3.8-5.6 [facility] Comment on above: Normal < 5.7 % Predi abetic 5.7 - 6.4 % Diabetic >or= 6.5 % Please note range changes. Absolute lymphocyte countOrd ered By: Efrem Lock on 05-23-2023 Lymphocytes Auto (Unsp spec) [#/Vol] 1.42 10*3/uL 0.83-4.51 [facility] Basophil percentageOrdered B y: Efrem Lock on 05-23-2023 Basophils/100 WBC (Bld) 0.7 % 0-1 [facility] Chloride [Moles/Vol] 103 mmol/L 98-107 [facility] Eosinophils/100 WBC (Bld) 0.1 % 0-5 [facility] Glucose [Mass/Vol] 432 mg/dL 74-106 [facility] Comment on above: Glucose result great er than or equal to 200 mg/dLsuggests DIABETES MELLITUS per A.D.A. criteria. Neutrophils (Bld) [#/Vol] 9.9 10*3/uL 2.0-7.7 [facility] Neutrophils/100 WBC (Bld) 81.5 % 47-70 [facility] Potassium [Moles/Vol] 4.6 mmol/L 3.5-5.1 [facility] Comment on above: Moderate Hemolysis, Result may be falsely increased. Sodium [Moles/Vol] 137 mmol/L 136-145 [facility] WBC (Bld) [#/Vol] 12.1 10*3/uL 4.4-11.0 [facility] Blood erythrocytes count (nu mber/volume)Ordered By: Efrem Lock on 05-23-2023 RBC (Bld) [#/Vol] 4.88 10*6/uL 4.2-5.4 [facility] Blood hemoglobin measurement (mass/volume)Ordered By: Efrem Lock on 05-23-2023 Hemoglobin (Bld) [Mass/Vol] 15.5 g/dL 12.0-15.0 [facility] Blood lymphocytes/100 leukoc ytesOrdered By: Efrem Lock on 05-23-2023 Lymphocytes/100 WBC (Bld) 11.8 % 19-41 [facility] Blood monocytes/100 leukocyt esOrdered By: Efrem Lock on 05-23-2023 Monocytes/100 WBC (Bld) 5.5 % 0-10 [facility] Blood platelet mean volumeOr dered By: Efrem Lock on 05-23-2023 Platelet mean volume (Bld) [Entitic vol] 9.5 fL 6.2-12.0 [facility] Determination of erythrocyte mean corpuscular volume (MCV)Ordered By: Efrem Lock on 05-23-2023 MCV (RBC) [Entitic vol] 96.9 fL 81-99 [facility] Glucose Glucometer (dC) [M ass/Vol]Ordered By: Efrem Lock on 05-23-2023 Glucose [Mass/Vol] 451 mg/dL 74-106 [facility] Comment on above: Orders FollowedMA NAGEMENT OF PATIENT CARE PER NURSING PROTOCOL HCO3 (BldA) [Moles/Vol]Order ed By: Efrem Lock on 05-23-2023 HCO3 (Bld) [Moles/Vol] 19 mmol/L 22-26 [facility] Hematocrit Auto (Bld) [Volum e fraction]Ordered By: Efrem Lock on 05-23-2023 Hematocrit (Bld) [Volume fraction] 47.3 % 37-47 [facility] Laboratory - Chemistry and C hemistry - challengeOrdered By: Efrem Lock on 05-23-2023 CO2 [Moles/Vol] 20 mmol/L 23-33 [facility] CO2 [Moles/Vol] 20.0 mmol/L 21.0-32.0 [facility] Urea nitrogen/Creatinine [Mass ratio] 9.1 mg/mg 10-20 [facility] Laboratory - Hematology and Cell countsOrdered By: Efrem Lock on 05-23-2023 Erythrocyte distribution width (RBC) [Entitic vol] 45.6 fL 35.1-43.9 [facility] Erythrocyte distribution width (RBC) [Ratio] 12.9 % 11.6-14.6 [facility] Immature granulocytes/100 WBC (Bld) 0.400 % 0.0-0.9 [facility] Comment on above: IG% - Immature Granu locytes (promyelocytes, myelocytes and metamyelocytes) > 1% indicates that a LEFT SHIFT is Present. MCH (RBC) [Entitic mass] 31.8 pg 27.0-32.0 [facility] Nucleated RBC/100 WBC (Bld) [Ratio] 0 % 0-5 [facility] MCHC Auto (RBC) [Mass/Vol]Or dered By: Efrem Lock on 05-23-2023 MCHC (RBC) [Mass/Vol] 32.8 g/dL 32-36 [facility] No Panel InformationOrdered By: Efrem Lock on 05-23-2023 Bed Mix Venous Bld PCO2 at Pat Temp 36.8 mmHg 41-51 [facility] Blood Gas Sample Site Not entered [facility] Blood Gas Specimen Type BETHANY [facility] Oxygen Delivery Device Room Air [facility] Venous Blood Base Excess -7 mmol/L -1.0-3.5 [facility] Estimated Creatinine Clearance Calc 68.61 ml/min [facility] Estimated GFR (MDRD) Amer 95 mL/min >60 [facility] Comment on above: GFR Calc Estimated GFR (MDRD) Non-Af Amer 79 mL/min >60 [facility] Comment on above: Non- GFR Calc Ethyl Alcohol Level 376.0 mg/dL [facility] Comment on above: Critical Result(s) C alled at: 02:34:01 05/23/2023 by: CHRISTINE Dominguez RN ER. Results read back by same.The serum:whole blood ethanol ratio is approximately 1.14and varies slightly with hematocrit. Medical Alcohol reference interval and critical value innon-tolerant individuals; 50 - 100 Impairment 100 Intoxication 100 - 250 Severe Poisoning 250 - 400 Deep/possible fatal coma Troponin I High Sensitivity 5 pg/mL 3.0-54.0 [facility] Comment on above: Please Note: [place] t Units and Gender Specific Reference Ranges. For more information see Policy Stat Procedure Saline High Sensitivity Troponin (TNIH) and attachments. PO2 venousOrdered By: Efrem Lock on 05-23-2023 Oxygen (BldV) [Partial pressure] 58 mm[Hg] 25-40 [facility] Platelets bldOrdered By: David Lock on 05-23-2023 Platelets (Bld) [#/Vol] 317 10*3/uL 150-450 [facility] Serum or plasma acetone xin urement (mass/volume)Ordered By: Efrem Lock on 05-23-2023 Acetone [Mass/Vol] SMALL NEG [facility] Serum or plasma calcium xin urement (mass/volume)Ordered By: Efrem Lock on 05-23-2023 Calcium [Mass/Vol] 9.5 mg/dL 8.5-10.1 [facility] Serum or plasma creatinine m easurement (mass/volume)Ordered By: Efrem Lock on 05-23-2023 Creatinine [Mass/Vol] 0.88 mg/dL 0.55-1.02 [facility] Comment on above: The validity of the calculated GFR & GFRAA in patients over 70 years has not been determined. Clinical correlation is essential. Serum or plasma urea nitroge n measurement (mass/volume)Ordered By: Efrem Lock on 05-23-2023 Urea nitrogen [Mass/Vol] 8 mg/dL 7-18 [facility] Thin prep Papanicolaou smear with manual screeningOrdered By: Efrem Lock on 05-23-2023 Thin prep Papanicolaou smear with manual screening 14 -15 [facility] Vital signsOrdered By: Alphonso Lock on 05-23-2023 Oxygen saturation in Blood 88 % 50-70 [facility] pH measurementOrdered By: Fifi Lock on 05-23-2023 pH (Unsp spec) 7.33 [pH] 7.32-7.42 [facility] Absolute lymphocyte counton 02-03-2022 Lymphocytes Auto (Unsp spec) [#/Vol] 2.05 10*3/uL 0.83-4.51 [facility] Work Phone: Basophil percentageon 2021 Chloride [Moles/Vol] 107 mmol/L 98-107 [facility]: Glucose [Mass/Vol] 350 mg/dL 74-106 [facility] Work Phone: Comment on above: Glucose result great er than or equal to 200 mg/dLsuggests DIABETES MELLITUS per A.D.A. criteria. Potassium [Moles/Vol] 4.2 mmol/L 3.5-5.1 [facility] Work Phone: Sodium [Moles/Vol] 135 mmol/L 136-145 [facility] Work Phone: Basophils/100 WBC (Bld) 0.6 % 0-1 [facility] Work Phone: Eosinophils/100 WBC (Bld) 0.1 % 0-5 [facility] Work Phone: Neutrophils (Bld) [#/Vol] 6.1 10*3/uL 2.0-7.7 [facility] Work Phone: Neutrophils/100 WBC (Bld) 67.2 % 47-70 [facility] Work Phone: WBC (Bld) [#/Vol] 9.0 10*3/uL 4.4-11.0 [facility] Work Phone: Blood erythrocytes count (nu mber/volume)on 02-03-2022 RBC (Bld) [#/Vol] 3.83 10*6/uL 4.2-5.4 [facility] Work Phone: Blood hemoglobin measurement (mass/volume)on 02-03-2022 Hemoglobin (Bld) [Mass/Vol] 11.8 g/dL 12.0-15.0 [facility] Work Phone: Blood lymphocytes/100 leukoc yteson 02-03-2022 Lymphocytes/100 WBC (Bld) 22.7 % 19-41 [facility] Work Phone: Blood monocytes/100 leukocyt eson 02-03-2022 Monocytes/100 WBC (Bld) 9.0 % 0-10 [facility] Work Phone: Blood platelet mean volumeon 02-03-2022 Platelet mean volume (Bld) [Entitic vol] 9.5 fL 6.2-12.0 [facility] Work Phone: Determination of erythrocyte mean corpuscular volume (MCV)on 02-03-2022 MCV (RBC) [Entitic vol] 94.0 fL 81-99 [facility] Work Phone: Glucose Glucometer (BldC) [M ass/Vol]on 02-03-2022 Glucose [Mass/Vol] 279 mg/dL 74-106 [facility] Work Phone: Comment on above: MANAGEMENT OF PATIEN T CARE PER NURSING PROTOCOL Hematocrit Auto (Bld) [Volum e fraction]on 02-03-2022 Hematocrit (Bld) [Volume fraction] 36.0 % 37-47 [facility] Work Phone: Laboratory - Chemistry and C hemistry - challengeon 02-03-2022 CO2 [Moles/Vol] 21.0 mmol/L 21.0-32.0 [facility] Work Phone: Urea nitrogen/Creatinine [Mass ratio] 12.9 mg/mg 10-20 [facility] Work Phone: Laboratory - Hematology and Cell countson 02-03-2022 Erythrocyte distribution width (RBC) [Entitic vol] 49.1 fL 35.1-43.9 [facility] Work Phone: [phone] Erythrocyte distribution width (RBC) [Ratio] 14.2 % 11.6-14.6 [facility] Work Phone: Immature granulocytes/100 WBC (Bld) 0.400 % 0.0-0.9 [facility] Work Phone: Comment on above: IG% - Immature Granu locytes (promyelocytes, myelocytes and metamyelocytes) > 1% indicates that a LEFT SHIFT is Present. MCH (RBC) [Entitic mass] 30.8 pg 27.0-32.0 [facility] Work Phone: Nucleated RBC/100 WBC (Bld) [Ratio] 0 % 0-5 [facility] Work Phone: [phone] MCHC Auto (RBC) [Mass/Vol]on 02-03-2022 MCHC (RBC) [Mass/Vol] 32.8 g/dL 32-36 [facility] Work Phone: Comment on above: Delta: 31.0 on 02/02 No Panel Informationon 02-03 Estimated Creatinine Clearance Calc 65.53 ml/min [facility] Work Phone: Estimated GFR (MDRD) Amer 90 mL/min >60 [facility] Work Phone: Comment on above: GFR Calc Estimated GFR (MDRD) Non-Af Amer 74 mL/min >60 [facility] Work Phone: Comment on above: Non- GFR Calc Platelets bldon 02-03-2022 Platelets (Bld) [#/Vol] 278 10*3/uL 150-450 [facility] Work Phone: [phone] Serum or plasma calcium xin urement (mass/volume)on 02-03-2022 Calcium [Mass/Vol] 7.7 mg/dL 8.5-10.1 [facility] Work Phone: [phone] Serum or plasma creatinine m easurement (mass/volume)on 02-03-2022 Creatinine [Mass/Vol] 0.93 mg/dL 0.55-1.02 [facility] Work Phone: Comment on above: The validity of the calculated GFR & GFRAA in patients over 70 years has not been determined. Clinical correlation is essential. Serum or plasma urea nitroge n measurement (mass/volume)on 02-03-2022 Urea nitrogen [Mass/Vol] 12 mg/dL 7-18 [facility] Work Phone: Thin prep Papanicolaou smear with manual screeningon 02-03-2022 Thin prep Papanicolaou smear with manual screening 7 5-15 [facility] Work Phone: Whole blood hemoglobin A1c/t otal hemoglobin ratio (mass fraction)on 02-03-2022 HbA1c (Bld) [Mass fraction] 10.7 % 3.8-5.6 [facility] Work Phone: Comment on above: Normal < 5.7 % Predi abetic 5.7 - 6.4 % Diabetic >or= 6.5 % Please note range changes. Assessment of wrist artery p atency prior to arterial punctureon 02-02-2022 Arterial patency Wrist artery --pre arterial puncture Positive [facility] Work Phone: Base excesson 02-02-2022 Base excess Calc (BldV) [Moles/Vol] -23 mmol/L -2-2 [facility] Work Phone: Basophil percentageon 2021 Basophil percentage 6.1 mmol/L 22-26 [facility] Work Phone: Basophils/100 WBC (Bld) 72 % 95-99 [facility] Work Phone: Basophil percentage 5.4 mg/dL 2.5-4.9 [facility] Work Phone: Bilirubin [Mass/Vol] 0.60 mg/dL 0.20-1.00 [facility] Work Phone: Comment on above: For patients on eltr ombopag therapy, use of Dimension Saline TBIL is not recommended. Protein [Mass/Vol] 8.9 g/dL 6.4-8.2 [facility] Work Phone: Basophil percentage 0-5 SEEN /hpf 0-5 [facility] Work Phone: Bilirubin Test strip Ql (U)o n 02-02-2022 Bilirubin Ql (U) Negative Negative [facility] Work Phone: CO2 (BldA) [Partial pressure ]on 02-02-2022 CO2 (Bld) [Partial pressure] 18.4 mm[Hg] 35-45 [facility] Work Phone: [phone] HCO3 (BldA) [Moles/Vol]on HCO3 (Bld) [Moles/Vol] 5 mmol/L 22-26 [facility] Work Phone: [phone] Ketones Test strip Ql (U)on 02-02-2022 Ketones Ql (U) 150 mg/dl Negative [facility] Work Phone: [phone] Comment on above: CRITICAL VALUE *HCRI TICAL VALUE VERIFIED. CALLED TO DENZEL COUGHLIN02/02/22 Alexus Galan.RESULTS READ BACK BY SAME . Laboratory - Chemistry and C hemistry - challengeon 02-02-2022 CO2 [Moles/Vol] 5 mmol/L 23-33 [facility] Work Phone: ALP [Catalytic activity/Vol] 122 U/L 45-117 [facility] Work Phone: ALT [Catalytic activity/Vol] 54 U/L 13-56 [facility] Work Phone: [phone] Globulin (S) [Mass/Vol] 4.7 g/dL 2.2-4.2 [facility] Work Phone: [phone] Magnesium [Mass/Vol] 2.3 mg/dL 1.6-2.6 [facility] Work Phone: Mucus LM Ql (Urine sed)on Mucus Ql (Urine sed) 0 SEEN /hpf [facility] Work Phone: [phone] Nitrite Test strip Ql (U)on 02-02-2022 Nitrite Ql (U) Negative Negative [facility] Work Phone: No Panel Informationon 02-02 Bld Gas Crit Called To/Read Back By Yes [facility] Work Phone: Blood Gas Sample Site L Radial [facility] Work Phone: Blood Gas Specimen Type ART [facility] Work Phone: [phone] Blood Gas Total CO2 7 mmol/L [facility] Work Phone: Bed Mix Venous Bld PCO2 at Pat Temp 18.7 mmHg 41-51 [facility] Work Phone: [phone] Blood Gas Notified Time 19:40:39 [facility] Work Phone: [phone] Blood Gas Notified Whom Reodica W [facility] Work Phone: [phone] Oxygen Delivery Device Room Air [facility] Work Phone: [phone] Venous Blood Base Excess -26 mmol/L -1.0-3.5 [facility] Work Phone: Oxygen (BldA) [Partial press ure]on 02-02-2022 Oxygen (Bld) [Partial pressure] 48 mmHG 75-100 [facility] Work Phone: PO2 venouson 02-02-2022 Oxygen (BldV) [Partial pressure] 69 mm[Hg] 25-40 [facility] Work Phone: Protein Test strip Ql (U)on 02-02-2022 Protein Ql (U) 100 mg/dl Negative [facility] Work Phone: Serum or plasma acetone xin urement (mass/volume)on 02-02-2022 Acetone [Mass/Vol] MODERATE NEG [facility] Work Phone: [phone] Serum or plasma albumin xin urement (mass/volume)on 02-02-2022 Albumin [Mass/Vol] 4.2 g/dL 3.2-5.0 [facility] Work Phone: Serum or plasma albumin/glob ulin mass ratioon 02-02-2022 Albumin/Globulin [Mass ratio] 0.9 {ratio} 0.9-2.4 [facility] Work Phone: Squamous epithelial cells de tection in urine sediment by light microscopyon 02-02-2022 Epithelial cells.squamous LM Ql (Urine sed) 0-5 SEEN /hpf 5-10 [facility] Work Phone: Thin prep Papanicolaou smear with manual screeningon 02-02-2022 Thin prep Papanicolaou smear with manual screening 37 U/L 15-37 [facility] Work Phone: Urine blood detectionon 07-2 RBC Ql (U) 10 /ul Negative [facility] Work Phone: RBC Ql (U) 0-5 SEEN /hpf 0-5 [facility] Work Phone: Urine clarityon 02-02-2022 Clarity (U) Clear Clear [facility] Work Phone: Urine color determinationon 02-02-2022 Color (U) Yellow Yellow [facility] Work Phone: Urine glucose detectionon Glucose Ql (U) 1000 mg/dl Normal [facility] Work Phone: Urine leukocyte esterase det ection by dipstickon 02-02-2022 Leukocyte esterase Test strip Ql (U) Negative Negative [facility] Work Phone: Urine pHon 02-02-2022 pH (U) 5.0 [pH] 5.0 - 8.0 [facility] Work Phone: Urine sediment bacteria coun t by microscopy (number/high power field)on 02-02-2022 Bacteria LM.HPF (Urine sed) [#/Area] 1 /[HPF] None Seen [facility] Work Phone: Urine specific gravity measu rementon 02-02-2022 Specific gravity (U) [Rel density] 1.030 1.002-1.030 [facility] Work Phone: Urobilinogen Auto test strip Ql (U)on 02-02-2022 Urobilinogen Ql (U) Normal mg/dl Normal [facility] Work Phone: Vital signson 02-02-2022 Oxygen saturation in Blood 83 % 50-70 [facility] Work Phone: pH measurementon 02-02-2022 pH (Unsp spec) 7.13 [pH] 7.35-7.45 [facility] Work Phone: pH (Unsp spec) 7.01 [pH] 7.32-7.42 [facility] Work Phone: Vital Signs Date Time Vital Sign Value Performing Clinician Ahsan brown 01-13-2025 11:00-0400 Diastolic blood pressure 79 mm[Hg] Dr. Meena Flowers DO Work Phone: [facility] 01-13-2025 11:00-0400 Heart rate 65 /min Dr. Meena Flowers DO Work Phone: [facility] 01-13-2025 11:00-0400 Respiratory rate 23 /min Dr. Meena Flowers DO Work Phone: [facility] 01-13-2025 11:00-0400 SaO2% (BldA) [Mass fraction] 100 % Dr. Meena Flowers DO Work Phone: [facility] 01-13-2025 11:00-0400 Systolic blood pressure 126 mm[Hg] Dr. Meena Flowers DO Work Phone: [facility] 01-13-2025 08:00-0400 Body temperature 97.8 [degF] Dr. Meena Flowers DO Work Phone: [facility] 01-13-2025 05:44-0400 Body mass index (BMI) [Ratio] 28.9 kg/m2 Dr. Meena Flowers DO Work Phone: [facility] 01-13-2025 05:44-0400 Body weight 69.[address] Meena Flowers DO Work Phone: [facility] 01-12-2025 12:14-0400 Body height 154.[address] Meena Flowers DO Work Phone: [facility] 01-12-2025 00:00-0400 Diastolic blood pressure 84 mm[Hg] Dr. Meena Flowers DO Work Phone: [facility] 01-12-2025 00:00-0400 Heart rate 115 /min Dr. Meena Flowers DO Work Phone: [facility] 01-12-2025 00:00-0400 Respiratory rate 22 /min Dr. Meena Flowers DO Work Phone: [facility] 01-12-2025 00:00-0400 Systolic blood pressure 124 mm[Hg] Dr. Meena Flowers DO Work Phone: [facility] 01-11-2025 22:07-0400 Body temperature 98 [degF] Dr. Meena Flowers DO Work Phone: [facility] 01-11-2025 22:07-0400 SaO2% (BldA) [Mass fraction] 98 % Dr. Meena Flowers DO Work Phone: [facility] 01-11-2025 19:59-0400 Body height 154.[address] Meena Flowers DO Work Phone: [facility] 01-11-2025 19:59-0400 Body mass index (BMI) [Ratio] 28.1 kg/m2 Dr. Meena Flowers DO Work Phone: [facility] 01-11-2025 19:59-0400 Body weight 67.[address] Meena Flowers DO Work Phone: [facility] 09-28-2024 10:00-0400 Diastolic blood pressure 96 mm[Hg] Dr. Meena Flowers DO Work Phone: [facility] 09-28-2024 10:00-0400 Heart rate 98 /min Dr. Meena Flowers DO Work Phone: [facility] 09-28-2024 10:00-0400 Respiratory rate 18 /min Dr. Meena Flowers DO Work Phone: [facility] 09-28-2024 10:00-0400 SaO2% (BldA) [Mass fraction] 100 % Dr. Meena Flowers DO Work Phone: [facility] 09-28-2024 10:00-0400 Systolic blood pressure 150 mm[Hg] Dr. Meena Flowers DO Work Phone: [facility] 09-28-2024 08:00-0400 Body temperature 97.8 [degF] Dr. Meena Flowers DO Work Phone: [facility] 09-28-2024 05:44-0400 Body mass index (BMI) [Ratio] 29.3 kg/m2 Dr. Meena Flowers DO Work Phone: [facility] 09-28-2024 05:44-0400 Body weight 70.[address] Meena Flowers DO Work Phone: [facility] 09-26-2024 13:32-0400 Body height 154.[address] Meena Flowers DO Work Phone: [facility] 09-26-2024 12:19-0400 Body temperature 98.1 [degF] Dr. Meena Flowers DO Work Phone: [facility] 09-26-2024 12:19-0400 Diastolic blood pressure 78 mm[Hg] Dr. Meena Flowers DO Work Phone: [facility] 09-26-2024 12:19-0400 Heart rate 122 /min Dr. Meena Flowers DO Work Phone: [facility] 09-26-2024 12:19-0400 Respiratory rate 23 /min Dr. Meena Flowers DO Work Phone: [facility] 09-26-2024 12:19-0400 SaO2% (BldA) [Mass fraction] 98 % Dr. Meena Flowers DO Work Phone: [facility] 09-26-2024 12:19-0400 Systolic blood pressure 131 mm[Hg] Dr. Meena Flowers DO Work Phone: [facility] 09-26-2024 09:28-0400 Body height 154.[address] Meena Flowers DO Work Phone: [facility] 09-26-2024 09:28-0400 Body mass index (BMI) [Ratio] 28.5 kg/m2 Dr. Meena Flowers DO Work Phone: [facility] 09-26-2024 09:28-0400 Body weight 68.[address] Meena Flowers DO Work Phone: [facility] 09-24-2023 14:26-0400 Body temperature 97 [degF] [facility] 09-24-2023 14:26-0400 Diastolic blood pressure 85 mm[Hg] [facility] 09-24-2023 14:26-0400 Heart rate 79 /min [facility] 09-24-2023 14:26-0400 Respiratory rate 16 /min [facility] 09-24-2023 14:26-0400 SaO2% (BldA) [Mass fraction] 99 % [facility] 09-24-2023 14:26-0400 Systolic blood pressure 123 mm[Hg] [facility] 09-24-2023 12:26-0400 Body height 154.94 cm [facility] 09-24-2023 12:26-0400 Body mass index (BMI) [Ratio] 29.9 kg/m2 [facility] 09-24-2023 12:26-0400 Body weight 71.93 kg [facility] 06-05-2023 14:18-0500 Body temperature 98.2 [degF] Dr. Meena Flowers Work Phone: [facility] 06-05-2023 14:18-0500 Heart rate 72 /min Dr. Meena Flowers Work Phone: [facility] 06-05-2023 14:18-0500 Respiratory rate 14 /min Dr. Meena Flowers Work Phone: [facility] 06-05-2023 12:53-0500 Body mass index (BMI) [Ratio] 31.9 kg/m2 Dr. Meena Flowers Work Phone: [facility] 06-05-2023 12:53-0500 Body weight 76.[address] Meena Flowers Work Phone: [facility] 06-05-2023 12:35-0500 Body height 154.[address] Meena Flowers Work Phone: [facility] 06-05-2023 12:35-0500 Diastolic blood pressure 96 mm[Hg] Dr. Meena Flowers Work Phone: [facility] 06-05-2023 12:35-0500 SaO2% (BldA) [Mass fraction] 100 % Dr. Meena Flowers Work Phone: [facility] 06-05-2023 12:35-0500 Systolic blood pressure 139 mm[Hg] Dr. Meena Flowers Work Phone: [facility] 05-26-2023 12:00-0500 Body temperature 98 [degF] Dr. Meena Flowers Work Phone: [facility] 05-26-2023 12:00-0500 Diastolic blood pressure 96 mm[Hg] Dr. Meena Flowers Work Phone: [facility] 05-26-2023 12:00-0500 Heart rate 110 /min Dr. Meena Flowers Work Phone: [facility] 05-26-2023 12:00-0500 Respiratory rate 20 /min Dr. Meena Flowers Work Phone: [facility] 05-26-2023 12:00-0500 SaO2% (BldA) [Mass fraction] 98 % Dr. Meena Flowers Work Phone: [facility] 05-26-2023 12:00-0500 Systolic blood pressure 125 mm[Hg] Dr. Meena Flowers Work Phone: [facility] 05-26-2023 09:35-0500 Body height 154.[address] Meena Flowers Work Phone: [facility] 05-26-2023 09:35-0500 Body weight 75.[address] Meena Flowers Work Phone: [facility] 05-26-2023 05:20-0500 Body mass index (BMI) [Ratio] 31.5 kg/m2 Dr. Meena Flowers Work Phone: [facility] 05-25-2023 20:23-0500 Diastolic blood pressure 81 mm[Hg] [facility] 05-25-2023 20:23-0500 Heart rate 92 /min [facility] 05-25-2023 20:23-0500 Respiratory rate 14 /min [facility] 05-25-2023 20:23-0500 SaO2% (BldA) [Mass fraction] 98 % [facility] 05-25-2023 20:23-0500 Systolic blood pressure 124 mm[Hg] [facility] 05-25-2023 16:43-0500 Body height 154.94 cm [facility] 05-25-2023 16:43-0500 Body mass index (BMI) [Ratio] 31.6 kg/m2 [facility] 05-25-2023 16:43-0500 Body temperature 97.3 [degF] [facility] 05-25-2023 16:43-0500 Body weight 75.97 kg [facility] 05-23-2023 03:27-0500 Diastolic blood pressure 88 mm[Hg] [facility] 05-23-2023 03:27-0500 Heart rate 72 /min [facility] 05-23-2023 03:27-0500 Respiratory rate 16 /min [facility] 05-23-2023 03:27-0500 SaO2% (BldA) [Mass fraction] 98 % [facility] 05-23-2023 03:27-0500 Systolic blood pressure 139 mm[Hg] [facility] 05-23-2023 00:53-0500 Body height 154.94 cm [facility] 05-23-2023 00:53-0500 Body mass index (BMI) [Ratio] 31.9 kg/m2 [facility] 05-23-2023 00:53-0500 Body temperature 97.1 [degF] [facility] 05-23-2023 00:53-0500 Body weight 76.7 kg [facility] 02-03-2022 15:32-0400 Body temperature 96.3 [degF] [facility] Work Phone: 02-03-2022 15:32-0400 Diastolic blood pressure 77 mm[Hg] [facility] Work Phone: 02-03-2022 15:32-0400 Heart rate 95 /min [facility] Work Phone: 02-03-2022 15:32-0400 Respiratory rate 17 /min [facility] Work Phone: 02-03-2022 15:32-0400 SaO2% (BldA) [Mass fraction] 99 % [facility] Work Phone: 02-03-2022 15:32-0400 Systolic blood pressure 115 mm[Hg] [facility] Work Phone: 02-03-2022 09:13-0400 Body height 154.94 cm [facility] Work Phone: 02-03-2022 09:13-0400 Body weight 72.7 kg [facility] Work Phone: 02-02-2022 21:05-0400 Body mass index (BMI) [Ratio] 29.5 kg/m2 [facility] Work Phone: Encounters Encounter Date Encounter Type Care Provider Facility [facility]: [facility] [place] Start: 01-13-2025 Non-patient / Non-visit Dr. Dian Galan MD -[facility] Work Phone: Start: 01-12-2025 Non-patient / Non-visit Dr. Dian Galan MD -[facility] Work Phone: Start: 01-11-2025 ambulatory Andrew Santana ty:[facility] Start: 01-11-2025 End: 01-13-2025 Evaluation and management of inpatient Dr. Andrew Cruz DO -Intensive Care Unit Work Phone: Start: 09-28-2024 Non-patient / Non-visit Dr. Dian Galan MD -[facility] Work Phone: Start: 09-27-2024 Non-patient / Non-visit Dr. Reny Julien MD -[facility] Work Phone: Start: 09-26-2024 ambulatory Maggie Reed [place] Start: 09-26-2024 End: 09-28-2024 Evaluation and management of inpatient Dr. Maggie Reed MD -Intensive Care Unit Work Phone: Start: 04-04-2024 ambulatory Bryce Julien Fac ility:[facility] Start: 04-04-2024 End: 04-05-2024 Evaluation and management of inpatient Bryce Julien Facility:[facility] Start: 09-24-2023 End: 09-24-2023 Emergency department patient visit [facility] Work Phone: Start: 06-05-2023 End: 06-05-2023 Emergency department patient visit Dr. Meena Flowers Work Phone: [facility] Work Phone: Start: 05-26-2023 Non-patient / Non-visit Dr. Letitia Flowers Work Phone: [facility] Work Phone: Start: 05-25-2023 Non-patient / Non-visit Dr. Letitia Flowers Work Phone: [facility] Work Phone: Start: 05-25-2023 End: 05-26-2023 [facility] Start: 05-23-2023 Registered Referred [facility] Work Phone: Start: 05-23-2023 End: 05-23-2023 Emergency department patient visit [facility] Work Phone: Start: 02-03-2022 Non-patient / Non-visit Meena [facility] Start: 02-02-2022 Non-patient / Non-visit [facility] Start: 02-02-2022 End: 02-03-2022 Evaluation and management of inpatient Meena [facility] Procedures Date Procedure Procedure Detail Performing Clinician Start: 01-13-2025 Serum inorganic phos phate measurement Dr. Meena Flowers DO Work Phone: Start: 01-13-[address] Meena Flowers DO Work Phone: Start: 01-12-2025 Carbon dioxide measurement, partial pressure Dr. Meena Flowers DO Work Phone: Start: 01-12-2025 Gases blood o2 satur ation only direct xin Dr. Meena Flowers DO Work Phone: Start: 01-12-2025 Measurement of parti al pressure of oxygen in blood Dr. Meena Flowers DO Work Phone: Start: 01-12-[address] Meena Flowers DO Work Phone: Start: 01-11-2025 Osmolality measureme nt, serum Dr. Meena Flowers DO Work Phone: Start: 01-11-[address] Meena Flowers DO Work Phone: Start: 01-11-2025 Plain chest X-ray Dr. Andreas Flowers DO Work Phone: Start: 01-11-2025 Urnls dip stick/tabl et reagent auto microscopy Dr. Meena Flowers DO Work Phone: Start: 09-28-[address] Meena Flowers DO Work Phone: Start: 09-27-[address] Meena Flowers DO Work Phone: Start: 09-26-2024 Plain chest X-ray Dr. Andreas Flowers DO Work Phone: Start: 09-26-2024 Urnls dip stick/tabl et reagent auto microscopy Dr. Meena Flowers DO Work Phone: Start: 05-25-2023 Plain chest X-ray Start: 05-23-2023 CT cervical spine wi thout contrast Start: 05-23-2023 CT of head without contrast Start: 05-23-2023 Plain chest X-ray Start: 05-23-2023 Radiologic examinati on of knee Plan of Treatment Date Care Activity Detail Author Start: 01-15-2025 Serum inorganic phos phate measurement [facility] Start: 01-14-2025 Serum inorganic phos phate measurement [facility] Start: 01-13-2025 Patient discharge [facility] Start: 01-13-2025 [facility] Start: 01-12-2025 Patient referral to dietitian [facility] Start: 01-12-2025 Referral to service [facility] Start: 01-12-2025 Application of inter mittent pneumatic compression device [facility] Start: 01-12-2025 Following clinical p athway protocol [facility] Start: 01-12-2025 Following clinical p athway protocol [facility] Start: 01-12-2025 Lab findings surveillance [facility] Start: 01-12-2025 Notification of physician [facility] Start: 01-12-2025 Patient education [facility] Start: 01-12-2025 Vital signs measurements [facility] Start: 01-12-2025 End: 01-12-2025 [facility] Start: 01-11-2025 Osmolality measureme nt, serum [facility] Start: 01-11-2025 Admission procedure [facility] Start: 01-11-2025 Hospital admission, emergency, from emergency room, medical nature [facility] Start: 09-29-2024 [facility] Start: 09-28-2024 Patient discharge [facility] Start: 09-28-2024 End: 09-28-2024 [facility] Start: 09-28-2024 Care regimes management [facility] Start: 09-28-2024 Notification of physician [facility] Start: 09-28-2024 End: 09-28-2024 [facility] Start: 09-28-2024 Care regimes management [facility] Start: 09-28-2024 Notification of physician [facility] Start: 09-27-2024 Urine culture Urine Culture [facility] Start: 09-27-2024 [facility] Start: 09-27-2024 End: 09-27-2024 [facility] Start: 09-26-2024 [facility] Start: 09-26-2024 Assessment of risk o f venous thromboembolism [facility] Start: 09-26-2024 Continuous pulse oximetry [facility] Start: 09-26-2024 End: 09-26-2024 Following clinical pathway protocol [facility] Start: 09-26-2024 Insertion of cathete r into peripheral vein [facility] Start: 09-26-2024 Lab findings surveillance [facility] Start: 09-26-2024 Measuring intake and output [facility] Start: 09-26-2024 Notification of physician [facility] Start: 09-26-2024 Patient education [facility] Start: 09-26-2024 Patient referral to dietitian [facility] Start: 09-26-2024 Providing care accor ding to standard [facility] Start: 09-26-2024 Referral to occupati onal therapist [facility] Start: 09-26-2024 Referral to service [facility] Start: 09-26-2024 Vital signs measurements [facility] Start: 09-26-2024 [facility] Start: 09-26-2024 Hospital admission, emergency, from emergency room, medical nature [facility] Start: 09-26-2024 Verification routine [facility] Start: 09-26-2024 Admission procedure [facility] Start: 09-26-2024 End: 09-27-2024 [facility] Start: 09-24-2023 Blood chemistry [facility] Start: 09-24-2023 [facility] Start: 06-05-2023 [facility] Start: 06-05-2023 Simple repair scalp/neck/ax/genit/trunk 2.5cm/< RPR S/N/AX/GEN/TRNK 2.5CM/< [facility] Start: 05-26-2023 Blood chemistry [facility] Start: 05-26-2023 Blood chemistry [facility] Start: 05-26-2023 Patient discharge [facility] Start: 05-26-2023 Blood chemistry [facility] Start: 05-26-2023 Care regimes management [facility] Start: 05-26-2023 Notification of physician [facility] Start: 05-26-2023 [facility] Start: 05-26-2023 Blood chemistry [facility] Start: 05-26-2023 [facility] Start: 05-26-2023 Blood chemistry [facility] Start: 05-26-2023 [facility] Start: 05-26-2023 Blood chemistry [facility] Start: 05-25-2023 Assessment of risk o f venous thromboembolism [facility] Start: 05-25-2023 Continuous pulse oximetry [facility] Start: 05-25-2023 End: 05-25-2023 Following clinical pathway protocol [facility] Start: 05-25-2023 Insertion of cathete r into peripheral vein [facility] Start: 05-25-2023 Lab findings surveillance [facility] Start: 05-25-2023 Measuring intake and output [facility] Start: 05-25-2023 Notification of physician [facility] Start: 05-25-2023 Oxygen therapy [facility] Start: 05-25-2023 Patient education [facility] Start: 05-25-2023 Patient referral to dietitian [facility] Start: 05-25-2023 Providing care accor ding to standard [facility] Start: 05-25-2023 Vital signs measurements [facility] Start: 05-25-2023 [facility] Start: 05-25-2023 Blood chemistry [facility] Start: 05-25-2023 Verification routine [facility] Start: 05-25-2023 Admission procedure [facility] Start: 05-23-2023 [facility] Start: 05-23-2023 Blood chemistry [facility] Start: 05-23-2023 End: 05-23-2023 [facility] Start: 02-03-2022 Patient discharge [facility] Work Phone: Start: 02-02-2022 Application of inter mittent pneumatic compression device [facility] Work Phone: Start: 02-02-2022 Assessment of risk o f venous thromboembolism [facility] Work Phone: Start: 02-02-2022 Consultation [facility] Work Phone: Start: 02-02-2022 Continuous pulse oximetry [facility] Work Phone: Start: 02-02-2022 End: 02-02-2022 Following clinical pathway protocol [facility] Work Phone: Start: 02-02-2022 Incentive spirometry [facility] Work Phone: Start: 02-02-2022 Inhalation therapy procedure [facility] Work Phone: Start: 02-02-2022 Insertion of cathete r into peripheral vein [facility] Work Phone: Start: 02-02-2022 Introduction of urin mar catheter [facility] Work Phone: Start: 02-02-2022 Lab findings surveillance [facility] Work Phone: Start: 02-02-2022 Measuring intake and output [facility] Work Phone: Start: 02-02-2022 Notification of physician [facility] Work Phone: Start: 02-02-2022 Oxygen therapy [facility] Work Phone: Start: 02-02-2022 Patient education [facility] Work Phone: Start: 02-02-2022 Patient referral to dietitian [facility] Work Phone: Start: 02-02-2022 Providing care accor ding to standard [facility] Work Phone: Start: 02-02-2022 Provision of activit y privileges [facility] Work Phone: Start: 02-02-2022 Referral to service [facility] Work Phone: Start: 02-02-2022 Tobacco use cessatio n education [facility] Work Phone: Start: 02-02-2022 Vital signs measurements [facility] Work Phone: Start: 02-02-2022 [facility] Work Phone: Start: 02-02-2022 Admission procedure [facility] Work Phone: Start: 02-02-2022 Patient referral to dietitian [facility] Work Phone: Anion gap in Serum or Plasma [facility] Anion gap in Serum or Plasma [facility] Anion gap measurement [facility] Anion gap measurement [facility] Anion gap measurement [facility] Anion gap measurement [facility] Anion gap measurement [facility] Anion gap measurement [facility] Anion gap measurement [facility] Anion gap measurement [facility] Beta hydroxybutyrate [Mass/volume] in Serum or Plasma [facility] BUN/Creatinine ratio [facility] BUN/Creatinine ratio [facility] BUN/Creatinine ratio [facility] BUN/Creatinine ratio [facility] BUN/Creatinine ratio [facility] BUN/Creatinine ratio [facility] BUN/Creatinine ratio [facility] BUN/Creatinine ratio [facility] BUN/Creatinine ratio [facility] BUN/Creatinine ratio [facility] Calcium [Mass/volume ] in Serum or Plasma [facility] Calcium [Mass/volume ] in Serum or Plasma [facility] Calcium [Mass/volume ] in Serum or Plasma [facility] Calcium [Mass/volume ] in Serum or Plasma [facility] Calcium [Mass/volume ] in Serum or Plasma [facility] Calcium [Mass/volume ] in Serum or Plasma [facility] Calcium [Mass/volume ] in Serum or Plasma [facility] Calcium [Mass/volume ] in Serum or Plasma [facility] Calcium [Mass/volume ] in Serum or Plasma [facility] Calcium [Mass/volume ] in Serum or Plasma [facility] Carbon dioxide, tota l [Moles/volume] in Central venous blood [facility] Carbon dioxide, tota l [Moles/volume] in Central venous blood [facility] Carbon dioxide, tota l [Moles/volume] in Serum or Plasma [facility] Carbon dioxide, tota l [Moles/volume] in Serum or Plasma [facility] Carbon dioxide, tota l [Moles/volume] in Serum or Plasma [facility] Carbon dioxide, tota l [Moles/volume] in Serum or Plasma [facility] Carbon dioxide, tota l [Moles/volume] in Serum or Plasma [facility] Carbon dioxide, tota l [Moles/volume] in Serum or Plasma [facility] Carbon dioxide, tota l [Moles/volume] in Serum or Plasma [facility] Carbon dioxide, tota l [Moles/volume] in Serum or Plasma [facility] Chloride [Moles/volu me] in Serum or Plasma [facility] Chloride [Moles/volu me] in Serum or Plasma [facility] Chloride [Moles/volu me] in Serum or Plasma [facility] Chloride [Moles/volu me] in Serum or Plasma [facility] Chloride [Moles/volu me] in Serum or Plasma [facility] Chloride [Moles/volu me] in Serum or Plasma [facility] Chloride [Moles/volu me] in Serum or Plasma [facility] Chloride [Moles/volu me] in Serum or Plasma [facility] Creatinine [Mass/vol ume] in Serum or Plasma [facility] Creatinine [Mass/vol ume] in Serum or Plasma [facility] Creatinine [Moles/vo lume] in Serum or Plasma [facility] Creatinine [Moles/vo lume] in Serum or Plasma [facility] Creatinine [Moles/vo lume] in Serum or Plasma [facility] Creatinine [Moles/vo lume] in Serum or Plasma [facility] Creatinine [Moles/vo lume] in Serum or Plasma [facility] Creatinine [Moles/vo lume] in Serum or Plasma [facility] Creatinine [Moles/vo lume] in Serum or Plasma [facility] Creatinine [Moles/vo lume] in Serum or Plasma [facility] Glucose [Mass/volume ] in Serum or Plasma [facility] Glucose [Mass/volume ] in Serum or Plasma [facility] Glucose [Mass/volume ] in Serum or Plasma [facility] Glucose [Mass/volume ] in Serum or Plasma [facility] Glucose [Mass/volume ] in Serum or Plasma [facility] Glucose [Mass/volume ] in Serum or Plasma [facility] Glucose [Mass/volume ] in Serum or Plasma [facility] Glucose [Mass/volume ] in Serum or Plasma [facility] Glucose [Mass/volume ] in Serum or Plasma [facility] Glucose [Mass/volume ] in Serum or Plasma [facility] Hematocrit [Volume F raction] of Blood [facility] Hemoglobin [Mass/vol ume] in Blood [facility] Hemoglobin A1c/Hemoglobin.total in Blood [facility] Leukocytes [#/volume ] in Blood [facility] Magnesium [Mass/volu me] in Serum or Plasma [facility] Mean corpuscular hem oglobin concentration determination [facility] Mean corpuscular hem oglobin determination [facility] Measurement of renal function [facility] Measurement of renal function [facility] Measurement of renal function [facility] Measurement of renal function [facility] Measurement of renal function [facility] Measurement of renal function [facility] Measurement of renal function [facility] Measurement of renal function [facility] Measurement of renal function [facility] Measurement of renal function [facility] Neutrophil count [facility] Neutrophil percent differential count [facility] Patient Education [facility] Work Phone: Patient referral [facility] Work Phone: Platelets [#/volume] in Blood [facility] Potassium [Moles/vol ume] in Serum or Plasma [facility] Potassium [Moles/vol ume] in Serum or Plasma [facility] Potassium [Moles/vol ume] in Serum or Plasma [facility] Potassium [Moles/vol ume] in Serum or Plasma [facility] Potassium [Moles/vol ume] in Serum or Plasma [facility] Potassium [Moles/vol ume] in Serum or Plasma [facility] Potassium [Moles/vol ume] in Serum or Plasma [facility] Potassium [Moles/vol ume] in Serum or Plasma [facility] Potassium measurement [facility] Potassium measurement [facility] Red blood cell count [facility] Red cell distributio n width determination [facility] Serum chloride measurement [facility] Serum chloride measurement [facility] Sodium [Moles/volume ] in Serum or Plasma [facility] Sodium [Moles/volume ] in Serum or Plasma [facility] Sodium [Moles/volume ] in Serum or Plasma [facility] Sodium [Moles/volume ] in Serum or Plasma [facility] Sodium [Moles/volume ] in Serum or Plasma [facility] Sodium [Moles/volume ] in Serum or Plasma [facility] Sodium [Moles/volume ] in Serum or Plasma [facility] Sodium [Moles/volume ] in Serum or Plasma [facility] Sodium measurement [facility] Sodium measurement [facility] Urea nitrogen [Mass/ volume] in Serum or Plasma [facility] Urea nitrogen [Mass/ volume] in Serum or Plasma [facility] Urea nitrogen [Mass/ volume] in Serum or Plasma [facility] Urea nitrogen [Mass/ volume] in Serum or Plasma [facility] Urea nitrogen [Mass/ volume] in Serum or Plasma [facility] Urea nitrogen [Mass/ volume] in Serum or Plasma [facility] Urea nitrogen [Mass/ volume] in Serum or Plasma [facility] Urea nitrogen [Mass/ volume] in Serum or Plasma [facility] Urea nitrogen [Mass/ volume] in Serum or Plasma [facility] Urea nitrogen [Mass/ volume] in Serum or Plasma [facility] Payers Date Payer Category Payer Self-pay [id number] 2014 Unknown [id number] Private Health Insurance [id number] Unknown [id number] 2.16.8 [id number] Unknown [id number] 2.16.8 [id number] Unknown [id number] 2.16.8 [id number] Unknown [id number] 2.16.8 [id number] Unknown [id number] 2.16.8 [id number] Unknown [id number] 2.16.8 [id number] Unknown [id number] 2.16.8 [id number] Unknown [id number] 2.16.8 [id number] Unknown [id number] 2.16.8 [id number] Unknown [id number] 2.16.8 [id number] Unknown [id number] 2.16.8 [id number] Unknown [id number] 2.16.8 [id number] Social History Date Type Detail Facility [facility] Work Phone: Start: 02-02-2022 End: 09-24-2023 Tobacco smoking status NHIS Unknown if ever smoked [facility] Start: 11-16-2020 Cigarettes [facility] Start: 1990 Sex Assigned At Female [facility] Start: 09-26-2024 End: 01-12-2025 Tobacco smoking status NHIS Current Light tobacco smoker [facility] Start: 09-26-2024 End: 09-28-2024 Sex Female (finding) [facility] NEGATED: Highlighted row [facility] NEGATED: Highlighted row Not [facility] Goals Date Patient Goal Desired Activity /State Functional Status Date Assessment Result Facility 01-13-2025 Functional status Ambulates;Up ad umm [facility] Work Phone: 09-28-2024 Functional status Bathroom Privilege [facility] Work Phone: 05-26-2023 Functional status Ambulates [facility] Work Phone: 02-03-2022 Functional status Dangle Feet;Chair [facility] Work Phone: Mental Status Date Assessment Result Facility 01-13-2025 Cognitive function Voice/Name [facility] Work Phone: 09-28-2024 Cognitive function Voice/Name [facility] Work Phone: 09-26-2024 Cognitive function Level Of Cons ciousness Awake;Alert;Appropriate;Follow s Commands [facility] Work Phone: 09-24-2023 Cognitive function Level Of Cons ciousness Awake;Alert;Appropriate;Follow s Commands [facility] Work Phone: 05-25-2023 Cognitive function Level Of Cons ciousness Awake;Alert;Appropriate;Follow s Commands [facility] Work Phone: 02-03-2022 Cognitive function Appropriate [facility] Work Phone: Clinical Notes 05-26-2023 to 01-13-2025 Note Date & Type Note Facility 01-13-2025 Discharge summary Note Date/Time January 13, 2025 2:06pm [facility] Medical Records Department [address] [place] [address] Discharge Summary 01/13/25 1403 MR#: [id number] Acct: [id number] Name: BRETT CRUZ Rep #:[id number] : 1990 34 From: Dian Galan MD PCP: Dr. Meena Flowers DO Status:ADM IN Location: ICU CVICU20 4-1 Providers Date of Admission: 01/11/25 Date of Discharge: 01/13/25 Primary Care Physician: Dr. Meena Flowers DO Reason For Visit: DKA Diagnosis Discharge Diagnosis (1) Diabetic keto-acidosis: Status: Acute Code(s): E11.10 - Type 2 diabetes mellitus with ketoacidosis without coma Qualifiers: Diabetes mellitus type: type 1 Diabetes mellitus complication detail: without coma Qualified Code(s): E10.10 - Type 1 diabetes mellitus with ketoacidosis without coma Plan: DISCHARGE DIAGNOSES: #1. DKA w/ Diabetes mellitus type I, uncontrolled, concern noncompliance #2. Hypokalemia, hypophosphatemia, hypomagnesemia #3. ? Chronic Kidney Disease Stage IIIa per chart reporting; however, GFR seemsto vacillate and currently greater than 100 thus uncertain if this is a true diagnosis #4. Normocytic anemia, chronic #5. Tobacco Abuse #6. Overweight #7. GERD Medications at Discharge Home Medications insulin aspart U-100 100 unit/mL (3 mL) subcutaneous pen (Novolog FlexPen U-100 Insulin aspart) See Protocol subcut TID PRN Hyperglycemia 02/02/22 insulin glargine-yfgn 100 unit/mL (3 mL) subcutaneous pen 24 unit subcut BID diabete 01/11/25 potassium chloride 10 mEq capsule,extended release 10 meq PO BID 01/11/25 nicotine 14 mg/24 hr daily transdermal patch 14 mg transdermal DAILY 14 days #14ea 01/13/25 Hospital Course Operations None Procedures EKG and - (ICU admission with insulin drip usage.) Summary of Care Provided Minutes Spent on Discharge: 35 Hospital Course: The patient is a 34 y/o F w/ PMHx: Overweight, Tobacco use, IDDM, ? CKD stage IIIa per chart review who presented to the [facility] ED on 01/11/25 with history of nausea, emesis and elevated blood sugars starting morning on day of presentationwith palpitations, racing heart in addition to dyspnea prompting ED evaluation to be cautious. Patient admitted to the ICU initially, maintained on insulin drip initially with serial BMP assessments for IV fluid change needs and electrolyte repletion. Magnesium, potassium and phosphorus levels monitored andrepleted as needed. 01/13/2025 early a.m. additional bicarb amp x 2 administered. 01/13/25 weight AM anion gap closed x 2 and bicarb improved thus patient transitioned to home SC regimen w/ overlap on drip with diet initiation and transition to Accu-Cheks with insulin sliding scale and home scheduled sliding scale regimen additionally. Nutrition consulted for education and teaching. Encouraged diet and insulin regimen compliance. Hemoglobin A1c 10.1%, not markedly improved from her most recent noted 09/30/24 hemoglobin A1c 10.2%. Given clinical improvement we will plan transition from ICU status to MS status 01/13/2025. Patient with significant electrolyte disturbances as noted with potassium, phosphorus and magnesium all of which were supplemented with recommended follow-up repeat lab testing with PCP outpatient. During admission noted chart history of possible CKD stage III however renal function during admission with GFR greater than 100 thus unclear if true diagnosis with recommended follow-up repeat renal function assessment outpatient and close monitoring for any renal function changes/chronic disease with early referral tonephrology recommended. Encouraged tobacco cessation with prescription for nicotine patch sent at discharge. At discharge [facility] in addition to referral for endocrinology. Weight / BMI Weight Weight: 153 lb 3.54 oz Body Mass Index (BMI) 28.9 ABG / Lab / Microbiology Data 01/13/25 04:28 01/13/25 08:07 Laboratory: Laboratory Results - last 24 hr 01/12/25 14:06: POC Glucose 208 H 01/12/25 15:05: POC Glucose 212 H 01/12/25 16:14: POC Glucose 202 H 01/12/25 16:20: Sodium 133, Potassium 3.6, Chloride 107, Carbon Dioxide 11.8 L, Anion Gap 15, BUN 5, Creatinine 0.65 L, Estim Creat Clear Calc 107.63, Est GFR (MDRD) Non-Af 118, BUN/Creatinine Ratio 7.3 L, Glucose 206 H, Calcium 7.6 01/12/25 17:13: POC Glucose 152 H 01/12/25 17:59: POC Glucose 155 H 01/12/25 18:53: POC Glucose 150 H 01/12/25 20:02: POC Glucose 176 H 01/12/25 20:13: Sodium 133, Potassium 3.9, Chloride 105, Carbon Dioxide 12.3 L, Anion Gap 16 H, BUN 4, Creatinine 0.63 L, Estim Creat Clear Calc 111.05, Est GFR(MDRD) Non-Af 119, BUN/Creatinine Ratio 6.5 L, Glucose 183 H, Calcium 7.5 L 01/12/25 21:00: POC Glucose 175 H 01/12/25 22:03: POC Glucose 181 H 01/12/25 23:02: POC Glucose 150 H 01/13/25 00:05: POC Glucose 148 H 01/13/25 00:10: Sodium 135, Potassium 3.0 L, Chloride 107, Carbon Dioxide 14.5 L, Anion Gap 13, BUN 3 L, Creatinine 0.50 L, Estim Creat Clear Calc 139.92, Est GFR (MDRD) Non-Af 125, BUN/Creatinine Ratio 6.6 L, Glucose 136 H, Calcium 7.9 01/13/25 01:00: POC Glucose 113 H 01/13/25 02:08: POC Glucose 105 01/13/25 03:01: POC Glucose 93 01/13/25 04:13: POC Glucose 97 01/13/25 04:28: WBC 6.4, RBC 3.94 L, Hgb 11.5 L, Hct 35.2 L, MCV 89.3 D, MCH 29.2, MCHC 32.7 D, RDW Std Deviation 47.9 H, RDW Coeff of Bret 14.6, Plt Count 264, MPV 9.5, Immature Gran % (Auto) 0.200, Neut % (Auto) 51.4, Lymph % (Auto) 36.5, Johnson % (Auto) 9.7, Eos % (Auto) 1.4, Baso % (Auto) 0.8, Absolute Neuts (auto) 3.3, Absolute Lymphs (auto) 2.34, Nucleated RBC % 0, Sodium 136, Potassium 3.1 L, Chloride 108, Carbon Dioxide 14.8 L, Anion Gap 13, BUN 3 L, Creatinine 0.51 L, Estim Creat Clear Calc 137.18, Est GFR (MDRD) Non-Af 125, BUN/Creatinine Ratio 5.3 L, Glucose 97, Calcium 8.0, Phosphorus 1.0 L*, Magnesium1.5, Total Bilirubin 0.46, AST 25, ALT 24, Alkaline Phosphatase 44, Total Protein 5.3 L, Albumin 3.4 L, Globulin 2.0 L, Albumin/Globulin Ratio 1.7, b-Hydroxybutyric mmol/L 2.5 H 01/13/25 05:05: POC Glucose 112 H 01/13/25 06:05: POC Glucose 142 H 01/13/25 07:06: POC Glucose 138 H 01/13/25 08:06: POC Glucose 119 H 01/13/25 08:07: Sodium 138, Potassium 3.5, Chloride 106, Carbon Dioxide 20.1 L, Anion Gap 11, BUN 2 L, Creatinine 0.49 L, Estim Creat Clear Calc 142.88, Est GFR(MDRD) Non-Af 126, BUN/Creatinine Ratio 5.1 L, Glucose 118 H, Calcium 7.8 D/C Instructions Discharge Diet: 1800 Calorie Control Diet May resume sexual activity in: No Restrictions Weight Bearing Status: Weight bearing as tolerated Call your doctor if you observe: - (Recurrent elevated blood sugars (uncontrolled), recurrent DKA type symptoms (shortness of breath, stomach discomfort, increased thirst/urination)) DC O2, CPAP, BIPAP Needs Home O2 Discharge instructions: No Meaningful Use Info Meaningful Use Meaningful Use Diagnoses (Choose all that apply): None applicable Ischemic Stroke Statin Dosing Therapy Reference: STATIN DOSE THERAPY REFERENCE: * Patients > 75 years receive moderate or high dose statin therapy. * Patients 75 years or YOUNGER should receive HIGH intensity statin dose unless contraindicated. You will be required to document reason for non-treatment if statin daily dose does not meet guidelines. HIGH DOSE STATIN THERAPY DAILY Atorvastatin > than or = to 40 mg Rosuvastatin > than or = to 20 mg Amlodipine + Atorvastatin > than or = to 2.5/40 mg Ezetimibe + Simvastatin 10/80 mg Simvastatin 80mg Discharge Plan Admission Admit Date/Time: 01/11/25 22:21 Primary Reason for Your Visit: DKA w/ Diabetes mellitus type I, Low mag/phos/k Attending Provider: Dian Galan Primary Care Provider: Meena Flowers Consulting Providers: Andrew Cruz Instructions Patient Instructions: Ketoacidosis Ch, Diabetes: Meal Planning, Diabetes- Know Your Goal Numbers Additional Instructions / Restrictions: ADDITIONAL DIAGNOSES/INSTRUCTIONS: #1. DKA w/ Diabetes mellitus type I: --Maintained on insulin drip initially with serial BMP assessments for IV fluid change needs and electrolyte repletion. --Magnesium, potassium, phosphorus levels monitored and repleted as needed. Please have repeat levels obtained outpatient upon follow-up with your primary care physician to assure appropriate. --01/13/2025 early a.m. additional bicarb amp x 2 administered. --01/13/25 weight AM anion gap closed x 2 and bicarb improved thus patient transitioned to home SC regimen w/ overlap on drip with diet initiation and transition to Accu-Cheks with insulin sliding scale and home scheduled sliding scale regimen additionally. --Nutrition consulted for education and teaching with encouraged diet and insulin regimen compliance. --Hemoglobin A1c 10.1%, not markedly improved from her most recent noted 09/30/24hemoglobin A1c 10.2%. --Please follow-up with your Primary care physician and also establish with Dr. Kaiser Endocrinology. #2. Chronic Kidney Disease Stage IIIa per chart reporting; however, GFR seems to vacillate and currently greater than 100 thus uncertain if this is a true diagnosis: --Admission BUN/Cr 5/0.71, GFR 114, repeat level 01/12/25 BUN/creatinine 5/0.71 onrepeat given serial BMP, baseline renal function 0.6-0.8 primarily. --01/13/2025 BUN/creatinine 3/0.51, GFR 125, continue to monitor level outpatient and assure that if onset of chronic disease early referral to nephrology is made. Discharge Orders/Prescriptions Prescriptions: New nicotine 14 mg/24 hr Patch 24 Hour 14 mg transdermal DAILY 14 Days Qty: 14 0RF Rx Instructions: Please transition to 7 mg patch following w/ PCP. Continued insulin aspart U-100 [Novolog FlexPen U-100 [...] (3 mL) Insulin Pen 24 unit subcut BID potassium chloride 10 mEq capsule, extended release 10 meq PO BID Referrals / Follow Up: Meena Flowers DO [Primary Care Provider] - (Please follow-up with PCP within 3-5 days to review admission.) Altaf Kaiser MD [Med Staff - Courtesy Staff] - (Please contact office to establish. Please take first open visit, ideally within 1-4 weeks.) Disposition Disposition (needs filled in before D/C Order can be placed): Home, Self Care Charges/Coding Visit Charges Inpatient E&M: 63846 Disch Hosp >30min 01/13/25 1406 <Electronically signed by Dian Galan MD> Cosigner Signature (if applicable): CC: Dr. Dian Galan MD; Dr. Meena Flowers DO~ Signed [facility] Work Phone: 1(924) 555-927207-08-2025 Discharge summary Author [facility] Note Date/Time January 13, 2025 2:03p [facility] Medical Records Department [address] [place] [id number] Instructions for Home/Discharge Instructions 01/13/25 1402 MR#: [id number] Acct: [id number] Name: BRETT CRUZ Rep #:[id number] : 1990 34 From: Dian Galan MD PCP: Dr. Meena Flowers DO Status:ADM IN Discharge Instructions Diet Discharge Diet: 1800 Calorie Control Diet DC O2, CPAP, BIPAP needs Home O2 Discharge instructions: No Dressing / Incision Discharge Activity: Return to Normal Activity May resume sexual activity in: No Restrictions Weight Bearing Status: Weight bearing as tolerated Dressing / Incision Call your doctor if you observe: - (Recurrent elevated blood sugars (uncontrolled), recurrent DKA type symptoms (shortness of breath, stomach discomfort, increased thirst/urination)) Follow Up Care Test Results: Test results from this visit will be discussed in further detail at your follow- up appointment, if applicable. Discharge Plan Admission Admit Date/Time: 01/11/25 22:21 Primary Reason for Your Visit: DKA w/ Diabetes mellitus type I, Low mag/phos/k Attending Provider: Dian Galan Primary Care Provider: Meena Flowers Consulting Providers: Andrew Cruz Instructions Patient Instructions: Ketoacidosis Ch, Diabetes: Meal Planning, Diabetes- Know Your Goal Numbers Additional Instructions / Restrictions: ADDITIONAL DIAGNOSES/INSTRUCTIONS: #1. DKA w/ Diabetes mellitus type I: --Maintained on insulin drip initially with serial BMP assessments for IV fluid change needs and electrolyte repletion. --Magnesium, potassium, phosphorus levels monitored and repleted as needed. Please have repeat levels obtained outpatient upon follow-up with your primary care physician to assure appropriate. --01/13/2025 early a.m. additional bicarb amp x 2 administered. --01/13/25 weight AM anion gap closed x 2 and bicarb improved thus patient transitioned to home SC regimen w/ overlap on drip with diet initiation and transition to Accu-Cheks with insulin sliding scale and home scheduled sliding scale regimen additionally. --Nutrition consulted for education and teaching with encouraged diet and insulin regimen compliance. --Hemoglobin A1c 10.1%, not markedly improved from her most recent noted 09/30/24hemoglobin A1c 10.2%. --Please follow-up with your Primary care physician and also establish with Dr. Kaiser Endocrinology. #2. Chronic Kidney Disease Stage IIIa per chart reporting; however, GFR seems to vacillate and currently greater than 100 thus uncertain if this is a true diagnosis: --Admission BUN/Cr 5/0.71, GFR 114, repeat level 01/12/25 BUN/creatinine 5/0.71 onrepeat given serial BMP, baseline renal function 0.6-0.8 primarily. --01/13/2025 BUN/creatinine 3/0.51, GFR 125, continue to monitor level outpatient and assure that if onset of chronic disease early referral to nephrology is made. Discharge Orders/Prescriptions Prescriptions: New nicotine 14 mg/24 hr Patch 24 Hour 14 mg transdermal DAILY 14 Days Qty: 14 0RF Rx Instructions: Please transition to 7 mg patch following w/ PCP. Continued insulin aspart U-100 [Novolog FlexPen U-100 [...] (3 mL) Insulin Pen 24 unit subcut BID potassium chloride 10 mEq capsule, extended release 10 meq PO BID Referrals / Follow Up: Meena Flowers DO [Primary Care Provider] - (Please follow-up with PCP within 3-5 days to review admission.) Altaf Kaiser MD [Med Staff - Courtesy Staff] - (Please contact office to establish. Please take first open visit, ideally within 1-4 weeks.) Disposition Disposition (needs filled in before D/C Order can be placed): Home, Self Care 01/13/25 1403<Electronically signed by Dian Galan MD>Dian Galan MD CC: Dr. Andrew Cruz DO; Dr. Meena Flowers DO ~ Signed [facility] Work Phone: 1(388) 107-580007-08-2025 Progress note Author [facility] Note Date/Time January 13, 2025 1:36p m [facility] Medical Records Department [address] [place] [address] Progress Note - Hospitalist 01/13/25 0653 MR#: [id number] Acct: [id number] Name: BRETT CRUZ Rep #:[id number] : 1990 34 From: Dian Galan MD PCP: Dr. Meena Flowers DO Status:ADM IN Location: ICU CVICU20 4-1 Reason for Visit Reason for Visit: Diagnoses Elevated white blood cell count, unspecified (01/11/25) Type 1 diabetes mellitus with ketoacidosis without coma (01/11/25) Type 2 diabetes mellitus with ketoacidosis without coma (01/11/25) Overweight (01/11/25) Reaction to severe stress, unspecified (01/11/25) Palpitations (01/11/25) Shortness of breath (01/11/25) Nausea (01/11/25) Tobacco use (01/11/25) Subjective Subjective Patient with no acute events overnight per self and per nursing report. This morning patient fortunately has close the gap x 2 and carbon oxide level has elevated appropriately. Patient notes she is very eager for diet and initially very disappointed at potential not being discharged to home but given lengthy time of insulin drip need discussed importance of making sure that blood sugars are appropriate, electrolytes corrected and the patient does not return into DKAto which she is amenable. Patient denies fevers, chills, nausea, emesis, abdominal pain, chest pain or dyspnea. Objective Data Objective Data Vital Signs: Vital Signs Temp Pulse Resp BP Pulse Ox O2 Del Method 96.7 F L 57 L 18 105/67 99 Room Air 01/13/25 01:00 01/13/25 06:00 01/13/25 06:00 01/13/25 06:00 01/13/25 06:00 01/13/25 06:00 Oxygen Delivery Method Room Air Weight: 153 lb 3.54 oz Body Mass Index (BMI) 28.9 Intake & Output: Intake and Output for Last 24 Hours 01/11/25 01/12/25 01/13/25 23:59 23:59 23:59 Intake Total 1012.69 / 1012.69 5513.29 / 5516.19 1016.1 / 1016.1 Output Total 1700 / 1700 Balance 1012.69 / 1012.69 3813.29 / 3816.19 1016.1 / 1016.1 Lab / Micro Data 01/13/25 04:28 01/13/25 08:07 Labs: Laboratory Results - last 24 hr 01/12/25 05:51: POC Glucose 130 H 01/12/25 06:41: POC Glucose 117 H 01/12/25 08:16: POC Glucose 121 H 01/12/25 09:19: POC Glucose 102 01/12/25 09:30: Sodium 135, Potassium 4.1, Chloride 111 H, Carbon Dioxide 11.8 L, Anion Gap 13, BUN 5, Creatinine 0.71, Estim Creat Clear Calc 98.54, Est GFR (MDRD) Non-Af 113, BUN/Creatinine Ratio 6.9 L, Glucose 95, Calcium 8.0 01/12/25 10:08: POC Glucose 76 01/12/25 10:34: POC Glucose 56 L 01/12/25 11:02: POC Glucose 187 H 01/12/25 12:08: POC Glucose 179 H 01/12/25 12:25: Sodium 134, Potassium 4.4, Chloride 105, Carbon Dioxide 11.5 L, Anion Gap 18 H, BUN 5, Creatinine 0.73, Estim Creat Clear Calc 95.84, Est GFR (MDRD) Non-Af 110, BUN/Creatinine Ratio 6.8 L, Glucose 206 H, Calcium 7.9 01/12/25 13:09: POC Glucose 190 H 01/12/25 14:06: POC Glucose 208 H 01/12/25 15:05: POC Glucose 212 H 01/12/25 16:14: POC Glucose 202 H 01/12/25 16:20: Sodium 133, Potassium 3.6, Chloride 107, Carbon Dioxide 11.8 L, Anion Gap 15, BUN 5, Creatinine 0.65 L, Estim Creat Clear Calc 107.63, Est GFR (MDRD) Non-Af 118, BUN/Creatinine Ratio 7.3 L, Glucose 206 H, Calcium 7.6 01/12/25 17:13: POC Glucose 152 H 01/12/25 17:59: POC Glucose 155 H 01/12/25 18:53: POC Glucose 150 H 01/12/25 20:02: POC Glucose 176 H 01/12/25 20:13: Sodium 133, Potassium 3.9, Chloride 105, Carbon Dioxide 12.3 L, Anion Gap 16 H, BUN 4, Creatinine 0.63 L, Estim Creat Clear Calc 111.05, Est GFR(MDRD) Non-Af 119, BUN/Creatinine Ratio 6.5 L, Glucose 183 H, Calcium 7.5 L 01/12/25 21:00: POC Glucose 175 H 01/12/25 22:03: POC Glucose 181 H 01/12/25 23:02: POC Glucose 150 H 01/13/25 00:05: POC Glucose 148 H 01/13/25 00:10: Sodium 135, Potassium 3.0 L, Chloride 107, Carbon Dioxide 14.5 L, Anion Gap 13, BUN 3 L, Creatinine 0.50 L, Estim Creat Clear Calc 139.92, Est GFR (MDRD) Non-Af 125, BUN/Creatinine Ratio 6.6 L, Glucose 136 H, Calcium 7.9 01/13/25 01:00: POC Glucose 113 H 01/13/25 02:08: POC Glucose 105 01/13/25 03:01: POC Glucose 93 01/13/25 04:13: POC Glucose 97 01/13/25 04:28: WBC 6.4, RBC 3.94 L, Hgb 11.5 L, Hct 35.2 L, MCV 89.3 D, MCH 29.2, MCHC 32.7 D, RDW Std Deviation 47.9 H, RDW Coeff of Bret 14.6, Plt Count 264, MPV 9.5, Immature Gran % (Auto) 0.200, Neut % (Auto) 51.4, Lymph % (Auto) 36.5, Johnson % (Auto) 9.7, Eos % (Auto) 1.4, Baso % (Auto) 0.8, Absolute Neuts (auto) 3.3, Absolute Lymphs (auto) 2.34, Nucleated RBC % 0, Sodium 136, Potassium 3.1 L, Chloride 108, Carbon Dioxide 14.8 L, Anion Gap 13, BUN 3 L, Creatinine 0.51 L, Estim Creat Clear Calc 137.18, Est GFR (MDRD) Non-Af 125, BUN/Creatinine Ratio 5.3 L, Glucose 97, Calcium 8.0, Phosphorus 1.0 L*, Magnesium1.5, Total Bilirubin 0.46, AST 25, ALT 24, Alkaline Phosphatase 44, Total Protein 5.3 L, Albumin 3.4 L, Globulin 2.0 L, Albumin/Globulin Ratio 1.7, b-Hydroxybutyric mmol/L 2.5 H 01/13/25 05:05: POC Glucose 112 H 01/13/25 06:05: POC Glucose 142 H Physical Exam Narrative Physical Examination: General: Awake, alert, oriented x 3 and cooperative, laying in the ICU bed, denies any acute complaints, eager for diet. Skin: Normal color, normal turgor, no icterus, no cyanosis except occasional stage ecchymoses, abrasion. HEENT: AT/NC, EOMI, PERRLA, MMM. Lungs: CTA bilaterally, moderate effort, mild decrease BL bases, no rales, ronchi or wheezing. Heart: Improved, regular rate and rhythm; no gallop, rub audible. Abdomen: Soft, NTTP, ND, mildly hyperactive BS. Extremities: No cyanosis, clubbing, or edema. Neurological: Patient awake, alert, oriented as noted, cognitive function intact; pupils equally reactive to light and accommodation, cranial nerves grossly normal, moving all 4 extremities, no focal deficits, strength continues to improve, near baseline. Psychiatric: Affect appears mildly fatigued otherwise normal, no acute evidence of depressive or anxiety feelings. Assessment & Plan Assessment/Plan (1) Diabetic keto-acidosis: QUALIFIERS: Diabetes mellitus complication detail: without coma Diabetes mellitus type: type 1 Qualified Code(s): E10.10 - Type 1 diabetes mellitus with ketoacidosis without coma PLAN: Plan The patient is a 34 y/o F w/ PMHx: Overweight, Tobacco use, IDDM, CKD stage IIIaper chart review who presents to the [facility] ED on 01/11/25 with history of nausea, emesis and elevated blood sugars starting morning on day of presentation with palpitations, racing heart in addition to dyspnea prompting ED evaluation to be cautious. #1. DKA w/ Diabetes mellitus type I: Patient admitted to the ICU initially, maintained on insulin drip initially with serial BMP assessments for IV fluid change needs and electrolyte repletion. Magnesium and phosphorus levels monitored and repleted as needed. 01/13/2025 early a.m. additional bicarb amp x 2administered. 01/13/25 weight AM anion gap closed x 2 and bicarb improved thus patient transitioned to home SC regimen w/ overlap on drip with diet initiation and transition to Accu-Cheks with insulin sliding scale and home scheduled sliding scale regimen additionally. Nutrition consulted for education and teaching. Encouraged diet and insulin regimen compliance. Hemoglobin A1c 10.1%, not markedly improved from her most recent noted 09/30/24 hemoglobin A1c 10.2%. Given clinical improvement we will plan transition from ICU status to MS status 01/13/2025. #2. Hypokalemia, hypophosphatemia, hypomagnesemia: Admission K+ 3.1, supplementation given per electrolyte protocol, repeat level in AM. Phosphorus 1.0, IV supplementation ordered per electrolyte protocol. Magnesium 1.5, IV supplementation ordered per electrolyte protocol. Will plan repeat magnesium, phosphorus 01/13/2025 afternoon to assure improved. #3. Chronic Kidney Disease Stage IIIa per chart reporting; however, GFR seems to vacillate and currently greater than 100 thus uncertain if this is a true diagnosis: Admission BUN/Cr 5/0.71, GFR 114, repeat level 01/12/25 BUN/creatinine 5/0.71 on repeat given serial BMP, baseline renal function 0.6-0.8 primarily, 01/13/2025 BUN/creatinine 3/0.51, GFR 125, continue to trend. #4. Normocytic anemia: Admission hemoglobin 13, MCV 96.9, baseline has vacillated anywhere from 11-13 range, 01/13/2025 normal 9.5, MCV 89.3. #5. Tobacco Abuse: Encouraged cessation, inpatient consultation per RT, NR if desired. #6. Overweight: Weight loss and lifestyle changes encouraged. #7. GERD: Currently maintained on IV PPI, may transition off to oral option if necessary once transition to a diet. #8. DVT prophylaxis: Lovenox. Charges/Coding Visit Charges Inpatient E&M: 58866 Subs Hosp L3 01/13/25 1336 <Electronically signed by Dian Galan MD> Cosigner Signature (if applicable): CC: ~ Signed [facility] Work Phone: [phone] Discharge summary [facility] Medical Records Department [address] [place] [address] Discharge Summary 01/13/25 1403 MR#: [id number] Acct: [id number] Name: BRETT CRUZ Rep #:[id number] : 1990 34 From: Dian Galan MD PCP: Dr. Meena Flowers DO Status:ADM IN Location: ICU [id number] 4-1 Providers Date of Admission: 01/11/25 Date of Discharge: 01/13/25 Primary Care Physician: Dr. Meena Flowers DO Reason For Visit: DKA Diagnosis Discharge Diagnosis (1) Diabetic keto-acidosis: Status: Acute Code(s): E11.10 - Type 2 diabetes mellitus with ketoacidosis without coma Qualifiers: Diabetes mellitus type: type 1 Diabetes mellitus complication detail: without coma Qualified Code(s): E10.10 - Type 1 diabetes mellitus with ketoacidosis without coma Plan: DISCHARGE DIAGNOSES: #1. DKA w/ Diabetes mellitus type I, uncontrolled, concern noncompliance #2. Hypokalemia, hypophosphatemia, hypomagnesemia #3. ? Chronic Kidney Disease Stage IIIa per chart reporting; however, GFR seemsto vacillate and currently greater than 100 thus uncertain if this is a true diagnosis #4. Normocytic anemia, chronic #5. Tobacco Abuse #6. Overweight #7. GERD Medications at Discharge Home Medications insulin aspart U-100 100 unit/mL (3 mL) subcutaneous pen (Novolog FlexPen U-100 Insulin aspart) SeeProtocol subcut TID PRN Hyperglycemia 02/02/22 insulin glargine-yfgn 100 unit/mL (3 mL) subcutaneous pen 24 unit subcut BID diabete 01/11/25 potassium chloride 10 mEq capsule,extended release 10 meq PO BID 01/11/25 nicotine 14 mg/24 hr daily transdermal patch 14 mg transdermal DAILY 14 days #14ea 01/13/25 Hospital Course Operations None Procedures EKG and - (ICU admission with insulin drip usage.) Summary of Care Provided Minutes Spent on Discharge: 35 Hospital Course: The patient is a 34 y/o F w/ PMHx: Overweight, Tobacco use, IDDM, ? CKD stage IIIa per chart reviewwho presented to the [facility] ED on 01/11/25 with history of nausea, emesis and elevated blood sugars starting morning on day of presentationwith palpitations, racing heart in addition to dyspnea prompting ED evaluation to be cautious. Patient admitted to the ICU initially, maintained on insulin drip initially with serial BMP assessments for IV fluid change needs and electrolyte repletion. Magnesium, potassium and phosphorus levels monitored andrepleted as needed. 01/13/2025 early a.m. additional bicarbamp x 2 administered. 01/13/25 weight AM anion gap closed x 2 and bicarb improved thus patient transitioned to home SC regimen w/ overlap on drip with diet initiation and transition to Accu-Cheks with insulin sliding scale and home scheduled sliding scale regimen additionally. Nutrition consulted foreducation and teaching. Encouraged diet and insulin regimen compliance. Hemoglobin A1c 10.1%, not markedly improved from her most recent noted 09/30/24 hemoglobin A1c 10.2%. Given clinical improvementwe will plan transition from ICU status to MS status 01/13/2025. Patient with significant electrolytedisturbances as noted with potassium, phosphorus and magnesium all of which were supplemented with r ecommended follow-up repeat lab testing with PCP outpatient. During admission noted chart history of possible CKD stage III however renal function during admission with GFR greater than 100 thus unclear if true diagnosis with recommended follow-up repeat renal function assessment outpatient and close monitoring for any renal function changes/chronic disease with early referral tonephrology recommended. Encouraged tobacco cessation with prescription for nicotine patch sent at discharge. At [facility] in addition to referral for endocrinology. Weight / BMI Weight Weight: 153 lb 3.54 oz Body Mass Index (BMI) 28.9 ABG / Lab / Microbiology Data 01/13/25 04:28 01/13/25 08:07 Laboratory: Laboratory Results - last 24 hr 01/12/25 14:06: POC Glucose 208 H 01/12/25 15:05: POC Glucose 212 H 01/12/25 16:14: POC Glucose 202 H 01/12/25 16:20: Sodium 133, Potassium 3.6, Chloride 107, Carbon Dioxide 11.8 L, Anion Gap 15, BUN 5, Creatinine 0.65 L, Estim Creat Clear Calc 107.63, Est GFR (MDRD) Non-Af 118, BUN/Creatinine Ratio 7.3 L, Glucose 206 H, Calcium 7.6 01/12/25 17:13: POC Glucose 152 H 01/12/25 17:59: POC Glucose 155 H 01/12/25 18:53: POC Glucose 150 H 01/12/25 20:02: POC Glucose 176 H 01/12/25 20:13: Sodium 133, Potassium 3.9, Chloride 105, Carbon Dioxide 12.3 L, Anion Gap 16 H, BUN4, Creatinine 0.63 L, Estim Creat Clear Calc 111.05, Est GFR(MDRD) Non-Af 119, BUN/Creatinine Ratio6.5 L, Glucose 183 H, Calcium 7.5 L 01/12/25 21:00: POC Glucose 175 H 01/12/25 22:03: POC Glucose 181 H 01/12/25 23:02: POC Glucose 150 H 01/13/25 00:05: POC Glucose 148 H 01/13/25 00:10: Sodium 135, Potassium 3.0 L, Chloride 107, Carbon Dioxide 14.5 L, Anion Gap 13, BUN3 L, Creatinine 0.50 L, Estim Creat Clear Calc 139.92, Est GFR (MDRD) Non-Af 125, BUN/Creatinine Ratio 6.6 L, Glucose 136 H, Calcium 7.9 01/13/25 01:00: POC Glucose 113 H 01/13/25 02:08: POC Glucose 105 01/13/25 03:01: POC Glucose 93 01/13/25 04:13: POC Glucose 97 01/13/25 04:28: WBC 6.4, RBC 3.94 L, Hgb 11.5 L, Hct 35.2 L, MCV 89.3 D, MCH 29.2, MCHC 32.7 D, RDWStd Deviation 47.9 H, RDW Coeff of Bret 14.6, Plt Count 264, MPV 9.5, Immature Gran % (Auto) 0.200, Neut % (Auto) 51.4, Lymph % (Auto) 36.5, Johnson % (Auto) 9.7, Eos % (Auto) 1.4, Baso % (Auto) 0.8, Absolute Neuts (auto) 3.3, Absolute Lymphs (auto) 2.34, Nucleated RBC % 0, Sodium 136, Potassium 3.1 L,Chloride 108, Carbon Dioxide 14.8 L, Anion Gap 13, BUN 3 L, Creatinine 0.51 L, Estim Creat Clear Calc 137.18, Est GFR (MDRD) Non-Af 125, BUN/Creatinine Ratio 5.3 L, Glucose 97, Calcium 8.0, Phosphorus 1.0 L*, Magnesium1.5, Total Bilirubin 0.46, AST 25, ALT 24, Alkaline Phosphatase 44, Total Protein5.3 L, Albumin 3.4 L, Globulin 2.0 L, Albumin/Globulin Ratio 1.7, b-Hydroxybutyric mmol/L 2.5 H 01/13/25 05:05: POC Glucose 112 H 01/13/25 06:05: POC Glucose 142 H 01/13/25 07:06: POC Glucose 138 H 01/13/25 08:06: POC Glucose 119 H 01/13/25 08:07: Sodium 138, Potassium 3.5, Chloride 106, Carbon Dioxide 20.1 L, Anion Gap 11, BUN 2L, Creatinine 0.49 L, Estim Creat Clear Calc 142.88, Est GFR(MDRD) Non-Af 126, BUN/Creatinine Ratio5.1 L, Glucose 118 H, Calcium 7.8 D/C Instructions Discharge Diet: 1800 Calorie Control Diet May resume sexual activity in: No Restrictions Weight Bearing Status: Weight bearing as tolerated Call your doctor if you observe: - (Recurrent elevated blood sugars (uncontrolled), recurrent DKA type symptoms (shortness of breath, stomach discomfort, increased thirst/urination)) DC O2, CPAP, BIPAP Needs Home O2 Discharge instructions: No Meaningful Use Info Meaningful Use Meaningful Use Diagnoses (Choose all that apply): None applicable Ischemic Stroke Statin Dosing Therapy Reference: STATIN DOSE THERAPY REFERENCE: * Patients > 75 years receive moderate or high dose statin therapy. * Patients 75 years or YOUNGER should receive HIGH intensity statin dose unless contraindicated. You will be required to document reason for non-treatment if statin daily dose does not meet guidelines. HIGH DOSE STATIN THERAPY DAILY Atorvastatin > than or = to 40 mg Rosuvastatin > than or = to 20 mg Amlodipine + Atorvastatin > than or = to 2.5/40 mg Ezetimibe + Simvastatin 10/80 mg Simvastatin 80mg Discharge Plan Admission Admit Date/Time: 01/11/25 22:21 Primary Reason for Your Visit: DKA w/ Diabetes mellitus type I, Low mag/phos/k Attending Provider: Dian Galan Primary Care Provider: Meena Flowers Consulting Providers: Andrew Cruz Instructions Patient Instructions: Ketoacidosis Ch, Diabetes: Meal Planning, Diabetes- Know Your Goal Numbers Additional Instructions / Restrictions: ADDITIONAL DIAGNOSES/INSTRUCTIONS: #1. DKA w/ Diabetes mellitus type I: --Maintained on insulin drip initially with serial BMP assessments for IV fluid change needs and electrolyte repletion. --Magnesium, potassium, phosphorus levels monitored and repleted as needed. Please have repeat levels obtained outpatient upon follow-up with your primary care physician to assure appropriate. --01/13/2025 early a.m. additional bicarb amp x 2 administered. --01/13/25 weight AM anion gap closed x 2 and bicarb improved thus patient transitioned to home SC regimen w/ overlap on drip with diet initiation and transition to Accu-Cheks with insulin sliding scale and home scheduled sliding scale regimen additionally. --Nutrition consulted for education and teaching with encouraged diet and insulin regimen compliance. --Hemoglobin A1c 10.1%, not markedly improved from her most recent noted 09/30/24hemoglobin A1c 10.2%. --Please follow-up with your Primary care physician and also establish with Dr. Kaiser Endocrin[facility]. #2. Chronic Kidney Disease Stage IIIa per chart reporting; however, GFR seems to vacillate and currently greater than 100 thus uncertain if this is a true diagnosis: --Admission BUN/Cr 5/0.71, GFR 114, repeat level 01/12/25 BUN/creatinine 5/0.71 onrepeat given serialBMP, baseline renal function 0.6-0.8 primarily. --01/13/2025 BUN/creatinine 3/0.51, GFR 125, continue to monitor level outpatient and assure that if onset of chronic disease early referral to nephrology is made. Discharge Orders/Prescriptions Prescriptions: New nicotine 14 mg/24 hr Patch 24 Hour 14 mg transdermal DAILY 14 Days Qty: 14 0RF Rx Instructions: Please transition to 7 mg patch following w/ PCP. Continued insulin aspart U-100 [Novolog FlexPen U-100 [...] (3 mL) Insulin Pen 24 unit subcut BID potassium chloride 10 mEq capsule, extended release 10 meq PO BID Referrals / Follow Up: Meena Flowers DO [Primary Care Provider] - (Please follow-up with PCP within 3-5 days to review admission.) Altaf Kaiser MD [Med Staff - Courtesy Staff] - (Please contact office to establish. Please take firstopen visit, ideally within 1-4 weeks.) Disposition Disposition (needs filled in before D/C Order can be placed): Home, Self Care Charges/Coding Visit Charges Inpatient E&M: 01366 Disch Hosp >30min 01/13/25 1406 Cosigner Signature (if applicable): CC: Dr. Dian Galan MD; Dr. Meena Flowers DO~ Signed [facility]07-08-2025 Discharge summary [facility] Medical Records Department [address] [place] [address] Instructions for Home/Discharge Instructions 01/13/25 1402 MR#: [id number] Acct: [id number] Name: BRETT CRUZ Rep #:[id number] : 1990 34 From: Dian Galan MD PCP: Dr. Meena Flowers, DO Status:ADM IN Discharge Instructions Diet Discharge Diet: 1800 Calorie Control Diet DC O2, CPAP, BIPAP needs Home O2 Discharge instructions: No Dressing / Incision Discharge Activity: Return to Normal Activity May resume sexual activity in: No Restrictions Weight Bearing Status: Weight bearing as tolerated Dressing / Incision Call your doctor if you observe: - (Recurrent elevated blood sugars (uncontrolled), recurrent DKA type symptoms (shortness of breath, stomach discomfort, increased thirst/urination)) Follow Up Care Test Results: Test results from this visit will be discussed in further detail at your follow- up appointment, if applicable. Discharge Plan Admission Admit Date/Time: 01/11/25 22:21 Primary Reason for Your Visit: DKA w/ Diabetes mellitus type I, Low mag/phos/k Attending Provider: Dian Galan Primary Care Provider: Meena Flowers Consulting Providers: Andrew Cruz Instructions Patient Instructions: Ketoacidosis Ch, Diabetes: Meal Planning, Diabetes- Know Your Goal Numbers Additional Instructions / Restrictions: ADDITIONAL DIAGNOSES/INSTRUCTIONS: #1. DKA w/ Diabetes mellitus type I: --Maintained on insulin drip initially with serial BMP assessments for IV fluid change needs and electrolyte repletion. --Magnesium, potassium, phosphorus levels monitored and repleted as needed. Please have repeat levels obtained outpatient upon follow-up with your primary care physician to assure appropriate. --01/13/2025 early a.m. additional bicarb amp x 2 administered. --01/13/25 weight AM anion gap closed x 2 and bicarb improved thus patient transitioned to home SC regimen w/ overlap on drip with diet initiation and transition to Accu-Cheks with insulin sliding scale and home scheduled sliding scale regimen additionally. --Nutrition consulted for education and teaching with encouraged diet and insulin regimen compliance. --Hemoglobin A1c 10.1%, not markedly improved from her most recent noted 09/30/24hemoglobin A1c 10.2%. --Please follow-up with your Primary care physician and also establish with Dr. [facility]. #2. Chronic Kidney Disease Stage IIIa per chart reporting; however, GFR seems to vacillate and currently greater than 100 thus uncertain if this is a true diagnosis: --Admission BUN/Cr 5/0.71, GFR 114, repeat level 01/12/25 BUN/creatinine 5/0.71 onrepeat given serialBMP, baseline renal function 0.6-0.8 primarily. --01/13/2025 BUN/creatinine 3/0.51, GFR 125, continue to monitor level outpatient and assure that if onset of chronic disease early referral to nephrology is made. Discharge Orders/Prescriptions Prescriptions: New nicotine 14 mg/24 hr Patch 24 Hour 14 mg transdermal DAILY 14 Days Qty: 14 0RF Rx Instructions: Please transition to 7 mg patch following w/ PCP. Continued insulin aspart U-100 [Novolog FlexPen U-100 [...] (3 mL) Insulin Pen 24 unit subcut BID potassium chloride 10 mEq capsule, extended release 10 meq PO BID Referrals / Follow Up: Meena Flowers DO [Primary Care Provider] - (Please follow-up with PCP within 3-5 days to review admission.) Altaf Kaiser MD [Med Staff - Courtesy Staff] - (Please contact office to establish. Please take firstopen visit, ideally within 1-4 weeks.) Disposition Disposition (needs filled in before D/C Order can be placed): Home, Self Care 01/13/25 1403Asaqib Galan MD CC: Dr. Andrew Cruz DO; Dr. Meena Flowers DO ~ Signed [facility]07-08-2025 [facility]07-08-2025 Progress note [facility] Medical Records Department [address] [place] [address] Progress Note - Hospitalist 01/13/25 0653 MR#: [id number] Acct: [id number] Name: BRETT CRUZ Rep #:[id number] : 1990 34 From: Dian Galan MD PCP: Dr. Meena Flowers, DO Status:ADM IN [facility] Reason for Visit Reason for Visit: Diagnoses Elevated white blood cell count, unspecified (01/11/25) Type 1 diabetes mellitus with ketoacidosis without coma (01/11/25) Type 2 diabetes mellitus with ketoacidosis without coma (01/11/25) Overweight (01/11/25) Reaction to severe stress, unspecified (01/11/25) Palpitations (01/11/25) Shortness of breath (01/11/25) Nausea (01/11/25) Tobacco use (01/11/25) Subjective Subjective Patient with no acute events overnight per self and per nursing report. This morning patient fortunately has close the gap x 2 and carbon oxide level has elevated appropriately. Patient notes she is very eager for diet and initially very disappointed at potential not being discharged to home but given lengthy time of insulin drip need discussed importance of making sure that blood sugars are appropriate, electrolytes corrected and the patient does not return into DKAto which she is amenable. Patient denies fevers, chills, nausea, emesis, abdominal pain, chest pain or dyspnea. Objective Data Objective Data Vital Signs: Vital Signs Temp Pulse Resp BP Pulse Ox O2 Del Method 96.7 F L 57 L 18 105/67 99 Room Air 01/13/25 01:00 01/13/25 06:00 01/13/25 06:00 01/13/25 06:00 01/13/25 06:00 01/13/25 06:00 Oxygen Delivery Method Room Air Weight: 153 lb 3.54 oz Body Mass Index (BMI) 28.9 Intake & Output: Intake and Output for Last 24 Hours 01/11/25 01/12/25 01/13/25 23:59 23:59 23:59 Intake Total 1012.69 / 1012.69 5513.29 / 5516.19 1016.1 / 1016.1 Output Total 1700 / 1700 Balance 1012.69 / 1012.69 3813.29 / 3816.19 1016.1 / 1016.1 Lab / Micro Data 01/13/25 04:28 01/13/25 08:07 Labs: Laboratory Results - last 24 hr 01/12/25 05:51: POC Glucose 130 H 01/12/25 06:41: POC Glucose 117 H 01/12/25 08:16: POC Glucose 121 H 01/12/25 09:19: POC Glucose 102 01/12/25 09:30: Sodium 135, Potassium 4.1, Chloride 111 H, Carbon Dioxide 11.8 L, Anion Gap 13, BUN5, Creatinine 0.71, Estim Creat Clear Calc 98.54, Est GFR (MDRD) Non-Af 113, BUN/Creatinine Ratio 6.9 L, Glucose 95, Calcium 8.0 01/12/25 10:08: POC Glucose 76 01/12/25 10:34: POC Glucose 56 L 01/12/25 11:02: POC Glucose 187 H 01/12/25 12:08: POC Glucose 179 H 01/12/25 12:25: Sodium 134, Potassium 4.4, Chloride 105, Carbon Dioxide 11.5 L, Anion Gap 18 H, BUN5, Creatinine 0.73, Estim Creat Clear Calc 95.84, Est GFR (MDRD) Non-Af 110, BUN/Creatinine Ratio 6.8 L, Glucose 206 H, Calcium 7.9 01/12/25 13:09: POC Glucose 190 H 01/12/25 14:06: POC Glucose 208 H 01/12/25 15:05: POC Glucose 212 H 01/12/25 16:14: POC Glucose 202 H 01/12/25 16:20: Sodium 133, Potassium 3.6, Chloride 107, Carbon Dioxide 11.8 L, Anion Gap 15, BUN 5, Creatinine 0.65 L, Estim Creat Clear Calc 107.63, Est GFR (MDRD) Non-Af 118, BUN/Creatinine Ratio 7.3 L, Glucose 206 H, Calcium 7.6 01/12/25 17:13: POC Glucose 152 H 01/12/25 17:59: POC Glucose 155 H 01/12/25 18:53: POC Glucose 150 H 01/12/25 20:02: POC Glucose 176 H 01/12/25 20:13: Sodium 133, Potassium 3.9, Chloride 105, Carbon Dioxide 12.3 L, Anion Gap 16 H, BUN4, Creatinine 0.63 L, Estim Creat Clear Calc 111.05, Est GFR(MDRD) Non-Af 119, BUN/Creatinine Ratio6.5 L, Glucose 183 H, Calcium 7.5 L 01/12/25 21:00: POC Glucose 175 H 01/12/25 22:03: POC Glucose 181 H 01/12/25 23:02: POC Glucose 150 H 01/13/25 00:05: POC Glucose 148 H 01/13/25 00:10: Sodium 135, Potassium 3.0 L, Chloride 107, Carbon Dioxide 14.5 L, Anion Gap 13, BUN3 L, Creatinine 0.50 L, Estim Creat Clear Calc 139.92, Est GFR (MDRD) Non-Af 125, BUN/Creatinine Ratio 6.6 L, Glucose 136 H, Calcium 7.9 01/13/25 01:00: POC Glucose 113 H 01/13/25 02:08: POC Glucose 105 01/13/25 03:01: POC Glucose 93 01/13/25 04:13: POC Glucose 97 01/13/25 04:28: WBC 6.4, RBC 3.94 L, Hgb 11.5 L, Hct 35.2 L, MCV 89.3 D, MCH 29.2, MCHC 32.7 D, RDWStd Deviation 47.9 H, RDW Coeff of Bret 14.6, Plt Count 264, MPV 9.5, Immature Gran % (Auto) 0.200, Neut % (Auto) 51.4, Lymph % (Auto) 36.5, Johnson % (Auto) 9.7, Eos % (Auto) 1.4, Baso % (Auto) 0.8, Absolute Neuts (auto) 3.3, Absolute Lymphs (auto) 2.34, Nucleated RBC % 0, Sodium 136, Potassium 3.1 L,Chloride 108, Carbon Dioxide 14.8 L, Anion Gap 13, BUN 3 L, Creatinine 0.51 L, Estim Creat Clear Calc 137.18, Est GFR (MDRD) Non-Af 125, BUN/Creatinine Ratio 5.3 L, Glucose 97, Calcium 8.0, Phosphorus 1.0 L*, Magnesium1.5, Total Bilirubin 0.46, AST 25, ALT 24, Alkaline Phosphatase 44, Total Protein5.3 L, Albumin 3.4 L, Globulin 2.0 L, Albumin/Globulin Ratio 1.7, b-Hydroxybutyric mmol/L 2.5 H 01/13/25 05:05: POC Glucose 112 H 01/13/25 06:05: POC Glucose 142 H Physical Exam Narrative Physical Examination: General: Awake, alert, oriented x 3 and cooperative, laying in the ICU bed, denies any acute complaints, eager for diet. Skin: Normal color, normal turgor, no icterus, no cyanosis except occasional stage ecchymoses, abrasion. HEENT: AT/NC, EOMI, PERRLA, MMM. Lungs: CTA bilaterally, moderate effort, mild decrease BL bases, no rales, ronchi or wheezing. Heart: Improved, regular rate and rhythm; no gallop, rub audible. Abdomen: Soft, NTTP, ND, mildly hyperactive BS. Extremities: No cyanosis, clubbing, or edema. Neurological: Patient awake, alert, oriented as noted, cognitive function intact; pupils equally reactive to light and accommodation, cranial nerves grossly normal, moving all 4 extremities, no focaldeficits, strength continues to improve, near baseline. Psychiatric: Affect appears mildly fatigued otherwise normal, no acute evidence of depressive or anxiety feelings. Assessment & Plan Assessment/Plan (1) Diabetic keto-acidosis: QUALIFIERS: Diabetes mellitus complication detail: without coma Diabetes mellitus type: type 1 Qualified Code(s): E10.10 - Type 1 diabetes mellitus with ketoacidosis without coma PLAN: Plan The patient is a 34 y/o F w/ PMHx: Overweight, Tobacco use, IDDM, CKD stage IIIaper chart review who presents to the [facility] ED on 01/11/25 with history of nausea, emesis and elevated blood sugars startingmorning on day of presentation with palpitations, racing heart in addition to dyspnea prompting ED evaluation to be cautious. #1. DKA w/ Diabetes mellitus type I: Patient admitted to the ICU initially, maintained on insulin drip initially with serial BMP assessments for IV fluid change needs and electrolyte repletion. Magnesium and phosphorus levels monitored and repleted as needed. 01/13/2025 early a.m. additional bicarb amp x 2administered. 01/13/25 weight AM anion gap closed x 2 and bicarb improved thus patient transitioned to home SC regimen w/ overlap on drip with diet initiation and transition to Accu-Cheks with insulin sliding scale and home scheduled sliding scale regimen additionally. Nutrition consulted for education and teaching. Encouraged diet and insulin regimen compliance. Hemoglobin A1c 10.1%, not markedly improved from her most recent noted 09/30/24 hemoglobin A1c 10.2%. Given clinical improvement jessie plan transition from ICU status to MS status 01/13/2025. #2. Hypokalemia, hypophosphatemia, hypomagnesemia: Admission K+ 3.1, supplementation given per electrolyte protocol, repeat level in AM. Phosphorus 1.0, IV supplementation ordered per electrolyte protocol. Magnesium 1.5, IV supplementation ordered per electrolyte protocol. Will plan repeat magnesium, phosphorus 01/13/2025 afternoon to assure improved. #3. Chronic Kidney Disease Stage IIIa per chart reporting; however, GFR seems to vacillate and currently greater than 100 thus uncertain if this is a true diagnosis: Admission BUN/Cr 5/0.71, GFR 114,repeat level 01/12/25 BUN/creatinine 5/0.71 on repeat given serial BMP, baseline renal function 0.6-0.8 primarily, 01/13/2025 BUN/creatinine 3/0.51, GFR 125, continue to trend. #4. Normocytic anemia: Admission hemoglobin 13, MCV 96.9, baseline has vacillated anywhere from 11-13 range, 01/13/2025 normal 9.5, MCV 89.3. #5. Tobacco Abuse: Encouraged cessation, inpatient consultation per RT, NR if desired. #6. Overweight: Weight loss and lifestyle changes encouraged. #7. GERD: Currently maintained on IV PPI, may transition off to oral option if necessary once transition to a diet. #8. DVT prophylaxis: Lovenox. Charges/Coding Visit Charges Inpatient E&M: 78918 Subs Hosp L3 01/13/25 1336 Cosigner Signature (if applicable): CC: ~ Signed [facility]07-07-2025 Progress note Author Dian Galan [facility] Note Date/Time January 12, 2025 10:54 am [facility] Medical Records Department [address] [place] [address] Progress Note - Hospitalist 01/12/25 07 MR#: [id number] Acct: [id number] Name: BRETT CRUZ Rep #:[id number] : 1990 34 From: Dian Galan MD PCP: Dr. Meena Flowers, DO Status:ADM IN Location: ICU CVICU20 4-1 Reason for Visit Reason for Visit: Diagnoses Elevated white blood cell count, unspecified (01/11/25) Type 1 diabetes mellitus with ketoacidosis without coma (01/11/25) Type 2 diabetes mellitus with ketoacidosis without coma (01/11/25) Overweight (01/11/25) Reaction to severe stress, unspecified (01/11/25) Palpitations (01/11/25) Shortness of breath (01/11/25) Nausea (01/11/25) Tobacco use (01/11/25) Subjective Subjective Patient with no acute events overnight per self and per nursing report. Patientcontinued on insulin drip with gap elevation continued however she notes feelingsignificantly improved since initial ED arrival with no nausea, emesis, abdominal pain or dyspnea. She does feel like she is returning more to her normal baseline. Discussed plan to continue insulin drip until anion gap closedx 2 and bicarb more appropriate to which she is amenable. Discussed plan also for nutrition consult and stressed importance of lifestyle and diet alteration. Patient denies fevers, chills, chest pain. Objective Data Objective Data Vital Signs: Vital Signs Temp Pulse Resp BP Pulse Ox O2 Del Method 97.6 F L 100 16 106/78 100 Room Air 01/12/25 06:00 01/12/25 06:00 01/12/25 06:00 01/12/25 06:00 01/12/25 06:00 01/12/25 06:00 Oxygen Delivery Method Room Air Weight: 153 lb 0.013 oz Body Mass Index (BMI) 28.9 Intake & Output: Intake and Output for Last 24 Hours 01/10/25 01/11/25 01/12/25 23:59 23:59 23:59 Intake Total 1012.69 / 1012.69 3127.11 / 3127.11 Balance 1012.69 / 1012.69 3127.11 / 3127.11 Lab / Micro Data 01/11/25 21:05 01/12/25 09:30 Labs: Laboratory Results - last 24 hr 01/11/25 20:20: Sodium 134, Potassium 5.1, Chloride 96 L, Carbon Dioxide 4.3 L*,Anion Gap 34 H, BUN 7, Creatinine 0.85, Estim Creat Clear Calc 81.25, Est GFR (MDRD) Non-Af 91, BUN/Creatinine Ratio 8.1 L, Glucose 324 H, Calcium 9.7, b-Hydroxybutyric mmol/L 10.5 H 01/11/25 20:37: POC Glucose 286 H 01/11/25 21:05: WBC 12.2 H, RBC 4.45, Hgb 13.0, Hct 43.1, MCV 96.9, MCH 29.2, MCHC 30.2 L, RDW Std Deviation 52.6 H, RDW Coeff of Bret 14.6, Plt Count 365, MPV 10.2, Immature Gran % (Auto) 0.500, Neut % (Auto) 85.3 H, Lymph % (Auto) 9.4 L, Johnson % (Auto) 4.1, Eos % (Auto) 0.0, Baso % (Auto) 0.7, Absolute Neuts (auto) 10.4 H, Absolute Lymphs (auto) 1.14, Nucleated RBC % 0, Urine Color Yellow, Urine Clarity Clear, Urine pH 6.0, Ur Specific [place] 1.030, Urine Protein 30 H, Urine Glucose (UA) 1000 H, Urine Ketones 150 A*, Urine Occult Blood 250 H, Urine Nitrite Negative, Urine Bilirubin Negative, Urine Urobilinogen Normal, Ur Leukocyte Esterase Negative, Urine RBC 0 SEEN, Urine WBC 0 SEEN, Ur Squamous Epith Cells 0-5 SEEN, Urine Bacteria 2+, Urine Mucus 0 SEEN, Urine Test Negative 01/11/25 21:10: Hemoglobin A1c 10.1 H 01/11/25 22:00: POC Glucose 323 H 01/11/25 22:57: POC Glucose 280 H 01/11/25 23:00: Sodium 135, Potassium 5.0, Chloride 102, Carbon Dioxide 4.2 L*, Anion Gap 29 H, BUN 7, Creatinine 0.80, Estim Creat Clear Calc 86.33, Est GFR (MDRD) Non-Af 98, BUN/Creatinine Ratio 8.9 L, Glucose 291 H, Calcium 8.4, Magnesium 1.7 01/11/25 23:45: Serum Osmolality 310 H 01/12/25 01:30: POC Glucose 180 H 01/12/25 02:30: Sodium Cancelled, Potassium Cancelled, Chloride Cancelled, Carbon Dioxide Cancelled, Anion Gap Cancelled, BUN Cancelled, Creatinine Cancelled, Estim Creat Clear Calc Cancelled, Est GFR (MDRD) Non-Af Cancelled, BUN/Creatinine Ratio Cancelled, Glucose Cancelled, Calcium Cancelled, b-Hydroxybutyric mmol/L 5.2 H, TSH Cancelled 01/12/25 02:41: POC Glucose 158 H 01/12/25 04:12: POC Glucose 190 H 01/12/25 04:46: Sodium 136, Potassium 4.2, Chloride 109 H, Carbon Dioxide 6.5 L*, Anion Gap 20 H, BUN 5, Creatinine 0.71, Estim Creat Clear Calc 98.54, Est GFR (MDRD) Non-Af 114, BUN/Creatinine Ratio 7.4 L, Glucose 146 H, Calcium 7.5 L, TSH2.950 01/12/25 05:51: POC Glucose 130 H 01/12/25 06:41: POC Glucose 117 H ABG Data ABG results: ABG 01/11/25 01/12/25 22:17 01:14 Specimen Type BETHANY ART Sample Site Not entered L Radial pH 7.15 L* Bicarbonate Actual 4.6 L Total CO2 5 Base Excess -24 L O2 Saturation 98 O2 % 21.0 ABG pCO2 13.3 L* ABG pO2 135 H Rebeca Test Positive VBG pH 7.02 L* VBG pO2 60 H VBG HCO3 6 L VBG Total CO2 6 L VBG O2 Sat (Calc) 77 H VBG Base Excess -25 L POC Mix VBG pCO2 Pt Tmp 22.4 L O2 Delivery Device Not entered Room Air Vent Mode Not entered Crit Call To/Read Back Yes Yes Blood Gas Notified Whom dr.gallo dr.de Cormier Blood Gas Notified Time 22:19:19 01:16:47 Radiography Diagnostic Testing: Radiology Impression Chest X-Ray 01/11/25 22:38 IMPRESSION: No acute process detected. No significant change from prior exam. Reading [facility] Physical Exam Narrative Physical Examination: General: Awake, alert, oriented x 3 and cooperative, laying in the ICU bed, fatigued but notes she is feeling improved. Skin: Normal color, normal turgor, no icterus, no cyanosis except occasional stage ecchymoses, abrasion. HEENT: AT/NC, EOMI, PERRLA, mildly dry MM. Lungs: CTA bilaterally, moderate effort, mild decrease BL bases, no rales, ronchi or wheezing. Heart: Improved, regular rate and rhythm; no gallop, rub audible. Abdomen: Soft, NTTP, ND, mildly hyperactive BS. Extremities: No cyanosis, clubbing, or edema. Neurological: Patient awake, alert, oriented as noted, cognitive function intact; pupils equally reactive to light and accommodation, cranial nerves grossly normal, moving all 4 extremities, no focal deficits, strength improving,mildly globally creased. Psychiatric: Affect appears fatigued otherwise normal, no acute evidence of depressive or anxiety feelings. Assessment & Plan Assessment/Plan (1) Diabetic keto-acidosis: QUALIFIERS: Diabetes mellitus type: type 1 Diabetes mellitus complication detail: without coma Qualified Code(s): E10.10 - Type 1 diabetes mellitus with ketoacidosis without coma PLAN: Plan The patient is a 34 y/o F w/ PMHx: Overweight, Tobacco use, IDDM, CKD stage IIIaper chart review who presents to the [facility] ED on 01/11/25 with history of nausea, emesis and elevated blood sugars starting morning on day of presentation with palpitations, racing heart in addition to dyspnea prompting ED evaluation to be cautious. #1. DKA w/ Diabetes mellitus type I: Patient admitted to the ICU, maintained oninsulin drip, serial BMP assessments for IV fluid change needs and electrolyte repletion, will continue to trend in addition to mag and Phos with supplementation as needed, once anion gap closed x 2 and bicarb appropriate willplan transition to home SC regimen when gap closed w/ overlap on drip. Nutrition consulted for education and teaching. Encouraged diet and insulin regimen compliance. Hemoglobin A1c 10.1% not markedly improved from her most recent noted 09/30/24 hemoglobin A1c 10.2%. From records concern for noncompliance. #2. Chronic Kidney Disease Stage IIIa per chart reporting; however, GFR seems to vacillate and currently greater than 100 thus uncertain if this is a true diagnosis: Admission BUN/Cr 5/0.71, GFR 114, repeat level 01/12/25 BUN/creatinine 5/0.71 on repeat given serial BMP, baseline renal function 0.6-0.8 primarily, will continue to trend given #1. #3. Tobacco Abuse: Encouraged cessation, inpatient consultation per RT, NR if desired. #4. Overweight: Weight loss and lifestyle changes encouraged. #5. GERD: Currently maintained on IV PPI, may transition off to oral option if necessary once transition to a diet. #6. DVT prophylaxis: Lovenox. Charges/Coding Visit Charges Inpatient E&M: 92864 Subs Hosp L3 01/12/25 1054 <Electronically signed by Dian Galan MD> Cosigner Signature (if applicable): CC: ~ Signed [facility] Work Phone: [phone]) 430-528507-07-2025 Progress note [facility] Medical Records Department [address] [place] [address] Progress Note - Hospitalist 01/12/25 07 MR#: [id number] Acct: [id number] Name: BRETT CRUZ Rep #:[id number] : 1990 34 From: Dian Galan MD PCP: Dr. Meena Flowers, DO Status:ADM IN Location: ICU CVICU20 4-1 Reason for Visit Reason for Visit: Diagnoses Elevated white blood cell count, unspecified (01/11/25) Type 1 diabetes mellitus with ketoacidosis without coma (01/11/25) Type 2 diabetes mellitus with ketoacidosis without coma (01/11/25) Overweight (01/11/25) Reaction to severe stress, unspecified (01/11/25) Palpitations (01/11/25) Shortness of breath (01/11/25) Nausea (01/11/25) Tobacco use (01/11/25) Subjective Subjective Patient with no acute events overnight per self and per nursing report. Patientcontinued on insulindrip with gap elevation continued however she notes feelingsignificantly improved since initial ED arrival with no nausea, emesis, abdominal pain or dyspnea. She does feel like she is returning more to her normal baseline. Discussed plan to continue insulin drip until anion gap closedx 2 and bicarbmore appropriate to which she is amenable. Discussed plan also for nutrition consult and stressed importance of lifestyle and diet alteration. Patient denies fevers, chills, chest pain. Objective Data Objective Data Vital Signs: Vital Signs Temp Pulse Resp BP Pulse Ox O2 Del Method 97.6 F L 100 16 106/78 100 Room Air 01/12/25 06:00 01/12/25 06:00 01/12/25 06:00 01/12/25 06:00 01/12/25 06:00 01/12/25 06:00 Oxygen Delivery Method Room Air Weight: 153 lb 0.013 oz Body Mass Index (BMI) 28.9 Intake & Output: Intake and Output for Last 24 Hours 01/10/25 01/11/25 01/12/25 23:59 23:59 23:59 Intake Total 1012.69 / 1012.69 3127.11 / 3127.11 Balance 1012.69 / 1012.69 3127.11 / 3127.11 Lab / Micro Data 01/11/25 21:05 01/12/25 09:30 Labs: Laboratory Results - last 24 hr 01/11/25 20:20: Sodium 134, Potassium 5.1, Chloride 96 L, Carbon Dioxide 4.3 L*,Anion Gap 34 H, BUN7, Creatinine 0.85, Estim Creat Clear Calc 81.25, Est GFR (MDRD) Non-Af 91, BUN/Creatinine Ratio 8.1 L, Glucose 324 H, Calcium 9.7, b- Hydroxybutyric mmol/L 10.5 H 01/11/25 20:37: POC Glucose 286 H 01/11/25 21:05: WBC 12.2 H, RBC 4.45, Hgb 13.0, Hct 43.1, MCV 96.9, MCH 29.2, MCHC 30.2 L, RDW Std Deviation 52.6 H, RDW Coeff of Bret 14.6, Plt Count 365, MPV 10.2, Immature Gran % (Auto) 0.500, Neut% (Auto) 85.3 H, Lymph % (Auto) 9.4 L, Johnson % (Auto) 4.1, Eos % (Auto) 0.0, Baso % (Auto) 0.7, Absolute Neuts (auto) 10.4 H, Absolute Lymphs (auto) 1.14, Nucleated RBC % 0, Urine Color Yellow, Urine Clarity Clear, Urine pH 6.0, Ur Specific [place] 1.030, Urine Protein 30 H, Urine Glucose (UA) 1000 H, Urine Ketones 150 A*, Urine Occult Blood 250 H, Urine Nitrite Negative, Urine Bilirubin Negative,Urine Urobilinogen Normal, Ur Leukocyte Esterase Negative, Urine RBC 0 SEEN, Urine WBC 0 SEEN, Ur Squamous Epith Cells 0-5 SEEN, Urine Bacteria 2+, Urine Mucus 0 SEEN, Urine Test Negative 01/11/25 21:10: Hemoglobin A1c 10.1 H 01/11/25 22:00: POC Glucose 323 H 01/11/25 22:57: POC Glucose 280 H 01/11/25 23:00: Sodium 135, Potassium 5.0, Chloride 102, Carbon Dioxide 4.2 L*, Anion Gap 29 H, BUN7, Creatinine 0.80, Estim Creat Clear Calc 86.33, Est GFR (MDRD) Non-Af 98, BUN/Creatinine Ratio 8.9 L, Glucose 291 H, Calcium 8.4, Magnesium 1.7 01/11/25 23:45: Serum Osmolality 310 H 01/12/25 01:30: POC Glucose 180 H 01/12/25 02:30: Sodium Cancelled, Potassium Cancelled, Chloride Cancelled, Carbon Dioxide Cancelled, Anion Gap Cancelled, BUN Cancelled, Creatinine Cancelled, Estim Creat Clear Calc Cancelled, Est GFR (MDRD) Non-Af Cancelled, BUN/Creatinine Ratio Cancelled, Glucose Cancelled, Calcium Cancelled, b-Hy droxybutyric mmol/L 5.2 H, TSH Cancelled 01/12/25 02:41: POC Glucose 158 H 01/12/25 04:12: POC Glucose 190 H 01/12/25 04:46: Sodium 136, Potassium 4.2, Chloride 109 H, Carbon Dioxide 6.5 L*, Anion Gap 20 H, BUN 5, Creatinine 0.71, Estim Creat Clear Calc 98.54, Est GFR (MDRD) Non-Af 114, BUN/Creatinine Ratio7.4 L, Glucose 146 H, Calcium 7.5 L, TSH2.950 01/12/25 05:51: POC Glucose 130 H 01/12/25 06:41: POC Glucose 117 H ABG Data ABG results: ABG 01/11/25 01/12/25 22:17 01:14 Specimen Type BETHANY ART Sample Site Not entered L Radial pH 7.15 L* Bicarbonate Actual 4.6 L Total CO2 5 Base Excess -24 L O2 Saturation 98 O2 % 21.0 ABG pCO2 13.3 L* ABG pO2 135 H Rebeca Test Positive VBG pH 7.02 L* VBG pO2 60 H VBG HCO3 6 L VBG Total CO2 6 L VBG O2 Sat (Calc) 77 H VBG Base Excess -25 L POC Mix VBG pCO2 Pt Tmp 22.4 L O2 Delivery Device Not entered Room Air Vent Mode Not entered Crit Call To/Read Back Yes Yes Blood Gas Notified Whom dr.gallo dr.de Cormier Blood Gas Notified Time 22:19:19 01:16:47 Radiography Diagnostic Testing: Radiology Impression Chest X-Ray 01/11/25 22:38 IMPRESSION: No acute process detected. No significant change from prior exam. Reading Location: [facility] Physical Exam Narrative Physical Examination: General: Awake, alert, oriented x 3 and cooperative, laying in the ICU bed, fatigued but notes she is feeling improved. Skin: Normal color, normal turgor, no icterus, no cyanosis except occasional stage ecchymoses, abrasion. HEENT: AT/NC, EOMI, PERRLA, mildly dry MM. Lungs: CTA bilaterally, moderate effort, mild decrease BL bases, no rales, ronchi or wheezing. Heart: Improved, regular rate and rhythm; no gallop, rub audible. Abdomen: Soft, NTTP, ND, mildly hyperactive BS. Extremities: No cyanosis, clubbing, or edema. Neurological: Patient awake, alert, oriented as noted, cognitive function intact; pupils equally reactive to light and accommodation, cranial nerves grossly normal, moving all 4 extremities, no focaldeficits, strength improving,mildly globally creased. Psychiatric: Affect appears fatigued otherwise normal, no acute evidence of depressive or anxiety feelings. Assessment & Plan Assessment/Plan (1) Diabetic keto-acidosis: QUALIFIERS: Diabetes mellitus type: type 1 Diabetes mellitus complication detail: without coma Qualified Code(s): E10.10 - Type 1 diabetes mellitus with ketoacidosis without coma PLAN: Plan The patient is a 34 y/o F w/ PMHx: Overweight, Tobacco use, IDDM, CKD stage IIIaper chart review who presents to the [facility] ED on 01/11/25 with history of nausea, emesis and elevated blood sugars startingmorning on day of presentation with palpitations, racing heart in addition to dyspnea prompting ED evaluation to be cautious. #1. DKA w/ Diabetes mellitus type I: Patient admitted to the ICU, maintained oninsulin drip, serialBMP assessments for IV fluid change needs and electrolyte repletion, will continue to trend in addition to mag and Phos with supplementation as needed, once anion gap closed x 2 and bicarb appropriate willplan transition to home SC regimen when gap closed w/ overlap on drip. Nutrition consulted foreducation and teaching. Encouraged diet and insulin regimen compliance. Hemoglobin A1c 10.1% not markedly improved from her most recent noted 09/30/24 hemoglobin A1c 10.2%. From records concern for non compliance. #2. Chronic Kidney Disease Stage IIIa per chart reporting; however, GFR seems to vacillate and currently greater than 100 thus uncertain if this is a true diagnosis: Admission BUN/Cr 5/0.71, GFR 114,repeat level 01/12/25 BUN/creatinine 5/0.71 on repeat given serial BMP, baseline renal function 0.6-0.8 primarily, will continue to trend given #1. #3. Tobacco Abuse: Encouraged cessation, inpatient consultation per RT, NR if desired. #4. Overweight: Weight loss and lifestyle changes encouraged. #5. GERD: Currently maintained on IV PPI, may transition off to oral option if necessary once transition to a diet. #6. DVT prophylaxis: Lovenox. Charges/Coding Visit Charges Inpatient E&M: 00222 Subs Hosp L3 01/12/25 1054 Cosigner Signature (if applicable): CC: ~ Signed [facility]07-07-2025 History and physical note Author Andrew Cormier [facility] Note Date/Time January 12, 2025 6:41a m [facility] Medical Records Department [address] [place] [address] H&P Exam - Hospitalist 01/11/25 4376 MR#: [id number] Acct: [id number] Name: BRETT CRUZ Rep #:[id number] : 1990 34 From: Andrew Caldwell DO PCP: Dr. Meena Flowers, DO Status:ADM IN Location: ICU CVICU20 4-1 HPI - General General Date of Admission: 01/11/25 Date of Service: 01/11/25 Chief Complaint: Nausea and Vomiting with Hyperglycemia. HPI Narrative BRETT CRUZ, is a 34 F with a past medical history of being overweight; with BMI of 28.2 this admission, tobacco abuse, CKD; stage IIIa and DM-1; uncontrolled with Hyperglycemia on insulin glargine 30U sq BID plus insulin aspart 10U TID AC with recent admission here from September 26, 2024 to September 28, 2024 for treatment of DKA who re-presents to [facility] ER complaining of nausea and vomiting with hyperglycemia. Ms. Cruz reports her symptoms began this morning with nausea and heart racing with SOB. She states her symptoms are consistent with her previous bouts of DKA with patient admitting to recent severe increase in life stress after the of her grandmother which she suspects has triggered her DKA. Her blood glucose was reportedly 244 mg/dL before coming in and she states she has been taking her insulin glargine as prescribed but she did not take insulin lispro. She denies associated vomiting, abdominal pain, fever, chills, chest pain, SOB, cough, dysuria, hematuria, headache or rash. In the ER she was noted to have evidence of DKA with Hyperglycemia of 324 mg/dL, elevated beta-hydroxybutyrate of 10.5 mmol/L and an anion gap of 34 in addition to Leukocytosis of 12.2K present on admission suspected to be due to acute stress response with no obvious evidence of infection. She was then admitted to the ICU for ongoing care for a stay thatis expected to extend beyond 2 midnights. [facility] Medical History (Updated 01/12/25 @ 02:[address] Andrew Cruz, DO) Tobacco abuse Diabetes mellitus type 1, uncontrolled, insulin dependent Stage 3a chronic kidney disease (CKD) Home Medications ?Medication ?Instructions ?Recorded ?Last Taken ?Type insulin aspart U-100 100 unit/mL See Protocol subcut T ID PRN 02/02/22 01/11/25 History (3 mL) subcutaneous pen (Novolog Hyperglycemia FlexPen U-100 Insulin aspart) insulin glargine-yfgn 100 unit/mL 24 unit subcut BID d iabete 01/11/25 01/11/25 History (3 mL) subcutaneous pen potassium chloride 10 mEq 10 meq PO BID 01/11/2501/11 History capsule,extended release Allergy/AdvReac Type Severity Reaction Status Date / Time bee venom protein (honey bee) Allergy Anaphylaxis Verified 01/11/25 19:59 Family History Grandmother Diabetes Hypertension Heart disease Grandfather Diabetes Colon cancer Surgical History Hx of tonsillectomy History of partial hysterectomy Social History household members: children current occupational exposures/hazards: No Smoking Status: Light Smoker (<10/day) alcohol intake: current alcohol intake frequency: holidays/special occasions only substance use type: does not use ROS ROS Narrative Review of Systems: Constitutional: Patient denies fever or chills. Eyes: Patient denies changes in vision or discharge from eyes. ENT: Patient denies runny nose, sore throat or ear pain. Resp: Patient admits to SOB but she denies cough. CV: Patient admits to palpitations but she denies chest pain or LE edema. GI: Patient admits to nausea but she denies vomiting or abdominal pain as per HPI. : Patient denies dysuria or hematuria. MSK: Patient denies arthralgia or myalgias. Skin: Patient denies rash, abscess, wounds or jaundice. Psych: Patient denies symptoms of uncontrolled depression or anxiety. Neuro: Patient denies headache, paresthesias or focal neurologic deficits. Allergy: Patient denies lip swelling, tongue swelling or urticaria. Hematology: Patient denies easy bleeding or easy bruisability. Endocrinology: Patient admits to polyuria and polydipsia but she denies polyphagia or heat/cold intolerance. 14 point ROS otherwise negative except for positives noted above in HPI. Vital Signs Vital Signs Vital Signs: 01/11/25 19:59 01/11/25 20:33 Temperature 98.0 F Temperature Source Temporal Pulse Rate 129 H 96 Respiratory Rate 18 Blood Pressure 134/96 H 120/69 Blood Pressure Mean 108 86 Pulse Ox 98 Oxygen Delivery Method Room Air Room Air Weight Weight: 149 lb Body Mass Index (BMI) 28.1 Results Medical Records Data Attestation: I reviewed the patient's medical records Lab / Micro Data Attestation: I reviewed the patient's lab results. 01/11/25 21:05 01/11/25 23:00 Labs: Laboratory Results - last 24 hr 01/11/25 20:20: Sodium 134, Potassium 5.1, Chloride 96 L, Carbon Dioxide 4.3 L*,Anion Gap 34 H, BUN 7, Creatinine 0.85, Estim Creat Clear Calc 81.25, Est GFR (MDRD) Non-Af 91, BUN/Creatinine Ratio 8.1 L, Glucose 324 H, Calcium 9.7, b-Hydroxybutyric mmol/L 10.5 H 01/11/25 20:37: POC Glucose 286 H 01/11/25 21:05: WBC 12.2 H, RBC 4.45, Hgb 13.0, Hct 43.1, MCV 96.9, MCH 29.2, MCHC 30.2 L, RDW Std Deviation 52.6 H, RDW Coeff of Bret 14.6, Plt Count 365, MPV 10.2, Immature Gran % (Auto) 0.500, Neut % (Auto) 85.3 H, Lymph % (Auto) 9.4 L, Johnson % (Auto) 4.1, Eos % (Auto) 0.0, Baso % (Auto) 0.7, Absolute Neuts (auto) 10.4 H, Absolute Lymphs (auto) 1.14, Nucleated RBC % 0 Imaging [facility] Imaging Services [address] [place] [id number] Chest 1 View (Portable) MR#: [id number] Acct: [id number] Name: BRETT CRUZ Rep #: [id number] : 1990 F 34 From: Keith Huff DO PCP: Dr. Meena Flowers DO Status: ADM IN Study: Chest 1 View (Portable) Date of Exam: 01/11/25 Exam# [id number] Ordering Dr: Andrew Cruz DO PROCEDURE: CHEST 1 VIEW (PORTABLE) 01/11/2025 REASON FOR EXAM: Leukocytosis with diabetic ketoacidosis TECHNIQUE: Frontal view of the chest. COMPARISON: Chest radiograph September 26, 2024 FINDINGS: Hardware: EKG lead wires. Heart: Normal size. Lungs: Clear. Bones: No aggressive bone process. Other: RAD/Chest 1 View (Portable) IMPRESSION: No acute process detected. No significant change from prior exam. Reading [facility] CC: Dr. Andrew Cruz DO; Dr. Meena Flowers DO ~ Emission Specialist: Signed Assessment & Plan Assessment/Plan (1) Diabetic keto-acidosis: QUALIFIERS: Diabetes mellitus complication detail: without coma Diabetes mellitus type: type 1 Qualified Code(s): E10.10 - Type 1 diabetes mellitus with ketoacidosis without coma (2) Nausea: (3) Shortness of breath: (4) Stress: (5) Palpitations: (6) Diabetes mellitus type 1, uncontrolled, insulin dependent: (7) Overweight (BMI 25.0-29.9): (8) Tobacco abuse: (9) Leukocytosis: QUALIFIERS: Leukocytosis type: unspecified Qualified Code(s): D72.829 - Elevated white blood cell count, unspecified PLAN: Plan 1. DKA with Hyperglycemia of 324 mg/dL, elevated beta-hydroxybutyrate of 10.5 mmol/L and an anion gap of 34 present on admission - Admit to ICU for treatment under the DKA protocol. Check BMP every 4 hours. Replace electrolytes per ICU protocol. Check ABG to establish baseline. Give acetaminophen as needed for [id number] (level 1-5/10) pain or fever. Give morphine IV as needed for severe (level 6-10/10) pain. 2. Nausea, SOB and Palpitations due to #1 - CXR read as nonacute. Give ondansetron IV prn nausea and vomiting. 3. Severely increased life-stress after the recent of her grandmother precipitating #1 & #2 - Give prn low-dose benzodiazepines for breakthrough symptoms. 4. DM-1; uncontrolled with Hyperglycemia on insulin glargine 30U sq BID plus insulin aspart 10U TID AC with recent admission here from September 26, 2024 to September 28, 2024 for treatment of DKA complicating #1 - #3 - Noted with patient diana restarted on her previous home regimen once her DKA resolves. 5. Overweight; with BMI of 28.2 this admission adding to the burden of disease outlined from #1 - #4 - Weight loss will be recommended. Check TSH. 6. Tobacco Abuse adding to the burden of disease outlined from #1 - #5 - Tobacco Cessation will be strongly encouraged with Nicotine patch offered to control cravings. 7. Leukocytosis of 12.2K present on admission suspected to be due to acute stress response attributable to #1 - Check CBC daily to follow trend with negative UA, CXR and no overt signs of infection at this time. 8. CKD; stage IIIa - Stable with serum creatinine of 0.85 mg/dL and eGFR of 91 mL/min this admission. 9. DVT/GI prophylaxis - Enoxaparin 40 mg sq daily plus SCD's. Pantoprazole 40 mg IV daily. Total time: Approximately (but not less than) 75 minutes. Charges/Coding Visit Charges Inpatient E&M: 82782 Init Hosp L3 01/12/25 0641 <Electronically signed by Andrew Cruz DO> Cosigner Signature (if applicable): CC: Dr. Andrew Cruz DO; Dr. Meena Flowers DO~ Signed [facility] Work Phone: [phone] 300-742607-07-2025 History and physical note [facility] Medical Records Department [address] [place] [address] H&P Exam - Hospitalist 01/11/25 2158 MR#: [id number] Acct: [id number] Name: BRETT CRUZ Rep #:[id number] : 1990 34 From: Andrew Caldwell DO PCP: Dr. Meena Flowers DO Status:ADM IN Location: ICU CVICU20 4-1 [facility] - General General Date of Admission: 01/11/25 Date of Service: 01/11/25 Chief Complaint: Nausea and Vomiting with Hyperglycemia. HPI Narrative BRETT CRUZ, is a 34 F with a past medical history of being overweight; with BMI of 28.2 this admission, tobacco abuse, CKD; stage IIIa and DM-1; uncontrolled with Hyperglycemia on insulin [id number] sq BID plus insulin aspart 10U TID AC with recent admission here from September 26, 2024 to September 28, 2024 for treatment of DKA who re-presents to [facility] ER complaining of nausea and vomiting with hyperglycemia. Ms. Cruz reports her symptoms began this morning with nausea and heart racing with SOB. She states her symptoms are consistent with her previous bouts of DKA with patient admitting to recent severe increase in life stress after the of her grandmother which she suspects has triggered her DKA. Her blood glucose was reportedly 244 mg/dL before coming in and she states she has been taking her insulin glargine as prescribed but she did not take insulin lispro.She denies associated vomiting, abdominal pain, fever, chills, chest pain, SOB, cough, dysuria, hematuria, headache or rash. In the ER she was noted to have evidence of DKA with Hyperglycemia of 324 mg/dL, elevated beta-hydroxybutyrate of 10.5 mmol/L and an anion gap of 34 in addition to Leukocytosis of 12.2K present on admission suspected to be due to acute stress response with no obvious evidence of infection. She was then admitted to the ICU for ongoing care for a stay thatis expected to extend beyond 2 midnights. [facility] Medical History (Updated 01/12/25 @ 02:[address] Andrew Cruz DO) Tobacco abuse Diabetes mellitus type 1, uncontrolled, insulin dependent Stage 3a chronic kidney disease (CKD) Home Medications ?Medication ?Instructions ?Recorded ?Last Taken ?Type insulin aspart U-100 100 unit/mL See Protocol subcut T ID PRN 02/02/22 01/11/25 History (3 mL) subcutaneous pen (Novolog Hyperglycemia FlexPen U-100 Insulin aspart) insulin glargine-yfgn 100 unit/mL 24 unit subcut BID d iabete 01/11/25 01/11/25 History (3 mL) subcutaneous pen potassium chloride 10 mEq 10 meq PO BID 01/11/2501/11 History capsule,extended release Allergy/AdvReac Type Severity Reaction Status Date / Time bee venom protein (honey bee) Allergy Anaphylaxis Verified 01/11/25 19:59 Family History Grandmother Diabetes Hypertension Heart disease Grandfather Diabetes Colon cancer Surgical History Hx of tonsillectomy History of partial hysterectomy Social History household members: children current occupational exposures/hazards: No Smoking Status: Light Smoker (<10/day) alcohol intake: current alcohol intake frequency: holidays/special occasions only substance use type: does not use ROS ROS Narrative Review of Systems: Constitutional: Patient denies fever or chills. Eyes: Patient denies changes in vision or discharge from eyes. ENT: Patient denies runny nose, sore throat or ear pain. Resp: Patient admits to SOB but she denies cough. CV: Patient admits to palpitations but she denies chest pain or LE edema. GI: Patient admits to nausea but she denies vomiting or abdominal pain as per HPI. : Patient denies dysuria or hematuria. MSK: Patient denies arthralgia or myalgias. Skin: Patient denies rash, abscess, wounds or jaundice. Psych: Patient denies symptoms of uncontrolled depression or anxiety. Neuro: Patient denies headache, paresthesias or focal neurologic deficits. Allergy: Patient denies lip swelling, tongue swelling or urticaria. Hematology: Patient denies easy bleeding or easy bruisability. Endocrinology: Patient admits to polyuria and polydipsia but she denies polyphagia or heat/cold intolerance. 14 point ROS otherwise negative except for positives noted above in HPI. Vital Signs Vital Signs Vital Signs: 01/11/25 19:59 01/11/25 20:33 Temperature 98.0 F Temperature Source Temporal Pulse Rate 129 H 96 Respiratory Rate 18 Blood Pressure 134/96 H 120/69 Blood Pressure Mean 108 86 Pulse Ox 98 Oxygen Delivery Method Room Air Room Air Weight Weight: 149 lb Body Mass Index (BMI) 28.1 Results Medical Records Data Attestation: I reviewed the patient's medical records Lab / Micro Data Attestation: I reviewed the patient's lab results. 01/11/25 21:05 01/11/25 23:00 Labs: Laboratory Results - last 24 hr 01/11/25 20:20: Sodium 134, Potassium 5.1, Chloride 96 L, Carbon Dioxide 4.3 L*,Anion Gap 34 H, BUN7, Creatinine 0.85, Estim Creat Clear Calc 81.25, Est GFR (MDRD) Non-Af 91, BUN/Creatinine Ratio 8.1 L, Glucose 324 H, Calcium 9.7, b- Hydroxybutyric mmol/L 10.5 H 01/11/25 20:37: POC Glucose 286 H 01/11/25 21:05: WBC 12.2 H, RBC 4.45, Hgb 13.0, Hct 43.1, MCV 96.9, MCH 29.2, MCHC 30.2 L, RDW Std Deviation 52.6 H, RDW Coeff of Bret 14.6, Plt Count 365, MPV 10.2, Immature Gran % (Auto) 0.500, Neut% (Auto) 85.3 H, Lymph % (Auto) 9.4 L, Johnson % (Auto) 4.1, Eos % (Auto) 0.0, Baso % (Auto) 0.7, Absolute Neuts (auto) 10.4 H, Absolute Lymphs (auto) 1.14, Nucleated RBC % 0 Imaging [facility] Imaging Services [address] [place], [place] [id number] Chest 1 View (Portable) MR#: [id number] Acct: [id number] Name: BRETT CRUZ Rep #: [id number] : 1990 F 34 From: Keith Huff DO PCP: Dr. Meena Flowers DO Status: ADM IN Study: Chest 1 View (Portable) Date of Exam: 01/11/25 Exam# [id number] Ordering Dr: Andrew Cruz DO PROCEDURE: CHEST 1 VIEW (PORTABLE) 01/11/2025 REASON FOR EXAM: Leukocytosis with diabetic ketoacidosis TECHNIQUE: Frontal view of the chest. COMPARISON: Chest radiograph September 26, 2024 FINDINGS: Hardware: EKG lead wires. Heart: Normal size. Lungs: Clear. Bones: No aggressive bone process. Other: RAD/Chest 1 View (Portable) IMPRESSION: No acute process detected. No significant change from prior exam. Reading Location: [facility] CC: Dr. Andrew Cruz DO; Dr. Meena Flowers DO ~ Emission Specialist: Signed Assessment & Plan Assessment/Plan (1) Diabetic keto-acidosis: QUALIFIERS: Diabetes mellitus complication detail: without coma Diabetes mellitus type: type 1 Qualified Code(s): E10.10 - Type 1 diabetes mellitus with ketoacidosis without coma (2) Nausea: (3) Shortness of breath: (4) Stress: (5) Palpitations: (6) Diabetes mellitus type 1, uncontrolled, insulin dependent: (7) Overweight (BMI 25.0-29.9): (8) Tobacco abuse: (9) Leukocytosis: QUALIFIERS: Leukocytosis type: unspecified Qualified Code(s): D72.829 - Elevated white blood cell count, unspecified PLAN: Plan 1. DKA with Hyperglycemia of 324 mg/dL, elevated beta-hydroxybutyrate of 10.5 mmol/L and an anion gap of 34 present on admission - Admit to ICU for treatment under the DKA protocol. Check BMP every 4hours. Replace electrolytes per ICU protocol. Check ABG to establish baseline. Give acetaminophen as needed for [id number] (level 1-5/10) pain or fever. Give morphine IV as needed for severe (level 6-10/10) pain. 2. Nausea, SOB and Palpitations due to #1 - CXR read as nonacute. Give ondansetron IV prn nausea and vomiting. 3. Severely increased life-stress after the recent of her grandmother precipitating #1 & #2 - Give prn low-dose benzodiazepines for breakthrough symptoms. 4. DM-1; uncontrolled with Hyperglycemia on insulin glargine 30U sq BID plus insulin aspart 10U TIDAC with recent admission here from September 26, 2024 to September 28, 2024 for treatment of DKA complicating #1 - #3 - Noted with patient diana restarted on her previous home regimen once her DKA resolves. 5. Overweight; with BMI of 28.2 this admission adding to the burden of disease outlined from #1 - #4 - Weight loss will be recommended. Check TSH. 6. Tobacco Abuse adding to the burden of disease outlined from #1 - #5 - Tobacco Cessation will be strongly encouraged with Nicotine patch offered to control cravings. 7. Leukocytosis of 12.2K present on admission suspected to be due to acute stress response attributable to #1 - Check CBC daily to follow trend with negative UA, CXR and no overt signs of infection at this time. 8. CKD; stage IIIa - Stable with serum creatinine of 0.85 mg/dL and eGFR of 91 mL/min this admission. 9. DVT/GI prophylaxis - Enoxaparin 40 mg sq daily plus SCD's. Pantoprazole 40 mg IV daily. Total time: Approximately (but not less than) 75 minutes. Charges/Coding Visit Charges Inpatient E&M: 11652 Init Hosp L3 01/12/25 0641 Cosigner Signature (if applicable): CC: Dr. Andrew Cruz DO; Dr. Meena Flowers DO~ Signed [facility]07-07-2025 Discharge summary Author Chato Newberry [facility] Note Date/Time January 11, 2025 10:31 pm [facility] Medical Records Department [address] [place] [address] Emergency Department Summary 01/11/25 MR#: [id number] Acct: [id number] Name: BRETT CRUZ Rep #:[id number] : 1990 34 From: Chato Newberry MD PCP: Dr. Meena Flowers DO Status:ADM IN Location: ICU CVICU20 4-1 HPI <MARTINEZ Sánchez - Last Filed: 01/11/25 21:47> History of Present Illness Chief Complaint: Nausea/Vomiting Narrative Narrative: 34-year-old female with type 1 diabetes presents with nausea, heart racing, and shortness of breath that started this morning. These are the typical symptoms she gets with DKA. She states her blood sugar this morning was good but before coming in it was 244. She takes Lantus 20 units twice a day and took it this morning. She did not eat so she did not take any NovoLog. She normally takes 10 units before each meal. She was admitted for DKA in September 2024. [facility] <MARTINEZ Sánchez - Last Filed: 01/11/25 21:47> [facility] Medical History (Updated 01/11/25 @ 22:[address] Andrew Cruz DO) Tobacco abuse Diabetes mellitus type 1, uncontrolled, insulin dependent Stage 3a chronic kidney disease (CKD) Home Medications ?Medication ?Instructions ?Recorded ?Last Taken ?Type insulin aspart U-100 100 unit/mL See Protocol subcut T ID PRN 02/02/22 01/11/25 History (3 mL) subcutaneous pen (Novolog Hyperglycemia FlexPen U-100 Insulin aspart) insulin glargine-yfgn 100 unit/mL 24 unit subcut BID d iabete 01/11/25 01/11/25 History (3 mL) subcutaneous pen potassium chloride 10 mEq 10 meq PO BID 01/11/2501/11 History capsule,extended release Allergy/AdvReac Type Severity Reaction Status Date / Time bee venom protein (honey bee) Allergy Anaphylaxis Verified 01/11/25 19:59 Family History Grandmother Diabetes Hypertension Heart disease Grandfather Diabetes Colon cancer Surgical History Hx of tonsillectomy History of partial hysterectomy Social History household members: children current occupational exposures/hazards: No Smoking Status: Light Smoker (<10/day) alcohol intake: current alcohol intake frequency: holidays/special occasions only substance use type: does not use ROS <MARTINEZ Sánchez - Last Filed: 01/11/25 21:47> ROS ED ROS Narrative Constitutional: Negative for fever, chills, malaise. CVS: Positive for palpitations. No chest pain. Respiratory: Negative for cough. GI: Positive for nausea. No abdominal pain or vomiting. : Negative for dysuria. EXAM <MARTINEZ Sánchez - Last Filed: 01/11/25 21:47> Physical Exam Narrative Exam Narrative: CONST: Patient sitting in no acute distress. EYES: Normal inspection. NECK: Normal inspection. RESP: No respiratory distress, CTAB. CVS: Tachycardic with regular rhythm, no murmur, no gallop. ABD: Soft and nontender, no guarding or rebound, nondistended. SKIN: Color normal, no rash, warm, dry, intact. EXTREMITIES: Normal appearance, no pedal edema. NEURO: Alert and answering questions appropriately. PSYCH: Normal affect. Const Vital Signs: 01/11/25 19:59 01/11/25 20:33 01/11/25 22:00 Temperature 98.0 F Temperature Source Temporal Pulse Rate 129 H 96 118 H Respiratory Rate 18 Blood Pressure 134/96 H 120/69 143/82 H Blood Pressure Mean 108 86 102 Pulse Ox 98 Oxygen Delivery Method Room Air Room Air 01/11/25 22:07 Temperature 98 F Temperature Source Pulse Rate 112 H Respiratory Rate 22 H Blood Pressure 143/82 H Blood Pressure Mean 102 Pulse Ox 98 Oxygen Delivery Method <Dr. Chato Newberry MD - Last Filed: 01/11/25 22:31> Physical Exam Const Vital Signs: 01/11/25 19:59 01/11/25 20:33 01/11/25 22:00 Temperature 98.0 F Temperature Source Temporal Pulse Rate 129 H 96 118 H Respiratory Rate 18 Blood Pressure 134/96 H 120/69 143/82 H Blood Pressure Mean 108 86 102 Pulse Ox 98 Oxygen Delivery Method Room Air Room Air 01/11/25 22:07 Temperature 98 F Temperature Source Pulse Rate 112 H Respiratory Rate 22 H Blood Pressure 143/82 H Blood Pressure Mean 102 Pulse Ox 98 Oxygen Delivery Method MDM <MARTINEZ Sánchez - Last Filed: 01/11/25 21:47> MDM MDM Narrative Medical decision making narrative: Differential: Diabetic hyperglycemia versus DKA 34-year-old female with type 1 diabetes presents with concern she is in DKA due to nausea, palpitations, shortness of breath. She appears well and nontoxic. She is tachycardic at 129 with otherwise normal vital signs. Lungs are clear. Abdomen soft and nontender. She was ordered IV fluids and labs. Glucose 324. Bicarb is 12.3, anion gap 34. Ketones are positive. Sodium and potassium are normal. EKG is sinus tachycardia without hyperkalemic changes. I will order a venous blood gas, second liter of IV fluids, and an insulin drip. I paged the hospitalist for admission to the ICU for DKA. I have personally performed a face to face assessment of the patient and have reviewed the TARYN Note. I performed a substantive portion of the visit including all aspects of the following. My sheppard findings include: History is remarkable for vague central abdominal pain, nausea and vomiting, shortness of breath, slight increase in your patient and fruity taste to her breath. Patient denies dysuria hematuria. Patient denies diarrhea. Patient denies respiratory symptoms. She denies fever or chills. Exam is remarkable for tachycardia and elevated blood pressure. HEENT exam is remarkable for dry mucosa. Heart is regular without murmur, gallop or rub. Lungs are clear to auscultation. Abdomen is soft nontender. Bowel sounds are slightly diminished. She has no dermatologic lesions noted. Has a nonfocal neurologic exam. Medical Decision Making there is a fruity smell to the room. This may be due toDKA or her perfume. ED D DKA order set was initiated. She will receive a literof normal saline wide open. Her heart rate did improve with IV fluids. Other additions or changes: [None] History & Record Review Discussion w/independent historian: Patient Additional record(s) reviewed:: Prior ED visit and Prior labs Lab Data Attestation: I reviewed the patient's lab results. Labs: Laboratory Results - last 24 hr 01/11/25 01/11/25 01/11/25 20:20 20:37 21:05 WBC 12.2 H RBC 4.45 Hgb 13.0 Hct 43.1 MCV 96.9 MCH 29.2 MCHC 30.2 L RDW Std Deviation 52.6 H RDW Coeff of Bret 14.6 Plt Count 365 MPV 10.2 Immature Gran % (Auto) 0.500 Neut % (Auto) 85.3 H Lymph % (Auto) 9.4 L Johnson % (Auto) 4.1 Eos % (Auto) 0.0 Baso % (Auto) 0.7 Absolute Neuts (auto) 10.4 H Absolute Lymphs (auto) 1.14 Nucleated RBC % 0 Sodium 134 Potassium 5.1 Chloride 96 L Carbon Dioxide 4.3 L* Anion Gap 34 H BUN 7 Creatinine 0.85 Estim Creat Clear Calc 81.25 Est GFR (MDRD) Non-Af 91 BUN/Creatinine Ratio 8.1 L Glucose 324 H Calcium 9.7 b-Hydroxybutyric mmol/L 10.5 H POC Glucose 286 H ABG Data ABG results: ABG 01/11/25 22:17 Specimen Type BETHANY Sample Site Not entered VBG pH 7.02 L* VBG pO2 60 H VBG HCO3 6 L VBG Total CO2 6 L VBG O2 Sat (Calc) 77 H VBG Base Excess -25 L POC Mix VBG pCO2 Pt Tmp 22.4 L O2 Delivery Device Not entered Crit Call To/Read Back Yes Blood Gas Notified Whom Blood Gas Notified Time 22:19:19 EKG Initial EKG: Comments: Sinus tachycardia at 101 bpm Nonspecific T wave changes, no STEMI Prior EKG tracings: available for review Prior: Unchanged <Dr. Chato Newberry MD - Last Filed: 07/06/25 22:31> MDM MDM Narrative Medical decision making narrative: I have personally performed a face to face assessment of the patient and have reviewed the TARYN Note. I performed a substantive portion of the visit including all aspects of the following. My sheppard findings include: History is remarkable for vague central abdominal pain, nausea and vomiting, shortness of breath, slight increase in your patient and fruity taste to her breath. Patient denies dysuria hematuria. Patient denies diarrhea. Patient denies respiratory symptoms. She denies fever or chills. Exam is remarkable for tachycardia and elevated blood pressure. HEENT exam is remarkable for dry mucosa. Heart is regular without murmur, gallop or rub. Lungs are clear to auscultation. Abdomen is soft nontender. Bowel sounds are slightly diminished. She has no dermatologic lesions noted. Has a nonfocal neurologic exam. Medical Decision Making there is a fruity smell to the room. This may be due to DKA or her perfume. ED D DKA order set was initiated. She will receive a liter of normal saline wide open. Her heart rate did improve with IV fluids. Other additions or changes: [None] Lab Data Lab results narrative: Basic metabolic panel reveals a CO2 of 43 with an anion gap of 34. Blood sugar is 286 since patient's blood sugars less than 300 will review order set to determine if she needs to be placed on D5 normal saline as well as the insulin drip. Labs: Laboratory Results - last 24 hr 01/11/25 01/11/25 01/11/25 20:20 20:37 21:05 WBC 12.2 H RBC 4.45 Hgb 13.0 Hct 43.1 MCV 96.9 MCH 29.2 MCHC 30.2 L RDW Std Deviation 52.6 H RDW Coeff of Bret 14.6 Plt Count 365 MPV 10.2 Immature Gran % (Auto) 0.500 Neut % (Auto) 85.3 H Lymph % (Auto) 9.4 L Johnson % (Auto) 4.1 Eos % (Auto) 0.0 Baso % (Auto) 0.7 Absolute Neuts (auto) 10.4 H Absolute Lymphs (auto) 1.14 Nucleated RBC % 0 Sodium 134 Potassium 5.1 Chloride 96 L Carbon Dioxide 4.3 L* Anion Gap 34 H BUN 7 Creatinine 0.85 Estim Creat Clear Calc 81.25 Est GFR (MDRD) Non-Af 91 BUN/Creatinine Ratio 8.1 L Glucose 324 H Calcium 9.7 b-Hydroxybutyric mmol/L 10.5 H POC Glucose 286 H ABG Data Attestation: I personally reviewed and interpreted this ABG as follows: Interpretation: VBG reveals a metabolic acidosis. pH is 7.02, pO2 60, bicarb 6, CO2 6, base excess -25. This is a venous blood gas. ABG results: ABG 01/11/25 22:17 Specimen Type BETHANY Sample Site Not entered VBG pH 7.02 L* VBG pO2 60 H VBG HCO3 6 L VBG Total CO2 6 L VBG O2 Sat (Calc) 77 H VBG Base Excess -25 L POC Mix VBG pCO2 Pt Tmp 22.4 L O2 Delivery Device Not entered Crit Call To/Read Back Yes Blood Gas Notified Whom Blood Gas Notified Time 22:19:19 EKG Initial EKG: Attestation: I personally reviewed and interpreted this EKG as follows: Interpretation: Sinus Tachycardia (Rate is 101. There are some nonseptic ST-T wave changes noted. WA interval is 142 ms. QRS duration 74 ms. QT is 314 ms. Blackfoot is normal.) Management Discussion w/another healthcare provider: Hospitalist (Hospitalist was paged for admission to ICU on insulin drip for DKA) <Dr. 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 Call [facility] ([phone]) or report to the closest Emergency Room. Call 911 if necessary. 01/11/25 7589 <Electronically signed by Chato Newberry MD> Cosigner Signature (if applicable): 01/11/257 <Electronically signed by Meena HENRIQUEZ> CC: Dr. Meena Flowers DO ~ Signed [facility] Work Phone: 1(411) 804-509407-06-2025 Radiology Diagnostic study note [facility] Imaging Services [address] [place] [address] Chest 1 View (Portable) MR#: [id number] Acct: [id number] Name: KANUBRETT Rep #: [id number] : 1990 F 34 From: Pet er Peer PCP: Dr. Meena Flowers DO Status: ADM IN Study:Chest 1 View (Portable) Date of Exam: 01/11/25 Exam# [id number] Ordering Dr: Andrew Durant DO PROCEDURE: CHEST 1 VIEW (PORTABLE) 01/11/2025 REASON FOR EXAM: Leukocytosis with diabetic ketoacidosis TECHNIQUE: Frontal view of the chest. COMPARISON: Chest radiograph September 26, 2024 FINDINGS: Hardware: EKG lead wires. Heart: Normal size. Lungs: Clear. Bones: No aggressive bone process. Other: RAD/Chest 1 View (Portable) IMPRESSION: No acute process detected. No significant change from prior exam. Reading Location[facility] CC: Dr. Andrew Cruz DO; Dr. Meena Flowers DO ~ Emission Specialist: Signed [facility]07-06-2025 Discharge summary [facility] Medical Records Department [address] [place] [address] Emergency Department Summary 01/11/25 MR#: [id number] Acct: [id number] Name: BRETT CRUZ Rep #:[id number] : 1990 34 From: Chato Newberry MD PCP: Dr. Meena Flowers DO Status:ADM IN Location: ICU CVICU20 4-1 HPI History of Present Illness Chief Complaint: Nausea/Vomiting Narrative Narrative: 34-year-old female with type 1 diabetes presents with nausea, heart racing, and shortness of breaththat started this morning. These are the typical symptoms she gets with DKA. She states her blood sugar this morning was good but before coming in it was 244. She takes Lantus 20 units twice a day and took it this morning. She did not eat so she did not take any NovoLog. She normally takes 10 unitsbefore each meal. She was admitted for DKA in September 2024. [facility] Medical History (Updated 01/11/25 @ 22:[address] Andrew Cruz DO) Tobacco abuse Diabetes mellitus type 1, uncontrolled, insulin dependent Stage 3a chronic kidney disease (CKD) Home Medications ?Medication ?Instructions ?Recorded ?Last Taken ?Type insulin aspart U-100 100 unit/mL See Protocol subcut T ID PRN 02/02/22 01/11/25 History (3 mL) subcutaneous pen (Novolog Hyperglycemia FlexPen U-100 Insulin aspart) insulin glargine-yfgn 100 unit/mL 24 unit subcut BID d iabete 01/11/25 01/11/25 History (3 mL) subcutaneous pen potassium chloride 10 mEq 10 meq PO BID 01/11/2501/11 History capsule,extended release Allergy/AdvReac Type Severity Reaction Status Date / Time bee venom protein (honey bee) Allergy Anaphylaxis Verified 01/11/25 19:59 Family History Grandmother Diabetes Hypertension Heart disease Grandfather Diabetes Colon cancer Surgical History Hx of tonsillectomy History of partial hysterectomy Social History household members: children current occupational exposures/hazards: No Smoking Status: Light Smoker (<10/day) alcohol intake: current alcohol intake frequency: holidays/special occasions only substance use type: does not use ROS ROS ED ROS Narrative Constitutional: Negative for fever, chills, malaise. CVS: Positive for palpitations. No chest pain. Respiratory: Negative for cough. GI: Positive for nausea. No abdominal pain or vomiting. : Negative for dysuria. EXAM Physical Exam Narrative Exam Narrative: CONST: Patient sitting in no acute distress. EYES: Normal inspection. NECK: Normal inspection. RESP: No respiratory distress, CTAB. CVS: Tachycardic with regular rhythm, no murmur, no gallop. ABD: Soft and nontender, no guarding or rebound, nondistended. SKIN: Color normal, no rash, warm, dry, intact. EXTREMITIES: Normal appearance, no pedal edema. NEURO: Alert and answering questions appropriately. PSYCH: Normal affect. Const Vital Signs: 01/11/25 19:59 01/11/25 20:33 01/11/25 22:00 Temperature 98.0 F Temperature Source Temporal Pulse Rate 129 H 96 118 H Respiratory Rate 18 Blood Pressure 134/96 H 120/69 143/82 H Blood Pressure Mean 108 86 102 Pulse Ox 98 Oxygen Delivery Method Room Air Room Air 01/11/25 22:07 Temperature 98 F Temperature Source Pulse Rate 112 H Respiratory Rate 22 H Blood Pressure 143/82 H Blood Pressure Mean 102 Pulse Ox 98 Oxygen Delivery Method Physical Exam Const Vital Signs: 01/11/25 19:59 01/11/25 20:33 01/11/25 22:00 Temperature 98.0 F Temperature Source Temporal Pulse Rate 129 H 96 118 H Respiratory Rate 18 Blood Pressure 134/96 H 120/69 143/82 H Blood Pressure Mean 108 86 102 Pulse Ox 98 Oxygen Delivery Method Room Air Room Air 01/11/25 22:07 Temperature 98 F Temperature Source Pulse Rate 112 H Respiratory Rate 22 H Blood Pressure 143/82 H Blood Pressure Mean 102 Pulse Ox 98 Oxygen Delivery Method MDM MDM MDM Narrative Medical decision making narrative: Differential: Diabetic hyperglycemia versus DKA 34-year-old female with type 1 diabetes presents with concern she is in DKA due to nausea, palpitations, shortness of breath. She appears well and nontoxic. She is tachycardic at 129 with otherwise normal vital signs. Lungs are clear. Abdomen soft and nontender. She was ordered IV fluids and labs. Glucose 324. Bicarb is 12.3, anion gap 34. Ketones are positive. Sodium and potassium are normal. EKG is sinus tachycardia without hyperkalemic changes. I will order a venous blood gas, second liter of IV fluids, and an insulin drip. I paged the hospitalist for admission to the ICU for DKA. I have personally performed a face to face assessment of the patient and have reviewed the TARYN Note. I performed a substantive portion of the visit including all aspects of the following. My sheppard findings include: History is remarkable for vague central abdominal pain, nausea and vomiting, shortness of breath, slight increase in your patient and fruity taste to her breath. Patient denies dysuria hematuria. Patient denies diarrhea. Patient denies respiratory symptoms. She denies fever or chills. Exam is remarkable for tachycardia and elevated blood pressure. HEENT exam is remarkable for dry mucosa. Heart is regular without murmur, gallop or rub. Lungs are clear to auscultation. Abdomen is soft nontender. Bowel sounds are slightly diminished. She has no dermatologic lesions noted. Has a nonfocal neurologic exam. Medical Decision Making there is a fruity smell to the room. This may be due toDKA or her perfume. ED D DKA order set was initiated. She will receive a literof normal saline wide open. Her heart ratedid improve with IV fluids. Other additions or changes: [None] History & Record Review Discussion w/independent historian: Patient Additional record(s) reviewed:: Prior ED visit and Prior labs Lab Data Attestation: I reviewed the patient's lab results. Labs: Laboratory Results - last 24 hr 01/11/25 01/11/25 01/11/25 20:20 20:37 21:05 WBC 12.2 H RBC 4.45 Hgb 13.0 Hct 43.1 MCV 96.9 MCH 29.2 MCHC 30.2 L RDW Std Deviation 52.6 H RDW Coeff of Bret 14.6 Plt Count 365 MPV 10.2 Immature Gran % (Auto) 0.500 Neut % (Auto) 85.3 H Lymph % (Auto) 9.4 L Johnson % (Auto) 4.1 Eos % (Auto) 0.0 Baso % (Auto) 0.7 Absolute Neuts (auto) 10.4 H Absolute Lymphs (auto) 1.14 Nucleated RBC % 0 Sodium 134 Potassium 5.1 Chloride 96 L Carbon Dioxide 4.3 L* Anion Gap 34 H BUN 7 Creatinine 0.85 Estim Creat Clear Calc 81.25 Est GFR (MDRD) Non-Af 91 BUN/Creatinine Ratio 8.1 L Glucose 324 H Calcium 9.7 b-Hydroxybutyric mmol/L 10.5 H POC Glucose 286 H ABG Data ABG results: ABG 01/11/25 22:17 Specimen Type BETHANY Sample Site Not entered VBG pH 7.02 L* VBG pO2 60 H VBG HCO3 6 L VBG Total CO2 6 L VBG O2 Sat (Calc) 77 H VBG Base Excess -25 L POC Mix VBG pCO2 Pt Tmp 22.4 L O2 Delivery Device Not entered Crit Call To/Read Back Yes Blood Gas Notified Whom Blood Gas Notified Time 22:19:19 EKG Initial EKG: Comments: Sinus tachycardia at 101 bpm Nonspecific T wave changes, no STEMI Prior EKG tracings: available for review Prior: Unchanged MDM MDM Narrative Medical decision making narrative: I have personally performed a face to face assessment of the patient and have reviewed the TARYN Note. I performed a substantive portion of the visit including all aspects of the following. My sheppard findings include: History is remarkable for vague central abdominal pain, nausea and vomiting, shortness of breath, slight increase in your patient and fruity taste to her breath. Patient denies dysuria hematuria. Patient denies diarrhea. Patient denies respiratory symptoms. She denies fever or chills. Exam is remarkable for tachycardia and elevated blood pressure. HEENT exam is remarkable for dry mucosa. Heart is regular without murmur, gallop or rub. Lungs are clear to auscultation. Abdomen is soft nontender. Bowel sounds are slightly diminished. She has no dermatologic lesions noted. Has a nonfocal neurologic exam. Medical Decision Making there is a fruity smell to the room. This may be due to DKA or her perfume.ED D DKA order set was initiated. She will receive a liter of normal saline wide open. Her heart rate did improve with IV fluids. Other additions or changes: [None] Lab Data Lab results narrative: Basic metabolic panel reveals a CO2 of 43 with an anion gap of 34. Blood sugar is 286 since patient's blood sugars less than 300 will review order set to determine if she needs to be placed on D5 normal saline as well as the insulin drip. Labs: Laboratory Results - last 24 hr 01/11/25 01/11/25 01/11/25 20:20 20:37 21:05 WBC 12.2 H RBC 4.45 Hgb 13.0 Hct 43.1 MCV 96.9 MCH 29.2 MCHC 30.2 L RDW Std Deviation 52.6 H RDW Coeff of Bret 14.6 Plt Count 365 MPV 10.2 Immature Gran % (Auto) 0.500 Neut % (Auto) 85.3 H Lymph % (Auto) 9.4 L Johnson % (Auto) 4.1 Eos % (Auto) 0.0 Baso % (Auto) 0.7 Absolute Neuts (auto) 10.4 H Absolute Lymphs (auto) 1.14 Nucleated RBC % 0 Sodium 134 Potassium 5.1 Chloride 96 L Carbon Dioxide 4.3 L* Anion Gap 34 H BUN 7 Creatinine 0.85 Estim Creat Clear Calc 81.25 Est GFR (MDRD) Non-Af 91 BUN/Creatinine Ratio 8.1 L Glucose 324 H Calcium 9.7 b-Hydroxybutyric mmol/L 10.5 H POC Glucose 286 H ABG Data Attestation: I personally reviewed and interpreted this ABG as follows: Interpretation: VBG reveals a metabolic acidosis. pH is 7.02, pO2 60, bicarb 6, CO2 6, base excess -25. This is a venous blood gas. ABG results: ABG 01/11/25 22:17 Specimen Type BETHANY Sample Site Not entered VBG pH 7.02 L* VBG pO2 60 H VBG HCO3 6 L VBG Total CO2 6 L VBG O2 Sat (Calc) 77 H VBG Base Excess -25 L POC Mix VBG pCO2 Pt Tmp 22.4 L O2 Delivery Device Not entered Crit Call To/Read Back Yes Blood Gas Notified Whom Blood Gas Notified Time 22:19:19 EKG Initial EKG: Attestation: I personally reviewed and interpreted this EKG as follows: Interpretation: Sinus Tachycardia (Rate is 101. There are some nonseptic ST-T wave changes noted. WA interval is 142 ms. QRS duration 74 ms. QT is 314 ms. 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 Call [facility] ([phone]) or report to the closest Emergency Room. Call 911 if necessary. 01/11/252230 Cosigner Signature (if applicable): 01/11/252146 CC: Dr. Meena Flowers, DO ~ Signed [facility]03-23-[facility] Discharge summary Author Bryce Julien [facility] Note Date/Time September 28, 2024 9:1 9am [facility] Medical Records Department [address] [facility] [place] [address] Instructions for Home/Discharge Instructions 09/28/24 0900 MR#: [id number] Acct: [id number] Name: BRETT CRUZ Rep #:[id number] : 1990 33 From: Bryce vega MD PCP: Dr. Meena Flowers, Status:ADM IN Discharge Instructions Diet Discharge Diet: [...] Order can be placed): Home, Self Care 09/28/24918<Electronically signed by Bryce Julien MD>Bryce Julien MD CC: Dr. Meena Flowers DO; Dr. Maggie Reed MD ~ Signed [facility] Work Phone: 1(341) 422-487003-23-2025 Discharge summary [facility] Medical Records Department [address] [place] [id number] Instructions for Home/Discharge Instructions 09/28/24 09 MR#: [id number] Acct: [id number] Name: BRETT CRUZ Rep #:[id number] : 1990 33 From: Bryce vega MD [...] DO; Dr. Maggie Reed MD ~ Signed [facility]03-23-2025 Progress note Author [facility] Note Date/Time September 28, 2024 1:0 6am [facility] Medical Records Department [address] [place] [address] Progress Note - Hospitalist 09/28/24104 MR#: [id number] Acct: [id number] Name: BRETT CRUZ Rep #:[id number] : 1990 33 From: Dian Galan MD PCP: Dr. Meena Flowers DO Status:ADM IN Location: ICU CVICU20 2-1 Hospitalist Note Patient with AG closed x 2, episodes of symptomatic hypoglycemia now, will d/c drip, allow ADA diet, change to accu checks w/ ISS, restart longacting in AM since hypoglycemia present if appropriate. 09/28/24105 <Electronically signed by Dian Galan MD> Cosigner Signature (if applicable): CC: ~ Signed [facility] Work Phone: 1(465) 849-662803-23-2025 Progress note [facility] Medical Records Department [address] [place] [address] Progress Note - Hospitalist 09/28/245 MR#: [id number] Acct: [id number] Name: BRETT CRUZ Rep #:[id number] : 1990 33 From: Dian Galan MD PCP: Dr. Meena Flowers, DO Status:ADM IN Location: ICU CVICU20 2-1 Hospitalist Note Patient with AG closed x 2, episodes of symptomatic hypoglycemia now, will d/c drip, allow ADA diet, change to accu checks w/ ISS, restart longacting in AM since hypoglycemia present if appropriate. 09/28/24105 Cosigner Signature (if applicable): CC: ~ Signed [facility]03-22-2025 Progress note Author Bryce Julien [facility] Note Date/Time September 27, 2024 11: 47am [facility] Medical Records Department [address] [place] [address] Progress Note - Hospitalist 09/27/24 1143 MR#: [id number] Acct: [id number] Name: BRETT CRUZ Rep #:[id number] : 1990 33 From: Bryce vega MD [...] % (Auto) Cancelled, Lymph % (Auto) Cancelled, Johnson % (Auto) Cancelled, Eos % (Auto) Cancelled, [...] Drop Cells Cancelled, Ovalocytes Cancelled, Stomatocytes Cancelled, [place] Bodies Cancelled, [place] Cells Cancelled, Bite Cells Cancelled, Crenated Cell [...] (Auto) 71.7 H, Lymph % (Auto) 17.3L, Johnson % (Auto) 9.7, Eos % (Auto) 0.4, [...] DVT: lovenox Charges/Coding Visit Charges Inpatient E&M: 52628 Subs Hosp L2 09/27/24 1147 <Electronically signed by Bryce Julien MD> Cosigner Signature (if applicable): CC: ~ Signed [facility] Work Phone: 1(129) 699-230503-22-2025 Progress note [facility] Medical Records Department [address] [place] [address] Progress Note - Hospitalist 09/27/24 1143 MR#: [id number] Acct: [id number] Name: BRETT CRUZ Rep #:[id number] : 1990 33 From: Bryce vega MD [...] % (Auto) Cancelled, Lymph % (Auto) Cancelled, Johnson % (Auto) Cancelled, Eos % (Auto) Cancelled, [...] Drop Cells Cancelled, Ovalocytes Cancelled, Stomatocytes Cancelled, [place] Bodies Cancelled, [place] Cells Cancelled, Bite Cells Cancelled, Crenated Cell [...] (Auto) 71.7 H, Lymph % (Auto) 17.3L, Johnson % (Auto) 9.7, Eos % (Auto) 0.4, [...] DVT: lovenox Charges/Coding Visit Charges Inpatient E&M: 93189 Subs Hosp L2 09/27/24 1147 Cosigner Signature (if applicable): CC: ~ Signed [facility]03-21-2025 Discharge summary Author Aba Murguia [facility] Note Date/Time September 26, 2024 4:3 4pm [facility] Medical Records Department [address] [place] [address] Emergency Department Summary 09/26/24 MR#: [id number] Acct: [id number] Name: BRETT CRUZ Rep #:[id number] : 1990 33 From: Aba Murguia MD [...] andis back to normal and feels fine. [facility] Medical History Tobacco abuse Stage 3a chronic [...] (Auto) 68.9 Lymph % (Auto) 13.3 L Johnson % (Auto) 4.4 Eos % (Auto) 12.0 [...] Color Urine Clarity Urine pH Ur Specific [place] Urine Protein Urine Glucose (UA) Urine Ketones [...] (Auto) Neut % (Auto) Lymph % (Auto) Johnson % (Auto) Eos % (Auto) Baso % (Auto) Absolute Neuts (auto) Absolute Lymphs (auto) Nucleated RBC % Platelet Estimate Sodium Potassium Chloride Cancelled Carbon Dioxide 5.7 L* Cancelled Anion Gap 35 H Cancelled BUN 10 Creatinine Estim Creat Clear Calc Est GFR (MDRD) Non-Af BUN/Creatinine Ratio Glucose Calcium b-Hydroxybutyric mmol/L Urine Color Urine Clarity Urine pH Ur Specific [place] Urine Protein Urine Glucose (UA) Urine Ketones [...] (Auto) Neut % (Auto) Lymph % (Auto) Johnson % (Auto) Eos % (Auto) Baso % (Auto) Absolute Neuts (auto) Absolute Lymphs (auto) Nucleated RBC % Platelet Estimate Sodium Potassium Chloride Carbon Dioxide Anion Gap BUN Cancelled Creatinine 0.84 Cancelled Estim Creat Clear Calc 83.54 Cancelled Est GFR (MDRD) Non-Af 93 BUN/Creatinine Ratio Glucose Calcium b-Hydroxybutyric mmol/L Urine Color Urine Clarity Urine pH Ur Specific [place] Urine Protein Urine Glucose (UA) Urine Ketones [...] (Auto) Neut % (Auto) Lymph % (Auto) Johnson % (Auto) Eos % (Auto) Baso % (Auto) Absolute Neuts (auto) Absolute Lymphs (auto) Nucleated RBC % Platelet Estimate Sodium Potassium Chloride Carbon Dioxide Anion Gap BUN Creatinine Estim Creat Clear Calc Est GFR (MDRD) Non-Af Cancelled BUN/Creatinine Ratio 12.0 Cancelled Glucose 339 H Cancelled Calcium 9.3 b-Hydroxybutyric mmol/L Urine Color Urine Clarity Urine pH Ur Specific [place] Urine Protein Urine Glucose (UA) Urine Ketones [...] (Auto) Neut % (Auto) Lymph % (Auto) Johnson % (Auto) Eos % (Auto) Baso % (Auto) Absolute Neuts (auto) Absolute Lymphs (auto) Nucleated RBC % Platelet Estimate Sodium Potassium Chloride Carbon Dioxide Anion Gap BUN Creatinine Estim Creat Clear Calc Est GFR (MDRD) Non-Af BUN/Creatinine Ratio Glucose Calcium Cancelled b-Hydroxybutyric mmol/L 9.5 Urine Color Yellow Urine Clarity Clear Urine pH 5.0 Ur Specific [place] 1.030 Urine Protein 100 H Urine Glucose [...] No visible acute cardiopulmonary findings Reading Location: [facility] Rhythm Strip Rhythm Strip: Sinus Tach Rate: 112 Ectopy: None EKG Initial EKG: Attestation: I personally reviewed and interpreted this EKG as follows: Interpretation: No Acute Injury Pattern, Sinus Tachycardia and Non-Specific ST Changes Management Discussion w/another healthcare provider: Hospitalist Critical Care Time Critical Care Time: Yes Critical care time (excluding procedures): 30-74 minutes (32 min), Including time spent:, Discussing w/Patient &/or Family/Concrete Boom Pump Operator, Discussing w/Consultants, Arranging Admission or Transfer and Performing Direct Patient Care at Bedside Discharge Plan Dx/Rx/DC Orders Clinical Impression: DKA (diabetic ketoacidosis) Disposition Disposition: Acute Care Hospital [facility] Discharge Date/Time: 09/26/24 12:19 What to do if you have Problems For any increased pain, shortness of breath, bleeding, nausea or vomiting, chestpain, or any unexpected problems, contact your Primary Care Provider. Call [facility] ([phone]) or report to the closest Emergency Room. Call 911 if necessary. 09/26/24 1634 <Electronically signed by Aba Murguia MD> Cosigner Signature (if applicable): CC: Dr. Meena Flowers, DO ~ Signed [facility] Work Phone: 1(366) 825-604503-21-2025 Consult note Author Dino Hernandez [facility] Note Date/Time September 26, 2024 4:0 8pm [facility] Medical Records Department [address] [place] [address] Consultation - Special Procedure Technologist 09/26/24 1602 MR#: [id number] Acct: [id number] Name: BRETT CRUZ Rep #:[id number] : 1990 33 From: Dino Hernandez MD PCP: Dr. Meena Flowers, DO Status:ADM IN Location: ICU CVICU20 2-1 HPI Consult Data Date of Consult: 09/26/24 HPI Narrative HPI Narrative: BRETT CRUZ, is a 33yo DM2 with last A1C [...] 11:59 23:59 Intake Total / Balance / I&O: Total Stay 3 09/26/24 09:27 thru [...] Enoxaparin 40 Mg/0.4 Ml Syringe SC DAILY [facility] Dextrose 250 mls @ 999 mls/hr 09/26/24 12:38 Dextrose 10%-Water IV .Q16M PRN Hypoglycemic Protocol Protocol Insulin Human Lispro 100 unit/ 100 mls @ 6.849 mls/hr 09/26/24 12:38 Sodium Chloride CONT INF .[id number] JAC Protocol Dextrose/Sodium Chloride 1,000 mls @ [...] (Auto) 68.9, Lymph % (Auto) 13.3 L, Johnson % (Auto) 4.4, Eos % (Auto) 12.0 [...] Clarity Clear, Urine pH 5.0, Ur Specific [place] 1.030, Urine Protein 100 H, Urine Glucose [...] No visible acute cardiopulmonary findings Reading Location: [facility] Assessment and Plan . Assessment and [...] encounter was done via Telemedicine 09/26/24 1608 <Electronically signed by Dino Hernandez MD> Cosigner Signature (if applicable): CC: Dr. Meena Flowers, DO~ Signed [facility] Work Phone: 1(674) 253-889703-21-2025 History and physical note Author Maggie Reed [facility] Note Date/Time September 26, 2024 3:5 7pm [facility] Medical Records Department [address] [place] [address] History & Physical Exam 09/26/24 1049 MR#: [id number] Acct: [id number] Name: BRETT CRUZ Rep #:[id number] : 1990 33 From: Maggie Reed MD PCP: Dr. Meena Flowers, DO Status:ADM IN Location: ICU CVICU20 2-1 HPI - General General Date of Admission: 09/26/24 Date of Service: 09/26/24 HPI Narrative BRETT CRUZ, is a 33 F with a PMH [...] be managed for DKA and probable UTI [facility] Medical History Tobacco abuse Stage 3a [...] no sensory deficits noted Coordination / Balance: aokmkr-gw-qegv test normal Motor Exam: general weakness Psych [...] Clarity Clear, Urine pH 5.0, Ur Specific [place] 1.030, Urine Protein 100 H, Urine Glucose [...] prophylaxis: lovenox Charges/Coding Visit Charges Inpatient E&M: 49955 Init Hosp L3 09/26/24 6554 <Electronically signed by Maggie Reed MD> Cosigner Signature (if applicable): CC: Dr. Meena Flowers DO; Dr. Maggie Reed MD~ Signed [facility] Work Phone: 1(524) 723-849003-21-2025 Discharge summary [facility] Medical Records Department [address] [place] [address] Emergency Department Summary 09/26/24 MR#: [id number] Acct: [id number] Name: BRETT CRUZ Rep #:[id number] : 1990 33 From: Aba Murguia MD PCP: Dr. Meena Flowers DO Status:ADM [...] andis back to normal and feels fine. [facility] Medical History Tobacco abuse Stage 3a chronic [...] (Auto) 68.9 Lymph % (Auto) 13.3 L Johnson % (Auto) 4.4 Eos % (Auto) 12.0 [...] Color Urine Clarity Urine pH Ur Specific [place] Urine Protein Urine Glucose (UA) Urine Ketones [...] (Auto) Neut % (Auto) Lymph % (Auto) Johnson % (Auto) Eos % (Auto) Baso % (Auto) Absolute Neuts (auto) Absolute Lymphs (auto) Nucleated RBC % Platelet Estimate Sodium Potassium Chloride Cancelled Carbon Dioxide 5.7 L* Cancelled Anion Gap 35 H Cancelled BUN 10 Creatinine Estim Creat Clear Calc Est GFR (MDRD) Non-Af BUN/Creatinine Ratio Glucose Calcium b-Hydroxybutyric mmol/L Urine Color Urine Clarity Urine pH Ur Specific [place] Urine Protein Urine Glucose (UA) Urine Ketones [...] (Auto) Neut % (Auto) Lymph % (Auto) Johnson % (Auto) Eos % (Auto) Baso % (Auto) Absolute Neuts (auto) Absolute Lymphs (auto) Nucleated RBC % Platelet Estimate Sodium Potassium Chloride Carbon Dioxide Anion Gap BUN Cancelled Creatinine 0.84 Cancelled Estim Creat Clear Calc 83.54 Cancelled Est GFR (MDRD) Non-Af 93 BUN/Creatinine Ratio Glucose Calcium b-Hydroxybutyric mmol/L Urine Color Urine Clarity Urine pH Ur Specific [place] Urine Protein Urine Glucose (UA) Urine Ketones [...] (Auto) Neut % (Auto) Lymph % (Auto) Johnson % (Auto) Eos % (Auto) Baso % (Auto) Absolute Neuts (auto) Absolute Lymphs (auto) Nucleated RBC % Platelet Estimate Sodium Potassium Chloride Carbon Dioxide Anion Gap BUN Creatinine Estim Creat Clear Calc Est GFR (MDRD) Non-Af Cancelled BUN/Creatinine Ratio 12.0 Cancelled Glucose 339 H Cancelled Calcium 9.3 b-Hydroxybutyric mmol/L Urine Color Urine Clarity Urine pH Ur Specific [place] Urine Protein Urine Glucose (UA) Urine Ketones [...] (Auto) Neut % (Auto) Lymph % (Auto) Johnson % (Auto) Eos % (Auto) Baso % (Auto) Absolute Neuts (auto) Absolute Lymphs (auto) Nucleated RBC % Platelet Estimate Sodium Potassium Chloride Carbon Dioxide Anion Gap BUN Creatinine Estim Creat Clear Calc Est GFR (MDRD) Non-Af BUN/Creatinine Ratio Glucose Calcium Cancelled b-Hydroxybutyric mmol/L 9.5 Urine Color Yellow Urine Clarity Clear Urine pH 5.0 Ur Specific [place] 1.030 Urine Protein 100 H Urine Glucose [...] No visible acute cardiopulmonary findings Reading Location: [id number] Rhythm Strip Rhythm Strip: Sinus Tach Rate: 112 Ectopy: None EKG Initial EKG: Attestation: I personally reviewed and interpreted this EKG as follows: Interpretation: No Acute Injury Pattern, Sinus Tachycardia and Non-Specific ST Changes Management Discussion w/another healthcare provider: Hospitalist Critical Care Time Critical Care Time: Yes Critical care time (excluding procedures): 30-74 minutes (32 min), Including time spent:, Discussing w/Patient &/or Family/Concrete Boom Pump Operator, Discussing w/Consultants, Arranging Admission or Transfer and Performing Direct Patient Care at Bedside Discharge Plan Dx/Rx/DC Orders Clinical Impression: DKA (diabetic ketoacidosis) Disposition Disposition: Acute Care Hospital [facility] Discharge Date/Time: 09/26/24 12:19 What to do if you have Problems For any increased pain, shortness of breath, bleeding, nausea or vomiting, chestpain, or any unexpected problems, contact your Primary Care Provider. Call [facility] ([phone]) or report tothe closest Emergency Room. Call 911 if necessary. 09/26/24 1634 Cosigner Signature (if applicable): CC: Dr. Meena Flowers DO ~ Signed [facility]03-21-2025 Consult note [facility] Medical Records Department [address] [facility] [place] [address] Consultation - Special Procedure Technologist 09/26/24 1602 MR#: [id number] Acct: [id number] Name: BRETT CRUZ Rep #:[id number] : 1990 33 From: Dino Hernandez MD PCP: Dr. Meena Flowers, DO Status:ADM IN Location: ICU CVICU20 2-1 HPI Consult Data Date of Consult: 09/26/24 HPI Narrative HPI Narrative: BRETT CRUZ, is a 33yo DM2 with last A1C [...] 23:59 11:59 23:59 Intake Total / Balance I&O: Total Stay 3 09/26/24 09:27 [...] Enoxaparin 40 Mg/0.4 Ml Syringe SC DAILY [facility] Dextrose 250 mls @ 999 mls/hr 09/26/24 12:38 Dextrose 10%-Water IV .Q16M PRN Hypoglycemic Protocol Protocol Insulin Human Lispro 100 unit/ 100 mls @ 6.849 mls/hr 09/26/24 12:38 Sodium Chloride CONT INF .[id number] JAC Protocol Dextrose/Sodium Chloride 1,000 mls @ 150 mls/hr 09/26/24 15:15 09/26/24 15:19 IV 150 mls/hr .Q6H40M JAC Administration Ceftriaxone Sodium 1 gm in 50 mls @ 100 mls/hr 09/26/24 15:55 Rocephin IV Q24 [facility] Insulin Glargine 24 unit 09/26/24 15:27 Insulin Glargine-Yfgn 100 Unit/Ml Pen SC DAILY [facility] Ondansetron HCl 4 mg 09/26/24 12:38 Ondansetron [...] (Auto) 68.9, Lymph % (Auto) 13.3 L, Johnson % (Auto) 4.4, Eos % (Auto) 12.0 H, Baso % (Auto) 0.9,Absolute Neuts (auto) 10.0 H, Absolute Lymphs (auto) 1.92, Nucleated RBC % 0, Platelet [employer]imateSLT INC, Sodium 134 03/21/25 09:56: Sodium Cancelled, Potassium 4.7 09/26/24 09:56: [...] Clarity Clear, Urine pH 5.0, Ur Specific [place] 1.030, Urine Protein 100 H, Urine Glucose [...] No visible acute cardiopulmonary findings Reading Location: [id number] Assessment and Plan . Assessment and plan: [...] Signature (if applicable): CC: Dr. Meena Flowers, ~ Signed [facility]03-21-2025 History and physical note [facility] Medical Records Department [address] [place] [address] History & Physical Exam 09/26/24 1049 MR#: [id number] Acct: [id number] Name: BRETT CRUZ Rep #:[id number] : 1990 33 From: Maggie Reed MD PCP: Dr. Meena Flowers DO Status:ADM IN Location: ICU CVICU20 2-1 HPI - General General Date of Admission: 09/26/24 Date of Service: 09/26/24 HPI Narrative BRETT CRUZ, is a 33 F with a PMH [...] be managed for DKA and probable UTI [facility] Medical History Tobacco abuse Stage 3a [...] no sensory deficits noted Coordination / Balance: mcxbgd-lp-egly test normal Motor Exam: general weakness Psych [...] Clarity Clear, Urine pH 5.0, Ur Specific [place] 1.030, Urine Protein 100 H, Urine Glucose [...] prophylaxis: lovenox Charges/Coding Visit Charges Inpatient E&M: 57684 Init Hosp L3 09/26/24 6370 Cosigner Signature (if applicable): CC: Dr. Meena Flowers DO; Dr. Maggie Reed MD~ Signed [facility]03-21-2025 Evaluation note* Diagnosis Onset Date Resolution Status Admit Date DKA (diabetic ketoacidosis) acute September 26, 2024 11:04am [facility] Work Phone: 1(848) 216-243203-21-2025 Evaluation note* Diagnosis Onset Date Resolution Status Admit Date DKA (diabetic ketoacidosis) resolved September 26, 2024 11:04am Diabetes mellitus type 1, uncontrolled, insulin dependent acute January 11, 2025 10:21pm Diabetic keto-acidosis acute Ju ly 2024 10:21pm Leukocytosis acute January 11 10:21pm Nausea acute January 11, 2025 10:21pm Nausea & vomiting acute January 10:21pm Overweight (BMI 25.0-29.9) acute January 11, 2025 10:21pm Palpitations acute January 11 10:21pm Shortness of breath acute January 11, 2025 10:21pm Sinus 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 seen on 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 university 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 acute January 11, 2025 1 0:21pm Tobacco abuse acute January 11, 2 025 10:21pm [facility] Work Phone: 1(354) 632-548503-21-2025 Evaluation note* Diagnosis Onset Date Resolution Status Admit Date DKA (diabetic ketoacidosis) resolved September 26, 2024 11:04am Diabetes mellitus type 1, uncontrolled, insulin dependent acute January 11, 2025 10:21pm Diabetic keto-acidosis acute Ju ly 2024 10:21pm Leukocytosis acute January 11 10:21pm Nausea acute January 11, 2025 10:21pm Nausea & vomiting acute January 6t h2024 10:21pm Overweight (BMI 25.0-29.9) acute January 11, 2025 10:21pm Palpitations acute January 11 10:21pm Shortness of breath acute January 11, 2025 10:21pm Sinus tachycardia seen on college or university 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 acute January 11, 2025 1 0:21pm Stress acute January 11, 2025 10:21pm Tobacco abuse acute January 11, 2 025 10:21pm [facility] Work Phone: 1(282) 492-413203-21-2025 Radiology Diagnostic study note [facility] Imaging Services [address] [place], [place] [id number] Chest 1 View (Portable) MR#: [id number] Acct: [id number] Name: BRETT CRUZ Rep #: [id number] : 1990 F 33 From: Simin Honeycutt MD PCP: Dr. Meena Flowers DO Status: REG ER Study:Chest 1 View (Portable) Date of Exam: 09/26/24 Exam# [id number] Ordering Dr: Steff Murguia MD PROCEDURE: CHEST [...] No visible acute cardiopulmonary findings Reading Location: [id number] CC: Dr. Aba Murguia MD; Dr. Meena Flowers DO ~ Emission Specialist: Signed [facility]03-21-2025 [facility]09-28-2024 [facility]11-18-2023 Progress note Author Douglas Serrano [facility] May 26, 2023 12:43pm Note Date/Time May 26, 2023 7:07am [facility] Medical Records Department [address] [place] [address] Progress Note - Hospitalist 05/26/23 0704 MR#: [id number] Acct: [id number] Name: BRETT CRUZ Rep #:[id number] : 1990 32 From: Douglas Serrano DO PCP: Dr. Meena Flowers, DO Status:ADM IN [...] 78.8 H, Lymph % (Auto) 12.4 L, Johnson % (Auto) 7.1, Eos % (Auto) 0.1, [...] Clarity Clear, Urine pH 5.0, Ur Specific [place] 1.025, Urine Protein 30 H, Urine Glucose [...] % (Auto) 67.2, Lymph % (Auto) 19.4, Johnson% (Auto) 10.6 H, Eos % (Auto) 1.4, [...] no surrogate. Charges/Coding Visit Charges Inpatient E&M: 79490 Subs Hosp L2 05/26/23 1223 <Electronically signed by Douglas Serrano DO> Cosigner Signature (if applicable): CC: ~ Signed [facility] Work Phone: 1(265) 623-371011-18-2023 Discharge summary Author Risa Gatica [facility] May 25, 2023 11:39pm Note Date/Time May 25, 2023 5:29pm [facility] Medical Records Department [address] [place] [address] Emergency Department Summary 05/25/23 MR#: [id number] Acct: [id number] Name: BRETT CRUZ Rep #:[id number] : 1990 32 From: Risa Gatica MD PCP: Dr. 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 EKG obtained to evaluate for cardiac arrhythmia/ischemia. 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 Call [facility] ([phone]) or report to the closest Emergency Room. Call 911 if necessary. 05/25/23 0030 <Electronically signed by Risa Gatica MD> Cosigner Signature (if applicable): CC: Dr. Meena Flowers, ~ Signed [facility] Work Phone: 1(316) 883-434011-18-2023 History and physical note Author David Miramontes [facility] May 25, 2023 10:55pm Note Date/Time May 25, 2023 7:38pm [facility] Medical Records Department [address] [place] [address] H&P Exam - Hospitalist 05/25/231936 MR#: [id number] Acct: [id number] Name: BRETT CRUZ Rep #:[id number] : 1990 32 From: David Miramontes MD PCP: Dr. Meena Flowers DO Status:ADM IN Location: ICU CVICU20 1-1 HPI - General General Date of Admission: 05/25/23 Date of Service: 05/25/23 Chief Complaint: Hyperglycemia HPI Narrative BRETT CRUZ, is a 32 F significant history of [...] 78.8 H, Lymph % (Auto) 12.4 L, Johnson % (Auto) 7.1, Eos % (Auto) 0.1, [...] Clarity Clear, Urine pH 5.0, Ur Specific [place] 1.025, Urine Protein 30 H, Urine Glucose [...] no surrogate. Charges/Coding Visit Charges Inpatient E&M: 97962 Init Hosp L3 05/25/23 6331 <Electronically signed by David Miramontes MD> Cosigner Signature (if applicable): CC: Dr. David Miramontes MD; Dr. Meena Flowers DO~ Signed [facility] Work Phone: Discharge summary Author Douglas Serrano [facility] May 26, 2023 1:45pm Note Date/Time May 26, 2023 1:44pm [facility] Medical Records Department [address] [place] [address] Discharge Summary 05/26/23 1342 MR#: [id number] Acct: [id number] Name: BRETT CRUZ Rep #:[id number] : 1990 32 From: Douglas Serrano DO [...] 78.8 H, Lymph % (Auto) 12.4 L, Johnson % (Auto) 7.1, Eos % (Auto) 0.1, [...] Clarity Clear, Urine pH 5.0, Ur Specific [place] 1.025, Urine Protein 30 H, Urine Glucose [...] % (Auto) 67.2, Lymph % (Auto) 19.4, Johnson% (Auto) 10.6 H, Eos % (Auto) 1.4, [...] L 05/26/23 10:11: POC Glucose 235 H 05/26/23 11:06: POC Glucose 177 H 05/26/23 12:01: POC Glucose 153 H Radiography Diagnostic Testing: Radiology Impression Chest X-Ray 05/25/23 17:40 IMPRESSION: No radiographic evidence of acute cardiopulmonary disease. Electronically Signed: Eder Jacobo MD at 18:22 EST Reading Location ID and State: [address] [place] [address] Tel , Service support , D/C Instructions [...] Self Care Charges/Coding Visit Charges Inpatient E&M: 73473 Disch Hosp 05/26/23 1345 <Electronically signed by Douglas Serrano DO> Cosigner Signature (if applicable): CC: Dr. Douglas Serrano DO; Dr. Meena Flowers DO~ Signed [facility] Work Phone: evaluation note* Diagnosis Onset Date Resolution Status Diabetic ketoacidosis acute Hyperkalemia acute Nausea and vomiting acute [facility] Work Phone: Evaluation noteNo assessment information available [facility] Work Phone: evaluation note* Diagnosis Onset Date Resolution Status DKA (diabetic ketoacidosis) acute [facility] Work Phone: evaluation note* Diagnosis Onset Date Resolution Status DKA (diabetic ketoacidosis) acute Tobacco abuse acute [facility] Work Phone: Evaluation note* Diagnosis Onset Date Resolution Status DKA (diabetic ketoacidosis) resolved [facility] Work Phone: Evaluation note* Diagnosis Onset Date Resolution Status Admit Date DKA (diabetic ketoacidosis) acute September 26, 2024 11:04am [facility] Work Phone: [facility] Work Phone: Hospital Discharge instructions Additional Instructions Do sitz baths three times a day. [facility]: Hospital Discharge instructionsAdditional Instructions ADDITIONAL DIAGNOSES/INSTRUCTIONS: #1. DKA w/ Diabetes mellitus type I: --Maintained on insulin drip initially with serial BMP assessments for IV fluid change needs and electrolyte repletion. --Magnesium, potassium, phosphorus levels monitored and repleted as needed. Please have repeat levels obtained outpatient upon follow-up with your primary care physician to assure appropriate. --01/13/2025 early a.m. additional bicarb amp x 2 administered. --01/13/25 weight AM anion gap closed x 2 and bicarb improved thus patient transitioned to home SC regimen w/ overlap on drip with diet initiation and transition to Accu-Cheks with insulin sliding scale and home scheduled sliding scale regimen additionally. --Nutrition consulted for education and teaching with encouraged diet and insulin regimen compliance. --Hemoglobin A1c 10.1%, not markedly improved from her most recent noted 09/30/24 hemoglobin A1c 10.2%. --Please follow-up with your Primary care physician and also establish with Dr. [facility]. #2. Chronic Kidney Disease Stage IIIa per chart reporting; however, GFR seems to vacillate and currently greater than 100 thus uncertain if this is a true diagnosis: --Admission BUN/Cr 5/0.71, GFR 114, repeat level 01/12/25 BUN/creatinine 5/0.71 on repeat given serial BMP, baseline renal function 0.6-0.8 primarily. --01/13/2025 BUN/creatinine 3/0.51, GFR 125, continue to monitor level outpatient and assure that if onset of chronic disease early referral to nephrology is made. Date of [facility]: [facility] Work Phone: Reason for referral (narrative)No reason for referral information [facility] Work Phone: Chief Complaint and Reason [...] Date DKA September 26, 2024 11: 04am Chief Complaint Admit Date DKA September 26, 2024 11: 04am DKA September 27, 2024 11: 43am DKA September 28, 2024 1:0 5am DKA January 11, 2025 10:21 pm Reason for Visit Admit Date DKA (diabetic ketoacidosis) September 26, 2024 11:04am Diabetes mellitus type 1, uncontrolled, insulin dependent January 11, 2025 10:21pm Diabetic keto-acidosis January 11, 2025 10 :21pm Leukocytosis January 11, 2025 10:21 pm Nausea January 11, 2025 10:21 pm Nausea & vomiting January 11, 2025 10:21 pm Overweight (BMI 25.0-29.9) January 11 10:21pm Palpitations January 11, 2025 10:21 pm Shortness of breath January 11, 2025 10:21 pm Sinus tachycardia seen on cardiac monito r January 11, 2025 10:21pm Tobacco abuse January 11, 2025 10:21 pm Chief Complaint Admit Date DKA September 26, 2024 11: 04am DKA September 27, 2024 11: 43am DKA September 28, 2024 1:0 5am DKA January 11, 2025 10:21 pm DKA January 12, 2025 7:12a m DKA January 13, 2025 6:53a m Reason for Visit Admit Date DKA (diabetic ketoacidosis) September 26, 2024 11:04am Diabetes mellitus type 1, uncontrolled, insulin dependent January 11, 2025 10:21pm Diabetic keto-acidosis January 11, 2025 10 :21pm Leukocytosis January 11, 2025 10:21 pm Nausea January 11, 2025 10:21 pm Nausea & vomiting January 11, 2025 10:21 pm Overweight (BMI 25.0-29.9) January 11 10:21pm Palpitations January 11, 2025 10:21 pm Shortness of breath January 11, 2025 10:21 pm Sinus tachycardia seen on cardiac monito r January 11, 2025 10:21pm Stress January 11, 2025 10:21 pm Tobacco abuse January 11, 2025 10:21 pm Family History No Family History Records Found Relationship Condition Age at Onset Recorded Date/T des grandmother Diabetes mellitus Unknown Hypertension Unknown Cardiac disease Unknown grandfather Diabetes mellitus Unknown Malignant neoplasm of colon Unknown Advance Directives No Advanced Directives Records Found Advance Directive Response Recorded Date/ Time Advance Directives No November 19 6:00pm Living Will No February 02, 2022 9:05pm Power of Shotblast Operator No February 02 9:05pm Advance Directive Response Recorded Date/ Time Advance Directives No November 19 5 5:00pm Living Will No May 23, 2 023 12:55am Power of Shotblast Operator No May 23, 2023 12:55am Advance Directive Response Recorded Date/ Time Advance Directives No November 19 5 5:00pm Living Will No May 25, 2 023 5:41pm Power of Shotblast Operator No May 25, 2023 5:41pm Advance Directive Response Recorded Date/ Time Advance Directives No November 19 5 5:00pm Living Will No May 25, 2 023 9:32pm Power of Shotblast Operator No May 25, 2023 9:32pm Advance Directive Response Recorded Date/ Time Advance Directives No November 19 5 5:00pm Living Will No June 05, 2 023 12:53pm Power of Shotblast Operator No June 05, 2023 12:53pm Advance Directive Response Recorded Date/ Time Advance Directives No November 19 5 6:00pm Living Will No September 24, 2023 12:57pm Power of Shotblast Operator No March 18th, 20 24 12:57pm Advance Directive Response Recorded Date/ Time Living Will No September 26, 2024 10:07am Do you have a Healthcare Power of Shotblast Operator? No September 26, 2024 10:07am Advance Directives No November 19 5 6:00pm Advance Directive Response Recorded Date/ Time Living Will No September 26, 2024 12:20pm Do you have a Healthcare Power of Shotblast Operator? No September 26, 2024 12:20pm Advance Directives No November 19 5 6:00pm Advance Directive Response Recorded Date/ Time Living Will No September 26, 2024 12:20pm Do you have a Healthcare Power of Shotblast Operator? No September 26, 2024 12:20pm Do you have a Healthcare Power of Shotblast Operator? No January 11, 2025 8:34pm Advance Directives No November 19 5 6:00pm Advance Directive Response Recorded Date/ Time Living Will No September 26, 2024 12:20pm Do you have a Healthcare Power of Shotblast Operator? No September 26, 2024 12:20pm Do you have a Healthcare Power of Shotblast Operator? No January 12, 2025 12:26am Advance Directives No November 19 5 6:00pm Summary Purpose Additional Source Comments Care [...] Active Member Role Status Dates Dr. Meena lFowers DO Primary Care Provider Active Start: September [...] Other Provide r Active Dr. Douglas Serrano , DO Attending Provider Active Team Status: Inactive Member Role Status Dates Dr. Efrem Lock , DO Attending Provider, Emergency P rovider Active Dr. Meena Flowers DO Primary Care Provider Active Team Status: Inactive Member Role Status Dates Dr. Meena Flowers DO Primary Care Provider Active Dr. Douglas Alvarez , DO Emergency Provider Active Team Status: Inactive Member Role Status Dates Dr. Meena Flowers DO Primary Care Provider Active Dr. Douglas Alvarez , DO Attending Provider, Emergency P rovider Active [...] Attending Provider Active Start: September 26, 2024 Team Status: Active Member Role/Relationship Status Dates Dr. Meena Flowers DO Primary Care Provider Active Team Status: Inactive Member Role/Relationship Status Dates Dr. Meena Flowers DO Primary [...] September 28, 2024 Team Status: Active Member Role/Relationship Status Dates Dr. Meena Flowers DO Primary [...] September 27, 2024 Team Status: Active Member Role/Relationship Status Dates Dr. Meena Flowers DO Primary [...] September 28, 2024 Team Status: Active Member Role/Relationship Status Dates Dr. Meena Flowers DO Primary Care Provider Active Start: January 11, 2025 Dr. Chato Newberry MD Emergency Provider Active Sta rt: January 11, 2025 Dr. Andrew Cruz DO Admit Provider Active Start: January 11, 2025 Dr. Andrew Cruz DO Attending Provider Active Start: January 11, 2025 Team Status: Inactive Member Role/Relationship Status Dates Dr. Meena Flowers DO Primary Care Provider Active Start: January 11, 2025 End: January 13, 2025 Dr. Chato Newberry MD Emergency Provider Active Sta rt: January 11, 2025 End: January 13, 2025 Dr. Andrew Cruz DO Admit Provider Active Start: January 11, 2025 End: January 13, 2025 Dr. Andrew Cruz DO Other Provider Active Start: January 11, 2025 End: January 13, 2025 Dr. Dian Galan MD Attending Provider Active Start: January 11, 2025 End: January 13, 2025 Team Status: Active Member Role/Relationship Status Dates Dr. Meena Flowers DO Primary Care Provider Active Start: January 12, 2025 Dr. Chato Newberry MD Emergency Provider Active Sta rt: January 12, 2025 Dr. Andrew Cruz DO Admit Provider Active Start: January 12, 2025 Dr. Andrew Cruz DO Other Provider Active Start: January 12, 2025 Dr. Dian Galan MD Attending Provider Active Start: January 12, 2025 Dr. Dian Galan MD Other Provider Active St art: January 12, 2025 Team Status: Active Member Role/Relationship Status Dates Dr. Meena Flowers DO Primary Care Provider Active Start: January 13, 2025 Dr. Chato Newberry MD Emergency Provider Active Sta rt: January 13, 2025 Dr. Andrew Cruz DO Admit Provider Active Start: January 13, 2025 Dr. Andrew Cruz DO Other Provider Active Start: January 13, 2025 Dr. Dian Galan MD Attending Provider Active Start: January 13, 2025 Dr. Dian Galan MD Other Provider Active St art: January 13, 2025 Goals (unrecognized section and content) Goals may be documented in a n alternate sectionGoals may be documented in an alternate sectionGoals may be documented in an alternate sectionGoals may be documented in an alternate section INFORMATION SOURCE (unrecogn ized section and content) DATE CREATED AUTHOR 01/23/2025 [facility] FOR RECORDS PERTAINING TO PATIENTS WHO ARE [...] BE BASED ON THE PRIMARY CLINICAL RECORDS. [employer] provides no warranty or guarantee of the accuracy or completeness of information in this document.
[2025-02-13 06:25] LABS: Internal QC Validated? YES +Cl - CLEAR BKGD; Pregnancy, Serum, hCG Quali. NEGATIVE Negative; Record Kit Lot#, Serum Preg. 0000962302
[2025-02-13 07:14] LABS: AST(SGOT) 26 U/L (<=31); Alanine Aminotransfer ALT/SGPT 26 U/L (<=34); Albumin, Serum 4.6 g/dL (3.5-5.0); Alkaline Phosphatase 76 U/L (35-104); Anion Gap 34 (5-15); BUN 9 mg/dL (4-19); BUN/Creat Ratio 11.8 RATIO (10-20); Calcium,Total 9.7 mg/dL (7.6-11.0); Carbon Dioxide 7.6 mmol/L (21.0-32.0); Chloride 94 mmol/L (98-108); Estimated Creatinine Clearance 92.16 ml/min (50-250); Globulin 3.0 g/dL (2.2-4.2); Glucose 309 mg/dL (70-99); Potassium 4.1 mmol/L (3.3-5.1)
--- NOTE | 2025-02-13 07:37 | PCM.HP.STD ---
HPI - General General Date of Admission: 02/13/25 Date of Service: 02/13/25 Chief Complaint: Vomiting, possible DKA HPI Narrative BRETT BOBBY, is a 34 F who presents to the emergency room at [facility] with a chief complaint of vomiting that started this morning along with malaise and possible DKA. Patient has been hospitalized for DKA before. Workup in the emergency room included a chemistry panel which showed a bicarb of 7.6, anion gap was 34, lactic acid was 5.2 and glucose was 309. Patient's white blood cell count was 15.7, urine showed over 100 red blood cells, no bacteria or white cells were noted however. Urine ketones were 150, patient's chest x-ray was unremarkable. Patient was given IV normal saline in the ER and admitted to ICU for DKA, insulin drip was started and labs will be obtained in the ICU. Patient will need a repeat urinalysis due to hematuria. [facility] Medical History Overweight (BMI 25.0-29.9) Tobacco abuse Diabetes mellitus type 1, uncontrolled, insulin dependent Stage 3a chronic kidney disease (CKD) Home Medications ?Medication ?Instructions ?Recorded ?Last Taken ?Type insulin aspart U-100 100 unit/mL See Protocol subcut TID PRN 02/02/22 01/11/25 History (3 mL) subcutaneous pen (Novolog Hyperglycemia FlexPen U-100 Insulin aspart) insulin glargine-yfgn 100 unit/mL 24 unit subcut BID diabete 01/11/25 01/11/25 History (3 mL) subcutaneous pen potassium chloride 10 mEq 10 meq PO BID 01/11/25 01/11/25 History capsule,extended release Allergy/AdvReac Type Severity Reaction Status Date / Time bee venom protein (honey bee) Allergy Anaphylaxis Verified 02/13/25 05:39 Family History Grandmother Diabetes Hypertension Heart disease Grandfather Diabetes Colon cancer Surgical History Hx of tonsillectomy History of partial hysterectomy Social History household members: children current occupational exposures/hazards: No Smoking Status: Light Smoker (<10/day) alcohol intake: current alcohol intake frequency: holidays/special occasions only substance use type: does not use ROS Constitutional Constitutional: Reports fatigue, malaise and weakness; Denies anorexia, change in weight, fever(s) or night sweats Eyes Eyes: Denies blurry vision, change in vision, discharge from eye(s) or eye pain Cardiovascular Cardiovascular: Denies chest pain, claudication, edema or palpitations Respiratory/Chest Respiratory/Chest: Denies cough, hemoptysis, shortness of breath at rest or shortness of breath with exertion Gastrointestinal Gastrointestinal: Reports nausea and vomiting; Denies abdominal pain, constipation, diarrhea, hematemesis, hematochezia or melena Genitourinary Genitourinary: Denies dysuria, hematuria, urinary frequency, urinary hesitancy, urinary incontinence or urinary urgency Musculoskeletal Musculoskeletal: Denies back pain, joint pain, joint stiffness, joint swelling, myalgias or neck pain Neurologic Neurologic: Denies abnormal gait, abnormal speech, dizziness, focal weakness, headache(s), loss of vision, numbness, other visual disturbances, paresthesias, syncope or tingling Psychiatric Psychiatric: Denies anxiety, cognitive impairment, depression, irritability, mood swings or suicidal ideation Endocrine Endocrinology: Denies change in body appearance, cold intolerance, excessive sweating, heat intolerance, polydipsia or polyuria Hematologic/Lymphatic Hematologic/Lymphatic: Denies none, anemia, easy bleeding, easy bruising or lymphadenopathy Allergic/Immunologic Allergic/Immunologic: Denies rhinitis, urticaria, eczemia or asthma Vital Signs Vital Signs Vital Signs: 02/13/25 05:40 02/13/25 05:42 02/13/25 05:43 Temperature 97.9 F Temperature Source Oral Pulse Rate 142 H 143 H Respiratory Rate 24 H 23 H Respiratory Effort Respiratory Pattern Blood Pressure 149/101 H Blood Pressure Mean 117 Pulse Ox 100 100 100 Oxygen Delivery Method Room Air Room Air 02/13/25 05:45 02/13/25 05:45 02/13/25 05:46 Temperature Temperature Source Pulse Rate 141 H Respiratory Rate 21 H Respiratory Effort Normal Respiratory Pattern Normal Blood Pressure 133/95 H 133/95 H Blood Pressure Mean 107 107 Pulse Ox 100 Oxygen Delivery Method 02/13/25 06:00 02/13/25 06:15 02/13/25 06:30 Temperature Temperature Source Pulse Rate 125 H 120 H 120 H Respiratory Rate 27 H 28 H 23 H Respiratory Effort Respiratory Pattern Blood Pressure 109/77 113/73 Blood Pressure Mean 88 85 Pulse Ox 99 Oxygen Delivery Method 02/13/25 06:45 02/13/25 07:00 Temperature Temperature Source Pulse Rate 116 H 120 H Respiratory Rate 27 H 20 H Respiratory Effort Respiratory Pattern Blood Pressure 110/64 115/71 Blood Pressure Mean 78 85 Pulse Ox 99 99 Oxygen Delivery Method Room Air Weight Weight: 67.7 kg Body Mass Index (BMI) 28.2 Physical Exam Const alert, oriented x3 and no apparent distress General Appearance: cooperative, well kempt and well developed Orientation / Consciousness: awake, oriented to person, oriented to place and oriented to time HEENT normocephalic, head/scalp atraumatic, hearing grossly normal bilaterally and moist oral mucous membranes Eyes PERRL, EOMs intact bilaterally and conjunctivae normal Neck supple, no JVD, thyroid normal and no carotid bruits General: trachea midline Resp no retractions, no use of accessory muscles and clear to auscultation bilaterally Resp Narrative: Patient was tachypneic Auscultation: Negative for rales, rhonchi or wheezes Cardio regular rate, regular rhythm, no murmurs, no rub and no gallops GI normal to inspection, nondistended, normoactive bowel sounds, soft to palpation, non-tender and non-distended Extremity no clubbing, cyanosis or edema Skin no rashes or lesions noted General Skin Exam: no breakdown Neuro oriented x3, CN's II-XII intact bilaterally, moves all extremities, no focal motor deficits and no sensory deficits noted Sensorium / Orientation: awake and alert Speech: speech normal Psych affect normal Results Lab / Micro Data 02/13/25 05:50 02/13/25 17:42 Labs: Laboratory Results - last 24 hr 02/13/25 05:43: POC Glucose 304 H 02/13/25 05:50: WBC 15.7 H, RBC 4.62, Hgb 13.7, Hct 43.1, MCV 93.3, MCH 29.7, MCHC 31.8 L, RDW Std Deviation 52.7 H, RDW Coeff of Bret 15.2 H, Plt Count 404, MPV 9.8, Immature Gran % (Auto) 0.500, Neut % (Auto) 69.2, Lymph % (Auto) 23.3, [place] % (Auto) 5.7, Eos % (Auto) 0.4, Baso % (Auto) 0.9, Absolute Neuts (auto) 10.9 H, Absolute Lymphs (auto) 3.67, Nucleated RBC % 0, PT 13.2, INR 1.0, APTT 27.0, Sodium 135, Potassium 4.1, Chloride 94 L, Carbon Dioxide 7.6 L*, Anion Gap 34 H, BUN 9, Creatinine 0.75, Estim Creat Clear Calc 92.16, Est GFR (MDRD) Non-Af 106, BUN/Creatinine Ratio 11.8, Glucose 309 H, Lactic Acid 5.2 H*, Calcium 9.7, Total Bilirubin 0.26, AST 26, ALT 26, Alkaline Phosphatase 76, Total Protein 7.7, Albumin 4.6, Globulin 3.0, Albumin/Globulin Ratio 1.5, Serum , Qual NEGATIVE ABG Data ABG results: ABG 02/13/25 06:01 Specimen Type BETHANY Sample Site Not entered VBG pH 7.26 L VBG pO2 50 H VBG HCO3 12 L VBG Total CO2 12 L VBG O2 Sat (Calc) 80 H VBG Base Excess -16 L POC Mix VBG pCO2 Pt Tmp 25.7 L O2 Delivery Device Room Air Imaging Radiology Impression Chest X-Ray 02/13/25 06:00 IMPRESSION: No acute cardiopulmonary abnormalities. Reading Location: [facility] Assessment & Plan Assessment/Plan (1) DKA (diabetic ketoacidosis): PLAN: Plan 1. Diabetic ketoacidosis-due to poorly controlled type 1 diabetes-patient will be admitted to ICU, insulin drip will be started and the patient will be given additional fluids, labs will be monitored #2 hematuria-etiology unclear, UA will be repeated tomorrow morning Total clinical time spent by myself addressing the patient's medical issues, reviewing all of her data, and collaborating with patient's care team: 55-minutes Charges/Coding Visit Charges Inpatient E&M: 88436 Init Hosp L2
[2025-02-13 08:04] LABS: BETA-HYDROXYBUTYRATE 7.9 mmol/L (0.0-0.3)
[2025-02-13] MEDS: Insulin Lispro 100 UNIT in 0.9% Normal Saline (100mL Bag) 99 ML CONT INF ×2 (08:07→22:30)
[2025-02-13] MEDS: Potassium Chloride 10mEq/100mL 10 MEQ/100 ML IV.SOLN. 100 MEQ IV BOLUS (08:21)
[2025-02-13 09:01] LABS: Magnesium 1.8 mg/dL (1.5-2.2)
[2025-02-13 09:59] LABS: Reflex Lactate? Y
[2025-02-13] MEDS: Dext 5%-0.45% NS 1,000 ML 150 ML IV (10:18)
[2025-02-13 10:57] LABS: Mucous, Urine 0 SEEN /hpf (<or=2+); Squamous Epithelial Cells - UA 0 SEEN /hpf (5-10)
[2025-02-13 11:10] LABS: Color, Urine SEE COMMENT BELOW (Yellow); Glucose, Dipstick 1000 mg/dl (Normal); Leukocyte Esterase-Dipstick Negative /ul (Negative); Nitrite-Dipstick Negative (Negative); Occult Blood-Urine 250 /ul (Negative); Protein-Dipstick 100 mg/dl (Negative); Specific Gravity, Urine 1.025 (1.002-1.030); Urine Bilirubin Dipstick Negative (Negative)
[2025-02-13 11:12] LABS: Red Blood Cells-Urine > 100 SEEN /hpf (0-5)
[2025-02-13 12:35] LABS: Magnesium 1.7 mg/dL (1.5-2.2)
[2025-02-13 12:41] LABS: Anion Gap 23 (5-15); Carbon Dioxide 7.1 mmol/L (21.0-32.0); Chloride 104 mmol/L (98-108); Potassium 4.8 mmol/L (3.3-5.1)
[2025-02-13 15:53] LABS: Anion Gap 15 (5-15); Carbon Dioxide 11.3 mmol/L (21.0-32.0); Chloride 106 mmol/L (98-108); Magnesium 1.7 mg/dL (1.5-2.2); Potassium 4.4 mmol/L (3.3-5.1)
[2025-02-13 18:10] LABS: Anion Gap 20 (5-15); BUN 6 mg/dL (4-19); BUN/Creat Ratio 9.5 RATIO (10-20); Calcium,Total 7.4 mg/dL (7.6-11.0); Carbon Dioxide 10.3 mmol/L (21.0-32.0); Chloride 104 mmol/L (98-108); Estimated Creatinine Clearance 107.71 ml/min (50-250); Glucose 167 mg/dL (70-99); Potassium 3.9 mmol/L (3.3-5.1)
[2025-02-13] MEDS: 0.9% Normal Saline (1000mL) 1,000 ML 50 ML IV (19:50)
[2025-02-13] MEDS: 0.9% Saline Lock 10 ML Syringe IV (21:23)
[2025-02-13] MEDS: Insulin Glargine-YFGN 100 UNIT/ML Pen 24 UNIT SC (21:27)
--- NOTE | 2025-02-13 22:04 | PCM.HOSP.N ---
Hospitalist Note Patient repeat BMP with worsened appearing, AG recurrent elevation, onset N/V. Will transition back to NPO, insulin drip with DKA order set.
[2025-02-13] MEDS: 0.9% Normal Saline 1,000 ML 150 ML IV (22:17)
[2025-02-13 22:41] LABS: Ketone-Dipstick 150 mg/dl (Negative)
--- NOTE | 2025-02-13 23:00 | NURSING ---
Restarting the insulin gtt. This RN contacted pharmacy that the original insulin gtt is still hung up in the room and doesn't till tomorrow at 0730. I asked if I would need a new bag in the morning and Camilo from pharmacy stated if the drip is running it can continue to infuse throughout the expiration time.
[2025-02-14] VITALS (12 sets, daily range): BP systolic 103–128; BP diastolic 70–87; PULSE 72–106; RESP 15–25; TEMP 36.4–36.8; O2SAT 98–100; BMI 29.3
[2025-02-14] MEDS: Dext 5%-0.45% NS 1,000 ML 150 ML IV ×2 (00:03→06:15)
[2025-02-14 01:01] LABS: Magnesium 1.7 mg/dL (1.5-2.2)
[2025-02-14 01:05] LABS: Anion Gap 29 (5-15); BUN 8 mg/dL (4-19); BUN/Creat Ratio 9.9 RATIO (10-20); Calcium,Total 8.2 mg/dL (7.6-11.0); Carbon Dioxide 4.5 mmol/L (21.0-32.0); Chloride 97 mmol/L (98-108); Estimated Creatinine Clearance 84.35 ml/min (50-250); Glucose 360 mg/dL (70-99); Potassium 4.7 mmol/L (3.3-5.1)
[2025-02-14] MEDS: Sodium Bicarbonate 8.4% 50 ML Syringe 50 MEQ IV ×2 (03:04)
[2025-02-14] MEDS: 0.9% Saline Lock 10 ML Syringe IV ×3 (03:04→10:53)
[2025-02-14 03:19] LABS: Anion Gap 21 (5-15); BUN 6 mg/dL (4-19); BUN/Creat Ratio 8.4 RATIO (10-20); Calcium,Total 8.1 mg/dL (7.6-11.0); Chloride 103 mmol/L (98-108); Estimated Creatinine Clearance 90.92 ml/min (50-250); Glucose 245 mg/dL (70-99); Potassium 4.1 mmol/L (3.3-5.1)
[2025-02-14 03:25] LABS: Carbon Dioxide 7.2 mmol/L (21.0-32.0)
[2025-02-14 06:41] LABS: Hematocrit 34.8 % (37-47); Hemoglobin 11.4 g/dL (12.0-15.0); Immature Granulocytes Count 0.040 X10^3/uL (0.0-0.0); Mean Corp Hgb Conc 32.8 g/dL (32-36); Mean Corpuscular Volume 90.4 fL (81-99); Mean Platelet Vol. 9.5 fl (6.2-12.0); NRBC Flagged by Analyzer 0 % (0-5); Platelet Count 289 K/mm3 (150-450); RBC Distribution Width CV 14.7 % (11.6-14.6); RBC Distribution Width SD 49.0 fl (35.1-43.9); Red Blood Count 3.85 M/mm3 (4.2-5.4); White Blood Count 8.3 K/mm3 (4.4-11.0)
[2025-02-14 06:55] LABS: Anion Gap 15 (5-15); BUN 5 mg/dL (4-19); BUN/Creat Ratio 7.7 RATIO (10-20); Calcium,Total 7.6 mg/dL (7.6-11.0); Carbon Dioxide 13.3 mmol/L (21.0-32.0); Chloride 104 mmol/L (98-108); Estimated Creatinine Clearance 102.18 ml/min (50-250); Glucose 209 mg/dL (70-99); Potassium 3.6 mmol/L (3.3-5.1)
[2025-02-14] MEDS: 0.9% Normal Saline (1000mL) 1,000 ML 999 ML IV (08:38)
[2025-02-14 10:20] LABS: Anion Gap 13 (5-15); BUN 5 mg/dL (4-19); BUN/Creat Ratio 7.2 RATIO (10-20); Calcium,Total 7.4 mg/dL (7.6-11.0); Carbon Dioxide 16.0 mmol/L (21.0-32.0); Chloride 105 mmol/L (98-108); Estimated Creatinine Clearance 111.92 ml/min (50-250); Glucose 159 mg/dL (70-99); Potassium 3.4 mmol/L (3.3-5.1)
--- NOTE | 2025-02-14 11:01 | DCINST_ITS ---
Discharge Instructions DC O2, CPAP, BIPAP needs Home O2 Discharge instructions: No Dressing / Incision Discharge Activity: Return to Normal Activity Weight Bearing Status: Full weight bearing Follow Up Care Test Results: Test results from this visit will be discussed in further detail at your follow- up appointment, if applicable. Discharge Plan Admission Admit Date/Time: 02/13/25 07:38 Primary Reason for Your Visit: DKA Attending Provider: Michael Acosta Primary Care Provider: Meena Flowers Discharge Orders/Prescriptions Prescriptions: New insulin aspart U-100 [Novolog FlexPen U-100 Insulin] 100 unit/mL (3 mL) insulin pen 6 unit subcut .tidac Qty: 15 0RF Continued insulin aspart U-100 [Novolog FlexPen U-100 Insulin] 100 unit/mL (3 mL) insulin pen See Protocol SUBCUT TID PRN (Reason: Hyperglycemia) Protocol: 6. Sliding Scale Insulin Custom Condition: mg/dl range Dose/Route: Number of Units Condition: 150-199 Dose/Route: 2 Condition: 200-250 Dose/Route: 4 Condition: 251-300 Dose/Route: 6 Condition: 301-349 Dose/Route: 8 Condition: 350-399 Dose/Route: 10 Condition: 400+ Dose/Route: 12 Protocol Text: Custom Sliding Scale potassium chloride 10 mEq capsule, extended release 10 meq PO BID Changed insulin glargine-yfgn 100 unit/mL (3 mL) Insulin Pen 26 unit subcut BID Qty: 15 0RF Referrals / Follow Up: Meena Flowers DO [Primary Care Provider] - Altaf Kaiser MD [Med Staff - Courtesy Staff] - See Referral Note (as scheduled) Disposition Disposition (needs filled in before D/C Order can be placed): Home, Self Care
--- NOTE | 2025-02-14 11:08 | PCM.DC.SUM ---
Providers Date of Admission: 02/13/25 Date of Discharge: 02/14/25 Primary Care Physician: Dr. Meena Flowers DO Reason For Visit: DKA Diagnosis Discharge Diagnosis (1) DKA (diabetic ketoacidosis): Status: Acute Code(s): E11.10 - Type 2 diabetes mellitus with ketoacidosis without coma Plan 1. Diabetic ketoacidosis-due to poorly controlled type 1 diabetes-patient will be admitted to ICU, insulin drip will be started and the patient will be given additional fluids, labs will be monitored #2 hematuria-etiology unclear, UA will be repeated tomorrow morning Total clinical time spent by myself addressing the patient's medical issues, reviewing all of her data, and collaborating with patient's care team: 55-minutes Medications at Discharge Home Medications insulin aspart U-100 100 unit/mL (3 mL) subcutaneous pen (Novolog FlexPen U-100 Insulin aspart) See Protocol subcut TID PRN Hyperglycemia 02/02/22 potassium chloride 10 mEq capsule,extended release 10 meq PO BID 01/11/25 insulin aspart U-100 100 unit/mL (3 mL) subcutaneous pen (Novolog FlexPen U-100 Insulin aspart) 6 unit (0.06 mL) subcut .tidac #15 mL 02/14/25 insulin glargine-yfgn 100 unit/mL (3 mL) subcutaneous pen 26 unit (0.26 mL) subcut BID diabete #15 mL 02/14/25 Hospital Course Operations None Procedures None Summary of Care Provided Minutes Spent on Discharge: 30 Hospital Course: This 34-year-old white female was seen in the emergency room at [facility] with a chief complaint of vomiting and possibly DKA, patient was hospitalized previously for DKA due to uncontrolled type 1 diabetes. Workup in the emergency room showed the patient's bicarb to be 7.6 with an anion gap of 34, glucose was 309. Urine showed 100 red cells but no bacteria and no white cells. Chest x-ray was unremarkable. Patient was admitted to ICU and placed on an insulin drip, labs were monitored closely. Patient improved during her hospitalization and it was felt the patient was stable for discharge home. On 02/14/2025, patient was seen and examined: On examination she appeared in good health and spirits, she does not appear to be in any distress. Vital signs as documented. Skin warm and dry and without overt rashes. Neck without JVD, thyroid appears normal, trachea is midline, neck is supple. Lungs clear, normal air movement was noted. Heart exam notable for regular rhythm, normal sounds and absence of murmurs, rubs or gallops. Abdomen unremarkable and without evidence of organomegaly, masses, or abdominal aortic enlargement, bowel sounds are present in all 4 quadrants, no abdominal tenderness was noted. Extremities nonedematous, no cyanosis was noted, no clubbing was noted. Neuro: Cranial nerves II through XII are grossly intact, no focal motor deficits were noted, sensation to light touch and pinprick is intact, motor exam 5/5 throughout. Psych: Patient is alert and oriented x3, she does not appear anxious or depressed, she does not appear agitated. Patient was discharged home in stable condition on 02/14/2025. Weight / BMI Weight Weight: 70.5 kg Body Mass Index (BMI) 29.3 ABG / Lab / Microbiology Data 02/14/25 06:20 02/14/25 09:50 Laboratory: Laboratory Results - last 24 hr 02/13/25 08:10: Sodium Cancelled, Potassium Cancelled, Chloride Cancelled, Carbon Dioxide Cancelled, Anion Gap Cancelled 02/13/25 10:47: Urine Color SEE COMMENT BELOW, Urine Clarity Cloudy, Urine pH 5.0, Ur Specific [place] 1.025, Urine Protein 100 H, Urine Glucose (UA) 1000 H, Urine Ketones 150 A*, Urine Occult Blood 250 H, Urine Nitrite Negative, Urine Bilirubin Negative, Urine Urobilinogen Normal, Ur Leukocyte Esterase Negative, Urine RBC > 100 SEEN, Urine WBC 0 SEEN, Ur Squamous Epith Cells 0 SEEN, Urine Bacteria 0 SEEN, Urine Mucus 0 SEEN 02/13/25 11:00: POC Glucose 201 H 02/13/25 11:47: Sodium 134, Potassium 4.8, Chloride 104, Carbon Dioxide 7.1 L*, Anion Gap 23 H, Lactic Acid 1.2, Magnesium 1.7 02/13/25 12:14: POC Glucose 193 H 02/13/25 13:02: POC Glucose 185 H 02/13/25 13:59: POC Glucose 197 H 02/13/25 15:05: Sodium 132 L, Potassium 4.4, Chloride 106, Carbon Dioxide 11.3 L, Anion Gap 15, Magnesium 1.7 02/13/25 16:03: POC Glucose 183 H 02/13/25 17:42: Sodium 134, Potassium 3.9, Chloride 104, Carbon Dioxide 10.3 L, Anion Gap 20 H, BUN 6, Creatinine 0.65 L, Estim Creat Clear Calc 107.71, Est GFR (MDRD) Non-Af 118, BUN/Creatinine Ratio 9.5 L, Glucose 167 H, Calcium 7.4 L 02/13/25 21:25: POC Glucose 327 H 02/13/25 22:20: POC Glucose 339 H 02/13/25 22:25: Sodium 131 L, Potassium 4.7, Chloride 97 L, Carbon Dioxide 4.5 L*, Anion Gap 29 H, BUN 8, Creatinine 0.83, Estim Creat Clear Calc 84.35, Est GFR (MDRD) Non-Af 95, BUN/Creatinine Ratio 9.9 L, Glucose 360 H, Calcium 8.2, Phosphorus 2.8, Magnesium 1.7 02/13/25 23:33: POC Glucose 242 H 02/14/25 00:32: POC Glucose 266 H 02/14/25 01:39: POC Glucose 242 H 02/14/25 02:25: Sodium 131 L, Potassium 4.1, Chloride 103, Carbon Dioxide 7.2 L*, Anion Gap 21 H, BUN 6, Creatinine 0.77, Estim Creat Clear Calc 90.92, Est GFR (MDRD) Non-Af 103, BUN/Creatinine Ratio 8.4 L, Glucose 245 H, Calcium 8.1 02/14/25 02:27: POC Glucose 234 H 02/14/25 03:32: POC Glucose 231 H 02/14/25 04:34: POC Glucose 220 H 02/14/25 05:34: POC Glucose 226 H 02/14/25 06:20: WBC 8.3, RBC 3.85 L, Hgb 11.4 L, Hct 34.8 L, MCV 90.4, MCH 29.6, MCHC 32.8, RDW Std Deviation 49.0 H, RDW Coeff of Bret 14.7 H, Plt Count 289, MPV 9.5, Immature Gran % (Auto) 0.500, Neut % (Auto) 67.0, Lymph % (Auto) 23.6, [place] % (Auto) 7.9, Eos % (Auto) 0.5, Baso % (Auto) 0.5, Absolute Neuts (auto) 5.5, Absolute Lymphs (auto) 1.95, Nucleated RBC % 0, Sodium 133, Potassium 3.6, Chloride 104, Carbon Dioxide 13.3 L, Anion Gap 15, BUN 5, Creatinine 0.69 L, Estim Creat Clear Calc 102.18, Est GFR (MDRD) Non-Af 116, BUN/Creatinine Ratio 7.7 L, Glucose 209 H, Calcium 7.6 02/14/25 06:25: POC Glucose 191 H 02/14/25 07:28: POC Glucose 174 H 02/14/25 08:23: POC Glucose 184 H 02/14/25 09:49: POC Glucose 156 H 02/14/25 09:50: Sodium 134, Potassium 3.4, Chloride 105, Carbon Dioxide 16.0 L, Anion Gap 13, BUN 5, Creatinine 0.63 L, Estim Creat Clear Calc 111.92, Est GFR (MDRD) Non-Af 119, BUN/Creatinine Ratio 7.2 L, Glucose 159 H, Calcium 7.4 L 02/14/25 10:36: POC Glucose 147 H Microbiology: Microbiology 02/13/25 10:47 Urine, Clean Catch Urine Culture - Final Mixed Gram Positive Organisms 02/13/25 06:30 Blood Culture (Wb) - Right Hand Blood Culture - Preliminary No growth in 48 hours. 02/13/25 05:50 Blood Culture (Wb) - Anticubital Right Blood Culture - Preliminary No growth in 48 hours. D/C Instructions Weight Bearing Status: Full weight bearing DC O2, CPAP, BIPAP Needs Home O2 Discharge instructions: No Meaningful Use Info Meaningful Use Meaningful Use Diagnoses (Choose all that apply): None applicable Discharge Plan Admission Admit Date/Time: 02/13/25 07:38 Primary Reason for Your Visit: DKA Attending Provider: Michael Acosta Primary Care Provider: Meena Flowers Discharge Orders/Prescriptions Prescriptions: New insulin aspart U-100 [Novolog FlexPen U-100 Insulin] 100 unit/mL (3 mL) insulin pen 6 unit subcut .tidac Qty: 15 0RF Continued insulin aspart U-100 [Novolog FlexPen U-100 Insulin] 100 unit/mL (3 mL) insulin pen See Protocol SUBCUT TID PRN (Reason: Hyperglycemia) Protocol: 6. Sliding Scale Insulin Custom Condition: mg/dl range Dose/Route: Number of Units Condition: 150-199 Dose/Route: 2 Condition: 200-250 Dose/Route: 4 Condition: 251-300 Dose/Route: 6 Condition: 301-349 Dose/Route: 8 Condition: 350-399 Dose/Route: 10 Condition: 400+ Dose/Route: 12 Protocol Text: Custom Sliding Scale potassium chloride 10 mEq capsule, extended release 10 meq PO BID Changed insulin glargine-yfgn 100 unit/mL (3 mL) Insulin Pen 26 unit subcut BID Qty: 15 0RF Referrals / Follow Up: Meena Flowers DO [Primary Care Provider] - Altaf Kaiser MD [Med Staff - Courtesy Staff] - See Referral Note (as scheduled) Disposition Disposition (needs filled in before D/C Order can be placed): Home, Self Care Charges/Coding Visit Charges Inpatient E&M: 61880 Disch Hosp
== END 2025-02-14 12:45 | disposition home or self-care (01) | DRG 420 ==
LOC: ED 07:37 → ICU 07:56
PROVIDERS: Family Medicine; Admitting Provider Internal Medicine; Emergency Provider Emergency Medicine; PCP Family Medicine; Visit Provider Internal Medicine
DX: E10.10 Type 1 diabetes mellitus with ketoacidosis without coma (principal); F17.200 Nicotine dependence, unspecified, uncomplicated; Z79.4 Long term (current) use of insulin; R31.9 Hematuria, unspecified
CPT/HCPCS: 36415; 71046; 80048; 80051; 80053; 81001; 82010; 82803; 82962; 83605; 83735; 84100; 84703; 85025; 85610; 85730; 87040; 87086; 87088; 93005; 99284; A4216; J2405

== ENCOUNTER 2025-03-20 10:45 | Inpatient (IN) | payer MEDICAID, SELFPAY ==
[2025-03-20] VITALS (21 sets, daily range): BP systolic 117–160; BP diastolic 78–104; PULSE 106–170; RESP 20–33; TEMP 36.6–36.8; O2SAT 99–100; BMI 25.3; BMI 27.4
--- NOTE | 2025-03-20 10:55 | EX.ED.DYSGE1 ---
HPI History of Present Illness Chief Complaint: Hyperglycemia Narrative Narrative: Patient is a 34-year-old female with past medical history of type 1 diabetes, chronic kidney disease who presents to the emergency department with a concern of going into DKA. Patient states that [place] hours she started not feeling well. She denies any sick contacts. States that today she started developing nausea but no vomiting. Patient otherwise has no complaints. States that her sugars been running in the 200s according to her monitor at home. She states that this is how she normally feels before going into DKA. [facility] Medical History Tachycardia Acidosis, lactic DKA (diabetic ketoacidosis) Overweight (BMI 25.0-29.9) Tobacco abuse Diabetes mellitus type 1, uncontrolled, insulin dependent Stage 3a chronic kidney disease (CKD) Home Medications ?Medication ?Instructions ?Recorded ?Last Taken ?Type insulin aspart U-100 100 unit/mL See Protocol subcut TID PRN 02/02/22 01/11/25 History (3 mL) subcutaneous pen (Novolog Hyperglycemia FlexPen U-100 Insulin aspart) potassium chloride 10 mEq 10 meq PO BID 01/11/25 01/11/25 History capsule,extended release insulin aspart U-100 100 unit/mL 6 unit (0.06 mL) subcut .tidac #15 02/14/25 Unknown Rx (3 mL) subcutaneous pen (Novolog mL FlexPen U-100 Insulin aspart) insulin glargine-yfgn 100 unit/mL 26 unit (0.26 mL) subcut BID 02/14/25 01/11/25 Rx (3 mL) subcutaneous pen diabete #15 mL Allergy/AdvReac Type Severity Reaction Status Date / Time bee venom protein (honey bee) Allergy Anaphylaxis Verified 03/20/25 10:46 Family History Grandmother Diabetes Hypertension Heart disease Grandfather Diabetes Colon cancer Surgical History Hx of tonsillectomy History of partial hysterectomy Social History household members: children current occupational exposures/hazards: No Smoking Status: Current every day smoker tobacco type: cigarettes alcohol intake: current alcohol intake frequency: holidays/special occasions only substance use type: does not use ROS ROS ED ROS Narrative Constitutional: Denies any fevers, chills, headaches, lightness, dizziness Cardiovascular: Denies chest pain or palpitations Respiratory: Denies coughing wheezing shortness of breath Abdomen: Denies abdominal pain vomiting diarrhea complains of nausea : Denies any urinary symptoms Neurological: Denies any numbness, weakness, tingling Musculoskeletal: Denies back pain Skin: Denies any rashes or lesions EXAM Physical Exam Narrative Exam Narrative: General: Patient was lying in bed rest comfortably did not appear to be in acute distress Head: Atraumatic, normocephalic Eyes: PERRL bilaterally, EOMI bilaterally, no conjunctival injection noted Neck: Soft, supple, trachea midline Cardiovascular: Patient tachycardic with a regular rhythm Respiratory: Clear to auscultation bilaterally no rales rhonchi or wheeze noted Abdomen: Soft, nondistended, no tenderness palpation Extremities: +5/5 strength noted in the bilateral upper and lower extremities, radial pulses +2/4 in the bilateral extremities Neurological: Patient follow commands and that she was at [facility] year is 2024 Skin: Warm, dry, tact no rashes or lesions noted Const Vital Signs: 03/20/25 10:45 03/20/25 10:45 03/20/25 11:11 Temperature 98 F Temperature Source Temporal Pulse Rate 140 H 143 H Respiratory Rate 24 H Respiratory Effort Non-Labored Respiratory Pattern Kussmaul Blood Pressure 119/86 H Blood Pressure Mean 97 Pulse Ox 99 Oxygen Delivery Method Room Air 03/20/25 11:45 03/20/25 12:00 03/20/25 13:00 Temperature Temperature Source Pulse Rate 130 H 128 H 122 H Respiratory Rate 33 H 22 H 20 H Respiratory Effort Respiratory Pattern Blood Pressure 138/78 H 147/94 H 148/80 H Blood Pressure Mean 98 111 102 Pulse Ox 99 100 100 Oxygen Delivery Method MDM MDM MDM Narrative Medical decision making narrative: Patient is a 34-year-old female who presented to the emergency department with concern of going into DKA. On the differential diagnose includes but limited to HHS, DKA, hyperglycemia, UTI, upper respiratory infection secondary viral etiology versus viral gastroenteritis. Will once workup is obtained reviewed she will be reevaluated. Patient be given 30 cc/kg bolus of IV fluids which was ordered at 10:49 AM. At this point time do not believe any imaging is warranted as she has no respiratory symptoms to warrant chest x-ray and she has no abdominal pain on exam and her abdomen remains benign therefore do not feel a CT is warranted. Patient CBC reviewed and showed a leukocytosis of 11,000, hemoglobin 15.9, plate count of 463. Patient's venous blood gas showed a pH 7.04. Patient sodium is low indicating hyponatremia although this is likely pseudohyponatremia will at 129 secondary to hyperglycemia. Potation's potassium was 5.2 indicating hyperkalemia, dioxide level low at 3.8 anion gap of 34. Patient glucose 393 she was given 10 units subcutaneous insulin. Patient's AST and ALT are 49 and 34 respectively. Patient lipase was 23 beta-hydroxybutyrate elevated to 12.7. Patient urinalysis reviewed and showed no evidence of infection. Patient test was negative. Urinalysis did not show any evidence infection ketones were noted. Insulin drip was started patient will be discussed with the hospitalist for admission to the ICU. Discussed case with hospitalist Dr. Jackson accept patient for admission. Insulin drip was ordered as well. Discussed plan with patient she is agreeable spinal cord concerns answered Critical care time 47 minutes Lab Data Labs: Laboratory Results - last 24 hr 03/20/25 03/20/25 03/20/25 11:15 11:25 11:30 WBC 11.7 H RBC 5.41 H Hgb 15.9 H Hct 51.8 H MCV 95.7 MCH 29.4 MCHC 30.7 L RDW Std Deviation 49.0 H RDW Coeff of Bret 13.9 Plt Count 463 H MPV 10.2 Immature Gran % (Auto) 0.800 Neut % (Auto) 77.7 H Lymph % (Auto) 15.2 L [place] % (Auto) 5.1 Eos % (Auto) 0.1 Baso % (Auto) 1.1 H Absolute Neuts (auto) 9.1 H Absolute Lymphs (auto) 1.77 Nucleated RBC % 0 Sodium Potassium Chloride Carbon Dioxide Anion Gap BUN Creatinine Estim Creat Clear Calc Est GFR (MDRD) Non-Af BUN/Creatinine Ratio Glucose Lactic Acid Cancelled Calcium Total Bilirubin AST ALT Alkaline Phosphatase Total Protein Albumin Globulin Albumin/Globulin Ratio Lipase b-Hydroxybutyric mmol/L Serum , Qual NEGATIVE Urine Color Urine Clarity Urine pH Ur Specific [place] Urine Protein Urine Glucose (UA) Urine Ketones Urine Occult Blood Urine Nitrite Urine Bilirubin Urine Urobilinogen Ur Leukocyte Esterase Urine RBC Urine WBC Ur Squamous Epith Cells Urine Bacteria Hyaline Casts Fine Granular Casts Coarse Granular Casts Urine Mucus POC Glucose 356 H 03/20/25 03/20/25 03/20/25 12:19 13:16 Unknown WBC RBC Hgb Hct MCV MCH MCHC RDW Std Deviation RDW Coeff of Bret Plt Count MPV Immature Gran % (Auto) Neut % (Auto) Lymph % (Auto) [place] % (Auto) Eos % (Auto) Baso % (Auto) Absolute Neuts (auto) Absolute Lymphs (auto) Nucleated RBC % Sodium 129 L Potassium 5.2 H Chloride 91 L Carbon Dioxide 3.8 L* Anion Gap 34 H BUN 11 Creatinine 1.19 Estim Creat Clear Calc 55.25 Est GFR (MDRD) Non-Af 61 BUN/Creatinine Ratio 9.2 L Glucose 393 H Lactic Acid Calcium 9.2 Total Bilirubin 0.48 AST 49 H ALT 34 Alkaline Phosphatase 98 Total Protein 9.6 H Albumin 5.4 H Globulin 4.2 Albumin/Globulin Ratio 1.3 Lipase 23 b-Hydroxybutyric mmol/L 12.7 H Serum , Qual Urine Color Yellow Urine Clarity Sl. Cloudy Urine pH 5.0 Ur Specific [place] 1.030 Urine Protein 100 H Urine Glucose (UA) 1000 H Urine Ketones 150 A* Urine Occult Blood 250 H Urine Nitrite Negative Urine Bilirubin Negative Urine Urobilinogen Normal Ur Leukocyte Esterase Negative Urine RBC 0-5 SEEN Urine WBC 0-5 SEEN Ur Squamous Epith Cells 0-5 SEEN Urine Bacteria 0 SEEN Hyaline Casts 0-5 SEEN Fine Granular Casts 0-5 SEEN Coarse Granular Casts 10-25 SEEN Urine Mucus 0 SEEN POC Glucose 348 H ABG Data ABG results: ABG 03/20/25 11:11 Specimen Type BETHANY Sample Site Not entered VBG pH 7.04 L* VBG pO2 38 VBG HCO3 6 L VBG Total CO2 7 L VBG O2 Sat (Calc) 51 VBG Base Excess -24 L POC Mix VBG pCO2 Pt Tmp 23.4 L O2 Delivery Device Not entered Crit Call To/Read Back Yes Blood Gas Notified Whom gastelum Blood Gas Notified Time 11:14:07 Discharge Plan Triage Chief Complaint: Hyperglycemia ED Provider: Zoran Gastelum Dx/Rx/DC Orders Clinical Impression: DKA (diabetic ketoacidosis), Kussmaul breathing, Acidosis Prescriptions: No Action insulin aspart U-100 [Novolog FlexPen U-100 Insulin] 100 unit/mL (3 mL) insulin pen See Protocol SUBCUT TID PRN (Reason: Hyperglycemia) Protocol: 6. Sliding Scale Insulin Custom Condition: mg/dl range Dose/Route: Number of Units Condition: 150-199 Dose/Route: 2 Condition: 200-250 Dose/Route: 4 Condition: 251-300 Dose/Route: 6 Condition: 301-349 Dose/Route: 8 Condition: 350-399 Dose/Route: 10 Condition: 400+ Dose/Route: 12 Protocol Text: Custom Sliding Scale potassium chloride 10 mEq capsule, extended release 10 meq PO BID insulin aspart U-100 [Novolog FlexPen U-100 Insulin] 100 unit/mL (3 mL) insulin pen 6 unit subcut .tidac Qty: 15 0RF insulin glargine-yfgn 100 unit/mL (3 mL) Insulin Pen 26 unit subcut BID Qty: 15 0RF Primary Care Provider: Meena Flowers Referrals: Meena Flowers DO [Primary Care Provider] - Print Language: Polish Disposition Disposition: Acute Care [facility]
[2025-03-20] MEDS: 0.9% Normal Saline (1000mL) 1,000 ML 999 ML IV ×2 (11:09→12:39)
[2025-03-20 11:17] LABS: SITE Not entered; Time Given 11:14:07; VBG BASE EXCESS -24 mmol/L (-1.0-3.5); VBG PO2 38 mmHg (25-40); VBG SO2 51 % (50-70); VBG TCO2 7 mmol/L (23-33)
[2025-03-20 11:22] LABS: Hematocrit 51.8 % (37-47); Hemoglobin 15.9 g/dL (12.0-15.0); Immature Granulocytes Count 0.090 X10^3/uL (0.0-0.0); Mean Corp Hgb Conc 30.7 g/dL (32-36); Mean Corpuscular Volume 95.7 fL (81-99); Mean Platelet Vol. 10.2 fl (6.2-12.0); NRBC Flagged by Analyzer 0 % (0-5); Platelet Count 463 K/mm3 (150-450); RBC Distribution Width CV 13.9 % (11.6-14.6); RBC Distribution Width SD 49.0 fl (35.1-43.9); Red Blood Count 5.41 M/mm3 (4.2-5.4); White Blood Count 11.7 K/mm3 (4.4-11.0)
[2025-03-20 11:51] LABS: Internal QC Validated? YES +Cl - CLEAR BKGD; Pregnancy, Serum, hCG Quali. NEGATIVE Negative; Record Kit Lot#, Serum Preg. 0000964736
[2025-03-20 12:28] LABS: Mucous, Urine 0 SEEN /hpf (<or=2+)
[2025-03-20] MEDS: 0.9% Normal Saline (500mL Bag) 500 ML 999 ML IV (12:40)
[2025-03-20 12:52] LABS: BETA-HYDROXYBUTYRATE 12.7 mmol/L (0.0-0.3); Lipase 23 U/L (13-75)
[2025-03-20 13:01] LABS: Color, Urine Yellow (Yellow); Glucose, Dipstick 1000 mg/dl (Normal); Leukocyte Esterase-Dipstick Negative /ul (Negative); Nitrite-Dipstick Negative (Negative); Occult Blood-Urine 250 /ul (Negative); Protein-Dipstick 100 mg/dl (Negative); Specific Gravity, Urine 1.030 (1.002-1.030); Urine Bilirubin Dipstick Negative (Negative)
[2025-03-20 13:03] LABS: Ketone-Dipstick 150 mg/dl (Negative)
[2025-03-20 13:14] LABS: AST(SGOT) 49 U/L (<=31); Alanine Aminotransfer ALT/SGPT 34 U/L (<=34); Albumin, Serum 5.4 g/dL (3.5-5.0); Alkaline Phosphatase 98 U/L (35-104); Anion Gap 34 (5-15); BUN 11 mg/dL (4-19); BUN/Creat Ratio 9.2 RATIO (10-20); Calcium,Total 9.2 mg/dL (7.6-11.0); Carbon Dioxide 3.8 mmol/L (21.0-32.0); Chloride 91 mmol/L (98-108); Estimated Creatinine Clearance 55.25 ml/min (50-250); Globulin 4.2 g/dL (2.2-4.2); Glucose 393 mg/dL (70-99); Potassium 5.2 mmol/L (3.3-5.1)
[2025-03-20 13:20] LABS: Red Blood Cells-Urine 0-5 SEEN /hpf (0-5); Squamous Epithelial Cells - UA 0-5 SEEN /hpf (5-10)
[2025-03-20 13:22] LABS: Fine Granular Cast- Urine 0-5 SEEN /lpf (0-5)
--- NOTE | 2025-03-20 13:38 | PCM.HP.STD ---
HPI - General General Date of Admission: 03/20/25 Date of Service: 03/20/25 Chief Complaint: Nausea/vomiting and concern for DKA HPI Narrative BRETT BOBBY, is a 34 F who presented to [facility] ED on 03/20/2025 with nausea/vomiting. Found to be in DKA. Patient is a poorly controlled type I diabetic and this will be her fourth hospitalization for DKA this year. States that she has an initial appointment with Dr. Kaiser in about a month, has never seen her before. Was a late diabetes diagnosis, was diagnosed at age 30. She is on continuous glucose monitoring. Has never been on insulin pump. She reports her home insulin regimen is Lantus 26 units twice daily and Humalog 10 units with meals plus sliding scale. States she has been taking her insulin as prescribed. States that on [place] the [place] she began to not feel well. Stated her sugars are running in the 200s on her glucose monitor. She then began to have nausea and vomiting and was concerned that she was going into DKA, so she came in today for further evaluation. VBG showed pH 7.04. BMP with sodium 129, potassium 5.2, chloride 91, bicarb 3.8, anion gap 34, creatinine 1.19 (baseline around 0.8), glucose 93. She was given 2.5 L of IV fluids in the ED and was then initiated on an insulin drip. Hospitalist was then contacted for admission. I saw the patient at bedside in the ED. Patient was fatigued appearing and was nauseous but had not vomited since arrival to the ED. She denied any recent illnesses that she is aware of. No other acute concerns currently. Will be admitted for further management. [facility] Medical History Tachycardia Acidosis, lactic DKA (diabetic ketoacidosis) Overweight (BMI 25.0-29.9) Tobacco abuse Diabetes mellitus type 1, uncontrolled, insulin dependent Stage 3a chronic kidney disease (CKD) Home Medications ?Medication ?Instructions ?Recorded ?Last Taken ?Type insulin aspart U-100 100 unit/mL See Protocol subcut TID PRN 02/02/22 01/11/25 History (3 mL) subcutaneous pen (Novolog Hyperglycemia FlexPen U-100 Insulin aspart) potassium chloride 10 mEq 10 meq PO BID 01/11/25 01/11/25 History capsule,extended release insulin aspart U-100 100 unit/mL 6 unit (0.06 mL) subcut .tidac #15 02/14/25 Unknown Rx (3 mL) subcutaneous pen (Novolog mL FlexPen U-100 Insulin aspart) insulin glargine-yfgn 100 unit/mL 26 unit (0.26 mL) subcut BID 02/14/25 01/11/25 Rx (3 mL) subcutaneous pen diabete #15 mL Allergy/AdvReac Type Severity Reaction Status Date / Time bee venom protein (honey bee) Allergy Anaphylaxis Verified 03/20/25 10:46 Family History Grandmother Diabetes Hypertension Heart disease Grandfather Diabetes Colon cancer Surgical History Hx of tonsillectomy History of partial hysterectomy Social History household members: children current occupational exposures/hazards: No Smoking Status: Current every day smoker tobacco type: cigarettes alcohol intake: current alcohol intake frequency: holidays/special occasions only substance use type: does not use ROS Constitutional Constitutional: Reports fatigue and malaise; Denies chills or fever(s) Cardiovascular Cardiovascular: Denies chest pain Respiratory/Chest Respiratory/Chest: Denies shortness of breath at rest Gastrointestinal Gastrointestinal: Reports abdominal pain, nausea and vomiting Musculoskeletal Musculoskeletal: Denies arthralgias or myalgias Vital Signs Vital Signs Vital Signs: 03/20/25 10:45 03/20/25 10:45 03/20/25 11:11 Temperature 98 F Temperature Source Temporal Pulse Rate 140 H 143 H Respiratory Rate 24 H Respiratory Effort Non-Labored Respiratory Pattern Kussmaul Blood Pressure 119/86 H Blood Pressure Mean 97 Pulse Ox 99 Oxygen Delivery Method Room Air 03/20/25 11:45 03/20/25 12:00 03/20/25 13:00 Temperature Temperature Source Pulse Rate 130 H 128 H 122 H Respiratory Rate 33 H 22 H 20 H Respiratory Effort Respiratory Pattern Blood Pressure 138/78 H 147/94 H 148/80 H Blood Pressure Mean 98 111 102 Pulse Ox 99 100 100 Oxygen Delivery Method Weight Weight: 60.9 kg Body Mass Index (BMI) 25.3 Physical Exam Const alert, oriented x3, no apparent distress and average body habitus Constitutional Narrative: Young female, appears older than stated age, fatigued appearing, otherwise sitting back fairly comfortably in bed, conversing normally, in no acute distress. General Appearance: cooperative and comfortable HEENT normocephalic, head/scalp atraumatic, hearing grossly normal bilaterally, nasal mucous membranes and turbinates normal and moist oral mucous membranes Eyes PERRL, EOMs intact bilaterally and conjunctivae normal Neck full ROM Chest inspection of chest normal Resp normal respiratory effort, normal air movement, no use of accessory muscles and clear to auscultation bilaterally Cardio no murmurs and peripheral pulses 2+ throughout Cardio Narrative: Tachycardic, regular rhythm. GI normal to inspection, nondistended, normoactive bowel sounds, soft to palpation, non-tender and non-distended Back/Spine normal ROM Extremity normal to inspection, full ROM and no pedal edema Skin no rashes or lesions noted Psych mental status grossly normal Results Lab / Micro Data 03/20/25 11:15 03/20/25 Unknown Labs: Laboratory Results - last 24 hr 03/20/25 11:15: WBC 11.7 H, RBC 5.41 H, Hgb 15.9 H, Hct 51.8 H, MCV 95.7, MCH 29.4, MCHC 30.7 L, RDW Std Deviation 49.0 H, RDW Coeff of Bret 13.9, Plt Count 463 H, MPV 10.2, Immature Gran % (Auto) 0.800, Neut % (Auto) 77.7 H, Lymph % (Auto) 15.2 L, [place] % (Auto) 5.1, Eos % (Auto) 0.1, Baso % (Auto) 1.1 H, Absolute Neuts (auto) 9.1 H, Absolute Lymphs (auto) 1.77, Nucleated RBC % 0, Lactic Acid Cancelled 03/20/25 11:25: Serum , Qual NEGATIVE 03/20/25 11:30: POC Glucose 356 H 03/20/25 12:19: Urine Color Yellow, Urine Clarity Sl. Cloudy, Urine pH 5.0, Ur Specific [place] 1.030, Urine Protein 100 H, Urine Glucose (UA) 1000 H, Urine Ketones 150 A*, Urine Occult Blood 250 H, Urine Nitrite Negative, Urine Bilirubin Negative, Urine Urobilinogen Normal, Ur Leukocyte Esterase Negative, Urine RBC 0-5 SEEN, Urine WBC 0-5 SEEN, Ur Squamous Epith Cells 0-5 SEEN, Urine Bacteria 0 SEEN, Hyaline Casts 0-5 SEEN, Fine Granular Casts 0-5 SEEN, Coarse Granular Casts 10-25 SEEN, Urine Mucus 0 SEEN 03/20/25 13:16: POC Glucose 348 H 03/20/25 : Sodium 129 L, Potassium 5.2 H, Chloride 91 L, Carbon Dioxide 3.8 L*, Anion Gap 34 H, BUN 11, Creatinine 1.19, Estim Creat Clear Calc 55.25, Est GFR (MDRD) Non-Af 61, BUN/Creatinine Ratio 9.2 L, Glucose 393 H, Calcium 9.2, Total Bilirubin 0.48, AST 49 H, ALT 34, Alkaline Phosphatase 98, Total Protein 9.6 H, Albumin 5.4 H, Globulin 4.2, Albumin/Globulin Ratio 1.3, Lipase 23, b-Hydroxybutyric mmol/L 12.7 H ABG Data ABG results: ABG 03/20/25 11:11 Specimen Type BETHANY Sample Site Not entered VBG pH 7.04 L* VBG pO2 38 VBG HCO3 6 L VBG Total CO2 7 L VBG O2 Sat (Calc) 51 VBG Base Excess -24 L POC Mix VBG pCO2 Pt Tmp 23.4 L O2 Delivery Device Not entered Crit Call To/Read Back Yes Blood Gas Notified Whom [facility] Blood Gas Notified Time 11:14:07 Assessment & Plan Assessment/Plan (1) DKA (diabetic ketoacidosis): PLAN: Plan Patient is a 34-year-old female who presented to [facility] ED on 03/20/2025 with nausea/vomiting and concern for DKA. 1. Recurrent DKA in setting of poorly controlled type 1 diabetes mellitus ? Admit under inpatient status to ICU. Presented with nausea/vomiting. VBG with pH 7.04. Beta-hydroxybutyrate 12.7, anion gap 34, glucose 393. Given 2.5 L of IV fluids in the ED. Orders placed per DKA protocol. Will treat with insulin drip and maintenance IV fluids. Monitor labs every 4 hours. N.p.o. status. Notably this is patient's fourth hospitalization this year for DKA. She apparently has an appointment to establish with Dr. Kaiser in about a month. She is on continuous glucose monitoring. Has never been on insulin pump before. Diagnosed late at age 30 in 2020. She reports compliance with home insulin regimen, though her A1c values have typically been in the 10% range. Will need close outpatient follow-up on discharge. 2. Mild creatinine elevation ? Creatinine 1.19 on admit, baseline around 0.8-0.9. Presume secondary to dehydration from DKA as above. Fluid resuscitation on admit as above, monitor BMP and urine output. 3. Tobacco dependence ? Reports smoking about 10 cigarettes daily. Denied need for nicotine replacement therapy while inpatient. Discussed cessation of discharge. DVT prophylaxis: Lovenox CODE STATUS: Full code, verified Expected disposition: Home, TBD Total clinical time spent by myself addressing the patient's medical issues, reviewing all the data, and collaborating with patient's care team: 58 minutes. Charges/Coding Visit Charges Inpatient E&M: 22866 Init Hosp L2
--- NOTE | 2025-03-20 14:06 | ED.RN ---
1336- subq 15u insulin given. verbal order from to wait 45 min to start insulin drip
[2025-03-20 14:12] LABS: Magnesium 1.8 mg/dL (1.5-2.2)
[2025-03-20 14:17] LABS: Anion Gap 29 (5-15); Carbon Dioxide 3.4 mmol/L (21.0-32.0); Chloride 101 mmol/L (98-108); Potassium 5.3 mmol/L (3.3-5.1)
[2025-03-20] MEDS: Insulin Lispro 100 UNIT in 0.9% Normal Saline (100mL Bag) 99 ML CONT INF (14:56)
[2025-03-20] MEDS: 0.9% Normal Saline (1000mL) 1,000 ML 150 ML IV (15:05)
--- NOTE | 2025-03-20 15:20 | CASEMGMT ---
KWASI RUIZ Assessment Face to Face with patient for initial transition planning/care coordination assessment. KWASI RUIZ introduced self and role at [facility], pt voices understanding. Pt is A&Ox4 and is resting comfortably in bed and is calm. Care providers, pharmacy, and demographics verified. Admitting dx: DKSharri LACJose Strata: 3 PCP: Meena Flowers Specialists: Pt states that her first appt with [facility] is in about a month Preferred Pharmacy: [facility] Insurance: [employer] Prescription Benefit: Yes LNOK: [employer] (Mother) Living Arrangements: Pt lives with her parents and 4 children (Ages 12, 10, 9, & 7) in a 2 story home with 3 steps to enter. ADLs/IADLs: Indep Transportation: Self but does not currently have a license. Pt's mother drives. Denies concerns DME: CBGM and regular BGM with sufficient supplies including pen needles for insulin shots, sensors, test strips, lancets, and EtOH swabs. Denies further concerns or compliancy issues. HHC/SNF: Denies hx or needs Tobacco: Pt states that she smokes a little less than 1/2 pack of cigarettes per day. Denies wanting cessation resources Pt?s goal: Home Plan: Home with pt's family once medically ready and to follow up with endocrinology. Pt states that she feels safe with this plan and denies further questions or concerns. Steff Overton RN, CM
[2025-03-20] MEDS: Dext 5%-0.45% NS 1,000 ML 150 ML IV (17:01)
[2025-03-20 18:54] LABS: Magnesium 2.0 mg/dL (1.5-2.2)
[2025-03-20 18:56] LABS: Anion Gap 27 (5-15); BUN 11 mg/dL (4-19); BUN/Creat Ratio 10.8 RATIO (10-20); Calcium,Total 8.1 mg/dL (7.6-11.0); Carbon Dioxide 3.6 mmol/L (21.0-32.0); Chloride 104 mmol/L (98-108); Estimated Creatinine Clearance 70.34 ml/min (50-250); Glucose 213 mg/dL (70-99); Potassium 4.5 mmol/L (3.3-5.1)
--- NOTE | 2025-03-20 19:18 | EKG12_ITS ---
Test Reason : Blood Pressure : */* mmHG Vent. Rate : 127 BPM Atrial Rate : 127 BPM P-R Int : 146 ms QRS Dur : 74 ms QT Int : 260 ms P-R-T Axes : 77 3 0 degrees QTcB Int : 377 ms Sinus tachycardia Low voltage QRS Cannot rule out Inferior infarct (cited on or before 13-Feb-2025) Abnormal ECG When compared with ECG of 13-Feb-2025 05:53, Questionable change in initial forces of Inferior leads Nonspecific T wave abnormality no longer evident in Anterior leads Confirmed by Sean Torres ([id number]), editorial intern JUANJO COVARRUBIAS ([id number]) on 03/23/2025 1:30:07 PM Referred By: Manuel Confirmed By: Sean Torres
[2025-03-20] MEDS: Potassium Phosphate 45 MM in 0.9% Normal Saline (500mL Bag) 500 ML 85 MM IV (19:58)
[2025-03-20] MEDS: Dext 5%-0.45% NS 1,000 ML 250 ML IV (22:00)
[2025-03-20 22:34] LABS: Magnesium 1.6 mg/dL (1.5-2.2)
[2025-03-20 22:45] LABS: Anion Gap 19 (5-15); BUN 10 mg/dL (4-19); BUN/Creat Ratio 10.2 RATIO (10-20); Calcium,Total 7.6 mg/dL (7.6-11.0); Chloride 109 mmol/L (98-108); Estimated Creatinine Clearance 69.62 ml/min (50-250); Glucose 278 mg/dL (70-99); Potassium 4.4 mmol/L (3.3-5.1)
[2025-03-20 22:53] LABS: Carbon Dioxide 5.4 mmol/L (21.0-32.0)
[2025-03-21] VITALS (13 sets, daily range): BP systolic 102–119; BP diastolic 75–83; PULSE 94–125; RESP 18–23; TEMP 36.5–36.8; O2SAT 100; BMI 27.4; BMI 28.0
[2025-03-21 02:40] LABS: Anion Gap 13 (5-15); BUN 9 mg/dL (4-19); BUN/Creat Ratio 10.4 RATIO (10-20); Calcium,Total 7.4 mg/dL (7.6-11.0); Chloride 112 mmol/L (98-108); Estimated Creatinine Clearance 78.42 ml/min (50-250); Glucose 238 mg/dL (70-99); Potassium 4.0 mmol/L (3.3-5.1)
[2025-03-21 02:48] LABS: Carbon Dioxide 9.2 mmol/L (21.0-32.0)
[2025-03-21] MEDS: Dext 5%-0.45% NS 1,000 ML 150 ML IV (03:07)
[2025-03-21] MEDS: 0.9% Saline Lock 10 ML Syringe IV (03:07)
[2025-03-21 07:36] LABS: Anion Gap 15 (5-15); BUN 9 mg/dL (4-19); BUN/Creat Ratio 10.5 RATIO (10-20); Calcium,Total 7.5 mg/dL (7.6-11.0); Carbon Dioxide 9.2 mmol/L (21.0-32.0); Chloride 111 mmol/L (98-108); Estimated Creatinine Clearance 80.26 ml/min (50-250); Glucose 191 mg/dL (70-99); Potassium 3.2 mmol/L (3.3-5.1)
[2025-03-21 07:55] LABS: Magnesium 1.4 mg/dL (1.5-2.2)
[2025-03-21 08:03] LABS: Hematocrit 36.4 % (37-47); Hemoglobin 12.3 g/dL (12.0-15.0); Mean Corpuscular Volume 88.3 fL (81-99); Mean Platelet Vol. 9.4 fl (6.2-12.0); Platelet Count 279 K/mm3 (150-450); RBC Distribution Width CV 13.5 % (11.6-14.6); RBC Distribution Width SD 44.1 fl (35.1-43.9); Red Blood Count 4.12 M/mm3 (4.2-5.4); White Blood Count 8.3 K/mm3 (4.4-11.0)
[2025-03-21] MEDS: Insulin Lispro 100 UNIT in 0.9% Normal Saline (100mL Bag) 99 ML 7.1 UNIT CONT INF (08:40)
[2025-03-21 08:58] LABS: Mean Corp Hgb Conc 33.8 g/dL (32-36)
[2025-03-21] MEDS: Insulin Glargine-YFGN 100 UNIT/ML Pen 26 UNIT SC (09:07)
--- NOTE | 2025-03-21 10:44 | DS.PCM_ITS ---
Providers Date of Admission: 03/20/25 Primary Care Physician: Dr. Meena Flowers DO Reason For Visit: DKA Diagnosis Discharge Diagnosis (1) DKA (diabetic ketoacidosis): Status: Acute Code(s): E11.10 - Type 2 diabetes mellitus with ketoacidosis without coma Medications at Discharge Home Medications insulin aspart U-100 100 unit/mL (3 mL) subcutaneous pen (Novolog FlexPen U-100 Insulin aspart) See Protocol subcut TID PRN Hyperglycemia 02/02/22 potassium chloride 10 mEq capsule,extended release 10 meq PO BID 01/11/25 insulin aspart U-100 100 unit/mL (3 mL) subcutaneous pen (Novolog FlexPen U-100 Insulin aspart) 6 unit (0.06 mL) subcut .tidac #15 mL 02/14/25 insulin glargine-yfgn 100 unit/mL (3 mL) subcutaneous pen 26 unit (0.26 mL) subcut BID diabete #15 mL 02/14/25 Hospital Course Operations None Procedures None Summary of Care Provided Hospital Course: Patient was a fair earlier this week and was very hot and just was feeling ill with chills. Presented here with DKA. Patient was started on insulin infusion and gap is closed and since has resumed her basal insulin. Patient is good on her diabetic supplies at home and her insulin. Patient has a continuous glucose monitor Physical Exam Const Constitutional Narrative: Up in bed. Nontoxic. Afebrile. Weight / BMI Weight Weight: 67.5 kg Body Mass Index (BMI) 28.0 ABG / Lab / Microbiology Data 03/21/25 07:50 03/21/25 06:07 Laboratory: Laboratory Results - last 24 hr 03/20/25 11:15: WBC 11.7 H, RBC 5.41 H, Hgb 15.9 H, Hct 51.8 H, MCV 95.7, MCH 29.4, MCHC 30.7 L, RDW Std Deviation 49.0 H, RDW Coeff of Bret 13.9, Plt Count 463 H, MPV 10.2, Immature Gran % (Auto) 0.800, Neut % (Auto) 77.7 H, Lymph % (Auto) 15.2 L, [place] % (Auto) 5.1, Eos % (Auto) 0.1, Baso % (Auto) 1.1 H, A bsolute Neuts (auto) 9.1 H, Absolute Lymphs (auto) 1.77, Nucleated RBC % 0, Lactic Acid Cancelled 03/20/25 11:25: Serum , Qual NEGATIVE 03/20/25 11:30: POC Glucose 356 H 03/20/25 11:36: Sodium 129 L, Potassium 5.2 H, Chloride 91 L, Carbon Dioxide 3.8 L*, Anion Gap 34 H, BUN 11, Creatinine 1.19, Estim Creat Clear Calc 55.25, Est GFR (MDRD) Non-Af 61, BUN/Creatinine Ratio 9.2 L, Glucose 393 H, Calcium 9.2, Total Bilirubin 0.48, AST 49 H, ALT 34, Alkaline Phosphatase 98, Total Protein 9.6 H, Albumin 5.4 H, Globulin 4.2, Albumin/Globulin Ratio 1.3, Lipase 23, b- Hydroxybutyric mmol/L 12.7 H 03/20/25 12:19: Urine Color Yellow, Urine Clarity Sl. Cloudy, Urine pH 5.0, Ur Specific [place] 1.030, Urine Protein 100 H, Urine Glucose (UA) 1000 H, Urine Ketones 150 A*, Urine Occult Blood 250 H, Urine Nitrite Negative, Urine Bilirubin Negative, Urine Urobilinogen Normal, Ur Leukocyte Esterase Negative, Urine RBC 0-5 SEEN, Urine WBC 0-5 SEEN, Ur Squamous Epith Cells 0-5 SEEN, Urine Bacteria 0 SEEN, Hyaline Casts 0-5 SEEN, Fine Granular Casts 0-5 SEEN, Coarse Granular Casts 10-25 SEEN, Urine Mucus 0 SEEN 03/20/25 13:16: POC Glucose 348 H 03/20/25 13:40: Sodium 133, Potassium 5.3 H, Chloride 101, Carbon Dioxide 3.4 L* , Anion Gap 29 H, Phosphorus 3.3, Magnesium 1.8 03/20/25 14:55: POC Glucose 314 H 03/20/25 16:11: POC Glucose 270 H 03/20/25 16:58: POC Glucose 232 H 03/20/25 17:55: POC Glucose 202 H 03/20/25 18:00: Sodium 134, Potassium 4.5, Chloride 104, Carbon Dioxide 3.6 L*, Anion Gap 27 H, BUN 11, Creatinine 0.97, Estim Creat Clear Calc 70.34, Est GFR (MDRD) Non-Af 78, BUN/Creatinine Ratio 10.8, Glucose 213 H, Calcium 8.1, P hosphorus 1.4 L*, Magnesium 2.0 03/20/25 18:57: POC Glucose 220 H 03/20/25 20:03: POC Glucose 241 H 03/20/25 21:13: POC Glucose 235 H 03/20/25 21:56: POC Glucose 268 H 03/20/25 22:00: Sodium 134, Potassium 4.4, Chloride 109 H, Carbon Dioxide 5.4 L* , Anion Gap 19 H, BUN 10, Creatinine 0.98, Estim Creat Clear Calc 69.62, Est GFR (MDRD) Non-Af 77, BUN/Creatinine Ratio 10.2, Glucose 278 H, Calcium 7.6, P hosphorus 1.1 L*, Magnesium 1.6 03/20/25 23:05: POC Glucose 245 H 03/21/25 00:03: POC Glucose 249 H 03/21/25 01:05: POC Glucose 242 H 03/21/25 01:57: POC Glucose 214 H 03/21/25 02:00: Sodium 134, Potassium 4.0, Chloride 112 H, Carbon Dioxide 9.2 L* , Anion Gap 13, BUN 9, Creatinine 0.87, Estim Creat Clear Calc 78.42, Est GFR (MDRD) Non-Af 89, BUN/Creatinine Ratio 10.4, Glucose 238 H, Calcium 7.4 L, P hosphorus 2.0 L 03/21/25 03:02: POC Glucose 204 H 03/21/25 04:04: POC Glucose 166 H 03/21/25 05:01: POC Glucose 204 H 03/21/25 05:50: POC Glucose 219 H 03/21/25 06:07: WBC Cancelled, Corrected WBC Cancelled, RBC Cancelled, Hgb Cancelled, Hct Cancelled, MCV Cancelled, MCH Cancelled, MCHC Cancelled, RDW Std Deviation Cancelled, RDW Coeff of Bret Cancelled, Plt Count Cancelled, MPV Cancelled, Diff Path Review Cancelled, Sodium 134, Potassium 3.2 L, Chloride 111 H, Carbon Dioxide 9.2 L*, Anion Gap 15, BUN 9, Creatinine 0.86, Estim Creat Clear Calc 80.26, Est GFR (MDRD) Non-Af 90, BUN/Creatinine Ratio 10.5, Glucose 191 H, Calcium 7.5 L, Phosphorus 1.7 L, Magnesium 1.4 L 03/21/25 06:54: POC Glucose 166 H 03/21/25 06:59: WBC Cancelled, Corrected WBC Cancelled, RBC Cancelled, Hgb Cancelled, Hct Cancelled, MCV Cancelled, MCH Cancelled, MCHC Cancelled, RDW Std Deviation Cancelled, RDW Coeff of Bret Cancelled, Plt Count Cancelled, MPV Cancelled, Diff Path Review Cancelled 03/21/25 07:50: WBC 8.3, RBC 4.12 L, Hgb 12.3, Hct 36.4 L, MCV 88.3 D, MCH 29.9, MCHC 33.8 D, RDW Std Deviation 44.1 H, RDW Coeff of Bret 13.5, Plt Count 279, MPV 9.4 03/21/25 07:53: POC Glucose 99 ABG: ABG 03/20/25 11:11 Specimen Type BETHANY Sample Site Not entered VBG pH 7.04 L* VBG pO2 38 VBG HCO3 6 L VBG Total CO2 7 L VBG O2 Sat (Calc) 51 VBG Base Excess -24 L POC Mix VBG pCO2 Pt Tmp 23.4 L O2 Delivery Device Not entered Crit Call To/Read Back Yes Blood Gas Notified Whom zack Blood Gas Notified Time 11:14:07 D/C Instructions DC O2, CPAP, BIPAP Needs Home O2 Discharge instructions: No Meaningful Use Info Meaningful Use Meaningful Use Diagnoses (Choose all that apply): None applicable Discharge Plan Admission Admit Date/Time: 03/20/25 13:49 Primary Reason for Your Visit: Diabetic ketoacidosis Attending Provider: Douglas Serrano Primary Care Provider: Meena Flowers Consulting Providers: Tanner Jackson Discharge Orders/Prescriptions Prescriptions: Continued insulin aspart U-100 [Novolog FlexPen U-100 Insulin] 100 unit/mL (3 mL) insulin pen See Protocol SUBCUT TID PRN (Reason: Hyperglycemia) Protocol: 6. Sliding Scale Insulin Custom Condition: mg/dl range Dose/Route: Number of Units Condition: 150-199 Dose/Route: 2 Condition: 200-250 Dose/Route: 4 Condition: 251-300 Dose/Route: 6 Condition: 301-349 Dose/Route: 8 Condition: 350-399 Dose/Route: 10 Condition: 400+ Dose/Route: 12 Protocol Text: Custom Sliding Scale potassium chloride 10 mEq capsule, extended release 10 meq PO BID insulin aspart U-100 [Novolog FlexPen U-100 Insulin] 100 unit/mL (3 mL) insulin pen 6 unit subcut .tidac Qty: 15 0RF insulin glargine-yfgn 100 unit/mL (3 mL) Insulin Pen 26 unit subcut BID Qty: 15 0RF Referrals / Follow Up: [facility] [Provider Group] - Within 1 Month Meena Flowers DO [Primary Care Provider] - Within 2 Weeks Disposition Disposition (needs filled in before D/C Order can be placed): Home, Self Care Charges/Coding Visit Charges Inpatient E&M: 27421 Disch Hosp
== END 2025-03-21 12:30 | disposition home or self-care (01) | DRG 420 ==
LOC: ED 13:57 → ICU 14:10
PROVIDERS: Admitting Provider Hospitalist; Emergency Provider Emergency Medicine; PCP Family Medicine
DX: E10.10 Type 1 diabetes mellitus with ketoacidosis without coma (principal); E10.22 Type 1 diabetes mellitus with diabetic chronic kidney disease; N18.31 Chronic kidney disease, stage 3a; Z79.4 Long term (current) use of insulin; F17.210 Nicotine dependence, cigarettes, uncomplicated; Z90.710 Acquired absence of both cervix and uterus; R79.89 Other specified abnormal findings of blood chemistry
CPT/HCPCS: 80048; 80051; 80053; 81001; 82010; 82803; 82962; 83690; 83735; 84100; 84703; 85025; 85027; 87040; 87086; 87088; 93005; 94762; 97803; 99284; A4216; J2405